=== PATIENT | male | born 1940 | race Caucasian/White ===

== ENCOUNTER 2020-02-15 11:50 | Outpatient (CLI) | payer MEDICARE, SELFPAY ==
[2020-02-15 12:54] LABS: Cholesterol 124 mg/dL (0-200); HDL Direct 34 mg/dL; Triglycerides 160 mg/dL (<150)
[2020-02-15 13:05] LABS: LDL Cholesterol Direct 63 mg/dL
[2020-02-15 13:25] LABS: Prostate Specific Antigen 1.3 ng/mL (< OR = 4.0)
== END 2020-02-15 11:51 | disposition home or self-care (01) ==
PROVIDERS: PCP Internal Medicine; Visit Provider Internal Medicine
DX: E78.2 Mixed hyperlipidemia (principal); Z12.5 Encounter for screening for malignant neoplasm of prostate; E11.9 Type 2 diabetes mellitus without complications; R79.9 Abnormal finding of blood chemistry, unspecified
CPT/HCPCS: 36415; 80061; 82542; 83036; 84153; 84443; G0103

== ENCOUNTER 2020-02-18 10:01 | Outpatient (CLI) | payer MEDICARE, SELFPAY ==
--- NOTE | ~2020-02-18 | XR_ITS ---
XR chest 2V DATE: 02/18/2020 10:34 INDICATION: Shortness of breath TECHNIQUE: PA and lateral views COMPARISON: 09/07/2016 2 view chest FINDINGS: Left-sided transvenous pacemaker device with leads overlying right atrium and right ventric le. Status post sternotomy. Heart size appears within normal limits. There is aortic calcification. No hilar or mediastinal enlar gement. No pulmonary infiltrate or consolidation, pleural effusion or pulmonary vascular congestion o r pneumothorax is detected. Degenerative spurring of the thoracic and lumbar spine. IMPRESSION: Status post sternotomy Left-sided pacemaker No active cardiopulmonary disease Reviewed, dictated and finalized at location A.
[2020-02-18 10:33] LABS: Basophils Percent Auto 0.6 % (0.2-1.2); Eosinophils Absolute Auto 0.5 K/mm3 (0-0.3); Eosinophils Percent Auto 7.5 % (0-4.4); Immature Granulocyte Absolute 0.02 K/mm3 (0.00-0.031); Immature Granulocyte Percent A 0.3 % (0-0.5); Lymphocytes Percent Auto 27.2 % (18.3-44.2); Mean Corpuscular HGB Conc 32.5 g/dl (32-36); Mean Corpuscular Hemoglobin 30.9 pg (26-34); Mean Platelet Volume 10.8 fl (7.4-10.4); Monocytes Absolute Auto 0.6 K/mm3 (0.1-0.6); Monocytes Percent Auto 8.9 % (2.6-8.5); Neutrophils Absolute Auto 3.5 K/mm3 (1.3-6.7); Neutrophils Percent Auto 55.5 % (45.5-73.1); Platelet Count Result 204 k/mm3 (150-375); Red Blood Count 4.21 M/mm3 (4.6-6.20); Red Cell Distribution Width 16.3 % (11.5-14.5); White Blood Count 6.3 K/mm3 (4.5-10.0)
[2020-02-18 11:59] LABS: Folic Acid > 20.0 ng/mL (2.76->20); Vitamin B12 > 1000.0 pg/mL (239-931)
== END 2020-02-18 10:02 | disposition home or self-care (01) ==
PROVIDERS: PCP Internal Medicine; Visit Provider Internal Medicine
DX: R06.02 Shortness of breath (principal); J44.9 Chronic obstructive pulmonary disease, unspecified; Z98.890 Other specified postprocedural states; Z95.0 Presence of cardiac pacemaker
CPT/HCPCS: 36415; 71046; 82607; 82746; 85025

== ENCOUNTER 2020-03-10 14:37 | Outpatient (CLI) | payer MEDICARE, SELFPAY ==
--- NOTE | 2020-03-11 13:13 | WPDPFTINT ---
PFT Interpretation PFT Interpretation: DOS: 03/10/2020 REQUESTING: Dr Low REASON FOR TESTING: shortness of breath, COPD PULMONARY FUNCTION TESTS Results are reproducible. Spirometry: FEV1 is 74% mildly decreased, 2.02 L. FVC is 69%, mildly reduced. FEV1% is 69%, normal for age. FFG11-59% is 49%. No bronchodilator was given. Lung volumes: TLC is 84% normal. RV/TLC is increased 45% consistent with mild air trapping. Airway resistance increased 203%. Diffusion: DLCO moderately decreased 49%. Flow volume loop: Abnormal loop with hesitation at the beginning of expiration. This caused the peak to be delayed. The peak is delayed. The inspiratory limb appears normal. IMPRESSION: Mild obstructive ventilatory impairment, mild air trapping, and mild increase in airway resistance with moderate diffusion impairment. No bronchodilator was given. The diffusion impairment is the most significant finding. No prior studies are available for comparison. The decrease in diffusion may be due to COPd or may reflect another process. Clinical correlation is recommended. Vee Abbasi MD
== END 2020-03-10 14:38 | disposition home or self-care (01) ==
PROVIDERS: PCP Internal Medicine; Visit Provider Internal Medicine
DX: R06.02 Shortness of breath (principal); J44.9 Chronic obstructive pulmonary disease, unspecified; R94.2 Abnormal results of pulmonary function studies
CPT/HCPCS: 94375; 94726; 94729

== ENCOUNTER 2020-05-06 17:21 | Emergency (ER) | payer MEDICARE, SELFPAY ==
[2020-05-06 17:29] VITALS: BP 112/94; PULSE 70; RESP 20; TEMP 36.6; O2SAT 96
--- NOTE | 2020-05-06 18:57 | ED.WOUNDLAC ---
HPI - Wound/Laceration General Chief Complaint: Wound/Laceration <SUAD Anderson Last Filed: 05/06/20 18:59> Stated Complaint: knee laceration <SUAD Anderson Last Filed: 05/06/20 18:59> Time Seen by Provider: 05/06/20 17:34 <SUAD Anderson Last Filed: 05/06/20 18:59> Source: patient and family <SUAD Anderson Last Filed: 05/06/20 18:59> Mode of arrival: ambulatory <SUAD Anderson Last Filed: 05/06/20 18:59> Limitations: no limitations <SUAD Anderson Last Filed: 05/06/20 18:59> History of Present Illness HPI narrative: Patient is a 80-year-old male who presents to emergency department with evaluation of laceration to the anterior right knee. Patient notes tetanus up-to-date patient notes mild aching pain patient accidentally cut himself with a sharp knife. Patient notes mild aching pain denies radicular symptoms or paresthesias presents after the incident no distress <SUAD Anderson Last Filed: 05/06/20 18:59> Related Data Home Medications: Home Medications Medication Instructions Recorded Confirmed aspirin 81 mg tablet,delayed 81 mg PO DAILY 08/17/19 03/17/20 release carvedilol 12.5 mg tablet 12.5 mg PO Q12H 08/17/19 03/17/20 cyanocobalamin (vitamin B-12) 1,000 mcg PO DAILY 08/17/19 03/17/20 1,000 mcg capsule folic acid 1 mg tablet 1 mg PO DAILY 08/17/19 03/17/20 hydroxyzine HCl 25 mg tablet 25 mg PO QID PRN 08/17/19 03/17/20 omega-3 fatty acids 1,000 mg 2,000 mg PO BID cap 08/17/19 03/17/20 capsule potassium chloride 10 mEq 10 meq PO DAILY 08/17/19 03/17/20 tablet,extended release simvastatin 40 mg tablet 20 mg PO DAILY tablet 08/17/19 03/17/20 polyethylene glycol 3350 17 17 gm PO DAILY 02/18/20 03/17/20 gram/dose oral powder cholecalciferol (vitamin D3) DAILY 05/06/20 [Vitamin D3] empagliflozin-metformin [Synjardy PO DAILY 05/06/20 XR] umeclidinium-vilanterol [Anoro INHALATION DAILY 05/06/20 Ellipta] <Sean Chahal PA-C - Last Filed: 05/06/20 18:59> Allergies/Adverse Reactions: Allergies Allergy/AdvReac Type Severity Reaction Status Date / Time KATLYN Inhibitors AdvReac Cough Verified 05/06/20 17:55 <Sean Chahal PA-C - Last Filed: 05/06/20 18:59> Review of Systems Review of Systems: All systems reviewed & are unremarkable except as noted in HPI and below <Sean Chahal PA-C - Last Filed: 05/06/20 18:59> [facility] Past Medical History Medical History: Medical History Abnormal finding of blood chemistry BMI 35.0-35.9,adult BMI 36.0-36.9,adult Constipation DM type 2 (diabetes mellitus, type 2) Encounter for Medicare annual wellness exam Encounter for routine adult health examination with abnormal findings Encounter for special screening examination for neoplasm of prostate Esophageal web Numbness and tingling in both hands On nursing home drug therapy Shingles SOB (shortness of breath) <Sean Chahal PA-C - Last Filed: 05/06/20 18:59> Surgical History Surgical History: Surgical History History of lumbar surgery <Sean Chahal PA-C - Last Filed: 05/06/20 18:59> Family History Family History: Family History Mother Family history of diabetes mellitus in first degree relative Father Acute myocardial infarction <Sean Chahal PA-C - Last Filed: 05/06/20 18:59> Social History Social History: Social History Smoking status: Never smoker Alcohol intake: current <Sean Chahal PA-C - Last Filed: 05/06/20 18:59> Exam Narrative: Exam Narrative: GENERAL: Well-appearing, well-nourished, and in no acute distress. HEAD: Normocephalic, atraumatic. EYES: PERRLA and EOMI. ENT: Nares
== END 2020-05-06 19:21 | disposition home or self-care (01) ==
PROVIDERS: Emergency Provider General Practice; PCP Internal Medicine
DX: S81.011A Laceration without foreign body, right knee, initial encounter (principal); Z79.899 Other long term (current) drug therapy; E11.9 Type 2 diabetes mellitus without complications; W26.0XXA Contact with knife, initial encounter
CPT/HCPCS: 12001; 99282

== ENCOUNTER 2020-07-28 13:09 | Outpatient (CLI) | payer MEDICARE, SELFPAY ==
[2020-07-28 13:35] LABS: Basophils Percent Auto 0.5 % (0.2-1.2); Eosinophils Absolute Auto 0.3 K/mm3 (0-0.3); Eosinophils Percent Auto 3.3 % (0-4.4); Hematocrit 42.4 % (42.0-52.0); Hemoglobin 13.5 g/dL (14.0-18.0); Immature Granulocyte Absolute 0.04 K/mm3 (0.00-0.031); Immature Granulocyte Percent A 0.5 % (0-0.5); Lymphocytes Absolute Auto 2.19 K/mm3 (0.9-3.2); Mean Corpuscular HGB Conc 31.8 g/dl (32-36); Mean Corpuscular Hemoglobin 30.5 pg (26-34); Mean Corpuscular Volume 95.9 fl (80-100); Mean Platelet Volume 10.1 fl (7.4-10.4); Monocytes Absolute Auto 0.8 K/mm3 (0.1-0.6); Neutrophils Absolute Auto 5.1 K/mm3 (1.3-6.7); Neutrophils Percent Auto 60.7 % (45.5-73.1); Platelet Count Result 256 k/mm3 (150-375); Red Blood Count 4.42 M/mm3 (4.6-6.20); Red Cell Distribution Width 16.3 % (11.5-14.5); White Blood Count 8.4 K/mm3 (4.5-10.0)
[2020-07-28 13:50] LABS: Alanine Aminotransferase 37 U/L (4-50); Albumin Level 4.5 g/dL (3.5-5.1); Alkaline Phosphatase 95 U/L (38-126); Anion Gap 11 mmol/L (8-16); Aspartate Amino Transferase 33 U/L (17-59); Bilirubin,Total 0.9 mg/dL (0.2-1.3); Blood Urea Nitrogen 38 mg/dL (9-20); Calcium 9.3 mg/dL (8.4-10.2); Carbon Dioxide 30 mmol/L (22-30); Chloride 101 mmol/L (98-107); Cholesterol 152 mg/dL (0-200); Estimated Glomerular Filt Rate 42; Glucose 110 mg/dL (75-110); HDL Direct 58 mg/dL; Potassium 4.5 mmol/L (3.4-5.0); Sodium 142 mmol/L (137-145); Triglycerides 135 mg/dL (<150)
[2020-07-28 14:01] LABS: LDL Cholesterol Direct 71 mg/dL
== END 2020-07-28 13:10 | disposition home or self-care (01) ==
PROVIDERS: PCP Internal Medicine; Visit Provider Internal Medicine
DX: E78.2 Mixed hyperlipidemia (principal); Z79.899 Other long term (current) drug therapy; R09.89 Other specified symptoms and signs involving the circulatory and respiratory systems
CPT/HCPCS: 36415; 80053; 80061; 83036; 85025

== ENCOUNTER 2020-08-15 11:03 | Outpatient (CLI) | payer MEDICARE, SELFPAY ==
[2020-08-15 12:04] LABS: Anion Gap 7 mmol/L (8-16); Blood Urea Nitrogen 31 mg/dL (9-20); Calcium 9.1 mg/dL (8.4-10.2); Carbon Dioxide 32 mmol/L (22-30); Chloride 105 mmol/L (98-107); Estimated Glomerular Filt Rate 45; Glucose 102 mg/dL (75-110); Potassium 4.6 mmol/L (3.4-5.0); Sodium 144 mmol/L (137-145)
== END 2020-08-15 11:04 | disposition home or self-care (01) ==
PROVIDERS: PCP Internal Medicine; Visit Provider Internal Medicine
DX: E11.9 Type 2 diabetes mellitus without complications (principal); I10 Essential (primary) hypertension; Z79.899 Other long term (current) drug therapy
CPT/HCPCS: 36415; 80048

== ENCOUNTER 2020-08-21 11:09 | Outpatient (CLI) | payer MEDICARE, SELFPAY ==
--- NOTE | ~2020-08-21 | XR_ITS ---
EXAMINATION: XR knee RT min 4V DATE: 08/21/2020 11:31 INDICATION: Right knee pain. TECHNIQUE: 4 views of right knee were obtained. COMPARISON: None. FINDINGS: There is varus angulation at the knee. No fracture. There is plate and screw fixation of ti bial diaphysis. There is severe osteoarthritis of medial compartment and mild osteoarthritis of later al and patellofemoral compartments. There is a small knee joint effusion. IMPRESSION: 1. Severe right knee osteoarthritis. 2. Small right knee joint effusion. Reviewed, dictated and finalized at location A. K ASSEMBLER
== END 2020-08-21 11:10 | disposition home or self-care (01) ==
PROVIDERS: PCP Internal Medicine; Visit Provider Internal Medicine
DX: M17.11 Unilateral primary osteoarthritis, right knee (principal); M25.461 Effusion, right knee
CPT/HCPCS: 73564

== ENCOUNTER 2020-09-04 12:25 | Outpatient (CLI) | payer MEDICARE, SELFPAY ==
--- NOTE | ~2020-09-04 | US_ITS ---
EXAMINATION: US venous doppler LE RT DATE: 09/04/2020 12:57 INDICATION: Right lower limb pain. TECHNIQUE: Grayscale ultrasound images without and with compression and Doppler ultrasound images of the right lower extremity veins were obtained. COMPARISON: None. FINDINGS: The visualized portions of right common femoral vein, profunda (deep) femoral vein, femoral vein, pop liteal vein, peroneal veins, posterior tibial veins, and greater saphenous vein outflow are patent. IMPRESSION: 1. No deep venous thrombosis. Reviewed, dictated and finalized at location A. ERTY SITE MANAGER
== END 2020-09-04 12:26 | disposition home or self-care (01) ==
PROVIDERS: PCP Internal Medicine; Visit Provider Internal Medicine
DX: M79.604 Pain in right leg (principal); M79.89 Other specified soft tissue disorders
CPT/HCPCS: 93971

== ENCOUNTER 2020-11-16 09:33 | Outpatient (CLI) | payer MEDICARE, SELFPAY ==
--- NOTE | ~2020-11-16 | US_ITS ---
US venous doppler LE RT DATE: 11/16/2020 10:36 INDICATION: Right lower extremity pain TECHNIQUE: Real-time and color flow imaging and Doppler analysis COMPARISON: 09/21/2020 venous duplex examination of the right lower extremity FINDINGS: Right greater saphenous vein is patent. There is spontaneous and phasic flow and normal augmentation and color flow signal and normal tim jyoti of the veins of the right leg. IMPRESSION: No evidence of deep venous thrombosis of right lower extremity Reviewed, dictated and finalized at Location A. Reviewed, dictated and finalized at location A. FLAT INSPECTOR
== END 2020-11-16 09:34 | disposition home or self-care (01) ==
PROVIDERS: PCP Internal Medicine; Visit Provider Orthopaedic Surgery
DX: M79.604 Pain in right leg (principal); M79.89 Other specified soft tissue disorders
CPT/HCPCS: 93971

== ENCOUNTER 2020-12-16 07:59 | Outpatient (CLI) | payer MEDICARE, SELFPAY ==
[2020-12-16 09:52] LABS: Basophils Percent Auto 0.6 % (0.2-1.2); Eosinophils Absolute Auto 0.4 K/mm3 (0-0.3); Eosinophils Percent Auto 5.7 % (0-4.4); Hematocrit 39.4 % (42.0-52.0); Hemoglobin 12.1 g/dL (14.0-18.0); Immature Granulocyte Absolute 0.01 K/mm3 (0.00-0.031); Immature Granulocyte Percent A 0.1 % (0-0.5); Lymphocytes Absolute Auto 1.87 K/mm3 (0.9-3.2); Lymphocytes Percent Auto 26.8 % (18.3-44.2); Mean Corpuscular HGB Conc 30.7 g/dl (32-36); Mean Corpuscular Hemoglobin 27.9 pg (26-34); Monocytes Absolute Auto 0.6 K/mm3 (0.1-0.6); Monocytes Percent Auto 9.2 % (2.6-8.5); Neutrophils Percent Auto 57.6 % (45.5-73.1); Platelet Count Result 248 k/mm3 (150-375); Red Blood Count 4.33 M/mm3 (4.6-6.20)
[2020-12-16 09:58] LABS: Add Urine Microscopic? YES; Appearance Urine Clear (Clear); Bilirubin Urine Negative (Negative); Blood Urine Negative (Negative); Color Urine Yellow (Yellow); Glucose Urine UA 3+ mg/dL (Negative); Ketones Urine Negative (Negative); Leukocyte Esterase Ur Negative LEU/UL (Negative); Nitrate Urine Negative (Negative); Protein Urine 1+ mg/dL (Negative); RBC Urine 0-2 /hpf (0-2); Specific Grav Ur 1.025 (1.001-1.035); Squamous Epithelial Cell Urine Rare /hpf (Few)
[2020-12-16 10:02] LABS: Albumin Level 4.2 g/dL (3.5-5.1); Anion Gap 8 mmol/L (8-16); Blood Urea Nitrogen 27 mg/dL (9-20); Carbon Dioxide 29 mmol/L (22-30); Chloride 107 mmol/L (98-107); Estimated Glomerular Filt Rate 39; Glucose 129 mg/dL (75-110); Potassium 4.2 mmol/L (3.4-5.0); Sodium 144 mmol/L (137-145); Urine Cotinine NEGATIVE
[2020-12-16 10:03] LABS: Prothrombin Time 13.8 Seconds (11.1-14.7)
[2020-12-16 10:04] LABS: Partial Thromboplastin Time 29.7 SECONDS (22.3-36.8)
[2020-12-16 10:12] LABS: Hemoglobin A1C 5.7 % (<5.7)
== END 2020-12-16 08:00 | disposition home or self-care (01) ==
LOC: ANHSURGERY 08:05
PROVIDERS: PCP Internal Medicine; Visit Provider Orthopaedic Surgery
DX: M17.10 Unilateral primary osteoarthritis, unspecified knee (principal); Z01.818 Encounter for other preprocedural examination
CPT/HCPCS: 80048; 80307; 81001; 82040; 83036; 85025; 85610; 85730; 86850; 86900; 86901; 87081

== ENCOUNTER → 2020-12-20 00:28 | Outpatient (CLI) | payer MEDICARE, SELFPAY ==
[2020-12-20 19:13] LABS: SARS-CoV-2 RNA PCR Negative
== END ==
PROVIDERS: PCP Internal Medicine; Visit Provider Orthopaedic Surgery
DX: Z01.812 Encounter for preprocedural laboratory examination (principal); Z20.822 Contact with and (suspected) exposure to COVID-19
CPT/HCPCS: C9803; U0003; U0005

== ENCOUNTER 2020-12-22 10:04 | Outpatient (CLI) | payer MEDICARE, SELFPAY ==
[2020-12-22 10:41] LABS: Add Urine Microscopic? YES; Appearance Urine Clear (Clear); Bilirubin Urine Negative (Negative); Blood Urine Negative (Negative); Color Urine Yellow (Yellow); Glucose Urine UA 3+ mg/dL (Negative); Ketones Urine Negative (Negative); Leukocyte Esterase Ur Trace LEU/UL (NEGATIVE); Nitrate Urine Negative (Negative); Protein Urine Negative (Negative); RBC Urine 0-2 /hpf (0-2); Specific Grav Ur 1.016 (1.001-1.035); Squamous Epithelial Cell Urine Rare /hpf (Few); Urobilinogen Urine Negative mg/dL (<2.0)
[2020-12-22 10:51] LABS: Albumin Level 4.2 g/dL (3.5-5.1); Anion Gap 7 mmol/L (8-16); Blood Urea Nitrogen 25 mg/dL (9-20); Calcium 8.9 mg/dL (8.4-10.2); Carbon Dioxide 28 mmol/L (22-30); Chloride 106 mmol/L (98-107); Estimated Glomerular Filt Rate 53; Glucose 127 mg/dL (75-110); Phosphorus 2.8 mg/dL (2.5-4.5); Sodium 141 mmol/L (137-145)
== END 2020-12-22 10:05 | disposition home or self-care (01) ==
PROVIDERS: PCP Internal Medicine; Referring Provider Internal Medicine; Visit Provider Internal Medicine Nephrology
DX: N18.31 Chronic kidney disease, stage 3a (principal)
CPT/HCPCS: 36415; 80069; 81001

== ENCOUNTER 2020-12-23 00:05 | Day surgery (SDC) | payer MEDICARE, SELFPAY ==
[2020-12-16 08:49] VITALS: BMI 37.0
--- NOTE | 2020-12-22 09:32 | WPDANESEPPF ---
Anes - Initial Pre Proc Eval Procedure: Operation Date: 12/23/20 07:30 Proposed Procedures p Right Total Knee Arthroplasty - William Oshea MD Date/Time: 12/22/20 09:32 Surgeon: William Oshea MD Pre Op Diagnosis: Right Knee DJD Patient Data Age: 80 Gender: M Height: 1.74 m Weight: 112 kg Allergies Allergy/AdvReac Type Severity Reaction Status Date / Time KATLYN Inhibitors AdvReac Mild Cough Verified 12/23/20 06:40 Home Medications Medication Instructions Recorded Confirmed Type aspirin 81 mg tablet,delayed 81 mg PO QAM 08/17/19 12/23/20 History release omega-3 fatty acids 1,000 mg 2,000 mg PO BID cap 08/17/19 12/23/20 History capsule cholecalciferol (vitamin D3) 125 mcg QAM 05/06/20 12/23/20 History [Vitamin D3] fluticasone fur. 100 mcg-umeclid 1 inh INHALATION Q24H #60 ea 08/15/20 12/23/20 Rx 62.5 mcg-vilant 25 mcg inhalat.powder carvedilol 25 mg tablet 25 mg PO Q12H #180 tablet 09/04/20 12/23/20 Rx omeprazole 40 mg capsule,delayed 40 mg PO QAM cap 09/04/20 12/23/20 History release jxjcrjxi-hjp-edbot acid 0.4 1 tablet PO DAILY 09/18/20 12/23/20 History mg-lycopene 300 mcg-lutein 250 mcg tablet sildenafil 100 mg tablet See Rx Instructions .ROUTE 11/03/20 12/23/20 Rx .COMPLEX #8 tablet furosemide 40 mg tablet 40 mg PO QAM #90 tablet 11/28/20 12/23/20 Rx canagliflozin 100 mg tablet 100 mg PO DAILY 12/15/20 12/23/20 History metformin 500 mg tablet 500 mg PO QAM 12/15/20 12/23/20 History allopurinol 150 mg PO QAM 12/16/20 12/23/20 History losartan 100 mg QAM 12/16/20 12/23/20 History potassium citrate 1,620 mg PO QAM 12/16/20 12/23/20 History simvastatin 20 mg PO QAM 12/16/20 12/23/20 History tamsulosin 0.4 mg QAM 12/16/20 12/23/20 History tramadol 50 mg tablet 50 mg PO Q6H PRN #60 tablet 12/18/20 12/23/20 Rx Patient hx anesthesia problems: none Family hx anesthesia problems: none [facility] Past Medical History Medical History Abnormal finding of blood chemistry BMI 34.0-34.9,adult BMI 35.0-35.9,adult BMI 35.0-35.9,adult BMI 36.0-36.9,adult CKD (chronic kidney disease) Claustrophobia Constipation Degenerative joint disease of knee DM type 2 (diabetes mellitus, type 2) Edema of right lower extremity Encounter for long-term (current) use of other medications Encounter for Medicare annual wellness exam Encounter for routine adult health examination with abnormal findings Encounter for special screening examination for neoplasm of prostate Erectile dysfunction Esophageal web Follow up Hearing loss Knee effusion, right Numbness and tingling in both hands On nursing home drug therapy Pain and swelling of right lower extremity Right knee pain Shingles SOB (shortness of breath) Surgical History Surgical History (Updated 12/22/20 @ 09:45 by Kumar Cunha DO) History of lumbar surgery History of permanent cardiac pacemaker placement Hx of CABG x4, 2003 Family History Family History Mother Family history of diabetes mellitus in first degree relative Father Acute myocardial infarction Other Diabetes mellitus Heart disease Hypertension Social History Social History Smoking packs per day: 2 Smoking cigarettes per day: 40.0 Years smoked: 10 Smoking pack-years: 20.00 Smoking status: Former smoker Tobacco type: cigarettes Second hand tobacco smoke exposure: No Additional smoking assessment comments: Quit @ 43 yrs old. Alcohol intake: former Alcohol use details: STOPPED DRINKING 2013 Substance use: never Substance use type: does not use Living arrangements: with friend(s) Gender identity (if verbalized by the patient): Male Spiritual care concerns: No Anes - Eval Final PreProcedure Day of Procedure 12/22/20 09:32 Patient weight: obese Hea
--- NOTE | 2020-12-22 13:06 | WPDANESPNB ---
Anes - Peripheral Nerve Block Date/Time: 12/22/20 13:06 I have discussed with the patient/family/POA the placement of a peripheral nerve block for post-operative pain management, including associated risks, benefits, complications, and side effects. Alternative methods of post-operative analgesia were detailed. Questions were solicited and answers provided to the satisfaction of the patient/family/POA. Time-Out: A pre-procedural Time-Out was completed immediately before starting the procedure and confirmed: Patient Identification, Site, Procedure, Patient Position and the Availability of Requisite Equipment. Clinical Indications: Acute post-operative pain management requested by the operative surgeon. Nerve Block Insertion Note Anes-nerve block: adductor canal right Patient position: supine Skin prep: chlorhexidine Needle: 22 gauge, stimulating, insulated echogenic needle. Needle length: 80 mm Technique: ultrasound Injectate: bupivacaine 0.5% with epi 5 mcg/ml (30cc - no epi) Observations: tolerated well Complications: none Procedure start time:: 729 Procedure end time:: 732
[2020-12-23] VITALS (12 sets, daily range): BP systolic 129–162; BP diastolic 60–82; PULSE 8–86; RESP 11–20; TEMP 36.3–37.1; O2SAT 93–99
--- NOTE | ~2020-12-23 | XR_ITS ---
EXAMINATION: XR knee RT 2V DATE: 12/23/2020 11:29 INDICATION: Postoperative evaluation following right total knee arthroplasty. TECHNIQUE: Anteroposterior and lateral views of the right knee were obtained. COMPARISON: None. FINDINGS: Right total knee arthroplasty without patellar resurfacing appears well seated and in near anatomic a lignment. No fractures identified. Skin jazmín and expected postoperative subcutaneous and intra-ar ticular gas. Atherosclerotic calcific a cyst along the distal femoral artery. IMPRESSION: 1. Right total knee arthroplasty, negative for postoperative purposes. Reviewed, dictated and finalized at location A.
[2020-12-23] MEDS: ACETAMINOPHEN 500 MG TABLET 1000 MG PO (06:52)
[2020-12-23] MEDS: LACTATED RINGERS 1,000 ML 30 ML IV CONT ×2 (07:03→11:13)
[2020-12-23] MEDS: TRANEXAMIC ACID 1,000MG/ISO100 1,000 MG/100 ML BAG 200 MG IVPB (07:04)
[2020-12-23 07:08] LABS: Glucose Point of Care 136 (65-105)
--- NOTE | 2020-12-23 07:23 | WPDHPUPDATE1 ---
History and Physical Update Update Date/Time: 12/23/20 07:23 History and Physical has been reviewed, including an updated exam of the patient. There are NO changes in the patient's condition. Risks, benefits, and alternatives have been discussed and questions answered. Patient agrees to proceed with procedure.
[2020-12-23] MEDS: ceFAZolin 2 GM/D5W 50 ML 2 GM/50 ML BAG IVPB ×3 (07:43→23:00)
[2020-12-23] MEDS: GENTAMICIN BONE CEMENT REFOBACIN 1 EACH TOPICAL (09:27)
--- NOTE | 2020-12-23 11:08 | PM.PROC ---
Procedure Note - Detailed Date of procedure: 12/23/20 Pre-op diagnosis: Right Knee DJD Post-op diagnosis: same Procedure performed: R TKA Description of procedure: THE RIGHT KNEE WAS PREPPED AND DRAPED IN THE STERILE FASHION. A MIDLINE SKIN INCISION WAS MADE. A MEDIAL PARAPATELLAR ARTHROTOMY WAS MADE. THE PATELLA WAS EVERTED. THERE WAS TRICOMPARTMENT DJD. THERE WAS MINIMAL PATELLA DJD. AN INTRAMEDULLARY SUNDAY WAS PLACED IN THE FEMUR. A DISTAL FEMORAL CUT WAS MADE IN 5 DEGREES OF VALGUS REMOVING APPROXIMATELY 9 MM OF BONE FROM THE DISTAL FEMUR. THE FEMUR WAS SIZED TO 70. A 70 FEMORAL CUTTING BLOCK WAS PLACED IN 3 DEGREES OF EXTERNAL ROTATION AND IN ALIGNMENT WITH LUIS'S LINE AND THE TRANSEPICONDYLAR AXIS. ANTERIOR POSTERIOR AND CHAMFER CUTS WERE MADE. THE CUTS WERE EXCELLENT. NEXT AN INTRAMEDULLARY CUTTING GUIDE WAS PLACED IN THE TIBIA. A TRANS TIBIAL CUT WAS MADE ALONG THE LONG AXIS OF THE TIBIA. APPROXIMATELY 10 MM OF BONE WAS REMOVED FROM THE HIGH SIDE OF THE TIBIA. THE TIBIA WAS THEN PLANED TO A SMOOTH SURFACE. POSTERIOR FEMORAL OSTEOPHYTES WERE REMOVED FROM THE FEMORAL CONDYLES. An 83 TIBIAL TRIAL WAS PLACED IN ALIGNMENT WITH THE 1/3 MEDIAL ASPECT OF THE TIBIAL TUBERCLE. THEN A 70 FEMORAL TRIAL COMPONENT WAS PLACED. BOTH HAD EXCELLENT FITS. EVENTUALLY A 10MM POLYETHYLENE TRIAL COMPONENT WAS PLACED. THE KNEE WAS TAKEN THROUGH A RANGE OF MOTION. THE KNEE CAME OUT TO FULL EXTENSION. THERE WAS NO ABNORMAL TILT TO THE PATELLA. THERE WAS GOOD A/P AND VARUS/VALGUS STABILITY. THERE WAS NO EXCESSIVE ROLL BACK WITH FLEXION. THE TRIAL COMPONENTS WERE REMOVED. THEN A 70 FEMORAL COMPONENT AND 83 TIBIAL COMPONENT WITH A 10 CR POLYETHYLENE COMPONENT WERE CEMENTED INTO PLACE. THE IMPLANTS WERE FLUSH WITH THE CUT BONE SURFACES. THE KNEE WAS TAKEN THROUGH A ROM AGAIN AND FOUND TO BE STABLE WITH NO PATELLA TILT NO EXCESSIVE ROLL BACK WITH FLEXION AND GOOD STABILITY WITH COMPLETE AND FULL EXTENSION. THE KNEE WAS IRRIGATED WITH STERILE BETADINE AND WATER FOR ABOUT 3 MINUTES. THE BLEEDERS WERE CAUTERIZED. THE ARTHROTOMY WAS REPAIRED WITH NUMBER 1 VICRYL. THE SUB CUTANEOUS LAYER WITH 2-0 VICRYL AND THE SKIN WITH SARAH BETH. THE WOUND WAS WASHED AND A STERILE DRESSING WAS APPLIED. PATIENT WAS EXTUBATED. Anesthesia: GETA Surgeon: William Oshea MD Estimated blood loss (mL): 100 Complications: No immediate complications Condition: stable Disposition: PACU
--- NOTE | 2020-12-23 11:42 | SUR.PHASEI ---
PORTABLE XRAY DONE OF RIGHT KNEE.
--- NOTE | 2020-12-23 12:36 | ADMGEN ---
This patient, Drew Pak, was admitted to 2 Medical Room 249-01. Patient/family oriented to hospital policies and general routines including ID bracelet, bed and alarms, visiting hours, pain management, procedures, bathroom and other care routines, personal items, smoking policy, room service/diet, and visiting hours. Information on how to activate the Rapid Response Team has been discussed. Patient/Family are encouraged to report perceived risks to care and to ask questions if they do not understand what they are told or what they should do.
[2020-12-23 13:51] LABS: Glucose Point of Care 134 (65-105)
--- NOTE | 2020-12-23 14:00 | WPDCN ---
Assessment and Plan Assessment and plan (1) Degenerative joint disease of right knee: Code(s): M17.11 - Unilateral primary osteoarthritis, right knee Status: Acute Assessment and Plan: Postoperative day 0, status post right total knee arthroplasty. Wound care and pain control will be deferred to Dr. Oshea as well as DVT prophylaxis. (2) Essential hypertension: Code(s): I10 - Essential (primary) hypertension Status: Acute Assessment and Plan: Blood pressures were reviewed postoperatively and they have been a bit high, in the 140s to 160 systolic. Likely these are elevated postoperatively due to pain and missed antihypertensives this morning. Resume antihypertensives and monitor blood pressures closely. (3) Mixed hyperlipidemia: Code(s): E78.2 - Mixed hyperlipidemia Status: Acute Assessment and Plan: Continue statin check LFTs. (4) Coronary artery disease: Code(s): I25.10 - Atherosclerotic heart disease of [place] coronary artery without angina pectoris Status: Acute Assessment and Plan: Status post three-vessel bypass in 2003. No acute issues. Continue statin, aspirin, and beta-tri. (5) Type 2 diabetes mellitus: Code(s): E11.9 - Type 2 diabetes mellitus without complications Status: Acute Assessment and Plan: Well controlled with a recent hemoglobin A1c of 5.7%. Continue Farxiga and metformin. Initiate sliding scale insulin, Accu-Cheks, and hypoglycemic protocol. (6) Diastolic congestive heart failure: Code(s): I50.30 - Unspecified diastolic (congestive) heart failure Status: Acute Assessment and Plan: The patient appears euvolemic at this time. Avoid over-hydration. Monitor volume status with I/O and daily weights. (7) Benign prostatic hyperplasia: Code(s): N40.0 - Benign prostatic hyperplasia without lower urinary tract symptoms Status: Acute Assessment and Plan: No issues at this time. Continue tamsulosin. Monitor for postop retention. (8) Gastroesophageal reflux disease: Code(s): K21.9 - Gastro-esophageal reflux disease without esophagitis Status: Acute Assessment and Plan: Continue omeprazole. Additional Plan Thank you for allowing us to participate in this patient's care. Please do not hesitate to contact us with any questions. Supervising physician for this medical consultation is Dr. Sara Solares. HPI Data of Consult Date/Time: 12/23/20 14:00 Requesting Physician: William Oshea MD Primary Care Provider: Say Low MD Consult Narrative Narrative: This is a 80-year-old male whom the hospitalist service has been consulted for management of his medical conditions, status post right total knee arthroplasty. His history significant for degenerative joint disease, coronary artery disease status post CABG, diastolic congestive heart failure, hypertension, dyslipidemia, well controlled yga-ssuencb-kzeauetty diabetes, GERD, and benign prostatic hyperplasia. Sometime last year the patient had 2 lumbar surgeries not long thereafter he began experiencing right knee pain. His arthritis progressed quite quickly over the last 3 to 4 months and unfortunately conservative outpatient treatment has not provided him with longstanding relief and thus he elected for replacement today. His surgery was performed under general anesthesia with no immediate complications documented an estimated blood loss of 100 milliliters. Patient tells me that he received a nerve block and that his pain has been well controlled. Currently rating at 3/10 mainly along the incision. He has been up to the chair and really is only having pain with bending the knee. He denies paresthesias, skin color, temperature changes distal to the surgical site. No postoperative fever, chills, sweats, chest pain,
[2020-12-23] MEDS: oxyCODONE/ACETAMINOPHEN (*CRX) 5-325 MG TABLET 1 TABLET PO (15:58)
[2020-12-23] MEDS: CELECOXIB 200 MG CAPSULE PO (15:58)
[2020-12-23] MEDS: DOCUSATE SODIUM 100 MG CAPSULE PO (15:58)
[2020-12-23] MEDS: carvediloL 25 MG TABLET PO (20:32)
[2020-12-24] MEDS: oxyCODONE/ACETAMINOPHEN (*CRX) 5-325 MG TABLET 1 TABLET PO ×2 (00:40→07:42)
[2020-12-24 02:07] VITALS: BP 166/66; PULSE 105; RESP 16; TEMP 36.7; O2SAT 92
[2020-12-24 05:24] VITALS: BP 132/64; PULSE 66; RESP 16; TEMP 36.3; O2SAT 96
[2020-12-24 05:44] LABS: Basophils Percent Auto 0.2 % (0.2-1.2); Eosinophils Percent Auto 0.2 % (0-4.4); Hematocrit 35.8 % (42.0-52.0); Hemoglobin 11.2 g/dL (14.0-18.0); Immature Granulocyte Absolute 0.05 K/mm3 (0.00-0.031); Immature Granulocyte Percent A 0.5 % (0-0.5); Lymphocytes Absolute Auto 1.42 K/mm3 (0.9-3.2); Lymphocytes Percent Auto 12.9 % (18.3-44.2); Mean Corpuscular HGB Conc 31.3 g/dl (32-36); Mean Corpuscular Hemoglobin 28.2 pg (26-34); Mean Corpuscular Volume 90.2 fl (80-100); Mean Platelet Volume 10.6 fl (7.4-10.4); Monocytes Absolute Auto 1.2 K/mm3 (0.1-0.6); Monocytes Percent Auto 11.3 % (2.6-8.5); Neutrophils Absolute Auto 8.2 K/mm3 (1.3-6.7); Neutrophils Percent Auto 74.9 % (45.5-73.1); Platelet Count Result 210 k/mm3 (150-375); Red Blood Count 3.97 M/mm3 (4.6-6.20); Red Cell Distribution Width 15.6 % (11.5-14.5)
[2020-12-24 05:59] LABS: Alanine Aminotransferase 17 U/L (4-50); Albumin Level 3.7 g/dL (3.5-5.1); Alkaline Phosphatase 62 U/L (38-126); Anion Gap 6 mmol/L (8-16); Aspartate Amino Transferase 25 U/L (17-59); Bilirubin,Total 0.8 mg/dL (0.2-1.3); Blood Urea Nitrogen 23 mg/dL (9-20); Calcium 8.6 mg/dL (8.4-10.2); Carbon Dioxide 27 mmol/L (22-30); Chloride 104 mmol/L (98-107); Estimated CRCL calculation 50 ml/min; Estimated Glomerular Filt Rate 53; Glucose 131 mg/dL (75-110); Magnesium 1.9 mg/dL (1.6-2.3); Potassium 3.8 mmol/L (3.4-5.0); Sodium 137 mmol/L (137-145)
[2020-12-24] MEDS: ceFAZolin 2 GM/D5W 50 ML 2 GM/50 ML BAG IVPB (06:47)
--- NOTE | 2020-12-24 07:49 | P.PNAN_ITS ---
Anes - Prog Note Post-Op Date/Time: 12/24/20 07:49 Cardiovascular status: normal Respiratory status: normal Airway patency: baseline Mental status: baseline Post-Op hydration status: normal Vital Signs: Last Vital Signs Temp 97.3 F L 12/24/20 05:24 Pulse 66 12/24/20 05:24 Resp 16 12/24/20 05:24 BP 132/64 12/24/20 05:24 Pulse Ox 96 12/24/20 05:24 Pain Score (VAS): 10/12 I/O: Intake & Output 12/23/20 12/23/20 12/24/20 15:59 23:59 07:59 Intake Total 1750 600 300 Output Total 450 750 Balance 1750 150 -450 Laboratory Tests 12/24/20 05:18 12/24/20 05:18 12/23/20 12/24/20 12/24/20 11:30 05:18 05:18 WBC 11.0 H RBC 3.97 L Hgb 11.2 L Hct 35.8 L MCV 90.2 MCH 28.2 MCHC 31.3 L RDW 15.6 H Plt Count 210 MPV 10.6 H Immature Gran % (Auto) 0.5 Neut % (Auto) 74.9 H Lymph % (Auto) 12.9 L [place] % (Auto) 11.3 H Eos % (Auto) 0.2 Baso % (Auto) 0.2 Lymph # (Auto) 1.42 [place] # (Auto) 1.2 H Eos # (Auto) 0.0 Baso # (Auto) 0.0 Abs Immat Gran (auto) 0.05 H Absolute Neuts (auto) 8.2 H Absolute Nucleated RBC 0.0 Nucleated RBC % 0.0 Sodium 137 Potassium 3.8 Chloride 104 Carbon Dioxide 27 Anion Gap 6 L BUN 23 H Creatinine 1.30 Estim Creat Clear Calc 50 Estimated GFR 53 L Glucose 131 H POC Capillary Glucose 134 H Calcium 8.6 Magnesium 1.9 Total Bilirubin 0.8 Direct Bilirubin 0.0 AST 25 ALT 17 Alkaline Phosphatase 62 Total Protein 6.0 L Albumin 3.7 Post-procedural complaints: none Patient Feedback: Patient satisfied with anesthetic care.
[2020-12-24] MEDS: CHOLECALCIFEROL 1,000 UNITS TABLET 5000 UNITS PO (08:02)
[2020-12-24] MEDS: FUROSEMIDE 40 MG TABLET PO (08:03)
[2020-12-24] MEDS: CELECOXIB 200 MG CAPSULE PO (08:03)
[2020-12-24] MEDS: CANAGLIFLOZIN 100 MG TABLET PO (08:03)
[2020-12-24] MEDS: ASPIRIN 325 MG ENTERIC TABLET 650 MG PO (08:03)
[2020-12-24] MEDS: SIMVASTATIN 20 MG TABLET PO (08:04)
[2020-12-24] MEDS: carvediloL 25 MG TABLET PO (08:04)
[2020-12-24] MEDS: DOCUSATE SODIUM 100 MG CAPSULE PO (08:04)
[2020-12-24] MEDS: allopurinoL 150 MG TABLET PO (08:04)
[2020-12-24] MEDS: metFORMIN HCL 500 MG TABLET PO (08:04)
[2020-12-24] MEDS: LOSARTAN POTASSIUM 100 MG TABLET PO (08:04)
[2020-12-24] MEDS: PANTOPRAZOLE 40 MG TABLET PO (08:04)
[2020-12-24] MEDS: TAMSULOSIN HCL 0.4 MG CAPSULE PO (08:04)
[2020-12-24] MEDS: FLUTICASONE/UMECLIDIN/VILANTER 100-62.5-25 MCG ELLIPTA 1 PUFF INHALATION (08:05)
[2020-12-24 09:54] VITALS: O2SAT 94
[2020-12-24 10:00] VITALS: BP 112/61; PULSE 68; RESP 16; TEMP 37.2; O2SAT 92
--- NOTE | 2020-12-24 11:17 | PM.IMPN ---
Subjective Date/time seen: 12/24/20 11:17 Review of Systems Review of Systems: Narrative: Objective Data Vital Signs Vital Signs: Vital Signs - 24 hr 12/23/20 11:25 12/23/20 11:40 12/23/20 11:55 Temperature Pulse Rate 79 77 76 Respiratory Rate 11 L 12 20 Blood Pressure 162/72 H 150/70 H 153/70 H Pulse Oximetry 99 95 96 12/23/20 12:10 12/23/20 12:40 12/23/20 12:55 Temperature 97.5 F L 97.6 F 97.5 F L Pulse Rate 71 77 79 Respiratory Rate 11 L 12 12 Blood Pressure 148/71 H 129/82 154/65 H Pulse Oximetry 96 93 93 12/23/20 13:25 12/23/20 14:25 12/23/20 20:32 Temperature 98.7 F 97.6 F Pulse Rate 85 86 80 Respiratory Rate 18 12 Blood Pressure 142/71 H 140/69 Pulse Oximetry 93 95 12/23/20 22:00 12/24/20 02:07 12/24/20 05:24 Temperature 97.4 F L 98.0 F 97.3 F L Pulse Rate 8 L 105 H 66 Respiratory Rate 16 16 16 Blood Pressure 133/68 166/66 H 132/64 Pulse Oximetry 97 92 96 12/24/20 09:54 12/24/20 10:00 Temperature 99.0 F Pulse Rate 68 Respiratory Rate 16 Blood Pressure 112/61 Pulse Oximetry 94 92 Intake/Output Intake/Output: Intake & Output 12/21/20 12/22/20 12/23/20 12/24/20 23:59 23:59 23:59 23:59 Intake Total 2450 540 Output Total 450 750 Balance 1999 - Meds/Results Medications: Active Medications Generic Name Dose Route Start Last Admin Trade Name Freq PRN Reason Stop Dose Admin Acetaminophen 1,000 mg 12/23/20 12:22 Acetaminophen 500 Mg Tablet PO Q6H PRN Pain Rated 1-3 Allopurinol 150 mg 12/24/20 09:00 12/24/20 08:04 Allopurinol 150 Mg Tablet PO 150 mg QAM INGRID Administration Aspirin 650 mg 12/24/20 09:00 12/24/20 08:03 Aspirin 325 Mg Enteric Tablet PO 650 mg DAILY INGRID Administration Canagliflozin 100 mg 12/24/20 09:00 12/24/20 08:03 Canagliflozin 100 Mg Tablet PO 100 mg DAILY INGRID Administration Carvedilol 25 mg 12/23/20 21:00 12/24/20 08:04 Carvedilol 25 Mg Tablet PO 25 mg Q12HR INGRID Administration Celecoxib 200 mg 12/23/20 17:00 12/24/20 08:03 Celecoxib 200 Mg Capsule PO 200 mg BIDWM INGRID Administration Diazepam 5 mg 12/23/20 12:22 Diazepam (*Crx) 5 Mg Tablet PO Q8H PRN Spasms Diphenhydramine HCl 25 mg 12/23/20 12:22 Diphenhydramine Hcl Inj 50 Mg/Ml Vial IV PUSH Q6H PRN Itching Docusate Sodium 100 mg 12/23/20 17:00 12/24/20 08:04 Docusate Sodium 100 Mg Capsule PO 100 mg BID INGRID Administration Fluticasone/Umeclidinium/Vilanterol 1 puff 12/24/20 08:00 12/24/20 08:05 Fluticasone/Umeclidin/Vilanter 100-62.5-25 Mcg Ellipta INHALATION 1 puff DAILY@0800 INGRID Administration Furosemide 40 mg 12/24/20 09:00 12/24/20 08:03 Furosemide 40 Mg Tablet PO 40 mg QAM INGRID Administration Losartan Potassium 100 mg 12/24/20 09:00 12/24/20 08:04 Losartan Potassium 100 Mg Tablet PO 100 mg QAM INGRID Administration Metformin HCl 500 mg 12/24/20 08:00 12/24/20 08:04 Metformin Hcl 500 Mg Tablet PO 500 mg DAILY@0800 INGRID Administration Naloxone HCl 0.1 mg 12/23/20 12:22 Naloxone Hcl 0.4 Mg/Ml Vial IV PUSH Q2M PRN Opiate Reversal Ondansetron HCl 4 mg 12/23/20 12:22 Ondansetron Inj 4 Mg/2 Ml Vial IV PUSH Q4H PRN Nausea And Vomiting Oxycodone HCl 7.5 mg 12/23/20 12:22 Oxycodone Hcl (*Crx) 2.5 Mg Tab Ir PO Q4H PRN Pain Rated 7-10 Oxycodone/Acetaminophen 1 tablet 12/23/20 12:22 12/24/20 07:42 Oxycodone/Acetaminophen (*Crx) 5-325 Mg Tablet PO 1 tablet Q4H PRN Administration Pain Rated 4-6 Pantoprazole Sodium 40 mg 12/24/20 09:00 12/24/20 08:04 Pantoprazole 40 Mg Tablet PO 40 mg QAM INGRID Administration Simvastatin 20 mg 12/24/20 09:00 12/24/20 08:04 Simvastatin 20 Mg Tablet PO 20 mg QAM INGRID Administration Tamsulosin HCl 0.4 mg 12/24/20 09:00 12/24/20 08:04 Tamsulosin Hcl 0.4 Mg Capsule PO 0.4 mg QAM INGRID Administration Vit
--- NOTE | 2020-12-24 13:18 | PM.PNORT ---
Progress Note: A&P Additional Plan POD 1 DOING WELL WITH PT AND PAIN CONTROL. HE WOULD LIKE TO GO HOME TODAY. MEDICINE IS OK WITH THIS WELL. HE WILL F/U IN 3 WEEKS Subjective Subjective Date/Time Seen: 12/24/20 13:18 POD 1 DOING WELL. PAIN CONTROLLED. DOING WELL WITH PT. 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 [place] INTACT NEG HOMANS SIGN, CALF SOFT NON TENDER Objective Data Vital Signs Vital Signs: Vital Signs - 24 hr 12/23/20 13:25 12/23/20 14:25 12/23/20 20:32 Temperature 37.1 C 36.4 C Pulse Rate 85 86 80 Respiratory Rate 18 12 Blood Pressure 142/71 H 140/69 Pulse Oximetry 93 95 12/23/20 22:00 12/24/20 02:07 12/24/20 05:24 Temperature 36.3 C L 36.7 C 36.3 C L Pulse Rate 8 L 105 H 66 Respiratory Rate 16 16 16 Blood Pressure 133/68 166/66 H 132/64 Pulse Oximetry 97 92 96 12/24/20 09:54 12/24/20 10:00 Temperature 37.2 C Pulse Rate 68 Respiratory Rate 16 Blood Pressure 112/61 Pulse Oximetry 94 92 Intake/Output Intake/Output: Intake & Output 12/21/20 12/22/20 12/23/20 12/24/20 23:59 23:59 23:59 23:59 Intake Total 2450 540 Output Total 450 750 Balance 1999 - Meds/Results Medications: Active Medications Generic Name Dose Route Start Last Admin Trade Name Freq PRN Reason Stop Dose Admin Acetaminophen 1,000 mg 12/23/20 12:22 Acetaminophen 500 Mg Tablet PO Q6H PRN Pain Rated 1-3 Allopurinol 150 mg 12/24/20 09:00 12/24/20 08:04 Allopurinol 150 Mg Tablet PO 150 mg QAM INGRID Administration Aspirin 650 mg 12/24/20 09:00 12/24/20 08:03 Aspirin 325 Mg Enteric Tablet PO 650 mg DAILY INGRID Administration Canagliflozin 100 mg 12/24/20 09:00 12/24/20 08:03 Canagliflozin 100 Mg Tablet PO 100 mg DAILY INGRID Administration Carvedilol 25 mg 12/23/20 21:00 12/24/20 08:04 Carvedilol 25 Mg Tablet PO 25 mg Q12HR INGRID Administration Celecoxib 200 mg 12/23/20 17:00 12/24/20 08:03 Celecoxib 200 Mg Capsule PO 200 mg BIDWM INGRID Administration Diazepam 5 mg 12/23/20 12:22 Diazepam (*Crx) 5 Mg Tablet PO Q8H PRN Spasms Diphenhydramine HCl 25 mg 12/23/20 12:22 Diphenhydramine Hcl Inj 50 Mg/Ml Vial IV PUSH Q6H PRN Itching Docusate Sodium 100 mg 12/23/20 17:00 12/24/20 08:04 Docusate Sodium 100 Mg Capsule PO 100 mg BID INGRID Administration Fluticasone/Umeclidinium/Vilanterol 1 puff 12/24/20 08:00 12/24/20 08:05 Fluticasone/Umeclidin/Vilanter 100-62.5-25 Mcg Ellipta INHALATION 1 puff DAILY@0800 INGRID Administration Furosemide 40 mg 12/24/20 09:00 12/24/20 08:03 Furosemide 40 Mg Tablet PO 40 mg QAM INGRID Administration Losartan Potassium 100 mg 12/24/20 09:00 12/24/20 08:04 Losartan Potassium 100 Mg Tablet PO 100 mg QAM INGRID Administration Metformin HCl 500 mg 12/24/20 08:00 12/24/20 08:04 Metformin Hcl 500 Mg Tablet PO 500 mg DAILY@0800 INGRID Administration Naloxone HCl 0.1 mg 12/23/20 12:22 Naloxone Hcl 0.4 Mg/Ml Vial IV PUSH Q2M PRN Opiate Reversal Ondansetron HCl 4 mg 12/23/20 12:22 Ondansetron Inj 4 Mg/2 Ml Vial IV PUSH Q4H PRN Nausea And Vomiting Oxycodone HCl 7.5 mg 12/23/20 12:22 Oxycodone Hcl (*Crx) 2.5 Mg Tab Ir PO Q4H PRN Pain Rated 7-10 Oxycodone/Acetaminophen 1 tablet 12/23/20 12:22 12/24/20 07:42 Oxycodone/Acetaminophen (*Crx) 5-325 Mg Tablet PO 1 tablet Q4H PRN Administration Pain Rated 4-6 Pantoprazole Sodium 40 mg 12/24/20 09:00 12/24/20 08:04 Pantoprazole 40 Mg Tablet PO 40 mg QAM INGRID Administration Simvastatin 20 mg 12/24/20 09:00 12/24/20 08:04 Simvastatin 20 Mg Tablet PO 20 mg QAM INGRID Administration Tamsulosin HCl 0.4 mg 12/24/20 09:00 12/24/20 08:04 Tamsulosin Hcl 0.4 Mg Capsule PO 0.4 mg QAM INGRID Administration Vitamin D 5,000 units 12/24/20 09:00 12/24/20 08:02 Cholecalciferol 1,000 Units Tab
--- NOTE | 2020-12-24 13:23 | PM.DS ---
DS: Admitting Diagnosis Admitting Diagnosis Admitting Diagnosis: RIGHT KNEE DJD DS: Discharge Diagnosis Discharge Diagnosis (1) Degenerative joint disease of right knee: Code(s): M17.11 - Unilateral primary osteoarthritis, right knee Status: Acute Assessment and Plan: DC HOME AND F/U IN 3 WEEKS DS: Summary Hospital Course Reason for hospitalization: RIGHT TKA Hospital Course: S/P RIGHT TKA. STABLE COURSE. EATING AND DRINKING WELL. PAIN WELL CONTROLLED. NO EVIDENCE OF THROMBOEMBOLIC DISEASE, AMBULATING WELL WITH PT. HE WILL BE DISCHARGED TO HOME WITH HOME PT. ASA 325 2 TABS PER DAY FOR DVT PROPHYLAXIS Time spent discussing smoking cessation with patient: 3 to 10 minutes Status at Discharge Cognitive/behavioral status at discharge: STABLE Functional status at discharge: uses cane/walker Overall status at discharge: patient is progressing back to baseline Time Spent with Patient Time attestation: Total time spent providing and/or coordinating discharge services: Time spent: Greater than 30 minutes Specific discharge activities: WBAT, PT AT HOME DS: Data Data Completed and Pending Labs on day of discharge: Labs from last 24 hours 12/24/20 12/24/20 12/23/20 05:18 05:18 11:30 WBC 11.0 H RBC 3.97 L Hgb 11.2 L Hct 35.8 L MCV 90.2 MCH 28.2 MCHC 31.3 L RDW 15.6 H Plt Count 210 MPV 10.6 H Immature Gran % (Auto) 0.5 Neut % (Auto) 74.9 H Lymph % (Auto) 12.9 L Stephenson % (Auto) 11.3 H Eos % (Auto) 0.2 Baso % (Auto) 0.2 Lymph # (Auto) 1.42 Stephenson # (Auto) 1.2 H Eos # (Auto) 0.0 Baso # (Auto) 0.0 Abs Immat Gran (auto) 0.05 H Absolute Neuts (auto) 8.2 H Absolute Nucleated RBC 0.0 Nucleated RBC % 0.0 Sodium 137 Potassium 3.8 Chloride 104 Carbon Dioxide 27 Anion Gap 6 L BUN 23 H Creatinine 1.30 Estim Creat Clear Calc 50 Estimated GFR 53 L Glucose 131 H POC Capillary Glucose 134 H Calcium 8.6 Magnesium 1.9 Total Bilirubin 0.8 Direct Bilirubin 0.0 AST 25 ALT 17 Alkaline Phosphatase 62 Total Protein 6.0 L Albumin 3.7 Discharge Plan Discharge Patient Disposition: Home Health Service Discharge Instructions: Per Care Coordination, pt to discharge with [facility] ([phone]) for [place] and [place] [facility]. Post Op Total Knee Replacement Instructions Dr. William Oshea [phone] ?Your dressing will be changed prior to your discharge. You will be sent home with one additional dressing to be changed in 5 days by the home health RN. Your jazmín will be removed on the 14th day after surgery and steri-strips will be placed. ?You may shower with your dressing but do not submerge in a bath tub. ?Do not drive or operate machinery until you are released by Dr. Oshea. ?Do not walk without a walker for any reason until you are released by Dr. Oshea. ?Continue to use your ice machine. Please use a towel or pillow case to protect your skin before applying your ice machine. ?Do NOT place a pillow under your knee. You may use a pillow from the calf down if needed. ?You may begin use of your CPM machine at home if you have been given one pre-operatively. DO NOT USE WHILE YOU ARE SLEEPING. ?Your follow up appointment is indicated in your discharge instructions. ?Your medications have been sent to your pharmacy. ?Please contact our office with any questions/concerns regarding your knee at [phone]. Patient Instructions: Antibiotic Form, Knee Replacement (DC) Stand Alone Forms: General Discharge Information Follow-up/Referrals: William Oshea MD [Physician] - Keep Reg. Scheduled Appt. Discharge Medications: No Action Centrum Silver 0.4-300-250 mg-mcg-mcg tablet 1 tablet PO DAILY RF: 0 omeprazole 40 mg capsule,delayed release(DR/EC) 40 mg PO QAM RF: 0 carvedilol 25 mg tablet 25 mg PO Q12H Qty: 180 RF: 1 metformin 500 mg tablet
--- NOTE | 2020-12-24 13:30 | PM.IMPN ---
Progress Note: A&P Assessment and Plan (1) Degenerative joint disease of right knee: Code(s): M17.11 - Unilateral primary osteoarthritis, right knee Status: Acute Assessment and Plan: Postoperative day 1, status post right total knee arthroplasty. Wound care, pain control, and DVT prophylaxis were deferred to Dr. Oshea. He tolerated the procedure well and pain has been well-controlled. He is progressing well with PT/OT. Disposition per primary team. (2) Essential hypertension: Code(s): I10 - Essential (primary) hypertension Status: Acute Assessment and Plan: Blood pressures were reviewed postoperatively and they were bit high, in the 140s to 160 systolic. This was likely secondary to postoperative pain and missed antihypertensives this morning. His antihypertensives were resumed and blood pressure normalized. (3) Mixed hyperlipidemia: Code(s): E78.2 - Mixed hyperlipidemia Status: Acute Assessment and Plan: LFTs are normal. Statin was continued. (4) Coronary artery disease: Code(s): I25.10 - Atherosclerotic heart disease of [place] coronary artery without angina pectoris Status: Acute Assessment and Plan: Status post three-vessel bypass in 2003 with no acute issues. Statin, aspirin, and beta-tri were continued. (5) Type 2 diabetes mellitus: Code(s): E11.9 - Type 2 diabetes mellitus without complications Status: Acute Assessment and Plan: Well controlled with a recent hemoglobin A1c of 5.7%. Farxiga and metformin were continued. (6) Diastolic congestive heart failure: Code(s): I50.30 - Unspecified diastolic (congestive) heart failure Status: Acute Assessment and Plan: The patient appears euvolemic at this time. Volume status was monitored closely. (7) Benign prostatic hyperplasia: Code(s): N40.0 - Benign prostatic hyperplasia without lower urinary tract symptoms Status: Acute Assessment and Plan: He did have retention yesterday requiring straight cath x1. This has resolved and he has voided several times today without difficulty. Tamsulosin will be continued and he was advised to monitor closely for any retention at discharge. He will need to call his PCP immediately or return to the ED if he develops inability to void which he understands. (8) Gastroesophageal reflux disease: Code(s): K21.9 - Gastro-esophageal reflux disease without esophagitis Status: Acute Assessment and Plan: Omeprazole was continued. Subjective Date/time seen: 12/24/20 13:30 Mr. Pak is a 80 y.o. male with PMH significant for degenerative joint disease, CAD s/p CABG, diastolic CHF, hypertension, dyslipidemia, BPH, GERD, and T2DM who is seen in follow-up for medical management s/p right total knee arthroplasty. He is doing very well post-operatively. His right knee pain is well-controlled on his oral pain regimen and he is progressing well with therapy. He has no shortness of breath, cough, or chest pain. He is using incentive spirometry. He did have difficulty urinating yesterday and required straight catheterization x1 but he has been voiding without difficultly since. His appetite is good and he is tolerating his diet. He has no complaints of leg swelling or calf pain. He is very eager to get home. Review of Systems Review of Systems: All systems reviewed & are unremarkable except as noted in HPI and below Exam Narrative: Exam Narrative: General: Very pleasant, well-developed, and obese 80 y.o. male sitting up in bed in no acute distress. HEENMT: Normocephalic and atraumatic. Sclerae anicteric. EOMI. Oral mucosa moist. Neck: Supple without lymphadenopathy or masses. Cardiac: Regular rate and rhythm. S1 and S2 normal. 1/6 systolic ejection murmur at RSB. Chest: Pacemaker present to left chest. Lungs: Effort normal. Lungs are clear to auscultation bilatera
== END 2020-12-24 15:21 | disposition home health service (06) ==
LOC: ANHSURGERY 06:05 → ANH2MED 12:24
PROVIDERS: Physician Assistant; PCP Internal Medicine; Visit Provider Orthopaedic Surgery
PROC: (CPT 27447; principal; 2020-12-23 07:30)
DX: M17.11 Unilateral primary osteoarthritis, right knee (principal); G89.18 Other acute postprocedural pain; I13.0 Hypertensive heart and chronic kidney disease with heart failure and stage 1 through stage 4 chronic kidney disease, or unspecified chronic kidney disease; I50.30 Unspecified diastolic (congestive) heart failure; I25.10 Atherosclerotic heart disease of native coronary artery without angina pectoris; E78.2 Mixed hyperlipidemia; E11.22 Type 2 diabetes mellitus with diabetic chronic kidney disease; N18.9 Chronic kidney disease, unspecified; K21.9 Gastro-esophageal reflux disease without esophagitis; Z79.84 Long term (current) use of oral hypoglycemic drugs; Z79.82 Long term (current) use of aspirin; Z95.1 Presence of aortocoronary bypass graft; Z95.0 Presence of cardiac pacemaker; Z87.891 Personal history of nicotine dependence; E66.9 Obesity, unspecified; Z68.35 Body mass index [BMI] 35.0-35.9, adult
CPT/HCPCS: 27447; 64447; 36415; 73560; 80048; 80076; 82948; 83735; 85025; 97110; 97116; 97161; 97165; 97530; 97535; A9270; C1713; C1776; J0171; J0690; J1100; J2270; J2405; J2704; J2710; J2795; J3010; J7120

== ENCOUNTER 2021-01-29 14:49 | Outpatient (CLI) | payer MEDICARE, SELFPAY ==
[2021-01-29 15:17] LABS: Basophils Percent Auto 0.5 % (0.2-1.2); Eosinophils Absolute Auto 0.2 K/mm3 (0-0.3); Eosinophils Percent Auto 2.4 % (0-4.4); Hematocrit 39.3 % (42.0-52.0); Immature Granulocyte Absolute 0.03 K/mm3 (0.00-0.031); Immature Granulocyte Percent A 0.3 % (0-0.5); Lymphocytes Absolute Auto 1.91 K/mm3 (0.9-3.2); Lymphocytes Percent Auto 21.8 % (18.3-44.2); Mean Corpuscular HGB Conc 30.5 g/dl (32-36); Mean Corpuscular Volume 91.8 fl (80-100); Mean Platelet Volume 10.4 fl (7.4-10.4); Monocytes Absolute Auto 0.8 K/mm3 (0.1-0.6); Monocytes Percent Auto 8.9 % (2.6-8.5); Neutrophils Absolute Auto 5.8 K/mm3 (1.3-6.7); Neutrophils Percent Auto 66.1 % (45.5-73.1); Platelet Count Result 260 k/mm3 (150-375); Red Blood Count 4.28 M/mm3 (4.6-6.20); Red Cell Distribution Width 16.2 % (11.5-14.5); White Blood Count 8.8 K/mm3 (4.5-10.0)
[2021-01-29 15:30] LABS: Alanine Aminotransferase 18 U/L (4-50); Albumin Level 4.2 g/dL (3.5-5.1); Alkaline Phosphatase 95 U/L (38-126); Anion Gap 6 mmol/L (8-16); Aspartate Amino Transferase 27 U/L (17-59); Bilirubin,Total 0.6 mg/dL (0.2-1.3); Blood Urea Nitrogen 26 mg/dL (9-20); Carbon Dioxide 30 mmol/L (22-30); Chloride 107 mmol/L (98-107); Cholesterol 124 mg/dL (0-200); Estimated Glomerular Filt Rate 53; Glucose 71 mg/dL (75-110); HDL Direct 51 mg/dL; Potassium 3.9 mmol/L (3.4-5.0); Sodium 143 mmol/L (137-145); Triglycerides 131 mg/dL (<150)
[2021-01-29 15:35] LABS: Add Urine Microscopic? YES; Appearance Urine Clear (Clear); Bacteria Urine Trace /hpf; Bilirubin Urine Negative (Negative); Blood Urine Negative (Negative); Color Urine Yellow (Yellow); Glucose Urine UA 3+ mg/dL (Negative); Ketones Urine Negative (Negative); Leukocyte Esterase Ur 2+ LEU/UL (NEGATIVE); Mucus Urine Rare /lpf; Nitrate Urine Negative (Negative); Protein Urine Negative (Negative); Squamous Epithelial Cell Urine Rare /hpf (Few); Urobilinogen Urine Negative mg/dL (<2.0)
[2021-01-29 15:41] LABS: LDL Cholesterol Direct 56 mg/dL
[2021-01-29 15:56] LABS: Hemoglobin A1C 5.9 % (<5.7)
== END 2021-01-29 14:50 | disposition home or self-care (01) ==
LOC: ANHLAB 14:51
PROVIDERS: PCP Internal Medicine; Visit Provider Internal Medicine
DX: E11.9 Type 2 diabetes mellitus without complications (principal); E78.2 Mixed hyperlipidemia; I10 Essential (primary) hypertension; Z79.899 Other long term (current) drug therapy
CPT/HCPCS: 36415; 80053; 80061; 81001; 83036; 84443; 85025

== ENCOUNTER → 2021-02-02 00:01 | Outpatient (CLI) | payer MEDICARE, SELFPAY ==
[2021-02-02 19:16] LABS: SARS-CoV-2 RNA PCR Negative
== END ==
PROVIDERS: PCP Internal Medicine; Visit Provider Internal Medicine Gastroenterology
DX: Z01.812 Encounter for preprocedural laboratory examination (principal); Z20.822 Contact with and (suspected) exposure to COVID-19
CPT/HCPCS: 81001; C9803; U0003; U0005

== ENCOUNTER 2021-02-02 10:44 | Outpatient (CLI) | payer MEDICARE, SELFPAY ==
[2021-02-02 12:21] LABS: Add Urine Microscopic? YES; Appearance Urine Clear (Clear); Bilirubin Urine Negative (Negative); Blood Urine Negative (Negative); Color Urine Straw (Yellow); Glucose Urine UA 2+ mg/dL (Negative); Ketones Urine Negative (Negative); Leukocyte Esterase Ur Negative LEU/UL (Negative); Nitrate Urine Negative (Negative); Protein Urine Negative (Negative); Specific Grav Ur 1.008 (1.001-1.035); Urobilinogen Urine Negative mg/dL (<2.0); WBC Urine 0-3 /hpf
== END 2021-02-02 10:45 | disposition home or self-care (01) ==
PROVIDERS: PCP Internal Medicine; Visit Provider Internal Medicine
DX: R82.90 Unspecified abnormal findings in urine (principal)
CPT/HCPCS: 81001

== ENCOUNTER 2021-02-05 01:09 | Day surgery (SDC) | payer MEDICARE, SELFPAY ==
[2021-01-28 13:34] VITALS: BMI 33.8
[2021-02-05 11:06] VITALS: BP 158/72; PULSE 65; RESP 20; TEMP 36.7; O2SAT 96; BMI 33.2
[2021-02-05] MEDS: LACTATED RINGERS 1,000 ML 150 ML IV CONT ×2 (11:18→12:39)
[2021-02-05] MEDS: AMPICILLIN 2 GM/NS 100 ML 2 GM/100 ML BAG IVPB (11:24)
--- NOTE | 2021-02-05 11:30 | WPDANESEPPF ---
Anes - Initial Pre Proc Eval Procedure: Operation Date: 02/05/21 12:00 Proposed Procedures p Esophagogastroduodenoscopy And Screening Colonoscopy - Gerard Escobar MD Date/Time: 02/05/21 11:30 Surgeon: Gerard Escobar MD Pre Op Diagnosis: dysphagia, hx of colon polyps Patient Data Age: 80 Gender: M Height: 1.75 m Weight: 102 kg Last Vital Signs Temp 36.7 C 02/05/21 11:06 Pulse 65 02/05/21 11:06 Resp 20 02/05/21 11:06 BP 158/72 H 02/05/21 11:06 Pulse Ox 96 02/05/21 11:06 Allergies Allergy/AdvReac Type Severity Reaction Status Date / Time KATLYN Inhibitors AdvReac Mild Cough Verified 01/28/21 13:25 Home Medications Medication Instructions Recorded Confirmed Type aspirin 81 mg tablet,delayed 81 mg PO QAM 08/17/19 01/28/21 History release omega-3 fatty acids 1,000 mg 2,000 mg PO BID cap 08/17/19 02/05/21 History capsule cholecalciferol (vitamin D3) 125 mcg QAM 05/06/20 01/28/21 History [Vitamin D3] fluticasone fur. 100 mcg-umeclid 1 inh INHALATION Q24H #60 ea 08/15/20 01/28/21 Rx 62.5 mcg-vilant 25 mcg inhalat.powder carvedilol 25 mg tablet 25 mg PO Q12H #180 tablet 09/04/20 01/28/21 Rx lejgnfrw-qwy-rlybt acid 0.4 1 tablet PO DAILY 09/18/20 01/28/21 History mg-lycopene 300 mcg-lutein 250 mcg tablet sildenafil 100 mg tablet See Rx Instructions .ROUTE 11/03/20 01/28/21 Rx .COMPLEX #8 tablet furosemide 40 mg tablet 40 mg PO QAM #90 tablet 11/28/20 01/28/21 Rx metformin 500 mg tablet 500 mg PO QAM 12/15/20 01/28/21 History allopurinol 150 mg PO QAM 12/16/20 01/28/21 History losartan 100 mg QAM 12/16/20 01/28/21 History potassium citrate 1,620 mg PO QAM 12/16/20 01/28/21 History simvastatin 20 mg PO QAM 12/16/20 01/28/21 History tamsulosin 0.4 mg QAM 12/16/20 01/28/21 History oxycodone-acetaminophen [Percocet] 1 tablet PO Q6H PRN #60 tablet 12/24/20 01/28/21 Rx canagliflozin 100 mg tablet 100 mg PO DAILY #90 tablet 01/06/21 01/28/21 Rx omeprazole 40 mg capsule,delayed 40 mg PO QAM #90 cap 01/06/21 01/28/21 Rx release sod picosulf 10 mg-magnes 3.5 160 ml PO BID #160 ml 01/28/21 01/28/21 Rx gram-citric 12 gram/160 mL oral solution Patient hx anesthesia problems: none Family hx anesthesia problems: none PMFSH Past Medical History Medical History Anxiety Ascending aortic aneurysm Benign prostatic hyperplasia Coronary artery disease Status post three-vessel bypass in 2003. Degenerative joint disease of knee Diastolic congestive heart failure Echocardiogram in 05/2019 showed mild LV ventricular enlargement, mild concentric LVH, moderate apical and apical septal hypokinesis, grade 2 diastolic dysfunction, EF 50%, moderately enlarged left atrium, moderate mitral and mild aortic valve regurgitation. Erectile dysfunction Esophageal web Status post multiple dilatations over the years. Essential hypertension Gastroesophageal reflux disease Gout Hearing loss History of colon polyps Mixed hyperlipidemia Osteoarthritis Shingles Trigger finger of left hand Type 2 diabetes mellitus Hemoglobin A1c was 5.7% on 12/16/2020. Surgical History Surgical History History of arthroplasty of right knee (~12/23/20) History of arthroscopy of right knee History of colonoscopy with polypectomy History of coronary artery bypass graft x 3 (~2003) History of lumbar surgery Lumbar laminectomy at several levels with what sounds like foraminectomy as well. History of open reduction and internal fixation (ORIF) procedure Right lower extremity fracture. History of permanent cardiac pacemaker placement History of tonsillectomy S/P TKR (total knee replacement) Family History Family History Mother Diabetes mellitus Cerebrovascular accident Father Acute myocardial infarction Hypertension Bladder cancer
[2021-02-05 11:38] LABS: Glucose Point of Care 152 (65-105)
[2021-02-05] MEDS: BENZOCAINE (*SP) 60 ML SPRAY CAN (HURRICAINE) 1 SPRAY MUCOUS MEM (12:16)
[2021-02-05 12:43] VITALS: BP 113/59; PULSE 63; RESP 24; O2SAT 96
--- NOTE | 2021-02-05 12:44 | WPDGICN ---
Assessment and Plan Assessment and plan (1) Dysphagia: Code(s): R13.10 - Dysphagia, unspecified Status: Acute Assessment and Plan: patient known to have esophageal web. Merrill to be on the basis of GE reflux disease. Because of difficulty swallowing large pills they suspect this has recurred plan to continue omeprazole and anti reflux medications. EGD will be performed further recommendations after endoscopy (2) Gastroesophageal reflux disease: Code(s): K21.9 - Gastro-esophageal reflux disease without esophagitis Status: Acute Assessment and Plan: continue PPI and anti-reflux measures long-term. (3) History of colonoscopy with polypectomy: Code(s): Z98.890 - Other specified postprocedural states; Z86.010 - Personal history of colonic polyps Status: Acute Assessment and Plan: Because of patient's prior history of colon polyps follow-up colonoscopy at 5 year intervals is been advised. This will be planned today. Further recommendations after endoscopy. GI Consult Note Consult date/time: 02/05/21 12:44 HPI: Drew Pak is a 80 year old male Seen in evaluation at the request of Dr Low. He denies heartburn... Over recent months has had difficulty swallowing large pills. He is known to have esophageal web last EGD 2018 this was dilated. Patient currently maintained on omeprazole 20 mg p.o. daily for underlying acid reflux. He denies any weight loss or bleeding. Follow-up EGD has been recommended because of difficulty swallowing. Patient also has a distant history of colon polyps. Last colonoscopy 2014 was unremarkable. Presents today for screening colonoscopy because of this history. He states his current weight appetite bowel movements normal. He denies abdominal pain. No bleeding is noted. His weight has remained stable. Family history noncontributory. Review of Systems Review of Systems: All systems reviewed & are unremarkable except as noted in HPI and below [facility] Past Medical History Medical History (Updated 02/05/21 @ 12:48 by Gerard Escobar MD) Anxiety Ascending aortic aneurysm Benign prostatic hyperplasia Coronary artery disease Status post three-vessel bypass in 2003. Degenerative joint disease of knee Diastolic congestive heart failure Echocardiogram in 05/2019 showed mild LV ventricular enlargement, mild concentric LVH, moderate apical and apical septal hypokinesis, grade 2 diastolic dysfunction, EF 50%, moderately enlarged left atrium, moderate mitral and mild aortic valve regurgitation. Erectile dysfunction Esophageal web Status post multiple dilatations over the years. Essential hypertension Gastroesophageal reflux disease Gout Hearing loss History of colon polyps Mixed hyperlipidemia Osteoarthritis Shingles Trigger finger of left hand Type 2 diabetes mellitus Hemoglobin A1c was 5.7% on 12/16/2020. Surgical History Surgical History (Updated 02/05/21 @ 12:48 by Gerard Escobar MD) History of arthroplasty of right knee (~12/23/20) History of arthroscopy of right knee History of colonoscopy with polypectomy History of coronary artery bypass graft x 3 (~2003) History of lumbar surgery Lumbar laminectomy at several levels with what sounds like foraminectomy as well. History of open reduction and internal fixation (ORIF) procedure Right lower extremity fracture. History of permanent cardiac pacemaker placement History of tonsillectomy S/P TKR (total knee replacement) Family History Family History Mother Diabetes mellitus Cerebrovascular accident Father Acute myocardial infarction Hypertension Bladder cancer Other Heart disease Social History Social History Social History: Surrogate decision maker: Pilar George, daughter. Code status: Full code. Smoking packs per day: 3 Smoking cigarette
[2021-02-05 12:53] VITALS: BP 126/62; PULSE 60; RESP 20; O2SAT 95
[2021-02-05 13:03] VITALS: BP 143/90; PULSE 60; RESP 20; O2SAT 97
[2021-02-05 13:13] VITALS: BP 140/66; PULSE 60; RESP 20; O2SAT 97
== END 2021-02-05 13:22 | disposition home or self-care (01) ==
PROVIDERS: PCP Internal Medicine; Visit Provider Internal Medicine Gastroenterology
PROC: 0DJ08ZZ Inspection of Upper Intestinal Tract, Via Natural or Artificial Opening Endoscopic (ICD-10-PCS; CPT 43235; principal; 2021-02-05 12:00)
DX: Z12.11 Encounter for screening for malignant neoplasm of colon (principal); K64.8 Other hemorrhoids; K57.30 Diverticulosis of large intestine without perforation or abscess without bleeding; Z86.010 Personal history of colon polyps; Q39.4 Esophageal web; K31.7 Polyp of stomach and duodenum; K21.9 Gastro-esophageal reflux disease without esophagitis; I25.10 Atherosclerotic heart disease of native coronary artery without angina pectoris; I11.0 Hypertensive heart disease with heart failure; I50.30 Unspecified diastolic (congestive) heart failure; E78.2 Mixed hyperlipidemia; M10.9 Gout, unspecified; E11.9 Type 2 diabetes mellitus without complications; N40.0 Benign prostatic hyperplasia without lower urinary tract symptoms; F41.9 Anxiety disorder, unspecified; I71.4 Abdominal aortic aneurysm, without rupture; Z95.1 Presence of aortocoronary bypass graft; Z87.891 Personal history of nicotine dependence; Z79.82 Long term (current) use of aspirin; Z79.84 Long term (current) use of oral hypoglycemic drugs; Z79.891 Long term (current) use of opiate analgesic; E66.9 Obesity, unspecified; Z68.33 Body mass index [BMI] 33.0-33.9, adult
CPT/HCPCS: 43235; 43450; G0105; 82948; J0290; J2001; J2704; J7120

== ENCOUNTER 2021-02-13 12:57 | Outpatient (CLI) | payer MEDICARE, SELFPAY ==
--- NOTE | ~2021-02-13 | CT_ITS ---
EXAMINATION: CT lumbar spine [facility] EXAM DATE: 02/13/2021 13:24 INDICATION: M54.5 - Low back pain. TECHNIQUE: Spiral CT of the lumbar spine was performed without contrast. Axial, coronal and sagittal images lumbar spine were reviewed. The dose-length product (DLP) for this examination was 1120.60 m Gy-cm. The exposure was tailored according to patient size (auto mA exposure control), and iterativ e reconstruction (ASIR) was used as additional dose reduction technique. Comparison is made to prior examination from 01/24/2019. FINDINGS: Interval laminectomies L2-L5, and L1 laminotomies. There is severe disc disease L2-L5, mode rate to severe at L5-S1. There is 3 mm retrolisthesis L5 on S1, 2 mm retrolisthesis L3 on L4. No spon dylolysis. There are no acute fractures identified. Mild lumbar dextroscoliosis. Sternotomy wires, pa cemaker. Paraspinal soft tissue is unremarkable. Incompletely imaged large fluid density left renal l esion likely cyst. Aortic arterial sclerosis. No sacral insufficiency fracture. Level by level evaluation: T12-L1: Disc does not extend beyond the endplate margin. Facet arthropathy: Mild bilateral. Neural foraminal stenosis: No stenosis. Central canal stenosis: No stenosis. L1-L2: There is mild to moderate disc osteophyte complex. Facet arthropathy: Mild to moderate. Neural foraminal stenosis: Mild to moderate bilateral. Central canal stenosis: Posterior decompression. L2-L3: There is a moderate to large diffuse disc bulge. Facet arthropathy: Moderate. Neural foraminal stenosis: Moderate right, mild to moderate left. Central canal stenosis: Mild to moderate. Posterior decompression. L3-L4: There is a moderate to large diffuse disc bulge. Facet arthropathy: Moderate to severe. Neural foraminal stenosis: Moderate to severe left, mild to moderate right. Central canal stenosis: Mild to moderate. Posterior decompression. L4-L5: There is a moderate diffuse disc bulge. Facet arthropathy: Severe. Neural foraminal stenosis: Moderate bilateral. Central canal stenosis: Mild. L5-S1: There is a moderate diffuse disc bulge. Facet arthropathy: Severe. Neural foraminal stenosis: Moderate bilateral. Central canal stenosis: Posterior decompression. IMPRESSION: 1. Advanced lumbar spondylosis. 2. Lumbar spine posterior decompression. Reviewed, dictated and finalized at location A.
== END 2021-02-13 12:58 | disposition home or self-care (01) ==
PROVIDERS: PCP Internal Medicine; Visit Provider Internal Medicine
DX: G89.29 Other chronic pain (principal); M54.5 Low back pain; M47.816 Spondylosis without myelopathy or radiculopathy, lumbar region
CPT/HCPCS: 72131

== ENCOUNTER 2021-02-23 11:01 | Outpatient (CLI) | payer MEDICARE, SELFPAY ==
--- NOTE | ~2021-02-23 | US_ITS ---
US renal BI 02/23/2021 11:28 Procedure: Realtime transabdominal ultrasound of the kidneys and bladder. Indication: Renal disorder Comparison: No prior studies for comparison. Findings: Renal echotexture is normal bilaterally without hydronephrosis, or renal calculus. There is a 6.3 cm left ovarian cyst. The right kidney measures 11.9 cm and left kidney measures 12.5 cm. Andrés dder within normal limits. Impression: 1: Left renal cyst measuring 6.3 cm. Reviewed, dictated and finalized at location A. Impression: 1: Left renal cyst measuring 6.3 cm.
== END 2021-02-23 11:02 | disposition home or self-care (01) ==
LOC: ANHIMG 11:02
PROVIDERS: PCP Internal Medicine; Visit Provider Internal Medicine
DX: N28.1 Cyst of kidney, acquired (principal)
CPT/HCPCS: 76775

== ENCOUNTER 2021-04-28 09:55 | Outpatient (CLI) | payer MEDICARE, SELFPAY ==
[2021-04-28 10:42] LABS: Basophils Percent Auto 0.4 % (0.2-1.2); Eosinophils Absolute Auto 0.2 K/mm3 (0-0.3); Eosinophils Percent Auto 2.5 % (0-4.4); Hematocrit 40.5 % (42.0-52.0); Hemoglobin 11.8 g/dL (14.0-18.0); Immature Granulocyte Absolute 0.02 K/mm3 (0.00-0.031); Immature Granulocyte Percent A 0.3 % (0-0.5); Lymphocytes Absolute Auto 1.41 K/mm3 (0.9-3.2); Lymphocytes Percent Auto 18.7 % (18.3-44.2); Mean Corpuscular HGB Conc 29.1 g/dl (32-36); Mean Corpuscular Hemoglobin 24.9 pg (26-34); Mean Corpuscular Volume 85.6 fl (80-100); Mean Platelet Volume 10.4 fl (7.4-10.4); Monocytes Absolute Auto 0.7 K/mm3 (0.1-0.6); Monocytes Percent Auto 9.7 % (2.6-8.5); Neutrophils Absolute Auto 5.2 K/mm3 (1.3-6.7); Neutrophils Percent Auto 68.4 % (45.5-73.1); Platelet Count Result 350 k/mm3 (150-375); Red Blood Count 4.73 M/mm3 (4.6-6.20); Red Cell Distribution Width 18.5 % (11.5-14.5); White Blood Count 7.5 K/mm3 (4.5-10.0)
[2021-04-28 11:00] LABS: Alanine Aminotransferase 17 U/L (4-50); Albumin Level 4.3 g/dL (3.5-5.1); Alkaline Phosphatase 92 U/L (38-126); Anion Gap 11 mmol/L (8-16); Aspartate Amino Transferase 23 U/L (17-59); Blood Urea Nitrogen 25 mg/dL (9-20); Carbon Dioxide 25 mmol/L (22-30); Chloride 105 mmol/L (98-107); Estimated Glomerular Filt Rate 42; Glucose 108 mg/dL (65-110); Phosphorus 3.1 mg/dL (2.5-4.5); Potassium 4.2 mmol/L (3.4-5.0); Sodium 141 mmol/L (137-145)
[2021-04-28 11:03] LABS: Complement C3 119 mg/dL (88-165)
[2021-04-28 11:08] LABS: Parathyroid Intact 47.6 pg/mL (7.5-53.5)
[2021-04-28 11:56] LABS: Erythrocyte Sedimentation Rate 17 mm/hr (0-20)
[2021-04-30 23:42] LABS: Lambda Light Chain 30.4 mg/L (5.7-26.3)
[2021-05-02 16:22] LABS: Complement Total CH50 >60 U/mL (31-60)
== END 2021-04-28 09:56 | disposition home or self-care (01) ==
PROVIDERS: PCP Internal Medicine; Visit Provider Internal Medicine Nephrology
DX: N18.31 Chronic kidney disease, stage 3a (principal); I48.0 Paroxysmal atrial fibrillation; I10 Essential (primary) hypertension
CPT/HCPCS: 36415; 80053; 80069; 83883; 83970; 85025; 85652; 86038; 86160; 86162; 86334

== ENCOUNTER 2021-04-30 10:10 | Outpatient (CLI) | payer MEDICARE, SELFPAY ==
[2021-04-30 11:28] LABS: Creatinine Urine 127.8 mg/dL; Total Protein Urine Random 10 mg/dL; Ur Ttl Prot Creatinine Ratio 0.08 mg/mg (0-0.20)
[2021-05-06 04:29] LABS: Albumin 44 %; Creat 24 Hr 1.26 g/24 h (0.50-2.15); Measured Kappa Chains <1.00 mg/dL (<2.00); Measured Lambda Chains <1.00 mg/dL (<2.00); Pro/Creat Ratio 105 mg/g creat (<=114)
== END 2021-04-30 10:11 | disposition home or self-care (01) ==
LOC: ANHLAB 10:13
PROVIDERS: PCP Internal Medicine; Visit Provider Internal Medicine Nephrology
DX: N18.31 Chronic kidney disease, stage 3a (principal)
CPT/HCPCS: 82570; 84156; 86335

== ENCOUNTER 2021-06-06 10:07 | Outpatient (CLI) | payer MEDICARE, SELFPAY ==
[2021-06-06 10:30] LABS: Basophils Percent Auto 0.2 % (0.2-1.2); Eosinophils Absolute Auto 0.1 K/mm3 (0-0.3); Eosinophils Percent Auto 1.4 % (0-4.4); Hematocrit 39.7 % (42.0-52.0); Immature Granulocyte Absolute 0.05 K/mm3 (0.00-0.031); Immature Granulocyte Percent A 0.5 % (0-0.5); Lymphocytes Absolute Auto 1.48 K/mm3 (0.9-3.2); Mean Corpuscular HGB Conc 30.2 g/dl (32-36); Mean Corpuscular Hemoglobin 25.5 pg (26-34); Mean Corpuscular Volume 84.3 fl (80-100); Mean Platelet Volume 9.7 fl (7.4-10.4); Monocytes Absolute Auto 0.7 K/mm3 (0.1-0.6); Monocytes Percent Auto 7.8 % (2.6-8.5); Neutrophils Absolute Auto 6.9 K/mm3 (1.3-6.7); Neutrophils Percent Auto 74.1 % (45.5-73.1); Platelet Count Result 251 k/mm3 (150-375); Red Blood Count 4.71 M/mm3 (4.6-6.20); Red Cell Distribution Width 19.3 % (11.5-14.5); White Blood Count 9.3 K/mm3 (4.5-10.0)
[2021-06-06 10:39] LABS: Anion Gap 8 mmol/L (8-16); Blood Urea Nitrogen 25 mg/dL (9-20); Calcium 8.6 mg/dL (8.4-10.2); Carbon Dioxide 26 mmol/L (22-30); Chloride 104 mmol/L (98-107); Estimated Glomerular Filt Rate 58; Glucose 179 mg/dL (65-110); Sodium 138 mmol/L (137-145)
[2021-06-06 10:41] LABS: INR 1.4; Prothrombin Time 16.7 Seconds (11.1-14.7)
== END 2021-06-06 10:08 | disposition home or self-care (01) ==
PROVIDERS: PCP Internal Medicine
DX: I25.709 Atherosclerosis of coronary artery bypass graft(s), unspecified, with unspecified angina pectoris (principal)
CPT/HCPCS: 36415; 80048; 85025; 85610

== ENCOUNTER 2021-07-08 15:26 | Outpatient (CLI) | payer MEDICARE, SELFPAY ==
[2021-07-08 15:58] LABS: Basophils Percent Auto 0.1 % (0.2-1.2); Eosinophils Absolute Auto 0.1 K/mm3 (0-0.3); Eosinophils Percent Auto 0.9 % (0-4.4); Hematocrit 36.9 % (42.0-52.0); Hemoglobin 11.5 g/dL (14.0-18.0); Immature Granulocyte Absolute 0.11 K/mm3 (0.00-0.031); Immature Granulocyte Percent A 0.9 % (0-0.5); Lymphocytes Absolute Auto 1.79 K/mm3 (0.9-3.2); Lymphocytes Percent Auto 14.8 % (18.3-44.2); Mean Corpuscular HGB Conc 31.2 g/dl (32-36); Mean Corpuscular Hemoglobin 26.3 pg (26-34); Mean Corpuscular Volume 84.2 fl (80-100); Mean Platelet Volume 10.1 fl (7.4-10.4); Monocytes Percent Auto 8.2 % (2.6-8.5); Neutrophils Absolute Auto 9.1 K/mm3 (1.3-6.7); Neutrophils Percent Auto 75.1 % (45.5-73.1); Platelet Count Result 255 k/mm3 (150-375); Red Blood Count 4.38 M/mm3 (4.6-6.20); Red Cell Distribution Width 19.7 % (11.5-14.5); White Blood Count 12.1 K/mm3 (4.5-10.0)
[2021-07-08 16:12] LABS: Anion Gap 7 mmol/L (8-16); Blood Urea Nitrogen 35 mg/dL (9-20); Calcium 8.3 mg/dL (8.4-10.2); Carbon Dioxide 25 mmol/L (22-30); Chloride 106 mmol/L (98-107); Estimated Glomerular Filt Rate > 60; Glucose 135 mg/dL (65-110); Potassium 3.2 mmol/L (3.4-5.0); Sodium 138 mmol/L (137-145)
[2021-07-08 16:54] LABS: Prothrombin Time 22.1 Seconds (11.1-14.7)
== END 2021-07-08 15:27 | disposition home or self-care (01) ==
PROVIDERS: PCP Internal Medicine
DX: I25.709 Atherosclerosis of coronary artery bypass graft(s), unspecified, with unspecified angina pectoris (principal)
CPT/HCPCS: 36415; 80048; 85025; 85610

== ENCOUNTER 2021-07-21 11:49 | Outpatient (CLI) | payer MEDICARE, SELFPAY ==
[2021-07-21 12:17] LABS: Hemoglobin A1C 6.7 % (<5.7)
[2021-07-21 12:21] LABS: Anion Gap 8 mmol/L (8-16); Blood Urea Nitrogen 18 mg/dL (9-20); Carbon Dioxide 29 mmol/L (22-30); Chloride 105 mmol/L (98-107); Cholesterol 118 mg/dL (0-200); Estimated Glomerular Filt Rate 58; Glucose 98 mg/dL (65-110); HDL Direct 43 mg/dL; Sodium 142 mmol/L (137-145); Triglycerides 164 mg/dL (<150)
[2021-07-21 12:32] LABS: LDL Cholesterol Direct 57 mg/dL
[2021-07-21 12:45] LABS: Creatinine Urine 30.7 mg/dL
[2021-07-21 12:50] LABS: MALB Creatinine Ratio 178.8 mg/g (0-30); Microalbumin Urine Random 54.9 mg/L (0-16.7)
[2021-07-21 12:52] LABS: Free T4 Free Thyroxine 1.15 ng/mL (0.78-2.19); Prostate Specific Antigen 1.7 ng/mL (< OR = 4.0)
== END 2021-07-21 11:50 | disposition home or self-care (01) ==
LOC: ANHLAB 11:51
PROVIDERS: PCP Internal Medicine; Visit Provider Internal Medicine
DX: E11.9 Type 2 diabetes mellitus without complications (principal); I10 Essential (primary) hypertension; E78.2 Mixed hyperlipidemia; Z12.5 Encounter for screening for malignant neoplasm of prostate; Z79.899 Other long term (current) drug therapy
CPT/HCPCS: 36415; 80048; 80061; 82043; 83036; 84153; 84439; 84443; G0103

== ENCOUNTER 2021-08-19 09:21 | Outpatient (CLI) | payer MEDICARE, SELFPAY ==
--- NOTE | ~2021-08-19 | US_ITS ---
EXAMINATION: US venous doppler [facility] DATE: 08/19/2021 09:56 INDICATION: Left lower limb pain. TECHNIQUE: Grayscale ultrasound images without and with compression and Doppler ultrasound images of the left lower extremity veins were obtained. COMPARISON: None. FINDINGS: The visualized portions of left common femoral vein, profunda (deep) femoral vein, femoral vein, popl iteal vein, posterior tibial veins, and greater saphenous vein outflow are patent. The peroneal veins are not well visualized. IMPRESSION: 1. No deep venous thrombosis. Reviewed, dictated and finalized at location A. AND FROST INSULATOR
== END 2021-08-19 09:22 | disposition home or self-care (01) ==
LOC: ANHIMG 09:26
PROVIDERS: PCP Internal Medicine; Visit Provider Internal Medicine
DX: M79.605 Pain in left leg (principal); M79.89 Other specified soft tissue disorders
CPT/HCPCS: 93971

== ENCOUNTER 2021-08-24 16:46 | Outpatient (CLI) | payer MEDICARE, SELFPAY ==
--- NOTE | ~2021-08-24 | XR_ITS ---
XR chest 2V 08/24/2021 17:07 Indication: Cough Procedure: 2 view chest Comparison: Comparison to multiple prior studies sequentially, with oldest reviewed study dated 10/31. Findings: Status post median sternotomy for CABG. Pacemaker leads are present in the right atrium and right ventricle respectively. Mild cardiomegaly. Mild pulmonary vascular congestion. There are subtl e right basilar infiltrates which may represent atelectasis or pneumonia. Small right pleural effusio n. No pneumothorax. No acute osseous abnormality. Impression: 1: Right basilar infiltrates may represent pneumonia and/or atelectasis. 2: Small right pleural effusion. 3: Cardiomegaly. Reviewed, dictated and finalized at location A. OGRAPHER TECHNOLOGIST Impression: 1: Right basilar infiltrates may represent pneumonia and/or atelectasis. 2: Small right pleural effusion. 3: Cardiomegaly.
== END 2021-08-24 16:47 | disposition home or self-care (01) ==
PROVIDERS: PCP Internal Medicine; Visit Provider Internal Medicine
DX: R05.9 Cough, unspecified (principal); I51.7 Cardiomegaly; J90 Pleural effusion, not elsewhere classified; R91.8 Other nonspecific abnormal finding of lung field
CPT/HCPCS: 71046

== ENCOUNTER 2021-09-02 13:38 | Outpatient (CLI) | payer MEDICARE, SELFPAY ==
--- NOTE | ~2021-09-02 | XR_ITS ---
XR chest 2V 09/02/2021 14:26 Indication: Cough and shortness of breath Procedure: 2 view chest Comparison: Comparison to multiple prior studies sequentially, with oldest reviewed study dated 05/25. Findings: Status post median sternotomy for CABG. Pacemaker leads in expected position, unchanged. Bi basilar atelectasis. No focal pneumonia, edema, pleural effusion or pneumothorax. No acute osseous ab normality. Impression: 1: Bibasilar atelectasis. Reviewed, dictated and finalized at location B. PLANT SPECIALIST Impression: 1: Bibasilar atelectasis.
[2021-09-02 15:11] LABS: Anion Gap 9 mmol/L (8-16); Blood Urea Nitrogen 18 mg/dL (9-20); Calcium 8.7 mg/dL (8.4-10.2); Carbon Dioxide 28 mmol/L (22-30); Chloride 98 mmol/L (98-107); Estimated Glomerular Filt Rate 58; Glucose 97 mg/dL (65-110); Sodium 135 mmol/L (137-145)
== END 2021-09-02 13:39 | disposition home or self-care (01) ==
PROVIDERS: PCP Internal Medicine; Visit Provider Internal Medicine
DX: J18.9 Pneumonia, unspecified organism (principal); I10 Essential (primary) hypertension; J98.11 Atelectasis
CPT/HCPCS: 36415; 71046; 80048

== ENCOUNTER 2021-09-10 14:34 | Outpatient (CLI) | payer MEDICARE, SELFPAY ==
--- NOTE | ~2021-09-10 | XR_ITS ---
EXAMINATION: XR chest 2V DATE: 09/10/2021 14:54 INDICATION: Cough and shortness of breath TECHNIQUE: PA and lateral views of the chest are obtained. COMPARISON: 09/02/2021 FINDINGS: There are patchy opacities of the mid and lower lung zones. There is no pleural effusion or pneumothorax. Cardiomegaly is noted. There is moderate thoracic spondylosis. Median sternotomy wires and mediastinal surgical clips are seen, likely from prior coronary artery bypass grafting. There is a dual-lead pacemaker of the left chest wall. IMPRESSION: 1. Minimal bibasilar airspace opacities which could reflect pneumonia versus atelectasis versus mild pulmonary edema. 2. Cardiomegaly. Reviewed, dictated and finalized at location A. TRANSIT OPERATOR IMPRESSION: 1. Minimal bibasilar airspace opacities which could reflect pneumonia versus at electasis versus mild pulmonary edema. 2. Cardiomegaly.
== END 2021-09-10 14:35 | disposition home or self-care (01) ==
PROVIDERS: PCP Internal Medicine; Visit Provider Internal Medicine
DX: R05.9 Cough, unspecified (principal); R06.02 Shortness of breath; J18.9 Pneumonia, unspecified organism; I51.7 Cardiomegaly
CPT/HCPCS: 71046

== ENCOUNTER 2021-09-10 14:58 | Inpatient (IN) | payer MEDICARE, SELFPAY ==
[2021-09-10] VITALS (11 sets, daily range): BP systolic 112–155; BP diastolic 63–103; PULSE 80–86; RESP 13–27; TEMP 36.4–36.9; O2SAT 74–95; BMI 31.6
--- NOTE | ~2021-09-10 | XR_ITS ---
EXAMINATION: XR chest 1V portable EXAM DATE: 09/12/2021 20:26 INDICATION: COVID pneumonia. TECHNIQUE: Portable AP frontal chest x-ray was obtained. Comparison is made to prior examination from 09/11/2021. FINDINGS: Small to moderate amount of bilateral ill-defined airspace disease which could be COVID pne umonia given history provided. This is more pronounced than on previous examination. There is cardiom egaly. Sternotomy wires and dual-lead pacemaker. No pneumothorax or pleural effusion. There are bony degenerative changes. IMPRESSION: Mild progression of bilateral airspace disease probably COVID pneumonia. Reviewed, dictated and finalized at location A. L FURNITURE POLISHER IMPRESSION: Mild progression of bilateral airspace disease probably COVID pneu monia.
--- NOTE | ~2021-09-10 | XR_ITS ---
EXAMINATION: XR chest 1V portable DATE: 09/14/2021 08:35 INDICATION: COVID pneumonia TECHNIQUE: frontal view of the chest was obtained. COMPARISON: Chest radiograph dated 09/12/2021 FINDINGS: Minimal opacities in the bilateral mid and lower lung zones which could represent atelectasis or pneu monia. No pleural effusion or pneumothorax. Cardiomegaly. Median sternotomy wires and mediastinal alicia gical clips are seen, likely from prior coronary artery bypass grafting. Dual lead pacemaker seen wit h leads projecting over the expected locations of the right atrium and right ventricular outflow trac t. IMPRESSION: 1. Minimal opacities in bilateral mid and lower lung zones which could represent atelectasis and/or p neumonia. Reviewed, dictated and finalized at location A. TITATIVE DEVELOPER IMPRESSION: 1. Minimal opacities in bilateral mid and lower lung zones which could represen t atelectasis and/or pneumonia.
--- NOTE | ~2021-09-10 | US_ITS ---
EXAMINATION: US venous doppler [facility] DATE: 09/11/2021 10:29 INDICATION: Lower limb edema. TECHNIQUE: Grayscale ultrasound images without and with compression and Doppler ultrasound images of the bilateral lower extremity veins were obtained. COMPARISON: Ultrasound 08/19/2021 FINDINGS: The visualized portions of right common femoral vein, profunda (deep) femoral vein, femoral vein, pop liteal vein, peroneal veins, posterior tibial veins, and greater saphenous vein outflow are patent. The visualized portions of left common femoral vein, profunda femoral vein, femoral vein, popliteal v ein, peroneal veins, posterior tibial veins, and greater saphenous vein outflow are patent. IMPRESSION: 1. No deep venous thrombosis. Reviewed, dictated and finalized at location A. P THERAPY COUNSELOR
--- NOTE | 2021-09-10 15:05 | ECG_ITS ---
Measurements Intervals [place] Rate: 75 P: NE: 0 QRS: 98 QRSD: 174 T: 246 QT: 458 QTc: 513 Interpretive Statements ELECTRONIC VENTRICULAR PACEMAKER WITH INHIBITION VENTRICULAR PREMATURE COMPLEX INTRAVENTRICULAR CONDUCTION DELAY MINIMAL Q WAVES- INFERIOR LEADS BASELINE ARTIFACT- I, II, III, AVR, AVL, AVF, V1, V3-V6 NO FURTHER INTERPRETATION IS POSSIBLE BORDERLINE ECG Electronically Signed On 09-10-2021 17:01:57 SUPPLY OFFICER by John Pierce D.O.
[2021-09-10 15:21] LABS: Basophils Percent Auto 0.2 % (0.2-1.2); Eosinophils Percent Auto 0.2 % (0-4.4); Hematocrit 37.5 % (42.0-52.0); Hemoglobin 11.6 g/dL (14.0-18.0); Immature Granulocyte Absolute 0.02 K/mm3 (0.00-0.031); Immature Granulocyte Percent A 0.5 % (0-0.5); Lymphocytes Absolute Auto 0.56 K/mm3 (0.9-3.2); Lymphocytes Percent Auto 13.4 % (18.3-44.2); Mean Corpuscular HGB Conc 30.9 g/dl (32-36); Mean Corpuscular Volume 84.1 fl (80-100); Mean Platelet Volume 9.8 fl (7.4-10.4); Monocytes Absolute Auto 0.4 K/mm3 (0.1-0.6); Monocytes Percent Auto 9.6 % (2.6-8.5); Neutrophils Absolute Auto 3.2 K/mm3 (1.3-6.7); Neutrophils Percent Auto 76.1 % (45.5-73.1); Platelet Count Result 230 k/mm3 (150-375); Red Blood Count 4.46 M/mm3 (4.6-6.20); Red Cell Distribution Width 19.2 % (11.5-14.5); White Blood Count 4.2 K/mm3 (4.5-10.0)
[2021-09-10] MEDS: FUROSEMIDE INJ 40 MG/4 ML VIAL IV PUSH (15:25)
[2021-09-10 15:32] LABS: Alanine Aminotransferase 25 U/L (4-50); Albumin Level 4.1 g/dL (3.5-5.1); Alkaline Phosphatase 72 U/L (38-126); Anion Gap 13 mmol/L (8-16); Aspartate Amino Transferase 63 U/L (17-59); Bilirubin,Total 1.2 mg/dL (0.2-1.3); Blood Urea Nitrogen 24 mg/dL (9-20); Calcium 8.6 mg/dL (8.4-10.2); Carbon Dioxide 24 mmol/L (22-30); Chloride 94 mmol/L (98-107); Estimated CRCL calculation 50 ml/min; Estimated Glomerular Filt Rate 53; Glucose 118 mg/dL (65-110); Potassium 4.1 mmol/L (3.4-5.0); Sodium 131 mmol/L (137-145)
[2021-09-10 15:33] LABS: INR 2.1
[2021-09-10 15:34] LABS: Partial Thromboplastin Time 48.6 SECONDS (22.3-36.8)
--- NOTE | 2021-09-10 15:44 | PC.NURSE ---
Entered room prior to 1538 to obtain EKG; pt. on phone and ignored multiple request to pause or end call so EKG could be done.
[2021-09-10 15:49] LABS: NT Pro B Type Natriuretic Pept 2720 pg/mL (5-100); Troponin I 0.048 ng/mL (0.000-0.034)
[2021-09-10 16:07] LABS: Alveolar/Arterial O2 Gradient 103.3 mmHg; Fractional Inspired Oxygen 28 %; HCO3 ABG 18.2 mEq/l (22.0-26.0); Oxygen Content ABG 15.6 %vol (16.0-22.0); Oxygen Saturation ABG 95.9 % (95.0-100.0); Oxyhemoglobin 93.6 % THb (90.0-100.0); PO2 ABG 69.6 mmHg (80.0-100.0); PO2 FiO2 Ratio Arterial Blood 2.49 %; Total Hemoglobin 11.8 g/dL (12.0-18.0)
[2021-09-10 16:11] LABS: PCO2 ABG 22.7 mmHg (35.0-45.0); pH ABG 7.522 (7.350-7.450)
[2021-09-10 16:12] LABS: Device NASAL CANNULA; Modified Allen's Test Pass; Site Drawn RIGHT RADIAL
--- NOTE | 2021-09-10 17:12 | ED.SOB ---
HPI - SOB/Dyspnea General Chief Complaint: Shortness of Breath/Dyspnea Stated Complaint: SOB Time Seen by Provider: 09/10/21 15:04 Source: patient History of Present Illness HPI Narrative: Patient presents for shortness of breath. Patient is had shortness of breath for the past couple as had pneumonia and treated with antibiotics he was having a follow-up chest x-ray today laid flat and had sudden worsening of his shortness of breath appeared pale per radiology team and was brought to the ER for evaluation. Patient reports a history of CHF, hypertension, hyperlipidemia. Related Data Home Medications Medication Instructions Recorded Confirmed omega-3 fatty acids 1,000 mg 2,000 mg PO BID cap 08/17/19 09/04/21 capsule cholecalciferol (vitamin D3) 125 mcg QAM 05/06/20 09/04/21 [Vitamin D3] [id number] acid 0.4 1 tablet PO DAILY 09/18/20 09/04/21 mg-lycopene 300 mcg-lutein 250 mcg tablet allopurinol 150 mg PO QAM 12/16/20 09/04/21 tamsulosin 0.4 mg QAM 12/16/20 09/04/21 potassium citrate 5 mEq (540 mg) 1,080 mg PO QAM tablet 02/17/21 09/04/21 tablet,extended release rivaroxaban 20 mg tablet 20 mg PO DAILY tablet 05/11/21 09/04/21 Allergies Allergy/AdvReac Type Severity Reaction Status Date / Time KATLYN Inhibitors AdvReac Mild Cough Verified 09/03/21 11:41 Review of Systems Review of Systems: CONSTITUTIONAL: Denies fever, chills, or sweats. EYES: Denies visual changes, redness, or discharge. ENT: Denies rhinorrhea, congestion, sore throat, or otalgia. CARDIOVASCULAR: Denies chest pain, palpitations, or edema. RESPIRATORY: reports shortness of breath GASTROINTESTINAL: Denies abdominal pain, nausea, vomiting, or diarrhea. GENITOURINARY: Denies dysuria or hematuria. SKIN: Denies rash or itching. MUSCULOSKELETAL: Denies back pain, joint pain, or myalgia. NEUROLOGIC: Denies headache, numbness, dizziness, or weakness. PSYCHIATRIC: Denies anxiety or depression. All systems reviewed & are unremarkable except as noted in HPI and below PMFSH Past Medical History Medical History Anemia Anxiety Ascending aortic aneurysm Benign prostatic hyperplasia Coronary artery disease Status post three-vessel bypass in 2003. Cough Degenerative joint disease of knee Diastolic congestive heart failure Echocardiogram in 05/2019 showed mild LV ventricular enlargement, mild concentric LVH, moderate apical and apical septal hypokinesis, grade 2 diastolic dysfunction, EF 50%, moderately enlarged left atrium, moderate mitral and mild aortic valve regurgitation. Discoloration and thickening of nails both feet Encounter for routine adult health examination without abnormal findings Erectile dysfunction Esophageal web Status post multiple dilatations over the years. 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 History of open reduction and internal fixation (ORIF) procedure Right lower extremity fracture. History of permanent cardiac pacemaker placement History of tonsillectomy S/P TKR (total knee replacement) Family History Family History Mother Diabetes mellitus Cerebrovascular accident Father Acute myocardial infarction Hypertension Bladder cancer Other Arthritis Heart disease Social History Social
[2021-09-10 18:00] LABS: Add Urine Microscopic? YES; Appearance Urine Clear (Clear); Bacteria Urine Trace /hpf; Bilirubin Urine Negative (Negative); Blood Urine Negative (Negative); Color Urine Straw (Yellow); Glucose Urine UA 2+ mg/dL (Negative); Ketones Urine Negative (Negative); Leukocyte Esterase Ur Negative LEU/UL (Negative); Nitrate Urine Negative (Negative); Protein Urine Negative (Negative); RBC Urine 0-2 /hpf (0-2); Urobilinogen Urine Negative mg/dL (<2.0)
[2021-09-10 19:08] LABS: Specific Grav Ur 1.004 (1.001-1.035)
--- NOTE | 2021-09-10 19:30 | PM.IMHP ---
H&P: HPI History of Present Illness Date/Time: 09/10/21 19:30 Chief Complaint: Low oxygen levels. Narrative: This is a 81-year-old male with coronary artery disease and congestive heart failure presented to the emergency department earlier today from Radiology for evaluation after he was found to have low oxygen levels. He had a cardiac catheterization stent placed at [facility] approximately 1 month ago. About a week thereafter he developed swelling in his lower legs and his Lasix was increased with some improvement. Unfortunately since that time he has developed a cough productive of clear sputum in addition to sinus congestion, postnasal drip, and decreased appetite. He was started on cefuroxime for possible pneumonia at the beginning of the month though his symptoms have not improved. Over the last several days his lower extremity edema has gotten much worse and today he was sent for an outpatient chest x-ray which showed minimal bibasilar airspace opacities. While in x-ray he became short of breath when lying flat at which time he was noted to have an SpO2 in the mid 70s and he was sent to the ER. Since that time he has been requiring approximately 4 L nasal cannula. He was given a dose of IV Lasix and has had quite a bit of urine output with subjective improvement in his shortness of breath. He has not had fever, chills, sweats, body aches, anosmia, dysgeusia, nausea, vomiting, or diarrhea. He has not had chest or pleuritic pain. He has no known exposure to those positive for COVID 19 though his has had similar symptoms. They were both vaccinated in early December and received the [employer] vaccine. He has not received booster. Review of Systems Review of Systems: Twelve systems were reviewed. No syncope or near syncope. No headache or neck ache. Appetite has been decreased. Reports orthopnea when lying flat in x-ray today. No history of venous thromboembolism. He has not had chest pain or palpitations. Except as documented, all other systems were reviewed and are negative. [facility] Past Medical History Medical History (Updated 09/11/21 @ 00:13 by Vilma Nelson PA-C) Anemia Anxiety Ascending aortic aneurysm Benign prostatic hyperplasia Coronary artery disease Status post three-vessel bypass in 2003. Degenerative joint disease of knee Diastolic congestive heart failure Echocardiogram in 05/2019 showed mild LV ventricular enlargement, mild concentric LVH, moderate apical and apical septal hypokinesis, grade 2 diastolic dysfunction, EF 50%, moderately enlarged left atrium, moderate mitral and mild aortic valve regurgitation. Erectile dysfunction Esophageal web Status post multiple dilatations over the years. Gastroesophageal reflux disease Gout Hearing loss History of colon polyps Mixed hyperlipidemia Obesity Osteoarthritis Shingles Systolic CHF Surgical History Surgical History (Updated 09/11/21 @ 00:08 by Vilma Nelson PA-C) History of arthroplasty of right knee (~12/23/20) History of arthroscopy of right knee History of colonoscopy with polypectomy History of coronary artery bypass graft x 3 (~2003) History of lumbar surgery Lumbar laminectomy at several levels with what sounds like foraminectomy as well. History of open reduction and internal fixation (ORIF) procedure Right lower extremity fracture. History of permanent cardiac pacemaker placement History of tonsillectomy Family History Family History Mother Diabetes mellitus Cerebrovascular accident Father Acute myocardial infarction Hypertension Bladder cancer Other Arthritis Heart disease Social History Social History Social History: Surrogate decision maker: Pilar George, daughter. Code status: Full code. Smoking packs per day: 2 Smoking cigarettes per day: 40.0 Years smoked: 20 Smoking pack-years
--- NOTE | 2021-09-10 22:58 | ADMGEN ---
This patient, Drew Pak, was admitted to IMU Room 205-01 at 2015 on 09/10/21. Patient/family oriented to hospital policies and general routines including ID bracelet, bed and alarms, visiting hours, pain management, procedures, bathroom and other care routines, personal items, smoking policy, room service/diet, and visiting hours. Information on how to activate the Rapid Response Team has been discussed. Patient/Family are encouraged to report perceived risks to care and to ask questions if they do not understand what they are told or what they should do.
[2021-09-11] VITALS (15 sets, daily range): BP systolic 114–142; BP diastolic 63–100; PULSE 72–93; RESP 16–22; TEMP 36.6–36.9; O2SAT 91–98
[2021-09-11] MEDS: FUROSEMIDE INJ 40 MG/4 ML VIAL IV PUSH ×3 (00:51→15:28)
[2021-09-11 05:32] LABS: Hematocrit 33.7 % (42.0-52.0); Hemoglobin 10.7 g/dL (14.0-18.0); Mean Corpuscular HGB Conc 31.8 g/dl (32-36); Mean Corpuscular Volume 81.8 fl (80-100); Mean Platelet Volume 9.8 fl (7.4-10.4); Platelet Count Result 201 k/mm3 (150-375); Red Blood Count 4.12 M/mm3 (4.6-6.20); Red Cell Distribution Width 18.8 % (11.5-14.5); White Blood Count 3.4 K/mm3 (4.5-10.0)
[2021-09-11 05:46] LABS: Anion Gap 11 mmol/L (8-16); Blood Urea Nitrogen 21 mg/dL (9-20); Calcium 8.3 mg/dL (8.4-10.2); Carbon Dioxide 24 mmol/L (22-30); Chloride 98 mmol/L (98-107); Estimated CRCL calculation 57 ml/min; Estimated Glomerular Filt Rate > 60; Glucose 95 mg/dL (65-110); Magnesium 1.8 mg/dL (1.6-2.3); Potassium 3.1 mmol/L (3.4-5.0); Sodium 133 mmol/L (137-145)
--- NOTE | 2021-09-11 13:45 | PCCCNOTE ---
On 09/11/21, the student, [Suzy Carmichael ], provided care and completed [facility] documentation on this patient. I have reviewed the student's documentation and agree with the findings.
[2021-09-11] MEDS: CLOPIDOGREL BISULFATE 75 MG TABLET PO (15:28)
[2021-09-11] MEDS: allopurinoL 150 MG TABLET PO (15:28)
[2021-09-11] MEDS: RIVAROXABAN 20 MG TABLET PO (16:34)
[2021-09-11 19:26] LABS: SARS-CoV-2 RNA PCR Positive
--- NOTE | 2021-09-11 20:15 | PM.IMPN ---
Progress Note: A&P Assessment and Plan (1) CHF exacerbation: Code(s): I50.9 - Heart failure, unspecified Status: Acute Assessment and Plan: Continue IV diuresis with Lasix 40 mg b.i.d. with close monitoring of volume status and renal function. Potassium was low at 3.1 and was supplemented. Kidney function stable with creatinine of 1.1. (2) Hypoxia: Code(s): R09.02 - Hypoxemia Status: Acute Assessment and Plan: Presumably secondary to CHF however his oxygen requirement seems to be a bit higher than what I expect he would need based on his chest x-ray findings. Given his other symptoms I think we need to rule out other possibilities including COVID-19. Pulmonary embolism is also a consideration given his marked lower extremity edema though he is on rivaroxaban that was held prior to his stent placement last month. No dosed room course is identified on the Doppler. (3) Person under investigation for COVID-19: Code(s): Z20.822 - Contact with and (suspected) exposure to COVID-19 Status: Acute Assessment and Plan: Patient will remain in isolation pending SARS-CoV-2 by PCR. (4) Chronic anemia: Code(s): D64.9 - Anemia, unspecified Status: Acute Assessment and Plan: Hemoglobin and hematocrit are stable on review of previous labs. (5) Hyponatremia: Code(s): E87.1 - Hypo-osmolality and hyponatremia Status: Acute Assessment and Plan: Likely due to volume overload. Monitor closely while diuresing. (6) Elevated troponin: Code(s): R77.8 - Other specified abnormalities of plasma proteins Status: Acute Assessment and Plan: Patient is not having any chest pain likely these are elevated in the setting of CHF. (7) Coronary artery disease: Qualifiers: Coronary Disease-Associated Artery/Lesion type: unspecified vessel or lesion type [place] vs. transplanted heart: unspecified whether [place] or transplanted heart Associated angina: unspecified whether angina present Qualified Code(s): I25.10 - Atherosclerotic heart disease of [place] coronary artery without angina pectoris Code(s): I25.10 - Atherosclerotic heart disease of [place] coronary artery without angina pectoris Status: Acute Assessment and Plan: Status post CABG many years ago and cardiac stent within the last 1 week. Due for follow-up with his coach wirer at [facility] on Tuesday. Continue is clopidogrel, carvedilol, and simvastatin. Subjective Date/time seen: 09/11/21 20:15 s: Patient examined at the bedside. He is sitting at the border of the bed. He is comfortable on oxygen. No active complaints. Review of Systems Review of Systems: All systems reviewed & are unremarkable except as noted in HPI and below Constitutional: Constitutional: Reports as per HPI Exam Narrative: General: Mildly ill-appearing male sitting up in bed. Weight: 99.8 kg. BMI: 31.6. HEENT: PERRL, EOMI. Sclerae anicteric. Tacky mucous membranes. Oropharynx is mildly erythematous. No exudate. There are some dry mucous in the posterior pharynx. Neck: Supple. No adenopathy or JVD. Respiratory: On 4 L nasal cannula. He is speaking in full sentences. He has frequent coughing jags with rhonchi that improve with cough. No significant wheezing. Cardiovascular: Regular rate and rhythm with S1-S2. Gastrointestinal: Abdomen is soft, nontender, and nondistended with positive bowel sounds. Skin: Warm and dry. No rash or lesions on limited exam. Extremities: No cyanosis or clubbing. Pitting edema to the upper thighs. Radial and pedal pulses intact. Neurological: Alert. Cranial nerves 2-12 are grossly intact. No gross focal deficits to casual conversation. Psychiatric: Pleasant and cooperative with normal mood and affect. Objective Data Vital Signs Vital Signs: Vital Signs - 24 hr 09/10/21 20:35 09/11/21 00:00 09/11/21 02:00 Temperature
[2021-09-11] MEDS: carvediloL 25 MG TABLET PO (21:13)
[2021-09-11] MEDS: POTASSIUM CHLORIDE 20 MEQ PACKET (FOR LIQUID) 40 MEQ PO (21:13)
[2021-09-12] VITALS (12 sets, daily range): BP systolic 112–154; BP diastolic 57–88; PULSE 73–93; RESP 16–20; TEMP 36.2–37.1; O2SAT 92–100
[2021-09-12] MEDS: SIMVASTATIN 20 MG TABLET PO (08:36)
[2021-09-12] MEDS: allopurinoL 150 MG TABLET PO (08:36)
[2021-09-12] MEDS: CLOPIDOGREL BISULFATE 75 MG TABLET PO (08:36)
[2021-09-12] MEDS: PANTOPRAZOLE 40 MG TABLET PO ×2 (08:36→18:05)
[2021-09-12] MEDS: POTASSIUM CHLORIDE 20 MEQ PACKET (FOR LIQUID) 40 MEQ PO (08:36)
[2021-09-12] MEDS: FUROSEMIDE INJ 40 MG/4 ML VIAL IV PUSH ×2 (08:36→18:05)
[2021-09-12] MEDS: TAMSULOSIN HCL 0.4 MG CAPSULE PO (08:36)
[2021-09-12] MEDS: carvediloL 25 MG TABLET PO ×2 (08:36→20:00)
[2021-09-12] MEDS: CHOLECALCIFEROL 1,000 UNITS TABLET 5000 UNITS BY MOUTH (08:36)
[2021-09-12 09:47] LABS: Eosinophils Absolute Auto 0.1 K/mm3 (0-0.3); Eosinophils Percent Auto 1.9 % (0-4.4); Hematocrit 37.4 % (42.0-52.0); Hemoglobin 11.5 g/dL (14.0-18.0); Immature Granulocyte Absolute 0.01 K/mm3 (0.00-0.031); Immature Granulocyte Percent A 0.2 % (0-0.5); Lymphocytes Absolute Auto 0.64 K/mm3 (0.9-3.2); Lymphocytes Percent Auto 14.8 % (18.3-44.2); Mean Corpuscular HGB Conc 30.7 g/dl (32-36); Mean Corpuscular Hemoglobin 26.1 pg (26-34); Mean Corpuscular Volume 84.8 fl (80-100); Mean Platelet Volume 9.8 fl (7.4-10.4); Monocytes Absolute Auto 0.4 K/mm3 (0.1-0.6); Monocytes Percent Auto 8.4 % (2.6-8.5); Neutrophils Absolute Auto 3.2 K/mm3 (1.3-6.7); Neutrophils Percent Auto 74.7 % (45.5-73.1); Platelet Count Result 257 k/mm3 (150-375); Red Blood Count 4.41 M/mm3 (4.6-6.20); White Blood Count 4.3 K/mm3 (4.5-10.0)
[2021-09-12 09:59] LABS: Alanine Aminotransferase 24 U/L (4-50)
[2021-09-12 10:00] LABS: Anion Gap 9 mmol/L (8-16); Blood Urea Nitrogen 17 mg/dL (9-20); Calcium 8.7 mg/dL (8.4-10.2); Carbon Dioxide 30 mmol/L (22-30); Chloride 98 mmol/L (98-107); Estimated CRCL calculation 69 ml/min; Estimated Glomerular Filt Rate > 60; Glucose 116 mg/dL (65-110); Potassium 4.2 mmol/L (3.4-5.0); Sodium 137 mmol/L (137-145)
[2021-09-12 10:04] LABS: INR 1.4; Prothrombin Time 17.2 Seconds (11.1-14.7)
[2021-09-12] MEDS: REMDESIVIR 200 MG/NS 250 ML 200 MG/250 ML BAG 250 MG IVPB (11:35)
[2021-09-12] MEDS: FLUTICASONE/UMECLIDIN/VILANTER 100-62.5-25 MCG ELLIPTA 1 PUFF INHALATION (12:16)
[2021-09-12 13:00] LABS: Glucose Point of Care 147 mg/dl (65-105)
[2021-09-12 16:40] LABS: Glucose Point of Care 146 mg/dl (65-105)
[2021-09-12] MEDS: RIVAROXABAN 20 MG TABLET PO (18:05)
--- NOTE | 2021-09-12 18:17 | PM.IMPN ---
Progress Note: A&P Assessment and Plan (1) CHF exacerbation: Code(s): I50.9 - Heart failure, unspecified Status: Acute Assessment and Plan: Continue IV diuresis with Lasix 40 mg b.i.d. with close monitoring of volume status and renal function. Potassium was low at 3.1 and was supplemented, improving to 4.2 today. Kidney function stable with creatinine of 0.9. (2) Pneumonia due to COVID-19 virus: Code(s): U07.1 - COVID-19; J12.82 - Pneumonia due to coronavirus disease 2018 Status: Acute Assessment and Plan: Acute hypoxic respiratory failure with new O2 requirement at 6 L. Patient initially presented with a picture of CHF; however due to oxygen requirement not improving this despite effective diuresis, patient was investigated for COVID and found to be positive. Patient promptly started on remdesivir and exam it was own. Pulmonary service will be consulted in the morning. chest x-ray and ABGs reviewed. -COVID pneumonia, patient was tested positive on 08/12/2021 -continue bronchodilators, add Pulmicort -Remdesivir was initiated on 09/12/2021 -continue dexamethasone and Baricitinib -continue droplet, airborne, contact isolation/precautions (3) Hypoxia: Code(s): R09.02 - Hypoxemia Status: Acute Assessment and Plan: Presumably secondary to CHF however his oxygen requirement seems to be a bit higher than what I expect he would need based on his chest x-ray findings. Currently being treated for COVID pneumonia. (4) Chronic anemia: Code(s): D64.9 - Anemia, unspecified Status: Acute Assessment and Plan: Hemoglobin and hematocrit are stable on review of previous labs. (5) Hyponatremia: Code(s): E87.1 - Hypo-osmolality and hyponatremia Status: Acute Assessment and Plan: Resolved. Likely due to volume overload. Monitor closely while diuresing. (6) Elevated troponin: Code(s): R77.8 - Other specified abnormalities of plasma proteins Status: Acute Assessment and Plan: Patient is not having any chest pain likely these are elevated in the setting of CHF. (7) Coronary artery disease: Qualifiers: Associated angina: unspecified whether angina present Coronary Disease-Associated Artery/Lesion type: unspecified vessel or lesion type [place] vs. transplanted heart: unspecified whether [place] or transplanted heart Qualified Code(s): I25.10 - Atherosclerotic heart disease of [place] coronary artery without angina pectoris Code(s): I25.10 - Atherosclerotic heart disease of [place] coronary artery without angina pectoris Status: Acute Assessment and Plan: Status post CABG many years ago and cardiac stent within the last 1 week. Due for follow-up with his motor assembler at [facility] on Tuesday. Continue clopidogrel, carvedilol, and simvastatin. Subjective Date/time seen: 09/12/21 12:17 S: Patient is examined at the bedside. He is eating his breakfast with appetite. Patient is anxious to go home. Currently breathing oxygen on 6 L. No previous O2 requirement. Review of Systems Review of Systems: All systems reviewed & are unremarkable except as noted in HPI and below Constitutional: Constitutional: Reports as per HPI Eyes: Eyes: Reports as per HPI and Reports no additional eye complaints ENT: Reports as per HPI and Denies epistaxis Cardiovascular: Cardiovascular: Reports as per HPI and Denies leg edema Respiratory: Respiratory: Reports as per HPI, Reports dyspnea and Reports dyspnea on exertion Gastrointestinal: Gastrointestinal: Reports as per HPI, Denies diarrhea, Denies nausea and Denies vomiting Musculoskeletal: Musculoskeletal: Reports as per HPI Integumentary/Breasts: Skin/Breast: Reports as per HPI and Denies rash Neurologic: Reports as per HPI and Denies confusion Psychiatric: Psychiatric: Reports as per HPI Exam Narrative: General: Mildly ill-appearing male si
[2021-09-12 19:21] LABS: Hematocrit 37.7 % (42.0-52.0); Hemoglobin 11.5 g/dL (14.0-18.0); Immature Granulocyte Absolute 0.01 K/mm3 (0.00-0.031); Immature Granulocyte Percent A 0.4 % (0-0.5); Lymphocytes Absolute Auto 0.22 K/mm3 (0.9-3.2); Lymphocytes Percent Auto 7.7 % (18.3-44.2); Mean Corpuscular HGB Conc 30.5 g/dl (32-36); Mean Corpuscular Volume 85.1 fl (80-100); Mean Platelet Volume 10.2 fl (7.4-10.4); Monocytes Absolute Auto 0.1 K/mm3 (0.1-0.6); Monocytes Percent Auto 3.2 % (2.6-8.5); Neutrophils Absolute Auto 2.5 K/mm3 (1.3-6.7); Neutrophils Percent Auto 88.7 % (45.5-73.1); Platelet Count Result 284 k/mm3 (150-375); Red Blood Count 4.43 M/mm3 (4.6-6.20); Red Cell Distribution Width 19.4 % (11.5-14.5); White Blood Count 2.8 K/mm3 (4.5-10.0)
[2021-09-12 19:30] LABS: Alanine Aminotransferase 26 U/L (4-50); Aspartate Amino Transferase 49 U/L (17-59); Estimated CRCL calculation 69 ml/min; Estimated Glomerular Filt Rate > 60
[2021-09-12 20:41] LABS: Glucose Point of Care 189 mg/dl (65-105)
[2021-09-13] VITALS (9 sets, daily range): BP systolic 104–127; BP diastolic 63–91; PULSE 81–100; RESP 18–24; TEMP 36.2–36.7; O2SAT 92–96
[2021-09-13 07:32] LABS: Hematocrit 36.9 % (42.0-52.0); Immature Granulocyte Absolute 0.01 K/mm3 (0.00-0.031); Immature Granulocyte Percent A 0.3 % (0-0.5); Lymphocytes Absolute Auto 0.52 K/mm3 (0.9-3.2); Lymphocytes Percent Auto 14.6 % (18.3-44.2); Mean Corpuscular HGB Conc 29.8 g/dl (32-36); Mean Corpuscular Hemoglobin 25.6 pg (26-34); Mean Platelet Volume 10.5 fl (7.4-10.4); Monocytes Absolute Auto 0.3 K/mm3 (0.1-0.6); Monocytes Percent Auto 8.4 % (2.6-8.5); Neutrophils Absolute Auto 2.7 K/mm3 (1.3-6.7); Neutrophils Percent Auto 76.7 % (45.5-73.1); Platelet Count Result 275 k/mm3 (150-375); Red Blood Count 4.29 M/mm3 (4.6-6.20); Red Cell Distribution Width 18.9 % (11.5-14.5); White Blood Count 3.6 K/mm3 (4.5-10.0)
[2021-09-13 07:44] LABS: Alanine Aminotransferase 22 U/L (4-50); Anion Gap 8 mmol/L (8-16); Aspartate Amino Transferase 39 U/L (17-59); Blood Urea Nitrogen 17 mg/dL (9-20); CRP 5.5 mg/dL (<1.0); Calcium 8.6 mg/dL (8.4-10.2); Carbon Dioxide 28 mmol/L (22-30); Chloride 99 mmol/L (98-107); Estimated CRCL calculation 69 ml/min; Estimated Glomerular Filt Rate > 60; Glucose 138 mg/dL (65-110); Lactate Dehydrogenase 716 U/L (313-618); Potassium 3.6 mmol/L (3.4-5.0); Sodium 135 mmol/L (137-145)
[2021-09-13 07:49] LABS: INR 2.5; Prothrombin Time 26.3 Seconds (11.1-14.7)
[2021-09-13 08:09] LABS: Anisocytosis 1+ (NORMAL); Ovalocytes 1+ (NORMAL); Platelet Estimate Adequate (Adequate)
[2021-09-13 08:24] LABS: Glucose Point of Care 131 mg/dl (65-105)
[2021-09-13] MEDS: REMDESIVIR 100 MG/NS 250 ML 100 MG/250 ML BAG 250 MG IVPB (11:35)
[2021-09-13] MEDS: CHOLECALCIFEROL 1,000 UNITS TABLET 5000 UNITS BY MOUTH (11:36)
[2021-09-13] MEDS: carvediloL 25 MG TABLET PO ×2 (11:36→20:38)
[2021-09-13] MEDS: allopurinoL 150 MG TABLET PO (11:37)
[2021-09-13] MEDS: CLOPIDOGREL BISULFATE 75 MG TABLET PO (11:37)
[2021-09-13] MEDS: TAMSULOSIN HCL 0.4 MG CAPSULE PO (11:37)
[2021-09-13] MEDS: PANTOPRAZOLE 40 MG TABLET PO ×2 (11:38→18:14)
[2021-09-13] MEDS: SIMVASTATIN 20 MG TABLET PO (11:38)
[2021-09-13] MEDS: BARICITINIB 2 MG TABLET 4 MG PO (11:38)
[2021-09-13] MEDS: FUROSEMIDE INJ 40 MG/4 ML VIAL IV PUSH ×2 (11:39→18:10)
[2021-09-13 11:53] LABS: Glucose Point of Care 135 mg/dl (65-105)
[2021-09-13 17:28] LABS: Glucose Point of Care 171 mg/dl (65-105)
--- NOTE | 2021-09-13 17:45 | PM.IMPN ---
Progress Note: A&P Assessment and Plan (1) CHF exacerbation: Code(s): I50.9 - Heart failure, unspecified Status: Acute Assessment and Plan: Continue IV diuresis with Lasix 40 mg b.i.d. with close monitoring of volume status and renal function. Potassium is 3.6. Kidney function stable with creatinine of 0.9. (2) Pneumonia due to COVID-19 virus: Code(s): U07.1 - COVID-19; J12.82 - Pneumonia due to coronavirus disease 2019 Status: Acute Assessment and Plan: Acute hypoxic respiratory failure with new O2 requirement stable at 6 L. Patient initially presented with a picture of CHF; however due to oxygen requirement not improving this despite effective diuresis, patient was investigated for COVID and found to be positive. Patient promptly started on remdesivir, dexamethasone and baricitinib. Pulmonary service will be consulted in the morning. chest x-ray and ABGs reviewed. -COVID pneumonia, patient was tested positive on 08/12/2021 -continue bronchodilators, and Pulmicort -Remdesivir was initiated on 09/12/2021 -continue dexamethasone and Baricitinib -continue droplet, airborne, contact isolation/precautions (3) Hypoxia: Code(s): R09.02 - Hypoxemia Status: Acute Assessment and Plan: Presumably secondary to CHF, improving with diuresis. Certainly hypoxia is secondary to COVID pneumonia, with CHF playing a contributing role. (4) Chronic anemia: Code(s): D64.9 - Anemia, unspecified Status: Acute Assessment and Plan: Anemia is mild and well tolerated normocytic and hypochromic with an hemoglobin of 11. Check iron stores. (5) Hyponatremia: Code(s): E87.1 - Hypo-osmolality and hyponatremia Status: Acute Assessment and Plan: Resolved. Likely due to volume overload. Monitor closely while diuresing. (6) Elevated troponin: Code(s): R77.8 - Other specified abnormalities of plasma proteins Status: Acute Assessment and Plan: Patient is not having any chest pain likely these are elevated in the setting of CHF. (7) Coronary artery disease: Qualifiers: Coronary Disease-Associated Artery/Lesion type: unspecified vessel or lesion type [place] vs. transplanted heart: unspecified whether [place] or transplanted heart Associated angina: unspecified whether angina present Qualified Code(s): I25.10 - Atherosclerotic heart disease of [place] coronary artery without angina pectoris Code(s): I25.10 - Atherosclerotic heart disease of [place] coronary artery without angina pectoris Status: Acute Assessment and Plan: Currently asymptomatic and chest pain-free. Status post CABG many years ago and cardiac stent within the last 1 week. 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 Continue clopidogrel, carvedilol, and simvastatin. Subjective Date/time seen: 09/13/21 11:55 S: Patient examined at the bedside. He is anxious to go home. Sleep is okay and appetite is preserved. He is breathing oxygen on 6 L by nasal cannula. Review of Systems Review of Systems: All systems reviewed & are unremarkable except as noted in HPI and below Constitutional: Constitutional: Reports as per HPI Eyes: Eyes: Reports as per HPI and Reports no additional eye complaints ENT: Reports as per HPI and Denies epistaxis Cardiovascular: Cardiovascular: Reports as per HPI, Denies leg edema, Reports dyspnea and Reports dyspnea on exertion Respiratory: Respiratory: Reports as per HPI, Reports dyspnea and Reports dyspnea on exertion Gastrointestinal: Gastrointestinal: Reports as per HPI, Denies diarrhea, Denies nausea and Denies vomiting Musculoskeletal: Musculoskeletal: Reports as per HPI Integumentary/Breasts: Skin/Breast: Reports as per HPI and Denies rash Neurologic: Reports as per HPI and Denies confusion Psychiatric: Psychiatric: Reports as per HPI and Denies confusion Exam Narrative:
[2021-09-13] MEDS: RIVAROXABAN 20 MG TABLET PO (18:10)
[2021-09-13 21:14] LABS: Glucose Point of Care 154 mg/dl (65-105)
[2021-09-14] VITALS (11 sets, daily range): BP systolic 108–128; BP diastolic 60–80; PULSE 80–88; RESP 16–18; TEMP 36.4–36.7; O2SAT 87–98
[2021-09-14 06:59] LABS: Basophils Percent Auto 0.1 % (0.2-1.2); Hematocrit 37.4 % (42.0-52.0); Hemoglobin 11.3 g/dL (14.0-18.0); Immature Granulocyte Absolute 0.05 K/mm3 (0.00-0.031); Immature Granulocyte Percent A 0.7 % (0-0.5); Lymphocytes Absolute Auto 0.65 K/mm3 (0.9-3.2); Lymphocytes Percent Auto 9.6 % (18.3-44.2); Mean Corpuscular HGB Conc 30.2 g/dl (32-36); Mean Corpuscular Hemoglobin 25.2 pg (26-34); Mean Corpuscular Volume 83.3 fl (80-100); Mean Platelet Volume 9.9 fl (7.4-10.4); Monocytes Absolute Auto 0.5 K/mm3 (0.1-0.6); Monocytes Percent Auto 7.7 % (2.6-8.5); Neutrophils Absolute Auto 5.5 K/mm3 (1.3-6.7); Neutrophils Percent Auto 81.9 % (45.5-73.1); Platelet Count Result 366 k/mm3 (150-375); Red Blood Count 4.49 M/mm3 (4.6-6.20); Red Cell Distribution Width 18.7 % (11.5-14.5); White Blood Count 6.8 K/mm3 (4.5-10.0)
[2021-09-14 07:09] LABS: INR 2.4; Prothrombin Time 25.4 Seconds (11.1-14.7)
[2021-09-14 07:14] LABS: Alanine Aminotransferase 25 U/L (4-50); Anion Gap 9 mmol/L (8-16); Aspartate Amino Transferase 37 U/L (17-59); Blood Urea Nitrogen 21 mg/dL (9-20); CRP 3.7 mg/dL (<1.0); Calcium 8.9 mg/dL (8.4-10.2); Carbon Dioxide 30 mmol/L (22-30); Chloride 97 mmol/L (98-107); Estimated CRCL calculation 62 ml/min; Estimated Glomerular Filt Rate > 60; Glucose 133 mg/dL (65-110); Lactate Dehydrogenase 695 U/L (313-618); Potassium 3.6 mmol/L (3.4-5.0); Sodium 136 mmol/L (137-145)
[2021-09-14 08:31] LABS: Glucose Point of Care 126 mg/dl (65-105)
--- NOTE | 2021-09-14 08:43 | PM.IMPN ---
Progress Note: A&P Assessment and Plan (1) CHF exacerbation: Code(s): I50.9 - Heart failure, unspecified Status: Acute Assessment and Plan: Continue PO diuresis with Lasix 40 mgPO b.i.d. with close monitoring of volume status and renal function. Potassium is 3.6. Kidney function stable with creatinine of 0.9. (2) Pneumonia due to COVID-19 virus: Code(s): U07.1 - COVID-19; J12.82 - Pneumonia due to coronavirus disease 2018 Status: Acute Assessment and Plan: Acute hypoxic respiratory failure with new O2 requirement stable at 6 L. Patient initially presented with a picture of CHF; however due to oxygen requirement not improving this despite effective diuresis, patient was investigated for COVID and found to be positive. Patient promptly started on remdesivir, dexamethasone and baricitinib. Pulmonary service will be consulted in the morning. chest x-ray and ABGs reviewed. -COVID pneumonia, patient was tested positive on 08/12/2021 -continue bronchodilators, -Remdesivir was initiated on 09/12/2021 -patient was treated with dexamethasone and Baricitinib -continue droplet, airborne, contact isolation/precautions -patient wants to sign out AMA. Home O2 evaluation done. Patient will be discharged on pod exam it was on an home oxygen. (3) Hypoxia: Code(s): R09.02 - Hypoxemia Status: Acute Assessment and Plan: Presumably secondary to CHF, improving with diuresis. Certainly hypoxia is secondary to COVID pneumonia, with CHF playing a contributing role. Patient will sign out AMA. Patient will be discharged home on oxygen. (4) Chronic anemia: Code(s): D64.9 - Anemia, unspecified Status: Acute Assessment and Plan: Anemia is mild and well tolerated normocytic and hypochromic with an hemoglobin of 11. Patient will be discharged home, he will sign out against medical advice. (5) Hyponatremia: Code(s): E87.1 - Hypo-osmolality and hyponatremia Status: Acute Assessment and Plan: Resolved. Likely due to volume overload. Monitor closely while diuresing. (6) Elevated troponin: Code(s): R77.8 - Other specified abnormalities of plasma proteins Status: Acute Assessment and Plan: Patient is not having any chest pain likely these are elevated in the setting of CHF. (7) Coronary artery disease: Qualifiers: Coronary Disease-Associated Artery/Lesion type: unspecified vessel or lesion type [place] vs. transplanted heart: unspecified whether [place] or transplanted heart Associated angina: unspecified whether angina present Qualified Code(s): I25.10 - Atherosclerotic heart disease of [place] coronary artery without angina pectoris Code(s): I25.10 - Atherosclerotic heart disease of [place] coronary artery without angina pectoris Status: Acute Assessment and Plan: Currently asymptomatic and chest pain-free. Status post CABG many years ago and cardiac stent within the last 1 week. Due for follow-up with his press operator helper at [facility] on Tuesday. Continue clopidogrel, carvedilol, and simvastatin. Patient refuses to continue inpatient treatment. He will sign out AMA and be discharged this afternoon. Subjective Date/time seen: 09/14/21 08:43 S: Patient is examined at the bedside is feeling a little better. He wants to sign out AMA. Review of Systems Review of Systems: All systems reviewed & are unremarkable except as noted in HPI and below Constitutional: Constitutional: Reports as per HPI Eyes: Eyes: Reports as per HPI and Reports no additional eye complaints ENT: Reports as per HPI and Denies epistaxis Cardiovascular: Cardiovascular: Reports as per HPI, Denies leg edema, Reports dyspnea and Reports dyspnea on exertion Respiratory: Respiratory: Reports as per HPI, Reports dyspnea and Reports dyspnea on exertion Gastrointestinal: Gastrointestinal: Reports as per HPI, Denies diarrhea, Denie
[2021-09-14] MEDS: CHOLECALCIFEROL 1,000 UNITS TABLET 5000 UNITS BY MOUTH (09:15)
[2021-09-14] MEDS: BARICITINIB 2 MG TABLET 4 MG PO (09:15)
[2021-09-14] MEDS: carvediloL 25 MG TABLET PO (09:15)
[2021-09-14] MEDS: SIMVASTATIN 20 MG TABLET PO (09:16)
[2021-09-14] MEDS: TAMSULOSIN HCL 0.4 MG CAPSULE PO (09:16)
[2021-09-14] MEDS: PANTOPRAZOLE 40 MG TABLET PO (09:16)
[2021-09-14] MEDS: CLOPIDOGREL BISULFATE 75 MG TABLET PO (09:16)
[2021-09-14] MEDS: allopurinoL 150 MG TABLET PO (09:16)
[2021-09-14] MEDS: FUROSEMIDE INJ 40 MG/4 ML VIAL IV PUSH (09:17)
[2021-09-14] MEDS: REMDESIVIR 100 MG/NS 250 ML 100 MG/250 ML BAG 250 MG IVPB (10:18)
[2021-09-14] MEDS: FLUTICASONE/UMECLIDIN/VILANTER 100-62.5-25 MCG ELLIPTA 1 PUFF INHALATION (10:43)
--- NOTE | 2021-09-14 11:04 | P.CDI_ITS ---
CDI Query Clarification Request Patient was admitted with diagnosis of Acute Exacerbation of CHF. Patient subsequently tested positive for COVID-19. Per record: Patient initially presented with a picture of CHF; however due to oxygen requirement not improving this despite effective diuresis, patient was investigated for COVID and found to be positive. Please clarify type and acuity of CHF if known: * acute * chronic * acute on chronic * systolic * diastolic * combined (both) * unknown <SHAILA Campos - Last Filed: 09/14/21 11:08> Clarified Diagnosis (1) Acute exacerbation of CHF (congestive heart failure): Qualifiers: Heart failure type: unspecified Qualified Code(s): I50.9 - Heart failure, unspecified <SHAILA Campos - Last Filed: 09/14/21 11:08> Code(s): I50.9 - Heart failure, unspecified <SHAILA Campos - Last Filed: 09/14/21 11:08> Status: Acute <SHAILA Campos - Last Filed: 09/14/21 11:08> Assessment and Plan: Acute on chronic heart failure Grade II diastolic dysfunction. Systolic function EF 35%. Echocardiogram other facility 05/08/2021. <Gia Dickson MD - Last Filed: 09/20/21 17:54>
--- NOTE | 2021-09-14 12:16 | HOMEO2EVAL ---
Evaluation was performed at [facility] Home Oxygen Evaluation RC: Home Oxygen (O2) Evaluation Start: 09/14/21 07:59 Freq: ONCE Status: Active Protocol: RPE Activity Type Activity Date Activity User E-Sign Co-Sign Detail Recorded Client Recorded Date Recorded By Document 09/14/21 11:15 JENNIFER [email or web address] 09/14/21 12:16 JENNIFER Document 09/14/21 11:16 JENNIFER [email or web address] 09/14/21 12:16 JENNIFER Document 09/14/21 11:17 JENNIFER [email or web address] 09/14/21 12:16 JENNIFER Document 09/14/21 11:18 JENNIFER [email or web address] 09/14/21 12:16 JENNIFER Document 09/14/21 11:30 JENNIFER [email or web address] 09/14/21 12:16 [facility] 09/14/21 09/14/21 09/14/21 11:15 11:16 11:17 Home O2 Evaluation Test Phase Resting Resting Exercise Oxygen Delivery Room Air Nasal Cannula Nasal Cannula Oxygen Flow Rate (L/min) 1 1 Pulse Oximetry (90-100 %) 87 L 92 87 L Home Oxygen Evaluation Comments Treatment Charges O2 Evaluation - Inpatient 09/14/21 09/14/21 11:18 11:30 Home O2 Evaluation Test Phase Exercise Resting Oxygen Delivery Nasal Cannula Nasal Cannula Oxygen Flow Rate (L/min) 2 1 Pulse Oximetry (90-100 %) 89 L 90 Home Oxygen Evaluation Comments PT REQUIRES 1 L AT REST AND 2 L WITH ACTIVITY Treatment Charges
[2021-09-14 12:27] LABS: Glucose Point of Care 140 mg/dl (65-105)
--- NOTE | 2021-09-14 13:50 | PCRCNOTE ---
HOME O2 SET UP COMPLETE. [facility]. CONTACT NAME MARCIANO PHONE # . TANK FOR TRANPORT HOME WILL BE DELIVERED APPROX 1430. 1L AT REST AND 2 L WITH ACTIVITY
--- NOTE | 2021-09-14 15:15 | PM.DS ---
DS: Admitting Diagnosis Discharge Date 09/17/2021. Admitting Diagnosis (1) CHF exacerbation: (2) Pneumonia due to COVID-19 virus: (3) Hypoxia: (4) Chronic anemia: (5) Hyponatremia: (6) Elevated troponin: (7) Coronary artery disease: DS: Discharge Diagnosis Discharge Diagnosis (1) CHF exacerbation: Code(s): I50.9 - Heart failure, unspecified Status: Acute Assessment and Plan: Continue PO diuresis with Lasix 40 mgPO b.i.d. with close monitoring of volume status and renal function. Potassium is 3.6. Kidney function stable with creatinine of 0.9. (2) Pneumonia due to COVID-19 virus: Code(s): U07.1 - COVID-19; J12.82 - Pneumonia due to coronavirus disease 2019 Status: Acute Assessment and Plan: Acute hypoxic respiratory failure with new O2 requirement stable at 6 L. Patient initially presented with a picture of CHF; however due to oxygen requirement not improving this despite effective diuresis, patient was investigated for COVID and found to be positive. Patient promptly started on remdesivir, dexamethasone and baricitinib. Pulmonary service will be consulted in the morning. chest x-ray and ABGs reviewed. -COVID pneumonia, patient was tested positive on 08/12/2021 -continue bronchodilators, -Remdesivir was initiated on 09/12/2021 -patient was treated with dexamethasone and Baricitinib -continue droplet, airborne, contact isolation/precautions -patient wants to sign out AMA. Home O2 evaluation done. Patient will be discharged on pod exam it was on an home oxygen. (3) Hypoxia: Code(s): R09.02 - Hypoxemia Status: Acute Assessment and Plan: Presumably secondary to CHF, improving with diuresis. Certainly hypoxia is secondary to COVID pneumonia, with CHF playing a contributing role. Patient will sign out AMA. Patient will be discharged home on oxygen. (4) Chronic anemia: Code(s): D64.9 - Anemia, unspecified Status: Acute Assessment and Plan: Anemia is mild and well tolerated normocytic and hypochromic with an hemoglobin of 11. Patient will be discharged home, he will sign out against medical advice. (5) Hyponatremia: Code(s): E87.1 - Hypo-osmolality and hyponatremia Status: Acute Assessment and Plan: Resolved. Likely due to volume overload. Monitor closely while diuresing. (6) Elevated troponin: Code(s): R77.8 - Other specified abnormalities of plasma proteins Status: Acute Assessment and Plan: Patient is not having any chest pain likely these are elevated in the setting of CHF. (7) Coronary artery disease: Qualifiers: Associated angina: unspecified whether angina present Coronary Disease-Associated Artery/Lesion type: unspecified vessel or lesion type [place] vs. transplanted heart: unspecified whether [place] or transplanted heart Qualified Code(s): I25.10 - Atherosclerotic heart disease of [place] coronary artery without angina pectoris Code(s): I25.10 - Atherosclerotic heart disease of [place] coronary artery without angina pectoris Status: Acute Assessment and Plan: Currently asymptomatic and chest pain-free. Status post CABG many years ago and cardiac stent within the last 1 week. 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 Continue clopidogrel, carvedilol, and simvastatin. Patient refuses to continue inpatient treatment. He will sign out AMA and be discharged this afternoon. DS: Summary Hospital Course Reason for hospitalization: Low oxygen level. Hospital Course: Please refer to admission H& P. Briefly, this is a 81-year-old male with coronary artery disease and congestive heart failure presented to the emergency department earlier today from Radiology for evaluation after he was found to have low oxygen levels. He had a cardiac catheterization stent placed at [facility] approximately 1 month ago. About a week thereafter he deve
== END 2021-09-14 15:15 | disposition left against medical advice (07) | DRG 177 ==
LOC: ANHED 17:24 → ANHIMU 19:01 → ANH3MEDSUR 09-12 15:41
PROVIDERS: Physician Assistant; Admitting Provider Internal Medicine; Emergency Provider Emergency Medicine; PCP Internal Medicine; Visit Provider Internal Medicine
DX: U07.1 COVID-19 (principal); J12.82 Pneumonia due to coronavirus disease 2019; J96.01 Acute respiratory failure with hypoxia; E87.1 Hypo-osmolality and hyponatremia; I50.9 Heart failure, unspecified; D64.9 Anemia, unspecified; I25.10 Atherosclerotic heart disease of native coronary artery without angina pectoris; F41.9 Anxiety disorder, unspecified; N40.0 Benign prostatic hyperplasia without lower urinary tract symptoms; K21.9 Gastro-esophageal reflux disease without esophagitis; E78.2 Mixed hyperlipidemia; M19.90 Unspecified osteoarthritis, unspecified site; Z96.651 Presence of right artificial knee joint; Z95.1 Presence of aortocoronary bypass graft; Z98.1 Arthrodesis status; Z95.0 Presence of cardiac pacemaker; Z87.891 Personal history of nicotine dependence
CPT/HCPCS: 36415; 36600; 71045; 71046; 80048; 80053; 81001; 82565; 82728; 82805; 82948; 83615; 83735; 83880; 84450; 84460; 84484; 85025; 85027; 85610; 85730; 86140; 93005; 93970; 94618; 94640; 96374; 96376; 97161; 99285; A9270; C9803; G0378; J1100; J1940; U0003; U0005

== ENCOUNTER 2021-09-17 14:06 | Outpatient (CLI) | payer MEDICARE, SELFPAY ==
--- NOTE | ~2021-09-17 | XR_ITS ---
XR chest 2V 09/17/2021 14:38 Indication: Covid 19. Shortness of breath. Procedure: PA and lateral views of the chest Comparison: Comparison to multiple prior studies sequentially, with oldest reviewed study dated 06/2021. Findings: No significant change to patchy bilateral airspace disease peripherally, consistent with pn eumonia. Status post median sternotomy for CABG. Pacemaker leads in expected position. Impression: 1: Stable patchy bilateral airspace disease, compatible with pneumonia. Reviewed, dictated and finalized at location A. LATOR SERVICE MECHANIC Impression: 1: Stable patchy bilateral airspace disease, compatible with pneumonia.
[2021-09-17 14:24] LABS: Basophils Percent Auto 0.2 % (0.2-1.2); Eosinophils Absolute Auto 0.3 K/mm3 (0-0.3); Eosinophils Percent Auto 2.8 % (0-4.4); Hematocrit 40.9 % (42.0-52.0); Hemoglobin 12.4 g/dL (14.0-18.0); Immature Granulocyte Absolute 0.09 K/mm3 (0.00-0.031); Immature Granulocyte Percent A 0.9 % (0-0.5); Lymphocytes Absolute Auto 0.81 K/mm3 (0.9-3.2); Lymphocytes Percent Auto 7.7 % (18.3-44.2); Mean Corpuscular HGB Conc 30.3 g/dl (32-36); Mean Corpuscular Hemoglobin 26.3 pg (26-34); Mean Corpuscular Volume 86.8 fl (80-100); Mean Platelet Volume 10.1 fl (7.4-10.4); Monocytes Absolute Auto 0.8 K/mm3 (0.1-0.6); Monocytes Percent Auto 7.6 % (2.6-8.5); Neutrophils Absolute Auto 8.6 K/mm3 (1.3-6.7); Neutrophils Percent Auto 80.8 % (45.5-73.1); Platelet Count Result 399 k/mm3 (150-375); Red Blood Count 4.71 M/mm3 (4.6-6.20); Red Cell Distribution Width 19.1 % (11.5-14.5); White Blood Count 10.6 K/mm3 (4.5-10.0)
[2021-09-17 14:35] LABS: Anion Gap 4 mmol/L (8-16); Blood Urea Nitrogen 22 mg/dL (9-20); Calcium 8.9 mg/dL (8.4-10.2); Carbon Dioxide 32 mmol/L (22-30); Chloride 99 mmol/L (98-107); Estimated Glomerular Filt Rate 53; Glucose 130 mg/dL (65-110); Potassium 3.8 mmol/L (3.4-5.0); Sodium 135 mmol/L (137-145)
[2021-09-17 14:43] LABS: NT Pro B Type Natriuretic Pept 2170 pg/mL (5-100)
== END 2021-09-17 14:07 | disposition home or self-care (01) ==
PROVIDERS: PCP Internal Medicine; Visit Provider Internal Medicine
DX: U07.1 COVID-19 (principal); J12.82 Pneumonia due to coronavirus disease 2019; R05.9 Cough, unspecified; I10 Essential (primary) hypertension; I50.9 Heart failure, unspecified; R06.02 Shortness of breath; R91.8 Other nonspecific abnormal finding of lung field
CPT/HCPCS: 36415; 71046; 80048; 83880; 85025

== ENCOUNTER 2021-09-30 12:06 | Outpatient (CLI) | payer MEDICARE, SELFPAY ==
--- NOTE | ~2021-09-30 | XR_ITS ---
EXAMINATION: XR chest 2V DATE: 09/30/2021 12:22 INDICATION: COVID-19 pneumonia. Positive 09/11/21 TECHNIQUE: Frontal and lateral views of the chest were obtained. COMPARISON: Chest 2 views 09/17/2021, 08/24/2021, 02/18/2020, chest CT 09/07/2016 FINDINGS: The lung volumes are normal. There are airspace opacities in the mid and lower lung zones. No pleural effusion or pneumothorax. Cardiomegaly is noted. Median sternotomy wires are noted. There is a left chest wall pacer with leads in the right atrium and right ventricle. IMPRESSION: 1. Stable airspace opacities in the mid and lower lung zones, consistent with COVID-19 pneumonia. 2. Cardiomegaly. Reviewed, dictated and finalized at location A. [employer] IMPRESSION: 1. Stable airspace opacities in the mid and lower lung zones, consistent with C OVID-19 pneumonia. 2. Cardiomegaly.
== END 2021-09-30 12:07 | disposition home or self-care (01) ==
LOC: ANHIMG 12:09
PROVIDERS: PCP Internal Medicine; Visit Provider Internal Medicine
DX: U07.1 COVID-19 (principal); J12.82 Pneumonia due to coronavirus disease 2019; I51.7 Cardiomegaly; R91.8 Other nonspecific abnormal finding of lung field
CPT/HCPCS: 71046

== ENCOUNTER 2021-10-26 09:13 | Outpatient (CLI) | payer MEDICARE, SELFPAY ==
--- NOTE | ~2021-10-26 | XR_ITS ---
XR chest 2V 10/26/2021 09:23 Indication: Increasing shortness of breath. Covid. Procedure: PA and lateral views of the chest Comparison: Comparison to multiple prior studies sequentially, with oldest reviewed study dated 09/03. Findings: Status post median sternotomy for CABG. Borderline heart size. Pacemaker leads are stable. No focal air space disease, pulmonary edema, pleural effusion or suspected pneumothorax. No significa nt effusion or pneumothorax. Impression: 1: Stable bilateral airspace disease, compatible with pneumonia. Reviewed, dictated and finalized at location B. TECH Impression: 1: Stable bilateral airspace disease, compatible with pneumonia.
== END 2021-10-26 09:14 | disposition home or self-care (01) ==
PROVIDERS: PCP Internal Medicine; Visit Provider Internal Medicine
DX: R05.9 Cough, unspecified (principal); R91.8 Other nonspecific abnormal finding of lung field
CPT/HCPCS: 71046

== ENCOUNTER 2021-10-29 14:08 | Outpatient (CLI) | payer MEDICARE, SELFPAY ==
--- NOTE | ~2021-10-29 | CT_ITS ---
EXAMINATION:CT chest high resolution wo co DATE: 10/29/2021 15:01 INDICATION: Dyspnea, unspecified. TECHNIQUE: Computed tomography (CT) of the chest was performed without intravenous contrast. Automate d exposure control and iterative reconstruction technique were employed. The dose-length product (DLP ) was 372.05 mGy-cm. COMPARISON: Chest CT 09/07/2016, chest 2 views 10/26/2021 FINDINGS: There is widespread peripheral septal thickening in the lungs associated with groundglass o pacities with a lower lung predominance. There is a small area of honeycombing in right upper lobe. N o pleural effusion. Cardiomegaly is noted. There are coronary artery calcifications. There are change s of coronary artery bypass grafting. There is a left chest wall pacer with leads in the right atrium and right ventricle. There is a small sliding hiatal hernia. The liver demonstrates a nodular surfac e contour, consistent with cirrhosis. There is a 6.7 cm cyst in left kidney. There is moderate thorac ic spondylosis. IMPRESSION: 1. 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 2. Cardiomegaly. 3. Small sliding hiatal hernia. 4. Cirrhosis of the liver. Reviewed, dictated and finalized at location A. [employer] HYGIENE CONSULTANT IMPRESSION: 1. Chronic interstitial lung disease in a pattern of usual interstitial pneumon ia (UIP), worsened from 09/07/2016. 2. Cardiomegaly. 3. Small sliding hiatal hernia. 4. Cirrhosis of the liver.
[2021-10-29 15:03] LABS: Hematocrit 35.5 % (42.0-52.0); Hemoglobin 11.1 g/dL (14.0-18.0); Mean Corpuscular HGB Conc 31.3 g/dl (32-36); Mean Corpuscular Hemoglobin 27.3 pg (26-34); Mean Corpuscular Volume 87.2 fl (80-100); Mean Platelet Volume 10.2 fl (7.4-10.4); Platelet Count Result 286 k/mm3 (150-375); Red Blood Count 4.07 M/mm3 (4.6-6.20); Red Cell Distribution Width 22.7 % (11.5-14.5); White Blood Count 9.5 K/mm3 (4.5-10.0)
[2021-10-29 15:16] LABS: Albumin Level 4.5 g/dL (3.5-5.1); Anion Gap 12 mmol/L (8-16); Blood Urea Nitrogen 28 mg/dL (9-20); Calcium 9.3 mg/dL (8.4-10.2); Carbon Dioxide 23 mmol/L (22-30); Chloride 104 mmol/L (98-107); Estimated Glomerular Filt Rate 49; Glucose 160 mg/dL (65-110); Phosphorus 3.9 mg/dL (2.5-4.5); Sodium 139 mmol/L (137-145)
[2021-10-29 15:25] LABS: Complement C3 113 mg/dL (88-165)
[2021-10-29 15:27] LABS: Parathyroid Intact 46.4 pg/mL (7.5-53.5)
[2021-10-29 15:36] LABS: Creatinine Urine 24.7 mg/dL; Total Protein Urine Random 18 mg/dL; Ur Ttl Prot Creatinine Ratio 0.73 mg/mg (0-0.20)
[2021-10-29 16:06] LABS: Erythrocyte Sedimentation Rate 15 mm/hr (0-20)
[2021-10-30 15:10] LABS: Folic Acid > 20.0 ng/mL (2.76->20); Vitamin B12 > 1000.0 pg/mL (239-931)
[2021-11-02 16:22] LABS: Kappa\\Lambda Light Chains 1.56 (0.26-1.65); Lambda Light Chain 21.7 mg/L (5.7-26.3)
[2021-11-03 13:29] LABS: Complement Total CH50 >60 U/mL (31-60)
== END 2021-10-29 14:09 | disposition home or self-care (01) ==
LOC: ANHIMG 14:11
PROVIDERS: PCP Internal Medicine; Visit Provider Internal Medicine
DX: U07.1 COVID-19 (principal); N18.31 Chronic kidney disease, stage 3a; R06.02 Shortness of breath; R06.00 Dyspnea, unspecified; J12.82 Pneumonia due to coronavirus disease 2019; K74.60 Unspecified cirrhosis of liver; K44.9 Diaphragmatic hernia without obstruction or gangrene; I51.7 Cardiomegaly; I25.10 Atherosclerotic heart disease of native coronary artery without angina pectoris; Z95.1 Presence of aortocoronary bypass graft; M47.814 Spondylosis without myelopathy or radiculopathy, thoracic region; N28.1 Cyst of kidney, acquired
CPT/HCPCS: 36415; 71250; 80069; 82570; 82607; 82728; 82746; 83540; 83550; 83883; 83970; 84156; 85027; 85652; 86038; 86039; 86160; 86162; 86334

== ENCOUNTER 2021-10-31 09:22 | Outpatient (CLI) | payer MEDICARE, SELFPAY ==
[2021-11-05 15:50] LABS: Measured Kappa Chains <1.00 mg/dL (<2.00); Measured Lambda Chains <1.00 mg/dL (<2.00); Pro/Creat Ratio 134 mg/g creat (<=114)
[2021-11-12 14:33] LABS: Protein,total, 24 Hr Ur 120 mg/24h
== END 2021-10-31 09:23 | disposition home or self-care (01) ==
PROVIDERS: PCP Internal Medicine; Visit Provider Internal Medicine Nephrology
DX: N18.31 Chronic kidney disease, stage 3a (principal)
CPT/HCPCS: 86335

== ENCOUNTER 2021-11-03 11:33 | Outpatient (CLI) | payer MEDICARE, SELFPAY ==
[2021-11-03 13:41] LABS: Iron 54 ug/dL (49-181)
[2021-11-03 13:53] LABS: Percent Iron Saturation 11 % (20-50)
== END 2021-11-03 11:34 | disposition home or self-care (01) ==
LOC: ANHLAB 11:36
PROVIDERS: PCP Internal Medicine; Referring Provider Internal Medicine Nephrology; Visit Provider Internal Medicine
DX: D64.9 Anemia, unspecified (principal)
CPT/HCPCS: 36415; 82728; 83540; 83550

== ENCOUNTER 2021-11-16 14:26 | Outpatient (CLI) | payer MEDICARE, SELFPAY ==
[2021-11-16 15:02] LABS: Anion Gap 8 mmol/L (8-16); Blood Urea Nitrogen 28 mg/dL (9-20); Calcium 8.8 mg/dL (8.4-10.2); Carbon Dioxide 29 mmol/L (22-30); Chloride 104 mmol/L (98-107); Cholesterol 94 mg/dL (0-200); Estimated Glomerular Filt Rate 49; Glucose 108 mg/dL (65-110); HDL Direct 48 mg/dL; Potassium 4.2 mmol/L (3.4-5.0); Sodium 141 mmol/L (137-145); Triglycerides 87 mg/dL (<150)
[2021-11-16 15:13] LABS: LDL Cholesterol Direct 36 mg/dL
== END 2021-11-16 14:27 | disposition home or self-care (01) ==
PROVIDERS: PCP Internal Medicine; Visit Provider Internal Medicine
DX: Z79.899 Other long term (current) drug therapy (principal); E78.2 Mixed hyperlipidemia; E11.9 Type 2 diabetes mellitus without complications
CPT/HCPCS: 36415; 80048; 80061; 83036

== ENCOUNTER 2021-11-17 01:59 | Day surgery (SDC) | payer MEDICARE, SELFPAY ==
[2021-11-09 13:31] VITALS: BMI 31.8
--- NOTE | 2021-11-12 09:57 | PC.NURSE ---
SPOKE WITH DR. CANTU 11/10/21 CONCERNING CARDIOLOGY CALL, DR. KOTHARI DOES NOT WANT PATIENT TO HOLD PLAVIX OR XARELTO AT THIS TIME DUE TO HAVE PCI 07/2021, WOULD BE ABLE TO HOLD IN APPROX. [address] CANTU WISHES TO PROCEED WITH EGD. SPOKE WITH DR. ZHOU OFFICE AND PT HAD CALLED AND DID NOT WANT TO PROCEED DUE TO CARDIOLOGY NOT WANTING TO STOP BLOOD THINNERS, I CALLED JUAN IN DR. CANTU OFFICE AND SPOKE WITH HER ABOUT THIS, SHE SPOKE TO DR. CANTU WHO CALLED PT AND TALKED WITH HIM AND WILL PROCEED WITHOUT STOPPING BLOOD THINNERS. I SPOKE WITH DR. PEARCE CONCERNING THIS PATIENT, HE IS IN AGREEMENT TO PROCEED WITH EGD BUT WISHES THE PATIENT AND DR. CANTU TO KNOW THAT PT HAD A ESOPHAGEAL WEB 01/2021 THAT WAS DILATED AT THAT TIME AND THAT IF PT IS HAVING ANY ISSUES WITH THIS HE WILL NOT BE ABLE TO DILATE DUE TO PT REMAINING ON BLOOD THINNERS AND WILL THEN NEED TO RETURN WHEN HE CAN STOP THESE MEDS SAFELY AND HAVE DILATION AND BIOPSIES IF NECESSARY. THIS WAS CONVEYED TO JUAN IN DR. CANTU OFFICE AND PT IS COMING IN TODAY TO SEE DR. CANTU AND HE WILL HAVE THIS CONVERSTION WITH PATIENT.
--- NOTE | 2021-11-17 09:19 | SUR.PREOP ---
MD Escobar aware that pt last took blood thinner yesterday.
[2021-11-17 09:22] VITALS: BP 124/92; PULSE 76; RESP 18; TEMP 36.5; O2SAT 96; BMI 33.3
[2021-11-17] MEDS: LACTATED RINGERS 1,000 ML 150 ML IV CONT (09:31)
[2021-11-17 09:35] LABS: Glucose Point of Care 149 mg/dl (65-105)
--- NOTE | 2021-11-17 09:40 | WPDGICN ---
Assessment and Plan Assessment and plan (1) Guaiac positive stools: Code(s): R19.5 - Other fecal abnormalities Status: Acute Assessment and Plan: patient with heme-positive stools. Now requiring anticoagulation for atherosclerotic heart disease. Plan is for EGD to assess for possible source of blood loss. (2) Cirrhosis of liver: Qualifiers: Hepatic cirrhosis type: unspecified hepatic cirrhosis Ascites presence: unspecified Qualified Code(s): K74.60 - Unspecified cirrhosis of liver Code(s): K74.60 - Unspecified cirrhosis of liver Status: Acute Assessment and Plan: Cirrhosis suggested on imaging studies. For this reason EGD will be performed to exclude varices. (3) History of colonoscopy with polypectomy: Code(s): Z98.890 - Other specified postprocedural states; Z86.010 - Personal history of colonic polyps Status: Acute Assessment and Plan: Patient previously had colon polyps. Most recent colonoscopy 8 months ago. See no reason for urgent colonoscopy at this time. Follow-up at 3-5 year intervals advised because a history of colon polyps. (4) Coronary artery disease: Qualifiers: Coronary Disease-Associated Artery/Lesion type: unspecified vessel or lesion type [place] vs. transplanted heart: unspecified whether [place] or transplanted heart Associated angina: unspecified whether angina present Qualified Code(s): I25.10 - Atherosclerotic heart disease of [place] coronary artery without angina pectoris Code(s): I25.10 - Atherosclerotic heart disease of [place] coronary artery without angina pectoris Status: Acute (5) Esophageal web: Code(s): Q39.4 - Esophageal web Status: Acute Assessment and Plan: Esophageal web dilated in the past. Suggestive of underlying acid reflux disease. Currently swallowing well with no difficulties. No heartburn on current medication raising. EGD is requested to exclude upper GI source of bleeding these will be reassessed at time of endoscopy. GI Consult Note Consult date/time: 11/17/21 09:40 HPI: Drew Pak is a 81 year old male Presents for EGD. Patient has a history of GE reflux and distal esophageal web. Patient underwent colonoscopy an EGD 8 months ago. Distal esophageal web was dilated. He currently swallows well without difficulties. Denies any heartburn. He recently underwent heart catheterization and a stent was placed and he is now on Xarelto anticoagulation. Stool Hemoccult was found to be positive with a mild decline in hemoglobin. His iron saturation is somewhat diminished. He presents today for EGD to assess for possible upper GI source of blood loss. He does have a distant history of colon polyps. His family history is noncontributory. Review of Systems Review of Systems: All systems reviewed & are unremarkable except as noted in HPI and below [facility] Past Medical History Medical History (Updated 11/12/21 @ 15:12 by Xiomara Weller, [facility]) Anemia Anxiety Ascending aortic aneurysm Benign prostatic hyperplasia BMI 29.0-29.9,adult BMI 30.0-30.9,adult BMI 31.0-31.9,adult BMI 32.0-32.9,adult BMI 33.0-33.9,adult Cirrhosis of liver Coronary artery disease Status post three-vessel bypass in 2003. Degenerative joint disease of knee Diastolic congestive heart failure Echocardiogram in 05/2019 showed mild LV ventricular enlargement, mild concentric LVH, moderate apical and apical septal hypokinesis, grade 2 diastolic dysfunction, EF 50%, moderately enlarged left atrium, moderate mitral and mild aortic valve regurgitation. DOLAN (dyspnea on exertion) Erectile dysfunction Esophageal web Status post multiple dilatations over the years. Gastroesophageal reflux disease Gout Guaiac positive stools Hearing loss History of colon polyps History of pneumonia, recurrent Hospital discharge follow-up Interstitial lung disease Mixed hyperlipidemia Obesity Osteoarthr
--- NOTE | 2021-11-17 10:16 | WPDANESEPPF ---
Anes - Initial Pre Proc Eval Procedure: Operation Date: 11/17/21 10:30 Proposed Procedures p Esophagogastroduodenoscopy - Gerard Escobar MD Date/Time: 11/17/21 10:16 Surgeon: Gerard Escobar MD Pre Op Diagnosis: occult GI bleed Patient Data Age: 81 Gender: M Height: 1.75 m Weight: 102.5 kg Last Vital Signs Temp 97.7 F 11/17/21 09:22 Pulse 76 11/17/21 09:22 Resp 18 11/17/21 09:22 BP 124/92 H 11/17/21 09:22 Pulse Ox 96 11/17/21 09:22 Allergies Allergy/AdvReac Type Severity Reaction Status Date / Time KATLYN Inhibitors AdvReac Mild Cough Verified 11/17/21 09:18 Home Medications Medication Instructions Recorded Confirmed Type cholecalciferol (vitamin D3) 125 mcg QAM 05/06/20 11/12/21 History [Vitamin D3] allopurinol 150 mg PO QAM 12/16/20 11/12/21 History omeprazole 40 mg capsule,delayed 40 mg PO QAM #90 cap 01/06/21 11/12/21 Rx release simvastatin 40 mg tablet 20 mg PO QAM #90 tablet 02/16/21 11/12/21 Rx carvedilol 25 mg tablet 25 mg PO Q12H #180 tablet 04/01/21 11/12/21 Rx fluticasone fur. 100 mcg-umeclid 1 inh INHALATION Q24H #60 ea 04/01/21 11/12/21 Rx 62.5 mcg-vilant 25 mcg inhalat.powder rivaroxaban 20 mg tablet 20 mg PO DAILY tablet 05/11/21 11/12/21 History clopidogrel 75 mg PO DAILY 09/10/21 11/12/21 History empagliflozin-metformin [Synjardy 1,000 tablet PO DAILY 09/10/21 11/12/21 History XR] losartan 100 mg PO DAILY 09/10/21 11/12/21 History potassium chloride 10 mEq 10 meq PO DAILY #30 cap 09/17/21 11/12/21 Rx capsule,extended release tamsulosin 0.4 mg capsule See Rx Instructions .ROUTE 09/28/21 11/12/21 Rx .COMPLEX #90 capsule levofloxacin 750 mg tablet 750 mg PO DAILY #7 tablet 10/26/21 11/12/21 Rx albuterol sulfate 90 mcg/actuation See Rx Instructions .ROUTE 11/03/21 11/12/21 Rx aerosol inhaler .COMPLEX #25.5 g furosemide 40 mg tablet 80 mg PO QAM #180 tablet 11/10/21 11/12/21 Rx Laboratory Tests 11/17/21 09:30 POC Capillary Glucose 149 mg/dl H mg/dl (65-105) Patient hx anesthesia problems: none Family hx anesthesia problems: none Results Review: All pre-operative results and documents have been reviewed as part of the pre-operative evaluation. [facility] Past Medical History Medical History (Updated 11/12/21 @ 15:12 by Xiomara Weller CMA) Anemia Anxiety Ascending aortic aneurysm Benign prostatic hyperplasia BMI 29.0-29.9,adult BMI 30.0-30.9,adult BMI 31.0-31.9,adult BMI 32.0-32.9,adult BMI 33.0-33.9,adult Cirrhosis of liver Coronary artery disease Status post three-vessel bypass in 2003. Degenerative joint disease of knee Diastolic congestive heart failure Echocardiogram in 05/2019 showed mild LV ventricular enlargement, mild concentric LVH, moderate apical and apical septal hypokinesis, grade 2 diastolic dysfunction, EF 50%, moderately enlarged left atrium, moderate mitral and mild aortic valve regurgitation. DOLAN (dyspnea on exertion) Erectile dysfunction Esophageal web Status post multiple dilatations over the years. Gastroesophageal reflux disease Gout Guaiac positive stools Hearing loss History of colon polyps History of pneumonia, recurrent Hospital discharge follow-up Interstitial lung disease Mixed hyperlipidemia Obesity Osteoarthritis Shingles Systolic CHF Surgical History Surgical History History of arthroplasty of right knee (~12/23/20) History of arthroscopy of right knee History of colonoscopy with polypectomy History of coronary artery bypass graft x 3 (~2003) History of lumbar surgery Lumbar laminectomy at several levels with what sounds like foraminectomy as well. History of open reduction and internal fixation (ORIF) procedure Right lower extremity fracture. History of permanent cardiac pacemaker placement History of tonsillectomy Family History Family History Mother Diabetes
[2021-11-17] MEDS: BENZOCAINE (*SP) 60 ML SPRAY CAN (HURRICAINE) 1 SPRAY MUCOUS MEM (10:23)
[2021-11-17 10:30] VITALS: BP 116/70; PULSE 76; RESP 20; O2SAT 96
[2021-11-17 10:40] VITALS: BP 131/78; PULSE 70; RESP 21; O2SAT 98
[2021-11-17 10:50] VITALS: BP 117/90; PULSE 70; RESP 19; O2SAT 98
== END 2021-11-17 10:55 | disposition home or self-care (01) ==
PROVIDERS: PCP Internal Medicine; Visit Provider Internal Medicine Gastroenterology
PROC: 0DJ08ZZ Inspection of Upper Intestinal Tract, Via Natural or Artificial Opening Endoscopic (ICD-10-PCS; CPT 43235; principal; 2021-11-17 10:30)
DX: D64.9 Anemia, unspecified (principal); R19.5 Other fecal abnormalities; K31.7 Polyp of stomach and duodenum; Q39.4 Esophageal web; Z86.010 Personal history of colon polyps; Z79.01 Long term (current) use of anticoagulants; Z79.51 Long term (current) use of inhaled steroids; F41.9 Anxiety disorder, unspecified; I71.4 Abdominal aortic aneurysm, without rupture; K74.60 Unspecified cirrhosis of liver; Z95.5 Presence of coronary angioplasty implant and graft; K21.9 Gastro-esophageal reflux disease without esophagitis; J84.9 Interstitial pulmonary disease, unspecified; E78.2 Mixed hyperlipidemia; M19.90 Unspecified osteoarthritis, unspecified site; I50.40 Unspecified combined systolic (congestive) and diastolic (congestive) heart failure; Z87.891 Personal history of nicotine dependence; E66.9 Obesity, unspecified; Z68.33 Body mass index [BMI] 33.0-33.9, adult
CPT/HCPCS: 43235; 82948; J2704; J7120

== ENCOUNTER 2022-01-28 14:11 | Outpatient (CLI) | payer MEDICARE, SELFPAY ==
[2022-01-28 14:53] LABS: Creatine Kinase 120 U/L (55-170)
[2022-01-28 16:11] LABS: Rheumatoid Factor < 8.6 IU/ML (<12)
[2022-01-30 20:11] LABS: ANA Cascade Screen Negative (Negative)
[2022-02-02 00:12] LABS: Aldolase 4.2 U/L (<=8.1)
[2022-02-02 12:13] LABS: Anti Cyclic Citrullinated Pept <16 Units (<20)
[2022-02-03 14:27] LABS: ANCA Screen Negative (Negative)
== END 2022-01-28 14:12 | disposition home or self-care (01) ==
LOC: ANHLAB 14:23
PROVIDERS: PCP Internal Medicine; Visit Provider Internal Medicine Pulmonary Disease
DX: J84.9 Interstitial pulmonary disease, unspecified (principal); J98.4 Other disorders of lung
CPT/HCPCS: 36415; 82085; 82550; 86036; 86038; 86200; 86331; 86430; 86606; 86609

== ENCOUNTER 2022-02-17 11:22 | Outpatient (CLI) | payer MEDICARE, SELFPAY ==
[2022-02-17 11:57] LABS: Basophils Percent Auto 0.4 % (0.2-1.2); Eosinophils Absolute Auto 0.3 K/mm3 (0-0.3); Eosinophils Percent Auto 3.6 % (0-4.4); Hematocrit 49.4 % (42.0-52.0); Hemoglobin 15.4 g/dL (14.0-18.0); Immature Granulocyte Absolute 0.02 K/mm3 (0.00-0.031); Immature Granulocyte Percent A 0.3 % (0-0.5); Lymphocytes Absolute Auto 1.29 K/mm3 (0.9-3.2); Lymphocytes Percent Auto 18.4 % (18.3-44.2); Mean Corpuscular HGB Conc 31.2 g/dl (32-36); Mean Corpuscular Hemoglobin 31.3 pg (26-34); Mean Corpuscular Volume 100.4 fl (80-100); Mean Platelet Volume 9.9 fl (7.4-10.4); Monocytes Absolute Auto 0.7 K/mm3 (0.1-0.6); Neutrophils Absolute Auto 4.7 K/mm3 (1.3-6.7); Neutrophils Percent Auto 67.3 % (45.5-73.1); Platelet Count Result 191 k/mm3 (150-375); Red Blood Count 4.92 M/mm3 (4.6-6.20); Red Cell Distribution Width 17.2 % (11.5-14.5)
[2022-02-17 12:08] LABS: Alanine Aminotransferase 24 U/L (6-50); Albumin Level 4.4 g/dL (3.5-5.1); Alkaline Phosphatase 116 U/L (38-126); Anion Gap 7 mmol/L (8-16); Aspartate Amino Transferase 33 U/L (17-59); Bilirubin,Total 1.1 mg/dL (0.2-1.3); Blood Urea Nitrogen 28 mg/dL (9-20); Calcium 9.1 mg/dL (8.4-10.2); Carbon Dioxide 28 mmol/L (22-30); Chloride 104 mmol/L (98-107); Estimated Glomerular Filt Rate 49; Glucose 96 mg/dL (65-110); Potassium 4.8 mmol/L (3.4-5.0); Sodium 139 mmol/L (137-145)
[2022-02-17 12:22] LABS: Iron 94 ug/dL (49-181)
[2022-02-17 12:33] LABS: Percent Iron Saturation 23 % (20-50)
[2022-02-17 12:35] LABS: Hemoglobin A1C 6.4 % (<5.7)
[2022-02-17 12:37] LABS: Prostate Specific Antigen 1.2 ng/mL (< OR = 4.0)
[2022-02-17 12:43] LABS: Free T4 Free Thyroxine 1.08 ng/mL (0.78-2.19)
[2022-02-20 16:20] LABS: GGT 62 U/L (3-70)
== END 2022-02-17 11:23 | disposition home or self-care (01) ==
PROVIDERS: PCP Internal Medicine; Referring Provider Internal Medicine Nephrology; Visit Provider Internal Medicine
DX: D64.9 Anemia, unspecified (principal); K74.60 Unspecified cirrhosis of liver; I10 Essential (primary) hypertension; Z13.29 Encounter for screening for other suspected endocrine disorder; Z79.899 Other long term (current) drug therapy; Z12.5 Encounter for screening for malignant neoplasm of prostate
CPT/HCPCS: 36415; 80053; 82728; 82977; 83036; 83540; 83550; 84153; 84439; 84443; 85025; G0103

== ENCOUNTER 2022-02-18 12:34 | Outpatient (CLI) | payer MEDICARE, SELFPAY ==
--- NOTE | 2022-02-19 11:33 | WPDPFTINT ---
PFT Procedure Performed PFT Procedure Performed Spirometry with Pre/Post Bronchodilator Plethysmography (Lung Vol) Diffusing Cap (DLCO) Flow Vol Loop PFT Interpretation Lung volumes were measured with the body plethysmography method. Lung volumes are unremarkable. Spirometry showed normal expiratory flow rates and a normal FEV1 to FVC ratio 75%. Following administration of a bronchodilator there was no significant increase in the expiratory flow rates. Lung diffusion capacity is moderately reduced at 58% predicted. The flow volume loop is unremarkable. Impression: Spirometry, lung volumes within normal range. Moderately reduced lung diffusion capacity.
--- NOTE | 2022-02-19 11:44 | WPDSIXMINUTE ---
Six Minute Walk Procedure Procedure Performed Pulmonary Stress Test (6 min walk) Six Minute Walk This 6 minute walk test was carried out with the patient breathing room air. Pre walk at rest, the baseline oxyhemoglobin saturation was 96%. The patient walked over 143 m with no pauses during testing. During the walk, the oxyhemoglobin saturation remained over 95%. The perceived dyspnea at baseline was 1 on the Jerrica scale and increased to 6 at the end of the test. Impression: No evidence of oxyhemoglobin desaturation on this testing.
== END 2022-02-18 12:35 | disposition home or self-care (01) ==
LOC: ANHLAB 12:36
PROVIDERS: PCP Internal Medicine; Visit Provider Internal Medicine Pulmonary Disease
DX: R06.00 Dyspnea, unspecified (principal); J84.9 Interstitial pulmonary disease, unspecified
CPT/HCPCS: 94060; 94618; 94726; 94729

== ENCOUNTER 2022-03-03 07:24 | Outpatient (CLI) | payer MEDICARE, SELFPAY ==
--- NOTE | 2022-03-18 01:22 | WPDSLEEPSTUD ---
Sleep Study Date of Study: 03/03/22 Ordering Provider: Arslan Santa MD Interpreting Physician: Vee Abbasi MD Sleep Study Type: Split Polysomnogram Height: 1.75 m Weight: 102.512 kg Body Mass Index: 33.3 Neck Circumference (inches): 17 [place]: 2 Reason for Sleep Study * daytime fatigue, nocturnal hypoxemia * 02/17/2022 - overnight oximetry on room air; baseline saturation 91.9%, lowest desaturation 75%, oxygen desaturation index 37, 276 desaturations. The patient spent 27.2 minutes below 88% saturation. He spent 1.3 consecutive minutes below 88% Sleep History Drew Pak is a 81 year old man with interstitial lung disease and coronary artery disease. He does not awaken from sleep feeling short of breath or having heartburn, belching or coughing. He denies snoring and says that he never snores loudly enough that others would complain about it. He rarely has trouble sleeping with a cold. He does not have trouble with gasping for breath during the night. He does not have breathing problems at night observed by others. He does not sweat excessively at night or notice his heart pounding or beating irregularly at night. He does not fall asleep during the day, does not fall asleep involuntarily or while driving. He does not have loss of muscle tone with strong emotion. He does not have daytime difficulties due to excessive sleepiness. He does not feel paralyzed on waking or falling asleep and does not have vivid dreamlike scenes upon awakening or falling asleep. He does not feel afraid to go to sleep. He does not have nightmares. He rarely remembers his dreams. He occasionally has racing thoughts, feelings of sadness, depression and anxiety. He does not have muscular tension or notices parts of his body jerking. He does not kick at night. He does not have crawling and aching feelings in his legs or any kind of leg pain at night. He does not have morning jaw pain. He occasionally grinds his teeth during sleep. He constantly is bothered by pain during the day. He occasionally is awakened by pain at night. He constantly wakes up feeling stiff in the morning with sore achy muscles and pain in the neck and spine Normal bedtime 11:00 p.m. falling asleep while watching television, waking twice at night to go to the bathroom. He stays awake for about a 1/2 hour for watching television and drifts off to sleep again. He wakes the morning at 6:00 a.m.. His weekend schedule is the same. He estimates getting 6-8 hours of sleep at night. He does not take naps in the afternoon or evening. A short nap may be refreshing. He is usually drowsy in the morning for an hour. He frequently has daytime sleepiness. He rarely has heartburn at night. He rarely has memory or concentration problems. Habits: Former smoker quit 40 years ago. Caffeine 4 servings a day. No alcohol or recreational drugs. [facility] Past Medical History Medical History Anemia Anxiety Ascending aortic aneurysm Benign prostatic hyperplasia BMI 29.0-29.9,adult BMI 30.0-30.9,adult BMI 31.0-31.9,adult BMI 32.0-32.9,adult BMI 33.0-33.9,adult Cirrhosis of liver Coronary artery disease Status post three-vessel bypass in 2003. Degenerative joint disease of knee Diastolic congestive heart failure Echocardiogram in 05/2019 showed mild LV ventricular enlargement, mild concentric LVH, moderate apical and apical septal hypokinesis, grade 2 diastolic dysfunction, EF 50%, moderately enlarged left atrium, moderate mitral and mild aortic valve regurgitation. DOLAN (dyspnea on exertion) Erectile dysfunction Esophageal web Status post multiple dilatations over the years. Gastric polyp Gastroesophageal reflux disease Gout Guaiac positive stools Hearing loss History of colon polyps History of pneumonia, recurrent Hospital discharge follow-up Interstitial lung disease Kidney stones Mixed hyperlipidemia Obesity MACIEJ on CP
[2022-03-18 17:34] VITALS: BMI 33.3
== END 2022-03-04 06:39 | disposition home or self-care (01) ==
LOC: ANHCSM 07:25
PROVIDERS: PCP Internal Medicine; Visit Provider Internal Medicine Pulmonary Disease
DX: G47.10 Hypersomnia, unspecified (principal); G47.39 Other sleep apnea
CPT/HCPCS: 95811

== ENCOUNTER 2022-03-25 12:00 | Outpatient (CLI) | payer MEDICARE, SELFPAY ==
--- NOTE | ~2022-03-25 | XR_ITS ---
EXAMINATION: XR chest 2V DATE: 03/25/2022 12:33 INDICATION: Cough TECHNIQUE: PA and lateral views of the chest are obtained. COMPARISON: 10/26/2021 FINDINGS: Cardiomegaly is noted. A dual-lead cardiac pacemaker of the left chest wall ends with leads in expected locations. There are minimal airspace opacities of the lung bases. No pleural effusion o r pneumothorax. Median sternotomy wires and mediastinal surgical clips are seen, likely from prior co ronary artery bypass grafting. IMPRESSION: 1. Cardiomegaly. 2. Bibasilar airspace opacities, consistent with atelectasis versus pneumonia. Reviewed, dictated and finalized at location F.
[2022-03-25 12:26] LABS: Basophils Percent Auto 0.3 % (0.2-1.2); Eosinophils Absolute Auto 0.1 K/mm3 (0-0.3); Hematocrit 50.4 % (42.0-52.0); Hemoglobin 16.2 g/dL (14.0-18.0); Immature Granulocyte Absolute 0.02 K/mm3 (0.00-0.031); Immature Granulocyte Percent A 0.3 % (0-0.5); Lymphocytes Absolute Auto 0.71 K/mm3 (0.9-3.2); Lymphocytes Percent Auto 11.6 % (18.3-44.2); Mean Corpuscular HGB Conc 32.1 g/dl (32-36); Mean Corpuscular Hemoglobin 32.2 pg (26-34); Mean Corpuscular Volume 100.2 fl (80-100); Monocytes Absolute Auto 0.9 K/mm3 (0.1-0.6); Monocytes Percent Auto 14.7 % (2.6-8.5); Neutrophils Absolute Auto 4.4 K/mm3 (1.3-6.7); Neutrophils Percent Auto 72.1 % (45.5-73.1); Platelet Count Result 185 k/mm3 (150-375); Red Blood Count 5.03 M/mm3 (4.6-6.20); Red Cell Distribution Width 15.9 % (11.5-14.5); White Blood Count 6.1 K/mm3 (4.5-10.0)
[2022-03-25 12:50] LABS: Anion Gap 8 mmol/L (8-16); Blood Urea Nitrogen 30 mg/dL (9-20); Calcium 8.7 mg/dL (8.4-10.2); Carbon Dioxide 29 mmol/L (22-30); Chloride 100 mmol/L (98-107); Estimated Glomerular Filt Rate 53; Glucose 120 mg/dL (65-110); Potassium 4.7 mmol/L (3.4-5.0); Sodium 137 mmol/L (137-145)
== END 2022-03-25 12:01 | disposition home or self-care (01) ==
LOC: ANHLAB 12:05
PROVIDERS: PCP Internal Medicine; Visit Provider Internal Medicine
DX: R05.9 Cough, unspecified (principal); Z86.16 Personal history of COVID-19; I10 Essential (primary) hypertension; Z79.899 Other long term (current) drug therapy; I51.7 Cardiomegaly; R91.8 Other nonspecific abnormal finding of lung field
CPT/HCPCS: 36415; 71046; 80048; 85025

== ENCOUNTER 2022-04-01 12:24 | Outpatient (CLI) | payer MEDICARE, SELFPAY ==
--- NOTE | ~2022-04-01 | CT_ITS ---
EXAMINATION: CT lumbar spine wo con DATE: 04/01/2022 13:12 INDICATION: Chronic low back pain TECHNIQUE: Computed tomography (CT) of the lumbar spine was performed without intravenous contrast. A utomated exposure control and iterative reconstruction technique were employed. The dose-length produ ct was 1046.60 mGy-cm. COMPARISON: 02/13/21 FINDINGS: Unchanged 10 degree lumbar levoscoliosis measured between L2 and L5. Sagittal alignment is normal. L2 -L5 laminectomies. Severe disc height loss with prominent degenerative endplate changes at L2-L3 thro ugh L4-L5. Moderate disc height loss with vacuum phenomena additional degenerative endplate changes a t L5-S1. Mild disc height loss at T11-T12 through L1-L2. Minimal vertebral body height loss and porti ons of the. Lumbar vertebral bodies resulting from degenerative endplate remodeling. No fracture. Par tially visualized at least 6.8 cm left renal cyst. There is calcified atherosclerosis of the aorta an d many of the other arteries. Paraspinal soft tissues are unremarkable. The following disc levels are specifically discussed: T11-T12: The disc does not extend beyond the endplate margin. There is mild bilateral facet joint ost eoarthritis. There is mild bilateral neural foraminal stenosis. There is no central canal stenosis. T12-L1: The disc does not extend beyond the endplate margin. There is mild bilateral facet joint oste oarthritis. There is no neural foraminal stenosis. There is no central canal stenosis. L1-L2: Unchanged disc osteophyte complex. There is altered left and mild to moderate right facet join t osteoarthritis. There is moderate left and mild to moderate right neural foraminal stenosis. There is mild central canal stenosis at the level of the inferior endplate of L1 with more caudal posterior decompression resulting from the L2 laminectomy. L2-L3: Disc is bulging. There is moderate bilateral facet joint osteoarthritis. There is moderate marielena ateral neural foraminal stenosis. There is mild to moderate central canal stenosis with posterior dec ompression. L3-L4: Posterior disc osteophyte complex. There is moderate right and moderate to severe left facet j oint osteoarthritis. There is moderate right and moderate to severe left neural foraminal stenosis. T here is mild central canal stenosis with posterior decompression. L4-L5: Disc is bulging. There is severe bilateral facet joint osteoarthritis. There is moderate bilat eral neural foraminal stenosis. There is mild central canal stenosis with posterior decompression. L5-S1: Disc is bulging. There is severe bilateral facet joint osteoarthritis. There is moderate bilat eral neural foraminal stenosis. There is no central canal stenosis with posterior decompression. IMPRESSION: 1. Mild lumbar dextroscoliosis with slight progression in advanced lumbar spondylosis. 2. Lumbar posterior decompression with L2-L5 laminectomies. Reviewed, dictated and finalized at location A. IMPRESSION: 1. Mild lumbar dextroscoliosis with slight progression in advanced lumbar spond ylosis. 2. Lumbar posterior decompression with L2-L5 laminectomies.
== END 2022-04-01 12:25 | disposition home or self-care (01) ==
PROVIDERS: PCP Internal Medicine; Visit Provider Internal Medicine
DX: M54.50 Low back pain, unspecified (principal); M41.86 Other forms of scoliosis, lumbar region; Z98.1 Arthrodesis status
CPT/HCPCS: 72131

== ENCOUNTER 2022-04-02 10:32 | Outpatient (CLI) | payer MEDICARE, SELFPAY ==
--- NOTE | ~2022-04-02 | XR_ITS ---
EXAMINATION: XR chest 2V 04/02/2022 10:57 INDICATION: Pneumonia PROCEDURE: 2 view chest COMPARISON: Comparison to multiple prior studies sequentially, with oldest reviewed study dated 09/02. FINDINGS: The lungs are clear. The cardiomediastinal silhouette is within normal limits. There are no pleural effusions. There is no pneumothorax suspected. Status post median sternotomy for CABG. P acemaker leads in expected position. IMPRESSION: 1: NO ACUTE CARDIOPULMONARY DISEASE. Reviewed, dictated and finalized at location A.
[2022-04-02 11:23] LABS: Basophils Percent Auto 0.3 % (0.2-1.2); Eosinophils Absolute Auto 0.2 K/mm3 (0-0.3); Eosinophils Percent Auto 1.8 % (0-4.4); Hemoglobin 15.9 g/dL (14.0-18.0); Lymphocytes Absolute Auto 1.29 K/mm3 (0.9-3.2); Lymphocytes Percent Auto 12.3 % (18.3-44.2); Mean Corpuscular HGB Conc 33.1 g/dl (32-36); Mean Corpuscular Hemoglobin 32.4 pg (26-34); Mean Corpuscular Volume 97.8 fl (80-100); Monocytes Absolute Auto 0.9 K/mm3 (0.1-0.6); Monocytes Percent Auto 8.1 % (2.6-8.5); Neutrophils Absolute Auto 8.1 K/mm3 (1.3-6.7); Neutrophils Percent Auto 76.5 % (45.5-73.1); Platelet Count Result 243 k/mm3 (150-375); Red Blood Count 4.91 M/mm3 (4.6-6.20); White Blood Count 10.5 K/mm3 (4.5-10.0)
[2022-04-02 12:12] LABS: Immunoglobulin A 189 mg/dL (70-400); Immunoglobulin G 770 mg/dL (700-1600); Immunoglobulin M 90 mg/dL (40-230)
[2022-04-05 19:44] LABS: Immunoglobulin E 40 kU/L (<=114)
== END 2022-04-02 10:33 | disposition home or self-care (01) ==
LOC: ANHLAB 10:38
PROVIDERS: PCP Internal Medicine; Visit Provider Internal Medicine
DX: R09.89 Other specified symptoms and signs involving the circulatory and respiratory systems (principal); R05.9 Cough, unspecified; J18.9 Pneumonia, unspecified organism; B99.9 Unspecified infectious disease
CPT/HCPCS: 36415; 71046; 82784; 82785; 85025

== ENCOUNTER 2022-05-11 13:58 | Outpatient (CLI) | payer MEDICARE, SELFPAY ==
[2022-05-11 14:28] LABS: Hematocrit 43.4 % (42.0-52.0); Hemoglobin 13.7 g/dL (14.0-18.0); Mean Corpuscular HGB Conc 31.6 g/dl (32-36); Mean Corpuscular Hemoglobin 32.9 pg (26-34); Mean Corpuscular Volume 104.3 fl (80-100); Mean Platelet Volume 10.4 fl (7.4-10.4); Platelet Count Result 227 k/mm3 (150-375); Red Blood Count 4.16 M/mm3 (4.6-6.20)
[2022-05-11 14:39] LABS: Anion Gap 10 mmol/L (8-16); Blood Urea Nitrogen 18 mg/dL (9-20); Calcium 8.2 mg/dL (8.4-10.2); Carbon Dioxide 25 mmol/L (22-30); Chloride 107 mmol/L (98-107); Estimated Glomerular Filt Rate > 60; Glucose 150 mg/dL (65-110); Phosphorus 3.4 mg/dL (2.5-4.5); Sodium 142 mmol/L (137-145)
[2022-05-11 14:42] LABS: Creatinine Urine 62.4 mg/dL; Total Protein Urine Random 11 mg/dL; Ur Ttl Prot Creatinine Ratio 0.18 mg/mg (0-0.20)
[2022-05-11 14:51] LABS: Parathyroid Intact 53.2 pg/mL (7.5-53.5)
[2022-05-11 15:31] LABS: Iron 74 ug/dL (49-181)
[2022-05-11 15:41] LABS: Percent Iron Saturation 22 % (20-50)
== END 2022-05-11 13:59 | disposition home or self-care (01) ==
PROVIDERS: PCP Internal Medicine; Visit Provider Internal Medicine Nephrology
DX: N18.31 Chronic kidney disease, stage 3a (principal); D63.1 Anemia in chronic kidney disease
CPT/HCPCS: 36415; 80069; 82570; 82728; 83540; 83550; 83970; 84156; 85027

== ENCOUNTER 2022-07-26 10:02 | Outpatient (CLI) | payer MEDICARE, SELFPAY ==
[2022-07-26 10:44] LABS: Basophils Percent Auto 0.2 % (0.2-1.2); Eosinophils Absolute Auto 0.1 K/mm3 (0-0.3); Eosinophils Percent Auto 1.5 % (0-4.4); Hematocrit 49.5 % (42.0-52.0); Hemoglobin 15.9 g/dL (14.0-18.0); Immature Granulocyte Absolute 0.04 K/mm3 (0.00-0.031); Immature Granulocyte Percent A 0.5 % (0-0.5); Lymphocytes Absolute Auto 1.34 K/mm3 (0.9-3.2); Lymphocytes Percent Auto 15.4 % (18.3-44.2); Mean Corpuscular HGB Conc 32.1 g/dl (32-36); Mean Corpuscular Hemoglobin 33.5 pg (26-34); Mean Corpuscular Volume 104.2 fl (80-100); Mean Platelet Volume 10.4 fl (7.4-10.4); Monocytes Absolute Auto 0.6 K/mm3 (0.1-0.6); Monocytes Percent Auto 7.3 % (2.6-8.5); Neutrophils Absolute Auto 6.5 K/mm3 (1.3-6.7); Neutrophils Percent Auto 75.1 % (45.5-73.1); Platelet Count Result 195 k/mm3 (150-375); Red Blood Count 4.75 M/mm3 (4.6-6.20); Red Cell Distribution Width 13.9 % (11.5-14.5); White Blood Count 8.7 K/mm3 (4.5-10.0)
[2022-07-26 10:58] LABS: Alanine Aminotransferase 38 U/L (6-50); Albumin Level 4.2 g/dL (3.5-5.1); Alkaline Phosphatase 110 U/L (38-126); Anion Gap 11 mmol/L (8-16); Aspartate Amino Transferase 38 U/L (17-59); Bilirubin,Total 1.2 mg/dL (0.2-1.3); Blood Urea Nitrogen 31 mg/dL (9-20); Calcium 9.1 mg/dL (8.4-10.2); Carbon Dioxide 28 mmol/L (22-30); Chloride 102 mmol/L (98-107); Cholesterol 98 mg/dL (0-200); Estimated Glomerular Filt Rate 53; Glucose 164 mg/dL (65-110); HDL Direct 49 mg/dL; Potassium 4.7 mmol/L (3.4-5.0); Sodium 141 mmol/L (137-145); Triglycerides 56 mg/dL (<150)
[2022-07-26 11:09] LABS: LDL Cholesterol Direct 40 mg/dL
[2022-07-26 11:25] LABS: Hemoglobin A1C 6.9 % (<5.7)
[2022-07-26 11:33] LABS: Iron 100 ug/dL (49-181)
[2022-07-26 11:43] LABS: Percent Iron Saturation 27 % (20-50)
[2022-07-26 11:51] LABS: Free T4 Free Thyroxine 1.23 ng/mL (0.78-2.19)
== END 2022-07-26 10:03 | disposition home or self-care (01) ==
LOC: ANHLAB 10:04
PROVIDERS: PCP Internal Medicine; Visit Provider Internal Medicine
DX: I10 Essential (primary) hypertension (principal); E78.2 Mixed hyperlipidemia; D64.9 Anemia, unspecified; E11.9 Type 2 diabetes mellitus without complications; Z13.29 Encounter for screening for other suspected endocrine disorder; Z79.899 Other long term (current) drug therapy
CPT/HCPCS: 36415; 80053; 80061; 82728; 83036; 83540; 83550; 84439; 84443; 85025

== ENCOUNTER 2022-08-06 00:33 | Day surgery (SDC) | payer MEDICARE, SELFPAY ==
[2022-08-03 09:35] VITALS: BMI 30.3
[2022-08-06 10:38] VITALS: BP 153/82; PULSE 71; RESP 18; TEMP 36.6; O2SAT 98; BMI 29.9
[2022-08-06] MEDS: LACTATED RINGERS 1,000 ML 150 ML IV CONT (10:55)
[2022-08-06 10:57] LABS: Glucose Point of Care 152 mg/dl (65-105)
--- NOTE | 2022-08-06 11:03 | PM.HPGS ---
History of Present Illness History of Present Illness Consent: Risks, benefits, and alternatives have been discussed and questions answered. Patient agrees to proceed with procedure. Chief complaint: dysphagia Narrative: Drew Pak is a 82 year old male Presents for EGD. Patient complains of dysphagia with solid food catching in the mid substernal portion of the chest. Patient has a past medical history of distal esophageal web attributed to acid reflux. He denies any significant heartburn. He has been maintained on omeprazole 20mg p.o. daily. Patient does have a past medical history of back pain for which she has received injections. He was identified as potentially having cirrhosis by CT scan. Previous EGD reveals no evidence of varices. This felt to be subclinical. Patient does have a history of atherosclerotic heart disease and heart stents. He is on anticoagulation on held for procedure, colonoscopy today. Review of Systems Review of Systems: Review of systems noncontributory. [facility] Past Medical History Medical History (Updated 07/29/22 @ 11:[address] [facility]) Anemia Anxiety Ascending aortic aneurysm Benign prostatic hyperplasia BMI 32.0-32.9,adult Chest congestion Cirrhosis of liver Coronary artery disease Status post three-vessel bypass in 2003. Cough Degenerative joint disease of knee Diastolic congestive heart failure Echocardiogram in 05/2019 showed mild LV ventricular enlargement, mild concentric LVH, moderate apical and apical septal hypokinesis, grade 2 diastolic dysfunction, EF 50%, moderately enlarged left atrium, moderate mitral and mild aortic valve regurgitation. DOLAN (dyspnea on exertion) Erectile dysfunction Esophageal web Status post multiple dilatations over the years. Follow up Gastric polyp Gastroesophageal reflux disease Gout Guaiac positive stools Hearing loss History of colon polyps History of pneumonia, recurrent Hospital discharge follow-up Interstitial lung disease Kidney stones Mixed hyperlipidemia Obesity Onychomycosis MACIEJ on CPAP Osteoarthritis Personal history of COVID-19 Right hip pain Right shoulder pain Shingles Skin lesion Skin lesion Systolic CHF UTI (urinary tract infection) Surgical History Surgical History History of arthroplasty of right knee (~12/23/20) History of arthroscopy of right knee History of colonoscopy with polypectomy History of coronary artery bypass graft x 3 (~2003) History of lumbar surgery Lumbar laminectomy at several levels with what sounds like foraminectomy as well. History of open reduction and internal fixation (ORIF) procedure Right lower extremity fracture. History of permanent cardiac pacemaker placement History of tonsillectomy Family History Family History Mother Diabetes mellitus Cerebrovascular accident Father Acute myocardial infarction Hypertension Bladder cancer Other Arthritis Heart disease Social History Social History (Updated 07/29/22 @ 11:[address] [facility]) Social History: Surrogate decision maker: Pilar George, daughter. Code status: Full code. Smoking packs per day: 2 Smoking cigarettes per day: 40.0 Years smoked: 40 Smoking pack-years: 80.00 Smoking status: Former smoker Tobacco type: cigarettes Second hand tobacco smoke exposure: Yes Smoking end date: 10/03/81 Additional smoking assessment comments: Up to 3 packs a day, quit in 1981. Alcohol intake: former Alcohol use details: No alcohol since 2013. Substance use: never Substance use type: does not use Has the Lack of Transportation Kept You From Medical Appointments or From Getting Medications?: No Within the Past 12 Months, Were You Worried Whether Your Food Would Run Out Before You Got Money to Buy More?: Never True What is Your Housing Situation Today?: I Have [place]
--- NOTE | 2022-08-06 11:11 | WPDANESEPPF ---
Anes - Initial Pre Proc Eval Procedure: Operation Date: 08/06/22 11:30 Proposed Procedures p Esophagogastroduodenoscopy EGD - Gerard Escobar MD Date/Time: 08/06/22 11:11 Surgeon: Gerard Escobar MD Pre Op Diagnosis: dysphagia Patient Data Age: 82 Gender: M Height: 1.78 m Weight: 94.7 kg Last Vital Signs Temp 97.8 F 08/06/22 10:38 Pulse 71 08/06/22 10:38 Resp 18 08/06/22 10:38 BP 153/82 H 08/06/22 10:38 Pulse Ox 98 08/06/22 10:38 O2 Del Method Room Air 08/06/22 10:38 Allergies Allergy/AdvReac Type Severity Reaction Status Date / Time KATLYN Inhibitors AdvReac Mild Cough Verified 08/03/22 09:23 Home Medications Medication Instructions Recorded Confirmed Type cholecalciferol (vitamin D3) 125 125 mcg PO QAM 05/06/20 08/03/22 History mcg (5,000 unit) tablet (Vitamin D3) allopurinol 300 mg tablet 150 mg PO QAM 12/16/20 08/03/22 History ascorbic acid (vitamin C) 1,000 mg 1 - 2 g PO DAILY 11/27/21 08/03/22 History tablet potassium citrate 10 mEq (1,080 10 meq PO DAILY #90 tabs 03/18/22 08/03/22 Rx mg) tablet,extended release omeprazole 20 mg capsule,delayed 20 mg PO DAILY #90 caps 06/21/22 08/03/22 Rx release furosemide 40 mg tablet 40 mg PO QAM 06/30/22 08/03/22 History rivaroxaban 20 mg tablet (Xarelto) 20 mg PO DAILY 06/30/22 08/03/22 History empagliflozin 5 mg-metformin ER 1 tablet PO DAILY 07/07/22 08/03/22 History 1,000 mg tablet,extended release 24 hr (Synjardy XR) aspirin 81 mg tablet 81 mg PO DAILY 08/03/22 08/03/22 History atorvastatin 40 mg tablet 20 mg PO QPM 08/03/22 08/03/22 History carvedilol 25 mg tablet 25 mg PO BID 08/03/22 08/03/22 History cyanocobalamin (vitamin B-12) 1,000 mcg PO DAILY 08/03/22 08/03/22 History 1,000 mcg tablet (Vitamin B-12) folic acid 1 mg tablet 1 mg PO QPM 08/03/22 08/03/22 History losartan 100 mg tablet 100 mg PO QPM 08/03/22 08/03/22 History tamsulosin 0.4 mg capsule 0.4 mg PO HS 08/03/22 08/03/22 History Laboratory Tests 08/06/22 10:46 POC Capillary Glucose 152 mg/dl H mg/dl (65-105) Patient hx anesthesia problems: none Family hx anesthesia problems: none Results Review: All pre-operative results and documents have been reviewed as part of the pre-operative evaluation. [facility] Past Medical History Medical History (Updated 07/29/22 @ 11:37 by Xiomara Weller [facility] [address]) Anemia Anxiety Ascending aortic aneurysm Benign prostatic hyperplasia BMI 32.0-32.9,adult Chest congestion Cirrhosis of liver Coronary artery disease Status post three-vessel bypass in 2003. Cough Degenerative joint disease of knee Diastolic congestive heart failure Echocardiogram in 05/2019 showed mild LV ventricular enlargement, mild concentric LVH, moderate apical and apical septal hypokinesis, grade 2 diastolic dysfunction, EF 50%, moderately enlarged left atrium, moderate mitral and mild aortic valve regurgitation. DOLAN (dyspnea on exertion) Erectile dysfunction Esophageal web Status post multiple dilatations over the years. Follow up Gastric polyp Gastroesophageal reflux disease Gout Guaiac positive stools Hearing loss History of colon polyps History of pneumonia, recurrent Hospital discharge follow-up Interstitial lung disease Kidney stones Mixed hyperlipidemia Obesity Onychomycosis MACIEJ on CPAP Osteoarthritis Personal history of COVID-19 Right hip pain Right shoulder pain Shingles Skin lesion Skin lesion Systolic CHF UTI (urinary tract infection) Surgical History Surgical History (Reviewed 07/29/22 @ 11:15 by Xiomara Weller [facility]) History of arthroplasty of right knee (~12/23/20) History of arthroscopy of right knee History of colonoscopy with polypectomy History of coronary artery bypass graft x 3 (~2003) History of lumbar surgery Lumbar laminectomy at several levels with what sounds like foraminectomy as well. History of open reduction and internal fixation (ORIF) procedure Right lower extrem
[2022-08-06] MEDS: BENZOCAINE (*SP) 60 ML SPRAY CAN (HURRICAINE) 1 SPRAY MUCOUS MEM (11:15)
[2022-08-06] MEDS: SIMETHICONE ORAL SUSPENSION 20 MG/0.3 ML 30 ML BOTTLE 0.6 ML IRRIGATION (11:20)
[2022-08-06 11:28] VITALS: BP 135/65; PULSE 72; RESP 24; O2SAT 97
[2022-08-06 11:38] VITALS: BP 135/90; PULSE 72; RESP 24; O2SAT 98
[2022-08-06 11:48] VITALS: BP 153/68; PULSE 70; RESP 18; O2SAT 95
== END 2022-08-06 11:56 | disposition home or self-care (01) ==
PROVIDERS: PCP Internal Medicine; Visit Provider Internal Medicine Gastroenterology
PROC: 0DJ08ZZ Inspection of Upper Intestinal Tract, Via Natural or Artificial Opening Endoscopic (ICD-10-PCS; CPT 43235; principal; 2022-08-06 11:30)
DX: Q39.4 Esophageal web (principal); K31.7 Polyp of stomach and duodenum; I25.10 Atherosclerotic heart disease of native coronary artery without angina pectoris; E78.2 Mixed hyperlipidemia; K21.9 Gastro-esophageal reflux disease without esophagitis; I50.30 Unspecified diastolic (congestive) heart failure; G47.33 Obstructive sleep apnea (adult) (pediatric); J84.9 Interstitial pulmonary disease, unspecified; N40.0 Benign prostatic hyperplasia without lower urinary tract symptoms; D64.9 Anemia, unspecified; F41.9 Anxiety disorder, unspecified; K74.60 Unspecified cirrhosis of liver; M10.9 Gout, unspecified; E66.9 Obesity, unspecified; Z68.30 Body mass index [BMI] 30.0-30.9, adult; Z95.0 Presence of cardiac pacemaker; Z79.01 Long term (current) use of anticoagulants; Z79.84 Long term (current) use of oral hypoglycemic drugs; Z79.82 Long term (current) use of aspirin; Z95.1 Presence of aortocoronary bypass graft; Z87.891 Personal history of nicotine dependence; Z95.5 Presence of coronary angioplasty implant and graft
CPT/HCPCS: 43450; 43251; 82948; 88305; J2704; J7120

== ENCOUNTER 2022-08-31 12:20 | Outpatient (CLI) | payer MEDICARE, SELFPAY ==
--- NOTE | ~2022-08-31 | XR_ITS ---
XR shoulder LT min 2V 08/31/2022 12:48 Indication: Left shoulder pain after fall Procedure: 4 views left shoulder Comparison: 10/20/2018 Findings: There is polyarticular osteoarthritis. There are loose bodies adjacent to the acromioclavic ular joint. No fracture or traumatic malalignment. Battery pack overlies the left chest wall with ass ociated pacemaker leads. Lungs are clear. Impression: 1: Mild-moderate polyarticular osteoarthritis. Reviewed, dictated and finalized at location A. OR OSTEOPATHIC Impression: 1: Mild-moderate polyarticular osteoarthritis.
== END 2022-08-31 12:21 | disposition home or self-care (01) ==
PROVIDERS: PCP Internal Medicine; Visit Provider Internal Medicine
DX: M19.012 Primary osteoarthritis, left shoulder (principal)
CPT/HCPCS: 73030

== ENCOUNTER 2022-08-31 13:39 | Emergency (ER) | payer MEDICARE, SELFPAY ==
--- NOTE | ~2022-08-31 | XR_ITS ---
XR chest 2V 08/31/2022 14:28 Indication: Chest pain after fall Procedure: PA and lateral views the chest Comparison: Comparison to multiple prior studies sequentially, with oldest reviewed study dated 09/03. Findings: Cardiomegaly. Status post median sternotomy for CABG. Pacemaker leads are stable. There is chronic right basilar atelectasis/scarring. No focal pneumonia, edema, significant effusion or pneumo thorax. No acute osseous abnormality. Impression: 1: Chronic right basilar atelectasis/scarring. Reviewed, dictated and finalized at location A. DENTIAL SUPERVISOR Impression: 1: Chronic right basilar atelectasis/scarring.
[2022-08-31 13:50] VITALS: BP 152/115; PULSE 70; RESP 18; TEMP 36.7; O2SAT 97
--- NOTE | 2022-08-31 14:35 | ED.FALL ---
HPI - Fall General Chief Complaint: Fall Stated Complaint: fall-left side pain Time Seen by Provider: 08/31/22 14:00 History of Present Illness HPI Narrative: Pt tripped over concrete parking lot marker and fell landing on left shoulder and ribs. Pt complains of left shoulder pain and left rib pain. Pt unable to lift left shoulder. Pt had outpatient shoulder x ray that did not show a fx but did not get chest or rib x ray. Related Data Home Medications Medication Instructions Recorded Confirmed cholecalciferol (vitamin D3) 125 125 mcg PO QAM 05/06/20 08/03/22 mcg (5,000 unit) tablet (Vitamin D3) allopurinol 300 mg tablet 150 mg PO QAM 12/16/20 08/03/22 ascorbic acid (vitamin C) 1,000 mg 1 - 2 g PO DAILY 11/27/21 08/03/22 tablet furosemide 40 mg tablet 40 mg PO QAM 06/30/22 08/03/22 rivaroxaban 20 mg tablet (Xarelto) 20 mg PO DAILY 06/30/22 08/03/22 empagliflozin 5 mg-metformin ER 1 tablet PO DAILY 07/07/22 08/03/22 1,000 mg tablet,extended release 24 hr (Synjardy XR) aspirin 81 mg tablet 81 mg PO DAILY 08/03/22 08/03/22 atorvastatin 40 mg tablet 20 mg PO QPM 08/03/22 08/03/22 carvedilol 25 mg tablet 25 mg PO BID 08/03/22 08/03/22 cyanocobalamin (vitamin B-12) 1,000 mcg PO DAILY 08/03/22 08/03/22 1,000 mcg tablet (Vitamin B-12) folic acid 1 mg tablet 1 mg PO QPM 08/03/22 08/03/22 losartan 100 mg tablet 100 mg PO QPM 08/03/22 08/03/22 tamsulosin 0.4 mg capsule 0.4 mg PO HS 08/03/22 08/03/22 Allergies Allergy/AdvReac Type Severity Reaction Status Date / Time KATLYN Inhibitors AdvReac Mild Cough Verified 08/03/22 09:23 Review of Systems Review of Systems: All systems reviewed & are unremarkable except as noted in HPI and below PMFSH Past Medical History Medical History (Updated 08/31/22 @ 14:54 by Bolivar Prince Conrad III, DO) Anemia Anxiety Ascending aortic aneurysm Benign prostatic hyperplasia BMI 32.0-32.9,adult Chest congestion Cirrhosis of liver Coronary artery disease Status post three-vessel bypass in 2003. Cough Degenerative joint disease of knee Diastolic congestive heart failure Echocardiogram in 05/2019 showed mild LV ventricular enlargement, mild concentric LVH, moderate apical and apical septal hypokinesis, grade 2 diastolic dysfunction, EF 50%, moderately enlarged left atrium, moderate mitral and mild aortic valve regurgitation. DOLAN (dyspnea on exertion) Erectile dysfunction Esophageal web Status post multiple dilatations over the years. Follow up Gastric polyp Gastroesophageal reflux disease Gout Guaiac positive stools Hearing loss History of colon polyps History of pneumonia, recurrent Hospital discharge follow-up Interstitial lung disease Kidney stones Mixed hyperlipidemia Obesity Onychomycosis MACIEJ on CPAP Osteoarthritis Personal history of COVID-19 Right hip pain Right shoulder pain Shingles Skin lesion Skin lesion Systolic CHF UTI (urinary tract infection) Surgical History Surgical History History of arthroplasty of right knee (~12/23/20) History of arthroscopy of right knee History of colonoscopy with polypectomy History of coronary artery bypass graft x 3 (~2003) History of lumbar surgery Lumbar laminectomy at several levels with what sounds like foraminectomy as well. History of open reduction and internal fixation (ORIF) procedure Right lower extremity fracture. History of permanent cardiac pacemaker placement History of tonsillectomy Family History Family History Mother Diabetes mellitus Cerebrovascular accident Father Acute myocardial infarction Hypertension Bladder cancer Other Arthritis Heart disease Social History Social History (Updated 07/29/22 @ 11:16 by Xiomara Weller CMA) Social History: Surrogate decision maker: Pilar George, daughter. Code status: Full code. Smoking packs per day: 2 Smoking cigarettes per
== END 2022-08-31 15:13 | disposition home or self-care (01) ==
LOC: ANHED 14:56
PROVIDERS: Emergency Provider Emergency Medicine; PCP Internal Medicine
DX: S46.912A Strain of unspecified muscle, fascia and tendon at shoulder and upper arm level, left arm, initial encounter (principal); S20.212A Contusion of left front wall of thorax, initial encounter; I50.40 Unspecified combined systolic (congestive) and diastolic (congestive) heart failure; I25.10 Atherosclerotic heart disease of native coronary artery without angina pectoris; J84.9 Interstitial pulmonary disease, unspecified; K74.60 Unspecified cirrhosis of liver; E78.2 Mixed hyperlipidemia; G47.33 Obstructive sleep apnea (adult) (pediatric); N40.0 Benign prostatic hyperplasia without lower urinary tract symptoms; M19.90 Unspecified osteoarthritis, unspecified site; K21.9 Gastro-esophageal reflux disease without esophagitis; E66.9 Obesity, unspecified; Z68.31 Body mass index [BMI] 31.0-31.9, adult; Z95.0 Presence of cardiac pacemaker; Z95.1 Presence of aortocoronary bypass graft; Z96.651 Presence of right artificial knee joint; Z87.01 Personal history of pneumonia (recurrent); Z86.010 Personal history of colon polyps; Z86.2 Personal history of diseases of the blood and blood-forming organs and certain disorders involving the immune mechanism; Z87.440 Personal history of urinary (tract) infections; Z87.891 Personal history of nicotine dependence; Z79.82 Long term (current) use of aspirin; Z79.01 Long term (current) use of anticoagulants; W18.09XA Striking against other object with subsequent fall, initial encounter
CPT/HCPCS: 71046; 73030; 99283; A4565

== ENCOUNTER 2022-09-29 09:12 | Outpatient (CLI) | payer MEDICARE, SELFPAY ==
--- NOTE | ~2022-09-29 | XR_ITS ---
Clinical Indication: Shortness of breath PA and lateral views of the chest: Comparison: 08/31/2022 Findings: The lungs are clear, without evidence of focal consolidation or pleural effusion. Cardiome diastinal silhouette is stable, with pacemaker device. Bones and soft tissues are unremarkable. Impression: Clear lungs. Pacemaker device. Reviewed, dictated and finalized at location . FIXER HELPER Impression: Clear lungs. Pacemaker device.
[2022-09-29 10:33] LABS: SARS-CoV-2 RNA PCR Positive
== END 2022-09-29 09:13 | disposition home or self-care (01) ==
PROVIDERS: PCP Internal Medicine; Visit Provider Internal Medicine
DX: U07.1 COVID-19 (principal); Z95.0 Presence of cardiac pacemaker
CPT/HCPCS: 71046; U0003; U0005

== ENCOUNTER 2022-10-25 10:07 | Outpatient (CLI) | payer MEDICARE, SELFPAY ==
--- NOTE | ~2022-10-25 | CT_ITS ---
EXAMINATION: CT chest high resolution wo co DATE: 10/25/2022 10:24 INDICATION: ILD TECHNIQUE: Computed tomography (CT) of the chest was performed without intravenous contrast. Addition al 3D reconstructions utilizing coronal maximum intensity projection (MIP) were performed. Automated exposure control and iterative reconstruction technique were employed. The dose-length prod uct was 354.61 mGy-cm. COMPARISON: 10/29/2021 FINDINGS: Mild groundglass opacities and septal line thickening bilaterally with peripheral dependent lower eliza g predominance. This delineates mild peripheral cystic lung disease which could be related to mild em physema were honeycombing. The groundglass opacities and septal line thickening appear slightly impro matilda since the prior study which favors mild pulmonary edema superimposed over mild emphysema over usu al interstitial pneumonia (UIP) pattern chronic interstitial lung disease. No pleural effusion or pne umothorax. Moderate cardiomegaly with coronary artery disease. Postoperative change of prior median s ternotomy, coronary artery bypass grafting and likely coronary artery stenting. No pericardial effusi on. Aortic valve calcification. Fusiform ascending thoracic aortic aneurysm measuring up to 5.1 x 4.6 cm in maximal diameter. Prominent enlargement of the central pulmonary arteries consistent with pulm onary arterial hypertension. No pathologically enlarged thoracic lymphadenopathy. 7.4 cm left renal c yst. Moderate thoracic spondylosis. IMPRESSION: 1. Peripheral and dependent predominant groundglass opacities and septal line thickening in the bilat eral lower lungs with differential including congestive heart failure related mild pulmonary edema holloway perimposed over mild emphysema or UIP pattern chronic interstitial lung disease. Given the slight int erval improvement would favor the former. 2. Moderate cardiomegaly. 3. Ascending thoracic aortic aneurysm measuring 5.1 x 4.6 cm maximal diameter. 4. Enlargement of the central pulmonary arteries consistent with pulmonary arterial hypertension. Reviewed, dictated and finalized at location B. TRUCTION ADMINISTRATIVE ASSISTANT IMPRESSION: 1. Peripheral and dependent predominant groundglass opacities and septal line t hickening in the bilateral lower lungs with differential including congestive h eart failure related mild pulmonary edema superimposed over mild emphysema or U IP pattern chronic interstitial lung disease. Given the slight interval improve ment would favor the former. 2. Moderate cardiomegaly. 3. Ascending thoracic aortic aneurysm measuring 5.1 x 4.6 cm maximal diameter. 4. Enlargement of the central pulmonary arteries consistent with pulmonary ozzy rial hypertension.
== END 2022-10-25 10:08 | disposition home or self-care (01) ==
PROVIDERS: PCP Internal Medicine; Visit Provider Physician Assistant
DX: J84.9 Interstitial pulmonary disease, unspecified (principal); R91.8 Other nonspecific abnormal finding of lung field; I51.7 Cardiomegaly; I71.40 Abdominal aortic aneurysm, without rupture, unspecified; I71.21 Aneurysm of the ascending aorta, without rupture
CPT/HCPCS: 71250

== ENCOUNTER 2022-11-18 16:00 | Outpatient (CLI) | payer MEDICARE, SELFPAY ==
[2022-11-18 16:28] LABS: Hematocrit 44.7 % (42.0-52.0); Hemoglobin 14.6 g/dL (14.0-18.0); Mean Corpuscular HGB Conc 32.7 g/dl (32-36); Mean Corpuscular Hemoglobin 34.4 pg (26-34); Mean Corpuscular Volume 105.4 fl (80-100); Mean Platelet Volume 9.9 fl (7.4-10.4); Platelet Count Result 169 k/mm3 (150-375); Red Blood Count 4.24 M/mm3 (4.6-6.20); Red Cell Distribution Width 14.5 % (11.5-14.5)
[2022-11-18 16:35] LABS: Creatinine Urine 49.2 mg/dL; Total Protein Urine Random 13 mg/dL; Ur Ttl Prot Creatinine Ratio 0.26 mg/mg (0-0.20)
[2022-11-18 16:46] LABS: Anion Gap 5 mmol/L (8-16); Blood Urea Nitrogen 19 mg/dL (9-20); Calcium 8.7 mg/dL (8.4-10.2); Carbon Dioxide 31 mmol/L (22-30); Chloride 102 mmol/L (98-107); Estimated Glomerular Filt Rate > 60; Glucose 164 mg/dL (65-110); Phosphorus 2.8 mg/dL (2.5-4.5); Potassium 3.8 mmol/L (3.4-5.0); Sodium 138 mmol/L (137-145)
[2022-11-18 16:55] LABS: Parathyroid Intact 30.3 pg/mL (7.5-53.5)
== END 2022-11-18 16:01 | disposition home or self-care (01) ==
LOC: ANHLAB 16:04
PROVIDERS: PCP Internal Medicine; Visit Provider Internal Medicine Nephrology
DX: N18.31 Chronic kidney disease, stage 3a (principal)
CPT/HCPCS: 36415; 80069; 82570; 83970; 84156; 85027

== ENCOUNTER 2022-12-06 12:41 | Outpatient (CLI) | payer MEDICARE, SELFPAY ==
--- NOTE | ~2022-12-06 | XR_ITS ---
XR chest 2V DATE: 12/06/2022 12:58 INDICATION: Cough TECHNIQUE: 2 views COMPARISON: 10/25/2022 CT chest high resolution scan 09/29/2022 2 view chest FINDINGS: Left transvenous pacemaker device with leads overlying right atrium and right ventricle. Status post sternotomy. Heart size is within normal range. Aortic calcification, ectasia and mild unfolding. No hilar or medi astinal enlargement. There may be minimal atelectasis at the lung bases. The lungs are otherwise clear. No pleural effusio n or pulmonary vascular congestion or pneumothorax is detected. IMPRESSION: Status post sternotomy Left dual-lead pacemaker Aortic calcification, ectasia and minimal unfolding alignment minimal atelectasis is suggested at the lung bases Reviewed, dictated and finalized at location B. DOMETER INSPECTOR IMPRESSION: Status post sternotomy Left dual-lead pacemaker Aortic calcification, ectasia and minimal unfolding alignment minimal atelectas is is suggested at the lung bases
== END 2022-12-06 12:42 | disposition home or self-care (01) ==
LOC: ANHIMG 12:43
PROVIDERS: PCP Internal Medicine; Visit Provider Internal Medicine
DX: R05.9 Cough, unspecified (principal); Z95.0 Presence of cardiac pacemaker; I70.0 Atherosclerosis of aorta
CPT/HCPCS: 71046

== ENCOUNTER 2022-12-07 12:12 | Outpatient (CLI) | payer MEDICARE, SELFPAY | END 2022-12-07 12:13 | disposition home or self-care (01) | PROVIDERS: PCP Internal Medicine; Visit Provider Internal Medicine | DX: R05.3 Chronic cough (principal); R09.3 Abnormal sputum | CPT/HCPCS: 87070; 87205 ==

== ENCOUNTER 2022-12-10 13:05 | Outpatient (CLI) | payer MEDICARE, SELFPAY ==
[2022-12-10 13:50] LABS: Basophils Percent Auto 0.4 % (0.2-1.2); Eosinophils Absolute Auto 0.2 K/mm3 (0-0.3); Hematocrit 44.6 % (42.0-52.0); Hemoglobin 14.5 g/dL (14.0-18.0); Immature Granulocyte Absolute 0.04 K/mm3 (0.00-0.031); Immature Granulocyte Percent A 0.5 % (0-0.5); Lymphocytes Absolute Auto 1.51 K/mm3 (0.9-3.2); Lymphocytes Percent Auto 17.9 % (18.3-44.2); Mean Corpuscular HGB Conc 32.5 g/dl (32-36); Mean Corpuscular Hemoglobin 33.2 pg (26-34); Mean Corpuscular Volume 102.1 fl (80-100); Mean Platelet Volume 9.7 fl (7.4-10.4); Monocytes Absolute Auto 0.7 K/mm3 (0.1-0.6); Monocytes Percent Auto 8.4 % (2.6-8.5); Neutrophils Percent Auto 70.8 % (45.5-73.1); Platelet Count Result 297 k/mm3 (150-375); Red Blood Count 4.37 M/mm3 (4.6-6.20); Red Cell Distribution Width 14.9 % (11.5-14.5); White Blood Count 8.4 K/mm3 (4.5-10.0)
[2022-12-10 14:02] LABS: Alanine Aminotransferase 29 U/L (6-50); Albumin Level 4.1 g/dL (3.5-5.1); Alkaline Phosphatase 100 U/L (38-126); Anion Gap 4 mmol/L (8-16); Aspartate Amino Transferase 33 U/L (17-59); Bilirubin,Total 1.1 mg/dL (0.2-1.3); Blood Urea Nitrogen 17 mg/dL (9-20); Carbon Dioxide 34 mmol/L (22-30); Chloride 100 mmol/L (98-107); Cholesterol 103 mg/dL (0-200); Estimated Glomerular Filt Rate > 60; Glucose 124 mg/dL (65-110); HDL Direct 45 mg/dL; Potassium 4.1 mmol/L (3.4-5.0); Sodium 138 mmol/L (137-145); Triglycerides 92 mg/dL (<150)
[2022-12-10 14:13] LABS: LDL Cholesterol Direct 43 mg/dL
[2022-12-10 15:52] LABS: Hemoglobin A1C 7.2 % (<5.7)
[2022-12-13 13:26] LABS: Folic Acid > 20.0 ng/mL (2.76->20)
== END 2022-12-10 13:06 | disposition home or self-care (01) ==
LOC: ANHLAB 13:08
PROVIDERS: PCP Internal Medicine; Visit Provider Internal Medicine
DX: E11.9 Type 2 diabetes mellitus without complications (principal); E55.9 Vitamin D deficiency, unspecified; I10 Essential (primary) hypertension; E78.2 Mixed hyperlipidemia; E53.8 Deficiency of other specified B group vitamins
CPT/HCPCS: 36415; 80053; 80061; 82306; 82607; 82746; 83036; 85025

== ENCOUNTER 2023-02-17 08:03 | Outpatient (CLI) | payer MEDICARE, SELFPAY ==
--- NOTE | 2023-02-17 11:05 | WPDPFTINT ---
PFT Procedure Performed PFT Procedure Performed Spirometry with Pre/Post Bronchodilator Plethysmography (Lung Vol) Diffusing Cap (DLCO) Flow Vol Loop PFT Interpretation Lung volumes were measured with the body plethysmography method. Lung volumes are unremarkable. Spirometry showed normal expiratory flow rates and a normal FEV1 to FVC ratio of 68%. Following administration of a bronchodilator there was no significant increase in expiratory flow rates. Lung diffusion capacity is mildly reduced at 64% predicted. The flow-volume loop is unremarkable. In comparison to a previous study in January of 2022, the post bronchodilator FVC is now greater by approximately 0.5 L whereas the FEV1 is essentially unchanged. Total lung capacity and lung diffusion capacity are also unchanged. Impression: Spirometry, lung volumes within normal range. Mild reduction in lung diffusion capacity.
== END 2023-02-17 08:04 | disposition home or self-care (01) ==
PROVIDERS: PCP Internal Medicine; Visit Provider Physician Assistant
DX: J84.9 Interstitial pulmonary disease, unspecified (principal)
CPT/HCPCS: 94060; 94726; 94729

== ENCOUNTER 2023-04-07 15:07 | Outpatient (CLI) | payer MEDICARE, SELFPAY ==
[2023-04-07 17:05] LABS: Alanine Aminotransferase 24 U/L (6-50); Alkaline Phosphatase 92 U/L (38-126); Anion Gap 7 mmol/L (8-16); Aspartate Amino Transferase 33 U/L (17-59); Bilirubin,Total 1.5 mg/dL (0.2-1.3); Blood Urea Nitrogen 18 mg/dL (9-20); Calcium 8.7 mg/dL (8.4-10.2); Carbon Dioxide 32 mmol/L (22-30); Chloride 103 mmol/L (98-107); Cholesterol 93 mg/dL (0-200); Estimated Glomerular Filt Rate 58; Glucose 96 mg/dL (65-110); HDL Direct 41 mg/dL; Potassium 3.6 mmol/L (3.4-5.0); Sodium 142 mmol/L (137-145); Triglycerides 82 mg/dL (<150)
[2023-04-07 17:16] LABS: LDL Cholesterol Direct 37 mg/dL
[2023-04-07 17:43] LABS: Hemoglobin A1C 6.6 % (<5.7)
== END 2023-04-07 15:08 | disposition home or self-care (01) ==
LOC: ANHLAB 15:11
PROVIDERS: PCP Internal Medicine; Visit Provider Internal Medicine
DX: E11.9 Type 2 diabetes mellitus without complications (principal); I10 Essential (primary) hypertension; E78.2 Mixed hyperlipidemia
CPT/HCPCS: 36415; 80053; 80061; 83036

== ENCOUNTER 2023-05-26 00:37 | Day surgery (SDC) | payer MEDICARE, SELFPAY ==
[2023-05-17 12:15] VITALS: BMI 30.2
--- NOTE | 2023-05-26 11:46 | PM.HPGS ---
History of Present Illness History of Present Illness Consent: Risks, benefits, and alternatives have been discussed and questions answered. Patient agrees to proceed with procedure. Chief complaint: dysphagia Narrative: Drew Pak is a 83 year old male Presents for follow-up EGD. Patient states food catches in the throat. This happens with solids more so than liquids. Previous endoscopy in August revealed distal esophageal web. This was dilated at that time of patient felt improvement. Reports current symptoms are similar to be that experience prior to previous endoscopy. We discussed possible esophageal motility study or modified barium swallow up patient desires follow-up EGD initially. Patient denies any weight loss or bleeding. Past medical history is significant for cirrhosis. Patient denies weight loss at present family history noncontributory. Review of Systems Review of Systems: Review of systems noncontributory. [facility] Past Medical History Medical History Anemia Anxiety Ascending aortic aneurysm Benign prostatic hyperplasia BMI 29.0-29.9,adult BMI 30.0-30.9,adult BMI 31.0-31.9,adult BMI 32.0-32.9,adult BMI 34.0-34.9,adult BMI 35.0-35.9,adult BMI 36.0-36.9,adult Bronchitis Chest congestion CHF exacerbation Cirrhosis of liver Coronary artery disease Status post three-vessel bypass in 2003. Cough Degenerative joint disease of knee Diastolic congestive heart failure Echocardiogram in 05/2019 showed mild LV ventricular enlargement, mild concentric LVH, moderate apical and apical septal hypokinesis, grade 2 diastolic dysfunction, EF 50%, moderately enlarged left atrium, moderate mitral and mild aortic valve regurgitation. DOLAN (dyspnea on exertion) Elevated troponin Erectile dysfunction Esophageal web Status post multiple dilatations over the years. Fall Gastric polyp Gastroesophageal reflux disease Gout Guaiac positive stools Hearing loss History of colon polyps History of pneumonia, recurrent Hospital discharge follow-up Impacted cerumen of both ears Interstitial lung disease Kidney stones Mixed hyperlipidemia Obesity Onychomycosis MACIEJ on CPAP Osteoarthritis Personal history of COVID-19 Pneumonia Right hip pain Right shoulder pain Ringworm Shingles Skin lesion Skin lesion Systolic CHF UTI (urinary tract infection) Wound of right foot Surgical History Surgical History History of arthroplasty of right knee (~12/23/20) History of arthroscopy of right knee History of colonoscopy with polypectomy History of coronary artery bypass graft x 3 (~2003) History of lumbar surgery Lumbar laminectomy at several levels with what sounds like foraminectomy as well. History of open reduction and internal fixation (ORIF) procedure Right lower extremity fracture. History of permanent cardiac pacemaker placement History of tonsillectomy Family History Family History Mother Diabetes mellitus Cerebrovascular accident Father Acute myocardial infarction Hypertension Bladder cancer Other Arthritis Heart disease Social History Social History Social History: Surrogate decision maker: Pilar George, daughter. Code status: Full code. Caffeine-coffee Smoking packs per day: 3 Smoking cigarettes per day: 60.0 Years smoked: 22 Smoking pack-years: 66.00 Smoking status: Former smoker Tobacco type: cigarettes Second hand tobacco smoke exposure: Yes Smoking end date: 10/03/81 Additional smoking assessment comments: Up to 3 packs a day, quit in 1981. Alcohol intake: current Alcohol use details: No alcohol since 2013. Substance use: never Substance use type: does not use Lack of Transportation: No Lack of Food: Never True Current Terrell
[2023-05-26 12:02] VITALS: BP 126/79; PULSE 70; RESP 18; TEMP 36.4; O2SAT 97
[2023-05-26] MEDS: LACTATED RINGERS 1,000 ML 150 ML IV CONT (12:15)
--- NOTE | 2023-05-26 12:21 | WPDANESEPPF ---
Anes - Initial Pre Proc Eval Procedure: Operation Date: 05/26/23 13:00 Proposed Procedures p Esophagogastroduodenoscopy - Gerard Escobar MD Date/Time: 05/26/23 12:21 Surgeon: Gerard Escobar MD Pre Op Diagnosis: dysphagia Patient Data Age: 83 Gender: M Height: 1.75 m Weight: 93.4 kg Last Vital Signs Temp 36.4 C 05/26/23 12:02 Pulse 70 05/26/23 12:02 Resp 18 05/26/23 12:02 BP 126/79 05/26/23 12:02 Pulse Ox 97 05/26/23 12:02 O2 Del Method Room Air 05/26/23 12:02 Allergies Allergy/AdvReac Type Severity Reaction Status Date / Time KATLYN Inhibitors AdvReac Intermediate Cough Verified 05/26/23 11:58 Home Medications Medication Instructions Recorded Confirmed Type allopurinol 300 mg tablet 150 mg PO DAILY 12/16/20 05/26/23 History ascorbic acid (vitamin C) 1,000 mg 1 g PO DAILY 11/27/21 05/26/23 History tablet omeprazole 20 mg capsule,delayed 20 mg PO DAILY #90 caps 06/21/22 05/26/23 Rx release rivaroxaban 20 mg tablet (Xarelto) 20 mg PO DAILY 06/30/22 05/26/23 History aspirin 81 mg tablet 81 mg PO DAILY 08/03/22 05/26/23 History albuterol sulfate 2.5 mg/3 mL 2.5 mg (3 mL) inhalation Q4-6H PRN 11/29/22 05/26/23 Rx (0.083 %) solution for nebulization shortness of breath or wheezing #90 mL carvedilol 12.5 mg tablet 12.5 mg PO BID #180 tabs 01/10/23 05/26/23 Rx empagliflozin 5 mg-metformin ER 1 tablet PO DAILY #90 ea 03/07/23 05/26/23 Rx 1,000 mg tablet,extended release 24 hr (Synjardy XR) potassium citrate 10 mEq (1,080 10 meq PO DAILY #90 tabs 03/28/23 05/26/23 Rx mg) tablet,extended release hydrocodone 5 mg-acetaminophen 325 1 tablet PO .COMPLEX PRN pain #40 05/06/23 05/26/23 Rx mg tablet tabs atorvastatin 10 mg tablet 10 mg PO QPM 05/17/23 05/26/23 History cephalexin 500 mg capsule 500 mg PO TID PRN Rash 05/17/23 05/26/23 History cholecalciferol (vitamin D3) 50 50 mcg PO DAILY 05/17/23 05/26/23 History mcg (2,000 unit) capsule (Vitamin D3) folic acid 1 mg tablet 1 mg PO QPM 05/17/23 05/26/23 History furosemide 40 mg tablet 40 mg PO DAILY 05/17/23 05/26/23 History losartan 100 mg tablet 100 mg PO QPM 05/17/23 05/26/23 History quercetin 1 cap PO DAILY 05/17/23 05/26/23 History tamsulosin 0.4 mg capsule 0.4 mg PO QPM 05/17/23 05/26/23 History triamcinolone acetonide 0.5 % 1 applic topical BID PRN Rash 05/17/23 05/26/23 History topical cream vitamin B complex 1 cap PO DAILY 05/17/23 05/26/23 History Patient hx anesthesia problems: none Family hx anesthesia problems: none Results Review: All pre-operative results and documents have been reviewed as part of the pre-operative evaluation. [facility] Past Medical History Medical History Anemia Anxiety Ascending aortic aneurysm Benign prostatic hyperplasia BMI 29.0-29.9,adult BMI 30.0-30.9,adult BMI 31.0-31.9,adult BMI 32.0-32.9,adult BMI 34.0-34.9,adult BMI 35.0-35.9,adult BMI 36.0-36.9,adult Bronchitis Chest congestion CHF exacerbation Cirrhosis of liver Coronary artery disease Status post three-vessel bypass in 2003. Cough Degenerative joint disease of knee Diastolic congestive heart failure Echocardiogram in 05/2019 showed mild LV ventricular enlargement, mild concentric LVH, moderate apical and apical septal hypokinesis, grade 2 diastolic dysfunction, EF 50%, moderately enlarged left atrium, moderate mitral and mild aortic valve regurgitation. DOLAN (dyspnea on exertion) Elevated troponin Erectile dysfunction Esophageal web Status post multiple dilatations over the years. Fall Gastric polyp Gastroesophageal reflux disease Gout Guaiac positive stools Hearing loss History of colon polyps History of pneumonia, recurrent Hospital discharge follow-up Impacted cerumen of both ears Interstitial lung disease Kidney stones Mixed hyperlipidemia Obesity Onychomycosis MACIEJ on CPAP Osteoarthritis Personal history of COVID-19 Pneumonia Rig
[2023-05-26 13:12] VITALS: BP 115/67; PULSE 70; RESP 15; O2SAT 100
[2023-05-26 13:22] VITALS: BP 141/83; PULSE 80; RESP 16; O2SAT 98
[2023-05-26 13:32] VITALS: BP 132/81; PULSE 70; RESP 25; O2SAT 96
[2023-05-26 14:09] LABS: Glucose Point of Care 117 mg/dl (65-105)
== END 2023-05-26 13:56 | disposition home or self-care (01) ==
PROVIDERS: PCP Internal Medicine; Visit Provider Internal Medicine Gastroenterology
PROC: 0DJ08ZZ Inspection of Upper Intestinal Tract, Via Natural or Artificial Opening Endoscopic (ICD-10-PCS; CPT 43235; principal; 2023-05-26 13:00)
DX: Q39.4 Esophageal web (principal); K31.7 Polyp of stomach and duodenum; I50.30 Unspecified diastolic (congestive) heart failure; D64.9 Anemia, unspecified; F41.9 Anxiety disorder, unspecified; K74.60 Unspecified cirrhosis of liver; I25.10 Atherosclerotic heart disease of native coronary artery without angina pectoris; K21.9 Gastro-esophageal reflux disease without esophagitis; M10.9 Gout, unspecified; E78.2 Mixed hyperlipidemia; J84.9 Interstitial pulmonary disease, unspecified; G47.33 Obstructive sleep apnea (adult) (pediatric); E66.9 Obesity, unspecified; Z68.30 Body mass index [BMI] 30.0-30.9, adult; Z79.01 Long term (current) use of anticoagulants; Z79.82 Long term (current) use of aspirin; Z79.51 Long term (current) use of inhaled steroids; Z79.84 Long term (current) use of oral hypoglycemic drugs; Z79.891 Long term (current) use of opiate analgesic; Z95.1 Presence of aortocoronary bypass graft; Z87.891 Personal history of nicotine dependence
CPT/HCPCS: 43450; 43235; 82948; J2704; J7120

== ENCOUNTER 2023-06-07 15:59 | Emergency (ER) | payer MEDICARE, SELFPAY ==
--- NOTE | 2023-06-07 16:03 | ED.LOWEXIN ---
HPI - Extremity Injury (Lower) General Chief Complaint: Skin/Abscess/Foreign Body Stated Complaint: Rt Leg Pain Time Seen by Provider: 06/07/23 16:06 Source: patient Mode of arrival: ambulatory Limitations: no limitations History of Present Illness HPI Narrative: Drew is an 83-year-old male patient presenting to the clinic today with complaints of right leg pain/injury. He reports he was mowing on and he thinks he may have cut his leg on a tree branch. Reports some drainage coming from the right anterior leg wound. Leg is swollen and red around the cut. States he has been having some yellow discharge coming from the wound. Denies any fever or chills. Related Data Home Medications Medication Instructions Recorded Confirmed allopurinol 300 mg tablet 150 mg PO DAILY 12/16/20 06/07/23 ascorbic acid (vitamin C) 1,000 mg 1 g PO DAILY 11/27/21 06/07/23 tablet rivaroxaban 20 mg tablet (Xarelto) 20 mg PO DAILY 06/30/22 06/07/23 aspirin 81 mg tablet 81 mg PO DAILY 08/03/22 06/07/23 atorvastatin 10 mg tablet 10 mg PO QPM 05/17/23 06/07/23 cholecalciferol (vitamin D3) 50 50 mcg PO DAILY 05/17/23 06/07/23 mcg (2,000 unit) capsule (Vitamin D3) furosemide 40 mg tablet 40 mg PO DAILY 05/17/23 06/07/23 losartan 100 mg tablet 100 mg PO QPM 05/17/23 06/07/23 tamsulosin 0.4 mg capsule 0.4 mg PO QPM 05/17/23 06/07/23 vitamin B complex 1 cap PO DAILY 05/17/23 06/07/23 Allergies Allergy/AdvReac Type Severity Reaction Status Date / Time KATLYN Inhibitors AdvReac Intermediate Cough Verified 06/07/23 16:13 Review of Systems Review of Systems: Pertinent positives per HPI. Patient denies any fever, chills, rash, headache, visual changes, dizziness, cough, runny nose, sore throat, shortness of breath, chest pain, palpitations, nausea, vomiting, diarrhea, constipation, abdominal pain, or any urinary issues. [facility] Past Medical History Medical History Anemia Anxiety Ascending aortic aneurysm Benign prostatic hyperplasia BMI 29.0-29.9,adult BMI 30.0-30.9,adult BMI 31.0-31.9,adult BMI 32.0-32.9,adult BMI 34.0-34.9,adult BMI 35.0-35.9,adult BMI 36.0-36.9,adult Bronchitis Chest congestion CHF exacerbation Cirrhosis of liver Coronary artery disease Status post three-vessel bypass in 2003. Cough Degenerative joint disease of knee Diastolic congestive heart failure Echocardiogram in 05/2019 showed mild LV ventricular enlargement, mild concentric LVH, moderate apical and apical septal hypokinesis, grade 2 diastolic dysfunction, EF 50%, moderately enlarged left atrium, moderate mitral and mild aortic valve regurgitation. DOLAN (dyspnea on exertion) Elevated troponin Erectile dysfunction Esophageal web Status post multiple dilatations over the years. Fall Gastric polyp Gastroesophageal reflux disease Gout Guaiac positive stools Hearing loss History of colon polyps History of pneumonia, recurrent Hospital discharge follow-up Impacted cerumen of both ears Interstitial lung disease Kidney stones Mixed hyperlipidemia Obesity Onychomycosis MACIEJ on CPAP Osteoarthritis Personal history of COVID-19 Pneumonia Right hip pain Right shoulder pain Ringworm Shingles Skin lesion Skin lesion Systolic CHF UTI (urinary tract infection) Wound of right foot Surgical History Surgical History History of arthroplasty of right knee (~12/23/20) History of arthroscopy of right knee History of colonoscopy with polypectomy History of coronary artery bypass graft x 3 (~2003) History of lumbar surgery Lumbar laminectomy at several levels with what sounds like foraminectomy as well. History of open reduction and internal fixation (ORIF) procedure Right lower extremity fracture. History of permanent cardiac pacemaker placement History of tonsillectomy Family History Family History (Reviewed 06/07/23 @ 16:06 by Troy Ponce
[2023-06-07 16:18] VITALS: BP 96/51; PULSE 70; RESP 18; TEMP 36.9; O2SAT 96
== END 2023-06-07 16:35 | disposition home or self-care (01) ==
PROVIDERS: Emergency Provider Nurse Practitioner Family; PCP Internal Medicine
DX: S81.811A Laceration without foreign body, right lower leg, initial encounter (principal); L03.115 Cellulitis of right lower limb; W45.8XXA Other foreign body or object entering through skin, initial encounter; Z87.891 Personal history of nicotine dependence; N40.0 Benign prostatic hyperplasia without lower urinary tract symptoms; I50.30 Unspecified diastolic (congestive) heart failure; G47.33 Obstructive sleep apnea (adult) (pediatric); I25.10 Atherosclerotic heart disease of native coronary artery without angina pectoris; K21.9 Gastro-esophageal reflux disease without esophagitis; K74.60 Unspecified cirrhosis of liver; E78.2 Mixed hyperlipidemia; E66.9 Obesity, unspecified; Z68.31 Body mass index [BMI] 31.0-31.9, adult; Z95.1 Presence of aortocoronary bypass graft; Z95.0 Presence of cardiac pacemaker; Z79.01 Long term (current) use of anticoagulants; Z79.82 Long term (current) use of aspirin
CPT/HCPCS: 99213; G0463

== ENCOUNTER 2023-09-07 11:35 | Outpatient (CLI) | payer MEDICARE, SELFPAY ==
[2023-09-07 12:03] LABS: Cholesterol 108 mg/dL (0-200); HDL Direct 49 mg/dL; Triglycerides 115 mg/dL (<150)
[2023-09-07 12:14] LABS: LDL Cholesterol Direct 45 mg/dL
[2023-09-07 12:57] LABS: Creatinine Urine 24.5 mg/dL
[2023-09-07 13:15] LABS: Microalbumin Urine Random < 6.0 mg/L (0-16.7)
[2023-09-07 13:32] LABS: Hemoglobin A1C 6.4 % (<5.7)
== END 2023-09-07 11:36 | disposition home or self-care (01) ==
PROVIDERS: PCP Internal Medicine; Visit Provider Internal Medicine
DX: E11.9 Type 2 diabetes mellitus without complications (principal); E78.2 Mixed hyperlipidemia; N18.32 Chronic kidney disease, stage 3b
CPT/HCPCS: 36415; 80061; 82043; 83036

== ENCOUNTER 2023-09-15 10:17 | Outpatient (CLI) | payer MEDICARE, SELFPAY ==
--- NOTE | ~2023-09-15 | XR_ITS ---
Clinical Indication: Cough PA and lateral views of the chest: Comparison: 12/06/2022 Findings: The lungs are clear, without evidence of focal consolidation or pleural effusion. Cardiome diastinal silhouette is stable, with pacemaker device. Bones and soft tissues are unremarkable. Impression: Clear lungs. Reviewed, dictated and finalized at location . GER ELECTRICAL Impression: Clear lungs.
== END 2023-09-15 10:18 | disposition home or self-care (01) ==
PROVIDERS: PCP Internal Medicine; Visit Provider Internal Medicine
DX: R05.9 Cough, unspecified (principal)
CPT/HCPCS: 71046

== ENCOUNTER 2023-09-27 10:10 | Outpatient (CLI) | payer MEDICARE, SELFPAY ==
--- NOTE | ~2023-09-27 | XR_ITS ---
EXAMINATION: XR sinus min 3V DATE: 09/27/2023 10:33 INDICATION: Nasal congestion. TECHNIQUE: 5 views of the paranasal sinuses were obtained. COMPARISON: CT sinuses 10/31/13 FINDINGS: There is leftward deviation of the nasal septum. No acute fracture. There is an old blowout fracture of medial wall of left orbit. The paranasal sinuses are clear. IMPRESSION: 1. Leftward deviation of the nasal septum. Reviewed, dictated and finalized at location E. [facility] [employer] CHART
== END 2023-09-27 10:11 | disposition home or self-care (01) ==
LOC: ANHIMG 10:15
PROVIDERS: PCP Internal Medicine; Visit Provider Internal Medicine
DX: R04.0 Epistaxis (principal); R09.81 Nasal congestion; J34.2 Deviated nasal septum
CPT/HCPCS: 70220

== ENCOUNTER 2023-12-06 10:18 | Outpatient (CLI) | payer MEDICARE, SELFPAY ==
[2023-12-06 10:49] LABS: Basophils Percent Auto 0.2 % (0.2-1.2); Eosinophils Absolute Auto 0.1 K/mm3 (0-0.3); Hematocrit 44.4 % (42.0-52.0); Hemoglobin 13.8 g/dL (14.0-18.0); Immature Granulocyte Absolute 0.11 K/mm3 (0.00-0.031); Immature Granulocyte Percent A 0.9 % (0-0.5); Lymphocytes Absolute Auto 1.14 K/mm3 (0.9-3.2); Lymphocytes Percent Auto 9.1 % (18.3-44.2); Mean Corpuscular HGB Conc 31.1 g/dl (32-36); Mean Corpuscular Hemoglobin 30.3 pg (26-34); Mean Corpuscular Volume 97.6 fl (80-100); Mean Platelet Volume 10.2 fl (7.4-10.4); Monocytes Absolute Auto 0.9 K/mm3 (0.1-0.6); Monocytes Percent Auto 7.1 % (2.6-8.5); Neutrophils Absolute Auto 10.2 K/mm3 (1.3-6.7); Neutrophils Percent Auto 81.7 % (45.5-73.1); Platelet Count Result 344 k/mm3 (150-375); Red Blood Count 4.55 M/mm3 (4.6-6.20); Red Cell Distribution Width 15.5 % (11.5-14.5); White Blood Count 12.5 K/mm3 (4.5-10.0)
[2023-12-06 11:00] LABS: Anion Gap 8 mmol/L (8-16); Blood Urea Nitrogen 45 mg/dL (9-20); Calcium 8.9 mg/dL (8.4-10.2); Carbon Dioxide 26 mmol/L (22-30); Chloride 102 mmol/L (98-107); Estimated Glomerular Filt Rate 39; Glucose 128 mg/dL (65-110); Sodium 136 mmol/L (137-145)
[2023-12-06 11:09] LABS: Appearance Urine Turbid (Clear); Bilirubin Urine Negative (Negative); Blood Urine 3+ (Negative); Color Urine Orange (Yellow); Glucose Urine UA 2+ mg/dL (Negative); Ketones Urine Negative (Negative); Leukocyte Esterase Ur 2+ LEU/UL (Negative); Nitrate Urine Negative (Negative); Protein Urine 2+ mg/dL (Negative); Specific Grav Ur 1.015 (1.001-1.035); pH Urine 5.5 (5.0-9.0)
[2023-12-06 11:10] LABS: Add Urine Microscopic? YES
[2023-12-06 11:15] LABS: Bacteria Urine None Seen /hpf; Need Manual Microscopic Reviewed; Non Pathogenic Casts 0-2; RBC Urine >100 /hpf (0-2); Squamous Epithelial Cell Urine None seen /hpf (Few); WBC Urine >100 /hpf
== END 2023-12-06 10:19 | disposition home or self-care (01) ==
LOC: ANHLAB 10:21
PROVIDERS: PCP Internal Medicine; Visit Provider Internal Medicine
DX: R35.0 Frequency of micturition (principal); R39.89 Other symptoms and signs involving the genitourinary system
CPT/HCPCS: 36415; 80048; 81001; 85025; 87077; 87086; 87088; 87186

== ENCOUNTER 2023-12-06 12:33 | Inpatient (IN) | payer MEDICARE, SELFPAY ==
[2023-12-06] VITALS (7 sets, daily range): BP systolic 90–178; BP diastolic 50–78; PULSE 68–70; RESP 16–20; TEMP 36.2–36.8; O2SAT 97–100
--- NOTE | ~2023-12-06 | XR_ITS ---
EXAMINATION: XR chest 2V Exam Date/Time: 12/06/2023 17:30 [employer]OTH FINISHING RANGE TENDER HISTORY: weakness, COUGH Comparison: 09/15/2023. RESULT: Lines, tubes, and devices: Left chest pacer with intact leads, in good position. Stable fractured st ernotomy wire, the remaining wires are intact. Lungs and pleura: Clear. Cardiomediastinal silhouette: Stable. Other: No acute osseous or upper abdominal finding. IMPRESSION: No acute cardiopulmonary process. Reviewed, dictated and finalized at location K. H FINISHING RANGE TENDER
--- NOTE | 2023-12-06 17:32 | ECG_ITS ---
Measurements Intervals [place] Rate: 70 P: GA: 0 QRS: 106 QRSD: 200 T: -70 QT: 485 QTc: 524 Interpretive Statements ELECTRONIC VENTRICULAR PACEMAKER UNDERLYING ATRIAL FLUTTER/TACHYCARDIA BASELINE ARTIFACT- I, II, III, AVR, AVL NO FURTHER INTERPRETATION IS POSSIBLE ABNORMAL ECG COMPARED TO ECG 09/10/2021 15:39:17 UNDERLYING ATRIAL FLUTTER/TACHYCARDIA NOW PRESENT Electronically Signed On 12-06-2023 19:44:37 ART PROFESSOR by John Pierce D.O.
[2023-12-06] MEDS: SODIUM CHLORIDE 0.9% IV 1,000 ML 999 ML IV CONT ×2 (17:54→19:33)
[2023-12-06 18:54] LABS: Basophils Percent Auto 0.2 % (0.2-1.2); Eosinophils Absolute Auto 0.1 K/mm3 (0-0.3); Eosinophils Percent Auto 1.1 % (0-4.4); Hematocrit 44.4 % (42.0-52.0); Hemoglobin 13.8 g/dL (14.0-18.0); Immature Granulocyte Percent A 0.8 % (0-0.5); Lymphocytes Absolute Auto 1.36 K/mm3 (0.9-3.2); Lymphocytes Percent Auto 11.3 % (18.3-44.2); Mean Corpuscular HGB Conc 31.1 g/dl (32-36); Mean Corpuscular Hemoglobin 30.5 pg (26-34); Mean Platelet Volume 10.7 fl (7.4-10.4); Monocytes Absolute Auto 0.9 K/mm3 (0.1-0.6); Monocytes Percent Auto 7.4 % (2.6-8.5); Neutrophils Absolute Auto 9.6 K/mm3 (1.3-6.7); Neutrophils Percent Auto 79.2 % (45.5-73.1); Platelet Count Result 366 k/mm3 (150-375); Red Blood Count 4.53 M/mm3 (4.6-6.20); Red Cell Distribution Width 15.6 % (11.5-14.5); White Blood Count 12.1 K/mm3 (4.5-10.0)
--- NOTE | 2023-12-06 19:02 | ED.RECABL ---
HPI - Recheck/Abnormal Lab/Rx General Chief Complaint: Recheck/Abnormal Lab/Rx Stated Complaint: abnormal labs Time Seen by Provider: 12/06/23 17:40 History of Present Illness HPI narrative: Patient is an 83-year-old male presenting with dehydration. States that he has a lot of chronic back pain but it has been worsening over the last week especially in his flanks. He saw his PCP who ordered outpatient labs and told him to come to the ER due to dehydration and a bladder infection. Patient states that he has been urinating less than normal. States that his urine has been very dark lately. Denies dysuria. No abdominal pain, nausea vomiting, diarrhea. No further complaints. Related Data Home Medications Medication Instructions Recorded Confirmed allopurinol 300 mg tablet 150 mg PO DAILY 12/16/20 12/06/23 rivaroxaban 20 mg tablet (Xarelto) 20 mg PO DAILY 06/30/22 12/06/23 aspirin 81 mg tablet 81 mg PO DAILY 08/03/22 12/06/23 cholecalciferol (vitamin D3) 50 50 mcg PO DAILY 05/17/23 12/07/23 mcg (2,000 unit) capsule (Vitamin D3) vitamin B complex 1 cap PO DAILY 05/17/23 12/07/23 atorvastatin 10 mg tablet 10 mg PO DAILY 09/08/23 12/06/23 quercetin 1 tab-cap PO BID 12/06/23 12/07/23 Allergies Allergy/AdvReac Type Severity Reaction Status Date / Time KATLYN Inhibitors AdvReac Intermediate Cough Verified 11/16/23 10:44 Review of Systems Review of Systems: All systems reviewed & are unremarkable except as noted in HPI and below [facility] Past Medical History Medical History (Updated 12/12/23 @ 12:17 by Shari eHnson MD) Abnormal results of kidney function studies Anemia Anxiety Ascending aortic aneurysm Benign prostatic hyperplasia BMI 29.0-29.9,adult BMI 30.0-30.9,adult BMI 31.0-31.9,adult BMI 32.0-32.9,adult BMI 34.0-34.9,adult BMI 35.0-35.9,adult BMI 36.0-36.9,adult Bronchitis Cellulitis Chest congestion CHF exacerbation Cirrhosis of liver Coronary artery disease Status post three-vessel bypass in 2003. Cough Degenerative joint disease of knee Diastolic congestive heart failure Echocardiogram in 05/2019 showed mild LV ventricular enlargement, mild concentric LVH, moderate apical and apical septal hypokinesis, grade 2 diastolic dysfunction, EF 50%, moderately enlarged left atrium, moderate mitral and mild aortic valve regurgitation. DOLAN (dyspnea on exertion) Elevated troponin Erectile dysfunction Esophageal web Status post multiple dilatations over the years. Fall Gastric polyp Gastroesophageal reflux disease Gout Guaiac positive stools Hearing loss History of colon polyps History of pneumonia, recurrent Hospital discharge follow-up Hypoxia Impacted cerumen of both ears Interstitial lung disease Kidney stones Mixed hyperlipidemia Obesity Onychomycosis MACIEJ on CPAP Osteoarthritis Peripheral edema Person under investigation for COVID-19 Personal history of COVID-19 Pleuritic chest pain Pneumonia Pneumonia due to COVID-19 virus Right hip pain Right shoulder pain Ringworm Shingles Skin lesion Skin lesion Systolic CHF UTI (urinary tract infection) Vision changes Wound of right foot Surgical History Surgical History History of arthroplasty of right knee (~12/23/20) History of arthroscopy of right knee History of colonoscopy with polypectomy History of coronary artery bypass graft x 3 (~2003) History of lumbar surgery Lumbar laminectomy at several levels with what sounds like foraminectomy as well. History of open reduction and internal fixation (ORIF) procedure Right lower extremity fracture. History of permanent cardiac pacemaker placement History of tonsillectomy Family History Family History Mother Diabetes mellitus Cerebrovascular accident Father Acute myocardial infarction Hypertension Bladder cancer Other Arthritis Heart disease Social History
[2023-12-06 19:03] LABS: Alanine Aminotransferase 23 U/L (6-50); Albumin Level 3.8 g/dL (3.5-5.1); Alkaline Phosphatase 123 U/L (38-126); Anion Gap 8 mmol/L (8-16); Aspartate Amino Transferase 26 U/L (17-59); Bilirubin,Total 1.5 mg/dL (0.2-1.3); Blood Urea Nitrogen 45 mg/dL (9-20); Carbon Dioxide 27 mmol/L (22-30); Chloride 101 mmol/L (98-107); Estimated CRCL calculation 33 ml/min; Estimated Glomerular Filt Rate 36; Glucose 151 mg/dL (65-110); Sodium 136 mmol/L (137-145)
[2023-12-06] MEDS: cefTRIAXone 2 GM/NS 100 ML 2 GM/100 ML BAG IVPB (19:33)
--- NOTE | 2023-12-06 20:39 | PM.IMHP ---
H&P: HPI History of Present Illness Date/Time: 12/06/23 20:39 Chief Complaint: back pain. Narrative: This is an 83-year-old male with past medical history significant for type diabetes mellitus, hypertension, dyslipidemia, benign prostatic hyperplasia, ascending aortic aneurysm, congestive heart failure, coronary artery disease, obstructive sleep apnea on CPAP. patient presents poor from primary care physician's office he was seen in the ER due to complaints of worsening back pain for the last week or so preliminary lab work showed infection of the urine and patient was sent over to emergency room for further evaluation. Patient denies any fevers, rigors, chills, nausea, vomiting, pain or burning with urination however has been complaining of back pain where his kidneys are has had poor appetite as well. EXAMINATION:? XR chest 2V Exam Date/Time:? 12/06/2023 17:30 BUSINESS ASST HISTORY: weakness, COUGH ? Comparison:? 09/15/2023. RESULT: Lines, tubes, and devices:? Left chest pacer with intact leads, in good position. Stable fractured sternotomy wire, the remaining wires are intact. Lungs and pleura:? Clear. Cardiomediastinal silhouette:? Stable. Other:? No acute osseous or upper abdominal finding. ? IMPRESSION: No acute cardiopulmonary process. Review of Systems Review of Systems: Back pain Constitutional: Constitutional: Denies chills, Denies fever(s), Reports poor appetite and Denies weakness Eyes: Eyes: Denies change in vision ENT: Denies dysphagia, Denies vertigo, Denies dizziness, Denies nasal congestion, Denies nasal discharge and Denies odynophagia Cardiovascular: Cardiovascular: Denies chest pain, Denies radiating jaw, neck or arm pain and Denies palpitations Respiratory: Respiratory: Denies chest congestion, Denies cough, Denies excessive phlegm production and Denies dyspnea Gastrointestinal: Gastrointestinal: Denies abdominal pain, Denies dyspepsia, Denies heartburn, Denies diarrhea, Denies nausea and Denies vomiting Genitourinary: Genitourinary: Denies dysuria and Reports flank pain Musculoskeletal: Musculoskeletal: Reports back pain Integumentary/Breasts: Skin/Breast: Denies rash Neurologic: Denies focal weakness and Denies Sensory deficit (Neuro) Psychiatric: Psychiatric: Reports no additional psychiatric complaints and Reports as per HPI Endocrine: Endocrine: Denies cold intolerance, Denies fatigue, Denies flushing, Denies heat intolerance, Denies polyphagia, Denies polydipsia, Denies polyuria and Denies palpitations Hematologic/Lymphatic: Hematologic/Lymphatic: Reports no additional hematologic/lymphatic complaints and Reports as per HPI Allergic/Immunologic: Allergic/Immunologic: Reports no additional allergic/immunologic complaints and Reports as per HPI [facility] Past Medical History Medical History (Updated 12/07/23 @ 20:38 by Shari Henson MD) Abnormal results of kidney function studies Anemia Anxiety Ascending aortic aneurysm Benign prostatic hyperplasia BMI 29.0-29.9,adult BMI 30.0-30.9,adult BMI 31.0-31.9,adult BMI 32.0-32.9,adult BMI 34.0-34.9,adult BMI 35.0-35.9,adult BMI 36.0-36.9,adult Bronchitis Cellulitis Chest congestion CHF exacerbation Cirrhosis of liver Coronary artery disease Status post three-vessel bypass in 2003. Cough Degenerative joint disease of knee Diastolic congestive heart failure Echocardiogram in 05/2019 showed mild LV ventricular enlargement, mild concentric LVH, moderate apical and apical septal hypokinesis, grade 2 diastolic dysfunction, EF 50%, moderately enlarged left atrium, moderate mitral and mild aortic valve regurgitation. DOLAN (dyspnea on exertion) Elevated troponin Erectile dysfunction Esophageal web Status post multiple dilatations over the years. Fall Gastric polyp Gastroesophageal reflux disease Gout Guaiac positive stools Hearing loss History of colon polyps History of pneumonia, recurrent Hospital discharge follow-up
[2023-12-06] MEDS: MEROPENEM 1 GM/NS 100 ML BAG IVPB (21:35)
[2023-12-06] MEDS: HYDROcodone/acetaminophen (*CRX) 5-325 MG TABLET 1 TAB PO (21:40)
[2023-12-06 22:00] LABS: Lactic Acid Reflex 1.8 mmol/L (0.7-2.0)
--- NOTE | 2023-12-06 23:03 | ADMGEN ---
This patient, Drew Pak, was admitted to [facility] Surg Room 330-01. Patient/family oriented to hospital policies and general routines including ID bracelet, bed and alarms, visiting hours, pain management, procedures, bathroom and other care routines, personal items, smoking policy, room service/diet, and visiting hours. Information on how to activate the Rapid Response Team has been discussed. Patient/Family are encouraged to report perceived risks to care and to ask questions if they do not understand what they are told or what they should do.
[2023-12-07] VITALS (8 sets, daily range): BP systolic 111–167; BP diastolic 63–70; PULSE 67–80; RESP 14–20; TEMP 35.9–36.8; O2SAT 94–100
[2023-12-07 07:21] LABS: Appearance Urine Turbid (Clear); Bacteria Urine None Seen /hpf; Bilirubin Urine Negative (Negative); Blood Urine 3+ (Negative); Color Urine Orange (Yellow); Glucose Urine UA 3+ mg/dL (Negative); Ketones Urine Negative (Negative); Leukocyte Esterase Ur 2+ LEU/UL (Negative); Nitrate Urine Negative (Negative); Non Pathogenic Casts 0-2; Protein Urine 2+ mg/dL (Negative); RBC Urine >100 /hpf (0-2); Specific Grav Ur 1.013 (1.001-1.035); Squamous Epithelial Cell Urine None seen /hpf (Few); WBC Urine >100 /hpf; pH Urine 5.5 (5.0-9.0)
[2023-12-07 07:24] LABS: Add Urine Microscopic? YES
[2023-12-07 08:13] LABS: Need Manual Microscopic Reviewed; WBC Clumps Urine Present /HPF
[2023-12-07] MEDS: carvediloL 12.5 MG TABLET BY MOUTH ×2 (08:41→20:14)
[2023-12-07] MEDS: allopurinoL 150 MG TABLET PO (08:42)
[2023-12-07] MEDS: ATORVASTATIN 10 MG TABLET PO (08:42)
[2023-12-07] MEDS: VITAMIN B COMPLEX CAPSULE 1 CAP PO (08:42)
[2023-12-07] MEDS: CHOLECALCIFEROL 1,000 UNITS TABLET 2000 UNITS PO (08:42)
[2023-12-07] MEDS: TAMSULOSIN HCL 0.4 MG CAPSULE BY MOUTH (08:42)
[2023-12-07] MEDS: LOSARTAN POTASSIUM 100 MG TABLET BY MOUTH (08:42)
[2023-12-07] MEDS: ASPIRIN 81 MG ENTERIC TABLET PO (08:42)
[2023-12-07] MEDS: FOLIC ACID 1 MG TABLET BY MOUTH (08:42)
[2023-12-07] MEDS: MEROPENEM 1 GM/NS 100 ML 1 GM/100 ML BAG IVPB (08:42)
[2023-12-07 09:35] LABS: Hematocrit 41.7 % (42.0-52.0); Hemoglobin 13.1 g/dL (14.0-18.0); Mean Corpuscular HGB Conc 31.4 g/dl (32-36); Mean Corpuscular Hemoglobin 30.8 pg (26-34); Mean Corpuscular Volume 98.1 fl (80-100); Mean Platelet Volume 10.2 fl (7.4-10.4); Platelet Count Result 335 k/mm3 (150-375); Red Blood Count 4.25 M/mm3 (4.6-6.20); Red Cell Distribution Width 15.5 % (11.5-14.5); White Blood Count 12.6 K/mm3 (4.5-10.0)
[2023-12-07 09:48] LABS: Alanine Aminotransferase 21 U/L (6-50); Albumin Level 3.7 g/dL (3.5-5.1); Alkaline Phosphatase 116 U/L (38-126); Anion Gap 10 mmol/L (8-16); Aspartate Amino Transferase 23 U/L (17-59); Bilirubin,Total 1.3 mg/dL (0.2-1.3); Blood Urea Nitrogen 38 mg/dL (9-20); Calcium 8.7 mg/dL (8.4-10.2); Carbon Dioxide 22 mmol/L (22-30); Chloride 103 mmol/L (98-107); Estimated CRCL calculation 37 ml/min; Estimated Glomerular Filt Rate 42; Glucose 169 mg/dL (65-110); Sodium 135 mmol/L (137-145)
[2023-12-07] MEDS: SODIUM CHLORIDE 0.45% 1,000 ML 100 ML IV CONT ×2 (11:02→21:05)
[2023-12-07 12:07] LABS: Creatine Kinase 44 U/L (55-170)
--- NOTE | 2023-12-07 15:46 | P.PNIM_ITS ---
Progress Note: A&P Assessment and Plan (1) UTI (urinary tract infection): Code(s): N39.0 - Urinary tract infection, site not specified Status: Acute (2) VERENA (acute kidney injury): Code(s): N17.9 - Acute kidney failure, unspecified Status: Acute Plan Acute kidney injury * Pre renal secondary to dehydration * Cr improving * Gentle IV hydration. * CPK 44 * Avoid nephrotoxic drugs, continue to hold statin, allopurinol, losartan * Monitor antihypertensive drug therapy. * Avoid NSAIDs. * Routine CMP monitoring GFR. * Monitor electrolytes especially potassium. * Antibiotic doses depending on creatinine clearance. * Pharmacy does medications. UTI * Urine cultures and blood cultures pending * Continue IV hydration. * Monitor CBC, CMP watch for sepsis. * Monitor vital signs. * Meropenem and switch to Rocephin * Monitor for obstructive uropathy and pyelonephritis BPH * stable * monitor urine output * resumed flomax Code status: Full code per patient DVT prophylaxis: Xarelto Stress ulcer prophylaxis: Protonix 40 daily PT/OT notes: PT/OT pending Disposition: Patient continues admission to the medical unit for VERENA with UTI continue to trend renal function and aggressive IV hydration. PT/OT pending due to unsteady gait and decreased mobility. Patient currently lives at home with girlfriend plan will be to return home pending recommendations from PT/OT. Time Spent With Patient Time with patient: 15 - 25 minutes Subjective Date/time seen: 12/07/23 15:46 Interval history: 83-year old male presented to the ER with complainants of dehydration, dark urine, and decreased urine. 12/06: Patient reported to this practitioner that he was recently sick and remained bed ridden for up to 6 days only to get up she is the restroom in limited his oral intake. Patient's creatinine improved with IV hydration wounds since he comes from help improve in UA pending. CPK on minutes repeat 44 today. Leukocytosis 12.6 deescalated ABX therapy to Rocephin daily. PT/OT pending for evaluation patient currently lives with girlfriend decreased mobility due to recent sickness. Patient did report lower back pain which is chronic previous surgical intervention x2. Review of Systems Review of Systems: All systems reviewed & are unremarkable except as noted in HPI and below Exam Narrative: Physical Exam: * GENERAL: Alert and oriented x 3. No acute distress. Well-nourished. * EYES: EOMI. No scleral icterus. PERRLA. * HEENT: Moist mucous membranes. No cervical lymphadenopathy. * LUNGS: Clear to auscultation bilaterally. No accessory muscle use. * CARDIOVASCULAR: Regular rate and rhythm. No murmur. No JVD. S1-S2 * ABDOMEN: Soft, mild tenderness and non-distended. No palpable masses. * EXTREMITIES: No edema. Non-tender, unsteady gait * SKIN: No rashes or lesions. Skin warm, dry. * NEUROLOGIC: No focal neurological deficits. CN II-XII grossly intact * PSYCHIATRIC: Appropriate mood and affect. Good judgement and insight. No visual or auditory hallucinations. No suicidal or homicidal ideation. Objective Data Vital Signs Vital Signs: Vital Signs - 24 hr 12/06/23 17:51 12/06/23 20:24 12/06/23 18:30 Temperature Pulse Rate 70 70 70 Respiratory Rate 17 18 16 Blood Pressure 98/54 L 178/78 H 125/63
--- NOTE | 2023-12-07 15:46 | PM.IMPN ---
Progress Note: A&P Assessment and Plan (1) UTI (urinary tract infection): Code(s): N39.0 - Urinary tract infection, site not specified Status: Acute (2) VERENA (acute kidney injury): Code(s): N17.9 - Acute kidney failure, unspecified Status: Acute Plan Acute kidney injury Pre renal secondary to dehydration Cr improving Gentle IV hydration. CPK 44 Avoid nephrotoxic drugs, continue to hold statin, allopurinol, losartan Monitor antihypertensive drug therapy. Avoid NSAIDs. Routine CMP monitoring GFR. Monitor electrolytes especially potassium. Antibiotic doses depending on creatinine clearance. Pharmacy does medications. UTI Urine cultures and blood cultures pending Continue IV hydration. Monitor CBC, CMP watch for sepsis. Monitor vital signs. Meropenem and switch to Rocephin Monitor for obstructive uropathy and pyelonephritis BPH stable monitor urine output resumed flomax Code status: Full code per patient DVT prophylaxis: Xarelto Stress ulcer prophylaxis: Protonix 40 daily PT/OT notes: PT/OT pending Disposition: Patient continues admission to the medical unit for VERENA with UTI continue to trend renal function and aggressive IV hydration. PT/OT pending due to unsteady gait and decreased mobility. Patient currently lives at home with girlfriend plan will be to return home pending recommendations from PT/OT. Time Spent With Patient Time with patient: 15 - 25 minutes Subjective Date/time seen: 12/07/23 15:46 Interval history: 83-year old male presented to the ER with complainants of dehydration, dark urine, and decreased urine. 12/06: Patient reported to this practitioner that he was recently sick and remained bed ridden for up to 6 days only to get up she is the restroom in limited his oral intake. Patient's creatinine improved with IV hydration wounds since he comes from help improve in UA pending. CPK on minutes repeat 44 today. Leukocytosis 12.6 deescalated ABX therapy to Rocephin daily. PT/OT pending for evaluation patient currently lives with girlfriend decreased mobility due to recent sickness. Patient did report lower back pain which is chronic previous surgical intervention x2. Review of Systems Review of Systems: All systems reviewed & are unremarkable except as noted in HPI and below Exam Narrative: Physical Exam: GENERAL: Alert and oriented x 3. No acute distress. Well-nourished. EYES: EOMI. No scleral icterus. PERRLA. HEENT: Moist mucous membranes. No cervical lymphadenopathy. LUNGS: Clear to auscultation bilaterally. No accessory muscle use. CARDIOVASCULAR: Regular rate and rhythm. No murmur. No JVD. S1-S2 ABDOMEN: Soft, mild tenderness and non-distended. No palpable masses. EXTREMITIES: No edema. Non-tender, unsteady gait SKIN: No rashes or lesions. Skin warm, dry. NEUROLOGIC: No focal neurological deficits. CN II-XII grossly intact PSYCHIATRIC: Appropriate mood and affect. Good judgement and insight. No visual or auditory hallucinations. No suicidal or homicidal ideation. Objective Data Vital Signs Vital Signs: Vital Signs - 24 hr 12/06/23 17:51 12/06/23 20:24 12/06/23 18:30 Temperature Pulse Rate 70 70 70 Respiratory Rate 17 18 16 Blood Pressure 98/54 L 178/78 H 125/63 Pulse Oximetry 100 97 98 Oxygen Delivery Room Air 12/06/23 17:30 12/06/23 22:36 12/06/23 22:45 Temperature 98.2 F Pulse Rate 70 70 Respiratory Rate 18 20 Blood Pressure 90/62 L 150/65 H 112/50 L Pulse Oximetry 99 98 Oxygen Delivery 12/07/23 05:51 12/07/23 08:41 12/07/23 14:00 Temperature 97 F L 96.6 F L Pulse Rate 69 80 67 Respiratory Rate 20 20 Blood Pressure 167/70 H 111/66 Pulse Oximetry 99 94 Oxygen Delivery Intake/Output Intake/Output: Intake & Output 12/04/23 12/05/23 12/06/23 12/07/23 23:59 23:59 23:59 23:59 Intake Total 2200 580 Output T
[2023-12-07] MEDS: RIVAROXABAN 20 MG TABLET PO (17:26)
[2023-12-07] MEDS: PANTOPRAZOLE 40 MG TABLET PO (17:26)
[2023-12-07] MEDS: polyethylene glycoL 3350 17 GM POWD.PACK PO (21:04)
[2023-12-08 06:00] VITALS: BP 110/62; PULSE 63; RESP 16; TEMP 36.6; O2SAT 98
[2023-12-08 06:42] LABS: Hematocrit 41.2 % (42.0-52.0); Hemoglobin 12.6 g/dL (14.0-18.0); Mean Corpuscular HGB Conc 30.6 g/dl (32-36); Mean Corpuscular Hemoglobin 30.2 pg (26-34); Mean Corpuscular Volume 98.8 fl (80-100); Mean Platelet Volume 10.3 fl (7.4-10.4); Platelet Count Result 311 k/mm3 (150-375); Red Blood Count 4.17 M/mm3 (4.6-6.20); Red Cell Distribution Width 15.4 % (11.5-14.5)
[2023-12-08 06:54] LABS: Alanine Aminotransferase 19 U/L (6-50); Albumin Level 3.3 g/dL (3.5-5.1); Alkaline Phosphatase 112 U/L (38-126); Anion Gap 7 mmol/L (8-16); Aspartate Amino Transferase 22 U/L (17-59); Blood Urea Nitrogen 33 mg/dL (9-20); Calcium 8.6 mg/dL (8.4-10.2); Carbon Dioxide 20 mmol/L (22-30); Chloride 109 mmol/L (98-107); Estimated CRCL calculation 40 ml/min; Estimated Glomerular Filt Rate 45; Glucose 114 mg/dL (65-110); Potassium 3.9 mmol/L (3.4-5.0); Sodium 136 mmol/L (137-145)
[2023-12-08 08:35] VITALS: PULSE 68
[2023-12-08] MEDS: ASPIRIN 81 MG ENTERIC TABLET PO (08:35)
[2023-12-08] MEDS: FOLIC ACID 1 MG TABLET BY MOUTH (08:35)
[2023-12-08] MEDS: PANTOPRAZOLE 40 MG TABLET PO (08:35)
[2023-12-08] MEDS: VITAMIN B COMPLEX CAPSULE 1 CAP PO (08:35)
[2023-12-08] MEDS: TAMSULOSIN HCL 0.4 MG CAPSULE BY MOUTH (08:35)
[2023-12-08] MEDS: CHOLECALCIFEROL 1,000 UNITS TABLET 2000 UNITS PO (08:35)
[2023-12-08] MEDS: carvediloL 12.5 MG TABLET BY MOUTH ×2 (08:35→20:01)
--- NOTE | 2023-12-08 08:48 | P.PNIM_ITS ---
Progress Note: A&P Assessment and Plan (1) UTI (urinary tract infection): Code(s): N39.0 - Urinary tract infection, site not specified Status: Acute (2) VERENA (acute kidney injury): Code(s): N17.9 - Acute kidney failure, unspecified Status: Acute Plan Acute kidney injury * Pre renal secondary to dehydration * Cr improving * Gentle IV hydration. * CPK 44 * Avoid nephrotoxic drugs, continue to hold statin, allopurinol, losartan * Monitor antihypertensive drug therapy. * Avoid NSAIDs. * Routine CMP monitoring GFR. * Monitor electrolytes especially potassium. * Antibiotic doses depending on creatinine clearance. * Pharmacy does medications. UTI * Urine cultures gram negative bacilli * BD NGTD * Continue IV hydration. * Monitor CBC, CMP watch for sepsis. * Monitor vital signs. * Meropenem and switch to Rocephin * Monitor for obstructive uropathy and pyelonephritis BPH * stable * monitor urine output * resumed flomax Code status: Full code per patient DVT prophylaxis: Xarelto Stress ulcer prophylaxis: Protonix 40 daily PT/OT notes: PT/OT pending Disposition: Patient continues admission to the medical unit for VERENA with UTI continue to trend renal function and aggressive IV hydration. PT/OT pending due to unsteady gait and decreased mobility. Patient currently lives at home with girlfriend plan will be to return home with home health. Time Spent With Patient Time with patient: 15 - 25 minutes Subjective Date/time seen: 12/08/23 08:48 Interval history: 83-year old male presented to the ER with complainants of dehydration, dark urine, and decreased urine. 12/06: Patient reported to this practitioner that he was recently sick and remained bed ridden for up to 6 days only to get up she is the restroom in limited his oral intake. Patient's creatinine improved with IV hydration wounds since he comes from help improve in UA pending. CPK on minutes repeat 44 today. Leukocytosis 12.6 deescalated ABX therapy to Rocephin daily. PT/OT pending for evaluation patient currently lives with girlfriend decreased mobility due to recent sickness. Patient did report lower back pain which is chronic previous surgical intervention x2. 12/07: Patient renal function improving and UA showing gram negative bacilli. Reports feeling better with good urinary output. Urine is still tea colored but improving. still waiting on sensitivities encouraged oral hydration continue with IV fluids. Review of Systems Review of Systems: All systems reviewed & are unremarkable except as noted in HPI and below Exam Narrative: Physical Exam: * GENERAL: Alert and oriented x 3. No acute distress. Well-nourished. * EYES: EOMI. No scleral icterus. PERRLA. * HEENT: Moist mucous membranes. No cervical lymphadenopathy. * LUNGS: Clear to auscultation bilaterally. No accessory muscle use. * CARDIOVASCULAR: Regular rate and rhythm. No murmur. No JVD. S1-S2 * ABDOMEN: Soft, mild tenderness and non-distended. No palpable masses. * EXTREMITIES: No edema. Non-tender, unsteady gait * SKIN: No rashes or lesions. Skin warm, dry. * NEUROLOGIC: No focal neurological deficits. CN II-XII grossly intact * PSYCHIATRIC: Appropriate mood and affect. Good judgement and insight. No visual or auditory hallucinations. No suicidal or homicidal ideation. Objective Data Vital Signs Vital Signs:
--- NOTE | 2023-12-08 08:48 | PM.IMPN ---
Progress Note: A&P Assessment and Plan (1) UTI (urinary tract infection): Code(s): N39.0 - Urinary tract infection, site not specified Status: Acute (2) VERENA (acute kidney injury): Code(s): N17.9 - Acute kidney failure, unspecified Status: Acute Plan Acute kidney injury Pre renal secondary to dehydration Cr improving Gentle IV hydration. CPK 44 Avoid nephrotoxic drugs, continue to hold statin, allopurinol, losartan Monitor antihypertensive drug therapy. Avoid NSAIDs. Routine CMP monitoring GFR. Monitor electrolytes especially potassium. Antibiotic doses depending on creatinine clearance. Pharmacy does medications. UTI Urine cultures gram negative bacilli BD NGTD Continue IV hydration. Monitor CBC, CMP watch for sepsis. Monitor vital signs. Meropenem and switch to Rocephin Monitor for obstructive uropathy and pyelonephritis BPH stable monitor urine output resumed flomax Code status: Full code per patient DVT prophylaxis: Xarelto Stress ulcer prophylaxis: Protonix 40 daily PT/OT notes: PT/OT pending Disposition: Patient continues admission to the medical unit for VERENA with UTI continue to trend renal function and aggressive IV hydration. PT/OT pending due to unsteady gait and decreased mobility. Patient currently lives at home with girlfriend plan will be to return home with home health. Time Spent With Patient Time with patient: 15 - 25 minutes Subjective Date/time seen: 12/08/23 08:48 Interval history: 83-year old male presented to the ER with complainants of dehydration, dark urine, and decreased urine. 12/06: Patient reported to this practitioner that he was recently sick and remained bed ridden for up to 6 days only to get up she is the restroom in limited his oral intake. Patient's creatinine improved with IV hydration wounds since he comes from help improve in UA pending. CPK on minutes repeat 44 today. Leukocytosis 12.6 deescalated ABX therapy to Rocephin daily. PT/OT pending for evaluation patient currently lives with girlfriend decreased mobility due to recent sickness. Patient did report lower back pain which is chronic previous surgical intervention x2. 12/07: Patient renal function improving and UA showing gram negative bacilli. Reports feeling better with good urinary output. Urine is still tea colored but improving. still waiting on sensitivities encouraged oral hydration continue with IV fluids. Review of Systems Review of Systems: All systems reviewed & are unremarkable except as noted in HPI and below Exam Narrative: Physical Exam: GENERAL: Alert and oriented x 3. No acute distress. Well-nourished. EYES: EOMI. No scleral icterus. PERRLA. HEENT: Moist mucous membranes. No cervical lymphadenopathy. LUNGS: Clear to auscultation bilaterally. No accessory muscle use. CARDIOVASCULAR: Regular rate and rhythm. No murmur. No JVD. S1-S2 ABDOMEN: Soft, mild tenderness and non-distended. No palpable masses. EXTREMITIES: No edema. Non-tender, unsteady gait SKIN: No rashes or lesions. Skin warm, dry. NEUROLOGIC: No focal neurological deficits. CN II-XII grossly intact PSYCHIATRIC: Appropriate mood and affect. Good judgement and insight. No visual or auditory hallucinations. No suicidal or homicidal ideation. Objective Data Vital Signs Vital Signs: Vital Signs - 24 hr 12/07/23 14:00 12/07/23 12:00 12/07/23 16:00 Temperature 96.6 F L Pulse Rate 67 67 67 Respiratory Rate 20 Blood Pressure 111/66 Pulse Oximetry 94 Oxygen Delivery 12/07/23 20:14 12/07/23 20:00 12/07/23 22:00 Temperature 98.3 F Pulse Rate 67 71 Respiratory Rate 14 Blood Pressure 112/63 Pulse Oximetry 100 Oxygen Delivery Room Air 12/08/23 06:00 12/08/23 08:35 Temperature 97.9 F Pulse Rate 63 68 Respiratory Rate 16 Blood Pressure 110/62 Pulse Oximetry 98 Oxygen De
[2023-12-08] MEDS: metOLazone 2.5 MG TABLET BY MOUTH (10:11)
--- NOTE | 2023-12-08 12:43 | PC.NURSE ---
Pt worked with OT. Therapist placed a chair alarm under pt for safety. Pt set off alarm and very upset. Pt yelling multiple strings of profanities and slamming his hand on his bedside table. Two cable assembler and this RN to bedside to explain therapy felt he would be safer with it. Pt upset that he has not had one before. Pt continues cursing. This RN informed him that he could refuse, but he should consider it. He said absolutely not; he is refusing the alarm. Pt encouraged to let us know if he feels weak or dizzy or needs any help. doper operator made aware.
[2023-12-08 14:00] VITALS: BP 135/59; PULSE 70; RESP 18; TEMP 36.9; O2SAT 99
[2023-12-08] MEDS: SODIUM CHLORIDE 0.9% IV 1,000 ML 100 ML IV CONT ×2 (17:33→20:02)
[2023-12-08] MEDS: RIVAROXABAN 20 MG TABLET PO (17:34)
[2023-12-08 20:01] VITALS: PULSE 76
[2023-12-08 20:22] VITALS: BP 137/60; PULSE 70; RESP 20; TEMP 36.6; O2SAT 95
[2023-12-09 03:57] VITALS: BP 140/56; PULSE 70; RESP 20; TEMP 36.7; O2SAT 96
[2023-12-09] MEDS: SODIUM CHLORIDE 0.9% IV 1,000 ML 100 ML IV CONT (06:25)
[2023-12-09 06:26] LABS: Hematocrit 39.9 % (42.0-52.0); Hemoglobin 12.4 g/dL (14.0-18.0); Mean Corpuscular HGB Conc 31.1 g/dl (32-36); Mean Corpuscular Hemoglobin 30.6 pg (26-34); Mean Corpuscular Volume 98.5 fl (80-100); Mean Platelet Volume 10.3 fl (7.4-10.4); Platelet Count Result 298 k/mm3 (150-375); Red Blood Count 4.05 M/mm3 (4.6-6.20); Red Cell Distribution Width 15.6 % (11.5-14.5); White Blood Count 11.9 K/mm3 (4.5-10.0)
[2023-12-09 06:44] LABS: Alanine Aminotransferase 18 U/L (6-50); Albumin Level 3.2 g/dL (3.5-5.1); Alkaline Phosphatase 111 U/L (38-126); Anion Gap 8 mmol/L (8-16); Aspartate Amino Transferase 30 U/L (17-59); Bilirubin,Total 0.7 mg/dL (0.2-1.3); Blood Urea Nitrogen 25 mg/dL (9-20); Calcium 8.5 mg/dL (8.4-10.2); Carbon Dioxide 20 mmol/L (22-30); Chloride 109 mmol/L (98-107); Estimated CRCL calculation 45 ml/min; Estimated Glomerular Filt Rate 53; Glucose 133 mg/dL (65-110); Potassium 3.9 mmol/L (3.4-5.0); Sodium 137 mmol/L (137-145)
[2023-12-09 08:00] VITALS: O2SAT 96
[2023-12-09 08:27] VITALS: PULSE 70
[2023-12-09] MEDS: ASPIRIN 81 MG ENTERIC TABLET PO (08:27)
[2023-12-09] MEDS: carvediloL 12.5 MG TABLET BY MOUTH (08:27)
[2023-12-09] MEDS: VITAMIN B COMPLEX CAPSULE 1 CAP PO (08:28)
[2023-12-09] MEDS: TAMSULOSIN HCL 0.4 MG CAPSULE BY MOUTH (08:28)
[2023-12-09] MEDS: FOLIC ACID 1 MG TABLET BY MOUTH (08:28)
[2023-12-09] MEDS: CHOLECALCIFEROL 1,000 UNITS TABLET 2000 UNITS PO (08:28)
[2023-12-09] MEDS: PANTOPRAZOLE 40 MG TABLET PO (08:28)
--- NOTE | 2023-12-09 09:42 | PCOTNOTE ---
Attempted to see Patient this A.M. Patient stated, he is leaving today, just waiting on the doctor to write the orders, I don't need any therapy services, I'm fine . Patient refused services
--- NOTE | 2023-12-09 13:47 | PM.DS ---
DS: Admitting Diagnosis Discharge Date 12/09/2023 Admitting Diagnosis Acute Kidney Injury/UTI DS: Discharge Diagnosis Discharge Diagnosis (1) UTI (urinary tract infection): Code(s): N39.0 - Urinary tract infection, site not specified Status: Acute (2) VERENA (acute kidney injury): Code(s): N17.9 - Acute kidney failure, unspecified Status: Acute Plan Acute kidney injury Pre renal secondary to dehydration Cr improving Gentle IV hydration. CPK 44 Avoid nephrotoxic drugs, continue to hold statin, allopurinol, losartan Monitor antihypertensive drug therapy. Avoid NSAIDs. Routine CMP monitoring GFR. Monitor electrolytes especially potassium. Antibiotic doses depending on creatinine clearance. Pharmacy does medications. UTI Urine cultures gram negative bacilli BD NGTD Continue IV hydration. Monitor CBC, CMP watch for sepsis. Monitor vital signs. Meropenem and switch to Rocephin Monitor for obstructive uropathy and pyelonephritis BPH stable monitor urine output resumed flomax Disposition: Patient discharged home with family will follow-up with primary care in 1 week for f/u CMP DS: Summary Hospital Course Reason for hospitalization: VERENA/UTI Hospital Course: 83-year old male presented to the ER with complainants of dehydration, dark urine, and decreased urine. Patient had reported feeling unwell for 6 days with limited ambulation, poor oral intake. Patient had went to his primary care and labs were done that showed and VERENA and UTI with tea colored urine. Patient WBC were 13 on admission and Cr elevated from baseline. Patient has a past medical history of BPH, gout, HLD, CHF, and HTN. He was admitted and started on IV fluids and IV abx for UTI.? 36:? Patient reported to this practitioner that he was recently sick and remained bed ridden for up to 6 days only to get up she is the restroom in limited his oral intake.? Patient's creatinine improved with IV hydration wounds since he comes from help improve in UA pending.? CPK on minutes repeat 44 today.? Leukocytosis 12.6 deescalated ABX therapy to Rocephin daily.? PT/OT pending for evaluation patient currently lives with girlfriend decreased mobility due to recent sickness.? Patient did report lower back pain which is chronic previous surgical intervention x2. 3: Patient renal function improving and UA showing gram negative bacilli. Reports feeling better with good urinary output.? Urine is still tea colored but improving. still waiting on sensitivities encouraged oral hydration continue with IV fluids. 12/08: Patient doing well requesting to go home. Cr back to baseline and WNL. Patient remained afebrile and improved wbc. Patient was discharged to home on oral ABX therapy for UTI and has scheduled a follow-up appointment with his PCP for follow-up CMP/renal. Patient with no urinary complaints at discharge. Status at Discharge Functional status at discharge: independent ambulation Overall status at discharge: patient is back to baseline Time Spent with Patient Time attestation: Total time spent providing and/or coordinating discharge services: Time spent: Less than 30 minutes Exam Narrative: Physical Exam: GENERAL: Alert and oriented x 3. No acute distress. Well-nourished. EYES: EOMI. No scleral icterus. PERRLA. HEENT: Moist mucous membranes. No cervical lymphadenopathy. LUNGS: Clear to auscultation bilaterally. No accessory muscle use. CARDIOVASCULAR: Regular rate and rhythm. No murmur. No JVD. S1-S2 ABDOMEN: Soft, mild tenderness and non-distended. No palpable masses. EXTREMITIES: No edema. Non-tender, unsteady gait SKIN: No rashes or lesions. Skin warm, dry. NEUROLOGIC: No focal neurological deficits. CN II-XII grossly intact PSYCHIATRIC: Appropriate mood and affect. Good judgement and insight. No visual or auditory hallucinations. No suicidal or homicidal id
== END 2023-12-09 14:06 | disposition home or self-care (01) | DRG 683 ==
LOC: ANHED 18:59 → ANH3MEDSUR 22:37
PROVIDERS: Nurse Practitioner Family; Admitting Provider Internal Medicine; Emergency Provider Emergency Medicine; PCP Internal Medicine; Visit Provider Internal Medicine
DX: N17.9 Acute kidney failure, unspecified (principal); I50.32 Chronic diastolic (congestive) heart failure; N39.0 Urinary tract infection, site not specified; J84.9 Interstitial pulmonary disease, unspecified; I25.10 Atherosclerotic heart disease of native coronary artery without angina pectoris; E86.0 Dehydration; D64.9 Anemia, unspecified; K74.60 Unspecified cirrhosis of liver; K22.2 Esophageal obstruction; K21.9 Gastro-esophageal reflux disease without esophagitis; E78.2 Mixed hyperlipidemia; M17.9 Osteoarthritis of knee, unspecified; N40.0 Benign prostatic hyperplasia without lower urinary tract symptoms; M54.9 Dorsalgia, unspecified; G89.29 Other chronic pain; F41.9 Anxiety disorder, unspecified; Z79.01 Long term (current) use of anticoagulants; Z79.82 Long term (current) use of aspirin; Z87.442 Personal history of urinary calculi; Z95.1 Presence of aortocoronary bypass graft; Z86.010 Personal history of colon polyps; Z95.0 Presence of cardiac pacemaker; Z87.891 Personal history of nicotine dependence
CPT/HCPCS: 36415; 71046; 80048; 80053; 81001; 82550; 83605; 85025; 85027; 87040; 87086; 87186; 93005; 96361; 96365; 97161; 97165; 99285; A9270; J0696; J2185; J7030

== ENCOUNTER 2023-12-13 10:39 | Outpatient (CLI) | payer MEDICARE, SELFPAY ==
[2023-12-13 11:44] LABS: Anion Gap 5 mmol/L (8-16); Blood Urea Nitrogen 20 mg/dL (9-20); Calcium 9.1 mg/dL (8.4-10.2); Carbon Dioxide 27 mmol/L (22-30); Chloride 106 mmol/L (98-107); Estimated Glomerular Filt Rate 53; Glucose 165 mg/dL (65-110); Potassium 4.4 mmol/L (3.4-5.0); Sodium 138 mmol/L (137-145)
== END 2023-12-13 10:40 | disposition home or self-care (01) ==
LOC: ANHLAB 10:41
PROVIDERS: PCP Internal Medicine; Visit Provider Internal Medicine
DX: N17.9 Acute kidney failure, unspecified (principal)
CPT/HCPCS: 36415; 80048

== ENCOUNTER 2024-01-16 10:08 | Outpatient (CLI) | payer MEDICARE, SELFPAY ==
[2024-01-16 11:16] LABS: Alanine Aminotransferase 19 U/L (6-50); Alkaline Phosphatase 96 U/L (38-126); Anion Gap 7 mmol/L (4-12); Aspartate Amino Transferase 24 U/L (17-59); Bilirubin,Total 1.5 mg/dL (0.2-1.3); Blood Urea Nitrogen 21 mg/dL (9-20); Calcium 8.8 mg/dL (8.4-10.2); Carbon Dioxide 27 mmol/L (22-30); Chloride 106 mmol/L (98-107); Cholesterol 102 mg/dL (0-200); Estimated Glomerular Filt Rate 42; Glucose 141 mg/dL (65-110); HDL Direct 47 mg/dL; Potassium 4.3 mmol/L (3.4-5.0); Sodium 140 mmol/L (137-145); Triglycerides 71 mg/dL (<150)
[2024-01-16 11:30] LABS: LDL Cholesterol Direct 53 mg/dL
[2024-01-16 11:35] LABS: Free T4 Free Thyroxine 1.29 ng/mL (0.78-2.19)
[2024-01-16 12:12] LABS: Hemoglobin A1C 6.1 % (<5.7)
== END 2024-01-16 10:09 | disposition home or self-care (01) ==
PROVIDERS: PCP Internal Medicine; Visit Provider Internal Medicine
DX: E11.9 Type 2 diabetes mellitus without complications (principal); E78.2 Mixed hyperlipidemia; Z13.29 Encounter for screening for other suspected endocrine disorder; Z79.899 Other long term (current) drug therapy; I10 Essential (primary) hypertension
CPT/HCPCS: 36415; 80053; 80061; 83036; 84439; 84443

== ENCOUNTER 2024-01-25 10:48 | Outpatient (CLI) | payer MEDICARE, SELFPAY ==
[2024-01-25 11:32] LABS: Anion Gap 6 mmol/L (4-12); Blood Urea Nitrogen 33 mg/dL (9-20); Calcium 8.8 mg/dL (8.4-10.2); Carbon Dioxide 25 mmol/L (22-30); Chloride 106 mmol/L (98-107); Estimated Glomerular Filt Rate 39; Glucose 114 mg/dL (65-110); Potassium 4.6 mmol/L (3.4-5.0); Sodium 137 mmol/L (137-145)
== END 2024-01-25 10:49 | disposition home or self-care (01) ==
LOC: ANHLAB 10:53
PROVIDERS: PCP Internal Medicine; Visit Provider Internal Medicine
DX: N18.9 Chronic kidney disease, unspecified (principal)
CPT/HCPCS: 36415; 80048

== ENCOUNTER 2024-01-30 11:51 | Outpatient (CLI) | payer MEDICARE, SELFPAY ==
--- NOTE | ~2024-01-30 | XR_ITS ---
XR chest 2V 01/30/2024 12:11 Indication: Cough Procedure: 2 view chest Comparison: Comparison to multiple prior studies sequentially, with oldest reviewed study dated 09/03. Findings: Cardiomegaly. Status post median sternotomy for CABG. Pacemaker leads are stable. Pulmonary vascular congestion. No focal air space disease, pulmonary edema, pleural effusion or suspected pneu mothorax. Impression: 1: No acute cardiopulmonary disease. Reviewed, dictated and finalized at location B. Impression: 1: No acute cardiopulmonary disease.
== END 2024-01-30 11:52 | disposition home or self-care (01) ==
PROVIDERS: PCP Internal Medicine; Visit Provider Internal Medicine
DX: R05.9 Cough, unspecified (principal)
CPT/HCPCS: 71046

== ENCOUNTER 2024-02-23 10:16 | Outpatient (CLI) | payer MEDICARE, SELFPAY ==
--- NOTE | ~2024-02-23 | XR_ITS ---
XR ankle RT min 3V DATE: 02/23/2024 10:53 INDICATION: A spot is leaking at the anterior mid calf TECHNIQUE: 4 views COMPARISON: 03/31/2021 right ankle FINDINGS: Again noted is a long L-shaped plate with multiple through screws and transverse distal tib ial epiphyseal screw and anteroposteriorly directed screw through the talar dome into the posterior d istal tibia. There is some increased bony sclerosis the distal tibia and the talus since 03/31/2021. There is chron ic organized smooth callus formation along the distal tibia, present on 03/31/2021. No interval new pe riosteal reaction or bone destruction is evident. There is a history of a 'leaking spot' at the anterior mid calf. No apparent new periosteal reaction or bone destruction is identified in the mid calf area at the tibia or fibula. If there is any concer n for osteomyelitis, consider 3 phase radionuclide bone scan. Arterial calcifications are noted. Plantar calcaneal enthesopathy. IMPRESSION: Postoperative changes of the tibia and tibiotalar area, relatively stable since 03/31/2021 . If there is concern for osteomyelitis given the presenting clinical history of a possible draining si nus, consider 3 phase radionuclide bone scan Reviewed, dictated and finalized at location B. IMPRESSION: Postoperative changes of the tibia and tibiotalar area, relatively stable since 03/31/2021. If there is concern for osteomyelitis given the presenting clinical history of a possible draining sinus, consider 3 phase radionuclide bone scan
[2024-02-23 11:30] LABS: Basophils Percent Auto 0.4 % (0.2-1.2); Eosinophils Absolute Auto 0.2 K/mm3 (0-0.3); Hematocrit 40.5 % (42.0-52.0); Hemoglobin 12.2 g/dL (14.0-18.0); Immature Granulocyte Absolute 0.02 K/mm3 (0.00-0.031); Immature Granulocyte Percent A 0.3 % (0-0.5); Lymphocytes Absolute Auto 1.28 K/mm3 (0.9-3.2); Lymphocytes Percent Auto 17.6 % (18.3-44.2); Mean Corpuscular HGB Conc 30.1 g/dl (32-36); Mean Corpuscular Hemoglobin 30.1 pg (26-34); Mean Platelet Volume 10.9 fl (7.4-10.4); Monocytes Absolute Auto 0.6 K/mm3 (0.1-0.6); Monocytes Percent Auto 8.1 % (2.6-8.5); Neutrophils Absolute Auto 5.1 K/mm3 (1.3-6.7); Neutrophils Percent Auto 70.6 % (45.5-73.1); Platelet Count Result 228 k/mm3 (150-375); Red Blood Count 4.05 M/mm3 (4.6-6.20); Red Cell Distribution Width 16.9 % (11.5-14.5); White Blood Count 7.3 K/mm3 (4.5-10.0)
== END 2024-02-23 10:17 | disposition home or self-care (01) ==
PROVIDERS: PCP Internal Medicine; Visit Provider Internal Medicine
DX: B99.9 Unspecified infectious disease (principal)
CPT/HCPCS: 36415; 73610; 85025

== ENCOUNTER 2024-03-13 07:33 | Outpatient (RCR) | payer MEDICARE, SELFPAY ==
[2024-03-05 09:45] VITALS: BMI 32.5
== END 2024-05-21 12:07 | disposition home or self-care (01) ==
LOC: ANHWOC 07:33
PROVIDERS: PCP Internal Medicine; Visit Provider Internal Medicine
DX: I83.009 Varicose veins of unspecified lower extremity with ulcer of unspecified site (principal); L97.909 Non-pressure chronic ulcer of unspecified part of unspecified lower leg with unspecified severity
CPT/HCPCS: 99212; 99213; G0463

== ENCOUNTER 2024-03-21 09:04 | Outpatient (CLI) | payer MEDICARE, SELFPAY ==
[2024-03-21 09:43] LABS: Anion Gap 7 mmol/L (4-12); Blood Urea Nitrogen 36 mg/dL (9-20); Calcium 9.1 mg/dL (8.4-10.2); Carbon Dioxide 27 mmol/L (22-30); Chloride 108 mmol/L (98-107); Estimated Glomerular Filt Rate 32; Glucose 128 mg/dL (65-110); Potassium 5.3 mmol/L (3.4-5.0); Sodium 142 mmol/L (137-145)
[2024-03-21 09:53] LABS: NT Pro B Type Natriuretic Pept 1860 pg/mL (19.9-100)
== END 2024-03-21 09:05 | disposition home or self-care (01) ==
PROVIDERS: PCP Internal Medicine; Referring Provider Internal Medicine
DX: I50.41 Acute combined systolic (congestive) and diastolic (congestive) heart failure (principal)
CPT/HCPCS: 36415; 80048; 83880

== ENCOUNTER 2024-05-16 09:34 | Outpatient (CLI) | payer MEDICARE, SELFPAY ==
[2024-05-16 10:04] LABS: Basophils Percent Auto 0.6 % (0.2-1.2); Eosinophils Absolute Auto 0.3 K/mm3 (0-0.3); Eosinophils Percent Auto 4.2 % (0-4.4); Hematocrit 41.1 % (42.0-52.0); Hemoglobin 12.9 g/dL (14.0-18.0); Immature Granulocyte Absolute 0.02 K/mm3 (0.00-0.031); Immature Granulocyte Percent A 0.3 % (0-0.5); Lymphocytes Percent Auto 18.2 % (18.3-44.2); Mean Corpuscular HGB Conc 31.4 g/dl (32-36); Mean Corpuscular Hemoglobin 29.5 pg (26-34); Mean Corpuscular Volume 94.1 fl (80-100); Mean Platelet Volume 10.7 fl (7.4-10.4); Monocytes Absolute Auto 0.5 K/mm3 (0.1-0.6); Neutrophils Absolute Auto 4.5 K/mm3 (1.3-6.7); Neutrophils Percent Auto 68.7 % (45.5-73.1); Platelet Count Result 241 k/mm3 (150-375); Red Blood Count 4.37 M/mm3 (4.6-6.20); Red Cell Distribution Width 18.6 % (11.5-14.5); White Blood Count 6.6 K/mm3 (4.5-10.0)
[2024-05-16 10:19] LABS: Hemoglobin A1C 6.4 % (<5.7)
[2024-05-16 10:21] LABS: Alanine Aminotransferase 20 U/L (6-50); Albumin Level 4.2 g/dL (3.5-5.1); Alkaline Phosphatase 102 U/L (38-126); Anion Gap 10 mmol/L (4-12); Aspartate Amino Transferase 28 U/L (17-59); Bilirubin,Total 0.9 mg/dL (0.2-1.3); Blood Urea Nitrogen 41 mg/dL (9-20); Calcium 8.9 mg/dL (8.4-10.2); Carbon Dioxide 22 mmol/L (22-30); Chloride 106 mmol/L (98-107); Cholesterol 107 mg/dL (0-200); Estimated Glomerular Filt Rate 36; Glucose 148 mg/dL (65-110); HDL Direct 53 mg/dL; Potassium 4.7 mmol/L (3.4-5.0); Sodium 138 mmol/L (137-145); Triglycerides 65 mg/dL (<150); Uric Acid 5.6 mg/dL (3.5-8.5)
[2024-05-16 10:32] LABS: LDL Cholesterol Direct 43 mg/dL
[2024-05-16 10:58] LABS: Free T4 Free Thyroxine 1.03 ng/mL (0.78-2.19)
[2024-05-16 11:33] LABS: Folic Acid > 20.0 ng/mL (2.76->20)
== END 2024-05-16 09:35 | disposition home or self-care (01) ==
LOC: ANHLAB 09:37
PROVIDERS: PCP Internal Medicine; Visit Provider Internal Medicine
DX: Z13.29 Encounter for screening for other suspected endocrine disorder (principal); Z79.899 Other long term (current) drug therapy; E11.9 Type 2 diabetes mellitus without complications; M10.9 Gout, unspecified; E78.2 Mixed hyperlipidemia; I10 Essential (primary) hypertension; E53.8 Deficiency of other specified B group vitamins
CPT/HCPCS: 36415; 80053; 80061; 82607; 82746; 83036; 84439; 84443; 84550; 85025

== ENCOUNTER 2024-09-17 07:35 | Outpatient (CLI) | payer MEDICARE, SELFPAY ==
[2024-09-17 08:41] LABS: Add Urine Microscopic? YES; Appearance Urine Clear (Clear); Bacteria Urine None Seen /hpf; Bilirubin Urine Negative (Negative); Blood Urine Negative (Negative); Color Urine Yellow (Yellow); Glucose Urine UA 2+ mg/dL (Negative); Ketones Urine Negative (Negative); Leukocyte Esterase Ur 2+ LEU/UL (Negative); Nitrate Urine Negative (Negative); Non Pathogenic Casts 0-2; Protein Urine Negative (Negative); RBC Urine 0-2 /hpf (0-2); Specific Grav Ur 1.015 (1.001-1.035); Squamous Epithelial Cell Urine None Seen /hpf (Few); Urobilinogen Urine 0.2 mg/dL (<2.0); WBC Urine >100 /hpf (0-3); pH Urine 5.5 (5.0-9.0)
[2024-09-17 08:45] LABS: Basophils Percent Auto 0.4 % (0.2-1.2); Eosinophils Absolute Auto 0.4 K/mm3 (0-0.3); Hematocrit 42.5 % (42.0-52.0); Hemoglobin 12.9 g/dL (14.0-18.0); Immature Granulocyte Absolute 0.03 K/mm3 (0.00-0.031); Immature Granulocyte Percent A 0.4 % (0-0.5); Lymphocytes Percent Auto 21.1 % (18.3-44.2); Mean Corpuscular HGB Conc 30.4 g/dl (32-36); Mean Corpuscular Hemoglobin 29.4 pg (26-34); Mean Corpuscular Volume 96.8 fl (80-100); Mean Platelet Volume 11.2 fl (7.4-10.4); Monocytes Absolute Auto 0.6 K/mm3 (0.1-0.6); Monocytes Percent Auto 8.4 % (2.6-8.5); Neutrophils Absolute Auto 4.9 K/mm3 (1.3-6.7); Neutrophils Percent Auto 64.7 % (45.5-73.1); Platelet Count Result 218 k/mm3 (150-375); Red Blood Count 4.39 M/mm3 (4.6-6.20); Red Cell Distribution Width 16.2 % (11.5-14.5); White Blood Count 7.6 K/mm3 (4.5-10.0)
[2024-09-17 08:53] LABS: Alanine Aminotransferase 25 U/L (6-50); Albumin Level 4.2 g/dL (3.5-5.1); Alkaline Phosphatase 101 U/L (38-126); Anion Gap 7 mmol/L (4-12); Aspartate Amino Transferase 31 U/L (17-59); Bilirubin,Total 0.7 mg/dL (0.2-1.3); Blood Urea Nitrogen 36 mg/dL (9-20); Calcium 9.3 mg/dL (8.4-10.2); Carbon Dioxide 25 mmol/L (22-30); Chloride 109 mmol/L (98-107); Cholesterol 136 mg/dL (0-200); Estimated Glomerular Filt Rate 39; Glucose 117 mg/dL (65-110); HDL Direct 65 mg/dL; Sodium 141 mmol/L (137-145); Triglycerides 99 mg/dL (<150)
[2024-09-17 09:03] LABS: LDL Cholesterol Direct 54 mg/dL
[2024-09-17 09:37] LABS: Free T4 Free Thyroxine 0.92 ng/dL (0.78-2.19)
[2024-09-17 10:45] LABS: Hemoglobin A1C 6.3 % (<5.7)
[2024-09-17 10:56] LABS: Creatinine Urine 63.7 mg/dL
[2024-09-17 10:57] LABS: MALB Creatinine Ratio 42.4 mg/g (0-30)
[2024-09-17 14:49] LABS: Iron 45 ug/dL (49-181)
[2024-09-17 14:56] LABS: Percent Iron Saturation 9 % (20-50)
[2024-09-17 15:52] LABS: Folic Acid > 20.0 ng/mL (2.76->20)
--- OUTSIDE RECORDS SUMMARY | 2024-09-22 18:58 | XMS_ITS | Continuity of Care Document ---
Author Organization [facility] Address [address] [place], [place] [id number] Care Team Providers Care Manager Data Warehouse Name Role Phone Say Low Primary Care Physician Arslan Strickland [facility] Encounter [facility] Financial Number [id number] Date(s): 05/25/21 - 05/25/[address] [id number] Discharge Disposition: Home or Self Care Attending Physician: Gonzalo Boo D.O. Referring Physician: Arslan Strickland M.D. Allergies, Adverse Reactions, Alerts No Known Allergies Assessment and Plan Future Appointments Appointment Date:06/01/2021 08:00:00 AM Scheduled Provider:Gonzalo Boo D.O. Location:[facility] Appointment Type:PPC RF Radiofrequeny Medications allopurinol 300 mg oral tablet 150 mg, 0.5 tablet(s), Oral, daily, 30 tablet(s), Tablet(s), 0 Start Date: 07/11/20 Status: Ordered amLODIPine 5 mg oral tablet 5 mg, 1 tablet(s), Oral, qam, 30 tablet(s), Tablet(s), 0 Start Date: 03/07/19 Status: Ordered aspirin 81 mg oral enteric coated tablet 81 mg, 1 tablet(s), Oral, daily, Tab EC, 0 Start Date: 07/02/20 Status: Ordered carvedilol 25 mg oral tablet 25 mg, 1 tablet(s), Oral, [id number], 60 tablet(s), Tablet(s), 0, Take with snack/food Start Date: 04/14/21 Status: Ordered Centrum Silver 1 tablet(s), Oral, qam, 30 tablet(s), Tablet(s), 0 Start Date: 03/07/19 Status: Ordered Fish Oil 1600 mg/5 mL oral liquid 3,200 mg, 10 mL, Oral, bid, 0 Start Date: 07/11/20 Status: Ordered furosemide 20 mg oral tablet 20 mg, 1 tablet(s), Oral, daily, Tablet(s), 0 Start Date: 07/11/20 Status: Ordered losartan 100 mg oral tablet 100 mg, 1 tablet(s), Oral, daily, 30 tablet(s), Tablet(s), 0 Start Date: 03/07/19 Status: Ordered omeprazole 40 mg oral delayed release capsule 40 mg, 1 capsule(s), Oral, daily before breakfast, 30 capsule(s), Capsule(s), 0 Start Date: 07/11/20 Status: Ordered potassium citrate 1,080 mg, Oral, bid, 0 Start Date: 03/07/19 Status: Ordered simvastatin 20 mg oral tablet 20 mgo, Oral, qpm, 0 Start Date: 03/07/19 Status: Ordered Synjardy XR 10 mg-1000 mg oral tablet, extended release 1 tablet(s), Oral, qam, 0 Start Date: 03/07/19 Status: Ordered tamsulosin 0.4 mg oral capsule 0.4 mg, 1 capsule(s), Oral, pm after dinner, 30 capsule(s), Capsule(s), 0 Start Date: 03/07/19 Status: Ordered Trelegy Ellipta 1 puff(s), Inhalation, daily, 1 inhaler, Inhaler, 0 Start Date: 07/11/20 Status: Ordered Vitamin D3 5000 intl units oral capsule 5,000 mg, Oral, daily, 0 Start Date: 03/07/19 Status: Ordered Problem List Condition Effective Dates Status Health Status Inform ant Acid reflux(Confirmed) Active Diabetes type 2 on insulin(Confirmed) Active Gouty arthritis(Confirmed) Active Heart disease(Confirmed) Active Hyperlipidemia(Confirmed) Active Hypertension(Confirmed) Active Lumbar spondylosis(Confirmed) Active 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 Strickland) 05/25/19 Co mpleted Left kidney stone removed ([facility]) 01/15/19 Completed Pacemaker ([facility]) 07/04/17 Complet ed Right tib/fib fracture s/p fall 06/27/11 Completed CABG x 3 vessels ([facility]) 10/18/03 Completed Endoscopic esophageal dilata tion using fluoroscopic guidance 1 Complete d [place] ([place]-[facility]. Horner) Completed 1multiple Social History Social History Type Response Alcohol Former alcohol user, quit 2013 Substance Abuse Never drug user Smoking Status Former smoker;Never; Tobacco Cessation Counseling Requested N/A 1 entered on: 05/06/21 Sex 1quit in 1983
--- OUTSIDE RECORDS SUMMARY | 2024-09-22 18:58 | XMS_ITS | Continuity of Care Document ---
Author Organization [facility] Address [address] [phone] Care Team Providers Care Fashion Photographer Name Role Phone Say Low Primary Care Physician Arslan Strickland Encounter [facility] Financial Number [id number] Date(s): 01/19/23 - 01/19/23 [facility] [address] [phone] Discharge Disposition: Home or Self Care Attending Physician: Brooke Willett Allergies, Adverse Reactions, Alerts No Known Allergies Medications allopurinol 300 mg oral tablet 150 mg, 0.5 tablet(s), Oral, daily, 30 tablet(s), Tablet(s), 0 Start Date: 07/11/20 Status: Ordered aspirin 81 mg oral enteric coated tablet 81 mg, 1 tablet(s), Oral, daily, Tab EC, 0 Start Date: 07/02/20 Status: Ordered carvedilol 25 mg oral tablet 25 mg, 1 tablet(s), Oral, [id number], 60 tablet(s), Tablet(s), 0, Take with snack/food Start Date: 04/14/21 Status: Ordered Centrum Silver 1 tablet(s), Oral, qam, 30 tablet(s), Tablet(s), 0 Start Date: 03/07/19 Status: Ordered Fish Oil 1600 mg/5 mL oral liquid 3,200 mg, 10 mL, Oral, bid, 0 Start Date: 07/11/20 Status: Ordered folic acid 1 mg oral tablet 1 mg, 1 tablet(s), Oral, daily, 30 tablet(s), Tablet(s), 0 Start Date: 06/29/21 Status: Ordered furosemide 20 mg oral tablet 40 mg, 2 tablet(s), Oral, daily, Tablet(s), 0 Start Date: 07/11/20 Status: Ordered losartan 100 mg oral tablet 100 mg, 1 tablet(s), Oral, daily, 30 tablet(s), Tablet(s), 0 Start Date: 03/07/19 Status: Ordered omeprazole 40 mg oral delayed release capsule 40 mg, 1 capsule(s), Oral, daily before breakfast, 30 capsule(s), Capsule(s), 0 Start Date: 07/11/20 Status: Ordered Plavix 75 mg oral tablet 75 mg, 1 tablet(s), Oral, daily, 30 tablet(s), Tablet(s), 0 Start Date: 06/29/21 Status: Ordered potassium citrate 1,080 mg, Oral, [...] Inhaler, 0 Start Date: 07/11/20 Status: Ordered Trelegy Ellipta SAMPLE 100 mcg-62.5 mcg-25 mcg/inh Inhaler 1 puff(s), Inhalation, daily, Medication Sample Given, 1, inhaler Start Date: 06/29/21 Status: Ordered Vitamin B-12 100 mcg oral tablet 100 mcg, 1 tablet(s), Oral, daily, 30 tablet(s), Tablet(s), 0 Start Date: 06/29/21 Status: Ordered Vitamin C 1000 mg oral tablet 1,000 mg, 1 tablet(s), Oral, daily, 30 tablet(s), Tablet(s), 0 Start Date: 06/29/21 Status: Ordered Vitamin D3 5000 intl units oral capsule 5,000 mg, Oral, daily, 0 Start Date: 03/07/19 Status: Ordered Xarelto 20 mg oral tablet 20 mg, 1 tablet(s), Oral, pm with dinner, 30 tablet(s), 0, Take with Food Start Date: 06/01/21 Status: Ordered Problem List Condition Confirmation Course Effective Dates Status H ealth Status Informant Acid reflux Confirmed Active Diabetes type 2 on insulin Confirmed Active Gouty arthritis Confirmed Active Heart disease Confirmed Active Hyperlipidemia Confirmed Active Hypertension Confirmed Active Lumbar spondylosis Confirmed Active Lumbar stenosis with neurogenic claudication Confirmed Active Procedures Procedure Date Related Diagnosis Body Site Status Insertion of carotid artery stent 07/12/21 Completed Myelogram 05/2020 Completed L1-L5 DLL (Dr. Strickland) 05/25/19 Co mpleted Left kidney stone removed ([place]) 01/15/19 Completed Pacemaker (MOBAP) 07/04/17 Complet ed Right tib/fib fracture s/p fall 06/27/11 Completed CABG x 3 vessels ([facility]) 10/18/03 Completed Endoscopic esophageal dilata tion using fluoroscopic guidance 1 Complete d Lasik ([place]-Dr. Horner) Completed 1multiple Vital Signs Most recent to oldest [Reference Range]: 1 Peripheral Pulse Rate [60-100 bpm] 79 bp m (01/19/23 1:07 PM) Blood Pressure [89-139/60-90 mm Hg] 125/ 60mm Hg (01/19/23 1:07 PM) Height 178 cm (01/19/23 1:07 PM) Weight 104 kg (01/19/23 1:07 PM) Social History Social History Type Response Alcohol Former alcohol user, quit 2013 Substance Abuse Never drug user Smoking Status Former smoker;Never; Tobacco Cessation Counseling Requested N/A 1 entered on: 05/14/22 Sex 1quit in 1983 Note * Kezia Cisneros RN: PERFORM Event Display: Physician Order AMB Authored Date: [id number] * Kezia Cisneros RN: PERFORM Event Display: Patient Documentation AMB Authored Date: [id number] * Tracy Hobbs MA-MR II: PERFORM Event Display: Loop Recorder/Pacemaker Authored Date: [id number] * [facility] Fitting Room Associate II: PERFORM Event Display: ROI_Correspondence Authored Date: [id number] * Event Display: ROI_Correspondence Authored Date: * Event Display: ROI_Correspondence Authored Date: * Event Display: ROI_Correspondence Authored Date: Pain medicine Outpatient Note * Brooke Willett: PERFORM, MODIFY Event Display: Pain Management Office/Clinic Note Authored Date: Patient Information Name:CARSON NEWMAN Address: [address] [place] [phone] Sex:Male Date of :1940 Emergency Contact:DEREK MORIN Location:[facility] Registration Date and Time:01/19/2023 12:57 CDT Primary Care Physician: Say Low MD, Attending Physician: Brooke Willett, History of Present Illness Mr.??Mellisa presents today for follow-up he was last seen in the office on 11/05/2022 at which time he reported 50 to 60% improvement in his pain following??an epidural steroid injection at L5-S1 using a caudal approach performed by Dr. Boo on 01/13/2023.?? Patient presents today and reports incr easing pain as well as?? I have trouble picking up my legs. ?? He reports bilateral??lumbosacral pain??as well as weakness in the bilateral lower extremities that seems to be increased with activity and improved with rest.?? Today he rates his pain at 6-7/10. ?? Recall that the patient has undergone radiofrequency ablation??of the bilateral lumbar medial branch in the past with minimal improvement in his symptoms.?? However he noted significant improvement following local anesthetic injections. Vitals and Measurements No qualifying data available. Physical Exam General - The patient appears well-groomed and nourished. ??There are no visible deformities on general examination. ??The patient has a normal body habitus for his stated age. ? HEENT - Head is normocephalic and atraumatic. ??Cranial nerves II through XII are grossly intact. ??Conjunctivae are non-erythematous and sclerae anicteric. ??External oronasal region appears normal.? Musculoskeletal-his gait is slow he has a forward flexed posture.?? Heel toe stance present and symmetric. ??Lumbar range of motion??extension is limited but painless flexion lateral flexion either direction are full and painless. ??Strength is 5/5 in the bilateral lower extremities. ??Sensationis intact. ?? Imaging Studies- CT myelogram of the lumbar spine dated 03/26/2020, obtained at [facility], was reviewed, as was the radiologist???s report. ??It is positive for laminectomies from L1 to L5. ??Also noted is significant disc space narrowing and degenerative disc disease at L3-4 and L4-5 with moderate to severe bilateral foraminal stenosis, moderate to severe bilateral foraminal narrowing at L5-S1, significant disc space narrowing at L2-3, and bilateral facet arthropathy from L3-4 to L5-S1. ? Lumbar flexion/extension x-rays performed 03/10/2021 at [facility], are reportedly positive for 10 mm of anterolisthesis of L5 on S1 with flexion and corrects to 5 mm with extension. ??Thereis severe degenerative disc disease and osteoarthritis. ? Diagnostic Studies- EMG/NCS of the bilateral lower extremities dated 06/17/2022, obtained at [facility], performed by Dr. Cole Mancia, is reportedly positive for chronic bilateral L5and left S1 radiculopathies. ??However, peripheral neuropathy could not be ruled out. ?? Assessment/Plan 1.??Spinal stenosis, lumbar region with neurogenic claudication Ordered: .81048 Office Visit Level 4 Est ?? 2.??Spondylosis without myelopathy or radiculopathy, lumbar region Ordered: .[id number] Office Visit Level 4 Est ?? 3.??Other intervertebral disc degeneration, lumbar region Ordered: .[id number] Office Visit Level 4 Est ?? 4.??Low back pain, unspecified Ordered: .[id number] Office Visit Level 4 Est MRI LUMBAR SPINE W/WO CONTRAST per protocol ?? Orders: CHEST 2 VIEWS IMPRESSION:?? 1.??S/P laminectomy from L1 to L5. 2.??Significant disc space narrowing at L3-4 and L4-5 with moderate to severe bilateral foraminal stenosis.?? 3.??Moderate to severe bilateral foraminal narrowing at L5-S1. 4.??Significant disc space narrowing at L2-3. 5.??Bilateral facet arthropathy from L3-4 to L5-S1.?? 6.??The patient has a pacemaker, and it is reportedly MRI compatible; however, it needs to be??reprogrammed prior to the MRI study.?? 7.??Chronic bilateral L5 and left S1??radiculopathies, but??generalized neuropathy could not be ruled out per EMG/NCS dated 06/17/2022. 8.??The patient is on Xarelto this has been on hold for 4 days. ?? PLAN: 1.?The patient is experiencing symptoms of neurogenic claudication related to his multilevel lumbar stenosis. ??He has previously responded quite well??to a??epidural steroid injection at L5-S1 using a caudal approach therefore we discussed the option of repeating this procedure again today. ??The patient is agreeable to this and this will be performed by Dr. Boo. ??It is possible that his lumbar facet arthropathy could be contributing to some of his pain complaints as well however he haspreviously undergone??bilateral??bar medial branch radiofrequency??ablation with minimal improvement in his pain. 2. ??The patient will resume his Xarelto??as instructed 3. ??We will obtain new lumbar MRI imaging with and without contrast??the patient will follow-up with Dr. Boo to discuss results. 2.??The patient was instructed to stay as active as??his pain allows and to minimize bedrest.?? 3.??Healthy living patient education was sent to the patient's portal.? cc: ?Arslan Strickland M.D. ?? Say Low M.D. ?? Problem List/Past Medical History Ongoing Acid reflux Diabetes type 2 on insulin Gouty arthritis Heart disease Hyperlipidemia Hypertension Lumbar spondylosis Lumbar stenosis with neurogenic claudication Historical Kidney stone Procedure/Surgical History ???Insertion of carotid artery stent (07/12/2021)???Myelogram (05/2020)???L1-L5 DLL (Dr. Strickland) (05/25/2019)???Left kidney stone removed ([place]) (01/15/2019)???Pacemaker (MOBAP) (07/04/2017)???Right tib/fib fracture s/p fall (06/27/2011)???CABG x 3 vessels ([place]) (10/18/2003)???Endoscopic esophageal dilatation using fluoroscopic guidance???[place] ([place]-Dr. Horner) Medications allopurinol 300 mg oral tablet, 150 mg= 0.5 tablet(s), Oral, daily aspirin 81 mg oral enteric coated tablet, 81 mg= 1 tablet(s), Oral, daily carvedilol 25 mg oral tablet, 25 mg= 1 tablet(s), Oral, [id number] Centrum Silver, 1 tablet(s), Oral, qam Fish Oil 1600 mg/5 mL oral liquid, 3200 mg= 10 mL, Oral, bid folic acid 1 mg oral tablet, 1 mg= 1 tablet(s), Oral, daily furosemide 20 mg oral tablet, 40 mg= 2 tablet(s), Oral, daily losartan 100 mg oral tablet, 100 mg= 1 tablet(s), Oral, daily omeprazole 40 mg oral delayed release capsule, 40 mg= 1 capsule(s), Oral, daily before breakfast Plavix 75 mg oral tablet, 75 mg= 1 tablet(s), Oral, daily,?NOT TAKING, PHYSICIAN STOPPED MEDICATION: Called Dr Anne's office, pt nop longer taking medication. potassium citrate, 1080 mg, Oral, bid simvastatin 20 mg oral tablet, 20 mgo, Oral, qpm Synjardy XR 10 mg-1000 mg oral tablet, extended release, 1 tablet(s), Oral, qam tamsulosin 0.4 mg oral capsule, 0.4 mg= 1 capsule(s), Oral, pm after dinner Trelegy Ellipta, 1 puff(s), Inhalation, daily Trelegy Ellipta SAMPLE 100 mcg-62.5 mcg-25 mcg/inh Inhaler, 1 puff(s), Inhalation, daily Vitamin B-12 100 mcg oral tablet, 100 mcg= 1 tablet(s), Oral, daily Vitamin C 1000 mg oral tablet, 1000 mg= 1 tablet(s), Oral, daily Vitamin D3 5000 intl units oral capsule, 5000 mg, Oral, daily Xarelto 20 mg oral tablet, 20 mg= 1 tablet(s), Oral, pm with dinner Allergies NKA Social History Alcohol Former alcohol user, quit 2013, 05/14/2022 Employment/School Unemployed, 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 N/A Cessation Counseling., 05/14/2022 Family History ?Mother ?Positive ?Heart disease ?Father ?Positive ?Heart attack ?Mother ?Positive ?Alzheimers disease ?Mother ?Positive ?Diabetes mellitus ? Voice to Text Technology Disclaimer This note may contain text inserted via [employer] or other voice to text assistive technology and video game designer, variances may occur. Patient Care team information Care Team Personnel Name: Arslan Strickland M.D. Position: CPOE Surgeon Member Role: Specialist Physician Address: Address: [address] [place] [address]- Name: Say Low MD Position: ZZ FAX ONLY - MD NOT ON STAFF Member Role: Primary Care Physician Address: Address: [address] [place] [address] Name: Brooke WillettPFederica Position: AMB ACLS NURSE/PA Med Service: Bobbin Presser Fashion Photographer Role: Attending Physician Address: Address: [address] [place], [place] [id number] [place] Care Team Related Persons Name: DEREK MORIN
--- OUTSIDE RECORDS SUMMARY | 2024-09-22 18:58 | XMS_ITS | Continuity of Care Document ---
Author Organization [facility] Address [address] [place], [place] [id number] Care Team Providers Care Interpreter For The Deaf Name Role Phone Say Low Primary Care Physician Arslan Strickland Unavailable Encounter [facility] Financial Number [id number] Date(s): 01/19/23 - 01/19/[address] [id number] Discharge Disposition: Home or Self Care Attending Physician: Gonzalo Boo D.O. Referring Physician: Say Low MD Allergies, Adverse Reactions, Alerts No Known Allergies Medications allopurinol 300 mg oral tablet 150 mg, 0.5 tablet(s), Oral, daily, 30 tablet(s), Tablet(s), 0 Start Date: 07/11/20 Status: Ordered aspirin 81 mg oral enteric coated tablet 81 mg, 1 tablet(s), Oral, daily, Tab EC, 0 Start Date: 07/02/20 Status: Ordered carvedilol 25 mg oral tablet 25 mg, 1 tablet(s), Oral, [id number], 60 tablet(s), Tablet(s), 0, Take with snack/food [...] fall 06/27/11 Completed [facility] 10/18/03 Completed Endoscopic esophageal dilata tion using fluoroscopic guidance 1 Complete d Lasik ([place]-Dr. Horner) Completed 1multiple Social History Social History Type Response Alcohol Former alcohol user, quit 2013 Substance Abuse Never drug user Smoking Status Former smoker;Never; Tobacco Cessation Counseling Requested N/A 1 entered on: 05/14/22 Sex 1quit in 1983 Note * [facility] Structural Rigger II: PERFORM Event Display: ROI_Correspondence Authored Date: * Event Display: ROI_Correspondence Authored Date: [id number] * Event Display: ROI_Correspondence Authored Date: * Event Display: ROI_Correspondence Authored Date: Patient Care team information Care Team Personnel Name: Arslan Strickland M.D. Position: CPOE Surgeon Member Role: Specialist Physician Address: Address: [address] [place] [address]- Name: Say Low MD Position: ZZ FAX ONLY - MD NOT ON STAFF Member Role: Primary Care Physician Address: Address: [address] [place] [address] Name: Gonzalo Boo D.O. Position: Physician - Pain Management Med Service: Candy Wrapping Machine Operator Interpreter For The Deaf Role: Attending Physician Address: Address: [address] [place], [place] [address]- Care Team Related Persons Name: DEREK MORIN
--- OUTSIDE RECORDS SUMMARY | 2024-09-22 18:58 | XMS_ITS | Continuity of Care Document ---
Author Organization [facility] Address [address] [place] [phone] Care Team Providers Care Automotive Service Manager Name Role Phone Say Low Primary Care Physician Arslan Strickland Clair Cameron Encounter [facility] Financial Number [id number] Date(s): 06/01/21 - 06/01/[address] [id number] Discharge Disposition: Home or Self Care Attending Physician: Gonzalo Boo D.O. Referring Physician: Say Low MD Allergies, Adverse Reactions, Alerts No Known Allergies Assessment and Plan Future Appointments Appointment Date:06/29/2021 11:00:00 AM Scheduled Provider:Brooke Willett Location:[facility] Type:PPC EP Established Patient Medications allopurinol 300 mg oral tablet 150 [...] oral tablet 25 mg, 1 tablet(s), Oral, [id number], 60 tablet(s), Tablet(s), 0, Take with snack/food [...] Date: 06/01/21 Status: Ordered Problem List Condition Effective Dates [...] 06/27/11 Completed CABG x 3 vessels ([facility]) 10/18/03 Completed Endoscopic esophageal dilata tion using fluoroscopic guidance 1 Complete d [place] ([place]-Dr. Horner) Completed 1multiple Social History Social History Type Response Alcohol Former alcohol user, quit 2013 Substance Abuse Never drug user Smoking Status Former smoker;Never; Tobacco Cessation Counseling Requested N/A 1 entered on: 05/06/21 Sex 1quit in 1983
--- OUTSIDE RECORDS SUMMARY | 2024-09-22 18:58 | XMS_ITS | Continuity of Care Document ---
Author Organization [facility] Address [address], [place] [id number] Care Team Providers Care Nutritional Services Director Name Role Phone Say Low Primary Care Physician [phone] Encounter [facility] Financial Number [id number] Date(s): 02/24/23 - 02/24/[address] [id number] Discharge Disposition: Home or Self Care Attending Physician: Brooke Willett Admitting Physician: Brooke Willett Referring Physician: Brooke Willett Allergies, Adverse Reactions, Alerts No Known Allergies Medications allopurinol 300 mg oral tablet 150 mg, 0.5 tablet(s), Oral, daily, 30 tablet(s), Tablet(s), 0 Start Date: 07/11/20 Status: Ordered aspirin 81 mg oral enteric coated tablet 81 mg, 1 tablet(s), Oral, daily, Tab EC, 0 Start Date: 07/02/20 Status: Ordered carvedilol 25 mg oral tablet 25 mg, 1 tablet(s), Oral, [id number], 60 tablet(s), Tablet(s), 0, Take with snack/food [...] 1, inhaler Start Date: 06/29/21 Status: Ordered Valium 5 mg oral tablet See Instructions, 2 tablet(s), 0, 0, 1 tablet(s) Oral, Route to Pharmacy Electronically, [id number], [id number], Instructions Replace Required Details, 178,cm, 01/19/2023 1307, Height, 104, kg, 01/19/2023 1307... Start Date: 02/10/23 Status: Ordered Vitamin B-12 100 mcg oral [...] with Food Start Date: 06/01/21 Status: Ordered Mental Status 02/24/23 Orientation Oriented x 4 Problem List Condition Confirmation Course Effective Dates [...] 06/27/11 Completed CABG x [address] vessels ([facility] [place]) 10/18/03 Completed Endoscopic esophageal dilata tion using fluoroscopic guidance 1 Complete d Taurus ([place]-Dr. Horner) Completed 1multiple Results Radiology Reports * Exam Date Time Procedure Performing Provider Status 02/24/23 2:48 PM MRI LUMBAR SPINE W/W O CONTRAST Arslan Mancera vessel scrapper helper; Auth (Verified) Notes: (MRI LUMBAR SPINE W/WO CONTRAST) Reason For Exam: low back pain MRI LUMBAR SPINE W/WO CONTRAST MRI LUMBAR SPINE WITH AND WITHOUT CONTRAST COMPARISON: None HISTORY: low back pain TECHNIQUE: MR imaging was performed of the lumbar spine prior to and after intravenous gadolinium administration in the 1.5T MRI. CONTRAST: 10 cc clariscan. FINDINGS: Long segment laminectomies with excellent surgical result from L2 through L5. Partial laminectomy at L1. L5-S1: Shallow central disc bulging. Severe bilateral facet joint DJD. Far lateral disc bulging and facet joint spurs do cause moderate to severe neural foramina narrowing. L4-5: Marked internal disc derangement with Modic type II and endplate irregularity. Far lateral disc bulging and facet joint spurs cause severe bilateral neural foramina narrowing, left side slightly worse than right. L3-4: Slight retrolisthesis L3 on L4. Shallow diffuse disc bulging with endplate spurring. Far lateral disc bulging and facet joint spurs cause moderate to severe left and moderate right neural foramina narrowing. Moderate internal disc derangement with Modic type II. L2-3: Moderate broad-based diffuse disc bulging definitely contacts both traversing L3 nerve roots, the left with slight posterior displacement. In addition, left-sided synovial cyst medially displaces several left-sided cauda equina nerve roots, the synovial cyst measuring up to 6 mm. Far lateral disc bulging and facet joint spurs cause moderate to severe bilateral neural foramina narrowing.Advanced internal disc derangement with Modic type I and Modic type II. L1-2: Broad-based right greater than left diffuse bulging does contact the traversing right L2 nerve root. Far lateral disc bulging causes mild neural foramina narrowing. Opinion: Multilevel spondylosis changes. Excellent result long segment laminectomies without any high-grade spinal stenosis. Please see level by level description. . Dictating Physician: Gelacio Corona MD Releasing Physician: Gelacio Corona MD Signature Electronically Authorized Authorized Date/Time: 24-FEB-2023 03:31 pm Vital Signs Most recent to oldest [Reference Range]: 1 2 3 Peripheral Pulse Rate [60-100 bpm] 90 bpm (02/24/23 2:40 PM) 87 bpm (02/24/23 2:38 PM) 92 bpm (02/24/23 2:31 PM) Oxygen Therapy Room air (02/24/23 2:38 PM) Room air (02/24/23 1:54 PM) Social History Social History Type Response Alcohol Former alcohol user, quit 2013 Substance Abuse Never drug user Smoking Status Former smoker;Never; Tobacco Cessation Counseling Requested N/A 1 entered on: 05/14/22 Sex 1quit in 1983 Nurse Progress note * Talha Hernandez RN: PERFORM, MODIFY Event Display: Progress Note-Nurse Authored Date: [id number] 02/24/2023 @ 1345: PT TO MRI FOR LUMBAR SPINE SCAN. PT A and O X 4, PT WITH [facility] [employer]. CLEMENTO SIC REP HERE TO PLACE DEVICE INTO MRI SAFE MODE. PT TO BE MONITORED THROUGHOUT PROCEDURE. 1455: MRI COMPLETE. PT KAILA WELL. [facility] REP HER TO PLACE DEVICE TO PREVIOUS SETTINGS. Note * Event Display: Authorization to Treat Authored Date: * Event Display: Authorization to Treat Authored Date: * [facility] Model Engine Mechanic II: PERFORM Event Display: ROI_Correspondence Authored Date: [id number] * Event Display: ROI_Correspondence Authored Date: [id number] * Event Display: ROI_Correspondence Authored Date: * Event Display: ROI_Correspondence Authored Date: MR Lumbar spine WO and W contrast IV * Gelacio Corona MD: VERIFY, VERIFY, PERFORM Event Display: Interpretation: Authored Date: MRI LUMBAR SPINE WITH AND WITHOUT CONTRAST COMPARISON: None HISTORY: low back pain TECHNIQUE: MR imaging was performed of the lumbar spine prior to and after intravenous gadolinium administration in the 1.5T MRI. CONTRAST: 10 cc clariscan. FINDINGS: Long segment laminectomies with excellent surgical result from L2 through L5. Partial laminectomy at L1. L5-S1: Shallow central disc bulging. Severe bilateral facet joint DJD. Far lateral disc bulging and facet joint spurs do cause moderate to severe neural foramina narrowing. L4-5: Marked internal disc derangement with Modic type II and endplate irregularity. Far lateral disc bulging and facet joint spurs cause severe bilateral neural foramina narrowing, left side slightly worse than right. L3-4: Slight retrolisthesis L3 on L4. Shallow diffuse disc bulging with endplate spurring. Far lateral disc bulging and facet joint spurs cause moderate to severe left and moderate right neural foramina narrowing. Moderate internal disc derangement with Modic type II. L2-3: Moderate broad-based diffuse disc bulging definitely contacts both traversing L3 nerve roots, the left with slight posterior displacement. In addition, left-sided synovial cyst medially displaces several left-sided cauda equina nerve roots, the synovial cyst measuring up to 6 mm. Far lateral disc bulging and facet joint spurs cause moderate to severe bilateral neural foramina narrowing.Advanced internal disc derangement with Modic type I and Modic type II. L1-2: Broad-based right greater than left diffuse bulging does contact the traversing right L2 nerve root. Far lateral disc bulging causes mild neural foramina narrowing. Opinion: Multilevel spondylosis changes. Excellent result long segment laminectomies without any high-grade spinal stenosis. Please see level by level description. . Dictating Physician: Gelacio Corona MD Releasing Physician: Gelacio Corona MD Signature Electronically Authorized Authorized Date/Time: 24-FEB-2023 03:31 pm Patient Care team information Care Team Personnel Name: Arslan Strickland M.D. Position: CPOE Surgeon Member Role: Specialist Physician Address: Address: [address] [place] [address]- Name: Say Low MD Position: ZZ FAX ONLY - MD NOT ON STAFF Member Role: Primary Care Physician Address: Address: [address] [place] [address] Name: Brooke WillettGNP-Nolan Position: AMB ELECTRICAL AND ELECTRONIC ASSEMBLER/PA Med Service: Emt Dispatcher Nutritional Services Director Role: Referring Physician Address: Address: [address] [place] [address] [address] [place], [place] [id number] [place] Care Team Related Persons Name: DEREK MORIN
--- OUTSIDE RECORDS SUMMARY | 2024-09-22 18:58 | XMS_ITS | Continuity of Care Document ---
Author Organization [facility] Address [address] [place] [id number] Care Team Providers Care Analytical Laboratory Technician Name Role Phone Say Low Primary Care Physician Arslan Strickland [facility] Encounter [facility] Financial Number [id number] Date(s): 03/10/21 - 03/10/[address] [phone] Discharge Disposition: Home or Self Care Attending Physician: Arslan Strickland M.D. Referring Physician: Arslan Strickland M.D. Allergies, Adverse Reactions, Alerts No Known Allergies Assessment and Plan Future Appointments Appointment Date:04/14/2021 01:45:00 PM Scheduled Provider:Arslan Strickland M.D. Location: Neurosurgery Appointment Type:Virtual Telephone Visit Medications allopurinol 300 mg oral tablet 150 mg, 0.5 tablet(s), Oral, daily, 30 tablet(s), Tablet(s), 0 Start Date: 07/11/20 Status: Ordered amLODIPine 5 mg oral tablet 5 mg, 1 tablet(s), Oral, qam, 30 tablet(s), Tablet(s), 0 Start Date: 03/07/19 Status: Ordered aspirin 81 mg oral enteric coated tablet 81 mg, 1 tablet(s), Oral, daily, Tab EC, 0 Start Date: 07/02/20 Status: Ordered carvedilol 12.5 mg oral tablet 12.5 mg, 1 tablet(s), Oral, bid, 60 tablet(s), Tablet(s), 0, Take with snack/food Start Date: 03/07/19 Status: Ordered Centrum Silver 1 tablet(s), Oral, [...] Tablet(s), 0 Start Date: 03/07/19 Status: Ordered Medrol Dosepak 4 mg oral tablet See Instructions, 6 day(s), 21 tablet(s), Tablet(s), 0, 0, 03/16/2021 1408, as directed on package labeling, Route to Pharmacy Electronically, [facility] #[id number], [id number], Instructions Replace Required Details, 178... Start Date: 03/10/21 Stop Date: 03/16/21 Status: Ordered omeprazole 40 mg oral delayed [...] Lumbar stenosis with neuroge renetta claudication(Confirmed) Active Diagnosis Diagnosis Type Effective Dates Health Status Clini maren Service Informant Low back pain 03/10/21 Non-Specified Procedures Procedure Date Related Diagnosis Body Site Status Myelogram 05/2020 Completed L1-L5 DLL (Dr. Strickland) 05/25/19 Co mpleted Left kidney stone removed ([facility]) 01/15/19 Completed Pacemaker (MOBAP) 07/04/17 Complet ed Right tib/fib fracture s/p fall 06/27/11 Completed CABG x 3 vessels ([facility]) 10/18/03 Completed Endoscopic esophageal dilata tion using fluoroscopic guidance 1 Complete d [place] ([place]Dr. Horner) Completed 1multiple Results Radiology Reports * Exam Date Time Procedure Performing Provider Status 03/10/21 1:07 PM LUMBAR AP/LAT/FLEX/E XT STANDING Smitha Martinez Receiving Barn Custodian Student; Auth (Verified) Notes: (LUMBAR AP/LAT/FLEX/EXT STANDING) Reason For Exam: check fusion, back pain LUMBAR AP/LAT/FLEX/EXT STANDING EXAM: LUMBAR SPINE 4 VIEWS HISTORY: check fusion, back pain COMPARISON: 03/31/2020 FINDINGS: 4 views including flexion and extension obtained. 10 mm anterolisthesis L5 on S1 with flexion and corrects to 5 mm with extension. No fracture dislocation. Severe degenerative disc disease and osteoarthritis. Likely canal stenosis. IMPRESSION: Severe degenerative change. No acute fracture. . Dictating Physician: Patrick Jiménez M.D. Releasing Physician: Patrick Jiménez M.D. Signature Electronically Authorized Authorized Date/Time: 10-MAR-2021 03:23 pm Social History Social History Type Response Alcohol Former alcohol user, quit 2013 Substance Abuse Never drug user Smoking Status Former smoker;Never; Cessation Counseling N/A 1 entered on: 03/31/20 Sex 1quit in 1983
--- OUTSIDE RECORDS SUMMARY | 2024-09-22 18:58 | XMS_ITS | Continuity of Care Document ---
Author Organization [facility] Address [address], [place] [id number] Care Team Providers Care Piece Dyeing Machine Tender Name Role Phone Say Low Primary Care Physician [phone] Arslan Strickland Unavailable Encounter [facility] Financial Number [id number] Date(s): 01/19/23 - 01/19/[address] [phone] Discharge Disposition: Home or Self Care Attending Physician: Brooke Willett Referring Physician: Brooke Willett [...] oral tablet 25 mg, 1 tablet(s), Oral, [id number], 60 tablet(s), Tablet(s), 0, Take with snack/food [...] Lumbar stenosis with neurogenic claudication Confirmed Active Diagnosis Diagnosis Type Effective Dates Health Status Cl inical Service Informant History of cardiac pacemaker 01/19/23 Non-Specified Procedures Procedure Date Related Diagnosis Body Site Status Insertion of carotid artery stent 07/12/21 Completed Myelogram 05/2020 Completed L1-L5 DLL (Dr. Strickland) 05/25/19 Co mpleted Left kidney stone removed ([place]) 01/15/19 Completed Pacemaker (MOBAP) 07/04/17 Complet ed Right tib/fib fracture s/p fall 06/27/11 Completed CABG x 3 vessels ( [facility]) 10/18/03 Completed Endoscopic esophageal dilata tion using fluoroscopic guidance 1 Complete d Lasik ([facility] Horner) Completed 1multiple Results Radiology Reports * Exam Date Time Procedure Performing Provider Status 01/19/23 3:01 PM CHEST 2 VIEWS Mirtha Ventura E FARRUKH NT TECHNICIAN AUTOMATIC; Auth (Verified) Notes: (CHEST 2 VIEWS) Reason For Exam: Pacemaker lead placement CHEST 2 VIEWS EXAM: CHEST X-RAY - PA AND LATERAL HISTORY: Pacemaker lead placement COMPARISON: 10/15/2019 FINDINGS: Median sternotomy wires are intact. The heart is stable in size with a dual-chamber cardiac pacemaker device in place. The aorta is atherosclerotic. There is no acute consolidating infiltrate, effusion or pneumothorax. IMPRESSION: Heart size stable with pacemaker in place and postoperative changes. No significant change since 10/15/2019. . Dictating Physician: Fredrick Lyons MD Releasing Physician: Fredrick Lyons MD Signature Electronically Authorized Authorized Date/Time: 19-JAN-2023 03:11 pm Social History Social History Type Response Alcohol Former alcohol user, quit 2013 Substance Abuse Never drug user Smoking Status Former smoker;Never; Tobacco Cessation Counseling Requested N/A 1 entered on: 05/14/22 Sex 1quit in 1983 Note * Tiara Matamoros Patient Chemist Biological: PERFORM Event Display: Authorization to Treat Authored Date: * Tiara Matamoros Patient Chemist Biological: PERFORM Event Display: Authorization to Treat Authored Date: * [facility] Guidance Counselor II: PERFORM Event Display: ROI_Correspondence Authored Date: * Event Display: ROI_Correspondence Authored Date: * Event Display: ROI_Correspondence Authored Date: * Event Display: ROI_Correspondence Authored Date: XR Chest 2 Views * Fredrick Lyons MD: VERIFY, VERIFY, PERFORM Event Display: Interpretation: Authored Date: EXAM: CHEST X-RAY - PA AND LATERAL HISTORY: Pacemaker lead placement COMPARISON: 10/15/2019 FINDINGS: Median sternotomy wires are intact. The heart is stable in size with a dual-chamber cardiac pacemaker device in place. The aorta is atherosclerotic. There is no acute consolidating infiltrate, effusion or pneumothorax. IMPRESSION: Heart size stable with pacemaker in place and postoperative changes. No significant change since 10/15/2019. . Dictating Physician: Fredrick Lyons MD Releasing Physician: Fredrick Lyons MD Signature Electronically Authorized Authorized Date/Time: 19-JAN-2023 03:11 pm Patient Care team information Care Team Personnel Name: Arslan Strickland M.D. Position: CPOE Surgeon Member Role: Specialist Physician Address: Address: [id number] [place] [address] [address] [place] [address]- Name: Say Low MD Position: ZZ FAX ONLY - MD NOT ON STAFF Member Role: Primary Care Physician Address: Address: [address] [place] [address] Name: Brooke Willett Position: NIURKA JAVA TECH/PA Med Service: Refund Specialist Piece Dyeing Machine Tender Role: Referring Physician Address: Address: [address] [facility] [address] [place], [place] [phone] [place] Care Team Related Persons Name: DEREK MORIN
--- OUTSIDE RECORDS SUMMARY | 2024-09-22 18:58 | XMS_ITS | Continuity of Care Document ---
Author Organization [facility] Address [address], [place] [id number] Care Team Providers Care Science Manager Name Role Phone Say Low Primary Care Physician [phone] Arslan Strickland Unavailable Encounter [facility] Financial Number [id number] Date(s): 10/15/22 - 10/15/[address] [phone] Discharge Disposition: Home or Self Care Attending Physician: Gonzalo Boo D.O. Referring Physician: Say Low MD Allergies, Adverse Reactions, Alerts No Known Allergies Assessment and Plan Future Appointments Appointment Date:11/05/2022 01:40:00 PM Scheduled Provider:Brooke Willett Location:[facility] Appointment Type:PPC EP Established Patient Medications allopurinol 300 mg oral tablet 150 mg, 0.5 tablet(s), Oral, daily, 30 tablet(s), Tablet(s), 0 Start Date: 07/11/20 Status: Ordered aspirin 81 mg oral enteric coated tablet 81 mg, 1 tablet(s), Oral, daily, Tab EC, 0 Start Date: 07/02/20 Status: Ordered carvedilol 25 mg oral tablet 25 mg, 1 tablet(s), Oral, [id number], 60 tablet(s), Tablet(s), 0, Take with snack/food [...] fall 06/27/11 Completed CABG x 3 vessels ([facility]) 10/18/03 Completed Endoscopic esophageal dilata tion using fluoroscopic guidance 1 Complete d Lasik ([place]-Dr. Horner) Completed 1multiple Social History Social History Type Response Alcohol Former alcohol user, quit 2013 Substance Abuse Never drug user Smoking Status Former smoker;Never; Tobacco Cessation Counseling Requested N/A 1 entered on: 05/14/22 Sex 1quit in 1983 Note * [facility] Mutual Fund Manager II: PERFORM Event Display: ROI_Correspondence Authored Date: * Event Display: ROI_Correspondence Authored Date: * Event Display: ROI_Correspondence Authored Date: * Event Display: ROI_Correspondence Authored Date: Patient Care team information Care Team Personnel Name: Arslan Strickland M.D. Position: CPOE Surgeon Member Role: Specialist Physician Address: Address: [address] [place] [address] [place] Name: Say Low MD Position: ZZ FAX ONLY - MD NOT ON STAFF Member Role: Primary Care Physician Address: Address: [address] Name: Gonzalo Boo D.O. Position: AMB Physician Med Service: International Controller Science Manager Role: Attending Physician Address: Address: [address] [place] [address] [address] [place], [place] [address]- Care Team Related Persons Name: DEREK MORIN Name: ALFREDA HUBER
--- OUTSIDE RECORDS SUMMARY | 2024-09-22 18:59 | XMS_ITS | Encounter Summary ---
Author Organization [facility] Address [address] [place] [address] Care Team Providers Care Automatic Drill Operator Name Role Phone Edgar Geiger MD Unavailable Unavailable Say Low MD Primary Care Provider [phone] Reason for Referral * - Closed Specialty Diagnoses / Procedures Referred By Contac t Referred To Contact Cardiology Diagnoses CAD (coronary artery disease) Procedures ECHOCARDIOGRAM 2D WITH DOPPLER Edgar Geiger MD RETIRED Referral ID Status Reason Start Date Expiration Date Visits Re quested Visits Authorized [id number] Closed 12/11/2012 06/09/2013 1 1 * - Closed Specialty Diagnoses / Procedures Referred By Contac t Referred To Contact Cardiology Diagnoses CAD (coronary artery disease) Procedures EKG 12-LEAD Edgar Geiger MD RETIRED Referral ID Status Reason Start Date Expiration Date Visits Re quested Visits Authorized [id number] Closed 12/11/2012 06/09/2013 1 1 Reason for Visit * Reason Comments Chest Pain Chest discomfort. Encounter Details Date Type Department Care Team (Late st Contact Info) Description 12/11/2012 1:45 PM CDT Office Visit [facility] [address] [place] [id number] Edgar Geiger MD RETIRED CAD (coronary artery disease) (Primary Dx) Social History Tobacco Use Types Packs/Day Years Used Date Smoking Tobacco: Never Alcohol Use Standard Drinks/Week Comments Yes 0 (1 standard drink = 0.6 oz pur e alcohol) Sex and Gender Information Value Date Recorded Sex Assigned at Not on file Gender Identity Not on file Sexual Orientation Not on file documented as of this encounter Last Filed Vital Signs Vital Sign Reading Time Taken Comments Blood Pressure 130/76 12/11/2012 2:02 PM CDT Pulse 74 12/11/2012 2:02 PM CDT Temperature - - Respiratory Rate - - Oxygen Saturation - - Inhaled Oxygen Concentration - - Weight 118.4 kg (261 lb) 12/11/2012 2:02 PM CDT Height 180.3 cm (5' 11 ) 12/11/2012 2:02 PM CDT Body Mass Index 36.4 12/11/2012 2:02 PM CDT documented in this encounter Patient Instructions * Patient Instructions* Edgar Geiger MD - 12/11/2012 2:51 PM CDT Take all medications. Follow a low sodium and low calorie diet. Record weight weekly. Do not smoke.Follow instructions. Keep appointments. documented in this encounter Progress Notes * Edgar Geiger MD - 12/11/2012 2:41 PM CDT Cardiology Visit Note Drew Pak PCP: Say Low Chief Complaint Patient presents with ??? Chest Pain Chest discomfort. No Known Allergies SUBJECTIVE: Drew Pak who is a 72 y.o. male seen for a follow up visit for Fatigue and Follow-up coronary artery disease Patient denies chest pain, shortness of breath, dizziness, syncope and palpitations except as notedabove. Past Medical History Diagnosis Date ??? CAD (coronary artery disease) ??? S/P CABG x 3 ??? Essential hypertension, benign No past surgical history on file. No family history on file. History Social History ??? Marital Status: Single Spouse Name: N/A Number of Children: N/A ??? Years of Education: N/A Occupational History ??? Not on file. Social History Main Topics ??? Smoking status: Never Smoker ??? Smokeless tobacco: Not on file ??? Alcohol Use: Yes ??? Drug Use: No ??? Sexually Active: Not on file Other Topics Concern ??? Not on file Social History Narrative ??? No narrative on file Outpatient Encounter Prescriptions as of 12/11/2012 Medication Sig Dispense Refill ??? olmesartan-hydrochlorothiazide (BENICAR HCT) 40-12.5 MG tablet Take 1 Tab by mouth once daily. 30 Tab 3 ??? omeprazole (PRILOSEC OTC) 20 MG tablet Take 20 mg by mouth daily before breakfast. ??? metFORMIN (GLUCOPHAGE) 1000 MG tablet Take 1,000 mg by mouth 2 times daily with morning and evening meal. ??? [place]-3 Fatty Acids (TH OMEGA-3 FISH OIL) 1000 MG CAPS Take by mouth 2 times daily. ??? allopurinol (ZYLOPRIM) TABS Take 150 mg by mouth once daily after breakfast. ??? carvedilol (COREG) 12.5 MG tablet Take 12.5 mg by mouth 2 times daily with morning and evening meal. ??? Aspirin 81 MG TBEC Take by mouth. ??? simvastatin (ZOCOR) 40 MG tablet Take 40 mg by mouth once daily. No Known Allergies REVIEW OF SYSTEMS: Reviewed with patient and updated lists. Neurological: Negative for headaches, gait problems, speech impairment. Behavioral/Psych: Negative for depressed mood, anxiety, delusions. Endocrine: Negative for excess drinking/thirst, hair loss, thyroid swelling. Eyes: Negative for visual blurring, diplopia. ENT: Negative for hearing loss, tinnitus, vertigo, sinus congestion. Gastrointestinal: Negative for poor appetite, dysphagia, nausea, vomiting, constipation, diarrhea or bloody / dark stools Hematologic/lymphatic: Negative for weight loss, petechia, bleeding. General: NEGATIVE for fatigue. Negative for malaise. Respiratory: Negative for shortness of breath, bloody sputum, pleuritic chest pain, cough. Cardiovascular: Negative for chest pains, palpitations, lower extremity edema, fatigue, nocturnal orthopnea, dizziness. Musculoskeletal: Negative for muscle weakness, muscle pain, leg edema. All other systems reviewed. The review of systems is unremarkable except as mentioned above. OBJECTIVE: BP 130/76 Pulse 74 Wt 261 lb (118.389 kg) BMI 36.40 kg/m2 BP Readings from Last 3 Encounters: 12/11/12 130/76 08/16/12 171/85 Pulse Readings from Last 3 Encounters: 12/11/12 74 08/16/12 63 Wt Readings from Last 3 Encounters: 12/11/12 261 lb (118.389 kg) 08/16/12 253 lb (114.76 kg) PHYSICAL FINDINGS: General appearance: Alert, cooperative. DISTRESS NO. Weight: GAIN Neurologic: mental status normal; alert and oriented X 3; cranial nerves II - XII are grossly intact HEENT: Anicteric sclerae, pinkish palpebral conjunctiva, no tonsillopharyngeal congestion Neck: range of motion is intact, no masses, thyroid not enlarged, no adenopathy, Jugular Vein Distension: None Nodes: no cervical, axillary or inguinal adenopathy Abdomen: soft without mass, non-tender, with normal bowel sounds Chest/Lungs: BREATH NORMAL; RALES NONE, WHEEZES NONE Heart: RHYTHM REGULAR. MURMURS NONE PALPITATIONS NONE , GALLOP(S): None or rubs Extremities: No clubbing, cyanosis. EDEMA 1+ PITTING ANKLE Labs: No results found for this basename: CHOL:3,TRI,HDL:3,LDLCA in the last 17643 hours No results found for this basename: ALBUMIN:3,ALKPHOS:3,ALT:3,AST:3,TBIL:3,DBIL:3,TPROT:3 in the last 85678 hours No results found for this basename: HGBA1C:3 in the last 15269 hours No results found for this basename: TSH:3 in the last 09535 hours No results found for this basename: T4FREE:3 in the last 93724 hours Recent CV procedures Today's EKG: NORMAL SINUS RHYTHM RBBB Cardiac Procedure: Holter: No Stress: No ECHO: No Cath/PCI: No ASSESSMENT: OBESITY SHORTNESS OF BREATH: uncertain origin STABLE CORONARY DISEASE POST CABG and in 2003 PLAN: MEDICATION CHANGE(S): SAME TESTING: ECHOCARDIOGRAM and PFT RECOMMENDATION(S): TAKE ALL MEDICATIONS. FOLLOW A LOW SODIUM AND LOW CALORIE DIET. RECORD WEIGHT WEEKLY. DO NOT SMOKE. FOLLOW INSTRUCTIONS. KEEP APPOINTMENTS. RETURN APPOINTMENT: 6 months The patient and/or family understand the risks and benefits. They had an opportunity to ask questions. The patient and/or family agree to the plan. Thank you for allowing me the opportunity to participate in the care of your patient. Please do nothesitate to contact me should you have any questions or need additional information. Edgar Geiger MD 12/11/2012 2:41 PM Cc Say Low documented in this encounter Plan of Treatment Not on file documented as of this encounter Procedures Procedure Name Priority Date/Time Associated Diagnosis Comments EKG 12-LEAD Routine 12/11/2012 CAD (coronary artery disease) documented in this encounter Results * ECHOCARDIOGRAM 2D WITH DOPPLER (02/07/2013 2:35 PM CDT) Narrative Kala Montes De Oca - 02/07/2013 2:35 PM CDT Kala Montes De Oca ? 02/07/2013 ??2:35 PM TRANSTHORACIC ECHOCARDIOGRAM REPORT Name: ?? Drew Pak Date of Test: ? 02/06/2013 Age: ?72 y.o. : ?1940 Sex: ?male Blood Pressure: ??130/76 Attendant Honor Bar: ??SHAHRZAD Chacon Ordering Physician: ?? Dr. Low Time of Test: ?? 09:00 am Clinical Diagnosis: CAD, RBBB, CABG X3, HTN A transthoracic echo was performed with M-Mode, 2-Dimensional Imaging, Pulsed Wave, Continuous Wave, and Color Doppler. ??The study was technically difficult. 2D & M Mode Measurements: LEFT VENTRICLE End Diastolic Diameter: 52.1mm End Systolic Diameter: 32.6mm IVS Thickness: 19.5mm LVPW Thickness: 17.3mm Ejection Fraction: 50% - 54% Doppler & Color Flow: AORTIC VALVE Peak Velocity: 2.01m/s LVOT Velocity: 1.28m/s Peak Gradient: 16.2mmHg Mean Gradient: 9.3mmHg LVOT diam: 2.08cm Valve Area: 2.64cm2 MITRAL VALVE Peak E Velocity: 0.62m/s Peak A Velocity: 0.79m/s Valve Area: 2.70cm2 Physician Interpretation: ?? 2D & M Mode Report: 1. LEFT VENTRICLE: Adequate function. ??Mild diastolic dysfunction 2. LEFT ATRIUM: Mild enlargement. ??Atrial septal aneurysm noted 4. AORTIC VALVE: ??Sclerotic valve. Doppler: Mild insufficiency noted. 5. MITRAL VALVE: Normal leaflets, mobility and thickness. 6. PULMONIC VALVE: Normal leaflets, mobility and thickness. 7. TRICUSPID VALVE: Normal leaflets, mobility and thickness. ?? Doppler: No regurgitation noted. ?? 8. RIGHT VENTRICLE: Right ventricular dimensions show mild to moderate dilation 9. RIGHT ATRIUM: Mild to moderate enlargement 10. PERICARDIUM: No effusions Conclusion: 1. A TECHNICALLY DIFFICULT STUDY 2. ADEQUATE LEFT VENTRICULAR FUNCTION 3. NORMAL EJECTION FRACTION 50% - 54% 4. LEFT VENTRICULAR DIASTOLIC DYSFUNCTION 5. MILD AORTIC INSUFFICIENCY 6. 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 RIGHT ATRIAL/VENTRICULAR DILATION - MILD TO MODERATE Interpreting Tactical Deception Plans Officer: ?? Edgar Geiger MD, [facility] Procedure Note Kala Montes De Oca - 02/07/2013 2:23 PM CDT TRANSTHORACIC ECHOCARDIOGRAM REPORT Name: Drew Pak Date of Test: 02/06/2013 Age: 72 y.o. : 1940 Sex: male Blood Pressure: 130/76 Attendant Honor Bar: SHAHRZAD Chacon Ordering Physician: Dr. Low Time of Test: 09:00 am Clinical Diagnosis: CAD, RBBB, CABG X3, HTN A transthoracic echo was performed with M-Mode, 2-Dimensional Imaging,Pulsed Wave, Continuous Wave, and Color Doppler. The study wastechnically difficult. 2D & M Mode Measurements: LEFT VENTRICLE End Diastolic Diameter: 52.1mm End Systolic Diameter: 32.6mm IVS Thickness: 19.5mm LVPW Thickness: 17.3mm Ejection Fraction: 50% - 54% Doppler & Color Flow: AORTIC VALVE Peak Velocity: 2.01m/s LVOT Velocity: 1.28m/s Peak Gradient: 16.2mmHg Mean Gradient: 9.3mmHg LVOT diam: 2.08cm Valve Area: 2.64cm2 MITRAL VALVE Peak E Velocity: 0.62m/s Peak A Velocity: 0.79m/s Valve Area: 2.70cm2 Physician Interpretation: 2D & M Mode Report: 1. LEFT VENTRICLE: Adequate function. Mild diastolic dysfunction 2. LEFT ATRIUM: Mild enlargement. Atrial septal aneurysm noted 4. AORTIC VALVE: Sclerotic valve. Doppler: Mild insufficiency noted. 5. MITRAL VALVE: Normal leaflets, mobility and thickness. 6. PULMONIC VALVE: Normal leaflets, mobility and thickness. 7. TRICUSPID VALVE: Normal leaflets, mobility and thickness. Doppler: Noregurgitation noted. 8. RIGHT VENTRICLE: Right ventricular dimensions show mild to moderatedilation 9. RIGHT ATRIUM: Mild to moderate enlargement 10. PERICARDIUM: No effusions Conclusion: 1. A TECHNICALLY DIFFICULT STUDY 2. ADEQUATE LEFT VENTRICULAR FUNCTION 3. NORMAL EJECTION FRACTION 50% - 54% 4. LEFT VENTRICULAR DIASTOLIC DYSFUNCTION 5. MILD AORTIC INSUFFICIENCY 6. 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 RIGHT ATRIAL/VENTRICULAR DILATION - MILD TO MODERATE Interpreting Tactical Deception Plans Officer: Edgar Geiger MD, [facility] Edgar Geiger MD ECHO ORDERABLES * EKG 12-LEAD (12/11/2012) Edgar Geiger MD ECG ORDERABLES SS RESULT SCAN documented in this encounter Visit Diagnoses Diagnosis CAD (coronary artery disease)- Primary Coronary atherosclerosis of unspecified type of vessel, ute or graft CAD (coronary artery disease) Coronary atherosclerosis of unspecified type of vessel, ute or graft documented in this encounter Care Teams Automatic Drill Operator Relationship Specialty Start Date End Date Say Low MD [address] [place] [id number] PCP - General Internal Medicine 08/14/12 Edgar Geiger MD Cardiovascular Disease 08/14/12 documented as of this encounter
--- OUTSIDE RECORDS SUMMARY | 2024-09-22 18:59 | XMS_ITS | Encounter Summary ---
Author Organization [facility] Address [address] [place] [address] Care Team Providers Care Recreational Leader Name Role Phone Edgar Geiger MD Unavailable Unavailable Say Low MD Primary Care Provider [phone] Reason for Visit * Reason Comments Refill Request Encounter Details Date Type Department Care Team (Late st Contact Info) Description 02/05/2015 Refill [facility] [address] [place] [id number] Edgar Geiger MD RETIRED Refill Request Social History Tobacco Use Types Packs/Day Years Used Date Smoking Tobacco: Former Comments:QUIT SMOKING 30 YEA RS AGO Alcohol Use Standard Drinks/Week Comments Yes 0 (1 standard drink = 0.6 oz pur e alcohol) Sex and Gender Information Value Date Recorded Sex Assigned at Not on file Gender Identity Not on file Sexual Orientation Not on file documented as of this encounter Plan of Treatment Not on file documented as of this encounter Visit Diagnoses Not on filedocumented in this encounter Care Teams Recreational Leader Relationship Specialty Start Date End Date Say Low MD [address] [facility] [place] [id number] PCP - General Internal Medicine 08/14/12 Edgar Geiger MD Cardiovascular Disease 08/14/12 documented as of this encounter
--- OUTSIDE RECORDS SUMMARY | 2024-09-22 18:59 | XMS_ITS | Encounter Summary ---
Author Organization [facility] Address [address] [place] [address] Care Team Providers Care Floor Service Worker Spring Name Role Phone Edgar Geiger MD Unavailable Unavailable Say Low MD Primary Care Provider [phone] Reason for Visit * Reason Comments Refill Request Encounter Details Date Type Department Care Team (Late st Contact Info) Description 07/17/2013 Refill [facility] [address] [place] [id number] Edgar Geiger MD RETIRED Refill Request Social [...] on filedocumented in this encounter Care Teams Floor Service Worker Spring Relationship Specialty Start Date End Date Say Low MD [address] [place] [address] PCP - General Internal Medicine 08/14/12 Edgar Geiger MD Cardiovascular Disease 08/14/12 documented as of this encounter
--- OUTSIDE RECORDS SUMMARY | 2024-09-22 18:59 | XMS_ITS | Encounter Summary ---
Author Organization [facility] Address [address] [place] [address] Care Team Providers Care Supervising Film Or Videotape Editor Name Role Phone Edgar Geiger MD Unavailable Unavailable Say Low MD Primary Care Provider [phone] Reason for Visit * Reason Comments Refill Request Encounter Details Date Type Department Care Team (Late st Contact Info) Description 05/02/2014 Refill [facility] [address] [place] [id number] Edgar Geiger MD RETIRED Refill Request Social [...] on file documented as of this encounter Miscellaneous Notes * Telephone Encounter - Josey Vale - 05/02/2014 12:28 PM CDT Patient's next appointment is 09/04/14. documented in this encounter Plan of Treatment Not on file documented as of this encounter Visit Diagnoses Not on filedocumented in this encounter Care Teams Supervising Film Or Videotape Editor Relationship Specialty Start Date End Date Say Low MD [address] [place] [id number] PCP - General Internal Medicine 08/14/12 Edgar Geiger MD Cardiovascular Disease 08/14/12 documented as of this encounter
--- OUTSIDE RECORDS SUMMARY | 2024-09-22 18:59 | XMS_ITS | Referral Summary ---
Author Organization [facility] [employer] Address [address] [facility] [place] [address] Care Team Providers Care Cctv Technician Name Role Phone Edgar Geiger MD Unavailable Unavailable Say Low MD Primary Care Provider [phone] Source Comments [facility] [employer],non-owned Affiliates and Associated Physician Practices is amultiple site organization consisting of ambulatory clinics and hospital sitesin [place], [place] and [place]. This disclosure is being madepursuant to the Care Everywhere program and may not contain all information available regarding this patient. Last updated 18.[facility] [employer] Allergies No known active allergies Medications * Be aware that medications may not be up to date on this document. Alwaysverify current medications with the patient. Medication Sig Dispensed Refills Start Date End Date Status omeprazole (PRILOSEC OTC) 20 MG tablet Take 20 mg by mouth daily before breakfast. Active metFORMIN (GLUCOPHAGE) 1000 MG tablet Take 1,000 mg by mouth 2 times daily with morning and evening meal. Active [place]-3 Fatty Acids (TH OMEGA-3 FISH OIL) 1000 MG CAPS Take by mouth 2 times daily. Active allopurinol (ZYLOPRIM) TABS Take 150 mg by mouth once daily after breakfast. Active Aspirin 81 MG TBEC Take by mouth. Ac tive simvastatin (ZOCOR) 40 MG tablet Take 40 mg by mouth once daily. Active carvedilol (COREG) 3.125 MG tablet Take 1 Tab by mouth 2 times daily with morning and evening meal. 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 08/14/2012 Social History Tobacco Use Types Packs/Day Years Used Date Smoking Tobacco: Former Comments:QUIT SMOKING 30 YEA RS AGO Alcohol Use Standard Drinks/Week Comments No 0 (1 standard drink = 0.6 oz pur e alcohol) Sex and Gender Information Value Date Recorded Sex Assigned at Not on file Gender Identity Not on file Sexual Orientation Not on file Last Filed Vital Signs Vital Sign Reading Time Taken Comments Blood Pressure 120/72 03/12/2015 1:18 PM CDT Pulse 72 03/12/2015 1:18 PM CDT Temperature - - Respiratory Rate - - Oxygen Saturation - - Inhaled Oxygen Concentration - - Weight 104.8 kg (231 lb) 03/12/2015 1:18 PM CDT Height 180.3 cm (5' 11 ) 03/12/2015 1:18 PM CDT Body Mass Index 32.22 03/12/2015 1:18 PM CDT Plan of Treatment Not on file Care Teams Cctv Technician Relationship Specialty Start Date End Date Say Low MD [address] [place] [address] PCP - General Internal Medicine 08/14/12 Edgar Geiger MD Cardiovascular Disease 08/14/12
--- OUTSIDE RECORDS SUMMARY | 2024-09-22 18:59 | XMS_ITS | Encounter Summary ---
Author Organization [facility] Address [address] [place] [address] Care Team Providers Care Director Medical Economics Name Role Phone Edgar Geiger MD Unavailable Unavailable Say Low MD Primary Care Provider [phone] Reason for Referral * - Closed Specialty Diagnoses / Procedures Referred By Contac t Referred To Contact Cardiology Diagnoses CAD (coronary artery disease) Procedures EKG 12-LEAD Edgar Geiger MD RETIRED Referral ID Status Reason Start Date Expiration Date Visits Re quested Visits Authorized [id number] Closed 08/06/2013 02/02/2014 1 1 ARCH FOOD TECHNOLOGIST Reason for Visit * Reason Comments Follow-up Hospital follow-up a nd shortness of breath. Encounter Details Date Type Department Care Team (Late st Contact Info) Description 08/06/2013 2:45 PM RESEARCH FOOD TECHNOLOGIST Office Visit [facility] [address] [place] [id number] Edgar Geiger MD RETIRED CAD (coronary artery disease) (Primary Dx); CHF (congestive heart failure) (HCC); Shortness of breath; CABG x 3 - vein graft to 1st OM, vein graft to 2nd OM, vein graft to PDA Social History Tobacco Use Types Packs/Day Years [...] Sign Reading Time Taken Comments Blood Pressure 158/75 08/06/2013 3:23 PM RESEARCH FOOD TECHNOLOGIST Pulse 70 08/06/2013 3:23 PM RESEARCH FOOD TECHNOLOGIST Temperature - - Respiratory Rate - - Oxygen Saturation - - Inhaled Oxygen Concentration - - Weight 115.7 kg (255 lb) 08/06/2013 3:23 PM RESEARCH FOOD TECHNOLOGIST Height 180.3 cm (5' 11 ) 08/06/2013 3:23 PM RESEARCH FOOD TECHNOLOGIST Body Mass Index 35.57 08/06/2013 3:23 PM RESEARCH FOOD TECHNOLOGIST documented in this encounter Progress Notes * Edgar Geiger MD - 08/06/2013 3:44 PM CST Cardiology Visit Note Drew Pak PCP: Say Low Chief Complaint Patient presents with ??? Follow-up Hospital follow-up and shortness of breath. No Known Allergies SUBJECTIVE: Drew Pak who is a 73 y.o. male seen for a follow up visit for Follow-up congestive heart failure Patient denies chest pain, shortness of breath, [...] on file Outpatient Encounter Prescriptions as of 08/06/2013 Medication Status Sig Dispense Refill ??? carvedilol (COREG) 12.5 MG tablet Active Take 12.5 mg by mouth 2 times daily with morning and evening meal. ??? Ascorbic Acid (VITAMIN C) 500 MG CAPS Active Take 500 mg by mouth once daily. ??? carvedilol (COREG) 12.5 MG tablet Active TAKE 1 TABLET TWICE A DAY 60 Tab 4 ??? olmesartan-hydrochlorothiazide (BENICAR HCT) 40-12.5 MG tablet Active Take 1 Tab by mouth once daily. 30 Tab 8 ??? omeprazole (PRILOSEC OTC) 20 MG tablet Active Take 20 mg by mouth daily before breakfast. ??? metFORMIN (GLUCOPHAGE) 1000 MG tablet Active Take 1,000 mg by mouth 2 times daily with morning and evening meal. ??? [place]-3 Fatty Acids (TH OMEGA-3 FISH OIL) 1000 MG CAPS Active Take by mouth 2 times daily. ??? allopurinol (ZYLOPRIM) TABS Active Take 150 mg by mouth once daily after breakfast. ??? Aspirin 81 MG TBEC Active Take by mouth. ??? simvastatin (ZOCOR) 40 MG tablet Active Take 40 mg by mouth once daily. [...] unremarkable except as mentioned above. OBJECTIVE: BP 158/75 Pulse 70 Wt 115.667 kg (255 lb) BMI 35.57 kg/m2 BP Readings from Last 3 Encounters: 08/06/13 158/75 12/11/12 130/76 08/16/12 171/85 Pulse Readings from Last 3 Encounters: 08/06/13 70 12/11/12 74 08/16/12 63 Wt Readings from Last 3 Encounters: 08/06/13 115.667 kg (255 lb) 12/11/12 118.389 kg (261 lb) 08/16/12 114.76 kg (253 lb) Vitals: 08/06/13 1523 BP: 158/75 Pulse: 70 Weight: 115.667 kg (255 lb) DATA: No results found for this basename: WBC:3,HGB:3,HCT:3,INR:3 in the last 80087 hours No results found for this basename: SODIUM:3,POTASSIUM:3,CHLORIDE:3,CO2:3,BUN:3,CREATININE:3,GLUCOSE:3,CALCIUM:3 in the last 17886 hours No results found for this basename: BNP in the last 40808 hours No results found for this basename: CHOL:3 in the last 73634 hours No results found for this basename: DIGOXIN:3 in the last 85908 hours No results found for this basename: TROPONIN:3 in the last 78045 hours PHYSICAL FINDINGS: General appearance: Alert, cooperative. DISTRESS NO. Weight: NO CHANGE Neurologic: mental status normal; alert and oriented [...] or rubs Extremities: No clubbing, cyanosis. EDEMA 2+ [place] Labs: No results found for this basename: CHOL:3,TRI,HDL:3,LDLCA in the last 10320 hours No results found for this basename: ALBUMIN:3,ALKPHOS:3,ALT:3,AST:3,TBIL:3,DBIL:3,TPROT:3 in the last 17015 hours No results found for this basename: HGBA1C:3 in the last 14405 hours No results found for this basename: TSH:3 in the last 38794 hours No results found for this basename: T4FREE:3 in the last 04585 hours Recent CV procedures Today's EKG: NORMAL SINUS RHYTHM: WITH NON-SPECIFIC STT CHANGES RBBB Cardiac Procedure: Holter: NO Stress: NO ECHO: YES 1. A TECHNICALLY DIFFICULT STUDY 2. ADEQUATE LEFT VENTRICULAR FUNCTION 3. NORMAL EJECTION FRACTION 50% - 54% 4. LEFT VENTRICULAR DIASTOLIC DYSFUNCTION 5. MILD AORTIC INSUFFICIENCY 6. 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 RIGHT ATRIAL/VENTRICULAR DILATION - MILD TO MODERATE Interpreting [place]: Edgar Geiger MD, [facility] Cath/PCI: NO ASSESSMENT: CHF worsening, chronic diastolic heart failure : it is moderate and decompensated EDEMA: Bilateral, moderate WEIGHT: Morbid Obesity SHORTNESS OF BREATH: cardiac STABLE CORONARY DISEASE POST CABG and x3 2003 PLAN: MEDICATION CHANGE(S): INCREASE lasix 40 qd TESTING: NONE RECOMMENDATION(S): TAKE ALL MEDICATIONS: FOLLOW A LOW SODIUM AND LOW CALORIE DIET. RECORD WEIGHT WEEKLY. DO NOT SMOKE. FOLLOW INSTRUCTIONS. KEEP APPOINTMENTS. RETURN APPOINTMENT: 2 months The patient and/or family understand the risks and benefits. They had an opportunity to ask questions. The patient and/or family agree to the plan. Thank you for allowing me the opportunity to participate in the care of your patient. Please do nothesitate to contact me should you have any questions or need additional information. Edgar Geiger MD 08/06/2013 3:44 PM Cc Say Low ARCH FOOD TECHNOLOGIST documented in this encounter Plan of Treatment Not on file documented as of this encounter Procedures Procedure Name Priority Date/Time Associated Diagnosis Comments EKG 12-LEAD Routine 08/06/2013 CAD (coronary artery disease) documented in this encounter Results * EKG 12-LEAD (08/06/2013) Edgar Geiger MD ECG ORDERABLES SS RESULT SCAN documented in this encounter Visit Diagnoses Diagnosis CAD (coronary artery disease)- Primary Coronary atherosclerosis of unspecified type of vessel, beaver or graft CHF (congestive heart failure) (HCC) Congestive heart failure, unspecified Shortness of breath CABG x 3 - vein graft to 1st OM, vein graft to 2nd OM, vein graft to PDA Postsurgical aortocoronary bypass status documented in this encounter Care Teams Director Medical Economics Relationship Specialty Start Date End Date Say Low MD [address] [place] [address] PCP - General Internal Medicine 08/14/12 Edgar Geiger MD Cardiovascular Disease 08/14/12 documented as of this encounter
--- OUTSIDE RECORDS SUMMARY | 2024-09-22 18:59 | XMS_ITS | Continuity of Care Document ---
Author Organization [facility] Address [address] [place] [id number] Care Team Providers Care Legislative Assistant Name Role Phone Say Low Primary Care Physician Marco A Arslan Self Cameron Encounter [facility] Financial Number [id number] Date(s): 07/02/22 - 07/02/[address] [id number] Discharge Disposition: Home or Self Care Attending Physician: Gonzalo Boo D.O. Referring Physician: Say Low MD Allergies, Adverse Reactions, Alerts No Known Allergies Assessment and Plan Future Appointments Appointment Date:07/23/2022 11:20:00 AM Scheduled Provider:Brooke Willett Location:[facility] App[facility] Type:PPC EP Established Patient Medications allopurinol 300 mg oral tablet 150 mg, 0.5 tablet(s), Oral, daily, 30 tablet(s), Tablet(s), 0 Start Date: 07/11/20 Status: Ordered aspirin 81 mg oral enteric coated tablet 81 mg, 1 tablet(s), Oral, daily, Tab EC, 0 Start Date: 07/02/20 Status: Ordered carvedilol 25 mg oral tablet 25 mg, 1 tablet(s), Oral, [id number], 60 tablet(s), Tablet(s), 0, Take with snack/food [...] fall 06/27/11 Completed CABG x 3 vessels ([facility]) 10/18/03 Completed Endoscopic esophageal dilata tion using fluoroscopic guidance 1 Complete d Lasik ([facility] Hor[facility]) Completed 1multiple Social History Social History Type Response Alcohol Former alcohol user, quit 2013 Substance Abuse Never drug user Smoking Status Former smoker;Never; Tobacco Cessation Counseling Requested N/A 1 entered on: 05/14/22 Sex 1quit in 1983 Note * [facility] Body Masker II: PERFORM Event Display: ROI_Correspondence Authored Date: * Event Display: ROI_Correspondence Authored Date: * Event Display: ROI_Correspondence Authored Date: * Event Display: ROI_Correspondence Authored Date: Patient Care team information Care Team Personnel Name: Arslan Strickland M.D. Position: CPOE Surgeon Member Role: Specialist Physician Address: Address: [address] [place] [id number] [place] Name: Say Low MD Position: ZZ FAX ONLY - MD NOT ON STAFF Member Role: Primary Care Physician Address: Address: [address] Name: Gonzalo Boo D.O. Position: AMB Physician Med Service: [facility] Member Role: Attending Physician Address: Address: [address] [place] [address] [address] [place], [place] [address]- Care Team Related Persons Name: DEREK MORIN Name: ALFREDA HUBER
--- OUTSIDE RECORDS SUMMARY | 2024-09-22 18:59 | XMS_ITS | Encounter Summary ---
Author Organization [facility] Address [address] [place] [address] Care Team Providers Care Director Trading Name Role Phone Edgar Geiger MD Unavailable Unavailable Say Low MD Primary Care Provider [phone] Reason for Visit * Reason Comments Refill Request Encounter Details Date Type Department Care Team (Late st Contact Info) Description 12/28/2013 Refill [facility] [address] [place] [id number] Edgar Geiger MD RETIRED Refill Request Social [...] encounter Miscellaneous Notes * Telephone Encounter - Ivelisse Victor - 12/28/2013 1:03 PM CDT Next office visit: 02/12/14 documented in this encounter Plan of Treatment Not on file documented as of this encounter Visit Diagnoses Not on filedocumented in this encounter Care Teams Director Trading Relationship Specialty Start Date End Date Say Low MD [address] [place] [address] PCP - General Internal Medicine 08/14/12 Edgar Geiger MD Cardiovascular Disease 08/14/12 documented as of this encounter
--- OUTSIDE RECORDS SUMMARY | 2024-09-22 18:59 | XMS_ITS | Clinical Summary ---
Author Organization [facility] Address [address] [place] [address] Care Team Providers Care Collar Shaper Operator Name Role Phone Edgar Geiger MD Unavailable Unavailable Say Low MD Primary Care Provider [phone] Source Comments [facility],non-owned Affiliates and Associated Physician Practices is amultiple site organization consisting of ambulatory clinics and hospital sitesin [place], [place], [place] and [place]. This disclosure is being madepursuant to the Care Everywhere program and may not contain all information available regarding this patient. Last updated 18.[facility] Allergies No known active allergies Medications * [...] daily with morning and evening meal. Active Cucumber-3 Fatty Acids (TH OMEGA-3 FISH OIL) 1000 [...] 03/12/2015 1:18 PM CDT Plan of Treatment Health Maintenance Due Date Last Done Comments MEDICARE AWV ? 12 MONTHS 1942 DTAP/TDAP/TD VACCINES (1 - Tdap) 1961 ZOSTER VACCINE (1 of 2) 1992 PNEUMOCOCCAL VACCINE 65+ (1 of 1 - PCV) 2007 Respiratory Syncytial Virus (RSV) Vaccine Pt: or over 60 yrs (1 - 1-dose 75+ series) 2017 DEPRESSION SCREENING 10/03/2023 COVID-19 VACCINE ( - 2023-2 5 season) 2024 INFLUENZA VACCINE (#1) 2024 HEPATITIS B VACCINE Aged Out No longe r eligible based on patient's age to complete this topic HIB VACCINE Aged Out No longer eligi ble based on patient's age to complete this topic HPV VACCINE Aged Out No longer eligi ble based on patient's age to complete this topic MENINGOCOCCAL VACCINE Aged Out No donny janneth eligible based on patient's age to complete this topic Care Teams Collar Shaper Operator Relationship Specialty Start Date End Date Say Low MD [address] [place] [address] PCP - General Internal Medicine 08/14/12 Edgar Geiger MD Cardiovascular Disease 08/14/12
--- OUTSIDE RECORDS SUMMARY | 2024-09-22 18:59 | XMS_ITS | Encounter Summary ---
Author Organization [facility] Address [address] [place] [address] Care Team Providers Care Drum Puller Name Role Phone Edgar Geiger MD Unavailable Unavailable Say Low MD Primary Care Provider [phone] Reason for Visit * Reason Onset Date Comments MEDICATION REFILL 03/30/2013 Encounter Details Date Type Department Care Team (Late st Contact Info) Description 03/30/2013 Refill [facility] Care [address] [place] [id number] Edgar Geiger MD RETIRED MEDICATION REFILL Social History Tobacco Use Types Packs/Day Years [...] on filedocumented in this encounter Care Teams Drum Puller Relationship Specialty Start Date End Date Say Low MD [address] [place] [id number] PCP - General Internal Medicine 08/14/12 Edgar Geiger MD Cardiovascular Disease 08/14/12 documented as of this encounter
--- OUTSIDE RECORDS SUMMARY | 2024-09-22 18:59 | XMS_ITS | Encounter Summary ---
Author Organization [facility] Address [address] [place] [address] Care Team Providers Care Car Retarder Operator Name Role Phone Edgar Geiger MD Unavailable Unavailable Say Low MD Primary Care Provider [phone] Encounter Details Date Type Department Care Team (Late st Contact Info) Description 11/27/2012 Hospital Outpatient Visit [facility] - Orthopedics [facility] [facility], [place] [address] [place], [address] [place] [address] [address] [place] [address] Social History Tobacco Use Types Packs/Day Years [...] on filedocumented in this encounter Care Teams Car Retarder Operator Relationship Specialty Start Date End Date Say Low MD [address] [place] [address] PCP - General Internal Medicine 08/14/12 Edgar Geiger MD Cardiovascular Disease 08/14/12 documented as of this encounter
--- OUTSIDE RECORDS SUMMARY | 2024-09-22 18:59 | XMS_ITS | Encounter Summary ---
Author Organization [facility] Address [address] [place] [address] Care Team Providers Care Java J2Ee Technical Lead Name Role Phone Edgar Geiger MD Unavailable Unavailable Say Low MD Primary Care Provider [phone] Reason for Visit * Reason Comments Refill Request Encounter Details Date Type Department Care Team (Late st Contact Info) Description 12/20/2012 Refill [facility] Care [address] [place] [address] Edgar Geiger MD RETIRED Refill Request Social [...] on filedocumented in this encounter Care Teams Java J2Ee Technical Lead Relationship Specialty Start Date End Date Say Low MD [address] [place] [address] PCP - General Internal Medicine 08/14/12 Edgar Geiger MD Cardiovascular Disease 08/14/12 documented as of this encounter
--- OUTSIDE RECORDS SUMMARY | 2024-09-22 18:59 | XMS_ITS | Patient Health Summary ---
Author Organization [facility] [place] Address [address] [place] [address] Care Team Providers Care Publisher Assistant Name Role Phone Edgar Geiger MD Unavailable Unavailable Say Low MD Primary Care Provider [phone] [facility],non-owned Affiliates and Associated Physician Practices is amultiple site organization consisting of ambulatory clinics and hospital sitesin [place], [place], [place] and [place]. This disclosure is being madepursuant to the Care Everywhere program and may not contain all information available regarding this patient. Last updated 18.[facility] Allergies No known active allergies Medications * Be aware that medications may not be up to date on this document. Alwaysverify current medications with the patient. * omeprazole (PRILOSEC OTC) 20 MG tablet Take 20 mg by mouth daily before breakfast. * metFORMIN (GLUCOPHAGE) 1000 MG tablet Take 1,000 mg by mouth 2 times daily with morning and evening meal. * [place]-3 Fatty Acids (TH [place]MEGA-3 FISH OIL) 1000 MG CAPS Take by mouth 2 times daily. * allopurinol (ZYLOPRIM) TABS Take 150 mg by mouth once daily after breakfast. * Aspirin 81 MG TBEC Take by mouth. * simvastatin (ZOCOR) 40 MG tablet Take 40 mg by mouth once daily. * carvedilol (COREG) 3.125 MG tablet(Started 02/03/2015) Take 1 Tab by mouth 2 times daily with morning and evening meal. 5 refills left * olmesartan (BENICAR) 20 MG tablet(Started 03/12/2015) Take 1 Tab by mouth once daily 3 refills left Active Problems Problem Noted Date Diagnosed Date [...] [place] Index 32.22 03/12/2015 1:18 PM CDT Procedures * DERMATOPATHOLOGY(Performed 01/27/2018) * DERMATOPATHOLOGY(Performed 01/11/2018) * DERMATOPATHOLOGY(Performed 05/29/2015) * EKG 12-LEAD(Performed 08/06/2013) Performed for CAD (coronary artery disease) * ECHOCARDIOGRAM 2D WITH DOPPLER(Performed 02/07/2013) Performed for CAD (coronary artery disease) * EKG 12-LEAD(Performed 12/11/2012) Performed for CAD (coronary artery disease) * XR TIBIA FIBULA RIGHT 2VW(Performed 11/27/2012) * XR ANKLE RIGHT 3VW OR MORE(Performed 11/27/2012) * CT ANKLE RIGHT WO CONTRAST(Performed 11/20/2012) * XR ANKLE RIGHT 3VW OR MORE(Performed 11/13/2012) * XR TIBIA FIBULA RIGHT 2VW(Performed 11/13/2012) * DERMATOPATHOLOGY(Performed 10/26/2012) * XR ANKLE RIGHT 3VW OR MORE(Performed 06/20/2012) * EKG 12-LEAD MAGNET(Performed 04/18/2012) * XR BONE LENGTH SCANOGRAM(Performed 04/18/2012) * XR TIBIA FIBULA RIGHT 2VW(Performed 04/18/2012) * XR ANKLE RIGHT 3VW OR MORE(Performed 04/18/2012) * EKG 12-LEAD(Performed 04/12/2012) * GLUCOSE ACCUCHECK(Performed 04/07/2012) * GLUCOSE ACCUCHECK(Performed 04/07/2012) * XR ANKLE RIGHT 3VW OR MORE(Performed 03/28/2012) * XR TIBIA FIBULA RIGHT 2VW(Performed 03/28/2012) * XR ANKLE RIGHT 3VW OR MORE(Performed 03/14/2012) * XR TIBIA FIBULA RIGHT 2VW(Performed 03/14/2012) * LAB MICROBIOLOGY - HPF HISTORICAL(Performed 07/20/2011) Results * DERMATOPATHOLOGY (01/27/2018 12:00 AM CDT) Only the most recent of4 resultswithin the time period is included. Case Report Dermatopathology Report ? Case: [id number] ? Authorizing Provider: ??Kumar Reno MD ?Collected: ? 01/27/2018 12:00 AM ? Pathologist: ? Rhea Gayle MD ? Received: ?01/30/2018 11:34 AM ? Specimen: ?Skin, right scapula tip ? 4:54 PM CDT DERMATOPATHOLOGY LABORATORY Final Diagnosis Specimen A. SKIN, right scapula tip: EPIDERMOID CYST (L72.0) 4:54 PM T DERMATOPATHOLOGY LABORATORY Clinical History Epi cyst. 4:54 PM T DERMATOPATHOLOGY LABORATORY Gross Description Specimen A: Received is one formalin filled container labeled with the patient's name and designated right scapula tip. The specimen consists of a [id number], [id number] excision of skin. The specimen is serially sectioned and a new accounts representative section is submitted in cassette 1. Jar 1. 4:54 PM T DERMATOPATHOLOGY LABORATORY Microscopic Description Specimen A. SKIN, right scapula tip: Within the dermis, there is a space lined by epithelium that resembles normal epidermis and the infundibular portion of the hair follicle. 4:54 PM T DERMATOPATHOLOGY LABORATORY Disclaimer An external and internal positive and negative controls are appropriate for the histochemical, immunohistochemical and immunofluorescence stain(s) in this case (if any), except where stated explicitly. The performance characteristics of the stain(s) cited in this report were developed and its performance characteristic determined by the Dermatopathology Laboratory at [facility]. These tests need not be, and therefore are not, approved by the [place] Food and Drug Administration. The tests are used for clinical purposes. Billing Codes Specimen Charges Stain Charges 63362 1 4:54 PM CDT DERMATOPATHOLOGY LABORATORY Embedded Images 4:54 PM CDT DERMATOPATHOLOGY LABORATORY Pathology/Cytolog y TISSUE SPECIMEN FROM SKIN / Unknown 01/27/2018 01/30/2018 11:34 AM CDT Kumar Reno MD LAB - PATHOLOGY/CYTO LOGY ORDERABLES DERMATOPATHOLOGY LABORATORY [facility] - Department of Dermatology [address] [place] [address], 5th Floor Lab [address] [phone] * EKG 12-LEAD (08/06/2013) Only the most recent of3 resultswithin the time period is included. Edgar Geiger MD ECG ORDERABLES [facility] RESULT SCAN * ECHOCARDIOGRAM 2D WITH DOPPLER (02/07/2013 2:35 PM CDT) Narrative Kala Montes De Oca - 02/07/2013 2:35 PM CDT Kala Montes De Oca ? 02/07/2013 ??2:35 PM TRANSTHORACIC ECHOCARDIOGRAM REPORT Name: ?? Drew Pak Date of Test: ? 02/06/2013 Age: ?72 y.o. : ?1940 Sex: ?male Blood Pressure: ??130/76 Spot Washer: ??SHAHRZAD Chacon Ordering Physician: ?? Dr. Low [...] ATRIAL/VENTRICULAR DILATION - MILD TO MODERATE Interpreting Filemaker Developer: ?? Edgar Geiger MD, [facility] Procedure Note Kala Montes De Oca - 02/07/2013 2:23 PM CDT TRANSTHORACIC ECHOCARDIOGRAM REPORT Name: Drew Pak Date of Test: 02/06/2013 Age: 72 y.o. : 1940 Sex: male Blood Pressure: 130/76 Spot Washer: SHAHRZAD Chacon Ordering Physician: Dr. Low Time [...] ATRIAL/VENTRICULAR DILATION - MILD TO MODERATE Interpreting Filemaker Developer: Edgar Geiger MD, [facility] Edgar Geiger MD ECHO ORDERABLES * XR TIBIA FIBULA RIGHT 2VW (11/27/2012 10:38 AM REFRIGERATION SYSTEM INSTALLER) Only the most recent of5 resultswithin the time period is included. Anatomical Region Laterality Modality Lower Extremity Other Impressions 11/27/2012 2:14 PM REFRIGERATION SYSTEM INSTALLER Impression: Status post ORIF of tibial pilon fracture, unchanged alignment. Report dictated by Elia Daugherty MD. I, Dr. DONALD ODOM M.D. have personally reviewed and interpreted this examination/study. This report was electronically signed by DONALD ODOM M.D. ??on 11/27/2012 2:14 PM . Narrative 11/27/2012 2:14 PM REFRIGERATION SYSTEM INSTALLER Exam: Tibia and fibula, 2 views Comparison: ??Tibia and fibula, 2 views 11/13/2012 History: ??rt tibial plafond fx Findings: The patient is status post ORIF of a tibial pilon fracture without interval change in alignment. The hardware is intact and in unchanged position. Mild soft tissue swelling persists. Lucencies through the tibial shaft representing sites of prior instrumentation are unchanged. Procedure Note Donald Odom MD - 01/01/2018 Exam: Tibia and fibula, 2 views Comparison: Tibia and fibula, 2 views 11/13/2012 History: rt tibial plafond fx Findings: The patient is status post ORIF of a tibial pilon fracture withoutinterval change in alignment. The hardware is intact and in unchangedposition. Mild soft tissue swelling persists. Lucencies through the tibialshaft representing sites of prior instrumentation are unchanged. IMPRESSION Impression: Status post ORIF of tibial pilon fracture, unchanged alignment. Report dictated by Elia Daugherty MD. I, Dr. DONALD ODOM M.D. have personally reviewed and interpreted thisexamination/study. This report was electronically signed by DONALD ODOM M.D. on 11/27/20122:14 PM . Pasha Juarez MD DIAGNOSTIC IMAGING O RDERABLES * XR ANKLE RIGHT 3VW OR MORE (11/27/2012 10:38 AM REFRIGERATION SYSTEM INSTALLER) Only the most recent of6 resultswithin the time period is included. Anatomical Region Laterality Modality Lower Extremity Other Impressions 11/27/2012 2:14 PM REFRIGERATION SYSTEM INSTALLER Impression: Status post ORIF of tibial pilon fracture, unchanged alignment. Report dictated by Elia Daugherty MD. I, Dr. DONALD ODOM M.D. have personally reviewed and interpreted this examination/study. This report was electronically signed by DONALD ODOM M.D. ??on 11/27/2012 2:14 PM . Narrative 11/27/2012 2:14 PM REFRIGERATION SYSTEM INSTALLER Exam: Right ankle, 3 views Comparison: ??Right ankle, 3 views 11/13/2012 History: ??rt tibial plafond fx Findings: The patient is status post ORIF of a tibial pilon fracture with posttraumatic central bone loss. No interval change in alignment. The hardware is intact and in unchanged position. Mild soft tissue swelling persists. Procedure Note Donald Odom MD - 01/01/2018 Exam: Right ankle, 3 views Comparison: Right ankle, 3 views 11/13/2012 History: rt tibial plafond fx Findings: The patient is status post ORIF of a tibial pilon fracture withposttraumatic central bone loss. No interval change in alignment. Thehardware is intact and in unchanged position. Mild soft tissue swellingpersists. IMPRESSION Impression: Status post ORIF of tibial pilon fracture, unchanged alignment. Report dictated by Elia Daugherty MD. I, Dr. DONALD ODMO M.D. have personally reviewed and interpreted thisexamination/study. This report was electronically signed by DONALD ODOM M.D. on 11/27/20122:14 PM . Pasha Juarez MD DIAGNOSTIC IMAGING O RDERABLES * CT ANKLE RIGHT WO CONTRAST (11/20/2012 1:31 PM REFRIGERATION SYSTEM INSTALLER) Anatomical Region Laterality Modality Lower Extremity Other Impressions 11/21/2012 5:25 PM REFRIGERATION SYSTEM INSTALLER IMPRESSION: 1. Status post ORIF of a multipart tibial pilon fracture with persistence of the fracture lines/gaps. 2. 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 I, Dr. DONALD ODOM M.D. have personally reviewed and interpreted this examination/study. This report was electronically signed by DONALD ODOM M.D. ??on 11/21/2012 5:25 PM . Narrative 11/21/2012 5:25 [address] INSTALLER CT EXTREMITY OF THE RIGHT ANKLE, NONCONTRAST Clinical History: 72-year-old male 1.5 years status post ORIF of tibial pilon fracture with persistent pain. Preop exam prior to planned hardware removal with tibiotalar ankle fusion. TECHNIQUE: 0.6-mm contiguous axial images were obtained through right ankle in bone and soft tissue window algorithms. Post processing reconstructions were obtained in the coronal and sagittal planes. FINDINGS: The patient is status post ORIF of a multipart tibial pilon fracture. The tibial fracture lines remain apparent with a 2-3 mm of gap between the the major fracture fragments. There is joint space narrowing at the tibiotalar joint and subchondral cyst formation within the talus representing posttraumatic degenerative change. The remaining osseous structures are intact and well aligned. No focal soft tissue swelling or acute osteolysis. Procedure Note Donald Odom MD - 01/01/2018 CT EXTREMITY OF THE RIGHT ANKLE, NONCONTRAST Clinical History: 72-year-old male 1.5 years status post ORIF of tibialpilon fracture with persistent pain. Preop exam prior to planned hardwareremoval with tibiotalar ankle fusion. TECHNIQUE: 0.6-mm contiguous axial images were obtained through rightankle in bone and soft tissue window algorithms. Post processingreconstructions were obtained in the coronal and sagittal planes. FINDINGS: The patient is status post ORIF of a multipart tibial pilonfracture. The tibial fracture lines remain apparent with a 2-3 mm of gapbetween the the major fracture fragments. There is joint space narrowingat the tibiotalar joint and subchondral cyst formation within the talus representing posttraumaticdegenerative change. The remaining osseous structures are intact and wellaligned. No focal soft tissue swelling or acute osteolysis. IMPRESSION IMPRESSION: 1. Status post ORIF of a multipart tibial pilon fracture with persistenceof the fracture lines/gaps. 2. 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 I, Dr. DONALD ODOM M.D. have personally reviewed and interpreted thisexamination/study. This report was electronically signed by DONALD ODOM M.D. on 11/21/20125:25 PM . Elgin Francisco DO CT ORDERABLES * EKG 12-LEAD MAGNET (04/18/2012 2:30 PM CDT) Narrative [facility] - 04/18/2012 2:30 PM CDT A scan was deleted from the Results section by Yesi Cantu [[id number]] on 04/18/2012 at ??2:30 PM (File: [id number]) Procedure Note Provider, MD Giovanni - 12/18/2018 A scan was deleted from the Results section by Yesi Cantu [[id number]] on 04/18/2012 at2:30 PM (File:[id number]) Baltazar Waldrop MD ECG ORDERABLES [facility] * XR BONE LENGTH SCANOGRAM (04/18/2012 9:44 AM CDT) Anatomical Region Laterality Modality Lower Extremity, Pelvis Other Impressions 04/20/2012 5:54 PM CDT Impression: Slight medialization of the load bearing axis on the right. Internally stabilized comminuted right tibia pilon fracture. I, Dr. Theodore Long, have personally reviewed and interpreted this examination. Narrative 04/20/2012 5:54 PM CDT Bone length scanogram, 4 views total History: 71-year-old male with right hip pain. Comparison: Right tib-fib radiograph dated 03/28/12 Findings: There is slight medialization of the load bearing axis in right lower extremity compared to the normal neutral axis on the left. ??The hip joint spaces themselves are unremarkable. The patient is status post ORIF of a right distal tibia comminuted intra- articular fracture which is unchanged in alignment with intact hardware since prior exam. There are extensive in surgical clips in the left medial distal thigh and upper leg. ??The left knee joint is unremarkable. Procedure Note Theodore Long MD - 01/01/2018 Bone length scanogram, 4 views total History: 71-year-old male with right hip pain. Comparison: Right tib-fib radiograph dated 03/28/12 Findings: There is slight medialization of the load bearing axis in right lowerextremity compared to the normal neutral axis on the left. The hip jointspaces themselves are unremarkable. The patient is status post ORIF of a right distal tibia comminutedintra- articular fracture which is unchanged in alignment with intacthardware since prior exam. There are extensive in surgical clips in the left medial distal thigh andupper leg. The left knee joint is unremarkable. IMPRESSION Impression: Slight medialization of the load bearing axis on the right. Internally stabilized comminuted right tibia pilon fracture. I, Dr. Theodore Long, have personally reviewed and interpreted thisexamination. Pasha Juarez MD DIAGNOSTIC IMAGING O RDERABLES * (ABNORMAL) GLUCOSE ACCUCHECK (04/07/2012 8:52 AM CDT) Only the most recent of2 resultswithin the time period is included. Glucose, Fingerstick 114(H) 70 - 110 MG/DL [facility] Comment:PERFORMED BY: DAIJA SALGADO 04/07/2012 8:52 AM CDT 04/07/2012 9:13 AM CDT Pasha Juarez MD LAB - CHEMISTRY [facility]IS[facility] [address] [phone] * LAB MICROBIOLOGY - HPF HISTORICAL (07/20/2011 6:53 AM CDT) 07/20/2011 6:53 AM CDT Narrative [facility] - 07/20/2011 6:53 AM CDT Pasha Juarez MD LAB - MICROBIOLOGY O RDERABLES [facility] Care Teams Publisher Assistant Relationship Specialty Start Date End Date Say Low MD [address] [place] [phone] PCP - General Internal Medicine 08/14/12 Edgar Geiger MD Cardiovascular Disease 08/14/12
--- OUTSIDE RECORDS SUMMARY | 2024-09-22 18:59 | XMS_ITS | Encounter Summary ---
Author Organization [facility] Address [address] [place] [address] Care Team Providers Care Wire Fence Builder Name Role Phone Edgar Geiger MD Unavailable Unavailable Say Low MD Primary Care Provider [phone] Encounter Details Date Type Department Care Team (Late st Contact Info) Description 01/30/2018 Lab Requisition [facility] DermPath Lab [address] [facility], [place] [id number] Kumar Reno MD RETIRED Social History Tobacco Use Types Packs/Day Years [...] Procedure Name Priority Date/Time Associated Diagnosis Comments DERMATOPATHOLOGY Routine 01/27/2018 12:0 0 AM CDT documented in this encounter Results * DERMATOPATHOLOGY (01/27/2018 12:00 AM CDT) Case Report Dermatopathology Report ? Case: [id number] ? Authorizing Provider: ??Kumar Reno MD ?Collected: ? 01/27/2018 12:00 AM ? Pathologist: ? Rhea Gayle MD ? Received: ?01/30/2018 11:34 AM ? Specimen: ?Skin, right scapula tip ? 4:54 PM T DERMATOPATHOLOGY LABORATORY Final Diagnosis Specimen A. SKIN, right scapula tip: EPIDERMOID CYST (L72.0) 4:54 PM T DERMATOPATHOLOGY LABORATORY Clinical History Epi cyst. 4:54 PM T DERMATOPATHOLOGY LABORATORY Gross Description Specimen A: Received is one formalin filled container labeled with the patient's name and designated right scapula tip. The specimen consists of a [id number], [id number] excision of skin. The specimen is serially sectioned and a manufacturer representative section is submitted in cassette 1. [...] characteristic determined by the Dermatopathology Laboratory at [facility]. These tests need not be, and therefore are not, approved by the [place] Food and Drug Administration. The tests are used for clinical purposes. Billing Codes Specimen Charges Stain Charges 97296 1 8 4:54 PM CDT DERMATOPATHOLOGY LABORATORY Embedded Images 8 4:54 PM CDT DERMATOPATHOLOGY LABORATORY Pathology/Cytolog y TISSUE SPECIMEN FROM SKIN / Unknown 01/27/2018 01/30/2018 11:34 AM CDT Kumar Reno MD LAB - PATHOLOGY/CYTO LOGY ORDERABLES DERMATOPATHOLOGY LABORATORY [facility] - Department of Dermatology [address] [place] [address] [address] [phone] documented in this encounter Visit Diagnoses Not on filedocumented in this encounter Care Teams Wire Fence Builder Relationship Specialty Start Date End Date Say Low MD [address] [place] [phone] PCP - General Internal Medicine 08/14/12 Edgar Geiger MD Cardiovascular Disease 08/14/12 documented as of this encounter
--- OUTSIDE RECORDS SUMMARY | 2024-09-22 18:59 | XMS_ITS | Encounter Summary ---
Author Organization [facility] Address [address] [place] [address] Care Team Providers Care Dining Server Name Role Phone Edgar Geiger MD Unavailable Unavailable Say Low MD Primary Care Provider [phone] Reason for Visit * Reason Comments Coronary Artery Disease 6 month f/u; pat ient reports no new sx Encounter Details Date Type Department Care Team (Late st Contact Info) Description 09/04/2014 1:15 PM PODIATRIST ASSISTANT Office Visit [facility] [address] [place] [id number] Edgar Geiger MD RETIRED Chronic diastolic heart failure (HCC) (Primary Dx); CHF (congestive heart failure) (HCC); Edema; CAD (coronary artery disease); Morbid obesity (HCC); CABG x 3 - vein graft to [...] Sign Reading Time Taken Comments Blood Pressure 182/89 09/04/2014 1:31 PM PODIATRIST ASSISTANT Pulse 57 09/04/2014 1:31 PM PODIATRIST ASSISTANT Temperature - - Respiratory Rate - - Oxygen Saturation - - Inhaled Oxygen Concentration - - Weight 113.4 kg (250 lb) 09/04/2014 1:31 PM PODIATRIST ASSISTANT Height 180.3 cm (5' 11 ) 09/04/2014 1:31 PM PODIATRIST ASSISTANT Body Mass Index 34.87 09/04/2014 1:31 PM PODIATRIST ASSISTANT documented in this encounter Progress Notes * Karley Mccauley - 09/10/2014 10:25 AM CST Per documentation and CMS guidelines changed the sequencing of the diagnoses and changed to 428.32 (Chronic Diastolic HF) and 428.0 (CHF) for the documented relationship. ATRIST ASSISTANT * Edgar Geiger MD - 09/04/2014 1:51 PM CST Cardiology Visit Note Drew Pak PCP: Say Low Chief Complaint Patient presents with ??? Coronary Artery Disease 6 month f/u; patient reports no new sx No Known Allergies SUBJECTIVE: Drew G Mellisa who is a 74 y.o. male seen for a follow up visit for Follow-up congestive heart failure. ELEVATED BP WITH HIGH SALT DIET EATS OUT Patient denies chest pain, shortness of breath, [...] Social History Main Topics ??? Smoking status: Former Smoker ??? Smokeless tobacco: Not on file Comment: QUIT SMOKING 30 YEARS AGO ??? Alcohol Use: Yes ??? Drug Use: No ??? Sexual Activity: Not on file Other Topics Concern ??? Not on file Social History Narrative Outpatient Encounter Prescriptions as of 09/04/2014 Medication Sig Dispense Refill ??? olmesartan-hydrochlorothiazide (BENICAR HCT) 40-25 MG tablet Take 1 Tab by mouth once daily. 30Tab 3 ??? carvedilol (COREG) 12.5 MG tablet TAKE 1 TABLET TWICE A DAY 60 Tab 5 ??? Ascorbic Acid (VITAMIN C) 500 MG CAPS Take 500 mg by mouth once daily. ??? omeprazole (PRILOSEC OTC) 20 MG tablet Take 20 mg by mouth daily before breakfast. ??? metFORMIN (GLUCOPHAGE) 1000 MG tablet Take 1,000 mg by mouth 2 times daily with morning and evening meal. ??? [place]-3 Fatty Acids (TH OMEGA-3 FISH OIL) 1000 MG CAPS Take by mouth 2 times daily. ??? allopurinol (ZYLOPRIM) TABS Take 150 mg by mouth once daily after breakfast. ??? Aspirin 81 MG TBEC Take by mouth. ??? simvastatin (ZOCOR) 40 MG tablet Take 40 mg by mouth once daily. ??? [DISCONTINUED] BENICAR HCT 40-12.5 MG tablet TAKE 1 TAB BY MOUTH ONCE DAILY. 30 Tab 4 No facility-administered encounter medications on file as of 09/04/2014. No Known Allergies REVIEW OF SYSTEMS: Reviewed [...] unremarkable except as mentioned above. OBJECTIVE: BP 182/89 Pulse 57 Wt 113.399 kg (250 lb) BMI 34.88 kg/m2 BP Readings from Last 3 Encounters: 09/04/14 182/89 02/27/14 138/84 08/06/13 158/75 Pulse Readings from Last 3 Encounters: 09/04/14 57 02/27/14 84 11/04/13 70 Wt Readings from Last 3 Encounters: 09/04/14 113.399 kg (250 lb) 02/27/14 117.935 kg (260 lb) 08/06/13 115.667 kg (255 lb) Vitals: 09/04/14 1331 BP: 182/89 Pulse: 57 Weight: 113.399 kg (250 lb) DATA: No results found for this basename: WBC, HGB, HCT, INR, in the last 26114 hours No results found for this basename: SODIUM, POTASSIUM, CHLORIDE, CO2, BUN, CREATININE, GLUCOSE, CALCIUM, in the last 04509 hours No results found for this basename: BNP, in the last 57410 hours No results found for this basename: CHOL, in the last 65232 hours No results found for this basename: DIGOXIN, in the last 76128 hours No results found for this basename: TROPONIN, in the last 20752 hours PHYSICAL FINDINGS: General appearance: Alert, cooperative. [...] or rubs Extremities: No clubbing, cyanosis. EDEMA 1-2+ [place] Labs: No results found for this basename: CHOL, TRIG, HDL, LDLCALC, in the last 84205 hours No results found for this basename: ALBUMIN, ALKPHOS, ALT, AST, TBIL, DBIL, TPROT, in the last 03282 hours No results found for this basename: HGBA1C, in the last 40504 hours No results found for this basename: TSH, in the last 78002 hours No results found for this basename: T4FREE, in the last 64133 hours Recent CV procedures Today's EKG: NO Cardiac Procedure: Holter: NO Stress: NO ECHO: YES 1. A TECHNICALLY DIFFICULT STUDY 2. ADEQUATE LEFT VENTRICULAR FUNCTION 3. NORMAL EJECTION FRACTION 50% - 54% 4. LEFT VENTRICULAR DIASTOLIC DYSFUNCTION 5. MILD AORTIC INSUFFICIENCY 6. 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 RIGHT ATRIAL/VENTRICULAR DILATION - MILD TO MODERATE Interpreting Full Stack Php Developer: Edgar Geiger MD, [facility] Cath/PCI: NO ASSESSMENT: CHF STABLE , chronic diastolic heart failure : it is moderate IMPROVED EDEMA: Bilateral, moderate WEIGHT: Morbid Obesity SHORTNESS OF BREATH: cardiac STABLE CORONARY DISEASE POST CABG and x3 2004 PLAN: MEDICATION CHANGE(S): UP BENICAR 40/25 HCT TESTING: NONE RECOMMENDATION(S): TAKE ALL MEDICATIONS: FOLLOW [...] or need additional information. Edgar Geiger MD 09/04/14 1:54 PM Cc Say Low ATRIST ASSISTANT documented in this encounter Plan of Treatment Not on file documented as of this encounter Visit Diagnoses Diagnosis Chronic diastolic heart failure (HCC)- Primary Chronic diastolic heart failure CHF (congestive heart failure) (HCC) Congestive heart failure, unspecified Edema CAD (coronary artery disease) Coronary atherosclerosis of unspecified type of vessel, napaimute or graft Morbid obesity (HCC) Morbid obesity CABG x 3 - vein graft to 1st OM, vein graft to 2nd OM, vein graft to PDA Postsurgical aortocoronary bypass status documented in this encounter Care Teams Dining Server Relationship Specialty Start Date End Date Say Low MD [address] [place] [address] PCP - General Internal Medicine 08/14/12 Edgar Geiger MD Cardiovascular Disease 08/14/12 documented as of this encounter
--- OUTSIDE RECORDS SUMMARY | 2024-09-22 18:59 | XMS_ITS | Encounter Summary ---
Author Organization [facility] Address [address] [place] [address] Care Team Providers Care Roll Grinder Operator Name Role Phone Edgar Geiger MD Unavailable Unavailable Say Low MD Primary Care Provider [phone] Reason for Visit * Reason Onset Date Comments Weakness 02/03/2015 Fatigue 02/03/2015 Weight loss 02/03/2015 Anorexia 02/03/2015 Blood Pressure 02/03/2015 Encounter Details Date Type Department Care Team (Late st Contact Info) Description 02/03/2015 Telephone [facility] [address] [place] [phone] Edgar Geiger MD RETIRED Weakness; Fatigue; Weight loss; Anorexia; Blood Pressure Social History Tobacco Use Types Packs/Day Years [...] encounter Miscellaneous Notes * Telephone Encounter - Makenzie Hardy - 02/03/2015 4:29 PM CDT Spoke to patient and he verbalizes understanding * Telephone Encounter - Ira Dumont MD - 02/03/2015 4:23 PM CDT Decrease coreg to 3.125 mg po qd Cut benicar/hctz in 10/04 * Telephone Encounter - GarciaYevgeniy duong - 02/03/2015 12:50 PM CDT Pt called stating that he quit drinking alcohol on August 03. Pt stated that at that time he wasweighing around 265lb. Pt stated now he weighs about 220lb. Pt has lost 45lbs within 6 months. Pt stated that he took his blood pressure this morning and it was 78/54 pulse was in the 60s. Pt stated that his blood pressure has never been this low. Pt stated that he has been very busy and working a lot, so because of that he has not been eating very much. Pt stated that he feels weak and very tired. Pt stated that he feels that due to him losing the weight that he may be taking too much blood pressure medication. Pt was informed to stay hydrated. Please advise: Pt's number is . documented in this encounter Plan of Treatment Not on file documented as of this encounter Visit Diagnoses Not on filedocumented in this encounter Care Teams Roll Grinder Operator Relationship Specialty Start Date End Date Say Low MD [address] [place] [address] PCP - General Internal Medicine 08/14/12 Edgar Geiger MD Cardiovascular Disease 08/14/12 documented as of this encounter
--- OUTSIDE RECORDS SUMMARY | 2024-09-22 18:59 | XMS_ITS | Encounter Summary ---
Author Organization [facility] Address [address] [place] [address] Care Team Providers Care Deputy Assessor Name Role Phone Edgar Geiger MD Unavailable Unavailable Say Low MD Primary Care Provider [phone] Reason for Visit * Reason Comments Refill Request Encounter Details Date Type Department Care Team (Late st Contact Info) Description 03/28/2014 Refill [facility] [address] [place] [id number] Edgar Geiger MD RETIRED Refill Request Social [...] encounter Miscellaneous Notes * Telephone Encounter - Sagrario Barillas - 03/28/2014 10:41 AM CDT Next appt 09/04/14 baljit/Juanjo documented in this encounter Plan of Treatment Not on file documented as of this encounter Visit Diagnoses Not on filedocumented in this encounter Care Teams Deputy Assessor Relationship Specialty Start Date End Date Say Low MD [address] [place] [address] PCP - General Internal Medicine 08/14/12 Edgar Geiger MD Cardiovascular Disease 08/14/12 documented as of this encounter
--- OUTSIDE RECORDS SUMMARY | 2024-09-22 18:59 | XMS_ITS | Encounter Summary ---
Author Organization [facility] Address [address] [place] [address] Care Team Providers Care Java Technical Manager Name Role Phone Edgar Geiger MD Unavailable Unavailable Say Low MD Primary Care Provider [phone] Encounter Details Date Type Department Care Team (Late st Contact Info) Description 01/12/2018 Lab Requisition [facility] [address] [facility], [place] [id number] Kumar Reno MD RETIRED Social History Tobacco [...] Priority Date/Time Associated Diagnosis Comments DERMATOPATHOLOGY Routine 01/11/2018 12:0 0 AM CDT documented in this encounter Results * DERMATOPATHOLOGY (01/11/2018 12:00 AM CDT) Case Report Dermatopathology Report ? Case: [id number] ? Authorizing Provider: ??Kumar Reno MD ?Collected: ? 01/11/2018 12:00 AM ? Pathologist: ? Rhea Gayle MD ? Received: ?01/12/2018 11:39 AM ? Specimen: ?Skin, right infraclavicular ? 8 6:41 PM [facility] Final Diagnosis Specimen A. SKIN, right infraclavicular: BENIGN VERRUCOUS KERATOSIS, INFLAMED (L82.1) 8 6:41 PM [facility] Clinical History SK. 8 6:41 PM [facility] Gross Description Specimen: A: Received is one formalin filled container labeled with the patient's name and designated right infraclavicular. The specimen consists of a shave biopsy measuring [id number]. Jar 0. 8 6:41 PM [facility] Microscopic Description Specimen A. SKIN, right infraclavicular: Sections show hyperkeratosis, papillomatosis, hypergranulosis, and acanthosis. Inflammatory cells are present within the dermis. These histological findings can be seen in a verruca vulgaris or a seborrheic keratosis. 8 6:41 PM [facility] Disclaimer An external and internal positive and negative controls are appropriate for the histochemical, immunohistochemical and immunofluorescence stain(s) in this case (if any), except where stated explicitly. The performance characteristics of the stain(s) cited in this report were developed and its performance characteristic determined by the Dermatopathology Laboratory at [facility]. These tests need not be, and therefore are not, approved by the [place] Food and Drug Administration. The tests are used for clinical purposes. Billing Codes Specimen Charges Stain Charges 17654 1 8 6:41 PM CDT DERMATOPATHOLOGY LABORATORY Embedded Images 8 6:41 PM CDT DERMATOPATHOLOGY LABORATORY Pathology/Cytolog y TISSUE SPECIMEN FROM SKIN / Unknown 01/11/2018 01/12/2018 11:39 AM CDT Kumar Reno MD LAB - PATHOLOGY/CYTO LOGY ORDERABLES DERMATOPATHOLOGY LABORATORY [facility] - Department of Dermatology [address] [place] [address] 5th Floor Lab [address] [phone] documented in this encounter Visit Diagnoses Not on filedocumented in this encounter Care Teams Java Technical Manager Relationship Specialty Start Date End Date Say Low MD [address] [place] [phone] PCP - General Internal Medicine 08/14/12 Edgar Geiger MD Cardiovascular Disease 08/14/12 documented as of this encounter
--- OUTSIDE RECORDS SUMMARY | 2024-09-22 18:59 | XMS_ITS | Encounter Summary ---
Author Organization [facility] Address [address] [place] [address] Care Team Providers Care Tool Sharpener Name Role Phone Edgar Geiger MD Unavailable Unavailable Say Low MD Primary Care Provider [phone] Reason for Visit * Reason Comments Refill Request Encounter Details Date Type Department Care Team (Late st Contact Info) Description 03/30/2013 Refill [facility] [address] [place] [address] Edgar Geiger MD RETIRED Refill Request Social [...] on filedocumented in this encounter Care Teams Tool Sharpener Relationship Specialty Start Date End Date Say Low MD [address] [place] [address] PCP - General Internal Medicine 08/14/12 Edgar Geiger MD Cardiovascular Disease 08/14/12 documented as of this encounter
--- OUTSIDE RECORDS SUMMARY | 2024-09-22 18:59 | XMS_ITS | Encounter Summary ---
Author Organization [facility] Address [address] [place] [address] Care Team Providers Care Contracts Director Name Role Phone Edgar Geiger MD Unavailable Unavailable Say Low MD Primary Care Provider [phone] Reason for Visit * Reason Comments Follow-up 6 month fu Encounter Details Date Type Department Care Team (Late st Contact Info) Description 03/12/2015 1:15 PM CDT Office Visit [facility] [address] [place] [phone] Edgar Geiger MD RETIRED Coronary artery disease involving [place] coronary artery without angina pectoris (Primary Dx); 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 Follow-up 6 month fu No Known Allergies SUBJECTIVE: Drew Pak who is a 74 y.o. male seen for a follow up visit for Follow-up congestive heart failure. ELEVATED BP WITH HIGH SALT DIET EATS OUT - still LOSING WT ; Patient denies chest pain, shortness of breath, [...] SMOKING 30 YEARS AGO ??? Alcohol Use: No ??? Drug Use: No ??? Sexual Activity: Not on file Other Topics Concern ??? Not on file Social History Narrative Outpatient Encounter Prescriptions as of 03/12/2015 Medication Sig Dispense Refill ??? olmesartan (BENICAR) 40 MG tablet Take 0.5 Tabs by mouth once daily 90 Tab 3 ??? carvedilol (COREG) 3.125 MG tablet Take 1 Tab by mouth 2 times daily with morning and evening meal. 60 Tab 5 ??? omeprazole (PRILOSEC OTC) 20 MG tablet Take 20 mg by mouth daily before breakfast. ??? metFORMIN (GLUCOPHAGE) 1000 MG tablet Take 1,000 mg by mouth 2 times daily with morning and evening meal. ??? [place]-3 Fatty Acids (TH OMEGA-3 FISH OIL) 1000 MG CAPS Take by mouth 2 times daily. ??? allopurinol (ZYLOPRIM) TABS Take 150 mg by mouth once daily after breakfast. ??? Aspirin 81 MG TBEC Take by mouth. ??? simvastatin (ZOCOR) 40 MG tablet Take 40 mg by mouth once daily. ??? [DISCONTINUED] BENICAR HCT 40-12.5 MG tablet TAKE 1 TABLET BY MOUTH ONCE DAILY. 30 Tab 2 ??? [DISCONTINUED] Ascorbic Acid (VITAMIN C) 500 MG CAPS Take 500 mg by mouth once daily. No facility-administered encounter medications on file as of 03/12/2015. No Known Allergies REVIEW OF SYSTEMS: Reviewed [...] unremarkable except as mentioned above. OBJECTIVE: BP 120/72 mmHg Pulse 72 Wt 104.781 kg (231 lb) BMI 32.23 kg/m2 BP Readings from Last 3 Encounters: 03/12/15 120/72 09/04/14 182/89 02/27/14 138/84 Pulse Readings from Last 3 Encounters: 03/12/15 72 09/04/14 57 02/27/14 84 Wt Readings from Last 3 Encounters: 03/12/15 104.781 kg (231 lb) 09/04/14 113.399 kg (250 lb) 02/27/14 117.935 kg (260 lb) Vitals: 03/12/15 1318 BP: 120/72 Pulse: 72 Weight: 104.781 kg (231 lb) DATA: No results for input(s): WBC, HGB, HCT, INR in the last 20053 hours. No results for input(s): SODIUM, POTASSIUM, CHLORIDE, CO2, BUN, CREATININE, GLUCOSE, CALCIUM in thelast 03457 hours. No results for input(s): BNP in the last 08450 hours. No results for input(s): CHOL in the last 15983 hours. No results for input(s): DIGOXIN in the last 12297 hours. No results forinput(s): TROPONIN in the last 02040 hours. PHYSICAL FINDINGS: General appearance: Alert, cooperative. DISTRESS [...] or rubs Extremities: No clubbing, cyanosis. EDEMA -0 Labs: No results for input(s): CHOL, TRIG, HDL, LDLCALC in the last 22302 hours. No results for input(s): ALBUMIN, ALKPHOS, ALT, AST, TBIL, DBIL, TPROT in the last 48166 hours. No results for input(s): HGBA1C in the last 32930 hours. No results for input(s): TSH in the last 70376 hours. No results for input(s): T4FREE in the last 43806 hours. Recent CV procedures Today's EKG: NO Cardiac Procedure: Holter: NO Stress: NO ECHO: YES 1. A TECHNICALLY DIFFICULT STUDY 2. ADEQUATE LEFT VENTRICULAR FUNCTION 3. NORMAL EJECTION FRACTION 50% - 54% 4. LEFT VENTRICULAR DIASTOLIC DYSFUNCTION 5. MILD AORTIC INSUFFICIENCY 6. 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 RIGHT ATRIAL/VENTRICULAR DILATION - MILD TO MODERATE Interpreting Warhead Maintenance Specialist: Edgar Geiger MD, [facility] Cath/PCI: NO ASSESSMENT: RESOLVED CHF STABLE , chronic diastolic heart failure : IMPROVED EDEMA: Bilateral, moderate WEIGHT:Obesity SHORTNESS OF BREATH: cardiac STABLE CORONARY DISEASE POST CABG and x3 2004 PLAN: MEDICATION CHANGE(S): TRADE TO BENICAR 20QD TESTING: NONE RECOMMENDATION(S): TAKE ALL MEDICATIONS: FOLLOW [...] or need additional information. 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
--- OUTSIDE RECORDS SUMMARY | 2024-09-22 18:59 | XMS_ITS | Encounter Summary ---
Author Organization [facility] Address [address] [place] [address] Care Team Providers Care Pot Reliner Name Role Phone Edgar Geiger MD Unavailable Unavailable Say Low MD Primary Care Provider [phone] Reason for Visit * Reason Onset Date Comments Results 02/06/2013 Encounter Details Date Type Department Care Team (Late st Contact Info) Description 02/06/2013 Telephone [facility] [address] [place] [phone] Edgar Geiger MD RETIRED Results Social History Tobacco Use Types Packs/Day Years [...] * Telephone Encounter - Ivelisse Victor - 02/07/2013 12:49 PM CDT Provided results of Echo to Danielle Amadorner (patient's girlfriend/partner)- no significant changes. Advised to continue current medications, keep scheduled follow up appointment and call if new sx develop. * Telephone Encounter - Edgar Geiger MD - 02/06/2013 1:35 PM CDT TECH DIFF. ADEQ LV 50-55% EF DIASTOLIC DYS. MILD AI. ASA ANEURYSM NOTED. ABNORMAL RESULT BUT UNCHANGED OR NO SIGNIFICANT CHANGES. NO CHANGE TO CURRENT MEDICAL THERAPY AT THIS TIME. CALL BACK IF NEW SYMPTOMS DEVELOP. * Telephone Encounter - Kala Montes De Oca - 02/06/2013 9:40 AM CDT Echo to read documented in this encounter Plan of Treatment Not on file documented as of this encounter Visit Diagnoses Not on filedocumented in this encounter Care Teams Pot Reliner Relationship Specialty Start Date End Date Say Low MD [address] [place] [address] PCP - General Internal Medicine 08/14/12 Edgar Geiger MD Cardiovascular Disease 08/14/12 documented as of this encounter
--- OUTSIDE RECORDS SUMMARY | 2024-09-22 18:59 | XMS_ITS | Encounter Summary ---
Author Organization [facility] Address [address] [place] [address] Care Team Providers Care Feather Edger Name Role Phone Edgar Geiger MD Unavailable Unavailable Say Low MD Primary Care Provider [phone] Reason for Visit * Reason Comments Echocardiogram Encounter Details Date Type Department Care Team (Latest Contact Info) Description 02/06/2013 9:00 AM CDT Procedure visit [facility] [address] [place], [place] [id number] CAD (coronary artery disease) Social History Tobacco Use Types Packs/Day Years Used Date Smoking Tobacco: Never Alcohol Use Standard Drinks/Week Comments Yes 0 (1 standard drink = 0.6 oz pur e alcohol) Sex and Gender Information Value Date Recorded Sex Assigned at Not on file Gender Identity Not on file Sexual Orientation Not on file documented as of this encounter Procedure Notes * Kala Montes De Oca - 02/07/2013 2:23 PM CDTAssociated Order(s): ECHOCARDIOGRAM 2D WITH DOPPLER Procedure(s): ECHOCARDIOGRAM 2D WITH DOPPLER Pre-Procedure Diagnose(s): CAD (coronary artery disease) TRANSTHORACIC ECHOCARDIOGRAM REPORT Name: Drew Pak Date of Test: 02/06/2013 Age: 72 y.o. : 1940 Sex: male Blood Pressure: 130/76 Director Index: SHAHRZAD Chacon Ordering Physician: Dr. Low Time of Test: 09:00 am Clinical Diagnosis: CAD, RBBB, CABG X3, HTN A transthoracic echo was performed with M-Mode, 2-Dimensional Imaging, Pulsed Wave, Continuous Wave, and Color Doppler. The study was technically difficult. 2D & M [...] VALVE: Normal leaflets, mobility and thickness. Doppler: No regurgitation noted. 8. RIGHT VENTRICLE: Right ventricular dimensions [...] ATRIAL/VENTRICULAR DILATION - MILD TO MODERATE Interpreting Remote Sensing Technician: Edgar Geiger MD, [facility] documented in this encounter Plan of Treatment Not on file documented as of this encounter Procedures Procedure Name Priority Date/Time Associated Diagnosis Comments ECHOCARDIOGRAM 2D WITH DOPPLER Routine 02/07/2013 2:35 PM CDT CAD (coronary artery disease) documented in this encounter Results * ECHOCARDIOGRAM 2D WITH DOPPLER (02/07/2013 2:35 PM CDT) Narrative Kala Montes De Oca - 02/07/2013 2:35 PM CDT Kala Montes De Oca ? 02/07/2013 ??2:35 PM TRANSTHORACIC ECHOCARDIOGRAM REPORT Name: ?? Drew Pak Date of Test: ? 02/06/2013 Age: ?72 y.o. : ?1940 Sex: ?male Blood Pressure: ??130/76 Director Index: ??SHAHRZAD Chacon Ordering Physician: ?? Dr. Low [...] ATRIAL/VENTRICULAR DILATION - MILD TO MODERATE Interpreting Remote Sensing Technician: ?? Edgar Geiger MD, [facility] Procedure Note Kala Montes De Oca - 02/07/2013 2:23 PM CDT TRANSTHORACIC ECHOCARDIOGRAM REPORT Name: Drew Pak Date of Test: 02/06/2013 Age: 72 y.o. : 1940 Sex: male Blood Pressure: 130/76 Director Index: SHAHRZAD Chacon Ordering Physician: Dr. Low Time [...] ATRIAL/VENTRICULAR DILATION - MILD TO MODERATE Interpreting Remote Sensing Technician: Edgar Geiger MD, [facility] Edgar Geiger MD ECHO ORDERABLES documented in this encounter Visit Diagnoses Diagnosis CAD (coronary artery disease) Coronary atherosclerosis of unspecified type of vessel, [place] or graft documented in this encounter Care Teams Feather Edger Relationship Specialty Start Date End Date Say Low MD [address] [place] [address] PCP - General Internal Medicine 08/14/12 Edgar Geiger MD Cardiovascular Disease 08/14/12 documented as of this encounter
--- OUTSIDE RECORDS SUMMARY | 2024-09-22 18:59 | XMS_ITS | Encounter Summary ---
Author Organization [facility] Address [address] [place] [address] Care Team Providers Care Automobile Upholsterer Name Role Phone Edgar Geiger MD Unavailable Unavailable Say Low MD Primary Care Provider [phone] Reason for Visit * Reason Comments Coronary Artery Disease 6-8 month f/u; p atient reports no new sx Hypertension Encounter Details Date Type Department Care Team (Late st Contact Info) Description 02/27/2014 2:45 PM CDT Office Visit [facility] [address] [place] [address] Edgar Geiger MD RETIRED 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 FOLLOW A LOW SODIUM AND LOW CALORIE DIET. RECORD WEIGHT WEEKLY. DO NOT SMOKE.FOLLOW INSTRUCTIONS. KEEP APPOINTMENTS. documented in this encounter Progress Notes * Edgar Geiger MD - 02/27/2014 3:47 PM CDT Cardiology Visit Note Drew Messi Mellisa PCP: Say Low Chief Complaint Patient presents with ??? Coronary Artery Disease 6-8 month f/u; patient reports no new sx ??? Hypertension No Known Allergies SUBJECTIVE: Drew Laboykitty who is a 73 y.o. male seen [...] on file Outpatient Encounter Prescriptions as of 02/27/2014 Medication Sig Dispense Refill ??? carvedilol (COREG) 12.5 MG tablet TAKE 1 TABLET TWICE A DAY 60 Tab 2 ??? Ascorbic Acid (VITAMIN C) 500 MG CAPS Take 500 mg by mouth once daily. ??? olmesartan-hydrochlorothiazide (BENICAR HCT) 40-12.5 MG tablet Take 1 Tab by mouth once daily. 30 Tab 8 ??? omeprazole (PRILOSEC OTC) 20 MG tablet Take 20 mg by mouth daily before breakfast. ??? metFORMIN (GLUCOPHAGE) 1000 MG tablet Take 1,000 mg by mouth 2 times daily with morning and evening meal. ??? [place]-3 Fatty Acids (TH OMEGA-3 FISH OIL) 1000 MG CAPS Take by mouth 2 times daily. ??? allopurinol (ZYLOPRIM) TABS Take 150 mg by mouth once daily after breakfast. ??? Aspirin 81 MG TBEC Take by mouth. ??? simvastatin (ZOCOR) 40 MG tablet Take 40 mg by mouth once daily. ??? [DISCONTINUED] furosemide (LASIX) 40 MG tablet TAKE ONE TABLET BY MOUTH FOR 7 DAYS; THEN PRN 30Tab 0 No Known Allergies REVIEW OF SYSTEMS: Reviewed [...] unremarkable except as mentioned above. OBJECTIVE: BP 138/84 Pulse 84 Wt 117.935 kg (260 lb) BMI 36.28 kg/m2 BP Readings from Last 3 Encounters: 02/27/14 138/84 08/06/13 158/75 12/11/12 130/76 Pulse Readings from Last 3 Encounters: 02/27/14 84 08/06/13 70 12/11/12 74 Wt Readings from Last 3 Encounters: 02/27/14 117.935 kg (260 lb) 08/06/13 115.667 kg (255 lb) 12/11/12 118.389 kg (261 lb) Vitals: 02/27/14 1458 BP: 138/84 Pulse: 84 Weight: 117.935 kg (260 lb) DATA: No results found for this basename: WBC:3,HGB:3,HCT:3,INR:3 in the last 40369 hours No results found for this basename: SODIUM:3,POTASSIUM:3,CHLORIDE:3,CO2:3,BUN:3,CREATININE:3,GLUCOSE:3,CALCIUM:3 in the last 28166 hours No results found for this basename: BNP in the last 23478 hours No results found for this basename: CHOL:3 in the last 98883 hours No results found for this basename: DIGOXIN:3 in the last 71275 hours No results found for this basename: TROPONIN:3 in the last 61992 hours PHYSICAL FINDINGS: General appearance: Alert, cooperative. [...] for this basename: CHOL:3,TRI,HDL:3,LDLCA in the last 26164 hours No results found for this basename: ALBUMIN:3,ALKPHOS:3,ALT:3,AST:3,TBIL:3,DBIL:3,TPROT:3 in the last 98264 hours No results found for this basename: HGBA1C:3 in the last 99096 hours No results found for this basename: TSH:3 in the last 51991 hours No results found for this basename: T4FREE:3 in the last 95827 hours Recent CV procedures Today's EKG: NO Cardiac Procedure: Holter: NO Stress: NO ECHO: YES 1. A TECHNICALLY DIFFICULT STUDY 2. ADEQUATE LEFT VENTRICULAR FUNCTION 3. NORMAL EJECTION FRACTION 50% - 54% 4. LEFT VENTRICULAR DIASTOLIC DYSFUNCTION 5. MILD AORTIC INSUFFICIENCY 6. 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 RIGHT ATRIAL/VENTRICULAR DILATION - MILD TO MODERATE Interpreting Forms Analyst: Edgar Geiger MD, [facility] Cath/PCI: NO ASSESSMENT: CHF worsening, chronic diastolic heart failure : it is moderate IMPROVED EDEMA: Bilateral, moderate WEIGHT: Morbid Obesity worse SHORTNESS OF BREATH: cardiac STABLE CORONARY DISEASE POST CABG and x3 2003 PLAN: MEDICATION CHANGE(S): SAME TESTING: NONE RECOMMENDATION(S): TAKE ALL MEDICATIONS: FOLLOW A LOW SODIUM AND LOW CALORIE DIET. RECORD WEIGHT WEEKLY. DO NOT SMOKE. FOLLOW INSTRUCTIONS. KEEP APPOINTMENTS. RETURN APPOINTMENT: 6 months REFER TO BARIATRIC CLINIC The patient and/or family understand the risks and benefits. They had an opportunity to ask questions. The patient and/or family agree to the plan. Thank you for allowing me the opportunity to participate in the care of your patient. Please do nothesitate to contact me should you have any questions or need additional information. 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
--- OUTSIDE RECORDS SUMMARY | 2024-09-22 18:59 | XMS_ITS | Encounter Summary ---
Author Organization [facility] Address [address] [place] [address] Care Team Providers Care Lead Based Paint Technician Name Role Phone Edgar Geiger MD Unavailable Unavailable Say Low MD Primary Care Provider [phone] Reason for Visit * Reason Comments Refill Request Encounter Details Date Type Department Care Team (Late st Contact Info) Description 11/04/2014 Refill [facility] V[facility] [address] [place] [id number] Edgar Geiger MD RETIRED Refill Request Social [...] on filedocumented in this encounter Care Teams Lead Based Paint Technician Relationship Specialty Start Date End Date Say Low MD [address] [facility] [place] [address] PCP - General Internal Medicine 08/14/12 Edgar Geiger MD Cardiovascular Disease 08/14/12 documented as of this encounter
--- OUTSIDE RECORDS SUMMARY | 2024-09-22 18:59 | XMS_ITS | Encounter Summary ---
Author Organization [facility] Address [address] [place] [address] Care Team Providers Care Masonry Contractor Administrator Name Role Phone Edgar Geiger MD Unavailable Unavailable Say Low MD Primary Care Provider [phone] Reason for Visit * Reason Onset Date Comments Pulmonary Function Test 12/12/2012 Encounter Details Date Type Department Care Team (Late st Contact Info) Description 12/12/2012 Telephone [facility] [address] [place] [id number] Edgar Geiger MD RETIRED Pulmonary Function Test Social History Tobacco Use Types Packs/Day Years Used Date Smoking Tobacco: Never Alcohol Use Standard Drinks/Week Comments Yes 0 (1 standard drink = 0.6 oz pur e alcohol) Sex and Gender Information Value Date Recorded Sex Assigned at Not on file Gender Identity Not on file Sexual Orientation Not on file documented as of this encounter Miscellaneous Notes * Telephone Encounter - Stephanie Lozano - 12/12/2012 8:49 AM CDT Called pt to [facility]. [place] lives [place] and will be having Test @ [facility] and will get order from PCP for test . ss documented in this encounter Plan of Treatment Not on file documented as of this encounter Visit Diagnoses Not on filedocumented in this encounter Care Teams Masonry Contractor Administrator Relationship Specialty Start Date End Date Say Low MD [address] [place] [address] PCP - General Internal Medicine 08/14/12 Edgar Geiger MD Cardiovascular Disease 08/14/12 documented as of this encounter
--- OUTSIDE RECORDS SUMMARY | 2024-09-22 19:00 | XMS_ITS | Encounter Summary ---
Author Organization [facility] Address [address] [place] [address] Care Team Providers Care Trimmer Tailer Name Role Phone Edgar Geiger MD Unavailable Unavailable Say Low MD Primary Care Provider [phone] Reason for Visit * Reason Comments Follow-up 6 month follow up. Encounter Details Date Type Department Care Team (Late st Contact Info) Description 08/16/2012 1:30 PM ASBESTOS HAZARD ABATEMENT WORKER Office Visit [facility] Heart & Vascular Care [address] [place] [phone] Edgar Geiger MD RETIRED CAD (coronary artery disease) (Primary Dx); CABG x 3 - vein graft to 1st OM, vein graft to 2nd OM, vein graft to PDA; Essential hypertension, benign Social History Tobacco Use [...] Sign Reading Time Taken Comments Blood Pressure 171/85 08/16/2012 1:48 PM ASBESTOS HAZARD ABATEMENT WORKER Pulse 63 08/16/2012 1:48 PM ASBESTOS HAZARD ABATEMENT WORKER Temperature - - Respiratory Rate - - Oxygen Saturation - - Inhaled Oxygen Concentration - - Weight 114.8 kg (253 lb) 08/16/2012 1:48 PM ASBESTOS HAZARD ABATEMENT WORKER Height 180.3 cm (5' 11 ) 08/16/2012 1:48 PM ASBESTOS HAZARD ABATEMENT WORKER Body Mass Index 35.29 08/16/2012 1:48 PM ASBESTOS HAZARD ABATEMENT WORKER documented in this encounter Patient Instructions * Patient Instructions* Edgar Geiger MD - 08/16/2012 2:32 PM ASBESTOS HAZARD ABATEMENT WORKER Take all medications. Follow a diet instructions of low sodium and low calorie diet. Record weight weekly. Do not smoke. Follow instructions. Keep appointments. STOS HAZARD ABATEMENT WORKER documented in this encounter Progress Notes * Edgar Geiger MD - 08/16/2012 2:27 PM CST Cardiology Visit Note Drew Pak PCP: Say Low Chief Complaint Patient presents with ??? Follow-up 6 month follow up. SUBJECTIVE: Drew Pak who is a 72 y.o. male seen for a follow up visit for Follow-up coronary artery disease Patient denies chest [...] on file Outpatient Encounter Prescriptions as of 08/16/2012 Medication Sig Dispense Refill ??? olmesartan-hydrochlorothiazide (BENICAR HCT) 40-12.5 MG tablet Take 1 Tab by mouth once daily. ??? omeprazole (PRILOSEC OTC) 20 MG tablet Take 20 mg by mouth daily before breakfast. ??? metFORMIN (GLUCOPHAGE) 1000 MG tablet Take 1,000 mg by mouth 2 times daily with morning and evening meal. ??? [place]-3 Fatty Acids (TH OMEGA-3 FISH OIL) 1000 [...] unremarkable except as mentioned above. OBJECTIVE: BP 171/85 Pulse 63 Wt 253 lb (114.76 kg) BMI 35.29 kg/m2 BP Readings from Last 3 Encounters: 08/16/12 171/85 Pulse Readings from Last 3 Encounters: 08/16/12 63 Wt Readings from Last 3 Encounters: 08/16/12 253 lb (114.76 kg) PHYSICAL FINDINGS: [...] RHYTHM REGULAR. MURMURS NONE PALPITATIONS NONE , no gallops or rubs Extremities: No clubbing, cyanosis. EDEMA NONE Labs: No results found for this basename: CHOL:3,TRI,HDL:3,LDLCA in the last 22531 hours No results found for this basename: ALBUMIN:3,ALKPHOS:3,ALT:3,AST:3,TBIL:3,DBIL:3,TPROT:3 in the last 29613 hours No results found for this basename: HGBA1C:3 in the last 77433 hours No results found for this basename: TSH:3 in the last 49154 hours No results found for this basename: T4FREE:3 in the last 23895 hours Recent CV procedures Today's EKG: NONE Cardiac Procedure: Holter: No Stress: No ECHO: No Cath/PCI: No ASSESSMENT: CAD- CABG STABLE [place]ESE HTN PLAN: MEDICATION CHANGE(S): NONE TESTING: NONE RECOMMENDATION(S): TAKE ALL MEDICATIONS. FOLLOW A DIET INSTRUCTIONS OF LOW SODIUM AND LOW CALORIE DIET. RECORD WEIGHT WEEKLY. DO NOT SMOKE. FOLLOW INSTRUCTIONS. KEEP APPOINTMENTS. The patient and/or family understand the risks and benefits. They had an opportunity to ask questions. The patient and/or family agree to the plan. Edgar Geiger MD 08/16/2012 2:27 PM STOS HAZARD ABATEMENT WORKER * Pasha Peng - 08/16/2012 1:59 PM CST Cardiology Visit Note Name: Drew Pak Date of : 1940 Date: 08/16/2012 REASON FOR VISIT: Chief Complaint Patient presents with ??? Follow-up 6 month follow up. Patient has no cardiac complaints at this time. TESTING SINCE LAST VISIT: No If yes, when and where? HOSPITALIZATION/SURGERY SINCE LAST VISIT: No If yes, when and where? Treated For: Hypertension: Yes Dyslipidemia (high cholesterol): No Diabetes mellitus: Yes STOS HAZARD ABATEMENT WORKER documented in this encounter Plan of Treatment Not on file documented as of this encounter Visit Diagnoses Diagnosis CAD (coronary artery disease)- Primary Coronary atherosclerosis of unspecified type of vessel, [place] or graft CABG x 3 - vein graft to 1st OM, vein graft to 2nd OM, vein graft to PDA Postsurgical aortocoronary bypass status Essential hypertension, benign documented in this encounter Care Teams Trimmer Tailer Relationship Specialty Start Date End Date Say Low MD [address] [place] [address] PCP - General Internal Medicine 08/14/12 Edgar Geiger MD Cardiovascular Disease 08/14/12 documented as of this encounter
--- OUTSIDE RECORDS SUMMARY | 2024-09-22 19:00 | XMS_ITS | Encounter Summary ---
Author Organization [facility] Address [address] [place] [address] Care Team Providers Care Community Ambassador Name Role Phone Edgar Geiger MD Unavailable Unavailable Say Low MD Primary Care Provider [phone] Encounter Details Date Type Department Care Team (Latest Contact Info) Description 07/03/2012 Hospital Outpatient Visit Historic [facility] [address] [place] [address] Elgin Francisco DO [address] [place] [id number] Discharge Disposition: Home or Self Care Social History Tobacco Use Types Packs/Day Years Used Date Smoking Tobacco: Never Assessed Sex and Gender Information Value Date Recorded Sex Assigned at Not on file Gender Identity Not on file Sexual Orientation Not on file documented as of this encounter Progress Notes * ProviderGiovanni MD - 07/03/2012 12:46 PM CDT Ortho Clinic Note Signed by Elgin Francisco DO on 07/04/2012 1:30 PM Author: Yuko Avila MD Service: (none) Author Type: Resident Date of Service: 07/03/2012 12:46 PM Filed: 07/04/2012 1:30 PM Note Type: Ortho Clinic Note Status: Signed Electric Organ Inspector And Repairer: Elgin Francisco DO (Physician) Trans ID: [id number] Trans Status: Available Dictation Time: 07/03/2012 1:46 PM Trans Time: 07/03/2012 10:39 PM Trans Doc Type: Ortho Clinic Note DATE OF SERVICE: 07/03/2012 ATTENDING PHYSICIAN: Elgin Francisco D.O. HISTORY OF PRESENT ILLNESS: This is a 71-year-old male referred from Dr. Juarez's clinic for a possible evaluation for right ankle fusion. Patient obtained this injury after he fell from a roof on 06/27/2011 and was treated in an ex-fix and eventually went on to have an open reduction and internal fixation of his right pilon fracture. His history also includes removal of an epidermal inclusion cyst of his medial incision site. He was last seen in Dr. Juarez's clinic on 06/20/2012, for which patient has continued right ankle pain. PAST MEDICAL HISTORY: Diabetes and hypertension. PAST SURGICAL HISTORY: Right ankle ex-fix, right ankle open reduction and internal fixation, triple bypass heart surgery in 2003. SOCIAL HISTORY: Patient denies smoking, alcohol use or any other IV drug use, other drug use. MEDICATIONS: Metformin b.i.d., carvedilol daily, Zocor 40 daily, aspirin 81 mg daily, [place] p.r.n. pain, ibuprofen p.r.n. pain. PHYSICAL EXAMINATION: GENERAL: This is an awake alert patient who was cooperative with my exam, who appears younger than his stated age. EXTREMITIES: Right lower extremity focused exam shows surgical incisions that are clean, dry and intact, well healed with no areas of erythema or and drainage. Patient has motor intact in EHL, FHL, TA and GS. His sensation is decreased medially in the sural nerve distribution, which patient reports has been since his surgery, and his sensation is intact to light touch in all other nerve distributions. His ankle range of motion is neutral to 15 degrees of plantar flexion. He has 1+ dorsalis pedis and PT pulses. RADIOGRAPHS: Right ankle, three views show hardware that is intact with no areas of screw lucency. 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 Patient's tibial plafond is articulating with the intraarticular screws. ASSESSMENT AND PLAN: This is a 72-year-old male who is status post right severe distal pilon fracture as well as removal of an inclusion cyst from the medial incision site, who has continued right ankle pain and is a good candidate for right ankle fusion. We recommended a staged procedure, for which patient would undergo removal of hardware first complete healing of his surgical incision and then go on to have a screw fixation fusion of his right ankle. 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 He was going to leave clinic and try to organize his life in order to accommodate his possible fusion. He is also going to revaluate his decision regarding the surgery. Patient will return to clinic in approximately two weeks, and at that time, we will not need new repeat x-rays. Elgin Francisco DO Dictated by Yuko Avila MD TR:JEFFERY CDT CDT Dictation ID: [id number]/Confirmation #: [id number] Sent from eScription - CurrentDate: 07/03/2012 21:39 Sent from eScription - CurrentDate: [id number] Sent from eScription - LatestRevisionDate: documented in this encounter Plan of Treatment Not on file documented as of this encounter Visit Diagnoses Not on filedocumented in this encounter Care Teams Community Ambassador Relationship Specialty Start Date End Date Say Low MD [address] [place] [address] PCP - General Internal Medicine 08/14/12 Edgar Geiger MD Cardiovascular Disease 08/14/12 documented as of this encounter
--- OUTSIDE RECORDS SUMMARY | 2024-09-22 19:00 | XMS_ITS | Encounter Summary ---
Author Organization [facility] Address [address] [place] [address] Care Team Providers Care Yeast Culture Developer Name Role Phone Edgar Geiger MD Unavailable Unavailable Say Low MD Primary Care Provider [phone] Encounter Details Date Type Department Care Team (Late st Contact Info) Description 03/14/2012 Hospital Outpatient Visit Historic [facility] DEFAULT [address] [place] [address] Pasha Juarez MD [address] [place] [address] [place] [address] Discharge Disposition: Home or Self Care Social History Tobacco Use Types Packs/Day Years Used Date Smoking Tobacco: Never Assessed Sex and Gender Information Value Date Recorded Sex Assigned at Not on file Gender Identity Not on file Sexual Orientation Not on file documented as of this encounter Progress Notes * Baltazar Mercado MD - 03/14/2012 1:41 PM CDT Ortho Clinic Note Signed by Baltazar Mercado MD on 03/16/2012 8:45 AM Also Signed by Pasha Juarez MD on 03/16/2012 9:11 AM Author: Baltazar Mercado MD Service: (none) Author Type: Resident Date of Service: 03/14/2012 1:41 PM Filed: 03/16/2012 8:45 AM Note Type: Ortho Clinic Note Status: Signed Airflight Attendants Supervisor: Baltazar Mercado MD (Resident) Cosigner: Pasha Juarez MD at 03/16/2012 9:11 AM Trans ID: [id number] Trans Status: Available Dictation Time: 03/14/2012 2:41 PM Trans Time: 03/14/2012 11:33 PM Trans Doc Type: Ortho Clinic Note DATE OF SERVICE: 03/14/2012 ATTENDING PHYSICIAN: Pasha Juarez M.D. HISTORY OF PRESENT ILLNESS: This patient is a pleasant 71-year-old male, who comes to clinic with continued complaints of medial-sided distal tibial wound drainage. He does state that this is occurring at two sites; however, the more active site is the wound proximally. Patient has been weightbearing as tolerated; however, he does this with some pain. Pain is worse with a long day of work. Patient is specifically concerned with these wounds as he is a diabetic and concerned with wound healing. PHYSICAL EXAMINATION: GENERAL: This patient is awake, alert and oriented x3, in no acute distress. He is pleasant and cooperative with the examination. EXTREMITIES: Focused examination of the right lower extremity demonstrates he has intact motor, EHL, FHL, gastrocsoleus and anterior tibialis muscle groups. He has sensation intact distally in all distributions; however, somewhat decreased medially along the foot. RADIOGRAPHS: Two views of the right ankle demonstrate hardware to be intact without any evidence of failure. 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 ASSESSMENT AND PLAN: This is a 71-year-old male with status post pilon injury, status post fixation with some draining wounds medially. At this point in time, the wounds were cauterized with silver nitrate cautery. He was also given a prescription for ciprofloxacin 500 mg orally b.i.d. x10 days. We will monitor this wound closely. If not healing, he may need excision of possible stitch granuloma. At this point in time, we will follow up in approximately two weeks for a wound check. At that point in time, no need for x-rays. Pasha Juarez MD Dictated by Baltazar Mercado M.D. TR:JAYLA CDT CDT Dictation ID: [id number]/Confirmation #: [id number] Sent from eScription - CurrentDate: 03/14/2012 22:34 Sent from eScription - CurrentDate: [id number] Sent from eScription - LatestRevisionDate: documented in this encounter Plan of Treatment Not on file documented as of this encounter Procedures Procedure Name Priority Date/Time Associated Diagnosis Comments XR ANKLE RIGHT 3VW OR MORE Routine 03/14/2012 9:01 AM CDT XR TIBIA FIBULA RIGHT 2VW Routine 03/14/2012 9:01 AM CDT documented in this encounter Results * XR ANKLE RIGHT 3VW OR MORE (03/14/2012 9:01 AM CDT) Anatomical Region Laterality Modality Lower Extremity Other Impressions 03/15/2012 12:27 PM CDT IMPRESSION: Status post ORIF for the pilon fracture without change in alignment. Report dictated by Dr. Leigha Romero (resident). This examination was personally reviewed and interpreted by Donald Alvarado M.D. (Attending Radiologist). Narrative 03/15/2012 12:27 PM CDT RIGHT ANKLE, 3 VIEWS DATE: Mar 14, 2012 9:01:59 AM CLINICAL HISTORY: Right ankle pain COMPARISON: February 08, 2012 FINDINGS: The patient is status post ORIF for the tibial pilon fracture without change in alignment. The orthopedic hardware is intact. Soft tissue swelling around the ankle is unchanged. Procedure Note Donald Alvarado MD - 01/01/2018 RIGHT ANKLE, 3 VIEWS DATE: Mar 14, 2012 9:01:59 AM CLINICAL HISTORY: Right ankle pain COMPARISON: February 08, 2012 FINDINGS: The patient is status post ORIF for the tibial pilon fracture withoutchange in alignment. The orthopedic hardware is intact. Soft tissueswelling around the ankle is unchanged. IMPRESSION IMPRESSION: Status post ORIF for the pilon fracture without change in alignment. Report dictated by Dr. Leigha Romero (resident). This examination waspersonally reviewed and interpreted by Donald Alvarado M.D. (AttendingRadiologist). Psaha Juarez MD DIAGNOSTIC IMAGING O RDERABLES * XR TIBIA FIBULA RIGHT 2VW (03/14/2012 9:01 AM CDT) Anatomical Region Laterality Modality Lower Extremity Other Impressions 03/15/2012 11:16 AM CDT IMPRESSION: Status post pilon fracture with increased bone formation since October 2011. Report dictated by Dr. Leigha Romero (resident). This examination was personally reviewed and interpreted by Donald Alvarado M.D. (Attending Radiologist). Narrative 03/15/2012 11:16 AM CDT RIGHT TIBIA-FIBULA, 4 VIEWS DATE: Mar 14, 2012 9:01:49 AM CLINICAL HISTORY: Right ankle pain COMPARISON: October 05, 2011 FINDINGS: The patient is status post ORIF for a tibial pilon fracture. The orthopedic hardware is intact. Bone formation has increased since the prior exam. Procedure Note Donald Alvarado MD - 01/01/2018 RIGHT TIBIA-FIBULA, 4 VIEWS DATE: Mar 14, 2012 9:01:49 AM CLINICAL HISTORY: Right ankle pain COMPARISON: October 05, 2011 FINDINGS: The patient is status post ORIF for a tibial pilon fracture. Theorthopedic hardware is intact. Bone formation has increased since theprior exam. IMPRESSION IMPRESSION: Status post pilon fracture with increased bone formation since October2011. Report dictated by Dr. Leigha Romero (resident). This examination waspersonally reviewed and interpreted by Donald Alvarado M.D. (AttendingRadiologist). Pasha Juarez MD DIAGNOSTIC IMAGING O RDERABLES documented in this encounter Visit Diagnoses Diagnosis Generalized pain documented in this encounter Care Teams Yeast Culture Developer Relationship Specialty Start Date End Date Say Low MD [address] [place] [phone] PCP - General Internal Medicine 08/14/12 Edgar Geiger MD Cardiovascular Disease 08/14/12 documented as of this encounter
--- OUTSIDE RECORDS SUMMARY | 2024-09-22 19:00 | XMS_ITS | Encounter Summary ---
Author Organization [facility] Address [address] [place] [address] Care Team Providers Care Fur Machine Operator Name Role Phone Edgar Geiger MD Unavailable Unavailable Say Low MD Primary Care Provider [phone] Encounter Details Date Type Department Care Team (Late st Contact Info) Description 07/31/2012 Hospital Outpatient Visit [facility] - Orthopedics [address] [facility], [place] [address] [place] Francisco, [facility] [address] [place] [address] Social History Tobacco Use Types [...] on filedocumented in this encounter Care Teams Fur Machine Operator Relationship Specialty Start Date End Date Say Low MD [address] [place] [phone] PCP - General Internal Medicine 08/14/12 Edgar Geiger MD Cardiovascular Disease 08/14/12 documented as of this encounter
--- OUTSIDE RECORDS SUMMARY | 2024-09-22 19:00 | XMS_ITS | Encounter Summary ---
Author Organization [facility] Address [address] [place] [address] Care Team Providers Care Bonding Equipment Operator Name Role Phone Edgar Geiger MD Unavailable Unavailable Say Low MD Primary Care Provider [phone] Encounter Details Date Type Department Care Team (Latest Contact Info) Description 04/18/2012 Hospital Outpatient Visit Historic [facility] DIAGNOSTIC RAD [address] [place] [address] Discharge Disposition: Home or Self Care Social [...] XR ANKLE RIGHT 3VW OR MORE Routine 04/18/2012 8:58 AM CDT documented in this encounter Results * XR ANKLE RIGHT 3VW OR MORE (04/18/2012 8:58 AM CDT) Anatomical Region Laterality Modality Lower Extremity Other Impressions 04/18/2012 2:09 PM CDT Impression: Status post ORIF of Pilon fracture with no significant interval change. This examination has been personally reviewed and interpreted by Donald Alvarado M.D. (attending radiologist). Report dictated by Lien Vegas M.D. Narrative 04/18/2012 2:09 PM CDT Right ankle, 3 views History: ??Right ankle fracture Comparison: ??Right ankle radiograph from 03/28/2012 Findings: The patient is status post ORIF of a distal tibia fracture. The fracture is unchanged in alignment. There is slight interval increased medial production. The hardware is intact. ??There is persistent joint effusion and soft tissue swelling. ?? Procedure Note Donald Alvarado MD - 01/01/2018 Right ankle, 3 views History: Right ankle fracture Comparison: Right ankle radiograph from 03/28/2012 Findings: The patient is status post ORIF of a distal tibia fracture. The fractureis unchanged in alignment. There is slight interval increased medialproduction. The hardware is intact. There is persistent joint effusionand soft tissue swelling. IMPRESSION Impression: Status post ORIF of Pilon fracture with no significant interval change. This examination has been personally reviewed and interpreted by Juve Rayo (attending radiologist). Report dictated by Juve Shafer Pasha Juarez MD DIAGNOSTIC IMAGING O RDERABLES documented in this encounter Visit Diagnoses Diagnosis Closed fracture of bone Closed fracture of unspecified bone documented in this encounter Care Teams Bonding Equipment Operator Relationship Specialty Start Date End Date Say Low MD [address] [place] [phone] PCP - General Internal Medicine 08/14/12 Edgar Geiger MD Cardiovascular Disease 08/14/12 documented as of this encounter
--- OUTSIDE RECORDS SUMMARY | 2024-09-22 19:00 | XMS_ITS | Encounter Summary ---
Author Organization [facility] Address [address] [place] [address] Care Team Providers Care Auto Parts Professional Name Role Phone Edgar Geiger MD Unavailable Unavailable Say Low MD Primary Care Provider Encounter Details Date Type Department Care Team (Late st Contact Info) Description 11/13/2012 Hospital Outpatient Visit [facility] - [facility], [place] [address] [place] Francisco, [address] [place] [address] [address] [place] [address] Social History Tobacco Use Types [...] on filedocumented in this encounter Care Teams Auto Parts Professional Relationship Specialty Start Date End Date Say Low MD [address] [place] [address] PCP - General Internal Medicine 08/14/12 Edgar Geiger MD Cardiovascular Disease 08/14/12 documented as of this encounter
--- OUTSIDE RECORDS SUMMARY | 2024-09-22 19:00 | XMS_ITS | Encounter Summary ---
Author Organization [facility] Address [address] [place] [address] Care Team Providers Care Early Morning Name Role Phone Edgar Geiger MD Unavailable Unavailable Say Low MD Primary Care Provider [phone] Encounter Details Date Type Department Care Team (Latest Contact Info) Description 03/28/2012 Hospital Outpatient Visit Historic [facility] DIAGNOSTIC RAD [address] [place] [address] Discharge Disposition: Home or Self [...] Name Priority Date/Time Associated Diagnosis Comments XR TIBIA FIBULA RIGHT 2VW Routine 03/28/2012 9:44 AM CDT documented in this encounter Results * XR TIBIA FIBULA RIGHT 2VW (03/28/2012 9:44 AM CDT) Anatomical Region Laterality Modality Lower Extremity Other Impressions 03/28/2012 2:57 PM CDT IMPRESSION: Status post pilon fracture without significant interval change. This examination has been personally reviewed and interpreted by Yessenia Bello M.D. (attending radiologist). ??Report dictated by ??Damian Guan M.D. (resident). Narrative 03/28/2012 2:57 PM CDT Right tibia-fibula, 2 views History: Right tibia plafond fracture Comparison: 03/14/2012 Findings: There has been no significant change since the prior exam. ??The patient is status post ORIF for a tibial pilon fracture. The orthopedic hardware is intact. ??The osseous structures are unchanged in alignment. Procedure Note Yessenia Bello MD - 01/01/2018 Right tibia-fibula, 2 views History: Right tibia plafond fracture Comparison: 03/14/2012 Findings: There has been no significant change since the prior exam. The patient isstatus post ORIF for a tibial pilon fracture. The orthopedic hardware isintact. The osseous structures are unchanged in alignment. IMPRESSION IMPRESSION: Status post pilon fracture without significant interval change. This examination has been personally reviewed and interpreted by Juve Morales (attending radiologist). Report dictated by Damian Guan M.D.(resident). Pasha Juarez MD DIAGNOSTIC IMAGING O RDERABLES documented in this encounter Visit Diagnoses Diagnosis Closed fracture of bone Closed fracture of unspecified bone documented in this encounter Care Teams Early Morning Relationship Specialty Start Date End Date Say Low MD [address] [place] [phone] PCP - General Internal Medicine 08/14/12 Edgar Geiger MD Cardiovascular Disease 08/14/12 documented as of this encounter
--- OUTSIDE RECORDS SUMMARY | 2024-09-22 19:00 | XMS_ITS | Encounter Summary ---
Author Organization [facility] Address [address] [facility] [place] [address] Care Team Providers Care Control Officer Manager Name Role Phone Edgar Geiger MD Unavailable Unavailable Say Low MD Primary Care Provider [phone] Encounter Details Date Type Department Care Team (Latest Contact Info) Description 11/20/2012 Hospital Outpatient Visit Historic [facility] [address] [place] [address] Discharge Disposition: Home or Self Care Social [...] Procedure Name Priority Date/Time Associated Diagnosis Comments CT ANKLE RIGHT WO CONTRAST Routine 11/20/2012 1:31 PM KITCHEN UTILITY ASSOCIATE documented in this encounter Results * CT ANKLE RIGHT WO CONTRAST (11/20/2012 1:31 PM KITCHEN UTILITY ASSOCIATE) Anatomical Region Laterality Modality Lower Extremity Other Impressions 11/21/2012 5:25 PM KITCHEN UTILITY ASSOCIATE IMPRESSION: 1. Status post ORIF of a multipart tibial pilon fracture with persistence of the fracture lines/gaps. 2. 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 I, Dr. DONALD ODOM M.D. have personally reviewed and interpreted this examination/study. This report was electronically signed by DONALD ODOM M.D. ??on 11/21/2012 5:25 PM . Narrative 11/21/2012 5:[address] EXTREMITY OF THE RIGHT ANKLE, NONCONTRAST [...] at the tibiotalar joint. I, Dr. DONALD ILENE, M.D. have personally reviewed and interpreted thisexamination/study. This report was electronically signed by DONALD ODOM M.D. on 11/21/20125:25 PM . [place] Kelly Marielorenza [place] [address] ORDERABLES documented in this encounter Visit Diagnoses Diagnosis Closed fracture of ankle Unspecified closed fracture of ankle documented in this encounter Care Teams Control Officer Manager Relationship Specialty Start Date End Date Say Low MD [address] [place] [phone] PCP - General Internal Medicine 08/14/12 Edgar Geiger MD Cardiovascular Disease 08/14/12 documented as of this encounter
--- OUTSIDE RECORDS SUMMARY | 2024-09-22 19:00 | XMS_ITS | Encounter Summary ---
Author Organization [facility] Address [address] [place] [address] Care Team Providers Care Executive Vice President Name Role Phone Edgar Geiger MD Unavailable Unavailable Say Low MD Primary Care Provider [phone] Encounter Details Date Type Department Care Team (Late st Contact Info) Description 06/20/2012 Hospital Outpatient Visit Historic [facility] DEFAULT [address] [place] [address] Pasha Juarez MD [address] [place] [address] [place] [address] Discharge Disposition: Home or Self Care Social History Tobacco Use Types Packs/Day Years Used Date Smoking Tobacco: Never Assessed Sex and Gender Information Value Date Recorded Sex Assigned at Not on file Gender Identity Not on file Sexual Orientation Not on file documented as of this encounter Progress Notes * ProviderGiovanni MD - 06/20/2012 10:20 AM CDT Ortho Clinic Note Signed by Pasha Juarez MD on 06/22/2012 12:42 PM Author: Mi Jordan MD Service: (none) Author Type: Resident Date of Service: 06/20/2012 10:20 AM Filed: 06/22/2012 12:42 PM Note Type: Ortho Clinic Note Status: Signed Freelance Programmer/App Developer: Pasha Juarez MD (Physician) Trans ID: [id number] Trans Status: Available Dictation Time: 06/20/2012 11:20 AM Trans Time: 06/20/2012 1:31 PM Trans Doc Type: Ortho Clinic Note DATE OF SERVICE: 06/20/2012 ATTENDING PHYSICIAN: Pasha uJarez M.D. HISTORY OF PRESENT ILLNESS: Mr. Pak is a 72-year-old male status post left pilon fracture as well as removal of an epidermal inclusion cyst at the medial incision site. He continues to complain of pain, which he states is worse with initial weightbearing on to the right lower extremity and increases with ambulating up hills. He denies any fevers or chills. He wears a compression stocking to the right lower extremity for swelling. PHYSICAL EXAMINATION: GENERAL: Patient is awake, alert, in no acute distress. EXTREMITIES: Focused right lower extremity exam demonstrates a medial incision with sutures intact at the proximal border and minimal fibrinous exudate. He has no warmth, but has generalized swelling in the distal tibia and foot. He has virtually no ankle plantar flexion and dorsiflexion, although does have compensation through his mid foot to neutral and dorsiflexion to 30 degrees and has inversion and eversion of the subtalar joint. He has sensation intact to light touch at DP, SP, and tibial nerve distributions. He has 1+ DP and PT pulses. He has positive motor function of EHL, FHL, dorsiflexion and plantarflexion. IMAGING: Three views of the right ankle demonstrate hardware, which is intact to pilon fracture. He has complete collapse of the tibiotalar joint space. He also had some narrowing of the subtalar joint. 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 He is now ambulating on intra-articular hardware ASSESSMENT AND PLAN: Mr. Pak is a 72-year-old male status post right severe distal pilon fracture as well as removal of an inclusion cyst from the medial incision site. He has no signs or symptoms of infection. The sutures were removed on today's date and patient will just do generalized wound care to that superficial wound. He was given a script for [place] 5/325 mg tabs, 90 tabs with 1 refill and use ibuprofen atka-fas-vjnitor as needed for pain. We will have him follow up with Dr. Francisco for evaluation for right ankle fusion. He will follow up with Dr. Juarez on a p.r.n. basis. Pasha Juarez MD Dictated by Mi Jordan M.D. TR:JOSR CDT CDT Dictation ID: [id number]/Confirmation #: [id number] Sent from eScription - CurrentDate: 06/20/2012 12:31 Sent from eScription - CurrentDate: [id number] Sent from eScription - LatestRevisionDate: documented in this encounter Plan of Treatment Not on file documented as of this encounter Procedures Procedure Name Priority Date/Time Associated Diagnosis Comments XR ANKLE RIGHT 3VW OR MORE Routine 06/20/2012 8:51 AM CDT documented in this encounter Results * XR ANKLE RIGHT 3VW OR MORE (06/20/2012 8:51 AM CDT) Anatomical Region Laterality Modality Lower Extremity Other Impressions 06/20/2012 10:20 AM CDT IMPRESSION: Status post ORIF of distal tibial intra-articular fracture, unchanged. Report dictated by Richard Bay MD (residential real estate appraiser). Donald Mendoza M.D. (Attending Radiologist) have personally reviewed and interpreted this exam. Narrative 06/20/2012 10:20 AM CDT RIGHT ANKLE, 3 VIEWS HISTORY: Right ankle cyst COMPARISON: 04/18/2012 FINDINGS: The patient is status post ORIF of a distal tibial intra-articular (pilon) fracture. The hardware is intact. The alignment is unchanged. There is bone production at the fracture margins. Procedure Note Donald Alvarado MD - 01/01/2018 RIGHT ANKLE, 3 VIEWS HISTORY: Right ankle cyst COMPARISON: 04/18/2012 FINDINGS: The patient is status post ORIF of a distal tibial intra-articular (pilon)fracture. The hardware is intact. The alignment is unchanged. There isbone production at the fracture margins. IMPRESSION IMPRESSION: Status post ORIF of distal tibial intra-articular fracture, unchanged. Report dictated by Richard Bay MD (residential real estate appraiser). I, Donald Alvarado M.D. (Attending Radiologist) have personally reviewed andinterpreted this exam. Pasha Juarez MD DIAGNOSTIC IMAGING O RDERABLES documented in this encounter Visit Diagnoses Diagnosis Generalized pain documented in this encounter Care Teams Executive Vice President Relationship Specialty Start Date End Date Say Low MD [address] [place] [address] PCP - General Internal Medicine 08/14/12 Edgar Geiger MD Cardiovascular Disease 08/14/12 documented as of this encounter
--- OUTSIDE RECORDS SUMMARY | 2024-09-22 19:00 | XMS_ITS | Encounter Summary ---
Author Organization [facility] Address [address] [place] [address] Care Team Providers Care Supervisor Mold Yard Name Role Phone Edgar Geiger MD Unavailable Unavailable Say Low MD Primary Care Provider [phone] Encounter Details Date Type Department Care Team (Latest Contact Info) Description 11/27/2012 Hospital Outpatient [facility] - Orthopedics [address] [place] [address], [place] [address] [place] Francisco, [address] [place] [address] Discharge Disposition: Home or Self Care Social [...] Comments XR TIBIA FIBULA RIGHT 2VW Routine 11/27/2012 10:38 AM LINER INSERTER XR ANKLE RIGHT 3VW OR MORE Routine 11/27/2012 10:38 AM LINER INSERTER documented in this encounter Results * XR TIBIA FIBULA RIGHT 2VW (11/27/2012 10:38 AM LINER INSERTER) Anatomical Region Laterality Modality Lower Extremity Other Impressions 11/27/2012 2:14 PM LINER INSERTER Impression: Status post ORIF of tibial pilon fracture, unchanged alignment. Report dictated by Elia Daugherty MD. I, Dr. DONALD ODOM M.D. have personally reviewed and interpreted this examination/study. This report was electronically signed by DONALD ODOM M.D. ??on 11/27/2012 2:14 PM . Narrative 11/27/2012 2:14 PM LINER INSERTER Exam: Tibia and fibula, 2 views Comparison: [...] RIGHT 3VW OR MORE (11/27/2012 10:38 AM LINER INSERTER) Anatomical Region Laterality Modality Lower Extremity Other Impressions 11/27/2012 2:14 PM LINER INSERTER Impression: Status post ORIF of tibial pilon fracture, unchanged alignment. Report dictated by Elia Daugherty MD. I, Dr. DONALD ODOM M.D. have personally reviewed and interpreted this examination/study. This report was electronically signed by DONALD ODOM M.D. ??on 11/27/2012 2:14 PM . Narrative 11/27/2012 2:14 PM LINER INSERTER Exam: Right ankle, 3 views Comparison: ??Right [...] RDERABLES documented in this encounter Visit Diagnoses Not on filedocumented in this encounter Care Teams Supervisor Mold [employer] Relationship Specialty Start Date End Date Say Low MD [address] [place] [address] PCP - General Internal Medicine 08/14/12 Edgar Geiger MD Cardiovascular Disease 08/14/12 documented as of this encounter
--- OUTSIDE RECORDS SUMMARY | 2024-09-22 19:00 | XMS_ITS | Encounter Summary ---
Author Organization [facility] Address [address] [place] [address] Care Team Providers Care Architectural Project Captain Name Role Phone Edgar Geiger MD Unavailable Unavailable Say Low MD Primary Care Provider [phone] Encounter Details Date Type Department Care Team (Late st Contact Info) Description 04/18/2012 Hospital Outpatient Visit Historic [facility] DEFAULT [address] [place] [address] Pasha Juarez MD [facility] [facility] [place] [address] Discharge Disposition: Home or Self Care Social [...] Name Priority Date/Time Associated Diagnosis Comments XR BONE LENGTH SCANOGRAM Routine 04/18/2012 9:44 AM CDT documented in this encounter Results * XR BONE LENGTH SCANOGRAM (04/18/2012 9:44 [...] pain documented in this encounter Care Teams Architectural Project Captain Relationship Specialty Start Date End Date Say Low MD [address] [place] [address] PCP - General Internal Medicine 08/14/12 Edgar Geiger MD Cardiovascular Disease 08/14/12 documented as of this encounter
--- OUTSIDE RECORDS SUMMARY | 2024-09-22 19:00 | XMS_ITS | Encounter Summary ---
Author Organization [facility] Address [address] [place] [address] Care Team Providers Care Advertising Account Manager Name Role Phone Edgar Geiger MD Unavailable Unavailable Say Low MD Primary Care Provider [phone] Encounter Details Date Type Department Care Team (Latest Contact Info) Description 04/18/2012 Hospital Outpatient Visit Historic [facility] DIAGNOSTIC RAD [address] [place] [address] Discharge Disposition: Home or Self [...] Comments XR TIBIA FIBULA RIGHT 2VW Routine 04/18/2012 8:58 AM CDT documented in this encounter Results * XR TIBIA FIBULA RIGHT 2VW (04/18/2012 8:58 AM CDT) Anatomical Region Laterality Modality Lower Extremity Other Impressions 04/18/2012 2:10 PM CDT Impression: Status post ORIF of Pilon fracture with no significant interval change. This examination has been personally reviewed and interpreted by Donald Alvarado M.D. (attending radiologist). Report dictated by Lien Vegas M.D. . Narrative 04/18/2012 2:10 PM CDT Right ??tib-fib, 2 views History: Tibia fracture ?? Comparison: Right ft tib-fib radiograph from ??03/28/12 Findings: The patient is status post ORIF of a distal tibia fracture. The fracture is unchanged in alignment. There is slight interval increased medial production. The hardware is intact. ??There is persistent diffuse soft tissue swelling. ?? Procedure Note Donald Alvarado MD - 01/01/2018 Right tib-fib, 2 views History: Tibia fracture Comparison: Right ft tib-fib radiograph from 03/28/12 Findings: The patient is status post ORIF of a distal tibia fracture. The fractureis unchanged in alignment. There is slight interval increased medialproduction. The hardware is intact. There is persistent diffuse softtissue swelling. IMPRESSION Impression: Status post ORIF of Pilon fracture with no significant interval change. This examination has been personally reviewed and interpreted by Juve Rayo (attending radiologist). Report dictated by Juve Shafer . Pasha Juarez MD DIAGNOSTIC IMAGING O RDERABLES documented in this encounter Visit Diagnoses Diagnosis Closed fracture of bone Closed fracture of unspecified bone documented in this encounter Care Teams Advertising Account Manager Relationship Specialty Start Date End Date Say Low MD [address] [place] [address] PCP - General Internal Medicine 08/14/12 Edgar Geiger MD Cardiovascular Disease 08/14/12 documented as of this encounter
--- OUTSIDE RECORDS SUMMARY | 2024-09-22 19:00 | XMS_ITS | Encounter Summary ---
Author Organization [facility] Address [address] [place] [address] Care Team Providers Care Pipe Smoker Machine Operator Name Role Phone Edgar Geiger MD Unavailable Unavailable Say Low MD Primary Care Provider [phone] Encounter Details Date Type Department Care Team (Late st Contact Info) Description 05/09/2012 Hospital Outpatient Visit Historic [facility] DEFAULT [address] [place] [address] Pasha Juarez MD [address] [place] [address] [place] [address] Discharge Disposition: Home or Self Care Social History Tobacco Use Types Packs/Day Years Used Date Smoking Tobacco: Never Assessed Sex and Gender Information Value Date Recorded Sex Assigned at Not on file Gender Identity Not on file Sexual Orientation Not on file documented as of this encounter Progress Notes * Baltazar Mercado MD - 05/09/2012 9:01 AM CDT Ortho Clinic Note Signed by Baltazar Mercado MD on 05/10/2012 1:50 PM Also Signed by Pasha Juarez MD on 05/11/2012 4:56 PM Author: Baltazar Mercado MD Service: (none) Author Type: Resident Date of Service: 05/09/2012 9:01 AM Filed: 05/10/2012 1:50 PM Note Type: Ortho Clinic Note Status: Signed Program Schedule Clerk: Baltazar Mercado MD (Resident) Cosigner: Pasha Juarez MD at 05/11/2012 4:56 PM Trans ID: [id number] Trans Status: Available Dictation Time: 05/09/2012 10:01 AM Trans Time: 05/09/2012 11:22 AM Trans Doc Type: Ortho Clinic Note DATE OF SERVICE: 05/09/2012 ATTENDING PHYSICIAN: Pasha Juarez M.D. HISTORY OF PRESENT ILLNESS: As follows: Patient is a pleasant 72-year-old gentleman who is status post removal of an epidermal inclusion cyst of his right lower extremity with secondary wound closure. At this point in time, he is approximately four to five weeks out. He is here for just a wound check. At this point in time, he is full weightbearing on the right lower extremity. He does follow up today earlier than expected due to complaints of some drainage at the wound site. Patient states that he has had some yellowish drainage over the course of the past week. Patient states that he filled his prophylaxis prescription that he was given at previous appointment, has been taking that and this is the seventh day of that. Otherwise, patient denies any surrounding erythema or surrounding redness. Denies any recent fevers or chills. PHYSICAL EXAMINATION: GENERAL: This patient is awake, alert and oriented x3, in no acute distress. He is pleasant and cooperative with the examination. EXTREMITIES: Focused examination of the right lower extremity demonstrates all incision sites to be well healed. He does have the medial incision site area at the proximal portion of it, which is status post removal of the cyst. This area is approximately 1 cm x 7 mm that has a good clean base to it with no active drainage. The surrounding area is not erythematous and not significantly warmer than the rest of his leg. There are sutures that remain to be intact. His neurovascular examination is intact distally. IMAGING: None today. ASSESSMENT AND PLAN: This is a 72-year-old male who is status post removal of cyst with some drainage from the wound area. At this point in time, we feel that this is not necessarily infectious cause and probably due to edema and drainage of edema. Patient was instructed to continue to wear his compression stocking and was given a new one of these today in clinic. Patient was also given a refill for ciprofloxacin 500 mg one tablet orally b.i.d., #20, with no refills and was told to only fill this if he continues to have issues with drainage. He was also given a prescription refill for Talala 5/325 mg one tab orally t.i.d. p.r.n. pain, #90, with one refill. He was also instructed that he may get eozr-kdc-jvetnly ibuprofen as needed for pain. At this point in time, patient can follow up in his previously scheduled clinic appointment or if he feels like he is doing well, he may cancel it. At that point in time, we will get three views of his right ankle. Pasha Juarez MD Dictated by Baltazar Mercado M.D. TR:HILARY CDT CDT Dictation ID: [id number]/Confirmation #: [id number] Sent from eScription - CurrentDate: 05/09/2012 10:23 Sent from eScription - CurrentDate: [id number] Sent from eScription - LatestRevisionDate: documented in this encounter Plan of Treatment Not on file documented as of this encounter Visit Diagnoses Not on filedocumented in this encounter Care Teams Pipe Smoker Machine Operator Relationship Specialty Start Date End Date Say Low MD [address] [place] [address] PCP - General Internal Medicine 08/14/12 Edgar Geiger MD Cardiovascular Disease 08/14/12 documented as of this encounter
--- OUTSIDE RECORDS SUMMARY | 2024-09-22 19:00 | XMS_ITS | Encounter Summary ---
Author Organization [facility] Address [address] [place] [address] Care Team Providers Care Bridge Mechanic Name Role Phone Edgar Geiger MD Unavailable Unavailable Say Low MD Primary Care Provider [phone] Encounter Details Date Type Department Care Team (Latest Contact Info) Description 03/28/2012 Hospital Outpatient Visit Historic [facility] DIAGNOSTIC RAD [address] [place] [address] Discharge Disposition: Home or Self [...] XR ANKLE RIGHT 3VW OR MORE Routine 03/28/2012 9:44 AM CDT documented in this encounter Results * XR ANKLE RIGHT 3VW OR MORE (03/28/2012 9:44 AM CDT) Anatomical Region Laterality Modality Lower Extremity Other Impressions 03/28/2012 2:58 PM CDT IMPRESSION: Status post pilon fracture without significant interval change. This examination has been personally reviewed and interpreted by Yessenia Bello M.D. (attending radiologist). ??Report dictated by ??Damian Guan M.D. (resident). Narrative 03/28/2012 2:58 PM CDT Right ankle, 3 views History: Right tibial plafond fracture Comparison: 03/14/2012 Findings: There has been no significant change since the prior exam. ??The patient is status post ORIF for a tibial pilon fracture. The orthopedic hardware is intact. ??The osseous structures are unchanged in alignment. Procedure Note Yessenia Bello MD - 01/01/2018 Right ankle, 3 views History: Right tibial plafond fracture Comparison: 03/14/2012 Findings: There has [...] M.D.(resident). Pasha Juarez MD DIAGNOSTIC IMAGING O DASHA documented in this encounter Visit Diagnoses Diagnosis Closed fracture of bone Closed fracture of unspecified bone documented in this encounter Care Teams Bridge Mechanic Relationship Specialty Start Date End Date Say Low MD [address] [place] [address] PCP - General Internal Medicine 08/14/12 dEgar Geiger MD Cardiovascular Disease 08/14/12 documented as of this encounter
--- OUTSIDE RECORDS SUMMARY | 2024-09-22 19:00 | XMS_ITS | Encounter Summary ---
Author Organization [facility] Address [address] [place] [address] Care Team Providers Care Local Driver Name Role Phone Edgar Geiger MD Unavailable Unavailable Say Low MD Primary Care Provider Encounter Details Date Type Department Care Team (Late st Contact Info) Description 06/20/2012 Hospital Outpatient Visit Historic [facility] DEFAULT [address] [place] [address] Pasha Juarez MD [facility] [place] [address] Social History Tobacco Use Types Packs/Day Years Used Date Smoking Tobacco: Never Assessed Sex and Gender Information Value Date Recorded Sex Assigned at Not on file Gender Identity Not on file Sexual Orientation Not on file documented as of this encounter Plan of Treatment Not on file documented as of this encounter Visit Diagnoses Not on filedocumented in this encounter Care Teams Local Driver Relationship Specialty Start Date End Date Say Low MD [address] [facility] [place] [place] [phone] PCP - General Internal Medicine 08/14/12 Edgar Geiger MD Cardiovascular Disease 08/14/12 documented as of this encounter
--- OUTSIDE RECORDS SUMMARY | 2024-09-22 19:00 | XMS_ITS | Encounter Summary ---
Author Organization [facility] Address [address] [place] [address] Care Team Providers Care Adoption Coordinator Name Role Phone Edgar Geiger MD Unavailable Unavailable Say Low MD Primary Care Provider [phone] Encounter Details Date Type Department Care Team (Latest Contact Info) Description 11/13/2012 [facility] - Orthopedics [address] [place] [address], [place] [address] Elgin Francisco, [address] [place] [address] Discharge Disposition: Home or Self [...] Comments XR ANKLE RIGHT 3VW OR MORE STAT 11/13/2012 12:31 PM FENCE ERECTOR XR TIBIA FIBULA RIGHT 2VW STAT 11/13/2012 12:31 PM FENCE ERECTOR documented in this encounter Results * XR ANKLE RIGHT 3VW OR MORE (11/13/2012 12:31 PM FENCE ERECTOR) Anatomical Region Laterality Modality Lower Extremity Other Impressions 11/14/2012 10:28 AM FENCE ERECTOR IMPRESSION: Status post ORIF tibial pilon fracture, unchanged alignment. Report dictated by Elia Daugherty MD. I, Dr. YESSENIA BELLO M.D. have personally reviewed and interpreted this examination/study. This report was electronically signed by YESSENIA BELLO M.D. ??on 11/14/2012 10:28 AM . Narrative 11/14/2012 10:28 AM FENCE ERECTOR EXAM: Right ankle, 3 views HISTORY: fracture COMPARISON: Right ankle, 3 views 06/20/2012 FINDINGS: The patient is status post ORIF of a tibial pilon fracture. There is unchanged alignment of the fracture. There is increased bone formation about the fracture lines which are less apparent on the current exam than on the prior. The orthopedic hardware is intact and unchanged in position. There is persistent soft tissue swelling. Procedure Note Yessenia eBllo MD - 01/01/2018 EXAM: Right ankle, 3 views HISTORY: fracture COMPARISON: Right ankle, 3 views 06/20/2012 FINDINGS: The patient is status post ORIF of a tibial pilon fracture. There isunchanged alignment of the fracture. There is increased bone formationabout the fracture lines which are less apparent on the current exam thanon the prior. The orthopedic hardware is intact and unchanged in position. There is persistent soft tissueswelling. IMPRESSION IMPRESSION: Status post ORIF tibial pilon fracture, unchanged alignment. Report dictated by Elia Daugherty MD. I, Dr. YESSENIA BELLO M.D. have personally reviewed and interpreted thisexamination/study. This report was electronically signed by YESSENIA BELLO M.D. on 11/14/201210:28 AM . Elgin Francisco DO DIAGNOSTIC IMAGING O RDERABLES * XR TIBIA FIBULA RIGHT 2VW (11/13/2012 12:31 PM FENCE ERECTOR) Anatomical Region Laterality Modality Lower Extremity Other Impressions 11/14/2012 10:23 AM FENCE ERECTOR IMPRESSION: Status post ORIF of pilon fracture with no significant interval change in alignment. Report dictated by Elia Daugherty MD. I, Dr. YESSENIA BELLO M.D. have personally reviewed and interpreted this examination/study. This report was electronically signed by YESSENIA BELLO M.D. ??on 11/14/2012 10:23 AM . Narrative 11/14/2012 10:23 AM FENCE ERECTOR EXAM: Tibia and fibula, 2 views HISTORY: fracture COMPARISON: Tibia and fibula, 2 views 04/18/2012 FINDINGS: The patient is status post ORIF of the a distal tibial fracture. The fracture is unchanged in alignment. There is increased bone formation about the fracture lines which are less apparent on the current exam. The orthopedic hardware is intact and unchanged in position. ??Diffuse soft tissue swelling is redemonstrated. Procedure Note Yessenia Bello MD - 01/01/2018 EXAM: Tibia and fibula, 2 views HISTORY: fracture COMPARISON: Tibia and fibula, 2 views 04/18/2012 FINDINGS: The patient is status post ORIF of the a distal tibial fracture. Thefracture is unchanged in alignment. There is increased bone formationabout the fracture lines which are less apparent on the current exam. Theorthopedic hardware is intact and unchanged in position. Diffuse soft tissue swelling is redemonstrated. IMPRESSION IMPRESSION: Status post ORIF of pilon fracture with no significant interval change inalignment. Report dictated by Elia Daugherty MD. I, Dr. YESSENIA BELLO M.D. have personally reviewed and interpreted thisexamination/study. This report was electronically signed by YESSENIA BELLO M.D. on 11/14/201210:23 AM . Elgin Francisco DO DIAGNOSTIC IMAGING O RDERABLES documented in this encounter Visit Diagnoses Not on filedocumented in this encounter Care Teams Adoption Coordinator Relationship Specialty Start Date End Date Say Low MD [address] [place] [phone] PCP - General Internal Medicine 08/14/12 Edgar Geiger MD Cardiovascular Disease 08/14/12 documented as of this encounter
--- OUTSIDE RECORDS SUMMARY | 2024-09-22 19:00 | XMS_ITS | Encounter Summary ---
Author Organization [facility] Address [address] [place] [address] Care Team Providers Care Meat Processor Name Role Phone Edgar Geiger MD Unavailable Unavailable Say Low MD Primary Care Provider [phone] Encounter Details Date Type Department Care Team (Latest Contact Info) Description 04/07/2012 Anesthesia Historic Visit [facility] [address] [place] [address] Type 2 or unspecified type diabetes mellitus (HCC) Social History Tobacco Use Types Packs/Day Years Used Date Smoking Tobacco: Never Assessed Sex and Gender Information Value Date Recorded Sex Assigned at Not on file Gender Identity Not on file Sexual Orientation Not on file documented as of this encounter Plan of Treatment Not on file documented as of this encounter Visit Diagnoses Diagnosis Type 2 or unspecified type diabetes mellitus (HCC) documented in this encounter Care Teams Meat Processor Relationship Specialty Start Date End Date Say Low MD [address] [place] [address] PCP - General Internal Medicine 08/14/12 Edgar Geiger MD Cardiovascular Disease 08/14/12 documented as of this encounter
--- OUTSIDE RECORDS SUMMARY | 2024-09-22 19:00 | XMS_ITS | Encounter Summary ---
Author Organization [facility] Address [address] [place] [address] Care Team Providers Care Lining Stitcher Name Role Phone dEgar Geiger MD Unavailable Unavailable Say Low MD Primary Care Provider [phone] Encounter Details Date Type Department Care Team (Late st Contact Info) Description 04/18/2012 Hospital Outpatient Visit Historic [facility] DEFAULT [address] [place] [address] Pasha Juarez MD [address] [place] [address] [place] [address] Discharge Disposition: Home or Self Care Social History Tobacco Use Types Packs/Day Years Used Date Smoking Tobacco: Never Assessed Sex and Gender Information Value Date Recorded Sex Assigned at Not on file Gender Identity Not on file Sexual Orientation Not on file documented as of this encounter Progress Notes * Cheng Pierre MD - 04/18/2012 10:32 AM CDT Ortho Clinic Note Signed by Pasha Juarez MD on 04/20/2012 7:00 AM Author: Cheng Pierre MD Service: (none) Author Type: Resident Date of Service: 04/18/2012 10:32 AM Filed: 04/20/2012 7:00 AM Note Type: Ortho Clinic Note Status: Signed Ccna: Pasha Juarez MD (Physician) Trans ID: [id number] Trans Status: Available Dictation Time: 04/18/2012 11:32 AM Trans Time: 04/18/2012 11:13 PM Trans Doc Type: Ortho Clinic Note DATE OF SERVICE: 04/18/2012 HISTORY OF PRESENT ILLNESS: This is a 71-year-old male who is status post removal of a epidermal inclusion cyst of his right lower extremity with secondary wound closure. He is approximately 2 weeks out. He is here for just a wound check. He at that time was full weightbearing and sent home on some Cipro. He that he took Cipro for about four days, after which he started to get sick and decided to self discontinue this. He states that he has been doing fairly well. The only complaint he has really at this point is some swelling issues as well as some hip pain with respect to the cyst. He has no complaints. He has no fevers or chills. Denies any numbness or tingling down that leg. PHYSICAL EXAMINATION: GENERAL: This is a well-developed, well-nourished male in no acute distress. EXTREMITIES: Focused examination of his right lower extremity at the incision site shows it to be healing appropriately without any signs of infection or surrounding erythema or drainage. He does have the Maxon suture still visible and the wound doest not dehisced in any way. Focused examination of his hip shows mild leg length discrepancy on the right being shorter compared to the left. Otherwise, he has full range of motion of the hip without any pain. He does not have any notable abnormalities with his gait. IMAGING: We did obtain scanogram which showed that he is approximately 0.8 cm or 0.3 inches shorter on the right side, which seems to be coming from the hip and not from the fracture site, otherwise normal x-rays. Three views of his right ankle demonstrate again no interval changes in his hardware or gross alignment since the last films. ASSESSMENT AND PLAN: This is a 71-year-old male who is status post removal of an epidermal inclusion cyst of his right lower extremity. At this time, we recommend he may begin showering. He is to leave the stitches absorbable. We will recommend that he get a shoe insert for his hip pain secondary to a 0.8 cm leg length discrepancy with the right being shorter. We told him to get this over the encounter, measuring about 0.25 inch insert on the right side. He is going to try this and he will come back and see us in about two months, at which time we will decide if he needs any further x-rays. Pasha Juarez MD Dictated by Cheng Pierre M.D. TR:MARICARMEN CDT CDT Dictation ID: [id number]/Confirmation #: [id number] Sent from eScription - CurrentDate: 04/18/2012 22:41 Sent from eScription - CurrentDate: [id number] Sent from eScription - LatestRevisionDate: documented in this encounter Plan of Treatment Not on file documented as of this encounter Visit Diagnoses Not on filedocumented in this encounter Care Teams Lining Stitcher Relationship Specialty Start Date End Date Say Low MD [address] [place] [phone] PCP - General Internal Medicine 08/14/12 Edgar Geiger MD Cardiovascular Disease 08/14/12 documented as of this encounter
--- OUTSIDE RECORDS SUMMARY | 2024-09-22 19:00 | XMS_ITS | Encounter Summary ---
Author Organization [facility] Address [address] [place] [address] Care Team Providers Care Certified Detention Deputy Name Role Phone Edgar Geiger MD Unavailable Unavailable Say Low MD Primary Care Provider [phone] Encounter Details Date Type Department Care Team (Late st Contact Info) Description 03/28/2012 Hospital Outpatient Visit Historic [facility] [address] [place] [address] Pasha Juarez MD [address] [place] [address] [place] [address] Discharge Disposition: Home or Self Care Social History Tobacco Use Types Packs/Day Years Used Date Smoking Tobacco: Never Assessed Sex and Gender Information Value Date Recorded Sex Assigned at Not on file Gender Identity Not on file Sexual Orientation Not on file documented as of this encounter Progress Notes * ProviderGiovanni MD - 03/28/2012 1:34 PM CDT Ortho Clinic Note Signed by Mina Seymour MD on 03/29/2012 11:03 PM Also Signed by Pasha Juarez MD on 04/07/2012 9:07 AM Author: Mina Seymour MD Service: (none) Author Type: Resident Date of Service: 03/28/2012 1:34 PM Filed: 03/29/2012 11:03 PM Note Type: Ortho Clinic Note Status: Signed Heel Lift Gouger: Mina Seymour MD (Resident) Cosigner: Pasha Juarez MD at 04/07/2012 9:07 AM Trans ID: [id number] Trans Status: Available Dictation Time: 03/28/2012 2:34 PM Trans Time: 03/29/2012 1:31 AM Trans Doc Type: Ortho Clinic Note DATE OF SERVICE: 03/28/2012 ATTENDING PHYSICIAN: Pasha Juarez M.D. HISTORY OF PRESENT ILLNESS: This is a 71-year-old male status post ORIF of his complex right tibial plafond fracture. Patient returns to clinic today for further followup visit. Patient does have complaint of medial sided distal tibial drainage, which may be related to the retained stitch and formation of granuloma. There is no sign of infection around that stitch. He did complete a course of antibiotics. There is a smaller granuloma just distal to that region which recently dried up and is no longer draining. Patient does complain of itching around the anterior aspect of his incisions. He does occasionally have swelling in his legs, but is not where his compressive stockings, which he had been asked to wear in the past. He does mention that he has increase in sensation around the medial aspect of his foot, which had been numb previously. His pain is relatively controlled. He does require 3 to 4 Vicodin a day now. He has been weaning himself off of these. Patient would be interested in surgical management of his granuloma. PHYSICAL EXAMINATION: Focused exam of the right lower extremity: Patient's incisions are well healed except for the 2 pin sites on the medial aspect of the distal tibia. There is a healthy granulation tissue present in these sites. The most proximal one is draining small amount of serous fluid. There is a potential that there is a retained stitch here causing the skin irritation and formation of granuloma. There is a smaller one just distal. Patient has limited range of motion of the right ankle when compared to contralateral side, but is relatively happy with how it has progress over past several months. He does have 5/5 strength in EHL and FHL. IMAGING: Three views of the right ankle and 2 views of the tib-fib showed intact hardware. No signs of loosening or breakage and good callus formation around the tibial plafond hardware. ASSESSMENT AND PLAN: This is a 71-year-old male status post open reduction and internal fixation of his right distal tibial plafond with retained granuloma. He is now approximately 10 months out from his original injury. It is determined that patient should have granuloma excised and closed to further aid in healing of the incision site. Patient will be contacted for scheduling of surgery. Pasha Juarez MD Dictated by Mina Seymour MD TR:ZULMA CDT CDT Dictation ID: [id number]/Confirmation #: [id number] Sent from eScription - CurrentDate: 03/29/2012 01:06 Sent from eScription - CurrentDate: [id number] Sent from eScription - LatestRevisionDate: 03/29/2012 01:06 CDT documented in this encounter Plan of Treatment Not on file documented as of this encounter Visit Diagnoses Not on filedocumented in this encounter Care Teams Certified Detention Deputy Relationship Specialty Start Date End Date Say Low MD [id number] [facility] [id number] PCP - General Internal Medicine 08/14/12 Edgar Geiger MD Cardiovascular Disease 08/14/12 documented as of this encounter
--- OUTSIDE RECORDS SUMMARY | 2024-09-22 19:00 | XMS_ITS | Encounter Summary ---
Author Organization [facility] Address [address] [place] [address] Care Team Providers Care Engineering Project Designer Name Role Phone Edgar Geiger MD Unavailable Unavailable Say Low MD Primary Care Provider [phone] Reason for Visit * Reason Onset Date Comments MEDICATION REFILL 11/07/2012 Encounter Details Date Type Department Care Team (Late st Contact Info) Description 11/07/2012 Refill [facility] [address] [place] [id number] Edgar Geiger MD RETIRED MEDICATION REFILL Social [...] encounter Miscellaneous Notes * Telephone Encounter - [place] - 11/07/2012 1:11 PM CST Pharmacy requesting a refill Requested Prescriptions Pending Prescriptions Disp Refills ??? olmesartan-hydrochlorothiazide (BENICAR HCT) 40-12.5 MG tablet 30 Tab 6 Sig: Take 1 Tab by mouth once daily. Last office visit: 08/16/2012 Next office visit: 02/13/2013 [employer] SYSTEM[employer] DEVELOPER documented in this encounter Plan of Treatment Not on file documented as of this encounter Visit Diagnoses Not on filedocumented in this encounter Care Teams Engineering Project Designer Relationship Specialty Start Date End Date Say Low MD [address] [place] [phone] PCP - General Internal Medicine 08/14/12 Edgar Geiger MD Cardiovascular Disease 08/14/12 documented as of this encounter
--- OUTSIDE RECORDS SUMMARY | 2024-09-22 19:00 | XMS_ITS | Encounter Summary ---
Author Organization [facility] Address [address] [place] [address] Care Team Providers Care Electric Motor Repair Supervisor Name Role Phone Edgar Geiger MD Unavailable Unavailable Say Low MD Primary Care Provider [phone] Encounter Details Date Type Department Care Team (Latest Contact Info) Description 11/20/2012 Hospital Outpatient Visit Historic [facility] [address] [place] [id number] [place] Francisco, DO [address] [facility] [address] [place] [phone] Discharge Disposition: Home or Self Care Social [...] on filedocumented in this encounter Care Teams Electric Motor Repair Supervisor Relationship Specialty Start Date End Date Say Low MD [address] [place] [address] PCP - General Internal Medicine 08/14/12 Edgar Geiger MD Cardiovascular Disease 08/14/12 documented as of this encounter
--- OUTSIDE RECORDS SUMMARY | 2024-09-22 19:02 | XMS_ITS | Referral Summary ---
Author Organization [facility] al Address [address] [place] [address] Care Team Providers Care Smoking Pipe Coater Name Role Phone Say Low MD Primary Care Provider [phone] Encounters Date Type Department Care Team Description 09/12/2024 11:15 AM MANAGER PRICING Ancillary Procedure [facility] [address] [place] [address] [place] [phone] NICM (nonischemic cardiomyopathy) (CMS/HCC) (HCC) (Primary Dx); AV node dysfunction; Pacemaker 09/05/2024 Telephone [facility] [address] [facility] [address] [place] [address] Shiva Anne MD low BPS'? 08/29/2024 Orders Only [facility] [address] [place] [address] [address], [place] [phone] Wayne Davis MD NICM (nonischemic cardiomyopathy) (CMS/HCC) (HCC) (Primary Dx) 08/28/2024 11:30 AM MANAGER PRICING Ancillary Procedure [facility] [address] [place] [address] [address], [place] [address] NICM (nonischemic cardiomyopathy) (CMS/HCC) (HCC) (Primary Dx); Pacemaker 08/15/2024 1:48 PM MANAGER PRICING Anesthesia Event [facility] [address] [place] [phone] Yuly Bell MD Lorusso, Chynna Janae, CRNA 08/15/2024 2:50 PM [facility] - 08/15/2024 4:40 PM [facility] Surgery [facility] [address] [place] [phone] Wayne Davis MD REMOVE/REPLACE PACEMAKER (PPM) MULTI LEAD SYSTEM [id number] 08/15/2024 12:30 PM MANAGER PRICING - 08/15/2024 7:16 PM [facility] Hospital Encounter [facility] [address] [place] [phone] Wayne Davis MD Pacemaker; Paroxysmal atrial fibrillation (CMS/HCC) (HCC) Discharge Disposition: Discharge to home or self care 07/19/2024 Telephone [facility] [address] [place] [phone] Celestina Perez, B.A. 07/19/2024 12:00 PM CDT Office Visit [facility] [address] [place] [phone] Wayne Davis MD Cardiac arrhythmia, unspecified cardiac arrhythmia type (Primary Dx); Pacemaker; CHB (complete heart block) (CMS/HCC) (HCC); Typical atrial flutter (CMS/HCC) (HCC); NICM (nonischemic cardiomyopathy) (CMS/HCC) (HCC) 07/19/2024 11:45 AM CDT Ancillary Procedure [facility] [address] [place] [phone] Pacemaker (Primary Dx); AV node dysfunction; Bradycardia 06/27/2024 Orders Only [facility] [address] [place] [phone] Wayne Davis MD AV node dysfunction (Primary Dx); Bradycardia 06/25/2024 Telephone [facility] [address] [facility] [address] [place] [phone] Shiva Anne MD Med Management from Last 3 Months Allergies No known active allergies Medications tamsulosin (FLOMAX) 0.4 mg capsule,extended release 24hr take 1 capsule by oral route every day 1/2 hour following the same meal each day 0 0 09/10/20 15 Active Additional Information Patient taking differently:0.4 mgoral Every morning, Indications: Urolithiasis, Informant: Self, Reported on 08/15/2024 SYNJARDY XR 5-1,000 mg tablet, IR & ER, biphasic 24hr Take 1,000 mg by mouth every morning 0 03/28/20 18 Active cholecalciferol (VITAMIN D-3) 2,000 unit tablet Take 1 tablet (2,000 Units total) by mouth 2 (two) times a day Active omeprazole (PriLOSEC) 40 mg capsule Take 1 capsule (40 mg total) by mouth daily Active allopurinoL (ZYLOPRIM) 300 mg tablet Take 0.5 tablets (150 mg total) by mouth daily 150 mg daily 12/15/19 20 Active potassium citrate ER (UROCIT-K) 10 mEq (1,080 mg) CR tabletIndication s:Nephrolithiasi s Take 1 tablet (10 mEq total) by mouth daily 90 tablet 4 03/03/20 21 Active carvediloL (COREG) 12.5 mg tablet Take 1 tablet (12.5 mg total) by mouth 2 (two) times a day with meals Active furosemide (LASIX) 40 mg tablet Take 1 tablet (40 mg total) by mouth every other day Active aspirin 81 mg enteric coated tablet Take 1 tablet (81 mg total) by mouth daily Active folic acid (FOLVITE) 1 mg tablet Take 1 tablet (1 mg total) by mouth daily Active vitamin b complex tablet Take 1 tablet by mouth daily Active quercetin 500 mg capsule Take by mouth 2 (two) times a day Active ascorbic acid (vitamin C) 1,000 mg tablet Take 1 tablet (1,000 mg total) by mouth 2 (two) times a day Active spironolactone (ALDACTONE) 25 mg tablet Take 0.5 tablets (12.5 mg total) by mouth daily 03/22/20 24 025 Active atorvastatin (LIPITOR) 10 mg tablet Take 0.5 tablets (5 mg total) by mouth daily 45 tablet 2 05/15/20 24 Active rivaroxaban (Xarelto) 20 mg tabletIndication s:Paroxysmal atrial fibrillation ([facility]/HCC) (HCC) Take 1 tablet (20 mg total) by mouth daily 90 tablet 3 08/18/20 24 Active losartan (COZAAR) 50 mg tablet Take 1.5 tablets (75 mg total) by mouth daily 45 tablet 11 09/05/20 24 025 Active losartan (COZAAR) 100 mg tablet take 1 tablet by oral route every day 30 0 11/17/19 16 024 Discontin ued(Other ) Active Problems Problem Noted Date Diagnosed Date CHB (complete heart block) ([facility]) 07/19/2024 Typical atrial flutter ([facility]) 07/19/2024 Assessment & Plan (07/19/2024 2:15 PM CDT): Persistent atrial fibrillation, rendered asymptomatic by way of pacing / CHB. I will not make any changes at this time. The patient's device was interrogated and found to be functioning appropriately. No substantial changes to programming were made. The patient is enrolled in [facility], and we will continue to follow with remote monitoring when possible, and in-office device checks when necessary. The patient has a [id number] score of 4 (annualized risk of stroke 4%). I have therefore recommended continued anticoagulation for thromboprophylaxis. NICM (nonischemic cardiomyopathy) ([facility]) 07/03 CAD S/P percutaneous coronary angioplasty 2020 Coronary artery disease (CAD) excluded Hx of CABG 02/22/2020 Coronary artery disease invo lving coronary bypass graft of [place] heart with angina pectoris ([facility]) 02/22/2020 Assessment & Plan (02/22/2020 6:54 PM CDT): History of CABG Now with exertional dyspnea Even after 20 minutes of talking with him unclear if this is angina or not. Patient seems to think it is mostly due to lower back pain. He had reassuring cardiac evaluation prior to his back surgery 9 months ago with reassuring echocardiogram and MPI imaging. I would favor not repeating these tests as they were done less than 12 months ago and patient does not have any new typical symptoms. Would favor encouraging him to get his lumbar MRI and see if there is anything further to be done for his back. If he needs repeat surgery be reasonable to repeat his cardiac preoperative testing at that time. I did check, the [employer] wraps are are coming to [facility]. So I think he should be able to get his MRI done. Preoperative cardiovascular examination 05/01/20 19 Assessment & Plan (05/01/2019 11:30 AM CDT): Due to the silent ischemia, CABG in 2003, he needs an aggressive evaluation. Nephrolithiasis 01/04/2019 Overview (01/04/2019): Added automatically from request for surgery [id number] Pacemaker 07/04/2017 Overview (07/04/2017): [employer] DDD Essentio L111 pacemaker implanted on 07/04/17 for Mobitz Ii. Claudia/Ryan - Bailey Assessment & Plan (07/19/2024 2:14 PM CDT): Complete heart block, status post pacemaker. The patient's device was interrogated and found to be functioning appropriately. No substantial changes to programming were made. The patient is enrolled in the [facility], and we will continue to follow with remote monitoring when possible, and in-office device checks when necessary. He has 100% paced. His echocardiogram demonstrated progressive LV dysfunction, and I recommended that he undergo placement of an LV pacing lead to counteract this effect. I explained the risks of device placement, including device infection, hematoma, vascular injury, pneumothorax, myocardial perforation, lead dislodgement, and . I estimated the risks of these to be low. We also discussed the specific benefits of device placement. My office will make the appropriate arrangements. From: Keon GILLESPIE, Gabriel KK, Bernard Francisco et al. 2022 HRS/APHRS/LAHRS guideline on cardiac physiologic pacing for the avoidance and mitigation of heart failure. Heart Rhythm 2022;20:e17-e91. Class I: In patients with a CIED with a decline in LV function or worsening of HF symptoms attributed to substantial ventricular pacing, STONE PLANER with BiV pacing is recommended to improve LV function and improve HF symptoms. Bradycardia 06/05/2017 Assessment & Plan (06/05/2017 1:46 PM CDT): The patient has symptomatic bradycardia in relation to his progressive AV xavier disease. I recommended that he consider placement of a pacemaker, and I explained the indications, risks, and benefits. The patient would like to proceed, and we will make the appropriate arrangements. 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 Davis Assessment & Plan (04/29/2017 4:29 PM CDT): No recurrence off beta-tri therapy. Discussed the need to avoid any AV xavier blocking agents. 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 Wayne Davis. 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 Never 07/13/2021 Average Number of Drinks Not on file 021 Frequency of Binge Drinking Not on file 07/03 Personal Safety Answer Date Recorded Have you ever been in or are you currently in a harmful physical or emotional relationship or is someone making you feel afraid or unsafe? Denies 08/15/2024 Sex and Gender Information Value Date Recorded Sex Assigned at Not on file Legal Sex Male 8:04 PM MANAGER PRICING Gender Identity Male 07/10/2021 8:31 AM CDT Sexual Orientation Straight 06/12/2021 8: 44 AM CDT Last Filed Vital Signs Vital Sign Reading Time Taken Comments Blood Pressure 114/58 08/15/2024 5:50 PM MANAGER PRICING Pulse 81 08/15/2024 5:50 PM MANAGER PRICING Temperature 37.1 ??C (98.8 ??F) 08/15/2024 1:03 PM CS T Respiratory Rate 26 08/15/2024 5:50 PM MANAGER PRICING Oxygen Saturation 93% 08/15/2024 5:50 PM MANAGER PRICING Inhaled Oxygen Concentration - - Weight 101.1 kg (222 lb 14.2 oz) 08/15/2024 1:03 PM MANAGER PRICING Height 172.7 cm (5' 8 ) 08/15/2024 1:03 PM MANAGER PRICING Body Mass Index 33.89 08/15/2024 1:03 PM MANAGER PRICING Plan of Treatment Not on file Medical Devices Implanted Type Area Keno Dealer Device Identifier Shelf Expiration Date Model / Serial / Lot [employer] Tabby Acuity X4 3.9-5.2fr 2.6fr 86cm Otw Quadripolar Long Straight [id number] - [id number] - [id number] Implanted:Qty: 1 on 08/15/2024 by Wayne Davis MD at [facility] Lead [employer] Tabby [id number] 04/28/2026 [id number] / [id number] / Pacemaker-07/04 Implanted:11/2016 (Quantity not on file) Pacemaker Chest Wall [employer] Tabby Pacemaker Single Chamber Well Testing Operator P Visionist 0.75x4.45x6.17 cm [id number] - [id number] - [id number] Implanted:Qty: 1 on 08/15/2024 by Wayne Davis MD at [facility] Pacemaker [employer] Tabby [id number] 06/08/2026 [id number] / [id number] / [employer] Tabby [id number] Synergy Xd Monorail 3.5mm 32mm 144cm Delivery System 1 Access - S0 - [id number] Implanted:Qty: 1 on 07/13/2021 by Troy Shipley MD at [facility] Stent Eggs Overnight Tabby 03/11/2023 [id number] / 0 / [id number] Description:LAD Explanted Type Area Keno Dealer Device Identifier Shelf Expiration Date Model / Serial / Lot [employer] [id number] Inlay [place] 6fr 28cm Pusher Fluoro Marker Atraumatic Insertion Latex Free - [id number] Implanted:Qty: 1 on 01/17/2019 by Concetta Thurston MD at [facility] Explanted:Qty: 1 on 01/31/2019 by Elvin Carrillo NP Stent Left: Ureter [employer] [id number] 07/13/2023 [id number] / / [id number] Procedures Procedure Name Priority Date/Time Associated Diagnosis Comments DEVICE CHECK - IN OFFICE Routine 09/12/2024 10:59 AM MANAGER PRICING AV node dysfunction DEVICE CHECK - IN OFFICE Routine 08/28/2024 11:01 AM MANAGER PRICING Pacemaker XR CHEST PA LATERAL 2 VIEWS ED Urgent/IP Urgent 08/15/2024 6:05 PM MANAGER PRICING XR CHEST 1 VIEW ED Urgent/IP Urgent 08/15/2024 4:28 PM MANAGER PRICING ECG 12-LEAD Routine 08/15/2024 4:03 PM MANAGER PRICING INSERTION OF BIV ELECTRODE Routine 08/15/2024 3:35 PM MANAGER PRICING Pacemaker IMPLANTABLE CARDIAC DEVICE Routine 08/15/2024 3:35 PM MANAGER PRICING Pacemaker ECG 12-LEAD STAT 08/15/2024 1:06 PM MANAGER PRICING POCT GLUCOSE DEVICE Routine 08/15/2024 1 2:57 PM MANAGER PRICING EGFR STAT 08/15/2024 12:48 PM MANAGER PRICING DIFFERENTIAL AUTO STAT 08/15/2024 12: 48 PM MANAGER PRICING BASIC METABOLIC PANEL STAT 08/15/2024 12:48 PM MANAGER PRICING CBC WITH AUTO DIFFERENTIAL STAT 08/15/2024 12:48 PM MANAGER PRICING ECG 12-LEAD Routine 07/19/2024 11:51 AM CDT Cardiac arrhythmia, unspecified cardiac arrhythmia type DEVICE CHECK - IN OFFICE Routine 07/19/2024 11:23 AM CDT AV node dysfunction Bradycardia CT ABDOMEN PELVIS WO CONTRAST Schedule Routine, Read Routine (OP Routine) 09/14/2022 9:43 AM MANAGER PRICING Nephrolithiasis from Last 3 Months or Most Recently Relevant to Health Maintenance Results * DEVICE CHECK - IN OFFICE (09/12/2024 10:59 AM MANAGER PRICING) Anatomical Region Laterality Modality Other Narrative 09/15/2024 3:28 PM MANAGER PRICING Table formatting from the original result was not included. BiV PACEMAKER CHECK (IN OFFICE) Patient ID: Drew Newman is a 84 y.o. male. This patient received a [employer] BiV Pacemaker. ??They had a routine in office device interrogation on 09/12/24. Device implant indications: ??Nonischemic cardiomyopathy, Mobitz type 2 ?? Interrogation of the patient's device demonstrates the following: Presenting EGM: ??A paced Bi V paced @ 60 bpm Underlying Rhythm: ??Paced at 40 ppm Original Device Settings Right Atrium Right Ventricle Left Ventricle Sensitivity (mV) 0.5 mV 2.5 mV 2.5 mV Pacemaker Outputs 2.5 V @ 0.4 ms 2.0 V @ 0.4 ms 2.5 V @ 0.4 ms Testing Measurements Right Atrium Right Ventricle Left Ventricle Sensitivity (mV) 6.1 mV paced mV paced mV Impedence (Ohms) 431 ohms 457 ohms 1031 ohms Pace Threshold 1.5 V @ 0.4 ms 0.6 V @ 0.4 ms 1.6 V @ 0.4 ms Pacing % 32 % 100 % 100 % Battery Status: ??11 years to SOFI Episodes last 90 days/Comments: AF Rush 0 %, longest duration 3 minutes and 35 seconds on 08/22. ?? Ventricular rates were controlled. ?? No new ventricular events. NORMAL DEVICE FUNCTION PROGRAMMED MEDICATIONS: Anti-coagulant(s): ??Aspirin 81 mg, Xarelto 20 mg daily Anti-arrhythmic(s): ??Coreg 12.5 mg twice a day PLAN: 1) normal [employer] BiV Pacemaker evaluation 2) [employer] remote transmission scheduled in 3 months. 3) Programming appropriate for device settings ?4) left subclavian incision well healed, remaining Dermabond removed without incident. Gisela Butler RN us Wayne Davis MD [facility] PRO CEDURES Final Result * DEVICE CHECK - IN OFFICE (08/28/2024 11:01 AM MANAGER PRICING) Anatomical Region Laterality Modality Other Narrative 09/01/2024 11:06 AM MANAGER PRICING Table formatting from the original result was not included. BiV PACEMAKER CHECK (IN OFFICE) Patient ID: Drew Newman is a 84 y.o. male. This patient received a [employer] BiV Pacemaker. ??They had a routine in office device interrogation on 08/28/24. Device implant indications: ??Nonischemic cardiomyopathy, complete heart block ?? Interrogation of the patient's device demonstrates the following: Presenting EGM: ??A paced Bi V paced @ 60 bpm Underlying Rhythm: ??Paced at 40 ppm Original Device Settings Right Atrium Right Ventricle Left Ventricle Sensitivity (mV) 0.5 mV 2.5 mV 2.5 mV Pacemaker Outputs 2.5 V @ 0.4 ms 2.0 V @ 0.4 ms 2.5 V @ 0.4 ms Testing Measurements Right Atrium Right Ventricle Left Ventricle Sensitivity (mV) 4.8 mV Paced mV paced mV Impedence (Ohms) 425 ohms 457 ohms 892 ohms Pace Threshold 1.00 V @ 0.4 ms 0.6 V @ 0.4 ms 1.4 V @ 0.4 ms Pacing % 37 % 100 % 100 % Battery Status: ??11 years to SOFI Episodes last 90 days/Comments: AF Rush <1 %, longest duration 3 minutes and 35 seconds. ?? No new ventricular events. NORMAL DEVICE FUNCTION PROGRAMMED MEDICATIONS: Anti-coagulant(s): ??Aspirin 81 mg, Xarelto 20 mg daily Anti-arrhythmic(s): ??None PLAN: 1) normal [employer] BiV Pacemaker evaluation 2) wound and device check in 1 month. 3) Programming appropriate for device settings ?4) left subclavian incision well approximated with Dermabond intact. Minimal swelling at incision site. ??No evidence of drainage, infection, or bruising. ??Reviewed postop instructions and restrictions. Gisela Butler RN Wayne Davis MD [facility] PRO CEDURES Final Result * XR Chest PA Lateral 2 View (08/15/2024 6:05 PM MANAGER PRICING) Anatomical Region Laterality Modality Body, Chest N/A Computed Radiogr aphy 08/15/2024 6:57 PM MANAGER PRICING Impressions 08/15/2024 6:57 PM MANAGER PRICING FINDINGS/IMPRESSION: Evaluation of the AP images are significantly limited due to overpenetration. Midline sternotomy wires are noted. Left chest wall cardiac pacer is redemonstrated. ??Mild right greater than left atelectatic changes are seen. ??No definite pleural effusion is noted. ??Evaluation for pneumothorax is limited due to limitation of the study. Electronically signed by: Adali Cat M.D. Narrative 08/15/2024 6:57 PM MANAGER PRICING EXAMINATION: XR CHEST PA LATERAL 2 VIEWS HISTORY: Cardiac Procedure COMPARISON: Chest x-ray on 08/15/2024 Procedure Note Adali Thapa MD - 08/15/2024 EXAMINATION: XR CHEST PA LATERAL 2 VIEWS HISTORY: Cardiac Procedure COMPARISON: Chest x-ray on 08/15/2024 IMPRESSION: FINDINGS/IMPRESSION: Evaluation of the AP images are significantly limited due to overpenetration. Midline sternotomy wires are noted. Left chest wall cardiac pacer is redemonstrated. Mild right greater than left atelectatic changes are seen. No definite pleural effusion is noted. Evaluation for pneumothorax is limited due to limitation of the study. Electronically signed by: Adali Cat M.D. us Wayne Davis MD [facility] XR PROCEDURES Final Result * X-ray chest 1 view (08/15/2024 4:28 PM MANAGER PRICING) Anatomical Region Laterality Modality Body, Chest N/A Computed Radiogr aphy 08/15/2024 4:53 PM MANAGER PRICING Narrative 08/15/2024 4:53 PM MANAGER PRICING EXAMINATION: ?? XR CHEST 1 VIEW DATE: ?? 08/15/2024 4:05 PM HISTORY: ??Cardiac Procedure COMPARISON: ??07/05/2017. ?? FINDINGS: Cardiopericardial silhouette is enlarged since previous exam but there is decreased lung expansion. ??There is mild pulmonary vascular congestion. ??Possible small basilar pleural effusions and compression atelectasis. ??No pneumothorax. Median sternotomy is stable. ??There is a pacemaker with biventricular and right atrial leads. Electronically signed by: Edgar Gavin M.D. Procedure Note Edgar Gavin MD - 08/15/2024 EXAMINATION: XR CHEST 1 VIEW DATE: 08/15/2024 4:05 PM HISTORY: Cardiac Procedure COMPARISON: 07/05/2017. FINDINGS: Cardiopericardial silhouette is enlarged since previous exam but there is decreased lung expansion. There is mild pulmonary vascular congestion. Possible small basilar pleural effusions and compression atelectasis. No pneumothorax. Median sternotomy is stable. There is a pacemaker with biventricular and right atrial leads. Electronically signed by: Edgar Gavin M.D. Wayne Davis MD [facility] XR PROCEDURES Final Result * ECG 12 lead (08/15/2024 4:03 PM MANAGER PRICING) 08/15/2024 4:03 PM MANAGER PRICING Narrative [facility] - 08/16/2024 3:42 PM MANAGER PRICING Vent Rate: 74 bpm RR Interval: 810 msec NH Interval: 0 msec QRS Duration: 206 msec QT Interval: 461 msec QTC Interval: 488 msec P-R-T [place]: 0 - 151 - 52 degrees IMPRESSION: ELECTRONIC VENTRICULAR PACEMAKER ABNORMAL RHYTHM ECG Electronically Signed By: Troy Shipley [facility] Card Wayne Davis MD ECG ORDERABLES Final R esult Performing Organization Address [facility] Co de Phone Number [facility] * BIVENTRICULAR PACEMAKER UPGRADE, INSERTION OF BIV ELECTRODE (08/15/2024 3:35 PM MANAGER PRICING) Anatomical Region Laterality Modality X-Ray Angiograph y Wayne Davis MD [facility] ELECTROPHYSIOLOGY [facility] OCS Final Result * ECG 12 lead (08/15/2024 1:06 PM MANAGER PRICING) 08/15/2024 1:06 PM MANAGER PRICING Narrative [facility] - 08/15/2024 1:38 PM MANAGER PRICING Vent Rate: 70 bpm RR Interval: 855 msec NH Interval: 145 msec QRS Duration: 176 msec QT Interval: 451 msec QTC Interval: 471 msec P-R-T [place]: 255 - 102 - -77 degrees IMPRESSION: ELECTRONIC VENTRICULAR PACEMAKER ABNORMAL RHYTHM ECG Electronically Signed By: Troy Shipley [facility] Card Wayne Davis MD ECG ORDERABLES Final R esult Performing Organization Address [facility] Phone Number [facility] [employer] [facility] * POCT glucose (08/15/2024 12:57 PM MANAGER PRICING) Glucose, POC 104 70 - 199 mg/dL Comment: For Glucose values <35 mg/dl when Hematocrit is >60 mg/dl,the test may not accurately detect significant hypoglycemia,and testing in the Laboratory should be considered if clinically indicated. Blood 08/15/2024 12:5 7 PM MANAGER PRICING 08/15/2024 12:57 PM MANAGER PRICING Wayne Davis MD LAB POCT ORDERABLES - D EVICE Final Result Performing Organization Address [facility] Co de Phone Number R[facility] [address] Department [place] [address] * (ABNORMAL) eGFR (08/15/2024 12:48 PM MANAGER PRICING) eGFR 40(L) >=60 mL/min/1. 73 m2 Comment: Interpretive Data Reference Interval Normal ?>/= 90 mL/min/1.73m2 Mildly decreased* ? 60 - 89 mL/min/1.73m2 Mildly to moderately decreased ?45 - 59 mL/min/1.73m2 Moderately to severely decreased ??30 - 44 mL/min/1.73m2 Severely decreased ?15 - 29 mL/min/1.73m2 Kidney Failure ?< 15 ??mL/min/1.73m2 *Relative to young adult level Estimated glomerular filtration rate is determined by the 2020 CKD-EPI equation recommended by the National Kidney Foundation (A Unifying Approach to GFR Estimation: Recommendations of the NKF-ASK Task Force on Reassessing the Inclusion of Race in Diagnosing Kidney Disease, JASN 2020). The CKD-EPI equation should not be used for patients with unstable renal function and has not been validated in children and those over 70. Current interpretive data was last reviewed 2021. Blood 08/15/2024 12:4 8 PM MANAGER PRICING 08/15/2024 1:07 PM MANAGER PRICING us Wayne Davis MD LAB BLOOD ORDERABLES Fi nal Result [facility] [address] Department [place] [address] * Differential, auto (08/15/2024 12:48 PM MANAGER PRICING) Neutrophil abs 5.7 1.5 - 6.5 K/cumm Imm gran abs 0.0 0.0 - 0.1 K/cumm [facility] Lymphocyte abs 1.4 0.8 - 3.3 K/cumm [facility] Monocyte abs 0.7 0.2 - 0.8 K/cumm [facility] Eosinophil abs 0.3 0.0 - 0.5 K/cumm [facility] Basophil abs 0.0 0.0 - 0.1 K/cumm [facility] Neutrophil pct 70.3 % [facility] Comment: Interpretive Data Percent cell count reference ranges are not reported, since discordance with absolute values may lead to misinterpretation of CBC data. Current Interpretive Data was last revised on 2018. Imm gran pct 0.2 % [facility] Comment: Interpretive Data Percent cell count reference ranges are not reported, since discordance with absolute values may lead to misinterpretation of CBC data. Current Interpretive Data was last revised on 2018. Lymphocyte pct 17.6 % [facility] Comment: Interpretive Data Percent cell count reference ranges are not reported, since discordance with absolute values may lead to misinterpretation of CBC data. Current Interpretive Data was last revised on 2018. Monocyte pct 8.3 % [facility] Comment: Interpretive Data Percent cell count reference ranges are not reported, since discordance with absolute values may lead to misinterpretation of CBC data. Current Interpretive Data was last revised on 2018. Eosinophil pct 3.1 % [facility] Comment: Interpretive Data Percent cell count reference ranges are not reported, since discordance with absolute values may lead to misinterpretation of CBC data. Current Interpretive Data was last revised on 2018. Basophil pct 0.5 % [facility] Comment: Interpretive Data Percent cell count reference ranges are not reported, since discordance with absolute values may lead to misinterpretation of CBC data. Current Interpretive Data was last revised on 2018. Blood 08/15/2024 12:4 8 PM MANAGER PRICING 08/15/2024 1:07 PM MANAGER PRICING us Wayne Davis MD LAB BLOOD ORDERABLES Fi nal Result [facility] [address] Department [place] [address] * (ABNORMAL) CBC with auto differential (08/15/2024 12:48 PM MANAGER PRICING) [facility] WBC 8.1 3.8 - 9.9 K/cumm Hgb 13.5 13.0 - 17.5 g/dL [facility] Hct 43.2 38.9 - 50.3 % [facility] Plt 252 150 - 400 K/cumm [facility] MPV 10.1 9.1 - 12.3 fL [facility] RBC 4.53 4.30 - 5.80 M/cumm [facility] MCV 95.4 81.3 - 96.4 fL [facility] MCH 29.8 27.1 - 33.3 pg [facility] MCHC 31.3(L) 32.3 - 35.7 g/dL [facility] RDW CV 15.9(H) 11.1 - 14.9 % [facility] RDW SD 56.1(H) 35.7 - 48.1 fL [facility] NRBC abs 0.00 0.00 - 0.01 K/cumm [facility] Blood 08/15/2024 12:4 8 PM MANAGER PRICING 08/15/2024 1:07 PM MANAGER PRICING us Wayne Davis MD LAB BLOOD ORDERABLES Fi nal Result [facility] [address] Department [place] [address] * (ABNORMAL) Basic metabolic panel (08/15/2024 12:48 PM MANAGER PRICING) [facility] Sodium 142 135 - 145 mmol/L Potassium, pl 5.4(H) 3.3 - 4.9 mmol/L [facility] Chloride 108 97 - 110 mmol/L [facility] CO2 19(L) 22 - 32 mmol/L [facility] Anion gap 15 2 - 15 mmol/L [facility] BUN 35(H) 6 - 25 mg/dL [facility] Creatinine 1.68(H) 0.80 - 1.30 mg/dL [facility] Glucose 111 70 - 199 mg/dL [facility] Comment: Interpretive Data Fasting glucose >/= 126 mg/dl is diagnostic for diabetes. ?? Fasting is defined as no caloric intake for at least 8 hours. Fasting glucose between 100 mg/dl to 125 mg/dl is diagnostic of prediabetes. In a patient with classic symptoms of hyperglycemia or hyperglycemic crisis, a random glucose >/= 200 mg/dl is diagnostic for diabetes. In the absence of unequivocal hyperglycemia, results should be confirmed by repeat testing. The classification and Diagnosis of Diabetes Diabetes Care 2021; 46: S19-S40. Current interpretive data was last revised 2022. Calcium 9.5 8.5 - 10.3 mg/dL [facility] Blood 08/15/2024 12:4 8 PM MANAGER PRICING 08/15/2024 1:07 PM MANAGER PRICING Wayne Davis MD LAB BLOOD ORDERABLES Fi nal Result [facility] [address] [place] [address] * ECG 12 lead (07/19/2024 11:51 AM CDT) us Wayne Davis MD ECG ORDERABLES Final R esult * DEVICE CHECK - IN OFFICE (07/19/2024 11:23 AM CDT) Anatomical Region Laterality Modality Other Narrative 07/22/2024 2:43 PM CDT Table formatting from the original result was not included. PM CHECK (IN OFFICE) Patient ID: Drew Newman is a 84 y.o. male This patient received a [employer] Pacemaker. 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 Interrogation of the patient's device demonstrates the following: Presenting EGM: ??A flutter V paced @ 70 bpm Underlying rhythm: ??Paced at 40 ppm Original Device Settings Right Atrium Right Ventricle Sensitivity (mV) 0.15 mV 2.5 mV Pacing Outputs 1.5 V @ 0.4 ms 2.0 V @ 0.4 ms Testing Measurements Right Atrium Right Ventricle Sensitivity (mV) 3.8 mV paced mV Impedence (Ohms) 462 ohms 459 ohms Pace Threshold Not done V @ ??ms 0.50 V @ 0.4 ms Pacing % <1 % 100 % Battery Status: ??< 3 months to SOFI Episodes last 90 days/Comments: AF Rush 100 % No new ventricular events. NORMAL DEVICE FUNCTION PROGRAMMED MEDICATIONS: Anti-coagulant(s): ??Aspirin 81 mg, Xarelto 20 mg daily Anti-arrhythmic(s): ??Coreg 12.5 mg twice a day PLAN: 1) normal [employer] Pacemaker evaluation 2) [employer] remote transmission scheduled in 3 months. 3) Programming appropriate for device measurements Gisela Butler RN us Wayne Davis MD [facility] PRO CEDURES Final Result * CT Abdomen Pelvis WO Contrast (09/14/2022 9:43 AM MANAGER PRICING) Anatomical Region Laterality Modality Body N/A Computed Tomogra phy 09/15/2022 10:0 0 AM MANAGER PRICING Narrative 09/15/2022 10:11 AM MANAGER PRICING EXAM DESCRIPTION: ?? CT ABDOMEN PELVIS WO CONTRAST REASON FOR STUDY: History of nephrolithiasis. ??Follow-up. TECHNIQUE: CT scan of the abdomen and pelvis performed without intravenous and ??without ??oral contrast using helical scanning technique. Reconstructed coronal and sagittal MPR images reviewed. All images stored on PACS. ?? Automated exposure control was used as a dose optimization technique for this examination. COMPARISON: ?? 01/04/2019 FINDINGS: The sensitivity for detection of visceral lesions is diminished without the use of intravenous contrast. LOWER CHEST: ?? Increased mild bibasilar ground-glass and reticulation. ??This likely represents a combination of atelectasis and scarring. LIVER: ?? The liver is unchanged in appearance with undulating surface. ??This likely reflects chronic underlying liver disease. ??No definite liver lesion is seen on this unenhanced CT examination. GALLBLADDER: ?? Partially distended. ??No CT evidence of acute cholecystitis. BILE DUCTS: ?? No intrahepatic or extrahepatic ductal dilatation. SPLEEN: ?? Normal size. ??No focal lesions. PANCREAS: ?? The pancreas is normal in size. ??No significant peripancreatic stranding or main ductal dilatation. ADRENALS: ?? Normal. KIDNEYS/URINARY TRACT: ?? The kidneys are normal in size. ?Moderate perinephric stranding, likely scarring. ??No hydronephrosis. ??Bilateral nonobstructing stones. ??The largest on the right measures 5 mm. ??The largest on the left measures proximally 5 mm. ??Prominence of the interpolar left kidney is grossly unchanged compared to 2019. ??A dominant 6.6 cm left renal cyst is noted which does not require specific follow-up. ??The urinary bladder is partially distended. ??Mild thickening and stranding of the urinary bladder. GI: ?? Stool throughout the colon which appears nondilated. ??A tiny hiatal hernia is seen. ??The small bowel appears nondilated without wall thickening or evidence of obstruction. ??A chronic small umbilical hernia is seen containing a nondilated loop of small bowel measuring approximately 2.4 by 1.7 cm (92). PERITONEUM: ?? No free air or ascites is seen. ??Prominent periportal lymph nodes are unchanged. RETROPERITONEUM: ?? Subcentimeter retroperitoneal lymph nodes, nonenlarged by size criteria. ??These are grossly unchanged. ??No inguinal lymphadenopathy is seen. REPRODUCTIVE: ?? Prominent prostate with mass effect on the posterior bladder wall. ??Small fat containing left inguinal hernia. VASCULATURE: ?? Extensive atherosclerosis within a nondilated aorta. MUSCULOSKELETAL: ?? Bone windows demonstrate moderate lower lumbar degenerative disc disease. OTHER: ?? No other abnormality. IMPRESSION: ?? 1. ?? Mild bladder wall thickening and stranding. ??This may be due to under distension or cystitis. ??Recommend correlation with urinalysis, urine cytology and PSA. 2. ?? Multiple bilateral nonobstructing renal calculi. REFERENCE: Unless otherwise specified, no follow-up imaging is recommended for incidental renal and adrenal lesions per consensus recommendations based on imaging criteria. Further lab evaluation could be pursued based on clinical findings. Management of the Incidental Renal Mass on CT: A White Paper of the ACR Incidental Findings Committee. J Am Walter Radiol. 2018 Nov;15(2):264-273. Management of Incidental Adrenal Masses: A White Paper of the ACR Incidental Findings Committee. J Am Walter Radiol. 2017 May;14(8):9438-1740. THIS IS AN ELECTRONICALLY VERIFIED FINAL REPORT 09/15/2022 10:11 AM - Electronically signed by ??Ko Haro M.D. AG: AG D: ??09/15/2022 10:11 AM T: ??09/15/2022 10:11 AM Report ID: [id number] Reading Location: ??[id number] Procedure Note Ko Haro MD - 09/15/2022 EXAM DESCRIPTION: CT ABDOMEN PELVIS WO CONTRAST REASON FOR STUDY: History of nephrolithiasis. Follow-up. TECHNIQUE: CT scan of the abdomen and pelvis performed without intravenousand without oral contrast using helical scanning technique. Reconstructed coronal and sagittal MPR images reviewed. All images stored on PACS. Automated exposure control was used as a dose optimization technique forthis examination. COMPARISON: 01/04/2019 FINDINGS: The sensitivity for detection of visceral lesions is diminished without the use of intravenous contrast. LOWER CHEST: Increased mild bibasilar ground-glass and reticulation.This likely represents a combination of atelectasis and scarring. LIVER: The liver is unchanged in appearance with undulating surface.This likely reflects chronic underlying liver disease. No definite liverlesion is seen on this unenhanced CT examination. GALLBLADDER: Partially distended. No CT evidence of acutecholecystitis. BILE DUCTS: No intrahepatic or extrahepatic ductal dilatation. SPLEEN: Normal size. No focal lesions. PANCREAS: The pancreas is normal in size. No significant peripancreatic stranding or main ductal dilatation. ADRENALS: Normal. KIDNEYS/URINARY TRACT: The kidneys are normal in size. Moderate perinephric stranding, likely scarring. No hydronephrosis. Bilateral nonobstructing stones. The largest on the right measures 5 mm. Thelargest on the left measures proximally 5 mm. Prominence of the interpolar left kidney is grossly unchanged compared to 2019. A dominant 6.6 cm leftrenal cyst is noted which does not require specific follow-up. The urinarybladder is partially distended. Mild thickening and stranding of the urinarybladder. GI: Stool throughout the colon which appears nondilated. A tiny hiatal hernia is seen. The small bowel appears nondilated without wallthickening or evidence of obstruction. A chronic small umbilical hernia is seencontaining a nondilated loop of small bowel measuring approximately 2.4 by 1.7 cm(92). PERITONEUM: No free air or ascites is seen. Prominent periportal lymph nodes are unchanged. RETROPERITONEUM: Subcentimeter retroperitoneal lymph nodes, nonenlargedby size criteria. These are grossly unchanged. No inguinal lymphadenopathyis seen. REPRODUCTIVE: Prominent prostate with mass effect on the posteriorbladder wall. Small fat containing left inguinal hernia. VASCULATURE: Extensive atherosclerosis within a nondilated aorta. MUSCULOSKELETAL: Bone windows demonstrate moderate lower lumbardegenerative disc disease. OTHER: No other abnormality. IMPRESSION: 1. Mild bladder wall thickening and stranding. This may be due to under distension or cystitis. Recommend correlation with urinalysis, urinecytology and PSA. 2. Multiple bilateral nonobstructing renal calculi. REFERENCE: Unless otherwise specified, no follow-up imaging is recommendedfor incidental renal and adrenal lesions per consensus recommendations basedon imaging criteria. Further lab evaluation could be pursued based onclinical findings. Management of the Incidental Renal Mass on CT: A White Paper of the ACR Incidental Findings Committee. J Am Walter Radiol. 2018 Nov;15(2):264-273. Management of Incidental Adrenal Masses: A White Paper of the ACRIncidental Findings Committee. J Am Walter Radiol. 2017 May;14(8):4156-3370. THIS IS AN ELECTRONICALLY VERIFIED FINAL REPORT 09/15/2022 10:11 AM - Electronically signed by Ko Haro M.D. AG: JAMES Report ID: [id number] Reading Location: [place] [address] Elvin Carrillo NP IM CT PROCEDURES Final Result from Last 3 Months or Most Recently Relevant to Health Maintenance Insurance MEDICARE [facility] MEDICARE [facility] MEDICARE [facility] MEDICARE SUPPLEMENT Advance Directives For more information, please contact: [phone] Documents on File Type Date Recorded Patient Staffing Manager Expl anation ADVANCE DIRECTIVE 07/04/2017 Advance Di rective Checklist * Full Code (Latest Code Status on File) Date Activated Date Inactivated Comments 07/13/2021 3:49 PM 07/14/2021 2:07 PM Care Teams Smoking Pipe Coater Relationship Specialty Start Date End Date Say Low MD [address] [place] [address] PCP - General 02/15/17
--- OUTSIDE RECORDS SUMMARY | 2024-09-22 19:02 | XMS_ITS | Encounter Summary ---
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) Procedures Transthoracic Echo (TTE) Complete W Doppler/CF Jeremías Anne MD [address] [place] [address] Phone: tel: fax: [facility] [address] [place] [address] Referral ID Status Reason Start Date Expiration Date Visits Re quested Visits Authorized [id number] Closed 04/11/2024 05/11/2025 1 1 Reason for Visit * Cardiology (Routine) - Closed Specialty Diagnoses / Procedures Referred By Contsara t Referred To Contact Diagnoses 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) Procedures Transthoracic Echo (TTE) Complete W Doppler/CF Jeremías Anne MD [address] [place] [address] Phone: tel: fax: [facility] [address] [place] [address] Referral ID Status Reason Start Date Expiration Date Visits Re quested Visits Authorized [id number] Closed 04/11/2024 05/11/2025 1 1 Encounter Details Date Type Department Care Team (Latest Contact Info) Description 06/12/2024 8:40 AM CDT - 06/12/2024 11:59 PM CDT Hospital Encounter [facility] OP Cardiac Testing [address] [facility] [address] [place] [address] 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 Never 07/13/2021 Average Number of Drinks Not on file 021 Frequency of Binge Drinking Not on file 07/03 Sex and Gender Information Value Date Recorded Sex Assigned at Not on file Legal Sex Male 8:04 PM [employer] Gender Identity Male 07/10/2021 8:31 AM CDT Sexual Orientation Straight 06/12/2021 8: 44 AM CDT documented as of this encounter Medications at Time of Discharge allopurinoL (ZYLOPRIM) 300 mg tablet Take 0.5 tablets (150 mg total) by mouth daily 150 mg daily 12/15/2019 ascorbic acid (vitamin C) 1,000 mg tablet Take 1 tablet (1,000 mg total) by mouth 2 (two) times a day aspirin 81 mg enteric coated tablet Take 1 tablet (81 mg total) by mouth daily atorvastatin (LIPITOR) 10 mg tablet Take 0.5 tablets (5 mg total) by mouth daily 45 tablet 2 05/15/2024 carvediloL (COREG) 12.5 mg tablet Take 1 tablet (12.5 mg total) by mouth 2 (two) times a day with meals cholecalciferol (VITAMIN D-3) 2,000 unit tablet Take 1 tablet (2,000 Units total) by mouth 2 (two) times a day folic acid (FOLVITE) 1 mg tablet Take 1 tablet (1 mg total) by mouth daily furosemide (LASIX) 40 mg tablet Take 1 tablet (40 mg total) by mouth every other day omeprazole (PriLOSEC) 40 mg capsule Take 1 capsule (40 mg total) by mouth daily potassium citrate ER (UROCIT-K) 10 mEq (1,080 mg) CR tabletIndications: Nephrolithiasis Take 1 tablet (10 mEq total) by mouth daily 90 tablet 4 03/03/2021 quercetin 500 mg capsule Take by mouth 2 (two) times a day spironolactone (ALDACTONE) 25 mg tablet Take 0.5 tablets (12.5 mg total) by mouth daily 03/22/2024 5 SYNJARDY XR 5-1,000 mg tablet, IR & ER, biphasic 24hr Take 1,000 mg by mouth every morning 0 03/28/2018 tamsulosin (FLOMAX) 0.4 mg capsule,extended release 24hr take 1 capsule by oral route every day 1/2 hour following the same meal each day 0 0 09/10/2015 vitamin b complex tablet Take 1 tablet by mouth daily empagliflozin (JARDIANCE) 10 mg tabletIndications: Chronic Kidney Disease,Heart Failure Take 1 tablet (10 mg total) by mouth daily 30 tablet 11 03/30/2024 4 losartan (COZAAR) 100 mg tablet take 1 tablet by oral route every day 30 0 11/17/2015 4 rivaroxaban (Xarelto) 20 mg tabletIndications: Paroxysmal atrial fibrillation (CMS/HCC) (HCC) TAKE 1 TABLET(20 MG) BY MOUTH DAILY 90 tablet 3 07/01/2023 4 documented as of this encounter Discharge Disposition Disposition Code Departure Means Destination Discharge to home or self care documented in this encounter Plan of Treatment Not on file documented as of this encounter Procedures Procedure Name Priority Date/Time Associated Diagnosis Comments TRANSTHORACIC ECHO (TTE) COMPLETE W DOPPLER/CF W CONTRAST Routine 06/12/2024 9:44 AM CDT 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) documented in this encounter Results * TRANSTHORACIC ECHO (TTE) COMPLETE W DOPPLER/CF W CONTRAST (06/12/2024 9:44 AM CDT) Anatomical Region Laterality Modality Ultrasound 06/12/2024 8:43 AM CDT Narrative 06/12/2024 5:55 PM CDT [facility] Cardiac Testing [place] [id number] [place] [address] ECHOCARDIOGRAM Patient Name: DREW NEWMAN GENE : 1940 Study Date: 06/12/2024 8:43:42 AM Gender: M Tech: BC Ref Provider: JEREMÍAS ANNE Height(Cm): 173 BSA: 2.19 Weight(Kg): 99.8 ?BP: 126/68 Order Provider: JEREMÍAS ANNE PROCEDURES: Echocardiographic Report: Transthoracic Echocardiogram with 2D, M-Mode, Spectral and Color Flow Doppler examination and administration of intravenous contrast. INDICATIONS: I50.41 Acute combined systolic (congestive) and diastolic (congestive) heart failure. Measurements: 2D/M Mode ?Doppler Measurement ?Value ?Normal Range ? Measurement ? Value ?Normal Range IVSd 2D ?1.27 ? [ 0.60 - 1.00 ] cm ? AV Peak Rommel ? 2.0 ?[ 1.0 - 1.7 ] m/s LVIDd 2D ? 5.55 ? [ 4.20 - 5.80 ] cm ? AV Peak PG ?16 ? mmHg LVIDs 2D ? 4.13 ? [ 2.50 - 4.00 ] cm ? AV Mean PG ?9 ?mmHg LVPWd 2D ? 1.31 ? [ 0.60 - 1.00 ] cm ? AV VTI ?41.7 ? cm EF Biplane ? 53.00 ?[ 52.00 - 72.00 ] % ?YONY V max ? 1.5 ?cm2 LA Dimen 2D ?5.10 ? [ 3.00 - 4.00 ] cm ? YONY VTI ? 1.3 ?cm2 AR Diam 2D ? 3.60 ? cm ? LVOT Peak Rommel ? 0.89 ? [ 0.70 - 1.10 ] m/s LA Volume Index ?56.16 ?[ 16.00 - 34.00 ] ml/m2 ?LVOT Diam ? 2.1 ?cm TAPSE ?1.60 ? [ >= 1.71 ] cm ? LVOT Peak PG ?3 ?mmHg LVOT VTI ? 16.5 ? cm MV Peak PG ? 4 ?mmHg MV Mean PG ? 2 ?mmHg MV E Peak Rommel ?0.9 ?[ 0.6 - 1.3 ] m/s MV A Peak Rommel ?0.6 ?[ 1.0 - 1.2 ] m/s MV PHT ? 101.9 ?[ 20.0 - 100.0 ] ms MV Decel Time ?132.1 ?[ 104.0 - 258.0 ] ms MVA PHT ?2.2 ?ms MV E/A Ratio ? 1.5 TR Peak Rommel ?3.2 ?[ 1.0 - 2.8 ] m/s TR Peak PG ? 40 ? mmHg RVSP ? 55.2 ? [ 10.0 - 36.0 ] mmHg RA Pressure ?15.0 ? mmHg PV Peak Rommel ?0.7 ?[ 0.4 - 0.8 ] m/s PV Peak PG ? 2 ?mmHg Lat E` Rommel ? 0.09 ? [ 0.10 - 0.15 ] m/s Sept E' Rommel ?0.03 ? [ 0.08 - 0.15 ] m/s E/E` ? 10.00 RV S' ?0.10 ? m/s Measurement ?Value ?Normal Range ? Measurement ? Value ?Normal Range 2D/M Mode ?Doppler - FINDINGS: Study Quality: Technically difficult study. Contrast was employed for LV opacification and endocardial border enhancement. BP: Blood pressure: 126/68 mmHg. Left Ventricle: Mild left ventricular systolic dysfunction. There is global hypokinesis. Ejection Fraction is estimated at 45 %. Mild enlargement of left ventricle. LVIDD 6.1 cm. Paradoxical septal motion consistent with RV pacemaker. Mild concentric left ventricular hypertrophy. Right Ventricle: Normal right ventricular systolic function. Normal right ventricular size. Device wire(s) noted in RA/RV. Left Atrium: There is mild enlargement of the left atrium. Right Atrium: There is mild enlargement of the right atrium. Atrial Septum: Normal appearing atrial septum. Mitral Valve: Normal appearance of the mitral valve leaflets. Trace mitral valve regurgitation. Mild mitral annular calcification. Aortic Valve: Probable tricuspid aortic valve, although not all cusps are well visualized. Aortic cusps appear moderately calcified. Mild aortic stenosis. Moderate aortic valve regurgitation. Tricuspid Valve: Grossly normal appearing tricuspid valve. Trace tricuspid regurgitation. There is at least mild pulmonary hypertension. Pulmonic Valve: Grossly normal appearing pulmonic valve. There is no pulmonic stenosis. Trace pulmonic regurgitation. Pericardium: No significant pericardial effusion. Aortic Root and Aorta: Normal caliber aortic root. Aortic Arch: The aortic arch is poorly visualized. IVC: Dilated inferior vena cava with poor inspiratory collapse consistent with elevated right atrial pressure. CONCLUSIONS: 1. Mild left ventricular systolic dysfunction. There is global hypokinesis. Ejection Fraction is estimated at 45 %. Mild enlargement of left ventricle. LVIDD 6.1 cm. Paradoxical septal motion consistent with RV pacemaker. Mild concentric left ventricular hypertrophy. 2. Normal right ventricular systolic function. Normal right ventricular size. Device wire(s) noted in RA/RV. 3. There is mild enlargement of the left atrium. 4. There is mild enlargement of the right atrium. 5. Normal appearance of the mitral valve leaflets. Trace mitral valve regurgitation. Mild mitral annular calcification. 6. Probable tricuspid aortic valve, although not all cusps are well visualized. Aortic cusps appear moderately calcified. Mild aortic stenosis. Moderate aortic valve regurgitation. 7. Grossly normal appearing tricuspid valve. Trace tricuspid regurgitation. There is at least mild pulmonary hypertension. 8. Grossly normal appearing pulmonic valve. There is no pulmonic stenosis. Trace pulmonic regurgitation. 9. Dilated inferior vena cava with poor inspiratory collapse consistent with elevated right atrial pressure. Electronically Signed By: Jeremías Anne MD [facility] 2024-06-12 17:55:29 CDT Procedure Note Jeremías Anne MD - 06/12/2024 [facility] [address] [place] [address] ECHOCARDIOGRAM Patient Name: DREW NEWMAN GENE : 1940 Study Date: 06/12/2024 8:43:42 AM Gender: M Tech: BC Ref Provider: JEERMÍAS ANNE Height(Cm): 173 BSA: 2.19 Weight(Kg): 99.8 BP: 126/68 Order Provider: JEREMÍAS ANNE PROCEDURES: Echocardiographic Report: Transthoracic Echocardiogram with 2D, M-Mode, Spectral and Color FlowDoppler examination and administration of intravenous contrast. INDICATIONS: I50.41 Acute combined systolic (congestive) and diastolic (congestive)heart failure. Measurements: 2D/M ModeDoppler Measurement Value Normal Range MeasurementValue Normal Range IVSd 2D 1.27 [ 0.60 - 1.00 ] cm AV Peak Vel2.0 [ 1.0 - 1.7 ] m/s LVIDd 2D 5.55 [ 4.20 - 5.80 ] cm AV Peak PG16 mmHg LVIDs 2D 4.13 [ 2.50 - 4.00 ] cm AV Mean PG9 mmHg LVPWd 2D 1.31 [ 0.60 - 1.00 ] cm AV VTI41.7 cm EF Biplane 53.00 [ 52.00 - 72.00 ] % YONY V max1.5 cm2 LA Dimen 2D 5.10 [ 3.00 - 4.00 ] cm YONY VTI1.3 cm2 AR Diam 2D 3.60 cm LVOT PeakVel 0.89 [ 0.70 - 1.10 ] m/s LA Volume Index 56.16 [ 16.00 - 34.00 ] ml/m2 LVOT Diam2.1 cm TAPSE 1.60 [ >= 1.71 ] cm LVOT PeakPG 3 mmHg LVOT VTI 16.5 cm MV Peak PG 4 mmHg MV Mean PG 2 mmHg MV E Peak Rommel 0.9 [ 0.6 - 1.3 ] m/s MV A Peak Rommel 0.6 [ 1.0 - 1.2 ] m/s MV PHT 101.9 [ 20.0 - 100.0 ] ms MV Decel Time 132.1 [ 104.0 - 258.0 ] ms MVA PHT 2.2 ms MV E/A Ratio 1.5 TR Peak Rommel 3.2 [ 1.0 - 2.8 ] m/s TR Peak PG 40 mmHg RVSP 55.2 [ 10.0 - 36.0 ] mmHg RA Pressure 15.0 mmHg PV Peak Rommel 0.7 [ 0.4 - 0.8 ] m/s PV Peak PG 2 mmHg Lat E` Rommel 0.09 [ 0.10 - 0.15 ] m/s Sept E' Rommel 0.03 [ 0.08 - 0.15 ] m/s E/E` 10.00 RV S' 0.10 m/s Measurement Value Normal Range MeasurementValue Normal Range 2D/M ModeDoppler - FINDINGS: Study Quality: Technically difficult study. Contrast was employed for LV opacificationand endocardial border enhancement. BP: Blood pressure: 126/68 mmHg. Left Ventricle: Mild left ventricular systolic dysfunction. There is global hypokinesis.Ejection Fraction is estimated at 45 %. Mild enlargement of left ventricle. LVIDD6.1 cm. Paradoxical septal motion consistent with RV pacemaker. Mild concentricleft ventricular hypertrophy. Right Ventricle: Normal right ventricular systolic function. Normal right ventricular size.Device wire(s) noted in RA/RV. Left Atrium: There is mild enlargement of the left atrium. Right Atrium: There is mild enlargement of the right atrium. Atrial Septum: Normal appearing atrial septum. Mitral Valve: Normal appearance of the mitral valve leaflets. Trace mitral valveregurgitation. Mild mitral annular calcification. Aortic Valve: Probable tricuspid aortic valve, although not all cusps are wellvisualized. Aortic cusps appear moderately calcified. Mild aortic stenosis. Moderate aortic valveregurgitation. Tricuspid Valve: Grossly normal appearing tricuspid valve. Trace tricuspid regurgitation.There is at least mild pulmonary hypertension. Pulmonic Valve: Grossly normal appearing pulmonic valve. There is no pulmonic stenosis.Trace pulmonic regurgitation. Pericardium: No significant pericardial effusion. Aortic Root and Aorta: Normal caliber aortic root. Aortic Arch: The aortic arch is poorly visualized. IVC: Dilated inferior vena cava with poor inspiratory collapse consistent withelevated right atrial pressure. CONCLUSIONS: 1. Mild left ventricular systolic dysfunction. There is globalhypokinesis. Ejection Fraction is estimated at 45 %. Mild enlargement of left ventricle. LVIDD6.1 cm. Paradoxical septal motion consistent with RV pacemaker. Mild concentricleft ventricular hypertrophy. 2. Normal right ventricular systolic function. Normal right ventricularsize. Device wire(s) noted in RA/RV. 3. There is mild enlargement of the left atrium. 4. There is mild enlargement of the right atrium. 5. Normal appearance of the mitral valve leaflets. Trace mitral valveregurgitation. Mild mitral annular calcification. 6. Probable tricuspid aortic valve, although not all cusps are wellvisualized. Aortic cusps appear moderately calcified. Mild aortic stenosis. Moderate aorticvalve regurgitation. 7. Grossly normal appearing tricuspid valve. Trace tricuspidregurgitation. There is at least mild pulmonary hypertension. 8. Grossly normal appearing pulmonic valve. There is no pulmonic stenosis.Trace pulmonic regurgitation. 9. Dilated inferior vena cava with poor inspiratory collapse consistentwith elevated right atrial pressure. 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 documented in this encounter Administered Medications Inactive Administered Medications - up to 3 most recent administrations Medication Order MAR Action Action Date Dose Rate Site perflutren lipid (DEFINITY) 1.5 mL in sodium chloride 0.9% 10 mL syringe 1-10 mL, intravenous, Once in imaging, contrast, Starting on Tue06/12/24 at 0923, For 1 dose, Intra-Procedure (CV) Contrast Given 06/12/2024 9:44 AM CDT 4 mL documented in this encounter Orders Medications Ordered That Addy ht Not Have Been Administered Count Last Ordered Date First Ordered Date perflutren lipid (DEFINITY) 1.5 mL in sodium chloride 0.9% 10 mL syringe 1 06/12/2024 documented in this encounter Care Teams Revenue Tax Specialist Relationship Specialty Start Date End Date Say Low MD [address] [facility] [place] [id number] PCP - General 02/15/17 documented as of this encounter
--- OUTSIDE RECORDS SUMMARY | 2024-09-22 19:02 | XMS_ITS | Encounter Summary ---
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) Procedures NM MPI SPECT (Rest and/or Stress) Multiple Studies Jeremías Anne MD [address] [facility] [address] [address] Phone: tel: fax: [facility] [address] [place] [address] Referral ID Status Reason Start Date Expiration Date Visits Re quested Visits Authorized [id number] Closed 03/30/2024 04/29/2025 1 1 Reason for Visit * Reason Comments Follow-up Pt has a lot of ques tions Encounter Details Date Type Department Care Team (Late st Contact Info) Description 03/30/2024 8:30 AM CDT Office Visit [facility] Cardiology [address] [facility] [address] [place] [address] Jeremías Anne MD [address] [facility] [address] [place] [address] 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) (Primary Dx); 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; Hx of CABG Social History Tobacco Use Types Packs/Day Years [...] on file 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 Gender Identity Male 07/10/2021 8:31 AM CDT Sexual Orientation Straight 06/12/2021 8: 44 AM CDT documented as of this encounter Last Filed Vital Signs Vital Sign Reading Time Taken Comments Blood Pressure 126/68 03/30/2024 8:36 AM CDT Pulse 70 03/30/2024 8:36 AM CDT Temperature - - Respiratory Rate - - Oxygen Saturation 94% 03/30/2024 8:36 AM CDT Inhaled Oxygen Concentration - - Weight 99.8 kg (220 lb) 03/30/2024 8:36 AM CDT Height 172.7 cm (5' 8 ) 03/30/2024 8:36 AM CDT Body Mass Index 33.45 03/30/2024 8:36 AM CDT documented in this encounter Ordered Prescriptions Prescription Sig Dispense Quantity Refills Last Filled Start Date End Date empagliflozin (JARDIANCE) 10 mg tabletIndications: Chronic Kidney Disease,Heart Failure Take 1 tablet (10 mg total) by mouth daily 30 tablet 11 03/30/2024 06/25/2024 documented in this encounter Progress Notes * Jeremías Anne MD - 03/30/2024 8:30 AM CDT Images from the original note were not included. [facility] Cardiology [address] [place], [place], [address] [address] [facility] [address] [facility] [address], [place] [address] Cardiology Electrophysiology Niko Echevarria, MD Wayne Davis,, MD Arslan Alcala, MD Klever Bolton, MD Patrick Avalos, MD Isaac Byrd, MD Elgin Bowles, MD Elia Jett, MD Ambika Montes De Oca, ASBESTOS REMOVAL SUPERVISOR Gilson Eden, MD Kasie Frye, ASBESTOS REMOVAL SUPERVISOR Troy Shipley, MD Esther Miller, GRAVE DIGGER Jeremías Anne, MD Toshia Medley, GRAVE DIGGER Xiomara Millan, GRAVE DIGGER Elizabet Tyler, GRAVE DIGGER Arslan Walsh, PA Patient Name: Drew Newman Provider: Jeremías Anne MD : 1940 Date of Service: 03/30/2024 Referring: Maranda CHIEF COMPLAINT: Follow-up (Pt has a lot of questions) HISTORY OF PRESENT ILLNESS: 83 y.o. male here for follow up multiple cardiac issues Coronary artery disease with prior CABG, atrial fibrillation, Fluctuating EF, 53%, 35%, recent recovery to 50% which is around his prior baseline Chronic back pain with multiple surgeries over the years Worsening systolic heart failure, has had issues with elevated creatinine and was taken off diuretics set Ha developed significant volume retention and diuretics were increased last office visit Interval History 04/01/24 Requested office visit today due to increased shortness of breath and edema Since last office visit with the titration of Lasix has lost 11 lb in the last 18 days He actually is feeling okay today, no chest pain greatly improved shortness of breath and edema He mainly had questions, as he has been reading a lot about his diagnosis on the Internet Thus we spent almost the entirety of the visit answering questions regarding the pathophysiology ofsystolic dysfunction, indications for medications, need for ischemic evaluation, possible need to upgrade pacemaker in the future and plans for repeat imaging I reviewed this patient's Allergies and Current Medication List and updated as needed in the medical record. I reviewed this patient's Past Medical History, Social History, and Family History and updated as needed in the medical record. MEDICATIONS: Outpatient Encounter Medications as of 03/30/2024 Medication Sig Dispense Refill allopurinoL (ZYLOPRIM) 300 mg tablet Take 0.5 tablets (150 mg total) by mouth daily 150 mg daily ascorbic acid (vitamin C) 1,000 mg tablet Take 1 tablet (1,000 mg total) by mouth 2 (two) times a day aspirin 81 mg enteric coated tablet Take 1 tablet (81 mg total) by mouth daily atorvastatin (LIPITOR) 10 mg tablet Take 0.5 tablets (5 mg total) by mouth daily carvediloL (COREG) 12.5 mg tablet Take 1 [...] mg total) by mouth every other day losartan (COZAAR) 100 mg tablet take 1 tablet by oral route every day (Patient taking differently: Take 1 tablet (100 mg total) by mouth nightly) 30 0 omeprazole (PriLOSEC) 40 mg capsule Take 1 capsule (40 mg total) by mouth daily potassium citrate ER (UROCIT-K) 10 mEq (1,080 mg) CR tablet Take 1 tablet (10 mEq total) by mouth daily 90 tablet 4 quercetin 500 mg capsule Take by mouth 2 (two) times a day rivaroxaban (Xarelto) 20 mg tablet TAKE 1 TABLET(20 MG) BY MOUTH DAILY 90 tablet 3 spironolactone (ALDACTONE) 25 mg tablet Take 0.5 tablets (12.5 mg total) by mouth daily SYNJARDY XR 5-1,000 mg tablet, IR & ER, biphasic 24hr Take 1,000 mg by mouth every morning 0 tamsulosin (FLOMAX) 0.4 mg capsule,extended release 24hr take 1 capsule by oral route every day 1/2hour following the same meal each day (Patient taking differently: Take 1 capsule (0.4 mg total) bymouth every morning) 0 0 vitamin b complex tablet Take 1 tablet by mouth daily empagliflozin (JARDIANCE) 10 mg tablet Take 1 tablet (10 mg total) by mouth daily 30 tablet 11 Facility-Administered Encounter Medications as of 03/30/2024 Medication Dose Route Frequency Provider Last Rate Last Admin sodium chloride 0.9% flush 0.5-20 mL 0.5-20 mL intra-catheter Q8H [facility] Patrick Taylor MD sodium chloride 0.9% flush 0.5-20 mL 0.5-20 mL intra-catheter PRN Patrick Taylor MD CARDIAC HISTORY & PROBLEM SUMMARY REVIEW OF SYSTEMS Pertinent review of systems negative unless otherwise stated in HPI above. PHYSICAL EXAM: BP 126/68 (BP Location: Left arm, Patient Position: Sitting) Pulse 70 Ht 172.7 cm (5' 8 ) Wt99.8 kg (220 lb) SpO2 94% BMI 33.45 kg/m?? General: No apparent distress. Eyes: Sclerae anicteric. Neck: No obvious jugular venous distension seen. Respiratory: No respiratory distress,breathing comfortably no accessory muscle use Musculoskeletal: Grossly normal tone throughout. Neurologic: Grossly nonfocal. No dysarthria. Skin: No rashes seen. Psychiatric: Appropriate affect and interaction. MDM Problems Addressed: ICD-10-CM 1. Acute combined systolic and diastolic heart failure (CMS/HCC) ([facility]) I50.41 empagliflozin (JARDIANCE) 10 mg tablet Basic metabolic panel Pro B-type natriuretic peptide NM MPI SPECT (Rest and/or Stress) Multiple Studies 2. 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 I51.89 3. Hx of CABG Z95.1 NM MPI SPECT (Rest and/or Stress) Multiple Studies Data Reviewed: Reviewed [facility] care everywhere for pertinent interval history. Reviewed interval labs: No results found for: LDLCALC , TRIG , HDL Lab Results Component Value Date SODIUM 139 03/30/2024 POTASSIUM 4.7 03/30/2024 CREATININE 2.29 (H) 03/30/2024 Lab Results Component Value Date HGB 11.1 (L) 07/14/2021 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 (Primary) - at baseline EF around 50%---> worsening shortness of breath EF around 40% today though even with contrast images somewhat suboptimal Long conversation and answering questions with him and his today Plan: - continue Coreg 12.5 b.i.d. - furosemide 40 mg daily he was only taking it every other day - continue spironolactone 12.5 mg daily - Start Jardiance - will get stress test for ischemic eval - repeat labs and potentially adjust diuretics - may benefit from ARMATURE WINDER HELPER REPAIR P placement Pacemaker - device interrogated today, normal functioning - initially 100% AFib but rate controlled - continue Xarelto - 7 months to SOFI - normal functioning dual-chamber device, 99% RV paced --> given worsening EF if not improved and still having decompensation will recommend upgrading to ARMATURE WINDER HELPER REPAIR P at the time of generator exchange Hx of CABG - no signs or symptoms of angina - aggressive secondary prevention 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 Expectant Management - Adjust diuretics for lab work - Stress test - repeat echo in 3-4 months - sitter ARMATURE WINDER HELPER REPAIR P that time This note was dictated in part using [employer] voice recognition software. Despite careful review of this note, variances in spelling and vocabulary are possible and unintentional. documented in this encounter Plan of Treatment Not on file documented as of this encounter Results * NM MPI SPECT (Rest and/or Stress) Multiple Studies (04/10/2024 12:37 PM CDT) Anatomical Region Laterality Modality Body N/A Nuclear Medicine 04/10/2024 10:3 0 AM CDT Narrative 04/10/2024 4:22 PM CDT [facility] [address] [place] [address] MPI Imaging Report Patient Name: DREW NEWMAN GENE : 1940 Study Date: 04/10/2024 10:30:00 AM Gender: M Tech: Ref Provider: JEREMÍAS ANNE Height(Cm): ??BSA: Weight(Kg): ? Heart Rate: 118 Order Provider: JEREMÍAS ANNE PROCEDURES: Pharmacologic SPECT Report.: Myocardial perfusion imaging with Sestamibi SPECT at rest and post regadenoson (Lexiscan) infusion. INDICATIONS: Congestive Heart Failure, and Coronary Artery Disease. FINDINGS: Procedure Data: One day rest/stress protocol was used with IV site located at right hand. Lexiscan Protocol. Sestamibi injected IV at rest was 8.3 millicuries. Rest SPECT imaging was performed 30 minutes post injection. Lexiscan 0.4mg given IV over 10 seconds. Sestamibi injected IV post Lexiscan was 25.3 millicuries. Stress SPECT Gated imaging was performed 45 minutes post Lexiscan injection. TID: 0.96. Resting HR 70 bpm. Peak HR: 75 bpm. Predicted Maximal HR 139 bpm. Percent Max Predicted HR Achieved: 54.0 %. Baseline BP: 152/91 mmHg. Peak BP: 136/82 mmHg. Performed By: VENTURA Hi. Supervising Physician: The Supervising Physician is Elia Jett MD. Reason for Termination: Lexiscan protocol complete. Resting ECG: Ventricular Paced. Post Pharm ECG: Non diagnostic due to baseline pacing. Arrhythmia: No arrhythmias seen. Cardiac Symptoms With Stress: Symptoms with stress were Dyspnea. Symptoms were resolved with rest and caffeine. BP Response: Blood pressure at baseline is mildly hypertensive. Blood pressure response is normotensive. Perfusion: Abnormal perfusion imaging - see below. There is a moderate size perfusion defect in the anterior wall, mostly reversible. Consistent with LAD ischemia. LV Function: Left ventricular ejection fraction is 39 %. CONCLUSIONS: 1. Abnormal perfusion imaging - see below. 2. There is a moderate size perfusion defect in the anterior wall, mostly reversible. Consistent with LAD ischemia. 3. Left ventricular ejection fraction is 39 %. Electronically Signed By: Jeremías Anne MD [facility] 2024-04-10 16:22:09 CDT Procedure Note Jeremías Anne MD - 04/10/2024 [facility] Testing [facility] [address] [place] [id number] MPI Imaging Report Patient Name: DREW NEWMAN GENE : 1940 Study Date: 04/10/2024 10:30:00 AM Gender: M Tech: dh Ref Provider: JEREMÍAS ANNE Height(Cm): BSA: Weight(Kg): Heart Rate: 118 Order Provider: JEREMÍAS ANNE PROCEDURES: Pharmacologic SPECT Report.: Myocardial perfusion imaging with Sestamibi SPECT at rest and postregadenoson (Lexiscan) infusion. INDICATIONS: Congestive Heart Failure, and Coronary Artery Disease. FINDINGS: Procedure Data: One day rest/stress protocol was used with IV site located at right hand.Lexiscan Protocol. Sestamibi injected IV at rest was 8.3 millicuries. Rest SPECTimaging was performed 30 minutes post injection. Lexiscan 0.4mg given IV over 10seconds. Sestamibi injected IV post Lexiscan was 25.3 millicuries. Stress SPECT Gated imagingwas performed 45 minutes post Lexiscan injection. TID: 0.96. Resting HR 70 bpm. Peak HR:75 bpm. Predicted Maximal HR 139 bpm. Percent Max Predicted HR Achieved: 54.0 %.Baseline BP: 152/91 mmHg. Peak BP: 136/82 mmHg. Performed By: VENTURA Hi. Supervising Physician: The Supervising Physician is Elia Jett MD. Reason for Termination: Lexiscan protocol complete. Resting ECG: Ventricular Paced. Post Pharm ECG: Non diagnostic due to baseline pacing. Arrhythmia: No arrhythmias seen. Cardiac Symptoms With Stress: Symptoms with stress were Dyspnea. Symptoms were resolved with rest andcaffeine. BP Response: Blood pressure at baseline is mildly hypertensive. Blood pressure responseis normotensive. Perfusion: Abnormal perfusion imaging - see below. There is a moderate size perfusiondefect in the anterior wall, mostly reversible. Consistent with LAD ischemia. LV Function: Left ventricular ejection fraction is 39 %. CONCLUSIONS: 1. Abnormal perfusion imaging - see below. 2. There is a moderate size perfusion defect in the anterior wall, mostlyreversible. Consistent with LAD ischemia. 3. Left ventricular ejection fraction is 39 %. Electronically Signed By: Jeremías Anne MD [facility] 2024-04-10 16:22:09 CDT us Jeremías Anne MD IMG NM PROCEDURES Final Result * (ABNORMAL) Pro B-type natriuretic peptide (03/30/2024 11:21 AM CDT) NT-proBNP 1,404(H) <=450 pg/mL Comment: Interpretive Comments: A. Dyspnea in Acute Care Setting All Ages: ?< 300 pg/ml, acute heart failure unlikely. < 50 yrs: ?300 - 450 pg/ml, further investigation warranted. ? > 450 pg/ml, acute heart failure likely. 50 - 74 yrs: ? 300 - 900 pg/ml, further investigation warranted. ? > 900 pg/ml, acute heart failure likely . > or = 75 yrs: ? 450 - 1800 pg/ml, further investigation warranted. ? > 1800 pg/ml, acute heart failure likely. B. Non-acute Setting < 75 yrs ? < 125 pg/ml, rules out heart failure. ? > or = 125 pg/ml, further investigation warranted. > or = 75 yrs ?< 450 pg/ml, rules out heart failure. ? > or = 450 pg/ml, further investigation warranted. - Knowledge of each individual patient's NT-proBNP range may be more useful than using similar cut-points for every patient. Please note that marked elevations in NT-proBNP levels may be observed in state other than Left Ventricular Congestive Failure, including: acute coronary syndromes, right heart strain/failure (including pulmonary embolism and cor pulmonale), critical illness, renal failure, as well as advanced age. - References: 1. Ozzy DODD et.al. Eur Heart J. 2006:27:330-337. 2. Sahra AVILA, Javi MANZANO. J. AM Walter Cardiol: Cardiovasc Imag. 2009;2: 216- 225. Interpretive Data Last Revised Date: 2018. Blood 03/30/2024 11:2 1 AM CDT 03/30/2024 11:21 AM CDT Jeremías Anne MD LAB BLOOD ORDERABLES Fi nal Result Performing Organization Address [facility]/ZIP Co de Phone Number [facility] [address] Department [place] [address] * (ABNORMAL) Basic metabolic panel (03/30/2024 11:21 AM CDT) Pathologist [facility] Sodium 139 135 - 145 mmol/L Potassium, pl 4.7 3.3 - 4.9 mmol/L [facility] Chloride 104 97 - 110 mmol/L [facility] CO2 26 22 - 32 mmol/L [facility] Anion gap 9 2 - 15 mmol/L [facility] BUN 48(H) 6 - 25 mg/dL [facility] Creatinine 2.29(H) 0.80 - 1.30 mg/dL [facility] Glucose 122 70 - 199 mg/dL [facility] Comment: Interpretive Data Fasting glucose >/= [...] classification and Diagnosis of Diabetes Diabetes Care 202; 46: S19-S40. Current interpretive data was last revised 2022. Calcium 9.3 8.5 - 10.3 mg/dL [facility] Blood 03/30/2024 11:2 1 AM CDT 03/30/2024 11:21 AM CDT Jeremías Anne MD LAB BLOOD ORDERABLES Fi nal Result Performing Organization Address [facility]/ZIP Co de Phone Number 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
--- OUTSIDE RECORDS SUMMARY | 2024-09-22 19:02 | XMS_ITS | Encounter Summary ---
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) Procedures NM MPI SPECT (Rest and/or Stress) Multiple Studies Jeremías Anne MD [address] [facility] [address] [place] [address] Phone: tel: fax: [facility] [address] [place] [address] Referral ID Status Reason Start Date Expiration Date Visits Re quested Visits Authorized [id number] Closed 03/30/2024 04/29/2025 1 1 Encounter Details Date Type Department Care Team (Latest Contact Info) Description 04/10/2024 9:48 AM CDT - 04/10/2024 11:59 PM CDT Hospital Encounter [facility] OP Cardiac Testing [address] [place] [address] Discharge Disposition: Discharge to home or self [...] on file 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 Gender Identity Male 07/10/2021 8:31 AM CDT [...] tablet (81 mg total) by mouth daily carvediloL (COREG) [...] tablet Take 1 tablet by mouth daily atorvastatin (LIPITOR) 10 mg tablet Take 0.5 tablets (5 mg total) by mouth daily 02/13/2024 4 empagliflozin (JARDIANCE) 10 mg tabletIndications: Chronic Kidney [...] Procedure Name Priority Date/Time Associated Diagnosis Comments NM MPI SPECT (REST AND/OR STRESS) MULTIPLE STUDIES Schedule Routine, Read Routine (OP Routine) 04/10/2024 12:37 PM CDT Hx of CABG 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 Heart Rate: 118 [...] %. Electronically Signed By: Jeremías Anne MD [facility] 2024-04-10 16:22:09 CDT Procedure Note Jeremías Anne MD - 04/10/2024 [facility] Card[facility] Testing [facility] [address] [place] [id number] MPI Imaging Report Patient Name: DREW NEWMAN GENE : 1940 Study Date: 04/10/2024 10:30:00 AM Gender: M Tech: Ref Provider: JEREMÍAS ANNE Height(Cm): BSA: Weight(Kg): [...] %. Electronically Signed By: Jeremías Anne MD [facility] 2024-04-10 16:22:09 CDT us Jeremías Anne MD IMG NM PROCEDURES Final Result documented in this encounter Visit Diagnoses Not on filedocumented in this encounter Care Teams Web Content Executive Relationship Specialty Start Date End Date Say Low MD [address] [facility] [address] [place] [address] PCP - General 02/15/17 documented as of this encounter
--- OUTSIDE RECORDS SUMMARY | 2024-09-22 19:02 | XMS_ITS | Encounter Summary ---
Author Organization [facility] Healthcare Address [address] [place] [address] Care Team Providers Care Agriculture Specialist Name Role Phone Say Low MD Primary Care Provider [phone] Reason for Visit * Auth/Cert (Routine) Specialty Diagnoses / Procedures Referred By Yary silveira Referred To Contact Diagnoses Pacemaker Pacemaker [Z95.0] Procedures REMOVE/REPLACE PACEMAKER (PPM) MULTI LEAD SYSTEM 06557 INSERT LV LEAD W PACEMAKER (PPM) OR IMPLANTABLE CARDIOVERTER-DEFIBRILLATOR (ICD) PLACEMENT (+) [id number] Referral ID Status Reason Start Date Expiration Date Visits Re quested Visits Authorized [id number] 1 1 Encounter Details Date Type Department Care Team (Latest Contact Info) Description 08/15/2024 2:50 PM VENEER JOINER - 08/15/2024 4:40 PM VENEER JOINER Surgery [facility] Electrophysiology [facility] [address] [place] [id number] Wayne Davis MD [address] [facility] [address], [place] [address] REMOVE/REPLACE PACEMAKER (PPM) MULTI LEAD SYSTEM [id number] Surgery Details Date/Time Status Location OR Service Patient Class Case Class Case Type Trauma Case? 08/15/2024 2:50 PM Posted [facility] EP LAB EP D Cardiovascular Outpatient Elective Panel 1 Procedure LRB Anes Op Region Wound Class Comments REMOVE/REPLACE PACEMAKER (PP M) MULTI LEAD SYSTEM 32866 N/A Choice INSERT LV LEAD W PACEMAKER ( PPM) OR IMPLANTABLE CARDIOVERTER-DEFIBRILLATOR (ICD) PLACEMENT (+) 39680 N/A Choice Surgeon Surgeon Role Service Panel Wayne Davis MD Primary Cardiovascular 1 Case Notes MAGALY/BOSTON SCIUPGRADE TO BIV PPM documented in this encounter Social History Tobacco Use Types Packs/Day Years [...] on file Legal Sex Male 8:04 PM VENEER JOINER Gender Identity Male 07/10/2021 8:31 AM CDT Sexual Orientation Straight 06/12/2021 8: 44 AM CDT documented as of this encounter Last Filed Vital Signs Vital Sign Reading Time Taken Comments Blood Pressure 149/76 08/15/2024 4:17 PM VENEER JOINER Pulse 73 08/15/2024 4:18 PM VENEER JOINER Temperature 37.1 ??C (98.8 ??F) 08/15/2024 1:03 PM CS T Respiratory Rate 22 08/15/2024 4:18 PM VENEER JOINER Oxygen Saturation 99% 08/15/2024 4:18 PM VENEER JOINER Inhaled Oxygen Concentration - - Weight 101.1 kg (222 lb 14.2 oz) 08/15/2024 1:03 PM VENEER JOINER Height 172.7 cm (5' 8 ) 08/15/2024 1:03 PM VENEER JOINER Body Mass Index 33.89 08/15/2024 1:03 PM VENEER JOINER documented in this encounter Discharge Instructions * Discharge Instructions* Greta Zepeda RN - 08/15/2024 4:38 PM VENEER JOINER Cardiac Laboratory [address] [place], [place] [address] CCL Discharge Instructions---Implant MEDICATIONS [] Home Medications Returned [] Discharge Medication Reconciliation Reviewed [] Prescriptions sent home with patient and instructions given for usage [x] ANTIBIOTICS What you Should Know Information provided and reviewed. INCISION CARE DO NOT apply any kind of powder or lotion to your incision [x] Keep your incision site as dry as possible. [x] DO NOT submerge your incision site in any water for 30 days. This includes pools, tub baths, lakes, avery, ponds and hot tubs. [] Your site has a dressing over the incision -You may shower after 1 day. -Keep the dressing clean and dry [] Your incision has steri strips. Do not remove the steri strips. Allow them to fall off on their own. [x] Your physician has used surgical glue on your incision. Allow it ot slough off-do not attempt to remove this adhesive. [] You may shower immediately after your procedure. DIET [x] Resume home diet [] Special diet Instructed by Supervisor Modern Languages ACTIVITY You have been given medications which helped make you comfortable during your procedure. The relaxing effects of these medications may continue for the rest of the day. For your safety: [x] Do not drive or operate hazardous machinery for the next 24 hours [x] Do not make important personal or business decision or sign legal documentation for the next 24hours [x] Resume normal activity in days. [x] Resume driving after 24 hours provided your discomfort level at the operative site allows movement required to drive. DO NOT [x] Raise your affected arm above your head for four weeks after your device is placed. [x] Lift anything heavier than 10 pounds with the affected arm for four weeks after your device is placed. [x] You may sleep with your arm sling around your shoulder as necessary to prevent you from raisingyour arm above your head while sleeping. SPECIAL INSTRUCTIONS Soreness and/or tenderness at the incision site may last about 1 week. You may have some bruising that may last several weeks. Please notify your physician immediately if you develop any of the following: Significant bleeding at the procedure site that does not stop after applying firm pressure directlyon the incision for 10 minutes. [x] Swelling of the incision area [x] Unusual pain at the incision site. [x] Signs of infection which may include: - fever or chills - drainage from the incision - significant redness/warm to the touch at the procedure site - incision does not heal FOLLOW UP CARE [] Call physician's office for appointment [] Appointment scheduled for: with Additional Instructions: I understand and have received a copy of my discharge instructions Patient/Family Signature: Staff Signature/Title: Date and Time: ER JOINER documented in this encounter Medications at Time of Discharge [...] times a day rivaroxaban (Xarelto) 20 mg tabletIndications: Paroxysmal atrial fibrillation (CMS/HCC) (HCC) Take 1 tablet (20 mg total) by mouth daily 90 tablet 3 08/18/2024 spironolactone (ALDACTONE) 25 mg tablet Take 0.5 [...] tablet Take 1 tablet by mouth daily cephalexin (KEFLEX) 500 mg capsule Take 1 capsule (500 mg total) by mouth 4 (four) times a day for 5 days 20 capsule 08/15/2024 4 losartan (COZAAR) 100 mg tablet take 1 tablet by oral route every day 30 0 11/17/2015 4 documented as of this encounter Ordered Prescriptions Prescription Sig Dispense Quantity Refills Last Filled Start Date End Date rivaroxaban (Xarelto) 20 mg tabletIndications: Paroxysmal atrial fibrillation (CMS/HCC) (HCC) Take 1 tablet (20 mg total) by mouth daily 90 tablet 3 08/18/2024 cephalexin (KEFLEX) 500 mg capsule Take 1 capsule (500 mg total) by mouth 4 (four) times a day for 5 days 20 capsule 08/15/2024 4 documented in this encounter Discharge Disposition Disposition Code Departure Means Destination Comment s Discharge to home or self care documented in this encounter H&P Notes * Kasie Frye NP - 08/15/2024 12:40 PM CST Images from the original note were not included. 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 male here for upgrade of his dual-chamber pacemaker to a biventricular pacemaker. Past Medical History Past Medical History: Diagnosis Date Arthritis CHF (congestive heart failure) (CMS/HCC) (HCC) Chronic kidney disease Congestive heart failure (CHF) (CMS/HCC) (HCC) COPD (chronic obstructive pulmonary disease) (HCC) Diabetes mellitus (HCC) HX OTHER MEDICAL leg/ ankle surgery due to fall of a roof (2010) Hyperlipidemia Hypertension Kidney stone Urolithiasis Past Surgical History Past Surgical History: Procedure Laterality Date BACK SURGERY CARDIAC CATHETERIZATION CARDIAC PACEMAKER PLACEMENT Pacemaker Placement - (Added by TW Conv) CORONARY ARTERY BYPASS GRAFT 2003 saphenous vein to the 1st obtuse marginal, 2nd obtuse marginal, and posterior descending branch of the right coronary artery LITHOTRIPSY REPLACEMENT TOTAL KNEE Right 12/2020 TIBIA FRACTURE SURGERY 2010 r/t trauma UPPER GASTROINTESTINAL ENDOSCOPY Medications Scheduled Meds: Home Meds: HOME MEDICATIONS : allopurinoL (ZYLOPRIM) 300 mg tablet ascorbic acid (vitamin C) 1,000 mg tablet aspirin 81 mg enteric coated tablet atorvastatin (LIPITOR) 10 mg tablet carvediloL (COREG) 12.5 mg tablet cholecalciferol (VITAMIN D-3) 2,000 unit tablet folic acid (FOLVITE) 1 mg tablet furosemide (LASIX) 40 mg tablet losartan (COZAAR) 100 mg tablet omeprazole (PriLOSEC) 40 mg capsule potassium citrate ER (UROCIT-K) 10 mEq (1,080 mg) CR tablet quercetin 500 mg capsule spironolactone (ALDACTONE) 25 mg tablet SYNJARDY XR 5-1,000 mg tablet, IR & ER, biphasic 24hr tamsulosin (FLOMAX) 0.4 mg capsule,extended release 24hr vitamin b complex tablet Xarelto 20 mg tablet Continuous Infusions:sodium chloride 0.9%, 50 mL/hr PRN Meds:. ioversoL Allergies No Known Allergies Family History Family History Problem Relation Age of Onset Alzheimer's disease Mother Alzheimer's disease; Stroke Mother Arthritis Mother Diabetes Mother Hypertension Mother Gout Mother Heart attack Other Family history of Myocardial infarction; Cause of : Family history of Myocardial infarction Heart attack Father Cancer Father Heart disease Father Hypertension Father Social History Social History Tobacco Use Smoking status: Former Current packs/day: 0.00 Average packs/day: 3.0 packs/day for 22.6 years (67.7 ttl pk-yrs) Types: Cigarettes Start date: 1960 Quit date: 04/29/1983 Years since quittin.3 Smokeless tobacco: Never Substance and Sexual Activity Drug use: No Sexual activity: Defer Alcohol Use: Not At Risk (07/13/2021) AUDIT-C Frequency of Alcohol Consumption: Never Average Number of Drinks: Not on file Frequency of Binge Drinking: Not on file Review of Systems Review of Systems Constitutional: Negative. Respiratory: Negative. Cardiovascular: Negative. Neurological: Negative. Psychiatric/Behavioral: Negative. Objective BP (!) 174/79 Pulse 70 Temp 37.1 ??C (98.8 ??F) Resp 16 Ht 172.7 cm (5' 8 ) Wt 101.1 kg (222 lb 14.2 oz) SpO2 97% BMI 33.89 kg/m?? Condition: Alert, appears in no acute distress Physical Exam Physical Exam Constitutional: Appearance: Normal appearance. HENT: Head: Normocephalic and atraumatic. Cardiovascular: Rate and Rhythm: Normal rate. Pulmonary: Effort: Pulmonary effort is normal. Musculoskeletal: General: Normal range of motion. Cervical back: Normal range of motion. Skin: General: Skin is warm and dry. Neurological: Mental Status: He is alert and oriented to person, place, and time. Psychiatric: Behavior: Behavior normal. Thought Content: Thought content normal. Judgment: Judgment normal. Diagnostics Recent Labs Lab Units 08/15/24 1248 HEMOGLOBIN g/dL 13.5 HEMATOCRIT % 43.2 WBC K/cumm 8.1 PLATELETS K/cumm 252 Recent Labs Lab Units 08/15/24 1248 SODIUM mmol/L 142 POTASSIUM PLASMA mmol/L 5.4* CHLORIDE mmol/L 108 CO2 mmol/L 19* ANIONGAP mmol/L 15 BUN SERUM mg/dL 35* CREATININE mg/dL 1.68* CALCIUM mg/dL 9.5 Assessment/Plan 84 y.o. male seen for upgrade of his dual-chamber pacemaker to a biventricular pacemaker. PLAN: Proceed with planned upgrade of his dual-chamber pacemaker to a biventricular pacemaker. Care plan discussed with the patient. Kasie Frye NP [facility] Cosigned by Wayne Davis MD at 08/19/2024 12:59 PM VENEER JOINER ER JOINER ER JOINER documented in this encounter Miscellaneous Notes * Op Note - Wayne Davis MD - 08/15/2024 1:45 PM CST Patient Name: Drew Pak Date of : 1940 Primary Physician: Say Low MD Procedure Date: 08/15/2024 Name of procedure: 1. Device Revision: Dual Chamber Pacermaker to Biventricular Pacemaker (POSSUM TRAPPER-P) 2. Placement of LV pacing lead 3. Subclavian venography 4. Pacemaker Pocket Revision History: 1. Moderate NICM 2. Complete heart block, s/p dual chamber pacemaker Methods: After informed consent was obtained, the patient was brought to the EP laboratory in a postabsorptive, nonsedated state. Peripheral IV access was established. Prophylactic antibiotics were administered prior to incision. Continuous ECG, blood pressure, and pulse oximetry were initiated. Cardioversion patch electrodes were placed on the patient's chest and back. A grounding patch was applied to the skin. Sedation was administered by the Anesthesia service. The left chest was prepared and draped in a sterile fashion. Local anesthesia was injected in the subcutaneous tissue in the infraclavicular area. An incision was made into the chronic scar. With cautious attention to the leads, the subcutaneous tissue was dissected the level of the device capsule.The capsule was opened, the device was explanted and disconnected from the leads. The leads were inspected and found to be free of visible defect. The RA and RV leads were tested and found to have adequate pacing and sensing parameters, consistent with pre-procedure measurements. Under fluoroscopic guidance and with the assistance of the images from the venogram, a single venipuncture was made using micropuncture and modified Seldinger technique. This was performed in the extrathoracic portion of the subclavian vein. Guidewires were passed. A peel-away sheaths was placed, and used to advance the new lead into the circulation. Using fluoroscopic guidance, the new LV lead was positioned. The coronary sinus was intubated with a multipurpose-shaped outer CS sheath, AL2 guide catheter, and hydrophilic wire. Selective coronary sinus venography was performed, demonstrating the presence of a suitable lateral LV branch. A quadripolar pacing lead was positioned in this branch over a whisper EDS wire. Adequate sensing and pacingparameters were found, and no diaphragmatic stimulation was seen with high-output pacing. The sheath was split, and the lead was secured to the fascia with Ethibond ties. The pocket was revised to accomodate the size of the new device. The pocket was flushed with antibiotic solution and hemostasis was assured. Yolande XT was applied. The generator was connected to the leads and placed inside the pocket. The wound was closed with 2 running layers of absorbable suture, and topical adhesive was applied to the skin. Following the procedure, the patient was taken to the recovery area in stable condition. A chest x-ray was obtained in the holding area. Lead parameters and device programming: - RA Lead (CHRONIC - #[id number]): Sensing 2.2 mV, Pacing threshold AF, Imp 361 Ohm - RV Lead (CHRONIC - #[id number]): Sensing DEP, Pacing threshold 0.6 V at 0.4 ms Imp 439 Ohm - LV Lead (#[id number]): Pacing threshold 1.6 V at 0.4 ms (LV1-Can), Imp 1013 Ohm - Device: [employer] POSSUM TRAPPER-P (#[id number]), programmed DDDR (VVIR) 70-120 - Explanted Device: [employer] PPM, #[id number] Estimated Blood Loss: Minimal Complications: None Conclusions: 1. Successful device revision: Dual chamber pacemaker to biventricular pacemaker 2. Coronary sinus venography 3. Subclavian venography 4. Addition of LV lead 5. Pocket revision Recommendations: 1. Anticipate same-day discharge 2. Portable chest x-ray in holding area. Repeat CXR in 3 hours. 3. PO antibiotics for five days 4. Remote device interrogation in the morning. 5. Hold AC 3 days 6. Follow-up will be arranged in the Arrhythmia Center 7-10 days post-discharge Wayne Davis MD, MPH, [facility] Clinical Cardiac Scrubbing Machine Operator [facility] ER JOINER documented in this encounter Plan of Treatment Not on file documented as of this encounter Procedures Procedure Name Priority Date/Time Associated Diagnosis Comments XR CHEST PA LATERAL 2 VIEWS ED Urgent/IP Urgent 08/15/2024 6:05 PM VENEER JOINER XR CHEST 1 VIEW ED Urgent/IP Urgent 08/15/2024 4:28 PM VENEER JOINER ECG 12-LEAD Routine 08/15/2024 4:03 PM VENEER JOINER INSERTION OF BIV ELECTRODE Routine 08/15/2024 3:35 PM VENEER JOINER Pacemaker IMPLANTABLE CARDIAC DEVICE Routine 08/15/2024 3:35 PM VENEER JOINER Pacemaker ECG 12-LEAD STAT 08/15/2024 1:06 PM VENEER JOINER POCT GLUCOSE DEVICE Routine 08/15/2024 1 2:57 PM VENEER JOINER EGFR STAT 08/15/2024 12:48 PM VENEER JOINER DIFFERENTIAL AUTO STAT 08/15/2024 12: 48 PM VENEER JOINER CBC WITH AUTO DIFFERENTIAL STAT 08/15/2024 12:48 PM VENEER JOINER BASIC METABOLIC PANEL STAT 08/15/2024 12:48 PM VENEER JOINER documented in this encounter Results * XR Chest PA Lateral 2 View (08/15/2024 6:05 PM VENEER JOINER) Anatomical Region Laterality Modality Body, Chest N/A Computed Radiogr aphy 08/15/2024 6:57 PM VENEER JOINER Impressions 08/15/2024 6:57 PM VENEER JOINER FINDINGS/IMPRESSION: Evaluation of the AP images are significantly limited due to overpenetration. Midline sternotomy wires are noted. Left chest wall cardiac pacer is redemonstrated. ??Mild right greater than left atelectatic changes are seen. ??No definite pleural effusion is noted. ??Evaluation for pneumothorax is limited due to limitation of the study. Electronically signed by: Adali Cat M.D. Narrative 08/15/2024 6:57 PM VENEER JOINER EXAMINATION: XR CHEST PA LATERAL 2 VIEWS [...] study. Electronically signed by: Adali Cat M.D. Wayne Davis MD IMG XR PROCEDURES Final Result * X-ray chest 1 view (08/15/2024 4:28 PM VENEER JOINER) Anatomical Region Laterality Modality Body, Chest N/A Computed Radiogr aphy 08/15/2024 4:53 PM VENEER JOINER Narrative 08/15/2024 4:53 PM VENEER JOINER EXAMINATION: ?? XR CHEST 1 VIEW DATE: [...] leads. Electronically signed by: Edgar Gavin M.D. us Wayne Davis MD IMG XR PROCEDURES Final Result * ECG 12 lead (08/15/2024 4:03 PM VENEER JOINER) 08/15/2024 4:03 PM VENEER JOINER Narrative [facility] - 08/16/2024 3:42 PM VENEER JOINER Vent Rate: 74 bpm RR Interval: 810 msec IL Interval: 0 msec QRS Duration: 206 msec QT Interval: 461 msec QTC Interval: 488 msec P-R-T Finley: 0 - 151 - 52 degrees IMPRESSION: ELECTRONIC VENTRICULAR PACEMAKER ABNORMAL RHYTHM ECG Electronically Signed By: Troy Shipley [facility] Card us Wayne Davis MD ECG ORDERABLES Final R esult [facility] * BIVENTRICULAR PACEMAKER UPGRADE, INSERTION OF BIV ELECTRODE (08/15/2024 3:35 PM VENEER JOINER) Anatomical Region Laterality Modality X-Ray Angiograph y Wayne Davis MD CV ELECTROPHYSIOLOGY IL OCS Final Result * ECG 12 lead (08/15/2024 1:06 PM VENEER JOINER) 08/15/2024 1:06 PM VENEER JOINER Narrative [facility] - 08/15/2024 1:38 PM VENEER JOINER Vent Rate: 70 bpm RR Interval: 855 msec IL Interval: 145 msec QRS Duration: 176 msec QT Interval: 451 msec QTC Interval: 471 msec P-R-T Finley: 255 - 102 - -77 degrees IMPRESSION: ELECTRONIC VENTRICULAR PACEMAKER ABNORMAL RHYTHM ECG Electronically Signed By: Troy Shipley [facility] Card Wayne Davis MD ECG ORDERABLES Final R esult Performing Organization Address [facility] de Phone Number [facility] * POCT glucose (08/15/2024 12:57 PM VENEER JOINER) [facility] Glucose, POC 104 70 - 199 mg/dL Comment: For Glucose values <35 mg/dl when Hematocrit is >60 mg/dl,the test may not accurately detect significant hypoglycemia,and testing in the Laboratory should be considered if clinically indicated. Blood 08/15/2024 12:5 7 PM VENEER JOINER 08/15/2024 12:57 PM VENEER JOINER Wayne Davis MD LAB POCT ORDERABLES - D EVICE Final Result Performing Organization Address City/[facility] Co de Phone Number [facility] [address] Department [place] [address] * (ABNORMAL) eGFR (08/15/2024 12:48 PM VENEER JOINER) [facility] eGFR 40(L) >=60 mL/min/1. 73 m2 Comment: [...] reviewed 2021. Blood 08/15/2024 12:4 8 PM VENEER JOINER 08/15/2024 1:07 PM VENEER JOINER us Wayne Davis MD LAB BLOOD ORDERABLES nal Result [facility] [address] Department [place] [address] * Differential, auto (08/15/2024 12:48 PM VENEER JOINER) Neutrophil abs 5.7 1.5 - 6.5 K/cumm Imm gran abs 0.0 0.0 - 0.1 K/cumm [facility] Lymphocyte abs 1.4 0.8 - 3.3 K/cumm [facility] Monocyte abs 0.7 0.2 - 0.8 K/cumm [facility] Eosinophil abs 0.3 0.0 - 0.5 K/cumm [facility] Basophil abs 0.0 0.0 - 0.1 K/cumm [facility] Neutrophil pct 70.3 % [facility] Comment: Interpretive Data Percent cell count reference ranges are not reported, since discordance with absolute values may lead to misinterpretation of CBC data. Current Interpretive Data was last revised on 2018. Imm gran pct 0.2 % [facility] Comment: Interpretive Data Percent cell count reference ranges are not reported, since discordance with absolute values may lead to misinterpretation of CBC data. Current Interpretive Data was last revised on 2018. Lymphocyte pct 17.6 % [facility] Comment: Interpretive Data Percent cell count reference ranges are not reported, since discordance with absolute values may lead to misinterpretation of CBC data. Current Interpretive Data was last revised on 2018. Monocyte pct 8.3 % [facility] Comment: Interpretive Data Percent cell count reference ranges are not reported, since discordance with absolute values may lead to misinterpretation of CBC data. Current Interpretive Data was last revised on 2018. Eosinophil pct 3.1 % [facility] Comment: Interpretive Data Percent cell count reference ranges are not reported, since discordance with absolute values may lead to misinterpretation of CBC data. Current Interpretive Data was last revised on 2018. Basophil pct 0.5 % [facility] Comment: Interpretive Data Percent cell count reference ranges are not reported, since discordance with absolute values may lead to misinterpretation of CBC data. Current Interpretive Data was last revised on 2018. Blood 08/15/2024 12:4 8 PM VENEER JOINER 08/15/2024 1:07 PM VENEER JOINER Wayne Davis MD LAB BLOOD ORDERABLES Fi nal Result [facility] [address] Department [place] [address] * (ABNORMAL) Basic metabolic panel (08/15/2024 12:48 PM VENEER JOINER) Sodium 142 135 - 145 mmol/L Potassium, pl 5.4(H) 3.3 - 4.9 mmol/L [facility] Chloride 108 97 - 110 mmol/L [facility] CO2 19(L) 22 - 32 mmol/L [facility] Anion gap 15 2 - 15 mmol/L [facility] BUN 35(H) 6 - 25 mg/dL [facility] Creatinine 1.68(H) 0.80 - 1.30 mg/dL [facility] Glucose 111 70 - 199 mg/dL [facility] Comment: Interpretive Data Fasting glucose >/= 126 [...] 2022. Calcium 9.5 8.5 - 10.3 mg/dL [facility] Blood 08/15/2024 12:4 8 PM VENEER JOINER 08/15/2024 1:07 PM VENEER JOINER us Wayne Davis MD LAB BLOOD ORDERABLES Fi nal Result [facility] [address] Department [place] [address] * (ABNORMAL) CBC with auto differential (08/15/2024 12:48 PM VENEER JOINER) WBC 8.1 3.8 - 9.9 K/cumm Hgb 13.5 13.0 - 17.5 g/dL [facility] Hct 43.2 38.9 - 50.3 % [facility] Plt 252 150 - 400 K/cumm [facility] MPV 10.1 9.1 - 12.3 fL [facility] RBC 4.53 4.30 - 5.80 M/cumm [facility] MCV 95.4 81.3 - 96.4 fL [facility] MCH 29.8 27.1 - 33.3 pg [facility] MCHC 31.3(L) 32.3 - 35.7 g/dL [facility] RDW CV 15.9(H) 11.1 - 14.9 % [facility] RDW SD 56.1(H) 35.7 - 48.1 fL [facility] NRBC abs 0.00 0.00 - 0.01 K/cumm [facility] Blood 08/15/2024 12:4 8 PM VENEER JOINER 08/15/2024 1:07 PM VENEER JOINER us Wayne Davis MD LAB BLOOD ORDERABLES Fi nal Result [facility] [address] Department [place] [address] documented in this encounter Visit Diagnoses Diagnosis Pacemaker- Primary Cardiac pacemaker in situ Pacemaker Cardiac pacemaker in situ Paroxysmal atrial fibrillation (CMS/HCC) (HCC) Atrial fibrillation Pacemaker Cardiac pacemaker in situ documented in this encounter Admitting Diagnoses Diagnosis Pacemaker Cardiac pacemaker in situ documented in this encounter Administered Medications Inactive Administered Medications - up to 3 most recent administrations Medication Order MAR Action Action Date Dose Rate Site ceFAZolin 2,000 mg in 0.9 % sodium chloride solution 500 mL (pocket flush) Code/trauma/sedation medication, Starting on Tue08/15/24 at 1523, Intra-Procedure (CV) Given 08/15/2024 3:23 PM VENEER JOINER 2,000 mg Surgical Site ioversoL (OPTIRAY 320) injection Code/trauma/sedation medication, Starting on Tue08/15/24 at 1355, Intra-Procedure (CV) Given 08/15/2024 1:55 PM VENEER JOINER 8 mL ioversoL (OPTIRAY 320) injection Code/trauma/sedation medication, Starting on Tue08/15/24 at 1427, Intra-Procedure (CV) Given 08/15/2024 2:27 PM VENEER JOINER 10 mL Other (Comment) ioversoL (OPTIRAY 320) injection Code/trauma/sedation medication, Starting on Tue08/15/24 at 1500, Intra-Procedure (CV) Given 08/15/2024 3:00 PM VENEER JOINER 10 mL Other (Comment) lidocaine (XYLOCAINE) 20 mg/mL (2 %) injection Code/trauma/sedation medication, Starting on Tue08/15/24 at 1418, Intra-Procedure (CV), Indications: Administration of Local AnesthesiaIndications:Admi nistration of Local Anesthesia Given 08/15/2024 2:18 PM VENEER JOINER 30 mL Left Chest sodium chloride 0.9% infusion 50 mL/hr, intravenous, Continuous, Starting on Tue08/15/24 at 1315, Pre-Procedure (CV) New Bag 08/15/2024 1:48 PM VENEER JOINER documented in this encounter Discontinued Medications Medication Sig Discontinue Reason Start Date End Da te Xarelto 20 mg tabletIndications:Paroxysm al atrial fibrillation (CMS/HCC) (HCC) TAKE 1 TABLET(20 MG) BY MOUTH DAILY 07/23/2024 08/15/2024 documented as of this encounter Active and Recently Administered Medications Times are shown in VENEER JOINER. Scheduled Medication Order 08/13/2024 08/14/2024 08/15/2024 sodium chloride 0.9% flush 0.5-20 mL 0.5-20 mL, intra-catheter, Every 8 hours scheduled, First dose on Tue08/15/24 at 1715, Recovery (CV), Flush volume based on line type and size. , Indications: Flushing 1715 (Due) Continuous Medication Order 08/13/2024 08/14/2024 08/15/2024 sodium chloride 0.9% infusion 50 mL/hr, intravenous, Continuous, Starting on Tue08/15/24 at 1315, Pre-Procedure (CV) 1348 (New Bag - Prov ider: Mirian Riley CRNA)1544 (Anesthesia Volume Adjustment - Provider: Gerard Vera CRNA)2316 (Due: Stopped) PRN Medication Order 08/13/2024 08/14/2024 08/15/2024 acetaminophen (TYLENOL) tablet 650 mg 650 mg, oral, Every 4 hours PRN, 1st line for pain, Starting on Tue08/15/24 at 1558, Recovery (CV), Indications: Pain Carrier Fluids for Secondary Infusion - 0.9% Sodium Chloride 30 mL, intravenous, As needed, For priming tubing and/or flushing, Starting on Tue08/15/24 at 1639, Recovery (CV), 0-250 ml/hr to flush line after IV infusions when no maintenance IV ordered. Infuse 30mL at the same rate as the secondary infusion. Run as primary IV, not intended for KVO. ceFAZolin 2,000 mg in 0.9 % sodium chloride solution 500 mL (pocket flush) (CANCELED) Code/trauma/sedation medication, Starting on Tue08/15/24 at 1523, Intra-Procedure (CV) 1523 (Given - Provid er: Wayne Davis MD) ioversoL (OPTIRAY 320) injection (CANCELED) Code/trauma/sedation medication, Starting on Tue08/15/24 at 1355, Intra-Procedure (CV) 1355 (Given - Provid er: Denise Kaur RN) ioversoL (OPTIRAY 320) injection (CANCELED) Code/trauma/sedation medication, Starting on Tue08/15/24 at 1427, Intra-Procedure (CV) 1427 (Given - Provid er: Wayne Davis MD - Comment: through CS delivery sheath) ioversoL (OPTIRAY 320) injection (CANCELED) Code/trauma/sedation medication, Starting on Tue08/15/24 at 1500, Intra-Procedure (CV) 1500 (Given - Provid er: Wayne Davis MD - Comment: through CS delivery sheath) lidocaine (XYLOCAINE) 20 mg/mL (2 %) injection (CANCELED) Code/trauma/sedation medication, Starting on Tue08/15/24 at 1418, Intra-Procedure (CV), Indications: Administration of Local Anesthesia 1418 (Given - Provid er: Wayne Davis MD) ondansetron (ZOFRAN) injection 4 mg 4 mg, intravenous, Administer over 2 Minutes, Every 8 hours PRN, nausea, vomiting, Starting on Tue08/15/24 at 1558, Recovery (CV), Indications: Nausea and Vomiting oxyCODONE (ROXICODONE) tablet 5 mg 5 mg, oral, Every 4 hours PRN, 2nd line for pain, Starting on Tue08/15/24 at 1558, Recovery (CV), May administer 1 hour after 1st line agent for uncontrolled or increasing pain., Indications: Pain sodium chloride 0.9% flush 0.5-20 mL 0.5-20 mL, intra-catheter, As needed, line care, Starting on Tue08/15/24 at 1639, Recovery (CV), Flush volume based on line type and size. Flush before and after each use. , Indications: Flushing documented in this encounter Orders Medications Ordered That Addy ht Not Have Been Administered Count Last Ordered Date First Ordered Date acetaminophen (TYLENOL) tablet 650 mg 1 Carrier Fluids for Secondary Infusion - 0.9% Sodium Chloride 1 08/15/2024 ondansetron (ZOFRAN) injection 4 mg 1 08/15 oxyCODONE (ROXICODONE) tablet 5 mg 1 2023 sodium chloride 0.9% flush 0.5-20 mL 2 08/03 12/2023 sodium chloride 0.9% infusion 1 08/15/2024 Nursing Count Last Ordered Date First Orde red Date TELEMETRY MONITORING 1 08/15/2024 Discharge Count Last Ordered Date First Orde red Date DISCHARGE PATIENT 1 08/15/2024 CORE MEASURES Count Last Ordered Date First Ord ered Date REASON FOR NO VTE PROPHYLAXIS AT ADMISSION 1 08/15/2024 documented in this encounter Care Teams Agriculture Specialist Relationship Specialty Start Date End Date Say Low MD [address] [facility] [address] [place] [address] PCP - General 02/15/17 documented as of this encounter
--- OUTSIDE RECORDS SUMMARY | 2024-09-22 19:02 | XMS_ITS | Encounter Summary ---
Author Organization [facility] Healthcare Address [address] [place] [address] Care Team Providers Care Compliance Auditor Name Role Phone Say Low MD Primary Care Provider [phone] Reason for Visit * Auth/Cert (Routine) Specialty Diagnoses / Procedures Referred By Yary silveira Referred To Contact Diagnoses Pacemaker Pacemaker [Z95.0] Procedures REMOVE/REPLACE PACEMAKER (PPM) MULTI LEAD SYSTEM 26253 INSERT LV LEAD W PACEMAKER (PPM) OR IMPLANTABLE CARDIOVERTER-DEFIBRILLATOR (ICD) PLACEMENT (+) [id number] Referral ID Status Reason Start Date Expiration Date Visits Re quested Visits Authorized [id number] 1 1 Encounter Details Date Type Department Care Team (Latest Contact Info) Description 08/15/2024 12:30 PM INTERLOCKING PAVEMENT INSTALLER - 08/15/2024 7:16 PM [facility] Hospital Encounter [facility] Electrophysiology Lab [address] [place] [id number] Wayne Davis MD [address] [facility] [address] [place] [address] Pacemaker; Paroxysmal atrial fibrillation (CMS/HCC) (HCC) Discharge [...] on file Legal Sex Male 8:04 PM INTERLOCKING PAVEMENT INSTALLER Gender Identity Male 07/10/2021 8:31 AM CDT Sexual Orientation Straight 06/12/2021 8: 44 AM CDT documented as of this encounter Last Filed Vital Signs Vital Sign Reading Time Taken Comments Blood Pressure 114/58 08/15/2024 5:50 PM INTERLOCKING PAVEMENT INSTALLER Pulse 81 08/15/2024 5:50 PM INTERLOCKING PAVEMENT INSTALLER Temperature 37.1 ??C (98.8 ??F) 08/15/2024 1:03 PM CS T Respiratory Rate 26 08/15/2024 5:50 PM INTERLOCKING PAVEMENT INSTALLER Oxygen Saturation 93% 08/15/2024 5:50 PM INTERLOCKING PAVEMENT INSTALLER Inhaled Oxygen Concentration - - Weight 101.1 kg (222 lb 14.2 oz) 2023 1:03 PM INTERLOCKING PAVEMENT INSTALLER Height 172.7 cm (5' 8 ) 08/15/2024 1:03 PM INTERLOCKING PAVEMENT INSTALLER Body Mass Index 33.89 08/15/2024 1:03 PM INTERLOCKING PAVEMENT INSTALLER documented in this encounter Discharge Instructions * Discharge Instructions* Greta Zepeda RN - 08/15/2024 4:38 PM INTERLOCKING PAVEMENT INSTALLER Cardiac Laboratory [facility] [place], [place] [address] [facility] Discharge Instructions---Implant MEDICATIONS [] Home Medications Returned [...] home diet [] Special diet Instructed by Laborer Adjustable Steel Joist ACTIVITY You have been given medications which [...] Patient/Family Signature: Staff Signature/Title: Date and Time: RLOCKING PAVEMENT INSTALLER documented in this encounter Medications at Time [...] 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 male here [...] discussed with the patient. Kasie Frye NP [facility] Cosigned by Wayne Davis MD at 08/19/2024 12:59 PM INTERLOCKING PAVEMENT INSTALLER RLOCKING PAVEMENT INSTALLER RLOCKING PAVEMENT INSTALLER documented in this encounter Miscellaneous Notes * Op Note - Wayne Davis MD - 08/15/2024 1:45 PM CST Patient Name: Drew Pak Date of : 1940 Primary Physician: Say Low MD Procedure Date: 08/15/2024 Name of procedure: 1. Device Revision: Dual Chamber Pacermaker to Biventricular Pacemaker (SHIPPING HELPER-P) 2. Placement of LV pacing lead 3. [...] device programming: - RA Lead (CHRONIC - #[id number]): Sensing 2.2 mV, Pacing threshold AF, Imp 361 Ohm - RV Lead (CHRONIC - #[id number]): Sensing DEP, Pacing threshold 0.6 V at 0.4 ms Imp 439 Ohm - LV Lead (#[id number]): Pacing threshold 1.6 V at 0.4 ms (LV1-Can), Imp 1013 Ohm - Device: [employer] SHIPPING HELPER-P (#[id number]), programmed DDDR (VVIR) 70-120 - Explanted Device: [employer] PPM, #[id number] Estimated Blood Loss: Minimal Complications: None Conclusions: [...] 7-10 days post-discharge Wayne Davis MD, MPH, [facility] Clinical Cardiac Chief Engineer [facility] Arrhythmia Center RLOCKING PAVEMENT INSTALLER documented in this encounter Plan of Treatment Not on file documented as of this encounter Procedures Procedure Name Priority Date/Time Associated Diagnosis Comments XR CHEST PA LATERAL 2 VIEWS ED Urgent/IP Urgent 08/15/2024 6:05 PM INTERLOCKING PAVEMENT INSTALLER XR CHEST 1 VIEW ED Urgent/IP Urgent 08/15/2024 4:28 PM INTERLOCKING PAVEMENT INSTALLER ECG 12-LEAD Routine 08/15/2024 4:03 PM INTERLOCKING PAVEMENT INSTALLER INSERTION OF BIV ELECTRODE Routine 08/15/2024 3:35 PM INTERLOCKING PAVEMENT INSTALLER Pacemaker IMPLANTABLE CARDIAC DEVICE Routine 08/15/2024 3:35 PM INTERLOCKING PAVEMENT INSTALLER Pacemaker ECG 12-LEAD STAT 08/15/2024 1:06 PM INTERLOCKING PAVEMENT INSTALLER POCT GLUCOSE DEVICE Routine 08/15/2024 1 2:57 PM INTERLOCKING PAVEMENT INSTALLER EGFR STAT 08/15/2024 12:48 PM INTERLOCKING PAVEMENT INSTALLER DIFFERENTIAL AUTO STAT 08/15/2024 12: 48 PM INTERLOCKING PAVEMENT INSTALLER CBC WITH AUTO DIFFERENTIAL STAT 08/15/2024 12:48 PM INTERLOCKING PAVEMENT INSTALLER BASIC METABOLIC PANEL STAT 08/15/2024 12:48 PM INTERLOCKING PAVEMENT INSTALLER documented in this encounter Results * XR Chest PA Lateral 2 View (08/15/2024 6:05 PM INTERLOCKING PAVEMENT INSTALLER) Anatomical Region Laterality Modality Body, Chest N/A Computed Radiogr aphy 08/15/2024 6:57 PM INTERLOCKING PAVEMENT INSTALLER Impressions 08/15/2024 6:57 PM INTERLOCKING PAVEMENT INSTALLER FINDINGS/IMPRESSION: Evaluation of the AP images are significantly limited due to overpenetration. Midline sternotomy wires are noted. Left chest wall cardiac pacer is redemonstrated. ??Mild right greater than left atelectatic changes are seen. ??No definite pleural effusion is noted. ??Evaluation for pneumothorax is limited due to limitation of the study. Electronically signed by: Adali Cat M.D. Narrative 08/15/2024 6:57 PM INTERLOCKING PAVEMENT INSTALLER EXAMINATION: XR CHEST PA LATERAL 2 VIEWS [...] X-ray chest 1 view (08/15/2024 4:28 PM INTERLOCKING PAVEMENT INSTALLER) Anatomical Region Laterality Modality Body, Chest N/A Computed Radiogr aphy 08/15/2024 4:53 PM INTERLOCKING PAVEMENT INSTALLER Narrative 08/15/2024 4:53 PM INTERLOCKING PAVEMENT INSTALLER EXAMINATION: ?? XR CHEST 1 VIEW DATE: [...] by: Edgar Gavin M.D. Wayne Davis MD IMG XR PROCEDURES Final Result * ECG 12 lead (08/15/2024 4:03 PM INTERLOCKING PAVEMENT INSTALLER) 08/15/2024 4:03 PM INTERLOCKING PAVEMENT INSTALLER Narrative [facility] - 08/16/2024 3:42 PM INTERLOCKING PAVEMENT INSTALLER Vent Rate: 74 bpm RR Interval: 810 msec MS Interval: 0 msec QRS Duration: 206 msec QT Interval: 461 msec QTC Interval: 488 msec P-R-T Gordon: 0 - 151 - 52 degrees IMPRESSION: ELECTRONIC VENTRICULAR PACEMAKER ABNORMAL RHYTHM ECG Electronically Signed By: Troy Shipley [facility] Card Wayne Davis MD ECG ORDERABLES Final R esult [facility] * BIVENTRICULAR PACEMAKER UPGRADE, INSERTION OF BIV ELECTRODE (08/15/2024 3:35 PM INTERLOCKING PAVEMENT INSTALLER) Anatomical Region Laterality Modality X-Ray Angiograph y us Wayne Davis MD CV ELECTROPHYSIOLOGY MS OCS Final Result * ECG 12 lead (08/15/2024 1:06 PM INTERLOCKING PAVEMENT INSTALLER) 08/15/2024 1:06 PM INTERLOCKING PAVEMENT INSTALLER Narrative [facility] - 08/15/2024 1:38 PM INTERLOCKING PAVEMENT INSTALLER Vent Rate: 70 bpm RR Interval: 855 msec MS Interval: 145 msec QRS Duration: 176 msec QT Interval: 451 msec QTC Interval: 471 msec P-R-T Gordon: 255 - 102 - -77 degrees IMPRESSION: ELECTRONIC VENTRICULAR PACEMAKER ABNORMAL RHYTHM ECG Electronically Signed By: Troy Shipley [facility] Card us Wayne Davis MD ECG ORDERABLES Final R esult Performing Organization Address City/[facility]/ZIP Co de Phone Number [facility] * POCT glucose (08/15/2024 12:57 PM INTERLOCKING PAVEMENT INSTALLER) [facility] Glucose, POC 104 70 - 199 mg/dL Comment: For Glucose values <35 mg/dl when Hematocrit is >60 mg/dl,the test may not accurately detect significant hypoglycemia,and testing in the Laboratory should be considered if clinically indicated. Blood 08/15/2024 12:5 7 PM INTERLOCKING PAVEMENT INSTALLER 08/15/2024 12:57 PM INTERLOCKING PAVEMENT INSTALLER us Wayne Davis MD LAB POCT ORDERABLES - D EVICE Final Result Performing Organization Address City/[facility] de Phone Number [facility] [address] Department [place] [address] * (ABNORMAL) eGFR (08/15/2024 12:48 PM INTERLOCKING PAVEMENT INSTALLER) [facility] eGFR 40(L) >=60 mL/min/1. 73 m2 [...] reviewed 2021. Blood 08/15/2024 12:4 8 PM INTERLOCKING PAVEMENT INSTALLER 08/15/2024 1:07 PM INTERLOCKING PAVEMENT INSTALLER us Wayne Davis MD LAB BLOOD ORDERABLES Fi nal Result [facility] [address] Department [place] [address] * Differential, auto (08/15/2024 12:48 PM INTERLOCKING PAVEMENT INSTALLER) Neutrophil abs 5.7 1.5 - 6.5 K/cumm Imm gran abs 0.0 0.0 - 0.1 K/cumm [facility] Lymphocyte abs 1.4 0.8 - 3.3 K/cumm [facility] Monocyte abs 0.7 0.2 - 0.8 K/cumm [facility] Eosinophil abs 0.3 0.0 - 0.5 K/cumm [facility] Basophil abs 0.0 0.0 - 0.1 K/cumm [facility] Neutrophil pct 70.3 % [facility] Comment: Interpretive Data Percent cell count reference ranges are not reported, since discordance with absolute values may lead to misinterpretation of CBC data. Current Interpretive Data was last revised on 2018. Imm gran pct 0.2 % [facility] Comment: Interpretive Data Percent cell count reference ranges are not reported, since discordance with absolute values may lead to misinterpretation of CBC data. Current Interpretive Data was last revised on 2018. Lymphocyte pct 17.6 % [facility] Comment: Interpretive Data Percent cell count reference ranges are not reported, since discordance with absolute values may lead to misinterpretation of CBC data. Current Interpretive Data was last revised on 2018. Monocyte pct 8.3 % [facility] Comment: Interpretive Data Percent cell count reference ranges are not reported, since discordance with absolute values may lead to misinterpretation of CBC data. Current Interpretive Data was last revised on 2018. Eosinophil pct 3.1 % [facility] Comment: Interpretive Data Percent cell count reference ranges are not reported, since discordance with absolute values may lead to misinterpretation of CBC data. Current Interpretive Data was last revised on 2018. Basophil pct 0.5 % [facility] Comment: Interpretive Data Percent cell count reference ranges are not reported, since discordance with absolute values may lead to misinterpretation of CBC data. Current Interpretive Data was last revised on 2018. Blood 08/15/2024 12:4 8 PM INTERLOCKING PAVEMENT INSTALLER 08/15/2024 1:07 PM INTERLOCKING PAVEMENT INSTALLER us Wayne Davis MD LAB BLOOD ORDERABLES Fi nal Result [facility] [address] Department [place] [address] * (ABNORMAL) Basic metabolic panel (08/15/2024 12:48 PM INTERLOCKING PAVEMENT INSTALLER) Sodium 142 135 - 145 mmol/L Potassium, pl 5.4(H) 3.3 - 4.9 mmol/L [facility] Chloride 108 97 - 110 mmol/L [facility] CO2 19(L) 22 - 32 mmol/L [facility] Anion gap 15 2 - 15 mmol/L [facility] BUN 35(H) 6 - 25 mg/dL [facility] Creatinine 1.68(H) 0.80 - 1.30 mg/dL [facility] Glucose 111 70 - 199 mg/dL [facility] Comment: Interpretive Data Fasting glucose >/= 126 [...] 2022. Calcium 9.5 8.5 - 10.3 mg/dL [facility] Blood 08/15/2024 12:4 8 PM INTERLOCKING PAVEMENT INSTALLER 08/15/2024 1:07 PM INTERLOCKING PAVEMENT INSTALLER Wayne Davis MD LAB BLOOD ORDERABLES Fi nal Result [facility] [address] Department [place] [address] * (ABNORMAL) CBC with auto differential (08/15/2024 12:48 PM INTERLOCKING PAVEMENT INSTALLER) WBC 8.1 3.8 - 9.9 K/cumm Hgb 13.5 13.0 - 17.5 g/dL [facility] Hct 43.2 38.9 - 50.3 % [facility] Plt 252 150 - 400 K/cumm [facility] MPV 10.1 9.1 - 12.3 fL [facility] RBC 4.53 4.30 - 5.80 M/cumm [facility] MCV 95.4 81.3 - 96.4 fL [facility] MCH 29.8 27.1 - 33.3 pg [facility] MCHC 31.3(L) 32.3 - 35.7 g/dL [facility] RDW CV 15.9(H) 11.1 - 14.9 % [facility] RDW SD 56.1(H) 35.7 - 48.1 fL [facility] NRBC abs 0.00 0.00 - 0.01 K/cumm [facility] Blood 08/15/2024 12:4 8 PM INTERLOCKING PAVEMENT INSTALLER 08/15/2024 1:07 PM INTERLOCKING PAVEMENT INSTALLER Wayne Davis MD LAB BLOOD ORDERABLES Fi nal Result [facility] [address] Department [place] [address] documented in this encounter Visit Diagnoses Diagnosis Pacemaker- Primary Cardiac pacemaker in situ Pacemaker Cardiac pacemaker in situ Paroxysmal atrial fibrillation (CMS/HCC) (HCC) Atrial fibrillation documented in this encounter Admitting Diagnoses Diagnosis Pacemaker Cardiac pacemaker in situ documented in this encounter Administered Medications Inactive Administered Medications - up to 3 most recent administrations Medication Order MAR Action Action Date Dose Rate Site sodium chloride 0.9% infusion 50 mL/hr, intravenous, Continuous, Starting on Tue08/15/24 at 1315, Pre-Procedure (CV) New Bag 08/15/2024 1:48 PM INTERLOCKING PAVEMENT INSTALLER documented in this encounter Discontinued Medications Medication Sig Discontinue Reason Start Date End Da te Xarelto 20 mg tabletIndications:Paroxysm al atrial fibrillation (CMS/HCC) (HCC) TAKE 1 TABLET(20 MG) BY MOUTH DAILY 07/23/2024 08/15/2024 documented as of this encounter Active and Recently Administered Medications Times are shown in INTERLOCKING PAVEMENT INSTALLER. Scheduled Medication Order 08/13/2024 08/14/2024 08/15/2024 sodium [...] Infusion - 0.9% Sodium Chloride 1 08/15/2024 ceFAZolin 2,000 mg in 0.9 % sodium chloride solution 500 mL (pocket flush) 1 08/15/2024 ioversoL (OPTIRAY 320) injection 3 08/15/20 lidocaine (XYLOCAINE) 20 mg/ mL (2 %) injection 1 08/15/2024 ondansetron (ZOFRAN) injection 4 mg 1 08/15 oxyCODONE (ROXICODONE) tablet 5 mg 1 2023 sodium chloride 0.9% flush 0.5-20 mL 2 08/03 sodium chloride 0.9% infusion 1 08/15/2024 Nursing Count Last Ordered Date First Orde red Date TELEMETRY MONITORING 1 08/15/2024 Discharge Count Last Ordered Date First Orde red Date DISCHARGE PATIENT 1 08/15/2024 CORE MEASURES Count Last Ordered Date First Ord ered Date REASON FOR NO VTE PROPHYLAXIS AT ADMISSION 1 08/15/2024 documented in this encounter Care Teams Compliance Auditor Relationship Specialty Start Date End Date Say Low MD [address] INTER[facility] MEDICINE [place] [id number] PCP - General 02/15/17 documented as of this encounter
--- OUTSIDE RECORDS SUMMARY | 2024-09-22 19:02 | XMS_ITS | Encounter Summary ---
Author Organization [facility] Healthcare Address [address] [place] [address] Care Team Providers Care Granite Countertop Installer Name Role Phone Say Low MD Primary Care Provider [phone] Reason for Visit * Reason Onset Date Comments low BPS'? 09/05/2024 Encounter Details Date Type Department Care Team (Late st Contact Info) Description 09/05/2024 Telephone [facility] Medical Group Cardiology [address] [facility] [address] [address] Shiva Anne MD [facility] [facility] [address] [place] [address] low BPS'? Social History Tobacco Use Types Packs/Day Years [...] on file Legal Sex Male 8:04 PM OIL WELL SERVICES SUPERINTENDENT Gender Identity Male 07/10/2021 8:31 AM CDT Sexual Orientation Straight 06/12/2021 8: 44 AM CDT documented as of this encounter Ordered Prescriptions Prescription Sig Dispense Quantity Refills Last Filled Start Date End Date losartan (COZAAR) 50 mg tablet Take 1.5 tablets (75 mg total) by mouth daily 45 tablet 11 09/05/2024 documented in this encounter Miscellaneous Notes * Telephone Encounter - Kimmy Kaiser - 09/05/2024 11:26 AM OIL WELL SERVICES SUPERINTENDENT Was able to reach patient and reviewed recommendations. Verbally understood. Sending in new script to [facility] per request. Will monitor bps and call with update. WELL SERVICES SUPERINTENDENT * Telephone Encounter - Kimmy Kaiser - 09/05/2024 8:52 AM CST Lvm with patient to call office for recommendations. WELL SERVICES SUPERINTENDENT * Telephone Encounter - Shiva Anne MD - 09/05/2024 8:25 AM OIL WELL SERVICES SUPERINTENDENT Systolic, top number, 70s is low , I agree. I would recommend we try decreasing his losartan to 75 mg daily This will require getting him 50 mg tablets and having him take 1-1/2 tablets daily Please send a new script for him WELL SERVICES SUPERINTENDENT * Telephone Encounter - Gisela Boone - 09/05/2024 8:11 AM CST Spoke to pt and pt states that he feels his BP's have been really low. Pt just recently had a pacemaker put in and he has been keeping track of his BP's and HR and his top numbers have been rangingfrom 70-130's and bottom numbers have been 40's-60's. HR has been steady at 60's. Pt denies and sx's of dizziness, lightheadedness, fatigue, nausea, chest pains, SOB, or any other sx. Pt just wants to ensure these numbers are OK and if any meds need to be adjusted at this time. Please inform. WELL SERVICES SUPERINTENDENT documented in this encounter Plan of Treatment Not on file documented as of this encounter Visit Diagnoses Not on filedocumented in this encounter Discontinued Medications Medication Sig Discontinue Reason Start Date End Da te losartan (COZAAR) 100 mg tablet take 1 tablet by oral route every day Other 11/17/2015 09/05/2024 documented as of this encounter Care Teams Granite Countertop Installer Relationship Specialty Start Date End Date Say Low MD [address] [place] [address] PCP - General 02/15/17 documented as of this encounter
--- OUTSIDE RECORDS SUMMARY | 2024-09-22 19:02 | XMS_ITS | Encounter Summary ---
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) Procedures Transthoracic Echo (TTE) Complete W Doppler/CF Jeremías Anne MD [address] [facility] [address], [place] [address] Phone: tel: fax: [address] [place] [address] Referral ID Status Reason Start Date Expiration Date Visits Re quested Visits Authorized [id number] Closed 04/11/2024 05/11/2025 1 1 Encounter Details Date Type Department Care Team (Late st Contact Info) Description 04/11/2024 Telephone [facility] Medical Group Cardiology [address] [facility] [address] [place] [address] Jeremías Anne MD [address] [facility] [address] [place] [address] Social History Tobacco Use Types Packs/Day Years [...] on file 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 Verbally understood. Will schedule echo prior to Jun ov. He will call with any any questions/concerns prior to ov. * Telephone Encounter - Kimmy Kaiser - 04/11/2024 10:11 AM CDT ----- Message from Jeremías Anne MD sent at 04/11/2024 8:39 AM CDT ----- Please reach out to let him know I reviewed the results of his stress test Let him know that there was some abnormalities on the stress test indicating some blood flow issuesto the front side of the heart. Modest in size. This could be contributing to current symptoms. However despite this finding, given his fluctuating kidney function at this time my recommendation is to continue with the current medication course for now and see what improvement we get an symptoms and heart function at his next office visit in June, prior to making any decisions with proceeding with left heart catheterization. Let him know my rationale for this is that the heart catheterization does Hold risk to his kidneys which have been fluctuating significantly as he knows over the last 6 months or so. If things do not improve or if he starts to develop chest pain we can certainly proceed the heart catheterization, but I think it is in his best interest to hold off for now He has an appointment with me in June Can you make sure he has an echocardiogram done that morning, same day if possible documented in this encounter Plan of Treatment Not on file documented as of this encounter Results * TRANSTHORACIC ECHO (TTE) COMPLETE W DOPPLER/CF W CONTRAST (06/12/2024 9:44 AM CDT) Anatomical Region Laterality Modality Ultrasound 06/12/2024 8:43 AM CDT Narrative 06/12/2024 5:55 PM CDT [facility] [place] [address] ECHOCARDIOGRAM Patient Name: DREW NEWMAN GENE : [...] pressure. Electronically Signed By: Jeremías Anne MD [facility] 2024-06-12 17:55:29 CDT Procedure Note Jeremías Anne MD - 06/12/2024 [facility] [place] [address] ECHOCARDIOGRAM Patient Name: DREW NEWMAN GENE : 1940 Study Date: 06/12/2024 8:43:42 AM Gender: M Tech: Ref Provider: JEREMÍAS ANNE Height(Cm): 173 BSA: [...] pressure. 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
--- OUTSIDE RECORDS SUMMARY | 2024-09-22 19:02 | XMS_ITS | Encounter Summary ---
Author Organization [facility] Healthcare Address [address] [place] [address] Care Team Providers Care Research Computing Specialist Name Role Phone Say Low MD Primary Care Provider [phone] Reason for Visit * Cardiology (Routine) - Closed Specialty Diagnoses / Procedures Referred By Yary silveira Referred To Contact Diagnoses AV node dysfunction Procedures DEVICE CHECK - IN OFFICE Wayne Davis MD [address] [address] Phone: tel: fax: [facility] Medical Group Referral ID Status Reason Start Date Expiration Date Visits Re quested Visits Authorized [id number] Closed 08/28/2024 09/27/2025 1 1 Encounter Details Date Type Department Care Team (Latest Contact Info) Description 09/12/2024 11:15 AM MOTORCYCLE TECHNICIAN Ancillary Procedure Arrhythmia Center [address] [facility] [address] [place] [phone] NICM (nonischemic cardiomyopathy) (CMS/HCC) (HCC) (Primary Dx); AV node dysfunction; Pacemaker Social History Tobacco Use Types Packs/Day Years [...] on file 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 Gender Identity Male 07/10/2021 8:31 AM CDT Sexual Orientation Straight 06/12/2021 8: 44 AM CDT documented as of this encounter Plan of Treatment Not on file documented as of this encounter Procedures Procedure Name Priority Date/Time Associated Diagnosis Comments DEVICE CHECK - IN OFFICE Routine 09/12/2024 10:59 AM MOTORCYCLE TECHNICIAN AV node dysfunction documented in this encounter Results * DEVICE CHECK - IN OFFICE (09/12/2024 10:59 AM MOTORCYCLE TECHNICIAN) Anatomical Region Laterality Modality Other Narrative 09/15/2024 3:28 PM MOTORCYCLE TECHNICIAN Table formatting from the original result was not included. BiV PACEMAKER CHECK (IN OFFICE) Patient ID: Drew Pak is a 84 y.o. male. This patient received a [employer] BiV Pacemaker. ??They had a routine [...] 100 % Battery Status: ??11 years to [facility] Episodes last 90 days/Comments: AF [place] 0 %, longest duration 3 minutes and 35 seconds on 08/22. ?? Ventricular rates were controlled. ?? No new ventricular events. NORMAL DEVICE FUNCTION PROGRAMMED MEDICATIONS: Anti-coagulant(s): ??Aspirin 81 mg, Xarelto 20 mg daily Anti-arrhythmic(s): ??Coreg 12.5 mg twice a day PLAN: 1) normal [employer] BiV Pacemaker evaluation 2) [employer] remote transmission scheduled in 3 months. 3) Programming appropriate for device settings ?4) left subclavian incision well healed, remaining Dermabond removed without incident. Gisela Butler RN us Wayne Davis MD CV CARDIAC SERVICES PRO CEDURES Final Result documented in this encounter Visit Diagnoses Diagnosis NICM (nonischemic cardiomyopathy) (CMS/HCC) (HCC)- Primary AV node dysfunction Pacemaker Cardiac pacemaker in situ documented in this encounter Care Teams Research Computing Specialist Relationship Specialty Start Date End Date Say Low MD [address] [place] [address] PCP - General 02/15/17 documented as of this encounter
--- OUTSIDE RECORDS SUMMARY | 2024-09-22 19:02 | XMS_ITS | Encounter Summary ---
Author Organization [facility] Healthcare Address [address] [place] [address] Care Team Providers Care Global Manager Name Role Phone Say Low MD Primary Care Provider [phone] Reason for Referral * Cardiology (Routine) - Authorized Specialty Diagnoses / Procedures Referred By Contac t Referred To Contact Diagnoses NICM (nonischemic cardiomyopathy) (CMS/HCC) (HCC) Procedures DEVICE CHECK - IN OFFICE Wayne Davis MD [address] [place] [address] Phone: tel: fax: [facility] Medical Group Referral ID Status Reason Start Date Expiration Date V isits Requested Visits Authorized [id number] Authorized 09/12/2024 10/12/2025 1 1 EY BOY * Cardiology (Routine) - Authorized Specialty Diagnoses / Procedures Referred By Contac t Referred To Contact Diagnoses NICM (nonischemic cardiomyopathy) (CMS/HCC) (HCC) Procedures DEVICE CHECK - REMOTE Wayne Davis MD [address] [address] Phone: tel: fax: Referral ID Status Reason Start Date Expiration Date V isits Requested Visits Authorized [id number] Authorized 08/29/2024 02/26/2026 1 1 EY BOY * Cardiology (Routine) - Authorized Specialty Diagnoses / Procedures Referred By Contac t Referred To Contact Diagnoses NICM (nonischemic cardiomyopathy) (CMS/HCC) ([facility]) Procedures DEVICE CHECK - REMOTE Wayne Davis MD [address] [place] [address] Phone: tel: fax: Referral ID Status Reason Start Date Expiration Date V isits Requested Visits Authorized [id number] Authorized 08/29/2024 02/26/2026 1 1 EY BOY * Cardiology (Routine) - Authorized Specialty Diagnoses / Procedures Referred By Contac t Referred To Contact Diagnoses NICM (nonischemic cardiomyopathy) (CMS/HCC) ([facility]) Procedures DEVICE CHECK - REMOTE Wayne Davis MD [address] [place] [address] Phone: tel: fax: Referral ID Status Reason Start Date Expiration Date V isits Requested Visits Authorized [id number] Authorized 08/29/2024 02/26/2026 1 1 EY BOY * Cardiology (Routine) - Authorized Specialty Diagnoses / Procedures Referred By Contac t Referred To Contact Diagnoses NICM (nonischemic cardiomyopathy) (CMS/HCC) ([facility]) Procedures DEVICE CHECK - REMOTE Wayne Davis MD [address] [place] [address] Phone: tel: fax: Referral ID Status Reason Start Date Expiration Date V isits Requested Visits Authorized [id number] Authorized 08/29/2024 02/26/2026 1 1 EY BOY * Cardiology (Routine) - Authorized Specialty Diagnoses / Procedures Referred By Contac t Referred To Contact Diagnoses NICM (nonischemic cardiomyopathy) (CMS/HCC) (HCC) Procedures DEVICE CHECK - REMOTE Wayne Davis MD [address] [address] Phone: tel: fax: Referral ID Status Reason Start Date Expiration Date V isits Requested Visits Authorized [id number] Authorized 08/29/2024 02/26/2026 1 1 EY BOY Encounter Details Date Type Department Care Team (Late st Contact Info) Description 08/29/2024 Orders Only Arrhythmia Center [address] [facility] [address] [place] [phone] Wayne Davis MD [address] [address] NICM (nonischemic cardiomyopathy) (CMS/HCC) (HCC) (Primary Dx) Social History Tobacco Use Types [...] on file Legal Sex Male 8:04 PM GALLEY BOY Gender Identity Male 07/10/2021 8:31 AM CDT Sexual Orientation Straight 06/12/2021 8: 44 AM CDT documented as of this encounter Miscellaneous Notes * Addendum Note - Rosa Meek RN - 08/29/2024 12:01 PM CSTAddended by: ROSA MEEK on: 09/12/2024 11:28 AM Modules accepted: Orders EY BOY documented in this encounter Plan of Treatment Scheduled Orders Name Type Priority Associated Diagnoses Orde r Schedule DEVICE CHECK - REMOTE Cardiac Services Routine NICM (nonischemic cardiomyopathy) (CMS/HCC) (HCC) 1 Occurrences starting 08/29/2024 until 02/26/2026 DEVICE CHECK - REMOTE Cardiac Services Routine NICM (nonischemic cardiomyopathy) (CMS/HCC) (HCC) 1 Occurrences starting 08/29/2024 until 02/26/2026 DEVICE CHECK - REMOTE Cardiac Services Routine NICM (nonischemic cardiomyopathy) (CMS/HCC) (HCC) 1 Occurrences starting 08/29/2024 until 02/26/2026 DEVICE CHECK - REMOTE Cardiac Services Routine NICM (nonischemic cardiomyopathy) (CMS/HCC) (HCC) 1 Occurrences starting 08/29/2024 until 02/26/2026 DEVICE CHECK - REMOTE Cardiac Services Routine NICM (nonischemic cardiomyopathy) (CMS/HCC) (HCC) 1 Occurrences starting 08/29/2024 until 02/26/2026 DEVICE CHECK - IN OFFICE Cardiac Services Routine NICM (nonischemic cardiomyopathy) (CMS/HCC) (HCC) Expected: 09/12/2024, Expires: 09/12/2025 documented as of this encounter Visit Diagnoses Diagnosis NICM (nonischemic cardiomyopathy) (CMS/HCC) (HCC)- Primary documented in this encounter Care Teams Global Manager Relationship Specialty Start Date End Date Say Low MD [address] [facility] [address] [place] [address] PCP - General 02/15/17 documented as of this encounter
--- OUTSIDE RECORDS SUMMARY | 2024-09-22 19:02 | XMS_ITS | Encounter Summary ---
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 Let him know based on exam and lab work I think he is starting to get dry again. Thus would definitely have him decrease his water pill at this time. He says he had already self decreased it back down to 40 mg once a day. 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 73 m2 Comment: Interpretive Data [...] interpretive data was last reviewed 2021. Blood 03/30/2024 11:2 1 AM CDT 03/30/2024 11:21 AM CDT us Shiva Anne MD LAB BLOOD ORDERABLES Fi nal Result [facility] [address] Department [place] [address] * (ABNORMAL) Basic metabolic panel (03/30/2024 11:21 AM CDT) Sodium 139 135 - 145 mmol/L Potassium, pl 4.7 3.3 - 4.9 mmol/L [facility] Chloride 104 97 - 110 mmol/L [facility] CO2 26 22 - 32 mmol/L [facility] Anion gap 9 2 - 15 mmol/L [facility] BUN 48(H) 6 - 25 mg/dL [facility] Creatinine 2.29(H) 0.80 - 1.30 mg/dL [facility] Glucose 122 70 - 199 mg/dL [facility] Comment: Interpretive Data Fasting glucose >/= 126 [...] 2022. Calcium 9.3 8.5 - 10.3 mg/dL [facility] Blood 03/30/2024 11:2 1 AM CDT 03/30/2024 11:21 AM CDT us Shiva Anne MD LAB BLOOD ORDERABLES Fi nal Result [facility] [address] Department [place] [address] * (ABNORMAL) Pro B-type natriuretic peptide (03/30/2024 [...] et.al. Eur Heart J. 2006:27:330-337. 2. Sahra RW, Javi AM. J. AM Walter Cardiol: Cardiovasc Imag. 2009;2: 216- 225. Interpretive Data Last Revised Date: 2018. 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
--- OUTSIDE RECORDS SUMMARY | 2024-09-22 19:02 | XMS_ITS | Encounter Summary ---
Author Organization [facility] Healthcare Address [address] [place] [address] Care Team Providers Care Order Entry Administrator Name Role Phone Say Low MD Primary Care Provider [phone] Reason for Visit * Reason Onset Date Comments Test Results 03/22/2024 Encounter Details Date Type Department Care Team (Late st Contact Info) Description 03/22/2024 Telephone [facility] Medical [facility] Cardiology [address] [facility] [address], [place] [address] Shiva Anne MD [facility] [facility] [address] [place] [address] Test Results Social History Tobacco Use Types Packs/Day [...] on file 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 Gender Identity Male 07/10/2021 8:31 AM CDT Sexual Orientation Straight 06/12/2021 8: 44 AM CDT documented as of this encounter Ordered Prescriptions Prescription Sig Dispense Quantity Refills Last Filled Start Date End Date spironolactone (ALDACTONE) 25 mg tablet Take 0.5 tablets (12.5 mg total) by mouth daily 03/22/2024 documented in this encounter Miscellaneous Notes * Telephone Encounter - Cynthia George MA - 03/27/2024 10:51 AM CDT Noted * Addendum Note - Kimmy Kaiser - 03/26/2024 3:48 PM CDTAddended by: KIMMY KAISER on: 03/26/2024 03:48 PM Modules accepted: Orders * Telephone Encounter - Kimmy Kaiser - 03/26/2024 3:47 PM CDT Pt called with recommendations. Verbally understood. MAR updated. Pt preferred early am appt on Tuesday. Scheduled at 8:30am * Telephone Encounter - Shiva Anne MD - 03/26/2024 3:34 PM CDT Should increase the furosemide to 40 mg twice a day Can offer to see CORINNA sometime earlier this week If he would like to wait to see me can see him on Tuesday, would have to be pretty early though on would prefer 8 or 8:30 a.m. if he wants to come on Tuesday and see me * Telephone Encounter - Kimmy Kaiser - 03/26/2024 2:45 PM CDT Spoke to patient and he states he feels horrible. Still has the shortness of breath with doing anything with little exertion. Patient is asking for another ov. * Telephone Encounter - Shiva Anne MD - 03/26/2024 2:38 PM CDT Got it reviewed There has been a slight increase in creatinine in the last 2 months I would still recommend continuing the current medication regimen But he should get the repeat basic metabolic panel sometime in the half april * Telephone Encounter - Kimmy Kaiser - 03/26/2024 2:35 PM CDT BMP received from PCP office from 01/16/24 for comparison/review Scanned to encounter for review * Telephone Encounter - Kimmy Kaiser - 03/26/2024 12:21 PM CDT Called and lvm with PCP office to fax prior BMP labs prior to March 2024 for comparison. * Telephone Encounter - Shiva Anne MD - 03/26/2024 9:35 AM CDT Reviewed lab work, unfortunately does not look like there was a BNP and inappropriate time intervalto compare to. Please reach out to and let him know I would recommend he get another basic metabolic panel done at his lab of choice sometime in mid April to ensure stability electrolytes and kidney function we have something to compare to * Telephone Encounter - Kimmy Kaiser - 03/23/2024 1:36 PM CDT Called PCP office. Closed at noon on Tuesday. Faxed letter requesting prior BMP before march result for comparison to be faxed to our office as ap. * Telephone Encounter - Kimmy Kaiser - 03/22/2024 9:28 AM CDT Received lab results by fax. Scanned CBC/urine to encounter for review. * Telephone Encounter - Tootie Haley - 03/22/2024 8:59 AM CDT Milli w/Monica at Dr Low' office, she will fax over results that they are going to fax over for BW review. Will scan once received. Spk w/pt, notified of results and agreeable to med dose change, med list updated. Patient is questioning whether the evidence of fluid is in reference to his kidneys or his lungs. * Telephone Encounter - Tootie Haley - 03/22/2024 8:51 AM CDT ----- Message from Shiva Anne MD sent at 03/22/2024 8:15 AM CDT ----- Please reach out to let him know I reviewed his blood work Overall not unexpected, some kidney abnormalities and evidence of fluid which was not unexpected given his exam these labs are somewhat difficult to interpret given no recent comparison I would recommend the following for him personally I would like him to decrease his spironolactone from 25 mg to 12.5 mg daily he can cut those tablets in half I would like to see if we can get some recent blood work from his primary care provider we call over or faxed to their office for an updated blood panel sometime hopefully in the last 6 months that Ican compare this most recent blood panel too, please scanned into chart documented in this encounter Plan of Treatment Not on file documented as of this encounter Visit Diagnoses Not on filedocumented in this encounter Discontinued Medications Medication Sig Discontinue Reason Start Date End Da te spironolactone (ALDACTONE) 25 mg tablet Take 1 tablet (25 mg total) by mouth daily 03/12/2024 03/22/2024 documented as of this encounter Care Teams Order Entry Administrator Relationship Specialty Start Date End Date Say Low MD [address] [facility] [address] [place] [id number] PCP - General 02/15/17 documented as of this encounter
--- OUTSIDE RECORDS SUMMARY | 2024-09-22 19:02 | XMS_ITS | Encounter Summary ---
Author Organization [facility] Healthcare Address [address] [place] [address] Care Team Providers Care Hot Iron Worker Name Role Phone Say Low MD Primary Care Provider [phone] Reason for Visit * Cardiology (Routine) - Closed Specialty Diagnoses / Procedures Referred By Yary silveira Referred To Contact Diagnoses Pacemaker Procedures DEVICE CHECK - IN OFFICE Wayne Davis MD [address] [facility] [address] [place] [address] Phone: tel: fax: [facility] Referral ID Status Reason Start Date Expiration Date Visits Re quested Visits Authorized [id number] Closed 05/26/2023 06/24/2024 1 1 Encounter Details Date Type Department Care Team (Latest Contact Info) Description 03/12/2024 11:30 AM CDT Ancillary Procedure Arrhythmia Center [address] [facility] [address] [place] [id number] AV node dysfunction (Primary Dx); Pacemaker Social History Tobacco Use Types Packs/Day [...] on file 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 PM CHECK (IN OFFICE) Patient ID: Drew Pak is a 83 y.o. male This patient received a [employer] scientific Pacemaker. 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 Interrogation of the patient's device demonstrates the following: Presenting EGM: ??AFib V paced @ 70 bpm Underlying rhythm: ??AFib/paced at 50 bpm Original Device Settings Right Atrium Right Ventricle Sensitivity (mV) 0.15 mV 2.5 mV Pacing Outputs 1.5 V @ 0.4 ms 2.0 V @ 0.4 ms Testing Measurements Right Atrium Right Ventricle Sensitivity (mV) 3.8 mV paced mV Impedence (Ohms) 456 ohms 442 ohms Pace Threshold Not done V @ ??ms 0.6 V @ 0.4 ms Pacing % <1 % 99 % Battery Status: ??7 months to SOFI Episodes last 90 days/Comments: AF [place] 100 % There were no ventricular events noted on today's in office device interrogation. NORMAL DEVICE FUNCTION PROGRAMMED MEDICATIONS: Anti-coagulant(s): ??Aspirin 81 mg, Xarelto 20 mg daily Anti-arrhythmic(s): ??Coreg 12.5 mg twice daily PLAN: 1) normal [employer] Pacemaker evaluation 2) [employer] remote transmission scheduled in 3 months. 3) Programming appropriate for device measurements Gisela Butler, RN us Wayne Davis MD [facility] PRO CEDURES Final Result documented in this encounter Visit Diagnoses Diagnosis AV node dysfunction- Primary Pacemaker Cardiac pacemaker in situ documented in this encounter Care Teams Hot Iron Worker Relationship Specialty Start Date End Date Say Low MD [address] [facility] [address] [place] [id number] PCP - General 02/15/17 documented as of this encounter
--- OUTSIDE RECORDS SUMMARY | 2024-09-22 19:02 | XMS_ITS | Encounter Summary ---
Author Organization [facility] Healthcare Address [address] [place] [address] Care Team Providers Care Welding Setter Name Role Phone Say Low MD Primary Care Provider [phone] Reason for Visit * Reason Onset Date Comments Med Management 06/25/2024 Encounter Details Date Type Department Care Team (Late st Contact Info) Description 06/25/2024 Telephone [facility] Medical Group Cardiology [address] [facility] [address] [address] Shiva Anne MD [facility] [facility] [address] [place] [address] Med Management Social History Tobacco Use Types Packs/Day Years [...] on file Legal 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 He did call the the prescriber for Synjardy and they would prefer he stay on this medication since he has been on for years. Discontinuing Jardiance and will continue Synjardy. * Telephone Encounter - Shiva Anne MD - 06/25/2024 9:29 AM CDT I do not give him the synjardy prescription. I was unfamiliar with this medication but did look it up it looks like it is a combination medication which includes Jardiance and metformin combined. I would recommend he reach out to the prescriber of the synjardy, and make sure they are aware that he is taking Jardiance prescription through my clinic. It would be appropriate to either stop the Synjardy and just prescribed Jardiance and metformin separately, or if they would prefer he take this combination medicine is okay if he stops the Jardiance, and only gets this Synjardy prescription from that off. if he choos to stick with the Synjardy combination therapy he will need to get that through his other physicians office. * Telephone Encounter - Kimmy Kaiser - 06/25/2024 9:28 AM CDT Pt calling today to report he spoke to pharmacist and they wanted him to call to report he is taking Jardiance AND Synjardy. Making sure this is ok. documented in this encounter Plan of Treatment Not on file documented as of this encounter Visit Diagnoses Not on filedocumented in this encounter Discontinued Medications Medication Sig Discontinue Reason Start Date End Da te empagliflozin (JARDIANCE) 10 mg tabletIndications:Chroni c Kidney Disease,Heart Failure Take 1 tablet (10 mg total) by mouth daily Other 03/30/2024 06/25/2024 documented as of this encounter Care Teams Welding Setter Relationship Specialty Start Date End Date Say Low MD [address] [facility] [address] [place] [address] PCP - General 02/15/17 documented as of this encounter
--- OUTSIDE RECORDS SUMMARY | 2024-09-22 19:02 | XMS_ITS | Encounter Summary ---
Author Organization [facility] Healthcare Address [address] [place] [address] Care Team Providers Care Stumper Feller Name Role Phone Say Low MD Primary Care Provider [phone] Reason for Visit * Reason Onset Date Comments Scheduling Appointments 06/12/2024 Encounter Details Date Type Department Care Team (Late st Contact Info) Description 06/12/2024 Telephone [facility] Medical Group Cardiology [address] [facility] [address] [address] Shiva Anne MD [facility] [facility] [address] [place] [address] Scheduling Appointments Social History Tobacco Use Types Packs/Day Years [...] file Legal Sex Male 8:04 PM MANAGER CASE Gender Identity Male 07/10/2021 8:31 AM CDT Sexual Orientation Straight 06/12/2021 8: 44 AM CDT documented as of this encounter Miscellaneous Notes * Telephone Encounter - Liane Wheeler - 06/27/2024 5:03 PM CDT Called pt and scheduled appt w/Dr. Davis * Telephone Encounter - Donna Hollis - 06/13/2024 4:12 PM CDT Called s.w pt who verbally understood results and or recommendations Will await to see what EP states * Telephone Encounter - Shiva Anne MD - 06/12/2024 4:44 PM CDT Reilly, patient of mine whom I have been managing for systolic heart failure and ischemic cardiomyopathy. EF has somewhat stabilized finally around 45-50%, and is doing well now He has a RV pacemaker, and is 100% RV paced at this time. He will be due for generator exchange with you probably sometime towards the end of the year or early October I was hoping you could get him into the office as I would like you to sit down with him and discusswhether or not you think upgrading him to a Bi V system would make sense given his fluctuating EF and 100% RV pacing%. In my mind it makes sense to do this at the time of the generator exchange which will happen towards the end of the year, but would appreciate your opinion on this. If you agree I have copied Lisy or you can add your office staff to add him on for clinic visit sometime in the next few months documented in this encounter Plan of Treatment Not on file documented as of this encounter Visit Diagnoses Not on filedocumented in this encounter Care Teams Stumper Feller Relationship Specialty Start Date End Date Say Low MD [address] [email or web address] [address] [place], [place] [id number] PCP - General 02/15/17 documented as of this encounter
--- OUTSIDE RECORDS SUMMARY | 2024-09-22 19:02 | XMS_ITS | Encounter Summary ---
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 Verbally understood. MAR updated. Bmp order faxed to [facility] to recheck 4-5 weeks. * Telephone Encounter - Kimmy Kaiser - 03/30/2024 1:30 PM CDT ----- Message from Shiva Anne MD sent at 03/30/2024 1:04 PM CDT ----- Please reach out to Let him know [...] Type Priority Associated Diagnoses Orde r Schedule Basic metabolic panel Lab Routine 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 Expected: 04/27/2024 (Approximate), Expires: 03/30/2025 documented as of this encounter Visit Diagnoses Diagnosis 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- Primary documented in this encounter Care Teams Benefits Representative Relationship Specialty Start Date End Date Say Low MD [address] [facility] [address] [facility] [address] [place] [address] PCP - General 02/15/17 documented as of this encounter
--- OUTSIDE RECORDS SUMMARY | 2024-09-22 19:02 | XMS_ITS | Encounter Summary ---
Author Organization [facility] Healthcare Address [address] [place] [address] Care Team Providers Care Silk Screen Printer Machine Name Role Phone Say Low MD Primary Care Provider [phone] Reason for Visit * Auth/Cert (Routine) Specialty Diagnoses / Procedures Referred By Yary silveira Referred To Contact Diagnoses Pacemaker Pacemaker [Z95.0] Procedures REMOVE/REPLACE PACEMAKER (PPM) MULTI LEAD SYSTEM 00305 INSERT LV LEAD W PACEMAKER (PPM) OR IMPLANTABLE CARDIOVERTER-DEFIBRILLATOR (ICD) PLACEMENT (+) [id number] Referral ID Status Reason Start Date Expiration Date Visits Re quested Visits Authorized [id number] 1 1 Encounter Details Date Type Department Care Team (Latest Contact Info) Description 08/15/2024 1:48 PM MECHANIC FOREMAN Anesthesia Event [facility] [address] [place] [phone] Yuly Bell MD [address] [place] [address] Xochitl Barth CRNA [address] [facility] [address] [place] [address] Anesthesia Record Procedure Summary Procedure Name Responsible Anesthesiologist Anesthesia Start Time Anesthesia Stop Time REMOVE/REPLACE PACEMAKER (PPM) MULTI LEAD SYSTEM [id number] Yuly Bell MD 08/15/24 1348 08/15/24 1553 Events Date Time Event Comment 08/15/2024 1348 An Start 1348 An Start Data 1351 An Induction The patient was reevaluated immediately before moderate or deep sedation use and before anesthesia induction. 1355 Anesthesia Ready 1500 1546 an stop data 1553 Handoff to RN I completed my handoff to the receiving nurse during which we: 1. Patient identified 2. Responsible provider identified 3. Pertinent medical history reviewed 4. Procedure type and surgical course discussed 5. Intraoperative anesthetic management and any significant issues discussed 6. Expectations and concerns for postop period discussed 7. Questions solicited from receiving nurse 8. Patient disposition at the time of handoff: PACU 1553 An Stop 1554 Release from care Meds Name Total fentaNYL 50 mcg propofol 674.34 mg ePHEDrine 50 mg ceFAZolin 2,000 mg phenylephrine 10 mg/100 mL (100 mcg/mL) infusion 6.4 mg sodium chloride 0.9% infusion 300 mL * Agents Name O2 * Blood No blood administrations on file. Lines, Drains, and Airways Type Details Placement Removal Peripheral IV Catheter Size: 20 G; Orientation: Left, Posterior; Location: Hand; Inserted by: theodore orozco; Insertion Attempts: 1; Removal Date: 08/15/24; Removal Time: 1905; Removal Reason: Discharge 08/15/24 1303 by 08/15/24 1906 by Dolores Milan, RADHA RETIRED Surgical Site 01/17/19; 0831; Le ft; 09/04/24 (Retired LDA, Removed/Completed by [employer] with LDA Utility); 1213 (Retired LDA, Removed/Completed by [employer] with LDA Utility) 01/17/19 0831 by Bhavani Barcenas RN 09/04/24 1213 by Discharge Provider, Automatic documented in this encounter Social History Tobacco [...] on file Legal Sex Male 8:04 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 / [facility] Anesthesia Start: 1348 Anesthesia Stop: 1553 Procedures: REMOVE/REPLACE PACEMAKER (PPM) MULTI LEAD SYSTEM 99704 INSERT LV LEAD W PACEMAKER (PPM) OR IMPLANTABLE CARDIOVERTER-DEFIBRILLATOR (ICD) PLACEMENT (+) [id number] Diagnosis: Pacemaker (Pacemaker [Z95.0]) Providers: Wayne Davis MD Responsible Provider: Yuly Bell MD Anesthesia Type: general TIVA ASA Status: 3 Anesthesia Type: general TIVA Last vitals BP (!) 174/79 Pulse 70 Temp 37.1 ??C (98.8 ??F) Resp 16 SpO2 97% Anesthesia Post Evaluation Patient location during evaluation: PACU Patient participation: complete - patient participated Level of consciousness: fully awake Pain score: 0 Pain management: adequate Airway patency: adequate Evidence of recall: no Cardiovascular status: acceptable Respiratory status: acceptable Hydration status: acceptable Pt is: normothermic Nausea/Vomiting status: none No notable events documented. ANIC FOREMAN * Anesthesia Preprocedure Evaluation - Yuly Bell MD - 08/15/2024 12:35 PM MECHANIC FOREMAN Images from the original note were not included. Anesthesia Evaluation Drew Pak is a 84 y.o. male REMOVE/REPLACE PACEMAKER (PPM) MULTI LEAD SYSTEM 82205 INSERT LV LEAD W PACEMAKER (PPM) OR IMPLANTABLE CARDIOVERTER-DEFIBRILLATOR (ICD) PLACEMENT (+) [id number] Pre-Op Diagnosis Codes: * Pacemaker [Z95.0] HISTORY Past Medical History Information obtained from: patient and chart. Information obtained during: In Person Cardiovascular + Hypertension + CAD + CABG + Unknown stent(s) type - Prior stent(s) date: 1. + CHF LVEF: 40-50%. + Pacemaker/ICD ([employer] Pacemaker. in-office device interrogation 07/19/24 Interrogationof the patient's device demonstrates the following: Presenting EGM: A flutter V paced @ 70 bpm Underlying rhythm: Paced at 40 ppm) - Brand: [employer]. Comments: 06/26 CONCLUSIONS: 1. Mild left ventricular systolic dysfunction. [...] collapse consistent with elevated right atrial pressure. Respiratory + Sleep apnea (MACIEJ) Prescribed device: PAP non-compliant. Gastrointestinal + GERD - on daily therapy. Asymptomatic. Renal / + Renal disease - CKD + Nephrolithiasis Comments: K- 5.4 Musculoskeletal/Pain + Chronic pain - back pain. + Osteoarthritis Endocrine / Other + Diabetes mellitus - Diabetes type 2. + Obesity (BMI >30) Functional Capacity Functional capacity: ambulates with assistance only Functional capacity limited by a non-cardiovascular, non-pulmonary condition. Review of Systems + chronic pain Patient Active Problem List Diagnosis Date Noted CHB (complete heart block) (CMS/HCC) ([facility]) 07/19/2024 Typical atrial flutter (CMS/HCC) ([facility]) 07/19/2024 NICM (nonischemic cardiomyopathy) (CMS/HCC) ([facility]) 07/19/2024 CAD S/P percutaneous coronary angioplasty 07/13/2021 Coronary artery disease (CAD) excluded 07/13/2021 Hx of CABG 02/22/2020 Coronary artery disease involving coronary bypass graft of [place] heart with angina pectoris ([facility]) ([facility]) 02/22/2020 Preoperative cardiovascular examination 05/01/2019 Nephrolithiasis 01/04/2019 Pacemaker 07/04/2017 Bradycardia 06/05/2017 RBBB 06/05/2017 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 First degree AV block 06/05/2017 AV node dysfunction 04/29/2017 Right flank pain 02/11/2017 Lower urinary tract symptoms (LUTS) 11/12/2015 Ankylosis of ankle joint 10/08/2015 Arthralgia of shoulder 09/18/2014 Arthralgia of ankle 09/19/2012 Urinary tract infection 06/20/2012 Past Medical History: Diagnosis Date Arthritis CHF [place]congestive heart failure) [place]) Chronic kidney disease Congestive heart failure (CHF) [place]) COPD (chronic obstructive pulmonary disease) ([facility]) Diabetes mellitus ([facility]) HX OTHER MEDICAL leg/ ankle surgery due to fall of a roof (2010) Hyperlipidemia Hypertension Kidney stone Urolithiasis Past Surgical History: Procedure Laterality Date BACK SURGERY CARDIAC CATHETERIZATION CARDIAC PACEMAKER PLACEMENT Pacemaker Placement - (Added by TW Conv) CORONARY ARTERY BYPASS GRAFT 2003 saphenous vein to the 1st obtuse marginal, 2nd obtuse marginal, and posterior descending branch of the right coronary artery LITHOTRIPSY REPLACEMENT TOTAL KNEE Right 12/2020 TIBIA FRACTURE SURGERY 2010 r/t trauma UPPER GASTROINTESTINAL ENDOSCOPY No Known Allergies Taking? Last Dose Start Date End Date Provider allopurinoL (ZYLOPRIM) 300 mg tablet -- 12/15/19 -- Giovanni Donato MD ascorbic acid (vitamin C) 1,000 mg tablet -- -- -- Giovanni Donato MD aspirin 81 mg enteric coated tablet -- -- -- Giovanni Donato MD atorvastatin (LIPITOR) 10 mg tablet -- 05/15/24 -- Shiva Anne MD Take 0.5 tablets (5 mg total) by mouth daily carvediloL (COREG) 12.5 mg tablet -- -- -- Giovanni Donato MD cholecalciferol (VITAMIN D-3) 2,000 unit tablet -- -- -- Giovanni Donato MD folic acid (FOLVITE) 1 mg tablet -- -- -- Gioavnni Donato MD furosemide (LASIX) 40 mg tablet -- -- -- Giovanni Donato MD losartan (COZAAR) 100 mg tablet -- 11/17/15 -- Shanda Edge MD take 1 tablet by oral route every day Patient taking differently: Take 1 tablet (100 mg total) by mouth nightly omeprazole (PriLOSEC) 40 mg capsule -- -- -- Giovanni Donato MD potassium citrate ER (UROCIT-K) 10 mEq (1,080 mg) CR tablet -- 03/03/21 -- Elvin Dsouza NP Take 1 tablet (10 mEq total) by mouth daily quercetin 500 mg capsule -- -- -- Giovanni Donato MD spironolactone (ALDACTONE) 25 mg tablet -- 03/22/24 03/22/25 Shiva Anne MD Take 0.5 tablets (12.5 mg total) by mouth daily SYNJARDY XR 5-1,000 mg tablet, IR & ER, biphasic 24hr -- 03/28/18 -- Giovanni Donato MD tamsulosin (FLOMAX) 0.4 mg capsule,extended release 24hr -- 09/10/15 -- Shanda Edge MD take 1 capsule by oral route every day 1/2 hour following the same meal each day Patient taking differently: Take 1 capsule (0.4 mg total) by mouth every morning vitamin b complex tablet -- -- -- Giovanni Donato MD Xarelto 20 mg tablet 08/11/2024 07/23/24 -- Shiva Anne MD TAKE 1 TABLET(20 MG) BY MOUTH DAILY Current Facility-Administered Medications: sodium chloride 0.9% infusion, 50 mL/hr, intravenous, Continuous Facility-Administered Medications Ordered in Other Encounters: sodium chloride 0.9% flush 0.5-20 mL, 0.5-20 mL, intra-catheter, Q8H INGRID sodium chloride 0.9% flush 0.5-20 mL, 0.5-20 mL, intra-catheter, PRN Social History Tobacco Use Smoking Status Former Current packs/day: 0.00 Average packs/day: 3.0 packs/day for 22.6 years (67.7 ttl pk-yrs) Types: Cigarettes Start date: 1960 Quit date: 04/29/1983 Years since quittin.3 Smokeless Tobacco Never Alcohol Use: Not At Risk (07/13/2021) AUDIT-C Frequency of Alcohol Consumption: Never Average Number of Drinks: Not on file Frequency of Binge Drinking: Not on file Substance and Sexual Activity Drug Use No Family History Problem Relation Age of Onset Alzheimer's disease Mother Alzheimer's disease; Stroke Mother Arthritis Mother Diabetes Mother Hypertension Mother Gout Mother Heart attack Other Family history of Myocardial infarction; Cause of : Family history of Myocardial infarction Heart attack Father Cancer Father Heart disease Father Hypertension Father There were no vitals filed for this visit. PT: No results found for requested labs within last 30 days. INR: No results found for requested labs within last 30 days. APTT: No results found for requested labs within last 30 days. Hgb A1C: No results found for requested labs within last 30 days. CBC RBC: No results found for requested labs within last 30 days. RDW: No results found for requested labs within last 30 days. MCHC: No results found for requested labs within last 30 days. MCH: No results found for requested labs within last 30 days. MCV: No results found for requested labs within last 30 days. Hct: No results found for requested labs within last 30 days. Hgb: No results found for requested labs within last 30 days. WBC: No results found for requested labs within last 30 days. MPV: No results found for requested labs within last 30 days. Platelets: No results found for requested labs within last 30 days. RDW CV: No results found for requested labs within last 30 days. RDW Sd: No results found for requested labs within last 30 days. BMP Glucose: No results found for requested labs within last 30 days. Calcium: No results found for requested labs within last 30 days. Sodium: No results found for requested labs within last 30 days. Potassium: No results found for requested labs within last 30 days. CO2: No results found for requested labs within last 30 days. Chloride: No results found for requested labs within last 30 days. BUN: No results found for requested labs within last 30 days. Creatinine: No results found for requested labs within last 30 days. DOS Physical Exam Medical history, medications, and allergies not reviewed. Attestation: This PAT evaluation 08/15/2024. Airway Exam: Mallampati: II Cervical ROM: limited extension TM distance: normal Pulmonary Exam: LCTA, bilat Dental Exam: Otherwise appears intact Skin Exam: Turgor is normal. Current state: Patient's current state is cooperative and interactive. Additional comments: Hearing Aids Anesthesia Plan ASA 3 My patient is approved for the Anesthesia Controlled Medication protocol when under care of a WARP KNITTING MACHINE OPERATOR Planned anesthesia: General TIVA Induction: Induction: intravenous. Postoperative Plan: No plan for postoperative opioid use. No postoperative mechanical ventilation intended. Patient's planned disposition post procedure is Floor. Informed Consent: Discussed plan with WARP KNITTING MACHINE OPERATOR. Anesthesia plan and risks discussed with patient. Consent and Attending signature: I and/or my designee have discussed the anesthesia plan, benefits, possible alternatives, parental presence at time of induction (if indicated), and clinically relevant risks that may include dental injury, unintentional awareness, and/or other complications. The patient and/or parent/legal guardian understand, and agree to proceed. All questions answered. ANIC FOREMAN ANIC FOREMAN ANIC FOREMAN ANIC FOREMAN ANIC FOREMAN ANIC FOREMAN documented in this encounter Plan of Treatment Not on file documented as of this encounter Visit Diagnoses Not on filedocumented in this encounter Administered Medications Inactive Administered Medications - up to 3 most recent administrations Medication Order MAR Action Action Date Dose Rate Site ceFAZolin (ANCEF) injection intravenous, Administer over 3 Minutes, As needed, Starting on Tue08/15/24 at 1356, Anesthesia Intra-op Given 08/15/2024 1:56 PM MECHANIC FOREMAN 2,000 mg ePHEDrine injection intravenous, Administer over 5 Minutes, As needed, Starting on Tue08/15/24 at 1415, Anesthesia Intra-op Given 08/15/2024 2:53 PM MECHANIC FOREMAN 10 mg Given 08/15/2024 2:46 PM MECHANIC FOREMAN 10 mg Given 08/15/2024 2:40 PM MECHANIC FOREMAN 10 mg fentaNYL (SUBLIMAZE) preservative free injection intravenous, As needed, Starting on Tue08/15/24 at 1351, Anesthesia Intra-op Given 08/15/2024 1:59 PM MECHANIC FOREMAN 25 mcg Given 08/15/2024 1:51 PM MECHANIC FOREMAN 25 mcg phenylephrine (JOSÉ LUIS-SYNEPHRINE) 100 mcg/mL in sodium chloride 0.9% intravenous, Continuous PRN, Starting on Tue08/15/24 at 1359, Anesthesia Intra-op Rate/Dose Change 08/15/2024 3:08 PM MECHANIC FOREMAN 0.9 mcg/kg/min 54.594 mL/hr Rate/Dose Change 08/15/2024 3:01 PM MECHANIC FOREMAN 0.8 mcg/kg/min 48. 528 mL/hr Rate/Dose Change 08/15/2024 2:16 PM MECHANIC FOREMAN 0.6 mcg/kg/min 36. 396 mL/hr propofoL (DIPRIVAN) 10 mg/mL IV intravenous, Continuous PRN, Starting on Tue08/15/24 at 1351, Anesthesia Intra-op Rate/Dose Change 08/15/2024 3:31 PM MECHANIC FOREMAN 30 mcg/kg/min 18.198 mL/hr Rate/Dose Change 08/15/2024 3:11 PM MECHANIC FOREMAN 45 mcg/kg/min 27.2 97 mL/hr Rate/Dose Change 08/15/2024 3:07 PM MECHANIC FOREMAN 55 mcg/kg/min 33.3 63 mL/hr sodium chloride 0.9% infusion 50 mL/hr, intravenous, Continuous, Starting on Tue08/15/24 at 1315, Pre-Procedure (CV) New Bag 08/15/2024 1:48 PM MECHANIC FOREMAN documented in this encounter Care Teams Silk Screen Printer Machine Relationship Specialty Start Date End Date Say Low MD [address] [facility] [place] [address] PCP - General 02/15/17 documented as of this encounter
--- OUTSIDE RECORDS SUMMARY | 2024-09-22 19:02 | XMS_ITS | Encounter Summary ---
Author Organization [facility] Healthcare Address [address] [place] [address] Care Team Providers Care Information Technology Analyst Name Role Phone Say Low MD Primary Care Provider [phone] Encounter Details Date Type Department Care Team (Late st Contact Info) Description 07/19/2024 Telephone [facility] [address] [phone] Celestina Perez BKaren Social History Tobacco Use Types Packs/Day Years [...] on file Legal Sex Male 8:04 PM FORGEMAN HELPER Gender Identity Male 07/10/2021 8:31 AM CDT Sexual Orientation Straight 06/12/2021 8: 44 AM CDT documented as of this encounter Miscellaneous Notes * Telephone Encounter - Celestina Perez B.A. - 07/19/2024 4:51 PM CDT Scheduled patient for device on 08/15/[address] Davis per OV 07/19/24 Wound chk 08/28/24 Reviewed instructions and sent letter via MyChart/Mail Created Prep for Case Added to Pre-cert spreadsheet E-mailed Case Sheet to Power Plant Engineer No allergies to iodine or contrast dye documented in this encounter Plan of Treatment Not on file documented as of this encounter Visit Diagnoses Not on filedocumented in this encounter Care Teams Information Technology Analyst Relationship Specialty Start Date End Date Say Low MD [address] [facility] [place] [id number] PCP - General 02/15/17 documented as of this encounter
--- OUTSIDE RECORDS SUMMARY | 2024-09-22 19:02 | XMS_ITS | Encounter Summary ---
Author Organization [facility] Healthcare Address [address] [place] [address] Care Team Providers Care Director Of Retention Name Role Phone Say Low MD Primary Care Provider [phone] Reason for Visit * Reason Comments Follow-up Hyperlipidemia Lipid in office toda y Encounter Details Date Type Department Care Team (Late st Contact Info) Description 06/12/2024 10:45 AM CDT Office Visit [facility] Medical Group Cardiology [address] [facility] [address] [address] Shiva Anne MD [facility] [address] [place] [address] 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 (CMS/HCC) (HCC) (Primary Dx); Hx of CABG; Pacemaker; Paroxysmal atrial fibrillation (CMS/HCC) (HCC); History of percutaneous coronary intervention; Acute combined systolic and diastolic heart failure [...] Average Number of Drinks Not on file 10/11/2 021 Frequency of Binge Drinking Not on file 07/03 Sex and Gender Information Value Date Recorded Sex Assigned at Not on file 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 Gender Identity Male 07/10/2021 8:31 AM CDT Sexual Orientation Straight 06/12/2021 8: 44 AM CDT documented as of this encounter Last Filed Vital Signs Vital Sign Reading Time Taken Comments Blood Pressure 132/74 06/12/2024 10:06 AM CDT Pulse 70 06/12/2024 10:06 AM CDT Temperature - - Respiratory Rate - - Oxygen Saturation 98% 06/12/2024 10:06 AM CDT Inhaled Oxygen Concentration - - Weight 103.4 kg (228 lb) 06/12/2024 10:06 AM CDT Height - - Body Mass Index 34.67 03/30/2024 8:36 AM CDT documented in this encounter Progress Notes * Shiva Anne MD - 06/12/2024 10:45 AM CDT Images from the original note were not included. [facility] [address] [place] [address], [address], [address] [place] [phone] Cardiology Electrophysiology Niko cEhevarria, MD Wayne Davis,, MD Arslan Alcala, MD Klever Bolton, MD Patrick Avalos, MD Isaac Byrd, MD Elgin Bowles, MD Elia Jett, MD Ambika Montes De Oca, BROKE WORKER Gilson Eden, MD Kasie Frye, BROKE WORKER Troy Shipley, MD Esther Miller, SORTER PACKER Shiva Anne, MD Toshia Medley, SORTER PACKER Xiomara Millan, SORTER PACKER Elizabet Tyler, SORTER PACKER Arslan Walsh, PA Patient Name: Drew Pak Provider: Shiva Anne MD : 1940 Date of Service: 06/12/2024 Referring: Maranda CHIEF COMPLAINT: Follow-up and Hyperlipidemia (Lipid in office today/) HISTORY OF PRESENT ILLNESS: Coronary artery disease with prior CABG, atrial fibrillation, Fluctuating EF, 53%, 35%, recent recovery to 50% which is around his prior baseline Chronic back pain with multiple surgeries over the years Last visit increase furosemide from 40 mg every other day to 40 mg daily Ordered a stress test for an ischemic evaluation History of Present Illness The patient, with a history of heart failure, presents for a follow-up visit in limited echo He reports feeling 'pretty good' and has noticed an improvement in his condition. The patient also recently turned 84 and is concerned about how his heart condition might impact hislongevity. He expresses a desire to understand how his current heart function might affect his future health and quality of life. I reviewed this patient's Allergies and Current Medication List and updated as needed in the medical record. I reviewed this patient's Past Medical History, Social History, and Family History and updated as needed in the medical record. MEDICATIONS: Outpatient Encounter Medications as of 06/12/2024 Medication Sig Dispense Refill allopurinoL (ZYLOPRIM) 300 [...] total) by mouth daily 45 tablet 2 carvediloL (COREG) 12.5 mg tablet Take 1 tablet (12.5 mg total) by mouth 2 (two) times a day with meals cholecalciferol (VITAMIN D-3) 2,000 unit tablet Take 1 tablet (2,000 Units total) by mouth 2 (two) times a day empagliflozin (JARDIANCE) 10 mg tablet Take 1 tablet (10 mg total) by mouth daily 30 tablet 11 folic acid (FOLVITE) 1 mg tablet Take [...] tablet Take 1 tablet by mouth daily Facility-Administered Encounter Medications as of 06/12/2024 Medication Dose Route Frequency Provider Last Rate Last Admin [COMPLETED] perflutren lipid (DEFINITY) 1.5 mL in sodium chloride 0.9% 10 mL syringe 1-10 mL intravenous Once in imaging Shiva Anne MD 4 mL at 06/12/24 0944 sodium chloride 0.9% flush 0.5-20 mL 0.5-20 mL intra-catheter Q8H [facility] Patrick Taylor MD sodium chloride 0.9% flush 0.5-20 mL 0.5-20 mL intra-catheter PRN Patrick Taylor MD CARDIAC HISTORY & PROBLEM SUMMARY REVIEW OF SYSTEMS Pertinent review of systems negative unless otherwise stated in HPI above. PHYSICAL EXAM: BP 132/74 Pulse 70 Wt 103.4 kg (228 lb) SpO2 98% BMI 34.67 kg/m?? General: No apparent distress. Eyes: Sclerae anicteric. Neck: No obvious jugular venous distension seen. Respiratory: No respiratory distress,breathing comfortably no accessory muscle use Musculoskeletal: Grossly normal tone throughout. Neurologic: Grossly nonfocal. No dysarthria. Skin: No rashes seen. Psychiatric: Appropriate affect and interaction. MDM Problems Addressed: ICD-10-CM 1. 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 Reviewed interval labs: No results found for: LDLCALC , TRIG , HDL Lab Results Component Value Date SODIUM 139 03/30/2024 POTASSIUM 4.7 03/30/2024 CREATININE 2.29 (H) 03/30/2024 Lab Results Component Value Date HGB 11.1 (L) 07/14/2021 Results DIAGNOSTIC Echocardiography: Ejection fraction 45-50%, mildly depressed ASSESSMENT & PLAN DISCUSSION Assessment & Plan Systolic heart failure - Echo today shows some improvement in EF probably low-normal to mild dysfunction at this - after medical management with Coreg 12.5 b.i.d. - spironolactone 12.5 mg daily - And Jardiance - not on Slava Arb due to renal function - On furosemide 40 mg daily with euvolemic state today -Continue current medications. -No changes to medications today. - I think he may be a good candidate for Bi V system upgrade when he is due for generator exchange later this month Pacemaker Battery Replacement - 100% RV pacing - underlying AFib with Xarelto Battery due for replacement in October. Discussed potential for upgrading to a three lead system toprovide a more natural signal and potentially augment heart function. -Schedule appointment with Dr. Arellano to discuss options for battery replacement and potential upgrade to three lead system. -Continue current pacemaker settings until consultation with Dr. Arellano Hx of CABG - no signs or symptoms of angina - aggressive secondary prevention This note was dictated in part using [employer] voice recognition software. Despite careful review of this note, variances in spelling and vocabulary are possible and unintentional. 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 (CMS/HCC) (HCC) documented in this encounter Results * POCT lipid panel (06/12/2024 9:13 AM CDT) Cholesterol, POC <100 mg/dL HDL, POC 45 mg/dL Triglycerides, POC 56 mg/dL Cholesterol Total, POC <100 mg/dL Capillary blood 06/12/2024 9 :13 AM CDT us Shiva Anne MD POINT OF CARE TEST JPKelly MCCRAY Final Result documented in this encounter Visit Diagnoses Diagnosis 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 [address] [place] [address] PCP - General 02/15/17 documented as of this encounter
--- OUTSIDE RECORDS SUMMARY | 2024-09-22 19:02 | XMS_ITS | Encounter Summary ---
Author Organization [facility] Healthcare Address [address] [place] [address] Care Team Providers Care Senior Network Administrator Name Role Phone Say Low MD Primary Care Provider [phone] Reason for Referral * Cardiology (Routine) - Closed Specialty Diagnoses / Procedures Referred By Contac t Referred To Contact Diagnoses AV node dysfunction Procedures DEVICE CHECK - IN OFFICE Wayne Davis MD [address] [address] Phone: tel: fax: [facility] Medical Group Referral ID Status Reason Start Date Expiration Date Visits Re quested Visits Authorized [id number] Closed 08/28/2024 09/27/2025 1 1 TRIC GAS APPLIANCES DEMONSTRATOR * Cardiology (Routine) - Closed Specialty Diagnoses / Procedures Referred By Contac t Referred To Contact Diagnoses AV node dysfunction Bradycardia Procedures DEVICE CHECK - IN OFFICE Wayne Davis MD [address] [address] Phone: tel: fax: [facility] Medical Group Referral ID Status Reason Start Date Expiration Date Visits Re quested Visits Authorized [id number] Closed 06/27/2024 07/27/2025 1 1 Encounter Details Date Type Department Care Team (Late st Contact Info) Description 06/27/2024 Orders Only Arrhythmia Center [address] [place] [address] Wayne Davis MD [address] [facility] [address] [place] [address] AV node dysfunction (Primary Dx); Bradycardia Social History Tobacco Use Types Packs/Day Years [...] on file Legal 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 Gender Identity Male 07/10/2021 8:31 AM CDT Sexual Orientation Straight 06/12/2021 8: 44 AM CDT documented as of this encounter Miscellaneous Notes * Addendum Note - Rosa Meek RN - 06/27/2024 5:01 PM CDTAddended by: ROSA MEEK on: 08/28/2024 11:23 AM Modules accepted: Orders TRIC GAS APPLIANCES DEMONSTRATOR documented in this encounter Plan of Treatment Not on file documented as of this encounter Results * DEVICE CHECK - IN OFFICE (09/12/2024 10:59 AM ELECTRIC GAS APPLIANCES DEMONSTRATOR) Anatomical Region Laterality Modality Other Narrative 09/15/2024 3:28 PM ELECTRIC GAS APPLIANCES DEMONSTRATOR Table formatting from the original result was not included. BiV PACEMAKER CHECK (IN OFFICE) Patient ID: Drew Pak is a 84 y.o. male. This patient received a [place] scientific BiV Pacemaker. ??They had a routine [...] to SOFI Episodes last 90 days/Comments: AF [place] 0 %, longest duration 3 minutes and 35 seconds on 08/22. ?? Ventricular rates were controlled. ?? No new ventricular events. NORMAL DEVICE FUNCTION PROGRAMMED MEDICATIONS: Anti-coagulant(s): ??Aspirin 81 mg, Xarelto 20 mg daily Anti-arrhythmic(s): ??Coreg 12.5 mg twice a day PLAN: 1) normal [place] scientific BiV Pacemaker evaluation 2) [place] scientific remote transmission scheduled in 3 months. 3) Programming appropriate for device settings ?4) left subclavian incision well healed, remaining Dermabond removed without incident. Gisela Meek RN us Wayne Davis MD [facility] PRO CEDURES Final Result * DEVICE CHECK - IN OFFICE (07/19/2024 11:23 AM CDT) Anatomical Region Laterality Modality Other Narrative 07/22/2024 2:43 PM CDT Table formatting from the original result was not included. PM CHECK (IN OFFICE) Patient ID: Drew Pak is a 84 y.o. male This patient received a [place] scientific Pacemaker. ??They had a routine in-office [...] to SOFI Episodes last 90 days/Comments: AF [place] 100 % No new ventricular events. NORMAL DEVICE FUNCTION PROGRAMMED MEDICATIONS: Anti-coagulant(s): ??Aspirin 81 mg, Xarelto 20 mg daily Anti-arrhythmic(s): ??Coreg 12.5 mg twice a day PLAN: 1) normal [place] scientific Pacemaker evaluation 2) [place] scientific remote transmission scheduled in 3 months. 3) Programming appropriate for device measurements Gisela Meek RN us Wayne Davis MD [facility] PRO CEDURES Final Result documented in this encounter Visit Diagnoses Diagnosis AV node dysfunction- Primary Bradycardia Other specified cardiac dysrhythmias Pacemaker- Primary Cardiac pacemaker in situ AV node dysfunction Bradycardia Other specified cardiac dysrhythmias NICM (nonischemic cardiomyopathy) (CMS/HCC) (HCC)- Primary AV node dysfunction Pacemaker Cardiac pacemaker in situ documented in this encounter Care Teams Senior Network Administrator Relationship Specialty Start Date End Date Say Low MD [address] [facility] [address] [place] [address] PCP - General 02/15/17 documented as of this encounter
--- OUTSIDE RECORDS SUMMARY | 2024-09-22 19:02 | XMS_ITS | Encounter Summary ---
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) Procedures NM MPI SPECT (Rest and/or Stress) Multiple Studies Jeremías Anne MD [address], [place] [address] Phone: tel: fax: [facility] [address] [place] [address] Referral ID Status Reason Start Date Expiration Date Visits Re quested Visits Authorized [id number] Closed 03/30/2024 04/29/2025 1 1 Reason for Visit * Diagnostic Imaging (Routine) - Closed Specialty Diagnoses / Procedures Referred By Yary silveira Referred To Contact Diagnoses Hx of CABG 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) Procedures NM MPI SPECT (Rest and/or Stress) Multiple Studies Jeremías Anne MD [address] [place] [address] Phone: tel: fax: [facility] [address] [place] [address] Referral ID Status Reason Start Date Expiration Date Visits Re quested Visits Authorized [id number] Closed 03/30/2024 04/29/2025 1 1 Encounter Details Date Type Department Care Team (Latest Contact Info) Description 04/10/2024 9:48 AM CDT - 04/10/2024 11:59 PM CDT Hospital Encounter [facility] OP Cardiac Testing [address] [place] [address] Hx of CABG; Acute combined systolic and diastolic heart failure [...] on file 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 [address] [place] [address] MPI Imaging Report Patient Name: DREW NEWMAN [...] %. Electronically Signed By: Jeremías Anne MD [facility] 2024-04-10 16:22:09 CDT Procedure Note Jeremías Anne MD - 04/10/2024 [facility] Cardiac Testing Center [address] [place] [id number] MPI Imaging Report Patient Name: DREW NEWMAN [...] %. 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 documented in this encounter Administered Medications Inactive Administered Medications - up to 3 most recent administrations Medication Order MAR Action Action Date Dose Rate Site regadenoson (LEXISCAN) 0.4 mg/5 mL injection 0.4 mg 0.4 mg, intravenous, Once, On e 04/10/24 at 1030, For 1 dose, Administer IV push over 10 seconds., Indications: Myocardial Perfusion Imaging AdjunctIndications:Myocard ial Perfusion Imaging Adjunct Given 04/10/2024 11:00 AM CDT 0.4 mg tc-99m sestamibi unit dose injection 25.3 millicurie 25.3 millicurie, intravenous, Once in imaging, radiopharmaceutical, Starting on Tue04/10/24 at 0958, For 1 dose, Indications: Diagnostic RadiographyIndications:Windy gnostic Radiography Given 04/10/2024 11:00 AM CDT 25.3 millicuries tc-99m sestamibi unit dose injection 8.3 millicurie 8.3 millicurie, intravenous, Once in imaging, radiopharmaceutical, Starting on Tue04/10/24 at 0958, For 1 dose, Indications: Diagnostic RadiographyIndications:Windy gnostic Radiography Given 04/10/2024 9:58 AM CDT 8.3 millicuries documented in this encounter Care Teams Manager Of Internal Audit Relationship Specialty Start Date End Date Say Low MD [address] [facility] [address] [facility] [address] [place] [address] PCP - General 02/15/17 documented as of this encounter
--- OUTSIDE RECORDS SUMMARY | 2024-09-22 19:02 | XMS_ITS | Encounter Summary ---
Author Organization [facility] Healthcare Address [address] [place] [address] Care Team Providers Care Kennel Manager Name Role Phone Say Low MD Primary Care Provider [phone] Reason for Visit * Cardiology (Routine) - Closed Specialty Diagnoses / Procedures Referred By Yary silveira Referred To Contact Diagnoses Pacemaker Procedures DEVICE CHECK - IN OFFICE Wayne Davis MD [address] [address] Phone: tel: fax: [facility] Medical Group Referral ID Status Reason Start Date Expiration Date Visits Re quested Visits Authorized [id number] Closed 07/12/2024 08/11/2025 1 1 Encounter Details Date Type Department Care Team (Latest Contact Info) Description 08/28/2024 11:30 AM THREAD MILLING MACHINE SET UP OPERATOR Ancillary Procedure Arrhythmia Center [address] [facility] [address] [place] [phone] NICM (nonischemic cardiomyopathy) (CMS/HCC) (HCC) (Primary Dx); Pacemaker Social History Tobacco Use [...] on file Legal Sex Male 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 Gender Identity Male 07/10/2021 8:31 AM CDT Sexual Orientation Straight 06/12/2021 8: 44 AM CDT documented as of this encounter Plan of Treatment Not on file documented as of this encounter Procedures Procedure Name Priority Date/Time Associated Diagnosis Comments DEVICE CHECK - IN OFFICE Routine 08/28/2024 11:01 AM THREAD MILLING MACHINE SET UP OPERATOR Pacemaker documented in this encounter Results * DEVICE CHECK - IN OFFICE (08/28/2024 11:01 AM THREAD MILLING MACHINE SET UP OPERATOR) Anatomical Region Laterality Modality Other Narrative 09/01/2024 11:06 AM THREAD MILLING MACHINE SET UP OPERATOR Table formatting from the original result was not included. BiV PACEMAKER CHECK (IN OFFICE) Patient ID: Drew Pak is a 84 y.o. male. This patient received a [place] scientific BiV Pacemaker. ??They had a routine [...] to SOFI Episodes last 90 days/Comments: AF [place] <1 %, longest duration 3 minutes and 35 seconds. ?? No new ventricular events. NORMAL DEVICE FUNCTION PROGRAMMED MEDICATIONS: Anti-coagulant(s): ??Aspirin 81 mg, Xarelto 20 mg daily Anti-arrhythmic(s): ??None PLAN: 1) normal [place] scientific BiV Pacemaker evaluation 2) wound and device check in 1 month. 3) Programming appropriate for device settings ?4) left subclavian incision well approximated with Dermabond intact. Minimal swelling at incision site. ??No evidence of drainage, infection, or bruising. ??Reviewed postop instructions and restrictions. Gisela Butler RN us Wayne Davis MD [facility] PRO CEDURES Final Result documented in this encounter Visit Diagnoses Diagnosis NICM (nonischemic cardiomyopathy) (CMS/HCC) (HCC)- Primary Pacemaker Cardiac pacemaker in situ documented in this encounter Care Teams Kennel Manager Relationship Specialty Start Date End Date Say Low MD [address] [facility] [address] [place] [address] PCP - General 02/15/17 documented as of this encounter
--- OUTSIDE RECORDS SUMMARY | 2024-09-22 19:02 | XMS_ITS | Encounter Summary ---
Author Organization [facility] Healthcare Address [address] [place] [address] Care Team Providers Care Crm Functional Analyst Name Role Phone Say Low MD Primary Care Provider [phone] Reason for Visit * Cardiology (Routine) - Closed Specialty Diagnoses / Procedures Referred By Yary silveira Referred To Contact Diagnoses Mobitz II Procedures DEVICE CHECK - REMOTE Wayne Davis MD [address] [address] Phone: tel: fax: Referral ID Status Reason Start Date Expiration Date Visits Re quested Visits Authorized [id number] Closed 10/31/2023 04/30/2025 1 1 Encounter Details Date Type Department Care Team (Latest Contact Info) Description 04/30/2024 1:45 PM CDT Ancillary Procedure Arrhythmia Center [address] [facility] [address] [place] [phone] Pacemaker (Primary Dx); Mobitz II Social History Tobacco Use Types Packs/Day Years [...] on file 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 PM CHECK (REMOTE) Patient ID: Drew Pak is a 83 y.o. male This patient received a [place] scientific Pacemaker. ??They had a routine remote transmission on 04/30/2024. Device implant indications: ??Mobitz type 2 ?? Interrogation of the patient's device demonstrates the following: Presenting EGM: ??A flutter with RV pace @ 75 bpm Original Device Settings Right Atrium Right Ventricle Sensitivity (mV) 0.15 mV 2.5 mV Pacing Outputs 1.5 V @ 0.40 ms 2.0 V @ 0.40 ms Testing Measurements Right Atrium Right Ventricle Sensitivity (mV) 3.7 mV >25.0 mV Impedence (Ohms) 454 ohms 461 ohms Pace Threshold Not done V @ ??ms 0.60 V @ .40 ms Pacing % 0 % 100 % Battery Status: ??4 months ??to SOFI Episodes last 90 days/Comments: AF [place] 100 % There were no new ventricular events noted on today's remote interrogation. NORMAL DEVICE FUNCTION PROGRAMMED MEDICATIONS: Anti-coagulant(s): ??Aspirin 81 mg, Xarelto 20 mg Anti-arrhythmic(s): ??Coreg 12.5 mg twice daily PLAN: 1) normal [place] scientific Pacemaker evaluation 2) [place] scientific remote transmission scheduled in 3 months. 3) Programming appropriate for device measurements Bhavani Dariana Wigge, RN us Wayne Davis MD [facility] PRO CEDURES Final Result documented in this encounter Visit Diagnoses Diagnosis Pacemaker- Primary Cardiac pacemaker in situ Mobitz II Mobitz (type) II atrioventricular block documented in this encounter Care Teams Crm Functional Analyst Relationship Specialty Start Date End Date Say Low MD [address] [facility] [address] [facility] [address] [place], [place] [id number] PCP - General 02/15/17 documented as of this encounter
--- OUTSIDE RECORDS SUMMARY | 2024-09-22 19:02 | XMS_ITS | Encounter Summary ---
Author Organization [facility] Healthcare Address [address] [place] [address] Care Team Providers Care Surgery Consultant Name Role Phone Say Low MD Primary Care Provider [phone] Reason for Visit * Cardiology (Routine) - Closed Specialty Diagnoses / Procedures Referred By Yary silveira Referred To Contact Diagnoses AV node dysfunction Bradycardia Procedures DEVICE CHECK - IN OFFICE Wayne Davis MD [address] [address] Phone: tel: fax: [facility] Medical Group Referral ID Status Reason Start Date Expiration Date Visits Re quested Visits Authorized [id number] Closed 06/27/2024 07/27/2025 1 1 Encounter Details Date Type Department Care Team (Latest Contact Info) Description 07/19/2024 11:45 AM CDT Ancillary Procedure Arrhythmia [facility] [address] [facility] [address] [place] [phone] Pacemaker (Primary Dx); AV node dysfunction; Bradycardia Social History Tobacco Use Types Packs/Day [...] on file Legal Sex Male 8:04 PM [employer] Gender Identity Male 07/10/2021 8:31 AM CDT Sexual Orientation Straight 06/12/2021 8: 44 AM CDT documented as of this encounter Plan of Treatment Not on file documented as of this encounter Procedures Procedure Name Priority Date/Time Associated Diagnosis Comments DEVICE CHECK - IN OFFICE Routine 07/19/2024 11:23 AM CDT AV node dysfunction Bradycardia documented in this encounter Results * DEVICE CHECK - IN OFFICE (07/19/2024 11:23 AM CDT) Anatomical Region Laterality Modality Other Narrative 07/22/2024 2:43 PM CDT Table formatting from the original result was not included. PM CHECK (IN OFFICE) Patient ID: Drew Pak is a 84 y.o. male This patient received a [employer] Pacemaker. ??They had a routine in-office [...] to SOFI Episodes last 90 days/Comments: AF Warren 100 % No new ventricular events. NORMAL DEVICE FUNCTION PROGRAMMED MEDICATIONS: Anti-coagulant(s): ??Aspirin 81 mg, Xarelto 20 mg daily Anti-arrhythmic(s): ??Coreg 12.5 mg twice a day PLAN: 1) normal [employer] Pacemaker evaluation 2) [employer] remote transmission scheduled in 3 months. 3) Programming appropriate for device measurements Gisela Delanty, RN us Wayne Davis MD [facility] PRO CEDURES Final Result documented in this encounter Visit Diagnoses Diagnosis Pacemaker- Primary Cardiac pacemaker in situ AV node dysfunction Bradycardia Other specified cardiac dysrhythmias documented in this encounter Care Teams Surgery Consultant Relationship Specialty Start Date End Date Say Low MD [address] [facility] [address] [facility] [place] [id number] PCP - General 02/15/17 documented as of this encounter
--- OUTSIDE RECORDS SUMMARY | 2024-09-22 19:02 | XMS_ITS | Clinical Summary ---
Author Organization [facility] Address [address] [place] [address] Care Team Providers Care Regional Geodetic Advisor Name Role Phone Say Low MD Primary Care Provider [phone] Allergies No known active allergies Medications tamsulosin [...] (Xarelto) 20 mg tabletIndication s:Paroxysmal atrial fibrillation (CMS/HCC) (HCC) Take 1 tablet [...] Date Diagnosed Date CHB (complete heart block) (CMS/HCC) 07/19/2024 Typical atrial flutter (CMS/HCC) 07/19/2024 Assessment & Plan (07/19/2024 2:15 PM [...] checks when necessary. The patient has a COR4SY0-CETu score of 4 (annualized risk of stroke 4%). I have therefore recommended continued anticoagulation for thromboprophylaxis. NICM (nonischemic cardiomyopathy) ([facility]) 07/03 CAD S/P percutaneous coronary angioplasty 2020 Coronary artery disease (CAD) excluded Hx of CABG 02/22/2020 Coronary artery disease invo lving coronary bypass graft of [place] heart with angina pectoris ([facility]) 02/22/2020 Assessment & Plan (02/22/2020 6:54 [...] at that time. I did check, the thesweetlink wraps are are coming to [facility]. So I think he should be able to get his MRI done. Preoperative cardiovascular examination 05/01/20 19 Assessment & Plan (05/01/2019 11:30 AM CDT): Due to the silent ischemia, CABG in 2003, he needs an aggressive evaluation. Nephrolithiasis 01/04/2019 Overview (01/04/2019): Added automatically from request for surgery [id number] Pacemaker 07/04/2017 Overview (07/04/2017): [employer] DDD Essentio L111 pacemaker implanted on 07/04/17 [...] will make the appropriate arrangements. From: Keon MK, Gabriel KK, Bernard C et al. 2022 HRS/APHRS/LAHRS guideline on cardiac physiologic pacing for the avoidance and mitigation of heart failure. Heart Rhythm 2022;20:e17-e91. Class I: In patients with a CIED with a decline in LV function or worsening of HF symptoms attributed to substantial ventricular pacing, BINITROTOLUENE OPERATOR with BiV pacing is recommended to improve [...] 6:52 PM CDT): Status post pacemaker placement, [employer] device for second-degree AV block Normal [...] of ankle 09/19/2012 Urinary tract infection 06/20/2012 Encounters Date Type Department Care Team Description 09/12/2024 11:15 AM BLOWER INSULATOR Ancillary Procedure [facility] [address] [place] [address] [address], [place] [id number] NICM (nonischemic cardiomyopathy) (CMS/HCC) (HCC) (Primary Dx); AV node dysfunction; Pacemaker 09/05/2024 Telephone [facility] Medical [facility] Cardiology [address] [facility] [address] [place] [address] Shiva Anne MD low BPS'? 08/29/2024 Orders Only [facility] [address] [place] [address] [place] [phone] Wayne Davis MD NICM (nonischemic cardiomyopathy) (CMS/HCC) (HCC) (Primary Dx) 08/28/2024 11:30 AM BLOWER INSULATOR Ancillary Procedure [facility] [address] [place] [address] [place] [phone] NICM (nonischemic cardiomyopathy) (CMS/HCC) (HCC) (Primary Dx); Pacemaker 08/15/2024 2:50 PM BLOWER INSULATOR - 08/15/2024 4:40 PM BLOWER INSULATOR Surgery [facility] [place] [address] Wayne Davis MD REMOVE/REPLACE PACEMAKER (PPM) MULTI LEAD SYSTEM [id number] 08/15/2024 1:48 PM BLOWER INSULATOR Anesthesia Event [facility] [address] [place] [address] Yuly Bell MD Lorusso, Chynna Janae, CRNA 08/15/2024 12:30 PM BLOWER INSULATOR - 08/15/2024 7:16 PM BLOWER INSULATOR Hospital Encounter [facility] [address] [place] [address] Wayne Davis MD Pacemaker; Paroxysmal atrial fibrillation (CMS/HCC) ([facility]) Discharge Disposition: Discharge to home or self care 07/19/2024 12:00 PM CDT Office Visit [facility] [address] [place] [phone] Wayne Davis MD Cardiac arrhythmia, unspecified cardiac arrhythmia type (Primary Dx); Pacemaker; CHB (complete heart block) (CMS/HCC) ([facility]); Typical atrial flutter (CMS/HCC) ([facility]); NICM (nonischemic cardiomyopathy) (CMS/HCC) ([facility]) 07/19/2024 11:45 AM CDT Ancillary Procedure [facility] [address] [place] [phone] Pacemaker (Primary Dx); AV node dysfunction; Bradycardia 07/19/2024 Telephone [facility] [address] [place] [phone] Celestina Perez, B.AShayla 06/27/2024 Orders Only [facility] [address] [place] [phone] Wayne Davis MD AV node dysfunction (Primary Dx); Bradycardia 06/25/2024 Telephone [facility] Medical Group Cardiology [address] [facility] [address] [place] [address] Shiva Anne MD Med Management from Last 3 Months Surgical History Surgery Date Site/Laterality Comments CORONARY ARTERY BYPASS GRAFT 10/03/2003 - 10/02/2004 saphenous vein to the 1st obtuse marginal, 2nd obtuse marginal, and posterior descending branch of the right coronary artery CARDIAC CATHETERIZATION CARDIAC PACEMAKER PLACEMENT Pacemaker Placement - (Added by TW Conv) LITHOTRIPSY TIBIA FRACTURE SURGERY 10/03/2010 - 10/02/2011 r/t trauma UPPER GASTROINTESTINAL ENDOSCOPY BACK SURGERY REPLACEMENT TOTAL KNEE 12/01/2020 - 12/31/2020 Right Medical History Medical History Date Comments Hx Other Medical leg/ ankle surg eze due to fall of a roof (2010) Hyperlipidemia Hypertension Diabetes mellitus (HCC) CHF (congestive heart failur e) (CMS/HCC) ([facility]) COPD (chronic obstructive pu lmonary disease) ([facility]) Chronic kidney disease Kidney stone Urolithiasis Arthritis Congestive heart failure (CH F) (CMS/HCC) (HCC) Family History Medical History Relation Name Comments Cancer Father Heart attack Father Heart disease Father Hypertension Father Alzheimer's disease Mother Alzheime r's disease; Arthritis Mother Diabetes Mother Gout Mother Hypertension Mother Stroke Mother Heart attack Other 2 Family history of Myocardial infarction; Cause of : Family history of Myocardial infarction Relation Name Status Comments Father Mother Other 1 Other 2 Social History Tobacco Use Types Packs/Day Years [...] on file Legal Sex Male 8:04 PM BLOWER INSULATOR Gender Identity Male 07/10/2021 8:31 AM CDT Sexual Orientation Straight 06/12/2021 8: 44 AM CDT Obstetrics History Last Filed Vital Signs Vital Sign Reading Time Taken Comments Blood Pressure 114/58 08/15/2024 5:50 PM BLOWER INSULATOR Pulse 81 08/15/2024 5:50 PM BLOWER INSULATOR Temperature 37.1 ??C (98.8 ??F) 08/15/2024 1:03 PM CS T Respiratory Rate 26 08/15/2024 5:50 PM BLOWER INSULATOR Oxygen Saturation 93% 08/15/2024 5:50 PM BLOWER INSULATOR Inhaled Oxygen Concentration - - Weight 101.1 kg (222 lb 14.2 oz) 08/15/2024 1:03 PM BLOWER INSULATOR Height 172.7 cm (5' 8 ) 08/15/2024 1:03 PM BLOWER INSULATOR Body Mass Index 33.89 08/15/2024 1:03 PM BLOWER INSULATOR Plan of Treatment Health Maintenance Due Date Last Done Comments Depression Screening 1942 DTaP/Tdap/Td Vaccine (1 - Tdap) 1953 Hepatitis B Screening 1960 Zoster Vaccine (1 of 2) 1992 Pneumococcal vaccine 65+ (1 of 1 - PCV) 2007 Well Visit 65+ 2007 Fall Risk Assessment 07/14/2022 07/14/2021 Influenza Vaccine (#1) 2024 Abdominal Aortic Aneurysm (A AA) Screen Completed 09/14/2022, 01/04/2019, 02/11/2017 Medical Devices Implanted Type Area Advanced Practice Rn Device Identifier Shelf Expiration Date Model / Serial / Lot [employer] Acuity X4 3.9-5.2fr 2.6fr 86cm Otw Quadripolar Long Straight [id number] - [id number] - [id number] Implanted:Qty: 1 on 08/15/2024 by Wayne Davis MD at [facility] Lead [employer] Tabby [id number] 04/28/2026 [id number] / [id number] / Pacemaker-07/04 Implanted:11/2016 (Quantity not on file) Pacemaker Chest Wall [employer] Tabby Pacemaker Single Chamber Artificial Pearl Maker P Visionist 0.75x4.45x6.17 cm [id number] - [id number] - [id number] Implanted:Qty: 1 on 08/15/2024 by Wayne Davis MD at [facility] Pacemaker [employer]by [id number] 06/08/2026 [id number] / [id number] / [employer] [id number] Synergy Xd Monorail 3.5mm 32mm 144cm Delivery System 1 Access - S0 - [id number] Implanted:Qty: 1 on 07/13/2021 by Troy Shipley MD at [facility] Stent [employer] Tabby 03/11/2023 [id number] / 0 / [id number] Description:LAD Explanted Type Area Advanced Practice Rn Device Identifier Shelf Expiration Date Model / Serial / Lot [employer] [id number] Inlay Athelstan 6fr 28cm Pusher Fluoro Marker Atraumatic Insertion Latex Free - [id number] Implanted:Qty: 1 on 01/17/2019 by Concetta Thurston MD at [facility] Explanted:Qty: 1 on 01/31/2019 by Elvin Carrillo NP Stent Left: Ureter [employer] [id number] 07/13/2023 [id number] / / [id number] Procedures Procedure Name Priority Date/Time Associated Diagnosis Comments DEVICE CHECK - IN OFFICE Routine 09/12/2024 10:59 AM BLOWER INSULATOR AV node dysfunction DEVICE CHECK - IN OFFICE Routine 08/28/2024 11:01 AM BLOWER INSULATOR Pacemaker XR CHEST PA LATERAL 2 VIEWS ED Urgent/IP Urgent 08/15/2024 6:05 PM BLOWER INSULATOR XR CHEST 1 VIEW ED Urgent/IP Urgent 08/15/2024 4:28 PM BLOWER INSULATOR ECG 12-LEAD Routine 08/15/2024 4:03 PM BLOWER INSULATOR INSERTION OF BIV ELECTRODE Routine 08/15/2024 3:35 PM BLOWER INSULATOR Pacemaker IMPLANTABLE CARDIAC DEVICE Routine 08/15/2024 3:35 PM BLOWER INSULATOR Pacemaker ECG 12-LEAD STAT 08/15/2024 1:06 PM BLOWER INSULATOR POCT GLUCOSE DEVICE Routine 08/15/2024 1 2:57 PM BLOWER INSULATOR EGFR STAT 08/15/2024 12:48 PM BLOWER INSULATOR DIFFERENTIAL AUTO STAT 08/15/2024 12: 48 PM BLOWER INSULATOR BASIC METABOLIC PANEL STAT 08/15/2024 12:48 PM BLOWER INSULATOR CBC WITH AUTO DIFFERENTIAL STAT 08/15/2024 12:48 PM BLOWER INSULATOR ECG 12-LEAD Routine 07/19/2024 11:51 AM CDT Cardiac arrhythmia, unspecified cardiac arrhythmia type DEVICE CHECK - IN OFFICE Routine 07/19/2024 11:23 AM CDT AV node dysfunction Bradycardia CT ABDOMEN PELVIS WO CONTRAST Schedule Routine, Read Routine (OP Routine) 09/14/2022 9:43 AM BLOWER INSULATOR Nephrolithiasis from Last 3 Months or Most Recently Relevant to Health Maintenance Results * DEVICE CHECK - IN OFFICE (09/12/2024 10:59 AM BLOWER INSULATOR) Anatomical Region Laterality Modality Other Narrative 09/15/2024 3:28 PM BLOWER INSULATOR Table formatting from the original result was not included. BiV PACEMAKER CHECK (IN OFFICE) Patient ID: Drew Newman is a 84 y.o. male. This patient received a [employer] BiV Pacemaker. ??They had a routine [...] to SOFI Episodes last 90 days/Comments: AF [place] 0 %, longest duration 3 minutes and 35 seconds on 08/22. ?? Ventricular rates were controlled. ?? No new ventricular events. NORMAL DEVICE FUNCTION PROGRAMMED MEDICATIONS: Anti-coagulant(s): ??Aspirin 81 mg, Xarelto 20 mg daily Anti-arrhythmic(s): ??Coreg 12.5 mg twice a day PLAN: 1) normal [employer] BiV Pacemaker evaluation 2) [employer] remote transmission scheduled in 3 months. 3) Programming appropriate for device settings ?4) left subclavian incision well healed, remaining Dermabond removed without incident. Gisela Butler RN us Wayne Davis MD CV CARDIAC SERVICES PRO CEDURES Final Result * DEVICE CHECK - IN OFFICE (08/28/2024 11:01 AM BLOWER INSULATOR) Anatomical Region Laterality Modality Other Narrative 09/01/2024 11:06 AM BLOWER INSULATOR Table formatting from the original result was not included. BiV PACEMAKER CHECK (IN OFFICE) Patient ID: Drew Newman is a 84 y.o. male. This patient received a [employer] BiV Pacemaker. ??They had a routine [...] to SOFI Episodes last 90 days/Comments: AF [place] <1 %, longest duration 3 minutes and 35 seconds. ?? No new ventricular events. NORMAL DEVICE FUNCTION PROGRAMMED MEDICATIONS: Anti-coagulant(s): ??Aspirin 81 mg, Xarelto 20 mg daily Anti-arrhythmic(s): ??None PLAN: 1) normal [employer] BiV Pacemaker evaluation 2) wound and [...] PA Lateral 2 View (08/15/2024 6:05 PM BLOWER INSULATOR) Anatomical Region Laterality Modality Body, Chest N/A Computed Radiogr aphy 08/15/2024 6:57 PM BLOWER INSULATOR Impressions 08/15/2024 6:57 PM BLOWER INSULATOR FINDINGS/IMPRESSION: Evaluation of the AP images are significantly limited due to overpenetration. Midline sternotomy wires are noted. Left chest wall cardiac pacer is redemonstrated. ??Mild right greater than left atelectatic changes are seen. ??No definite pleural effusion is noted. ??Evaluation for pneumothorax is limited due to limitation of the study. Electronically signed by: Adali Cat M.D. Narrative 08/15/2024 6:57 PM BLOWER INSULATOR EXAMINATION: XR CHEST PA LATERAL 2 VIEWS [...] Adali Cat M.D. us Wayne Davis MD IMG XR PROCEDURES Final Result * X-ray chest 1 view (08/15/2024 4:28 PM BLOWER INSULATOR) Anatomical Region Laterality Modality Body, Chest N/A Computed Radiogr aphy 08/15/2024 4:53 PM BLOWER INSULATOR Narrative 08/15/2024 4:53 PM BLOWER INSULATOR EXAMINATION: ?? XR CHEST 1 VIEW DATE: [...] * ECG 12 lead (08/15/2024 4:03 PM BLOWER INSULATOR) 08/15/2024 4:03 PM BLOWER INSULATOR Narrative [facility] - 08/16/2024 3:42 PM BLOWER INSULATOR Vent Rate: 74 bpm RR Interval: 810 msec ME Interval: 0 msec QRS Duration: 206 msec QT Interval: 461 msec QTC Interval: 488 msec P-R-T [place]: 0 - 151 - 52 degrees IMPRESSION: ELECTRONIC VENTRICULAR PACEMAKER ABNORMAL RHYTHM ECG Electronically Signed By: Troy Shipley [facility] Card us Wayne Davis MD ECG ORDERABLES Final R esult [facility] * BIVENTRICULAR PACEMAKER UPGRADE, INSERTION OF BIV ELECTRODE (08/15/2024 3:35 PM BLOWER INSULATOR) Anatomical Region Laterality Modality X-Ray Angiograph y Wayne Davis MD CV ELECTROPHYSIOLOGY ME OCS Final Result * ECG 12 lead (08/15/2024 1:06 PM BLOWER INSULATOR) 08/15/2024 1:06 PM BLOWER INSULATOR Narrative [facility] - 08/15/2024 1:38 PM BLOWER INSULATOR Vent Rate: 70 bpm RR Interval: 855 msec ME Interval: 145 msec QRS Duration: 176 msec QT Interval: 451 msec QTC Interval: 471 msec P-R-T [place]: 255 - 102 - -77 degrees IMPRESSION: ELECTRONIC VENTRICULAR PACEMAKER ABNORMAL RHYTHM ECG Electronically Signed By: Troy Shipley [facility] Card Wayne Davis MD ECG ORDERABLES Final R esult Performing Organization Address [facility] Co de Phone Number [facility] * POCT glucose (08/15/2024 12:57 PM BLOWER INSULATOR) [facility] Glucose, POC 104 70 - 199 mg/dL Comment: For Glucose values <35 mg/dl when Hematocrit is >60 mg/dl,the test may not accurately detect significant hypoglycemia,and testing in the Laboratory should be considered if clinically indicated. Blood 08/15/2024 12:5 7 PM BLOWER INSULATOR 08/15/2024 12:57 PM BLOWER INSULATOR Wayne Davis MD LAB POCT ORDERABLES - D EVICE Final Result Performing Organization Address [facility] Co de Phone Number [facility] [address] Department [place] [address] * (ABNORMAL) eGFR (08/15/2024 12:48 PM BLOWER INSULATOR) [facility] eGFR 40(L) >=60 mL/min/1. 73 m2 Comment: [...] reviewed 2021. Blood 08/15/2024 12:4 8 PM BLOWER INSULATOR 08/15/2024 1:07 PM BLOWER INSULATOR us Wayne Davis MD LAB BLOOD ORDERABLES Fi nal Result [facility] [address] Department [place] [address] * Differential, auto (08/15/2024 12:48 PM BLOWER INSULATOR) Neutrophil abs 5.7 1.5 - 6.5 K/cumm Imm gran abs 0.0 0.0 - 0.1 K/cumm [facility] Lymphocyte abs 1.4 0.8 - 3.3 K/cumm [facility] Monocyte abs 0.7 0.2 - 0.8 K/cumm [facility] Eosinophil abs 0.3 0.0 - 0.5 K/cumm [facility] Basophil abs 0.0 0.0 - 0.1 K/cumm [facility] Neutrophil pct 70.3 % [facility] Comment: Interpretive Data Percent cell count reference ranges are not reported, since discordance with absolute values may lead to misinterpretation of CBC data. Current Interpretive Data was last revised on 2018. Imm gran pct 0.2 % [facility] Comment: Interpretive Data Percent cell count reference ranges are not reported, since discordance with absolute values may lead to misinterpretation of CBC data. Current Interpretive Data was last revised on 2018. Lymphocyte pct 17.6 % [facility] Comment: Interpretive Data Percent cell count reference ranges are not reported, since discordance with absolute values may lead to misinterpretation of CBC data. Current Interpretive Data was last revised on 2018. Monocyte pct 8.3 % [facility] Comment: Interpretive Data Percent cell count reference ranges are not reported, since discordance with absolute values may lead to misinterpretation of CBC data. Current Interpretive Data was last revised on 2018. Eosinophil pct 3.1 % [facility] Comment: Interpretive Data Percent cell count reference ranges are not reported, since discordance with absolute values may lead to misinterpretation of CBC data. Current Interpretive Data was last revised on 2018. Basophil pct 0.5 % [facility] Comment: Interpretive Data Percent cell count reference ranges are not reported, since discordance with absolute values may lead to misinterpretation of CBC data. Current Interpretive Data was last revised on 2018. Blood 08/15/2024 12:4 8 PM BLOWER INSULATOR 08/15/2024 1:07 PM BLOWER INSULATOR us Wayne Davis MD LAB BLOOD ORDERABLES Fi nal Result [facility] [address] Department [place] [address] * (ABNORMAL) CBC with auto differential (08/15/2024 12:48 PM BLOWER INSULATOR) WBC 8.1 3.8 - 9.9 K/cumm Hgb 13.5 13.0 - 17.5 g/dL [facility] Hct 43.2 38.9 - 50.3 % [facility] Plt 252 150 - 400 K/cumm [facility] MPV 10.1 9.1 - 12.3 fL [facility] RBC 4.53 4.30 - 5.80 M/cumm [facility] MCV 95.4 81.3 - 96.4 fL [facility] MCH 29.8 27.1 - 33.3 pg [facility] MCHC 31.3(L) 32.3 - 35.7 g/dL [facility] RDW CV 15.9(H) 11.1 - 14.9 % [facility] RDW SD 56.1(H) 35.7 - 48.1 fL [facility] NRBC abs 0.00 0.00 - 0.01 K/cumm [facility] Blood 08/15/2024 12:4 8 PM BLOWER INSULATOR 08/15/2024 1:07 PM BLOWER INSULATOR us Wayne Davis MD LAB BLOOD ORDERABLES Fi nal Result [facility] [address] Department [place] [address] * (ABNORMAL) Basic metabolic panel (08/15/2024 12:48 PM BLOWER INSULATOR) Sodium 142 135 - 145 mmol/L Potassium, pl 5.4(H) 3.3 - 4.9 mmol/L [facility] Chloride 108 97 - 110 mmol/L [facility] CO2 19(L) 22 - 32 mmol/L [facility] Anion gap 15 2 - 15 mmol/L [facility] BUN 35(H) 6 - 25 mg/dL [facility] Creatinine 1.68(H) 0.80 - 1.30 mg/dL [facility] Glucose 111 70 - 199 mg/dL [facility] Comment: Interpretive Data Fasting glucose [...] 2022. Calcium 9.5 8.5 - 10.3 mg/dL RY [facility] Blood 08/15/2024 12:4 8 PM BLOWER INSULATOR 08/15/2024 1:07 PM BLOWER INSULATOR us Wayne Davis MD LAB BLOOD ORDERABLES Fi nal Result [facility] [address] Department [place] [address] * ECG 12 lead (07/19/2024 11:51 AM CDT) us Wayne Davis MD ECG ORDERABLES Final R esult * DEVICE CHECK - IN OFFICE (07/19/2024 11:23 AM CDT) Anatomical Region Laterality Modality Other Narrative 07/22/2024 2:43 PM CDT Table formatting from the original result was not included. PM CHECK (IN OFFICE) Patient ID: Drew Newman is a 84 y.o. male This patient received a [employer] Pacemaker. ??They had a routine in-office [...] to SOFI Episodes last 90 days/Comments: AF [place] 100 % No new ventricular events. NORMAL DEVICE FUNCTION PROGRAMMED MEDICATIONS: Anti-coagulant(s): ??Aspirin 81 mg, Xarelto 20 mg daily Anti-arrhythmic(s): ??Coreg 12.5 mg twice a day PLAN: 1) normal [employer] Pacemaker evaluation 2) [employer] remote transmission scheduled in 3 months. 3) Programming appropriate for device measurements Gisela Butler RN us Wayne Davis MD CV CARDIAC SERVICES PRO CEDURES Final Result * CT Abdomen Pelvis WO Contrast (09/14/2022 9:43 AM BLOWER INSULATOR) Anatomical Region Laterality Modality Body N/A Computed Tomogra phy 09/15/2022 10:0 0 AM BLOWER INSULATOR Narrative 09/15/2022 10:11 AM BLOWER INSULATOR EXAM DESCRIPTION: ?? CT ABDOMEN PELVIS WO [...] Findings Committee. J Am Walter Radiol. 2017 Aug;14(8):7802-8030. THIS IS AN ELECTRONICALLY VERIFIED FINAL REPORT 09/15/2022 10:11 AM - Electronically signed by ??Ko Haro M.D. AG: JAMES D: ??09/15/2022 10:11 AM T: ??09/15/2022 10:11 AM Report ID: [id number] Reading Location: ??[id number] Procedure Note Ko Haro MD - 09/15/2022 [...] Findings Committee. J Am Walter Radiol. 2017 May;14(8):6987-7664. THIS IS AN ELECTRONICALLY VERIFIED FINAL REPORT 09/15/2022 10:11 AM - Electronically signed by Ko Haro M.D. AG: JAMES Report ID: [id number] Reading Location: [place] [address] Elvin Carrillo NP IM CT PROCEDURES Final Result from Last 3 Months or Most Recently Relevant to Health Maintenance Insurance MEDICARE [facility] MEDICARE [facility] MEDICARE [facility] MEDICARE SUPPLEMENT Advance Directives For more information, please contact: [phone] Documents on File Type Date Recorded Patient Space Controller Expl anation ADVANCE DIRECTIVE 07/04/2017 Advance Di rective Checklist * Full Code (Latest Code Status on File) Date Activated Date Inactivated Comments 07/13/2021 3:49 PM 07/14/2021 2:07 PM Care Teams Regional Geodetic Advisor Relationship Specialty Start Date End Date Say Low MD [address] [place] [address] PCP - General 02/15/17
--- OUTSIDE RECORDS SUMMARY | 2024-09-22 19:02 | XMS_ITS | Encounter Summary ---
Author Organization [facility] Healthcare Address [address] [place] [address] Care Team Providers Care Criminalist Technician Name Role Phone Say Low MD Primary Care Provider [phone] Reason for Referral * Cardiology (Routine) - Closed Specialty Diagnoses / Procedures Referred By Yary silveira Referred To Contact Diagnoses Pacemaker Procedures DEVICE CHECK - IN OFFICE Wayne Davis MD [id number] [address] Phone: tel: fax: [facility] Referral ID Status Reason Start Date Expiration Date Visits Re quested Visits Authorized [id number] Closed 07/12/2024 08/11/2025 1 1 Encounter Details Date Type Department Care Team (Late st Contact Info) Description 07/19/2024 12:00 PM CDT Office Visit Arrhythmia Center [address] [facility] [address] [place] [phone] Wayne Davis MD [id number] [address] Cardiac arrhythmia, unspecified cardiac arrhythmia type (Primary Dx); Pacemaker; CHB (complete heart block) (CMS/HCC) (HCC); Typical atrial flutter (CMS/HCC) (HCC); NICM (nonischemic cardiomyopathy) (CMS/HCC) (HCC) Social History Tobacco Use Types [...] on file 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 Gender Identity Male 07/10/2021 8:31 AM CDT Sexual Orientation Straight 06/12/2021 8: 44 AM CDT documented as of this encounter Last Filed Vital Signs Vital Sign Reading Time Taken Comments Blood Pressure 114/62 07/19/2024 11:50 AM CDT Pulse 70 07/19/2024 11:50 AM CDT Temperature - - Respiratory Rate - - Oxygen Saturation - - Inhaled Oxygen Concentration - - Weight 101.6 kg (224 lb) 07/19/2024 11:50 AM CDT Height 172.7 cm (5' 8 ) 07/19/2024 11:50 AM CDT Body Mass Index 34.06 07/19/2024 11:50 AM CDT documented in this encounter Progress Notes * Wayne Davis MD - 07/19/2024 12:00 PM CDT Images from the original note were not included. [facility]ia Center [address] [place] [address], [address] [address] Patient Name: Drew Pak Date of : 1940 Primary Physician: Say Low MD This note was dictated with voice-recognition software, and trash hauler errors may be present. Subjective/Objective Patient ID: Drew Pak is a 84 y.o. male Chief Complaint No chief complaint on file. HPI Mr. Pak presented to the [facility] on 07/19/2024 for follow-up regarding his bradycardia and AV xavier disease. He is a 84 y.o. male with a history of coronary disease/status post coronary artery bypass graft surgery, normal LV function, diabetes, hypertension, and dyslipidemia. 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 In July 2017, he underwent placement of a dual-chamber pacemaker after developing symptomatic AV xavier disease. Recently, the patient was found to have declining LV function, with an EF estimated to be 45%. He has also developed persistent atrial fibrillation, rendered asymptomatic by way of his heart block. He has been treated with anticoagulation. His complaints include dyspnea with moderate exertion and fatigue. No chest discomfort or syncope. No palpitations. ... 12-lead ECG & Rhythm Strip: 07/19/2024: Atrial flutter with RV pacing (70) ECG HISTORY: 06/02/2017: Sinus rhythm with 2nd degree AV Block (65). QRS duration is 180 msec, featuring right bundle branch block/LAFB. Normal QT interval. No Known Allergies Current Outpatient Medications Medication Instructions allopurinoL (ZYLOPRIM) 300 mg tablet 0.5 tablets, oral, Daily, 150 mg daily ascorbic acid (VITAMIN C) 1,000 mg, oral, 2 times daily aspirin 81 mg, oral, Daily atorvastatin (LIPITOR) 5 mg, oral, Daily carvediloL (COREG) 12.5 mg, oral, 2 times daily with meals (bkfst, dinner) cholecalciferol (VITAMIN D-3) 2,000 Units, oral, 2 times daily folic acid (FOLVITE) 1 mg, oral, Daily furosemide (LASIX) 40 mg, oral, Every other day losartan (COZAAR) 100 mg omeprazole (PRILOSEC) 40 mg, oral, Daily potassium citrate ER (UROCIT-K) 10 mEq (1,080 mg) CR tablet 10 mEq, oral, Daily quercetin 500 mg capsule oral, 2 times daily spironolactone (ALDACTONE) 12.5 mg, oral, Daily SYNJARDY XR 5-1,000 mg tablet, IR & ER, biphasic 24hr 1,000 mg, oral, Every morning tamsulosin (FLOMAX) 0.4 mg vitamin b complex tablet 1 tablet, oral, Daily Xarelto 20 mg tablet TAKE 1 TABLET(20 MG) BY MOUTH DAILY Past Medical History: Past Medical History: Diagnosis Date Arthritis CHF (congestive heart failure) (CMS/HCC) (HCC) Chronic kidney disease Congestive heart failure (CHF) (CMS/HCC) (HCC) COPD (chronic obstructive pulmonary disease) (HCC) Diabetes mellitus (HCC) HX OTHER MEDICAL leg/ ankle surgery due to fall of a roof (2010) Hyperlipidemia Hypertension Kidney stone Urolithiasis Family History: Family History Problem Relation Age of Onset Alzheimer's disease Mother Alzheimer's disease; Stroke Mother Arthritis Mother Diabetes Mother Hypertension Mother Gout Mother Heart attack Other Family history of Myocardial infarction; Cause of : Family history of Myocardial infarction Heart attack Father Cancer Father Heart disease Father Hypertension Father Social History: Social History Tobacco Use Smoking status: Former Current packs/day: 0.00 Average packs/day: 3.0 packs/day for 22.6 years (67.7 ttl pk-yrs) Types: Cigarettes Start date: 1960 Quit date: 04/29/1983 Years since quittin.2 Smokeless tobacco: Never Substance and Sexual Activity Drug use: No Sexual activity: Defer Alcohol Use: Not At Risk (07/13/2021) AUDIT-C Frequency of Alcohol Consumption: Never Average Number of Drinks: Not on file Frequency of Binge Drinking: Not on file Review of Systems Constitutional: Negative. HENT: Negative. Eyes: Negative. Respiratory: Negative. Cardiovascular: As per HPI. Gastrointestinal: Negative. Endocrine: Negative. Genitourinary: Negative. Musculoskeletal: Negative. Skin: Negative. Allergic/Immunologic: Negative. Neurological: Negative. Hematological: Negative. Psychiatric/Behavioral: Negative. Physical Exam BP 114/62 Pulse 70 Ht 172.7 cm (5' 8 ) Wt 101.6 kg (224 lb) BMI 34.06 kg/m?? GENERAL: No distress. Pleasant and cooperative with the examination and interview HEENT: Pupils are equal and round. Oropharynx clear and moist. NECK: No JVD. Carotids are normal in volume, contour, and upstroke CARDIOVASCULAR: LV apical impulse nondisplaced. Rhythm is regular. No S3, S4, or murmur. DEVICE SITE: Well-healed, minimal tenderness PULMONARY: Clear to auscultation bilaterally, without wheeze. ABDOMEN: Soft, nontender, nondistended, normal bowel sounds. No rebound or guarding. EXTREMITIES: No edema. Pulses are 2+ and symmetric. NEURO: Alert and oriented x3. Cranial nerves II-XII intact and symmetric. No focal findings. PSYCHIATRIC: Normal mood and affect. Assessment/Plan Last Labs: Lab Results Component Value Date GLUCOSE 122 03/30/2024 CALCIUM 9.3 03/30/2024 SODIUM 139 03/30/2024 POTASSIUM 4.7 03/30/2024 CO2 26 03/30/2024 CHLORIDE 104 03/30/2024 BUNSER 48 (H) 03/30/2024 CREATININE 2.29 (H) 03/30/2024 No results found for: TSH Lab Results Component Value Date GFRNAA 28 (L) 03/30/2024 Diagnoses and all orders for this visit: Cardiac arrhythmia, unspecified cardiac arrhythmia type (Primary) - ECG 12 lead Pacemaker Assessment & Plan: Complete heart block, status post pacemaker. The [...] be low. We also discussed the specific benefitsof device placement. My office will make the appropriate arrangements. From: Keon GILLESPIE, Gabriel KK, Bernard C et al. 2022 HRS/APHRS/LAHRS guideline on cardiac physiologic pacing for the avoidance and mitigation of heart failure. Heart Rhythm 2022;20:e17-e91. Class I: In patients with a CIED with a decline in LV function or worsening of HF symptoms attributed to substantial ventricular pacing, STOCK WETTER with BiV pacing is recommended to improve LV function and improve HF symptoms. Orders: - DEVICE CHECK - IN OFFICE; Future CHB (complete heart block) (CMS/HCC) (HCC) Typical atrial flutter (CMS/HCC) (HCC) Assessment & Plan: Persistent atrial fibrillation, rendered asymptomatic by way [...] checks when necessary. The patient has a [id number] score of 4 (annualized risk of stroke 4%). I have therefore recommended continued anticoagulation for thromboprophylaxis. NICM (nonischemic cardiomyopathy) (CMS/HCC) (HCC) Wayne Davis MD 07/19/2024 documented in this encounter Miscellaneous Notes * Assessment & Plan Note - Wayne Davis MD - 07/19/2024 2:15 PM CDT Associated Problem(s): Typical atrial flutter (CMS/HCC) (HCC) Persistent atrial fibrillation, rendered asymptomatic by way [...] checks when necessary. The patient has a [id number] score of 4 (annualized risk of stroke 4%). I have therefore recommended continued anticoagulation for thromboprophylaxis. * Assessment & Plan Note - Wayne Davis MD - 07/19/2024 2:14 PM CDT Associated Problem(s): Pacemaker Complete heart block, status post pacemaker. The [...] be low. We also discussed the specific benefitsof device placement. My office will make the appropriate arrangements. From: Keon GILLESPIE, Gabriel KK, Bernard Francisco et al. 2022 HRS/APHRS/LAHRS guideline on cardiac physiologic pacing for the avoidance and mitigation of heart failure. Heart Rhythm 2022;20:e17-e91. Class I: In patients with a CIED with a decline in LV function or worsening of HF symptoms attributed to substantial ventricular pacing, STOCK WETTER with BiV pacing is recommended to improve LV function and improve HF symptoms. documented in this encounter Plan of Treatment Not on file documented as of this encounter Procedures Procedure Name Priority Date/Time Associated Diagnosis Comments ECG 12-LEAD Routine 07/19/2024 11:51 AM CDT Cardiac arrhythmia, unspecified cardiac arrhythmia type documented in this encounter Results * DEVICE CHECK - IN OFFICE (08/28/2024 11:01 AM INDUSTRIAL ANALYST) Anatomical Region Laterality Modality Other Narrative 09/01/2024 11:06 AM INDUSTRIAL ANALYST Table formatting from the original result was not included. BiV PACEMAKER CHECK (IN OFFICE) Patient ID: Drew Pak is a 84 y.o. male. This patient received a [place] scientific BiV Pacemaker. ??They had a routine [...] to SOFI Episodes last 90 days/Comments: AF [place] <1 %, longest duration 3 minutes and 35 seconds. ?? No new ventricular events. NORMAL DEVICE FUNCTION PROGRAMMED MEDICATIONS: Anti-coagulant(s): ??Aspirin 81 mg, Xarelto 20 mg daily Anti-arrhythmic(s): ??None PLAN: 1) normal [place] scientific BiV Pacemaker evaluation 2) wound and device check in 1 month. 3) Programming appropriate for device settings ?4) left subclavian incision well approximated with Dermabond intact. Minimal swelling at incision site. ??No evidence of drainage, infection, or bruising. ??Reviewed postop instructions and restrictions. Gisela Butler RN us Wayne Davis MD [facility] PRO CEDURES Final Result * ECG 12 lead (07/19/2024 11:51 AM CDT) us Wayne Davis MD ECG ORDERABLES Final R esult documented in this encounter Visit Diagnoses Diagnosis Cardiac arrhythmia, unspecified cardiac arrhythmia type- Primary Pacemaker Cardiac pacemaker in situ CHB (complete heart block) (CMS/HCC) (HCC) Atrioventricular block, complete Typical atrial flutter (CMS/HCC) (HCC) NICM (nonischemic cardiomyopathy) (CMS/HCC) (HCC) NICM (nonischemic cardiomyopathy) (CMS/HCC) (HCC)- Primary Pacemaker Cardiac pacemaker in situ documented in this encounter Care Teams Criminalist Technician Relationship Specialty Start Date End Date Say Low MD [address] [facility] [address] [place] [address] [place] [address] PCP - General 02/15/17 documented as of this encounter
--- OUTSIDE RECORDS SUMMARY | 2024-09-22 19:02 | XMS_ITS | Encounter Summary ---
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 I gave verbal instructions and mailed. documented in this encounter Plan of Treatment Not on file documented as of this encounter Visit Diagnoses Not on filedocumented in this encounter Care Teams Camouflage Specialist Relationship Specialty Start Date End Date Say Low MD [address] [facility] [address] [place] [address] PCP - General 02/15/17 documented as of this encounter
--- OUTSIDE RECORDS SUMMARY | 2024-09-22 19:03 | XMS_ITS | Encounter Summary ---
Author Organization [facility] Healthcare Address [address] [place] [address] Care Team Providers Care Supervisor Metal Hanging Name Role Phone Say Low MD Primary Care Provider [phone] Reason for Visit * Cardiology (Routine) - Closed Specialty Diagnoses / Procedures Referred By Yary silveira Referred To Contact Diagnoses Mobitz II Procedures DEVICE CHECK - REMOTE Wayne Davis MD [address] [address] Phone: tel: fax: 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 PM CHECK (REMOTE) Patient ID: Drew Pak is a 83 y.o. male This patient received a [employer] scientific Pacemaker. ??They had a routine remote transmission on 10/31/2023. 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 Interrogation of the patient's device demonstrates the following: Presenting EGM: ??AT/flutter V paced @ 70 bpm Original Device Settings Right Atrium Right Ventricle Sensitivity (mV) 0.5 mV 2.5 mV Pacing Outputs 1.5 V @ 0.4 ms 2.0 V @ 0.4 ms Testing Measurements Right Atrium Right Ventricle Sensitivity (mV) 4.7 mV Greater than 25 mV Impedence (Ohms) 474 ohms 480 ohms Pace Threshold Not done V @ ??ms 0.6 V @ 0.4 ms Pacing % 0 % 99 % Battery Status: ??9 months years to SOFI Episodes last 90 days/Comments: AF [place] 100 %, the patient is in permanent atrial fibrillation with ventricular rates 70-80 beats per minute. NORMAL DEVICE FUNCTION PROGRAMMED MEDICATIONS: Anti-coagulant(s): ??Xarelto 20 mg daily, aspirin 81 mg daily Anti-arrhythmic(s): ??Coreg 12.5 mg twice daily PLAN: 1) normal [employer] scientific Pacemaker evaluation 2) [employer] scientific remote transmission scheduled in 3 months. 3) Programming appropriate for device measurements Manuel M. Biermann, RN us Wayne Davis MD [facility] PRO CEDURES Final Result documented in this encounter Visit Diagnoses Diagnosis Pacemaker- Primary Cardiac pacemaker in situ Mobitz II Mobitz (type) II atrioventricular block documented in this encounter Care Teams Supervisor Metal Hanging Relationship Specialty Start Date End Date Say Low MD [address] [facility] [address] [place] [address] PCP - General 02/15/17 documented as of this encounter
--- OUTSIDE RECORDS SUMMARY | 2024-09-22 19:03 | XMS_ITS | Encounter Summary ---
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 Procedures Transthoracic Echo (TTE) Complete W Doppler/CF Jeremías Anne MD [address], [place] [address] Phone: tel: fax: [address] [place] [address] Referral ID Status Reason Start Date Expiration Date Visits Re quested Visits Authorized [id number] Closed 05/20/2023 06/18/2024 1 1 Reason for Visit * Hospital - Outpatient (Routine) - Closed Specialty Diagnoses / Procedures Referred By Contac t Referred To Contact Diagnoses 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 Procedures Transthoracic Echo (TTE) Complete W Doppler/CF Jeremías Anne MD [address] [place] [address] Phone: tel: fax: [address] [place] [address] Referral ID Status Reason Start Date Expiration Date Visits Re quested Visits Authorized [id number] Closed 05/20/2023 06/18/2024 1 1 Encounter Details Date Type Department Care Team (Latest Contact Info) Description 03/12/2024 10:47 AM CDT - 03/12/2024 11:59 PM CDT Hospital Encounter OP Cardiac Testing [address] [facility] [address] [place] [address] 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; Hx of CABG; 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 Discharge Disposition: Discharge to home or self [...] on file 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 Gender Identity Male 07/10/2021 8:31 AM CDT [...] by mouth 2 (two) times a day SYNJARDY XR 5-1,000 mg tablet, IR & [...] mg total) by mouth daily 02/13/2024 4 losartan (COZAAR) 100 mg tablet take 1 tablet by oral route every day 30 0 11/17/2015 4 rivaroxaban (Xarelto) 20 mg tabletIndications: Paroxysmal atrial fibrillation (CMS/HCC) (HCC) TAKE 1 TABLET(20 MG) BY MOUTH DAILY 90 tablet 3 07/01/2023 4 spironolactone (ALDACTONE) 25 mg tablet Take 1 tablet (25 mg total) by mouth daily 30 tablet 11 03/12/2024 4 documented as of this encounter Discharge Disposition Disposition Code Departure Means Destination Discharge to home or self care documented in this encounter Plan of Treatment Not on file documented as of this encounter Procedures Procedure Name Priority Date/Time Associated Diagnosis Comments TRANSTHORACIC ECHO (TTE) COMPLETE W DOPPLER/CF W CONTRAST Routine 03/12/2024 11:31 AM CDT 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 documented in this encounter Results * TRANSTHORACIC ECHO (TTE) COMPLETE W DOPPLER/CF W CONTRAST (03/12/2024 11:31 AM CDT) Anatomical Region Laterality Modality Ultrasound 03/12/2024 10:4 7 AM CDT Narrative 03/14/2024 4:42 PM CDT [facility] Card[facility] Testing [facility] [address] [place] [address] ECHOCARDIOGRAM Patient Name: DREW NEWMAN GENE : 1940 Study Date: 03/12/2024 10:47:43 AM Gender: M Tech: Ref Provider: JEREMÍAS ANNE Height(Cm): 175 BSA: 2.17 Weight(Kg): 97.1 ?BP: 130/68 Order Provider: JEREMÍAS ANNE PROCEDURES: Echocardiographic Report: Transthoracic Echocardiogram with 2D, M-Mode, Spectral and Color Flow Doppler examination and administration of intravenous contrast. INDICATIONS: Systolic heart failure. Measurements: 2D/M Mode ?Doppler Measurement ?Value ?Normal Range ? Measurement ? Value ?Normal Range IVSd 2D ?1.26 ? [ 0.60 - 1.00 ] cm ? AV Peak Rommel ? 2.0 ?[ 1.0 - 1.7 ] m/s LVIDd 2D ? 6.34 ? [ 4.20 - 5.80 ] cm ? AV Peak PG ?16 ? mmHg LVIDs 2D ? 4.94 ? [ 2.50 - 4.00 ] cm ? AV Mean PG ?10 ? mmHg LVPWd 2D ? 1.19 ? [ 0.60 - 1.00 ] cm ? AV VTI ?39.0 ? cm EF Biplane ? 47.00 ?[ 52.00 - 72.00 ] % ?YONY V max ? 1.3 ?cm2 LA Dimen 2D ?5.40 ? [ 3.00 - 4.00 ] cm ? YONY VTI ? 1.3 ?cm2 AR Diam 2D ? 3.80 ? cm ? LVOT Peak Rommel ? 0.91 ? [ 0.70 - 1.10 ] m/s LA Volume Index ?52.35 ?[ 16.00 - 34.00 ] ml/m2 ?LVOT Diam ? 1.9 ?cm TAPSE ?1.10 ? [ >= 1.71 ] cm ? LVOT Peak PG ?3 ?mmHg LVOT VTI ? 17.7 ? cm MV Peak PG ? 4 ?mmHg MV Mean PG ? 2 ?mmHg MV E Peak Rommel ?1.0 ?[ 0.6 - 1.3 ] m/s MV A Peak Rommel ?0.3 ?[ 1.0 - 1.2 ] m/s MV PHT ? 65.9 ? [ 20.0 - 100.0 ] ms MV Decel Time ?144.9 ?[ 104.0 - 258.0 ] ms MVA PHT ?3.3 ?ms MV E/A Ratio ? 3.3 TR Peak Rommel ?3.8 ?[ 1.0 - 2.8 ] m/s TR Peak PG ? 57 ? mmHg RVSP ? 71.7 ? [ 10.0 - 36.0 ] mmHg RA Pressure ?15.0 ? mmHg PV Peak PG ? 3 ?mmHg Lat E` Rommel ? 0.13 ? [ 0.10 - 0.15 ] m/s Sept E' Rommel ?0.06 ? [ 0.08 - 0.15 ] m/s E/E` ? 7.69 RV S' ?0.07 ? m/s Measurement ?Value ?Normal Range ? Measurement ? Value ?Normal Range 2D/M Mode ?Doppler - FINDINGS: Study Quality: Technically difficult study. Contrast was employed for LV opacification and endocardial border enhancement. BP: Blood pressure: 130/68 mmHg. Left Ventricle: Moderate left ventricular systolic dysfunction. There is global hypokinesis. Ejection Fraction is estimated at 40 %. Diastolic indices overall most consistent with Grade III-IV diastolic dysfunction (severely elevated filling pressures and significantly elevated myocardial stiffness). Mild enlargement of left ventricle. LVIDd 6.3 cm. Paradoxical septal motion consistent with IVCD or bundle branch block. Mild concentric left ventricular hypertrophy. Right Ventricle: Mild to moderate right ventricular dysfunction. Mild enlargement of right ventricle. Left Atrium: There is severe enlargement of the left atrium. Right Atrium: There is moderate enlargement of the right atrium. Atrial Septum: Normal appearing atrial septum. Cannot exclude PFO by atrial septal color Doppler interrogation. Mitral Valve: Mild mitral valve regurgitation. The posterior leaflet has a marked decrease in mobility. Moderate mitral annular calcification. Aortic Valve: Grossly normal appearing aortic valve. Aortic valve appears tricuspid in configuration. Moderate aortic stenosis. Tricuspid Valve: Normal appearance of the tricuspid leaflets. Trace tricuspid regurgitation. Pulmonic Valve: Pulmonic valve not well visualized. There is no pulmonic stenosis. Pericardium: No significant pericardial effusion. Aortic Root and Aorta: The sinuses of Valsalva are normal. Mild ascending aortic enlargement 4.4 cm. Aortic Arch: Normal caliber aortic arch. IVC: Dilated inferior vena cava with poor inspiratory collapse consistent with elevated right atrial pressure. CONCLUSIONS: 1. Moderate left ventricular systolic dysfunction. There is global hypokinesis. Ejection Fraction is estimated at 40 %. Diastolic indices overall most consistent with Grade III-IV diastolic dysfunction (severely elevated filling pressures and significantly elevated myocardial stiffness). Mild enlargement of left ventricle. LVIDd 6.3 cm. Paradoxical septal motion consistent with IVCD or bundle branch block. Mild concentric left ventricular hypertrophy. 2. Mild to moderate right ventricular dysfunction. Mild enlargement of right ventricle. 3. There is severe enlargement of the left atrium. 4. There is moderate enlargement of the right atrium. 5. Mild mitral valve regurgitation. The posterior leaflet has a marked decrease in mobility. Moderate mitral annular calcification. 6. Grossly normal appearing aortic valve. Aortic valve appears tricuspid in configuration. Moderate aortic stenosis. 7. Normal appearance of the tricuspid leaflets. Trace tricuspid regurgitation. 8. Pulmonic valve not well visualized. There is no pulmonic stenosis. 9. The sinuses of Valsalva are normal. Mild ascending aortic enlargement 4.4 cm. 10. Normal caliber aortic arch. 11. Dilated inferior vena cava with poor inspiratory collapse consistent with elevated right atrial pressure. Electronically Signed By: Jeremías Anne MD [facility] 2024-03-14 16:42:07 CDT Procedure Note Jeremías Anne MD - 03/14/2024 [facility] Testing [facility] [address] [place] [address] ECHOCARDIOGRAM Patient Name: DREW NEWMAN GENE : 1940 Study Date: 03/12/2024 10:47:43 AM Gender: M Tech: Ref Provider: JEREMÍAS ANNE Height(Cm): 175 BSA: 2.17 Weight(Kg): 97.1 BP: 130/68 Order Provider: JEREMÍAS ANNE PROCEDURES: Echocardiographic Report: Transthoracic Echocardiogram with 2D, M-Mode, Spectral and Color FlowDoppler examination and administration of intravenous contrast. INDICATIONS: Systolic heart failure. Measurements: 2D/M ModeDoppler Measurement Value Normal Range MeasurementValue Normal Range IVSd 2D 1.26 [ 0.60 - 1.00 ] cm AV Peak Vel2.0 [ 1.0 - 1.7 ] m/s LVIDd 2D 6.34 [ 4.20 - 5.80 ] cm AV Peak PG16 mmHg LVIDs 2D 4.94 [ 2.50 - 4.00 ] cm AV Mean PG10 mmHg LVPWd 2D 1.19 [ 0.60 - 1.00 ] cm AV VTI39.0 cm EF Biplane 47.00 [ 52.00 - 72.00 ] % YONY V max1.3 cm2 LA Dimen 2D 5.40 [ 3.00 - 4.00 ] cm YONY VTI1.3 cm2 AR Diam 2D 3.80 cm LVOT PeakVel 0.91 [ 0.70 - 1.10 ] m/s LA Volume Index 52.35 [ 16.00 - 34.00 ] ml/m2 LVOT Diam1.9 cm TAPSE 1.10 [ >= 1.71 ] cm LVOT PeakPG 3 mmHg LVOT VTI 17.7 cm MV Peak PG 4 mmHg MV Mean PG 2 mmHg MV E Peak Rommel 1.0 [ 0.6 - 1.3 ] m/s MV A Peak Rommel 0.3 [ 1.0 - 1.2 ] m/s MV PHT 65.9 [ 20.0 - 100.0 ] ms MV Decel Time 144.9 [ 104.0 - 258.0 ] ms MVA PHT 3.3 ms MV E/A Ratio 3.3 TR Peak Rommel 3.8 [ 1.0 - 2.8 ] m/s TR Peak PG 57 mmHg RVSP 71.7 [ 10.0 - 36.0 ] mmHg RA Pressure 15.0 mmHg PV Peak PG 3 mmHg Lat E` Rommel 0.13 [ 0.10 - 0.15 ] m/s Sept E' Rommel 0.06 [ 0.08 - 0.15 ] m/s E/E` 7.69 RV S' 0.07 m/s Measurement Value Normal Range MeasurementValue Normal Range 2D/M ModeDoppler - FINDINGS: Study Quality: Technically difficult study. Contrast was employed for LV opacificationand endocardial border enhancement. BP: Blood pressure: 130/68 mmHg. Left Ventricle: Moderate left ventricular systolic dysfunction. There is globalhypokinesis. Ejection Fraction is estimated at 40 %. Diastolic indices overall most consistentwith Grade III-IV diastolic dysfunction (severely elevated filling pressures andsignificantly elevated myocardial stiffness). Mild enlargement of left ventricle. LVIDd6.3 cm. Paradoxical septal motion consistent with IVCD or bundle branch block.Mild concentric left ventricular hypertrophy. Right Ventricle: Mild to moderate right ventricular dysfunction. Mild enlargement of rightventricle. Left Atrium: There is severe enlargement of the left atrium. Right Atrium: There is moderate enlargement of the right atrium. Atrial Septum: Normal appearing atrial septum. Cannot exclude PFO by atrial septal colorDoppler interrogation. Mitral Valve: Mild mitral valve regurgitation. The posterior leaflet has a markeddecrease in mobility. Moderate mitral annular calcification. Aortic Valve: Grossly normal appearing aortic valve. Aortic valve appears tricuspid inconfiguration. Moderate aortic stenosis. Tricuspid Valve: Normal appearance of the tricuspid leaflets. Trace tricuspidregurgitation. Pulmonic Valve: Pulmonic valve not well visualized. There is no pulmonic stenosis. Pericardium: No significant pericardial effusion. Aortic Root and Aorta: The sinuses of Valsalva are normal. Mild ascending aortic enlargement 4.4cm. Aortic Arch: Normal caliber aortic arch. IVC: Dilated inferior vena cava with poor inspiratory collapse consistent withelevated right atrial pressure. CONCLUSIONS: 1. Moderate left ventricular systolic dysfunction. There is globalhypokinesis. Ejection Fraction is estimated at 40 %. Diastolic indices overall most consistentwith Grade III-IV diastolic dysfunction (severely elevated filling pressures andsignificantly elevated myocardial stiffness). Mild enlargement of left ventricle. LVIDd6.3 cm. Paradoxical septal motion consistent with IVCD or bundle branch block.Mild concentric left ventricular hypertrophy. 2. Mild to moderate right ventricular dysfunction. Mild enlargement ofright ventricle. 3. There is severe enlargement of the left atrium. 4. There is moderate enlargement of the right atrium. 5. Mild mitral valve regurgitation. The posterior leaflet has a markeddecrease in mobility. Moderate mitral annular calcification. 6. Grossly normal appearing aortic valve. Aortic valve appears tricuspidin configuration. Moderate aortic stenosis. 7. Normal appearance of the tricuspid leaflets. Trace tricuspidregurgitation. 8. Pulmonic valve not well visualized. There is no pulmonic stenosis. 9. The sinuses of Valsalva are normal. Mild ascending aortic enlargement4.4 cm. 10. Normal caliber aortic arch. 11. Dilated inferior vena cava with poor inspiratory collapse consistentwith elevated right atrial pressure. 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 documented in this encounter Administered Medications Inactive Administered Medications - up to 3 most recent administrations Medication Order MAR Action Action Date Dose Rate Site perflutren protein-a (OPTISON) 3 mL in sodium chloride 0.9% 8 mL syringe 1-8 mL, intravenous, Once in imaging, contrast, Starting on 03/12/24 at 1119, For 1 dose, Intra-Procedure (CV) Contrast Given 03/12/2024 11:31 AM CDT 2 mL documented in this encounter Orders Medications Ordered That Addy ht Not Have Been Administered Count Last Ordered Date First Ordered Date perflutren protein-a (OPTISO N) 3 mL in sodium chloride 0.9% 8 mL syringe 1 03/12/2024 documented in this encounter Care Teams Software Development Intern Relationship Specialty Start Date End Date Say Low MD [address] [place] [address] PCP - General 02/15/17 documented as of this encounter
--- OUTSIDE RECORDS SUMMARY | 2024-09-22 19:03 | XMS_ITS | Encounter Summary ---
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 He states his shortness of breath is exertional and was out in heat. He would like to take daily for next 3 days instead of BID instead of what he was doing every other day. He will take it easy until appt on Tuesday * Telephone Encounter - Kimmy Kaiser - 03/05/2024 3:35 PM CDT Patient called and informed of recommendations. Verbally understood. Will call me on with update. * Telephone Encounter - Shiva Anne MD - 03/05/2024 3:32 PM CDT Understood would increase furosemide to 40 mg twice a day for the next 3 days Call on with update Continue appointment in echo on the for now If rest shortness of breath ER visit * Telephone Encounter - Kimmy Kaiser - 03/05/2024 3:25 PM CDT Pt called bp 134/69 P70. Takes Furosemide 40mg every other day. Patient states his shortness of breath is exertional and when he wakes up. More so exertional * Telephone Encounter - Shiva Anne MD - 03/05/2024 2:54 PM CDT Does he have vitals to report? We could potentially increase his diuretics until his echo, if his symptoms are vitals are bad enough he may need ER evaluation. Does he have anymore information to provide? Is he short of breath only with exertion or as he short of breath at rest as well? Be short of breath at rest he should go to the ER. If it is only with exertion, can increase furosemide to 40 mg twice a day until his echo At if at any time shortness of breath is present at rest this would require more intensive treatment in the hospital * Telephone Encounter - Kimmy Kaiser - 03/05/2024 2:21 PM CDT Pt called to report he is having increased shortness of breath on exertion. (Gasping for air). Has ov echo and device check planned for 03/12/24 documented in this encounter Plan of Treatment Not on file documented as of this encounter Visit Diagnoses Not on filedocumented in this encounter Care Teams Performance Makeup Artist Relationship Specialty Start Date End Date Say Low MD [address] [facility] [address] [facility] [address] [place] [address] PCP - General 02/15/17 documented as of this encounter
--- OUTSIDE RECORDS SUMMARY | 2024-09-22 19:03 | XMS_ITS | Encounter Summary ---
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 * Cardiology (Routine) - Closed Specialty Diagnoses / Procedures Referred By Yary silveira Referred To Contact Diagnoses Randall II Procedures DEVICE CHECK - REMOTE Wayne Davis MD [address] [address] Phone: tel: fax: Referral ID Status Reason Start Date Expiration Date Visits Re quested Visits Authorized [id number] Closed 10/31/2023 04/30/2025 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 male This patient received a [employer] scientific Pacemaker. ??They had a routine remote [...] ??to SOFI Episodes last 90 days/Comments: AF Falkner 100 % There were no new ventricular events noted on today's remote interrogation. NORMAL DEVICE FUNCTION PROGRAMMED MEDICATIONS: Anti-coagulant(s): ??Aspirin 81 mg, Xarelto 20 mg Anti-arrhythmic(s): ??Coreg 12.5 mg twice daily PLAN: 1) normal [employer] Pacemaker evaluation 2) [employer] remote transmission scheduled in 3 months. 3) Programming appropriate for device measurements Bhavani White RN us Wayne Davis MD [facility] CARDIAC SERVICES PRO CEDURES Final Result * DEVICE CHECK - REMOTE (01/30/2024 12:19 PM CDT) Anatomical Region Laterality Modality Other Narrative 02/03/2024 1:07 PM CDT Table formatting from the original result was not included. PM CHECK (REMOTE) Patient ID: Drew Pak is a 83 y.o. male This patient received a ??[employer] scientific Pacemaker. ??They had a routine remote transmission on 01/30/2024. 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 Interrogation of the patient's device demonstrates the following: Presenting EGM: ?? AFib V paced @ 70 bpm Original Device Settings Right Atrium Right Ventricle Sensitivity (mV) ??0.5 mV ??2.5 mV Pacing Outputs ??1.5 V @ ??0.4 ms ??2.0 V @ ??0.4 ms Testing Measurements Right Atrium Right Ventricle Sensitivity (mV) ??4.0 mV ??Greater than 25 mV Impedence (Ohms) 458 ohms 436 ohms Pace Threshold ??Not done V @ ??ms ??0.6 V @ ??0.4 ms Pacing % 0 % 99 % Battery Status: ?? 7 months to SOFI Episodes last 90 days/Comments: AF Falkner 100 %, ??the patient is in permanent atrial fibrillation with controlled ventricular response rates. NORMAL DEVICE FUNCTION PROGRAMMED MEDICATIONS: Anti-coagulant(s): ??Xarelto 20 mg daily, aspirin 81 mg daily Anti-arrhythmic(s): ??Coreg 12.5 mg twice daily PLAN: 1) ??normal [employer] scientific Pacemaker evaluation 2) ??[employer] remote transmission scheduled in 3 months. 3) Programming appropriate for device measurements Manuel Sullivan, RN us Wayne Davis MD CV CARDIAC SERVICES PRO CEDURES Final Result documented in this encounter Visit Diagnoses Diagnosis Mobitz II- Primary Mobitz (type) II atrioventricular block Pacemaker- Primary Cardiac pacemaker in situ Mobitz II Mobitz (type) II atrioventricular block Pacemaker- Primary Cardiac pacemaker in situ Mobitz II Mobitz (type) II atrioventricular block documented in this encounter Care Teams Brush Washer Relationship Specialty Start Date End Date Say Low MD [address] [facility] [address] [place] [address] PCP - General 02/15/17 documented as of this encounter
--- OUTSIDE RECORDS SUMMARY | 2024-09-22 19:03 | XMS_ITS | Encounter Summary ---
Author Organization [facility] Healthcare Address [address] [place] [address] Care Team Providers Care Inter Com Servicer Name Role Phone Say Low MD Primary Care Provider [phone] Reason for Visit * Cardiology (Routine) - Closed Specialty Diagnoses / Procedures Referred By Yary silveira Referred To Contact Diagnoses Mobitz II Procedures DEVICE CHECK - REMOTE Wayne Davis MD [address] [facility] [address], [place] [address] Phone: tel: fax: [facility] Referral ID Status Reason Start Date Expiration Date Visits Re quested Visits Authorized [id number] Closed 07/19/2022 01/18/2024 1 1 Encounter Details Date Type Department Care Team (Latest Contact Info) Description 07/25/2023 8:15 AM CDT Ancillary Procedure Arrhythmia Center [address] [facility] [address], [place] [phone] Pacemaker (Primary Dx); Mobitz II Social History [...] Frequency of Binge Drinking Not on file 10/1 10/2020 Sex and Gender Information Value Date Recorded Sex Assigned at Not on file 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 PM CHECK (REMOTE) Patient ID: Drew Pak is a 83 y.o. male This patient received a [place] scientific Pacemaker. ??They had a routine remote transmission on 07/25/2023. Device implant indications: ??Mobitz type 2 ?? Interrogation of the patient's device demonstrates the following: Presenting EGM: ??AFib V paced @ 70 bpm Original Device Settings Right Atrium Right Ventricle Sensitivity (mV) 0.5 mV 2.5 mV Pacing Outputs 1.5 V @ 0.4 ms 2.0 V @ 0.4 ms Testing Measurements Right Atrium Right Ventricle Sensitivity (mV) 4.5 mV Paced mV Impedence (Ohms) 476 ohms 479 ohms Pace Threshold Not done V @ ms 0.6 V @ 0.4 ms Pacing % 0 % 98 % Battery Status: ??11 months to SOFI Episodes last 90 days/Comments: AF [place] 100 % There were no new ventricular events noted on today's remote interrogation. NORMAL DEVICE FUNCTION PROGRAMMED MEDICATIONS: Anti-coagulant(s): ??Aspirin 81 mg, Xarelto 20 mg daily Anti-arrhythmic(s): ??Coreg 12.5 mg twice daily PLAN: 1) normal [place] scientific Pacemaker evaluation 2) [place] scientific remote transmission scheduled in 3 months. 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
--- OUTSIDE RECORDS SUMMARY | 2024-09-22 19:03 | XMS_ITS | Encounter Summary ---
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 Patient did call me back and is scheduled for 03/12/24. I gave him verbal instructions and mailed with appointment reminder. documented in this encounter Plan of Treatment Not on file documented as of this encounter Visit Diagnoses Not on filedocumented in this encounter Care Teams Greeter Relationship Specialty Start Date End Date Say Low MD [address] [facility] [address] [facility] [address] [place] [address] PCP - General 02/15/17 documented as of this encounter
--- OUTSIDE RECORDS SUMMARY | 2024-09-22 19:03 | XMS_ITS | Encounter Summary ---
Author Organization [facility] Healthcare Address [address] [place] [address] Care Team Providers Care Barytes Grinder Name Role Phone Say Low MD Primary Care Provider [phone] Reason for Visit * Cardiology (Routine) - Closed Specialty Diagnoses / Procedures Referred By Yary silveira Referred To Contact Diagnoses Mobitz II Procedures DEVICE CHECK - REMOTE Wayne Davis MD [address] [address] Phone: tel: fax: Referral ID Status Reason Start Date Expiration Date Visits Re quested Visits Authorized [id number] Closed 10/31/2023 04/30/2025 1 1 Encounter Details Date Type Department Care Team (Latest Contact Info) Description 01/30/2024 2:30 PM CDT Ancillary Procedure Arrhythmia Center [address] [facility] [address] [place] [phone] Pacemaker (Primary Dx); Mobitz II Social History [...] on file 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 PM CHECK (REMOTE) Patient ID: Drew Pak is a 83 y.o. male This patient received a ??[place] scientific Pacemaker. ??They had a routine remote [...] to SOFI Episodes last 90 days/Comments: AF [place] 100 %, ??the patient is in permanent atrial fibrillation with controlled ventricular response rates. NORMAL DEVICE FUNCTION PROGRAMMED MEDICATIONS: Anti-coagulant(s): ??Xarelto 20 mg daily, aspirin 81 mg daily Anti-arrhythmic(s): ??Coreg 12.5 mg twice daily PLAN: 1) ??normal [place] scientific Pacemaker evaluation 2) ??[place] scientific remote transmission scheduled in 3 months. 3) Programming appropriate for device measurements Manuel Sullivan, RN us Wayne Davis MD [facility] PRO CEDURES Final Result documented in this encounter Visit Diagnoses Diagnosis Pacemaker- Primary Cardiac pacemaker in situ Mobitz II Mobitz (type) II atrioventricular block documented in this encounter Care Teams Barytes Grinder Relationship Specialty Start Date End Date Say Low MD [address] [facility] [address] [facility] [address] [place] [address] PCP - General 02/15/17 documented as of this encounter
--- OUTSIDE RECORDS SUMMARY | 2024-09-22 19:03 | XMS_ITS | Encounter Summary ---
Author Organization [facility] Address [address] [place] [address] Care Team Providers Care Pump Oiler Name Role Phone Say Low MD Primary Care Provider [phone] Reason for Visit * Cardiology (Routine) - Closed Specialty Diagnoses / Procedures Referred By Yary silveira Referred To Contact Diagnoses Pacemaker Procedures DEVICE CHECK - IN OFFICE Wayne Davis MD [address] [facility] [address] [place] [address] Phone: tel: fax: [facility] Referral ID Status Reason Start Date Expiration Date Visits Re quested Visits Authorized [id number] Closed 05/20/2023 06/18/2024 1 1 Encounter Details Date Type Department Care Team (Latest Contact Info) Description 05/20/2023 1:00 PM CDT Ancillary Procedure Arrhythmia Center [address] [facility] [address] [place] [address] First degree AV block (Primary Dx); Pacemaker; Mobitz II Social History Tobacco Use Types [...] on file 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 PM CHECK (IN OFFICE) Patient ID: Drew Pak is a 83 y.o. male This patient received a [place] scientific Pacemaker. ??They had a routine in-office device interrogation on 05/20/23 Device implant indications: ??Mobitz type II ?? Interrogation of the patient's device demonstrates the following: Presenting EGM: ??AFib V paced @ 70 bpm Underlying rhythm: ??AFib paced at 50 Original Device Settings Right Atrium Right Ventricle Sensitivity (mV) 0.5 mV 2.5 mV Pacing Outputs 1.5 V @ 0.4 ms 2.0 V @ 0.4 ms Testing Measurements Right Atrium Right Ventricle Sensitivity (mV) 4.8 mV Paced mV Impedence (Ohms) 475 ohms 436 ohms Pace Threshold Not done V @ ??ms 0.5 V @ 0.4 ms Pacing % <1 % 80 % Battery Status: ??1 years to SOFI Episodes last 90 days/Comments: AF [place] 100 %. There were no new ventricular events noted on today's in office device interrogation. NORMAL DEVICE FUNCTION PROGRAMMED MEDICATIONS: Anti-coagulant(s): ??Xarelto 20 mg daily Anti-arrhythmic(s): ??Coreg 12.5 mg twice daily PLAN: 1) normal [place] scientific Pacemaker evaluation 2) [place] PowerInbox remote transmission scheduled in 3 months. 3) Programming appropriate for device measurements Gisela Butler, RN us Wayne Davis MD [facility] CARDIAC SERVICES PRO CEDURES Final Result documented in this encounter Visit Diagnoses Diagnosis First degree AV block- Primary First degree atrioventricular block Pacemaker Cardiac pacemaker in situ Mobitz II Mobitz (type) II atrioventricular block documented in this encounter Care Teams Pump Oiler Relationship Specialty Start Date End Date Say Low MD [address] [facility] [address] [facility] [address] [place] [address] PCP - General 02/15/17 documented as of this encounter
--- OUTSIDE RECORDS SUMMARY | 2024-09-22 19:03 | XMS_ITS | Encounter Summary ---
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); 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; Hx of CABG; 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; Paroxysmal atrial fibrillation (CMS/HCC) (HCC); Pacemaker; Coronary artery disease involving coronary bypass graft of [place] heart with angina pectoris (CMS/HCC) (HCC); History of percutaneous coronary intervention; Essential hypertension Social History Tobacco Use Types Packs/Day Years [...] on file 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 Gender Identity Male 07/10/2021 8:31 AM CDT Sexual Orientation Straight 06/12/2021 8: 44 AM CDT documented as of this encounter Last Filed Vital Signs Vital Sign Reading Time Taken Comments Blood Pressure 147/78 03/12/2024 12:17 PM CDT Pulse 71 03/12/2024 12:17 PM CDT Temperature - - Respiratory Rate - - Oxygen Saturation - - Inhaled Oxygen Concentration - - Weight 104.9 kg (231 lb 3.2 oz) 024 12:17 PM CDT Height 172.7 cm (5' 8 ) 03/12/2024 12:1 7 PM CDT Body Mass Index 35.15 03/12/2024 12:17 PM CDT documented in this encounter Patient Instructions * Patient Instructions* Shiva Anne MD - 03/12/2024 11:45 AM CDT Continue taking the furosemide (water pill) 40mg ONCE a day Continue current doses of losartan 100mg daily and carvedilol 12.5mg TWICE a day START spironolactone (heart pill) 25mg ONCe day Please get blood work in about 7-10 days after starting the new meds at [place] documented in this encounter Ordered Prescriptions Prescription Sig Dispense Quantity Refills Last Filled Start Date End Date spironolactone (ALDACTONE) 25 mg tablet Take 1 tablet (25 mg total) by mouth daily 30 tablet 11 03/12/2024 03/22/2024 documented in this encounter Progress Notes * Shiva Anne MD - 03/12/2024 11:45 AM CDT Images from the original note were not included. [facility] Cardiology [address] [facility] [place], [place], [address] [address] [facility] [address], [place] [address] Cardiology Electrophysiology Niko Echevarria, MD Wayne Davis,, MD Arslan Alcala, MD Klever Bolton, MD Patrick Avalos, MD Isaac Byrd, MD Elgin Bowles, MD Elia Jett, MD Ambika Montes De Oca, BALANCE SHEET ANALYST Gilson Eden, MD Kasie Frye, BALANCE SHEET ANALYST Troy Shipley, MD Esther Miller, ORGANISATIONAL PSYCHOLOGIST Shiva Anne, MD Toshia Medley, ORGANISATIONAL PSYCHOLOGIST Xiomara Millan, ORGANISATIONAL PSYCHOLOGIST Elizabet Tyler, ORGANISATIONAL PSYCHOLOGIST Arslan Walsh, PA Patient Name: Drew Pak Provider: Shiva Anne MD : 1940 Date of Service: 03/12/2024 Referring: Maranda CHIEF COMPLAINT: Systolic Dysfunction without heart failure HISTORY OF PRESENT ILLNESS: 83 y.o. male here for follow up multiple cardiac issues Coronary artery disease with prior CABG, atrial fibrillation, Fluctuating EF, 53%, 35%, recent recovery to 50% which is around his prior baseline Chronic back pain with multiple surgeries over the years Pacemaker interrogation today shows persistent atrial fibrillation, rate controlled He overall is feeling well other than his back pain. 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 But does need an EGD for possible esophageal dilation later this month Interval History 03/12/24 - was hospitalized at [facility] this year (did not tell me) - Was told he was dehydrated, taken off diuretics has since put on a much of fluid and called me last week indicating he was having swelling and dyspnea on exertion - has lower extremity edema right greater than left his actually seeing wound care. - had echocardiogram performed prior to today's office visit would did show some worsening LV function down to 40% from 50% I reviewed this patient's Allergies and Current Medication List and updated as needed in the medical record. I reviewed this patient's Past Medical History, Social History, and Family History and updated as needed in the medical record. MEDICATIONS: Outpatient Encounter Medications as of 03/12/2024 Medication Sig Dispense Refill allopurinoL (ZYLOPRIM) 300 [...] 1 tablet (40 mg total) by mouth daily losartan (COZAAR) 100 mg tablet take 1 [...] MG) BY MOUTH DAILY 90 tablet 3 SYNJARDY XR 5-1,000 mg tablet, IR & [...] tablet Take 1 tablet by mouth daily [DISCONTINUED] atorvastatin (LIPITOR) 40 mg tablet TAKE 1 TABLET(40 MG) BY MOUTH DAILY 90 tablet 1 Facility-Administered Encounter Medications as of 03/12/2024 Medication Dose Route Frequency Provider Last Rate Last Admin [COMPLETED] perflutren protein-a (OPTISON) 3 mL in sodium chloride 0.9% 8 mL syringe 1-8 mL intravenous Once in imaging Shiva Anne MD 2 mL at 03/12/24 1131 sodium chloride 0.9% flush 0.5-20 mL 0.5-20 mL intra-catheter Q8H [facility] Patrick Taylor MD sodium chloride 0.9% flush 0.5-20 mL 0.5-20 mL intra-catheter PRN Patrick Taylor MD CARDIAC HISTORY & PROBLEM SUMMARY REVIEW OF SYSTEMS Pertinent review of systems negative unless otherwise stated in HPI above. PHYSICAL EXAM: BP 147/78 (BP Location: Left arm, Patient Position: Sitting) Pulse 71 Ht 172.7 cm (5' 8 ) Wt 104.9 kg (231 lb 3.2 oz) BMI 35.15 kg/m?? General: No apparent distress. Eyes: Sclerae anicteric. Neck: No obvious jugular venous distension seen. Respiratory: No respiratory distress,breathing comfortably no accessory muscle use Musculoskeletal: Grossly normal tone throughout. Neurologic: Grossly nonfocal. No dysarthria. Skin: No rashes seen. Psychiatric: Appropriate affect and interaction. MDM Problems Addressed: No diagnosis found. Data Reviewed: Reviewed [facility] and care everywhere for pertinent interval history. Reviewed interval labs: No results found for: LDLCALC , TRIG , HDL Lab Results Component Value Date SODIUM 140 07/14/2021 POTASSIUM 4.1 07/14/2021 CREATININE 1.13 07/14/2021 Lab Results Component Value Date HGB 11.1 (L) 07/14/2021 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 (Primary) - at baseline EF around 50%---> worsening shortness of breath EF around 40% today though even with contrast images somewhat suboptimal Currently on losartan 100 mg daily Furosemide 40 mg daily Carvedilol 12.5 mg b.i.d. Long discussion with him today regarding the above findings and worsening EF and decompensation Of which was certainly related to him being taken off diuretics Plan: - continue Coreg 12.5 b.i.d. 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 Despite careful review of this note, variances in spelling and vocabulary are possible and unintentional. 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) documented in this encounter Results * (ABNORMAL) Pro B-type natriuretic peptide (03/21/2024) SCRIBED NT PROBNP 1,860(A) 19.9 - 100 EXTERNAL LAB Blood 03/21/2024 Shiva Anne MD LAB BLOOD ORDERABLES Fi nal Result Performing Organization Address [facility] Co de Phone Number EXTERNAL LAB * (ABNORMAL) Basic metabolic panel (03/21/2024) SCRIBED Sodium 142 137 - 145 mmol/L EXTERNAL LAB SCRIBED Potassium 5.3(A) 3.4 - 5.0 mmol/L EXTERNAL LAB SCRIBED Chloride 108(A) 98 - 107 mmol/L EXTERNAL LAB SCRIBED Carbon Dioxide 27 22 - 30 mmol/L EXTERNAL LAB SCRIBED Anion Gap 7 4 - 12 mmol/L EXTERNAL LAB SCRIBED Urea Nitrogen (BUN) 36(A) 9 - 20 mg/dl EXTERNAL LAB SCRIBED Creatinine 2.00(A) 0.7 - 1.3 mg/dl EXTERNAL LAB SCRIBED Glucose 128(A) 65 - 110 mg/dl EXTERNAL LAB SCRIBED Calcium 9.1 8.4 - 10.2 mg/dl EXTERNAL LAB Blood 03/21/2024 Shiva Anne MD LAB BLOOD ORDERABLES Fi nal Result Performing Organization Address [facility] Co de Phone Number EXTERNAL LAB documented in this encounter Visit Diagnoses Diagnosis 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 Hx of CABG 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 Paroxysmal atrial fibrillation (CMS/HCC) (HCC) Atrial fibrillation Pacemaker Cardiac pacemaker in situ Coronary artery disease involving coronary bypass graft of [place] heart with angina pectoris (CMS/HCC) (HCC) History of percutaneous coronary intervention Essential hypertension Unspecified essential hypertension documented in this encounter Discontinued Medications Medication Sig Discontinue Reason Start Date End Da te atorvastatin (LIPITOR) 40 mg tablet TAKE 1 TABLET(40 MG) BY MOUTH DAILY 11/15/2023 03/12/2024 documented as of this encounter Historical Medications * This list may reflect changes made after this encounter. atorvastatin (LIPITOR) 10 mg tablet Take 0.5 tablets (5 mg total) by mouth daily 02/13/2024 05/15/2024 added in this encounter Care Teams Coat Operator Relationship Specialty Start Date End Date Say Low MD [address] [facility] [address] [facility] [address] [place] [address] PCP - General 02/15/17 documented as of this encounter
--- OUTSIDE RECORDS SUMMARY | 2024-09-22 19:04 | XMS_ITS | Encounter Summary ---
Author Organization [facility] Address [address] [place] [address] Care Team Providers Care Metal Refiner Name Role Phone Say Low MD Primary Care Provider [phone] Reason for Referral * Cardiology (Routine) - Closed Specialty Diagnoses / Procedures Referred By Contac t Referred To Contact Diagnoses Mobitz II Procedures DEVICE CHECK - REMOTE Wayne Davis MD [address] [place] [address] Phone: tel: fax: [facility] Referral ID Status Reason Start Date Expiration Date Visits Re quested Visits Authorized [id number] Closed 07/19/2022 01/18/2024 1 1 * Cardiology (Routine) - Closed Specialty Diagnoses / Procedures Referred By Contac t Referred To Contact Diagnoses Mobitz II Procedures DEVICE CHECK - REMOTE Wayne Davis MD [address] [address] Phone: tel: fax: [facility] Medical [facility] Referral ID Status Reason Start Date Expiration Date Visits Re quested Visits Authorized [id number] Closed 07/19/2022 01/18/2024 1 1 * Cardiology (Routine) - Closed Specialty Diagnoses / Procedures Referred By Contac t Referred To Contact Diagnoses Mobitz II Procedures DEVICE CHECK - REMOTE Wayne Davis MD [address] [place] [address] Phone: tel: fax: [facility] Referral ID Status Reason Start Date Expiration Date Visits Re quested Visits Authorized [id number] Closed 07/19/2022 01/18/2024 1 1 * Cardiology (Routine) - Closed Specialty Diagnoses / Procedures Referred By Contac t Referred To Contact Diagnoses Mobitz II Procedures DEVICE CHECK - REMOTE Wayne Davis MD [address] [place] [address] Phone: tel: fax: [facility] Referral ID Status Reason Start Date Expiration Date Visits Re quested Visits Authorized [id number] Closed 07/19/2022 01/18/2024 1 1 * Cardiology (Routine) - Closed Specialty Diagnoses / Procedures Referred By Contac t Referred To Contact Diagnoses Mobitz II Procedures DEVICE CHECK - REMOTE Wayne Davis MD [address] [place] [address] Phone: tel: fax: [facility] Referral ID Status Reason Start Date Expiration Date Visits Re quested Visits Authorized [id number] Closed 07/19/2022 01/18/2024 1 1 Encounter Details Date Type Department Care Team (Late st Contact Info) Description 07/19/2022 Orders Only [facility] [address] [address] Wayne Davis MD [address] [place] [address] Mobitz II (Primary Dx) Social History Tobacco [...] on file Legal 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 PM CHECK (REMOTE) Patient ID: Drew Pak is a 83 y.o. male This patient received a [place] scientific Pacemaker. ??They had a routine remote [...] to SOFI Episodes last 90 days/Comments: AF [facility] 100 %, the patient is in permanent atrial fibrillation with ventricular rates 70-80 beats per minute. NORMAL DEVICE FUNCTION PROGRAMMED MEDICATIONS: Anti-coagulant(s): ??Xarelto 20 mg daily, aspirin 81 mg daily Anti-arrhythmic(s): ??Coreg 12.5 mg twice daily PLAN: 1) normal [employer] Pacemaker evaluation 2) [employer] remote transmission scheduled in 3 months. 3) Programming appropriate for device measurements Manuel Sullivan RN Wayne Davis MD [facility] PRO CEDURES Final Result * DEVICE CHECK - REMOTE (07/25/2023 12:48 PM CDT) Anatomical Region Laterality Modality Other Narrative 08/02/2023 2:41 PM CDT Table formatting from the original result was not included. PM CHECK (REMOTE) Patient ID: Drew Pak is a 83 y.o. male This patient received a [place] scientific Pacemaker. ??They had a routine remote [...] to SOFI Episodes last 90 days/Comments: AF [facility] 100 % There were no new ventricular events noted on today's remote interrogation. NORMAL DEVICE FUNCTION PROGRAMMED MEDICATIONS: Anti-coagulant(s): ??Aspirin 81 mg, Xarelto 20 mg daily Anti-arrhythmic(s): ??Coreg 12.5 mg twice daily PLAN: 1) normal [employer] Pacemaker evaluation 2) [employer] remote transmission scheduled in 3 months. 3) Programming appropriate for device measurements Gisela Butler RN Wayne Davis MD CV C[facility] SERVICES PRO CEDURES Final Result * DEVICE CHECK - REMOTE (04/18/2023 12:43 PM CDT) Anatomical Region Laterality Modality Other Narrative 04/24/2023 1:07 PM CDT Table formatting from the original result was not included. PM CHECK (REMOTE) Patient ID: Drew Pak is a 82 y.o. male This patient received a [place] [employer] Pacemaker. ??They had a routine remote transmission on 04/18/2023. Device implant indications: ??Mobitz type 2 ?? Interrogation of the patient's device demonstrates the following: Presenting EGM: ??A flutter with RV pace @ 75 bpm Original Device Settings Right Atrium Right Ventricle Sensitivity (mV) 0.50 mV 2.5 mV Pacing Outputs 1.5 V @ 0.4 ms 2.0 V @ 0.40 ms Testing Measurements Right Atrium Right Ventricle Sensitivity (mV) 4.3 mV >25.0 mV Impedence (Ohms) 484 ohms 467 ohms Pace Threshold Not done V @ ??ms 0.6 V @ 0.4 ms Pacing % 0 % 80 % Battery Status: ??1.0 years to SOFI Episodes last 90 days/Comments: AF [facility] 100 % There were no new ventricular events noted on today's remote interrogation. NORMAL DEVICE FUNCTION PROGRAMMED MEDICATIONS: Anti-coagulant(s): ??Xarelto 20 mg Anti-arrhythmic(s): ??Coreg 12.5 mg twice daily PLAN: 1) normal [employer] Pacemaker evaluation 2) [employer] remote transmission scheduled in 3 months. 3) Programming appropriate for device measurements Bhavani White RN us Wayne Davis MD CV CARDIAC [facility] PRO CEDURES Final Result * DEVICE CHECK - REMOTE (01/17/2023 2:08 PM CDT) Anatomical Region Laterality Modality Other Narrative 01/23/2023 1:44 PM CDT Table formatting from the original result was not included. PM CHECK (REMOTE) Patient ID: Drew Pak is a 82 y.o. male This patient received a [place] scientific Pacemaker. ??They had a routine remote transmission on 01/17/2023. 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 Interrogation of the patient's device demonstrates the following: Presenting EGM: ??AFib V paced @ 7 0 bpm Original Device Settings Right Atrium Right Ventricle Sensitivity (mV) 0.5 mV 2.5 mV Pacing Outputs 1.5 V @ 0.4 ms 2.0 V @ 0.4 ms Testing Measurements Right Atrium Right Ventricle Sensitivity (mV) 4.6 mV 22.0 mV Impedence (Ohms) 452 ohms 450 ohms Pace Threshold Not done V @ ??ms 0.7 V @ 0.4 ms Pacing % 0 % 77 % Battery Status: ??1.5 years to SOFI Episodes last 90 days/Comments: AF [facility] 100 %, the patient has been in atrial fibrillation 100% of the time since at least August 2022. ??Ventricular rates ranged between 70 and 110 beats per minute. NORMAL DEVICE FUNCTION PROGRAMMED MEDICATIONS: Anti-coagulant(s): ??Xarelto 20 mg daily Anti-arrhythmic(s): ??Coreg 12.5 mg twice daily PLAN: 1) normal [employer] Pacemaker evaluation 2) [employer] remote transmission scheduled in 3 months. 3) Programming appropriate for device measurements Manuel Sullivan RN us Wayne Davis MD CV CARDIAC SERVICES PRO CEDURES Final Result * DEVICE CHECK - REMOTE (10/18/2022 2:06 PM SPEEDBOAT OPERATOR) Anatomical Region Laterality Modality Other Narrative 10/23/2022 1:41 PM SPEEDBOAT OPERATOR Table formatting from the original result was not included. PM CHECK (REMOTE) Patient ID: Drew Pak is a 82 y.o. male This patient received a [place] scientific Pacemaker. ??They had a routine remote transmission on 10/18/2022. 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 Interrogation of the patient's device demonstrates the following: Presenting EGM: ??AFib V paced @ 7 0 bpm Original Device Settings Right Atrium Right Ventricle Sensitivity (mV) 0.5 mV 2.5 mV Pacing Outputs 1.5 V @ 0.4 ms 2.0 V @ 0.4 ms Testing Measurements Right Atrium Right Ventricle Sensitivity (mV) 5.9 mV Greater than 25 mV Impedence (Ohms) 499 ohms 497 ohms Pace Threshold Not done V @ ??ms 0.6 V @ 0.4 ms Pacing % 0 % 74 % Battery Status: ??1.5 years to SOFI Episodes last 90 days/Comments: AF [facility] 100 %, the patient is in permanent atrial fibrillation.. ?? Ventricular rates ranged between the 70s to 110 beats per minute. NORMAL DEVICE FUNCTION PROGRAMMED MEDICATIONS: Anti-coagulant(s): ??Xarelto 20 mg daily Anti-arrhythmic(s): ??Coreg 12.5 mg twice daily PLAN: 1) normal [employer] Pacemaker evaluation 2) [employer] remote transmission scheduled in 3 months. 3) Programming appropriate for device measurements Manuel Sullivan, RN us Wayne Davis MD [facility] PRO CEDURES Final Result documented in this encounter Visit Diagnoses Diagnosis Mobitz II- Primary Mobitz (type) II atrioventricular block Mobitz II Mobitz (type) II atrioventricular block Pacemaker Cardiac pacemaker in situ Cardiac pacemaker in situ- Primary Mobitz II Mobitz (type) II atrioventricular block Pacemaker- Primary Cardiac pacemaker in situ Mobitz II Mobitz (type) II atrioventricular block Pacemaker- Primary Cardiac pacemaker in situ Mobitz II Mobitz (type) II atrioventricular block Pacemaker- Primary Cardiac pacemaker in situ Mobitz II Mobitz (type) II atrioventricular block documented in this encounter Care Teams Metal Refiner Relationship Specialty Start Date End Date Say Low MD [address] [facility] [address] [place] [address] PCP - General 02/15/17 documented as of this encounter
--- OUTSIDE RECORDS SUMMARY | 2024-09-22 19:04 | XMS_ITS | Encounter Summary ---
Author Organization [facility] Healthcare Address [address] [place] [address] Care Team Providers Care Catering Director Name Role Phone Say Low MD Primary Care Provider [phone] Reason for Referral * Diagnostic Imaging (Routine) - Closed Specialty Diagnoses / Procedures Referred By Yary t Referred To Contact Radiology Diagnoses Nephrolithiasis Procedures CT Abdomen Pelvis WO Contrast Elvin Carrillo NP [address] [place] [address] Phone: tel: fax: [address] [phone] Referral ID Status Reason Start Date Expiration Date Visits Re quested Visits Authorized [id number] Closed 09/07/2022 10/07/2023 1 1 RANCE RISK MANAGER Reason for Visit * Diagnostic Imaging (Routine) - Closed Specialty Diagnoses / Procedures Referred By Contsara t Referred To Contact Radiology Diagnoses Nephrolithiasis Procedures CT Abdomen Pelvis WO Contrast Elvin Carrillo NP [address] [place] [address] Phone: tel: fax: [address] [phone] Referral ID Status Reason Start Date Expiration Date Visits Re quested Visits Authorized [id number] Closed 09/07/2022 10/07/2023 1 1 Encounter Details Date Type Department Care Team (Latest Contact Info) Description 09/14/2022 9:30 AM INSURANCE RISK MANAGER - 09/14/2022 11:59 PM INSURANCE RISK MANAGER Hospital Encounter [address] [address] Nephrolithiasis Discharge Disposition: Discharge to home or self [...] on file Legal Sex Male 8:04 PM INSURANCE RISK MANAGER Gender Identity Male 07/10/2021 8:31 AM CDT Sexual Orientation Straight 06/12/2021 8: 44 AM CDT documented as of this encounter Medications at Time of Discharge allopurinoL (ZYLOPRIM) 300 mg tablet Take 0.5 tablets (150 mg total) by mouth daily 150 mg daily 12/15/2019 carvediloL (COREG) 12.5 mg tablet Take 1 tablet (12.5 mg total) by mouth 2 (two) times a day with meals cholecalciferol (VITAMIN D-3) 2,000 unit tablet Take 1 tablet (2,000 Units total) by mouth 2 (two) times a day furosemide (LASIX) 40 mg tablet Take 1 tablet (40 mg total) by mouth every other day omeprazole (PriLOSEC) 40 mg capsule Take 1 capsule (40 mg total) by mouth daily potassium citrate ER (UROCIT-K) 10 mEq (1,080 mg) CR tabletIndications: Nephrolithiasis Take 1 tablet (10 mEq total) by mouth daily 90 tablet 4 03/03/2021 SYNJARDY XR 5-1,000 mg tablet, IR & ER, biphasic 24hr Take 1,000 mg by mouth every morning 0 03/28/2018 tamsulosin (FLOMAX) 0.4 mg capsule,extended release 24hr take 1 capsule by oral route every day 1/2 hour following the same meal each day 0 0 09/10/2015 atorvastatin (LIPITOR) 40 mg tablet Take 1 tablet (40 mg total) by mouth daily 90 tablet 3 10/09/2021 3 losartan (COZAAR) 100 mg tablet take 1 tablet by oral route every day 30 0 11/17/2015 4 Xarelto 20 mg tabletIndications: Paroxysmal atrial fibrillation (CMS/HCC) (HCC) TAKE 1 TABLET(20 MG) BY MOUTH DAILY 30 tablet 11 03/12/2022 3 documented as of this encounter Discharge Disposition Disposition Code Departure Means Destination Discharge to home or self care documented in this encounter Plan of Treatment Not on file documented as of this encounter Procedures Procedure Name Priority Date/Time Associated Diagnosis Comments CT ABDOMEN PELVIS WO CONTRAST Schedule Routine, Read Routine (OP Routine) 09/14/2022 9:43 AM INSURANCE RISK MANAGER Nephrolithiasis documented in this encounter Results * CT Abdomen Pelvis WO Contrast (09/14/2022 9:43 AM INSURANCE RISK MANAGER) Anatomical Region Laterality Modality Body N/A Computed Tomogra phy 09/15/2022 10:0 0 AM INSURANCE RISK MANAGER Narrative 09/15/2022 10:11 AM INSURANCE RISK MANAGER EXAM DESCRIPTION: ?? CT ABDOMEN PELVIS WO [...] Findings Committee. J Am Walter Radiol. 2018 Feb;15(2):264-273. Management of Incidental Adrenal Masses: A White Paper of the ACR Incidental Findings Committee. J Am Walter Radiol. 2017 May;14(8):6783-9765. THIS IS AN ELECTRONICALLY VERIFIED FINAL REPORT 09/15/2022 10:11 AM - Electronically signed by ??Ko Haro M.D. AG: AG D: ??09/15/2022 10:11 AM T: ??09/15/2022 10:11 AM Report ID: [id number] Reading Location: ??[id number] Procedure Note Ko Haro MD - 09/15/2022 [...] Findings Committee. J Am Walter Radiol. 2017 May;14(8):7915-8706. THIS IS AN ELECTRONICALLY VERIFIED FINAL REPORT 09/15/2022 10:11 AM - Electronically signed by Ko Haro M.D. AG: JAMES Report ID: [id number] Reading Location: [place] [address] Elvin Carrillo NP IM CT PROCEDURES Final Result documented in this encounter Visit Diagnoses Diagnosis Nephrolithiasis Calculus of kidney documented in this encounter Care Teams Catering Director Relationship Specialty Start Date End Date Say Low MD [address] [place] [address] [facility] [facility] [place] [id number] PCP - General 02/15/17 documented as of this encounter
--- OUTSIDE RECORDS SUMMARY | 2024-09-22 19:04 | XMS_ITS | Encounter Summary ---
Author Organization [facility] Address [address] [place] [address] Care Team Providers Care Group Product Manager Name Role Phone Say Low MD Primary Care Provider Reason for Visit * Reason Onset Date Comments CT results. 11/02/2022 Encounter Details Date Type Department Care Team (Late st Contact Info) Description 11/02/2022 Telephone [facility] Medical [facility] Cardiology [address] [place] [address] Shiva Anne MD [address] [facility] [address] [place] [address] CT results. Social History Tobacco Use Types Packs/Day Years [...] on file Legal Sex Male 8:04 PM ASSESSOR Gender Identity Male 07/10/2021 8:31 AM CDT Sexual Orientation Straight 06/12/2021 8: 44 AM CDT documented as of this encounter Miscellaneous Notes * Telephone Encounter - Shiva Anne MD - 11/02/2022 8:11 PM ASSESSOR Received fax from chest CT Incidental finding of ascending aortic aneurysm Will continue to follow and discuss at follow-up office visits SSOR documented in this encounter Plan of Treatment Not on file documented as of this encounter Visit Diagnoses Not on filedocumented in this encounter Care Teams Group Product Manager Relationship Specialty Start Date End Date Say Low MD [address] [facility] [address] [facility] [facility] [place] [id number] PCP - General 02/15/17 documented as of this encounter
--- OUTSIDE RECORDS SUMMARY | 2024-09-22 19:04 | XMS_ITS | Encounter Summary ---
Author Organization [facility] Medical Group Address [address] [place] [address] Care Team Providers Care Dietetics Teacher Name Role Phone Say Low MD Primary Care Provider [phone] Reason for Visit * Reason Comments Systolic dysfunction without heart failu re Encounter Details Date Type Department Care Team (Latest Contact Info) Description 05/28/2022 11:00 AM CDT Office Visit [facility] Medical [facility] Cardiology [address] [place] [address] Shiva Anne MD [facility] [facility] [address] [place] [address] 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 (Primary Dx); 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 (CMS/HCC) (HCC); Hx of CABG; History of percutaneous coronary intervention; Paroxysmal atrial fibrillation (CMS/HCC) (HCC); Essential hypertension; Preoperative cardiovascular examination Social History Tobacco Use Types Packs/Day Years [...] on file 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 Gender Identity Male 07/10/2021 8:31 AM CDT Sexual Orientation Straight 06/12/2021 8: 44 AM CDT documented as of this encounter Last Filed Vital Signs Vital Sign Reading Time Taken Comments Blood Pressure 132/72 05/28/2022 11:02 AM CDT Pulse 76 05/28/2022 11:02 AM CDT Temperature - - Respiratory Rate - - Oxygen Saturation - - Inhaled Oxygen Concentration - - Weight 103.4 kg (228 lb) 05/28/2022 11:02 AM CDT Height 175.3 cm (5' 9 ) 05/28/2022 11:02 AM CDT Body Mass Index 33.67 05/28/2022 11:02 AM CDT documented in this encounter Progress Notes * Shiva Anne MD - 05/28/2022 11:00 AM CDT Images from the original note were not included. [facility] [place] [address] [place] [address], [address], [address] [place] [id number] Cardiology Electrophysiology Niko Echevarria, MD Wayne Davis,, MD Arslan Alcala, MD Miles Lenz, MD Patrick Avalos, MD Isaac Byrd, MD Quentin Manzo, DO Elgin Bowles, MD Esther Miller, ELIEZER Jett, MD Shanda Edge, MD Gilson Eden, MD Troy Shipley, MD Kale Faith, DO Shiva Anne, MD Kimmy Power, BEZEL CUTTER Toshia Medley, BEZEL CUTTER Xiomara Millan, BEZEL CUTTER Patient Name: Drew Pak Provider: Shiva Anne MD : 1940 Date of Service: 05/28/2022 Referring: Maranda CHIEF COMPLAINT: 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 male with CABG and valvular heart disease. Last visit I brought him in as we had been noticing increasing AFib on his pacemaker interrogation reports This started him on CVA prophylaxis last visit with Xarelto 20 mg daily Given this increased burden, repeated transthoracic echocardiogram to evaluate for any structural changes - echocardiogram showed worsening EF 53%--> 35%, fairly global hypokinesis - normal RV function - moderate aortic valve regurgitation Underwent repeat left heart catheterization after echocardiogram showed diminished function Underwent arthrectomy and PCI of proximal LAD with Dr. Shipley on 07/13/2021 Was placed on Plavix and Xarelto. Had subsequent recent hospitalization at [facility] COVID-19 pneumonia He missed his last follow-up appointment He is here today for post PCI follow-up Had repeat echocardiogram done today which shows again improvement in his EF to around 50% which was around his prior baseline. His biggest issue continues now to be ongoing back pain - he has had several back surgeries over the years Interval History Doing quite well from a cardiac perspective No chest pain No issues with volume overload or shortness of breath Only issues in our when to get back injections and get some teeth removed before they get infected Spent almost the entirety of the visit discussing strategies for short and long- term anticoagulation and dual antiplatelet therapy I reviewed this patient's Allergies and Current Medication List and updated as needed in the medical record. I reviewed this patient's Past Medical History, Social History, and Family History and updated as needed in the medical record. MEDICATIONS: Outpatient Encounter Medications as of 05/28/2022 Medication Sig Dispense Refill ??? allopurinoL (ZYLOPRIM) 300 mg tablet Take 0.5 tablets by mouth daily 150 mg daily ??? atorvastatin (LIPITOR) 40 mg tablet Take 1 tablet (40 mg total) by mouth daily 90 tablet 3 ??? carvediloL (COREG) 12.5 mg tablet Take 12.5 mg by mouth 2 (two) times a day with meals ??? cholecalciferol (VITAMIN D-3) 2,000 unit tablet Take 2,000 Units by mouth 2 (two) times a day. ??? clopidogreL (PLAVIX) 75 mg tablet Take 1 tablet (75 mg total) by mouth daily 90 tablet 3 ??? furosemide (LASIX) 40 mg tablet Take 40 mg by mouth daily ??? losartan (COZAAR) 100 mg tablet take 1 tablet by oral route every day (Patient taking differently: Take 100 mg by mouth nightly) 30 0 ??? omeprazole (PriLOSEC) 40 mg capsule Take 40 mg by mouth daily ??? potassium citrate ER (UROCIT-K) 10 mEq (1,080 mg) CR tablet Take 1 tablet (10 mEq total) by mouth daily 90 tablet 4 ? ? SYNJARDY XR 5-1,000 mg tablet, IR & ER, biphasic 24hr Take 1,000 mg by mouth every morning 0 ??? tamsulosin (FLOMAX) 0.4 mg capsule,extended release 24hr take 1 capsule by oral route every day1/2 hour following the same meal each day (Patient taking differently: Take 0.4 mg by mouth every morning) 0 0 ??? Xarelto 20 mg tablet TAKE 1 TABLET(20 MG) BY MOUTH DAILY 30 tablet 11 ??? [DISCONTINUED] carvediloL (COREG) 25 mg tablet Take 25 mg by mouth every 12 (twelve) hours ??? [DISCONTINUED] furosemide (LASIX) 40 mg tablet Take 80 mg by mouth daily ??? [DISCONTINUED] omega-3 fatty acids-fish oil (FISH OIL) 300-1,000 mg capsule 1 capsule daily (Patient taking differently: 2 (two) times a day ) 0 0 ??? [DISCONTINUED] Trelegy Ellipta 100-62.5-25 mcg inhaler daily Facility-Administered Encounter Medications as of 05/28/2022 Medication Dose Route Frequency Provider Last Rate Last Admin ??? sodium chloride 0.9% flush 0.5-20 mL 0.5-20 mL intra-catheter Q8H Patrick Cruz MD ??? sodium chloride 0.9% flush 0.5-20 mL 0.5-20 mL intra-catheter Patrick Lin MD CARDIAC HISTORY: He had silent ischemia prior to CABG in 2004. He had a PPM in 2017. Second Degree AV Block LDL 47 TTE 05/10/2019 Conclusions: 1. Ejection Fraction is measured at ([place]) 53 %. Diastolic indices overall most consistent with Grade II diastolic dysfunction (impaired myocardial relaxation with elevated filling pressures). Mild enlargement of left ventricle. Mild concentric left ventricular hypertrophy. Moderate apical and apical septal hypokinesis. Technically difficult. Contrast was used. 2. There is moderate enlargement of the left atrium. 3. The anterior mitral valve leaflets appear mildly thickened. Mitral regurgitation, probably moderate. 4. Probable tricuspid aortic valve, although not all cusps are well visualized. Aortic cusps appear moderately sclerotic. Mild aortic valve regurgitation. 5. Grossly normal appearing tricuspid valve. Mild tricuspid regurgitation. Normal right ventricular systolic pressure. MPI 05/2019 Conclusions: 1. Left ventricular ejection fraction is 45 %. 2. There is moderately diminished perfusion at the LV apex and mid to apical septam at both stress and rest. Diminished inferior wall perfusion is more prominent in the resting images and is likely due to diaphragm artifact. No significant reversible ischemia is seen. 3. Based on these findings,from an ischemic standpoint, the patient is an acceptable candidate for his surgical procedure. REVIEW OF SYSTEMS Pertinent review of systems negative unless otherwise stated in HPI above. PHYSICAL EXAM: BP 132/72 Pulse 76 Ht 175.3 cm (5' 9 ) Wt 103.4 kg (228 lb) BMI 33.67 kg/m?? General: Well appearing, No pain or distress, well nourished Head and Neck: N/A Eyes: N/A ENT: N/A Respiratory: Clear to ausculation bilaterally; no wheezing/rales/rhonchi; respirations nonlabored Cardiovascular: RRR, normal S1 and S2. No S3 or S4. No murmurs or rubs. No visible JVD. Gastrointestinal: N/A Extremities: Warm and perfused extremities, no edema Musculoskeletal: Ambulates under own power, no assistive devices Skin: N/A Psychiatric: Appropriate mood and affect. Calm and cooperative. Neurologic: awake/alert, no focal deficits MDM Problems Addressed: ICD-9-CM ICD-10-CM 1. 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 ([facility]) ([facility]) 414.05 I25.709 413.9 3. Hx of CABG V45.81 Z95.1 4. History of percutaneous coronary intervention V15.1 Z98.61 5. Paroxysmal atrial fibrillation ([facility]) ([facility]) 427.31 I48.0 6. Essential hypertension 401.9 I10 7. 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 losartan 100 mg daily 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 ([facility]) ([facility]) Hx of CABG - CABG in 2003, with now subsequent PCI and July 2021 - continue aggressive secondary prevention - changing to atorvastatin for high-intensity statin therapy History of percutaneous coronary intervention - recent PCI for reduced EFUnderwent arthrectomy and PCI of proximal LAD with Dr. Shipley on 07/13/2021 - - will continue Xarelto and clopidogrel for now - will plan on stopping Xarelto 3 days prior to procedure and clopidogrel 7 days prior to procedure - and resume Xarelto and aspirin 81 mg postprocedure Paroxysmal atrial fibrillation ([facility]) ([facility]) - on Xarelto - We are currently pursuing a rate/rhythm control strategy: Rate Med(s): Coreg 12.5 mg b.i.d. 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 - mild aortic stenosis as of echo October 2021, mean gradient 10 mmHg - moderate mitral regurgitation Preoperative cardiovascular examination - okay to proceed at this time - stop Xarelto 3 days prior to procedure clopidogrel 7 days prior to procedure - resume Xarelto on aspirin 81 mg postprocedure CKD: 07/28/20 Cr 1.6 gfr 42 08/15/20 Cr 1.5 gfr 45 12/16/20 Cr 1.7, gfr 39, CO2 29, UA 1+pro 3+glc Hb 12.1, A1C 5.7, glc 129 04/28/21 Cr 1.6, gfr 42, CO2 25, Hb 11.8, PTH 47.6, Upro 80, May 2022 creatinine 1.1 hemoglobin 13.7 Shiva Anne MD [facility] [place] Net Maker This note was dictated in part using Soldsie voice recognition software. Despite careful review of this note, variances in spelling and vocabulary are possible and unintentional. 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- Primary 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 ([facility]) ([facility]) Hx of CABG Postsurgical aortocoronary bypass status History of percutaneous coronary intervention Paroxysmal atrial fibrillation ([facility]) ([facility]) Atrial fibrillation Essential hypertension Unspecified essential hypertension Preoperative cardiovascular examination Pre-operative cardiovascular examination documented in this encounter Discontinued Medications Medication Sig Discontinue Reason Start Date End Da te Trelegy Ellipta 100-62.5-25 mcg inhaler daily Therapy completed 08/15/20202021 furosemide (LASIX) 40 mg tablet Take 80 mg by mouth daily Therapy completed 05/28/2022 carvediloL (COREG) 25 mg tablet Take 25 mg by mouth every 12 (twelve) hours Therapy completed 04/01/2021 05/28/2022 omega-3 fatty acids-fish oil (FISH OIL) 300-1,000 mg capsule 1 capsule daily Therapy completed 09/10/2015 05/28/2022 documented as of this encounter Historical Medications * This list may reflect changes made after this encounter. furosemide (LASIX) 40 mg tablet Take 1 tablet (40 mg total) by mouth every other day carvediloL (COREG) 12.5 mg tablet Take 1 tablet (12.5 mg total) by mouth 2 (two) times a day with meals added in this encounter Care Teams Dietetics Teacher Relationship Specialty Start Date End Date Say Low MD [address] [facility] [address] [place] [phone] PCP - General 02/15/17 documented as of this encounter
--- OUTSIDE RECORDS SUMMARY | 2024-09-22 19:04 | XMS_ITS | Encounter Summary ---
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 Gender Identity Male 07/10/2021 8:31 AM CDT Sexual Orientation Straight 06/12/2021 8: 44 AM CDT documented as of this encounter Miscellaneous Notes * Telephone Encounter - Donna Hollis - 04/20/2022 8:13 AM CDT Rcdv call from pt stated he is having a mole frozen and cutting it off Stated he is not sure what will be done today He stated he will CB when he has more information documented in this encounter Plan of Treatment Not on file documented as of this encounter Visit Diagnoses Not on filedocumented in this encounter Care Teams Cellular Equipment Installer Relationship Specialty Start Date End Date Say Low MD [address] [facility] [address] [place] [phone] PCP - General 02/15/17 documented as of this encounter
--- OUTSIDE RECORDS SUMMARY | 2024-09-22 19:04 | XMS_ITS | Encounter Summary ---
Author Organization [facility] Address [address] [place] [address] Care Team Providers Care Cage Maker Name Role Phone Say Low MD Primary Care Provider [phone] Reason for Visit * Cardiology (Routine) - Closed Specialty Diagnoses / Procedures Referred By Yary silveira Referred To Contact Diagnoses Randall WINN Procedures DEVICE CHECK - REMOTE Wayne Davis MD [address], [place] [address] Phone: tel: fax: [facility] Referral ID Status Reason Start Date Expiration Date Visits Re quested Visits Authorized [id number] Closed 07/19/2022 01/18/2024 1 1 Encounter Details Date Type Department Care Team (Late st Contact Info) Description 10/18/2022 2:30 PM AGRICULTURAL LABOR CAMP MANAGER Ancillary Procedure [facility] [address], [place] [id number] Mobitz II; Pacemaker Social History Tobacco Use Types Packs/Day [...] on file Legal 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 Gender Identity Male 07/10/2021 8:31 AM CDT Sexual Orientation Straight 06/12/2021 8: 44 AM CDT documented as of this encounter Plan of Treatment Not on file documented as of this encounter Procedures Procedure Name Priority Date/Time Associated Diagnosis Comments DEVICE CHECK - REMOTE Routine 10/18/2022 2:06 PM AGRICULTURAL LABOR CAMP MANAGER Mobitz II documented in this encounter Results * DEVICE CHECK - REMOTE (10/18/2022 2:06 PM AGRICULTURAL LABOR CAMP MANAGER) Anatomical Region Laterality Modality Other Narrative 10/23/2022 1:41 PM AGRICULTURAL LABOR CAMP MANAGER Table formatting from the original result was not included. PM CHECK (REMOTE) Patient ID: Drew Pak is a 82 y.o. male This patient received a [employer] scientific Pacemaker. ??They had a routine remote [...] to SOFI Episodes last 90 days/Comments: AF [place] 100 %, the patient is in permanent atrial fibrillation.. ?? Ventricular rates ranged between the 70s to 110 beats per minute. NORMAL DEVICE FUNCTION PROGRAMMED MEDICATIONS: Anti-coagulant(s): ??Xarelto 20 mg daily Anti-arrhythmic(s): ??Coreg 12.5 mg twice daily PLAN: 1) normal [employer] Pacemaker evaluation 2) [employer] remote transmission scheduled in 3 months. 3) Programming appropriate for device measurements Manuel M. Biermann, RN us Wayne Davis MD [facility] PRO CEDURES Final Result documented in this encounter Visit Diagnoses Diagnosis Mobitz II Mobitz (type) II atrioventricular block Pacemaker Cardiac pacemaker in situ documented in this encounter Care Teams Cage Maker Relationship Specialty Start Date End Date Say Low MD [address] [facility] [address] [place] [phone] PCP - General 02/15/17 documented as of this encounter
--- OUTSIDE RECORDS SUMMARY | 2024-09-22 19:04 | XMS_ITS | Encounter Summary ---
Author Organization [facility] Medical Group Address [address] [place] [address] Care Team Providers Care Ornament Stapler Name Role Phone Say Low MD Primary Care Provider [phone] Encounter Details Date Type Department Care Team (Late st Contact Info) Description 06/21/2022 Telephone [facility] Medical [facility] Cardiology [address] [place] [address] Shiva Anne MD [address] [facility] [address] [place] [address] Social History Tobacco Use Types Packs/Day Years [...] on file 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 I alreadygave instructions for holding anticoagulation. * Addendum Note - Donna Hollis - 06/28/2022 8:18 AM CDTAddended by: DONNA HOLLIS on: 06/28/2022 08:18 AM Modules accepted: Orders * Telephone Encounter - Donna Hollis - 06/28/2022 8:17 AM CDT Call from office pt is having procedure with she stated that pt is having a steroid injection into his spine She is asking if that's okay Gave number [phone] ext [phone] Please advise * Telephone Encounter - Donna Hollis - 06/24/2022 10:35 AM CDT Called pt verbally understood * Telephone Encounter - Shiva Anne MD - 06/24/2022 10:29 AM CDT Okay to hold for 3 days prior to that procedure as well * Telephone Encounter - Donna Hollis - 06/24/2022 10:14 AM CDT Pt is having another procedure on 07/06 and is needing to hold the Xarelto for 3 days prior to thatprocedure for 3 days as well Please advise * Telephone Encounter - Donna Hollis - 06/22/2022 11:36 AM CDT Called pt he verbally understood * Telephone Encounter - Shiva Anne MD - 06/22/2022 10:51 AM CDT That is fine, okay to hold Xarelto 3 days and resume after * Telephone Encounter - Donna Hollis - 06/22/2022 8:06 AM CDT Pt is having a procedure he needs to hold the Xarelto for 3 days prior * Telephone Encounter - Donna Hollis - 06/22/2022 8:05 AM CDT Called pt verbally understood * Telephone Encounter - Shiva Anne MD - 06/21/2022 4:34 PM CDT Yes okay for aspirin, instead of Plavix. But would definitely recommend continuing his Xarelto as well for his atrial fibrillation * Telephone Encounter - Donna Hollis - 06/21/2022 9:47 AM CDT Rcdv call from pt stated he stopped taking Plavix and replaced it with 81 MG aspirin he is calling to see if that was okay Please advise documented in this encounter Plan of Treatment Not on file documented as of this encounter Visit Diagnoses Not on filedocumented in this encounter Discontinued Medications Medication Sig Discontinue Reason Start Date End Da te clopidogreL (PLAVIX) 75 mg tablet TAKE 1 TABLET(75 MG) BY MOUTH DAILY Alternate therapy 06/08/2022 06/28/2022 documented as of this encounter Care Teams Ornament Stapler Relationship Specialty Start Date End Date Say Low MD [address] [place] [address] PCP - General 02/15/17 documented as of this encounter
--- OUTSIDE RECORDS SUMMARY | 2024-09-22 19:04 | XMS_ITS | Encounter Summary ---
Author Organization [facility] Address [address] [place] [address] Care Team Providers Care Vocational Technical Education Director Name Role Phone Say Low MD Primary Care Provider [phone] Reason for Visit * Cardiology (Routine) - Closed Specialty Diagnoses / Procedures Referred By Yary silveira Referred To Contact Diagnoses Mobitz II Procedures DEVICE CHECK - REMOTE Wayne Davis MD [address] [facility] [address], [place] [address] Phone: tel: fax: [facility] Referral ID Status Reason Start Date Expiration Date Visits Re quested Visits Authorized [id number] Closed 07/19/2022 01/18/2024 1 1 Encounter Details Date Type Department Care Team (Latest Contact Info) Description 04/18/2023 1:45 PM CDT Ancillary Procedure Arrhythmia Center [address] [phone] Pacemaker (Primary Dx); Mobitz II Social History [...] on file 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 PM CHECK (REMOTE) Patient ID: Drew Pak is a 82 y.o. male This patient received a [employer] scientific Pacemaker. ??They had a routine remote [...] to SOFI Episodes last 90 days/Comments: AF [place] 100 % There were no new ventricular events noted on today's remote interrogation. NORMAL DEVICE FUNCTION PROGRAMMED MEDICATIONS: Anti-coagulant(s): ??Xarelto 20 mg Anti-arrhythmic(s): ??Coreg 12.5 mg twice daily PLAN: 1) normal [employer] scientific Pacemaker evaluation 2) [employer] scientific remote transmission scheduled in 3 months. 3) Programming appropriate for device measurements Bhavani Dariana Wigge, RN us Wayne Davis MD [facility] C[facility]IAC [facility] PRO CEDURES Final Result documented in this encounter Visit Diagnoses Diagnosis Pacemaker- Primary Cardiac pacemaker in situ Mobitz II Mobitz (type) II atrioventricular block documented in this encounter Care Teams Vocational Technical Education Director Relationship Specialty Start Date End Date Say Low MD [address] [facility] [address] [place] [phone] PCP - General 02/15/17 documented as of this encounter
--- OUTSIDE RECORDS SUMMARY | 2024-09-22 19:04 | XMS_ITS | Encounter Summary ---
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 Just going in for cleaning. Does not need to hold any meds for cleaning. MACHINE OPERATOR * Telephone Encounter - Joaquina Turner LPN - 08/17/2022 10:42 AM CAN MACHINE OPERATOR Received form requesting to hold medication related to dental cleaning. Updated Dr. Anne at this time he stated there would be no reason to hold medication for this cleaning and to call office toget further information. Called Dr. Vivar office at this time to confirm. Dr. Vivar states that patient had showed up to dentist office without appointment and was informing Dr. Vivar that he was bleed from a wound and wanted her to ask about stopping his Xarelto completely. So they sent the form since patient requested. Called pt to see what kind of bleeding he was having since pt did not mention when stopping by office. Pt had mention to other staff that he would like to be off of Xarelto completely if possible. Since pt did not answer. LVM for call back to give further information on his bleeding. MACHINE OPERATOR documented in this encounter Plan of Treatment Not on file documented as of this encounter Visit Diagnoses Not on filedocumented in this encounter Care Teams Professor Of Voice Relationship Specialty Start Date End Date Say Low MD [address] [facility] [address] [place] [address] PCP - General 02/15/17 documented as of this encounter
--- OUTSIDE RECORDS SUMMARY | 2024-09-22 19:04 | XMS_ITS | Encounter Summary ---
Author Organization [facility] Address [address] [place] [address] Care Team Providers Care Canvas Goods Fabricator Name Role Phone Say Low MD Primary Care Provider [phone] Reason for Visit * Cardiology (Routine) - Closed Specialty Diagnoses / Procedures Referred By Yary silveira Referred To Contact Diagnoses Randall WINN Procedures DEVICE CHECK - REMOTE Wayne Davis MD Phone: tel: fax: [facility] Referral ID Status Reason Start Date Expiration Date Visits Re quested Visits Authorized [id number] Closed 03/18/2021 04/17/2022 1 1 Encounter Details Date Type Department Care Team (Late st Contact Info) Description 07/19/2022 12:00 PM CDT Ancillary Procedure Arrhythmia Center [address], [place] [address] Mobitz II; Pacemaker Social History Tobacco Use [...] on file 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 This patient received a [employer] Pacemaker. ??They had a routine ?? remote transmission on 07/19/2022. 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 Interrogation of the patient's device demonstrates the following: Presenting EGM: ??AFib V paced @ 7 0 bpm Lead Measurements Right Atrium Right Ventricle Sensitivity (mV) 6.0 mV 22.0 mV Impedence (Ohms) 513 ohms 512 ohms Pace Threshold Not done V @ ??ms 0.5 V @ 0.4 ms Pacing % 0 % 69 % Battery Status: ??2.0 years to SOFI Episodes last 90 days/Comments: AF [place] 100 %, the patient is in permanent atrial fibrillation. ?? Ventricular rates range between 70 and 110 beats per minute. NORMAL DEVICE FUNCTION PROGRAMMED Anti-coagulant(s): ??Xarelto 20 mg daily Anti-arrhythmic(s): ??Coreg 12.5 mg twice daily Plan: 1) normal [employer] Pacemaker evaluation 2) [employer] remote transmission scheduled in 3 months. Manuel Sullivan R.N. us Wayne Davis MD [facility] PRO CEDURES Final Result documented in this encounter Visit Diagnoses Diagnosis Mobitz II Mobitz (type) II atrioventricular block Pacemaker Cardiac pacemaker in situ documented in this encounter Care Teams Canvas Goods Fabricator Relationship Specialty Start Date End Date Say Low MD [address] [facility] [address] [place] [address] PCP - General 02/15/17 documented as of this encounter
--- OUTSIDE RECORDS SUMMARY | 2024-09-22 19:04 | XMS_ITS | Encounter Summary ---
Author Organization [facility] Address [address] [place] [address] Care Team Providers Care Chip Silo Tender Name Role Phone Say Low MD Primary Care Provider [phone] Reason for Visit * Reason Onset Date Comments EGD 05/18/2023 Encounter Details Date Type Department Care Team (Late st Contact Info) Description 05/18/2023 Telephone [facility] Cardiology 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 ESCOBAR AT [phone] * Telephone Encounter - Kimmy Kaiser - 05/19/2023 8:48 AM CDT Patient called and added ov for tomorrow at 1:15 for EGD clearance. * Telephone Encounter - Shiva Anne MD - 05/18/2023 5:12 PM CDT Okay to hold Xarelto, however if clearance is needed he needs an office visit I am fine with him moving his office visit scheduled for later this month up to Tuesday at 1:15pm * Telephone Encounter - Joaquina Turner LPN - 05/18/2023 4:49 PM CDT Received communication from [facility] asking for clearance letter for pt to get EGD on05/26/[address] Escobar. They also are requesting that pt hold Xarelto for 2 days prior to procedure documented in this encounter Plan of Treatment Not on file documented as of this encounter Visit Diagnoses Not on filedocumented in this encounter Care Teams Chip Silo Tender Relationship Specialty Start Date End Date Say Low MD [address] [place] [address] [place] [address] PCP - General 02/15/17 documented as of this encounter
--- OUTSIDE RECORDS SUMMARY | 2024-09-22 19:04 | XMS_ITS | Encounter Summary ---
Author Organization [facility] Medical Group Address [address] [place] [address] Care Team Providers Care Outside Sales Consultant Name Role Phone Say Low MD Primary Care Provider [phone] Encounter Details Date Type Department Care Team (Late st Contact Info) Description 04/28/2022 Telephone [facility] Cardiology [address] [facility] [address] [place] [address] Shiva Anne MD [address] [facility] [address] [place] [address] Social History Tobacco Use Types Packs/Day Years [...] on file 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 Patient verbally understood. Stated he would call office back for letter of clearance once he has appointment for back procedure scheduled * Telephone Encounter - Shiva Anne MD - 04/28/2022 4:24 PM CDT If possible would recommend scheduling his back procedure for July or later this year. That would be the ideal recommended time from a cardiac perspective. At which time stopping blood thinners asneeded would be reasonable. * Telephone Encounter - Doris Escobedo - 04/28/2022 2:16 PM CDT Patient calling stating that he is wanting to have a pain management back procedure upcoming soon, but patient stated he had stent placed under a year ago and for procedure he will be needing to stopblood thinners. Patient would like to know if he is able to schedule procedure this year or will hehave to wait a year post stent to schedule procedure. Patient states they are not able to proceed with procedure without stopping blood thinners Please advise documented in this encounter Plan of Treatment Not on file documented as of this encounter Visit Diagnoses Not on filedocumented in this encounter Care Teams Outside Sales Consultant Relationship Specialty Start Date End Date Say Low MD [address] [facility] [address] [place] [id number] PCP - General 02/15/17 documented as of this encounter
--- OUTSIDE RECORDS SUMMARY | 2024-09-22 19:04 | XMS_ITS | Encounter Summary ---
Author Organization [facility] Address [address] [place] [address] Care Team Providers Care Refrigerator Repairman Name Role Phone Say Low MD Primary Care Provider [phone] Reason for Visit * Cardiology (Routine) - Closed Specialty Diagnoses / Procedures Referred By Yary silveira Referred To Contact Diagnoses Randall WINN Procedures DEVICE CHECK - REMOTE Wayne Davis MD Phone: tel: fax: [facility] Referral ID Status Reason Start Date Expiration Date Visits Re quested Visits Authorized [id number] Closed 03/18/2021 04/17/2022 1 1 Encounter Details Date Type Department Care Team (Late st Contact Info) Description 04/12/2022 9:45 AM CDT Ancillary Procedure Arrhythmia Center [address], [place] [address] Mobitz II; Pacemaker Social History Tobacco Use [...] on file 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 ??They had a routine [employer] remote transmission on 04/12/2022. Device implant indications: ??Mobitz type II ?? Interrogation of the patient's device demonstrates the following: Presenting EGM: ??AFib V sense/V paced @ 70 bpm Lead Measurements Right Atrium Right Ventricle Sensitivity (mV) 5.2 mV >25 mV Impedence (Ohms) 493 ohms 499 ohms Pace Threshold Not done V @ ??ms 0.6 V @ 0.4 ms Pacing % 0 % 67 % Battery Status: ??2 years to SOFI Episodes last 90 days/Comments: AF [place] 100 % There were no new ventricular events noted on today's remote interrogation. NORMAL DEVICE FUNCTION PROGRAMMED Anti-coagulant(s): ??Xarelto 20 mg daily, Plavix 75 mg daily Anti-arrhythmic(s): ??Coreg 25 mg twice daily Plan: 1) normal [employer] Pacemaker evaluation 2) [employer] remote transmission scheduled in 3 months. 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
--- OUTSIDE RECORDS SUMMARY | 2024-09-22 19:04 | XMS_ITS | Encounter Summary ---
Author Organization [facility] Address [address] [place] [address] Care Team Providers Care Ceiling Installer Name Role Phone Say Low MD Primary Care Provider Reason for Visit * Cardiology (Routine) - Closed Specialty Diagnoses / Procedures Referred By Yary silveira Referred To Contact Diagnoses Mobitz II Procedures DEVICE CHECK - REMOTE Wayne Davis MD [address] [facility] [address], [place] [address] Phone: tel: fax: [facility] Referral ID Status Reason Start Date Expiration Date Visits Re quested Visits Authorized [id number] Closed 07/19/2022 01/18/2024 1 1 Encounter Details Date Type Department Care Team (Latest Contact Info) Description 01/17/2023 3:45 PM CDT Ancillary Procedure Arrhythmia Center [address] [facility] [address], [place] [id number] Cardiac pacemaker in situ (Primary Dx); Mobitz II Social History Tobacco [...] on file 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 PM CHECK (REMOTE) Patient ID: Drew Pak is a 82 y.o. male This patient received a [employer] Pacemaker. ??They had a routine remote [...] to SOFI Episodes last 90 days/Comments: AF [place] 100 %, the patient has been in atrial fibrillation 100% of the time since at least August 2022. ??Ventricular rates ranged between 70 and 110 beats per minute. NORMAL DEVICE FUNCTION PROGRAMMED MEDICATIONS: Anti-coagulant(s): ??Xarelto 20 mg daily Anti-arrhythmic(s): ??Coreg 12.5 mg twice daily PLAN: 1) normal [employer] Pacemaker evaluation 2) [employer] remote transmission scheduled in 3 months. 3) Programming appropriate for device measurements Manuel Sullivan, RN us Wayne Davis MD [facility] C[facility]IAC SERVICES PRO CEDURES Final Result documented in this encounter Visit Diagnoses Diagnosis Cardiac pacemaker in situ- Primary Mobitz II Mobitz (type) II atrioventricular block documented in this encounter Care Teams Ceiling Installer Relationship Specialty Start Date End Date Say Low MD [address] [facility] [address] [place], [place] [id number] PCP - General 02/15/17 documented as of this encounter
--- OUTSIDE RECORDS SUMMARY | 2024-09-22 19:04 | XMS_ITS | Encounter Summary ---
Author Organization [facility] Address [address] [place] [address] Phone Care Team Providers Care Consumer Insight Analyst Name Role Phone Say Low MD Primary Care Provider [phone] Reason for Visit * Reason Comments Urolithiasis Encounter Details Date Type Department Care Team (Late st Contact Info) Description 09/14/2022 10:40 AM PRODUCTION OR PLANT ENGINEER Office Visit [facility] Surgery [address] [facility] [address] [place] [address] Concetta Thurston MD [address] [place] [address] Nephrolithiasis (Primary Dx); Urinary frequency Social History Tobacco Use Types Packs/Day Years [...] on file 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 male with chief complaint of urolithiasis. HPI: Drew Pak 82 y.o. here for urolithiasis. He has toro history of BPH, elevated PSA, CABG 2003, pacemaker here for follow up of nephrolithiasis and urethral stricture. He is s/p Left URS on 01/17/19, stone analysis revealed 100% COM. He also had prior left ESWL in 11/2017 for 8mm LP stone, Right PCNL in 06/2009, and Right ESWL in 06/2005 . His initial 24 hour ua showed 2.58L, calcium 215, sodium 188, oxalate 49, citrate 461, pH 5.7. Repeat 24 hour ua 05/2018 showed 2.41L, calcium 154, sodium 132, oxalate 46, citrate 261, pH 5.2, elevated supersaturation of uric acid. He is on Urocit-K and Allopurinol. After his laminectomy in 07/2020, he was noted to have hyperkalemia and Urokit K 10meq was decreased to once daily. Repeat serum potassium level was WNL at 4.5 on 07/28/20 and 4.6 on 08/15/20. Of note, he was found to have a soft bulbar urethral stricture during 01/17/19 URS. He denies any issues with urination and reports his urine stream is strong. He takes Tamsulosin 0.4mg for his BPH/LUTS. He has urgency and frequency but attributes it to his Furosemide 40mg use. Last, he has a history of elevated PSA with two prostate biopsies in 12/2010 ( benign and 08/2010 focal glandular atypia). Last PSA was 1.1 on 05/31/18. CT shows bilateral non obstructing stones. He is asymptomatic. He recently underwent cardiac stent placement 07/2021. Past Medical History: Diagnosis Date Arthritis CHF (congestive heart failure) (CMS/HCC) (HCC) Chronic kidney disease Congestive heart failure (CHF) (CMS/HCC) (HCC) COPD (chronic obstructive pulmonary disease) ([facility]/HCC) (HCC) Diabetes mellitus (HCC) HX OTHER MEDICAL [...] SURGERY 2010 r/t trauma UPPER GASTROINTESTINAL ENDOSCOPY Social History Tobacco Use Smoking status: Former Packs/day: 3.00 Types: Cigarettes Start date: 1958 Quit date: 04/29/1983 Years since quittin.4 Smokeless tobacco: Never Substance and Sexual Activity Drug use: No Sexual activity: Not on file Alcohol Use: Not on file Family History Problem Relation Age of Onset Alzheimer's disease Mother Alzheimer's disease; Stroke Mother Arthritis Mother Diabetes Mother Hypertension Mother Gout Mother Heart attack Other Family history of Myocardial infarction; Cause of : Family history of Myocardial infarction Heart attack Father Cancer Father Heart disease Father Hypertension Father (Not in a hospital admission) No Known Allergies Review of Systems: Review of Systems Objective Physical Exam: Physical Exam Lab/Radiology/Diagnostic Review: Imaging review: I have reviewed the result(s) and agree with the radiologist's report. Drew Pak 82 y.o. here for urolithiasis. FURTHER DIAGNOSTICS: Imaging: Renal US prior to next visit. TREATMENT RECOMMENDATIONS: Analgesics as needed Continue current regimen Behavioral: Recommend fluid intake to make approximately 2-3 liters of urine per day, low sodium, low purine diet, avoid soda and sugar-containing drinks Discussed risk of stone progression, including growth, stone migration, renal obstruction resultingin loss of renal function, associated infection which may be life-threatening. The patient understands these risks and wishes to observe. FOLLOW-UP: Report intensification of symptoms to my office or go to the emergency room for intractable pain, associated fever, chills, nausea, vomiting or hematuria. Return office visit in 6 mos. UCTION OR PLANT ENGINEER documented in this encounter Plan of Treatment Not on file documented as of this encounter Procedures Procedure Name Priority Date/Time Associated Diagnosis Comments MEASURE POST VOID RESIDUAL Routine 09/14/2022 Urinary frequency documented in this encounter Results * Measure post void residual (09/14/2022) Narrative Aida Juarez CMA - 09/14/2022 Measurement of Post Void Residual urine and/or bladder capacity by US, non imaging. PVR =5ml us Concetta Thurston MD NURSING ASSESSMENTS Fin al Result documented in this encounter Visit Diagnoses Diagnosis Nephrolithiasis- Primary Calculus of kidney Urinary frequency documented in this encounter Care Teams Consumer Insight Analyst Relationship Specialty Start Date End Date Say Low MD [address] [facility] [address] [place] [address] PCP - General 02/15/17 documented as of this encounter
--- OUTSIDE RECORDS SUMMARY | 2024-09-22 19:05 | XMS_ITS | Encounter Summary ---
Author Organization [facility] Address [address] [address] Care Team Providers Care Security Systems Administrator Name Role Phone Say Low MD Primary Care Provider [phone] Reason for Referral * Cardiology (Routine) - Closed Specialty Diagnoses / Procedures Referred By Contac t Referred To Contact Diagnoses Mobitz II Procedures DEVICE CHECK - REMOTE Wayne Davis MD Phone: tel: fax: [facility] Referral ID Status Reason Start Date Expiration Date Visits Re quested Visits Authorized [id number] Closed 03/18/2021 04/17/2022 1 1 * Cardiology (Routine) - Closed Specialty Diagnoses / Procedures Referred By Contac t Referred To Contact Diagnoses Mobitz II Procedures DEVICE CHECK - REMOTE Wayne Davis MD Phone: tel: fax: [facility] Referral ID Status Reason Start Date Expiration Date Visits Re quested Visits Authorized [id number] Closed 03/18/2021 04/17/2022 1 1 * Cardiology (Routine) - Closed Specialty Diagnoses / Procedures Referred By Contac t Referred To Contact Diagnoses Mobitz II Procedures DEVICE CHECK - REMOTE Wayne Davis MD Phone: tel: fax: [facility] Referral ID Status Reason Start Date Expiration Date Visits Re quested Visits Authorized [id number] Closed 03/18/2021 04/17/2022 1 1 * Cardiology (Routine) - Closed Specialty Diagnoses / Procedures Referred By Contac t Referred To Contact Diagnoses Mobitz II Procedures DEVICE CHECK - REMOTE Wayne Davis MD Phone: tel: fax: [facility] Referral ID Status Reason Start Date Expiration Date Visits Re quested Visits Authorized [id number] Closed 03/18/2021 04/17/2022 1 1 Encounter Details Date Type Department Care Team (Late st Contact Info) Description 03/18/2021 Orders Only Arrhythmia Center [address] [facility] [address] [place] [address] Wayne Davis MD [address] [place] [address] Mobitz II (Primary Dx) Social History Tobacco Use Types Packs/Day Years Used Date Smoking Tobacco: Former Cigarettes 3 22.6 1 961 - 04/29/1983 Smokeless Tobacco: Never Alcohol Use Standard Drinks/Week Comments No 0 (1 standard drink = 0.6 oz pur e alcohol) Sex and Gender Information Value Date Recorded Sex Assigned at Not on file Legal Sex Male 8:04 PM [employer]IPPER [employer] Gender Identity Male 07/10/2021 8:31 AM CDT [...] was not included. This patient received a [employer] Pacemaker. ??They had a routine ?? [...] to SOFI Episodes last 90 days/Comments: AF Hastings 100 %, the patient is in permanent atrial fibrillation. ?? Ventricular rates range between 70 and 110 beats per minute. NORMAL DEVICE FUNCTION PROGRAMMED Anti-coagulant(s): ??Xarelto 20 mg daily Anti-arrhythmic(s): ??Coreg 12.5 mg twice daily Plan: 1) normal [employer] Pacemaker evaluation 2) [employer] remote transmission scheduled in 3 months. Ferdinand MoralezNShayla us Wayne Davis MD [facility] PRO CEDURES Final Result * DEVICE CHECK - REMOTE (04/12/2022 9:32 AM CDT) Anatomical Region Laterality Modality Other Narrative 04/14/2022 2:20 PM CDT This patient received a [employer] Pacemaker. ??They had a routine [employer] remote transmission on 04/12/2022. Device implant [...] to SOFI Episodes last 90 days/Comments: AF Hastings 100 % There were no new ventricular events noted on today's remote interrogation. NORMAL DEVICE FUNCTION PROGRAMMED Anti-coagulant(s): ??Xarelto 20 mg daily, Plavix 75 mg daily Anti-arrhythmic(s): ??Coreg 25 mg twice daily Plan: 1) normal [employer] Pacemaker evaluation 2) [employer] remote transmission scheduled in 3 months. Cortez Butler R.N. us Wayne Davis MD CV CARDIAC SERVICES PRO CEDURES Final Result * DEVICE CHECK - REMOTE (12/28/2021 2:35 PM CDT) Anatomical Region Laterality Modality Other Narrative 01/01/2022 7:57 AM CDT This patient received a [employer] Pacemaker. ??They had a routine [employer] remote transmission on 12/28/2021. Device implant indications: ??Mobitz type 2 ?? Interrogation of the patient's device demonstrates the following: Presenting EGM: ??AF with RV pace @ 70 bpm Lead Measurements Right Atrium Right Ventricle Sensitivity (mV) 6.0 mV >25.0 mV Impedence (Ohms) 492 ohms 500 ohms Pace Threshold Not done V @ ms 0.7 V @ .40 ms Pacing % 0 % 63 % Battery Status: ??2.5 years to SOFI Episodes last 90 days/Comments: AF Hastings 100 % There were no new ventricular events noted on today's remote interrogation. NORMAL DEVICE FUNCTION PROGRAMMED Anti-coagulant(s): ??Xarelto 20 mg, Plavix 75 mg Anti-arrhythmic(s): ??Coreg 25 mg Plan: 1) normal [employer] Pacemaker evaluation 2) [employer] remote transmission scheduled in 3 months. Bhavani White R.N. us Wayne Davis MD CV CARDIAC SERVICES PRO CEDURES Final Result * DEVICE CHECK - REMOTE (09/28/2021 4:14 PM [employer]) Anatomical Region Laterality Modality Other Narrative 10/09/2021 7:49 AM [employer]IP[employer] This patient received a [employer] Pacemaker. ??They had a routine [employer] remote transmission on 09/28/2021. Device implant indications: ??Mobitz type 2 ?? Interrogation of the patient's device demonstrates the following: Presenting EGM: ??AFib with RV sense @ 77 bpm Lead Measurements Right Atrium Right Ventricle Sensitivity (mV) 1.0 mV >25.0 mV Impedence (Ohms) 468 ohms 463 ohms Pace Threshold Not done V @ ??ms 0.6 V @ 0.40 ms Pacing % 0 % 66 % Battery Status: ??2.5 years to SOFI Episodes last 90 days/Comments: AF Hastings 0 % There were no new ventricular events noted on today's remote interrogation. NORMAL DEVICE FUNCTION PROGRAMMED Anti-coagulant(s): ??Xarelto 20 mg, Plavix 75 mg Anti-arrhythmic(s): ??Coreg 25 mg Plan: 1) normal [employer] Pacemaker evaluation 2) [employer] remote transmission scheduled in 3 months. Bhavani White R.N. us Wayne Davis MD CV CARDIAC [...] situ documented in this encounter Care Teams Security Systems Administrator Relationship Specialty Start Date End Date Say Low MD [address] [facility] [address] [facility] [address] [place] [address] PCP - General 02/15/17 documented as of this encounter
--- OUTSIDE RECORDS SUMMARY | 2024-09-22 19:05 | XMS_ITS | Encounter Summary ---
Author Organization [facility] Address [address] [place] [address] Care Team Providers Care Computer Equipment Repairer Name Role Phone Say Low MD Primary Care Provider [phone] Reason for Referral * Hospital - Outpatient (Routine) - Closed Specialty Diagnoses / Procedures Referred By Yary silveira Referred To Contact Diagnoses Hx of CABG Paroxysmal atrial fibrillation (CMS/HCC) (HCC) Procedures Transthoracic Echo Complete W Doppler/CF Jeremías Anne MD [address] [place] [address] Phone: tel: fax: [place] [id number] [place] [address] Referral ID Status Reason Start Date Expiration Date Visits Re quested Visits Authorized [id number] Closed 03/27/2021 04/26/2022 1 1 Reason for Visit * Hospital - Outpatient (Routine) - Closed Specialty Diagnoses / Procedures Referred By Contsara t Referred To Contact Diagnoses Hx of CABG Paroxysmal atrial fibrillation (CMS/HCC) (HCC) Procedures Transthoracic Echo Complete W Doppler/CF Jeremías Anne MD [address] [place] [address] Phone: tel: fax: [facility] [address] [place] [address] Referral ID Status Reason Start Date Expiration Date Visits Re quested Visits Authorized [id number] Closed 03/27/2021 04/26/2022 1 1 Encounter Details Date Type Department Care Team (Latest Contact Info) Description 04/24/2021 9:54 AM CDT - 04/24/2021 11:59 PM CDT Hospital Encounter [facility] OP Cardiac Testing [address] 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 Gender Identity Male 07/10/2021 8:31 AM CDT Sexual Orientation Straight 06/12/2021 8: 44 AM CDT documented as of this encounter Medications at Time of Discharge allopurinoL (ZYLOPRIM) 300 mg tablet Take 0.5 tablets (150 mg total) by mouth daily 150 mg daily 12/15/2019 cholecalciferol (VITAMIN D-3) 2,000 unit tablet Take 1 tablet (2,000 Units total) by mouth 2 (two) times a day omeprazole (PriLOSEC) 40 mg capsule Take [...] same meal each day 0 0 09/10/2015 aspirin 81 mg tablet take 1 tablet by oral route every day 0 0 11/17/2015 1 carvediloL (COREG) 12.5 mg tablet TAKE 1 TABLET BY MOUTH TWICE DAILY WITH MEALS 180 tablet 11/03/2020 1 carvediloL (COREG) 25 mg tablet Take 25 mg by mouth every 12 (twelve) hours 04/01/2021 2 furosemide (LASIX) 40 mg tablet Take 40 mg by mouth daily 12/13/2019 2 losartan (COZAAR) 100 mg tablet take 1 tablet by oral route every day 30 0 11/17/2015 4 ccmvrvqi-btg-FO-ly copen-lutein (CENTRUM SILVER) 0.4-300-250 mg-mcg-mcg tablet 1 tab daily 0 0 09/10/2015 2 omega-3 fatty acids-fish oil (FISH OIL) 300-1,000 mg capsule 1 capsule daily 0 0 09/10/2015 2 rivaroxaban (XARELTO) 20 mg tabletIndications: atrial fibrillation Take 1 tablet (20 mg total) by mouth daily 30 tablet 11 03/27/2021 2 simvastatin (ZOCOR) 20 mg tablet take 1 tablet by oral route every day at bedtime 0 0 09/10/2015 2 Trelegy Ellipta 100-62.5-25 mcg inhaler daily 08/15/2020 2 documented as of this encounter Discharge Disposition Disposition Code Departure Means Destination Discharge to home or self care documented in this encounter Plan of Treatment Not on file documented as of this encounter Procedures Procedure Name Priority Date/Time Associated Diagnosis Comments TRANSTHORACIC ECHO (TTE) COMPLETE W DOPPLER/CF W CONTRAST Routine 04/24/2021 1:41 PM CDT Hx of CABG Paroxysmal atrial fibrillation (CMS/HCC) (HCC) documented in this encounter Results * TRANSTHORACIC ECHO (TTE) COMPLETE W DOPPLER/CF W CONTRAST (04/24/2021 1:41 PM CDT) Anatomical Region Laterality Modality Ultrasound 04/24/2021 9:58 AM CDT Narrative 04/25/2021 1:08 PM CDT [facility] [address] [place] [address] ECHOCARDIOGRAM Patient Name: DREW NEWMAN : 1940 Study Date: 04/24/2021 9:58:37 AM Gender: M Tech: Location: OPT Ref.Provider: JEREMÍAS ANNE Height(Cm): 178 BSA: 2.3 Weight(Kg): 107 BP: 132/68Order Provider: JEREMÍAS ANNE - Procedures: Echocardiographic Report: Transthoracic Echocardiogram with 2D, M-Mode, Spectral and Color Flow Doppler examination and administration of intravenous contrast. Indications: History CABG, PAF. Measurements: 2D/M Mode ? Doppler ? Measurement ?Value ?Normal Range ?Measurement ?Value ?Normal Range ? IVSd 2D ?1.15 ? [ 0.60 - 0.90 ] cm ?AV Peak Rommel ?2.2 ?[ 1.0 - 1.7 ] m/s ? LVIDd 2D ? 5.58 ? [ 4.20 - 5.90 ] cm ?AV Peak PG ? 19 ? [ 2 - 9 ] mmHg ? LVIDs 2D ? 4.62 ? [ 2.30 - 3.90 ] cm ?AV Mean PG ? 10 ? [ 2 - 4 ] mmHg ? LVPWd 2D ? 0.96 ? [ 0.60 - 1.00 ] cm ?AV VTI ? 45.0 ? cm ? LA Dimen 2D ?5.20 ? cm ?YONY VTI ?1.4 ?[ 2.0 - 4.0 ] cm2 ? AR Diam 2D ? 3.40 ? cm ?LVOT Peak Rommel ?1.03 ? [ 0.70 - 1.10 ] m/s ? TAPSE ?1.70 ? [ 1.60 - 3.00 ] cm ?LVOT Diam ?1.9 ?[ 1.7 - 2.1 ] cm ?LVOT Peak PG ? 4 ?[ 2 - 6 ] mmHg ?LVOT VTI ? 20.8 ? [ 20.0 - 30.0 ] cm ?MV Peak PG ? 5 ?[ 1 - 10 ] mmHg ?MV Mean PG ? 2 ?[ <= 5 ] mmHg ?MV E Peak Rommel ?1.1 ?[ 0.6 - 1.3 ] m/s ?MV A Peak Rommel ?0.3 ?[ 1.0 - 1.2 ] m/s ?MV PHT ? 68.1 ? [ 20.0 - 100.0 ] ms ?MV Decel Time ?189.3 ?[ 104.0 - 258.0 ] ms ?MVA PHT ?3.2 ?[ 2.0 - 4.0 ] ms ?MV E/A Ratio ? 3.7 ?RA Pressure ?3.0 ?mmHg ?PV Peak Rommel ?0.9 ?[ 0.4 - 0.8 ] m/s ?PV Peak PG ? 3 ?mmHg ?Lat E` Rommel ? 0.14 ? [ 0.10 - 0.15 ] m/s ?Sept E' Rommel ?0.10 ? [ 0.08 - 0.15 ] m/s ?E/E` ? 7.86 ? - Findings: Study Quality: Technically difficult study. Contrast was employed for LV opacification and endocardial border enhancement. BP: Blood pressure: 132/60 mmHg. Left Ventricle: Severe left ventricular systolic dysfunction. There is global hypokinesis. Ejection Fraction is estimated at 35 %. Paradoxical septal motion consistent with IVCD or bundle branch block. Right Ventricle: Normal right ventricular systolic function. Normal right ventricular size. Left Atrium: There is mild enlargement of the left atrium. Right Atrium: The right atrium is normal in size. Atrial Septum: Grossly normal appearing atrial septum. Cannot exclude PFO by atrial septal color Doppler interrogation. Mitral Valve: Trace mitral valve regurgitation. Mild mitral annular calcification. Aortic Valve: Probable tricuspid aortic valve, although not all cusps are well visualized. Aortic cusps appear mildly calcified. Moderate aortic valve regurgitation. Tricuspid Valve: Grossly normal appearing tricuspid valve. Trace tricuspid regurgitation. TR envelope inadequate to estimate RVSP. Pulmonic Valve: Grossly normal appearing pulmonic valve. There is no pulmonic stenosis. Pericardium: No significant pericardial effusion. Aortic Root and Aorta: The sinuses of Valsalva are normal. Aortic Arch: Grossly normal aortic arch. IVC: Normal appearance of the inferior vena cava. Conclusions: 1. Severe left ventricular systolic dysfunction. There is global hypokinesis. Ejection Fraction is estimated at 35 %. Paradoxical septal motion consistent with IVCD or bundle branch block. 2. Normal right ventricular systolic function. Normal right ventricular size. 3. Trace mitral valve regurgitation. Mild mitral annular calcification. 4. Probable tricuspid aortic valve, although not all cusps are well visualized. Aortic cusps appear mildly calcified. Moderate aortic valve regurgitation. 5. At the time of this study the patient is in atrial fibrillation. Electronically Signed By: Jeremías Anne MD [facility] 2021-04-25 13:08:13 CDT CC: CC: Procedure Note Jeremías Anne MD - 04/25/2021 [facility] [address] [place] [address] ECHOCARDIOGRAM Patient Name: DREW NEWMANPatient ID: [id number] : [id number] Date: 04/24/2021 9:58:37 AM Gender: MAccession #: [id number] Tech: WFLocation: OPT Ref.Provider: JEREMÍAS ANNEHeight(Cm): 178 BSA: 2.3Weight(Kg): 107 BP: 132/68Order Provider: JEREMÍAS ANNE - Procedures: Echocardiographic Report: Transthoracic Echocardiogram with 2D, M-Mode, Spectral and Color FlowDoppler examination and administration of intravenous contrast. Indications: History CABG, PAF. Measurements: 2D/M Mode Doppler Measurement Value Normal Range Measurement ValueNormal Range IVSd 2D 1.15 [ 0.60 - 0.90 ] cm AV Peak Rommel 2.2 [1.0 - 1.7 ] m/s LVIDd 2D 5.58 [ 4.20 - 5.90 ] cm AV Peak PG 19 [2 - 9 ] mmHg LVIDs 2D 4.62 [ 2.30 - 3.90 ] cm AV Mean PG 10 [2 - 4 ] mmHg LVPWd 2D 0.96 [ 0.60 - 1.00 ] cm AV VTI 45.0 cm LA Dimen 2D 5.20 cm YONY VTI 1.4 [2.0 - 4.0 ] cm2 AR Diam 2D 3.40 cm LVOT Peak Rommel 1.03 [0.70 - 1.10 ] m/s TAPSE 1.70 [ 1.60 - 3.00 ] cm LVOT Diam 1.9 [1.7 - 2.1 ] cm LVOT Peak PG 4 [2 - 6 ] mmHg LVOT VTI 20.8 [20.0 - 30.0 ] cm MV Peak PG 5 [1 - 10 ] mmHg MV Mean PG 2 [<= 5 ] mmHg MV E Peak Rommel 1.1 [0.6 - 1.3 ] m/s MV A Peak Rommel 0.3 [1.0 - 1.2 ] m/s MV PHT 68.1 [20.0 - 100.0 ] ms MV Decel Time 189.3 [104.0 - 258.0 ] ms MVA PHT 3.2 [2.0 - 4.0 ] ms MV E/A Ratio 3.7 RA Pressure 3.0mmHg PV Peak Rommel 0.9 [0.4 - 0.8 ] m/s PV Peak PG 3mmHg Lat E` Rommel 0.14 [0.10 - 0.15 ] m/s Sept E' Rommel 0.10 [0.08 - 0.15 ] m/s E/E` 7.86 - Findings: Study Quality: Technically difficult study. Contrast was employed for LV opacificationand endocardial border enhancement. BP: Blood pressure: 132/60 mmHg. Left Ventricle: Severe left ventricular systolic dysfunction. There is global hypokinesis.Ejection Fraction is estimated at 35 %. Paradoxical septal motion consistent withIVCD or bundle branch block. Right Ventricle: Normal right ventricular systolic function. Normal right ventricularsize. Left Atrium: There is mild enlargement of the left atrium. Right Atrium: The right atrium is normal in size. Atrial Septum: Grossly normal appearing atrial septum. Cannot exclude PFO by atrialseptal color Doppler interrogation. Mitral Valve: Trace mitral valve regurgitation. Mild mitral annular calcification. Aortic Valve: Probable tricuspid aortic valve, although not all cusps are wellvisualized. Aortic cusps appear mildly calcified. Moderate aortic valve regurgitation. Tricuspid Valve: Grossly normal appearing tricuspid valve. Trace tricuspid regurgitation.TR envelope inadequate to estimate RVSP. Pulmonic Valve: Grossly normal appearing pulmonic valve. There is no pulmonic stenosis. Pericardium: No significant pericardial effusion. Aortic Root and Aorta: The sinuses of Valsalva are normal. Aortic Arch: Grossly normal aortic arch. IVC: Normal appearance of the inferior vena cava. Conclusions: 1. Severe left ventricular systolic dysfunction. There is globalhypokinesis. Ejection Fraction is estimated at 35 %. Paradoxical septal motion consistent withIVCD or bundle branch block. 2. Normal right ventricular systolic function. Normal right ventricularsize. 3. Trace mitral valve regurgitation. Mild mitral annular calcification. 4. Probable tricuspid aortic valve, although not all cusps are wellvisualized. Aortic cusps appear mildly calcified. Moderate aortic valve regurgitation. 5. At the time of this study the patient is in atrial fibrillation. Electronically Signed By: Jeremías Anne MD [facility] 2021-04-25 13:08:13 CDT CC: CC: us Jeremías Anne MD CV ECHO PROCEDURES Sho l Result documented in this encounter Visit Diagnoses Diagnosis Hx of CABG Postsurgical aortocoronary bypass status Paroxysmal atrial fibrillation (CMS/HCC) (HCC) Atrial fibrillation documented in this encounter Administered Medications Inactive Administered Medications - up to 3 most recent administrations Medication Order MAR Action Action Date Dose Rate Site perflutren protein-a (OPTISON) 3 mL in sodium chloride 0.9% 8 mL syringe 1-8 mL, intravenous, Once in imaging, contrast, Starting on Tue04/24/21 at 1106, For 1 dose, Intra-Procedure (CV) Contrast Given 04/24/2021 11:07 AM CDT 3 mL documented in this encounter Orders Medications Ordered That Addy ht Not Have Been Administered Count Last Ordered Date First Ordered Date perflutren protein-a (OPTISO N) 3 mL in sodium chloride 0.9% 8 mL syringe 1 04/24/2021 documented in this encounter Care Teams Computer Equipment Repairer Relationship Specialty Start Date End Date Say Low MD [address] [place] [address] PCP - General 02/15/17 documented as of this encounter
--- OUTSIDE RECORDS SUMMARY | 2024-09-22 19:05 | XMS_ITS | Encounter Summary ---
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 Procedures Transthoracic Echo Complete W Doppler/CF Jeremías Anne MD [address] [address] [place] [address] Phone: tel: fax: [facility] [address] [place] [address] Referral ID Status Reason Start Date Expiration Date Visits Re quested Visits Authorized [id number] Closed 09/14/2021 11/03/2021 1 1 FINISHER Reason for Visit * Reason Onset Date Comments ER 09/14/2021 Encounter Details Date Type Department Care Team (Late st Contact Info) Description 09/14/2021 Telephone [facility] Cardiology [address] [place] [address] Jeremías Anne MD [address] [address] [place] [address] ER Social History Tobacco Use Types Packs/Day Years [...] on file Legal Sex Male 8:04 PM TIRE FINISHER Gender Identity Male 07/10/2021 8:31 AM CDT Sexual Orientation Straight 06/12/2021 8: 44 AM CDT documented as of this encounter Miscellaneous Notes * Telephone Encounter - Kimmy Kaiser - 09/14/2021 8:53 AM CST Called patient and arranging echo with ov first or second week of October. FINISHER * Telephone Encounter - Jeremías Anne MD - 09/14/2021 8:44 AM TIRE FINISHER Mr. Newman is currently hospitalized for COVID and will MrsShayla appointment today. Can we arrange for a follow-up office and echocardiogram visit the or week of October with a same-day echocardiogram In 210 to follow-up on his ejection fraction post PCI. FINISHER * Telephone Encounter - Doris Escobedo - 09/14/2021 8:15 AM CST Pt had to cancel appt today due to still being admitted in [facility]. Pt states he had stents put in 07/[address] Shipley, due to 70% blockage on one side. Pt would like to know(since he is unable to make appt) if he needs to have ultra sound to see if he might need new pacemaker. FINISHER documented in this encounter Plan of Treatment Not on file documented as of this encounter Results * TRANSTHORACIC ECHO (TTE) COMPLETE W DOPPLER/CF WO CONTRAST (10/09/2021 1:19 PM TIRE FINISHER) Anatomical Region Laterality Modality Ultrasound 10/09/2021 12:1 5 PM TIRE FINISHER Narrative 10/09/2021 1:32 PM TIRE FINISHER [facility] [place] [address] ECHOCARDIOGRAM Patient Name: DREW NEWMAN GENE : 1940 Study Date: 10/09/2021 12:15:10 PM Gender: M Tech: [place] Ref.Provider: JEREMÍAS ANNE Height(Cm): 178 BSA: 2.26 Weight(Kg): 103.4BP: 130/68 Order Provider: JEREMÍAS ANNE Procedures: Echocardiographic Report: Transthoracic Echocardiogram with complete 2D, M-Mode, Spectral and Color Flow Doppler examination. Indications: Acute diastolic heart failure. Measurements: 2D/M Mode ? Doppler ? Measurement ?Value ?Normal Range ?Measurement ?Value ?Normal Range ? IVSd 2D ?1.52 ? [ 0.60 - 0.90 ] cm ?AV Peak Rommel ?2.2 ?[ 1.0 - 1.7 ] m/s ? LVIDd 2D ? 4.60 ? [ 4.20 - 5.90 ] cm ?AV Peak PG ? 20 ? [ 2 - 9 ] mmHg ? LVIDs 2D ? 3.16 ? [ 2.30 - 3.90 ] cm ?AV Mean PG ? 10 ? [ 2 - 4 ] mmHg ? LVPWd 2D ? 0.94 ? [ 0.60 - 1.00 ] cm ?AV VTI ? 40.0 ? cm ? Estimated EF ? 50.00 ?% ? YONY VTI ?1.3 ?[ 2.0 - 4.0 ] cm2 ? LA Dimension 2D ?3.50 ? [ 3.00 - 4.00 ] cm ?LVOT Peak Rommel ?0.98 ? [ 0.70 - 1.10 ] m/s ? AoR Diam 2D ?1.90 ? [ 2.60 - 3.70 ] cm ?LVOT Diam ?1.9 ?[ 1.7 - 2.1 ] cm ? TAPSE ?1.20 ? [ 1.60 - 3.00 ] cm ?LVOT Peak PG ? 4 ?[ 2 - 6 ] mmHg ?LVOT VTI ? 19.0 ? [ 20.0 - 30.0 ] cm ?MVA PHT ?3.5 ?[ 2.0 - 4.0 ] ms ?TR Peak Rommel ?2.6 ?[ 1.0 - 2.8 ] m/s ?TR Peak PG ? 28 ? mmHg ?RVSP ? 42.8 ? [ 10.0 - 36.0 ] mmHg ?PV Peak Rommel ?0.8 ?[ 0.4 - 0.8 ] m/s ?PV Peak PG ? 3 ?mmHg ?Lat E` Rommel ? 0.11 ? [ 0.10 - 0.15 ] m/s ?Sept E' Rommel ?0.05 ? [ 0.08 - 0.15 ] m/s ?RV S' ?0.09 ? m/s ? - Findings: Study Quality: Technically difficult study. BP: Blood pressure: 130/68 mmHg. Left Ventricle: Low normal to mildly reduced global left ventricular systolic function. Ejection Fraction is estimated at 50 %. Paradoxical septal motion consistent with IVCD or bundle branch block. Right Ventricle: Mild to moderate right ventricular dysfunction. Normal right ventricular size. Left Atrium: There is mild enlargement of the left atrium. Right Atrium: Right atrial size upper limits of normal. Atrial Septum: Normal appearing atrial septum. Cannot exclude PFO by atrial septal color Doppler interrogation. Mitral Valve: Moderate mitral valve regurgitation. Mild mitral annular calcification. Aortic Valve: Aortic valve appears tricuspid in configuration. Aortic cusps appear moderately calcified. Mild aortic stenosis. Mean gradient 10 mmHg. Mild to moderate aortic valve regurgitation. Tricuspid Valve: Mild tricuspid regurgitation. Mildly elevated RVSP. Pulmonic Valve: Pulmonic valve not well visualized. Pericardium: No significant pericardial effusion. Aortic Root and Aorta: The sinuses of Valsalva are normal. Aortic Arch: Grossly normal aortic arch. IVC: Normal appearance of the inferior vena cava. Conclusions: 1. Low normal to mildly reduced global left ventricular systolic function. Ejection Fraction is estimated at 50 %. Paradoxical septal motion consistent with IVCD or bundle branch block. 2. Mild to moderate right ventricular dysfunction. Normal right ventricular size. 3. There is mild enlargement of the left atrium. 4. Right atrial size upper limits of normal. 5. Moderate mitral valve regurgitation. Mild mitral annular calcification. 6. Aortic valve appears tricuspid in configuration. Aortic cusps appear moderately calcified. Mild aortic stenosis. Mean gradient 10 mmHg. Mild to moderate aortic valve regurgitation. 7. Mild tricuspid regurgitation. Mildly elevated RVSP. 8. Notable improvement global function from prior echo in April 2021. Electronically Signed By: Jeremías Anne MD [facility] 2021-10-09 13:32:11 TIRE FINISHER CC: CC: Procedure Note Jeremías Anne MD - 10/09/2021 [id number] [place] [address] ECHOCARDIOGRAM Patient Name: DREW NEWMAN GENEPatient ID: [id number] : [id number] Date: 10/09/2021 12:15:10 PM Gender: MAccession #: [id number] Tech: SCRef.Provider: JEREMÍAS ANNE Height(Cm): 178BSA: 2.26 Weight(Kg): 103.4BP: 130/68 Order Provider: JEREMÍAS ANNE Procedures: Echocardiographic Report: Transthoracic Echocardiogram with complete 2D, M-Mode, Spectral and ColorFlow Doppler examination. Indications: Acute diastolic heart failure. Measurements: 2D/M Mode Doppler Measurement Value Normal Range Measurement ValueNormal Range IVSd 2D 1.52 [ 0.60 - 0.90 ] cm AV Peak Rommel 2.2[ 1.0 - 1.7 ] m/s LVIDd 2D 4.60 [ 4.20 - 5.90 ] cm AV Peak PG 20[ 2 - 9 ] mmHg LVIDs 2D 3.16 [ 2.30 - 3.90 ] cm AV Mean PG 10[ 2 - 4 ] mmHg LVPWd 2D 0.94 [ 0.60 - 1.00 ] cm AV VTI 40.0cm Estimated EF 50.00 % YONY VTI 1.3[ 2.0 - 4.0 ] cm2 LA Dimension 2D 3.50 [ 3.00 - 4.00 ] cm LVOT Peak Rommel 0.98[ 0.70 - 1.10 ] m/s AoR Diam 2D 1.90 [ 2.60 - 3.70 ] cm LVOT Diam 1.9[ 1.7 - 2.1 ] cm TAPSE 1.20 [ 1.60 - 3.00 ] cm LVOT Peak PG 4[ 2 - 6 ] mmHg LVOT VTI 19.0[ 20.0 - 30.0 ] cm MVA PHT 3.5[ 2.0 - 4.0 ] ms TR Peak Rommel 2.6[ 1.0 - 2.8 ] m/s TR Peak PG 28mmHg RVSP 42.8[ 10.0 - 36.0 ] mmHg PV Peak Rommel 0.8[ 0.4 - 0.8 ] m/s PV Peak PG 3mmHg Lat E` Rommel 0.11[ 0.10 - 0.15 ] m/s Sept E' Rommel 0.05[ 0.08 - 0.15 ] m/s RV S' 0.09m/s - Findings: Study Quality: Technically difficult study. BP: Blood pressure: 130/68 mmHg. Left Ventricle: Low normal to mildly reduced global left ventricular systolic function.Ejection Fraction is estimated at 50 %. Paradoxical septal motion consistent with IVCD orbundle branch block. Right Ventricle: Mild to moderate right ventricular dysfunction. Normal right ventricularsize. Left Atrium: There is mild enlargement of the left atrium. Right Atrium: Right atrial size upper limits of normal. Atrial Septum: Normal appearing atrial septum. Cannot exclude PFO by atrial septal colorDoppler interrogation. Mitral Valve: Moderate mitral valve regurgitation. Mild mitral annular calcification. Aortic Valve: Aortic valve appears tricuspid in configuration. Aortic cusps appearmoderately calcified. Mild aortic stenosis. Mean gradient 10 mmHg. Mild to moderateaortic valve regurgitation. Tricuspid Valve: Mild tricuspid regurgitation. Mildly elevated RVSP. Pulmonic Valve: Pulmonic valve not well visualized. Pericardium: No significant pericardial effusion. Aortic Root and Aorta: The sinuses of Valsalva are normal. Aortic Arch: Grossly normal aortic arch. IVC: Normal appearance of the inferior vena cava. Conclusions: 1. Low normal to mildly reduced global left ventricular systolic function.Ejection Fraction is estimated at 50 %. Paradoxical septal motion consistent withIVCD or bundle branch block. 2. Mild to moderate right ventricular dysfunction. Normal rightventricular size. 3. There is mild enlargement of the left atrium. 4. Right atrial size upper limits of normal. 5. Moderate mitral valve regurgitation. Mild mitral annularcalcification. 6. Aortic valve appears tricuspid in configuration. Aortic cusps appearmoderately calcified. Mild aortic stenosis. Mean gradient 10 mmHg. Mild to moderateaortic valve regurgitation. 7. Mild tricuspid regurgitation. Mildly elevated RVSP. 8. Notable improvement global function from prior echo in April 2021. 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
--- OUTSIDE RECORDS SUMMARY | 2024-09-22 19:05 | XMS_ITS | Encounter Summary ---
Author Organization [facility] Address [address] [place] [address] Care Team Providers Care Piano Tuner Name Role Phone Say Low MD Primary Care Provider [phone] Reason for Referral * Hospital - Outpatient (Routine) - Closed Specialty Diagnoses / Procedures Referred By Yary silveira Referred To Contact Diagnoses Hx of CABG Paroxysmal atrial fibrillation (CMS/HCC) (HCC) Procedures Transthoracic Echo Complete W Doppler/CF Jeremías Anne MD [address] [place] [address] Phone: tel: fax: [facility] [address] [place] [address] Referral ID Status Reason Start Date Expiration Date Visits Re quested Visits Authorized [id number] Closed 03/27/2021 04/26/2022 1 1 * Cardiology (Routine) - Closed Specialty Diagnoses / Procedures Referred By Yary silveira Referred To Contact Diagnoses Pacemaker Procedures DEVICE CHECK - IN OFFICE Jeremías Anne MD [address] [place] [address] Phone: tel: fax: [facility] Referral ID Status Reason Start Date Expiration Date Visits Re quested Visits Authorized [id number] Closed 03/27/2021 04/26/2022 1 1 Reason for Visit * Reason Comments Coronary Artery Disease Encounter Details Date Type Department Care Team (Latest Contact Info) Description 03/27/2021 10:30 AM CDT Office Visit [facility] Cardiology [address] [place] [address] Jeremías Anne MD [facility] [facility] [address] [place] [address] Paroxysmal atrial fibrillation (CMS/HCC) (Primary Dx); 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 (CMS/HCC); Hx of CABG; Mobitz II; Pacemaker; Essential hypertension; 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 Social History Tobacco Use Types Packs/Day Years Used Date Smoking Tobacco: Former Cigarettes 3 22.6 1 961 - 04/29/1983 Smokeless Tobacco: Never Alcohol Use Standard Drinks/Week Comments No 0 (1 standard drink = 0.6 oz pur e alcohol) Sex and Gender Information Value Date Recorded Sex Assigned at Not on file Legal 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 Gender Identity Male 07/10/2021 8:31 AM CDT Sexual Orientation Straight 06/12/2021 8: 44 AM CDT documented as of this encounter Last Filed Vital Signs Vital Sign Reading Time Taken Comments Blood Pressure 132/68 03/27/2021 10:27 AM CDT Pulse 70 03/27/2021 10:27 AM CDT Temperature - - Respiratory Rate - - Oxygen Saturation - - Inhaled Oxygen Concentration - - Weight 107 kg (236 lb) 03/27/2021 10:27 AM CDT Height 177.8 cm (5' 10 ) 03/27/2021 10:27 AM CDT Body Mass Index 33.86 03/27/2021 10:27 AM CDT documented in this encounter Ordered Prescriptions Prescription Sig Dispense Quantity Refills Last Filled Start Date End Date rivaroxaban (XARELTO) 20 mg tabletIndications: atrial fibrillation Take 1 tablet (20 mg total) by mouth daily 30 tablet 11 03/27/2021 03/12/2022 documented in this encounter Progress Notes * Jeremías Anne MD - 03/27/2021 10:30 AM CDT Images from the original note were not included. [facility] Cardiology [address] [place] [address], [address] [place], [place], [address] Cardiology Electrophysiology Niko Echevarria, MD Wayne Davis,, MD Arslan Alcala, MD Miles Lenz, MD Patrick Avalos, MD Patrick Taylor, MD Esther Miller, ELIEZER Manzo, DO Elgin Bowles, MD Elia Jett, MD Shanda Edge, MD Gilson Eden, MD Kale Faith, DO Jeremías Anne, MD Carolann Montesinos, PREFLIGHT MECHANIC Kimmy Power, PREFLIGHT MECHANIC Xiomara Millan, PREFLIGHT MECHANIC Patient Name: Drew Newman Provider: Jeremías Anne MD : 1940 Date of Service: 03/27/2021 Referring: Maranda CHIEF COMPLAINT: Coronary Artery Disease HISTORY OF PRESENT ILLNESS: 80 y.o. male with CABG and valvular heart disease. Tolerated surgery well, had a thorough cardiac evaluation prior to the above surgery Denies any cardiac symptoms no chest pain no PND no orthopnea Have been noticing increasing AFib burden on his pacemaker interrogation report, we did discuss starting CVA prophylaxis today His biggest issues are ongoing back pain - he has had several back surgeries over the years He he is completely asymptomatic with regards to his AFib No chest pain no shortness of breath no palpitations no fatigue no PND no orthopnea I reviewed this patient's Allergies and Current Medication List and updated as needed in the medical record. I reviewed this patient's Past Medical History, Social History, and Family History and updated as needed in the medical record. MEDICATIONS: Outpatient Encounter Medications as of 03/27/2021 Medication Sig Dispense Refill ??? allopurinoL (ZYLOPRIM) 300 mg tablet Take 0.5 tablets by mouth daily 150 mg daily ??? aspirin 81 mg tablet take 1 tablet by oral route every day (Patient taking differently: Take 81mg by mouth every morning ) 0 0 ??? carvediloL (COREG) 12.5 mg tablet TAKE 1 TABLET BY MOUTH TWICE DAILY WITH MEALS 180 tablet 0 ??? cholecalciferol (VITAMIN D-3) 2,000 unit tablet Take 2,000 Units by mouth 2 (two) times a day. ??? furosemide (LASIX) 40 mg tablet Take 40 mg by mouth daily ??? losartan (COZAAR) 100 mg tablet take 1 tablet by oral route every day (Patient taking differently: Take 100 mg by mouth nightly ) 30 0 ??? zjzcctuk-sse-JK-lycopen-lutein (CENTRUM SILVER) 0.4-300-250 mg-mcg-mcg tablet 1 tab daily (Patient taking differently: Take 1 tablet by mouth every morning ) 0 0 ??? omega-3 fatty acids-fish oil (FISH OIL) 300-1,000 mg capsule 1 capsule daily (Patient taking differently: 2 (two) times a day ) 0 0 ??? omeprazole (PriLOSEC) 40 mg capsule Take 40 mg by mouth daily ??? potassium citrate ER (UROCIT-K) 10 mEq (1,080 mg) CR tablet Take 1 tablet (10 mEq total) by mouth daily 90 tablet 4 ??? simvastatin (ZOCOR) 20 mg tablet take 1 tablet by oral route every day at bedtime 0 0 ? ? SYNJARDY XR 5-1,000 mg tablet, IR & ER, biphasic 24hr Take 1,000 mg by mouth every morning 0 ??? tamsulosin (FLOMAX) 0.4 mg capsule,extended release 24hr take 1 capsule by oral route every day1/2 hour following the same meal each day (Patient taking differently: Take 0.4 mg by mouth every morning ) 0 0 ??? Trelegy Ellipta 100-62.5-25 mcg inhaler daily ??? rivaroxaban (XARELTO) 20 mg tablet Take 1 tablet (20 mg total) by mouth daily 30 tablet 11 ??? [DISCONTINUED] amLODIPine (NORVASC) 5 mg tablet take 1 tablet by oral route every day (Patient taking differently: Take 5 mg by mouth every morning ) 0 0 ??? [DISCONTINUED] diclofenac DR (VOLTAREN) 75 mg EC tablet take 1 tablet by oral route every day (Patient taking differently: Take 75 mg by mouth every morning ) 0 0 Facility-Administered Encounter Medications as of 03/27/2021 Medication Dose Route Frequency Provider Last Rate Last Admin ??? sodium chloride 0.9% flush 0.5-20 mL 0.5-20 mL intra-catheter Q8H Patrick Cruz MD ??? sodium chloride 0.9% flush 0.5-20 mL 0.5-20 mL intra-catheter PRPatrick Hong MD CARDIAC HISTORY: He had silent ischemia [...] stated in HPI above. PHYSICAL EXAM: BP 132/68 (BP Location: Right arm, Patient Position: Sitting) Pulse 70 Ht 177.8 cm (5' 10 ) Wt 107 kg (236 lb) BMI 33.86 kg/m?? General: Well appearing, No pain or [...] deficits MDM Problems Addressed: ICD-9-CM ICD-10-CM 1. Paroxysmal atrial fibrillation ([facility]) 427.31 I48.0 Transthoracic Echo Complete W Doppler/CF rivaroxaban (XARELTO) 20 mg tablet 2. 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 ([facility]) 414.05 I25.709 413.9 3. Hx of CABG V45.81 Z95.1 Transthoracic Echo Complete W Doppler/CF 4. Mobitz II 426.12 I44.1 5. Pacemaker V45.01 Z95.0 DEVICE CHECK - IN OFFICE 6. Essential hypertension 401.9 I10 7. 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 Results: Reviewed interrogation report in detail 2. New Orders: Starting Xarelto 20 mg daily, transthoracic echocardiogram ordered ASSESSMENT & PLAN DISCUSSION Diagnoses and all orders for this visit: Paroxysmal atrial fibrillation ([facility]) (Primary) #Atrial Fibrillation Management - Persistent Afib - Current Rhythm: AFib but with a paced ventricular rhythm - Rate Controlled at a paced rate of 70 - We are currently pursuing a rate/rhythm control strategy: Rate Med(s): Coreg 12.5 mg b.i.d. - Anticoagulation: [id number] Score: 4 Current Anticoagulant: None, starting Xarelto today I personally reviewed the pathophysiology of atrial fibrillation. Reviewed the nature of atrial fibrillation as of supraventricular tachycardia due to a regular heart rhythm the top 2 chambers of the heart. Explain how this can lead to issues with elevated heart rates and emphasize the need for adequate rate control. Reviewed that heart rates greater than 115 for extended periods of time can lead to cardiomyopathy,and to notify the clinic if heart rates above this range are noted while at rest. Reviewed the atrial fibrillation increases ones risk for strokes due to the risk of developing blood clots in the top chambers of the heart. Reviewed the risks and benefits taking blood thinners for stroke prophylaxis. I also explained that some patients; independent of there heart rate and blood thinner status can become symptomatic from atrial fibrillation. The symptoms can come in many forms including shortness of breath, fatigue, palpitations, , generalized malaise, lightheadedness, dizziness, or other forms.In these cases a discussion with regards to rhythm control: That is attempting measures via medications, cardioversions, and some cases ablations can be pursued for symptom management. After discussion will start Xarelto in order transthoracic echocardiogram to evaluate for any underlying structural heart disease I do have some concerns for possible pacemaker induced cardiomyopathy, if EF is low may need to consider repeat ischemic evaluation and upgrade for biventricular pacer - Transthoracic Echo Complete W Doppler/CF; Future - rivaroxaban (XARELTO) 20 mg tablet; Take 1 tablet (20 mg total) by mouth daily 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 ([facility]) Reviewed optimized ongoing medical management for coronary artery disease 1. Antiplatelet therapy: Current regimen includes asa 81mg 2. Lipid therapy: current regimen includes simvastatin 3. Discussed importance of tobacco cessation. Patient is a No 4. Blood pressure management. Current blood pressure is BP 132/68 (BP Location: Right arm, Patient Position: Sitting) Pulse 70 Ht 177.8 cm (5' 10 ) Wt 107 kg (236 lb) BMI 33.86 kg/m?? This represents adequate control. 5. Reviewed importance adequate glycemic control. 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 Photogrammetric Engineer This note was dictated in part using [employer] voice recognition software. Despite careful review of this note, variances in spelling and vocabulary are possible and unintentional. documented in this encounter Plan of Treatment Not on file documented as of this encounter Results * TRANSTHORACIC ECHO (TTE) COMPLETE W DOPPLER/CF W CONTRAST (04/24/2021 1:41 PM CDT) Anatomical Region Laterality Modality Ultrasound 04/24/2021 9:58 AM CDT Narrative 04/25/2021 1:08 PM CDT [facility] [address] [place] [address] ECHOCARDIOGRAM Patient Name: DREW NEWMAN : 1940 [...] fibrillation. Electronically Signed By: Jeremías Anne MD [facility] 2021-04-25 13:08:13 CDT CC: CC: Procedure Note Jeremías Anne MD - 04/25/2021 [facility] [address] [place] [address] ECHOCARDIOGRAM Patient Name: DREW NEWMANPatient ID: [id number] : [id number] Date: 04/24/2021 9:58:37 AM Gender: MAccession #: [id number] Tech: WFLocation: OPT Ref.Provider: JEREMÍAS ANNEHeight(Cm): 178 [...] fibrillation. Electronically Signed By: Jeremías Anne MD [facility] 2021-04-25 13:08:13 CDT CC: CC: Jeremías Anne MD CV ECHO PROCEDURES Sho l Result * DEVICE CHECK - IN OFFICE (03/27/2021 10:22 AM CDT) Anatomical Region Laterality Modality Other Narrative 03/27/2021 12:21 PM CDT This patient received a [employer] Pacemaker. ??They had a routine [employer] in office device interrogation on 03/27/2021. Device implant indications: ??Complete heart block ?? Interrogation of the patient's device demonstrates the following: Presenting EGM: ??AFib with RV pace @ 80 bpm Lead Measurements Right Atrium Right Ventricle Sensitivity (mV) 6.8 mV 21.1 mV Impedence (Ohms) 464 ohms 458 ohms Pace Threshold Not done V @ ms 0.6 V @ 0.40 ms Pacing % 11 % 100 % Battery Status: ??3.5 years years to SOFI Episodes last 90 days/Comments: AF Hoffman 8 %, longest duration patient is currently been in atrial fibrillation 100% of the time since February 24, 2021. Ventricular rates are well controlled is the patient is 100% RV paced. NORMAL DEVICE FUNCTION PROGRAMMED Anti-coagulant(s): ??Aspirin 81 mg Anti-arrhythmic(s): ??Coreg 12.5 mg twice daily, Norvasc 5 mg Plan: 1) normal [employer] Pacemaker evaluation 2) [employer] remote transmission scheduled in 3 months. Bhavani White R.N. 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 Pacemaker Cardiac pacemaker in situ Cardiac pacemaker in situ Hx of CABG Postsurgical aortocoronary bypass status Paroxysmal atrial fibrillation (CMS/HCC) (HCC) Atrial fibrillation documented in this encounter Discontinued Medications Medication Sig Discontinue Reason Start Date End Da te diclofenac DR (VOLTAREN) 75 mg EC tablet take 1 tablet by oral route every day Therapy completed 09/10/2015 03/27/2021 amLODIPine (NORVASC) 5 mg tablet take 1 tablet by oral route every day Therapy completed 09/23/2016 03/27/2021 documented as of this encounter Care Teams Piano Tuner Relationship Specialty Start Date End Date Say Low MD [address] [place] [address] PCP - General 02/15/17 documented as of this encounter
--- OUTSIDE RECORDS SUMMARY | 2024-09-22 19:05 | XMS_ITS | Encounter Summary ---
Author Organization [facility] Address [address] [place] [address] Care Team Providers Care Netting Weaver Name Role Phone Say Low MD Primary Care Provider [phone] Reason for Visit * Reason Onset Date Comments Cath question 06/10/2021 Encounter Details Date Type Department Care Team (Late st Contact Info) Description 06/10/2021 Telephone [facility] Cardiology [address] [place] [address] Troy Shipley MD [address] [place] [address] Cath question Social History Tobacco Use Types Packs/Day Years Used Date Smoking Tobacco: Former Cigarettes 3 22.6 1 961 - 04/29/1983 Smokeless Tobacco: Never Alcohol Use Standard Drinks/Week Comments No 0 (1 standard drink = 0.6 oz pur e alcohol) Sex and Gender Information Value Date Recorded Sex Assigned at Not on file 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 Is that acceptable to the patient? * Telephone Encounter - Moises Dumont - 06/10/2021 9:25 AM CDT Pt is scheduled for a cath with Dr. Shipley on 06/18. Pt has some questions and concerns, and wouldlike a chance to get to know Dr. Shipley prior to the cath. Pt is a Dr. Anne pt and understands he can ask him questions , however would rather speak to Dr. Shipley since he is performing the procedure. Pt wanting to know will he get the chance to meet Dr. Shipley the day of procedure? documented in this encounter Plan of Treatment Not on file documented as of this encounter Visit Diagnoses Not on filedocumented in this encounter Care Teams Netting Weaver Relationship Specialty Start Date End Date Say Low MD [address] [facility] [address] [place] [address] PCP - General 02/15/17 documented as of this encounter
--- OUTSIDE RECORDS SUMMARY | 2024-09-22 19:05 | XMS_ITS | Encounter Summary ---
Author Organization [facility] Address [address] [place] [address] Care Team Providers Care Pmo Analyst Name Role Phone Say Low MD Primary Care Provider [phone] Encounter Details Date Type Department Care Team (Late st Contact Info) Description 09/16/2021 Telephone [facility] Cardiology [address] [place] [address] Shiva Anne MD [address] [facility] [facility] [address] [place] [address] Social History Tobacco Use Types Packs/Day Years [...] on file Legal 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 He had recent stent placment and has afib Clopidogrel (plavix) 75mg and xarelto 20mg daily is the appropriate regimen for him. NO aspirin SCRIBING MACHINE MECHANIC * Telephone Encounter - Donna Hollis - 09/16/2021 1:19 PM CST Rcdv call from pharm requesting to know if you are aware that pt is on Xarelto and was on Plavix Please advise SCRIBING MACHINE MECHANIC documented in this encounter Plan of Treatment Not on file documented as of this encounter Visit Diagnoses Not on filedocumented in this encounter Care Teams Pmo Analyst Relationship Specialty Start Date End Date Say Low MD [address] [facility] [address] [place] [address] PCP - General 02/15/17 documented as of this encounter
--- OUTSIDE RECORDS SUMMARY | 2024-09-22 19:05 | XMS_ITS | Encounter Summary ---
Author Organization [facility] Address [address] [place] [address] Care Team Providers Care Group Leader Wafer Polishing Name Role Phone Say Low MD Primary Care Provider [phone] Reason for Visit * Reason Onset Date Comments med question 06/29/2021 Encounter Details Date Type Department Care Team (Late st Contact Info) Description 06/29/[address] 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 Patient is calling to make sure that this will not interfere with his PCI sched 07/13/21.Patient is requesting Dr Shipley confirmation documented in this encounter Plan of Treatment Not on file documented as of this encounter Visit Diagnoses Not on filedocumented in this encounter Care Teams Group Leader Wafer Polishing Relationship Specialty Start Date End Date Say Low MD [address] [facility] [address] [place] [address] PCP - General 02/15/17 documented as of this encounter
--- OUTSIDE RECORDS SUMMARY | 2024-09-22 19:05 | XMS_ITS | Encounter Summary ---
Author Organization [facility] Address [address] [place] [address] Care Team Providers Care Betting Agency Counter Clerk Name Role Phone Say Low MD Primary Care Provider [phone] Reason for Visit * Reason Onset Date Comments clearance and med hold endoscopy 11/10/2021 Encounter Details Date Type Department Care Team (Late st Contact Info) Description 11/10/2021 Telephone [facility] Cardiology [address] [place] [address] Shiva Anne MD [address] [place] [address] clearance and med hold endoscopy Social History Tobacco Use Types Packs/Day Years [...] on file Legal Sex Male 8: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 Pt states there is no urgency and he is nervous because the stent hasnt been placed very long. Pt taking medicine at this time. Will call our office back when it gets closer to a year out from his stent for clearance D ASSEMBLY SUPERVISOR * Telephone Encounter - Kimmy Kaiser - 11/10/2021 1:24 PM CST Called Nurse at Endoscopy center and lvm with s response. D ASSEMBLY SUPERVISOR * Telephone Encounter - Shiva Anne MD - 11/10/2021 1:15 PM FIELD [employer]SEMBLY SUPERVISOR He had recent PCI in July so this ideally should not be done unless it is considered an urgent procedure. Therefore need information from the physician ordering the endoscopy as to the nature of the urgentissue, I think would best reach out to that office and see when the physician would have time to speak with me. D ASSEMBLY SUPERVISOR * Telephone Encounter - Kimmy Kaiser - 11/10/2021 10:16 AM FIELD ASSEMBLY SUPERVISOR Received fax for clearance and med hold from [facility] scheduled for 11/17/21.Plavix 4 days prior and Xarelto 2 days prior. Requesting recent records with faxed clearance. Form attached. D ASSEMBLY SUPERVISOR documented in this encounter Plan of Treatment Not on file documented as of this encounter Visit Diagnoses Not on filedocumented in this encounter Care Teams Betting Agency Counter Clerk Relationship Specialty Start Date End Date Say Low MD [address] [facility] [address] [place] [address] PCP - General 02/15/17 documented as of this encounter
--- OUTSIDE RECORDS SUMMARY | 2024-09-22 19:05 | XMS_ITS | Encounter Summary ---
Author Organization [facility] Healthcare Address [address] [place] [address] Care Team Providers Care Tester Compressed Gases Name Role Phone Say Low MD Primary Care Provider [phone] Encounter Details Date Type Department Care Team (Late st Contact Info) Description 06/18/2021 10:00 AM CDT - 06/18/2021 11:30 AM CDT Surgery [facility] [address] [place] [address] Troy Shipley MD [address] [facility] [address] [place] [address] LEFT HEART CATHETERIZATION WITH CORONARY ANGIOGRAPHY GRAFT AND WITH OR WITHOUT LEFT VENTRICULOGRAM [id number] Surgery Details Date/Time Status Location OR Service Patient Class Case Class Case Type Trauma Case? 06/18/2021 10:00 AM Posted [facility] CARDIAC VIDEO AND SOUND RECORDER CCL/ EP B Cardiovascular Outpatient Elective Panel 1 Procedure LRB Anes Op Region Wound Class Comments LEFT HEART CATHETERIZATION W ITH CORONARY ANGIOGRAPHY GRAFT AND WITH OR WITHOUT LEFT VENTRICULOGRAM 32555 N/A Conscious Sedation Coronary Flow Velocity (CFR) / Instantaneous Flow Velocity (IFR), 1st Vessel N/A Conscious Sedation Surgeon Surgeon Role Service Panel Troy Shipley MD Primary Cardiovascular 1 Case Notes ORDERS ENTEREDMEDICARE/BS NPR documented in this encounter Social History Tobacco Use Types Packs/Day Years Used Date Smoking Tobacco: Former Cigarettes 3 22.6 1 961 - 04/29/1983 Smokeless Tobacco: Never Alcohol Use Standard Drinks/Week Comments No 0 (1 standard drink = 0.6 oz pur e alcohol) Sex and Gender Information Value Date Recorded Sex Assigned at Not on file 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 Gender Identity Male 07/10/2021 8:31 AM CDT Sexual Orientation Straight 06/12/2021 8: 44 AM CDT documented as of this encounter Last Filed Vital Signs Vital Sign Reading Time Taken Comments Blood Pressure 173/82 06/18/2021 9:58 AM CDT Pulse 75 06/18/2021 9:58 AM CDT Temperature 37.2 ??C (98.9 ??F) 06/18/2021 9:58 AM CD T Respiratory Rate 23 06/18/2021 9:58 AM CDT Oxygen Saturation 100% 06/18/2021 9:58 AM CDT Inhaled Oxygen Concentration - - Weight 100.5 kg (221 lb 8 oz) 06/18/2021 9:58 AM CDT Height 175.3 cm (5' 9 ) 06/18/2021 9:58 AM CDT Body Mass Index 32.71 06/18/2021 9:58 AM CDT documented in this encounter Discharge Instructions * Discharge Instructions* Greta Rodgers, RADHA - 06/18/2021 5:47 PM CDT Cardiac Laboratory [facility] [place], [place] [address] [facility] Discharge Instructions---Angiogram MEDICATIONS [] Do not take Metformin or medications containing Metformin (for example: Glucophage, Glyburide orGlucovance) for the next 48 hours. Resume taking your medication on [] Home Medications Returned [x] Discharge Medication Reconciliation Reviewed [] Prescriptions sent home with patient and instructions given for usage [] ANTIBIOTICS What you Should Know Information provided and reviewed. [] Your physician has prescribed Aspirin and an anti-platelet therapy medication such as Plavix, Brilinta, Effient. - These medications act as a blood thinner. Take the medications as your physician has prescribed; this will help prevent a blood clot from forming in your artery. - Do not stop taking these medications for any reason without discussing with your loan servicing officer first. - These medications may make you bruise or bleed easier than normal. PROCEDURE SITE CARE [x] You may shower in 24 hours. Remove the bandage prior to showering. [x] DO NOT submerge your incision site in water. This includes pools, tub baths, lakes, avery, ponds and hot tubs. You may shower only for the next 5 days (no baths). [x] Gently clean the procedure site using only soap and water. [x] DO NOT apply any kind of powder or lotion to the site [x] Make sure to dry the site thoroughly as wetness can lead to infection. DIET [x] Increase your intake of fluids (non-alcoholic). Drink 1/2 liter of fluids over the next 12 hours. [x] Resume home diet [] Special diet Instructed by [employer] ACTIVITY You have been given medications which helped make you comfortable during your procedure. The relaxing effects of these medications may continue for the rest of the day. For your safety: [x] Do not drive or operate hazardous machinery for the next 24 hours [x] Do not make important personal or business decision or sign legal documentation for the next 24hours. [x] Resume normal activity in 5 days. [x] No heavy pushing, pulling, or lifting more than 10 pounds for the next five days or until the procedure site has been healed. [x] Refrain from vigorous stair climbing or walking more than two blocks for the next five days. [x] No sexual activity for the next five days. SPECIAL INSTRUCTIONS After your procedure, it is normal to have mild soreness/tenderness at the procedure site. Some discoloration and /or bruising may occur at the puncture site region over the next 2-3 days Please notify your physician immediately if you develop any of the following: [x] Significant bleeding at the procedure site. If bleeding occurs, lie down, apply firm pressure to the site and call 911. [x] The leg on which your procedure was performed begins to swell, feel numb, weak or cold [x] Signs of infection which may include: - fever or chills - drainage from the procedure site - redness/warm to the touch at the procedure site [x] You start having signs of a heart attack which may include: - pain in your chest, arms, jaw or back -trouble catching your breath -feeling sick to your stomach -feeling sweaty FOLLOW UP CARE [] Call physician's office for appointment [] Appointment scheduled for with Additional Instructions: I understand and have received a copy of my discharge instructions Patient/Family Signature: Staff Signature/Title: Date and Time: documented in this encounter Medications at Time [...] same meal each day 0 0 09/10/2015 carvediloL (COREG) 25 mg tablet Take 25 mg by mouth every 12 (twelve) hours 04/01/2021 2 clopidogreL (PLAVIX) 75 mg tablet Take 1 tablet (75 mg total) by mouth daily 90 tablet 3 06/18/2021 2 furosemide (LASIX) 40 mg tablet Take 40 mg by mouth daily 12/13/2019 2 losartan (COZAAR) 100 mg tablet take 1 tablet by oral route every day 30 0 11/17/2015 4 xllufjiu-uuz-PP-ly copen-lutein (CENTRUM SILVER) 0.4-300-250 mg-mcg-mcg tablet 1 [...] 08/15/2020 2 documented as of this encounter Ordered Prescriptions Prescription Sig Dispense Quantity Refills Last Filled Start Date End Date clopidogreL (PLAVIX) 75 mg tablet Take 1 tablet (75 mg total) by mouth daily 90 tablet 3 06/18/2021 06/08/2022 documented in this encounter Discharge Disposition Disposition Code Departure Means Destination Discharge to home or self care documented in this encounter H&P Notes * Troy Shipley MD - 06/18/2021 9:39 AM CDT General H&P Subjective Patient is a 81 y.o. male with chief complaint of heart failure HPI: 81M with remote CABG, AF, PPM found to have worsening LV function, referred for [facility] Past Medical History: Diagnosis Date ??? Arthritis ??? CHF (congestive heart failure) (CMS/HCC) (HCC) ??? Chronic kidney disease ??? Congestive heart failure (CHF) (CMS/HCC) (HCC) ??? COPD (chronic obstructive pulmonary disease) (CMS/HCC) (HCC) ??? Diabetes mellitus (HCC) ??? HX OTHER MEDICAL leg/ ankle surgery due to fall of a roof (2010) ??? Hyperlipidemia ??? Hypertension ??? Kidney stone ??? Urolithiasis Past Surgical History: Procedure Laterality Date ??? BACK SURGERY ??? CARDIAC CATHETERIZATION ??? CARDIAC PACEMAKER PLACEMENT Pacemaker Placement - (Added by ANGEL Conv) ??? CORONARY ARTERY BYPASS GRAFT 2003 saphenous vein to the 1st obtuse marginal, 2nd obtuse marginal, and posterior descending branch of the right coronary artery ??? LITHOTRIPSY ??? REPLACEMENT TOTAL KNEE Right 12/2020 ??? TIBIA FRACTURE SURGERY 2011 r/t trauma ??? UPPER GASTROINTESTINAL ENDOSCOPY Medications Prior to Admission Medication Sig Dispense Refill Last Dose ??? allopurinoL (ZYLOPRIM) 300 mg tablet Take 0.5 tablets by mouth daily 150 mg daily ??? aspirin 81 mg tablet take 1 tablet by oral route every day (Patient taking differently: Take 81mg by mouth every morning ) 0 0 ??? carvediloL (COREG) 25 mg tablet Take 25 mg by mouth every 12 (twelve) hours ??? cholecalciferol (VITAMIN D-3) 2,000 unit tablet Take 2,000 Units by mouth 2 (two) times a day. ??? furosemide (LASIX) 40 mg tablet Take 40 mg by mouth daily ??? losartan (COZAAR) 100 mg tablet take 1 tablet by oral route every day (Patient taking differently: Take 100 mg by mouth nightly ) 30 0 ??? ngrfxtbj-vlh-FI-lycopen-lutein (CENTRUM SILVER) 0.4-300-250 mg-mcg-mcg tablet 1 tab [...] by mouth daily 90 tablet 4 ??? rivaroxaban (XARELTO) 20 mg tablet Take 1 tablet (20 mg total) by mouth daily 30 tablet 11 ??? simvastatin (ZOCOR) 20 mg tablet take [...] ??? Trelegy Ellipta 100-62.5-25 mcg inhaler daily No Known Allergies Social History Tobacco Use ??? Smoking status: Former Smoker Packs/day: 3.00 Start date: 1960 Quit date: 04/29/1983 Years since quittin.1 ??? Smokeless tobacco: Never Used Substance Use Topics ??? Alcohol use: No Family History Problem Relation Age of Onset ??? Alzheimer's disease Mother Alzheimer's disease; ??? Stroke Mother ??? Arthritis Mother ??? Diabetes Mother ??? Hypertension Mother ??? Gout Mother ??? Heart attack Other Family history of Myocardial infarction; Cause of : Family history of Myocardial infarction ??? Heart attack Father ??? Cancer Father ??? Heart disease Father ??? Hypertension Father Review of Systems Constitutional: Negative. HENT: Negative for postnasal drip. Respiratory: Positive for shortness of breath. Objective Vitals: Arrival Vitals Temp Pulse Resp BP SpO2 Temp src Heart Rate Source Patient Position BP Location FiO2 (%) 24hr Min/Max: No data recorded Most Recent : There were no vitals filed for this visit. No intake/output data recorded. No intake/output data recorded. Physical Exam NAD CTAB No MRG Lab/Radiology/Diagnostic Review: Laboratory review: wnl Assessment Principal Problem: Coronary artery disease involving coronary bypass graft of [place] heart with angina pectoris ([facility]/HCC) (HCC) Plan Proceed with [facility] documented in this encounter Miscellaneous Notes * Pre-Sedation Documentation - Troy Shipley MD - 06/18/2021 9:40 AM CDT Sedation Plan ASA 3 - Severe systemic disease Mallampati class: II. Risks, benefits, and alternatives discussed with patient. documented in this encounter Plan of Treatment Not on file documented as of this encounter Procedures Procedure Name Priority Date/Time Associated Diagnosis Comments POCT ACTIVATED CLOTTING TIME, LOW RANGE Routine 06/18/2021 4:25 PM CDT POCT ACTIVATED CLOTTING TIME, LOW RANGE Routine 06/18/2021 3:56 PM CDT POCT ACTIVATED CLOTTING TIME, LOW RANGE Routine 06/18/2021 3:10 PM CDT POCT ACTIVATED CLOTTING TIME, LOW RANGE Routine 06/18/2021 2:15 PM CDT POCT ACTIVATED CLOTTING TIME, LOW RANGE Routine 06/18/2021 1:25 PM CDT ECG 12-LEAD Routine 06/18/2021 12:25 PM CDT CORONARY FLOW VELOCITY (CFR) / INSTATANEOUS FLOW VELOCITY (IFR), 1ST VESSEL Routine 06/18/2021 11:58 AM CDT Coronary artery disease involving coronary bypass graft of [place] heart with angina pectoris ([facility]/HCC) (HCC) LEFT HEART CATHETERIZATION WITH CORONARY ANGIOGRAPHY GRAFT AND LEFT VENTRICULOGRAM Routine 06/18/2021 11:58 AM CDT Coronary artery disease involving coronary bypass graft of [place] heart with angina pectoris (CMS/[facility]) (HCC) POCT ACTIVATED CLOTTING TIME, HIGH RANGE Routine 06/18/2021 11:37 AM CDT POCT ACTIVATED CLOTTING TIME, HIGH RANGE Routine 06/18/2021 11:28 AM CDT ECG 12-LEAD STAT 06/18/2021 9:34 AM CDT documented in this encounter Results * POCT Activated clotting time, low range (06/18/2021 4:25 PM CDT) [facility] Signature ACT 148 123 - 168 sec [facility] Blood 06/18/2021 4:25 PM CDT 06/18/2021 4:25 PM CDT us Troy Shipley MD LAB POCT ORDERABLES - DE VICE Final Result Performing Organization Address [facility] Co de Phone Number [facility] [address] [facility] [employer] [place], [place] [phone] * (ABNORMAL) POCT Activated clotting time, low range (06/18/2021 3:56 PM CDT) ACT 199(H) 123 - 168 sec [facility] Blood 06/18/2021 3:56 PM CDT 06/18/2021 3:56 PM CDT us Troy Shipley MD LAB POCT ORDERABLES - DE VICE Final Result Performing Organization Address [facility] Co de Phone Number [facility] [address] [facility] [employer] [place], [place] [phone] * (ABNORMAL) POCT Activated clotting time, low range (06/18/2021 3:10 PM CDT) ACT 229(H) 123 - 168 sec [facility] Blood 06/18/2021 3:10 PM CDT 06/18/2021 3:10 PM CDT us Troy Shipley MD LAB POCT ORDERABLES - DE VICE Final Result Performing Organization Address [facility] Co de Phone Number [facility] [address] [facility] [employer] [place], [place] [phone] * (ABNORMAL) POCT Activated clotting time, low range (06/18/2021 2:15 PM CDT) ACT 214(H) 123 - 168 sec [facility] Blood 06/18/2021 2:15 PM CDT 06/18/2021 2:15 PM CDT us Troy Shipley MD LAB POCT ORDERABLES - DE VICE Final Result Performing Organization Address [facility] de Phone Number [facility] [address] [facility] [place] [address] * (ABNORMAL) POCT Activated clotting time, low range (06/18/2021 1:25 PM CDT) ACT 248(H) 123 - 168 sec [facility] Blood 06/18/2021 1:25 PM CDT 06/18/2021 1:25 PM CDT us Troy Shipley MD LAB POCT ORDERABLES - DE VICE Final Result Performing Organization Address [facility] Phone Number [facility] [address] [place] [address] * ECG 12 lead (06/18/2021 12:25 PM CDT) 06/18/2021 12:2 5 PM CDT Narrative [facility] - 06/18/2021 9:34 PM CDT Vent Rate: 69 bpm RR Interval: 865 msec MT Interval: 0 msec QRS Duration: 178 msec QT Interval: 452 msec QTC Interval: 471 msec P-R-T [place]: 0 - 96 - 262 degrees ELECTRONIC VENTRICULAR PACEMAKER ABNORMAL RHYTHM ECG Electronically Signed By: Quentin Manzo DO [facility] us Troy Shipley MD ECG ORDERABLES Final Re sult Performing Organization Address [facility] [place] [facility] Phone Number [facility] rVue [facility] * LEFT HEART CATHETERIZATION WITH CORONARY ANGIOGRAPHY GRAFT AND LEFT VENTRICULOGRAM, CORONARY FLOW VELOCITY (CFR) / INSTATANEOUS FLOW VELOCITY (IFR), 1ST VESSEL (06/18/2021 11:58 AM CDT) Anatomical Region Laterality Modality X-Ray Angiograph y Narrative 06/18/2021 1:17 PM CDT [facility] Cardiology ?? [facility] [facility], [id number] [place], [place], [address] ?? Left Heart Catheterization Procedure Report 81 year old male with CABG in 2003, AF, PPM, DM2, and recent diagnosis systolic HF referred for left heart catheterization. Access:6F Right Femoral Artery Catheter:AL2 (neither JL 4, JL 5 nor EBU 4 would engage left main), JR 4 and Pigtail Injection:Left Main Trunk, Right Coronary Artery, Left Ventricle and SVG Closure:manual compression Anticoagulation:[id number] Heparin Air Kerma:3914 mGy Fluoro time:19.4 min Contrast:196 ml Optiray Sedation:3 mg Versed, 100 mcg fentanyl Procedural details: After risks, benefits, and alternatives to the procedure were explained to the patient, they agreed to proceed. ??After signing informed consent the patient was brought to the cardiac catheterization laboratory. ??There were prepped and draped in sterile fashion. A 6 Vietnamese sheath was inserted in the Right Femoral Artery using the modified Seldinger technique with ultrasound guidance. ??We then performed selective coronary and bypass graft angiography using various catheters. ??We then crossed the aortic valve and measured pressures using a pigtail catheter, and a ventriculogram was performed. IFR of the LAD was performed. At completion of the case manual compression was used to achieve hemostasis. ??The patient tolerated the procedure well with no complaints and was transferred to the floor for further monitoring and care. Coronary Findings: LMT: Moderately calcified with 10-20% stenosis LAD: Large caliber vessel giving rise to one diagonal branch before terminating at the apex. There is a 70% ostial lesion followed by a long segment of 50-60% disease in the proximal LAD, both of which are heavily calcified. These lesions are hemodynamically significant by IFR testing (0.82). LCX: The non-dominant LCx is proximally occluded. A large OM2 and medium OM3 branch are supplied by a patent SVG with end-to-side anastomosis in proximal OM2. Minimal disease noted in these [place] vessels. A portion of the high lateral wall with relative paucity of blood supply likely corresponds to territory of an occluded OM1, which based on CABG op report was the target of the occluded SVG. RCA: Large caliber, dominant vessel giving rise to PDA and rPL branches. The mid-RCA is occluded, and the distal RCA and its branches are supplied by a patent SVG. Graft Findings: SVG-OM1: stump occluded SVG-OM2: widely patient without stenosis SVG-PDA: widely patent with 20% mid graft body stenosis Hemodynamic Findings: LV: 158/19 mm Hg Ao: 147/68 mm Hg Ventriculography WALTER ventriculogram demonstrates moderate global left ventricular function (LVEF 30-35%) with global hypokinesis. A region of aneurysmal outpouching is present in the mid anterolateral wall. Instantaneous flow reserve (IFR) A 6 Vietnamese AL 2 guide catheter was used to intubate the left coronary ostium. Instantaneous flow reserve was measured across the ostial and proximal LAD lesions using the Omni wire. IFR = 0.82 after administration of intracoronary nitroglycerin This is a hemodynamically significant stenosis. For reference, IFR of 0-0.89 is considered hemodynamically significant, while IFR of 0.90-1 is considered not significant. Conclusions: 1) Severe calcific 70% disease of the ostial-proximal LAD, which is hemodynamically significant by flow reserve testing (IFR 0.82). 2) Patent SVGs to PDA and large OM2/OM3 system. 3) Occluded SVG-OM1 4) Mildly elevated left-sided filling pressures (LV-EDP 19 mmHg). 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 6) Moderate diffuse calcification of the right ileofemoral arterial system, but free of significant stenosis. Recommendations: - Recommend PCI with atherectomy of the proximal LAD (not performed today due to significant contrast and radiation use to complete diagnostic procedure) - Optimal medical therapy for CAD per current ACC/AHA guidelines - Dc aspirin and Rx clopidogrel 75 mg daily in addition to Xarelto prior to PCI - Manual compression of right femoral access site, bedrest x6 hours Troy Shipley MD 06/18/2021 12:36 PM us Shiva Anne MD CV CARDIAC CATH PROCEDU RES Final Result * (ABNORMAL) POC Activated Clotting Time, High Range (06/18/2021 11:37 AM CDT) ACT 263(H) 87 - 138 sec [facility] Blood 06/18/2021 11:3 7 AM CDT 06/18/2021 11:37 AM CDT us Troy Shipley MD LAB BLOOD ORDERABLES Fin al Result Performing Organization Address [facility] Co de Phone Number [facility] [address] [facility] [employer] [place], [place] [phone] * (ABNORMAL) POC Activated Clotting Time, High Range (06/18/2021 11:28 AM CDT) ACT 192(H) 87 - 138 sec [facility] Blood 06/18/2021 11:2 8 AM CDT 06/18/2021 11:28 AM CDT Troy Shipley MD LAB BLOOD ORDERABLES Fin al Result Performing Organization Address [facility] de Phone Number [facility] [address] [place] [address] * ECG 12 lead (06/18/2021 9:34 AM CDT) 06/18/2021 9:34 AM CDT Narrative [facility] - 06/18/2021 9:38 PM CDT Vent Rate: 77 bpm RR Interval: 776 msec MT Interval: 0 msec QRS Duration: 192 msec QT Interval: 453 msec QTC Interval: 485 msec P-R-T [place]: 0 - 114 - -20 degrees ATRIAL FIBRILLATION WITH ??VENTRICULAR PREMATURE COMPLEXES RIGHT BUNDLE BRANCH BLOCK LEFT POSTERIOR FASCICULAR BLOCK ABNORMAL ECG Electronically Signed By: Quentin Manzo DO [facility] us Troy Shipley MD ECG ORDERABLES Final Re sult [facility] documented in this encounter Visit Diagnoses Diagnosis Coronary artery disease involving coronary bypass graft of [place] heart with angina pectoris (CMS/HCC) (HCC)- Primary Coronary artery disease involving coronary bypass graft of [place] heart with angina pectoris (CMS/HCC) (HCC) documented in this encounter Admitting Diagnoses Diagnosis Coronary artery disease involving coronary bypass graft of [place] heart with angina pectoris (CMS/HCC) (HCC) documented in this encounter Administered Medications Inactive Administered Medications - up to 3 most recent administrations Medication Order MAR Action Action Date Dose Rate Site fentaNYL (SUBLIMAZE) preservative free injection As needed, Starting on Lisa 06/18/21 at 1034, Intra-Procedure (CV) Given 06/18/2021 11:35 AM CDT 25 mcg Given 06/18/2021 11:27 AM CDT 25 mcg Given 06/18/2021 10:34 AM CDT 50 mcg heparin 1,000 unit/mL injection As needed, Starting on Lisa 06/18/21 at 1050, Intra-Procedure (CV) Given 06/18/2021 11:33 AM CDT 5,000 Units Given 06/18/2021 11:27 AM CDT 7,000 Units Given 06/18/2021 10:50 AM CDT 3,000 Units heparin in 0.9% sodium chloride 1,000 units/500 mL (2 unit/mL) infusion (premix) As needed, Starting on Lisa 06/18/21 at 1028, Intra-Procedure (CV) Given 06/18/2021 10:28 AM CDT 2,000 mL ioversoL (OPTIRAY 350) injection As needed, Starting on Lisa 06/18/21 at 1206, Intra-Procedure (CV) Given 06/18/2021 12:06 PM CDT 196 mL lidocaine (XYLOCAINE) 20 mg/mL (2 %) injection As needed, Starting on Lisa 06/18/21 at 1036, Intra-Procedure (CV), Indications: Administration of Local AnesthesiaIndications:Administrati on of Local Anesthesia Given 06/18/2021 10:36 AM CDT 10 mL Right Groin midazolam (VERSED) 1 mg/mL preservative free injection Administer over 2 Minutes, As needed, Starting on Lisa 06/18/21 at 1034, Intra-Procedure (CV) Given 06/18/2021 11:35 AM CDT 1 mg Given 06/18/2021 11:27 AM CDT 1 mg Given 06/18/2021 10:34 AM CDT 1 mg nitroglycerin injection 100 mcg/mL in D5W 10 mL As needed, Starting on Lisa 06/18/21 at 1139, Intra-Procedure (CV) Given 06/18/2021 11:39 AM CDT 200 mcg protamine injection 20 mg 20 mg, intravenous, Once, On Lisa 06/18/21 at 1645, For 1 dose, Rate not to exceed 50 mg over 10 minutes, Indications: Heparin ToxicityIndications:Heparin Toxicity Given 06/18/2021 4:19 PM CDT 20 mg sodium chloride 0.9% infusion 15 mL/hr, intravenous, Continuous, Starting on Lisa 06/18/21 at 1015, Pre-Procedure (CV) sodium chloride 0.9% infusion Continuous PRN, Starting on Lisa 06/18/21 at 1157, Intra-Procedure (CV) New Bag 06/18/2021 11:57 AM CDT 300 mL documented in this encounter Discontinued Medications Medication Sig Discontinue Reason Start Date End Da te aspirin 81 mg tablet take 1 tablet by oral route every day Stop Taking at Discharge 11/17/2015 06/18/2021 documented as of this encounter Active and Recently Administered Medications Times are shown in CDT. Scheduled Medication Order 06/16/2021 06/17/2021 06/18/2021 protamine injection 20 mg (COMPLETED)(Linked Group 1) 20 mg, intravenous, Once, On Lisa 06/18/21 at 1645, For 1 dose, Rate not to exceed 50 mg over 10 minutes, Indications: Heparin Toxicity 1619 (Given - Provid er: Greta Rodgers, RN) protamine injection 20 mg(Linked Group 1) 20 mg, intravenous, Once, On Lisa 06/18/21 at 1645, For 1 dose, Rate not to exceed 50 mg over 10 minutes, Indications: Heparin Toxicity 1645 (Due) Continuous Medication Order 06/16/2021 06/17/2021 06/18/2021 sodium chloride 0.9% infusion 15 mL/hr, intravenous, Continuous, Starting on Lisa 06/18/21 at 1015, Pre-Procedure (CV) 1015 (Due) PRN Medication Order 06/16/2021 06/17/2021 06/18/2021 fentaNYL (SUBLIMAZE) preservative free injection (CANCELED) As needed, Starting on Lisa 06/18/21 at 1034, Intra-Procedure (CV) 1034 (Given - Provid er: Michaela Tsang RN)1127 (Given - Provider: Michaela Tsang RN)1135 (Given - Provider: Michaela Tsang RN) heparin 1,000 unit/mL injection (CANCELED) As needed, Starting on Lisa 06/18/21 at 1050, Intra-Procedure (CV) 1050 (Given - Provid er: Michaela Tsang RN)1127 (Given - Provider: Michaela Tsang RN)1133 (Given - Provider: Michaela Tsang RN) heparin in 0.9% sodium chloride 1,000 units/500 mL (2 unit/mL) infusion (premix) (CANCELED) As needed, Starting on Lisa 06/18/21 at 1028, Intra-Procedure (CV) 1028 (Given - Provid er: Troy Shipley MD - Comment: Back Table Flush) ioversoL (OPTIRAY 350) injection (CANCELED) As needed, Starting on Lisa 06/18/21 at 1206, Intra-Procedure (CV) 1206 (Given - Provid er: Troy Shipley MD) lidocaine (XYLOCAINE) 20 mg/mL (2 %) injection (CANCELED) As needed, Starting on Lisa 06/18/21 at 1036, Intra-Procedure (CV), Indications: Administration of Local Anesthesia 1036 (Given - Provid er: Troy Shipley MD) midazolam (VERSED) 1 mg/mL preservative free injection (CANCELED) Administer over 2 Minutes, As needed, Starting on Lisa 06/18/21 at 1034, Intra-Procedure (CV) 1034 (Given - Provid er: Michaela Tsang RN)1127 (Given - Provider: Michaela Tsang RN)1135 (Given - Provider: Michaela Tsang, RADHA) nitroglycerin injection 100 mcg/mL in D5W 10 mL (CANCELED) As needed, Starting on Lisa 06/18/21 at 1139, Intra-Procedure (CV) 1139 (Given - Provid er: Troy Shipley MD) sodium chloride 0.9% infusion (COMPLETED) Continuous PRN, Starting on Lisa 06/18/21 at 1157, Intra-Procedure (CV) 1157 (New Bag - Prov ider: Troy Shipley MD - Comment: Over 2hr per Dr. Shipley) Linked Groups Order Group 1: protamine injection 20 mg (COMPLETED)Jump to med 20 mg, intravenous, Once, On Lisa 06/18/21 at 1645, For 1 dose, Rate not to exceed 50 mg over 10 minutes, Indications: Heparin Toxicity Followed by protamine injection 20 mgJump to med 20 mg, intravenous, Once, On Lisa 06/18/21 at 1645, For 1 dose, Rate not to exceed 50 mg over 10 minutes, Indications: Heparin Toxicity documented in this encounter Orders Medications Ordered That Addy ht Not Have Been Administered Count Last Ordered Date First Ordered Date protamine injection 20 mg 1 06/18/2021 sodium chloride 0.9% infusion 1 06/18/2021 Discharge Count Last Ordered Date First Orde red Date DISCHARGE PATIENT 1 06/18/2021 documented in this encounter Care Teams Tester Compressed Gases Relationship Specialty Start Date End Date Say Low MD [address] [facility] [address] [place] [address] PCP - General 02/15/17 documented as of this encounter
--- OUTSIDE RECORDS SUMMARY | 2024-09-22 19:05 | XMS_ITS | Encounter Summary ---
Author Organization [facility] Medical [facility] Address [address] [place] [address] Care Team Providers Care Nicu Rn Name Role Phone Say Low MD Primary Care Provider [phone] Reason for Visit * (Routine) - Closed Specialty Diagnoses / Procedures Referred By Yary silveira Referred To Contact Diagnoses Randall WINN Procedures DEVICE CHECK - REMOTE Wayne Davis MD Phone: tel: fax: [facility] Referral ID Status Reason Start Date Expiration Date Visits Re quested Visits Authorized [id number] Closed 05/20/2020 06/19/2021 1 1 Encounter Details Date Type Department Care Team (Latest Contact Info) Description 03/16/2021 2:00 PM CDT Ancillary Procedure Arrhythmia Center [address] [place] [address] Mobitz II; Cardiac pacemaker in situ Social History Tobacco Use Types Packs/Day Years Used Date Smoking Tobacco: Former Cigarettes 3 22.6 1 961 - 04/29/1983 Smokeless Tobacco: Never Alcohol Use Standard Drinks/Week Comments No 0 (1 standard drink = 0.6 oz pur e alcohol) Sex and Gender Information Value Date Recorded Sex Assigned at Not on file Legal Sex Male 8:04 PM POLICY ANALYST Gender Identity Male 07/10/2021 8:31 AM CDT Sexual Orientation Straight 06/12/2021 8: 44 AM CDT documented as of this encounter Plan of Treatment Not on file documented as of this encounter Procedures Procedure Name Priority Date/Time Associated Diagnosis Comments DEVICE CHECK - REMOTE Routine 03/17/2021 2:40 PM CDT Mobitz II documented in this encounter Results * DEVICE CHECK - REMOTE (03/17/2021 2:40 PM CDT) Anatomical Region Laterality Modality Other Narrative 03/18/2021 3:35 PM CDT This patient received a [employer] Pacemaker. ??They had a routine [employer] remote transmission on 03/16/2021. Device implant indications: ??Mobitz type 2 ?? Interrogation of the patient's device demonstrates the following: Presenting EGM: ??AFib with RV pace @ 70 bpm Lead Measurements Right Atrium Right Ventricle Sensitivity (mV) 6.2 mV 22.7 mV Impedence (Ohms) 475 ohms 471 ohms Pace Threshold Not done V @ ??ms 0.50 V @ 0.40 ms Pacing % 11 % 99 % Battery Status: ??3.5 years to SOFI Episodes last 90 days/Comments: AF [place] patient has been in atrial fibrillation 100% of the time since February 24, 2021. Patient has an upcoming appointment with Dr. Coker to discuss oral AC as the patient is currently not on any. NORMAL DEVICE FUNCTION PROGRAMMED Anti-coagulant(s): ??Aspirin 81 mg Anti-arrhythmic(s): ??Coreg 12.5 mg twice daily, Norvasc 5 mg Plan: 1) normal [employer] Pacemaker evaluation with new onset atrial fibrillation noted. 2) [employer] remote transmission scheduled in 3 months. Bhavani White R.N. us Wayne Davis MD CV CARDIAC SERVICES PRO CEDURES Final Result documented in this encounter Visit Diagnoses Diagnosis Mobitz II Mobitz (type) II atrioventricular block Cardiac pacemaker in situ documented in this encounter Care Teams Nicu Rn Relationship Specialty Start Date End Date Say Low MD [address] [facility] [address] [place] [address] PCP - General 5/16/17 documented as of this encounter
--- OUTSIDE RECORDS SUMMARY | 2024-09-22 19:05 | XMS_ITS | Encounter Summary ---
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 Procedures Transthoracic Echo Complete W Doppler/CF Jeremías Anne MD [address] [facility] [place] [address] Phone: tel: fax: [facility] [address] [place] [address] Referral ID Status Reason Start Date Expiration Date Visits Re quested Visits Authorized [id number] Closed 09/14/2021 11/03/2021 1 1 RONMENTAL LAWYER Reason for Visit * Cardiology (Routine) - Closed Specialty Diagnoses / Procedures Referred By Contac t Referred To Contact Diagnoses 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 Procedures Transthoracic Echo Complete W Doppler/CF Jeremías Anne MD [address] [facility] [address], [place] [address] Phone: tel: fax: [facility] [address] [place] [address] Referral ID Status Reason Start Date Expiration Date Visits Re quested Visits Authorized [id number] Closed 09/14/2021 11/03/2021 1 1 Encounter Details Date Type Department Care Team (Latest Contact Info) Description 10/09/2021 12:17 PM ENVIRONMENTAL LAWYER - 10/09/2021 11:59 PM ENVIRONMENTAL LAWYER Hospital Encounter [facility] OP Cardiac Testing [address] [place] [address] 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 Discharge Disposition: Discharge to home or self [...] on file Legal Sex Male 8:04 PM ENVIRONMENTAL LAWYER Gender Identity Male 07/10/2021 8:31 AM CDT [...] mouth daily 90 tablet 3 10/09/2021 3 carvediloL (COREG) 25 mg tablet Take 25 mg by mouth every 12 (twelve) hours 04/01/2021 2 clopidogreL (PLAVIX) 75 mg tablet Take 1 tablet (75 mg total) by mouth daily 90 tablet 3 06/18/2021 2 furosemide (LASIX) 40 mg tablet Take 80 mg by mouth daily 2 losartan (COZAAR) 100 mg tablet take 1 tablet by oral route every day 30 0 11/17/2015 4 omega-3 fatty acids-fish oil (FISH OIL) 300-1,000 mg capsule 1 capsule daily 0 0 09/10/2015 2 rivaroxaban (XARELTO) 20 mg tabletIndications: atrial fibrillation Take 1 tablet (20 mg total) by mouth daily 30 tablet 11 03/27/2021 2 Trelegy Ellipta 100-62.5-25 mcg inhaler daily 08/15/2020 2 documented as of this encounter Discharge Disposition Disposition Code Departure Means Destination Discharge to home or self care documented in this encounter Plan of Treatment Not on file documented as of this encounter Procedures Procedure Name Priority Date/Time Associated Diagnosis Comments TRANSTHORACIC ECHO (TTE) COMPLETE W DOPPLER/CF WO CONTRAST Routine 10/09/2021 1:19 PM ENVIRONMENTAL LAWYER 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 Electronically Signed By: Jeremías Anne MD [employer] [employer] 2021-10-09 13:32:11 ENVIRONMENTAL LAWYER CC: CC: Procedure Note Jeremías Anne MD - 10/09/2021 [facility] [address] [place] [address] ECHOCARDIOGRAM Patient Name: DREW NEWMAN GENEPatient ID: [id number] : [id number] Date: 10/09/2021 12:15:10 PM Gender: MAccession #: [id number] Tech: SCRef.Provider: JEREMÍAS ANNE Height(Cm): 178BSA: 2.26 [...] 2021. 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
--- OUTSIDE RECORDS SUMMARY | 2024-09-22 19:05 | XMS_ITS | Encounter Summary ---
Author Organization [facility] Medical Group Address [address] [place] [address] Care Team Providers Care Glass Loading Equipment Tender Name Role Phone Say Low MD Primary Care Provider [phone] Reason for Visit * Cardiology (Routine) - Closed Specialty Diagnoses / Procedures Referred By Yary silveira Referred To Contact Diagnoses Randall WINN Procedures DEVICE CHECK - REMOTE Wayne Davis MD Phone: tel: fax: [facility] Referral ID Status Reason Start Date Expiration Date Visits Re quested Visits Authorized [id number] Closed 05/20/2020 07/02/2021 1 1 Encounter Details Date Type Department Care Team (Late st Contact Info) Description 06/29/2021 1:00 PM CDT Ancillary Procedure Arrhythmia Center [address] [place] [address] Mobitz II; Pacemaker Social History Tobacco Use Types Packs/Day Years Used Date Smoking Tobacco: Former Cigarettes 3 22.6 1 961 - 04/29/1983 Smokeless Tobacco: Never Alcohol Use Standard Drinks/Week Comments No 0 (1 standard drink = 0.6 oz pur e alcohol) Sex and Gender Information Value Date Recorded Sex Assigned at Not on file Legal Sex Male 8:04 PM SERVICE PROVIDER Gender Identity Male 07/10/2021 8:31 AM CDT Sexual Orientation Straight 06/12/2021 8: 44 AM CDT documented as of this encounter Plan of Treatment Not on file documented as of this encounter Procedures Procedure Name Priority Date/Time Associated Diagnosis Comments DEVICE CHECK - REMOTE Routine 06/29/2021 9:41 AM CDT Mobitz II documented in this encounter Results * DEVICE CHECK - REMOTE (06/29/2021 9:41 AM CDT) Anatomical Region Laterality Modality Other Narrative 07/03/2021 1:53 PM CDT This patient received a [employer] Pacemaker. ??They had a routine [employer] remote transmission on 06/29/2021. Device implant indications: ??Mobitz type 2 ?? Interrogation of the patient's device demonstrates the following: Presenting EGM: ??AFib with RV sense @ 73 bpm Lead Measurements Right Atrium Right Ventricle Sensitivity (mV) 3.7 mV 24.6 mV Impedence (Ohms) 464 ohms 452 ohms Pace Threshold Not done V @ ??ms 0.6 V @ 0.40 ms Pacing % 0 % 79 % Battery Status: ??2.5 years to SOFI Episodes last 90 days/Comments: AF [place] 100 % There were no new ventricular events noted on today's remote interrogation. NORMAL DEVICE FUNCTION PROGRAMMED Anti-coagulant(s): ??Plavix 75 mg, Xarelto 20 mg Anti-arrhythmic(s): ??Coreg 25 mg Plan: 1) normal [employer] Pacemaker evaluation 2) [employer] remote transmission scheduled in 3 months. Bhavani White R.N. us Wayne Davis MD CV CARDIAC SERVICES PRO CEDURES Final Result documented in this encounter Visit Diagnoses Diagnosis Mobitz II Mobitz (type) II atrioventricular block Pacemaker Cardiac pacemaker in situ documented in this encounter Care Teams Glass Loading Equipment Tender Relationship Specialty Start Date End Date Say Low MD [address] [facility] [address] [place] [address] PCP - General 02/15/17 documented as of this encounter
--- OUTSIDE RECORDS SUMMARY | 2024-09-22 19:05 | XMS_ITS | Encounter Summary ---
Author Organization [facility] Medical [facility] Address [address] [place] [address] Care Team Providers Care Professor Of Physical Education Name Role Phone Say Low MD Primary Care Provider [phone] Reason for Visit * Reason Onset Date Comments Holding xarelto 05/07/2021 Encounter Details Date Type Department Care Team (Late st Contact Info) Description 05/07/2021 Telephone [facility] Cardiology [address] [place] [address] Shiva Anne MD [address] [place] [address] Holding xarelto Social History Tobacco Use Types Packs/Day Years Used Date Smoking Tobacco: Former Cigarettes 3 22.6 1 961 - 04/29/1983 Smokeless Tobacco: Never Alcohol Use Standard Drinks/Week Comments No 0 (1 standard drink = 0.6 oz pur e alcohol) Sex and Gender Information Value Date Recorded Sex Assigned at Not on file Legal Sex Male 8:04 PM SENIOR JAVA PROGRAMMER Gender Identity Male 07/10/2021 8:31 AM CDT Sexual Orientation Straight 06/12/2021 8: 44 AM CDT documented as of this encounter Miscellaneous Notes * Telephone Encounter - Shiva Anne MD - 05/14/2021 12:43 PM CDT I spoke to him today. He had some concerns about maybe wanting to hold the Xarelto a little longer,since he recently had a tooth pulled and was still bleeding 6 days later. We will go with a 5 day hold his Xarelto prior to his injection. No follow-up call needed spoke with him already * Telephone Encounter - Donna Hollis - 05/13/2021 12:18 PM CDT Pt is calling in regards to being concerned about the medication hold. He is requesting to s.w Dr Anne in regards to this issue. [phone] Please Advise * Telephone Encounter - Moises Dumont - 05/13/2021 10:55 AM CDT Called Tessy at Dr. Boo and relayed physician message. Per Tessy verbally understood. They will schedule patient for steroid injection, then pt will need to return to them 2 weeks later . * Telephone Encounter - Shiva Anne MD - 05/13/2021 10:26 AM CDT Yes he can hold the Xarelto 3 days prior to the steroid injection. He needs a catheterization, but after speaking with him he wants to try to do the injection 1st because after we do the cathis a chance that will not be able hold any medications For quite some time. * Telephone Encounter - Moises Dumont - 05/13/2021 10:12 AM CDT Tessy with Dr. Boo office calling today in regards to the pt holding his Xarelto for 3 days prior to a steroid injection. Per Tessy, she had spoke with patient GP Dr. Low and there was mention that pt might need to undergo a cath, or stent placement or cabg. Dr. Boo office wondering if we are planning on pt having any of those procedures? If not, can pt hold Xarelto for 3 days prior. Please advise * Telephone Encounter - Donna Hollis - 05/08/2021 8:04 AM CDT Pt called office back he verbally understood * Telephone Encounter - Donna Hollis - 05/08/2021 8:03 AM CDT Called pt there are currently problems with the phones to [place] * Telephone Encounter - Shiva Anne MD - 05/07/2021 3:40 PM CDT Yes this should be fine, patient has clinic visit tomorrow will discuss at that time as well * Telephone Encounter - Donna Hollis - 05/07/2021 2:[address] Boo's office is calling to see if it would be okay for pt to hold his Xarelto for 3 days prior to getting a spinal steroid shot. The DOS is not yet determined Please Advise documented in this encounter Plan of Treatment Not on file documented as of this encounter Visit Diagnoses Not on filedocumented in this encounter Care Teams Professor Of Physical Education Relationship Specialty Start Date End Date Say Low MD [address] [facility] [address] [place], [place] [id number] PCP - General 02/15/17 documented as of this encounter
--- OUTSIDE RECORDS SUMMARY | 2024-09-22 19:05 | XMS_ITS | Encounter Summary ---
Author Organization [facility] Address [address] [place] [address] Phone Care Team Providers Care Automotive Metalsmith Name Role Phone Say Low MD Primary Care Provider [phone] Reason for Referral * Diagnostic Imaging (Routine) - Closed Specialty Diagnoses / Procedures Referred By Yary silveira Referred To Contact Diagnoses Nephrolithiasis Procedures US Retroperitoneal Complete Elvin Carrillo NP Phone: tel: fax: [address] [address] Referral ID Status Reason Start Date Expiration Date Visits Re quested Visits Authorized [id number] Closed 03/03/2021 04/02/2022 1 1 Reason for Visit * Reason Comments Nephrolithiasis * Consultation (Routine) - Closed Specialty Diagnoses / Procedures Referred By Yary silveira Referred To Contact Urology Diagnoses Follow up Say Low MD [address] [place] [address] Phone: tel: fax: [facility] (All Locations) Referral ID Status Reason Start Date Expiration Date V isits Requested Visits Authorized [id number] Closed Specialty Services Required 03/06/2020 09/15/2021 99 99 Encounter Details Date Type Department Care Team (Latest Contact Info) Description 03/03/2021 2:20 PM CDT Office Visit [facility] - [facility] Urology [address] 11th [place] [address] [place] [address] Elvin Carrillo NP [address] [place] [address] Nephrolithiasis (Primary Dx); Follow up Social History Tobacco Use Types Packs/Day Years Used Date Smoking Tobacco: Former Cigarettes 3 22.6 1 961 - 04/29/1983 Smokeless Tobacco: Never Alcohol Use Standard Drinks/Week Comments No 0 (1 standard drink = 0.6 oz pur e alcohol) Sex and Gender Information Value Date Recorded Sex Assigned at Not on file 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 male. Chief Complaint Nephrolithiasis HPI Drew Pak??80 y.o.??male with hx of??BPH, elevated PSA, nephrolithiasis,??and urethral stricture here for follow up. ?? 1) Urolithiasis He is s/p Left URS on 01/17/19, stone analysis revealed 100% COM. He also??had prior left??ESWL??in 11/2017??for 8mm LP stone, Right PCNL in 06/2009,??and??Right ESWL in 06/2005??.? His initial??24 hour ua showed??2.58L, calcium 215, sodium 188, oxalate 49, citrate 461, pH 5.7.??He was started on Urocit-K 10meq BID. Repeat??24 hour ua 05/2018 showed 2.41L, calcium 154, sodium 132, oxalate 46, citrate 261, pH 5.2, elevated supersaturation of uric acid.??He is taking Allopurinol as well. ?? The patient is currently asymptomatic and denies flank pain, fever, chills, nausea, vomiting or hematuria.??He denies passing any stones in the last year. After his laminectomy in 07/2020, he had an inpatient lab that showed elevated Potassium level. HisUrokit K 10meq was decreased to once daily. Repeat serum potassium level was WNL at 4.5 on 07/28/20and 4.6 on 08/15/20. He will get his next blood work faxed over. ?? 2) BPH/LUTS He was found to have a soft bulbar urethral stricture during 01/17/19 URS. He denies any issues withurination and reports his urine stream is strong. He takes Tamsulosin 0.4mg for his BPH/LUTS. He has urgency and frequency but attributes it to his Furosemide 40mg use. ?? He has hx??of elevated PSA with two prostate biopsies in 12/2010(path was benign and 08/2010 (path was focal glandular atypia). Last PSA was 1.1 on 05/31/18. ?? He reports he still has chronic back pain. He had recent Right TKA in 12/23/20. ?? Review of Systems Constitutional: Negative for chills, fever and unexpected weight change. Respiratory: Negative for shortness of breath. Gastrointestinal: Negative for abdominal pain, nausea and vomiting. Genitourinary: Negative for difficulty urinating, dysuria, flank pain, frequency, hematuria, scrotal swelling, testicular pain and urgency. Medication Current Outpatient Medications on File Prior to Visit Medication Sig Dispense Refill ??? allopurinoL (ZYLOPRIM) 300 mg tablet Take 0.5 tablets by mouth daily 150 mg daily ??? amLODIPine (NORVASC) 5 mg tablet take 1 tablet by oral route every day (Patient taking differently: Take 5 mg by mouth every morning ) 0 0 ??? aspirin 81 mg tablet take 1 tablet by oral route every day (Patient taking differently: Take 81mg by mouth every morning ) 0 0 ??? carvediloL (COREG) 12.5 mg tablet TAKE 1 TABLET BY MOUTH TWICE DAILY WITH MEALS 180 tablet 0 ??? cholecalciferol (VITAMIN D-3) 2,000 unit tablet Take 2,000 Units by mouth 2 (two) times a day. ??? diclofenac DR (VOLTAREN) 75 mg EC tablet take 1 tablet by oral route every day (Patient taking differently: Take 75 mg by mouth every morning ) 0 0 ??? furosemide (LASIX) 40 mg tablet Take 20 mg by mouth daily ??? losartan (COZAAR) 100 mg tablet take 1 tablet by oral route every day (Patient taking differently: Take 100 mg by mouth nightly ) 30 0 ??? cgryhwuo-dzd-WV-lycopen-lutein (CENTRUM SILVER) 0.4-300-250 mg-mcg-mcg tablet 1 tab [...] 1 tablet (10 mEq total) by mouth 2 (two) times a day 60 tablet 3 ??? simvastatin (ZOCOR) 20 mg tablet take [...] ??? Trelegy Ellipta 100-62.5-25 mcg inhaler daily Current Facility-Administered Medications on File Prior to Visit Medication Dose Route Frequency Provider Last Rate Last Admin ??? sodium chloride 0.9% flush 0.5-20 mL 0.5-20 mL intra-catheter Q8H [facility] Patrick Taylor MD ??? sodium chloride 0.9% flush 0.5-20 mL 0.5-20 mL intra-catheter PRN Patrick Taylor MD Allergies No Known Allergies Physical Exam Constitutional: General: He is not in acute distress. Appearance: He is well-developed. Eyes: General: No scleral icterus. Pupils: Pupils are equal, round, and reactive to light. Cardiovascular: Rate and Rhythm: Normal rate. Pulmonary: Effort: Pulmonary effort is normal. No respiratory distress. Abdominal: General: There is no distension. Palpations: Abdomen is soft. There is no mass. Tenderness: There is no abdominal tenderness. There is no guarding or rebound. Hernia: No hernia is present. Musculoskeletal: General: Normal range of motion. Cervical back: Normal range of motion. Skin: General: Skin is warm and dry. Neurological: Mental Status: He is alert and oriented to person, place, and time. US Retroperitoneal Complete 03/03/2021 Status: In process Study Result Narrative & Impression EXAMINATION: COMPLETE RENAL SONOGRAM ?? HISTORY: 72-year-old male with urolithiasis requiring left-sided lithotripsy in 01/2019. Follow-up urolithiasis. ?? COMPARISON: 07/03/2019 ?? FINDINGS: ?? Kidneys: The echogenicity of both kidneys is normal. The kidneys are large in size. The right kidney measures 13.6 cm in length, and the left, 14.2 cm in length. There is no hydronephrosis in either kidney. Previously visualized areas of twinkle artifact on 07/03/2019 examination are no longer seen. In the right lower pole, there is one shadowing kidney stone, unchanged in size, measuring 5 mm. No other stones are seen in the right and left kidneys. A cyst in the upper pole of the left kidney has increased in size, previously measuring 5.6 cm and now measuring 7.6 cm. ?? Bladder: The urinary bladder is normal ?? IMPRESSION: 1. Unchanged small right lower pole intrarenal stone without evidence of hydronephrosis. ?? Dictated by: James Shannon M.D. Results for orders placed or performed in visit on 03/03/21 POCT urinalysis dipstick Result Value Ref Range Color, Urine, POC Yellow Clarity, ur, POC Clear Clear Glucose, ur, POC 250. (A) Negative mg/dL Ketones, ur, POC Negative Negative Blood, ur, POC Negative Negative pH, ur, POC 6.0 5.0 - 8.0 Protein, ur, POC Negative Negative Nitrite, ur, POC Negative Negative Leukocytes, ur, POC Negative Negative Lot Number 0 Assessment/Plan Drew Pak??80 y.o.??male with hx of??BPH, elevated PSA, nephrolithiasis,??and urethral stricture here for follow up. ?? Diagnoses and all orders for this visit: Nephrolithiasis (N20.0) (Primary) Follow up (Z09) RBUS today showed RLP stone is stable. FURTHER DIAGNOSTICS: POCT UA 24-hour urine stone risk profile after definitive stone management, prior to next visit. TREATMENT RECOMMENDATIONS: Analgesics as needed Prescribed analgesics for pain, Flomax for medical expulsive therapy. Urokit-C 10meq daily RF. Behavioral: Recommend fluid intake to make approximately 2-3 liters of urine per day Recommend low sodium,, low purine/protein, and increase citrus in diet. Risks of observation discussed including growth of stones resulting in increased difficulty of treatment, infection, which may be life-threatening, hematuria and blood loss, and loss of kidney function. Report intensification of symptoms to my office or go to the emergency room for intractable pain, associated fever, chills, nausea, vomiting or hematuria. Follow up in 1 year with US Retroperitoneal Complete; Future prior. documented in this encounter Plan of Treatment Not on file documented as of this encounter Procedures Procedure Name Priority Date/Time Associated Diagnosis Comments POCT URINALYSIS DIPSTICK Routine 03/03/2021 2:55 PM CDT Nephrolithiasis documented in this encounter Results * US Retroperitoneal Complete (03/16/2022 10:33 AM CDT) Anatomical Region Laterality Modality Abdomen N/A Ultrasound 03/16/2022 10:4 7 AM CDT Impressions 03/16/2022 11:45 AM CDT 1. ??5 mm nonobstructing right renal stone and 4 mm nonobstructing left renal stone. ??No evidence of hydronephrosis. 2. ??Stable bilateral nephromegaly. Dr. Mckeon (residential treatment specialist) personally participated in sonographic imaging of this patient. Dictated by: Bladimir Mckeon MD The radiology attending physician has personally reviewed this study, and had reviewed and/or edited this written report and agrees with it. Electronically signed by: Wojciech Williamson M.D. Narrative 03/16/2022 11:45 AM CDT EXAMINATION: COMPLETE RENAL SONOGRAM HISTORY: ??81-year-old male with a history of recurrent nephrolithiasis requiring multiple stone retrieval procedures. ??Most recent lithotripsy on the left kidney on 01/17/2019. COMPARISON: ??Ultrasound 03/03/2021, CT 01/04/2019. FINDINGS: ?? Kidneys: The echogenicity of both kidneys is normal. The kidneys are large in size. ?? The right kidney measures 13.4 cm in length. ??The left kidney measures 16.4 cm (the measurement includes the upper pole renal cyst). There is no hydronephrosis in either kidney. ??There is a 5 mm renal stone in the right interpolar region. ??There is a 4 mm renal stone in the left lower pole. Bladder: The urinary bladder is normal. ??Prostatomegaly is noted. Procedure Note Wojciech Williamson MD - 03/16/2022 EXAMINATION: COMPLETE RENAL SONOGRAM HISTORY: 81-year-old male with a history of recurrent nephrolithiasis requiring multiple stone retrieval procedures. Most recent lithotripsy on the left kidney on 01/17/2019. COMPARISON: Ultrasound 03/03/2021, CT 01/04/2019. FINDINGS: Kidneys: The echogenicity of both kidneys is normal. The kidneys are large in size. The right kidney measures 13.4 cm in length. The left kidney measures 16.4 cm (the measurement includes the upper pole renal cyst). There is no hydronephrosis in either kidney. There is a 5 mm renal stone in the right interpolar region. There is a 4 mm renal stone in the left lower pole. Bladder: The urinary bladder is normal. Prostatomegaly is noted. IMPRESSION: 1. 5 mm nonobstructing right renal stone and 4 mm nonobstructing left renal stone. No evidence of hydronephrosis. 2. Stable bilateral nephromegaly. Dr. Mckeon (residential treatment specialist) personally participated in sonographic imaging of this patient. Dictated by: Bladimir Mckeon MD The radiology attending physician has personally reviewed this study, and had reviewed and/or edited this written report and agrees with it. Electronically signed by: Wojciech Williamson M.D. Elvin Carrillo NP IMG US PROCEDURES Final Result * (ABNORMAL) POCT urinalysis dipstick (03/03/2021 2:55 PM CDT) Color, Urine, POC Yellow Clarity, ur, POC Clear Clear Glucose, ur, POC 250.(A) Negative mg/dL Ketones, ur, POC Negative Negative Blood, ur, POC Negative Negative pH, ur, POC 6.0 5.0 - 8.0 Protein, ur, POC Negative Negative Nitrite, ur, POC Negative Negative Leukocytes, ur, POC Negative Negative Lot Number 0 Urine 03/03/2021 2:55 PM CDT Elvin Carrillo NP POINT OF CARE TEST CHARISSE MCCRAY Final Result documented in this encounter Visit Diagnoses Diagnosis Nephrolithiasis- Primary Calculus of kidney Follow up Nephrolithiasis Calculus of kidney documented in this encounter Discontinued Medications Medication Sig Discontinue Reason Start Date End Da te potassium citrate ER (UROCIT-K) 10 mEq (1,080 mg) CR tablet Take 1 tablet (10 mEq total) by mouth 2 (two) times a day Reorder 10/06/2020 03/03/2021 documented as of this encounter Orders Outpatient Referral Count Last Ordered Date Fir st Ordered Date AMB REFERRAL TO UROLOGY 1 03/03/2021 documented in this encounter Care Teams Automotive Metalsmith Relationship Specialty Start Date End Date Say Low MD [address] [facility] [address] [place] [address] [place] [address] PCP - General 02/15/17 documented as of this encounter
--- OUTSIDE RECORDS SUMMARY | 2024-09-22 19:05 | XMS_ITS | Encounter Summary ---
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 Medications: Pt reports taking all medications as prescribed. Asked specifically about aspirin, blood thinner, and cholesterol medication. Pt started taking blood thinners. Pt denies any questions regarding medications at this time. ?? Cardiac Rehab Facility: Pt previously denied the referral for card rehab. Is pt exercising? ?? Pt states he was sick for over a month but is doing much better. Pt tries to go for a 10-15 minute walk outside each day. ?? Explained the importance of trying to gradually, and safely improve exercise tolerance. Educatedpt on the [employer] recommendation of working towards 150+ minutes/week of light to moderate-intensity aerobic exercise, or 75+ minutes of vigorous-intensity aerobic exercise to helpimprove cardiovascular function as well as quality of life. ?? Suggested that pt avoid strenuous exercise/exertion outside if the weather is under 40 degrees, or over 85 degrees. Explained the physiological reasoning for this suggestion - pt verbalized understanding. ?? Educated pt on the signs/symptoms of over-exertion: SOB, chest discomfort, musculoskeletal pain,abnormal fatigue, etc. Explained when it would be appropriate to call Flagger's office, go to the ER, or call 911. ?? Flagger Follow-up Appointment: Pt states they had f/u appointment with his alterations expert on 10/09 and they will discuss whether they think a pace maker is needing replaced. ?? Readmission: Pt states they have been readmitted to a hospital over the past 30 days but for bronchitis. Final f/u call by Cardiac Rehab Navigators. E MAKER * Telephone Encounter - Delmy Lafleur EP-C - 07/23/2021 10:57 AM CDT Initial Follow-up Call Questions ?? Medications: Pt reports taking all medication as prescribed.. Pt denies any current questions about medications. ?? Cardiac Rehab Facility: Pt refused [facility]CR referral. Pt states he suffers from bad back pain and in unable to do any kind of exercise. Pt states he was in the process of getting a work up done for his back but that was put on hold. Pt states he tries to stay physically active and is able to walk 5-10 mins without stopping. I encouraged pt to continue with this as tolerated. Explained the importance of moving to improve ?? Explained the importance of trying to gradually, and safely improve exercise tolerance. Educatedpt on the [employer] recommendation of working towards 150+ minutes/week of light to moderate-intensity aerobic exercise to help improve cardiovascular function as well as quality of life. ?? Suggested that pt avoid strenuous exercise/exertion outside if the weather is under 40 degrees, or over 85 degrees. Explained the physiological reasoning for this suggestion - pt verbalized understanding. ?? Educated pt on the signs/symptoms of over-exertion: SOB, chest discomfort, musculoskeletal pain,abnormal fatigue, etc. Explained when it would be appropriate to call Flagger's office, go to the ER, or call 911. ?? Flagger Follow-up Appointment: Pt reports they see Dr. Anne on 09/14 ?? Readmission: Pt reports they have not been readmitted to a hospital since being discharged from [facility]. * Telephone Encounter - Syed Ramos EP-C - 07/22/2021 1:23 PM CDT Called pt to ask Cardiac Rehab Navigator Initial f/u questions. No answer. LMOR x 1 with name, department and office phone number. Will plan to call again at a later date if pt does not return call. documented in this encounter Plan of Treatment Not on file documented as of this encounter Visit Diagnoses Not on filedocumented in this encounter Care Teams Enameler Relationship Specialty Start Date End Date Say Low MD [address] [facility] [address] [place] [address] PCP - General 02/15/17 documented as of this encounter
--- OUTSIDE RECORDS SUMMARY | 2024-09-22 19:05 | XMS_ITS | Encounter Summary ---
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 ([facility]/HCC) (FORMERLY [facility]) Discharge Disposition: Discharge to home or [...] on file Legal Sex Male 8:04 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 Gender Identity Male 07/10/2021 8:31 AM CDT Sexual Orientation Straight 06/12/2021 8: 44 AM CDT documented as of this encounter Last Filed Vital Signs Vital Sign Reading Time Taken Comments Blood Pressure 121/59 07/14/2021 8:20 AM CDT Pulse 90 07/14/2021 8:20 AM CDT Temperature 36.6 ??C (97.9 ??F) 07/14/2021 8:20 AM CD T Respiratory Rate 18 07/14/2021 8:20 AM CDT Oxygen Saturation 95% 07/14/2021 8:20 AM CDT Inhaled Oxygen Concentration - - Weight 103.6 kg (228 lb 8 oz) 07/13/2021 11:54 A M CDT Height 177.8 cm (5' 10 ) 07/13/2021 11:54 AM CDT Body Mass Index 32.79 07/13/2021 11:54 AM CDT documented in this encounter Discharge Summaries * Troy Shipley MD - 07/14/2021 9:24 AM CDT Inpatient Discharge Summary BRIEF OVERVIEW Admitting Provider: Troy Shipley MD Discharge Provider: Troy Shipley MD Primary Care Physician at Discharge: Say Low MD [phone] Admission Date: 07/13/2021 Discharge Date: 07/14/2021 Admission Location: [facility] Hospital Problems/Diagnoses: Principal Problem: 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 DETAILS OF HOSPITAL STAY Presenting Problem/History of Present Illness: 81M with CAD prior CABG, systolic HF, PPM, DM2 presented for PCI of LAD Hospital Course: Pt underwent PCI of proximal LAD with single CHANNING without complication. Monitored overnight post procedure without issue. Active Issues Requiring Follow-up: Fu with primary labor standards director Dr. Anne. Will repeat TTE in about 2 months post PCI and OMT to determine need for COMMERCIAL ACCOUNT EXECUTIVE upgrade/further therapies Test Results Pending at Discharge: Operative Procedures Performed: Procedure(s): PCI CHANNING MAJOR CORONARY C9600 - 46320 LEFT HEART CATHETERIZATION WITH CORONARY ANGIOGRAPHY AND WITH OR WITHOUT LEFT VENTRICULOGRAM 65357 IVUS/OCT CORS OR GRAFTS, FIRST VESSEL (+) 75894 Coronary Flow Velocity (CFR) / Instantaneous Flow Velocity (IFR), 1st Vessel Other Procedures: Pertinent Test Results: Labs wnl Discharge Details Physical Exam at Discharge: Discharge Condition: good Pulse: 90 Resp: 18 BP: 121/59 Temp: 36.6 ??C (97.9 ??F) Weight: 103.6 kg (228 lb 8 oz) Pertinent Exam Findings at Discharge: NAD RRR CTAB Discharge Disposition: Discharge to home or self care Code Status at Discharge: Full Discharge Instructions: Continue all meds as prescribed. Follow up with Dr. Anne in clinic as discussed Discharge Medications: Current Medications TAKE these medications allopurinoL 300 mg tablet Take 0.5 tablets by mouth daily 150 mg daily Commonly known as: ZYLOPRIM carvediloL 25 mg tablet Take 25 mg by mouth every 12 (twelve) hours Commonly known as: COREG Centrum Silver 0.4-300-250 mg-mcg-mcg tablet 1 tab daily Generic drug: sadyoreg-bhi-IO-lycopen-lutein cholecalciferol 2000 unit tablet Take 2,000 Units by mouth 2 (two) times a day. Commonly known as: VITAMIN D-3 clopidogreL 75 mg tablet Take 1 tablet (75 mg total) by mouth daily Commonly known as: PLAVIX Fish OiL 300-1,000 mg capsule 1 capsule daily Generic drug: omega 1-sya-lok-fish oil furosemide 40 mg tablet Take 40 mg by mouth daily Commonly known as: LASIX losartan 100 mg tablet take 1 tablet by oral route every day Commonly known as: COZAAR omeprazole 40 mg capsule Take 40 mg by mouth daily Commonly known as: PriLOSEC potassium citrate ER 10 mEq (1,080 mg) CR tablet Take 1 tablet (10 mEq total) by mouth daily Commonly known as: UROCIT-K rivaroxaban 20 mg tablet Take 1 tablet (20 mg total) by mouth daily For: atrial fibrillation Commonly known as: XARELTO simvastatin 20 mg tablet take 1 tablet by oral route every day at bedtime Commonly known as: ZOCOR Synjardy XR 5-1,000 mg tablet, IR & ER, biphasic 24hr Take 1,000 mg by mouth every morning Generic drug: empagliflozin-metformin tamsulosin 0.4 mg extended release capsule take 1 capsule by oral route every day 1/2 hour following the same meal each day Commonly known as: FLOMAX Trelegy Ellipta 100-62.5-25 mcg inhaler daily Generic drug: xadjfsirtff-rleqqubca-ikcjrnil Outpatient Follow-Up: Future Appointments Date Time Provider Department Center 09/14/2021 10:30 AM Shiva Anne MD [facility] MG Decent 03/04/2022 9:15 AM [facility] [id number] N US [facility] Main IMG 03/04/2022 10:20 AM Elvin Dsouza NP [facility] [place] A total of 25 minutes was spent counseling patient regarding post discharge follow up, performing med reconciliation and preparing dc materials. documented in this encounter Medications at Time [...] by mouth every 12 (twelve) hours 04/01/2021 clopidogreL (PLAVIX) 75 mg tablet Take 1 tablet (75 mg total) by mouth daily 90 tablet 3 06/18/2021 2 furosemide (LASIX) 40 mg tablet Take 40 mg by mouth daily 12/13/2019 2 losartan (COZAAR) 100 mg tablet take 1 tablet by oral route every day 30 0 11/17/2015 4 uzihuqqs-bav-ZA-ly copen-lutein (CENTRUM SILVER) 0.4-300-250 mg-mcg-mcg tablet 1 [...] or self care documented in this encounter Progress Notes * Rajeev Longoria EP-C - 07/14/2021 9:29 AM CDT Inpatient Cardiac Rehab Education Patient Information Patient Name: Drew Pak : 1940 Room/Bed: [place] [address]/[address] Insurance: Medicare Traditional Progress Note Architecture Intern: ÁNGELA Valle Date: 07/14/2021 Referring Diagnosis for Cardiac Rehab - S/P CHANNING x 1 Education Provided Explained my role as a Cardiac Rehab Navigator (CRN). Provided Cardiac Rehab education to pt. Family was not present. Pt was provided with Cardiac Rehab education folder. ?? Risk Factors: Obesity / Family Hx Discussed and provided resources for managing the above risk factors, as well as managing stress/anxiety/depression. - Briefly discussed cardiac medications, and the importance of medication adherence. Advised pt to consult their nurse, physician, and/or pharmacist if they have any questions about their medications. - Briefly discussed the benefit of lifestyle modifications such as diet (sodium and saturated fats)and exercise. Advised pt to consult their assembler faucets, nurse, and/or physician if they have any questions about their diet/nutrition. ?? Cardiac Rehab: Gave pt options of facilities for Outpatient Cardiac Rehab (OCR) in their community. Explained OCR program. Pt expressed knowledge towards local OCR program - pt requested no referral be sent. I encouraged pt to call the Cardiac Rehab Navigator office and gave him phone number if pt changes their mind. Pt states that they are not currently exercising on their own due to lower back pain. I stressed the importance/benefits of incorporating regular aerobic exercise into their lifestyle. I explained how this would assist in their recovery post- PCI, and help maintain/improve their cardiovascular health going forward. ?? I advised pt to follow physician instructions/restrictions as prescribed post-discharge. ?? I recommended pt use their recumbent bike or arm ergometer to perform 5-10 minutes 2-3x per day as tolerated. I encourage pt to increase time by 2-3 minutes each week with the goal of reaching 15-30 minutes 1-2x per day. ?? Exercise Education: Explained the importance of trying to gradually/safely increase exercise tolerance. Educated pt on working towards eventually trying to reach the [place] [employer] recommendations in regardsto exercise: 150+ minutes/week of light to moderate-intensity aerobic exercise, or 75+ minutes/weekof vigorous-intensity aerobic exercise. I explained how this would help to improve cardiovascular function, as well as quality of life. - Explained safe exercise intensities with pt, discussing how using the talk test as a frame of reference in regards to preferable intensity level for general population. - Suggested that pt avoid strenuous exercise/exertion outside if the weather is under 40 degrees, or over 85 degrees. Explained the physiological reasoning for this suggestion. - Educated pt on the signs/symptoms of over-exertion: SOB, chest discomfort, musculoskeletal pain, abnormal fatigue. Explained when it would be appropriate to call Exchange Engineer's office, go to the ER, or call 911. ?? Insurance Coverage: Briefly explained general insurance coverage for OCR, but assured pt that OCR facility will usuallycall insurance and inform pt of more of an approximate coverage. ?? Post-Discharge: Explained process between discharge from hospital, and getting set up in an OCR program - f/u with Exchange Engineer, [facility] f/u calls, OCR program contact. Conclusion Pt seems unlikely to participate in OCR. I anticipate low motivation as a potential barrier to pt participating in OCR program. Reassured pt of importance and health care provider support of OCR. Pt verbalized understanding of education, and all questions were answered to the best of my ability. Will complete order for OCR to be sent to [facility]. Thank you for allowing us to assistant brand manager in the care of this patient, please don't hesitate to contact the Cardiac Rehab Navigator office with any questions: [phone]. documented in this encounter H&P Notes * Troy Shipley MD - 07/13/2021 12:00 PM CDT I have reviewed the H&P, examined the patient, and endorse the findings as written. Plan of Care : Based on the above findings, I consider Drew Pak to be an acceptable risk for : Procedure(s): PCI ATHERECTOMY - MAJOR CORONARY 56280 Source Note - Troy Shipley MD - 06/18/2021 9:39 AM CDT General H&P Subjective Patient is a 81 y.o. male with chief complaint of heart failure HPI: 81M with remote CABG, AF, PPM found to have worsening LV function, referred for [facility] Past Medical History: Diagnosis Date ??? Arthritis [...] Pacemaker Placement - (Added by TW Conv) ??? CORONARY ARTERY BYPASS GRAFT 2003 saphenous vein to the 1st obtuse marginal, 2nd obtuse marginal, and posterior descending branch of the right coronary artery ??? LITHOTRIPSY ??? REPLACEMENT TOTAL KNEE Right 12/2020 ??? TIBIA FRACTURE SURGERY 2010 r/t trauma ??? UPPER GASTROINTESTINAL ENDOSCOPY Medications [...] by mouth nightly ) 30 0 ??? dwhuwvzt-xwz-LS-lycopen-lutein (CENTRUM SILVER) 0.4-300-250 mg-mcg-mcg tablet 1 tab [...] mouth every morning ) 0 0 ??? Nyasia Ellipta 100-62.5-25 mcg inhaler daily No Known [...] artery disease involving coronary bypass graft of hoh heart with angina pectoris (CMS/HCC) (FORMERLY [facility]) Plan Proceed with [facility] documented in this encounter Miscellaneous Notes * Plan of Care - Melanie Birmingham RN - 07/14/2021 9:33 AM CDT Goals: Clinical Goals for the Shift: Monitor VS, labs, activity, puncture site. DC planning for am Summary: Pt vpaced/afib 70-80's, R radial site C/D/I, VSS on RA, no falls, all pt needs met at thistime * Plan of Care - Peggy Almonte RN - 07/14/2021 4:14 AM CDT Goals: Clinical Goals for the Shift: Monitor VS, labs, activity, puncture site. DC planning for am Summary: rt wrist site dry intact good blood return . Edon fingers. No c/o pain to site. C/o generalized pain . * Plan of Care - Michael Greenberg RN - 07/13/2021 5:57 PM CDT Goals: Clinical Goals for the Shift: Monitor VS, labs, activity, puncture site. DC planning for am Summary: Admitted to 1354 b from [facility]. Awake and alert. VSS. A fib 70s. TR band in place to right wrist. Right wrist soft and dry. * Pre-Sedation Documentation - Troy Shipley MD - 07/13/2021 12:42 PM CDT Sedation Plan ASA 3 - Severe systemic disease Mallampati class: III. Risks, benefits, and alternatives discussed with patient. 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 (CMS/HCC) (HCC) CORONARY OCT, 1ST VESSEL Routine 07/13/2021 3:40 PM CDT 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 (CMS/HCC) (HCC) LEFT HEART CATHETERIZATION WITH CORONARY ANGIOGRAPHY AND WITH AND WITHOUT LEFT VENTRICULOGRAM Routine 07/13/2021 3:40 PM CDT 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 (CMS/HCC) (HCC) CHANNING MAJOR CORONARY Routine 07/13/2021 3: 40 PM CDT 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 60 - 89 mL/min/1.73m2 Mildly to moderately decreased ?45 - 59 mL/min/1.73m2 Moderately to severely decreased ??30 - 44 mL/min/1.73m2 Severely decreased ?15 - 29 mL/min/1.73m2 Kidney Failure ?< 15 ??mL/min/1.73m2 *Relative to young adult level Estimated glomerular filtration rate is determined by the CKD-EPI equation recommended by the National Kidney Foundation (KDIGO 2012 Clinical Practice Guideline for the Evaluation and Management of Chronic Kidney Disease. Kidney Intnl Suppl Oct 2012;3:1). The CKD-EPI equation should not be used for patients with unstable renal function and has not been validated in children and those over 70. Current interpretive data was last reviewed 2020 Blood 07/14/2021 4:06 AM CDT 07/14/2021 5:10 AM CDT us Troy Shipley MD LAB BLOOD ORDERABLES Fin al Result [facility] [address] Department [place] [address] * (ABNORMAL) CBC without differential (07/14/2021 4:06 AM CDT) WBC 7.8 3.8 - 9.9 K/cumm [facility] Hgb 11.1(L) 13.0 - 17.5 g/dL [facility] Hct 37.3(L) 38.9 - 50.3 % [facility] Plt 184 150 - 400 K/cumm [facility] MPV 11.3 9.1 - 12.3 fL [facility] RBC 4.32 4.30 - 5.80 M/cumm [facility] MCV 86.3 81.3 - 96.4 fL [facility] MCH 25.7(L) 27.1 - 33.3 pg [facility] MCHC 29.8(L) 32.3 - 35.7 g/dL [facility] RDW CV 20.5(H) 11.1 - 14.9 % [facility] RDW SD 61.6(H) 35.7 - 48.1 fL [facility] NRBC abs 0.00 0.00 - 0.01 K/cumm [facility] Blood 07/14/2021 4:06 AM CDT 07/14/2021 5:09 AM CDT Troy Shipley MD LAB BLOOD ORDERABLES Fin al Result Performing Organization Address [facility] Co de Phone Number [facility] [address] Department [place] [address] * Basic metabolic panel (07/14/2021 4:06 AM CDT) Sodium 140 135 - 145 mmol/L [facility] Potassium, pl 4.1 3.3 - 4.9 mmol/L [facility] Chloride 106 97 - 110 mmol/L [facility] CO2 22 22 - 32 mmol/L [facility] Anion gap 12 2 - 15 mmol/L [facility] BUN 17 8 - 25 mg/dL [facility] Creatinine 1.13 0.80 - 1.30 mg/dL [facility] Glucose 120 70 - 199 mg/dL [facility] Comment: Interpretive Data Fasting glucose >/= 126 [...] classification and Diagnosis of Diabetes Diabetes Care 2017;40 (Suppl. 1):S11. Current interpretive data was last revised 2017. Calcium 8.6 8.5 - 10.3 mg/dL [facility] Blood 07/14/2021 4:06 AM CDT 07/14/2021 5:10 AM CDT Troy Shipley MD LAB BLOOD ORDERABLES Fin al Result Performing Organization Address [facility] Co de Phone Number [facility] [address] Department [place] [address] * ECG 12 lead (07/13/2021 3:59 PM CDT) 07/13/2021 3:59 PM CDT Narrative [facility] - 07/14/2021 8:42 AM CDT Vent Rate: 78 bpm RR Interval: 766 msec KS Interval: 0 msec QRS Duration: 178 msec QT Interval: 450 msec QTC Interval: 483 msec P-R-T [place]: 0 - 115 - -35 degrees ATRIAL FIBRILLATION WITH ABERRANT CONDUCTION OR VENTRICULAR PREMATURE COMPLEXES RIGHT BUNDLE BRANCH BLOCK AND POSSIBLE RIGHT VENTRICULAR HYPERTROPHY LEFT POSTERIOR FASCICULAR BLOCK NONSPECIFIC ST-T ABNORMALITY ABNORMAL ECG Electronically Signed By: Elia Jett MD ??[facility] Card us Troy Shipley MD ECG ORDERABLES Final Re sult Performing Organization Address [facility] de Phone Number [facility] * CHANNING MAJOR CORONARY, LEFT HEART CATHETERIZATION WITH CORONARY ANGIOGRAPHY AND WITH AND WITHOUT LEFT VENTRICULOGRAM, CORONARY OCT, 1ST VESSEL, CORONARY FLOW VELOCITY (CFR) / INSTATANEOUS FLOW VELOCITY (IFR), 1ST VESSEL (07/13/2021 3:40 PM CDT) Anatomical Region Laterality Modality X-Ray Angiograph y Narrative 07/13/2021 3:54 PM CDT [facility] Cardiology ?? [address] [facility], [id number] ?? [place], [place], [address] ?? Left Heart Catheterization Procedure Report 81 year old male with prior CABG, systolic HF, PPM, DM2 found to have severe proximal LAD lesion on recent cath referred for PCI. Access:7F Right Radial Artery Catheter:7 Fr AL3 guide Injection:Left Main Trunk Closure:TR band Anticoagulation:46171Gspkb Heparin, Clopidogrel and Aspirin Air Kerma:1650 mGy Fluoro time:16.5 min Contrast:120 ml Optiray Sedation:1mg Versed, 50 mcg fentanyl Procedural details: After risks, benefits, and alternatives to the procedure were explained to the patient, they agreed to proceed. ??After signing informed consent the patient was brought to the cardiac catheterization laboratory. ??There were prepped and draped in sterile fashion. A 7 [place] sheath was inserted in the Right Radial Artery using the modified Seldinger technique . We then crossed the aortic valve and measured pressures using a AL3 catheter. ?? PCI details: Using a 7 [place] AL3 guide catheter, we advanced a Runthrough wire to the distal LAD. A 7 [place] Guidezilla was used for better support. We performed pre-intervention IVUS which demonstrated diffuse fibrocalcific atherosclerosis of the distal left main into proximal LAD. Maximum calcification was 180 degrees, therefore we elected to proceed without atherectomy. We pre-dilated the lesion with a 3.5 mm x 15 mm Angiosculpt balloon. We then predilated further with a 3.5 mm NC balloon, with adequate expansion. We then stented with a 3.5 mm x 32 mm Synergy XD drug eluting stent from distal LM to proximal LAD just short of the large first septal branch, after which we post dilated with a 4.5 mm NC balloon proximally up to a maximum of 16 bj. Post-intervention IVUS was performed showing complete expansion and full apposition of the stented segment. A very short segment of residual disease was apparent in the mid-LM just proximal to the stent; post-intervention flow reserve testing was performed to assess significance of this lesion using an Omni wire. IFR after IC nitroglycerin was 0.98, indicating this lesion was not hemodynamically significant and therefore further intervention was not deemed necessary. Intracoronary nitroglycerin was given for vasospasm. ?? Final angiography revealed no evidence of dissection or perforation. ?? There was JEISON 3 flow and 0% residual stenosis. At completion of the case a TR Band was placed at the wrist with good hemostasis achieved. ??The patient tolerated the procedure well with no complaints and was transferred to the floor for further monitoring and care. Conclusions: 1) Successful IVUS guided PCI of the LM and proximal LAD using a 3.5 mm x 32 mm Synergy XD drug eluting stent (post dilated to 4.5 mm) with JEISON-III flow and 0% residual stenosis post-intervention. ?? 2) Mildly elevated filling pressures (LV-EDP 18 mmHg). 3) TR band to R wrist Recommendations: - Continue clopidogrel 75 mg daily and restart Xarelto tomorrow if access site ok. After minimum of 6 months could consider de-escalating to asa 81 plus Xarelto. - Continue to optimize medical therapy and reduce atherosclerotic risk factors. - TR band x2 hours - Observe overnight, plan to dc home tomorrow Troy Shipley MD 07/13/2021 3:46 PM Troy Shipley MD CV CARDIAC CATH PROCEDUR ES Final Result * (ABNORMAL) POC Activated Clotting Time, High Range (07/13/2021 2:59 PM CDT) ACT 313(H) 87 - 138 sec [facility] Blood 07/13/2021 2:59 PM CDT 07/13/2021 2:59 PM CDT Troy Shipley MD LAB BLOOD ORDERABLES Fin al Result Performing Organization Address City/[facility]/ZIP Co de Phone Number [facility] [address] [employer] [place], [place] [id number] * (ABNORMAL) POC Activated Clotting Time, High Range (07/13/2021 2:34 PM CDT) ACT 255(H) 87 - 138 sec [facility] Blood 07/13/2021 2:34 PM CDT 07/13/2021 2:34 PM CDT Troy Shipley MD LAB BLOOD ORDERABLES Fin al Result [facility] [address] Department [employer] [place], [place] [id number] * (ABNORMAL) POC Activated Clotting Time, High Range (07/13/2021 2:23 PM CDT) ACT 194(H) 87 - 138 sec [facility] Blood 07/13/2021 2:23 PM CDT 07/13/2021 2:23 PM CDT us Troy Shipley MD LAB BLOOD ORDERABLES Fin al Result [facility] [address] Department [place] [address] * ECG 12 lead (07/13/2021 11:43 AM CDT) 07/13/2021 11:4 3 AM CDT Narrative [facility] - 07/13/2021 2:31 PM CDT Vent Rate: 77 bpm RR Interval: 777 msec KS Interval: 0 msec QRS Duration: 178 msec QT Interval: 423 msec QTC Interval: 454 msec P-R-T [place]: 0 - 116 - -46 degrees ATRIAL FIBRILLATION WITHVENTRICULAR PREMATURE COMPLEXES RIGHT BUNDLE BRANCH BLOCK LEFT POSTERIOR FASCICULAR BLOCK ST DEVIATION AND MODERATE T-WAVE ABNORMALITY, ABNORMAL ECG Electronically Signed By: Quentin Manzo DO [facility] Troy Shipley MD ECG ORDERABLES Final Re sult Performing Organization Address City/[facility]/ZIP Co de Phone Number [facility] [employer] [facility] documented in this encounter Visit Diagnoses Diagnosis 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 (CMS/HCC) (HCC)- Primary CAD S/P percutaneous coronary angioplasty Coronary artery disease (CAD) excluded Observation for suspected cardiovascular disease 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 (CMS/HCC) (HCC) documented in this encounter Admitting Diagnoses Diagnosis 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 (CMS/HCC) (HCC) CAD S/P percutaneous coronary angioplasty Coronary artery disease (CAD) excluded Observation for suspected cardiovascular disease documented in this encounter Administered Medications Inactive Administered Medications - up to 3 most recent administrations Medication Order MAR Action Action Date Dose Rate Site allopurinoL (ZYLOPRIM) tablet 150 mg 150 mg, oral, Daily, First dose on Tue07/14/21 at 0900 Given 07/14/2021 9:21 AM CDT 150 mg aspirin enteric coated tablet 81 mg 81 mg, oral, Daily, First dose on Tue07/14/21 at 0900, Do not crush, chew, cut, dissolve, open or otherwise manipulate tablet/capsule. Given 07/14/2021 9:22 AM CDT 81 mg budesonide-formoteroL (SYMBICORT) 160-4.5 mcg/actuation inhaler 2 puff 2 puff, inhalation, 2 times daily (registered physical therapist), First dose on Tue07/14/21 at 0800, Rinse mouth with water after use. Do not swallow. With Spiriva for trelegy Ellipta, I /authorizing provider attest that the patient meets the approved [facility] Use Criteria: No, Indications: TI for home Trelegy ElliptaIndications:TI for home Trelegy Ellipta Given 07/13/2021 9:38 PM CDT 2 puffs carvediloL (COREG) tablet 25 mg 25 mg, oral, Every 12 hours, First dose on Tue07/13/21 at 2100 Given 07/14/2021 9:22 AM CDT 25 mg Given 07/13/2021 8:20 PM CDT 25 mg clopidogreL (PLAVIX) tablet 75 mg 75 mg, oral, Daily, First dose on Tue07/14/21 at 0900 Given 07/14/2021 9:22 AM CDT 75 mg empagliflozin (JARDIANCE) tablet 10 mg 10 mg, oral, Daily, First dose on Tue07/14/21 at 0900, I /authorizing provider attest that the patient meets the approved [facility] Use Criteria: Yes, Approving Provider: catina Indications: type 2 diabetes mellitusIndications:type 2 diabetes mellitus Given 07/14/2021 9:22 AM CDT 10 mg furosemide (LASIX) tablet 40 mg 40 mg, oral, Daily, First dose on Tue07/14/21 at 0900 Given 07/14/2021 9:21 AM CDT 40 mg losartan (COZAAR) tablet 100 mg 100 mg, oral, Nightly, First dose on Tue07/13/21 at 2100 Given 07/13/2021 8:21 PM CDT [address] (PROTONIX) extended release tablet 40 mg 40 mg, oral, Daily, First dose on Tue07/14/21 at 0900, Do not crush, chew, cut, dissolve, open or otherwise manipulate tablet/capsule., Indications: Stress Ulcer ProphylaxisIndications:Stress Ulcer Prophylaxis Given 07/14/2021 9:22 AM CDT 40 mg rivaroxaban (XARELTO) tablet 20 mg 20 mg, oral, Daily, First dose on Tue07/14/21 at 0900, Nurse to discontinue heparin infusion order and associated bolus at first administration of rivaroxaban using 'order condition met' order source. If patient is eating, administer doses of 15 mg or greater with food. If patient is not eating, still administer dose unless instructed differently by provider., Indications: atrial fibrillationIndications:atrial fibrillation Given 07/14/2021 9:22 AM CDT 20 mg simvastatin (ZOCOR) tablet 20 mg 20 mg, oral, Nightly, First dose on Tue07/13/21 at 2100 Given 07/13/2021 8:21 PM CDT 20 mg sodium chloride 0.9% infusion 15 mL/hr, intravenous, Continuous, Starting on Tue07/13/21 at 1200, Pre-Procedure (CV) New Bag 07/13/2021 11:57 AM CDT 15 mL/hr 15 mL/hr sodium chloride 0.9% infusion 75 mL/hr, intravenous, Continuous, Starting on Tue07/13/21 at 1630, For 4 hours New Bag 07/13/2021 3:56 PM CDT 75 mL/hr 75 mL/hr tamsulosin (FLOMAX) extended release capsule 0.4 mg 0.4 mg, oral, Every morning, First dose on Tue07/14/21 at 0900, Do not crush, chew, cut, dissolve, open or otherwise manipulate tablet/capsule., Indications: UrolithiasisIndications:Urolithias is Given 07/14/2021 9:22 AM CDT 0.4 mg tiotropium bromide (SPIRIVA RESPIMAT) 2.5 mcg/actuation inhaler 2 puff 2 puff, inhalation, Daily (registered physical therapist), First dose on Tue07/14/21 at 0900, With Symbicort for Trelegy Ellipta documented in this encounter Active and Recently Administered Medications Times are shown in CDT. Scheduled Medication Order 07/12/2021 07/13/2021 07/14/2021 allopurinoL (ZYLOPRIM) tablet 150 mg 150 mg, oral, Daily, First dose on Tue07/14/21 at 0900 09 (Given - Provid er: Melanie Birmingham RN) aspirin enteric coated tablet 81 mg 81 mg, oral, Daily, First dose on Tue07/14/21 at 0900, Do not crush, chew, cut, dissolve, open or otherwise manipulate tablet/capsule. 921 (Given - Provid er: Melanie Birmingham RN) budesonide-formoteroL (SYMBICORT) 160-4.5 mcg/actuation inhaler 2 puff(Linked Group 1) 2 puff, inhalation, 2 times daily (registered physical therapist), First dose on Tue07/14/21 at 0800, Rinse mouth with water after use. Do not swallow. With Spiriva for trelegy Ellipta, I /authorizing provider attest that the patient meets the approved [facility] Use Criteria: No, Indications: TI for home Trelegy Ellipta 2137 (Given - Provider: Sahil Baldwin, ANABEL) 909 (Not Given - Provider: Doris Wolfe RRT - Reason: Patient/family refused) carvediloL (COREG) tablet 25 mg 25 mg, oral, Every 12 hours, First dose on Tue07/13/21 at 2100 2019 (Given - Provider: Peggy Almonte RN) 921 (Given - Provider: Melanie Birmingham RN) clopidogreL (PLAVIX) tablet 75 mg 75 mg, oral, Daily, First dose on Tue07/14/21 at 0900 921 (Given - Provid er: Melanie Birmingham RN) empagliflozin (JARDIANCE) tablet 10 mg 10 mg, oral, Daily, First dose on Tue07/14/21 at 0900, I /authorizing provider attest that the patient meets the approved [facility] Use Criteria: Yes, Approving Provider: catina, Indications: type 2 diabetes mellitus 921 (Given - Provid er: Melanie Birmingham RN) furosemide (LASIX) tablet 40 mg 40 mg, oral, Daily, First dose on Tue07/14/21 at 0900 09 (Given - Provid er: Melanie Birmingham RN) losartan (COZAAR) tablet 100 mg 100 mg, oral, Nightly, First dose on Tue07/13/21 at 2099 2020 (Given - Provider: Peggy Almonte RN) pantoprazole DR (PROTONIX) extended release tablet 40 mg 40 mg, oral, Daily, First dose on Tue07/14/21 at 0900, Do not crush, chew, cut, dissolve, open or otherwise manipulate tablet/capsule., Indications: Stress Ulcer Prophylaxis 921 (Given - Provid er: Melanie Birmingham RN) rivaroxaban (XARELTO) tablet 20 mg 20 mg, oral, Daily, First dose on Tue07/14/21 at 0900, Nurse to discontinue heparin infusion order and associated bolus at first administration of rivaroxaban using 'order condition met' order source. If patient is eating, administer doses of 15 mg or greater with food. If patient is not eating, still administer dose unless instructed differently by provider., Indications: atrial fibrillation 921 (Given - Provid er: Melanie Birmingham RN) simvastatin (ZOCOR) tablet 20 mg 20 mg, oral, Nightly, First dose on Tue07/13/21 at 2099 2020 (Given - Provider: Peggy Almonte RN) tamsulosin (FLOMAX) extended release capsule 0.4 mg 0.4 mg, oral, Every morning, First dose on Tue07/14/21 at 0900, Do not crush, chew, cut, dissolve, open or otherwise manipulate tablet/capsule., Indications: Urolithiasis 921 (Given - Provid er: Melanie Birmingham RN) tiotropium bromide (SPIRIVA RESPIMAT) 2.5 mcg/actuation inhaler 2 puff(Linked Group 1) 2 puff, inhalation, Daily (registered physical therapist), First dose on Tue07/14/21 at 0900, With Symbicort for Trelegy Ellipta 909 (Not Given - Provider: Doris Wolfe, ASSEMBLER [employer] - Reason: Patient/family refused) Continuous Medication Order 07/12/2021 07/13/2021 07/14/2021 sodium chloride 0.9% infusion (CANCELED) 15 mL/hr, intravenous, Continuous, Starting on Tue07/13/21 at 1200, Pre-Procedure (CV) 1157 (New Bag - Provider: Kimmy Valdivia, RADHA) 0625 (Stopped - Provider: Peggy Almonte, RADHA) sodium chloride 0.9% infusion () 75 mL/hr, intravenous, Continuous, Starting on Tue07/13/21 at 1630, For 4 hours 1556 (New Bag - Provider: Kimmy Valdivia, RADHA)1958 (Stopped - Provider: Peggy Almonte, RADHA) PRN Medication Order 07/12/2021 07/13/2021 07/14/2021 acetaminophen (TYLENOL) tablet 650 mg 650 mg, oral, Every 4 hours PRN, 1st line for pain, fever, fever greater than 38.3 C, Starting on Tue07/13/21 at 1549, Indications: Fever, Pain fentaNYL (SUBLIMAZE) preservative free injection (CANCELED) As needed, Starting on Tue07/13/21 at 1408, Intra-Procedure (CV) 1408 (Given - Provider: Elia Ledesma RN) heparin 1,000 unit/mL injection (CANCELED) As needed, Starting on Tue07/13/21 at 1411, Intra-Procedure (CV) 1411 (Given - Provider: Stanislav Shipley MD)1417 (Given - Provider: Elia Ledesma, RADHA)1430 (Given - Provider: Elia Ledesma RN) heparin in 0.9% sodium chloride 1,000 units/500 mL (2 unit/mL) infusion (premix) (CANCELED) As needed, Starting on Tue07/13/21 at 1408, Intra-Procedure (CV) 1408 (Given - Provider: Stanislav Shipley MD - Comment: back table flush) ioversoL (OPTIRAY 350) injection (CANCELED) As needed, Starting on Tue07/13/21 at 1529, Intra-Procedure (CV) 1529 (Given - Provider: Stanislav Shipley MD) lidocaine (XYLOCAINE) 20 mg/mL (2 %) injection (CANCELED) As needed, Starting on Tue07/13/21 at 1409, Intra-Procedure (CV), Indications: Administration of Local Anesthesia 1409 (Given - Provider: Stanislav Shipley MD) midazolam (VERSED) 1 mg/mL preservative free injection (CANCELED) Administer over 2 Minutes, As needed, Starting on Tue07/13/21 at 1408, Intra-Procedure (CV) 1408 (Given - Provider: Elia Ledesma, RADHA) niCARdipine (CARDENE) 500 mcg/5 mL in sodium chloride 0.9% (premix) (CANCELED) As needed, Starting on Tue07/13/21 at 1411, Intra-Procedure (CV) 1411 (Given - Provider: Stanislav Shipley MD) nitroglycerin injection 100 mcg/mL in D5W 10 mL (CANCELED) As needed, Starting on Tue07/13/21 at 1411, Intra-Procedure (CV) 1411 (Given - Provider: Stanislav Shipley MD)1421 (Given - Provider: Troy Shipley MD)1458 (Given - Provider: Troy Shipley MD) Linked Groups Order Group 1: tiotropium bromide (SPIRIVA RESPIMAT) 2.5 mcg/actuation inhaler 2 puffJump to med 2 puff, inhalation, Daily (registered physical therapist), First dose on Tue07/14/21 at 0900, With Symbicort for Trelegy Ellipta And budesonide-formoteroL (SYMBICORT) 160-4.5 mcg/actuation inhaler 2 puffJump to med 2 puff, inhalation, 2 times daily (registered physical therapist), First dose on Tue07/14/21 at 0800, Rinse mouth with water after use. Do not swallow. With Spiriva for trelegy Ellipta, I /authorizing provider attest that the patient meets the approved [facility] Use Criteria: No, Indications: TI for home Trelegy Ellipta documented in this encounter Orders Medications Ordered That Addy ht Not Have Been Administered Count Last Ordered Date First Ordered Date acetaminophen (TYLENOL) tablet 650 mg 1 08/2021 fentaNYL (SUBLIMAZE) preserv ative free injection 1 07/13/2021 spsuefkyssh-vzpcdptyd-rfghoa er (TRELEGY ELLIPTA) 100-62.5-25 mcg inhaler 1 puff 1 07/13/2021 heparin 1,000 unit/mL injection 1 heparin in 0.9% sodium chlor rianna 1,000 units/500 mL (2 unit/mL) infusion (premix) 1 07/13/2021 ioversoL (OPTIRAY 350) injection 1 07/13/20 lidocaine (XYLOCAINE) 20 mg/ mL (2 %) injection 1 07/13/2021 midazolam (VERSED) 1 mg/mL p reservative free injection 1 07/13/2021 niCARdipine (CARDENE) 500 mc g/5 mL in sodium chloride 0.9% (premix) 1 07/13/2021 nitroglycerin injection 100 mcg/mL in D5W 10 mL 1 07/13/2021 sodium chloride 0.9% infusion 1 07/13/2021 tiotropium bromide (SPIRIVA RESPIMAT) 2.5 mcg/actuation inhaler 2 puff 1 07/13/2021 Nursing Count Last Ordered Date First Orde red Date TELEMETRY MONITORING 1 07/13/2021 Admission Count Last Ordered Date First Orde red Date INITIATE OUTPATIENT IN A BED 1 07/13/2021 Discharge Count Last Ordered Date First Orde red Date DISCHARGE PATIENT 1 07/14/2021 CORE MEASURES Count Last Ordered Date First Ord ered Date REASON FOR NO VTE PROPHYLAXIS AT ADMISSION 1 07/13/2021 documented in this encounter Care Teams Sealer Sander Relationship Specialty Start Date End Date Say Low MD [address] [place] [address] PCP - General 02/15/17 documented as of this encounter
--- OUTSIDE RECORDS SUMMARY | 2024-09-22 19:05 | XMS_ITS | Encounter Summary ---
Author Organization [facility] Address [address] [place] [address] Care Team Providers Care Rigging Foreman Name Role Phone Say Low MD Primary Care Provider [phone] Reason for Visit * Reason Comments Coronary Artery Disease Atrial Fibrillation Encounter Details Date Type Department Care Team (Latest Contact Info) Description 10/09/2021 1:15 PM TRACK LAYING SUPERVISOR Office Visit [facility] Cardiology [address] [place] [address] Shiva Anne MD [address] [place] [address] 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 (Primary Dx); Coronary artery disease involving coronary bypass graft of [place] heart with angina pectoris (CMS/HCC) (HCC); Hx of CABG; History of percutaneous coronary intervention; Paroxysmal atrial fibrillation (CMS/HCC) (HCC); Essential hypertension; Cardiac pacemaker in situ; 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 [...] on file Legal Sex Male 8:04 PM TRACK LAYING SUPERVISOR Gender Identity Male 07/10/2021 8:31 AM CDT Sexual Orientation Straight 06/12/2021 8: 44 AM CDT documented as of this encounter Last Filed Vital Signs Vital Sign Reading Time Taken Comments Blood Pressure 128/64 10/09/2021 1:20 PM TRACK LAYING SUPERVISOR Pulse 74 10/09/2021 1:20 PM TRACK LAYING SUPERVISOR Temperature - - Respiratory Rate - - Oxygen Saturation - - Inhaled Oxygen Concentration - - Weight 100.7 kg (222 lb) 10/09/2021 1:20 PM TRACK LAYING SUPERVISOR Height 175.3 cm (5' 9 ) 10/09/2021 1:20 PM TRACK LAYING SUPERVISOR Body Mass Index 32.78 10/09/2021 1:20 PM TRACK LAYING SUPERVISOR documented in this encounter Ordered Prescriptions Prescription Sig Dispense Quantity Refills Last Filled Start Date End Date atorvastatin (LIPITOR) 40 mg tablet Take 1 tablet (40 mg total) by mouth daily 90 tablet 3 10/09/2021 11/23/2022 documented in this encounter Progress Notes * Shiva Anne MD - 10/09/2021 1:15 PM CST Images from the original note were not included. [facility] Cardiology [facility], [address], [facility] [address] [address] Cardiology Electrophysiology Niko Echevarria, MD Wayne Davis,, MD Arslan Alcala, MD Miles Lenz, MD Patrick Avalos, MD Isaac Byrd, MD Quentin Manzo, DO Elgin Bowles, MD Esther Miller, VAN LOADER Elia Jett, MD Shanda Edge, MD Gilson Eden, MD Troy Shipley, MD Kale Faith, DO Shiva Anne, MD Kimmy Power, VAN LOADER Toshia Medley, VAN LOADER Xiomara Millan, VAN LOADER Patient Name: Drew Pak Provider: Shiva Anne MD : 1940 Date of Service: 10/09/2021 Referring: Maranda CHIEF COMPLAINT: Coronary Artery Disease and Atrial Fibrillation HISTORY OF PRESENT ILLNESS: 81 y.o. male with CABG and valvular heart [...] and Xarelto. Had subsequent recent hospitalization at [facility] COVID-19 pneumonia He missed his last follow-up appointment He is here today for post PCI follow-up Had repeat echocardiogram done today which shows again improvement in his EF to around 50% which was around his prior baseline. His biggest issue continues now to be ongoing back pain - he has had several back surgeries over the years I reviewed this patient's Allergies and Current Medication List and updated as needed in the medical record. I reviewed this patient's Past Medical History, Social History, and Family History and updated as needed in the medical record. MEDICATIONS: Outpatient Encounter Medications as of 10/09/2021 Medication Sig Dispense Refill ??? allopurinoL (ZYLOPRIM) 300 mg tablet Take 0.5 tablets by mouth daily 150 mg daily ??? carvediloL (COREG) 25 mg tablet Take 25 mg by mouth every 12 (twelve) hours ??? cholecalciferol (VITAMIN D-3) 2,000 unit tablet Take 2,000 Units by mouth 2 (two) times a day. ??? clopidogreL (PLAVIX) 75 mg tablet Take 1 tablet (75 mg total) by mouth daily 90 tablet 3 ??? furosemide (LASIX) 40 mg tablet Take 80 mg by mouth daily ??? losartan (COZAAR) 100 mg tablet take 1 tablet by oral route every day (Patient taking differently: Take 100 mg by mouth nightly ) 30 0 ??? omega-3 fatty acids-fish oil (FISH [...] total) by mouth daily 30 tablet 11 ? ? SYNJARDY XR 5-1,000 mg tablet, [...] Trelegy Ellipta 100-62.5-25 mcg inhaler daily ??? [DISCONTINUED] simvastatin (ZOCOR) 20 mg tablet take 1 tablet by oral route every day at bedtime 0 0 ??? atorvastatin (LIPITOR) 40 mg tablet Take 1 tablet (40 mg total) by mouth daily 90 tablet 3 ??? [DISCONTINUED] furosemide (LASIX) 40 mg tablet Take 40 mg by mouth daily ??? [DISCONTINUED] pjansbfn-ucz-BZ-lycopen-lutein (CENTRUM SILVER) 0.4-300-250 mg-mcg-mcg tablet 1 tab daily (Patient taking differently: Take 1 tablet by mouth every morning ) 0 0 Facility-Administered Encounter Medications as of 10/09/2021 Medication Dose Route Frequency Provider Last Rate Last Admin ??? sodium chloride 0.9% flush 0.5-20 mL 0.5-20 mL intra-catheter Q8H INGRID Patrick Taylor MD ??? sodium chloride 0.9% flush 0.5-20 mL 0.5-20 mL intra-catheter PRN Patrick Taylor MD CARDIAC HISTORY: He had silent ischemia [...] stated in HPI above. PHYSICAL EXAM: BP 128/64 (BP Location: Left arm, Patient Position: Sitting) Pulse 74 Ht 175.3 cm (5' 9 ) Wt 100.7 kg (222 lb) BMI 32.78 kg/m?? General: Well appearing, No pain or [...] artery disease involving coronary bypass graft of [place] heart with angina pectoris ([facility]) 414.05 I25.709 413.9 3. Hx of CABG V45.81 Z95.1 4. History of percutaneous coronary intervention V15.1 Z98.61 5. Paroxysmal atrial fibrillation ([facility]) 427.31 I48.0 6. Essential hypertension 401.9 I10 7. Cardiac pacemaker in situ V45.01 Z95.0 8. 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 Results: reviewed TTE from today, improved EF bow back to 50-55% (was there 2. 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 losartan 100 mg daily Coronary artery disease involving coronary bypass graft of [place] heart with angina pectoris ([facility]) Hx of CABG - CABG in 2003, with now subsequent PCI and July 2021 - continue aggressive secondary prevention - changing to atorvastatin for high-intensity statin therapy History of percutaneous coronary intervention - recent PCI for reduced EFUnderwent arthrectomy and PCI of proximal LAD with Dr. Shipley on 07/13/2021 - Was placed on Plavix and Xarelto. For long-term antiplatelet therapy and anticoagulation for AFib Paroxysmal atrial fibrillation ([facility]) - on Xarelto - We are currently pursuing a rate/rhythm control strategy: Rate Med(s): Coreg 12.5 mg b.i.d. 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 Despite careful review of this note, variances in spelling and vocabulary are possible and unintentional. 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- Primary Coronary artery disease involving coronary bypass graft of [place] heart with angina pectoris ([facility]) Hx of CABG Postsurgical aortocoronary bypass status History of percutaneous coronary intervention Paroxysmal atrial fibrillation ([facility]) Atrial fibrillation Essential hypertension Unspecified essential hypertension Cardiac pacemaker in situ 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 furosemide (LASIX) 40 mg tablet Take 80 mg by mouth daily 05/28/2022 added in this encounter Care Teams Rigging Foreman Relationship Specialty Start Date End Date Say Low MD [address] [place] [address] PCP - General 02/15/17 documented as of this encounter
--- OUTSIDE RECORDS SUMMARY | 2024-09-22 19:05 | XMS_ITS | Encounter Summary ---
Author Organization [facility] Address [address] [place] [address] Care Team Providers Care Market Research Consultant Name Role Phone Say Low MD Primary Care Provider [phone] Encounter Details Date Type Department Care Team (Late st Contact Info) Description 04/27/2021 Telephone [facility] Cardiology [address] [place] [address] Shiva Anne MD [address] [facility] [address] [place] [address] Social History Tobacco Use Types Packs/Day Years Used Date Smoking Tobacco: Former Cigarettes 3 22.6 1 961 - 04/29/1983 Smokeless Tobacco: Never Alcohol Use Standard Drinks/Week Comments No 0 (1 standard drink = 0.6 oz pur e alcohol) Sex and Gender Information Value Date Recorded Sex Assigned at Not on file Legal Sex Male 8:04 PM HEEL SEAT FITTER Gender Identity Male 07/10/2021 8:31 AM CDT Sexual Orientation Straight 06/12/2021 8: 44 AM CDT documented as of this encounter Miscellaneous Notes * Telephone Encounter - Kimmy Kaiser Юлия - 04/27/2021 9:21 AM CDT Patient called and reviewed echo results. Made appt 05/08/21 he will have bloodwork prior to appt at [facility] in [place]. * Telephone Encounter - Kimmy Kaiser - 04/27/2021 9:20 AM CDT ----- Message from Shiva Anne MD sent at 04/27/2021 8:48 AM CDT ----- Can you please reach out to Him know that I reviewed the results of echocardiogram that we ordered for his atrial fibrillation. Echocardiogram does show worsening heart function. There are several possibilities for this Which I think would be worth discussing. Can you see if he is able to come in on May 08, unless we have something soon. He needs updated labs include CBC, CMP documented in this encounter Plan of Treatment Not on file documented as of this encounter Visit Diagnoses Diagnosis Paroxysmal atrial fibrillation (CMS/HCC) (HCC)- Primary Atrial fibrillation Essential hypertension Unspecified essential hypertension documented in this encounter Orders Lab Orders Without Results Count Last Ordered D ate First Ordered Date CBC WITH AUTO DIFFERENTIAL 1 04/27/2021 COMPREHENSIVE METABOLIC PANEL 1 04/27/2021 documented in this encounter Care Teams Market Research Consultant Relationship Specialty Start Date End Date Say Low MD [address] [facility] [address] [place] [address] PCP - General 02/15/17 documented as of this encounter
--- OUTSIDE RECORDS SUMMARY | 2024-09-22 19:05 | XMS_ITS | Encounter Summary ---
Author Organization [facility] Address [address] [place] [address] Care Team Providers Care Manager Of Enterprise Name Role Phone Say Low MD Primary Care Provider [phone] Reason for Visit * Cardiology (Routine) - Closed Specialty Diagnoses / Procedures Referred By Yary silveira Referred To Contact Diagnoses Pacemaker Procedures DEVICE CHECK - IN OFFICE Shiva Anne MD [address] [facility] [place] [address] Phone: tel: fax: [facility] Referral ID Status Reason Start Date Expiration Date Visits Re quested Visits Authorized [id number] Closed 03/27/2021 04/26/2022 1 1 Encounter Details Date Type Department Care Team (Latest Contact Info) Description 03/27/2021 11:00 AM CDT Ancillary Procedure [facility] 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 ??They had a routine [employer] in office device interrogation on 03/27/2021. [...] to SOFI Episodes last 90 days/Comments: AF [place] 8 %, longest duration patient is currently been in atrial fibrillation 100% of the time since February 24, 2021. Ventricular rates are well controlled is the patient is 100% RV paced. NORMAL DEVICE FUNCTION PROGRAMMED Anti-coagulant(s): ??Aspirin 81 mg Anti-arrhythmic(s): ??Coreg 12.5 mg twice daily, Norvasc 5 mg Plan: 1) normal [employer] Pacemaker evaluation 2) [employer] remote transmission scheduled in 3 months. Bhavani White R.N. 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
--- OUTSIDE RECORDS SUMMARY | 2024-09-22 19:05 | XMS_ITS | Encounter Summary ---
Author Organization [facility] Medical [facility] Address [address] [place] [address] Care Team Providers Care Fishing Vessel Mate Name Role Phone Say Low MD Primary Care Provider [phone] Reason for Visit * Reason Onset Date Comments Cardiac cath schedule 05/14/2021 Encounter Details Date Type Department Care Team (Late st Contact Info) Description 05/14/2021 Telephone [facility] Medical [facility] Cardiology [address] [place] [address] Shiva Anne MD [address] [facility] [address] [place] [address] Cardiac cath schedule Social History Tobacco Use Types Packs/Day Years Used Date Smoking Tobacco: Former Cigarettes 3 22.6 1 961 - 04/29/1983 Smokeless Tobacco: Never Alcohol Use Standard Drinks/Week Comments No 0 (1 standard drink = 0.6 oz pur e alcohol) Sex and Gender Information Value Date Recorded Sex Assigned at Not on file 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 Gender Identity Male 07/10/2021 8:31 AM CDT Sexual Orientation Straight 06/12/2021 8: 44 AM CDT documented as of this encounter Miscellaneous Notes * Addendum Note - Vivienne Haley - 06/01/2021 11:55 AM CDTAddended by: VIVIENNE HALEY on: 06/01/2021 11:55 AM Modules accepted: Orders * Telephone Encounter - Vivienne Haley - 06/01/2021 11:28 AM CDT Spoke w/pt, sched [facility]HP w/grafts on 06/18/21 at 10am, with Dr Shipley, pt to arrive 9am Reviewed instructions, verbalized understanding, also mailed a copy to home address at patient's request Last dose Xarelto 06/14 Patient will have labs drawn at [facility], prior to 06/15 NPR Mc/Bs * Telephone Encounter - Moises Dumont - 06/01/2021 11:13 AM CDT Pt called today to set up Cath for week of 06/[address] Shipley. Pt transferred to scheduling team * Telephone Encounter - Shiva Anne MD - 05/14/2021 12:43 PM CDT I spoke with him on the phone. I would prefer that we arrange the heart catheterization the week of the just to make sure we have enough time after his potential back injection make sure there are no bleeding complications. Please help arrange a left heart catheterization with grafts with Dr. Shipley the week of June 15. - indication history of coronary artery disease with bypass graft, worsening systolic dysfunction * Telephone Encounter - Taylor Freeman - 05/14/2021 10:42 AM CDT Patient requesting to schedule cath as soon as possible after 06/01/21. Dr. Anne, ok to proceed?Should this be LHC or R/LHC? Please advise. 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) (HCC) documented in this encounter Results * (ABNORMAL) Protime-INR (06/06/2021) SCRIBED PT 16.7(A) 11.1 - 14.7 sec EXTERNAL LAB SCRIBED INR 1.4(A) 0.9 - 1.1 sec EXTERNAL LAB Blood specimen (specimen) 06/06/2021 Shiva Anne MD LAB BLOOD ORDERABLES nal Result EXTERNAL LAB * (ABNORMAL) Basic metabolic panel (06/06/2021) SCRIBED Sodium 138 137 - 145 mmol/L EXTERNAL LAB SCRIBED Potassium 4.0 3.4 - 5.0 mmol/L EXTERNAL LAB SCRIBED Chloride 104 98 - 107 mmol/L EXTERNAL LAB SCRIBED Carbon Dioxide 26 22 - 30 mmol/L EXTERNAL LAB SCRIBED Anion Gap 8 8 - 16 mmol/L EXTERNAL LAB SCRIBED Urea Nitrogen (BUN) 25(A) 9 - 20 mg/dl EXTERNAL LAB SCRIBED Creatinine 1.20 0.7 - 1.3 mg/dl EXTERNAL LAB SCRIBED Glucose 179(A) 65 - 110 mg/dl EXTERNAL LAB SCRIBED Calcium 8.6 8.4 - 10.2 mg/dl EXTERNAL LAB SCRIBED eGFR in NA NA - NA EXTERNAL LAB SCRIBED eGFR in NonAfrican [place] 58 >/=60 - >/=60 EXTERNAL LAB Blood specimen (specimen) 06/06/2021 us Shiva Anne MD LAB BLOOD ORDERABLES Fi nal Result EXTERNAL LAB * (ABNORMAL) CBC with auto differential (06/06/2021) SCRIBED WBC 9.3 4.5 - 10.0 k/cumm EXTERNAL LAB SCRIBED RBC 4.71 4.6 - 6.20 m/cumm EXTERNAL LAB SCRIBED Hemoglobin 12.0(A) 14.0 - 18.0 g/dL EXTERNAL LAB SCRIBED Hematocrit 39.7(A) 42.0 - 52.0 % EXTERNAL LAB SCRIBED MCH 25.5(A) 26 - 34 pg EXTERNAL LAB SCRIBED MCHC 30.2(A) 32 - 36 g/dL EXTERNAL LAB SCRIBED RDW NA NA - NA g/dl EXTERNAL LAB SCRIBED RDW SD NA NA - NA fL EXTERNAL LAB SCRIBED RDW CV 19.3(A) 11.5 - 14.5 % EXTERNAL LAB SCRIBED Platelets 251 150 - 375 k/cumm EXTERNAL LAB SCRIBED MPV 9.7 7.4 - 10.4 fL EXTERNAL LAB SCRIBED NRBC 0.0 0.0 - 0.2 % EXTERNAL LAB SCRIBED Lymphocytes 16.0(A) 18.3 - 44.2 % EXTERNAL LAB SCRIBED Atypical Lymphocytes NA NA - NA % EXTERNAL LAB SCRIBED Monocytes 7.8 2.6 - 8.5 % EXTERNAL LAB SCRIBED Neutrophils 74.1(A) 45.5 - 73.1 % EXTERNAL LAB SCRIBED Imm Granulocytes 0.5 0 - 0.5 % EXTERNAL LAB SCRIBED Eosinophils 1.4 0 - 4.4 % EXTERNAL LAB SCRIBED Basophils 0.2 0.2 - 1.2 % EXTERNAL LAB SCRIBED NRBC Abs 0.0 0.0 - 0.012 K/cumm EXTERNAL LAB SCRIBED Lymphocytes Abs 1.48 0.9 - 3.2 k/cumm EXTERNAL LAB SCRIBED Monocytes Abs 0.7(A) 0.1 - 0.6 k/cumm EXTERNAL LAB SCRIBED Neutrophils Abs 6.9(A) 1.3 - 6.7 k/cumm EXTERNAL LAB SCRIBED Imm Granulocytes Abs 0.05(A) 0.00 - 0.031 k/cumm EXTERNAL LAB SCRIBED Eosinophils Abs 0.1 0 - 0.3 k/cumm EXTERNAL LAB SCRIBED Basophils Abs 0.0 0.0 - 0.1 k/cumm EXTERNAL LAB SCRIBED Bands NA NA - NA % EXTERNAL LAB SCRIBED Segs NA NA - NA % EXTERNAL LAB SCRIBED Total Cells Diffed NA NA - NA EXTERNAL LAB SCRIBED MCV 84.3 80 - 100 fl EXTERNAL LAB Blood specimen (specimen) 06/06/2021 us Shiva Anne MD LAB BLOOD ORDERABLES Fi nal Result EXTERNAL LAB documented in this encounter Visit Diagnoses Diagnosis 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
--- OUTSIDE RECORDS SUMMARY | 2024-09-22 19:05 | XMS_ITS | Encounter Summary ---
Author Organization [facility] Address [address] [place] [address] Care Team Providers Care Diamond Sizer And Sorter Name Role Phone Say Low MD Primary Care Provider [phone] Encounter Details Date Type Department Care Team (Late st Contact Info) Description 07/13/2021 12:00 PM CDT - 07/13/2021 2:00 PM CDT Surgery [facility] [address] [place] [address] Troy Shipley MD [address] [facility] [address] [place] [address] PCI CHANNING MAJOR CORONARY C9600 - 13542 Surgery Details Date/Time Status Location OR Service Patient Class Case Class Case Type Trauma Case? 07/13/2021 12:00 PM Posted [facility] CARDIAC CHANGE MANAGEMENT SPECIALIST HYBRID E Cardiovascular Outpatient Elective Panel 1 Procedure LRB Anes Op Region Wound Class Comments PCI CHANNING MAJOR CORONARY C9600 - 43223 N/A Conscious Sedation LEFT HEART CATHETERIZATION W ITH CORONARY ANGIOGRAPHY AND WITH OR WITHOUT LEFT VENTRICULOGRAM 95009 N/A IVUS/OCT CORS OR GRAFTS, FIR ST VESSEL (+) 09421 N/A Coronary Flow Velocity (CFR) / Instantaneous Flow Velocity (IFR), 1st Vessel N/A Conscious Sedation Surgeon Surgeon Role Service Panel Troy Shipley MD Primary Cardiovascular 1 Case Notes ORDERS ENTEREDMEDICARE/BS NPRPCI- REQ ROOM E documented in this encounter Social History Tobacco [...] on file 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 Gender Identity Male 07/10/2021 8:31 AM CDT Sexual Orientation Straight 06/12/2021 8: 44 AM CDT documented as of this encounter Last Filed Vital Signs Vital Sign Reading Time Taken Comments Blood Pressure 195/120 07/13/2021 11:54 AM CDT Pulse 80 07/13/2021 11:54 AM CDT Temperature 36.3 ??C (97.4 ??F) 07/13/2021 11:54 AM C DT Respiratory Rate 14 07/13/2021 11:54 AM CDT Oxygen Saturation - - Inhaled Oxygen Concentration - - Weight 103.6 [...] Care Physician at Discharge: Say Low MD [phone] Admission Date: 07/13/2021 Discharge Date: 07/14/2021 Admission Location: [facility] Problems/Diagnoses: Principal Problem: Coronary artery disease involving coronary bypass graft of [place] heart with angina pectoris (CMS/HCC) (HCC) Active [...] Active Issues Requiring Follow-up: Fu with primary cdl a driver Dr. Anne. Will repeat TTE in about 2 months post PCI and OMT to determine need for PRODUCTION LAPPING MACHINE OPERATOR upgrade/further therapies Test Results Pending at Discharge: Operative Procedures Performed: Procedure(s): PCI CHANNING MAJOR CORONARY C9600 - 06870 LEFT HEART CATHETERIZATION WITH CORONARY ANGIOGRAPHY AND WITH OR WITHOUT LEFT VENTRICULOGRAM 62049 IVUS/OCT CORS OR GRAFTS, FIRST VESSEL (+) 61589 Coronary Flow Velocity (CFR) / Instantaneous Flow [...] mg-mcg-mcg tablet 1 tab daily Generic drug: bjtjyfdr-jen-UX-lycopen-lutein cholecalciferol 2000 unit tablet Take 2,000 Units by mouth 2 (two) times a day. Commonly known as: VITAMIN D-3 clopidogreL 75 mg tablet Take 1 tablet (75 mg total) by mouth daily Commonly known as: PLAVIX Fish OiL 300-1,000 mg capsule 1 capsule daily Generic drug: omega 2-ehe-nna-fish oil furosemide 40 mg tablet Take 40 [...] Ellipta 100-62.5-25 mcg inhaler daily Generic drug: qfxouyutjiz-cndpjtnzx-ihqkfydy Outpatient Follow-Up: Future Appointments Date Time Provider Department Center 09/14/2021 10:30 AM Shiva Anne MD [facility] MG Decent 03/04/2022 9:15 AM [facility] [id number] N [facility] Main IMG 03/04/2022 10:20 AM Elvin Dsouza [...] route every day 30 0 11/17/2015 4 moucklth-ojz-HJ-ly copen-lutein (CENTRUM SILVER) 0.4-300-250 mg-mcg-mcg tablet 1 [...] Patient Name: Drew Pak : 1940 Room/Bed: [place] [address]/[address] Insurance: Medicare Traditional Progress Note Character Actor: ÁNGELA Valle Date: 07/14/2021 Referring Diagnosis for [...] fats)and exercise. Advised pt to consult their balance truer, nurse, and/or physician if they have any [...] working towards eventually trying to reach the [place] [employer] recommendations in regardsto exercise: 150+ [...] when it would be appropriate to call Model And Mold Maker Plaster's office, go to the ER, or call 911. ?? Insurance Coverage: Briefly explained general insurance coverage for OCR, but assured pt that OCR facility will usuallycall insurance and inform pt of more of an approximate coverage. ?? Post-Discharge: Explained process between discharge from hospital, and getting set up in an OCR program - f/u with Model And Mold Maker Plaster, CRN f/u calls, OCR program contact. Conclusion Pt seems unlikely to participate in OCR. I anticipate low motivation as a potential barrier to pt participating in OCR program. Reassured pt of importance and health care provider support of OCR. Pt verbalized understanding of education, and all questions were answered to the best of my ability. Will complete order for OCR to be sent to [employer]. Thank you for allowing us to health care assistant in the care of this patient, please don't hesitate to contact the Cardiac Rehab Navigator office with any questions: [phone]. documented in this encounter H&P Notes * Troy Shipley MD - 07/13/2021 12:00 PM CDT I have reviewed the H&P, examined the patient, and endorse the findings as written. Plan of Care : Based on the above findings, I consider Drew Pak to be an acceptable risk for : Procedure(s): PCI ATHERECTOMY - MAJOR CORONARY 30520 Source Note - Troy Shipley MD - 06/18/2021 9:39 AM CDT General H&P Subjective Patient is a 81 y.o. male with chief complaint of heart failure HPI: 81M with remote CABG, AF, PPM found to have worsening LV function, referred for LHC Past Medical History: Diagnosis Date ??? Arthritis [...] by mouth nightly ) 30 0 ??? awxgskay-cyj-DV-lycopen-lutein (CENTRUM SILVER) 0.4-300-250 mg-mcg-mcg tablet 1 tab [...] artery disease involving coronary bypass graft of [place] heart with angina pectoris (CMS/HCC) (HCC) Plan Proceed with [facility] documented in this encounter Miscellaneous Notes * Plan of Care - Melanie Birmingham, RADHA - 07/14/2021 9:33 AM CDT Goals: Clinical [...] site dry intact good blood return . [place] fingers. No c/o pain to site. C/o generalized pain . * Plan of Care - Michael Greenberg RN - 07/13/2021 5:57 PM CDT Goals: Clinical Goals for the Shift: Monitor VS, labs, activity, puncture site. DC planning for am Summary: Admitted to 1354 b from [facility]. Awake and alert. VSS. A fib 70s. [...] artery disease involving coronary bypass graft of [place] heart with angina pectoris (CMS/HCC) (HCC) CORONARY OCT, 1ST VESSEL Routine 07/13/2021 3:40 PM CDT Coronary artery disease involving coronary bypass graft of [place] heart with angina pectoris (CMS/HCC) (HCC) LEFT HEART CATHETERIZATION WITH CORONARY ANGIOGRAPHY AND WITH AND WITHOUT LEFT VENTRICULOGRAM Routine 07/13/2021 3:40 PM CDT Coronary artery disease involving coronary bypass graft of [place] heart with angina pectoris (CMS/HCC) (HCC) CHANNING MAJOR CORONARY Routine 07/13/2021 3: 40 PM CDT Coronary artery disease involving coronary bypass graft of [place] heart with angina pectoris (CMS/HCC) (HCC) POCT ACTIVATED CLOTTING TIME, HIGH RANGE Routine 07/13/2021 2:59 PM CDT POCT ACTIVATED CLOTTING TIME, HIGH RANGE Routine 07/13/2021 2:34 PM CDT POCT ACTIVATED CLOTTING TIME, HIGH RANGE Routine 07/13/2021 2:23 PM CDT ECG 12-LEAD STAT 07/13/2021 11:43 AM CDT documented in this encounter Results * eGFR (07/14/2021 4:06 AM CDT) [facility] eGFR 61 mL/min/1.7 3 m2 [facility] Comment: Interpretive Data Reference Interval Normal ?>/= [...] MD LAB BLOOD ORDERABLES Fin al Result [facility] [address] Department [place] [address] * (ABNORMAL) CBC without differential (07/14/2021 4:06 AM CDT) [facility] WBC 7.8 3.8 - 9.9 K/cumm [facility] Hgb 11.1(L) 13.0 - 17.5 g/dL [facility] Hct 37.3(L) 38.9 - 50.3 % [facility] Plt 184 150 - 400 K/cumm [facility] MPV 11.3 9.1 - 12.3 fL [facility] RBC 4.32 4.30 - 5.80 M/cumm [facility] MCV 86.3 81.3 - 96.4 fL [facility] MCH 25.7(L) 27.1 - 33.3 pg [facility] MCHC 29.8(L) 32.3 - 35.7 g/dL [facility] RDW CV 20.5(H) 11.1 - 14.9 % [facility] RDW SD 61.6(H) 35.7 - 48.1 fL [facility] NRBC abs 0.00 0.00 - 0.01 K/cumm [facility] Blood 07/14/2021 4:06 AM CDT 07/14/2021 5:09 AM CDT Troy Shipley MD LAB BLOOD ORDERABLES Fin al Result [facility] [address] Department [place] [address] * Basic metabolic panel (07/14/2021 4:06 AM CDT) Sodium 140 135 - 145 mmol/L [facility] Potassium, pl 4.1 3.3 - 4.9 mmol/L [facility] Chloride 106 97 - 110 mmol/L [facility] CO2 22 22 - 32 mmol/L [facility] Anion gap 12 2 - 15 mmol/L [facility] BUN 17 8 - 25 mg/dL [facility] Creatinine 1.13 0.80 - 1.30 mg/dL [facility] Glucose 120 70 - 199 mg/dL [facility] Comment: Interpretive Data Fasting glucose >/= [...] 2017. Calcium 8.6 8.5 - 10.3 mg/dL [facility] Blood 07/14/2021 4:06 AM CDT 07/14/2021 5:10 AM CDT Troy Shipley MD LAB BLOOD ORDERABLES Fin al Result Performing Organization Address [facility] de Phone Number [facility] [address] Department [place] [address] * ECG 12 lead (07/13/2021 3:59 PM CDT) 07/13/2021 3:59 PM CDT Narrative [facility] 07/14/2021 8:42 AM CDT Vent Rate: 78 bpm RR Interval: 766 msec LA Interval: 0 msec QRS Duration: 178 msec QT Interval: 450 msec QTC Interval: 483 msec P-R-T Cardinal: 0 - 115 - -35 degrees ATRIAL FIBRILLATION WITH ABERRANT CONDUCTION OR VENTRICULAR PREMATURE COMPLEXES RIGHT BUNDLE BRANCH BLOCK AND POSSIBLE RIGHT VENTRICULAR HYPERTROPHY LEFT POSTERIOR FASCICULAR BLOCK NONSPECIFIC ST-T ABNORMALITY ABNORMAL ECG Electronically Signed By: Elia Jett MD ??[facility] Card Result [facility] Troy Shipley MD ECG ORDERABLES Final Re sult Performing Organization Address [facility] de Phone Number [facility] [employer] [facility] * CHANNING MAJOR CORONARY, LEFT HEART CATHETERIZATION WITH CORONARY ANGIOGRAPHY AND WITH AND WITHOUT LEFT VENTRICULOGRAM, CORONARY OCT, 1ST VESSEL, CORONARY FLOW VELOCITY (CFR) / INSTATANEOUS FLOW VELOCITY (IFR), 1ST VESSEL (07/13/2021 3:40 PM CDT) Anatomical Region Laterality Modality X-Ray Angiograph y Narrative 07/13/2021 3:54 PM CDT [facility] Cardiology ?? [address], [id number] ?? [place], [place], [address] ?? Left Heart Catheterization Procedure Report 81 year old male with prior CABG, systolic HF, PPM, DM2 found to have severe proximal LAD lesion on recent cath referred for PCI. Access:7F Right Radial Artery Catheter:7 Fr AL3 guide Injection:Left Main Trunk Closure:TR band Anticoagulation:71077Dkeje Heparin, Clopidogrel and Aspirin Air Kerma:1650 mGy Fluoro time:16.5 min Contrast:120 ml Optiray Sedation:1mg Versed, 50 mcg fentanyl Procedural details: After risks, benefits, and alternatives to the procedure were explained to the patient, they agreed to proceed. ??After signing informed consent the patient was brought to the cardiac catheterization laboratory. ??There were prepped and draped in sterile fashion. A 7 Hungarian sheath was inserted in the Right Radial Artery using the modified Seldinger technique . We then crossed the aortic valve and measured pressures using a AL3 catheter. ?? PCI details: Using a 7 Hungarian AL3 guide catheter, we advanced a Runthrough wire to the distal LAD. A 7 Hungarian Guidezilla was used for better support. We [...] CDT) ACT 313(H) 87 - 138 sec [facility] Blood 07/13/2021 2:59 PM CDT 07/13/2021 2:59 PM CDT Troy Shipley MD LAB BLOOD ORDERABLES Fin al Result [facility] [address] Department [place] [address] * (ABNORMAL) POC Activated Clotting Time, High Range (07/13/2021 2:34 PM CDT) ACT 255(H) 87 - 138 sec [facility] Blood 07/13/2021 2:34 PM CDT 07/13/2021 2:34 PM CDT Troy Shipley MD LAB BLOOD ORDERABLES Fin al Result Performing Organization Address City/[facility]/ZIP Co de Phone Number [facility] [address] Department of Laboratories [place], [place] [id number] * (ABNORMAL) POC Activated Clotting Time, High Range (07/13/2021 2:23 PM CDT) ACT 194(H) 87 - 138 sec [facility] Blood 07/13/2021 2:23 PM CDT 07/13/2021 2:23 PM CDT Troy Shipley MD LAB BLOOD ORDERABLES Fin al Result Performing Organization Address [facility] Co de Phone Number [facility] [address] [place] [address] * ECG 12 lead (07/13/2021 11:43 AM CDT) 07/13/2021 11:4 3 AM CDT Narrative [facility] - 07/13/2021 2:31 PM CDT Vent Rate: 77 bpm RR Interval: 777 msec LA Interval: 0 msec QRS Duration: 178 msec QT Interval: 423 msec QTC Interval: 454 msec P-R-T Cardinal: 0 - 116 - -46 degrees ATRIAL FIBRILLATION WITHVENTRICULAR PREMATURE COMPLEXES RIGHT BUNDLE BRANCH BLOCK LEFT POSTERIOR FASCICULAR BLOCK ST DEVIATION AND MODERATE T-WAVE ABNORMALITY, ABNORMAL ECG Electronically Signed By: Quentin Manzo DO [facility] Troy Shipley MD ECG ORDERABLES Final Re sult Performing Organization Address [facility]/ZIP Co de Phone Number [facility] [employer] [facility] documented in this encounter Visit Diagnoses Diagnosis Coronary artery disease involving coronary bypass graft of [place] heart with angina pectoris (CMS/HCC) (HCC)- Primary Coronary artery disease involving coronary bypass graft of [place] heart with angina pectoris (CMS/HCC) (HCC) documented in this encounter Admitting Diagnoses Diagnosis Coronary artery disease involving coronary bypass graft of [place] heart with angina pectoris (CMS/HCC) (HCC) CAD [...] puff 2 puff, inhalation, 2 times daily (social work therapist), First dose on Tue07/14/21 at 0800, Rinse mouth with water after use. Do not swallow. With Spiriva for trelegy Ellipta, I /authorizing provider attest that the patient meets the approved [facility] Use Criteria: No, Indications: TI for home [...] attest that the patient meets the approved [facility] Use Criteria: Yes, Approving Provider: catina Indications: type 2 diabetes mellitusIndications:type 2 diabetes mellitus Given 07/14/2021 9:22 AM CDT 10 mg fentaNYL (SUBLIMAZE) preservative free injection As needed, Starting on Tue07/13/21 at 1408, Intra-Procedure (CV) Given 07/13/2021 2:08 PM CDT 50 mcg furosemide (LASIX) tablet 40 mg 40 mg, oral, Daily, First dose on Tue07/14/21 at 0900 Given 07/14/2021 9:21 AM CDT 40 mg heparin 1,000 unit/mL injection As needed, Starting on Tue07/13/21 at 1411, Intra-Procedure (CV) Given 07/13/2021 2:30 PM CDT 6,000 Units Given 07/13/2021 2:17 PM CDT 6,000 Units Given 07/13/2021 2:11 PM CDT 5,000 Units heparin in 0.9% sodium chloride 1,000 units/500 mL (2 unit/mL) infusion (premix) As needed, Starting on Tue07/13/21 at 1408, Intra-Procedure (CV) Given 07/13/2021 2:08 PM CDT 1,500 mL ioversoL (OPTIRAY 350) injection As needed, Starting on Tue07/13/21 at 1529, Intra-Procedure (CV) Given 07/13/2021 3:29 PM CDT 120 mL lidocaine (XYLOCAINE) 20 mg/mL (2 %) injection As needed, Starting on Tue07/13/21 at 1409, Intra-Procedure (CV), Indications: Administration of Local AnesthesiaIndications:Administrat ion of Local Anesthesia Given 07/13/2021 2:09 PM CDT 1 mL Right Radial losartan (COZAAR) tablet 100 mg 100 mg, oral, Nightly, First dose on Tue07/13/21 at 2100 Given 07/13/2021 8:21 PM CDT 100 mg midazolam (VERSED) 1 mg/mL preservative free injection Administer over 2 Minutes, As needed, Starting on Tue07/13/21 at 1408, Intra-Procedure (CV) Given 07/13/2021 2:08 PM CDT 1 mg niCARdipine (CARDENE) 500 mcg/5 mL in sodium chloride 0.9% (premix) As needed, Starting on Tue07/13/21 at 1411, Intra-Procedure (CV) Given 07/13/2021 2:11 PM CDT 200 mcg nitroglycerin injection 100 mcg/mL in D5W 10 mL As needed, Starting on Tue07/13/21 at 1411, Intra-Procedure (CV) Given 07/13/2021 2:58 PM CDT 200 mcg Given 07/13/2021 2:21 PM CDT 200 mcg Given 07/13/2021 2:11 PM CDT [address] (PROTONIX) extended release tablet 40 [...] inhaler 2 puff 2 puff, inhalation, Daily (social work therapist), First dose on Tue07/14/21 at 0900, With Symbicort for Trelegy Ellipta documented in this encounter Active and Recently Administered Medications Times are shown in CDT. Scheduled Medication Order 07/12/2021 07/13/2021 07/14/2021 allopurinoL (ZYLOPRIM) tablet 150 mg 150 mg, oral, Daily, First dose on Tue07/14/21 at 0900 09 (Given - Provid er: Melanie Birmingham, RADHA) aspirin enteric coated tablet 81 mg 81 mg, oral, Daily, First dose on Tue07/14/21 at 0900, Do not crush, chew, cut, dissolve, open or otherwise manipulate tablet/capsule. 921 (Given - Provid er: Melanie Birmingham RN) budesonide-formoteroL (SYMBICORT) 160-4.5 mcg/actuation inhaler 2 puff(Linked Group 1) 2 puff, inhalation, 2 times daily (social work therapist), First dose on Tue07/14/21 at 0800, Rinse mouth with water after use. Do not swallow. With Spiriva for trelegy Ellipta, I /authorizing provider attest that the patient meets the approved [facility] Use Criteria: No, Indications: TI for home [...] attest that the patient meets the approved [facility] Use Criteria: Yes, Approving Provider: catina, Indications: [...] puff(Linked Group 1) 2 puff, inhalation, Daily (social work therapist), First dose on Tue07/14/21 at 0900, With Symbicort for Trelegy Ellipta 0910 (Not Given - Provider: Doris Wolfe, ANABEL - Reason: Patient/family refused) Continuous Medication Order [...] 1408 (Given - Provider: Elia Ledesma, RADHA) heparin 1,000 unit/mL injection (CANCELED) As needed, Starting on Tue07/13/21 at 1411, Intra-Procedure (CV) 1411 (Given - Provider: Stanislav Shipley MD)1417 (Given - Provider: Elia Ledesma, RN)1430 (Given - Provider: Elia Ledesma, RADHA) heparin in 0.9% sodium chloride 1,000 units/500 [...] 1408 (Given - Provider: Elia Ledesma RN) niCARdipine (CARDENE) 500 mcg/5 mL in sodium [...] puffJump to med 2 puff, inhalation, Daily (social work therapist), First dose on Tue07/14/21 at 0900, With Symbicort for Trelegy Ellipta And budesonide-formoteroL (SYMBICORT) 160-4.5 mcg/actuation inhaler 2 puffJump to med 2 puff, inhalation, 2 times daily (social work therapist), First dose on Tue07/14/21 at 0800, Rinse mouth with water after use. Do not swallow. With Spiriva for trelegy Ellipta, I /authorizing provider attest that the patient meets the approved [facility] Use Criteria: No, Indications: TI for home Trelegy Ellipta documented in this encounter Orders Medications Ordered That Addy ht Not Have Been Administered Count Last Ordered Date First Ordered Date acetaminophen (TYLENOL) tablet 650 mg 1 08/2021 odbtgudzwaa-gqocydeux-ugatoh er (TRELEGY ELLIPTA) 100-62.5-25 mcg inhaler 1 puff 1 07/13/2021 sodium chloride 0.9% infusion 1 [...] 07/13/2021 documented in this encounter Care Teams Diamond Sizer And Sorter Relationship Specialty Start Date End Date Say Low MD [address] [place] [address] PCP - General 02/15/17 documented as of this encounter
--- OUTSIDE RECORDS SUMMARY | 2024-09-22 19:05 | XMS_ITS | Encounter Summary ---
Author Organization [facility] Address [address] [place] [address] Care Team Providers Care Carrier Driver Name Role Phone Say Low MD Primary Care Provider [phone] Reason for Visit * Cardiology (Routine) - Closed Specialty Diagnoses / Procedures Referred By Yary silveira Referred To Contact Diagnoses Randall II Procedures DEVICE CHECK - REMOTE Wayne Davis MD Phone: tel: fax: [facility] Referral ID Status Reason Start Date Expiration Date Visits Re quested Visits Authorized [id number] Closed 03/18/2021 04/17/2022 1 1 Encounter Details Date Type Department Care Team (Late st Contact Info) Description 12/28/2021 3:15 PM CDT Ancillary Procedure Ar[facility] [address] [place] [address] Mobitz II; Pacemaker Social History Tobacco Use [...] on file 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 ??They had a routine [employer] remote transmission on 12/28/2021. Device implant [...] to SOFI Episodes last 90 days/Comments: AF Eckerman 100 % There were no new ventricular events noted on today's remote interrogation. NORMAL DEVICE FUNCTION PROGRAMMED Anti-coagulant(s): ??Xarelto 20 mg, Plavix 75 mg Anti-arrhythmic(s): ??Coreg 25 mg Plan: 1) normal [employer] Pacemaker evaluation 2) [employer] remote transmission scheduled in 3 months. Bhavani White R.N. us Wayne Davis MD [facility] PRO CEDURES Final Result documented in this encounter Visit Diagnoses Diagnosis Mobitz II Mobitz (type) II atrioventricular block Pacemaker Cardiac pacemaker in situ documented in this encounter Care Teams Carrier Driver Relationship Specialty Start Date End Date Say Low MD [address] [facility] [address] [place] [address] PCP - General 02/15/17 documented as of this encounter
--- OUTSIDE RECORDS SUMMARY | 2024-09-22 19:05 | XMS_ITS | Encounter Summary ---
Author Organization [facility] Address 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 (Primary Dx); Hx of CABG; Cardiac pacemaker in situ; Mobitz II Social History Tobacco Use Types Packs/Day Years Used Date Smoking Tobacco: Former Cigarettes 3 22.6 1 961 - 04/29/1983 Smokeless Tobacco: Never Alcohol Use Standard Drinks/Week Comments No 0 (1 standard drink = 0.6 oz pur e alcohol) Sex and Gender Information Value Date Recorded Sex Assigned at Not on file 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 Gender Identity Male 07/10/2021 8:31 AM CDT Sexual Orientation Straight 06/12/2021 8: 44 AM CDT documented as of this encounter Last Filed Vital Signs Vital Sign Reading Time Taken Comments Blood Pressure 132/70 05/08/2021 2:37 PM CDT Pulse 72 05/08/2021 2:37 PM CDT Temperature - - Respiratory Rate - - Oxygen Saturation - - Inhaled Oxygen Concentration - - Weight 105.9 kg (233 lb 6.4 oz) 05/08/2021 2:37 PM CDT Height 175.3 cm (5' 9 ) 05/08/2021 2:37 PM CDT Body Mass Index 34.47 05/08/2021 2:37 PM CDT documented in this encounter Progress Notes * Shiva Anne MD - 05/08/2021 2:30 PM CDT Images from the original note were not included. [facility] Cardiology [address], [address] [place], [place], [address] Cardiology Electrophysiology Niko Echevarria, MD Wayne Davis,, MD Arslan Alcala, MD Miles Lenz, MD Patrick Avalos, MD Patrick Taylor, MD Esther Miller, LAND SURVEYOR MANAGER Quentin Manzo, DO Elgin Bowles, MD Elia Jett, MD Shanda Edge, MD Gilson Eden, MD Kale Faith, DO Shiva Anne, MD Carolann Montesinos, LAND SURVEYOR MANAGER Kimmy Power, LAND SURVEYOR MANAGER Xiomara Millan, LAND SURVEYOR MANAGER Patient Name: Drew Pak Provider: Shiva Anne MD : 1940 Date of Service: 05/08/2021 Referring: Maranda CHIEF COMPLAINT: Atrial Fibrillation HISTORY OF PRESENT ILLNESS: 81 [...] RV function - moderate aortic valve regurgitation Brought him in today to discuss these findings and discuss further workup He did have a stress MPI May 2019 with diminished perfusion in the mid to apical septum both rest and stress which was thought to be due to diaphragmatic attenuation. His biggest issues are ongoing back pain - he has had several back surgeries over the years - and is planning on possibly getting injections in his back, which is very important to him I reviewed this patient's Allergies and Current Medication List and updated as needed in the medical record. I reviewed this patient's Past Medical History, Social History, and Family History and updated as needed in the medical record. MEDICATIONS: Outpatient Encounter Medications as of 05/08/2021 Medication Sig Dispense Refill ??? allopurinoL (ZYLOPRIM) [...] by mouth nightly ) 30 0 ??? gcodmfcj-gha-FP-lycopen-lutein (CENTRUM SILVER) 0.4-300-250 mg-mcg-mcg tablet 1 tab [...] Ellipta 100-62.5-25 mcg inhaler daily ??? [DISCONTINUED] carvediloL (COREG) 12.5 mg tablet TAKE 1 TABLET BY MOUTH TWICE DAILY WITH MEALS 180 tablet 0 Facility-Administered Encounter Medications as of 05/08/2021 Medication Dose Route Frequency Provider Last Rate Last Admin ??? sodium chloride 0.9% flush 0.5-20 mL 0.5-20 mL intra-catheter Q8H [facility] Patrick Taylor MD ??? sodium chloride 0.9% [...] stated in HPI above. PHYSICAL EXAM: BP 132/70 (BP Location: Left arm, Patient Position: Sitting) Pulse 72 Ht 175.3 cm (5' 9 ) Wt 105.9 kg (233 lb 6.4 oz) BMI 34.47 kg/m?? General: Well appearing, No pain or [...] dysfunction without heart failure 429.9 I51.89 2. Hx of CABG V45.81 Z95.1 3. Cardiac pacemaker in situ V45.01 Z95.0 4. Mobitz II 426.12 I44.1 Data Reviewed: 1. 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 New Orders: Extensive discussion was had regarding risks and benefits of left heart catheterization. Plan for left heart catheterization procedure, but given stability of symptoms and his significant back pain reasonable to postpone until after a trial of back injections which from procedural standpoint is fairly low risk and a cardiac perspective, and certainly if he gets any type of revascularization during catheterization this would preclude any type of back procedure for at least a year. 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 (Primary) - worsening systolic heart failure EF 53 now 35% - fairly well compensated - unclear if this is tachycardia mediated or due to ischemia from his CABG - he had a fairly nonischemic stress test in 2019 - I think given the significant reduction in EF a repeat coronary assessment is warranted in something he would like to do - we discussed significantly the risks and benefits of pursuing this for procedure will standpoint,bleeding standpoint as well as from a kidney stand (GFR currently around 42) Plan for left heart catheterization procedure, but given stability of symptoms and his significant back pain reasonable to postpone until after a trial of back injections which from procedural standpoint is fairly low risk and a cardiac perspective, and certainly if he gets any type of revascularization during catheterization this would preclude any type of back procedure for at least a year. - another possibility is this is pacemaker induced cardiomyopathy from chronic RV pacing which is not 100% - however would want to have a left heart catheterization prior to any biventricular upgrade Hx of CABG CKD: 07/28/20 Cr 1.6 gfr 42 08/15/20 Cr 1.5 gfr 45 12/16/20 Cr 1.7, gfr 39, CO2 29, UA 1+pro 3+glc Hb 12.1, A1C 5.7, glc 129 04/28/21 Cr 1.6, gfr 42, CO2 25, Hb 11.8, PTH 47.6, Upro 80, Paroxysmal atrial fibrillation ([facility]) (Primary) #Atrial Fibrillation Management - Persistent Afib - Current Rhythm: AFib but with a paced ventricular rhythm - Rate Controlled at a paced rate of 70 - We are currently pursuing a rate/rhythm control strategy: Rate Med(s): Coreg 12.5 mg b.i.d. - Anticoagulation: [id number] Score: 4 Current Anticoagulant: Xarelto today - will be okay to hold Xarelto prior to his back injection Coronary artery disease involving coronary bypass graft of [place] heart with angina pectoris ([facility]) Reviewed optimized ongoing medical management for coronary artery disease 1. Antiplatelet therapy: Current regimen includes asa 81mg 2. Lipid therapy: current regimen includes simvastatin 3. Discussed importance of tobacco cessation. Patient is a No 4. Blood pressure management. Current blood pressure is Vitals BP 132/70 (BP Location: Left arm, Patient Position: Sitting) Pulse 72 Ht 175.3 cm (5' 9 ) Wt 105.9 kg (233 lb 6.4 oz) BMI 34.47 kg/m?? This represents adequate control. 5. Reviewed importance adequate glycemic control. No results found for: HGBA1C Patient is diabetic:No Mobitz II Pacemaker Continue routine checks 100% RV paced, possibility for pacemaker induced cardiomyopathy is the May benefit from upgrade in the future but needs ischemic evaluation 1st Essential hypertension Vitals BP 132/70 (BP Location: Left arm, Patient Position: Sitting) Pulse 72 Ht 175.3 cm (5' 9 ) Wt 105.9 kg (233 lb 6.4 oz) BMI 34.47 kg/m?? 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 Despite careful review of this note, variances in spelling and vocabulary are possible and unintentional. 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- Primary Hx of CABG Postsurgical aortocoronary bypass status Cardiac pacemaker in situ Mobitz II Mobitz (type) II atrioventricular block documented in this encounter Discontinued Medications Medication Sig Discontinue Reason Start Date End Da te carvediloL (COREG) 12.5 mg tablet TAKE 1 TABLET BY MOUTH TWICE DAILY WITH MEALS Formulary change 11/03/2020 05/08/2021 documented as of this encounter Historical Medications * This list may reflect changes made after this encounter. carvediloL (COREG) 25 mg tablet Take 25 mg by mouth every 12 (twelve) hours 04/01/2021 05/28/2022 added in this encounter Care Teams Shop Coordinator Relationship Specialty Start Date End Date Say Low MD [address] [facility] [address] [place] [address] PCP - General 02/15/17 documented as of this encounter
--- OUTSIDE RECORDS SUMMARY | 2024-09-22 19:05 | XMS_ITS | Encounter Summary ---
Author Organization [facility] Address [address] [place] [address] Care Team Providers Care Rehabilitation Clerk Name Role Phone Say Low MD Primary Care Provider [phone] Reason for Visit * Reason Onset Date Comments Pt in ER 09/10/2021 Encounter Details Date Type Department Care Team (Late st Contact Info) Description 09/10/2021 Telephone [facility] Cardiology [address] [place] [address] Shiva Anne MD [address] [facility] [place] [address] Pt in ER Social History Tobacco Use Types Packs/Day [...] on file 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 Pt states he had Pneumonia 2 weeks ago and had to get a CXR done today as a follow up. Pt states he has fluid on the lung and he has very low oxygen . OS stat 74. Pt wanting to report this information to Dr Anne as pt is scheduled to be seen Tuesday NSED SALES ASSISTANT documented in this encounter Plan of Treatment Not on file documented as of this encounter Visit Diagnoses Not on filedocumented in this encounter Care Teams Rehabilitation Clerk Relationship Specialty Start Date End Date Say Low MD [address] [facility] [address] [place] [address] PCP - General 02/15/17 documented as of this encounter
--- OUTSIDE RECORDS SUMMARY | 2024-09-22 19:05 | XMS_ITS | Encounter Summary ---
Author Organization [facility] Healthcare Address [address] [place] [address] Care Team Providers Care Insecticide Expert Name Role Phone Say Low MD Primary Care Provider [phone] Reason for Referral * Diagnostic Imaging (Routine) - Closed Specialty Diagnoses / Procedures Referred By Yary silveira Referred To Contact Diagnoses Nephrolithiasis Procedures US Retroperitoneal Complete Elvin Carrillo NP Phone: tel: fax: [address] [address] Referral ID Status Reason Start Date Expiration Date Visits Re quested Visits Authorized [id number] Closed 03/03/2021 04/02/2022 1 1 Reason for Visit * Diagnostic Imaging (Routine) - Closed Specialty Diagnoses / Procedures Referred By Yary silveira Referred To Contact Diagnoses Nephrolithiasis Procedures US Retroperitoneal Complete Elvin Carrillo NP Phone: tel: fax: [address] [address] Referral ID Status Reason Start Date Expiration Date Visits Re quested Visits Authorized [id number] Closed 03/03/2021 04/02/2022 1 1 Encounter Details Date Type Department Care Team (Latest Contact Info) Description 03/16/2022 9:38 AM CDT - 03/16/2022 11:59 PM CDT Hospital Encounter [facility] [address] [place] [address] Dong Soto MD [address] [facility] [address] [place] [address] Elvin Carrillo NP [address] [place] [address] Nephrolithiasis Discharge Disposition: Discharge to home or [...] on file 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 Gender Identity Male 07/10/2021 8:31 AM CDT [...] 1 capsule daily 0 0 09/10/2015 2 Trelegy Ellipta 100-62.5-25 mcg inhaler daily 08/15/2020 2 Xarelto 20 mg tabletIndications: Paroxysmal atrial fibrillation (CMS/HCC) (HCC) TAKE 1 TABLET(20 MG) BY MOUTH DAILY 30 tablet 11 03/12/2022 3 documented as of this encounter Discharge Disposition Disposition Code Departure Means Destination Discharge to home or self care documented in this encounter Plan of Treatment Not on file documented as of this encounter Procedures Procedure Name Priority Date/Time Associated Diagnosis Comments US RETROPERITONEAL COMPLETE Routine 03/16/2022 10:33 AM CDT Nephrolithiasis documented in this encounter Results * US Retroperitoneal Complete (03/16/2022 10:33 AM CDT) Anatomical Region Laterality Modality Abdomen N/A Ultrasound 03/16/2022 10:4 7 AM CDT Impressions 03/16/2022 11:45 AM CDT 1. ??5 mm nonobstructing right renal stone and 4 mm nonobstructing left renal stone. ??No evidence of hydronephrosis. 2. ??Stable bilateral nephromegaly. Dr. Mckeon (associate professor of radiology) personally participated in sonographic imaging of this [...] hydronephrosis. 2. Stable bilateral nephromegaly. Dr. Mckeon (associate professor of radiology) personally participated in sonographic imaging of this patient. Dictated by: Bladimir Mckeon MD The radiology attending physician has personally reviewed this study, and had reviewed and/or edited this written report and agrees with it. Electronically signed by: Wojciech Williamson M.D. us Elvin Carrillo NP IMG US PROCEDURES Final Result documented in this encounter Visit Diagnoses Diagnosis Nephrolithiasis Calculus of kidney documented in this encounter Care Teams Insecticide Expert Relationship Specialty Start Date End Date Say Low MD [address] [facility] [address] [place], [place] [address] PCP - General 02/15/17 documented as of this encounter
--- OUTSIDE RECORDS SUMMARY | 2024-09-22 19:05 | XMS_ITS | Encounter Summary ---
Author Organization [facility] Address [address] [place] [address] Phone Care Team Providers Care Bitumastic Applier Name Role Phone Say Low MD Primary Care Provider [phone] Reason for Visit * Reason Comments Nephrolithiasis Encounter Details Date Type Department Care Team (Latest Contact Info) Description 03/16/2022 10:40 AM CDT Office Visit [facility] - [facility] Urology [address] [place] [address] Advanced Medicine 11th [place] [address] [place] [address] Elvin Carrillo NP [address] [place] [address] Nephrolithiasis (Primary Dx) Social History Tobacco Use Types [...] on file 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 male. Chief Complaint Nephrolithiasis HPIDrew Pak??81 y.o.??male with hx of??BPH, elevated PSA, CABG 2003, pacemaker here for follow up of nephrolithiasis and urethral stricture. ?? 1) Urolithiasis He is s/p Left [...] uric acid.??He is taking Allopurinol as well. After his laminectomy in 07/2020, he had an inpatient lab that showed elevated Potassium level. HisUrokit K 10meq was decreased to once daily. Repeat serum potassium level was WNL at 4.5 on 07/28/20and 4.6 on 08/15/20. He had a 24 hour urine kit last year but he has not completed it yet, reports he was taking VitaminC and did not want to get off of it d/t Covid. ?? The patient is currently asymptomatic and denies flank pain, fever, chills, nausea, vomiting or hematuria.??He denies passing any stones in the last year. Last RBUS on 03/03/21 showed same RLP intrarenal 5mm nonobstructing stone. ?? 2) BPH/LUTS He was found to have a soft bulbar urethral stricture during 01/17/19 URS. He denies any issues withurination and reports his urine stream is strong. He takes Tamsulosin 0.4mg for his BPH/LUTS. He has urgency and frequency but attributes it to his Furosemide 40mg use. ?? He has hx??of elevated PSA with two prostate biopsies in 12/2010 (path was benign and 08/2010 (path was focal glandular atypia). Last PSA was 1.1 on 05/31/18. ?? He reports he still has chronic lumbar back pain, hx of back surgery x 3. He had recent Right TKA in 12/23/20. Had Covid pneumonia in 09/2021. ?? Review of Systems Constitutional: Negative for [...] daily 90 tablet 3 ??? carvediloL (COREG) 25 mg tablet Take [...] Trelegy Ellipta 100-62.5-25 mcg inhaler daily ??? Xarelto 20 mg tablet TAKE 1 TABLET(20 MG) BY MOUTH DAILY 30 tablet 11 Current Facility-Administered Medications on File Prior to Visit Medication Dose Route Frequency Provider Last Rate Last Admin ??? sodium chloride 0.9% flush 0.5-20 mL 0.5-20 mL intra-catheter Q8H [facility] Patrick Taylor MD ??? sodium chloride 0.9% [...] and oriented to person, place, and time. Results US Retroperitoneal Complete 03/16/22 Status: Preliminary result Study Result Narrative & Impression EXAMINATION: COMPLETE RENAL SONOGRAM ?? HISTORY: 81-year-old male with a history of recurrent nephrolithiasis requiring multiple stone retrieval procedures. Most recent lithotripsy on the left kidney on 01/17/2019. ?? COMPARISON: Ultrasound 03/03/2021, CT 01/04/2019. ?? FINDINGS: ?? Kidneys: The echogenicity of [...] renal stone in the left lower pole. ?? Bladder: The urinary bladder is normal. Prostatomegaly is noted. ?? IMPRESSION: ?? 1. 5 mm nonobstructing right renal stone and 4 mm nonobstructing left renal stone. No evidence of hydronephrosis. ?? 2. Stable enlargement of both kidneys. ? Results for orders placed or performed during the hospital encounter of 07/13/21 Basic metabolic panel Result Value Ref Range Sodium 140 135 - 145 mmol/L Potassium, pl 4.1 3.3 - 4.9 mmol/L Chloride 106 97 - 110 mmol/L CO2 22 22 - 32 mmol/L Anion gap 12 2 - 15 mmol/L BUN 17 8 - 25 mg/dL Creatinine 1.13 0.80 - 1.30 mg/dL Glucose 120 70 - 199 mg/dL Calcium 8.6 8.5 - 10.3 mg/dL CBC without differential Result Value Ref Range WBC 7.8 3.8 - 9.9 K/cumm Hgb 11.1 (L) 13.0 - 17.5 g/dL Hct 37.3 (L) 38.9 - 50.3 % Plt 184 150 - 400 K/cumm MPV 11.3 9.1 - 12.3 fL RBC 4.32 4.30 - 5.80 M/cumm MCV 86.3 81.3 - 96.4 fL MCH 25.7 (L) 27.1 - 33.3 pg MCHC 29.8 (L) 32.3 - 35.7 g/dL RDW CV 20.5 (H) 11.1 - 14.9 % RDW SD 61.6 (H) 35.7 - 48.1 fL NRBC abs 0.00 0.00 - 0.01 K/cumm eGFR Result Value Ref Range eGFR 61 mL/min/1.73 m2 POC Activated Clotting Time, High Range Result Value Ref Range ACT 194 (H) 87 - 138 sec POC Activated Clotting Time, High Range Result Value Ref Range ACT 255 (H) 87 - 138 sec POC Activated Clotting Time, High Range Result Value Ref Range ACT 313 (H) 87 - 138 sec Assessment/Plan Diagnoses and all orders for this visit: Nephrolithiasis (N20.0) (Primary) RBUS today showed RLP stone is stable but NEW LLP stone. FURTHER DIAGNOSTICS: 24-hour urine stone risk profile after definitive [...] nausea, vomiting or hematuria. Follow up in 6 months with Bertrand Hernandez at [facility] with [facility] prior. Cosigned by Concetta Thurston MD at 03/16/2022 5:18 PM CDT documented in this encounter Plan of Treatment Not on file documented as of this encounter Visit Diagnoses Diagnosis Nephrolithiasis- Primary Calculus of kidney documented in this encounter Care Teams Bitumastic Applier Relationship Specialty Start Date End Date Say Low MD [address] [facility] [address] [address] [facility] [address] [place] [address] PCP - General 02/15/17 documented as of this encounter
--- OUTSIDE RECORDS SUMMARY | 2024-09-22 19:05 | XMS_ITS | Encounter Summary ---
Author Organization [facility] Address [address] [place] [address] Care Team Providers Care Forestry Scientist Name Role Phone Say Low MD Primary Care Provider [phone] Reason for Visit * Cardiology (Routine) - Closed Specialty Diagnoses / Procedures Referred By Yary silveira Referred To Contact Diagnoses [place] II Procedures DEVICE CHECK - REMOTE Wayne Davis MD Phone: tel: fax: [facility] Referral ID Status Reason Start Date Expiration Date Visits Re quested Visits Authorized [id number] Closed 03/18/2021 04/17/2022 1 1 Encounter Details Date Type Department Care Team (Late st Contact Info) Description 09/28/2021 3:00 PM TRAY CASTING MACHINE OPERATOR Ancillary Procedure Ar[facility] [address] [place] [address] Mobitz II; Pacemaker Social History Tobacco Use [...] on file Legal 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 Gender Identity Male 07/10/2021 8:31 AM CDT Sexual Orientation Straight 06/12/2021 8: 44 AM CDT documented as of this encounter Plan of Treatment Not on file documented as of this encounter Procedures Procedure Name Priority Date/Time Associated Diagnosis Comments DEVICE CHECK - REMOTE Routine 09/28/2021 4:14 PM TRAY CASTING MACHINE OPERATOR Mobitz II documented in this encounter Results * DEVICE CHECK - REMOTE (09/28/2021 4:14 PM TRAY CASTING MACHINE OPERATOR) Anatomical Region Laterality Modality Other Narrative 10/09/2021 7:49 AM TRAY CASTING MACHINE OPERATOR This patient received a [employer] Pacemaker. ??They had a routine [employer] remote transmission on 09/28/2021. Device implant [...] to SOFI Episodes last 90 days/Comments: AF [place] 0 % There were no new ventricular events noted on today's remote interrogation. NORMAL DEVICE FUNCTION PROGRAMMED Anti-coagulant(s): ??Xarelto 20 mg, Plavix 75 mg Anti-arrhythmic(s): ??Coreg 25 mg Plan: 1) normal [employer] Pacemaker evaluation 2) [employer] remote transmission scheduled in 3 months. Bhavani White R.N. us Wayne Davis MD [facility] PRO CEDURES Final Result documented in this encounter Visit Diagnoses Diagnosis Mobitz II Mobitz (type) II atrioventricular block Pacemaker Cardiac pacemaker in situ documented in this encounter Care Teams Forestry Scientist Relationship Specialty Start Date End Date Say Low MD [address] [place] [address] [place] [address] PCP - General 02/15/17 documented as of this encounter
--- OUTSIDE RECORDS SUMMARY | 2024-09-22 19:05 | XMS_ITS | Encounter Summary ---
Author Organization [facility] Medical Group Address [address] [place] [address] Care Team Providers Care Pyrometer Operator Name Role Phone Say Low MD Primary Care Provider [phone] Reason for Visit * Reason Onset Date Comments sched PCI Arthrectomy 06/18/2021 Encounter Details Date Type Department Care Team (Late st Contact Info) Description 06/18/2021 Telephone [facility] Medical [facility] Cardiology [address] [place] [address] Troy Shipley MD [address] [facility] [address] [place] [address] sched PCI Arthrectomy Social History Tobacco Use Types Packs/Day Years Used Date Smoking Tobacco: Former Cigarettes 3 22.6 1 961 - 04/29/1983 Smokeless Tobacco: Never Alcohol Use Standard Drinks/Week Comments No 0 (1 standard drink = 0.6 oz pur e alcohol) Sex and Gender Information Value Date Recorded Sex Assigned at Not on file 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 Gender Identity Male 07/10/2021 8:31 AM CDT Sexual Orientation Straight 06/12/2021 8: 44 AM CDT documented as of this encounter Miscellaneous Notes * Addendum Note - Vivienne Haley - 06/23/2021 11:02 AM CDTAddended by: VIVIENNE HALEY on: 06/23/2021 11:02 AM Modules accepted: Orders * Telephone Encounter - Vivienne Haley - 06/23/2021 10:46 AM CDT Spoke w/pt, sched on 07/13/21 at 12noon, pt to arrive 11am Reviewed instructions, verbalized understanding, incl holding Xarelto 3 days prior, last dose 07/09 Pt will have labs drawn [facility] hosp 07/03 orders faxed to [phone] NPR Mc/Bs * Telephone Encounter - Vivienne Haley - 06/18/2021 1:40 PM CDT ----- Message from Troy Shipley MD sent at 06/18/2021 1:23 PM CDT ----- Patient had catheterization today and we found lesion that we need to bring him back for atherectomy and PCI of the LAD a couple weeks. Would be possible to set him up in room E for case with me on TuesdayJuly 06, or alternatively Jul 13? 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) documented in this encounter Results * (ABNORMAL) Protime-INR (07/08/2021) SCRIBED PT 22.1(A) 11.1 - 14.7 sec EXTERNAL LAB SCRIBED INR 2.0 2.0 - 3.0 sec EXTERNAL LAB Blood specimen (specimen) 07/08/2021 us Troy Shipley MD LAB BLOOD ORDERABLES Fin al Result EXTERNAL LAB * (ABNORMAL) CBC with auto differential (07/08/2021) SCRIBED WBC 12.1(A) 4.5 - 10.0 k/cumm EXTERNAL LAB SCRIBED RBC 4.38(A) 4.6 - 6.20 m/cumm EXTERNAL LAB SCRIBED Hemoglobin 11.5(A) 14.0 - 18.0 g/dL EXTERNAL LAB SCRIBED Hematocrit 36.9(A) 42.0 - 52.0 % EXTERNAL LAB SCRIBED MCH 26.3 26 - 34 pg EXTERNAL LAB SCRIBED MCHC 31.2(A) 32 - 36 g/dL EXTERNAL LAB SCRIBED RDW na na - na g/dl EXTERNAL LAB SCRIBED RDW SD na na - na fL EXTERNAL LAB SCRIBED RDW CV 19.7(A) 11.5 - 14.5 % EXTERNAL LAB SCRIBED Platelets 255 150 - 375 k/cumm EXTERNAL LAB SCRIBED MPV 10.1 7.4 - 10.4 fL EXTERNAL LAB SCRIBED NRBC 0.0 0.0 - 0.2 /100 WBC EXTERNAL LAB SCRIBED Lymphocytes 14.8(A) 18.3 - 44.2 % EXTERNAL LAB SCRIBED Atypical Lymphocytes na na - na % EXTERNAL LAB SCRIBED Monocytes 8.2 2.6 - 8.5 % EXTERNAL LAB SCRIBED Neutrophils 75.1(A) 45.5 - 73.1 % EXTERNAL LAB SCRIBED Imm Granulocytes 0.9(A) 0 - 0.5 % EXTERNAL LAB SCRIBED Eosinophils 0.9 0 - 4.4 % EXTERNAL LAB SCRIBED Basophils 0.1(A) 0.2 - 1.2 % EXTERNAL LAB SCRIBED NRBC Abs 0.0 0.0 - 0.012 K/cumm EXTERNAL LAB SCRIBED Lymphocytes Abs 1.79 0.9 - 3.2 k/cumm EXTERNAL LAB SCRIBED Monocytes Abs 1.0(A) 0.1 - 0.6 k/cumm EXTERNAL LAB SCRIBED Neutrophils Abs 9.1(A) 1.3 - 6.7 k/cumm EXTERNAL LAB SCRIBED Imm Granulocytes Abs 0.11(A) 0.00 - 0.031 k/mm3 EXTERNAL LAB SCRIBED Eosinophils Abs 0.1 0 - 0.3 k/cumm EXTERNAL LAB SCRIBED Basophils Abs 0.0 0.0 - 0.1 k/cumm EXTERNAL LAB SCRIBED Bands na na - na % EXTERNAL LAB SCRIBED Segs na na - na % EXTERNAL LAB SCRIBED Total Cells Diffed na na - na EXTERNAL LAB SCRIBED MCV 84.2 80 - 100 fl EXTERNAL LAB Blood specimen (specimen) 07/08/2021 us Troy Shipley MD LAB BLOOD ORDERABLES Fin al Result EXTERNAL LAB * (ABNORMAL) Basic metabolic panel (07/08/2021) SCRIBED Sodium 138 137 - 145 mmol/L EXTERNAL LAB SCRIBED Potassium 3.2(A) 3.4 - 5.0 mmol/L EXTERNAL LAB SCRIBED Chloride 106 98 - 107 mmol/L EXTERNAL LAB SCRIBED Carbon Dioxide 25 22 - 30 mmol/L EXTERNAL LAB SCRIBED Anion Gap 7(A) 8 - 16 mmol/L EXTERNAL LAB SCRIBED Urea Nitrogen (BUN) 35(A) 9 - 20 mg/dl EXTERNAL LAB SCRIBED Creatinine 1.10 0.7 - 1.3 mg/dl EXTERNAL LAB SCRIBED Glucose 135(A) 65 - 110 mg/dl EXTERNAL LAB SCRIBED Calcium 8.3(A) 8.4 - 10.2 mg/dl EXTERNAL LAB SCRIBED eGFR in na na - na EXTERNAL LAB SCRIBED eGFR in NonAfrican Spanish >60 >60 - na EXTERNAL LAB Blood specimen (specimen) 07/08/2021 us Troy Shipley MD LAB BLOOD ORDERABLES Fin al Result EXTERNAL LAB documented in this encounter Visit Diagnoses Diagnosis 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
--- OUTSIDE RECORDS SUMMARY | 2024-09-22 19:05 | XMS_ITS | Encounter Summary ---
Author Organization [facility] Medical [facility] Address [address] [place] [address] Care Team Providers Care Pathology Laboratory Technologist Name Role Phone Say Low MD Primary Care Provider [phone] Reason for Visit * Reason Onset Date Comments medication question 03/30/2021 Encounter Details Date Type Department Care Team (Late st Contact Info) Description 03/30/2021 Telephone [facility] Medical [facility] Cardiology [address] [place] [address] Shiva Anne MD [address] [facility] [address] [place] [address] medication question Social History Tobacco Use Types Packs/Day Years Used Date Smoking Tobacco: Former Cigarettes 3 22.6 1 961 - 04/29/1983 Smokeless Tobacco: Never Alcohol Use Standard Drinks/Week Comments No 0 (1 standard drink = 0.6 oz pur e alcohol) Sex and Gender Information Value Date Recorded Sex Assigned at Not on file 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 Gender Identity Male 07/10/2021 8:31 AM CDT Sexual Orientation Straight 06/12/2021 8: 44 AM CDT documented as of this encounter Miscellaneous Notes * Telephone Encounter - Donna Hollis - 04/01/2021 10:01 AM CDT PT CALLED HE VERBALLY UNDERSTOOD * Telephone Encounter - Donna Hollis - 04/01/2021 9:53 AM CDT Call placed to pt no ans not able to LVM * Telephone Encounter - Donna Hollis - 03/30/2021 4:27 PM CDT Call placed to pt no ans not able to LVM * Telephone Encounter - Shiva Anne MD - 03/30/2021 4:21 PM CDT Would continue baby aspirin given his history of bypass surgery Would continue Xarelto given significantly increased AFib he can stop the fish oil, which is something he was taking [id number] Certainly if he has evidence of significant bleeding, we can read discussed the risk benefits of this medication regimen however, this combination of medications is routinely used for these indications. If he would like another clinic appointment to discuss I am happy to do so but we discussed at length the other day * Telephone Encounter - Donna Hollis - 03/30/2021 10:04 AM CDT Pt called stated he was advised to start taking Xrelto and he is concerned about continueing to take the Baby Asprin 81 mg daily and the Fish oil 6,400 mg daily. Please advise documented in this encounter Plan of Treatment Not on file documented as of this encounter Visit Diagnoses Not on filedocumented in this encounter Care Teams Pathology Laboratory Technologist Relationship Specialty Start Date End Date Say Low MD [address] [place] [address] [address] [place] [id number] PCP - General 02/15/17 documented as of this encounter
--- OUTSIDE RECORDS SUMMARY | 2024-09-22 19:05 | XMS_ITS | Encounter Summary ---
Author Organization [facility] Healthcare Address [address] [place] [address] Care Team Providers Care Banking Management Consulting Manager Name Role Phone Say Low MD Primary Care Provider [phone] Encounter Details Date Type Department Care Team (Latest Contact Info) Description 06/18/2021 8:59 AM CDT - 06/18/2021 7:33 PM CDT Hospital Encounter Heart Center [address] [place] [address] Troy Shipley MD [address] [facility] [address] [place] [address] Coronary artery disease involving coronary bypass graft of [place] heart with angina pectoris ([facility] ([facility]) Discharge Disposition: Discharge to home or self [...] on file 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 - These medications may make you [...] home diet [] Special diet Instructed by Code And Test Clerk ACTIVITY You have been given medications which [...] route every day 30 0 11/17/2015 4 ngvlfoju-wch-MK-ly copen-lutein (CENTRUM SILVER) 0.4-300-250 mg-mcg-mcg tablet 1 [...] day at bedtime 0 0 09/10/2015 2 Trelelloyd Ellipta 100-62.5-25 mcg inhaler daily 08/15/2020 2 [...] to have worsening LV function, referred for [facility] Past Medical History: Diagnosis Date [...] by mouth nightly ) 30 0 ??? 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) POCT ACTIVATED CLOTTING TIME, HIGH RANGE Routine 06/18/2021 11:37 AM CDT POCT ACTIVATED CLOTTING TIME, HIGH RANGE Routine 06/18/2021 11:28 AM CDT ECG 12-LEAD STAT 06/18/2021 9:34 AM CDT documented in this encounter Results * POCT Activated clotting time, low range (06/18/2021 4:25 PM CDT) ACT 148 123 - 168 sec [facility] Blood 06/18/2021 4:25 PM CDT 06/18/2021 4:25 PM CDT us Troy Shipley MD LAB POCT ORDERABLES - DE VICE Final Result [facility] [address] [place] [address] * (ABNORMAL) POCT Activated clotting time, low range (06/18/2021 3:56 PM CDT) ACT 199(H) 123 - 168 sec [facility] Blood 06/18/2021 3:56 PM CDT 06/18/2021 3:56 PM CDT Troy Shipley MD LAB POCT ORDERABLES - DE VICE Final Result Performing Organization Address [facility]/ZIP Co de Phone Number [facility] [address] [facility] [place] [address] * (ABNORMAL) POCT Activated clotting time, low range (06/18/2021 3:10 PM CDT) ACT 229(H) 123 - 168 sec [facility] Blood 06/18/2021 3:1 0 PM CDT 06/18/2021 3:10 PM CDT us Troy Shipley MD LAB POCT ORDERABLES - DE VICE Final Result Performing Organization Address [facility] Co de Phone Number [facility] [address] [place] [address] * (ABNORMAL) POCT Activated clotting time, low range (06/18/2021 2:15 PM CDT) ACT 214(H) 123 - 168 sec [facility] Blood 06/18/2021 2:15 PM CDT 06/18/2021 2:15 PM CDT us Troy Shipley MD LAB POCT ORDERABLES - DE VICE Final Result Performing Organization Address [facility] Co de Phone Number [facility] [address] [facility] [place] [address] * (ABNORMAL) POCT Activated clotting time, low range (06/18/2021 1:25 PM CDT) ACT 248(H) 123 - 168 sec [facility] Blood 06/18/2021 1:25 PM CDT 06/18/2021 1:25 PM CDT us Troy Shipley MD LAB POCT ORDERABLES - DE VICE Final Result Performing Organization Address City/[facility]/ZIP Co de Phone Number [facility] [address] [facility] Department [place] [address] * ECG 12 lead (06/18/2021 12:25 PM CDT) 06/18/2021 12:2 5 PM CDT Narrative [facility] - 06/18/2021 9:34 PM CDT Vent Rate: 69 bpm RR Interval: 865 msec VT Interval: 0 msec QRS Duration: 178 msec QT Interval: 452 msec QTC Interval: 471 msec P-R-T [place]: 0 - 96 - 262 degrees ELECTRONIC VENTRICULAR PACEMAKER ABNORMAL RHYTHM ECG Electronically Signed By: Quentin Manzo DO [facility] us Troy Shipley MD ECG ORDERABLES Final Re sult Performing Organization Address [facility] Co nc Phone Number [facility] theAudience [facility] * LEFT HEART CATHETERIZATION WITH CORONARY ANGIOGRAPHY GRAFT AND LEFT VENTRICULOGRAM, CORONARY FLOW VELOCITY (CFR) / INSTATANEOUS FLOW VELOCITY (IFR), 1ST VESSEL (06/18/2021 11:58 AM CDT) Anatomical Region Laterality Modality X-Ray Angiograph y Narrative 06/18/2021 1:17 PM CDT [facility] Cardiology ?? [id number] [place], [place], [address] ?? Left Heart Catheterization Procedure Report 81 year old male with CABG in 2003, AF, PPM, DM2, and recent diagnosis systolic HF referred for left heart catheterization. Access:6F Right Femoral Artery Catheter:AL2 (neither JL 4, JL 5 nor EBU 4 would engage left main), JR 4 and Pigtail Injection:Left Main Trunk, Right Coronary Artery, Left Ventricle and SVG Closure:manual compression Anticoagulation:[id number] Heparin Air Kerma:3914 mGy Fluoro time:19.4 min Contrast:196 ml Optiray Sedation:3 mg Versed, 100 mcg fentanyl Procedural details: After risks, benefits, and alternatives to the procedure were explained to the patient, they agreed to proceed. ??After signing informed consent the patient was brought to the cardiac catheterization laboratory. ??There were prepped and draped in sterile fashion. A 6 Tajik sheath was inserted in the Right Femoral [...] proximal OM2. Minimal disease noted in these [place] vessels. A portion of the high lateral [...] wall. Instantaneous flow reserve (IFR) A 6 Tajik AL 2 guide catheter was used to [...] CDT) ACT 263(H) 87 - 138 sec [facility] Blood 06/18/2021 11:3 7 AM CDT 06/18/2021 11:37 AM CDT us Troy Shipley MD LAB BLOOD ORDERABLES Fin al Result Performing Organization Address [facility] Co de Phone Number [facility] [address] Department of Laboratories [place], [place] [id number] * (ABNORMAL) POC Activated Clotting Time, High Range (06/18/2021 11:28 AM CDT) ACT 192(H) 87 - 138 sec [facility] Blood 06/18/2021 11:2 8 AM CDT 06/18/2021 11:28 AM CDT us Troy Shipley MD LAB BLOOD ORDERABLES Fin al Result Performing Organization Address [facility] Co de Phone Number [facility] [address] Department [place] [address] * ECG 12 lead (06/18/2021 9:34 AM CDT) 06/18/2021 9:34 AM CDT Narrative [facility] - 06/18/2021 9:38 PM CDT Vent Rate: 77 bpm RR Interval: 776 msec VT Interval: 0 msec QRS Duration: 192 msec QT Interval: 453 msec QTC Interval: 485 msec P-R-T [place]: 0 - 114 - -20 degrees ATRIAL FIBRILLATION WITH ??VENTRICULAR PREMATURE COMPLEXES RIGHT BUNDLE BRANCH BLOCK LEFT POSTERIOR FASCICULAR BLOCK ABNORMAL ECG Electronically Signed By: Quentin Manzo DO [facility] us Troy Shipley MD ECG ORDERABLES Final Re sult Performing Organization Address [facility] Co de Phone Number [facility] theAudience [facility] documented in this encounter Visit Diagnoses Diagnosis 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)- Primary 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) documented in this encounter Admitting Diagnoses Diagnosis 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..] Toxicity 1619 (Given - Provid er: Greta Rodgers RN) protamine injection 20 mg(Linked Group 1) [...] (CV) 1034 (Given - Provid er: Michaela Tsang, RADHA)1127 (Given - Provider: Michaela Tsang, RAHDA)1135 (Given - Provider: Michaela Tsang, RADHA) heparin 1,000 unit/mL injection (CANCELED) As [...] MD - Comment: Over 2hr per Dr. Tietjens) Linked Groups Order Group 1: protamine injection [...] Count Last Ordered Date First Ordered Date fentaNYL (SUBLIMAZE) preserv ative free injection 1 06/18/2021 heparin 1,000 unit/mL injection 1 heparin in 0.9% sodium chlor rianna 1,000 units/500 mL (2 unit/mL) infusion (premix) 1 06/18/2021 ioversoL (OPTIRAY 350) injection 1 06/18/20 lidocaine (XYLOCAINE) 20 mg/ mL (2 %) injection 1 06/18/2021 midazolam (VERSED) 1 mg/mL p reservative free injection 1 06/18/2021 nitroglycerin injection 100 mcg/mL in D5W 10 mL 1 06/18/2021 protamine injection 20 mg 1 06/18/2021 sodium chloride 0.9% infusion 2 06/18/2021 Discharge Count Last Ordered Date First Orde red Date DISCHARGE PATIENT 1 06/18/2021 documented in this encounter Care Teams Banking Management Consulting Manager Relationship Specialty Start Date End Date Say Low MD [address] [facility] [address] MED[address]INE [place], [place] [phone] PCP - General 02/15/17 documented as of this encounter
--- OUTSIDE RECORDS SUMMARY | 2024-09-22 19:06 | XMS_ITS | Encounter Summary ---
Author Organization [facility] Address [address] [place] [address] Phone Care Team Providers Care Nonfarm Animal Caretaker Name Role Phone Say Low MD Primary Care Provider [phone] Encounter Details Date Type Department Care Team (Late st Contact Info) Description 07/29/2020 Telephone [facility] Urology [address] [place] [address] Sonal Lee NP [address] [place], [place] [id number] Social History Tobacco Use Types Packs/Day Years Used Date Smoking Tobacco: Former Cigarettes 3 22.6 1 961 - 04/29/1983 Smokeless Tobacco: Never Alcohol Use Standard Drinks/Week Comments No 0 (1 standard drink = 0.6 oz pur e alcohol) Sex and Gender Information Value Date Recorded Sex Assigned at Not on file 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 Most recent labs (under media) 07/28/2020 Potassium now 4.5. Pt's PCP wants to redraw labs in 2-4 weeks. He will send us the results/call if anything is needed. No symptoms or new concerns. documented in this encounter Plan of Treatment Not on file documented as of this encounter Visit Diagnoses Not on filedocumented in this encounter Care Teams Nonfarm Animal Caretaker Relationship Specialty Start Date End Date Say Low MD [address] [facility] [address] [place] [phone] PCP - General 02/15/17 documented as of this encounter
--- OUTSIDE RECORDS SUMMARY | 2024-09-22 19:06 | XMS_ITS | Encounter Summary ---
Author Organization [facility] Medical Group Address [address] [place] [address] Care Team Providers Care Electrician Shop Name Role Phone Say Low MD Primary Care Provider [phone] Encounter Details Date Type Department Care Team (Late st Contact Info) Description 02/26/2021 Orders Only Ar[facility]ia Center [address] [place] [address] Wayne Davis MD [address] 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 Will send to [facility] Mckayla Aburto us Wayne Davis MD CV CARDIAC SERVICES PRO CEDURES Final Result documented in this encounter Visit Diagnoses Not on filedocumented in this encounter Care Teams Electrician Shop Relationship Specialty Start Date End Date Say Low MD [address] [facility] [address] [place] [address] PCP - General 02/15/17 documented as of this encounter
--- OUTSIDE RECORDS SUMMARY | 2024-09-22 19:06 | XMS_ITS | Encounter Summary ---
Author Organization [facility] Address [address] [place] [address] Care Team Providers Care Personal Assistant Name Role Phone Say Low MD Primary Care Provider [phone] Reason for Visit * (Routine) - Closed Specialty Diagnoses / Procedures Referred By Yary silveira Referred To Contact Diagnoses Randall WINN Procedures DEVICE CHECK - REMOTE Wayne Davis MD Phone: tel: fax: [facility] Referral ID Status Reason Start Date Expiration Date Visits Re quested Visits Authorized [id number] Closed 05/20/2020 06/19/2021 1 1 Encounter Details Date Type Department Care Team (Latest Contact Info) Description 12/08/2020 1:30 PM SWITCH REPAIRER Ancillary Procedure Arrhythmia Center [address] [place] [address] Mobitz II; Cardiac pacemaker in situ Social History Tobacco Use Types Packs/Day Years Used Date Smoking Tobacco: Former Cigarettes 3 22.6 1 961 - 04/29/1983 Smokeless Tobacco: Never Alcohol Use Standard Drinks/Week Comments No 0 (1 standard drink = 0.6 oz pur e alcohol) Sex and Gender Information Value Date Recorded Sex Assigned at Not on file Legal Sex Male 8:04 PM SWITCH REPAIRER Gender Identity Male 07/10/2021 8:31 AM CDT Sexual Orientation Straight 06/12/2021 8: 44 AM CDT documented as of this encounter Plan of Treatment Not on file documented as of this encounter Procedures Procedure Name Priority Date/Time Associated Diagnosis Comments DEVICE CHECK - REMOTE Routine 12/08/2020 11:03 AM SWITCH REPAIRER Mobitz II documented in this encounter Results * DEVICE CHECK - REMOTE (12/08/2020 11:03 AM SWITCH REPAIRER) Anatomical Region Laterality Modality Other Narrative 12/12/2020 3:33 PM SWITCH REPAIRER This patient received a [employer] Pacemaker. ??They had a routine [employer] remote transmission on 12/08/2020. Device implant indications: ??Mobitz type 2 ?? Interrogation of the patient's device demonstrates the following: Presenting EGM: ??A pace V pace @ 60 bpm Lead Measurements Right Atrium Right Ventricle Sensitivity (mV) 5.7 mV paced mV Impedence (Ohms) 487 ohms 467 ohms Pace Threshold Not done V @ ??ms 0.7 V @ 0.40 ms Pacing % 12 % 99 % Battery Status: ??5 years to SOFI Episodes last 90 days/Comments: AF Uehling <0.1 %, longest duration 3 seconds. No new ventricular events noted. NORMAL DEVICE FUNCTION PROGRAMMED Anti-coagulant(s): ASA 81mg Anti-arrhythmic(s): Coreg 12.5 mg Plan: 1) Normal [employer] Pacemaker evaluation 2) [employer] remote transmission scheduled in 3 months. Bhavani White R.N. 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
--- OUTSIDE RECORDS SUMMARY | 2024-09-22 19:06 | XMS_ITS | Encounter Summary ---
Author Organization [facility] Address [address] [place] [address] Phone Care Team Providers Care Research Neuropsychologist Name Role Phone Say Low MD Primary Care Provider [phone] Reason for Visit * Reason Comments urethral stricture * Urology (Routine) - Closed Specialty Diagnoses / Procedures Referred By Yary silveira Referred To Contact Urology Diagnoses Urethral Stricture Procedures NEW TO PROVIDER Say Low MD Phone: tel: fax: Slick Yeager MD [address] [facility] [address] [place] [address] Phone: tel: fax: Referral ID Status Reason Start Date Expiration Date Visits Re quested Visits Authorized [id number] Closed 03/21/2019 09/29/2020 99 99 Encounter Details Date Type Department Care Team (Late st Contact Info) Description 03/28/2019 9:10 AM CDT Office Visit [facility] ([facility]) - [facility] Urology [address] [facility] [address]th [place] [address] [place] [address] Slick Yeager MD [address] [facility] [address] [place] [address] Other anterior urethral stricture, male, anterior (Primary Dx) Social History Tobacco Use Types Packs/Day Years Used Date Smoking Tobacco: Former Cigarettes 3 22.6 1 961 - 04/29/1983 Smokeless Tobacco: Never Alcohol Use Standard Drinks/Week Comments No 0 (1 standard drink = 0.6 oz pur e alcohol) Sex and Gender Information Value Date Recorded Sex Assigned at Not on file Legal Sex Male 8:04 PM SHEAR TENDER Gender Identity Male 07/10/2021 8:31 AM CDT Sexual Orientation Straight 06/12/2021 8: 44 AM CDT documented as of this encounter Progress Notes * Slick Yeager MD - 03/28/2019 9:10 AM CDT Chief complaint: urethral stricture History of present illness: Drew Pak is a 78 y.o. male with recent ureteroscopy for kidney stones by Dr. Thurston. She noted a soft bulbar urethral stricture. Stent was able to be removed via clinc cystoscopy 01/31/19. He has a good flow without problem - doesn't feel it has slowed. Past Medical History: has a past medical history of CHF (congestive heart failure) ([facility]), Chronic kidney disease, COPD (chronic obstructive pulmonary disease) (CMS/HCC), Diabetes mellitus (CMS/HCC), OTHER MEDICAL, Hyperlipidemia, Hypertension, Kidney stone, and Urolithiasis. He also has no pastmedical history of Asthma, Awareness under anesthesia, Cancer (CMS/HCC), Clotting disorder (CMS/HCC), Delayed emergence from general anesthesia, Hard to intubate, Malignant hyperthermia, Motion sickness, PONV (postoperative nausea and vomiting), Postoperative delirium, Pseudocholinesterase deficiency, Shortness of breath, Sleep apnea, Stroke (CMS/HCC), Syncope, or Thyroid disease. Past Surgical History: Past Surgical History: Procedure Laterality Date ??? CARDIAC CATHETERIZATION ??? CARDIAC PACEMAKER PLACEMENT Pacemaker Placement - (Added by TW Conv) ??? CORONARY ARTERY BYPASS GRAFT 2003 saphenous vein to the 1st obtuse marginal, 2nd obtuse marginal, and posterior descending branch of the right coronary artery ??? LITHOTRIPSY ??? TIBIA FRACTURE SURGERY 2010 r/t trauma ??? UPPER GASTROINTESTINAL ENDOSCOPY Medication: Current Outpatient Medications on File Prior to Visit Medication Sig Dispense Refill ??? allopurinol (ZYLOPRIM) 100 mg tablet take 1.5 tablet by oral route every day (Patient taking differently: Take 150 mg by mouth every morning ) 0 0 ??? amLODIPine (NORVASC) 5 mg tablet take 1 tablet by oral route every day (Patient taking differently: Take 5 mg by mouth every morning ) 0 0 ??? aspirin 81 mg tablet take 1 tablet by oral route every day (Patient taking differently: Take 81mg by mouth every morning ) 0 0 ??? carvedilol (COREG) 12.5 mg tablet TAKE 1 TABLET(12.5 MG) BY MOUTH TWICE DAILY WITH MEALS 180 tablet 0 ??? cholecalciferol (VITAMIN D-3) 2,000 unit tablet Take 2,000 Units by mouth 2 (two) times a day. ??? diclofenac DR (VOLTAREN) 75 mg EC tablet take 1 tablet by oral route every day (Patient taking differently: Take 75 mg by mouth every morning ) 0 0 ??? furosemide (LASIX) 20 mg tablet take 1 tablet by oral route every day (Patient taking differently: Take 20 mg by mouth every morning ) 30 0 ??? HYDROcodone-acetaminophen (NORCO) 5-325 mg per tablet Take 1 tablet by mouth every 6 (six) hours as needed for pain 5 tablet 0 ??? losartan (COZAAR) 100 mg tablet take 1 tablet by oral route every day (Patient taking differently: Take 100 mg by mouth nightly ) 30 0 ??? ceoyypqb-ezp-UB-lycopen-lutein (CENTRUM SILVER) 0.4-300-250 mg-mcg-mcg tablet 1 tab daily (Patient taking differently: Take 1 tablet by mouth every morning ) 0 0 ??? omega-3 fatty acids-fish oil (FISH OIL) 300-1,000 mg capsule 1 capsule daily (Patient taking differently: 2 (two) times a day ) 0 0 ??? omeprazole (PriLOSEC) 20 mg capsule take 1 capsule by oral route every day before a meal (Patient taking differently: Take 20 mg by mouth every morning ) 0 0 ??? potassium citrate ER (UROCIT-K) 10 mEq (1,080 mg) CR tablet Take 2 tablets (20 mEq total) by mouth 2 (two) times a day. 120 tablet 11 ??? sertraline (ZOLOFT) 50 mg tablet Take 50 mg by mouth every morning 4 ??? simvastatin (ZOCOR) 20 mg tablet [...] mouth every morning ) 0 0 ??? tiotropium (SPIRIVA WITH HANDIHALER) 18 mcg per inhalation capsule inhale 1 capsule by inhalation route every day (Patient taking differently: Place 18 mcg into inhaler and inhale every morning )0 0 No current facility-administered medications on file prior to visit. Allergies: Allergies Allergen Reactions ??? Contrast Dye [Iodinated Contrast- Oral And Iv Dye] Other (See comments) Decreased HR Social History: Social History Socioeconomic History ??? Marital status: Spouse name: Not on file ??? Number of children: Not on file ??? Years of education: Not on file ??? Highest education level: Not on file Occupational History ??? Not on file Social Needs ??? Financial resource strain: Not on file ??? Food insecurity: Worry: Not on file Inability: Not on file ??? Transportation needs: Medical: Not on file Non-medical: Not on file Tobacco Use ??? Smoking status: Former Smoker Packs/day: 3.00 Start date: 1958 Last attempt to quit: 04/29/1983 Years since quittin.9 ??? Smokeless tobacco: Never Used Substance and Sexual Activity ??? Alcohol use: No ??? Drug use: No ??? Sexual activity: Not on file Lifestyle ??? Physical activity: Days per week: Not on file Minutes per session: Not on file ??? Stress: Not on file Relationships ??? Social connections: Talks on phone: Not on file Gets together: Not on file Attends taoism service: Not on file Active member of club or organization: Not on file Attends meetings of clubs or organizations: Not on file Relationship status: Not on file ??? Intimate partner violence: Fear of current or ex partner: Not on file Emotionally abused: Not on file Physically abused: Not on file Forced sexual activity: Not on file Other Topics Concern ??? Not on file Social History Narrative ??? Not on file Family History: Family History Problem Relation Age of Onset ??? Alzheimer's disease Mother Alzheimer's disease; ??? Stroke Mother ??? Heart attack Other Family history of Myocardial infarction; Cause of : Family history of Myocardial infarction ??? Heart attack Father Review of systems was performed and reviewed today. It is notable for: Constitutional: Negative for fever, chills, weight loss and malaise/fatigue. HENT: Negative for hearing loss, neck pain and tinnitus. Eyes: Negative for blurred vision, double vision and photophobia. Respiratory: Negative for cough, sputum production and wheezing. Cardiovascular: Negative for chest pain and palpitations. Gastrointestinal: Negative for heartburn, nausea, vomiting, abdominal pain, diarrhea and constipation. Genitourinary: see HPI Musculoskeletal: Negative for back pain and joint pain. Skin: Negative for itching and rash. Neurological: Negative for dizziness, tingling, focal weakness and headaches. Endo/Heme/Allergies: Does not bruise/bleed easily. Psychiatric/Behavioral: Negative for depression. The patient is not nervous/anxious. Physical Exam: There were no vitals filed for this visit. Constitutional: no acute distress Skin/Integumentary: no bruising or rashes on face or hands, scalp atraumatic Eyes: Extraocular muscles intact, mucous membranes moist, sclera white, conjunctiva pink Ears, Nose, Mouth/Throat: neck normal range of motion and trachea midline, no bleeding gums or nose Respiratory: No coarse breath sounds or wheezing, breathing symmetric Gastrointestinal: soft, non-tender, non-distended, no masses Genitourinary: No cva tenderness Psychiatric: Mood and affect appropriate, alert and oriented to person, place and time, good historian Neurologic: Normal gait, speech clear, tongue midline, normal hand strength Objective: Labs Reviewed Lab Results Component Value Date CREATININE 1.37 (H) 01/08/2019 Lab Results Component Value Date PSA 1.1 05/31/2018 The following images were personally reviewed by me. FL Fluoroscopy < 1 Hour The images from this study are not interpreted by Radiology. Please refer to the physician's procedure / OR operative note. Orders: No orders of the defined types were placed in this encounter. Assessment and plan: Drew Pak is a 78 y.o. male with urethral stricture s/p dilation. Doing well with a good flow. Stricture open on recent cysto. Plan to follow up in 6 months for uroflow/pvr. documented in this encounter Plan of Treatment Not on file documented as of this encounter Visit Diagnoses Diagnosis Other anterior urethral stricture, male, anterior- Primary documented in this encounter Care Teams Research Neuropsychologist Relationship Specialty Start Date End Date Say Low MD [address] [place], [place] [id number] PCP - General 02/15/17 documented as of this encounter
--- OUTSIDE RECORDS SUMMARY | 2024-09-22 19:06 | XMS_ITS | Encounter Summary ---
Author Organization [facility] Address [address] [place] [address] Care Team Providers Care Metal Burrer Name Role Phone Say Low MD Primary Care Provider [phone] Encounter Details Date Type Department Care Team (Late st Contact Info) Description 12/11/2019 Orders Only Arrhythmia Center [address] [place] [id number] Wayne Davis MD [address] 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 Gender Identity Male 07/10/2021 8:31 AM CDT Sexual Orientation Straight 06/12/2021 8: 44 AM CDT documented as of this encounter Plan of Treatment Not on file documented as of this encounter Procedures Procedure Name Priority Date/Time Associated Diagnosis Comments DEVICE CHECK - REMOTE Routine 12/11/2019 7:13 PM CDT documented in this encounter Results * DEVICE CHECK - REMOTE (12/11/2019 7:13 PM CDT) Anatomical Region Laterality Modality Other 12/11/2019 7:13 PM CDT Narrative 12/14/2019 5:16 PM CDT Per protocol: No actionable events on unscheduled transmission NON-ACTIONABLE no service required us Wayne Davis MD CV CARDIAC SERVICES PRO CEDURES Final Result documented in this encounter Visit Diagnoses Not on filedocumented in this encounter Care Teams Metal Burrer Relationship Specialty Start Date End Date Say Low MD [address] [place] [id number] PCP - General 02/15/17 documented as of this encounter
--- OUTSIDE RECORDS SUMMARY | 2024-09-22 19:06 | XMS_ITS | Encounter Summary ---
Author Organization [facility] Address [address] [place] [address] Phone Care Team Providers Care Dish Up Person Name Role Phone Say Low MD Primary Care Provider [phone] Reason for Referral * Diagnostic Imaging (Routine) - Closed Specialty Diagnoses / Procedures Referred By Contac t Referred To Contact Diagnoses Nephrolithiasis Procedures US Retroperitoneal Complete Elvin Carrillo NP Phone: tel: fax: [address] [address] Referral ID Status Reason Start Date Expiration Date Visits Re quested Visits Authorized [id number] Closed 03/04/2020 09/13/2021 1 1 * Diagnostic Imaging (Routine) - Closed Specialty Diagnoses / Procedures Referred By Contac t Referred To Contact Diagnoses Nephrolithiasis Procedures XR Abdomen Ap 1 Vw Elvin Carrillo NP Phone: tel: fax: [address] [address] Referral ID Status Reason Start Date Expiration Date Visits Re quested Visits Authorized [id number] Closed 03/04/2020 09/13/2021 1 1 Reason for Visit * Reason Comments luts Nephrolithiasis * Consultation (Routine) - Closed Specialty Diagnoses / Procedures Referred By Yary silveira Referred To Contact Urology Diagnoses Urological disorder Referral, Self [facility] (All Locations) Referral ID Status Reason Start Date Expiration Date V isits Requested Visits Authorized [id number] Closed Specialty Services Required 07/03/2019 01/11/2021 99 [phone] Encounter Details Date Type Department Care Team (Latest Contact Info) Description 03/04/2020 10:00 AM CDT Office Visit Advanced Medicine ([facility]) - [facility] Urology [address] 11th [place] [address] [place] [address] Elvin Carrillo NP [address] [place] [address] Nephrolithiasis (Primary Dx); Lower urinary tract symptoms (LUTS) Social History Tobacco Use Types Packs/Day Years Used Date Smoking Tobacco: Former Cigarettes 3 22.6 1 961 - 04/29/1983 Smokeless Tobacco: Never Alcohol Use Standard Drinks/Week Comments No 0 (1 standard drink = 0.6 oz pur e alcohol) Sex and Gender Information Value Date Recorded Sex Assigned at Not on file Legal 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 male. Chief Complaint luts and Nephrolithiasis HPI Drew Pak??79 y.o.??male with hx of??BPH, elevated PSA, nephrolithiasis,??and urethral stricture here for follow up. ?? 1) Urolithiasis He is s/p Left URS on 01/17/19, stone analysis revealed 100% COM. He also??had prior left??ESWL??in 11/2017??for 8mm LP stone, Right PCNL in 06/2009,??and??Right ESWL in 06/2005??.? His initial??24 hour ua showed??2.58L, calcium 215, sodium 188, oxalate 49, citrate 461, pH 5.7.??He was started on Urocit K but??he discontinued it??and began taking OTC potassium. Repeat??24 hour ua 05/2018 showed 2.41L, calcium 154, sodium 132, oxalate 46, citrate 261, pH 5.2, elevated supersaturation of uric acid.??He is taking Allopurinol. ?? The patient is currently asymptomatic and denies flank pain, fever, chills, nausea, vomiting or hematuria.??He denies passing any stones in the last year. ?? 2) BPH/LUTS He was found to have a soft bulbar urethral stricture during 01/17/19 URS. He denies any issues withurination and reports his urine stream is strong. He takes Tamsulosin 0.4mg for his BPH/LUTS. His Furosemide was increased to 40mg and he is currently experiencing some urgency and frequency. ?? He also has hx??of elevated PSA with two prostate biopsies, 12/2010 bx was benign and 08/2010 bx showed focal glandular atypia. Last PSA was 1.1 on 05/31/18. ?? He recently had lumbar laminectomy 4 months ago and dealing with low back pain. ?? Review of Systems Constitutional: Negative for [...] carvediloL (COREG) 12.5 mg tablet TAKE 1 TABLET(12.5 [...] 0 ??? furosemide (LASIX) 40 mg tablet TK 1 T PO QD . STOP THE 20MG TS ??? losartan (COZAAR) 100 mg tablet take 1 tablet by oral route every day (Patient taking differently: Take 100 mg by mouth nightly ) 30 0 ??? meytsuba-gxx-ZW-lycopen-lutein (CENTRUM SILVER) 0.4-300-250 mg-mcg-mcg tablet 1 tab daily (Patient taking differently: Take 1 tablet by mouth every morning ) 0 0 ??? omega-3 fatty acids-fish oil (FISH OIL) 300-1,000 mg capsule 1 capsule daily (Patient taking differently: 2 (two) times a day ) 0 0 ??? omeprazole (PriLOSEC) 40 mg capsule Take 40 mg by mouth daily ??? simvastatin (ZOCOR) 20 mg tablet take [...] every morning ) 0 0 ??? [DISCONTINUED] furosemide (LASIX) 20 mg tablet take 1 tablet by oral route every day (Patient taking differently: Take 20 mg by mouth every morning ) 30 0 Current Facility-Administered Medications on File Prior to Visit Medication Dose Route Frequency Provider Last Rate Last Dose ??? sodium chloride 0.9% flush 0.5-20 mL 0.5-20 mL intra-catheter Q8H INGRID Patrick Taylor MD ??? sodium chloride 0.9% flush 0.5-20 mL 0.5-20 mL intra-catheter PRN Patrick Taylor MD Allergies No Known Allergies Physical Exam Constitutional: General: He is not in acute distress. Appearance: He is well-developed. Eyes: General: No scleral icterus. Pupils: Pupils are equal, round, and reactive to light. Neck: Musculoskeletal: Normal range of motion. Cardiovascular: Rate and Rhythm: Normal rate. Pulmonary: Effort: Pulmonary effort is normal. No respiratory distress. Abdominal: General: There is no distension. Palpations: Abdomen is soft. There is no mass. Tenderness: There is no abdominal tenderness. There is no guarding or rebound. Hernia: No hernia is present. Musculoskeletal: Normal range of motion. Skin: General: Skin is warm and dry. Neurological: Mental Status: He is alert and oriented to person, place, and time. Results for orders placed or performed in visit on 03/04/20 POCT urinalysis dipstick Result Value Ref Range Glucose, ur, POC 500. (A) Negative mg/dL Ketones, ur, POC Negative Negative Blood, ur, POC Negative Negative pH, ur, POC 8.0 5.0 - 8.0 Protein, ur, POC Trace (A) Negative Nitrite, ur, POC Negative Negative Leukocytes, ur, POC Negative Negative Lot Number 0 Assessment/Plan Drew Pak??79 y.o.??male with hx of??BPH, elevated PSA, nephrolithiasis,??and urethral stricture here for follow up. ?? Diagnoses and all orders for this visit: Nephrolithiasis (N20.0) (Primary) - POCT urinalysis dipstick - Measure post void residual is low. - XR Abdomen Ap 1 Vw today Lower urinary tract symptoms (LUTS) (R39.9) - Ambulatory referral to Urology - POCT urinalysis dipstick - Measure post void residual is low - Continue Tamsulosin 0.4mg daily. Follow up in 1 year with US Retroperitoneal Complete; Future prior. documented in this encounter Plan of Treatment Scheduled Orders Name Type Priority Associated Diagnoses Orde r Schedule XR Abdomen Ap 1 Vw Imaging Schedule Rout ine, Read Routine (OP Routine) Nephrolithiasis Expected: 03/04/2020, Expires: 03/04/2021 documented as of this encounter Procedures Procedure Name Priority Date/Time Associated Diagnosis Comments POCT URINALYSIS DIPSTICK Routine 03/04/2020 10:33 AM CDT Nephrolithiasis Lower urinary tract symptoms (LUTS) MEASURE POST VOID RESIDUAL Routine 03/04/2020 Nephrolithiasis Lower urinary tract symptoms (LUTS) documented in this encounter Results * US Retroperitoneal Complete (03/03/2021 1:56 PM CDT) Anatomical Region Laterality Modality Abdomen N/A Ultrasound 03/03/2021 2:05 PM CDT Impressions 03/03/2021 2:24 PM CDT 1. ??Unchanged small right lower pole intrarenal stone without evidence of hydronephrosis. Dictated by: James Shannon M.D. The radiology attending physician has personally reviewed this study, and had reviewed and/or edited this written report and agrees with it. Electronically signed by: Wojciech Williamson M.D. Narrative 03/03/2021 2:24 PM CDT EXAMINATION: COMPLETE RENAL SONOGRAM HISTORY: ??72-year-old male with urolithiasis requiring left-sided lithotripsy in 01/2019. ?? Follow-up urolithiasis. COMPARISON: ??07/03/2019 FINDINGS: ?? Kidneys: The echogenicity of both kidneys is normal. The kidneys are large in size. ??The right kidney measures 13.6 cm in length, and the left, 14.2 cm in length. There is no hydronephrosis in either kidney. Previously visualized areas of twinkle artifact on 07/03/2019 examination are no longer seen. ??In the right lower pole, there is one shadowing kidney stone, unchanged in size, measuring 5 mm. ??No other stones are seen in the right and left kidneys. ??A cyst in the upper pole of the left kidney has increased in size, previously measuring 5.6 cm and now measuring 7.6 cm. Bladder: The urinary bladder is normal Procedure Note Wojciech Williamson MD - 03/03/2021 EXAMINATION: COMPLETE RENAL SONOGRAM HISTORY: 72-year-old male with urolithiasis requiring left-sided lithotripsy in 01/2019. Follow-up urolithiasis. COMPARISON: 07/03/2019 FINDINGS: Kidneys: The echogenicity of both kidneys [...] 5.6 cm and now measuring 7.6 cm. Bladder: The urinary bladder is normal IMPRESSION: 1. Unchanged small right lower pole intrarenal stone without evidence of hydronephrosis. Dictated by: James Shannon M.D. The radiology attending physician has personally reviewed this study, and had reviewed and/or edited this written report and agrees with it. Electronically signed by: Wojciech Williamson M.D. Elvin Carrillo [facility] US PROCEDURES Final Result * (ABNORMAL) POCT urinalysis dipstick (03/04/2020 10:33 AM CDT) Glucose, ur, POC 500.(A) Negative mg/dL Ketones, ur, POC Negative Negative Blood, ur, POC Negative Negative pH, ur, POC 8.0 5.0 - 8.0 Protein, ur, POC Trace(A) Negative Nitrite, ur, POC Negative Negative Leukocytes, ur, POC Negative Negative Lot Number 0 Urine 03/04/2020 10:3 3 AM CDT Elvin Carrillo NP POINT OF CARE TEST CHARISSE MCCRAY Final Result * Measure post void residual (03/04/2020) Narrative Esthela Fofana, RN - 03/04/2020 Measurement of post-voiding residual urine and/or bladder capacity by ultrasound, non-imaging. ??PVR = 0 ML Elvin Carrillo NP NURSING ASSESSMENTS Fin al Result documented in this encounter Visit Diagnoses Diagnosis Nephrolithiasis- Primary Calculus of kidney Lower urinary tract symptoms (LUTS) Nephrolithiasis Calculus of kidney documented in this encounter Discontinued Medications Medication Sig Discontinue Reason Start Date End Da te furosemide (LASIX) 20 mg tablet take 1 tablet by oral route every day Formulary change 09/10/2015 03/04/2020 documented as of this encounter Historical Medications * This list may reflect changes made after this encounter. furosemide (LASIX) 40 mg tablet Take 40 mg by mouth daily 12/13/2019 10/09/2021 added in this encounter Orders Outpatient Referral Count Last Ordered Date Fir st Ordered Date AMB REFERRAL TO UROLOGY 1 03/04/2020 documented in this encounter Care Teams Dish Up Person Relationship Specialty Start Date End Date Say Low MD [address] [facility] [address] [place] [address] PCP - General 02/15/17 documented as of this encounter
--- OUTSIDE RECORDS SUMMARY | 2024-09-22 19:06 | XMS_ITS | Encounter Summary ---
Author Organization [facility] Address [address] [address] Care Team Providers Care Thinner Sprayer Name Role Phone Say Low MD Primary Care Provider [phone] Reason for Referral * (Routine) - Closed Specialty Diagnoses / Procedures Referred By Contac t Referred To Contact Diagnoses Mobitz II Procedures DEVICE CHECK - REMOTE Wayne Davis MD Phone: tel: fax: [facility] Referral ID Status Reason Start Date Expiration Date Visits Re quested Visits Authorized [id number] Closed 04/25/2019 11/03/2020 1 1 * (Routine) - Closed Specialty Diagnoses / Procedures Referred By Contac t Referred To Contact Diagnoses Mobelkin II Procedures DEVICE CHECK - REMOTE Wayne Davis MD Phone: tel: fax: [facility] Referral ID Status Reason Start Date Expiration Date Visits Re quested Visits Authorized [id number] Closed 04/25/2019 11/03/2020 1 1 * (Routine) - Closed Specialty Diagnoses / Procedures Referred By Contac t Referred To Contact Diagnoses Mobitz II Procedures DEVICE CHECK - REMOTE Wayne Davis MD Phone: tel: fax: [facility] Referral ID Status Reason Start Date Expiration Date Visits Re quested Visits Authorized [id number] Closed 04/25/2019 11/03/2020 1 1 * (Routine) - Closed Specialty Diagnoses / Procedures Referred By Contac t Referred To Contact Diagnoses Randall II Procedures DEVICE CHECK - REMOTE Wayne Davis MD Phone: tel: fax: [facility] Referral ID Status Reason Start Date Expiration Date Visits Re quested Visits Authorized [id number] Closed 04/25/2019 11/03/2020 1 1 * (Routine) - Closed Specialty Diagnoses / Procedures Referred By Contac t Referred To Contact Diagnoses Randall WINN Procedures DEVICE CHECK - REMOTE Wayne Davis MD Phone: tel: fax: [facility] Referral ID Status Reason Start Date Expiration Date Visits Re quested Visits Authorized [id number] Closed 04/25/2019 11/03/2020 1 1 Encounter Details Date Type Department Care Team (Late st Contact Info) Description 04/25/2019 Orders Only Arrhythmia Center [address] [place] [address] Wayne Davis MD [address] [place] [address] Mobitz II (Primary Dx) Social History Tobacco Use Types Packs/Day Years Used Date Smoking Tobacco: Former Cigarettes 3 22.6 1 961 - 04/29/1983 Smokeless Tobacco: Never Alcohol Use Standard Drinks/Week Comments No 0 (1 standard drink = 0.6 oz pur e alcohol) Sex and Gender Information Value Date Recorded Sex Assigned at Not on file Legal 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 ??They had a routine [employer] remote transmission on 06/02/2020. Device implant indications: ??Mobitz type 2 ?? Interrogation of the patient's device demonstrates the following: Presenting EGM: ??A pace V pace @ 60 bpm Lead Measurements Right Atrium Right Ventricle Sensitivity (mV) 5.7 mV paced mV Impedence (Ohms) 484 ohms 473 ohms Pace Threshold Not done V @ ms 0.6 V @ 0.4 ms Pacing % 11 % 100 % Battery Status: ??5.5 years to SOFI Episodes last 90 days/Comments: AF [place] less than 0.1 %, longest duration there was 1 episode noted for approximately 3 seconds in duration. There were no new ventricular events noted on today's remote interrogation. NORMAL DEVICE FUNCTION PROGRAMMED Anti-coagulant(s): ??Aspirin 81 mg Anti-arrhythmic(s): ??Coreg 12.5 mg twice daily Plan: 1) normal [employer] Pacemaker evaluation 2) [employer] remote transmission scheduled in 3 months. Bhavani White R.N. us Wayne Davis MD [facility] PRO CEDURES Final Result * DEVICE CHECK - REMOTE (03/03/2020 3:19 PM CDT) Anatomical Region Laterality Modality Other Narrative 03/19/2020 5:09 PM CDT This patient received a [employer] Pacemaker. ??They had a routine [employer] remote transmission on 03/03/2020. Device implant indications: ??Mobitz type 2 ?? Interrogation of the patient's device demonstrates the following: Presenting EGM: ??A sense V pace @ 68 bpm Lead Measurements Right Atrium Right Ventricle Sensitivity (mV) 4.8 mV 9.1 mV Impedence (Ohms) 469 ohms 457 ohms Pace Threshold Not done V @ ms 0.6 V @ 0.4 ms Pacing % 10 % 100 % Battery Status: ??5.5 years to SOFI Episodes last 90 days/Comments: AF [place] 0%. There were no new ventricular events noted on today's remote interrogation. NORMAL DEVICE FUNCTION PROGRAMMED Anti-coagulant(s): ??Aspirin 81 mg Anti-arrhythmic(s): ??Coreg 12.5 mg twice daily Plan: 1) normal [employer] Pacemaker evaluation 2) [employer] remote transmission scheduled in 3 months. 3) Letter sent with transmission results Bhavani White R.N. Wayne Davis MD CV CARDIAC SERVICES PRO CEDURES Final Result * DEVICE CHECK - REMOTE (11/26/2019 12:16 PM EDGE BONDER) Anatomical Region Laterality Modality Other Narrative 11/26/2019 5:30 PM EDGE BONDER This patient received a [employer] Pacemaker. ??They had a routine [employer] remote transmission on 11/26/2019. Device implant indications: ??Mobitz type 2 ?? Interrogation of the patient's device demonstrates the following: Presenting EGM: ??A sense V pace @ 64 bpm Lead Measurements Right Atrium Right Ventricle Sensitivity (mV) ??5.8 mV paced mV Impedence (Ohms) 482 ohms 479 ohms Pace Threshold Not done V @ ms 0.6 V @ 0.4 ms Pacing % 11 % 100 % Battery Status: ??6 years to SOFI Episodes last 90 days/Comments: AF [place] 0 %. NORMAL DEVICE FUNCTION PROGRAMMED Anti-coagulant(s): ??Aspirin 81 mg Anti-arrhythmic(s): ??Coreg 12.5 mg twice daily Plan: 1) normal [employer] Pacemaker evaluation 2) [employer] remote transmission scheduled in 3 months. 3) Letter sent with transmission results Bhavani White R.N. us Wayne Davis MD CV CARDIAC SERVICES PRO CEDURES Final Result * DEVICE CHECK - REMOTE (08/20/2019 8:45 AM EDGE BONDER) Anatomical Region Laterality Modality Other Narrative 09/12/2019 4:24 PM EDGE BONDER This patient received a [employer] Pacemaker. ??They had a routine ?? remote transmission on 08/20/2019. 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 Interrogation of the patient's device demonstrates the following: Presenting EGM: ??A sensed V paced @ 70 bpm Lead Measurements Right Atrium Right Ventricle Sensitivity (mV) 6.3 mV 24.8 mV Impedence (Ohms) 460 ohms 500 ohms Pace Threshold Not done V @ ??ms Not done V @ ??ms Pacing % 11 % 100 % Battery Status: ??6.5 years to SOFI Episodes last 90 days/Comments: AF [place] less than 1 %, 2 minutes total time, longest duration all episodes were less than 1 minute in duration NORMAL DEVICE FUNCTION PROGRAMMED Anti-coagulant(s): ??Aspirin 81 mg daily Anti-arrhythmic(s): ??Coreg 12.5 mg twice daily, Norvasc 5 mg daily Plan: 1) normal [employer] Pacemaker evaluation 2) [employer] remote transmission scheduled in 3 months. 3) Letter sent with transmission results Manuel Sullivan R.N. Wayne Davis MD CV CARDIAC SERVICES PRO CEDURES Final Result * DEVICE CHECK - REMOTE (05/21/2019 10:44 AM CDT) Anatomical Region Laterality Modality Other Narrative 06/19/2019 4:42 PM CDT This patient received a [employer] Pacemaker. ??They had a routine [employer] remote transmission on 05/21/2019. ?? Interrogation of the patient? s device demonstrates the following: Presenting EGM: ??As Swat Team Member @ 70 bpm Lead Measurements Right Atrium Right Ventricle Sensitivity (mV) 6.6 mV n/a Impedence (Ohms) 494 ohms 495 ohms Pace Threshold n/a n/a Pacing % 12 % 100 % Battery Status: ??6.5 years to SFOI Comments: No events in past 90 days NORMAL DEVICE FUNCTION PROGRAMMED Plan: 1) [employer] Pacemaker evaluation 2) [employer] remote transmission scheduled in 3 months. 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
--- OUTSIDE RECORDS SUMMARY | 2024-09-22 19:06 | XMS_ITS | Encounter Summary ---
Author Organization [facility] Address [address] [place] [address] Care Team Providers Care Manager Military Name Role Phone Say Low MD Primary Care Provider [phone] Reason for Visit * (Routine) - Closed Specialty Diagnoses / Procedures Referred By Yary silveira Referred To Contact Diagnoses Randall II Procedures DEVICE CHECK - REMOTE Wayne Davis MD Phone: tel: fax: [facility] Referral ID Status Reason Start Date Expiration Date Visits Re quested Visits Authorized [id number] Closed 04/25/2019 11/03/2020 1 1 Encounter Details Date Type Department Care Team (Late st Contact Info) Description 03/03/2020 11:15 AM CDT Ancillary Procedure Arrhythmia Center [address] [facility] [address] [place] [address] Mobitz II Social History Tobacco Use Types [...] Diagnosis Comments DEVICE CHECK - REMOTE Routine 03/03/2020 3:19 PM CDT Mobitz II documented in this encounter Results * DEVICE CHECK - REMOTE (03/03/2020 3:19 PM CDT) Anatomical Region Laterality Modality Other Narrative 03/19/2020 5:09 PM CDT This patient received a [employer] Pacemaker. ??They had a routine [employer] remote transmission on 03/03/2020. Device implant [...] to SOFI Episodes last 90 days/Comments: AF [place] 0%. There were no new ventricular events noted on today's remote interrogation. NORMAL DEVICE FUNCTION PROGRAMMED Anti-coagulant(s): ??Aspirin 81 mg Anti-arrhythmic(s): ??Coreg 12.5 mg twice daily Plan: 1) normal [employer] Pacemaker evaluation 2) [employer] remote transmission scheduled in 3 months. 3) Letter sent with transmission results Bhavani White R.N. Wayne Davis MD [facility] PRO CEDURES Final Result documented in this encounter Visit Diagnoses Diagnosis Mobitz II Mobitz (type) II atrioventricular block documented in this encounter Care Teams Manager Military Relationship Specialty Start Date End Date Say Low MD [address] [facility] [address] [place] [address] PCP - General 02/15/17 documented as of this encounter
--- OUTSIDE RECORDS SUMMARY | 2024-09-22 19:06 | XMS_ITS | Encounter Summary ---
Author Organization [facility] [place] Address [address] [facility] [address] [place] [address] Phone Care Team Providers Care Hydrogen Plant Operations Manager Name Role Phone Say Low MD Primary Care Provider [phone] Reason for Visit * Reason Comments Nephrolithiasis * Consultation (Routine) - Closed Specialty Diagnoses / Procedures Referred By Yary silveira Referred To Contact Urology Diagnoses Nephrolithiasis Concetta Thurston MD Phone: tel: fax: Referral ID Status Reason Start Date Expiration Date V isits Requested Visits Authorized [id number] Closed Specialty Services Required 07/11/2018 01/20/2020 99 99 Encounter Details Date Type Department Care Team (Latest Contact Info) Description 07/03/2019 3:00 PM CDT [facility] - [facility] Urology [address] [facility] 11th [place] [address] [place] [address] Elvin Carrillo NP [address] [place] [address] Nephrolithiasis (Primary Dx); Lower urinary tract symptoms [...] file 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 male. Chief Complaint Nephrolithiasis HPI Drew Pak??79 y.o.??male with hx of BPH, elevated PSA, nephrolithiasis, and urethral stricture here for follow up. ?? 1) Urolithiasis He is s/p Left URS on 01/17/19, stone analysis revealed 100% COM. He also had prior left ESWL in 11/2017 for 8mm LP stone, Right PCNL in 06/2009, and Right ESWL in 06/2005 .? His initial??24 hour ua showed??2.58L, calcium 215, sodium 188, oxalate 49, citrate 461, pH 5.7.??He was started on Urocit K but he discontinued it and began taking OTC potassium. Repeat 24 hour ua 05/2018 showed 2.41L, calcium 154, sodium 132, oxalate 46, citrate 261, pH 5.2, elevated supersaturation of uric acid. He is taking Allopurinol. ?? The patient is currently asymptomatic and denies flank pain, fever, chills, nausea, vomiting or hematuria.? 2) BPH/LUTS He was found to have a soft bulbar urethral stricture during 01/17/19 URS. He denies any issues withurination and reports his urine stream is strong. He takes tamsulosin for his BPH/LUTS. He also has hx of elevated PSA with two prostate biopsies, 12/2010 bx was benign and 08/2010 bx showed focal glandular atypia. Last PSA was 1.1 on 05/31/18. He recently had lumbar surgery 6 weeks ago for back pain. Review of Systems Constitutional: Negative for chills, [...] mouth every morning ) 30 0 ??? losartan (COZAAR) 100 mg tablet take 1 tablet by oral route every day (Patient taking differently: Take 100 mg by mouth nightly ) 30 0 ??? bioqujzx-uav-NQ-lycopen-lutein (CENTRUM SILVER) 0.4-300-250 mg-mcg-mcg tablet 1 tab [...] inhaler and inhale every morning )0 0 ??? HYDROcodone-acetaminophen (NORCO) 5-325 mg per tablet Take 1 tablet by mouth every 6 (six) hours as needed for pain 5 tablet 0 Current Facility-Administered Medications on File Prior to Visit Medication Dose Route Frequency Provider Last Rate Last Dose ??? sodium chloride 0.9% flush 0.5-20 mL 0.5-20 mL intra-catheter Q8H INGRID Patrick Taylor MD ??? sodium chloride 0.9% flush 0.5-20 mL 0.5-20 mL intra-catheter PRN Patrick Taylor MD Allergies Allergies Allergen Reactions ??? Contrast Dye [Iodinated Contrast Media] Other (See comments) Decreased HR Physical Exam Constitutional: He is oriented to person, place, and time. He appears well- developed and well-nourished. No distress. Eyes: Pupils are equal, round, and reactive to light. EOM are normal. No scleral icterus. Neck: Normal range of motion. Cardiovascular: Normal rate. Pulmonary/Chest: Effort normal. No respiratory distress. Abdominal: Soft. He exhibits no distension and no mass. There is no tenderness. There is no reboundand no guarding. No hernia. Musculoskeletal: Normal range of motion. Neurological: He is alert and oriented to person, place, and time. Skin: Skin is warm and dry. Results for orders placed or performed in visit on 01/31/19 POCT urinalysis dipstick Result Value Ref Range Glucose, ur, POC 250. (A) Negative mg/dL Ketones, ur, POC Negative Negative Blood, ur, POC 2+ (A) Negative pH, ur, POC 5.0 5.0 - 8.0 Protein, ur, POC Negative Negative Nitrite, ur, POC Negative Negative Leukocytes, ur, POC Negative Negative Lot Number 0 US Retroperitoneal Complete 07/03/19 Status: Final result In Spreadsave Actions Study Result EXAMINATION: COMPLETE RENAL SONOGRAM ?? HISTORY: Nephrolithiasis. Status post laser lithotripsy and extraction of a left ureteral and left intrarenal stones. ?? COMPARISON: CT date 01/04/2019. ?? FINDINGS: ?? Kidneys: The echogenicity of both kidneys is normal. The kidneys are normal in size. The right kidney measures 12.9 cm in length, and the left, 13.5 cm in length. There is no hydronephrosis in either kidney. ? There are 2 areas of twinkle artifact in the lower pole of the right kidney, corresponding to stones seen on the prior examination. One of the 2 has a associated echogenic focus that measures 5 mm. Twinkle artifact is seen in the lower pole of the left kidney without an associated grayscale abnormality likely indicating a tiny stone or Fredi's plaques. There is a 5.6 cm cyst in the upper pole of the left kidney. ?? Bladder: The urinary bladder is normal ?? IMPRESSION: 1. Small intrarenal stones. No hydronephrosis. ?? Electronically signed by: Wojciech Williamson M.D. Assessment/Plan Drew Pak??79 y.o.??male with hx of BPH, elevated PSA, nephrolithiasis, and urethral stricture here for follow up. ?? Diagnoses and all orders for this visit: Nephrolithiasis (N20.0) (Primary) - XR Abdomen Ap 1 Vw; Future TREATMENT RECOMMENDATIONS: Analgesics as needed Prescribed analgesics for pain, Flomax for medical expulsive therapy. Behavioral: Recommend fluid intake to make approximately 2-3 liters of urine per day Recommend low sodium,, low oxalate,, low purine/protein, and increase citrus in diet. Surgical: Recommend stone removal vs observation.Discussed PCNL and risks including bleeding, infection, injury to kidney and adjacent structures including lung, adjacent organs, colon, loss of kidney, failureto eradicate stones, need for additional procedures, as well as benefits and alternatives to the procedure. Discussed ureteroscopic stone extraction and risks including bleeding, infection, ureteral injury/stricture, failure to eradicate stones, need for additional procedures, as well as benefits and alternatives to the procedure.Discussed shock wave lithotripsy and risks including bleeding, renal injury or loss, infection, ureteral obstruction, failure to eradicate stone, need for additional procedures, as well as benefits and alternatives to the procedure. We also discussed anesthetic riskssuch as cardiopulmonary events, thromboembolic events, difficulty with extubation, and other unforeseen events. All questions were answered.Risks of observation discussed including growth of stones resulting in increased difficulty of treatment, infection, which may be life-threatening, hematuria and blood loss, and loss of kidney function. Report intensification of symptoms to my office or go [facility] emergency room for intractable pain, associated fever, chills, nausea, vomiting or hematuria. Lower urinary tract symptoms (LUTS) (R39.9) - Stable on Tamsulosin. - Follow up as scheduled with Dr. Yeager Follow up in 6-8 months with KUDi prior. Cosigned by Concetta Thurston MD at 07/04/2019 12:47 PM CDT documented in this encounter Plan of Treatment Not on file documented as of this encounter Visit Diagnoses Diagnosis Nephrolithiasis- Primary Calculus of kidney Lower urinary tract symptoms (LUTS) documented in this encounter Care Teams Hydrogen Plant Operations Manager Relationship Specialty Start Date End Date Say Low MD [address] [place] [address] [place] [address] PCP - General 02/15/17 documented as of this encounter
--- OUTSIDE RECORDS SUMMARY | 2024-09-22 19:06 | XMS_ITS | Encounter Summary ---
Author Organization [facility] Address [address] [place] [address] Phone Care Team Providers Care Robotic Welding Operator Name Role Phone Say Low MD Primary Care Provider [phone] Reason for Referral * Diagnostic Imaging (Routine) - Closed Specialty Diagnoses / Procedures Referred By Yary silveira Referred To Contact Diagnoses Arthralgia of right ankle Procedures XR Ankle Right 3+ View Chuck Jhaveri MD Phone: tel: fax: [facility] Referral ID Status Reason Start Date Expiration Date Visits Re quested Visits Authorized [id number] Closed 03/03/2020 09/12/2021 1 1 Reason for Visit * Reason Comments Pain Encounter Details Date Type Department Care Team (Late st Contact Info) Description 03/14/2020 10:00 AM CDT Office Visit [facility] Orthopaedic Surgery [address] 2[address] [place] [address] [place] [address] [address] [place] [address] Arthralgia of right ankle (Primary Dx); Ankle arthritis Social History Tobacco Use Types Packs/Day Years Used Date Smoking Tobacco: Former Cigarettes 3 22.6 1 961 - 04/29/1983 Smokeless Tobacco: Never Alcohol Use Standard Drinks/Week Comments No 0 (1 standard drink = 0.6 oz pur e alcohol) Sex and Gender Information Value Date Recorded Sex Assigned at Not on file 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 NEW PATIENT VISIT CHIEF COMPLAINT Chief Complaint Patient presents with ??? Right Ankle - Pain HISTORY OF PRESENT ILLNESS Drew Pak is a 79-year-old gentleman who presents for evaluation of right ankle pain. He is well known to this clinic. He suffered a right pilon fracture in 2010 that underwent ORIF at [facility]. He came to our clinic in 2016 with painful hardware and subsequently had a screw removed from his anterolateral ankle. He did well afterwards and comes to the clinic today with stabbing pains at his anterior ankle. These pains are episodic, sharp in quality and severe at times.They are unpredictable. Of note he also recently underwent lumbar surgery at [facility] and also had a pacemaker placed. The pains in his ankle are minimal compared to his low back pain. He is concerned that perhaps he has another screw that is in need of removal PAST MEDICAL HISTORY He has a past medical history of Arthritis, CHF (congestive heart failure) ([facility]), Chronic kidney disease, Congestive heart failure (CHF) ([facility]/HCC), COPD (chronic obstructive pulmonary disease) ([facility]), Diabetes mellitus ([facility]), OTHER MEDICAL, Hyperlipidemia, Hypertension, Kidney stone, and Urolithiasis. He also has no past medical history of Asthma, Awareness under anesthesia, Cancer (CMS/HCC), Clotting disorder (CMS/HCC), Delayed emergence from general anesthesia, Hard to intubate, Malignant hyperthermia, Motion sickness, PONV (postoperative nausea and vomiting), Postoperative delirium, Pseudocholinesterase deficiency, Shortness of breath, Sleep apnea, Stroke (CMS/HCC), Syncope, or Thyroid disease. PAST SURGICAL HISTORY He has a past surgical history that includes Coronary artery bypass graft (2003); Cardiac catheterization; Cardiac pacemaker placement; Lithotripsy; Tibia fracture surgery (2010); Upper gastrointestinal endoscopy; and Back surgery. INITIAL REVIEW OF MEDICATIONS He has a current medication list which includes the following prescription(s): allopurinol, amlodipine, anoro ellipta, aspirin, carvedilol, cholecalciferol, diclofenac dr, furosemide, losartan, centrum silver, fish oil, potassium citrate er, simvastatin, synjardy xr, tamsulosin, and omeprazole, andthe following Facility-Administered Medications: sodium chloride 0.9% and sodium chloride 0.9%. DRUG ALLERGIES He has No Known Allergies. SOCIAL HISTORY He reports that he quit smoking about 36 years ago. He started smoking about 59 years ago. He smoked 3.00 packs per day. He has never used smokeless tobacco. He reports that he does not drink alcoholor use drugs. FAMILY HISTORY His family history includes Alzheimer's disease in his mother; Arthritis in his mother; Cancer in his father; Diabetes in his mother; Gout in his mother; Heart attack in his father and another familymember; Heart disease in his father; Hypertension in his father and mother; Stroke in his mother. REVIEW OF SYSTEMS Ten systems reviewed and negative. PHYSICAL EXAMINATION Drew Pak is 5 feet 10 in tall and weighs 230 pounds. He is alert and in no acute distress. Respirations are normal and hearing is intact to spoken word. Gait is within normal limits. There is minimal swelling. There are no skin rashes or lesions on bilateral lower extremities. Well-healed anterior incision. Hindfoot alignment is neutral. On seated exam, there is intact dorsiflexion, plantar flexion, inversion and eversion. He has about 15-20 degrees arc of motion in dorsi/plantar flexion. Strength is 5 out of 5 throughout bilaterally. Sensation is intact to light touch over both feet with exception of decreased sensation over the dorsum of his right foot. There are 2+ dorsalis pedis and posterior tibial pulses bilaterally. He is tender to palpation across the anterior joint line, nontender over medial lateral subtalar joint. There is no prominent hardware or any tenting of skin. No significant change in alignment. Armando Macdonald MD Vice President Planning PGY-2 Department of Orthopaedic Surgery [facility] [employer] [phone] REVIEW OF X-RAYS/STUDIES Three views of the right ankle were ordered and reviewed in clinic today. They demonstrate progressive tibiotalar arthritis and some continue collapse of the joint surface at the ankle and slightly more subsidence of the anterior portion of the plate down onto the dorsal neck of the talus. However, there is no evidence of significant hardware breakage. None of the screws are backing out of the plate causing any tenting of the skin. Subtalar joint appears healthy with well-maintained joint space. IMPRESSION/DIAGNOSIS 79-year-old male he with history of right pilon fracture in 2010 who has progressive posttraumatic tibiotalar arthritis. 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 He has multiple options for treatment of this arthritis, ranging from bracing to injections to surgery to fuse this ankle joint formally. At this point the patient's greatest concern is his low back pain he and he is not interested in pursuing surgery for his ankle. He has shoes that he feels are comfortable for him and does not want to pursue bracing or injections at this time either. He was most interested to make sure that there were no screws backing out of his construct. TREATMENT/PLAN I have reviewed my history, physical findings and radiographs with the patient. 1. Patient would not like to pursue further treatment of his right ankle arthritis at this point given his other medical comorbidities 2. Follow-up as needed if his symptoms worsen All questions answered he is comfortable with this plan. Dictated using Fluency Direct. Biofuels Engineering Manager variances may occur. Chuck Jhaveri MD Professor Chief, Foot Ankle Service [facility] documented in this encounter Plan of Treatment Not on file documented as of this encounter Results * XR Ankle Right 3+ View (03/14/2020 10:25 AM CDT) Anatomical Region Laterality Modality Lower Extremities, Ankle Right Compute d Radiography 03/14/2020 10:3 7 AM CDT Impressions 03/14/2020 10:37 AM CDT 1. Healed, internally fixated right tibial pilon fracture with removal of prominent screw. 2. Unchanged severe right ankle osteoarthritis with [id number] contact anteriorly. Electronically signed by: Morales Aparicio M.D. Narrative 03/14/2020 10:37 AM CDT EXAMINATION: Right ankle complete HISTORY: Right ankle pain FINDINGS: 3 view weightbearing examination of the right ankle is compared with a study from 10/17/2015. There is a healed right tibial pilon fracture stabilized with anterolateral L plate and screws and interfragmentary screws. Prominent screw seen on the prior study has been removed. There is severe tibiotalar posttraumatic osteoarthritis with byaw-uw-pzww contact and large anterior spurs, likely forming a mechanical block to ankle motion. There is a healed bone graft harvest site or pin tract in the calcaneus. There is mild, diffuse soft tissue swelling and subcutaneous edema. Procedure Note Morales Aparicio MD - 03/14/2020 EXAMINATION: Right ankle complete HISTORY: Right ankle pain FINDINGS: 3 view weightbearing examination of the right ankle is compared with a study from 10/17/2015. There is a healed right tibial pilon fracture stabilized with anterolateral L plate and screws and interfragmentary screws. Prominent screw seen on the prior study has been removed. There is severe tibiotalar posttraumatic osteoarthritis with jfqa-ns-yqna contact and large anterior spurs, likely forming a mechanical block to ankle motion. There is a healed bone graft harvest site or pin tract in the calcaneus. There is mild, diffuse soft tissue swelling and subcutaneous edema. IMPRESSION: 1. Healed, internally fixated right tibial pilon fracture with removal of prominent screw. 2. Unchanged severe right ankle osteoarthritis with fujj-mw-jzsb contact anteriorly. Electronically signed by: Morales Aparicio M.D. Chuck Jhaveri MD IMG XR PROCEDURES Final Re sult documented in this encounter Visit Diagnoses Diagnosis Arthralgia of right ankle- Primary Ankle arthritis Unspecified arthropathy, ankle and foot Arthralgia of right ankle documented in this encounter Discontinued Medications Medication Sig Discontinue Reason Start Date End Da te allopurinol (ZYLOPRIM) 100 mg tablet take 1.5 tablet by oral route every day 09/10/2015 03/14/2020 documented as of this encounter Historical Medications * This list may reflect changes made after this encounter. allopurinoL (ZYLOPRIM) 300 mg tablet Take 0.5 tablets (150 mg total) by mouth daily 150 mg daily 12/15/2019 Anoro Ellipta 62.5-25 mcg/actuation blister with device Take 1 puff by mouth daily 03/06/2020 08/25/2020 potassium citrate ER (UROCIT-K) 10 mEq (1,080 mg) CR tablet Take 1 tablet by mouth 2 (two) times a day 03/09/2020 10/06/2020 added in this encounter Care Teams Robotic Welding Operator Relationship Specialty Start Date End Date Say Low MD [address] [place] [address] PCP - General 02/15/17 documented as of this encounter
--- OUTSIDE RECORDS SUMMARY | 2024-09-22 19:06 | XMS_ITS | Encounter Summary ---
Author Organization [facility] Healthcare Address [address] [place] [address] Care Team Providers Care Photonics Engineer Name Role Phone Say Low MD Primary Care Provider [phone] Reason for Referral * Diagnostic Imaging (Routine) - Closed Specialty Diagnoses / Procedures Referred By Yary silveira Referred To Contact Diagnoses Arthralgia of right ankle Procedures XR Ankle Right 3+ View Chuck Jhaveri MD Phone: tel: fax: [facility] Referral ID Status Reason Start Date Expiration Date Visits Re quested Visits Authorized [id number] Closed 03/03/2020 09/12/2021 1 1 Reason for Visit * Diagnostic Imaging (Routine) - Closed Specialty Diagnoses / Procedures Referred By Yary silveira Referred To Contact Diagnoses Arthralgia of right ankle Procedures XR Ankle Right 3+ View Chuck Jhaveri MD Phone: tel: fax: [facility] Referral ID Status Reason Start Date Expiration Date Visits Re quested Visits Authorized [id number] Closed 03/03/2020 09/12/2021 1 1 Encounter Details Date Type Department Care Team (Latest Contact Info) Description 03/14/2020 9:50 AM CDT - 03/14/2020 11:59 PM CDT Hospital Encounter [facility] [address] [place] [address] [place] [address] [facility] [address] [place] [address] Arthralgia of right ankle Discharge Disposition: Discharge to home or self [...] on file 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 Gender Identity Male 07/10/2021 8:31 AM CDT [...] capsule (40 mg total) by mouth daily SYNJARDY XR 5-1,000 mg tablet, IR & ER, biphasic 24hr Take 1,000 mg by mouth every morning 0 03/28/2018 tamsulosin (FLOMAX) 0.4 mg capsule,extended release 24hr take 1 capsule by oral route every day 1/2 hour following the same meal each day 0 0 09/10/2015 amLODIPine (NORVASC) 5 mg tablet take 1 tablet by oral route every day 0 0 09/23/2016 1 Anoro Ellipta 62.5-25 mcg/actuation blister with device Take 1 puff by mouth daily 03/06/2020 0 aspirin 81 mg tablet take 1 tablet by oral route every day 0 0 11/17/2015 1 carvediloL (COREG) 12.5 mg tablet TAKE 1 TABLET(12.5 MG) BY MOUTH TWICE DAILY WITH MEALS 180 tablet 01/07/[address] (VOLTAREN) 75 mg EC tablet take 1 tablet by oral route every day 0 0 09/10/2015 1 furosemide (LASIX) 40 mg tablet Take 40 mg by mouth daily 12/13/2019 2 losartan (COZAAR) 100 mg tablet take 1 tablet by oral route every day 30 0 11/17/2015 4 ewaqptmu-wgf-HU- lycopen-lutein (CENTRUM SILVER) 0.4-300-250 mg-mcg-mcg tablet 1 tab daily 0 0 09/10/2015 2 omega-3 fatty acids-fish oil (FISH OIL) 300-1,000 mg capsule 1 capsule daily 0 0 09/10/2015 2 potassium citrate ER (UROCIT-K) 10 mEq (1,080 mg) CR tablet Take 1 tablet by mouth 2 (two) times a day 03/09/2020 1 simvastatin (ZOCOR) 20 mg tablet take 1 tablet by oral route every day at bedtime 0 0 09/10/2015 2 documented as of this encounter Discharge Disposition Disposition Code Departure Means Destination Discharge to home or self care documented in this encounter Plan of Treatment Not on file documented as of this encounter Procedures Procedure Name Priority Date/Time Associated Diagnosis Comments XR ANKLE RIGHT 3 OR MORE VIEWS Schedule Routine, Read Routine (OP Routine) 03/14/2020 10:25 AM CDT Arthralgia of right ankle documented in this encounter Results * XR Ankle Right 3+ View (03/14/2020 10:25 AM CDT) Anatomical Region Laterality Modality Lower Extremities, Ankle Right Compute d Radiography 03/14/2020 10:3 7 AM CDT Impressions 03/14/2020 10:37 AM CDT 1. Healed, internally fixated right tibial pilon fracture with removal of prominent screw. 2. Unchanged severe right ankle osteoarthritis with vlow-pe-iefw contact anteriorly. Electronically signed by: Morales Aparicio [...] There is severe tibiotalar posttraumatic osteoarthritis with bxoh-ye-qkom contact and large anterior spurs, likely forming [...] There is severe tibiotalar posttraumatic osteoarthritis with mffc-na-xfuf contact and large anterior spurs, likely forming a mechanical block to ankle motion. There is a healed bone graft harvest site or pin tract in the calcaneus. There is mild, diffuse soft tissue swelling and subcutaneous edema. IMPRESSION: 1. Healed, internally fixated right tibial pilon fracture with removal of prominent screw. 2. Unchanged severe right ankle osteoarthritis with iabz-hq-fljo contact anteriorly. Electronically signed by: Morales Aparicio M.D. Chuck Jhaveri MD IMG XR PROCEDURES Final Re sult documented in this encounter Visit Diagnoses Diagnosis Arthralgia of right ankle documented in this encounter Care Teams Photonics Engineer Relationship Specialty Start Date End Date Say Low MD [address] [facility] [address] [place] [id number] PCP - General 02/15/17 documented as of this encounter
--- OUTSIDE RECORDS SUMMARY | 2024-09-22 19:06 | XMS_ITS | Encounter Summary ---
Author Organization [facility] Medical Group Address [address] [place] [address] Care Team Providers Care Music Agent Name Role Phone Say Low MD Primary Care Provider [phone] Reason for Visit * Reason Onset Date Comments CRMD form 01/30/2021 Encounter Details Date Type Department Care Team (Late st Contact Info) Description 01/30/2021 Telephone Arrhythmia Center [address] [facility] [address] [place] [address] Bhavani White RN CRMD form Social History Tobacco Use Types Packs/Day Years Used Date Smoking Tobacco: Former Cigarettes 3 22.6 1 961 - 04/29/1983 Smokeless Tobacco: Never Alcohol Use Standard Drinks/Week Comments No 0 (1 standard drink = 0.6 oz pur e alcohol) Sex and Gender Information Value Date Recorded Sex Assigned at Not on file 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 Gender Identity Male 07/10/2021 8:31 AM CDT Sexual Orientation Straight 06/12/2021 8: 44 AM CDT documented as of this encounter Miscellaneous Notes * Telephone Encounter - Bhavani White RN - 01/30/2021 11:02 AM CDT See scanned CRMD form documented in this encounter Plan of Treatment Not on file documented as of this encounter Visit Diagnoses Not on filedocumented in this encounter Care Teams Music Agent Relationship Specialty Start Date End Date Say Low MD [address] [facility] [address] [address] [facility] [address] [place] [address] PCP - General 02/15/17 documented as of this encounter
--- OUTSIDE RECORDS SUMMARY | 2024-09-22 19:06 | XMS_ITS | Encounter Summary ---
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 Procedures NM MPI SPECT (Rest and/or Stress) Multiple Studies Guzman Boykin MD Phone: tel: fax: [facility] [address] [place] [address] Referral ID Status Reason Start Date Expiration Date Visits Re quested Visits Authorized [id number] Closed 05/01/2019 11/09/2020 5 5 Encounter Details Date Type Department Care Team (Latest Contact Info) Description 05/10/2019 10:30 AM CDT Ancillary Procedure [facility] OP Cardiac Testing [address] [facility] [address] [place] [address] Guzman Boykin MD [address] [facility] [address] [place] [address] 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; Essential hypertension; Mixed hyperlipidemia; AV block; Pacemaker; Silent myocardial ischemia; 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 Social History Tobacco Use Types Packs/Day Years Used Date Smoking Tobacco: Former Cigarettes 3 22.6 1 961 - 04/29/1983 Smokeless Tobacco: Never Alcohol Use Standard Drinks/Week Comments No 0 (1 standard drink = 0.6 oz pur e alcohol) Sex and Gender Information Value Date Recorded Sex Assigned at Not on file 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 Gender Identity Male 07/10/2021 8:31 AM CDT Sexual Orientation Straight 06/12/2021 8: 44 AM CDT documented as of this encounter Plan of Treatment Not on file documented as of this encounter Procedures Procedure Name Priority Date/Time Associated Diagnosis Comments NM MPI SPECT (REST AND/OR STRESS) MULTIPLE STUDIES Schedule Routine, Read Routine (OP Routine) 05/10/2019 11:24 AM CDT 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 Essential hypertension Mixed hyperlipidemia AV block Pacemaker 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 documented in this encounter Results * NM MPI SPECT (Rest and/or Stress) Multiple Studies (05/10/2019 11:24 AM CDT) Anatomical Region Laterality Modality Body N/A Nuclear Medicine 05/10/2019 9:08 AM CDT Narrative 05/11/2019 7:09 AM CDT [facility] [address] [place] [id number] MPI Imaging Report Patient Name: RDEW NEWMAN GENE : 1940 Study Date: 05/10/2019 9:08:55 AM Gender: M Tech: SP Ref.Provider: GUZMAN BOYKIN Height(Cm): BSA: Weight(Kg): Heart Rate: 122 Order Provider: GUZMAN BOYKIN Procedures: Pharmacologic SPECT Report.: Myocardial perfusion imaging with Sestamibi SPECT at rest and post regadenoson (Lexiscan) infusion. Indications: Coronary Artery Disease, Pre-Op Clearance, and Pacemaker, HTN, AV block, [place]. Findings: Procedure Data: One day rest/stress protocol was used with IV site located at left arm. Lexiscan Protocol. Sestamibi injected IV at rest was 8.6 millicuries. Rest SPECT imaging was performed 30 minutes post injection. Lexiscan 0.4mg given IV over 10 seconds. Sestamibi injected IV post Lexiscan was 25.3 millicuries. Stress SPECT Gated imaging was performed 45 minutes post Lexiscan injection. TID: 0.87. Resting HR 66 bpm. Peak HR: 80 bpm. Predicted Maximal HR 143 bpm. Target HR: 122 bpm. Baseline BP: 155/81 mmHg. Peak BP: 166/81 mmHg. Performed By: Elgin Estrada RN. Reason for Termination: Lexiscan protocol complete. Resting ECG: Paced. Post Pharm ECG: Nondiagnostic due to paced rhythm. Arrhythmia: No arrhythmias seen. Cardiac Symptoms With Stress: Symptoms with stress were Dyspnea and overall odd feeling. Symptoms were resolved with rest and caffeine. BP Response: Blood pressure response is appropriate. Perfusion: There is moderately diminished perfusion at the LV apex and mid to apical septam at both stress and rest. Diminished inferior wall perfusion is more prominent in the resting images and is likely due to diaphragm artifact. No significant reversible ischemia is seen. LV Function: Left ventricular ejection fraction is 45 %. WallMotion PostPharm: Moderate apical and septal hypokinesis. Conclusions: 1. Left ventricular ejection fraction is [...] an acceptable candidate for his surgical procedure. Electronically Signed By: Guzman Boykin MD, [facility] 2019-05-11 07:09:31 CDT CC: CC: Procedure Note Guzman Boykin MD - 05/11/2019 [facility] [address] [place] [id number] MPI Imaging Report Patient Name: DREW NEWMAN GENEPatient ID: [id number] : [id number] Date: 05/10/2019 9:08:55 AM Gender: MAccession #: [id number] Tech: [facility].Provider: GUZMAN BOYKIN Height(Cm): BSA: Weight(Kg): Heart Rate: 122 Order Provider: GUZMAN BOKYIN Procedures: Pharmacologic SPECT Report.: Myocardial perfusion imaging with Sestamibi SPECT at rest and postregadenoson (Lexiscan) infusion. Indications: Coronary Artery Disease, Pre-Op Clearance, and Pacemaker, HTN, AV block,[place]. Findings: Procedure Data: One day rest/stress protocol was used with IV site located at left arm.Lexiscan Protocol. Sestamibi injected IV at rest was 8.6 millicuries. Rest SPECTimaging was performed 30 minutes post injection. Lexiscan 0.4mg given IV over 10seconds. Sestamibi injected IV post Lexiscan was 25.3 millicuries. Stress SPECT Gated imagingwas performed 45 minutes post Lexiscan injection. TID: 0.87. Resting HR 66 bpm. Peak HR:80 bpm. Predicted Maximal HR 143 bpm. Target HR: 122 bpm. Baseline BP: 155/81mmHg. Peak BP: 166/81 mmHg. Performed By: Elgin Estrada RN. Reason for Termination: Lexiscan protocol complete. Resting ECG: Paced. Post Pharm ECG: Nondiagnostic due to paced rhythm. Arrhythmia: No arrhythmias seen. Cardiac Symptoms With Stress: Symptoms with stress were Dyspnea and overall odd feeling. Symptoms wereresolved with rest and caffeine. BP Response: Blood pressure response is appropriate. Perfusion: There is moderately diminished perfusion at the LV apex and mid to apicalseptam at both stress and rest. Diminished inferior wall perfusion is more prominent inthe resting images and is likely due to diaphragm artifact. No significant reversibleischemia is seen. LV Function: Left ventricular ejection fraction is 45 %. WallMotion PostPharm: Moderate apical and septal hypokinesis. Conclusions: 1. Left ventricular ejection fraction is 45 %. 2. There is moderately diminished perfusion at the LV apex and mid toapical septam at both stress and rest. Diminished inferior wall perfusion is more prominentin the resting images and is likely due to diaphragm artifact. No significant reversibleischemia is seen. 3. Based on these findings,from an ischemic standpoint, the patient is anacceptable candidate for his surgical procedure. 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 sodium chloride 0.9% flush 0.5-20 mL 0.5-20 mL, intra-catheter, As needed, line care, Starting on Lisa 05/10/19 at 1003, Pre-Procedure (CV), Flush volume based on line type and size. Flush before and after each use. Inactive Administered Medications - up to 3 most recent administrations Medication Order MAR Action Action Date Dose Rate Site regadenoson (LEXISCAN) 0.4 mg/5 mL injection 0.4 mg 0.4 mg, intravenous, Once, On Lisa 05/10/19 at 1045, For 1 dose, Pre-Procedure (CV), Rapid IV injection (10 seconds). Administer IV push over 10 seconds., Indications: Myocardial Perfusion Imaging AdjunctIndications:Myocard ial Perfusion Imaging Adjunct Given 05/10/2019 10:35 AM CDT 0.4 mg tc-99m sestamibi unit dose injection 25.3 millicurie 25.3 millicurie, intravenous, Once in imaging, radiopharmaceutical, Starting on Lisa 05/10/19 at 1001, For 1 dose, Indications: Diagnostic RadiographyIndications:Windy gnostic Radiography Given 05/10/2019 10:35 AM CDT 25.3 millicuries tc-99m sestamibi unit dose injection 8.6 millicurie 8.6 millicurie, intravenous, Once in imaging, radiopharmaceutical, Starting on Lisa 05/10/19 at 1001, For 1 dose, Indications: Diagnostic RadiographyIndications:Windy gnostic Radiography Given 05/10/2019 10:03 AM CDT 8.6 millicuries documented in this encounter Orders Medications Ordered That Addy ht Not Have Been Administered Count Last Ordered Date First Ordered Date sodium chloride 0.9% flush 0.5-20 mL 2 05/2019 Nursing Count Last Ordered Date First Orde red Date MAINTAIN IV ACCESS 1 05/10/2019 IV Count Last Ordered Date First Orde red Date INSERT PERIPHERAL IV 1 05/10/2019 documented in this encounter Care Teams Solid Surface Fabricator Relationship Specialty Start Date End Date Say Low MD [address] [facility] [address] [place] [address] PCP - General 02/15/17 documented as of this encounter
--- OUTSIDE RECORDS SUMMARY | 2024-09-22 19:06 | XMS_ITS | Encounter Summary ---
Author Organization [facility] Medical Group Address [address] [place] [address] Care Team Providers Care Blood Bank Coordinator Name Role Phone Say Low MD Primary Care Provider [phone] Reason for Visit * (Routine) - Closed Specialty Diagnoses / Procedures Referred By Yary silveira Referred To Contact Diagnoses Randall II Procedures DEVICE CHECK - REMOTE Wayne Davis MD Phone: tel: fax: [facility] Medical Group Referral ID Status Reason Start Date Expiration Date Visits Re quested Visits Authorized [id number] Closed 04/25/2019 11/03/2020 1 1 Encounter Details Date Type Department Care Team (Latest Contact Info) Description 05/21/2019 12:20 PM CDT Ancillary Procedure Arrhythmia Center [address] [place] [id number] Mobitz II; First degree AV block; Pacemaker Social History Tobacco Use Types Packs/Day Years Used Date Smoking Tobacco: Former Cigarettes 3 22.6 1 961 - 04/29/1983 Smokeless Tobacco: Never Alcohol Use Standard Drinks/Week Comments No 0 (1 standard drink = 0.6 oz pur e alcohol) Sex and Gender Information Value Date Recorded Sex Assigned at Not on file 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 ??They had a routine Latitude remote transmission on 05/21/2019. ?? Interrogation of the patient? s device demonstrates the following: Presenting EGM: ??As Neck Pinner @ 70 bpm Lead Measurements Right Atrium Right Ventricle Sensitivity (mV) 6.6 mV n/a Impedence (Ohms) 494 ohms 495 ohms Pace Threshold n/a n/a Pacing % 12 % 100 % Battery Status: ??6.5 years to SOFI Comments: No events in past 90 days NORMAL DEVICE FUNCTION PROGRAMMED Plan: 1) [employer] Pacemaker evaluation 2) Latitude remote transmission scheduled in 3 months. 3) Letter sent with transmission results Bernard Xiong (Jerri), FCS, CCDS-Arrhythmia Device Specialist us Wayne Davis MD [facility] PRO CEDURES Final Result documented in this encounter Visit Diagnoses Diagnosis Mobitz II Mobitz (type) II atrioventricular block First degree AV block First degree atrioventricular block Pacemaker Cardiac pacemaker in situ documented in this encounter Care Teams Blood Bank Coordinator Relationship Specialty Start Date End Date Say Low MD [address] [facility] [address] [place] [address] PCP - General 02/15/17 documented as of this encounter
--- OUTSIDE RECORDS SUMMARY | 2024-09-22 19:06 | XMS_ITS | Encounter Summary ---
Author Organization [facility] Address [address] [place] [address] Phone Care Team Providers Care Candy Dipper Hand Name Role Phone Say Low MD Primary Care Provider [phone] Encounter Details Date Type Department Care Team (Late st Contact Info) Description 02/14/2019 Telephone [facility] Scheduling [address] [place] [address] Deanna Gamble BS Social History Tobacco Use Types Packs/Day Years Used Date Smoking Tobacco: Former Cigarettes 3 22.6 1 961 - 04/29/1983 Smokeless Tobacco: Never Alcohol Use Standard Drinks/Week Comments No 0 (1 standard drink = 0.6 oz pur e alcohol) Sex and Gender Information Value Date Recorded Sex Assigned at Not on file 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 * Telephone Encounter - Fabiana Child CNA - 02/15/2019 10:03 AM CDT Pt. Called back and scheduled with Dr. Rojas on 05/28. PT. IS AWARE TO BRING CD TO APPT. AND TO ARRIVE 20 MINS. EARLY FOR XRAYS. Waiting on Injection report. Added to tally. * Telephone Encounter - Deanna Gamble BS - 02/15/2019 7:54 AM CDT rcvd PT and pm injections * Telephone Encounter - Tenisha Mendoza BS - 02/14/2019 2:09 PM CDT Called and left vm for patient to schedule with physiatry * Telephone Encounter - Bhavani Mcleod NP - 02/14/2019 1:07 PM CDT Physiatry * Telephone Encounter - Tenisha Mendoza BS - 02/14/2019 1:00 PM CDT THO-reg/intake updated, records/imaging is in Media. Will you see? No previous spine surgeries. Waiting on PT and injection notes * Telephone Encounter - Tenisha Mendoza BS - 02/14/2019 12:51 PM CDT Department of Neurological Surgery at [facility] Spine Intake 02/14/19 Drew Pak 1940 [id number] Cell [id number] Say Low MD Referring physician: PCP (Dr. Low) Office number: [phone] Office Caller Name: Patient Referred to: Dr. Petey Schaffer Assigned to: Consult: Yes Second Opinion: No Diagnosis: Advanced lumbar spondylosis Requested Timeframe: Location (Spinal Area): Lumbar Incontinence: No Weakness: Yes - both legs (more left) Numbness: Yes - bottom of feet Pain: Yes -electric shock in both legs Duration of symptoms: 6 weeks HT: 5'10 WT: 230lbs BMI: 33 Prior spine surgery: No Physical therapy: Yes- [facility] Injections: Yes- (Dr. Kinsey) Are you a current smoker: No Other surgeons seen: No Litigation: No MVA: No W/C: No Insurance: Medicare A/B and BCBS Supplement Imaging Done: Yes CT- 01/24/2019 ([facility]) CT- 03/14/2018 ([facility]) Does the patient have any metal in their body? Yes - pacemaker, screws in right leg and wire in chest Appointment scheduled: PT TO BRING CD AND ARRIVE 45 MINS EARLY * Telephone Encounter - Deanna Gamble BS - 02/14/2019 11:34 AM CDT THO PS rcvd ref, notes, CT documented in this encounter Plan of Treatment Not on file documented as of this encounter Visit Diagnoses Not on filedocumented in this encounter Care Teams Candy Dipper Hand Relationship Specialty Start Date End Date Say Low MD [address] [place] [address] [place] [address] PCP - General 02/15/17 documented as of this encounter
--- OUTSIDE RECORDS SUMMARY | 2024-09-22 19:06 | XMS_ITS | Encounter Summary ---
Author Organization [facility] Address [address] [place] [address] Care Team Providers Care Clinical Business Analyst Name Role Phone Say Low MD Primary Care Provider [phone] Reason for Visit * (Routine) - Closed Specialty Diagnoses / Procedures Referred By Yary silveira Referred To Contact Diagnoses Randall II Procedures DEVICE CHECK - REMOTE Wayne Davis MD Phone: tel: fax: [facility] Referral ID Status Reason Start Date Expiration Date Visits Re quested Visits Authorized [id number] Closed 04/25/2019 11/03/2020 1 1 Encounter Details Date Type Department Care Team (Late st Contact Info) Description 06/02/2020 2:30 PM CDT Ancillary Procedure Arrhythmia Center 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 ??They had a routine [employer] remote transmission on 06/02/2020. Device implant [...] to SOFI Episodes last 90 days/Comments: AF Clifford less than 0.1 %, longest duration there was 1 episode noted for approximately 3 seconds in duration. There were no new ventricular events noted on today's remote interrogation. NORMAL DEVICE FUNCTION PROGRAMMED Anti-coagulant(s): ??Aspirin 81 mg Anti-arrhythmic(s): ??Coreg 12.5 mg twice daily Plan: 1) normal [employer] Pacemaker evaluation 2) [employer] remote transmission scheduled in 3 months. Bhavani White R.N. us Wayne Davis MD CV CARDIAC SERVICES PRO CEDURES Final Result documented in this encounter Visit Diagnoses Diagnosis Mobitz II Mobitz (type) II atrioventricular block documented in this encounter Care Teams Clinical Business Analyst Relationship Specialty Start Date End Date Say Low MD [address] [place] [address] PCP - General 02/15/17 documented as of this encounter
--- OUTSIDE RECORDS SUMMARY | 2024-09-22 19:06 | XMS_ITS | Encounter Summary ---
Author Organization [facility] Address [address] [place] [address] Care Team Providers Care Respiratory Care Practitioner Name Role Phone Say Low MD Primary Care Provider [phone] Reason for Visit * (Routine) - Closed Specialty Diagnoses / Procedures Referred By Yary silveira Referred To Contact Diagnoses Randall II Procedures DEVICE CHECK - REMOTE Wayne Davis MD Phone: tel: fax: [facility] Referral ID Status Reason Start Date Expiration Date Visits Re quested Visits Authorized [id number] Closed 05/20/2020 06/19/2021 1 1 Encounter Details Date Type Department Care Team (Late st Contact Info) Description 09/08/2020 1:00 PM PLASTER MODEL AND MOLD MAKER Ancillary Procedure Arrhythmia Center [address] [place] [address] Mobitz II Social History Tobacco Use Types Packs/Day Years Used Date Smoking Tobacco: Former Cigarettes 3 22.6 1 961 - 04/29/1983 Smokeless Tobacco: Never Alcohol Use Standard Drinks/Week Comments No 0 (1 standard drink = 0.6 oz pur e alcohol) Sex and Gender Information Value Date Recorded Sex Assigned at Not on file Legal Sex Male 8: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 Gender Identity Male 07/10/2021 8:31 AM CDT Sexual Orientation Straight 06/12/2021 8: 44 AM CDT documented as of this encounter Plan of Treatment Not on file documented as of this encounter Procedures Procedure Name Priority Date/Time Associated Diagnosis Comments DEVICE CHECK - REMOTE Routine 09/08/2020 12:38 PM PLASTER MODEL AND MOLD MAKER Mobitz II documented in this encounter Results * DEVICE CHECK - REMOTE (09/08/2020 12:38 PM PLASTER MODEL AND MOLD MAKER) Anatomical Region Laterality Modality Other Narrative 09/11/2020 9:19 AM PLASTER MODEL AND MOLD MAKER This patient received a [employer] Pacemaker. ??They had a routine [employer] remote transmission on 09/08/2020. Device implant indications: ??Mobitz type 2 ?? Interrogation of the patient's device demonstrates the following: Presenting EGM: ??A sense V pace @ 62 bpm Lead Measurements Right Atrium Right Ventricle Sensitivity (mV) 7.0 mV paced mV Impedence (Ohms) 492 ohms 479 ohms Pace Threshold Not done V @ ms 0.7 V @ 0.40 ms Pacing % 11 % 100 % Battery Status: ??5.5 years to SOFI Episodes last 90 days/Comments: AF [place] 0 %. There were no new ventricular events noted on today's remote interrogation. NORMAL DEVICE FUNCTION PROGRAMMED Anti-coagulant(s): ??Aspirin 81 mg Anti-arrhythmic(s): ??Coreg 12.5 mg twice daily Plan: 1) normal [employer] Pacemaker evaluation 2) [employer] remote transmission scheduled in 3 months. Bhavani White R.N. us Wayne Davis MD CV CARDIAC SERVICES PRO CEDURES Final Result documented in this encounter Visit Diagnoses Diagnosis Mobitz II Mobitz (type) II atrioventricular block documented in this encounter Care Teams Respiratory Care Practitioner Relationship Specialty Start Date End Date Say Low MD [address] [facility] [address] [place] [id number] PCP - General 02/15/17 documented as of this encounter
--- OUTSIDE RECORDS SUMMARY | 2024-09-22 19:06 | XMS_ITS | Encounter Summary ---
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 Gender Identity Male 07/10/2021 8:31 AM CDT Sexual Orientation Straight 06/12/2021 8: 44 AM CDT documented as of this encounter Plan of Treatment Not on file documented as of this encounter Procedures Procedure Name Priority Date/Time Associated Diagnosis Comments TRANSTHORACIC ECHO (TTE) COMPLETE W DOPPLER/CF W CONTRAST Routine 05/10/2019 10:04 AM CDT Atherosclerosis of [place] coronary artery of [place] heart without angina pectoris Essential hypertension Mixed hyperlipidemia AV block Pacemaker 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 [address] [place] [id number] ECHOCARDIOGRAM Patient Name: DREW NEWMAN GENE : 1940 Study Date: 05/10/2019 9:01:58 AM Gender: M Tech: MAC Ref.Provider: GUZMAN BOYKIN Height(Cm): 178 BSA: 2.32 Weight(Kg): 109.3Order Provider: GUZMAN BOYKIN - Procedures: Echocardiographic Report: Transthoracic Echocardiogram with 2D, M-Mode, Spectral and Color Flow Doppler examination and administration of intravenous contrast. Indications: Coronary artery disease, [place] vessel, and Hypertension. Measurements: 2D/M Mode ?Doppler ? Measurement ?Value ?Normal Range ? Measurement ?Value ?Normal Range ? IVSd 2D ?1.23 ? [ 0.60 - 0.90 ] cm ? AV Peak Rommel ?2.0 ?[ 1.0 - 1.7 ] m/s ? LVIDd 2D ? 5.55 ? [ 4.20 - 5.90 ] cm ? AV Peak PG ? 16 ? [ 2 - 9 ] mmHg ? LVIDs 2D ? 4.15 ? [ 2.30 - 3.90 ] cm ? AV Mean PG ? 9 ?[ 2 - 4 ] mmHg ? LVPWd 2D ? 1.42 ? [ 0.60 - 1.00 ] cm ? AV VTI ? 44.0 ? cm ? LA Volume Index ?48.00 ?[ 16.00 - 28.00 ] ml/m2 ?YONY VTI ?1.9 ?[ 2.0 - 4.0 ] cm2 ? LVOT Peak Rommel ?1.01 ? [ 0.70 - 1.10 ] m/s ? LVOT Diam ?2.2 ?[ 1.7 - 2.1 ] cm ? LVOT Peak PG ? 4 ?[ 2 - 6 ] mmHg ? LVOT VTI ? 22.9 ? [ 20.0 - 30.0 ] cm ? MV Peak PG ? 4 ?[ 1 - 10 ] mmHg ? MV Mean PG ? 1 ?[ <= 5 ] mmHg ? MV E Peak Rommel ?0.4 ?[ 0.6 - 1.3 ] m/s ? MV A Peak Rommel ?0.9 ?[ 1.0 - 1.2 ] m/s ? MV PHT ? 96.1 ? [ 20.0 - 100.0 ] ms ? MV Decel Time ?200.0 ?[ 104.0 - 258.0 ] ms ? MVA PHT ?2.3 ?[ 2.0 - 4.0 ] ms ? MV E/A Ratio ? 0.4 ? TR Peak Rommel ?2.6 ?[ 1.0 - 2.8 ] m/s ? TR Peak PG ? 26 ? mmHg ? RVSP ? 29.2 ? [ 10.0 - 36.0 ] mmHg ? RA Pressure ?3.0 ?mmHg ? PV Peak Rommel ?0.9 ?[ 0.4 - 0.8 ] m/s ? PV Peak PG ? 3 ?mmHg ? Lat E` Rommel ? 0.04 ? [ 0.10 - 0.15 ] m/s ? Sept E' Rommel ?0.05 ? [ 0.08 - 0.15 ] m/s ? E/E` ? 10.00 ? RV S' ?0.11 ? m/s ? - Findings: BP: Blood pressure: 140/76 mmHg. Left Ventricle: Ejection Fraction is measured at (Simpsons) 53 %. Diastolic indices overall most consistent with Grade II diastolic dysfunction (impaired myocardial relaxation with elevated filling pressures). Mild enlargement of left ventricle. Mild concentric left ventricular hypertrophy. Moderate apical and apical septal hypokinesis. Technically difficult. Contrast was used. Right Ventricle: Normal right ventricular systolic function. Right ventricular chamber size upper limits of normal. Left Atrium: There is moderate enlargement of the left atrium. Right Atrium: The right atrium is normal in size. Atrial Septum: Thin and hypermobile atrial septum. Mitral Valve: The anterior mitral valve leaflets appear mildly thickened. Mitral regurgitation, probably moderate. Aortic Valve: Probable tricuspid aortic valve, although not all cusps are well visualized. Aortic cusps appear moderately sclerotic. Mild aortic valve regurgitation. Tricuspid Valve: Grossly normal appearing tricuspid valve. Mild tricuspid regurgitation. Normal right ventricular systolic pressure. Pulmonic Valve: Pulmonic valve not well visualized. Pericardium: No significant pericardial effusion. Aortic Root and Aorta: Atherosclerotic aortic root. Aortic Arch: The aortic arch is poorly visualized. IVC: The IVC is not well visualized. Conclusions: 1. Ejection Fraction is measured at [...] tricuspid regurgitation. Normal right ventricular systolic pressure. Electronically Signed By: Guzman Boykin MD, [facility] 2019-05-11 07:00:05 CDT CC: CC: Procedure Note Guzman Boykin MD - 05/11/2019 [facility] Cardiac Testing Center [facility] [place] [address] ECHOCARDIOGRAM Patient Name: DREW NEWMAN GENEPatient ID: [id number] : [id number] Date: 05/10/2019 9:01:58 AM Gender: MAccession #: [id number] Tech: MACRef.Provider: GUZMAN BOYKIN Height(Cm): 178BSA: 2.32 Weight(Kg): 109.3Order Provider: GUZMAN BOYKIN - Procedures: Echocardiographic Report: Transthoracic Echocardiogram with 2D, M-Mode, Spectral and Color FlowDoppler examination and administration of intravenous contrast. Indications: Coronary artery disease, [place] vessel, and Hypertension. Measurements: 2D/M Mode Doppler Measurement Value Normal Range MeasurementValue Normal Range IVSd 2D 1.23 [ 0.60 - 0.90 ] cm AV Peak Vel2.0 [ 1.0 - 1.7 ] m/s LVIDd 2D 5.55 [ 4.20 - 5.90 ] cm AV Peak PG 16[ 2 - 9 ] mmHg LVIDs 2D 4.15 [ 2.30 - 3.90 ] cm AV Mean PG 9[ 2 - 4 ] mmHg LVPWd 2D 1.42 [ 0.60 - 1.00 ] cm AV VTI44.0 cm LA Volume Index 48.00 [ 16.00 - 28.00 ] ml/m2 YONY VTI1.9 [ 2.0 - 4.0 ] cm2 LVOT Peak Vel1.01 [ 0.70 - 1.10 ] m/s LVOT Diam2.2 [ 1.7 - 2.1 ] cm LVOT Peak PG 4[ 2 - 6 ] mmHg LVOT VTI22.9 [ 20.0 - 30.0 ] cm MV Peak PG 4[ 1 - 10 ] mmHg MV Mean PG 1[ <= 5 ] mmHg MV E Peak Vel0.4 [ 0.6 - 1.3 ] m/s MV A Peak Vel0.9 [ 1.0 - 1.2 ] m/s MV PHT96.1 [ 20.0 - 100.0 ] ms MV Decel Qoby201.0 [ 104.0 - 258.0 ] ms MVA PHT2.3 [ 2.0 - 4.0 ] ms MV E/A Ratio0.4 TR Peak Vel2.6 [ 1.0 - 2.8 ] m/s TR Peak PG 26mmHg RVSP29.2 [ 10.0 - 36.0 ] mmHg RA Pressure3.0 mmHg PV Peak Vel0.9 [ 0.4 - 0.8 ] m/s PV Peak PG 3mmHg Lat E` Vel0.04 [ 0.10 - 0.15 ] m/s Sept E' Vel0.05 [ 0.08 - 0.15 ] m/s E/E`10.00 RV S'0.11 m/s - Findings: BP: Blood pressure: 140/76 mmHg. Left Ventricle: Ejection Fraction is measured at (Simpsons) 53 %. Diastolic indicesoverall most consistent with Grade II diastolic dysfunction (impaired myocardialrelaxation with elevated filling pressures). Mild enlargement of left ventricle. Mildconcentric left ventricular hypertrophy. Moderate apical and apical septal hypokinesis.Technically difficult. Contrast was used. Right Ventricle: Normal right ventricular systolic function. Right ventricular chamber sizeupper limits of normal. Left Atrium: There is moderate enlargement of the left atrium. Right Atrium: The right atrium is normal in size. Atrial Septum: Thin and hypermobile atrial septum. Mitral Valve: The anterior mitral valve leaflets appear mildly thickened. Mitralregurgitation, probably moderate. Aortic Valve: Probable tricuspid aortic valve, although not all cusps are wellvisualized. Aortic cusps appear moderately sclerotic. Mild aortic valve regurgitation. Tricuspid Valve: Grossly normal appearing tricuspid valve. Mild tricuspid regurgitation.Normal right ventricular systolic pressure. Pulmonic Valve: Pulmonic valve not well visualized. Pericardium: No significant pericardial effusion. Aortic Root and Aorta: Atherosclerotic aortic root. Aortic Arch: The aortic arch is poorly visualized. IVC: The IVC is not well visualized. Conclusions: 1. Ejection Fraction is measured at (Simpsons) 53 %. Diastolic indicesoverall most consistent with Grade II diastolic dysfunction (impaired myocardialrelaxation with elevated filling pressures). Mild enlargement of left ventricle. Mildconcentric left ventricular hypertrophy. Moderate apical and apical septal hypokinesis.Technically difficult. Contrast was used. 2. There is moderate enlargement of the left atrium. 3. The anterior mitral valve leaflets appear mildly thickened. Mitralregurgitation, probably moderate. 4. Probable tricuspid aortic valve, although not all cusps are wellvisualized. Aortic cusps appear moderately sclerotic. Mild aortic valve regurgitation. 5. Grossly normal appearing tricuspid valve. Mild tricuspid regurgitation.Normal right ventricular systolic pressure. Electronically Signed By: Guzman Boykin MD, [facility] 2019-05-11 07:00:05 CDT CC: CC: Guzman Boykin MD CV ECHO PROCEDURES Final Res ult documented in this encounter Visit Diagnoses Diagnosis Atherosclerosis of [place] coronary artery of [place] heart without angina pectoris Essential hypertension Unspecified [...] Date Dose Rate Site perflutren protein-a (OPTISON) injection 2 mL 2 mL, intravenous, Once, On Lisa 05/10/19 at 1030, For 1 dose, Pre-Procedure (CV), 0.5 mL as needed. May repeat in increments of 0.5 mL up to 5 mL cumulatively in 10 minutes. (maximum total dose 8.7 mL in any one patient study), Indications: Echocardiography Imaging AdjunctIndications:Echocardiography Imaging Adjunct Given 05/10/2019 9:55 AM CDT 2 mL documented in this encounter Orders Medications Ordered That Addy ht Not Have Been Administered Count Last Ordered Date First Ordered Date perflutren protein-a (OPTISO N) injection 2 mL 1 05/10/2019 documented in this encounter Care Teams Oncology Technician Relationship Specialty Start Date End Date Say Low MD [address] [place] [address] PCP - General 02/15/17 documented as of this encounter
--- OUTSIDE RECORDS SUMMARY | 2024-09-22 19:06 | XMS_ITS | Encounter Summary ---
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 Procedures NM MPI SPECT (Rest and/or Stress) Multiple Studies Guzman Boykin MD Phone: tel: fax: [facility] [address] [place] [address] Referral ID Status Reason Start Date Expiration Date Visits Re quested Visits Authorized [id number] Closed 05/01/2019 11/09/2020 5 5 Encounter Details Date Type Department Care Team (Late st Contact Info) Description 05/10/2019 10:45 AM CDT Ancillary Procedure [facility] OP Cardiac Testing [address] [facility] [address] [place] [address] Guzman Boykin MD [address] [facility] [address] [place] [address] Social History Tobacco Use Types Packs/Day Years Used Date Smoking Tobacco: Former Cigarettes 3 22.6 1 961 - 04/29/1983 Smokeless Tobacco: Never Alcohol Use Standard Drinks/Week Comments No 0 (1 standard drink = 0.6 oz pur e alcohol) Sex and Gender Information Value Date Recorded Sex Assigned at Not on file 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 Gender Identity Male 07/10/2021 8:31 AM CDT Sexual Orientation Straight 06/12/2021 8: 44 AM CDT documented as of this encounter Plan of Treatment Not on file documented as of this encounter Procedures Procedure Name Priority Date/Time Associated Diagnosis Comments NM MPI SPECT (REST AND/OR STRESS) MULTIPLE STUDIES Schedule Routine, Read Routine (OP Routine) 05/10/2019 11:24 AM CDT Atherosclerosis of [place] coronary artery of [place] heart without angina pectoris Essential hypertension Mixed hyperlipidemia AV block Pacemaker 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 [address] [place] [id number] MPI Imaging Report Patient Name: DREW NEWMAN GENE : 1940 Study Date: 05/10/2019 9:08:55 AM Gender: M Tech: SP Ref.Provider: GUZMAN BOYKIN Height(Cm): BSA: Weight(Kg): Heart Rate: 122 Order Provider: GUZMAN BOYKIN Procedures: Pharmacologic SPECT Report.: Myocardial perfusion imaging with Sestamibi SPECT at rest and post regadenoson (Lexiscan) infusion. Indications: Coronary Artery Disease, Pre-Op Clearance, and Pacemaker, HTN, AV block, FL. Findings: Procedure Data: One day rest/stress protocol [...] procedure. Electronically Signed By: Guzman Boykin MD, [facility] 2019-05-11 07:09:31 CDT CC: CC: Procedure Note Guzman Boykin MD - 05/11/[address] [facility] [address] [place] [id number] MPI Imaging Report Patient Name: DREW NEWMAN GENEPatient ID: [id number] : [id number] Date: 05/10/2019 9:08:55 AM Gender: MAccession #: [id number] Tech: [facility].Provider: GUZMAN BOYKIN Height(Cm): BSA: Weight(Kg): Heart Rate: 122 Order Provider: GUZMAN BOYKIN Procedures: Pharmacologic SPECT Report.: Myocardial perfusion imaging with Sestamibi SPECT at rest and postregadenoson (Lexiscan) infusion. Indications: Coronary Artery Disease, Pre-Op Clearance, and Pacemaker, HTN, AV block,FL. Findings: Procedure Data: One day rest/stress protocol [...] procedure. Electronically Signed By: Guzman Boykin MD, [facility] 2019-05-11 07:09:31 CDT CC: CC: Guzman Boykin MD IMG NM PROCEDURES Final Resu lt documented in this encounter Visit Diagnoses Not on filedocumented in this encounter Care Teams Home Fire Alarm Installer Relationship Specialty Start Date End Date Say Low MD [address] [facility] [address] [facility] [address] [place] [address] PCP - General 02/15/17 documented as of this encounter
--- OUTSIDE RECORDS SUMMARY | 2024-09-22 19:06 | XMS_ITS | Encounter Summary ---
Author Organization [facility] Healthcare Address [address] [place] [address] Care Team Providers Care Runway Model Name Role Phone Say Low MD Primary Care Provider [phone] Encounter Details Date Type Department Care Team (Latest Contact Info) Description 01/18/2019 Telephone Urology Sheets, Anca Henley RN Social History Tobacco Use Types Packs/Day Years Used Date Smoking Tobacco: Former Cigarettes 3 22.6 1 961 - 04/29/1983 Smokeless Tobacco: Never Alcohol Use Standard Drinks/Week Comments No 0 (1 standard drink = 0.6 oz pur e alcohol) Sex and Gender Information Value Date Recorded Sex Assigned at Not on file 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 I spoke to pt. Pt is feeling great. Still having some burning discomfort with urination. Other thanthat, he feels great. No N/V or fevers. He is drinking plenty of fluids. His urine is red but clearing up. Reminded pt that he has a stent in place and he will see hematuria until it is removed. Pt has an appointment on 01/31/19 for stent removal. Advised pt to call back if any other issues arises. Pt verbalized understanding. Josue RN, BSN documented in this encounter Plan of Treatment Not on file documented as of this encounter Visit Diagnoses Not on filedocumented in this encounter Care Teams Runway Model Relationship Specialty Start Date End Date Say Low MD [address] [facility] [address] [place] [address] PCP - General 02/15/17 documented as of this encounter
--- OUTSIDE RECORDS SUMMARY | 2024-09-22 19:06 | XMS_ITS | Encounter Summary ---
Author Organization [facility] Address [address] [place] [address] Care Team Providers Care Shot Man Name Role Phone Say Low MD Primary Care Provider [phone] Reason for Visit * Reason Comments Fatigue Follow-up Encounter Details Date Type Department Care Team (Latest Contact Info) Description 02/22/2020 2:15 PM CDT Office Visit [facility] Cardiology [address] [place] [address] Shiva Anne MD [facility] [facility] [address] [place] [address] Mixed hyperlipidemia (Primary Dx); Pacemaker; Hx of CABG; 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); AV node dysfunction Social History Tobacco Use Types Packs/Day Years Used Date Smoking Tobacco: Former Cigarettes 3 22.6 1 961 - 04/29/1983 Smokeless Tobacco: Never Alcohol Use Standard Drinks/Week Comments No 0 (1 standard drink = 0.6 oz pur e alcohol) Sex and Gender Information Value Date Recorded Sex Assigned at Not on file 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 Gender Identity Male 07/10/2021 8:31 AM CDT Sexual Orientation Straight 06/12/2021 8: 44 AM CDT documented as of this encounter Last Filed Vital Signs Vital Sign Reading Time Taken Comments Blood Pressure 122/62 02/22/2020 2:10 PM CDT Pulse 65 02/22/2020 2:10 PM CDT Temperature - - Respiratory Rate - - Oxygen Saturation 95% 02/22/2020 2:10 PM CDT Inhaled Oxygen Concentration - - Weight 114.3 kg (252 lb) 02/22/2020 2:10 PM CDT Height 177.8 cm (5' 10 ) 02/22/2020 2:10 PM CDT Body Mass Index 36.16 02/22/2020 2:10 PM CDT documented in this encounter Progress Notes * Shiva Anne MD - 02/22/2020 2:15 PM CDT Images from the original note were not included. [facility] Cardiology [address] [place] [address], [address] [place], [place], [address] Cardiology Electrophysiology Niko Echevarria, MD Wayne Davis,, MD Arslan Alcala, MD Miles Lenz, MD Patrick Avalos, MD Patrick Taylor, MD Esther Miller, ELIEZER Manzo, DO Elgin Bowles, MD Elia Jett, MD Shanda Edge, MD Gilson Eden, MD Kale Faith, DO Shiva Anne, MD Carolann Montesinos, LOSS MITIGATION SPECIALIST Kimmy Power, LOSS MITIGATION SPECIALIST Ximoara Millan, LOSS MITIGATION SPECIALIST Patient Name: Drew Pak Provider: Shiva Anne MD : 1940 Date of Service: 02/22/2020 Referring: Maranda CHIEF COMPLAINT: Fatigue and Follow-up HISTORY OF PRESENT ILLNESS: 79 y.o. male with CABG and valvular heart disease. Referred by PCP for exertional ???fatigue?? . Patient recently had back surgery at [facility] over summer 2018 He is feels that much of his symptoms are due to ongoing worsening low back pain He is due to have repeat lumbar MRI and discuss with his surgeon however this has been delayed due to COVID-19. He says repeatedly that he has been told that the [employer] device reps are not coming to [facility] at this time to program his device for the MRI. I spent greater than 20 minutes discussing his symptoms with trying to figure out what this exertional ???fatigue felt like in order to determine whether not there was any possible underlying cardiac etiology. EKG showed paced rhythm. Patient has underlying second-degree AV block He had thorough cardiac evaluation in May prior to his surgery which was only 9 months ago. Which showed reassuring echocardiogram and MPI stress test. I reviewed this patient's Allergies and Current Medication List and updated as needed in the medical record. I reviewed this patient's Past Medical History, Social History, and Family History and updated as needed in the medical record. MEDICATIONS: Outpatient Encounter Medications as of 02/22/2020 Medication Sig Dispense Refill ??? allopurinol (ZYLOPRIM) [...] by mouth nightly ) 30 0 ??? [id number]-lycopen-lutein (CENTRUM SILVER) 0.4-300-250 mg-mcg-mcg tablet 1 tab [...] every morning ) 0 0 ??? [DISCONTINUED] HYDROcodone-acetaminophen (NORCO) 5-325 mg per tablet Take 1 tablet by mouth every 6 (six) hours as needed for pain 5 tablet 0 ??? [DISCONTINUED] omeprazole (PriLOSEC) 20 mg capsule take 1 capsule by oral route every day before a meal (Patient taking differently: Take 20 mg by mouth every morning ) 0 0 ??? [DISCONTINUED] sertraline (ZOLOFT) 50 mg tablet Take 50 mg by mouth every morning 4 ??? [DISCONTINUED] tiotropium (SPIRIVA WITH HANDIHALER) 18 mcg per inhalation capsule inhale 1 capsule by inhalation route every day (Patient taking differently: Place 18 mcg into inhaler and inhale every morning ) 0 0 Facility-Administered Encounter Medications as of 02/22/2020 Medication Dose Route Frequency Provider Last Rate Last Dose ??? sodium chloride 0.9% flush 0.5-20 mL 0.5-20 mL intra-catheter Q8H INGRID Patrick Taylor MD ??? sodium chloride 0.9% flush 0.5-20 mL 0.5-20 mL intra-catheter PRN Patrick Taylor MD The following pertinent medical data was personally reviewed by myself this visit: Past Medical Mecords: Reviewed past medical records Imaging and Diagnostic Tests: Reviewed diagnostic testing as noted below Laboratory Tests: Reviewed lipids as noted below CARDIAC HISTORY: He had silent ischemia prior to CABG in 2003. He had a PPM in 2017. Second [...] for his surgical procedure. REVIEW OF SYSTEMS Review of Systems Constitution: Positive for malaise/fatigue. Negative for decreased appetite, fever, weight gain andweight loss. HENT: Negative. Eyes: Negative for visual disturbance. Cardiovascular: Negative for chest pain, dyspnea on exertion, irregular heartbeat, leg swelling, near-syncope, orthopnea, palpitations, paroxysmal nocturnal dyspnea and syncope. Respiratory: Negative for cough, shortness of breath and sleep disturbances due to breathing. Endocrine: Negative for cold intolerance and heat intolerance. Hematologic/Lymphatic: Negative for bleeding problem. Does not bruise/bleed easily. Skin: Negative for dry skin, itching, poor wound healing and rash. Musculoskeletal: Positive for arthritis, back pain and stiffness. Negative for falls, joint pain and myalgias. Gastrointestinal: Negative for bloating, abdominal pain, melena, nausea and vomiting. Genitourinary: Negative. Neurological: Negative for excessive daytime sleepiness, dizziness, headaches, light-headedness, vertigo and weakness. Psychiatric/Behavioral: Negative for altered mental status and substance abuse. The patient does not have insomnia and is not nervous/anxious. Allergic/Immunologic: Negative for environmental allergies. PHYSICAL EXAM: BP 122/62 (BP Location: Right arm, Patient Position: Sitting) Pulse 65 Ht 177.8 cm (5' 10 ) Wt 114.3 kg (252 lb) SpO2 95% BMI 36.16 kg/m?? Physical Exam Constitutional: He is oriented to person, place, and time. He appears well- developed and well-nourished. No distress. HENT: Head: Normocephalic and atraumatic. Eyes: Conjunctivae are normal. Neck: Neck supple. No JVD present. Cardiovascular: Normal rate, regular rhythm and normal heart sounds. Exam reveals no gallop and no friction rub. No murmur heard. Pulmonary/Chest: Effort normal and breath sounds normal. No respiratory distress. He has no rales. Abdominal: Soft. He exhibits no distension. There is no abdominal tenderness. Musculoskeletal: General: No tenderness, deformity or edema. Neurological: He is alert and oriented to person, place, and time. Skin: No rash noted. No erythema. Psychiatric: He has a normal mood and affect. Vitals reviewed. 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 I did check, the [employer] wraps are are coming to [facility]. So I think he should be able to get his MRI done. AV node dysfunction Assessment & Plan: Status post pacemaker placement, [employer] device for second-degree AV block Normal functioning device Ongoing pacemaker checks with Dr. Ryan Anne MD [facility] Tax Commissioner documented in this encounter Miscellaneous Notes * Assessment & Plan Note - Shiva Anne MD - 02/22/2020 6:52 PM CDT Associated Problem(s): Coronary artery disease involving coronary bypass graft of ho-chunk heart withangina pectoris (CMS/HCC) (HCC) History of CABG Now with exertional dyspnea [...] at that time. I did check, the [employer] wraps are are coming to [facility]. So I think he should be able to get his MRI done. * Assessment & Plan Note - Shiva Anne MD - 02/22/2020 6:52 PM CDT Associated Problem(s): AV node dysfunction Status post pacemaker placement, [employer] device for second-degree AV block Normal functioning device Ongoing pacemaker checks with Dr. Davis documented in this encounter Plan of Treatment Not on file documented as of this encounter Procedures Procedure Name Priority Date/Time Associated Diagnosis Comments POCT LIPID PANEL Routine 02/22/2020 2:55 PM CDT Mixed hyperlipidemia ECG 12-LEAD Routine 02/22/2020 Pacemaker documented in this encounter Results * POCT lipid panel (02/22/2020 2:55 PM CDT) Cholesterol, POC 108 L - H mg/dL HDL, POC 30 L - H mg/dL Triglycerides, POC 154 L - H mg/dL LDL Cholesterol POC 47 L - H mg/dL Chol/HDL Ratio, POC 3.6 L - H Non-HDL Cholesterol, POC 78 L - H mg/dL Cholesterol Total, POC 108 L - H mg/dL Capillary blood 02/22/2020 2 :55 PM CDT us Shiva Anne MD POINT OF CARE TEST ORDKelly MCCRAY Final Result * ECG 12 lead (02/22/2020) us Shiva Anne MD ECG ORDERABLES Final R esult documented in this encounter Visit Diagnoses Diagnosis Mixed hyperlipidemia- Primary Pacemaker Cardiac pacemaker in situ Hx of CABG Postsurgical aortocoronary bypass status 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) (HCC) AV node dysfunction documented in this encounter Discontinued Medications Medication Sig Discontinue Reason Start Date End Da te tiotropium (SPIRIVA WITH HANDIHALER) 18 mcg per inhalation capsule inhale 1 capsule by inhalation route every day Therapy completed 09/10/2015 02/22/2020 sertraline (ZOLOFT) 50 mg tablet Take 50 mg by mouth every morning Therapy completed 11/13/2018 02/22/2020 HYDROcodone-acetaminop hen (NORCO) 5-325 mg per tabletIndications:Pain Take 1 tablet by mouth every 6 (six) hours as needed for pain Therapy completed 01/17/2019 02/22/2020 omeprazole (PriLOSEC) 20 mg capsule take 1 capsule by oral route every day before a meal Formulary change 09/10/2015 02/22/2020 documented as of this encounter Historical Medications * This list may reflect changes made after this encounter. omeprazole (PriLOSEC) 40 mg capsule Take 1 capsule (40 mg total) by mouth daily added in this encounter Care Teams Shot Man Relationship Specialty Start Date End Date Say Low MD [address] [place] [address] [address] [place] [id number] PCP - General 02/15/17 documented as of this encounter
--- OUTSIDE RECORDS SUMMARY | 2024-09-22 19:06 | XMS_ITS | Encounter Summary ---
Author Organization [facility] Care Team Providers Care Trimming Inspector Name Role Phone Say Low MD Primary Care Provider [phone] Encounter Details Date Type Department Care Team (Latest Contact Info) Description 12/19/2019 Travel Social History Tobacco Use Types Packs/Day Years Used Date Smoking Tobacco: Former Cigarettes 3 22.6 1 961 - 04/29/1983 Smokeless Tobacco: Never Alcohol Use Standard Drinks/Week Comments No 0 (1 standard drink = 0.6 oz pur e alcohol) Sex and Gender Information Value Date Recorded Sex Assigned at Not on file 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 No / Unsure 12/19/2019 9:20 AM CDT documented as of this encounter Plan of Treatment Not on file documented as of this encounter Visit Diagnoses Not on filedocumented in this encounter Care Teams Trimming Inspector Relationship Specialty Start Date End Date Say Low MD [address] [place] [address] PCP - General 02/15/17 documented as of this encounter
--- OUTSIDE RECORDS SUMMARY | 2024-09-22 19:06 | XMS_ITS | Encounter Summary ---
Author Organization [facility] Address [address] [place] [address] Care Team Providers Care Van Driver Name Role Phone Say Low MD Primary Care Provider [phone] Reason for Referral * Diagnostic Imaging (Routine) - Closed Specialty Diagnoses / Procedures Referred By Yary silveira Referred To Contact Diagnoses Nephrolithiasis Procedures US Retroperitoneal Complete Elvin Carrillo NP Phone: tel: fax: [address] [phone] Referral ID Status Reason Start Date Expiration Date Visits Re quested Visits Authorized [id number] Closed 01/31/2019 08/11/2020 1 1 Reason for Visit * Diagnostic Imaging (Routine) - Closed Specialty Diagnoses / Procedures Referred By Yary silveira Referred To Contact Diagnoses Nephrolithiasis Procedures US Retroperitoneal Complete Elvin Carrillo NP Phone: tel: fax: [address] [phone] Referral ID Status Reason Start Date Expiration Date Visits Re quested Visits Authorized [id number] Closed 01/31/2019 08/11/2020 1 1 Encounter Details Date Type Department Care Team (Latest Contact Info) Description 07/03/2019 1:18 PM CDT - 07/03/2019 11:59 PM CDT Hospital Encounter [facility] (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 120 tablet 11 07/06/2018 9 allopurinol (ZYLOPRIM) 100 mg tablet take 1.5 tablet by oral route every day 0 0 09/10/2015 0 amLODIPine (NORVASC) 5 mg tablet take 1 tablet by oral route every day 0 0 09/23/2016 1 aspirin 81 mg tablet take 1 tablet by oral route every day 0 0 11/17/2015 1 carvedilol (COREG) 12.5 mg tablet TAKE 1 TABLET(12.5 MG) BY MOUTH TWICE DAILY WITH MEALS 180 tablet 04/16/[address] (VOLTAREN) 75 mg EC tablet take 1 tablet by oral route every day 0 0 09/10/2015 1 furosemide (LASIX) 20 mg tablet take 1 tablet by oral route every day 30 0 09/10/2015 0 HYDROcodone-acet aminophen (NORCO) 5-325 mg per tabletIndication s:Pain Take 1 tablet by mouth every 6 (six) hours as needed for pain 5 tablet 01/17/2019 0 losartan (COZAAR) 100 mg tablet take 1 tablet by oral route every day 30 0 11/17/2015 4 [id number]- lycopen-lutein (CENTRUM SILVER) 0.4-300-250 mg-mcg-mcg tablet 1 tab daily 0 0 09/10/2015 2 omega-3 fatty acids-fish oil (FISH OIL) 300-1,000 mg capsule 1 capsule daily 0 0 09/10/2015 2 omeprazole (PriLOSEC) 20 mg capsule take 1 capsule by oral route every day before a meal 0 0 09/10/2015 0 sertraline (ZOLOFT) 50 mg tablet Take 50 mg by mouth every morning 4 11/13/2018 0 simvastatin (ZOCOR) 20 mg tablet take 1 tablet by oral route every day at bedtime 0 0 09/10/2015 2 tiotropium (SPIRIVA WITH HANDIHALER) 18 mcg per inhalation capsule inhale 1 capsule by inhalation route every day 0 0 09/10/2015 0 documented as of this encounter Discharge Disposition Disposition Code Departure Means Destination Discharge to home or self care documented in this encounter Plan of Treatment Not on file documented as of this encounter Procedures Procedure Name Priority Date/Time Associated Diagnosis Comments US RETROPERITONEAL COMPLETE Schedule Routine, Read Routine (OP Routine) 07/03/2019 3:00 PM CDT Nephrolithiasis documented in this encounter Results * US Retroperitoneal Complete (07/03/2019 3:00 PM CDT) Anatomical Region Laterality Modality Abdomen N/A Ultrasound 07/03/2019 3:46 PM CDT Impressions 07/03/2019 3:46 PM CDT 1. ??Small intrarenal stones. ??No hydronephrosis. Electronically signed by: Wojciech Williamson M.D. Narrative 07/03/2019 3:46 PM CDT EXAMINATION: COMPLETE RENAL SONOGRAM HISTORY: ??Nephrolithiasis. ??Status post laser lithotripsy and extraction of a left ureteral and left intrarenal stones. COMPARISON: ??CT date 01/04/2019. FINDINGS: ?? Kidneys: The echogenicity of both kidneys is normal. The kidneys are normal in size. ??The right kidney measures 12.9 cm in length, and the left, 13.5 cm in length. There is no hydronephrosis in either kidney. There are 2 areas of twinkle artifact in the lower pole of the right kidney, corresponding to stones seen on the prior examination. ??One of the 2 has a associated echogenic focus that measures 5 mm. Twinkle artifact is seen in the lower pole of the left kidney without an associated grayscale abnormality likely indicating a tiny stone or Fredi's plaques. ??There is a 5.6 cm cyst in the upper pole of the left kidney. Bladder: The urinary bladder is normal Procedure Note Wojciech Williamson MD - 07/03/2019 EXAMINATION: COMPLETE RENAL SONOGRAM HISTORY: Nephrolithiasis. Status post laser lithotripsy and extraction of a left ureteral and left intrarenal stones. COMPARISON: CT date 01/04/2019. FINDINGS: Kidneys: The echogenicity of both kidneys is normal. The kidneys are normal in size. The right kidney measures 12.9 cm in length, and the left, 13.5 cm in length. There is no hydronephrosis in either kidney. There are 2 areas of twinkle artifact [...] the upper pole of the left kidney. Bladder: The urinary bladder is normal IMPRESSION: 1. Small intrarenal stones. No hydronephrosis. Electronically signed by: Wojciech Williamson M.D. Elvin Carrillo NP IMG US PROCEDURES Final Result documented in this encounter Visit Diagnoses Diagnosis Nephrolithiasis Calculus of kidney documented in this encounter Care Teams Van Driver Relationship Specialty Start Date End Date Say Low MD [address] [facility] [address] MED[address] [place], [place] [id number] PCP - General 02/15/17 documented as of this encounter
--- OUTSIDE RECORDS SUMMARY | 2024-09-22 19:06 | XMS_ITS | Encounter Summary ---
Author Organization [facility] Address [address] [place] [address] Care Team Providers Care Grinder Watch Parts Name Role Phone Say Low MD Primary Care Provider [phone] Reason for Visit * (Routine) - Canceled Specialty Diagnoses / Procedures Referred By Yary silveira Referred To Contact Diagnoses Randall II Procedures DEVICE CHECK - REMOTE Wayne Davis MD Phone: tel: fax: [facility] Referral ID Status Reason Start Date Expiration Date V isits Requested Visits Authorized [id number] Canceled 01/17/2019 07/28/2020 12 12 Encounter Details Date Type Department Care Team (Late st Contact Info) Description 02/12/2019 9:00 AM CDT Ancillary Procedure Arrhythmia Center [address] [place] [address] Mobitz II Social History Tobacco Use Types Packs/Day Years Used Date Smoking Tobacco: Former Cigarettes 3 22.6 1 961 - 04/29/1983 Smokeless Tobacco: Never Alcohol Use Standard Drinks/Week Comments No 0 (1 standard drink = 0.6 oz pur e alcohol) Sex and Gender Information Value Date Recorded Sex Assigned at Not on file 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 ??They had a routine ?? remote transmission on 02/12/2019. 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 Interrogation of the patient's device demonstrates the following: Presenting EGM: ??A paced V paced @ 6 0 bpm Lead Measurements Right Atrium Right Ventricle Sensitivity (mV) 5.9 mV Greater than 25 mV Impedence (Ohms) 483 ohms 482 ohms Pace Threshold Not done V @ ??ms Not done V @ ??ms Pacing % 11 % 100 % Battery Status: ??7.0 years to SOFI Episodes last 90 days/Comments: AF [place] less than 1 %, there were a total episodes of AT/AF all lasting less than 1 minute. NORMAL DEVICE FUNCTION PROGRAMMED Anti-coagulant(s): ??Aspirin 81 mg daily Anti-arrhythmic(s): ??Norvasc 5 mg daily, Coreg 12.5 mg twice daily Plan: 1) normal [employer] Pacemaker evaluation 2) [employer] remote transmission scheduled in 3 months. 3) Letter sent with transmission results Manuel Sullivan R.N. us Wayne Davis MD [facility] PRO CEDURES Final Result documented in this encounter Visit Diagnoses Diagnosis Mobitz II Mobitz (type) II atrioventricular block documented in this encounter Care Teams Grinder Watch Parts Relationship Specialty Start Date End Date Say Low MD [address] [place] [address] PCP - General 02/15/17 documented as of this encounter
--- OUTSIDE RECORDS SUMMARY | 2024-09-22 19:06 | XMS_ITS | Encounter Summary ---
Author Organization [facility] Address [address] [address] Care Team Providers Care Auricular Detoxification Specialist Name Role Phone Say Low MD Primary Care Provider [phone] Reason for Referral * (Routine) - Closed Specialty Diagnoses / Procedures Referred By Contac t Referred To Contact Diagnoses Mobitz II Procedures DEVICE CHECK - REMOTE Wayne Davis MD Phone: tel: fax: [facility] Referral ID Status Reason Start Date Expiration Date Visits Re quested Visits Authorized [id number] Closed 05/20/2020 06/19/2021 1 1 * (Routine) - Closed Specialty Diagnoses / Procedures Referred By Contac t Referred To Contact Diagnoses Mobitz II Procedures DEVICE CHECK - REMOTE Wayne Davis MD Phone: tel: fax: [facility] Referral ID Status Reason Start Date Expiration Date Visits Re quested Visits Authorized [id number] Closed 05/20/2020 06/19/2021 1 1 * (Routine) - Closed Specialty Diagnoses / Procedures Referred By Contac t Referred To Contact Diagnoses Mobitz II Procedures DEVICE CHECK - REMOTE Wayne Davis MD Phone: tel: fax: [facility] Referral ID Status Reason Start Date Expiration Date Visits Re quested Visits Authorized [id number] Closed 05/20/2020 06/19/2021 1 1 * Cardiology (Routine) - Closed Specialty Diagnoses / Procedures Referred By Contac t Referred To Contact Diagnoses Mobitz II Procedures DEVICE CHECK - REMOTE Wayne Davis MD Phone: tel: fax: [facility] Referral ID Status Reason Start Date Expiration Date Visits Re quested Visits Authorized [id number] Closed 05/20/2020 07/02/2021 1 1 Encounter Details Date Type Department Care Team (Late st Contact Info) Description 05/20/2020 Orders Only Arrhythmia Center [address] [facility] [address] [place] [address] Wayne Davis MD [address] [facility] [address] [place] [address] Mobitz II (Primary Dx) Social History Tobacco Use Types Packs/Day Years Used Date Smoking Tobacco: Former Cigarettes 3 22.6 1 961 - 04/29/1983 Smokeless Tobacco: Never Alcohol Use Standard Drinks/Week Comments No 0 (1 standard drink = 0.6 oz pur e alcohol) Sex and Gender Information Value Date Recorded Sex Assigned at Not on file 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 ??They had a routine [employer] remote transmission on 06/29/2021. Device implant [...] to SOFI Episodes last 90 days/Comments: AF [place] 100 % There were no new ventricular events noted on today's remote interrogation. NORMAL DEVICE FUNCTION PROGRAMMED Anti-coagulant(s): ??Plavix 75 mg, Xarelto 20 mg Anti-arrhythmic(s): ??Coreg 25 mg Plan: 1) normal [employer] Pacemaker evaluation 2) [employer] remote transmission scheduled in 3 months. Bhavani White R.N. us Wayne Davis MD CV CARDIAC SERVICES PRO CEDURES Final Result * DEVICE CHECK - REMOTE (03/17/2021 2:40 PM CDT) Anatomical Region Laterality Modality Other Narrative 03/18/2021 3:35 PM CDT This patient received a [employer] Pacemaker. ??They had a routine [employer] remote transmission on 03/16/2021. Device implant [...] to SOFI Episodes last 90 days/Comments: AF [place] patient has been in atrial fibrillation 100% of the time since February 24, 2021. Patient has an upcoming appointment with Dr. Coker to discuss oral AC as the patient is currently not on any. NORMAL DEVICE FUNCTION PROGRAMMED Anti-coagulant(s): ??Aspirin 81 mg Anti-arrhythmic(s): ??Coreg 12.5 mg twice daily, Norvasc 5 mg Plan: 1) normal [employer] Pacemaker evaluation with new onset atrial fibrillation noted. 2) [employer] remote transmission scheduled in 3 months. Bhavani White R.N. Wayne Davis MD CV CARDIAC SERVICES PRO CEDURES Final Result * DEVICE CHECK - REMOTE (12/08/2020 11:03 AM SADDLE AND HARNESS MAKER) Anatomical Region Laterality Modality Other Narrative 12/12/2020 3:33 PM SADDLE AND HARNESS MAKER This patient received a [employer] Pacemaker. ??They had a routine [employer] remote transmission on 12/08/2020. Device implant [...] to SOFI Episodes last 90 days/Comments: AF [place] <0.1 %, longest duration 3 seconds. No new ventricular events noted. NORMAL DEVICE FUNCTION PROGRAMMED Anti-coagulant(s): ASA 81mg Anti-arrhythmic(s): Coreg 12.5 mg Plan: 1) Normal [employer] Pacemaker evaluation 2) [employer] remote transmission scheduled in 3 months. Bhavani White R.N. Wayne Davis MD CV CARDIAC SERVICES PRO CEDURES Final Result * DEVICE CHECK - REMOTE (09/08/2020 12:38 PM SADDLE AND HARNESS MAKER) Anatomical Region Laterality Modality Other Narrative 09/11/2020 9:19 AM SADDLE AND HARNESS MAKER This patient received a [employer] Pacemaker. ??They had a routine [employer] remote transmission on 09/08/2020. Device implant [...] to SOFI Episodes last 90 days/Comments: AF [place] 0 %. There were no new ventricular events noted on today's remote interrogation. NORMAL DEVICE FUNCTION PROGRAMMED Anti-coagulant(s): ??Aspirin 81 mg Anti-arrhythmic(s): ??Coreg 12.5 mg twice daily Plan: 1) normal [employer] Pacemaker evaluation 2) [employer] remote transmission scheduled in 3 months. Bhavani White R.N. us Wayne Davis MD CV CARDIAC SERVICES PRO CEDURES Final Result documented in this encounter Visit Diagnoses Diagnosis Mobitz II- Primary Mobitz (type) II atrioventricular block Mobitz II Mobitz (type) II atrioventricular block Mobitz II Mobitz (type) II atrioventricular block Cardiac pacemaker in situ Mobitz II Mobitz (type) II atrioventricular block Cardiac pacemaker in situ Mobitz II Mobitz (type) II atrioventricular block Pacemaker Cardiac pacemaker in situ documented in this encounter Care Teams Auricular Detoxification Specialist Relationship Specialty Start Date End Date Say Low MD [address] [facility] [address] [place] [address] PCP - General 02/15/17 documented as of this encounter
--- OUTSIDE RECORDS SUMMARY | 2024-09-22 19:06 | XMS_ITS | Encounter Summary ---
Author Organization [facility] Address [address] [facility] [address] [place] [address] Care Team Providers Care Shingle Catcher Name Role Phone Say Low MD Primary Care Provider [phone] Reason for Visit * Reason Onset Date Comments fyi/ AF 02/26/2021 Encounter Details Date Type Department Care Team (Late st Contact Info) Description 02/26/2021 Telephone Arrhythmia Center [address] [facility] [address] [place] [address] Wayne Davis MD [address] [facility] [address] [place] [address] fyi/ AF Social History Tobacco Use Types Packs/Day Years Used Date Smoking Tobacco: Former Cigarettes 3 22.6 1 961 - 04/29/1983 Smokeless Tobacco: Never Alcohol Use Standard Drinks/Week Comments No 0 (1 standard drink = 0.6 oz pur e alcohol) Sex and Gender Information Value Date Recorded Sex Assigned at Not on file 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 still a minimal amount but probably warrants a conversation in the office at some point to discuss if and when he would want to start blood thinners for stroke prophylaxis. Recommend scheduling appointment for next mutually available time to discuss further * Telephone Encounter - Esther Miller NP - 02/26/2021 1:23 PM CDT FYI : AF [place] an increase since last session: Latitude Alert Atrial [place] of at least 6 hours in a 24 hour period. 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 Mckayla Aburto * Telephone Encounter - Mckayla Aburto - 02/26/2021 11:05 AM CDT Images from the original note were not included. FYI : AF [place] an increase since last session: Latitude Alert Atrial [place] of at least 6 hours in a 24 hour period. 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 Mckayla Aburto documented in this encounter Plan of Treatment Not on file documented as of this encounter Visit Diagnoses Not on filedocumented in this encounter Care Teams Shingle Catcher Relationship Specialty Start Date End Date Say Low MD [address] [facility] [address] [facility] [address] [place] [id number] PCP - General 02/15/17 documented as of this encounter
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
--- OUTSIDE RECORDS SUMMARY | 2024-09-22 19:06 | XMS_ITS | Encounter Summary ---
Author Organization [facility] Address [address] [place] [address] Phone Care Team Providers Care Blaster Helper Name Role Phone Say Low MD Primary Care Provider [phone] Reason for Referral * Diagnostic Imaging (Routine) - Closed Specialty Diagnoses / Procedures Referred By Contsara silveira Referred To Contact Diagnoses Nephrolithiasis Procedures US Retroperitoneal Complete Elvin Carrillo NP Phone: tel: fax: [address] [address] Referral ID Status Reason Start Date Expiration Date Visits Re quested Visits Authorized [id number] Closed 01/31/2019 08/11/2020 1 1 Reason for Visit * Reason Comments Stent Removal * Consultation (Routine) - Closed Specialty Diagnoses / Procedures Referred By Contac t Referred To Contact Urology Diagnoses Nephrolithiasis Concetta Thurston MD Phone: tel: fax: Referral ID Status Reason Start Date Expiration Date V isits Requested Visits Authorized [id number] Closed Specialty Services Required 07/11/2018 01/20/2020 99 99 Encounter Details Date Type Department Care Team (Latest Contact Info) Description 01/31/2019 10:00 AM CDT Office Visit [facility] Advanced [facility] ([facility]) - [facility] Urology [address] [facility] 11th [place] [address] [place] [id number] Elvin Carrillo NP [address] [place] [address] Nephrolithiasis (Primary Dx) Social History Tobacco Use Types Packs/Day Years Used Date Smoking Tobacco: Former Cigarettes 3 22.6 1 961 - 04/29/1983 Smokeless Tobacco: Never Alcohol Use Standard Drinks/Week Comments No 0 (1 standard drink = 0.6 oz pur e alcohol) Sex and Gender Information Value Date Recorded Sex Assigned at Not on file 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 male. Chief Complaint Stent Removal HPI Drew Pak 78 y.o. male with hx of urolithiasis here today for stent removal after Left URS on 01/17/19. He is also sp left ESWL in 11/2017 for 8mm LP stone, Right PCNL in 06/2009, and Right ESWL in 06/2005 .?Follow up??KUB showed??remaining stones. ??Stone analysis from this 01/17/19 URS revealed 100% COM. ?? His initial??24 hour ua showed??2.58L, calcium 215, [...] flank pain, fever, chills, nausea, vomiting or hematuria.?? He takes tamsulosin for his BPH/LUTS and doing well on it. He also has hx of elevated PSA with two prostate biopsy. 12/2010 bx was benign and 08/2010 bx showed focal glandular atypia. Last PSA was 1.1on 05/31/18. 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 Yeager for this. Review of Systems Constitutional: Negative for chills, fever and unexpected weight change. Respiratory: Negative for shortness of breath. Gastrointestinal: Negative for abdominal pain, nausea and vomiting. Genitourinary: Negative for difficulty urinating, dysuria, flank pain, frequency, hematuria, scrotal swelling, testicular pain and urgency. Physical Exam Constitutional: He is oriented to [...] time. Skin: Skin is warm and dry. Cysto Prep: The purpose of the ureteral stent after stone surgery was explained to the patient. The cystourethroscopy with ureteral stent removal procedure was explained to the patient. Patient verbalize understanding and elected to proceed with the procedure. Results for orders placed or performed in visit on 01/31/19 POCT urinalysis dipstick Result Value Ref Range Glucose, ur, POC 250. (A) Negative mg/dL Ketones, ur, POC Negative Negative Blood, ur, POC 2+ (A) Negative pH, ur, POC 5.0 5.0 - 8.0 Protein, ur, POC Negative Negative Nitrite, ur, POC Negative Negative Leukocytes, ur, POC Negative Negative Lot Number 0 The patient was given Keflex 500mg (as a prophylaxis) within 2 hours of the procedure. The skin wasprepped with betadine. Lidocaine in lubricant jelly was instilled into the urethra. PROCEDURE: Cysto Stent removal: The flexible cystoscope was introduced into the urethra and advanced into the bladder. URETHRA:Normal without strictures or lesions. PROSTATE:Normal. BLADDER:Stent located, grasped with shark-tooth forceps and removed. The stent is intact. Assessment/Plan Drwe Pak 78 y.o. male with hx of urolithiasis here today for stent removal after Left URS on 01/17/19. Diagnoses and all orders for this visit: Nephrolithiasis (N20.0) (Primary) - POCT urinalysis dipstick - US Retroperitoneal Complete; Future FURTHER DIAGNOSTICS: 24-hour urine stone risk profile [...] nausea, vomiting or hematuria. Follow up in 3-4 months with Renal US prior. Cosigned by Concetta Thurston MD at 02/07/2019 10:59 PM CDT documented in this encounter Plan of Treatment Not on file documented as of this encounter Procedures Procedure Name Priority Date/Time Associated Diagnosis Comments POCT URINALYSIS DIPSTICK Routine 01/31/2019 10:15 AM CDT Nephrolithiasis documented in this encounter [...] by: Wojciech Williamson M.D. Elvin Carrillo NP IM US PROCEDURES Final Result * (ABNORMAL) POCT urinalysis dipstick (01/31/2019 10:15 AM CDT) Glucose, ur, POC 250.(A) Negative mg/dL Ketones, ur, POC Negative Negative Blood, ur, POC 2+(A) Negative pH, ur, POC 5.0 5.0 - 8.0 Protein, ur, POC Negative Negative Nitrite, ur, POC Negative Negative Leukocytes, ur, POC Negative Negative Lot Number 0 Urine 01/31/2019 10:1 5 AM CDT Elvin Carrillo NP POINT OF CARE TEST CHARISSE MCCRAY Final Result documented in this encounter Visit Diagnoses Diagnosis Nephrolithiasis- Primary Calculus of kidney Nephrolithiasis Calculus of kidney documented in this encounter Care Teams Blaster Helper Relationship Specialty Start Date End Date Say Low MD [address] [facility] [address] MED[address]INE [place], [place] [id number] PCP - General 02/15/17 documented as of this encounter
--- OUTSIDE RECORDS SUMMARY | 2024-09-22 19:06 | XMS_ITS | Encounter Summary ---
Author Organization [facility] Address [address] [place] [address] Care Team Providers Care Senior Technical Support Analyst Name Role Phone Say Low MD Primary Care Provider [phone] Reason for Visit * Reason Onset Date Comments Surgical Clearance 12/16/2020 Encounter Details Date Type Department Care Team (Late st Contact Info) Description 12/16/2020 Telephone [facility] Cardiology [address] [place] [address] Shiva Anne MD [address] [facility] [address] [place] [address] Surgical Clearance Social History Tobacco Use Types Packs/Day Years Used Date Smoking Tobacco: Former Cigarettes 3 22.6 1 961 - 04/29/1983 Smokeless Tobacco: Never Alcohol Use Standard Drinks/Week Comments No 0 (1 standard drink = 0.6 oz pur e alcohol) Sex and Gender Information Value Date Recorded Sex Assigned at Not on file 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 Verbally understood regarding asa hold. * Telephone Encounter - Doris Gaona - 12/17/2020 12:07 PM CDT LM for pt with that he may stop the ASA if absolutely req for 7 days. Instructed pt to call back w any further questions. * Telephone Encounter - Shiva Anne MD - 12/17/2020 6:14 AM CDT Images from the original note were not included. [facility] [address] [place] [address], [address] [place], [place], [address] Cardiology Electrophysiology Niko Echevarria, MD Wayne Davis,, MD Arslan Alcala, MD Miles Lenz, MD Patrick Avalos, MD Patrick Taylor, MD Esther Miller, ELIEZER Manzo, DO Elgin Bowles, MD Elia Jett, MD Shanda Edge, MD Kale Olsen, DO Shiva Anne, MD Carolann Montesinos, ELIEZER Power, ELIEZER Millan, ELIEZER I was asked to evaluate Mr. Drew Pak today in my cardiology clinic for preoperative cardiac risk assessment for upcoming surgical procedure. Mr. Drew Pak active cardiac issues include the followin. Coronary artery disease status post CABG in 2003 2. 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 Essential hypertension 4. Moderate mitral and aortic insufficiency. As of his last office visit on August 25, 2020 he was doing well. He has not reported any new unstable symptoms and therefore I think reasonable to proceed for this surgical procedure without any further cardiac testing or medication changes. Special instructions: I would prefer that he remain on his 81 mg aspirin pre and postoperatively If deemed prohibitively high bleeding risk by the surgeon however okay to hold 7 days prior to the procedure. * Telephone Encounter - Doris Gaona - 12/16/2020 11:07 AM CDT Pt calling for clearance for upcoming K Replacement surgery with Dr. Oshea @ [facility]. Last OV 08/25/20. Pt is taking asa daily. Please advise. documented in this encounter Plan of Treatment Not on file documented as of this encounter Visit Diagnoses Not on filedocumented in this encounter Care Teams Senior Technical Support Analyst Relationship Specialty Start Date End Date Say Low MD [address] [facility] [address] [place] [id number] PCP - General 02/15/17 documented as of this encounter
--- OUTSIDE RECORDS SUMMARY | 2024-09-22 19:06 | XMS_ITS | Encounter Summary ---
Author Organization [facility] Address [address] [place] [address] Care Team Providers Care Before School Babysitter Name Role Phone Say Low MD Primary Care Provider [phone] Encounter Details Date Type Department Care Team (Late st Contact Info) Description 05/14/2019 Telephone [facility] Cardiology [address] [place] [address] Patrick Taylor MD [address] [facility] [address] [place] [address] Social History Tobacco Use Types Packs/Day Years Used Date Smoking Tobacco: Former Cigarettes 3 22.6 1 961 - 04/29/1983 Smokeless Tobacco: Never Alcohol Use Standard Drinks/Week Comments No 0 (1 standard drink = 0.6 oz pur e alcohol) Sex and Gender Information Value Date Recorded Sex Assigned at Not on file Legal Sex Male 8:04 PM HOME CARE SPECIALIST Gender Identity Male 07/10/2021 8:31 AM CDT Sexual Orientation Straight 06/12/2021 8: 44 AM CDT documented as of this encounter Miscellaneous Notes * Telephone Encounter - Kimmy Kaiser - 05/14/2019 1:13 PM CDT Pt informed of test results. Forwarded results to Dr. Arslan Strickland. documented in this encounter Plan of Treatment Not on file documented as of this encounter Visit Diagnoses Not on filedocumented in this encounter Care Teams Before School Babysitter Relationship Specialty Start Date End Date Say Low MD [address] [place] [address] PCP - General 02/15/17 documented as of this encounter
--- OUTSIDE RECORDS SUMMARY | 2024-09-22 19:06 | XMS_ITS | Encounter Summary ---
Author Organization [facility] Address [address] [place] [address] Care Team Providers Care Ladle Repairman Name Role Phone Say Low MD Primary Care Provider [phone] Reason for Visit * (Routine) - Closed Specialty Diagnoses / Procedures Referred By Yary silveira Referred To Contact Diagnoses Randall II Procedures DEVICE CHECK - REMOTE Wayne Davis MD Phone: tel: fax: [facility] Referral ID Status Reason Start Date Expiration Date Visits Re quested Visits Authorized [id number] Closed 04/25/2019 11/03/2020 1 1 Encounter Details Date Type Department Care Team (Late st Contact Info) Description 08/20/2019 1:15 PM DATABASE SPECIALIST Ancillary Procedure Arrhythmia Center [address] [facility] [address] [facility] [address] [place] [address] Mobitz II; Pacemaker Social History Tobacco Use Types Packs/Day Years Used Date Smoking Tobacco: Former Cigarettes 3 22.6 1 961 - 04/29/1983 Smokeless Tobacco: Never Alcohol Use Standard Drinks/Week Comments No 0 (1 standard drink = 0.6 oz pur e alcohol) Sex and Gender Information Value Date Recorded Sex Assigned at Not on file Legal Sex Male 8:04 PM DATABASE SPECIALIST Gender Identity Male 07/10/2021 8:31 AM CDT Sexual Orientation Straight 06/12/2021 8: 44 AM CDT documented as of this encounter Plan of Treatment Not on file documented as of this encounter Procedures Procedure Name Priority Date/Time Associated Diagnosis Comments DEVICE CHECK - REMOTE Routine 08/20/2019 8:45 AM DATABASE SPECIALIST Mobitz II documented in this encounter Results * DEVICE CHECK - REMOTE (08/20/2019 8:45 AM DATABASE SPECIALIST) Anatomical Region Laterality Modality Other Narrative 09/12/2019 4:24 PM DATABASE SPECIALIST This patient received a [employer] Pacemaker. ??They had a routine ?? [...] to SOFI Episodes last 90 days/Comments: AF [place] less than 1 %, 2 minutes total time, longest duration all episodes were less than 1 minute in duration NORMAL DEVICE FUNCTION PROGRAMMED Anti-coagulant(s): ??Aspirin 81 mg daily Anti-arrhythmic(s): ??Coreg 12.5 mg twice daily, Norvasc 5 mg daily Plan: 1) normal [employer] Pacemaker evaluation 2) [employer] remote transmission scheduled in 3 months. 3) Letter sent with transmission results Manuel Sullivan R.N. us Wayne Davis MD [facility] CARDIAC SERVICES PRO CEDURES Final Result documented in this encounter Visit Diagnoses Diagnosis Mobitz II Mobitz (type) II atrioventricular block Pacemaker Cardiac pacemaker in situ documented in this encounter Care Teams Ladle Repairman Relationship Specialty Start Date End Date Say Low MD [address] [place] [address] PCP - General 02/15/17 documented as of this encounter
--- OUTSIDE RECORDS SUMMARY | 2024-09-22 19:06 | XMS_ITS | Encounter Summary ---
Author Organization [facility] Address [address] [place] [address] Phone Care Team Providers Care Etl Analyst Name Role Phone Say Low MD Primary Care Provider [phone] Encounter Details Date Type Department Care Team (Late st Contact Info) Description 07/21/2020 Telephone [facility] Urology [address] [place] [address] Elvin Carrillo NP [id number] [place] [address] Social History Tobacco Use Types Packs/Day Years Used Date Smoking Tobacco: Former Cigarettes 3 22.6 1 961 - 04/29/1983 Smokeless Tobacco: Never Alcohol Use Standard Drinks/Week Comments No 0 (1 standard drink = 0.6 oz pur e alcohol) Sex and Gender Information Value Date Recorded Sex Assigned at Not on file Legal Sex Male 8:04 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 Potassium was 5.3. He was taking Potassium 1000mg twice a day and now down to 1 tablet. He denies heart palpitations or chest pain. Plan: Will plan to recheck BMP in 1-2 weeks, at local hospital in [place]. * Telephone Encounter - Minoo Banda RMA - 07/21/2020 9:56 AM CDT Oniel Isaac, Mr Pak would like to speak with you regarding the potassium he is taking. He had surgery last week and was told him that his levels were to high. Please advise. Thank you, Matilde documented in this encounter Plan of Treatment Not on file documented as of this encounter Visit Diagnoses Diagnosis Lower urinary tract symptoms (LUTS)- Primary Nephrolithiasis Calculus of kidney documented in this encounter Orders Lab Orders Without Results Count Last Ordered D ate First Ordered Date BASIC METABOLIC PANEL 1 07/21/2020 documented in this encounter Care Teams Etl Analyst Relationship Specialty Start Date End Date Say Low MD [address] [place] [address] [place] [address] PCP - General 02/15/17 documented as of this encounter
--- OUTSIDE RECORDS SUMMARY | 2024-09-22 19:06 | XMS_ITS | Encounter Summary ---
Author Organization [facility] Care Team Providers Care Supervisor Facepiece Line Name Role Phone Say Low MD Primary Care Provider [phone] Encounter Details Date Type Department Care Team (Latest Contact Info) Description 05/01/2019 Travel Social History Tobacco Use Types Packs/Day Years Used Date Smoking Tobacco: Former Cigarettes 3 22.6 1 961 - 04/29/1983 Smokeless Tobacco: Never Alcohol Use Standard Drinks/Week Comments No 0 (1 standard drink = 0.6 oz pur e alcohol) Sex and Gender Information Value Date Recorded Sex Assigned at Not on file Legal Sex Male 8: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
--- OUTSIDE RECORDS SUMMARY | 2024-09-22 19:06 | XMS_ITS | Encounter Summary ---
Author Organization [facility] Address [address] [place] [address] Care Team Providers Care Treating And Pumping Supervisor Name Role Phone Say Low MD Primary Care Provider [phone] Reason for Visit * (Routine) - Closed Specialty Diagnoses / Procedures Referred By Yary silveira Referred To Contact Diagnoses Randall II Procedures DEVICE CHECK - REMOTE Wayne Davis MD Phone: tel: fax: [facility] Referral ID Status Reason Start Date Expiration Date Visits Re quested Visits Authorized [id number] Closed 04/25/2019 11/03/2020 1 1 Encounter Details Date Type Department Care Team (Late st Contact Info) Description 11/26/2019 8:00 AM SUPERVISOR CARBON ELECTRODES Ancillary Procedure Arrhythmia Center [address] [place] [address] Mobitz II; Pacemaker Social History Tobacco Use Types Packs/Day Years Used Date Smoking Tobacco: Former Cigarettes 3 22.6 1 961 - 04/29/1983 Smokeless Tobacco: Never Alcohol Use Standard Drinks/Week Comments No 0 (1 standard drink = 0.6 oz pur e alcohol) Sex and Gender Information Value Date Recorded Sex Assigned at Not on file Legal Sex Male 8:04 PM SUPERVISOR CARBON ELECTRODES Gender Identity Male 07/10/2021 8:31 AM CDT Sexual Orientation Straight 06/12/2021 8: 44 AM CDT documented as of this encounter Plan of Treatment Not on file documented as of this encounter Procedures Procedure Name Priority Date/Time Associated Diagnosis Comments DEVICE CHECK - REMOTE Routine 11/26/2019 12:16 PM SUPERVISOR CARBON ELECTRODES Mobitz II documented in this encounter Results * DEVICE CHECK - REMOTE (11/26/2019 12:16 PM SUPERVISOR CARBON ELECTRODES) Anatomical Region Laterality Modality Other Narrative 11/26/2019 5:30 PM SUPERVISOR CARBON ELECTRODES This patient received a [employer] Pacemaker. ??They had a routine [employer] remote transmission on 11/26/2019. Device implant [...] to SOFI Episodes last 90 days/Comments: AF [place] 0 %. NORMAL DEVICE FUNCTION PROGRAMMED Anti-coagulant(s): ??Aspirin 81 mg Anti-arrhythmic(s): ??Coreg 12.5 mg twice daily Plan: 1) normal [employer] Pacemaker evaluation 2) [employer] remote transmission scheduled in 3 months. 3) Letter sent with transmission results Bhavani White R.N. us Wayne Davis MD CV CARDIAC SERVICES PRO CEDURES Final Result documented in this encounter Visit Diagnoses Diagnosis Mobitz II Mobitz (type) II atrioventricular block Pacemaker Cardiac pacemaker in situ documented in this encounter Care Teams Treating And Pumping Supervisor Relationship Specialty Start Date End Date Say Low MD [address] [facility] [address] [place] [address] PCP - General 02/15/17 documented as of this encounter
--- OUTSIDE RECORDS SUMMARY | 2024-09-22 19:06 | XMS_ITS | Encounter Summary ---
Author Organization [facility] Address [address] [place] [address] Care Team Providers Care Clinical Unit Educator Name Role Phone Say Low MD Primary Care Provider [phone] Reason for Referral * Diagnostic Imaging (Routine) - Closed Specialty Diagnoses / Procedures Referred By Yary silveira Referred To Contact Diagnoses Nephrolithiasis Procedures US Retroperitoneal Complete Elvin Carrillo NP Phone: tel: fax: [address] [address] Referral ID Status Reason Start Date Expiration Date Visits Re quested Visits Authorized [id number] Closed 03/04/2020 09/13/2021 1 1 Reason for Visit * Diagnostic Imaging (Routine) - Closed Specialty Diagnoses / Procedures Referred By Yary silveira Referred To Contact Diagnoses Nephrolithiasis Procedures US Retroperitoneal Complete Elvin Carrillo NP Phone: tel: fax: [address] [address] Referral ID Status Reason Start Date Expiration Date Visits Re quested Visits Authorized [id number] Closed 03/04/2020 09/13/2021 1 1 Encounter Details Date Type Department Care Team (Latest Contact Info) Description 03/03/2021 12:37 PM CDT - 03/03/2021 11:59 PM CDT Hospital Encounter [facility]) [facility] [place] [address] [place] [address] [place] [address] Elvin Carrillo NP [address] [place] [address] Nephrolithiasis Discharge Disposition: Discharge to home or [...] on file Legal Sex Male 8:04 PM TRACTOR MECHANIC APPRENTICE Gender Identity Male 07/10/2021 8:31 AM [...] DAILY WITH MEALS 180 tablet 11/03/[address] (VOLTAREN) 75 mg EC tablet take 1 tablet by oral route every day 0 0 09/10/2015 1 furosemide (LASIX) 40 mg tablet Take 40 mg by mouth daily 12/13/2019 2 losartan (COZAAR) 100 mg tablet take 1 tablet by oral route every day 30 0 11/17/2015 4 hnuaomyz-nfk-YT- lycopen-lutein (CENTRUM SILVER) 0.4-300-250 mg-mcg-mcg tablet 1 tab daily 0 0 09/10/2015 2 omega-3 fatty acids-fish oil (FISH OIL) 300-1,000 mg capsule 1 capsule daily 0 0 09/10/2015 2 simvastatin (ZOCOR) 20 mg tablet take [...] COMPLETE Schedule Routine, Read Routine (OP Routine) 03/03/2021 1:56 PM CDT Nephrolithiasis documented in this encounter [...] by: Wojciech Williamson M.D. us Elvin Carrillo SALES EFFECTIVENESS MANAGER IMG US PROCEDURES Final Result documented in this encounter Visit Diagnoses Diagnosis Nephrolithiasis Calculus of kidney documented in this encounter Care Teams Clinical Unit Educator Relationship Specialty Start Date End Date Say Low MD [address] [facility] [address] [place] [id number] PCP - General 02/15/17 documented as of this encounter
--- OUTSIDE RECORDS SUMMARY | 2024-09-22 19:06 | XMS_ITS | Encounter Summary ---
Author Organization [facility] Address [address] [place] [address] Care Team Providers Care Directional Driller Name Role Phone Say Low MD Primary Care Provider [phone] Reason for Visit * Reason Comments Hyperlipidemia Coronary Artery Disease Encounter Details Date Type Department Care Team (Latest Contact Info) Description 08/25/2020 1:45 PM CONTINUITY READER Office Visit [facility] Cardiology [address] [address] [facility] [address] [place] [address] Shiva Anne MD [facility] [facility] [address] [place] [address] 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 (CMS/HCC) (Primary Dx); Hx of CABG; Mobitz II; Pacemaker; Essential [...] on file Legal Sex Male 8:04 PM CONTINUITY READER Gender Identity Male 07/10/2021 8:31 AM CDT Sexual Orientation Straight 06/12/2021 8: 44 AM CDT documented as of this encounter Last Filed Vital Signs Vital Sign Reading Time Taken Comments Blood Pressure 120/68 08/25/2020 1:55 PM CONTINUITY READER Pulse 62 08/25/2020 1:55 PM CONTINUITY READER Temperature - - Respiratory Rate - - Oxygen Saturation - - Inhaled Oxygen Concentration - - Weight 109.3 kg (241 lb) 08/25/2020 1:55 PM CONTINUITY READER Height 176.5 cm (5' 9.5 ) 08/25/2020 1:55 PM CONTINUITY READER Body Mass Index 35.08 08/25/2020 1:55 PM CONTINUITY READER documented in this encounter Progress Notes * Shiva Anne MD - 08/25/2020 1:45 PM CST Images from the original note were not included. [facility] Cardiology [address], [address] [place], [place], [address] Cardiology Electrophysiology Niko Echevarria, MD Wayne Davis,, MD Arslan Alcala, MD Miles Lenz, MD Patrick Avalos, MD Patrick Taylor, MD Esther Miller, ELIEZER Manzo, DO Elgin Bowles, MD Elia Jett, MD Shanda Edge, MD Gilson Eden, MD Kale Faith, DO Shiva Anne, MD Carolann Montesinos, WEB MARKETING ANALYST Kimmy Power, WEB MARKETING ANALYST Xiomara Millan, WEB MARKETING ANALYST Patient Name: Drew Pak Provider: Shiva Anne MD : 1940 Date of Service: 08/25/2020 Referring: Maranda CHIEF COMPLAINT: Hyperlipidemia and Coronary Artery Disease HISTORY OF PRESENT ILLNESS: 80 y.o. male with CABG and valvular heart disease. 5 weeks ago had back surgery at [facility], had laminectomy, and says it helped quiet a bit Not he is having knee pain and is waiting to see an orthopaedist Tolerated surgery well, had a thorough cardiac evaluation prior to the above surgery Denies any cardiac symptoms no chest pain no PND no orthopnea I reviewed this patient's Allergies and Current Medication List and updated as needed in the medical record. I reviewed this patient's Past Medical History, Social History, and Family History and updated as needed in the medical record. MEDICATIONS: Outpatient Encounter Medications as of 08/25/2020 Medication Sig Dispense Refill ??? allopurinoL (ZYLOPRIM) [...] by mouth nightly ) 30 0 ??? uvbxbntw-ibq-EY-lycopen-lutein (CENTRUM SILVER) 0.4-300-250 mg-mcg-mcg tablet 1 tab [...] by mouth 2 (two) times a day ??? simvastatin (ZOCOR) 20 mg tablet take [...] Ellipta 100-62.5-25 mcg inhaler daily ??? [DISCONTINUED] Anoro Ellipta 62.5-25 mcg/actuation blister with device Take 1 puff by mouth daily Facility-Administered Encounter Medications as of 08/25/2020 Medication Dose Route Frequency Provider Last Rate Last Admin ??? sodium chloride 0.9% flush 0.5-20 mL 0.5-20 mL intra-catheter Q8H Patrick Cruz MD ??? sodium chloride 0.9% flush 0.5-20 mL 0.5-20 mL intra-catheter PRPatrick Hong MD The following pertinent medical data was [...] REVIEW OF SYSTEMS Review of Systems Constitution: Negative for decreased appetite, fever, weight gain and weight loss. HENT: Negative. Eyes: Negative for visual [...] wound healing and rash. Musculoskeletal: Positive for joint pain. Negative for back pain, falls and myalgias. Gastrointestinal: Negative for bloating, abdominal pain, melena, nausea and vomiting. Genitourinary: Negative. Neurological: Negative for excessive daytime sleepiness, dizziness, headaches, light-headedness, vertigo and weakness. Psychiatric/Behavioral: Negative for altered mental status and substance abuse. The patient does not have insomnia and is not nervous/anxious. Allergic/Immunologic: Negative for environmental allergies. PHYSICAL EXAM: BP 120/68 (BP Location: Right arm, Patient Position: Sitting) Pulse 62 Ht 176.5 cm (5' 9.5 ) Wt 109.3 kg (241 lb) BMI 35.08 kg/m?? Physical Exam Constitutional: He is oriented [...] Musculoskeletal: General: No tenderness, deformity or edema. Comments: Ambulating with cane Neurological: He is alert and oriented to person, place, and time. Skin: No rash noted. No erythema. Psychiatric: He has a normal mood and affect. Vitals reviewed. 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 Antiplatelet therapy: Current regimen includes asa 81mg 2. Lipid therapy: current regimen includes simvastatin 3. Discussed importance of tobacco cessation. Patient is a No 4. Blood pressure management. Current blood pressure is BP 120/68 (BP Location: Right arm, Patient Position: Sitting) Pulse 62 Ht 176.5 cm (5' 9.5 ) Wt 109.3 kg (241 lb) BMI 35.08 kg/m?? This represents adequate control. 5. Reviewed importance adequate glycemic control. 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 (CMS/HCC) (HCC)- Primary Hx of CABG Postsurgical aortocoronary bypass status Mobitz II Mobitz (type) II atrioventricular block Pacemaker Cardiac pacemaker in situ Essential hypertension Unspecified essential hypertension 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 documented in this encounter Discontinued Medications Medication Sig Discontinue Reason Start Date End Da te Anoro Ellipta 62.5-25 mcg/actuation blister with device Take 1 puff by mouth daily 03/06/2020 08/25/2020 documented as of this encounter Historical Medications * This list may reflect changes made after this encounter. Medication Sig Dispense Quantity Refills Last Filled Start D ate End Date Trelegy Ellipta 100-62.5-25 mcg inhaler daily 08/15/2020 05/28/2022 added in this encounter Care Teams Directional Driller Relationship Specialty Start Date End Date Say Low MD [address] [facility] [address] [place] [address] PCP - General 02/15/17 documented as of this encounter
--- OUTSIDE RECORDS SUMMARY | 2024-09-22 19:06 | XMS_ITS | Encounter Summary ---
Author Organization [facility] Address [address] [place] [address] Phone Care Team Providers Care Home Health Caregiver Name Role Phone Say Low MD Primary Care Provider Reason for Visit * Reason Comments Follow-up * Consultation (Routine) - Closed Specialty Diagnoses / Procedures Referred By Yary silveira Referred To Contact Urology Diagnoses Nephrolithiasis Concetta Thurston MD Phone: tel: fax: Referral ID Status Reason Start Date Expiration Date V isits Requested Visits Authorized [id number] Closed Specialty Services Required 07/11/2018 01/20/2020 99 99 Encounter Details Date Type Department Care Team (Late st Contact Info) Description 09/21/2019 9:50 AM ARTIFICIAL GLASS EYE MAKER [facility] Urology [address] [place] [address] [place] [address] Slick Yeager MD [address] [place] [address] Stricture of anterior urethra in male, unspecified stricture type (Primary Dx); 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, unspecified stricture type Social History Tobacco Use Types Packs/Day Years Used Date Smoking Tobacco: Former Cigarettes 3 22.6 1 961 - 04/29/1983 Smokeless Tobacco: Never Alcohol Use Standard Drinks/Week Comments No 0 (1 standard drink = 0.6 oz pur e alcohol) Sex and Gender Information Value Date Recorded Sex Assigned at Not on file Legal Sex Male 8:04 PM ARTIFICIAL GLASS EYE MAKER Gender Identity Male 07/10/2021 8:31 AM CDT Sexual Orientation Straight 06/12/2021 8: 44 AM CDT documented as of this encounter Progress Notes * Slick Yeager MD - 09/21/2019 9:50 AM CST Images from the original note were not included. Chief complaint: Bulbar urethral stricture ?? History of present illness: Drew Pak is a 79 y.o. male with ureteroscopy for kidney stones by Dr. Thurston. ??She noted a soft bulbar urethral stricture. ??Stent was able to be removed via clinc cystoscopy 01/31/19. ??He takes flomax for BPH. He recently had back surgery/laminectomy and is now taking diuretics now and having frequency. He is also having some urge incontinence symptoms nowas well. He will feel the urge to go to the bathroom when he stands up sometimes and leaks urine. He drinks coffee daily as well as caffeinated beverages. He says he has a good flow without problem. He says that he is having issues healing with his S1 area. ?? Post Void Residual = 0 cc ?? Review of systems: The patient denies any nausea, vomiting, diarrhea. No fever, or chills. ?? Physical Exam: There were no vitals filed for this visit. Constitutional: no acute distress Skin/Integumentary: no bruising or rashes on face or hands, scalp atraumatic Eyes: Extraocular muscles intact, mucous membranes moist, sclera white, conjunctiva pink Ears, Nose, Mouth/Throat: neck normal range of motion and trachea midline, no bleeding gums or nose Respiratory: No coarse breath sounds or wheezing, breathing symmetric Gastrointestinal: soft/nt/nd Genitourinary: no cva tenderness Psychiatric: Mood and affect appropriate, alert and oriented to person, place and time, good historian Neurologic: Normal gait, speech clear, tongue midline, normal hand strength ?? Objective: ?? Objective Labs Reviewed Lab Results Component Value Date ?? CREATININE 1.37 (H) 01/08/2019 ?? Lab Results Component Value Date ?? PSA 1.1 05/31/2018 ? The following images were personally reviewed by me. ?? Orders: No orders of the defined types were placed in this encounter. ? Assessment and plan: Drew Pak is a 79 y.o. male with with urethral stricture. ??Doing well with a good flowwith a minimal PVR. He is having some urge incontinence issues after his spine surgery. We discussed conservative measures to improve his urinary urgency. Avoiding excess fluid before social situations, identifying bathrooms prospectively, voiding at regular intervals can all be protective against urgency and urge incontinence. We discussed common dietary bladder irritants that may be helpful to avoid including caffeine, alcohol (especially red wine), citrus and spicy foods. We discussed anticholinergics but he is not interested due to constipation. He otherwise is doing well [facility]. ?? FICIAL GLASS EYE MAKER documented in this encounter Plan of Treatment Not on file documented as of this encounter Procedures Procedure Name Priority Date/Time Associated Diagnosis Comments MEASURE POST VOID RESIDUAL Routine 09/21/2019 Stricture of anterior urethra in male, unspecified stricture type documented in this encounter Results * Measure post void residual (09/21/2019) Narrative Dana Red LPN - 09/21/2019 0 ml Slick Yeager MD NURSING ASSESSMENTS Final Result documented in this encounter Visit Diagnoses Diagnosis Stricture of anterior urethra in male, unspecified stricture type- Primary 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
--- OUTSIDE RECORDS SUMMARY | 2024-09-22 19:07 | XMS_ITS | Encounter Summary ---
Author Organization [facility] Healthcare Address [address] [place] [address] Care Team Providers Care Chief Investigator Name Role Phone Say Low MD Primary Care Provider [phone] Encounter Details Date Type Department Care Team (Late st Contact Info) Description 01/17/2019 8:29 AM CDT Anesthesia Event [facility] Operating Room [address] [place] [id number] Castro Vergara MD [address] [facility] [address] [place] [address] uJany Andrew NP [address] [facility] [address] [phone] [place] [address] Anesthesia Record Procedure Summary Procedure Name Responsible Anesthesiologist Anesthesia Start Time Anesthesia Stop Time URETEROSCOPY (Left: Perineum) Castro Vergara MD 01/17/19 0829 01/17/19 1032 Events Date Time Event Comment 01/17/2019 0804 0829 An Start 0831 In Room 0833 An Start Data 0838 An Induction The patient was reevaluated immediately before moderate or deep sedation use and before anesthesia induction. 0847 An Intubation 0853 Anesthesia Ready 0858 Proc Start 0927 Quick Note Pulse ox probe changed to R earlobe with improvement of SpO2 to 100%. 0930 Quick Note Laser goggles a pplied to patient. 1016 Proc Fin 1022 An Extubation 1025 an stop data 1025 Out of Room 1032 Handoff to RN I completed my handoff [...] disposition at the time of handoff: PACU 1032 An Stop Meds Name Total lidocaine 1 % PF 100 mg fentaNYL 100 mcg rocuronium 40 mg phenylephrine 100 mcg/mL 200 mcg ondansetron PF (ZOFRAN) 2 mg/mL injectio n 4 mg etomidate 40 mg ceFAZolin 2,000 mg phenylephrine infusion 3.33 mg famotidine PF 20 mg sugammadex 400 mg Lactated Ringer's (LR) infusion 900 mL * Agents Name O2% N2O O2 Air Sevoflurane Inspired Sevoflurane * Blood No blood administrations on file. Lines, Drains, and Airways Type Details Placement Removal Peripheral IV Placement Date: 01/17/19; Placement Time: 0710; Catheter Size: 18 G; Orientation: Left; Location: Hand; Insertion Attempts: 1; Patient Tolerance: Tolerated well; Removal Date: 01/17/19; Removal Time: 1200; Removal Reason: Therapy completed 01/17/19 0710 by Ramonita Ruggiero RN 01/17/19 1200 by Leigha Rendon RN RETIRED Surgical Site 01/17/19; 0831; Le ft; 09/04/24 (Retired LDA, Removed/Completed by [facility] with LDA Utility); 1213 (Retired LDA, Removed/Completed by [facility] with LDA Utility) 01/17/19 0831 by Bhavani Barcenas RN 09/04/24 1213 by Discharge Provider, Automatic ETT Placement Date: 01/17/19; Placement Time: 0850 (created via procedure documentation); Technique: Video laryngoscopy; Type: ETT - single; Single Lumen Tube Size: 7 mm; Cuffed: Yes; Laryngoscope: Brook; Location: Oral; Insertion Attempts: 1; Placement Verification: Auscultation, Capnometry; Removal Date: 01/17/19; Removal Time: 1022 01/17/19 0850 by Oxana Nolan CRNA 01/17/19 1022 by Oxana Nolan CRNA Urethral Catheter Placement Date: 01/17/19; Placement Time: 1015; Inserted by: MD Littlejohn; Size: 18 Fr.; Balloon Size: 10 mL; Urine Returned: Yes; Removal Date: 01/17/19; Removal Time: 1032; Removal Reason: Per protocol, Per order 01/17/19 1015 by Bhavani Barcenas RN 01/17/19 1032 by Leigha Rendon RN documented in this encounter Social History Tobacco Use Types Packs/Day Years Used Date Smoking Tobacco: Former Cigarettes 3 22.6 1 961 - 04/29/1983 Smokeless Tobacco: Never Alcohol Use Standard Drinks/Week Comments No 0 (1 standard drink = 0.6 oz pur e alcohol) Sex and Gender Information Value Date Recorded Sex Assigned at Not on file Legal Sex Male 8:04 PM [employer]STER[place] Gender Identity Male 07/10/2021 8:31 AM CDT Sexual Orientation Straight 06/12/2021 8: 44 AM CDT documented as of this encounter OR Notes * Anesthesia Postprocedure Evaluation - Castro Vergara MD - 01/17/2019 11:46 AM CDT Patient: Drew Pak Procedure Summary Date: 01/17/19 Room / Location: [facility] OR POD 1 ROOM 324 / [facility] OR POD 1 Anesthesia Start: 828 Anesthesia Stop: 103 Procedures: URETEROSCOPY (Left Perineum) PLACEMENT STENT - URETERAL (Left Ureter) Diagnosis: Nephrolithiasis (Nephrolithiasis [N20.0]) Surgeon: Concetta Thurston MD Responsible Provider: Castro Vergara MD Anesthesia Type: general ASA Status: 3 Anesthesia Type: general Last vitals BP 155/81 Pulse 66 Temp 36.6 ??C (97.9 ??F) (Temporal) Resp 14 SpO2 95% Anesthesia Post Evaluation Patient location during evaluation: PACU Patient participation: complete - patient participated Level of consciousness: fully awake Pain score: 1 Pain management: adequate Airway patency: adequate Evidence of recall: no Anesthetic complications: no Cardiovascular status: hemodynamically stable Respiratory status: acceptable and room air Hydration status: euvolemic Pt is: normothermic Nausea/Vomiting status: none Comments: Patient is conscious, oriented maintaining vitals can be shifted from PACU. BP 155/81 Pulse 66 Temp 36.6 ??C (97.9 ??F) (Temporal) Resp 14 Ht 177.8 cm (5' 10 ) Wt 104.8 kg (231 lb) SpO2 95% BMI 33.15 kg/m?? * Anesthesia Procedure Notes - Oxana Nolan CRNA - 01/17/2019 8:48 AM CDT Associated Order(s): Airway Airway Patient location: OR Urgency: elective Indications for airway management: anesthesia and airway protection Difficult airway: no Staff: Supervising provider: Castro Vergara MD Placed by: APPLICATION ASSISTANT: Oxana Nolan CRNA Emergent airway documentation: Risks and benefits discussed: yes Consent obtained: yes Consent given by: patient Airway prep: Preoxygenated: yes Patient position: sniffing Mask difficulty assessment: 2 - vent by mask + OA or adjuvant Spontaneous ventilation during airway: absent Sedation level during airway: GA Final airway details: Final airway type: endotracheal airway Tube type: ETT ETT size: 7.0 mm Cuffed: yes Technique used for successful ETT placement: optical laryngoscopy (Airtraq) Devices/Methods used in placement: anterior pressure/BURP Insertion site: oral Cormack-Lehane (video): grade I - full view of glottis Cuff volume: 8 mL Cuff inflated with: air ETT to teeth: 22 cm Placement verified by: auscultation and CO2 detection Airway secured with: silk tape Number of attempts: 2 Ventilation between attempts: BVM Additional comments: Airtraq utilized electively. Grade I view with Airtraq, but large, floppy epiglottis made it difficult to pass ETT. Pt ventilated and Airtraq repositioned. Second attempt - Grade I view and Airtraq utilized to lift epiglottis. ETT then placed successfully. * Anesthesia Preprocedure Evaluation - Castro Vergara MD - 01/08/2019 3:33 PM CDT [facility] Planning Preoperative Evaluation Record CPAP Clinic at [facility] ([facility]) Date: 01/08/19 Anesthesia Evaluation Drew Pak is a 78 y.o. male Procedure(s): URETEROSCOPY PLACEMENT STENT - URETERAL Pre-Op Diagnosis Codes: * Nephrolithiasis [N20.0] HISTORY HPI Drew Pak is a 78 y.o. male who is being evaluated prior to undergoing ??URETEROSCOPY (Left Perineum) ?PLACEMENT STENT - URETERAL for Nephrolithiasis . Past Medical History Information obtained from: patient and chart. Neurological Neuro/Psych system: negative Cardiovascular + Hypertension Hypertension year diagnosed: 1999. Typical systolic BP - 130 Typical diastolic BP - 70 + CAD + CABG (denies PA, CABG post positive cardiac cath) - Prior CABG date: 2003. + CHF Diastolic function: stage I - impaired relaxation LVEF: 50-60%. + Current valvular disease - AR - mild-moderate; - mild; MR - mild; + Other arrhythmia (AV node Dysfunction, L ant fascicular block, 1st degree AV Block) - RBBB and other. + Pacemaker/ICD - dual lead ICD (atrioventricular, w/pacing functions). Brand: Revizer. Indication: sinus node dysfunction and atrioventricular block. Year inserted / last revised: 07/04/2017. Pacemaker dependent: unknown Pertinent negatives: PA ; atrial fibrillation; DVT/PE; drug-eluting stent(s); bare metal stent(s); unknown stent(s) type and hyperlipidemia Comments: F/b Dr. Jackson, last OV 04/2018 Respiratory + COPD (pt reports he doesn't know if he has chronic bronchitis or emphysema, use spiriva sporadically) Dyspnea frequency: never. Rescue inhaler use: never. Hospitalizations/ER in the last year: 0. + Pulmonary hypertension Echo PA systolic: 52. RV function: normal. Pertinent negatives: asthma; sleep apnea (MACIEJ); no history of oral steriod use and no prior intubation for respiratory failure Hepatic / Heme Pertinent negatives: liver disease; history of anemia; history of thrombocytopenia and history of Tomi positive Gastrointestinal + GERD - on daily therapy. Asymptomatic. Pertinent negatives: hiatal hernia Renal / + Nephrolithiasis (hx of multiple kidney stones as well as current kidney stone) Pertinent negatives: renal disease and dialysis Musculoskeletal/Pain + Chronic pain (pt reports r/t sciatica ) - back pain. + Osteoarthritis Pertinent negatives: headaches Endocrine / Other + Diabetes mellitus (pt reports he does not check FBS at home and is not sure what his A1C is but his PCP says it is all WNL) - Diabetes type 2. Diagnosed: 2013. Diabetic complications: neuropathy. Outpatient insulin use: none. + Obesity (BMI >30) (BMI 33.2) Pertinent negatives: thyroid disease; cancer history and infectious disease Functional Capacity Functional capacity: 4-6 METs Comments: Denies SOB or CP with 2 flights of stairs Review of Systems + chronic pain (pt reports r/t sciatica ) + numbness/tingling (Feet r/t neuropathy ) + hard of hearing (Wears hearing aids ) + chipped/loose teeth (2 missing upper front left, 1 missing back lower left ) Pertinent negatives: productive cough; wheezing; SOB; recent cold/flu; fever; chest pain; palpitations; orthopnea; pedal edema; PND; previous transfusion; melena/hematochezia; easy bruising; bleedingproblems; syncope; dizziness; muscle weakness; vision loss; heartburn; nausea; dysphagia; dentures/partials; abdominal pain (Denies UTI symptoms ); diaphoresis and no unexpected weight change PAT Summary and Plans Cardiac risk classification of planned procedure: low cardiac risk. Preoperative assessment status: lab tests ordered. Initial preoperative evaluation discussed with: Rashaun Riley MD Additional comments: Drew Pak is a 78 y.o. male who is being evaluated prior to undergoing a low cardiac risk surgery. Revised Cardiac Risk Index factors are (ischemic heart disease and history of CHF) for a total RCRI of 2 out of 6. Functional capacity is 4-6 METs. Obstructive sleep apnea (MACIEJ) screening status is STOP-Bang=4 suggesting moderate risk for MACIEJ, bicarbonate value pending. The patient is at elevated risk for obstructive sleep apnea (MACIEJ) per STOP-BANG screening questionnaire results. Patient informed of the possibility that they have undiagnosed MACIEJ, which may increasetheir risk for perioperative respiratory events. Patient also informed of the possible long-term health problems associated with MACIEJ. Because we do not feel that preoperative MACIEJ testing is likely tooutweigh the downsides of delaying surgery, we have recommended that the patient talk to their primary doctor or other clinician after surgery about getting tested for MACIEJ. CARDIAC RHYTHM DEVICE SUMMARY 1. Device brand / type / location known: Yes ([employer]) 2. Cardiac Rhythm Device Communication Request form: Pending 3. Patient pacemaker dependent: Uncertain but likely 4. Operation near cardiac rhythm device: No 5. Magnet positioning feasible for procedure: Yes 6. Device response to magnet: Pending confirmation Cardiac Rhythm Device Communication Request form will be transmitted to patients Electrophysiology physician or other clinician managing cardiac rhythm device. The patient is on aspirin therapy for primary prevention. In our opinion, the risks of discontinuing aspirin may outweigh the risks of bleeding for this procedure. Therefore, if the surgeon is in agreement with this risk assessment, we recommend that aspirin be continued throughout the perioperative period. Instructed pt to continue aspirin therapy throughout periop period, pt verbalized understanding. Please call the CPAP attending ([phone]) with any questions. Will retrieve 2017 Echo from [facility] in [place], [place] from golf club head inspector Dr. Pierce for chart completion. Blood bank needs for day of procedure: No type and screen needed Pending labs/tests include: BMP Preoperative evaluation performed by Domonique Keller NP on 01/08/19 at 5:09 PM. I have interviewed and examined the patient and agree with this Pre-Procedural Assessment performedby the above primary evaluating STILL WORKER HELPER, who is currently in the CPAP STILL WORKER HELPER Orientation interval. Signed by: Juany Andrew NP on 01/08/19 at 5:31 PM . Follow up note Labs reviewed and are significant for: Creatinine 1.37; c/w previous values. Awaiting outside records. Awaiting PPM/ICD communication form. Surgeon's office reviews laboratory results independently. Follow-up completed by: Concetta Peter NP on 01/09/19 at 12:00 PM Follow up note ECHO received 09/2016 Normal LVEF 50-55%. Moderate pHTN RVSP 52 mmHg. Mild TR. E/E' 29. Entered in diagnostics below. CARDIAC RHYTHM DEVICE SUMMARY 1. Device brand / type / location known: Yes 2. Cardiac Rhythm Device Communication Request form: Received 3. Patient pacemaker dependent: No 4. Operation near cardiac rhythm device: No 5. Magnet positioning feasible for procedure: yes, but unlikely to be needed for this procedure 6. Device response to magnet: DOO pacing while magnet in place rate 100. No PM rep needed. Labs reviewed and without significant findings CPAP process completed. Follow-up completed by: Radha Ashton NP on 01/09/19 at 1:54 PM Discussed with: Kumar Kruger MD Patient Active Problem List Diagnosis ??? AV node dysfunction ??? Bradycardia ??? RBBB ??? LAFB (left anterior fascicular block) ??? First degree AV block ??? Pacemaker ??? Urinary tract infection ??? Arthralgia of ankle ??? Arthralgia of shoulder ??? Ankylosis of ankle joint ??? Calculus of kidney ??? Urge incontinence of urine ??? Right flank pain ??? Nephrolithiasis Past Medical History: Diagnosis Date ??? CHF [...] the right coronary artery ??? LITHOTRIPSY ??? OTHER SURGICAL HISTORY 2003 triple by-pass ??? TIBIA FRACTURE SURGERY 2010 r/t trauma ??? UPPER GASTROINTESTINAL ENDOSCOPY Allergies Allergen Reactions ??? Contrast Dye [Iodinated Contrast- Oral And Iv Dye] Other (See comments) Decreased HR HOME MEDICATIONS : allopurinol (ZYLOPRIM) 100 mg tablet amLODIPine (NORVASC) 5 mg tablet aspirin 81 mg tablet carvedilol (COREG) 12.5 mg tablet cholecalciferol (VITAMIN D-3) 2,[address] (VOLTAREN) 75 mg EC tablet furosemide (LASIX) 20 mg tablet losartan (COZAAR) 100 mg tablet asoqmvha-tpw-UH-lycopen-lutein (CENTRUM SILVER) 0.4-300-250 mg-mcg-mcg tablet omega-3 fatty acids-fish oil (FISH OIL) 300-1,000 mg capsule omeprazole (PriLOSEC) 20 mg capsule potassium citrate ER (UROCIT-K) 10 mEq (1,080 mg) CR tablet simvastatin (ZOCOR) 20 mg tablet SYNJARDY XR 5-1,000 mg tablet, IR & ER, biphasic 24hr tiotropium (SPIRIVA WITH HANDIHALER) 18 mcg per inhalation capsule sertraline (ZOLOFT) 50 mg tablet tamsulosin (FLOMAX) 0.4 mg capsule,extended release 24hr Current Outpatient Medications: ??? allopurinol (ZYLOPRIM) 100 mg tablet ??? amLODIPine (NORVASC) 5 mg tablet ??? aspirin 81 mg tablet ??? carvedilol (COREG) 12.5 mg tablet ??? cholecalciferol (VITAMIN D-3) 2,000 unit tablet ??? diclofenac DR (VOLTAREN) 75 mg EC tablet ??? furosemide (LASIX) 20 mg tablet ??? losartan (COZAAR) 100 mg tablet ??? keoruyao-zoy-PS-lycopen-lutein (CENTRUM SILVER) 0.4-300-250 mg-mcg-mcg tablet ??? omega-3 fatty acids-fish oil (FISH OIL) 300-1,000 mg capsule ??? omeprazole (PriLOSEC) 20 mg capsule ??? potassium citrate ER (UROCIT-K) 10 mEq (1,080 mg) CR tablet ??? simvastatin (ZOCOR) 20 mg tablet ? ? SYNJARDY XR 5-1,000 mg tablet, IR & ER, biphasic 24hr ??? tiotropium (SPIRIVA WITH HANDIHALER) 18 mcg per inhalation capsule ??? sertraline (ZOLOFT) 50 mg tablet ??? tamsulosin (FLOMAX) 0.4 mg capsule,extended release 24hr Social History Tobacco Use Smoking Status Former Smoker ??? Packs/day: 3.00 ??? Start date: 1960 ??? Last attempt to quit: 04/29/1983 ??? Years since quittin.7 Smokeless Tobacco Never Used Substance and Sexual Activity Alcohol Use No Substance and Sexual Activity Drug Use No Family History Problem Relation Age of Onset ??? Alzheimer's disease Mother Alzheimer's disease; ??? Stroke Mother ??? Heart attack Other Family history of Myocardial infarction; Cause of : Family history of Myocardial infarction ??? Heart attack Father PAT Physical Exam Airway Exam: Mallampati: III Cervical ROM: FROM TM distance: >4 Cardiovascular Exam: Rate: regular Rhythm: regular Pulmonary Exam: LCTA, bilat EENT Exam: trachea midline Dental Exam: Otherwise appears intact and missing (2 missing front upper left, 1 missing back lower left) Skin Exam: Skin is warm and dry. Abdominal exam: Abdomen is soft. Bowel sounds are present. Current state: Patient's current state is cooperative and interactive. Line/Drains/Tubes/Devices: Cardiac devices (Left chest): internal pacemaker Vitals: 01/08/19 1455 BP: 135/74 Pulse: 65 SpO2: 93% Relevant diagnostics: ECG(s): 01/08/2019: Atrial-sensed ventricular-paced rhythm, 62 BPM Echocardiogram(s): 09/2016 TTE: Normal LV size. Mild concentric LVH. Diastolic dysfunction prsent. Increased LH filling pressures based on elevated E/E'. EF 50-55%. Preserved LV systolic function. E/E' 29 is elevated. There is mild enlargement of LA. Mitral valve leaflets appear mildly thickened. Mild MR. Mild Peak gradient of 23 mmHg. Mean gradient of 11 mm Hg. Trileaflet AV. Mild to moderate AR. Moderate pHTN based on RVSP. Estimated peak RVSP is 52 mmHg. Mild TR. Dilated IVC with respiratory collapse consistent with elevated RAP (10-15 mmHg) Stress test(s): N/A Cardiac catheterization(s): N/A PFT(s): N/A Vascular studies: N/A Other: N/A PT: No results found for requested labs within last 720 hours. INR: No results found for requested labs within last 720 hours. APTT: No results found for requested labs within last 720 hours. Hgb A1C: No results found for requested labs within last 720 hours. CBC RBC: No results found for requested labs within last 720 hours. RDW: No results found for requested labs within last 720 hours. MCHC: No results found for requested labs within last 720 hours. MCH: No results found for requested labs within last 720 hours. MCV: No results found for requested labs within last 720 hours. Hct: No results found for requested labs within last 720 hours. Hgb: No results found for requested labs within last 720 hours. WBC: No results found for requested labs within last 720 hours. MPV: No results found for requested labs within last 720 hours. Platelets: No results found for requested labs within last 720 hours. RDW CV: No results found for requested labs within last 720 hours. RDW Sd: No results found for requested labs within last 720 hours. BMP Glucose: No results found for requested labs within last 720 hours. Calcium: No results found for requested labs within last 720 hours. Sodium: No results found for requested labs within last 720 hours. Potassium: No results found for requested labs within last 720 hours. CO2: No results found for requested labs within last 720 hours. Chloride: No results found for requested labs within last 720 hours. BUN: No results found for requested labs within last 720 hours. Creatinine: No results found for requested labs within last 720 hours. STOP-Bang Total Score: 4 Gokul index score: 100 AD8 Dementia Score: 0 Short Blessed Total Score: 6 DOS Physical Exam Medical history, medications, and allergies reviewed. Attestation: I endorse the findings of the anesthesia pre-evaluation assessment dated: 01/08/2019. Airway Exam: Mallampati: III Cardiovascular Exam: Rate: regular Dental Exam: Missing and otherwise appears intact Anesthesia Plan ASA 3 My patient is approved for the Anesthesia Controlled Medication protocol when under care of a APPLICATION ASSISTANT Planned anesthesia: General Team communication plan: LMA Induction: Induction: intravenous. Postoperative Plan: No plan for postoperative opioid use. Patient's planned disposition post procedure is Outpatient. Informed Consent: Discussed plan with APPLICATION ASSISTANT. Anesthesia plan and risks discussed with patient. Plan and Consent Comments: Patient explained that given the preoperative cardiac/lung conditions he stands at higher than usual risk for cardiac/plumonary morbidity- that included possibility of arrhythmia, PA or need for postoperative ventilation/ICU care. Consent and Attending signature: I and/or my designee have discussed the anesthesia plan, benefits, possible alternatives, parental presence at time of induction (if indicated), and clinically relevant risks that may include dental injury, unintentional awareness, and/or other complications. The patient and/or parent/legal guardian understand, and agree to proceed. All questions answered. documented in this encounter Plan of Treatment Not on file documented as of this encounter Procedures Procedure Name Priority Date/Time Associated Diagnosis Comments CO AN PROCEDURE PLACEHOLDER Routine 01/17/2019 8:48 AM CDT Procedure Note - Oxana Nolan CRNA - 01/17/2019 8:48 AM CDTThis note is in progress. Airway Patient location: OR Urgency: elective Indications for airway management: anesthesia and airway protection Difficult airway: no Staff: Supervising provider: Castro Vergara MD Placed by: APPLICATION ASSISTANT: Oxana Nolan CRNA Emergent airway documentation: Risks and benefits discussed: yes Consent obtained: yes Consent given by: patient Airway prep: Preoxygenated: yes Patient position: sniffing Mask difficulty assessment: 2 - vent by mask + OA or adjuvant Spontaneous ventilation during airway: absent Sedation level during airway: GA Final airway details: Final airway type: endotracheal airway Tube type: ETT ETT size: 7.0 mm Cuffed: yes Technique used for successful ETT placement: optical laryngoscopy(Airtraq) Devices/Methods used in placement: anterior pressure/BURP Insertion site: oral Cormack-Lehane (video): grade I - full view of glottis Cuff volume: 8 mL Cuff inflated with: air ETT to teeth: 22 cm Placement verified by: auscultation and CO2 detection Airway secured with: silk tape Number of attempts: 2 Ventilation between attempts: BVM Additional comments: Airtraq utilized electively. Grade I view with Airtraq, but large, floppyepiglottis made it difficult to pass ETT. Pt ventilated and Airtraqrepositioned. Second attempt - Grade I view and Airtraq utilized to liftepiglottis. ETT then placed successfully. CO AN ELECTIVE ENDOTRACHEAL AIRWAY Routine 01/17/2019 8:48 AM CDT Procedure Note - Oxana Nolan CRNA - 01/17/2019 8:48 AM CDTThis note is in progress. Airway Patient location: OR Urgency: elective Indications for airway management: anesthesia and airway protection Difficult airway: no Staff: Supervising provider: Castro Vergara MD Placed by: APPLICATION ASSISTANT: Oxana Nolan CRNA Emergent airway documentation: Risks and benefits discussed: yes Consent obtained: yes Consent given by: patient Airway prep: Preoxygenated: yes Patient position: sniffing Mask difficulty assessment: 2 - vent by mask + OA or adjuvant Spontaneous ventilation during airway: absent Sedation level during airway: GA Final airway details: Final airway type: endotracheal airway Tube type: ETT ETT size: 7.0 mm Cuffed: yes Technique used for successful ETT placement: optical laryngoscopy(Airtraq) Devices/Methods used in placement: anterior pressure/BURP Insertion site: oral Cormack-Lehane (video): grade I - full view of glottis Cuff volume: 8 mL Cuff inflated with: air ETT to teeth: 22 cm Placement verified by: auscultation and CO2 detection Airway secured with: silk tape Number of attempts: 2 Ventilation between attempts: BVM Additional comments: Airtraq utilized electively. Grade I view with Airtraq, but large, floppyepiglottis made it difficult to pass ETT. Pt ventilated and Airtraqrepositioned. Second attempt - Grade I view and Airtraq utilized to liftepiglottis. ETT then placed successfully. documented in this encounter Visit Diagnoses Not on filedocumented in this encounter Administered Medications Inactive Administered Medications - up to 3 most recent administrations Medication Order MAR Action Action Date Dose Rate Site ceFAZolin (ANCEF) injection intravenous, As needed, Starting on Tue01/17/19 at 0850, Anesthesia Intra-op Given 01/17/2019 8:50 AM CDT 2,000 mg etomidate (AMIDATE) injection Administer over 1 Minutes, As needed, Starting on Tue01/17/19 at 0838, Anesthesia Intra-op Given 01/17/2019 8:38 AM CDT 40 mg famotidine (PEPCID) injection Administer over 2 Minutes, As needed, Starting on Tue01/17/19 at 0905, Anesthesia Intra-op Given 01/17/2019 9:05 AM CDT 20 mg fentaNYL (SUBLIMAZE) preservative free injection intravenous, As needed, Starting on Tue01/17/19 at 0838, Anesthesia Intra-op Given 01/17/2019 8:38 AM CDT 100 mcg Lactated Ringer's (LR) infusion 30 mL/hr, intravenous, Continuous, Starting on Tue01/17/19 at 0715, Pre-Op New Bag 01/17/2019 10:18 AM CDT New Bag 01/17/2019 8:29 AM CDT lidocaine PF (XYLOCAINE) 10 mg/mL (1 %) preservative free injection As needed, Starting on Tue01/17/19 at 0838, Anesthesia Intra-op Given 01/17/2019 8:38 AM CDT 100 mg ondansetron (ZOFRAN) injection intravenous, Administer over 2 Minutes, As needed, Starting on Tue01/17/19 at 1017, Anesthesia Intra-op Given 01/17/2019 10:17 AM CDT 4 mg phenylephrine (JOSÉ LUIS-SYNEPHRINE) 0.5 mg/5 mL (100 mcg/mL) in sodium chloride 0.9% (premix) intravenous, As needed, Starting on Tue01/17/19 at 0901, Anesthesia Intra-op Given 01/17/2019 9:05 AM CDT 100 mcg Given 01/17/2019 9:01 AM CDT 100 mcg phenylephrine (JOSÉ LUIS-SYNEPHRINE) 5 mg/50 mL (100 mcg/mL) in sodium chloride 0.9% (premix) Continuous PRN, Starting on Tue01/17/19 at 0859, Anesthesia Intra-op Rate/Dose Change 01/17/2019 10:10 AM CDT 0.2 mcg/kg/min 12.58 mL/hr Rate/Dose Change 01/17/2019 9:25 AM CDT 0.4 mcg/kg/min 25. 2 mL/hr Rate/Dose Change 01/17/2019 9:05 AM CDT 0.5 mcg/kg/min 31. 4 mL/hr rocuronium (ZEMURON) injection intravenous, As needed, Starting on Tue01/17/19 at 0838, Anesthesia Intra-op Given 01/17/2019 8:38 AM CDT 40 mg sugammadex (BRIDION) 100 mg/mL intravenous solution As needed, Starting on Tue01/17/19 at 1017, Anesthesia Intra-op Given 01/17/2019 10:17 AM CDT 400 mg documented in this encounter Orders Procedures Count Last Ordered Date First Orde red Date Airway 1 01/17/2019 documented in this encounter Care Teams Chief Investigator Relationship Specialty Start Date End Date Say Low MD [address] [place] [address] PCP - General 02/15/17 documented as of this encounter
--- OUTSIDE RECORDS SUMMARY | 2024-09-22 19:07 | XMS_ITS | Encounter Summary ---
Author Organization [facility] Healthcare Address [address] [place] [address] Care Team Providers Care Chemistry Specialist Name Role Phone Say Low MD Primary Care Provider [phone] Encounter Details Date Type Department Care Team (Late st Contact Info) Description 01/04/2019 2:30 PM CDT Lab [address] [address] Nephrolithiasis Social History Tobacco Use Types Packs/Day Years Used Date Smoking Tobacco: Former Cigarettes Q uit: 04/29/1983 Smokeless Tobacco: Former Alcohol Use Standard Drinks/Week Comments No 0 (1 standard drink = 0.6 oz pur e alcohol) Sex and Gender Information Value Date Recorded Sex Assigned at Not on file Legal Sex Male 8:04 PM DEVELOPMENT CONSULTANT Gender Identity Male 07/10/2021 8:31 AM CDT Sexual Orientation Straight 06/12/2021 8: 44 AM CDT documented as of this encounter Plan of Treatment Not on file documented as of this encounter Procedures Procedure Name Priority Date/Time Associated Diagnosis Comments URINE CULTURE Routine 01/04/2019 2:25 PM CDT Nephrolithiasis documented in this encounter Results * Urine culture Urine, clean voided (01/04/2019 2:25 PM CDT) Report Final Report: Less than 100,000 colonies/mL (clinically insignificant growth based on current clinical standards) [facility] Organism (CLINICALLY INSIGNIFICANT GROWTH [facility] Urine, clean voided 01/04/2019 2:25 PM CDT 01/04/2019 4:34 PM CDT Narrative [facility] - 01/05/2019 9:06 PM CDT Testing performed by [facility] Microbiology Laboratory ([phone]) Concetta Thurston MD LAB MICROBIOLOGY - [facility] ORDERABLES Final Result [facility] Department [place] [address] documented in this encounter Visit Diagnoses Diagnosis Nephrolithiasis Calculus of kidney documented in this encounter Care Teams Chemistry Specialist Relationship Specialty Start Date End Date Say Low MD [address] [facility] [address] [place] [address] PCP - General 02/15/17 documented as of this encounter
--- OUTSIDE RECORDS SUMMARY | 2024-09-22 19:07 | XMS_ITS | Encounter Summary ---
Author Organization [facility] Medical Group Address [address] [place] [address] Care Team Providers Care Mitigation Supervisor Name Role Phone Say Low MD Primary Care Provider [phone] Reason for Visit * Reason Onset Date Comments latitude remote transmission resutlts 08/01/2018 Encounter Details Date Type Department Care Team (Late st Contact Info) Description 08/01/2018 Telephone Arrhythmia Center [address] [place] [address] Candice Estrada RN [address] [place], [place] [id number] latitude remote transmission resutlts Social History Tobacco Use Types Packs/Day Years Used Date Smoking Tobacco: Former Cigarettes Q uit: 04/29/1983 Smokeless Tobacco: Former Alcohol Use Standard Drinks/Week Comments No 0 (1 standard drink = 0.6 oz pur e alcohol) Sex and Gender Information Value Date Recorded Sex Assigned at Not on file Legal Sex Male 8:04 PM 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 * Telephone Encounter - Candice Estrada RN - 08/01/2018 10:03 AM CDT Sabina, can you please send letter stating that I received the remote transmission from the device and it demonstrates appropriate function. Thanks Candice documented in this encounter Plan of Treatment Not on file documented as of this encounter Visit Diagnoses Not on filedocumented in this encounter Care Teams Mitigation Supervisor Relationship Specialty Start Date End Date Say Low MD [address] [facility] [address] [place] [id number] PCP - General 02/15/17 documented as of this encounter
--- OUTSIDE RECORDS SUMMARY | 2024-09-22 19:07 | XMS_ITS | Encounter Summary ---
Author Organization [facility] Medical Group Address [address] [place] [address] Care Team Providers Care Heel Seat Laster Name Role Phone Say Low MD Primary Care Provider [phone] Reason for Visit * Reason Onset Date Comments Send letter with transmission result 12/12/2018 Encounter Details Date Type Department Care Team (Late st Contact Info) Description 12/12/2018 Telephone Arrhythmia Center [address] [facility] [address] [place] [address] Wayne Davis MD [address] [facility] [address] [place] [address] Send letter with transmission result Social History Tobacco Use Types Packs/Day Years Used Date Smoking Tobacco: Former Cigarettes Q uit: 04/29/1983 Smokeless Tobacco: Former Alcohol Use Standard Drinks/Week Comments No 0 (1 standard drink = 0.6 oz pur e alcohol) Sex and Gender Information Value Date Recorded Sex Assigned at Not on file Legal Sex Male 8:04 PM 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 Thanks Candice documented in this encounter Plan of Treatment Not on file documented as of this encounter Visit Diagnoses Not on filedocumented in this encounter Care Teams Heel Seat Laster Relationship Specialty Start Date End Date Say Low MD [address] [facility] [address] [place] [id number] PCP - General 02/15/17 documented as of this encounter
--- OUTSIDE RECORDS SUMMARY | 2024-09-22 19:07 | XMS_ITS | Encounter Summary ---
Author Organization [facility] Care Team Providers Care Director Of Payroll Name Role Phone Say Low MD Primary Care Provider [phone] Encounter Details Date Type Department Care Team (Latest Contact Info) Description 01/17/2019 Travel Social History Tobacco Use Types Packs/Day Years Used Date Smoking Tobacco: Former Cigarettes 3 22.6 1 961 - 04/29/1983 Smokeless Tobacco: Never Alcohol Use Standard Drinks/Week Comments No 0 (1 standard drink = 0.6 oz pur e alcohol) Sex and Gender Information Value Date Recorded Sex Assigned at Not on file Legal Sex Male 8:[address]ERK Gender Identity Male 07/10/2021 8:31 AM CDT Sexual Orientation Straight 06/12/2021 8: 44 AM CDT documented as of this encounter Plan of Treatment Not on file documented as of this encounter Visit Diagnoses Not on filedocumented in this encounter Care Teams Director Of Payroll Relationship Specialty Start Date End Date Say Low MD [address] [place] [address] PCP - General 02/15/17 documented as of this encounter
--- OUTSIDE RECORDS SUMMARY | 2024-09-22 19:07 | XMS_ITS | Encounter Summary ---
Author Organization [facility] Medical Group Address [address] [place] [address] Care Team Providers Care Strain Technician Name Role Phone Say Low MD Primary Care Provider [phone] Reason for Visit * Cardiology (Routine) - Canceled Specialty Diagnoses / Procedures Referred By Yary silveira Referred To Contact Diagnoses Randall II Procedures DEVICE CHECK - REMOTE Wayne Davis MD Phone: tel: fax: Referral ID Status Reason Start Date Expiration Date V isits Requested Visits Authorized [id number] Canceled 07/04/2017 12/31/2017 1 1 Encounter Details Date Type Department Care Team (Latest Contact Info) Description 07/31/2018 10:15 AM CDT Ancillary Procedure Arrhythmia Center [address] [place] [id number] Mobitz II; Cardiac pacemaker in situ Social History Tobacco Use Types Packs/Day Years Used Date Smoking Tobacco: Former Cigarettes Q uit: 04/29/1983 Smokeless Tobacco: Former Alcohol Use Standard Drinks/Week Comments No 0 (1 standard drink = 0.6 oz pur e alcohol) Sex and Gender Information Value Date Recorded Sex Assigned at Not on file Legal Sex Male 8:04 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 Gender Identity Male 07/10/2021 8:31 AM CDT Sexual Orientation Straight 06/12/2021 8: 44 AM CDT documented as of this encounter Plan of Treatment Not on file documented as of this encounter Procedures Procedure Name Priority Date/Time Associated Diagnosis Comments DEVICE CHECK - REMOTE Routine 08/01/2018 9:52 AM CDT Mobitz II documented in this encounter Results * DEVICE CHECK - REMOTE (08/01/2018 9:52 AM CDT) Anatomical Region Laterality Modality Other Narrative 08/02/2018 1:33 PM CDT This patient received a [employer] DDD Essentio L111 pacemaker implanted on 07/04/17 for Mobitz II, he had a routine Latitude remote transmission of his pacemaker on 07/31/2018. Interrogation of the patient? s device demonstrates Appropriate DDD pacer function Appropriate battery voltage, Stable lead impedances, Stable atrial sensing TH (2) atrial arrhythmias noted. Brief A flutter < 1 minute in duration, (0) ventricular arrhythmias noted. AP-13 %, RV paced 100 % Presenting-Atrial tracking and HIGHWAY SAFETY ENGINEER Battery-FELY , 7.5 years to SOFI, Atrial-7.5 mv, 493 ohms, RV-497ohms, Plan: 1) Latitude remote DDD pacemaker evaluation as noted above. 2) Latitude transmission in 3 months 3) Letter sent with transmission results Candice Estrada RN, [facility], CCDS-Arrhythmia Device us Wayne Davis MD CV CARDIAC SERVICES PRO CEDURES Final Result documented in this encounter Visit Diagnoses Diagnosis Mobitz II Mobitz (type) II atrioventricular block Cardiac pacemaker in situ documented in this encounter Care Teams Strain Technician Relationship Specialty Start Date End Date Say Low MD [address] [facility] [address] [place] [address] PCP - General 02/15/17 documented as of this encounter
--- OUTSIDE RECORDS SUMMARY | 2024-09-22 19:07 | XMS_ITS | Encounter Summary ---
Author Organization [facility] Medical Group Address [address] [place] [address] Care Team Providers Care Chiller Operator Name Role Phone Say Low MD Primary Care Provider Reason for Visit * Cardiology (Routine) - Canceled Specialty Diagnoses / Procedures Referred By Yary silveira Referred To Contact Diagnoses Randall II Procedures DEVICE CHECK - REMOTE Wayne Davis MD Phone: tel: fax: Referral ID Status Reason Start Date Expiration Date V isits Requested Visits Authorized [id number] Canceled 07/04/2017 12/31/2017 1 1 Encounter Details Date Type Department Care Team (Late st Contact Info) Description 11/10/2018 7:00 AM SAND CUTTER Ancillary Procedure Arrhythmia Center [address] [facility] [address] [place] [phone] Mobitz II; Pacemaker Social History Tobacco Use Types Packs/Day Years Used Date Smoking Tobacco: Former Cigarettes Q uit: 04/29/1983 Smokeless Tobacco: Former Alcohol Use Standard Drinks/Week Comments No 0 (1 standard drink = 0.6 oz pur e alcohol) Sex and Gender Information Value Date Recorded Sex Assigned at Not on file Legal Sex Male 8:04 PM SAND CUTTER Gender Identity Male 07/10/2021 8:31 AM CDT Sexual Orientation Straight 06/12/2021 8: 44 AM CDT documented as of this encounter Progress Notes * Candice Estrada RN - 11/10/2018 7:00 AM CST [employer] DDD Essentio L111 pacemaker implanted on 07/04/17 for Mobitz II, Routine Latitude remote transmission of his pacemaker on 07/31/2018. Interrogation of the patient???s device demonstrates Appropriate DDD pacer function, Appropriate battery voltage, Stable lead measurements including impedances and atrial sensing TH (5) atrial arrhythmias noted. Brief A flutter < 1 minute in duration, longest 6 seconds of atrial flutter (0) ventricular arrhythmias noted. Presenting-Atrial tracking and CONSUMER PRODUCT ADVISOR See Paceart report and Scanned Latitude transmission Plan: 1) Latitude remote DDD pacemaker evaluation as noted above. 2) Latitude transmission in 3 months 3) Letter sent with transmission results Candice Estrada RN, JAC, Arrhythmia Device Specialist documented in this encounter Plan of Treatment Not on file documented as of this encounter Procedures Procedure Name Priority Date/Time Associated Diagnosis Comments DEVICE CHECK - REMOTE Routine 11/14/2018 8:40 AM SAND CUTTER Mobitz II documented in this encounter Results * DEVICE CHECK - REMOTE (11/14/2018 8:40 AM SAND CUTTER) Anatomical Region Laterality Modality Other Narrative 12/12/2018 5:01 PM CDT [employer] DDD Essentio L111 pacemaker implanted on 07/04/17 for Mobitz II, Routine Latitude remote transmission of his pacemaker on 07/31/2018. Interrogation of the patient? s device demonstrates Appropriate DDD pacer function, Appropriate battery voltage, Stable lead measurements including impedances and atrial sensing TH (5) atrial arrhythmias noted. Brief A flutter < 1 minute in duration, longest 6 seconds of atrial flutter (0) ventricular arrhythmias noted. Presenting-Atrial tracking and CONSUMER PRODUCT ADVISOR See Paceart report and Scanned Latitude transmission Plan: 1) Latitude remote DDD pacemaker evaluation as noted above. 2) Latitude transmission in 3 months 3) Letter sent with transmission results Candice Estrada RN, JAC, Arrhythmia Device Specialist Wayne Davis MD CV CARDIAC SERVICES PRO CEDURES Final Result documented in this encounter Visit Diagnoses Diagnosis Mobitz II Mobitz (type) II atrioventricular block Pacemaker Cardiac pacemaker in situ documented in this encounter Care Teams Chiller Operator Relationship Specialty Start Date End Date Say Low MD [address] [facility] [address] [place] [address] PCP - General 02/15/17 documented as of this encounter
--- OUTSIDE RECORDS SUMMARY | 2024-09-22 19:07 | XMS_ITS | Encounter Summary ---
Author Organization [facility] Medical Group Address [address] [place] [address] Care Team Providers Care Legal Document Assistant Name Role Phone Say Low MD Primary Care Provider Encounter Details Date Type Department Care Team (Late st Contact Info) Description 04/27/2018 Orders Only Arrhythmia Center [address] [place] [address] Wayne Davis MD [address] [facility] [address] [place] [address] Mobitz II (Primary Dx) Social History Tobacco Use Types Packs/Day Years Used Date Smoking Tobacco: Former Cigarettes Q uit: 04/29/1983 Smokeless Tobacco: Former Alcohol Use Standard Drinks/Week Comments No 0 (1 standard drink = 0.6 oz pur e alcohol) Sex and Gender Information Value Date Recorded Sex Assigned at Not on file Legal Sex Male 8:04 PM PROTECTION AGENT Gender Identity Male 07/10/2021 8:31 AM CDT Sexual Orientation Straight 06/12/2021 8: 44 AM CDT documented as of this encounter Plan of Treatment Not on file documented as of this encounter Visit Diagnoses Diagnosis Mobitz II- Primary Mobitz (type) II atrioventricular block documented in this encounter Care Teams Legal Document Assistant Relationship Specialty Start Date End Date Say Low MD [address] [place] [address] PCP - General 02/15/17 documented as of this encounter
--- OUTSIDE RECORDS SUMMARY | 2024-09-22 19:07 | XMS_ITS | Encounter Summary ---
Author Organization [facility] Address [address] [place] [address] Phone Care Team Providers Care Cable Installer Name Role Phone Say Low MD Primary Care Provider [phone] Encounter Details Date Type Department Care Team (Late st Contact Info) Description 01/17/2019 Telephone [place] [facility] ([facility]) - [facility] Urology [address] Advanced Medicine 11th [place] [address] [place] [address] Bushra Young, A Social History Tobacco Use Types Packs/Day Years Used Date Smoking Tobacco: Former Cigarettes 3 22.6 1 961 - 04/29/1983 Smokeless Tobacco: Never Alcohol Use Standard Drinks/Week Comments No 0 (1 standard drink = 0.6 oz pur e alcohol) Sex and Gender Information Value Date Recorded Sex Assigned at Not on file Legal Sex Male 8:04 PM SOCIAL SERVICE TECHNICIAN Gender Identity Male 07/10/2021 8:31 AM CDT Sexual Orientation Straight 06/12/2021 8: 44 AM CDT documented as of this encounter Miscellaneous Notes * Telephone Encounter - Dana Red LPN - 01/22/2019 9:29 AM CDT Called patient to let him know that Dr. Thurston wanted him to follow up withDr. Yeager and his appt. Is scheduled for 03/21 at 1:00pm * Telephone Encounter - Bushra Young MA - 01/17/2019 12:01 PM CDT Yodit can you get this pt destini with Dr Yeager * Telephone Encounter - Bushra Young MA - 01/17/2019 12:00 PM CDT ----- Message from Concetta Thurston MD sent at 01/17/2019 10:24 AM CDT ----- Follow up 1-2 weeks cysto/stent removal. 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 Yeager. Thanks! documented in this encounter Plan of Treatment Not on file documented as of this encounter Visit Diagnoses Not on filedocumented in this encounter Care Teams Cable Installer Relationship Specialty Start Date End Date Say Low MD [address] [facility] [address] [place] [address] PCP - General 02/15/17 documented as of this encounter
--- OUTSIDE RECORDS SUMMARY | 2024-09-22 19:07 | XMS_ITS | Encounter Summary ---
Author Organization [facility] Address [address] [place] [address] Phone Care Team Providers Care Tobacco Grader Name Role Phone Say Low MD Primary Care Provider [phone] Encounter Details Date Type Department Care Team (Late st Contact Info) Description 07/06/2018 Telephone [place] [facility] ([facility]) - [facility] Urology [address] [facility] [address] Advanced Medicine 11th [place] [address] [place] [address] Tatyana Alberts Social History Tobacco Use Types Packs/Day Years Used Date Smoking Tobacco: Former Cigarettes Q uit: 04/29/1983 Smokeless Tobacco: Former Alcohol Use Standard Drinks/Week Comments No 0 (1 standard drink = 0.6 oz pur e alcohol) Sex and Gender Information Value Date Recorded Sex Assigned at Not on file Legal Sex Male 8:04 PM GEAR GRINDER Gender Identity Male 07/10/2021 8:31 AM CDT Sexual Orientation Straight 06/12/2021 8: 44 AM CDT documented as of this encounter Miscellaneous Notes * Telephone Encounter - Tatyana Alberts RN - 07/06/2018 3:49 PM CDT LM for pt to clarify he should stop taking the potassium and start taking the Potassium Citrate ordered today while he was in clinic. documented in this encounter Plan of Treatment Not on file documented as of this encounter Visit Diagnoses Not on filedocumented in this encounter Care Teams Tobacco Grader Relationship Specialty Start Date End Date Say Low MD [address] [place] [address] PCP - General 02/15/17 documented as of this encounter
--- OUTSIDE RECORDS SUMMARY | 2024-09-22 19:07 | XMS_ITS | Encounter Summary ---
Author Organization [facility] Address [address] [place] [address] Care Team Providers Care Parlor Chaperone Name Role Phone Say Low MD Primary Care Provider [phone] Reason for Visit * Reason Comments Coronary Artery Disease Hypertension Hyperlipidemia Encounter Details Date Type Department Care Team (Latest Contact Info) Description 04/28/2018 11:00 AM CDT Office Visit [facility] Cardiology [address] [place] [address] Patrick Taylor MD [facility] [facility] [address] [place] [address] Atherosclerosis of [place] coronary artery of [place] heart without angina pectoris (Primary Dx); Essential hypertension; Mixed hyperlipidemia; AV block; Pacemaker Social History Tobacco Use Types Packs/Day Years Used Date Smoking Tobacco: Former Cigarettes Q uit: 04/29/1983 Smokeless Tobacco: Former Alcohol Use Standard Drinks/Week Comments No 0 (1 standard drink = 0.6 oz pur e alcohol) Sex and Gender Information Value Date Recorded Sex Assigned at Not on file 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 Gender Identity Male 07/10/2021 8:31 AM CDT Sexual Orientation Straight 06/12/2021 8: 44 AM CDT documented as of this encounter Last Filed Vital Signs Vital Sign Reading Time Taken Comments Blood Pressure 130/74 04/28/2018 11:03 AM CDT Pulse 71 04/28/2018 11:03 AM CDT Temperature - - Respiratory Rate - - Oxygen Saturation 91% 04/28/2018 11:03 AM CDT Inhaled Oxygen Concentration - - Weight 106.6 kg (235 lb) 04/28/2018 11:03 AM CDT Height 180.3 cm (5' 11 ) 04/28/2018 11:03 AM CDT Body Mass Index 32.78 04/28/2018 11:03 AM CDT documented in this encounter Progress Notes * Patrick Taylor MD - 04/28/2018 11:00 AM CDT [facility] Cardiology [address], [place] [address] Patient Name: Drew Pak Provider: Patrick Taylor MD : 1940 Date of Service: 04/28/2018 Referring: Maranda CHIEF COMPLAINT: Coronary Artery Disease; Hypertension; and Hyperlipidemia HISTORY OF PRESENT ILLNESS: 77 y.o. male with a history of CAD. He had a permanent pacemaker placed in the fall of 2016. He tells me ???I am now used to in do not even realize I have it. He denies any chest pain, unusual shortness of breath with exertion, or any worrisome cardiac symptoms. He has remote history of coronary artery bypass grafting at [facility] in [place] [facility] in October of 2003. At that time he had a saphenous vein to the 1st obtuse marginal, 2nd obtuse marginal, and posterior descending branch of the right coronary artery. These were all single bypasses. His lipid profile today is excellent. His LDL cholesterol is 59. MEDICATIONS: Outpatient Encounter Prescriptions as of 04/28/2018 Medication Sig Dispense Refill ??? allopurinol (ZYLOPRIM) 100 mg tablet take 1.5 tablet by oral route every day 0 0 ??? amLODIPine (NORVASC) 5 mg tablet take 1 tablet by oral route every day 0 0 ??? aspirin 81 mg tablet take 1 tablet by oral route every day 0 0 ??? carvedilol (COREG) 12.5 mg tablet Take 1 tablet (12.5 mg total) by mouth 2 (two) times a day with meals. 60 tablet 5 ??? cholecalciferol (VITAMIN D-3) 2,000 unit tablet Take 2,000 Units by mouth 2 (two) times a day. ??? diclofenac DR (VOLTAREN) 75 mg EC tablet take 1 tablet by oral route every day 0 0 ??? furosemide (LASIX) 20 mg tablet take 1 tablet by oral route every day 30 0 ??? losartan (COZAAR) 100 mg tablet take 1 tablet by oral route every day 30 0 ??? omkvvxvm-etc-QR-lycopen-lutein (CENTRUM SILVER) 0.4-300-250 mg-mcg-mcg tablet 1 tab daily 0 0 ??? omega-3 fatty acids-fish oil (FISH OIL) 300-1,000 mg capsule 1 capsule daily 0 0 ??? omeprazole (PriLOSEC) 20 mg capsule take 1 capsule by oral route every day before a meal 0 0 ??? potassium 99 mg tablet Take 99 mg by mouth 2 (two) times a day. ??? simvastatin (ZOCOR) 20 mg tablet take 1 tablet by oral route every day at bedtime 0 0 ? ? SYNJARDY XR 5-1,000 mg tablet, IR & ER, biphasic 24hr Take 1,000 mg by mouth daily. 0 ??? tamsulosin (FLOMAX) 0.4 mg capsule,extended release 24hr take 1 capsule by oral route every day1/2 hour following the same meal each day 0 0 ??? tiotropium (SPIRIVA WITH HANDIHALER) 18 mcg per inhalation capsule inhale 1 capsule by inhalation route every day 0 0 ??? [DISCONTINUED] metFORMIN (GLUCOPHAGE) 1,000 mg tablet take 1 tablet by oral route 2 times everyday with morning and evening meals 0 0 ??? [DISCONTINUED] potassium citrate ER (UROCIT-K) 15 mEq tablet extended release Take 1 tablet by mouth 2 (two) times a day. 0 No facility-administered encounter medications on file as of 04/28/2018. PAST MEDICAL HISTORY: Past Medical History: Diagnosis Date ??? CHF (congestive heart failure) (CMS/HCC) ??? Chronic kidney disease ??? COPD (chronic obstructive pulmonary disease) (CMS/HCC) ??? Diabetes mellitus (CMS/HCC) ??? HX OTHER MEDICAL leg/ ankle surgery due to fall of a roof (2010) ??? Hyperlipidemia ??? Hypertension PSH@ REVIEW OF SYSTEMS: General: No fever, chills, [...] excessive bleeding or bruising PHYSICAL EXAM: BP 130/74 (BP Location: Left arm, Patient Position: Sitting) Pulse 71 Ht 180.3 cm (5' 11 ) Wt106.6 kg (235 lb) SpO2 91% BMI 32.78 kg/m?? General: Well appearing, No pain or distress, well nourished Eyes: SARA/EOMI, Conjuctiva Clear ENT: External ears/nose normal Neck: Supple Respiratory: Clear. Nonlabored Cardiovascular: RRR, Gastrointestinal: soft, non-tender abdomen Extremities: no cyanosis or clubbing or edema Musculoskeletal: no obvious joint deformities Skin: no obvious rash or bruising Psychiatric: normal affect Neurologic: awake/alert, no focal deficits ASSESSMENT & PLAN: Diagnoses and all orders for this visit: Atherosclerosis of [place] coronary artery of [place] heart without angina pectoris (Primary) No worrisome symptoms. I need to review old records and see when his last ischemic workup was performed. I suspect he is due for a myocardial perfusion imaging study soon. Essential hypertension Maximal medical therapy for control. Low salt diet. Exercise. Monitor as outpatient. Mixed hyperlipidemia Excellent result AV block Pacemaker Pacemaker check today Patrick Taylor MD documented in this encounter Plan of Treatment Not on file documented as of this encounter Procedures Procedure Name Priority Date/Time Associated Diagnosis Comments POCT LIPID PANEL Routine 04/28/2018 11:5 3 AM CDT Mixed hyperlipidemia documented in this encounter Results * POCT lipid panel (04/28/2018 11:53 AM CDT) Cholesterol, POC 130 mg/dL HDL, POC 44 mg/dL Triglycerides, POC 131 mg/dL LDL Cholesterol POC 59 mg/dL Blood spot 04/28/2018 11:5 3 AM CDT Patrick Taylor MD POINT OF CARE TEST ORDERABLE S Final Result documented in this encounter Visit Diagnoses Diagnosis Atherosclerosis of [place] coronary artery of [place] heart without angina pectoris- Primary Essential hypertension Unspecified essential hypertension Mixed hyperlipidemia AV block Unspecified atrioventricular block Pacemaker Cardiac pacemaker in situ documented in this encounter Discontinued Medications Medication Sig Discontinue Reason Start Date End Da te metFORMIN (GLUCOPHAGE) 1,000 mg tablet take 1 tablet by oral route 2 times every day with morning and evening meals Therapy completed 09/10/2015 04/28/2018 potassium citrate ER (UROCIT-K) 15 mEq tablet extended release Take 1 tablet by mouth 2 (two) times a day. Therapy completed 04/19/2017 04/28/2018 documented as of this encounter Historical Medications * This list may reflect changes made after this encounter. cholecalciferol (VITAMIN D-3) 2,000 unit tablet Take 1 tablet (2,000 Units total) by mouth 2 (two) times a day SYNJARDY XR 5-1,000 mg tablet, IR & ER, biphasic 24hr Take 1,000 mg by mouth every morning 0 03/28/2018 potassium 99 mg tablet Take 99 mg by mouth 2 (two) times a day. 07/06/2018 added in this encounter Care Teams Parlor Chaperone Relationship Specialty Start Date End Date Say Low MD [address] [place] [address] PCP - General 02/15/17 documented as of this encounter
--- OUTSIDE RECORDS SUMMARY | 2024-09-22 19:07 | XMS_ITS | Encounter Summary ---
Author Organization [facility] Healthcare Address [address] [place] [address] Care Team Providers Care Principle Software Engineer Name Role Phone Say Low MD Primary Care Provider [phone] Encounter Details Date Type Department Care Team (Latest Contact Info) Description 01/05/2018 10:19 AM CDT - 01/05/2018 11:59 PM CDT Hospital Encounter [facility] [phone] Concetta Thurston MD [address] [place], [place] [id number] Discharge Disposition: Discharge to home or self care Social History Tobacco Use Types Packs/Day Years Used Date Smoking Tobacco: Former Cigarettes Q uit: 04/29/1983 Smokeless Tobacco: Former Alcohol Use Standard Drinks/Week Comments No 0 (1 standard drink = 0.6 oz pur e alcohol) Sex and Gender Information Value Date Recorded Sex Assigned at Not on file 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 Gender Identity Male 07/10/2021 8:31 AM CDT Sexual Orientation Straight 06/12/2021 8: 44 AM CDT documented as of this encounter Medications at Time of Discharge tamsulosin (FLOMAX) 0.4 mg capsule,extended release 24hr take 1 capsule by oral route every day 1/2 hour following the same meal each day 0 0 09/10/2015 allopurinol (ZYLOPRIM) 100 mg tablet take 1.5 tablet by oral route every day 0 0 09/10/2015 0 amLODIPine (NORVASC) 5 mg tablet take 1 tablet by oral route every day 0 0 09/23/2016 1 aspirin 81 mg tablet take 1 tablet by oral route every day 0 0 11/17/2015 1 carvedilol (COREG) 12.5 mg tablet Take 1 tablet (12.5 mg total) by mouth 2 (two) times a day with meals. 60 tablet 5 11/14/[address] (VOLTAREN) 75 mg EC tablet take 1 tablet by oral route every day 0 0 09/10/2015 1 furosemide (LASIX) 20 mg tablet take 1 tablet by oral route every day 30 0 09/10/2015 0 losartan (COZAAR) 100 mg tablet take 1 tablet by oral route every day 30 0 11/17/2015 4 metFORMIN (GLUCOPHAGE) 1,000 mg tablet take 1 tablet by oral route 2 times every day with morning and evening meals 0 0 09/10/2015 8 muhqbdrf-qog-DL- lycopen-lutein (CENTRUM SILVER) 0.4-300-250 mg-mcg-mcg tablet 1 tab daily 0 0 09/10/2015 2 omega-3 fatty acids-fish oil (FISH OIL) 300-1,000 mg capsule 1 capsule daily 0 0 09/10/2015 2 omeprazole (PriLOSEC) 20 mg capsule take 1 capsule by oral route every day before a meal 0 0 09/10/2015 0 potassium citrate ER (UROCIT-K) 15 mEq tablet extended release Take 1 tablet by mouth 2 (two) times a day. 0 04/19/2017 8 simvastatin (ZOCOR) 20 mg tablet take 1 [...] Procedure Name Priority Date/Time Associated Diagnosis Comments ABDOMINAL RADIOGRAPHY, FRONTAL (AP) Routine 01/05/2018 3:33 PM CDT documented in this encounter Results * ABDOMINAL RADIOGRAPHY, FRONTAL (AP) (01/05/2018 3:33 PM CDT) Anatomical Region Laterality Modality N/A Radiographic Anna ging 01/05/2018 3:33 PM CDT Narrative 01/05/2018 4:54 PM CDT Juve GARCIA M.D. FINAL REPORT The radiology attending physician has personally reviewed this study, and has reviewed and/or edited this written report and agrees with it. ACC# ??Date Time ??Exam [id number] Jan 05, 2018 10:33:00 [id number] Abdomen 1v Specify View EXAMINATION: ??Abdomen, one view. HISTORY: Nephrolithiasis COMPARISON: None IMPRESSION: ??A single supine of the abdomen is submitted for evaluation on 3 cassettes. Sternotomy wires are present and aligned. Pacemaker leads are noted in unchanged position with the right atrial lead curled in the right atrium directed towards the lateral right side. ??There is a stone in the lower pole of the left kidney which measures 11 x 5 mm. ??The other stones are not well appreciated. There is a large amount of colonic contents overlying the right kidney. Electronically signed by: Yessenia Lance M.D. Requested By: CONCETTA THURSTON ??Juve ? Dictated By: ?? BRENDA FONTAINE M.D. ??on Jan ??2017 11:44A This document has been electronically signed by: YESSENIA LANCE M.D. on Jan?2017 11:50A [id number] FERRARA M.D. FINAL REPORT The radiology attending physician has personally reviewed this study, and has reviewed and/or edited this written report and agrees with it. Attending: ??[place], ??CONCETTA Requesting: ??VIRGINIA, ??CONCETTA Requesting Fax: ?? Attending Fax: ?? Attending ID: ??[id number] Requesting ID: ??[id number] Report To 1 ID: ??[id number] ? Report To 1 Name: ??, ?? Report To 1 FAX: ?? NextGen Order #: ?? Procedure Note Miscellaneous, Not In File - 01/05/2018 Juve GARCIA M.D. FINAL REPORT The radiology attending physician has personally reviewed this study, and has reviewed and/or edited this written report and agrees with it. ACC# Date Time Exam [id number] Jan 05, 2018 10:33:00 [id number] Abdomen 1v Specify View EXAMINATION: Abdomen, one view. HISTORY: Nephrolithiasis COMPARISON: None IMPRESSION: A single supine of the abdomen is submitted for evaluation on 3 cassettes. Sternotomy wires are present and aligned. Pacemaker leads are noted in unchanged position with the right atrial lead curled in the right atrium directed towards the lateral right side. There is a stone in the lower pole of the left kidney which measures 11 x 5 mm. The other stones are not well appreciated. There is a large amount of colonic contents overlying the right kidney. Electronically signed by: Yessenia Lance M.D. Requested By: CONCETTA THURSTON M.D. Dictated By: BRENDA FONTAINE M.D. on Jan 05 2018 11:44A This document has been electronically signed by: YESSENIA LANCE M.D. on Jan 05 2018 11:50A [id number] FERRARA M.D. FINAL REPORT The radiology attending physician has personally reviewed this study, and has reviewed and/or edited this written report and agrees with it. Attending: CONCETTA THURSTON Requesting: CONCETTA THURSTON Requesting Fax: Attending Fax: Attending ID: [id number] Requesting ID: [id number] Report To 1 ID: [id number] Report To 1 Name: , Report To 1 FAX: NextGen Order #: Concetta Thurston MD IMG XR PROCEDURES Final Result documented in this encounter Visit Diagnoses Not on filedocumented in this encounter Care Teams Principle Software Engineer Relationship Specialty Start Date End Date Say Low MD [address] [facility] [address] [place] [address] PCP - General 02/15/17 documented as of this encounter
--- OUTSIDE RECORDS SUMMARY | 2024-09-22 19:07 | XMS_ITS | Encounter Summary ---
Author Organization [facility] Address [address] [place] [address] Care Team Providers Care Business Advisor Name Role Phone Say Low MD Primary Care Provider [phone] Encounter Details Date Type Department Care Team (Late st Contact Info) Description 11/16/2018 Telephone [facility] [place] 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 Gender Identity Male 07/10/2021 8:31 AM CDT Sexual Orientation Straight 06/12/2021 8: 44 AM CDT documented as of this encounter Miscellaneous Notes * Telephone Encounter - Candice Estrada RN - 12/13/2018 4:32 PM CDT done documented in this encounter Plan of Treatment Not on file documented as of this encounter Visit Diagnoses Not on filedocumented in this encounter Care Teams Business Advisor Relationship Specialty Start Date End Date Say Low MD [address] [facility] [address] [address] [facility] [address] [place] [address] PCP - General 02/15/17 documented as of this encounter
--- OUTSIDE RECORDS SUMMARY | 2024-09-22 19:07 | XMS_ITS | Encounter Summary ---
Author Organization [facility] Address [address] [place] [address] Phone Care Team Providers Care Poultry Husbandry Teacher Name Role Phone Say Low MD Primary Care Provider [phone] Reason for Referral * Diagnostic Imaging (Routine) - Closed Specialty Diagnoses / Procedures Referred By Yary silveira Referred To Contact Radiology Diagnoses Nephrolithiasis Procedures CT Abdomen Pelvis WO Contrast Concetta Thurston MD Phone: tel: fax: [address] [address] Referral ID Status Reason Start Date Expiration Date Visits Re quested Visits Authorized [id number] Closed 07/06/2018 01/15/2020 1 1 Reason for Visit * Reason Comments Nephrolithiasis Encounter Details Date Type Department Care Team (Late st Contact Info) Description 07/06/2018 11:20 AM CDT Office Visit [facility] ([facility]) - [facility] Urology [address] 11th [place] [address] [place] [id number] Concetta Thurston MD [address] [place] [address] Nephrolithiasis (Primary Dx) Social History Tobacco Use Types Packs/Day Years Used Date Smoking Tobacco: Former Cigarettes Q uit: 04/29/1983 Smokeless Tobacco: Former Alcohol Use Standard Drinks/Week Comments No 0 (1 standard drink = 0.6 oz pur e alcohol) Sex and Gender Information Value Date Recorded Sex Assigned at Not on file 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 Patient Education Kidney Stones WHAT YOU NEED TO KNOW: What is a kidney stone? Kidney stones form in the urinary system when the water and waste in your urine are out of balance. When this happens, certain types of waste crystals separate from the urine.The crystals build up and form kidney stones. Kidney stones can be made of uric acid, calcium, phosphate, or oxalate crystals. You may have more than one kidney stone. What increases my risk for kidney stones? ?? Not drinking enough liquids (especially water) each day ?? Having urinary tract infections often ?? Too much of certain foods, such as meat, salt, nuts, and chocolate ?? Obesity ?? Certain medicines, such as diuretics, steroids, and antacids ?? A family history of kidney stones ?? Being born with a kidney or bowel disorder What are the signs and symptoms of kidney stones? ?? Pain in the middle of your back that moves across to your side or that may spread to your groin ?? Nausea and vomiting ?? Urge to urinate often, burning feeling when you urinate, or pink or red urine ?? Tenderness in your lower back, side, or stomach How are kidney stones diagnosed? Your healthcare provider will ask about your health and usual foods. He or she may refer you to a urologist. You may need tests to find out what type of kidney stonesyou have. Tests can show the size of your kidney stones and where they are in your urinary system. You may need more than one of the following: ?? Urine tests may show if you have blood in your urine. They may also show high amounts of the substances that form kidney stones, such as uric acid. ?? Blood tests show how well your kidneys are working. They may also be used to check the levels ofcalcium or uric acid in your blood. ?? X-ray or ultrasound pictures may be taken of your kidneys, bladder, and ureters. You may be given contrast liquid before an x-ray to help these show up better in the pictures. You may need to havemore than one x-ray. Tell the healthcare provider if you have ever had an allergic reaction to contrast liquid. How are kidney stones treated? ?? NSAIDs , such as ibuprofen, help decrease swelling, pain, and fever. This medicine is available with or without a doctor's order. NSAIDs can cause stomach bleeding or kidney problems in certain people. If you take blood thinner medicine, always ask your healthcare provider if NSAIDs are safe foryou. Always read the medicine label and follow directions. ?? Prescription pain medicine may be given. Ask your healthcare provider how to take this medicine safely. Some prescription pain medicines contain acetaminophen. Do not take other medicines that contain acetaminophen without talking to your healthcare provider. Too much acetaminophen may cause liver damage. Prescription pain medicine may cause constipation. Ask your healthcare provider how to prevent or treat constipation. ?? Medicines to balance your electrolytes may be needed. ?? A procedure or surgery to remove the kidney stones may be needed if they do not pass on their own. Your treatment will depend on the size and location of your kidney stones. What can I do to manage kidney stones? ?? Drink more liquids. Your healthcare provider may tell you to drink at least 8 to 12 (eight-ounce) cups of liquids each day. This helps flush out the kidney stones when you urinate. Water is the best liquid to drink. ?? Strain your urine every time you go to the bathroom. Urinate through a strainer or a piece of thin cloth to catch the stones. Take the stones to your healthcare provider so they can be sent to thelab for tests. This will help your healthcare providers plan the best treatment for you. ?? Eat a variety of healthy foods. Healthy foods include fruits, vegetables, whole-grain breads, low-fat dairy products, beans, and fish. You may need to limit how much sodium (salt) or protein you eat. Ask for information about the best foods for you. ?? Stay active. Your stones may pass more easily if you stay active. Exercise can also help you manage your weight. Ask about the best activities for you. When should I seek immediate care? ?? You have vomiting that is not relieved by medicine. When should I contact my healthcare provider? ?? You have a fever. ?? You have trouble passing urine. ?? You see blood in your urine. ?? You have severe pain. ?? You have any questions or concerns about your condition or care. CARE AGREEMENT: You have the right to help plan your care. Learn about your health condition and how it may be treated. Discuss treatment options with your caregivers to decide what care you want to receive. You always have the right to refuse treatment. The above information is an physical education aide only. It is not intended as medical advice for individual conditions or treatments. Talk to your doctor, nurse or pharmacist before following any medical regimen to see if it is safe and effective for you. ?? 2017 [employer] Information is for End User's use only and may not be sold, redistributed or otherwise used for commercial purposes. All illustrations and images included in CareNotes?? are the copyrighted property of [employer], [employer]. or [employer]. documented in this encounter Ordered Prescriptions Prescription Sig Dispense Quantity Refills Last Filled Start Date End Date potassium citrate ER (UROCIT-K) 10 mEq (1,080 mg) CR tablet Take 2 tablets (20 mEq total) by mouth 2 (two) times a day. 120 tablet 11 07/06/2018 9 documented in this encounter Progress Notes * Concetta Thurston MD - 07/06/2018 11:20 AM CDT Subjective Patient is a 78 y.o. male with chief complaint of urolithiasis. HPI: Drew Casarezclaire 78 y.o. here for urolithiasis. He is sp left SWL for 8mm L LP stone. Follow up KUB showed remaining stone. The patient is currently asymptomatic and denies flank pain, fever, chills, nausea, vomiting or hematuria. He did not complete rpeat imaging prior to visit. Initial 24 hour ua showed 2.58L, calcium 215, sodium 188, oxalate 49, citrate 461, pH 5.7. He was started on Urocit K, however, he discontinued and began taking OTC potassium, with repeat 24h ua: 24 hour ua 05/2018 showed 2.41L, calcium 154, sodium 132, oxalate 46, citrate 261, pH 5.2, elevated supersaturation of uric acid. Past Medical History: Diagnosis Date ??? CHF (congestive heart failure) (CMS/HCC) ??? Chronic kidney disease ??? COPD (chronic obstructive pulmonary disease) (CMS/HCC) ??? Diabetes mellitus (CMS/HCC) ??? HX OTHER MEDICAL leg/ ankle surgery due to fall of a roof (2010) ??? Hyperlipidemia ??? Hypertension ??? Kidney stone Past Surgical History: Procedure Laterality Date ??? CARDIAC CATHETERIZATION ??? CARDIAC PACEMAKER PLACEMENT Pacemaker Placement - (Added by TW Conv) ??? CORONARY ARTERY BYPASS GRAFT ??? OTHER SURGICAL HISTORY 2003 triple by-pass Social History Substance Use Topics ??? Smoking status: Former Smoker Quit date: 04/29/1983 ??? Smokeless tobacco: Former User ??? Alcohol use No Family History Problem Relation Age of Onset ??? Alzheimer's disease Mother Alzheimer's disease; ??? Heart attack Other Family history of Myocardial infarction; Cause of : Family history of Myocardial infarction ??? Heart attack Father (Not in a hospital admission) Allergies Allergen Reactions ??? Contrast Dye [Iodinated Contrast- Oral And Iv Dye] Other (See comments) Decreased HR Review of Systems: Review of Systems Constitutional: Negative. HENT: Negative. Eyes: Negative. Respiratory: Negative. Cardiovascular: Negative. Gastrointestinal: Negative. Endocrine: Negative. Genitourinary: Negative. Musculoskeletal: Negative. Skin: Negative. Allergic/Immunologic: Negative. Neurological: Negative. Hematological: Negative. Psychiatric/Behavioral: Negative. Objective Physical Exam: Physical Exam Constitutional: He is oriented to person, place, and time. He appears well- developed and well-nourished. HENT: Head: Normocephalic and atraumatic. Nose: Nose normal. Eyes: Conjunctivae are normal. Neck: Normal range of motion. Pulmonary/Chest: Effort normal. Abdominal: Soft. There is no tenderness. There is no rebound, no guarding and no CVA tenderness. Musculoskeletal: Normal range of motion. He exhibits no edema or deformity. Neurological: He is alert and oriented to person, place, and time. Skin: Skin is warm and dry. Psychiatric: He has a normal mood and affect. Nursing note and vitals reviewed. ?? Lab/Radiology/Diagnostic Review: Imaging review: I have reviewed the result(s) and agree with the radiologist's report. Drew Pak 78 y.o. here for urolithiasis. FURTHER DIAGNOSTICS: Imaging: KUB today. Renal US prior to next visit BMP on Urocit K 24-hour urine stone risk profile prior to next visit. TREATMENT RECOMMENDATIONS: Analgesics as needed Prescribed Urocit K 2 tabs BID, discontinue OTC potassium. Behavioral: Recommend fluid intake to make approximately 2-3 liters of urine per day For left renal stone recommend URS vs PCNL vs observation. Discussed PCNL and risks including bleeding, infection, injury to kidney and adjacent structures including lung, adjacent organs, colon, loss of kidney, failure to eradicate stones, need for additional procedures, as well as benefits and alternatives to the procedure. Discussed ureteroscopic stone extraction and risks including bleeding, infection, ureteral injury/stricture, failure to eradicate stones, need for additional procedures, as well as benefits and alternatives to the procedure. Discussed risk of stone progression, including growth, stone migration, renal obstruction resultingin loss of renal function, associated infection which may be life-threatening. The patient understands these risks and wishes to observe. FOLLOW-UP: Report intensification of symptoms to my office or go to the emergency room for intractable pain, associated fever, chills, nausea, vomiting or hematuria. Return office visit in 6 months. documented in this encounter Plan of Treatment Not on file documented as of this encounter Results * CT Abdomen Pelvis WO Contrast (01/04/2019 9:04 AM CDT) Anatomical Region Laterality Modality Body N/A Computed Tomogra phy 01/04/2019 9:32 AM CDT Impressions 01/04/2019 9:56 AM CDT 1. ??Multiple bilateral nonobstructing renal calculi and a single left distal ureteral calculus as described above. Dictated by: Kiran Cowart M.D. The radiology attending physician has personally reviewed this study, and had reviewed and/or edited this written report and agrees with it. Electronically signed by: Mich George M.D. Narrative 01/04/2019 9:56 AM CDT EXAMINATION: ??Computed tomography of the abdomen and pelvis without intravenous contrast HISTORY: 78-year-old man with urolithiasis and a history of prior left shockwave lithotripsy for an 8 mm left lower pole stone. Patient is currently on observation. TECHNIQUE: ??Transaxial computed tomographic images of the abdomen and pelvis were obtained without intravenous contrast according to the renal stone protocol. COMPARISON: CT abdomen pelvis 02/11/2017. FINDINGS: ?? The visualized portions of the lung bases are notable for minimal bibasilar atelectasis. ??The heart is mildly enlarged without pericardial effusion. ??Left ventricular and left atrial pacemaker leads are partially visualized. ??Severe coronary artery calcifications are present. ??Median sternotomy wires are partially visualized. There is a small hiatal hernia. The liver is small and nodular with periportal widening, consistent with cirrhosis. ?? No focal hepatic lesions are identified on this noncontrast examination. ??The spleen, pancreas, bilateral adrenal glands, and gallbladder are normal. There is a cyst arising from the superior pole of the left kidney, unchanged when compared to the prior examination. ??There is a 2 mm nonobstructing superior pole left renal calculus. ??There is an additional 2 mm nonobstructing left inferior pole renal calculus, likely a fragment of the previous larger stone at the location seen on the 02/01/2017 examination. ??There is a 5 mm stone within the distal left ureter just proximal to the left ureterovesical junction (slice position -228.5). ??There is no left hydro-ureter or hydronephrosis. There is a 3 mm nonobstructing stone at the inferior pole of the right kidney (slice position -58.5), unchanged. ??There are two adjacent nonobstructing renal stones in the inferior pole of the right kidney (slice positions -68.5, -70,5) which measure 2 mm each and are unchanged. The previously noted stone in the right mid zone has resolved or has passed in the interim. There is no right hydroureter or hydronephrosis. The prostate is mildly enlarged. The bladder is normal. The colon is normal in course and caliber. ??Scattered colonic diverticulosis without diverticulitis. The appendix is normal. ??There is no evidence of small bowel obstruction. ??Unchanged small bowel containing umbilical hernia without evidence of obstruction. ??There is no free intraperitoneal air or free fluid. ?? There is moderate atherosclerotic calcification of the nonaneurysmal abdominal aorta. There is no retroperitoneal, mesenteric, iliac, or inguinal lymphadenopathy. There are degenerative changes of the lumbar spine. A bone island is noted in the right ischium. No destructive osseous lesions are identified. Procedure Note Mich George MD - 01/04/2019 EXAMINATION: Computed tomography of the abdomen and pelvis without intravenous contrast HISTORY: 78-year-old man with urolithiasis and a history of prior left shockwave lithotripsy for an 8 mm left lower pole stone. Patient is currently on observation. TECHNIQUE: Transaxial computed tomographic images of the abdomen and pelvis were obtained without intravenous contrast according to the renal stone protocol. COMPARISON: CT abdomen pelvis 02/11/2017. FINDINGS: The visualized portions of the lung bases are notable for minimal bibasilar atelectasis. The heart is mildly enlarged without pericardial effusion. Left ventricular and left atrial pacemaker leads are partially visualized. Severe coronary artery calcifications are present. Median sternotomy wires are partially visualized. There is a small hiatal hernia. The liver is small and nodular with periportal widening, consistent with cirrhosis. No focal hepatic lesions are identified on this noncontrast examination. The spleen, pancreas, bilateral adrenal glands, and gallbladder are normal. There is a cyst arising from the superior pole of the left kidney, unchanged when compared to the prior examination. There is a 2 mm nonobstructing superior pole left renal calculus. There is an additional 2 mm nonobstructing left inferior pole renal calculus, likely a fragment of the previous larger stone at the location seen on the 02/01/2017 examination. There is a 5 mm stone within the distal left ureter just proximal to the left ureterovesical junction (slice position -228.5). There is no left hydro-ureter or hydronephrosis. There is a 3 mm nonobstructing stone at the inferior pole of the right kidney (slice position -58.5), unchanged. There are two adjacent nonobstructing renal stones in the inferior pole of the right kidney (slice positions -68.5, -70,5) which measure 2 mm each and are unchanged. The previously noted stone in the right mid zone has resolved or has passed in the interim. There is no right hydroureter or hydronephrosis. The prostate is mildly enlarged. The bladder is normal. The colon is normal in course and caliber. Scattered colonic diverticulosis without diverticulitis. The appendix is normal. There is no evidence of small bowel obstruction. Unchanged small bowel containing umbilical hernia without evidence of obstruction. There is no free intraperitoneal air or free fluid. There is moderate atherosclerotic calcification of the nonaneurysmal abdominal aorta. There is no retroperitoneal, mesenteric, iliac, or inguinal lymphadenopathy. There are degenerative changes of the lumbar spine. A bone island is noted in the right ischium. No destructive osseous lesions are identified. IMPRESSION: 1. Multiple bilateral nonobstructing renal calculi and a single left distal ureteral calculus as described above. Dictated by: Kiran Cowart M.D. The radiology attending physician has personally reviewed this study, and had reviewed and/or edited this written report and agrees with it. Electronically signed by: Mich George M.D. Concetta Thurston MD IMG CT PROCEDURES Final Result documented in this encounter Visit Diagnoses Diagnosis Nephrolithiasis- Primary Calculus of kidney Nephrolithiasis Calculus of kidney documented in this encounter Discontinued Medications Medication Sig Discontinue Reason Start Date End Da te potassium 99 mg tablet Take 99 mg by mouth 2 (two) times a day. Therapy completed 07/06/2018 documented as of this encounter Orders Lab Orders Without Results Count Last Ordered D ate First Ordered Date BASIC METABOLIC PANEL 1 07/06/2018 documented in this encounter Care Teams Poultry Husbandry Teacher Relationship Specialty Start Date End Date Sya Low MD [address] [facility] [address] [place] [address] PCP - General 02/15/17 documented as of this encounter
--- OUTSIDE RECORDS SUMMARY | 2024-09-22 19:07 | XMS_ITS | Encounter Summary ---
Author Organization [facility] Address [address] [place] [address] Care Team Providers Care Dietary Cook Name Role Phone Say Low MD Primary Care Provider Reason for Referral * Diagnostic Imaging (Routine) - Closed Specialty Diagnoses / Procedures Referred By Yary silveira Referred To Contact Radiology Diagnoses Nephrolithiasis Procedures CT Abdomen Pelvis WO Contrast Concetta Thurston MD Phone: tel: fax: [address] [address] Referral ID Status Reason Start Date Expiration Date Visits Re quested Visits Authorized [id number] Closed 07/06/2018 01/15/2020 1 1 Reason for Visit * Diagnostic Imaging (Routine) - Closed Specialty Diagnoses / Procedures Referred By Yary silveira Referred To Contact Radiology Diagnoses Nephrolithiasis Procedures CT Abdomen Pelvis WO Contrast Concetta Thurston MD Phone: tel: fax: [address] [address] Referral ID Status Reason Start Date Expiration Date Visits Re quested Visits Authorized [id number] Closed 07/06/2018 01/15/2020 1 1 Encounter Details Date Type Department Care Team (Latest Contact Info) Description 01/04/2019 8:37 AM CDT - 01/04/2019 11:59 PM CDT Hospital Encounter [facility] [address] [place] [address] Concetta Thurston MD [address] [place] [address] Nephrolithiasis Discharge Disposition: Discharge to home or self care Social History Tobacco Use Types Packs/Day Years Used Date Smoking Tobacco: Former Cigarettes Q uit: 04/29/1983 Smokeless Tobacco: Former Alcohol Use Standard Drinks/Week Comments No 0 (1 standard drink = 0.6 oz pur e alcohol) Sex and Gender Information Value Date Recorded Sex Assigned at Not on file 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 Gender Identity Male 07/10/2021 8:31 AM CDT [...] MOUTH TWICE DAILY WITH MEALS 180 tablet 10/23/[address] (VOLTAREN) 75 mg EC [...] route every day 30 0 11/17/2015 4 [id number]- lycopen-lutein (CENTRUM SILVER) 0.4-300-250 mg-mcg-mcg tablet 1 [...] CONTRAST Schedule Routine, Read Routine (OP Routine) 01/04/2019 9:04 AM CDT Nephrolithiasis documented in this encounter [...] kidney documented in this encounter Care Teams Dietary Cook Relationship Specialty Start Date End Date Say Low MD [address] [facility] [address] [place] [address] PCP - General 02/15/17 documented as of this encounter
--- OUTSIDE RECORDS SUMMARY | 2024-09-22 19:07 | XMS_ITS | Encounter Summary ---
Author Organization [facility] Healthcare Address [address] [place] [address] Care Team Providers Care Tongue Presser Name Role Phone Say Low MD Primary Care Provider [phone] Encounter Details Date Type Department Care Team (Latest Contact Info) Description 01/17/2019 6:14 AM CDT - 01/17/2019 12:06 PM CDT Hospital Encounter [facility] Operating Room [address] [place] [address] Concetta Thurston MD [address] [place] [address] Nephrolithiasis Discharge Disposition: Discharge to home or [...] on file Legal Sex Male 8:04 PM [employer] Gender Identity Male 07/10/2021 8:31 AM CDT Sexual Orientation Straight 06/12/2021 8: 44 AM CDT documented as of this encounter Last Filed Vital Signs Vital Sign Reading Time Taken Comments Blood Pressure 150/79 01/17/2019 11:40 AM CDT Pulse 65 01/17/2019 11:40 AM CDT Temperature 36.5 ??C (97.7 ??F) 01/17/2019 11:30 AM C DT Respiratory Rate 13 01/17/2019 11:40 AM CDT Oxygen Saturation 100% 01/17/2019 11:40 AM CDT Inhaled Oxygen Concentration - - Weight 104.8 kg (231 lb) 01/17/2019 6:47 AM CDT Height 177.8 cm (5' 10 ) 01/17/2019 6:47 AM CDT Body Mass Index 33.15 01/17/2019 6:47 AM CDT documented in this encounter Discharge Instructions * Discharge Instructions* Teresita Littlejohn MD - 01/17/2019 10:37 AM CDT DISCHARGE INSTRUCTIONS FOR URETERAL STENT Call your doctor if: * You have a fever higher than 101.5 F (38.6 C). * You have nausea, vomiting or diarrhea. * Your pain medicine is not helping your pain. * You feel dizzy, very tired or like you may faint. * You have large blood clots in your urine. (Small amounts of pink-tinged urine are normal, especially after physical activity.) * You have continuous leakage of urine that is not normal for you. Call your surgeon???s office during regular business hours if you have questions or concerns. If you need to speak to someone after regular hours or on weekends or holidays, call . Diet: At first eat a bland diet; avoiding foods that are high in fiber, have a lot of spices, or are highin fat. You can begin slowly eating these foods when you are feeling better. Be sure to drink plenty of fluids to ensure adequate hydration and overall better stent function. Activity: * Do NOT lift anything over 10 pounds for 2 weeks. * Do NOT drive or operate machinery if you are taking narcotic pain medicine. * You may take showers. * Take short frequent walks every day. Climbing stairs is OK. Special Instructions: * Smoking increases wound healing time. Please refrain, or at least, reduce smoking for 4 weeks. Ifyou would like a prescription for a nicotine patch, please contact your care provider who will be happy to help. FOLLOW UP: Dr. Concetta Thurston MD will call you to schedule follow-up for stent removal. If you do not hear from them, please call to schedule your appointment. A urethral stricture was found during the procedure. Follow up with one of our specialists, Dr. Yeager, will be scheduled in 3 months. Please call [phone] to schedule your appointment if you do not hear from them. * Attachments The following attachments cannot be sent through Care Everywhere. * Ureteral Stent Placement (Discharge Care) (Bhutanese) * General Anesthesia (Discharge Care) (Bhutanese) documented in this encounter Medications at Time [...] route every day 30 0 11/17/2015 4 fonwnpsf-qyf-ZS- lycopen-lutein (CENTRUM SILVER) 0.4-300-250 mg-mcg-mcg tablet 1 [...] 09/10/2015 0 documented as of this encounter Ordered Prescriptions Prescription Sig Dispense Quantity Refills Last Filled Start Date End Date HYDROcodone-acetam inophen (NORCO) 5-325 mg per tabletIndications: Pain Take 1 tablet by mouth every 6 (six) hours as needed for pain 5 tablet 01/17/2019 02/22/2020 documented in this encounter Discharge Disposition Disposition Code Departure Means Destination Discharge to home or self care documented in this encounter H&P Notes * Sonal Lee NP - 01/17/2019 8:11 AM CDT I have reviewed the H&P, examined the patient, and endorse the findings as written. Plan of Care : Based on the above findings, I consider Drew Newman to be an acceptable risk for : Procedure(s): URETEROSCOPY PLACEMENT STENT - URETERAL Cosigned by Concetta Thurston MD at 01/17/2019 10:28 AM CDT Associated attestation - Concetta Thurston MD - 01/17/2019 10:28 AM CDT The patient was seen and examined on 01/17/19. I agree with the below history, physical exam, findings, assessment and plan. Source Note - Castro Vergara MD - 01/08/2019 3:33 PM CDT [facility] for Preoperative Assessment and Planning Preoperative Evaluation Record [facility] at [facility] ([facility]) Date: 01/08/19 Anesthesia Evaluation Drew Newman is a 78 y.o. male Procedure(s): URETEROSCOPY PLACEMENT STENT - URETERAL Pre-Op Diagnosis Codes: * Nephrolithiasis [N20.0] HISTORY HPI Drew Newman is a 78 y.o. male who is being evaluated prior to undergoing ??URETEROSCOPY (Left Perineum) ?PLACEMENT STENT - URETERAL for Nephrolithiasis . Past Medical History Information obtained from: patient and chart. Neurological Neuro/Psych system: negative Cardiovascular + Hypertension Hypertension year diagnosed: 1999. Typical systolic BP - 130 Typical diastolic BP - 70 + CAD + CABG (denies HI, CABG post positive cardiac cath) - Prior CABG date: 2003. + CHF Diastolic function: stage I - impaired relaxation LVEF: 50-60%. + Current valvular disease - AR - mild-moderate; - mild; MR - mild; + Other arrhythmia (AV node Dysfunction, L ant fascicular block, 1st degree AV Block) - RBBB and other. + Pacemaker/ICD - dual lead ICD (atrioventricular, w/pacing functions). Brand: Hantele. Indication: sinus node dysfunction and atrioventricular block. Year inserted / last revised: 07/04/2017. Pacemaker dependent: unknown Pertinent negatives: HI ; atrial fibrillation; DVT/PE; drug-eluting stent(s); bare [...] with: Rashaun Riley MD Additional comments: Drew Newman is a 78 y.o. male who is [...] brand / type / location known: Yes ([employer]) 2. Cardiac Rhythm Device Communication Request form: [...] verbalized understanding. Please call the CPAP attending ([phone]) with any questions. Will retrieve 2017 Echo from [facility] in [place], [place] from logistics coordinator Dr. Pierce for chart completion. Blood bank needs for day of procedure: No type and screen needed Pending labs/tests include: BMP Preoperative evaluation performed by Domonique Keller NP on 01/08/19 at 5:09 PM. I have interviewed and examined the patient and agree with this Pre-Procedural Assessment performedby the above primary evaluating PERMIT COORDINATOR, who is currently in the CPAP PERMIT COORDINATOR Orientation interval. Signed by: Juany Andrew NP [...] mg tablet losartan (COZAAR) 100 mg tablet urvhmpou-cfm-OY-lycopen-lutein (CENTRUM SILVER) 0.4-300-250 mg-mcg-mcg tablet omega-3 fatty [...] ??? losartan (COZAAR) 100 mg tablet ??? zodhttgk-reg-RR-lycopen-lutein (CENTRUM SILVER) 0.4-300-250 mg-mcg-mcg tablet ??? omega-3 [...] Medication protocol when under care of a [facility] Planned anesthesia: General Team communication plan: LMA Induction: Induction: intravenous. Postoperative Plan: No plan for postoperative opioid use. Patient's planned disposition post procedure is Outpatient. Informed Consent: Discussed plan with [facility]. Anesthesia plan and risks discussed with patient. Plan and Consent Comments: Patient explained that given the preoperative cardiac/lung conditions he stands at higher than usual risk for cardiac/plumonary morbidity- that included possibility of arrhythmia, HI or need for postoperative ventilation/ICU care. Consent and Attending signature: I and/or my designee have discussed the anesthesia plan, benefits, possible alternatives, parental presence at time of induction (if indicated), and clinically relevant risks that may include dental injury, unintentional awareness, and/or other complications. The patient and/or parent/legal guardian understand, and agree to proceed. All questions answered. documented in this encounter Nursing Notes * Leigha Rendon RN - 01/17/2019 11:41 AM CDT 1140 - Discharge paperwork reviewed with patient and family at . No further questions. Pt and family verbalized understanding. Pt voided prior to DC. Pt tolerating PO w/o difficulties. No N/V/D. 1150 - pt walked to restroom again attempting to urinate. 1200- pt voided 25 mL of pink blood tinged urine. 1205 - pt discharged with family in wheelchair to front of hospital. IV removed, catheter intact. C/o chronic sciatic pain when ambulating. Prescriptions sent home with patient. * Julieta, Leigha Kumar RN - 01/17/2019 11:22 AM CDT Pt voided approx 50 cc of pink blood tinged urine. documented in this encounter Miscellaneous Notes * Op Note - Concetta Thurston MD - 01/17/2019 8:25 AM CDT Operative Report DATE OF SURGERY : 01/17/2019 SURGEON: Concetta Thurston MD SURGICAL TEAM: Surgeon(s) and Role: * Concetta Thurston MD - Primary * Teresita Littlejohn MD - Resident - Assisting ANESTHESIA: Monitor Anesthesia Care PREOPERATIVE DIAGNOSIS: Pre-op Diagnosis * Nephrolithiasis [N20.0] POSTOPERATIVE DIAGNOSIS: Post-op Diagnosis * Nephrolithiasis [N20.0] PROCEDURE: URETEROSCOPY (L), PLACEMENT STENT - URETERAL (L) INDICATION FOR PROCEDURE: 78 y.o. year old male with history of 4mm distal left ureteral and small renal stones presents for ureteroscopic stone extraction. Risks of the procedure including bleeding, infection, ureteral injury/stricture, need for additional procedures as well as stent symptoms were discussed with the patient. The patient understands and wishes to proceed. OPERATIVE FINDINGS: Distal left ureteral stone, multiple tiny calyceal stones No left hydronephrosis Soft bulbar urethral stricture PROCEDURE DETAILS: The patient was correctly identified and informed consent was obtained. ??The patient was taken to the operating room and placed in the dorsal lithotomy position. Intravenous antibiotics were administered for infection prophylaxis and bilateral SCDs were placed for DVT prophylaxis. The patient was prepped and draped in the usual sterile fashion. ??Rigid cystoscopy was performed. ??there was an approximately 10Fr bulbar urethral stricture noted that appeared short and soft. A [employer] guidewire was then passed into the bladder and alongside this a flexible cystoscope was passed. The bladder mucosa appeared mildly trabeculated, but otherwise normal. ??The left??ureteral orifice??was identified??and a Sensor??guidewire was passed into the kidney followed by a dual lumen catheter. ??Retrogradepyelogram revealed no hydronephrosis. ??A Superstiff guidewire was then placed through the dual lumen catheter. ??Semirigid distal ureteroscopy was performed and the stone was noted in the distal ureter. The stone was then fragmented with Holmium laser and the fragments removed with an N-gauge basket. Once the distal ureter was clear of stone, we drained the bladder with an 18Fr Councill tip catheter. Over the Sensor guidewire a flexible ureteroscope was passed. The collecting system was thoroughly and systematically inspected and there was noted to be tiny stone in the mid and lower calyces as well as Fredi's plaques throughout. The stones were then extracted with an N-gauge basket. Oncethe collecting system appeared free of stone, aside from those that were too small to fit within the basket and which will pass on their own, the ureteroscope was withdrawn, visualizing the ureter inits entirety upon removal. There were no ureteral injuries noted. Under direct vision a 6Fr x 28cm ureteral stent was placed with the proximal end coiling within the upper pole of the kidney and the distal end within the bladder. The bladder was then drained. The stones were sent for chemical analys is and culture. Over the Bentson wire, an 18Fr Councill tip catheter was placed; this will be removed in the PACU. The patient tolerated the procedure well. The patient will undergo stent removal in the office in 1-2 weeks. Specimens: Order Name Source Comment Collection Info Order Time URINE CULTURE 01/17/2019 6:31 AM Indications for Culture: Urology patient TISSUE AEROBIC CULTURE Kidney Left Kidney Stone for Routine Culture 01/17/2019 10:07 AM Is patient in the OR? Yes BASIC METABOLIC PANEL 01/08/2019 5:01 PM SURGICAL PATHOLOGY Calculus/calculi, gross and Chemical Analysis Collected By: Concetta Thurston MD 01/17/2019 10:05 AM Estimated Blood Loss: No blood loss documented. Fluoroscopy time: 22 seconds Intraoperative Fluids & Blood Products: 900 mls The instruments, needle and sponge count were found to be correct. Complications: None Condition on Discharge from the operating room was stable Concetta Thurston MD Date: 01/17/2019 Time: 10:17 AM PRESENCE STATEMENT : I was present and directly participated in the entire procedure (including opening and closing). documented in this encounter Plan of Treatment Scheduled Orders Name Type Priority Associated Diagnoses Orde r Schedule Urine culture Urine, clean voided Microbiology Routine Once for 1 O ccurrences starting 01/17/2019 until 01/17/2019 documented as of this encounter Procedures Procedure Name Priority Date/Time Associated Diagnosis Comments POCT GLUCOSE DEVICE Routine Gen Lab 01/17/2019 1 0:47 AM CDT FL FLUOROSCOPY < 1 HOUR IP Routine 01/17/2019 10:24 AM CDT SURGICAL PATHOLOGY Routine 01/17/2019 10 :03 AM CDT Nephrolithiasis TISSUE AEROBIC CULTURE Routine 01/17/2019 9:56 AM CDT PLACEMENT STENT - URETERAL 01/17/2019 8:31 AM CDT Nephrolithiasis Case Notes AUTH INFO ENTERED INTO SOARIAN J.S. 01/16/2019 Special Needs Homium Laser URETEROSCOPY 01/17/2019 8:31 AM CDT Nephrolithiasis Case Notes AUTH INFO ENTERED INTO SOARIAN J.S. 01/16/2019 Special Needs Homium Laser documented in this encounter Results * POCT glucose (01/17/2019 10:47 AM CDT) Glucose, POC 113 70 - 199 mg/dL RY VIVAR Blood specimen (specimen) 01/17/2019 10:47 AM CDT 01/17/2019 10:47 AM CDT Narrative RY VIVAR - 01/17/2019 10:59 AM CDT us Concetta Thurston MD LAB POCT ORDERABLES - D EVICE Final Result [facility] Department [place] [address] * FL Fluoroscopy < 1 Hour (01/17/2019 10:24 AM CDT) Narrative RAD_PACS_[facility] - 01/17/2019 10:25 AM CDT The images from this study are not interpreted by Radiology. ??Please refer to the physician's procedure / OR operative note. us Concetta Thurston MD IMG FLUOROSCOPY PROCEDU RES Final Result RAD_PACS_[facility] * Surgical pathology (01/17/2019 10:03 AM CDT) Tissue (Calculus/calculi /stone, gross and Chemical Analysis) 01/17/2019 10:03 AM CDT Narrative PATHOLOGY [facility] - 01/17/2019 2:31 PM CDT EPIC results best viewed via link to PDF [facility] [place] [address] SURGICAL PATHOLOGY REPORT FINAL WITH ADDENDUM Patient Name: ?? DREW NEWMANShayla Gender: ??M : ??1940 (Age: 78) Address: ??[address] [place] [address] ??[id number] Hospital #: ??[id number] Taken:01/17/2019 Received:01/17/2019 Reported: 01/17/2019 Patient Type: BJ SDS ?? Service: Surgery Location: [facility] Physician(s): ??Juve Crook M.D. Diagnosis: Kidney, left, stone, removal ? - Lithiasis (gross examination only, sent for chemical analysis) mr2/01/17/2019 13:54 By this signature, I attest that the above diagnosis is based upon my personal examination of the slides(and/or other material indicated in the diagnosis). Bhavani Walsh M.D. Report Electronically Reviewed and Signed Out By ??Bhavani Walsh M.D. 01/17/2019 14:31:46 History: The patient is a 78-year-old man with nephrolithiasis. ??Operative procedure: Left ureteroscopy and left ureteral stent placement. Specimen(s) Received: A: Left kidney for chemical analysis Gross Description: Received fresh in one container labeled with the patient's name and left kidney stone for chemical analysis are five roughened and irregularly shaped, brown- black calculi ranging in greatest dimension from 0.4-0.2 cm, and with an aggregate measurement of 0.7 x 0.6 x 0.3 cm. ??The specimen is submitted entirely for chemical analysis. ??Jar 0. mr2/01/17/2019 13:52 Tabby Garces MS, PA (ASC By this signature, I attest that the above diagnosis is based upon my personal examination of the slides(and/or other material). Addenda/Procedures Addendum Ordered: 01/25/2019 Status: Signed Out Addendum Complete: 01/25/2019 By: Bhavani Walsh M.D. Addendum Signed Out: 01/25/2019 ?? Addendum Diagnosis A digital scan of the original reference lab report will begin on page two of this addendum. By this signature, I attest that the above diagnosis is based upon my personal examination of the slides(and/or other material indicated in the diagnosis). ?? Bhavani Walsh M.D. ??Report Electronically Reviewed and Signed Out By ??Bhavani Walsh M.D. ??01/25/2019 14:46:55 ? The Stone Chemical Analysis test was performed at [facility], [facility], [address] [place] [address]. The performance characteristics of some immunohistochemical stains, fluorescence in-situ hybridization tests and immunophenotyping by flow cytometry cited in this report (if any) were determined by the Surgical Pathology Department at [facility] as part of an ongoing water quality assistant program and in compliance with federally mandated regulations drawn from the Clinical Laboratory Improvement Act of 1988 (CLIA '88). ??Some of these tests rely on the use of analyte specific reagents and are subject to specific labeling requirements by the US Food and Drug Administration. ??Such diagnostic tests may only be performed in a facility that is certified by the Department of Health and Human Services as a high complexity laboratory under CLIA '88. ??The FDA has determined that such clearance or approval is not necessary. ??This test is used for clinical purposes. ??It should not be regarded as investigational or for research. ??Nevertheless, federal rules concerning the medical use of analyte specific reagents require that the following disclaimer be attached to the report: This test was developed and its performance characteristics determined by the Surgical Pathology Department of [facility]. ??It has not been cleared or approved by the U. S. Food and Drug Administration. IMAGES AND SCANNED DOCUMENTS, IF INCLUDED, ONLY VIEWABLE IN PDF VERSION OF REPORT Concetta Thurston MD LAB PATHOLOGY ORDERABLE S Final Result PATHOLOGY [facility] 3rd Floor [place], [place] [phone] * Tissue aerobic culture Stone Kidney, left (01/17/2019 9:56 AM CDT) Report Final Report: No growth [facility] Stone (Kidney, left) 01/17/2019 9:56 AM CDT 01/17/2019 11:51 AM CDT Narrative [facility] - 01/19/2019 7:27 AM CDT Left Kidney Stone for Routine Culture Testing performed by [facility] Microbiology Laboratory ([phone]) Specimens submitted from normally sterile body sites will have all bacterial morphotypes identified. Specimens that contain grossly mixed katie and/or are from body sites that are not normally sterile will be examined for Staphylococcus aureus, Pseudomonas aeruginosa, beta-hemolytic strep, vancomycin-resistant Enterococcus and fungus. If any of these are isolated, the organism will be reported. Current interpretive data was last revised on 2017. Concetta Thurston MD LAB MICROBIOLOGY - GENE RAL ORDERABLES Final Result [facility] Department [place] [address] documented in this encounter Visit Diagnoses Diagnosis Nephrolithiasis- Primary Calculus of kidney documented in this encounter Admitting Diagnoses Diagnosis Nephrolithiasis Calculus of kidney documented in this encounter Administered Medications Inactive Administered Medications - up to 3 most recent administrations Medication Order MAR Action Action Date Dose Rate Site acetaminophen (TYLENOL) tablet 1,000 mg 1,000 mg, oral, Once, On Tue01/17/19 at 0715, For 1 dose, Pre-Op, Indications: Pre-Emptive AnalgesiaIndications:Pre-Emptiv e Analgesia Given 01/17/2019 7:02 AM CDT 1,000 mg Lactated Ringer's (LR) infusion 30 mL/hr, intravenous, Continuous, Starting on Tue01/17/19 at 0715, Pre-Op New Bag 01/17/2019 10:18 AM CDT New Bag 01/17/2019 8:29 AM CDT Lactated Ringer's (LR) infusion 30 mL/hr, intravenous, Continuous, Starting on Tue01/17/19 at 0715, Pre-Op New Bag 01/17/2019 7:09 AM CDT 30 mL/hr 30 mL/hr sodium chloride 0.9% flush 0.5-20 mL 0.5-20 mL, intra-catheter, As needed, line care, Starting on Tue01/17/19 at 0631, Pre-Op, Flush volume based on line type and size. Flush before and after each use. documented in this encounter Active and Recently Administered Medications Times are shown in CDT. Scheduled Medication Order 01/15/2019 01/16/2019 01/17/2019 acetaminophen (TYLENOL) tablet 1,000 mg (COMPLETED) 1,000 mg, oral, Once, On Tue01/17/19 at 0715, For 1 dose, Pre-Op, Indications: Pre-Emptive Analgesia 0702 (Given - Provid er: Ramonita Ruggiero RN) Continuous Medication Order 01/15/2019 01/16/2019 01/17/2019 Lactated Ringer's (LR) infusion 30 mL/hr, intravenous, Continuous, Starting on Tue01/17/19 at 0715, Pre-Op 0829 (New Bag - Prov ider: Oxana Nolan CRNA)1018 (New Bag - Provider: Oxana Nolan CRNA)1024 (Stopped - Provider: Oxana Nolan CRNA) Lactated Ringer's (LR) infusion 30 mL/hr, intravenous, Continuous, Starting on Tue01/17/19 at 0715, Pre-Op 0709 (New Bag - Prov ider: Ramonita Ruggiero RN) PRN Medication Order 01/15/2019 01/16/2019 01/17/2019 diphenhydrAMINE (BENADRYL) injection 12.5 mg 12.5 mg, intravenous, Administer over 2 Minutes, Every 15 min PRN, itching, Starting on Tue01/17/19 at 1041, For 2 doses, Phase I, Max cumulative dose 50 mg., Indications: Itching fentaNYL (SUBLIMAZE) preservative free injection 25 mcg 25 mcg, intravenous, Every 10 min PRN, 1st line for pain, Starting on Tue01/17/19 at 1041, Phase I, Switch to 2nd line analgesic order if pain is uncontrolled or increasing after 2 doses. Notify Anesthesiologist if total PACU dose reaches 100 mcg and pain score 5/10 or more., Indications: Pain fentaNYL (SUBLIMAZE) preservative free injection 50 mcg 50 mcg, intravenous, Every 10 min PRN, 2nd line for pain, Starting on Tue01/17/19 at 1041, Phase I, May administer 10 mintes after 2nd dose of 1st line analgesic agent for uncontrolled or increasing pain. Revert to 1st line dose if POSS of 3. Notify Anesthesiologist if total PACU dose reaches 100 mcg and pain score 5/10 or more., Indications: Pain ioversol (OPTIRAY 320) injection (CANCELED) As needed, Starting on Tue01/17/19 at 0818, Intra-Op 0818 (Given - Provid er: Teresita Littlejohn MD) meperidine (DEMEROL) preservative free injection 12.5 mg 12.5 mg, intravenous, Every 10 min PRN, shivering, Starting on Tue01/17/19 at 1041, For 2 doses, Phase I, Max cumulative dose 25 mg., Indications: Shivering metoclopramide (REGLAN) injection 10 mg 10 mg, intravenous, Administer over 1 Minutes, Once as needed, nausea, vomiting, Starting on Tue01/17/19 at 1041, For 1 dose, Phase I, If nausea/vomiting not relieved by ondansetron within 30 minutes or if ondansetron has been given within the last 6 hours. naloxone (NARCAN) 0.4 mg/mL injection 0.04-0.4 mg 0.04-0.4 mg, intravenous, Once as needed, other, excessive sedation/respiratory depression, Starting on Tue01/17/19 at 1041, For 1 dose, Phase I, Dilute 0.4 mg with 9 mL NS (final concentration 0.04 mg/mL). For respiratory depression (respiratory rate less than 6), administer 0.4 mg IVP over 30 seconds. For excessive sedation administer 0.04 mg (1 mL) every 1 minute until desired level of alertness. For IV, administer over 30 seconds., Indications: Opioid Toxicity ondansetron (ZOFRAN) injection 4 mg 4 mg, intravenous, Administer over 2 Minutes, Once as needed, nausea, vomiting, Starting on Tue01/17/19 at 1041, For 1 dose, Phase I, Proceed to metoclopramide if ondansetron has been given within the last 6 hours. sodium chloride 0.9 % irrigation (CANCELED) As needed, Starting on Tue01/17/19 at 0823, Intra-Op 0823 (Given - Provid er: Teresita Littlejohn MD)0829 (Given - Provider: Teresita Littlejohn MD) sodium chloride 0.9% flush 0.5-20 mL 0.5-20 mL, intra-catheter, As needed, line care, Starting on Tue01/17/19 at 0631, Pre-Op, Flush volume based on line type and size. Flush before and after each use. sodium chloride 0.9% flush 0.5-20 mL 0.5-20 mL, intra-catheter, As needed, line care, Starting on Tue01/17/19 at 0631, Pre-Op, Flush volume based on line type and size. Flush before and after each use. documented in this encounter Orders Medications Ordered That Addy ht Not Have Been Administered Count Last Ordered Date First Ordered Date diphenhydrAMINE (BENADRYL) i njection 12.5 mg 1 01/17/2019 fentaNYL (SUBLIMAZE) preserv ative free injection 25 mcg 1 01/17/2019 fentaNYL (SUBLIMAZE) preserv ative free injection 50 mcg 01/17/2019 ioversol (OPTIRAY 320) injection 1 01/18/20 19 Lactated Ringer's (LR) infusion 9 meperidine (DEMEROL) preserv ative free injection 12.5 mg 1 01/17/2019 metoclopramide (REGLAN) injection 10 mg 1 0 01/17/2019 naloxone (NARCAN) 0.4 mg/mL injection 0.04-0.4 mg 1 01/17/2019 ondansetron (ZOFRAN) injection 4 mg 1 01/17 sodium chloride 0.9 % irrigation 1 01/18/20 19 sodium chloride 0.9% flush 0.5-20 mL 2 01/01 documented in this encounter Care Teams Tongue Presser Relationship Specialty Start Date End Date Say Low MD [address] [place] [id number] PCP - General 02/15/17 documented as of this encounter
--- OUTSIDE RECORDS SUMMARY | 2024-09-22 19:07 | XMS_ITS | Encounter Summary ---
Author Organization [facility] Facility Care Team Providers Care Production Posting Clerk Name Role Phone Say Low MD Primary Care Provider [phone] Encounter Details Date Type Department Care Team (Latest Contact Info) Description 01/08/2019 Travel Social History Tobacco Use Types Packs/Day Years Used Date Smoking Tobacco: Former Cigarettes 3 22.6 1 961 - 04/29/1983 Smokeless Tobacco: Never Alcohol Use Standard Drinks/Week Comments No 0 (1 standard drink = 0.6 oz pur e alcohol) Sex and Gender Information Value Date Recorded Sex Assigned at Not on file 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
--- OUTSIDE RECORDS SUMMARY | 2024-09-22 19:07 | XMS_ITS | Encounter Summary ---
Author Organization [facility] Address [address] [place] [address] Care Team Providers Care Communication Consultant Name Role Phone Say Low MD Primary Care Provider [phone] Reason for Visit * Reason Onset Date Comments Missed Latitude 11/01/2018 Encounter Details Date Type Department Care Team (Late st Contact Info) Description 11/01/2018 Telephone Arrhythmia Center [address] [place] [address] Wayne Davis MD [address] [facility] [address] [place] [address] Missed Latitude Social History Tobacco Use Types Packs/Day Years Used Date Smoking Tobacco: Former Cigarettes Q uit: 04/29/1983 Smokeless Tobacco: Former Alcohol Use Standard Drinks/Week Comments No 0 (1 standard drink = 0.6 oz pur e alcohol) Sex and Gender Information Value Date Recorded Sex Assigned at Not on file 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 Will send manual transmission when back home. TRUING MACHINE OPERATOR documented in this encounter Plan of Treatment Not on file documented as of this encounter Visit Diagnoses Not on filedocumented in this encounter Care Teams Communication Consultant Relationship Specialty Start Date End Date Say Low MD [address] [facility] [address] [place] [phone] PCP - General 02/15/17 documented as of this encounter
--- OUTSIDE RECORDS SUMMARY | 2024-09-22 19:07 | XMS_ITS | Encounter Summary ---
Author Organization [facility] Address [address] [place] [address] Care Team Providers Care Tin Stacker Name Role Phone Say Low MD Primary Care Provider [phone] Reason for Visit * Reason Onset Date Comments routine Latitude remote 01/16/2018 Encounter Details Date Type Department Care Team (Late st Contact Info) Description 01/16/2018 Documentation [facility] [place] [address] [place] [address] Patrick Taylor MD [address] [facility] [address] [place] [address] routine Latitude remote Social History Tobacco Use Types Packs/Day Years Used Date Smoking Tobacco: Former Cigarettes Q uit: 04/29/1983 Smokeless Tobacco: Former Alcohol Use Standard Drinks/Week Comments No 0 (1 standard drink = 0.6 oz pur e alcohol) Sex and Gender Information Value Date Recorded Sex Assigned at Not on file Legal 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 Interrogation of the patient???s device demonstrates Appropriate DDD pacer function Appropriate battery voltage, Stable lead impedances, Stable atrial sensing TH (6) atrial arrhythmias noted. Brief A flutter < 1 minute in duration, < 1 % (0) ventricular arrhythmias noted. AP-14 %, RV paced 99 % Presenting-Atrial tracking Battery-BOLV, 8 years to SOFI, Atrial-6.3 mv, 517 ohms, RV-514 ohms, Plan: 1) Latitude remote DDD pacemaker evaluation as noted above. 2) In office check is scheduled for April Candice Estrada RN, FHRS, CCDS-Arrhythmia Device Specialist documented in this encounter Plan of Treatment Not on file documented as of this encounter Visit Diagnoses Not on filedocumented in this encounter Care Teams Tin Stacker Relationship Specialty Start Date End Date Say Low MD [address] [facility] [address] [place] [address] PCP - General 02/15/17 documented as of this encounter
--- OUTSIDE RECORDS SUMMARY | 2024-09-22 19:07 | XMS_ITS | Encounter Summary ---
Author Organization [facility] Address [address] [place] [address] Care Team Providers Care Nurse Researcher Name Role Phone Say Low MD Primary Care Provider [phone] Encounter Details Date Type Department Care Team (Late st Contact Info) Description 07/17/2018 [place] [facility] [place] [address] [place] [address] Patrick Taylor MD [address] [facility] [address] [place] [address] Social History Tobacco Use Types Packs/Day Years Used Date Smoking Tobacco: Former Cigarettes Q uit: 04/29/1983 Smokeless Tobacco: Former Alcohol Use Standard Drinks/Week Comments No 0 (1 standard drink = 0.6 oz pur e alcohol) Sex and Gender Information Value Date Recorded Sex Assigned at Not on file 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 documented in this encounter Plan of Treatment Not on file documented as of this encounter Visit Diagnoses Not on filedocumented in this encounter Care Teams Nurse Researcher Relationship Specialty Start Date End Date Say Low MD [address] [facility] [address] [place] [address] PCP - General 02/15/17 documented as of this encounter
--- OUTSIDE RECORDS SUMMARY | 2024-09-22 19:07 | XMS_ITS | Encounter Summary ---
Author Organization [facility] Address [address] [place] [address] Care Team Providers Care Property Management Assistant Name Role Phone Say Low MD Primary Care Provider [phone] Encounter Details Date Type Department Care Team (Late st Contact Info) Description 01/17/2019 8:25 AM CDT - 01/17/2019 11:55 AM CDT Surgery [facility] Operating Room [address] [place] [address] Concetta Thurston MD [address] [place], [place] [phone] URETEROSCOPY Surgery Details Date/Time Status Location OR Service Patient Class Case Cl ass Case Type Trauma Case? 01/17/2019 8:25 AM Posted [facility] OR POD 1 324 Urology Outpatient Elective Panel 1 Procedure LRB Anes Op Region Wound Class Comments URETEROSCOPY Left Monitor Anesthes ia Care Perineum Class II - Clean Contaminated PLACEMENT STENT - URETERAL Left Choice Ureter Class II - Clean Contaminated Surgeon Surgeon Role Service Panel Concetta Thurston MD Primary Urology 1 Teresita Littlejohn MD Resident - Assisting Minor P rocedures 1 Case Notes AUTH INFO ENTERED INTO [employer] 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 Please call to schedule your appointment if you do not hear from them. * Attachments The following attachments cannot be sent through Care Everywhere. * Ureteral Stent Placement (Discharge Care) ([place]) * General Anesthesia (Discharge Care) ([place]) documented in this encounter Medications at Time [...] route every day 30 0 11/17/2015 4 hybsvaea-ryr-NZ- lycopen-lutein (CENTRUM SILVER) 0.4-300-250 mg-mcg-mcg tablet 1 [...] Preoperative Evaluation Record CPAP Clinic at [facility] ([facility]) Date: 01/08/19 Anesthesia Evaluation Drew Newman is [...] - 72 + CAD + CABG (denies GA, CABG post positive cardiac cath) - Prior CABG date: 2003. + CHF Diastolic function: stage I - impaired relaxation LVEF: 50-60%. + Current valvular disease - AR - mild-moderate; - mild; MR - mild; + Other arrhythmia (AV node Dysfunction, L ant fascicular block, 1st degree AV Block) - RBBB and other. + Pacemaker/ICD - dual lead ICD (atrioventricular, w/pacing functions). Brand: Solavei. Indication: sinus node dysfunction and atrioventricular block. Year inserted / last revised: 07/04/2017. Pacemaker dependent: unknown Pertinent negatives: GA ; atrial fibrillation; DVT/PE; drug-eluting stent(s); bare [...] brand / type / location known: Yes ([employer]) 2. Cardiac Rhythm Device Communication Request form: [...] verbalized understanding. Please call the CPAP attending ([phone]) with any questions. Will retrieve 2017 Echo from [facility] in [place], [place] from internet consultant Dr. Pierce for chart completion. Blood bank needs for day of procedure: No type and screen needed Pending labs/tests include: BMP Preoperative evaluation performed by Domonique Keller NP on 01/08/19 at 5:09 PM. I have interviewed and examined the patient and agree with this Pre-Procedural Assessment performedby the above primary evaluating CARPENTER ROUGH, who is currently in the CPAP CARPENTER ROUGH Orientation interval. Signed by: Juany Andrew NP [...] mg tablet losartan (COZAAR) 100 mg tablet omdqmknf-vkz-XI-lycopen-lutein (CENTRUM SILVER) 0.4-300-250 mg-mcg-mcg tablet omega-3 fatty [...] ??? losartan (COZAAR) 100 mg tablet ??? ajixkxit-brl-TW-lycopen-lutein (CENTRUM SILVER) 0.4-300-250 mg-mcg-mcg tablet ??? omega-3 [...] Medication protocol when under care of a BUSINESS RELATIONS MANAGER Planned anesthesia: General Team communication plan: LMA Induction: Induction: intravenous. Postoperative Plan: No plan for postoperative opioid use. Patient's planned disposition post procedure is Outpatient. Informed Consent: Discussed plan with BUSINESS RELATIONS MANAGER. Anesthesia plan and risks discussed with patient. Plan and Consent Comments: Patient explained that given the preoperative cardiac/lung conditions he stands at higher than usual risk for cardiac/plumonary morbidity- that included possibility of arrhythmia, GA or need for postoperative ventilation/ICU care. Consent [...] documented in this encounter Nursing Notes * Daily, Leigha Kumar RN - 01/17/2019 11:41 AM CDT [address] [...] ambulating. Prescriptions sent home with patient. * Leigha Rendon RN - 01/17/2019 11:22 AM CDT Pt [...] noted that appeared short and soft. A Bentson guidewire was then passed into the bladder [...] Glucose, POC 113 70 - 199 mg/dL [facility] Blood specimen (specimen) 01/17/2019 10:47 AM CDT 01/17/2019 10:47 AM CDT Narrative R[facility] - 01/17/2019 10:59 AM CDT Concetta Thurston MD LAB POCT ORDERABLES - D EVICE Final Result Performing Organization Address City/[facility] Co de Phone Number RY [facility] Department [place] [address] * FL Fluoroscopy < 1 Hour (01/17/2019 10:24 AM CDT) Narrative RAD_PACS_[facility] - 01/17/2019 10:25 AM CDT The images from this study are not interpreted by Radiology. ??Please refer to the physician's procedure / OR operative note. Concetta Thurston MD IMG FLUOROSCOPY PROCEDU RES Final Result Performing Organization Address [facility] Co de Phone Number [email or web address] * Surgical pathology (01/17/2019 10:03 AM CDT) Tissue (Calculus/calculi /stone, gross and Chemical Analysis) 01/17/2019 10:03 AM CDT Narrative PATHOLOGY [facility] - 01/17/2019 2:31 PM CDT EPIC results best viewed via link to PDF [facility] Susan Mccurdy Laboratory of Surgical [place] [address] SURGICAL PATHOLOGY REPORT FINAL WITH ADDENDUM Patient Name: ?? DREW NEWMAN Gender: ??M : ??1940 (Age: 78) Address: ??[address] [place], [place] ??[address] Hospital #: ??[id number] Taken:01/17/2019 Received:01/17/2019 Reported: 01/17/2019 Patient Type: [facility] SDS ?? Service: Surgery [facility] Physician(s): ??Juve Crook M.D. Diagnosis: Kidney, left, [...] Stone Chemical Analysis test was performed at [facility], [facility], [address] [place] [address]. The performance characteristics of some immunohistochemical stains, fluorescence in-situ hybridization tests and immunophenotyping by flow cytometry cited in this report (if any) were determined by the Surgical Pathology Department at [facility] as part of an ongoing quality assurance specialist program and in compliance with federally mandated [...] determined by the Surgical Pathology Department of [facility]. ??It has not been cleared or approved by the U. S. Food and Drug Administration. IMAGES AND SCANNED DOCUMENTS, IF INCLUDED, ONLY VIEWABLE IN PDF VERSION OF REPORT Concetta Thurston MD LAB PATHOLOGY ORDERABLE S Final Result PATHOLOGY [facility] 3rd Floor [place], [place] [phone] * Tissue aerobic culture Stone Kidney, left (01/17/2019 9:56 AM CDT) Report Final Report: No growth [facility] Stone (Kidney, left) 01/17/2019 9:56 AM CDT 01/17/2019 11:51 AM CDT Narrative RY [facility] - 01/19/2019 7:27 AM CDT Left Kidney Stone for Routine Culture Testing performed by [facility] Microbiology Laboratory ([phone]) Specimens submitted from normally sterile body sites will have all bacterial morphotypes identified. Specimens that contain grossly mixed katie and/or are from body sites that are not normally sterile will be examined for Staphylococcus aureus, Pseudomonas aeruginosa, beta-hemolytic strep, vancomycin-resistant Enterococcus and fungus. If any of these are isolated, the organism will be reported. Current interpretive data was last revised on 2017. us Concetta Thurston MD LAB MICROBIOLOGY - GENE RAL ORDERABLES Final Result [facility] Department [place] [address] documented in this encounter Visit Diagnoses Diagnosis [...] 0715, For 1 dose, Pre-Op, Indications: Pre-Emptive AnalgesiaIndications:Pre- Emptive Analgesia Given 01/17/2019 7:02 AM CDT 1,000 mg ioversol (OPTIRAY 320) injection As needed, Starting on Tue01/17/19 at 0818, Intra-Op Given 01/17/2019 8:18 AM CDT 50 mL Surgical Site Lactated Ringer's (LR) infusion 30 mL/hr, intravenous, Continuous, Starting on Tue01/17/19 at 0715, Pre-Op New Bag 01/17/2019 10:18 AM CDT New Bag 01/17/2019 8:29 AM CDT Lactated Ringer's (LR) infusion 30 mL/hr, intravenous, Continuous, Starting on Tue01/17/19 at 0715, Pre-Op New Bag 01/17/2019 7:09 AM CDT 30 mL/hr 30 mL/hr sodium chloride 0.9 % irrigation As needed, Starting on Tue01/17/19 at 0823, Intra-Op Given 01/17/2019 8:29 AM CDT 3,000 mL Surgical Site Given 01/17/2019 8:23 AM CDT 1,000 mL Santos rgical Site sodium chloride 0.9% flush 0.5-20 mL [...] (SUBLIMAZE) preserv ative free injection 50 mcg 1 01/17/2019 Lactated Ringer's (LR) infusion 1 9 meperidine (DEMEROL) preserv ative free injection 12.5 mg 1 01/17/2019 metoclopramide (REGLAN) injection 10 mg 1 0 01/17/2019 naloxone (NARCAN) 0.4 mg/mL injection 0.04-0.4 mg 1 01/17/2019 ondansetron (ZOFRAN) injection 4 mg 1 01/17 sodium chloride 0.9% flush 0.5-20 mL 2 01/01 documented in this encounter Care Teams Property Management Assistant Relationship Specialty Start Date End Date Say Low MD [address] [facility] [address] [place] [address] PCP - General 02/15/17 documented as of this encounter
--- OUTSIDE RECORDS SUMMARY | 2024-09-22 19:07 | XMS_ITS | Encounter Summary ---
Author Organization [facility] Address [address] [place] [address] Phone Care Team Providers Care Critical Care Rn Name Role Phone Say Low MD Primary Care Provider [phone] Reason for Visit * Reason Comments Nephrolithiasis * Consultation (Routine) - Closed Specialty Diagnoses / Procedures Referred By Yary silveira Referred To Contact Urology Diagnoses Nephrolithiasis Concetta Thurston MD Phone: tel: fax: Referral ID Status Reason Start Date Expiration Date V isits Requested Visits Authorized [id number] Closed Specialty Services Required 07/11/2018 01/20/2020 99 99 Encounter Details Date Type Department Care Team (Late st Contact Info) Description 01/04/2019 9:50 AM CDT Office Visit [place] [facility] - [facility] Urology [address] [facility] Advanced Medicine 11th [place] [address] [place] [phone] Concetta Thurston MD [address] [place] [address] Nephrolithiasis (Primary Dx) Social History Tobacco Use Types Packs/Day Years Used Date Smoking Tobacco: Former Cigarettes Q uit: 04/29/1983 Smokeless Tobacco: Former Alcohol Use Standard Drinks/Week Comments No 0 (1 standard drink = 0.6 oz pur e alcohol) Sex and Gender Information Value Date Recorded Sex Assigned at Not on file 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 male with chief complaint of urolithiasis. HPI: Drew Pak 78 y.o. here for urolithiasis. He is sp left SWL for 8mm L LP stone. ??Followup KUB showed remaining stone. ??The patient is currently asymptomatic and denies flank pain, fever, chills, nausea, vomiting or hematuria. ?? He did not complete rpeat imaging prior to visit. ?? Initial??24 hour ua showed 2.58L, calcium 215, sodium 188, oxalate 49, citrate 461, pH 5.7. ?? He was started on Urocit K, however, he discontinued and began taking OTC potassium, with repeat 24h ua: ?? 24 hour ua 05/2018 showed 2.41L, calcium 154, sodium 132, oxalate 46, citrate 261, pH 5.2, elevated supersaturation of uric acid. He was started on Urocit K last visit. CT shows multiple bilateral stnoes, the largest 5mm in the distal left ureter, no hydronephrosis. He has had urinary frequency for the past several weeks in the morning only for approximately one hour. He denies flank pain, hematuria, fever, chills, nausea, vomiting or dysuria. Past Medical History: Diagnosis Date ??? 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 Smoking status: Former Smoker Last attempt to quit: 04/29/1983 Years since quittin.7 ??? Smokeless tobacco: Former User Substance Use Topics ??? Alcohol use: No [...] Review of Systems: Review of Systems Constitutional: Positive for fever. Negative for chills. HENT: Negative. Eyes: Negative. Respiratory: Negative. Cardiovascular: Negative. Gastrointestinal: Negative. Endocrine: Negative. Genitourinary: Positive for frequency. Negative for flank pain, hematuria and urgency. Musculoskeletal: Negative. Skin: Negative. Allergic/Immunologic: Negative. Neurological: [...] result(s) and agree with the radiologist's report. EXAMINATION: Computed tomography of the abdomen and pelvis without intravenous contrast ?? HISTORY: 78-year-old man with urolithiasis and a history of prior left shockwave lithotripsy for an 8 mm left lower pole stone. Patient is currently on observation. ?? TECHNIQUE: Transaxial computed tomographic images of the abdomen and pelvis were obtained without intravenous contrast according to the standard protocol. ?? COMPARISON: CT abdomen pelvis from 02/11/2017. ?? FINDINGS: The visualized portions of the lung bases are notable for minimal bibasilar atelectasis. The heart is mildly enlarged. Left ventricular and left atrial pacemaker leads are partially visualized. Severe coronary artery calcifications are present. There is no pericardial effusion. Median sternotomy wires are partially visualized. There is a small hiatal hernia. ?? The liver is small, nodular and with periportal widening, consistent with cirrhosis. No focal hepatic lesions are identified on this noncontrast examination. The spleen, pancreas, bilateral adrenal glands, and gallbladder are normal. ?? There is a cyst arising from the superior pole of the left kidney, unchanged when compared to the prior examination. There is a 2 mm nonobstructing stone at the superior pole of the left kidney. There is an additional 2 mm nonobstructing renal stone at the inferior pole of the left kidney, likely a fragment of the previous larger stone at the location seen on the 02/01/2017 examination. There is a 5 mm stone within the distal left ureter just proximal to the left ureterovesical junction (slice position -228.5). There is no left hydro-ureter or hydronephrosis. ?? There is a 3 mm nonobstructing stone at the inferior pole of the right kidney (slice position -58.5), unchanged. There are two adjacent nonobstructing renal stones in the inferior pole of the right kidney (slice positions -68.5, -70,5) which measure 2 mm each and are unchanged. The previously noted stone in the right mid zone has resolved in the interim. There is no right hydroureter or hydronephrosis. ?? The prostate is mildly enlarged. The bladder is normal. ?? The colon is normal in course and caliber. There is diverticulosis but no evidence of diverticulitis. The appendix is normal. There is no evidence of small bowel obstruction. There is a small bowel containing umbilical hernia without evidence of obstruction, unchanged. There is no free intraperitoneal air or free fluid. ?? There is moderate atherosclerotic calcification of the abdominal aorta. The aorta is normal in caliber. There is no retroperitoneal, mesenteric, iliac, or inguinal lymphadenopathy. ?? There are degenerative changes of the lumbar spine. A bone island is noted in the right ischium. No destructive osseous lesions are identified. ? IMPRESSION: 1. Multiple bilateral nonobstructing renal stones as described above. The largest stone is 5 mm in size in the distal left ureter but with without obstruction. ?? Dictated by: Kiran Cowart M.D. Drew Pak 78 y.o. here for urolithiasis. FURTHER DIAGNOSTICS: Imaging: Renal US prior to next visit 24 hour ua after surgery, on Urocit K TREATMENT RECOMMENDATIONS: Analgesics as needed Continue current regimen Behavioral: Recommend fluid intake to make approximately 2-3 liters of urine per day Discussed ureteroscopic stone extraction and risks including bleeding, infection, ureteral injury/stricture, failure to eradicate stones, need for additional procedures, as well as benefits and alternatives to the procedure. Plan left URS, approached for Stents study. FOLLOW-UP: Report intensification of symptoms to my office or go to the emergency room for intractable pain, associated fever, chills, nausea, vomiting or hematuria. Will contact patient to schedule surgery. documented in this encounter Plan of Treatment Not on file documented as of this encounter Procedures Procedure Name Priority Date/Time Associated Diagnosis Comments POCT URINALYSIS DIPSTICK Routine 01/04/2019 9:43 AM CDT Nephrolithiasis documented in this encounter Results * Urine culture Urine, clean voided (01/04/2019 2:25 PM CDT) Report Final Report: Less than 100,000 colonies/mL (clinically insignificant growth based on current clinical standards) [facility] Organism (CLINICALLY INSIGNIFICANT GROWTH [facility] Urine, clean voided 01/04/2019 2:25 PM CDT 01/04/2019 4:34 PM CDT Narrative [facility] - 01/05/2019 9:06 PM CDT Testing performed by [facility] Microbiology Laboratory ([phone]) us Concteta Thurston MD LAB MICROBIOLOGY - [facility] ORDERABLES Final Result [facility] Department [place] [address] * (ABNORMAL) POCT urinalysis dipstick (01/04/2019 9:43 AM CDT) Color, Urine, POC Yellow Clarity, ur, POC Clear Clear Glucose, ur, POC 500.(A) Negative mg/dL Ketones, ur, POC Negative Negative Blood, ur, POC Negative Negative pH, ur, POC 5.0 5.0 - 8.0 Protein, ur, POC Negative Negative Nitrite, ur, POC Negative Negative Leukocytes, ur, POC Negative Negative Lot Number [id number] Urine 01/04/2019 9:43 AM CDT Concetta Thurston MD POINT OF CARE TEST CHARISSE FAYEPRAKASH Final Result documented in this encounter Visit Diagnoses Diagnosis Nephrolithiasis- Primary Calculus of kidney Nephrolithiasis Calculus of kidney documented in this encounter Orders Outpatient Referral Count Last Ordered Date Fir st Ordered Date AMB REFERRAL TO UROLOGY 1 01/04/2019 documented in this encounter Care Teams Critical Care Rn Relationship Specialty Start Date End Date Say Low MD [address] [facility] [address] [place] [address] PCP - General 02/15/17 documented as of this encounter
--- OUTSIDE RECORDS SUMMARY | 2024-09-22 19:07 | XMS_ITS | Encounter Summary ---
Author Organization [facility] Address [address] [place] [address] Care Team Providers Care Kohinoor Operator Name Role Phone Say Low MD Primary Care Provider [phone] Reason for Visit * Reason Onset Date Comments CRMD Worksheet 01/09/2019 Encounter Details Date Type Department Care Team (Late st Contact Info) Description 01/09/2019 Telephone Arrhythmia Center [address] [place] [address] Wayne Davis MD [address] [facility] [address] [place] [address] CRMD Worksheet Social History Tobacco Use Types Packs/Day Years Used Date Smoking Tobacco: Former Cigarettes 3 22.6 1 961 - 04/29/1983 Smokeless Tobacco: Never Alcohol Use Standard Drinks/Week Comments No 0 (1 standard drink = 0.6 oz pur e alcohol) Sex and Gender Information Value Date Recorded Sex Assigned at Not on file 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 documented in this encounter Plan of Treatment Not on file documented as of this encounter Visit Diagnoses Not on filedocumented in this encounter Care Teams Kohinoor Operator Relationship Specialty Start Date End Date Say Low MD [address] [facility] [address] [place] [id number] PCP - General 02/15/17 documented as of this encounter
--- OUTSIDE RECORDS SUMMARY | 2024-09-22 19:07 | XMS_ITS | Encounter Summary ---
Author Organization [facility] Address [address] [place] [address] Care Team Providers Care Farmer Vegetable Name Role Phone Say Low MD Primary Care Provider Encounter Details Date Type Department Care Team (Late st Contact Info) Description 05/31/2018 11:55 AM CDT Lab [facility] Advanced Medicine [facility] Medicine ([facility]) [address] [place] [phone] Patrick Olmos MD [address] [facility] [id number] [place] [address] Frequency of micturition ; Screening for prostate cancer Discharge Disposition: Discharge to home or self care Social History Tobacco Use Types Packs/Day Years Used Date Smoking Tobacco: Former Cigarettes Q uit: 04/29/1983 Smokeless Tobacco: Former Alcohol Use Standard Drinks/Week Comments No 0 (1 standard drink = 0.6 oz pur e alcohol) Sex and Gender Information Value Date Recorded Sex Assigned at Not on file 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 Gender Identity Male 07/10/2021 8:31 AM CDT Sexual Orientation Straight 06/12/2021 8: 44 AM CDT documented as of this encounter Discharge Disposition Disposition Code Departure Means Destination Discharge to home or self care documented in this encounter Plan of Treatment Not on file documented as of this encounter Procedures Procedure Name Priority Date/Time Associated Diagnosis Comments PSA DIAGNOSTIC Routine 05/31/2018 11:58 AM CDT Frequency of micturition Screening for prostate cancer documented in this encounter Results * PSA diagnostic (05/31/2018 11:58 AM CDT) PSA-Total 1.1 <=6.2 ng/mL [facility] Comment: Interpretive Data ?AGE ? SEX ?REFERENCE INTERVAL 0 minutes-150 years ?Female ?None 0 minutes-49 years ? Male ?None ? 50-59 years ? Male ?0-3.9 ? 60-69 years ? Male ?0-5.4 ? 70-79 years ? Male ?0-6.2 ? 80-150 years ?Male ?0-6.2 Current interpretive data last revised 2018. Blood specimen (specimen) 05/31/2018 11:58 AM CDT 05/31/2018 12:03 PM CDT Narrative [facility] - 05/31/2018 12:44 PM CDT us Patrick Olmos MD LAB BLOOD ORDERABLES Sho l Result [facility] Department [place] [address] documented in this encounter Visit Diagnoses Diagnosis Frequency of micturition Urinary frequency Screening for prostate cancer Special screening for malignant neoplasm of prostate documented in this encounter Care Teams Farmer Vegetable Relationship Specialty Start Date End Date Say Low MD [address] [facility] [address] [place] [id number] PCP - General 02/15/17 documented as of this encounter
--- OUTSIDE RECORDS SUMMARY | 2024-09-22 19:07 | XMS_ITS | Encounter Summary ---
Author Organization [facility] Address [address] [place] [address] Care Team Providers Care Preassembler Printed Circuit Board Name Role Phone Say Low MD Primary Care Provider [phone] Encounter Details Date Type Department Care Team (Late st Contact Info) Description 11/14/2017 Telephone [facility]hythmia Center [address] [facility] 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 60 tablet 5 11/14/2017 04/28/2018 documented in this encounter Miscellaneous Notes * Telephone Encounter - Yashira Swartz MA - 11/14/2017 9:53 AM CST Erx sent to [facility] in [place] as requested for Coreg 12.5mg BID. DRY HOUSE OPERATOR * Telephone Encounter - Nerissa Baer - 11/14/2017 8:52 AM CST Candice Estrada & Dr. Davis changed his Carvedilol to 12.5 mg daily but he only had 25's. he's beencutting them in half & now he only has two days left. he just needs to have that 12.5 actually sent over. Please send a new rx for Carvedilol 12.5 mg BID to the [facility] on file. DRY HOUSE OPERATOR documented in this encounter Plan of Treatment Not on file documented as of this encounter Visit Diagnoses Not on filedocumented in this encounter Discontinued Medications Medication Sig Discontinue Reason Start Date End Da te carvedilol (COREG) 12.5 mg tablet Take 1 tablet (12.5 mg total) by mouth 2 (two) times a day with meals. Reorder 07/14/2017 11/14/2017 documented as of this encounter Care Teams Preassembler Printed Circuit Board Relationship Specialty Start Date End Date Say Low MD [address] [place] [address] [place] [address] PCP - General 02/15/17 documented as of this encounter
--- OUTSIDE RECORDS SUMMARY | 2024-09-22 19:07 | XMS_ITS | Encounter Summary ---
Author Organization [facility] Address [address] [place] [address] Phone Care Team Providers Care Magazine Worker Name Role Phone Say Low MD Primary Care Provider [phone] Reason for Visit * Reason Comments Urolithiasis pt here to speak abo ut his urinary stones Urinary Frequency prostate cancer screening PSA 11/2014=0.7 6 Encounter Details Date Type Department Care Team (Late st Contact Info) Description 05/31/2018 10:20 AM CDT Office Visit [place] [facility] ([facility]) - [facility] Urology [address] [facility] Advanced Medicine 11th [place] [address] [place] [address] Patrick Olmos MD [address] [facility] [address] [facility] [place] [address] Calculus of other lower urinary tract location (Primary Dx); Urinary frequency; Screening for prostate cancer; Frequency of micturition Social History Tobacco Use Types Packs/Day Years Used Date Smoking Tobacco: Former Cigarettes Q uit: 04/29/1983 Smokeless Tobacco: Former Alcohol Use Standard Drinks/Week Comments No 0 (1 standard drink = 0.6 oz pur e alcohol) Sex and Gender Information Value Date Recorded Sex Assigned at Not on file 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 documented in this encounter Progress Notes * Patrick Olmos MD - 05/31/2018 10:20 AM CDT Subjective/Objective Patient ID: Drew Pak is a 78 y.o. male. Chief Complaint No chief complaint on file. Patient returns for follow-up of his history of lower urinary tract symptoms and urolithiasis. He complains that he has urinary urgency frequency and some incontinence. This is episodic. it happens once every 2 weeks or so. He denies flank pain or hematuria. He also reports that he had shockwave lithotripsy back in October he had a bad experience with it. Apparently they had difficulty starting an IV and difficulty intubating him he woke up with a sore neck. To make matters worse follow-upKUB showed the residual stone. In spite of this he has not had any symptoms. Review of Systems Constitutional: Negative for chills, fever and unexpected weight change. Respiratory: Negative for shortness of breath. Gastrointestinal: Negative for abdominal distention, abdominal pain, nausea and vomiting. Genitourinary: Negative for difficulty urinating, dysuria, flank pain, frequency, hematuria and urgency. Physical Exam Constitutional: He is oriented to person, place, and time. He appears well- developed and well-nourished. Eyes: Pupils are equal, round, and reactive to light. Neck: Normal range of motion. Pulmonary/Chest: Effort normal. No respiratory distress. Abdominal: Soft. Musculoskeletal: Normal range of motion. Neurological: He is alert and oriented to person, place, and time. Skin: Skin is warm and dry. Psychiatric: He has a normal mood and affect. I reviewed his KUB from October and November of 2017. He has a an 11 mm left lower pole stone. Assessment/Plan There are no diagnoses linked to this encounter. With regard to his LUTS I recommended that he increase his fluid intake. With regard to the stone, I recommended we continue observation since he is without symptoms at this time. He will follow up in 1 year with a KUB. documented in this encounter Plan of Treatment Not on file documented as of this encounter Procedures Procedure Name Priority Date/Time Associated Diagnosis Comments POCT URINALYSIS DIPSTICK Routine 05/31/2018 10:48 AM CDT Calculus of other lower urinary tract location Urinary frequency Screening for prostate cancer Frequency of micturition documented in this encounter Results * PSA diagnostic (05/31/2018 11:58 AM CDT) PSA-Total 1.1 <=6.2 ng/mL [facility] Comment: Interpretive Data ?AGE ? SEX ?REFERENCE INTERVAL 0 minutes-150 years ?Female ?None 0 minutes-49 years ? Male ?None ? 50-59 years ? Male ?0-3.9 ? 60-69 years ? Male ?0-5.4 ? 70-79 years ? Male ?0-6.2 ? 80-150 years ?Male ?0-6.2 Current interpretive data last revised 2018. Blood specimen (specimen) 05/31/2018 11:58 AM CDT 05/31/2018 12:03 PM CDT Narrative [facility] - 05/31/2018 12:44 PM CDT us Patrick Olmos MD LAB BLOOD ORDERABLES Sho l Result [facility] [place] [address] * (ABNORMAL) POCT urinalysis dipstick (05/31/2018 10:48 AM CDT) Glucose, ur, POC 500.(A) Negative mg/dL Ketones, ur, POC Negative Negative Blood, ur, POC Negative Negative pH, ur, POC 5.0 5.0 - 8.0 Protein, ur, POC Negative Negative Nitrite, ur, POC Negative Negative Leukocytes, ur, POC Negative Negative Lot Number 0 Urine 05/31/2018 10:4 8 AM CDT Patrick Olmos MD POINT OF CARE TEST ORDERA BLES Final Result documented in this encounter Visit Diagnoses Diagnosis Calculus of other lower urinary tract location- Primary Urinary frequency Screening for prostate cancer Special screening for malignant neoplasm of prostate Frequency of micturition Urinary frequency Frequency of micturition Urinary frequency Screening for prostate cancer Special screening for malignant neoplasm of prostate documented in this encounter Care Teams Magazine Worker Relationship Specialty Start Date End Date Say Low MD [address] [facility] [address] [facility] [address] [facility] [address] [place] [address] PCP - General 02/15/17 documented as of this encounter
--- OUTSIDE RECORDS SUMMARY | 2024-09-22 19:07 | XMS_ITS | Encounter Summary ---
Author Organization [facility] Healthcare Address [address] [place] [address] Care Team Providers Care Livestock Broker Name Role Phone Say Low MD Primary Care Provider [phone] Encounter Details Date Type Department Care Team (Latest Contact Info) Description 11/15/2017 12:49 PM [facility] - 11/15/2017 5:57 PM [facility] Hospital Encounter [facility] INTERIM [phone] Sheree Thurston MD [address], [place] [id number] Discharge Disposition: Discharge to home or self care Social History Tobacco Use Types Packs/Day Years Used Date Smoking Tobacco: Former Cigarettes Q uit: 04/29/1983 Smokeless Tobacco: Former Alcohol Use Standard Drinks/Week Comments No 0 (1 standard drink = 0.6 oz pur e alcohol) Sex and Gender Information Value Date Recorded Sex Assigned at Not on file Legal Sex Male 8:04 PM [facility] Gender Identity Male 07/10/2021 8:31 AM CDT [...] and evening meals 0 0 09/10/2015 8 ekyuddtn-bjo-XM- lycopen-lutein (CENTRUM SILVER) 0.4-300-250 mg-mcg-mcg tablet 1 [...] Name Priority Date/Time Associated Diagnosis Comments XR ABDOMEN 2 VW Routine 11/15/2017 7:36 PM [facility] GLUCOSE POC Routine 11/15/2017 4:55 PM [facility] GLUCOSE POC Routine 11/15/2017 3:28 PM [facility] POC ISTAT Routine 11/15/2017 2:04 PM [facility] GLUCOSE POC Routine 11/15/2017 1:46 PM [facility] DISCHARGE LABORATORY CUMULATIVE REPORT 11/15/2017 12:00 AM [facility] documented in this encounter Results * XR Abdomen 2 VW (11/15/2017 7:36 PM [facility]) Anatomical Region Laterality Modality Body N/A Radiographic Anna ging 11/15/2017 7:36 PM [facility] Narrative 11/15/2017 10:04 PM [facility] YENI LYON M.D. ERIS JOHNSON M.D. FINAL REPORT The radiology attending physician has personally reviewed this study, and has reviewed and/or edited this written report and agrees with it. ACC# ??Date Time ??Exam [id number] Nov 15, 2017 13:36:00 [id number] Abdomen 2v AP/OBL EXAMINATION: ??Abdomen 2 views HISTORY: Nephrolithiasis. COMPARISON: 10/06/2017 IMPRESSION: ??Two views of the abdomen on four cassettes are submitted for interpretation. ??There is an unchanged 1.0 cm calcified renal stone overlying the lower pole of the left kidney, consistent with known left renal stone previously seen on CT. ??No additional radiopaque renal or ureteral stone are identified. The bowel gas pattern is within normal limits. ??The abdominal aorta and iliac arteries are calcified. Electronically signed by: Yeni Lyon M.D. Requested By: SHEREE THURSTON M.D. Dictated By: ?? ERIS JOHNSON M.D. ??on Nov 15 2017 ??3:35P This document has been electronically signed by: YENI LYON M.D. on Nov 15 2017 ??4:01P [id number] LYON M.D. ERIS JOHNSON M.D. FINAL REPORT The radiology attending physician has personally reviewed this study, and has reviewed and/or edited this written report and agrees with it. Attending: ??[place], ??SHEREE Requesting: ??[place], ??SHEREE Requesting Fax: ?? Attending Fax: ?? Attending ID: ??[id number] Requesting ID: ??[id number] Report To 1 ID: ??[id number] ? Report To 1 Name: ??, ?? Report To 1 FAX: ?? NextGen Order #: ?? Procedure Note Miscellaneous, Not In File - 11/15/2017 YENI LYON M.D. ERIS JOHNSON M.D. FINAL REPORT The radiology attending physician has personally reviewed this study, and has reviewed and/or edited this written report and agrees with it. ACC# Date Time Exam [id number] Nov 15, 2017 13:36:00 [id number] Abdomen 2v AP/OBL EXAMINATION: Abdomen 2 views HISTORY: Nephrolithiasis. COMPARISON: 10/06/2017 IMPRESSION: Two views of the abdomen on four cassettes are submitted for interpretation. There is an unchanged 1.0 cm calcified renal stone overlying the lower pole of the left kidney, consistent with known left renal stone previously seen on CT. No additional radiopaque renal or ureteral stone are identified. The bowel gas pattern is within normal limits. The abdominal aorta and iliac arteries are calcified. Electronically signed by: Yeni Lyon M.D. Requested By: SHEREE THURSTON M.D. Dictated By: ERIS JOHNSON M.D. on Nov 15 2017 3:35P This document has been electronically signed by: YENI LYON M.D. on Nov 15 2017 4:01P [id number] MARIE M.D. FINAL REPORT The radiology attending physician has personally reviewed this study, and has reviewed and/or edited this written report and agrees with it. Attending: SHEREE THURSTON Requesting: SHEREE THURSTON Requesting Fax: Attending Fax: Attending ID: [id number] Requesting ID: [id number] Report To 1 ID: [id number] Report To 1 Name: , Report To 1 FAX: NextGen Order #: Sheree Thurston MD IMG XR PROCEDURES Final Result * Glucose POC (11/15/2017 4:55 PM [facility]) Glucose, POC 96 70 - 199 mg/dL [facility] Comment: Interpretive Data Glucose is assumed to be non-fasting. Fasting Glucose reference ranges are: 0 - 150 years: ??70 mg/dL - 99 mg/dL Current interpretive data was last revised on 2014. Blood specimen (specimen) 11/15/2017 4:55 PM [facility] 11/15/2017 4:55 PM [facility] Narrative [facility] - 11/15/2017 4:58 PM [facility] Sheree Thurston MD POINT OF CARE TEST ORDE RABPRAKASH Final Result Performing Organization Address [facility] Number [facility] [address] [facility] [place] [address] * Glucose POC (11/15/2017 3:28 PM [facility]) Glucose, POC 95 70 - 199 mg/dL [facility] Comment: Interpretive Data Glucose is assumed to be non-fasting. Fasting Glucose reference ranges are: 0 - 150 years: ??70 mg/dL - 99 mg/dL Current interpretive data was last revised on 2014. Blood specimen (specimen) 11/15/2017 3:28 PM [facility] 11/15/2017 3:28 PM [facility] Narrative [facility] - 11/15/2017 3:42 PM [facility] Sheree Thurston MD POINT OF CARE TEST ORDE RABPRAKASH Final Result Performing Organization Address [facility] Co de Phone Number [facility] [address] [facility] [place] [address] * Flu Test (A or B), POC (11/15/2017 2:04 PM [facility]) [facility] K POC 4.5 3.5 - 4.5 mmol/L R[facility] Blood specimen (specimen) 11/15/2017 2:04 PM [facility] 11/15/2017 2:04 PM [facility] Narrative RY [facility] - 11/15/2017 2:07 PM [facility] Sheree Thurston MD LAB BLOOD ORDERABLES Fi nal Result Performing Organization Address [facility] Co de Phone Number [facility] [address] [facility]. [facility] [place] [address] * Glucose POC (11/15/2017 1:46 PM [facility]) [facility] Glucose, POC 85 70 - 199 mg/dL [facility] Comment: Interpretive Data Glucose is assumed to be non-fasting. Fasting Glucose reference ranges are: 0 - 150 years: ??70 mg/dL - 99 mg/dL Current interpretive data was last revised on 2014. Blood specimen (specimen) 11/15/2017 1:46 PM [facility] 11/15/2017 1:46 PM [facility] Narrative [facility] - 11/15/2017 1:59 PM [facility] Sheree Thurston MD POINT OF CARE TEST ORDKelly RABLES Final Result Performing Organization Address [facility] Co de Phone Number [facility] [address] [facility] [place] [address] * DISCHARGE LABORATORY CUMULATIVE REPORT (11/15/2017 12:00 AM [facility]) Narrative 11/15/2017 12:00 AM [facility] Ordered by an unspecified provider. Giovanni Donato MD LAB BLOOD ORDERABLES Sho l Result documented in this encounter Visit Diagnoses Not on filedocumented in this encounter Care Teams Livestock Broker Relationship Specialty Start Date End Date Say Low MD [address] [facility] [address] [place] [address] PCP - General 02/15/17 documented as of this encounter
--- OUTSIDE RECORDS SUMMARY | 2024-09-22 19:07 | XMS_ITS | Encounter Summary ---
Author Organization [facility] Address [address] [place] [address] Care Team Providers Care Motel Clerk Name Role Phone Say Low MD Primary Care Provider [phone] Reason for Visit * Reason Comments Device Check and OV with Dr. Dyan santos * Cardiology (Routine) - Closed Specialty Diagnoses / Procedures Referred By Contsara t Referred To Contact Diagnoses Randall WINN Procedures DEVICE CHECK - IN OFFICE Wayne Davis MD Phone: tel: fax: Referral ID Status Reason Start Date Expiration Date Visits Re quested Visits Authorized [id number] Closed 08/16/2017 02/12/2018 1 1 Encounter Details Date Type Department Care Team (Late st Contact Info) Description 04/28/2018 10:00 AM CDT Ancillary Procedure [facility] [address] [place] [address] Mobitz II; Pacemaker Social History Tobacco Use Types Packs/Day Years Used Date Smoking Tobacco: Former Cigarettes Q uit: 04/29/1983 Smokeless Tobacco: Former Alcohol Use Standard Drinks/Week Comments No 0 (1 standard drink = 0.6 oz pur e alcohol) Sex and Gender Information Value Date Recorded Sex Assigned at Not on file Legal Sex Male 8:04 PM 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 [place] Gender Identity Male 07/10/2021 8:31 AM CDT Sexual Orientation Straight 06/12/2021 8: 44 AM CDT documented as of this encounter Plan of Treatment Not on file documented as of this encounter Procedures Procedure Name Priority Date/Time Associated Diagnosis Comments DEVICE CHECK - IN OFFICE Routine 04/28/2018 9:56 AM CDT Mobitz II documented in this encounter Results * DEVICE CHECK - IN OFFICE (04/28/2018 9:56 AM CDT) Anatomical Region Laterality Modality Other Narrative 05/02/2018 3:34 PM CDT This patient received a [employer] DDD Essentio 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 ??He is in the office today for a device check and OV with Dr. Taylor. ??He is taking Carvedilol. ?? Interrogation of the patient? s device demonstrates Appropriate DDD pacer function Appropriate battery voltage, Stable lead impedances, Stable atrial and RV sensing TH Stable Atrial and RV pacing thresholds. ?? (12) atrial arrhythmias noted, <1%, total time 0.6 minutes, (1) EGM appears AT, (2) EGM's appear to be Far-field oversensing, and (5) EGM's appear to be PMT . (0) ventricular arrhythmias noted. AP-14 %, RV paced 100 % Presenting-/PRESS SECRETARY @ 72 ppm Underlying-CHB @ 40 Battery- FELY V, 7.5 years to SOFI, Atrial-6.1 mv, 499 ohms, 1.0 V @ 0.5 ms RV-21.3 mv, 502 ohms, 0.6 V @ 0.4 ms Per [employer]: PVARP increased from 300 to 330 ms due to retrograde conduction, and increased Blanking after PRESS SECRETARY from 125 to 150 ms. Plan: 1) DDD pacemaker evaluation as noted above. 2) Latitude remote transmissions in 3, 6, and 9 months. RADHA Billy RN, RS, CCDS-Arrhythmia Device Specialist us Wayne Davis MD [facility] PRO CEDURES Final Result documented in this encounter Visit Diagnoses Diagnosis Mobitz II Mobitz (type) II atrioventricular block Pacemaker Cardiac pacemaker in situ documented in this encounter Care Teams Motel Clerk Relationship Specialty Start Date End Date Say Low MD [address] [facility] [address] [place] [id number] PCP - General 02/15/17 documented as of this encounter
--- OUTSIDE RECORDS SUMMARY | 2024-09-22 19:07 | XMS_ITS | Encounter Summary ---
Author Organization [facility] Address [address] [place] [address] Care Team Providers Care Allergist/Pediatric Pulmonologist Name Role Phone Say Low MD Primary Care Provider [phone] Encounter Details Date Type Department Care Team (Late st Contact Info) Description 01/17/2019 Orders Only Arrhythmia Center [address] [place] [address] Wayne Davis MD [address] [place], [place] [id number] Mobitz II (Primary Dx) Social History Tobacco Use Types Packs/Day Years Used Date Smoking Tobacco: Former Cigarettes 3 22.6 1 961 - 04/29/1983 Smokeless Tobacco: Never Alcohol Use Standard Drinks/Week Comments No 0 (1 standard drink = 0.6 oz pur e alcohol) Sex and Gender Information Value Date Recorded Sex Assigned at Not on file 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
--- OUTSIDE RECORDS SUMMARY | 2024-09-22 19:08 | XMS_ITS | Encounter Summary ---
Author Organization [facility] Address [address] [place] [address] Care Team Providers Care Computational Scientist Name Role Phone Say Low MD Primary Care Provider [phone] Reason for Visit * Reason Comments Bradycardia Encounter Details Date Type Department Care Team (Late st Contact Info) Description 06/02/2017 9:30 AM CDT Office Visit [facility] [address] [address] Wayne Davis MD [address] [facility] [address] [address] [place], [place] [id number] Bradycardia (Primary Dx); AV node dysfunction; RBBB; LAFB (left anterior fascicular block); First degree AV block Social History Tobacco Use Types Packs/Day Years Used Date Smoking Tobacco: Former Cigarettes Q uit: 04/29/1983 Smokeless Tobacco: Former Alcohol Use Standard Drinks/Week Comments No 0 (1 standard drink = 0.6 oz pur e alcohol) Sex and Gender Information Value Date Recorded Sex Assigned at Not on file Legal Sex Male 8:04 PM OIL SCOUT Gender Identity Male 07/10/2021 8:31 AM CDT Sexual Orientation Straight 06/12/2021 8: 44 AM CDT documented as of this encounter Last Filed Vital Signs Vital Sign Reading Time Taken Comments Blood Pressure 130/78 06/08/2017 8:56 AM CDT Pulse 65 06/08/2017 8:56 AM CDT Temperature - - Respiratory Rate - - Oxygen Saturation - - Inhaled Oxygen Concentration - - Weight 102.5 kg (226 lb) 06/08/2017 8:56 AM CDT Height 180.3 cm (5' 11 ) 06/08/2017 8:56 AM CDT Body Mass Index 31.52 06/08/2017 8:56 AM CDT documented in this encounter Patient Instructions * Patient Instructions* Kristi Caceres, YAKELIN - 06/02/2017 9:30 AM CDT You are scheduled for your Pacemaker Implant on July 04, 2017 at 8:00 AM. You will need to check in at [facility] on the 2nd floor of [address] at 6:30 AM. Please bring a current list of your medications that you are taking. Please plan for a one night stay, but you may be discharged same day. You will not be able to driveyourself home from the procedure so please plan for a ride home. IF YOU ARE ALLERGIC TO SHELLFISH, IODINE OR IV CONTRAST DYE IT IS VERY IMPORTANT YOUR PHYSICIAN IS AWARE OF THIS. If so a premedication may be necessary. You will be notified and a prescription will be sent to your local pharmacy on file. Do not eat or drink anything after midnight except medications as directed. A small sip of water with your morning medications is acceptable. If you are currently taking aspirin or Plavix you may continue as directed. Hold any diuretics (water pills) the morning of the procedure. DIABETIC PATIENTS: Please HOLD oral diabetic medications the morning of the procedure and only take?? of your usual insulin dose the morning of the procedure. Please use the provided cleansing wipes over your entire chest area the evening before the procedure and the morning of the procedure. If any of your medications change after this procedure is scheduled, please notify the staff. Your wound check appointment is scheduled on July 14, 2017 at 9:00AM with Candice Estrada RN, FHRS, CCDS, at [facility], [address] Thank you for allowing us to participate in your care. Please do not hesitate to call the office ifyou have any questions or concerns prior to your procedure. [phone] Thank you. documented in this encounter Ordered Prescriptions Prescription Sig Dispense Quantity Refills Last Filled Start Date End Date famotidine (PEPCID) 20 mg tablet Take 1 tab the night before the procedure and 1 tab the morning of the procedure 2 tablet 06/02/2017 7 diphenhydrAMINE (BENADRYL) 50 mg tablet Take 1 tab the night before the procedure and 1 tab the morning of the procedure 2 tablet 06/02/2017 7 predniSONE (DELTASONE) 20 mg tablet Take 2 tabs (40mg) three times the day before the procedure and 2 tabs (40mg) the morning of the procedure 8 tablet 06/02/2017 7 documented in this encounter Progress Notes * Wayne Davis MD - 06/02/2017 9:30 AM CDT This note was dictated with voice-recognition software, and funeral limousine driver errors may be present. Subjective/Objective Patient ID: Drew Pak is a 77 y.o. male Chief Complaint Bradycardia HPI Mr. Pak presented to the [facility] on 06/02/2017, for follow-up regarding his bradycardia and AV xavier disease. He is a 77 y.o. male with a history of coronary disease/status post coronary artery bypass graft surgery, normal LV function, diabetes, hypertension, and dyslipidemia. 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 He had been asymptomatic until recently. We last saw the patient in January 2017. Interim history has not been significant for any additional hospitalizations, emergency room visits, or other major medical events. The patient presents today forscheduled routine outpatient followup. Recently, the patient has noticed symptoms compatible with worsening bradycardia. He reports occasional dizziness and lightheadedness, but he has not experienced syncope. He does not have chest discomfort. Recently, the patient underwent EGD, during which he was found to have 2-1 av block associated withfatigue. This was present prior to the administration of anesthesia. ... 12-lead ECG & Rhythm Strip: 06/02/2017: Sinus rhythm with 2nd degree AV Block (65). QRS duration is 180 msec, featuring right bundle branch block/LAFB. Normal QT interval. Allergies Allergen Reactions ??? Contrast Dye [Iodinated Contrast- Oral And Iv Dye] Other (See comments) Decreased HR Current Outpatient Prescriptions: ??? allopurinol (ZYLOPRIM) 100 mg tablet, take 1.5 tablet by oral route every day, Disp: 0, Rfl: 0 ??? amLODIPine (NORVASC) 5 mg tablet, take 1 tablet by oral route every day, Disp: 0, Rfl: 0 ??? aspirin 81 mg tablet, take 1 tablet by oral route every day, Disp: 0, Rfl: 0 ??? diclofenac DR (VOLTAREN) 75 mg EC tablet, take 1 tablet by oral route every day, Disp: 0, Rfl: 0 ??? furosemide (LASIX) 20 mg tablet, take 1 tablet by oral route every day, Disp: 30, Rfl: 0 ??? losartan (COZAAR) 100 mg tablet, take 1 tablet by oral route every day, Disp: 30, Rfl: 0 ??? metFORMIN (GLUCOPHAGE) 1,000 mg tablet, take 1 tablet by oral route 2 times every day with morning and evening meals, Disp: 0, Rfl: 0 ??? bplpfkca-oia-RD-lycopen-lutein (CENTRUM SILVER) 0.4-300-250 mg-mcg-mcg tablet, 1 tab daily, Disp: 0, Rfl: 0 ??? omega-3 fatty acids-fish oil (FISH OIL) 300-1,000 mg capsule, 1 capsule daily, Disp: 0, Rfl: 0 ??? omeprazole (PriLOSEC) 20 mg capsule, take 1 capsule by oral route every day before a meal, Disp: 0, Rfl: 0 ??? potassium citrate ER (UROCIT-K) 15 mEq tablet extended release, Take 1 tablet by mouth 2 (two) times a day., Disp: , Rfl: 0 ??? simvastatin (ZOCOR) 20 mg tablet, take 1 tablet by oral route every day at bedtime, Disp: 0, Rfl: 0 ??? tamsulosin (FLOMAX) 0.4 mg capsule,extended release 24hr, take 1 capsule by oral route every day 1/2 hour following the same meal each day, Disp: 0, Rfl: 0 ??? tiotropium (SPIRIVA WITH HANDIHALER) 18 mcg per inhalation capsule, inhale 1 capsule by inhalation route every day, Disp: 0, Rfl: 0 ??? diphenhydrAMINE (BENADRYL) 50 mg tablet, Take 1 tab the night before the procedure and 1 tab the morning of the procedure, Disp: 2 tablet, Rfl: 0 ??? famotidine (PEPCID) 20 mg tablet, Take 1 tab the night before the procedure and 1 tab the morning of the procedure, Disp: 2 tablet, Rfl: 0 ??? predniSONE (DELTASONE) 20 mg tablet, Take 2 tabs (40mg) three times the day before the procedure and 2 tabs (40mg) the morning of the procedure, Disp: 8 tablet, Rfl: 0 Review of Systems Physical Exam There were no vitals taken for this visit. GENERAL: No distress. Pleasant and cooperative with the examination and interview HEENT: Pupils are equal and round. Oropharynx clear and moist. NECK: No JVD. Carotids are normal in volume, contour, and upstroke CARDIOVASCULAR: LV apical impulse nondisplaced. Rhythm is regular. No S3, S4, or murmur. PULMONARY: Clear to auscultation bilaterally, without wheeze. ABDOMEN: Soft, nontender, nondistended, normal bowel sounds. No rebound or guarding. EXTREMITIES: No edema. Pulses are 2+ and symmetric. NEURO: Alert and oriented x3. Cranial nerves II-XII intact and symmetric. No focal findings. PSYCHIATRIC: Normal mood and affect. Assessment/Plan Diagnoses and all orders for this visit: 1. Bradycardia (Primary) Assessment & Plan: The patient has symptomatic bradycardia in relation to his progressive AV xavier disease. I recommended that he consider placement of a pacemaker, and I explained the indications, risks, and benefits.The patient would like to proceed, and we will make the appropriate arrangements. Orders: - ECG 12 lead Clinic Performed 2. AV node dysfunction 3. RBBB 4. LAFB (left anterior fascicular block) 5. First degree AV block Other orders - predniSONE (DELTASONE) 20 mg tablet; Take 2 tabs (40mg) three times the day before the procedure and 2 tabs (40mg) the morning of the procedure - diphenhydrAMINE (BENADRYL) 50 mg tablet; Take 1 tab the night before the procedure and 1 tab the morning of the procedure - famotidine (PEPCID) 20 mg tablet; Take 1 tab the night before the procedure and 1 tab the morningof the procedure Wayne Davis MD 06/02/2017 * Anam Bautista MA - 06/02/2017 9:30 AM CDT This note was dictated with voice-recognition software, and funeral limousine driver errors may be present. Subjective/Objective Patient ID: Drew Pak is a 77 y.o. male Chief Complaint Bradycardia HPI Mr. Pak presented to the [facility] on 06/02/2017, for [consultation / follow-up...]. [] is a 77 y.o. male with a history of []. [] Allergies Allergen Reactions ??? Contrast Dye [Iodinated Contrast- Oral And Iv Dye] Other (See comments) Decreased HR Current Outpatient Prescriptions: ??? allopurinol (ZYLOPRIM) 100 mg tablet, take 1.5 tablet by oral route every day, Disp: 0, Rfl: 0 ??? amLODIPine (NORVASC) 5 mg tablet, take 1 tablet by oral route every day, Disp: 0, Rfl: 0 ??? aspirin 81 mg tablet, take 1 tablet by oral route every day, Disp: 0, Rfl: 0 ??? diclofenac DR (VOLTAREN) 75 mg EC tablet, take 1 tablet by oral route every day, Disp: 0, Rfl: 0 ??? furosemide (LASIX) 20 mg tablet, take 1 tablet by oral route every day, Disp: 30, Rfl: 0 ??? losartan (COZAAR) 100 mg tablet, take 1 tablet by oral route every day, Disp: 30, Rfl: 0 ??? metFORMIN (GLUCOPHAGE) 1,000 mg tablet, take 1 tablet by oral route 2 times every day with morning and evening meals, Disp: 0, Rfl: 0 ??? uyydlzdo-zvb-VD-lycopen-lutein (CENTRUM SILVER) 0.4-300-250 mg-mcg-mcg tablet, 1 tab daily, Disp: 0, Rfl: 0 ??? omega-3 fatty acids-fish oil (FISH OIL) 300-1,000 mg capsule, 1 capsule daily, Disp: 0, Rfl: 0 ??? omeprazole (PriLOSEC) 20 mg capsule, take 1 capsule by oral route every day before a meal, Disp: 0, Rfl: 0 ??? potassium citrate ER (UROCIT-K) 15 mEq tablet extended release, Take 1 tablet by mouth 2 (two) times a day., Disp: , Rfl: 0 ??? simvastatin (ZOCOR) 20 mg tablet, take 1 tablet by oral route every day at bedtime, Disp: 0, Rfl: 0 ??? tamsulosin (FLOMAX) 0.4 mg capsule,extended release 24hr, take 1 capsule by oral route every day 1/2 hour following the same meal each day, Disp: 0, Rfl: 0 ??? tiotropium (SPIRIVA WITH HANDIHALER) 18 mcg per inhalation capsule, inhale 1 capsule by inhalation route every day, Disp: 0, Rfl: 0 ??? diphenhydrAMINE (BENADRYL) 50 mg tablet, Take 1 tab the night before the procedure and 1 tab the morning of the procedure, Disp: 2 tablet, Rfl: 0 ??? famotidine (PEPCID) 20 mg tablet, Take 1 tab the night before the procedure and 1 tab the morning of the procedure, Disp: 2 tablet, Rfl: 0 ??? predniSONE (DELTASONE) 20 mg tablet, Take 2 tabs (40mg) three times the day before the procedure and 2 tabs (40mg) the morning of the procedure, Disp: 8 tablet, Rfl: 0 Review of Systems Constitutional: Negative. HENT: Negative. Eyes: Negative. Respiratory: Positive for shortness of breath. Gastrointestinal: Negative. Endocrine: Negative. Genitourinary: Negative. Musculoskeletal: Positive for arthralgias and myalgias. Allergic/Immunologic: Negative. Neurological: Positive for dizziness. Lightheadness Hematological: Negative. Psychiatric/Behavioral: Negative. Physical Exam BP 130/78 (BP Location: Right arm, Patient Position: Sitting) Pulse 65 Ht 180.3 cm (5' 11 ) Wt 103 kg (226 lb) BMI 31.52 kg/m?? [] Assessment/Plan Diagnoses and all orders for this visit: 1. Bradycardia (Primary) Assessment & Plan: The patient has symptomatic bradycardia in relation to his progressive AV xavier disease. I recommended that he consider placement of a pacemaker, and I explained the indications, risks, and benefits.The patient would like to proceed, and we will make the appropriate arrangements. Orders: - ECG 12 lead Clinic Performed 2. AV node dysfunction 3. RBBB 4. LAFB (left anterior fascicular block) 5. First degree AV block Other orders - predniSONE (DELTASONE) 20 mg tablet; Take 2 tabs (40mg) three times the day before the procedure and 2 tabs (40mg) the morning of the procedure - diphenhydrAMINE (BENADRYL) 50 mg tablet; Take 1 tab the night before the procedure and 1 tab the morning of the procedure - famotidine (PEPCID) 20 mg tablet; Take 1 tab the night before the procedure and 1 tab the morningof the procedure Anam Bautista MA 06/02/2017 documented in this encounter Miscellaneous Notes * Assessment & Plan Note - Wayne Davis MD - 06/05/2017 1:45 PM CDT Associated Problem(s): Bradycardia The patient has symptomatic bradycardia in relation to his progressive AV xavier disease. I recommended that he consider placement of a pacemaker, and I explained the indications, risks, and benefits.The patient would like to proceed, and we will make the appropriate arrangements. 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
--- OUTSIDE RECORDS SUMMARY | 2024-09-22 19:08 | XMS_ITS | Encounter Summary ---
Author Organization [facility] Address [address] [place] [address] Care Team Providers Care Administrator Social Welfare Name Role Phone Say Low MD Primary Care Provider [phone] Encounter Details Date Type Department Care Team (Late st Contact Info) Description 10/10/2017 Telephone [facility] [address] [place] [id number] Yashira Swartz Social History Tobacco Use Types Packs/Day Years Used Date Smoking Tobacco: Former Cigarettes Q uit: 04/29/1983 Smokeless Tobacco: Former Alcohol Use Standard Drinks/Week Comments No 0 (1 standard drink = 0.6 oz pur e alcohol) Sex and Gender Information Value Date Recorded Sex Assigned at Not on file Legal Sex Male 8:04 PM FOOD AND BEVERAGE COORDINATOR Gender Identity Male 07/10/2021 8:31 AM CDT Sexual Orientation Straight 06/12/2021 8: 44 AM CDT documented as of this encounter Miscellaneous Notes * Telephone Encounter - Candice Estrada RN - 10/10/2017 5:02 PM CST I called and explained that they should send us information as to what to do with the device duringlithotripsy, he verbalized understanding AND BEVERAGE COORDINATOR * Telephone Encounter - Yashira Swartz MA - 10/10/2017 8:52 AM CST Mr. Pak called to say that he has a kidney stone that will require lithotripsy and he was told to contact [facility] about what he might need to do prior to procedure. He was told by BS to contact Candice to discuss as he might need reprogramming. He can be reached at [phone]. AND BEVERAGE COORDINATOR documented in this encounter Plan of Treatment Not on file documented as of this encounter Visit Diagnoses Not on filedocumented in this encounter Care Teams Administrator Social Welfare Relationship Specialty Start Date End Date Say Low MD [address] [facility] [facility] [address] [place] [address] PCP - General 02/15/17 documented as of this encounter
--- OUTSIDE RECORDS SUMMARY | 2024-09-22 19:08 | XMS_ITS | Encounter Summary ---
Author Organization [facility] Healthcare Address [address] [place] [address] Care Team Providers Care Load Out Worker Name Role Phone Say Low MD Primary Care Provider [phone] Encounter Details Date Type Department Care Team (Latest Contact Info) Description 07/04/2017 6:14 AM CDT - 07/05/2017 10:30 AM CDT Hospital Encounter [facility] OP INTERIM [phone] Zahra Patel MD [address] [facility] [address] [address] Discharge Disposition: Discharge to home or self care Social History Tobacco Use Types Packs/Day Years Used Date Smoking Tobacco: Former Cigarettes Q uit: 04/29/1983 Smokeless Tobacco: Former Alcohol Use Standard Drinks/Week Comments No 0 (1 standard drink = 0.6 oz pur e alcohol) Sex and Gender Information Value Date Recorded Sex Assigned at Not on file Legal Sex Male 8:04 PM [employer] Gender Identity Male 07/10/2021 8:31 AM CDT Sexual Orientation Straight 06/12/2021 8: 44 AM CDT documented as of this encounter Last Filed Vital Signs Vital Sign Reading Time Taken Comments Blood Pressure 150/69 07/05/2017 8:50 AM CDT Pulse 74 07/05/2017 8:50 AM CDT Temperature - - Respiratory Rate - - Oxygen Saturation - - Inhaled Oxygen Concentration - - Weight 99.8 kg (220 lb) 07/04/2017 7:19 AM CDT Height 180.3 cm (5' 10.98 ) 07/04/2017 7:19 AM C DT Body Mass Index 30.7 07/04/2017 7:19 AM CDT documented in this encounter Medications at Time [...] route every day 0 0 11/17/[address] (VOLTAREN) 75 mg EC tablet take 1 tablet by oral route every day 0 0 09/10/2015 1 diphenhydrAMINE (BENADRYL) 50 mg tablet Take 1 tab the night before the procedure and 1 tab the morning of the procedure 2 tablet 06/02/2017 7 famotidine (PEPCID) 20 mg tablet Take 1 tab the night before the procedure and 1 tab the morning of the procedure 2 tablet 06/02/2017 7 furosemide (LASIX) 20 mg tablet take 1 tablet by oral route every day 30 0 09/10/2015 0 losartan (COZAAR) 100 mg tablet take 1 tablet by oral route every day 30 0 11/17/2015 4 metFORMIN (GLUCOPHAGE) 1,000 mg tablet take 1 tablet by oral route 2 times every day with morning and evening meals 0 0 09/10/2015 8 dwveqevy-dfg-HC- lycopen-lutein (CENTRUM SILVER) 0.4-300-250 mg-mcg-mcg tablet 1 [...] (two) times a day. 0 04/19/2017 8 predniSONE (DELTASONE) 20 mg tablet Take 2 tabs (40mg) three times the day before the procedure and 2 tabs (40mg) the morning of the procedure 8 tablet 06/02/2017 7 simvastatin (ZOCOR) 20 mg tablet take 1 [...] Comments XR CHEST PA LATERAL 2 VIEWS Routine 07/05/2017 11:20 AM CDT EGFR Routine 07/05/2017 2:23 AM CDT DIFFERENTIAL AUTO Routine 07/05/2017 2:2 3 AM CDT CBC WITH AUTO DIFFERENTIAL Routine 07/05 2:23 AM CDT BASIC METABOLIC PANEL Routine 07/05/2017 2:23 AM CDT DISCHARGE LABORATORY CUMULATIVE REPORT 07/05/2017 12:00 AM CDT XR CHEST 1 VIEW Routine 07/04/2017 3:10 PM CDT EGFR STAT 07/04/2017 7:03 AM CDT DIFFERENTIAL AUTO STAT 07/04/2017 7:0 3 AM CDT CBC WITH AUTO DIFFERENTIAL STAT 07/04 7:03 AM CDT APTT STAT 07/04/2017 7:03 AM CDT PROTIME-INR STAT 07/04/2017 7:03 AM CDT BASIC METABOLIC PANEL STAT 07/04/2017 7:03 AM CDT ELECTROCARDIOGRAPHY (ECG) 07/04/2017 documented in this encounter Results * XR Chest Pa Lateral 2 Views (07/05/2017 11:20 AM CDT) Anatomical Region Laterality Modality Body, Chest N/A Radiographic Anna ging 07/05/2017 11:2 0 AM CDT Narrative 07/05/2017 11:20 AM CDT CHEST 2 VIEWS, 07/05/2017 . HISTORY: First-degree AV block, status post pacer placement, follow-up evaluation. COMPARISON: 07/04/2017. PA and lateral views of the chest demonstrate the heart size and mediastinal contours to be stable with unchanged position of pacer leads. ??Median sternotomy changes are again seen. ??Lung volumes are slightly improved, with persistent engorged and indistinct pulmonary vascular markings throughout bilaterally. ??There is a small pleural effusion seen on each side. ??There is no pneumothorax. ??No change in the bony structures is seen. IMPRESSION: ??Increased pulmonary vascular markings. ??Pacer leads stable. ??No pneumothorax. Electronically signed by: Geoffrey Lau M.D. Radiologist: GEOFFREY LAU ?? Attending: ??ZAHRA PATEL Requesting: ZAHRA PATEL Requesting Fax: ?? Requesting ID: [id number] Attending Fax: ?? Attending ID: ?? [id number] Completed Time: ?? 07/05/2017 06:20 AM Dictated Time: ?N/A Transcribed Time: 07/05/2017 5:17 PM Signed by: ?GEOFFREY LAU ?? on 07/05/2017 5:17 PM Report To 1 ID: Report To 1 Name: , Report To 1 FAX: Report To 2 ID: Report To 2 Name: , Report To 2 FAX: Report To 3 ID: Report To 3 Name: , Report To 3 FAX: NextGen Order #: Procedure Note Miscellaneous, Not In File / Provider, Giovanni, - 07/05/2017 CHEST 2 VIEWS, 07/05/2017 . HISTORY: First-degree AV block, status post pacer placement, follow-up evaluation. COMPARISON: 07/04/2017. PA and lateral views of the chest demonstrate the heart size and mediastinal contours to be stable with unchanged position of pacer leads. Median sternotomy changes are again seen. Lung volumes are slightly improved, with persistent engorged and indistinct pulmonary vascular markings throughout bilaterally. There is a small pleural effusion seen on each side. There is no pneumothorax. No change in the bony structures is seen. IMPRESSION: Increased pulmonary vascular markings. Pacer leads stable. No pneumothorax. Electronically signed by: Geoffrey Lau M.D. Radiologist: GEOFFREY LAU Attending: ZAHRA PATEL Requesting: ZAHRA PATEL Requesting Requesting ID: [id number] Attending Attending ID: [id number] Completed Time: 07/05/2017 06:20 AM Dictated Time: N/A Transcribed Time: 07/05/2017 5:17 PM Signed by: GEOFFREY LAU on 07/05/2017 5:17 PM Report To 1 ID: Report To 1 Name: , Report To 1 FAX: Report To 2 ID: Report To 2 Name: , Report To 2 FAX: Report To 3 ID: Report To 3 Name: , Report To 3 FAX: NextGen Order #: us Zahra Patel MD IMG XR PROCEDURES Edite d Result - Final * eGFR (07/05/2017 2:23 AM CDT) eGFR 44 mL/min/1.7 3 m2 [facility] Comment: Interpretive Data Reference Interval Normal ?>/= 90 mL/min/1.73m2 Mildly decreased* ? 60 - 89 mL/min/1.73m2 Mildly to moderately decreased ?45 - 59 mL/min/1.73m2 Moderately to severely decreased ??30 - 44 mL/min/1.73m2 Severely decreased ?15 - 29 mL/min/1.73m2 Kidney Failure ?< 15 ??mL/min/1.73m2 *Relative to young adult level If -[place] multiply value by 1.16. Estimated glomerular filtration rate is determined by [...] 70. Current interpretive data was last reviewed 2016. Blood specimen (specimen) 07/05/2017 2:23 AM CDT 07/05/2017 2:44 AM CDT us Zahra Patel MD LAB BLOOD ORDERABLES Fi nal Result [facility] [address] Department [place] [address] * (ABNORMAL) Basic metabolic panel (07/05/2017 2:23 AM CDT) Sodium 143 135 - 145 mmol/L [facility] Potassium, pl 4.4 3.6 - 5.2 mmol/L [facility] Chloride 106 97 - 110 mmol/L [facility] CO2 24 22 - 32 mmol/L [facility] BUN 33.0(H) 8.0 - 25.0 mg/dL [facility] Glucose 104 70 - 199 mg/dL [facility] Comment: Interpretive Data Glucose is assumed to be non-fasting. Current interpretive data was last revised 2016. Creatinine 1.53(H) 0.80 - 1.30 mg/dL [facility] Calcium 9.5 8.5 - 10.3 mg/dL [facility] Anion gap 13 2 - 15 mmol/L [facility] Blood specimen (specimen) 07/05/2017 2:23 AM CDT 07/05/2017 2:44 AM CDT Zahra Patel MD LAB BLOOD ORDERABLES Fi nal Result Performing Organization Address [facility] de Phone Number [facility] [address] Department [place] [address] * (ABNORMAL) Differential, auto (07/05/2017 2:23 AM CDT) Pathologist [facility] Neutrophil pct 79.2 44.0 - 80.0 % [facility] Imm gran pct 0.3 0.0 - 1.0 % [facility] Lymphocyte pct 12.7(L) 13.0 - 44.0 % [facility] Monocyte pct 7.6 2.0 - 11.0 % [facility] Eosinophil pct 0.1 0.0 - 6.0 % [facility] Basophil pct 0.1 0.0 - 3.0 % [facility] Neutrophil abs 9.89(H) 1.70 - 6.50 K/cumm [facility] Imm gran abs 0.04 0.00 - 0.10 K/cumm [facility] Lymphocyte abs 1.59 0.80 - 3.30 K/cumm [facility] Monocyte abs 0.95(H) 0.20 - 0.80 K/cumm [facility] Eosinophil abs 0.01 0.00 - 0.50 K/cumm [facility] Basophil abs 0.01 0.00 - 0.10 K/cumm [facility] Blood specimen (specimen) 07/05/2017 2:23 AM CDT 07/05/2017 2:44 AM CDT Zahra Patel MD LAB BLOOD ORDERABLES Fi nal Result [facility] [address] Department [place] [address] * (ABNORMAL) CBC with auto differential (07/05/2017 2:23 AM CDT) [facility] Signature WBC 12.49(H) 3.80 - 9.90 K/cumm [facility] RBC 4.02(L) 4.30 - 5.80 M/cumm [facility] Hgb 12.9(L) 13.0 - 17.5 g/dL [facility] Hct 39.7 38.9 - 50.3 % [facility] MCV 98.8(H) 81.3 - 96.4 fL [facility] MCH 32.1 27.1 - 33.3 pg [facility] MCHC 32.5 32.3 - 35.7 g/dL [facility] RDW CV 13.7 11.1 - 14.9 % [facility] RDW SD 50.1(H) 35.7 - 48.1 fL [facility] Plt 179 150 - 400 K/cumm [facility] MPV 11.0 9.1 - 12.3 fL [facility] NRBC 0.00 0.00 - 0.20 % [facility] NRBC abs 0.00 0.00 - 0.01 K/cumm [facility] Blood specimen (specimen) 07/05/2017 2:23 AM CDT 07/05/2017 2:44 AM CDT Zahra Patel MD LAB BLOOD ORDERABLES Fi nal Result [facility] [address] Department [place] [address] * DISCHARGE LABORATORY CUMULATIVE REPORT (07/05/2017 12:00 AM CDT) Narrative 07/05/2017 12:00 AM CDT Ordered by an unspecified provider. Giovanni Provider LAB BLOOD ORDERABLES Sho l Result * XR Chest 1 Vw (07/04/2017 3:10 PM CDT) Anatomical Region Laterality Modality Body, Chest N/A Radiographic Anna ging 07/04/2017 3:10 PM CDT Narrative 07/04/2017 3:10 PM CDT Examination: Portable chest one view. HISTORY: First-degree the heart post pacemaker placement. FINDINGS: Median sternotomy wires are present. ??Left transvenous pacemaker has been placed in the interim. ??There is no pneumothorax. There are small lung volumes with vascular crowding. ??Cardiomegaly is unchanged. IMPRESSION: 1. ??Interval placement of a left transvenous pacemaker without pneumothorax. Electronically signed by: Puja Fried MD Radiologist: PUJA FRIED ?? Attending: ??ZAHRA PATEL Requesting: ZAHRA PATEL Requesting Fax: ?? Requesting ID: [id number] Attending Fax: ?? Attending ID: ?? [id number] Completed Time: ?? 07/04/2017 10:10 AM Dictated Time: ?N/A Transcribed Time: 07/04/2017 2:30 PM Signed by: ?PUJA FRIED. ?? on 07/04/2017 2:30 PM Report To 1 ID: Report To 1 Name: , Report To 1 FAX: Report To 2 ID: Report To 2 Name: , Report To 2 FAX: Report To 3 ID: Report To 3 Name: , Report To 3 FAX: NextGen Order #: Procedure Note Miscellaneous, Not In File / Provider, MD Giovanni - 07/04/2017 Examination: Portable chest one view. HISTORY: First-degree the heart post pacemaker placement. FINDINGS: Median sternotomy wires are present. Left transvenous pacemaker has been placed in the interim. There is no pneumothorax. There are small lung volumes with vascular crowding. Cardiomegaly is unchanged. IMPRESSION: 1. Interval placement of a left transvenous pacemaker without pneumothorax. Electronically signed by: Puja Fried MD Radiologist: PUJA RFIED Attending: ZAHRA PATEL Requesting: ZAHRA PATEL Requesting Requesting ID: [id number] Attending Attending ID: [id number] Completed Time: 07/04/2017 10:10 AM Dictated Time: N/A Transcribed Time: 07/04/2017 2:30 PM Signed by: PUJA FRIED on 07/04/2017 2:30 PM Report To 1 ID: Report To 1 Name: , Report To 1 FAX: Report To 2 ID: Report To 2 Name: , Report To 2 FAX: Report To 3 ID: Report To 3 Name: , Report To 3 FAX: NextGen Order #: us Zahra Patel MD IMG XR PROCEDURES Edite d Result - Final * (ABNORMAL) Basic metabolic panel (07/04/2017 7:03 AM CDT) Sodium 141 135 - 145 mmol/L [facility] Potassium, pl 4.4 3.6 - 5.2 mmol/L [facility] Chloride 103 97 - 110 mmol/L [facility] CO2 21(L) 22 - 32 mmol/L [facility] BUN 34.7(H) 8.0 - 25.0 mg/dL [facility] Glucose 163 70 - 199 mg/dL [facility] Comment: Interpretive Data Glucose is assumed to be non-fasting. Current interpretive data was last revised 2016. Creatinine 1.59(H) 0.80 - 1.30 mg/dL [facility] Calcium 9.4 8.5 - 10.3 mg/dL [facility] Anion gap 17(H) 2 - 15 mmol/L [facility] Blood specimen (specimen) 07/04/2017 7:03 AM CDT 07/04/2017 7:03 AM CDT us Zahra Patel MD LAB BLOOD ORDERABLES Fi nal Result [facility] [address] Department [place] [address] * eGFR (07/04/2017 7:03 AM CDT) eGFR 42 mL/min/1.7 3 m2 [facility] Comment: Interpretive Data Reference Interval Normal ?>/= 90 mL/min/1.73m2 Mildly decreased* ? 60 - 89 mL/min/1.73m2 Mildly to moderately decreased ?45 - 59 mL/min/1.73m2 Moderately to severely decreased ??30 - 44 mL/min/1.73m2 Severely decreased ?15 - 29 mL/min/1.73m2 Kidney Failure ?< 15 ??mL/min/1.73m2 *Relative to young adult level If -[place] multiply value by 1.16. Estimated glomerular filtration rate is determined by [...] 70. Current interpretive data was last reviewed 2016. Blood specimen (specimen) 07/04/2017 7:03 AM CDT 07/04/2017 7:03 AM CDT us Zahra Patel MD LAB BLOOD ORDERABLES Fi nal Result [facility] [address] Department [place] [address] * aPTT (07/04/2017 7:03 AM CDT) aPTT 28.8 26.0 - 36.0 sec [facility] Comment: Interpretive Data Therapeutic Heparin Range: ??52-80 seconds. Note: Coagulation specimens must be collected peripherally for best results. As a result of changes in our Laboratory Information System, selected coagulation test results may be reported prior to identification of contaminated or clotted samples. In such cases, affected tests may subsequently be canceled and re-collection ordered, with notification to nursing. Please contact Hematology at with any questions. Current Interpretive Data was last revised on 2016. Blood specimen (specimen) 07/04/2017 7:03 AM CDT 07/04/2017 7:03 AM CDT us Zahra Patel MD LAB BLOOD ORDERABLES Fi nal Result [facility] [address] Department [place] [address] * (ABNORMAL) Protime-INR (07/04/2017 7:03 AM CDT) PT 13.6(H) 10.0 - 13.0 sec [facility] Comment: Note: Coagulation specimens must be collected peripherally for best results. As a result of changes in our Laboratory Information System, selected coagulation test results may be reported prior to identification of contaminated or clotted samples. In such cases, affected tests may subsequently be canceled and re-collection ordered, with notification to nursing. Please contact Hematology at with any questions. INR 1.2 0.9 - 1.2 [facility] Comment: INDICATION: ORTHOPEDIC Total Hip and Knee Arthroplasty ?? 1.8 to 2.6 Hip Fracture ?1.8 to 2.6 CARDIOLOGY Atrial Fibrillation ? 2.0 to 3.0 Cardiomyopathy ?2.0 to 3.0 Myocardial Infarction ? 2.5 to 3.0 Non-[place] Heart Valve ?2.0 to 3.5 TREATMENT OF VENOUS THROMBOSIS Deep Vein Thrombosis ?2.0 to 3.0 Pulmonary Embolism ?2.0 to 3.0 ?? Note: Coagulation specimens must be collected peripherally for best results. As a result of changes in our Laboratory Information System, selected coagulation test results may be reported prior to identification of contaminated or clotted samples. In such cases, affected tests may subsequently be canceled and re-collection ordered, with notification to nursing. Please contact Hematology at with any questions. Blood specimen (specimen) 07/04/2017 7:03 AM CDT 07/04/2017 7:03 AM CDT us Zahra Patel MD LAB BLOOD ORDERABLES Fi nal Result [facility] [address] Department [place] [address] * (ABNORMAL) CBC with auto differential (07/04/2017 7:03 AM CDT) WBC 9.80 3.80 - 9.90 K/cumm [facility] RBC 4.28(L) 4.30 - 5.80 M/cumm [facility] Hgb 13.8 13.0 - 17.5 g/dL [facility] Hct 42.3 38.9 - 50.3 % [facility] MCV 98.8(H) 81.3 - 96.4 fL [facility] MCH 32.2 27.1 - 33.3 pg [facility] MCHC 32.6 32.3 - 35.7 g/dL [facility] RDW CV 13.6 11.1 - 14.9 % [facility] RDW SD 49.7(H) 35.7 - 48.1 fL [facility] Plt 210 150 - 400 K/cumm [facility] MPV 11.3 9.1 - 12.3 fL [facility] NRBC 0.00 0.00 - 0.20 % [facility] NRBC abs 0.00 0.00 - 0.01 K/cumm [facility] Blood specimen (specimen) 07/04/2017 7:03 AM CDT 07/04/2017 7:03 AM CDT us Zahra Patel MD LAB BLOOD ORDERABLES Fi nal Result [facility] [address] Department of Laboratories [place], [place] [id number] * (ABNORMAL) Differential, auto (07/04/2017 7:03 AM CDT) Neutrophil pct 87.6(H) 44.0 - 80.0 % [facility] Imm gran pct 0.4 0.0 - 1.0 % [facility] Lymphocyte pct 7.4(L) 13.0 - 44.0 % [facility] Monocyte pct 4.5 2.0 - 11.0 % [facility] Eosinophil pct 0.0 0.0 - 6.0 % [facility] Basophil pct 0.1 0.0 - 3.0 % [facility] Neutrophil abs 8.58(H) 1.70 - 6.50 K/cumm [facility] Imm gran abs 0.04 0.00 - 0.10 K/cumm [facility] Lymphocyte abs 0.73(L) 0.80 - 3.30 K/cumm [facility] Monocyte abs 0.44 0.20 - 0.80 K/cumm [facility] Eosinophil abs 0.00 0.00 - 0.50 K/cumm [facility] Basophil abs 0.01 0.00 - 0.10 K/cumm [facility] Blood specimen (specimen) 07/04/2017 7:03 AM CDT 07/04/2017 7:03 AM CDT us Zahra Patel MD LAB BLOOD ORDERABLES Fi nal Result [facility] [address] Department of [employer] [place], [place] [id number] * ELECTROCARDIOGRAPHY (ECG) (07/04/2017) us Provider Scanning ECG ORDERABLES Final Result documented in this encounter Visit Diagnoses Not on filedocumented in this encounter Care Teams Load Out Worker Relationship Specialty Start Date End Date Say Low MD [address] [facility] [address] [facility] [address] [place] [id number] PCP - General 02/15/17 documented as of this encounter
--- OUTSIDE RECORDS SUMMARY | 2024-09-22 19:08 | XMS_ITS | Encounter Summary ---
Author Organization [facility] Healthcare Address [address] [place] [address] Care Team Providers Care Automobile Parts Assembler Name Role Phone Unknown, Notinfile Primary Care Provider Unavail able Encounter Details Date Type Department Care Team (Latest Contact Info) Description 02/11/2017 12:34 PM CDT - 02/11/2017 11:59 PM CDT Hospital Encounter [facility] [phone] Elvin Carrillo NP [address] [place] [address] Discharge Disposition: Discharge to home or self care Social History Tobacco Use Types Packs/Day Years Used Date Smoking Tobacco: Former Cigarettes Q uit: 10/03/1982 Alcohol Use Standard Drinks/Week Comments No 0 (1 standard drink = 0.6 oz pur e alcohol) Sex and Gender Information Value Date Recorded Sex Assigned at Not on file 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 Male 07/10/2021 8:31 AM [...] and evening meals 0 0 09/10/2015 8 dfsqclfv-zpf-DT- lycopen-lutein (CENTRUM SILVER) 0.4-300-250 mg-mcg-mcg tablet 1 tab daily 0 0 09/10/2015 2 omega-3 fatty acids-fish oil (FISH OIL) 300-1,000 mg capsule 1 capsule daily 0 0 09/10/2015 2 omeprazole (PriLOSEC) 20 mg capsule take 1 capsule by oral route every day before a meal 0 0 09/10/2015 0 simvastatin (ZOCOR) 20 mg tablet take [...] Diagnosis Comments CT ABDOMEN PELVIS WO CONTRAST Routine 02/11/2017 5:58 PM CDT documented in this encounter Results * CT Abdomen Pelvis WO Contrast (02/11/2017 5:58 PM CDT) Anatomical Region Laterality Modality Body N/A Computed Tomogra phy 02/11/2017 5:58 PM CDT Narrative 02/11/2017 5:58 PM CDT LOVELY TUCKER M.D. FINAL REPORT ACC# ??Date Time ??Exam [id number] February 11, 2017 12:58:[address] Abd ??and ??Pelvis wo cont EXAMINATION: ?? Tomography of the abdomen and pelvis without intravenous contrast material. HISTORY: Right flank pain. The patient has history of nephrolithiasis. TECHNIQUE: CT scan of the abdomen and pelvis was performed without intravenous contrast material following the renal stone protocol. FINDINGS: Lower chest: No confluent pulmonary infiltrates are seen at the lung bases. No suspicious pulmonary nodules noted. There are no pleural effusions. There is no pericardial effusion. Atherosclerotic changes of the coronary arteries are seen. Abdomen and pelvis: There are several central tiny right renal stones seen. A total 5 ??stones are present, none larger than 3 mm. There is no right hydronephrosis. No right ureteral stone is seen. The distal right ureter is slightly dilated and shows mild urothelial thickening. Left kidney: There is a 5.7 cm left renal cysts. A smaller cyst is seen in the lower pole the left kidney. Multiple tiny nonobstructive stones are seen in the central portion of the kidney. ??A larger ??stone, measuring almost a centimeter is seen in the inferior pole of the left kidney. The left ureter is of normal diameter, and shows no stones. The bladder has no stones. Other Findings: The liver and spleen are normal. Normal adrenal glands. Normal pancreas. Atherosclerotic changes of the abdominal aorta are seen. Some stool is seen in the right side of the colon. Pelvis: The prostate is enlarged. Bones: There are discogenic changes noted throughout the lumbar spine, particularly L2-L3, and L5-S1 levels. IMPRESSION: ?? 1. Bilateral nonobstructive renal stones as described above. 2. No ureteral stones. 3. Mild dilatation of the distal right ureter. Requested By: Elvin Dsouza ??ANP ? Dictated By: ?? LOVELY TUCKER M.D. ??on Feb 11 2017 ??1:20P This document has been electronically signed by: LOVELY TUCKER M.D. on Feb 11 2017 ??1:20P [id number] Procedure Note Miscellaneous, Not In File / Provider, MD Giovanni - 02/26/2017 LOVELY TUCKER M.D. FINAL REPORT ACC# Date Time Exam [id number] February 11, 2017 12:58:[id number] Abd and Pelvis wo cont EXAMINATION: Tomography of the abdomen and pelvis without intravenous contrast material. HISTORY: Right flank pain. The patient has history of nephrolithiasis. TECHNIQUE: CT scan of the abdomen and pelvis was performed without intravenous contrast material following the renal stone protocol. FINDINGS: Lower chest: No confluent pulmonary infiltrates are seen at the lung bases. No suspicious pulmonary nodules noted. There are no pleural effusions. There is no pericardial effusion. Atherosclerotic changes of the coronary arteries are seen. Abdomen and pelvis: There are several central tiny right renal stones seen. A total 5 stones are present, none larger than 3 mm. There is no right hydronephrosis. No right ureteral stone is seen. The distal right ureter is slightly dilated and shows mild urothelial thickening. Left kidney: There is a 5.7 cm left renal cysts. A smaller cyst is seen in the lower pole the left kidney. Multiple tiny nonobstructive stones are seen in the central portion of the kidney. A larger stone, measuring almost a centimeter is seen in the inferior pole of the left kidney. The left ureter is of normal diameter, and shows no stones. The bladder has no stones. Other Findings: The liver and spleen are normal. Normal adrenal glands. Normal pancreas. Atherosclerotic changes of the abdominal aorta are seen. Some stool is seen in the right side of the colon. Pelvis: The prostate is enlarged. Bones: There are discogenic changes noted throughout the lumbar spine, particularly L2-L3, and L5-S1 levels. IMPRESSION: 1. Bilateral nonobstructive renal stones as described above. 2. No ureteral stones. 3. Mild dilatation of the distal right ureter. Requested By: Elvin Dsouza ANP Dictated By: LOVELY TUCKER M.D. on Feb 11 2017 1:20P This document has been electronically signed by: LOVELY TUCKER M.D. on Feb 11 2017 1:20P [id number] us Not In File Miscellaneous IMG CT PROCEDURES Sho l Result documented in this encounter Visit Diagnoses Not on filedocumented in this encounter Care Teams Automobile Parts Assembler Relationship Specialty Start Date End Date Unknown, Notinfile PCP - General 02/11/17 02/14/17 documented as of this encounter
--- OUTSIDE RECORDS SUMMARY | 2024-09-22 19:08 | XMS_ITS | Encounter Summary ---
Author Organization [facility] Medical [facility] Address [address] [place] [address] Care Team Providers Care Manager Care Management Name Role Phone Say Low MD Primary Care Provider [phone] Encounter Details Date Type Department Care Team (Late st Contact Info) Description 07/14/2017 Telephone [facility] [address] [place] [address] Patrick Taylor MD [address] [facility] [address] [place] [address] Social History Tobacco Use Types Packs/Day Years Used Date Smoking Tobacco: Former Cigarettes Q uit: 04/29/1983 Smokeless Tobacco: Former Alcohol Use Standard Drinks/Week Comments No 0 (1 standard drink = 0.6 oz pur e alcohol) Sex and Gender Information Value Date Recorded Sex Assigned at Not on file 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 Ortiz The patient Coreg was stopped due to bradycardia, he has CAD, his BP has been elevated, reviewed with Dr. Davis, he wants patent to restart Coreg 12.5 mg PO BID and keep track of Bp, I will inform Dr. Taylor also When would you like to see him in F/U Thanks Candice documented in this encounter Plan of Treatment Not on file documented as of this encounter Visit Diagnoses Not on filedocumented in this encounter Care Teams Manager Care Management Relationship Specialty Start Date End Date Say Low MD [address] [facility] [address] [place] [address] PCP - General 02/15/17 documented as of this encounter
--- OUTSIDE RECORDS SUMMARY | 2024-09-22 19:08 | XMS_ITS | Encounter Summary ---
Author Organization [facility] Medical Group Address [address] [place] [address] Care Team Providers Care Assistant Kitchen Manager Name Role Phone Say Low MD Primary Care Provider [phone] Encounter Details Date Type Department Care Team (Late st Contact Info) Description 07/01/2017 Telephone Arrhythmia Center [address] [facility] [place] [id number] Nerissa Baer MA Social History Tobacco Use Types Packs/Day Years Used Date Smoking Tobacco: Former Cigarettes Q uit: 04/29/1983 Smokeless Tobacco: Former Alcohol Use Standard Drinks/Week Comments No 0 (1 standard drink = 0.6 oz pur e alcohol) Sex and Gender Information Value Date Recorded Sex Assigned at Not on file 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 Pak about his procedure. He would like to have PM wireless. Danelle says we are not doing the wireless here [facility]. He verbalize understand. * Telephone Encounter - Nerissa Baer - 07/01/2017 11:17 AM CDT Pt would like to speak with AK regarding his PM implant schd for Tuesday, 07/04. [phone] documented in this encounter Plan of Treatment Not on file documented as of this encounter Visit Diagnoses Not on filedocumented in this encounter Care Teams Assistant Kitchen Manager Relationship Specialty Start Date End Date Say Low MD [address] [place] [place] [id number] PCP - General 02/15/17 documented as of this encounter
--- OUTSIDE RECORDS SUMMARY | 2024-09-22 19:08 | XMS_ITS | Encounter Summary ---
Author Organization [facility] Medical Group Address [address] [place] [address] Care Team Providers Care Flap Lining Binder Name Role Phone Say Low MD Primary Care Provider [phone] Reason for Visit * Reason Onset Date Comments dye allergy protocol 07/02/2017 Encounter Details Date Type Department Care Team (Late st Contact Info) Description 07/02/2017 Telephone Arrhythmia Center [address], [place] [address] Wayne Davis MD [address] [facility] [address] [place] [address] dye allergy protocol Social History Tobacco Use Types Packs/Day Years Used Date Smoking Tobacco: Former Cigarettes Q uit: 04/29/1983 Smokeless Tobacco: Former Alcohol Use Standard Drinks/Week Comments No 0 (1 standard drink = 0.6 oz pur e alcohol) Sex and Gender Information Value Date Recorded Sex Assigned at Not on file 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 Gender Identity Male 07/10/2021 8:31 AM CDT Sexual Orientation Straight 06/12/2021 8: 44 AM CDT documented as of this encounter Miscellaneous Notes * Telephone Encounter - Candice Estrada RN - 07/02/2017 8:09 AM CDT I called the patient and explained dye allergy protocol Prednisone 40 mg TID day before and AM of procedure Benadryl 50 mg PM before and AM of procedure Pepcid 20 mg evening before and AM of procedure and medications have been called into his pharmacy,he verbalized understanding documented in this encounter Plan of Treatment Not on file documented as of this encounter Visit Diagnoses Not on filedocumented in this encounter Care Teams Flap Lining Binder Relationship Specialty Start Date End Date Say Low MD [address] [facility] [address] [facility] [address] [place] [address] PCP - General 02/15/17 documented as of this encounter
--- OUTSIDE RECORDS SUMMARY | 2024-09-22 19:08 | XMS_ITS | Encounter Summary ---
Author Organization [facility] Medical Group Address [address] [place] [address] Care Team Providers Care Molder Setter Name Role Phone Say Low MD Primary Care Provider [phone] Encounter Details Date Type Department Care Team (Late st Contact Info) Description 02/17/2017 Orders Only Arrhythmia Center ProviderGiovanni MD [address] [place] [address] Social History Tobacco Use Types Packs/Day Years Used Date Smoking Tobacco: Former Cigarettes Q uit: 10/03/1982 Alcohol Use Standard Drinks/Week Comments No 0 (1 standard drink = 0.6 oz pur e alcohol) Sex and Gender Information Value Date Recorded Sex Assigned at Not on file 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 Historical Provider [facility] HÉCTOR VENTURA Final Result documented in this encounter Visit Diagnoses Not on filedocumented in this encounter Care Teams Molder Setter Relationship Specialty Start Date End Date Say Low MD [address] [facility] [address] [address] [facility] [address] [place] [address] PCP - General 02/15/17 documented as of this encounter
--- OUTSIDE RECORDS SUMMARY | 2024-09-22 19:08 | XMS_ITS | Encounter Summary ---
Author Organization [facility] Medical Group Address [address] [place] [address] Care Team Providers Care Bedspread Folder Name Role Phone Say Low MD Primary Care Provider [phone] Reason for Visit * Reason Comments Device Check * Cardiology (Routine) - Closed Specialty Diagnoses / Procedures Referred By Yary silveira Referred To Contact Diagnoses AV block Procedures DEVICE CHECK - IN OFFICE Wayne Davis MD Phone: tel: fax: Referral ID Status Reason Start Date Expiration Date Visits Re quested Visits Authorized [id number] Closed 06/02/2017 11/29/2017 1 1 Encounter Details Date Type Department Care Team (Late st Contact Info) Description 07/14/2017 9:00 AM CDT Ancillary Procedure Arrhythmia Center [address] [id number] AV block; Pacemaker Social History Tobacco Use Types Packs/Day Years Used Date Smoking Tobacco: Former Cigarettes Q uit: 04/29/1983 Smokeless Tobacco: Former Alcohol Use Standard Drinks/Week Comments No 0 (1 standard drink = 0.6 oz pur e alcohol) Sex and Gender Information Value Date Recorded Sex Assigned at Not on file 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 Gender Identity Male 07/10/2021 8:31 AM CDT Sexual Orientation Straight 06/12/2021 8: 44 AM CDT documented as of this encounter Last Filed Vital Signs Vital Sign Reading Time Taken Comments Blood Pressure 148/72 07/14/2017 9:20 AM CDT Pulse - - Temperature - - Respiratory Rate - - Oxygen Saturation - - Inhaled Oxygen Concentration - - Weight 104 kg (229 lb 4.8 oz) 07/14/2017 9:20 AM CDT Height 180.3 cm (5' 11 ) 07/14/2017 9:20 AM CDT Body Mass Index 31.98 07/14/2017 9:20 AM CDT documented in this encounter Ordered Prescriptions Prescription Sig Dispense Quantity Refills Last Filled Start Date End Date carvedilol (COREG) 12.5 mg tablet Take 1 tablet (12.5 mg total) by mouth 2 (two) times a day with meals. 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 ??Device check by [employer]. The patient has an incision to the left pectoral area, medical adhesive is intact, the incision is well approximated and is healing well without pain, ??redness, drainage, or signs of infection. ??There is a small soft hematoma at the site. Interrogation of the patients device demonstrates that the DDD pacemaker is functioning appropriately according to the manufacturers recommendations with appropriate battery voltage, lead impedances, stable atrial and ventricular pacing and atrial sensing thresholds. ? There were no atrial or ventricular arrhythmias noted. Reiterated post operative instructions and restrictions with the patient, all questions were answered. AP-9 %, RVP-100 % Presenting Rhythm-Atrial tracking Underlying [id number] ventricular escape at VVI 30 BPM Battery V- FELY, 6.5 years to SOFI Atrial- 5.2 ??mv, 424 ?? ohms, 0.3 V @ ??.40 ms RV- Paced mv, 491 ohms, 0.6 V @ .40 ms Plan: 1) Pacemaker and wound evaluation as noted above without arrhythmias. 2) In office device check in 1 month for chronic programming. 3) The patient Coreg was stopped due to bradycardia, he has CAD, his BP has been elevated, reviewed with Dr. Davis, he wants patent to restart Coreg 12.5 mg PO BID and keep track of Bp, I will inform Dr. Taylor also Candice Estrada RN, RS, CCDS-Arrhythmia Device Specialist us Wayne Davis MD [facility] PRO CEDURES Final Result documented in this encounter Visit Diagnoses Diagnosis AV block Unspecified atrioventricular block Pacemaker Cardiac pacemaker in situ documented in this encounter Discontinued Medications Medication Sig Discontinue Reason Start Date End Da te predniSONE (DELTASONE) 20 mg tablet Take 2 tabs (40mg) three times the day before the procedure and 2 tabs (40mg) the morning of the procedure Therapy completed 06/02/2017 07/14/2017 famotidine (PEPCID) 20 mg tablet Take 1 tab the night before the procedure and 1 tab the morning of the procedure Therapy completed 06/02/2017 07/14/2017 diphenhydrAMINE (BENADRYL) 50 mg tablet Take 1 tab the night before the procedure and 1 tab the morning of the procedure Therapy completed 06/02/2017 07/14/2017 documented as of this encounter Care Teams Bedspread Folder Relationship Specialty Start Date End Date Say Low MD [address] [facility] [address] [place] [address] PCP - General 02/15/17 documented as of this encounter
--- OUTSIDE RECORDS SUMMARY | 2024-09-22 19:08 | XMS_ITS | Encounter Summary ---
Author Organization [facility] Medical Group Address [address] [place] [address] Care Team Providers Care Editor In Chief Newspaper Name Role Phone Say Low MD Primary Care Provider [phone] Unknown, Notinfile Primary Care Provider Unavail able Say Low MD Primary Care Provider [phone] Encounter Details Date Type Department Care Team (Late st Contact Info) Description 10/01/2016 Orders Only Arrhythmia Center Provider, MD Giovanni [facility] [place] [address] Social History Tobacco Use Types Packs/Day Years Used Date Smoking Tobacco: Former Cigarettes Q uit: 10/03/1982 Alcohol Use Standard Drinks/Week Comments No 0 (1 standard drink = 0.6 oz pur e alcohol) Sex and Gender Information Value Date Recorded Sex Assigned at Not on file Legal 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 us Historical Provider [facility] PROCE DURES Final Result * CARDIOLOGY REPORT (10/01/2016) Anatomical Region Laterality Modality Other Narrative 10/01/2016 Ordered by an unspecified provider. us Historical Provider [facility] PROCE DURES Final Result documented in this encounter Visit Diagnoses Not on filedocumented in this encounter Care Teams Editor In Chief Newspaper Relationship Specialty Start Date End Date Say Low MD [address] [place] [address] PCP - General 10/13/15 02/10/17 Unknown, Notinfile PCP - General 02/11/17 02/14/17 Say Low MD [address] [place] [address] PCP - General 02/15/17 documented as of this encounter
--- OUTSIDE RECORDS SUMMARY | 2024-09-22 19:08 | XMS_ITS | Encounter Summary ---
Author Organization [facility] Medical Group Address [address] [place] [address] Care Team Providers Care Development And Housing Director Name Role Phone Say Low MD Primary Care Provider [phone] Unknown, Notinfile Primary Care Provider Unavail able Say Low MD Primary Care Provider [phone] Encounter Details Date Type Department Care Team (Late st Contact Info) Description 09/08/2016 Orders Only Arrhythmia Center Provider, MD Giovanni [address] [place] [address] Social History Tobacco Use Types Packs/Day Years Used Date Smoking Tobacco: Former Cigarettes Q uit: 10/03/1982 Alcohol Use Standard Drinks/Week Comments No 0 (1 standard drink = 0.6 oz pur e alcohol) Sex and Gender Information Value Date Recorded Sex Assigned at Not on file 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 Historical Provider [facility] HÉCTOR VENTURA Final Result documented in this encounter Visit Diagnoses Not on filedocumented in this encounter Care Teams Development And Housing Director Relationship Specialty Start Date End Date Say Low MD [address] [place] [address] PCP - General 10/13/15 02/10/17 Unknown, Notinfile PCP - General 02/11/17 02/14/17 Say Low MD [address] [place] [address] PCP - General 02/15/17 documented as of this encounter
--- OUTSIDE RECORDS SUMMARY | 2024-09-22 19:08 | XMS_ITS | Encounter Summary ---
Author Organization [facility] Healthcare Address [address] [place] [address] Care Team Providers Care Rotary Drum Tanner Name Role Phone Unknown, Notinfile Primary Care Provider Unavail able Encounter Details Date Type Department Care Team (Latest Contact Info) Description 02/11/2017 11:50 AM CDT - 02/11/2017 11:59 PM CDT Hospital Encounter [facility] OP INTERIM [phone] Elvin Carrillo NP [address] [place] [address] Discharge Disposition: Discharge to home or self care Social History Tobacco Use Types Packs/Day Years Used Date Smoking Tobacco: Former Cigarettes Q uit: 10/03/1982 Alcohol Use Standard Drinks/Week Comments No 0 (1 standard drink = 0.6 oz pur e alcohol) Sex and Gender Information Value Date Recorded Sex Assigned at Not on file 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 [facility] Urine, bladder 02/11/2017 11 :50 AM CDT 02/11/2017 3:53 PM CDT Narrative [facility] CB - 02/12/2017 9:32 AM CDT us Elvin Carrillo NP LAB MICROBIOLOGY - GENE RAL ORDERABLES Final Result [facility] [address] [facility] [place] [address] documented in this encounter Visit Diagnoses Not on filedocumented in this encounter Care Teams Rotary Drum Tanner Relationship Specialty Start Date End Date Unknown, Notinfile PCP - General 02/11/17 02/14/17 documented as of this encounter
--- OUTSIDE RECORDS SUMMARY | 2024-09-22 19:08 | XMS_ITS | Encounter Summary ---
Author Organization [facility] Medical Group Address [address] [place] [address] Care Team Providers Care Bilingual Office Assistant Name Role Phone Say Low MD Primary Care Provider [phone] Reason for Visit * Reason Comments Device Check * Cardiology (Routine) - Closed Specialty Diagnoses / Procedures Referred By Yary silveira Referred To Contact Diagnoses Randall II Procedures DEVICE CHECK - IN OFFICE Wayne Davis MD Phone: tel: fax: Referral ID Status Reason Start Date Expiration Date Visits Re quested Visits Authorized [id number] Closed 07/14/2017 01/10/2018 1 1 Encounter Details Date Type Department Care Team (Late st Contact Info) Description 08/16/2017 9:00 AM YIELD ENGINEER Ancillary Procedure [facility] [address] [id number] Mobitz II Social History Tobacco Use Types Packs/Day Years Used Date Smoking Tobacco: Former Cigarettes Q uit: 04/29/1983 Smokeless Tobacco: Former Alcohol Use Standard Drinks/Week Comments No 0 (1 standard drink = 0.6 oz pur e alcohol) Sex and Gender Information Value Date Recorded Sex Assigned at Not on file Legal Sex Male 8:04 PM YIELD ENGINEER Gender Identity Male 07/10/2021 8:31 AM CDT Sexual Orientation Straight 06/12/2021 8: 44 AM CDT documented as of this encounter Last Filed Vital Signs Vital Sign Reading Time Taken Comments Blood Pressure 130/66 08/16/2017 9:07 AM YIELD ENGINEER Pulse - - Temperature - - Respiratory Rate - - Oxygen Saturation - - Inhaled Oxygen Concentration - - Weight 105.6 kg (232 lb 14.4 oz) 08/16/2017 9:07 AM YIELD ENGINEER Height 180.3 cm (5' 11 ) 08/16/2017 9:07 AM YIELD ENGINEER Body Mass Index 32.48 08/16/2017 9:07 AM YIELD ENGINEER documented in this encounter Plan of Treatment Pending Results Name Type Priority Associated Diagnoses Date /Time DEVICE CHECK - IN OFFICE Cardiac Services Routine Mobitz II 08/16/2017 8:45 AM YIELD ENGINEER documented as of this encounter Visit Diagnoses Diagnosis Mobitz II Mobitz (type) II atrioventricular block documented in this encounter Care Teams Bilingual Office Assistant Relationship Specialty Start Date End Date Say Low MD [address] [facility] [address] [place] [address] PCP - General 02/15/17 documented as of this encounter
--- OUTSIDE RECORDS SUMMARY | 2024-09-22 19:08 | XMS_ITS | Encounter Summary ---
Author Organization [facility] Medical Group Address [address] [place] [address] Care Team Providers Care Employment And Claims Aide Name Role Phone Say Low MD Primary Care Provider [phone] Encounter Details Date Type Department Care Team (Late st Contact Info) Description 11/07/2017 Documentation Arrhythmia [facility] [address] [facility] [facility] [address] [place] [id number] Candice Estrada RN [address] [facility] [address] [place] [address] Social History Tobacco Use Types Packs/Day Years Used Date Smoking Tobacco: Former Cigarettes Q uit: 04/29/1983 Smokeless Tobacco: Former Alcohol Use Standard Drinks/Week Comments No 0 (1 standard drink = 0.6 oz pur e alcohol) Sex and Gender Information Value Date Recorded Sex Assigned at Not on file Legal Sex Male 8:04 PM IRRIGATION TAX ASSESSOR COLLECTOR Gender Identity Male 07/10/2021 8:31 AM CDT Sexual Orientation Straight 06/12/2021 8: 44 AM CDT documented as of this encounter Progress Notes * Nerissa Baer - 11/07/2017 4:54 PM CST CRMD Form scanned GATION TAX ASSESSOR COLLECTOR documented in this encounter Plan of Treatment Not on file documented as of this encounter Visit Diagnoses Not on filedocumented in this encounter Care Teams Employment And Claims Aide Relationship Specialty Start Date End Date Say Low MD [address] [facility] [address] [address] [facility] [address] [place] [address] PCP - General 02/15/17 documented as of this encounter
--- OUTSIDE RECORDS SUMMARY | 2024-09-22 19:08 | XMS_ITS | Encounter Summary ---
Author Organization [facility] Healthcare Address [address] [place] [address] Care Team Providers Care Warehouse Administrator Name Role Phone Say Low MD Primary Care Provider [phone] Encounter Details Date Type Department Care Team (Latest Contact Info) Description 11/07/2017 1:27 PM BUSINESS OBJECTS ARCHITECT - 11/07/2017 11:59 PM [facility] Hospital Encounter [facility] OP INTERIM [phone] Concetta Thurston MD [address] [place], [place] [id number] Discharge Disposition: Discharge to home or self care Social History Tobacco Use Types Packs/Day Years Used Date Smoking Tobacco: Former Cigarettes Q uit: 04/29/1983 Smokeless Tobacco: Former Alcohol Use Standard Drinks/Week Comments No 0 (1 standard drink = 0.6 oz pur e alcohol) Sex and Gender Information Value Date Recorded Sex Assigned at Not on file Legal Sex Male 8:04 PM BUSINESS OBJECTS ARCHITECT Gender Identity Male 07/10/2021 8:31 AM [...] a day with meals. 60 tablet 07/14/[address] (VOLTAREN) 75 mg EC [...] and evening meals 0 0 09/10/2015 8 bceibfiv-qct-EV- lycopen-lutein (CENTRUM SILVER) 0.4-300-250 mg-mcg-mcg tablet 1 [...] Date/Time Associated Diagnosis Comments URINE CULTURE RTNm 11/07/2017 3:32 PM BUSINESS OBJECTS ARCHITECT CBC WITHOUT DIFFERENTIAL After X-Ray 11/07/2017 2:20 PM BUSINESS OBJECTS ARCHITECT BASIC METABOLIC PANEL After X-Ray 11/07/2017 2:20 PM BUSINESS OBJECTS ARCHITECT HEMOGLOBIN A1C Routine Gen Lab 11/07/2017 2:15 PM BUSINESS OBJECTS ARCHITECT DISCHARGE LABORATORY CUMULATIVE REPORT 11/07/2017 12:00 AM BUSINESS OBJECTS ARCHITECT documented in this encounter Results * Urine culture (11/07/2017 3:32 PM BUSINESS OBJECTS ARCHITECT) Report Final Report: Insignificant growth based on current clinical standards. [facility] Urine, clean voided 11/07/2017 3:32 PM BUSINESS OBJECTS ARCHITECT 11/07/2017 4:43 PM BUSINESS OBJECTS ARCHITECT Narrative [facility] - 11/08/2017 11:28 AM BUSINESS OBJECTS ARCHITECT Angelica Escobar NP LAB MICROBIOLOGY - GENERAL OR DERABLES Final Result [facility] Department [place] [address] * (ABNORMAL) Basic metabolic panel (11/07/2017 2:20 PM BUSINESS OBJECTS ARCHITECT) Sodium 144 135 - 145 mmol/L [facility] Potassium, pl 4.9 3.3 - 4.9 mmol/L [facility] Chloride 109 97 - 110 mmol/L [facility] CO2 26 22 - 32 mmol/L [facility] BUN 26(H) 8 - 25 mg/dL [facility] Glucose 98 70 - 199 mg/dL [facility] Comment: Interpretive Data Fasting glucose >/= 126 [...] Current interpretive data was last revised 2017. Creatinine 1.31(H) 0.80 - 1.30 mg/dL [facility] Calcium 9.7 8.5 - 10.3 mg/dL [facility] Anion gap 9 2 - 15 mmol/L [facility] Blood specimen (specimen) 11/07/2017 2:20 PM BUSINESS OBJECTS ARCHITECT 11/07/2017 4:44 PM BUSINESS OBJECTS ARCHITECT Narrative [facility] - 11/07/2017 5:12 PM BUSINESS OBJECTS ARCHITECT us Angelica Escobar NP LAB BLOOD ORDERABLES Final Re sult [facility] [address] [facility] Department [place] [address] * (ABNORMAL) CBC without differential (11/07/2017 2:20 PM BUSINESS OBJECTS ARCHITECT) WBC 9.6 3.8 - 9.9 K/cumm [facility] RBC 4.74 4.30 - 5.80 M/cumm [facility] Hgb 15.0 13.0 - 17.5 g/dL [facility] Hct 46.4 38.9 - 50.3 % [facility] MCV 97.9(H) 81.3 - 96.4 fL [facility] MCH 31.6 27.1 - 33.3 pg [facility] MCHC 32.3 32.3 - 35.7 g/dL [facility] RDW CV 13.7 11.1 - 14.9 % [facility] RDW SD 49.8(H) 35.7 - 48.1 fL [facility] NRBC abs 0.00 0.00 - 0.01 K/cumm [facility] Plt 230 150 - 400 K/cumm [facility] MPV 10.7 9.1 - 12.3 fL [facility] Blood specimen (specimen) 11/07/2017 2:20 PM BUSINESS OBJECTS ARCHITECT 11/07/2017 4:44 PM BUSINESS OBJECTS ARCHITECT Narrative [facility] - 11/07/2017 4:54 PM BUSINESS OBJECTS ARCHITECT Angelica S. Shawn CHECKROOM ATTENDANT LAB BLOOD ORDERABLES Final Re sult Performing Organization Address [facility] Co de Phone Number [facility] Department [place] [address] * (ABNORMAL) Hemoglobin A1c (11/07/2017 2:15 PM BUSINESS OBJECTS ARCHITECT) Hgb A1C, POC 6.2(H) 4.0 - 6.0 % [facility] Est Average Gluc POC 131 mg/dL [facility] Comment: The ADA recommends reporting an estimated Average Glucose (eAG) with all Hemoglobin A1c results using the equation derived from a study of 507 normal and diabetic adults. ??Minority populations were underrepresented and children were not included. ?? (Diabetes Care 31:4994-8993, 2008). ??The eAG is not equivalent to a fasting glucose. Blood specimen (specimen) 11/07/2017 2:15 PM BUSINESS OBJECTS ARCHITECT 11/07/2017 2:15 PM BUSINESS OBJECTS ARCHITECT Narrative [facility] - 11/07/2017 2:32 PM BUSINESS OBJECTS ARCHITECT Concetta Thurston MD LAB BLOOD ORDERABLES Fi nal Result Performing Organization Address [facility] Co de Phone Number [facility] Department [place] [address] * DISCHARGE LABORATORY CUMULATIVE REPORT (11/07/2017 12:00 AM BUSINESS OBJECTS ARCHITECT) Narrative 11/07/2017 12:00 AM BUSINESS OBJECTS ARCHITECT Ordered by an unspecified provider. Historical Provider LAB BLOOD ORDERABLES Sho l Result documented in this encounter Visit Diagnoses Not on filedocumented in this encounter Care Teams Warehouse Administrator Relationship Specialty Start Date End Date Say Low MD [address] [facility] [address] [place] [address] PCP - General 02/15/17 documented as of this encounter
--- OUTSIDE RECORDS SUMMARY | 2024-09-22 19:08 | XMS_ITS | Encounter Summary ---
Author Organization [facility] Medical Group Address [address] [place] [address] Care Team Providers Care Combine Driver Name Role Phone Say Low MD Primary Care Provider [phone] Reason for Visit * Reason Comments Coronary Artery Disease Hyperlipidemia Hypertension Encounter Details Date Type Department Care Team (Latest Contact Info) Description 04/29/2017 11:15 AM CDT Office Visit [facility] Card[facility] [address] [place] [address] [facility] [facility] [address] [place] [address] Atherosclerosis of [place] coronary artery of [place] heart without angina pectoris (Primary Dx); Essential hypertension; Mixed hyperlipidemia; AV block Social History Tobacco Use Types Packs/Day Years Used Date Smoking Tobacco: Former Cigarettes Q uit: 04/29/1983 Smokeless Tobacco: Former Alcohol Use Standard Drinks/Week Comments No 0 (1 standard drink = 0.6 oz pur e alcohol) Sex and Gender Information Value Date Recorded Sex Assigned at Not on file Legal Sex Male 8:04 PM PROJECT MANAGEMENT CONSULTANT Gender Identity Male 07/10/2021 8:31 AM CDT Sexual Orientation Straight 06/12/2021 8: 44 AM CDT documented as of this encounter Last Filed Vital Signs Vital Sign Reading Time Taken Comments Blood Pressure 138/82 04/29/2017 11:21 AM CDT Pulse 77 04/29/2017 11:21 AM CDT Temperature - - Respiratory Rate - - Oxygen Saturation - - Inhaled Oxygen Concentration - - Weight 102.9 kg (226 lb 12.8 oz) 2016 11:21 AM CDT Height 180.3 cm (5' 11 ) 04/29/2017 11: 21 AM CDT Body Mass Index 31.63 04/29/2017 11:21 AM CDT documented in this encounter Patient Instructions * Patient Instructions* Patrick Taylor MD - 04/29/2017 11:15 AM CDT documented in this encounter Progress Notes * Patrick Taylor MD - 04/29/2017 11:15 AM CDT Images from the original note were not included. [facility] Cardiology [facility] [address] Cardiology Niko Echevarria, MD Arslan Alcala, MD Patrick Avalos, MD Patrick Taylor, MD Quentin Manzo, DO Elgin Bowles, MD Elia Jett, MD Shanda Edge, MD Kale Faith, DO Ramonita Adamson, ELIEZER Millan, ELIEZER Patient Name: Drew Pak Provider: Patrick Taylor MD : 1940 Date of Service: 04/29/2017 Referring: Maranda CHIEF COMPLAINT: Coronary Artery Disease; Hyperlipidemia; and Hypertension HISTORY OF PRESENT ILLNESS: 76 y.o. male with a history of CAD. He is [id number] male with a history of coronary artery disease/status post coronary artery bypass graft surgery, normal LVfunction, diabetes, hypertension, right bundle-branch block, and dyslipidemia. He underwne CABG by Dr. Go at [facility] in [place] on 10/18/2003, with separate saphenous vein grafts to the first obtuse marginal, second obtuse marginal, and posterior descending branch of the right coronary artery. The patient has bifascicular block (right bundle branch block/LAFB). While he was taking 25 milligrams of carvedilol, he apparently had some significant AV block. Initially, pacemaker was recommendedat an outside hospital. He refused. The carvedilol was discontinued. He had a 7 day event monitor and saw our electrophysiology service. He had no worrisome arrhythmias during the time, feels great now, and has no complaints. He is seeking routine cardiology follow- up now. MEDICATIONS: Outpatient Encounter Prescriptions as of 04/29/2017 Medication Sig Dispense Refill ??? allopurinol (ZYLOPRIM) 100 mg tablet take 1.5 tablet by oral route every day 0 0 ??? amLODIPine (NORVASC) 5 mg tablet take 1 tablet by oral route every day 0 0 ??? aspirin 81 mg tablet take 1 tablet by oral route every day 0 0 ??? diclofenac DR (VOLTAREN) 75 mg EC tablet take 1 tablet by oral route every day 0 0 ??? furosemide (LASIX) 20 mg tablet take 1 tablet by oral route every day 30 0 ??? losartan (COZAAR) 100 mg tablet take 1 tablet by oral route every day 30 0 ??? metFORMIN (GLUCOPHAGE) 1,000 mg tablet take 1 tablet by oral route 2 times every day with morning and evening meals 0 0 ??? xmtjuqxg-jpg-GE-lycopen-lutein (CENTRUM SILVER) 0.4-300-250 mg-mcg-mcg tablet 1 tab daily 0 0 ??? omega-3 fatty acids-fish oil (FISH OIL) 300-1,000 mg capsule 1 capsule daily 0 0 ??? omeprazole (PriLOSEC) 20 mg capsule take 1 capsule by oral route every day before a meal 0 0 ??? potassium citrate ER (UROCIT-K) 15 mEq tablet extended release Take 1 tablet by mouth 2 (two) times a day. 0 ??? simvastatin (ZOCOR) 20 mg tablet take 1 tablet by oral route every day at bedtime 0 0 ??? tamsulosin (FLOMAX) 0.4 mg capsule,extended release 24hr take 1 capsule by oral route every day1/2 hour following the same meal each day 0 0 ??? tiotropium (SPIRIVA WITH HANDIHALER) 18 mcg per inhalation capsule inhale 1 capsule by inhalation route every day 0 0 No facility-administered encounter medications on file as of 04/29/2017. REVIEW OF SYSTEMS: General: No fever, chills, [...] excessive bleeding or bruising PHYSICAL EXAM: BP 138/82 (BP Location: Right arm, Patient Position: Sitting) Pulse 77 Ht 180.3 cm (5' 11 ) Wt 103 kg (226 lb 12.8 oz) BMI 31.63 kg/m?? General: Well appearing, No pain or distress, well nourished Eyes: SARA/EOMI, Conjuctiva Clear ENT: External ears/nose normal Neck: Supple Respiratory: Clear to ausculation bilaterally; no wheezing/rales/rhonchi; respirations nonlabored Cardiovascular: RRR, normal S1 and S2. No S3 or S4. No murmers or rubs. Carotid upstrokes brisk bilaterally and without bruits. Gastrointestinal: soft, non-tender abdomen Extremities: no cyanosis or clubbing or edema Musculoskeletal: no obvious joint deformities Skin: no obvious rash or bruising Psychiatric: normal affect Neurologic: awake/alert, no focal deficits ASSESSMENT & PLAN: Diagnoses and all orders for this visit: 1. Atherosclerosis of [place] coronary artery of [place] heart without angina pectoris (primary) Aggressive risk factor modification. Maximal medical therapy as tolerated. 2. Essential hypertension Maximal medical therapy for control. Low salt diet. Exercise. Monitor as outpatient. 3. Mixed hyperlipidemia Lipid profile 4. AV block Assessment & Plan: No recurrence off beta-tri therapy. Discussed the need to avoid any AV xavier blocking agents. 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 Wayne Davis. No pacemaker at this point Patrick Taylor MD documented in this encounter Miscellaneous Notes * Assessment & Plan Note - Patrick Taylor MD - 04/29/2017 4:28 PM CDT Associated Problem(s): AV node dysfunction No recurrence off beta-tri therapy. Discussed the need to avoid any AV xavier blocking agents. 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 Wayne Davis. No pacemaker at this point documented in this encounter Plan of Treatment Not on file documented as of this encounter Procedures Procedure Name Priority Date/Time Associated Diagnosis Comments LIPID PANEL Routine 09/08/2016 11:26 AM PROJECT MANAGEMENT CONSULTANT documented in this encounter Results * Lipid panel (09/08/2016 11:26 AM PROJECT MANAGEMENT CONSULTANT) SCRIBED Cholesterol, Total 200 l - h EXTERNAL NON-INTERFACE D LAB SCRIBED HDL 37 l - h EXTERNAL NON-INTERFACE D LAB SCRIBED LDL 50 l - h EXTERNAL NON-INTERFACE D LAB SCRIBED Triglycerides 119 l - h EXTERNAL NON-INTERFACE D LAB Blood specimen (specimen) us Historical Provider LAB BLOOD ORDERABLES Sho l Result EXTERNAL NON-INTERFACED LAB [address] [facility] [place] [address] documented in this encounter Visit Diagnoses Diagnosis Atherosclerosis of [place] coronary artery of [place] heart without angina pectoris- Primary Essential hypertension Unspecified essential hypertension Mixed hyperlipidemia AV block Unspecified atrioventricular block documented in this encounter Historical Medications * This list may reflect changes made after this encounter. potassium citrate ER (UROCIT-K) 15 mEq tablet extended release Take 1 tablet by mouth 2 (two) times a day. 0 04/19/2017 04/28/2018 added in this encounter Care Teams Combine Driver Relationship Specialty Start Date End Date Say Low MD [address] [facility] [address] [place] [address] PCP - General 02/15/17 documented as of this encounter
--- OUTSIDE RECORDS SUMMARY | 2024-09-22 19:08 | XMS_ITS | Encounter Summary ---
Author Organization [facility] Address [address] [place] [address] Care Team Providers Care Green Feed Attendant Name Role Phone Say Low MD Primary Care Provider [phone] Reason for Visit * Reason Onset Date Comments future procedure 10/31/2017 kidney stone holloway rgery Encounter Details Date Type Department Care Team (Late st Contact Info) Description 10/31/2017 Telephone Arrhythmia Center [address] [facility] [address] [address] Wayne Davis MD [address] [facility] [address] [place] [address] future procedure (kidney stone surgery) Social History Tobacco Use Types Packs/Day Years Used Date Smoking Tobacco: Former Cigarettes Q uit: 04/29/1983 Smokeless Tobacco: Former Alcohol Use Standard Drinks/Week Comments No 0 (1 standard drink = 0.6 oz pur e alcohol) Sex and Gender Information Value Date Recorded Sex Assigned at Not on file Legal Sex Male 8:04 PM DANCE MASTER Gender Identity Male 07/10/2021 8:31 AM CDT Sexual Orientation Straight 06/12/2021 8: 44 AM CDT documented as of this encounter Miscellaneous Notes * Telephone Encounter - Candice Estrada RN - 11/08/2017 6:11 PM CST I spoke with the nurse and faxed the device CRMD form over to her E MASTER * Telephone Encounter - Nerissa Baer - 11/08/2017 11:16 AM CST Candice faxed CRMD form on 11/07/17 E MASTER * Telephone Encounter - Caitlyn Giron MA - 10/31/2017 12:30 PM CST Tatyana with Dr. Thurston's office called stating patient has kidney stone surgery on 11/16/17. Pt informed Tatyana she needed to contact Candice regarding his pacemaker ([employer] L111 pacemakerimplanted on 07/04/17 for Mobitz II). Please contact Tatyana at [phone]. E MASTER documented in this encounter Plan of Treatment Not on file documented as of this encounter Visit Diagnoses Not on filedocumented in this encounter Care Teams Green Feed Attendant Relationship Specialty Start Date End Date Say Low MD [address] [facility] [address] [place] [address] PCP - General 02/15/17 documented as of this encounter
--- OUTSIDE RECORDS SUMMARY | 2024-09-22 19:08 | XMS_ITS | Encounter Summary ---
Author Organization [facility] Healthcare Address [address] [place] [address] Care Team Providers Care Racker Octave Board Name Role Phone Say Low MD Primary Care Provider [phone] Encounter Details Date Type Department Care Team (Latest Contact Info) Description 10/06/2017 10:38 AM SUPERVISOR OPERATIONS - 10/06/2017 11:[address] [facility] Hospital Encounter [facility] [phone] Concetta Coleman MD [address] [place], [place] [id number] Discharge Disposition: Discharge to home or self care Social History Tobacco Use Types Packs/Day Years Used Date Smoking Tobacco: Former Cigarettes Q uit: 04/29/1983 Smokeless Tobacco: Former Alcohol Use Standard Drinks/Week Comments No 0 (1 standard drink = 0.6 oz pur e alcohol) Sex and Gender Information Value Date Recorded Sex Assigned at Not on file Legal Sex Male 8:04 PM SUPERVISOR OPERATIONS Gender Identity Male 07/10/2021 8:31 AM CDT [...] and evening meals 0 0 09/10/2015 8 jqprgrnb-upr-MX- lycopen-lutein (CENTRUM SILVER) 0.4-300-250 mg-mcg-mcg tablet 1 [...] Diagnosis Comments ABDOMINAL RADIOGRAPHY, FRONTAL (AP) Routine 10/06/2017 5:09 PM SUPERVISOR OPERATIONS documented in this encounter Results * ABDOMINAL RADIOGRAPHY, FRONTAL (AP) (10/06/2017 5:09 PM SUPERVISOR OPERATIONS) Anatomical Region Laterality Modality N/A Radiographic Anna ging 10/06/2017 5:09 PM SUPERVISOR OPERATIONS Narrative 10/06/2017 7:20 PM SUPERVISOR OPERATIONS CURTIS HUBER M.D. TREASURE ARRIAGA M.D. FINAL REPORT The radiology attending physician has personally reviewed this study, and has reviewed and/or edited this written report and agrees with it. ACC# ??Date Time ??Exam [id number] Oct 06, 2017 11:09:00 [id number] Abdomen 1view AP Supine EXAMINATION: ??Abdomen one view HISTORY: Nephrolithiasis COMPARISON: Abdominal CT dated 02/11/2017 IMPRESSION: ??A single view of the abdomen is submitted for interpretation. ??Median sternotomy wires and partially visualized pacer wires are noted. ??There is a calcified body projecting over the lower pole of the left kidney measuring approximately 1 cm in diameter consistent with left kidney stone seen on prior CT. ??There is a punctate calcified focus projecting over the right kidney which likely represents a small stone. ??Bowel gas pattern is nonobstructive. Electronically signed by: Curtis Huber M.D. Requested By: CONCETTA COLEMAN ?Betty Dictated By: ?? TREASURE ARRIAGA M.D. ??on Oct ??4 2017 12:01P This document has been electronically signed by: CURTIS HUBER M.D. on Oct ??4 2018 ??1:18P [id number] BANG M.D. FINAL REPORT The radiology attending physician has personally reviewed this study, and has reviewed and/or edited this written report and agrees with it. Attending: ??[place], ??CONCETTA Requesting: ??[place], ??CONCETTA Requesting Fax: ?? Attending Fax: ?? Attending ID: ??[id number] Requesting ID: ??[id number] Report To 1 ID: ??[id number] ? Report To 1 Name: ??, ?? Report To 1 FAX: ?? NextGen Order #: ?? Procedure Note Miscellaneous, Not In File - 10/06/2017 Juve BANG M.D. FINAL REPORT The radiology attending physician has personally reviewed this study, and has reviewed and/or edited this written report and agrees with it. ACC# Date Time Exam [id number] Oct 06, 2017 11:09:00 [id number] Abdomen 1view AP Supine EXAMINATION: Abdomen one view HISTORY: Nephrolithiasis COMPARISON: Abdominal CT dated 02/11/2017 IMPRESSION: A single view of the abdomen is submitted for interpretation. Median sternotomy wires and partially visualized pacer wires are noted. There is a calcified body projecting over the lower pole of the left kidney measuring approximately 1 cm in diameter consistent with left kidney stone seen on prior CT. There is a punctate calcified focus projecting over the right kidney which likely represents a small stone. Bowel gas pattern is nonobstructive. Electronically signed by: Curtis Huber M.D. Requested By: CONCETTA COLEMAN M.D. Dictated By: TREASURE ARRIAGA M.D. on Oct 06 2017 12:01P This document has been electronically signed by: CURTIS HUBER M.D. on Oct 06 2017 1:18P [id number] BANG M.D. FINAL REPORT The radiology attending physician has personally reviewed this study, and has reviewed and/or edited this written report and agrees with it. Attending: CONCETTA COLEMAN Requesting: CONCETTA COLEMAN Requesting Fax: Attending Fax: Attending ID: [id number] Requesting ID: [id number] Report To 1 ID: [id number] Report To 1 Name: , Report To 1 FAX: NextGen Order #: Concetta Coleman MD IMG XR PROCEDURES Final Result documented in this encounter Visit Diagnoses Not on filedocumented in this encounter Care Teams Racker Octave Board Relationship Specialty Start Date End Date Say Low MD [address] [facility] [address] [place] [id number] PCP - General 02/15/17 documented as of this encounter
--- OUTSIDE RECORDS SUMMARY | 2024-09-22 19:09 | XMS_ITS | Encounter Summary ---
Author Organization [facility] Facility Care Team Providers Care Advertising Sales Executive Name Role Phone Say Low MD Primary Care Provider [phone] Encounter Details Date Type Department Care Team (Latest Contact Info) Description 10/17/2015 - 10/17/2015 11:59 PM OFFICE CHAIR ASSEMBLER Hospital Encounter [facility] [place] [address] [place] [address] Other fracture of lower end of right tibia, subsequent encounter for closed fracture with delayed healing; Other mechanical complication of other internal joint prosthesis, subsequent encounter; Primary osteoarthritis, right ankle and foot Social History Tobacco Use Types Packs/Day Years Used Date Smoking Tobacco: Former Cigarettes Q uit: 10/03/1982 Alcohol Use Standard Drinks/Week Comments No 0 (1 standard drink = 0.6 oz pur e alcohol) Sex and Gender Information Value Date Recorded Sex Assigned at Not on file Legal Sex Male 8:04 PM OFFICE CHAIR ASSEMBLER Gender Identity Male 07/10/2021 8:31 AM CDT [...] route every day 0 0 09/10/[address] (VOLTAREN) 75 mg EC tablet take 1 tablet by oral route every day 0 0 09/10/2015 1 furosemide (LASIX) 20 mg tablet take 1 tablet by oral route every day 30 0 09/10/2015 0 metFORMIN (GLUCOPHAGE) 1,000 mg tablet take 1 tablet by oral route 2 times every day with morning and evening meals 0 0 09/10/2015 8 kqmchnid-tqq-MR- lycopen-lutein (CENTRUM SILVER) 0.4-300-250 mg-mcg-mcg tablet 1 [...] 09/10/2015 0 documented as of this encounter Plan of Treatment Not on file documented as of this encounter Procedures Procedure Name Priority Date/Time Associated Diagnosis Comments XR ANKLE 3+ VW Routine 10/17/2015 7:55 AM OFFICE CHAIR ASSEMBLER documented in this encounter Results * XR Ankle 3+ Vw (10/17/2015 7:55 AM OFFICE CHAIR ASSEMBLER) Anatomical Region Laterality Modality N/A Radiographic Anna ging 10/17/2015 7:5 5 AM OFFICE CHAIR ASSEMBLER Narrative 10/17/2015 8:34 AM OFFICE CHAIR ASSEMBLER BINDU BAUTISTA M.D. FINAL REPORT ACC# ??Date Time ??Exam [id number] Oct 17, 2015 07:55:00 [id number] Ankle Complt. min 3 views R EXAMINATION: ?Right ankle complete minimum 3 views HISTORY: ??Distal right tibial fracture and posttraumatic osteoarthritis FINDINGS: ?? A 3 view weight-bearing examination of the right ankle is submitted for interpretation with comparison to a prior study dated 11/01/2014. There is an internally fixated comminuted intra-articular fracture of the distal tibia transfixed with a locking plate and screws and multiple interfragmentary screws. There has been progressive loss of joint space at the tibiotalar joint. ??One of the fixation screws now contacts the tibiotalar joint and is backing out anteriorly. ??The medial portion of the fracture line in the distal tibia remains ununited. IMPRESSION: ?? 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 ??A fixation screw now contacts the tibiotalar joint space and is backing out. Requested By: Dictated By: ?? BINDU BAUTISTA M.D. ??on Oct 17 2015 ??8:34A This document has been electronically signed by: BINDU BAUTISTA M.D. on Oct 17 2015 ??8:34A [id number] Procedure Note Provider, MD Giovanni - 02/02/2017 BINDU BAUTISTA M.D. FINAL REPORT ACC# Date Time Exam [id number] Oct 17, 2015 07:55:00 [id number] Ankle Complt. min 3 views R EXAMINATION: Right ankle complete minimum 3 views HISTORY: Distal right tibial fracture and posttraumatic osteoarthritis FINDINGS: A 3 view weight-bearing examination of the right ankle is submitted for interpretation with comparison to a prior study dated 11/01/2014. There is an internally fixated comminuted intra-articular fracture of the distal tibia transfixed with a locking plate and screws and multiple interfragmentary screws. There has been progressive loss of joint space at the tibiotalar joint. One of the fixation screws now contacts the tibiotalar joint and is backing out anteriorly. The medial portion of the fracture line in the distal tibia remains ununited. 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 A fixation screw now contacts the tibiotalar joint space and is backing out. Requested By: Dictated By: BINDU BAUTISTA M.D. on Oct 17 2015 8:34A This document has been electronically signed by: BINDU BAUTISTA M.D. on Oct 17 2015 8:34A [id number] us Historical Provider MD ESTRELLA XR PROCEDURES Final R esult documented in this encounter Visit Diagnoses Diagnosis Other fracture of lower end of right tibia, subsequent encounter for closed fracture with delayed healing Other mechanical complication of other internal joint prosthesis, subsequent encounter Primary osteoarthritis, right ankle and foot documented in this encounter Care Teams Advertising Sales Executive Relationship Specialty Start Date End Date Say Low MD [address] [facility] [address] [facility] [address] [place] [address] PCP - General 10/13/15 02/10/17 documented as of this encounter
--- OUTSIDE RECORDS SUMMARY | 2024-09-22 19:09 | XMS_ITS | Encounter Summary ---
Author Organization [facility] Facility Care Team Providers Care Deck Engine Operator Name Role Phone Unavailable Primary Care Provider Unavailabl e Encounter Details Date Type Department Care Team (Late st Contact Info) Description 06/16/2009 10:04 AM CDT - 06/16/2009 4:00 PM CDT Hospital Encounter [facility] Patrick Olmos MD [address] [facility] [id number] [place] [address] Other specified pre-operative examination; Urinary calculus; Essential hypertension; Coronary atherosclerosis of [place] coronary artery Social History Tobacco Use Types Packs/Day Years Used Date Smoking Tobacco: Never Assessed Sex and Gender Information Value Date Recorded Sex Assigned at Not on file Legal Sex Male 8:04 PM BATCH AND FURNACE OPERATOR Gender Identity Male 07/10/2021 8:31 AM CDT Sexual Orientation Straight 06/12/2021 8: 44 AM CDT documented as of this encounter Plan of Treatment Not on file documented as of this encounter Visit Diagnoses Diagnosis Other specified pre-operative examination Urinary calculus Unspecified urinary calculus Essential hypertension Unspecified essential hypertension Coronary atherosclerosis of [place] coronary artery documented in this encounter
--- OUTSIDE RECORDS SUMMARY | 2024-09-22 19:09 | XMS_ITS | Encounter Summary ---
Author Organization [facility] Facility Care Team Providers Care Steam Box Tender Name Role Phone Unavailable Primary Care Provider Unavailabl e Encounter Details Date Type Department Care Team (Latest Contact Info) Description 07/25/2009 9:17 AM CDT - 07/25/2009 12:11 PM CDT Hospital Encounter [facility] Ladd [facility] [address] [facility] [address] [phone] [place] [address] Special screening for malignant neoplasms, colon; Benign neoplasm of colon; Coronary atherosclerosis; Postsurgical aortocoronary bypass status; Essential hypertension; Other and unspecified hyperlipidemia; Type 2 or unspecified type diabetes mellitus; Other dyspnea and respiratory abnormality; Family history of malignant neoplasm of gastrointestinal tract Social History Tobacco Use Types Packs/Day Years Used Date Smoking Tobacco: Never Assessed Sex and Gender Information Value Date Recorded Sex Assigned at Not on file Legal Sex Male 8:04 PM BEAM DYER RECESSED VAT Gender Identity Male 07/10/2021 8:31 AM CDT Sexual Orientation Straight 06/12/2021 8: 44 AM CDT documented as of this encounter Plan of Treatment Not on file documented as of this encounter Visit Diagnoses Diagnosis Special screening for malignant neoplasms, colon Benign neoplasm of colon Coronary atherosclerosis Coronary atherosclerosis of unspecified type of vessel, poarch or graft Postsurgical aortocoronary bypass status Essential hypertension Unspecified essential hypertension Other and unspecified hyperlipidemia Type 2 or unspecified type diabetes mellitus Other dyspnea and respiratory abnormality Family history of malignant neoplasm of gastrointestinal tract documented in this encounter
--- OUTSIDE RECORDS SUMMARY | 2024-09-22 19:09 | XMS_ITS | Encounter Summary ---
Author Organization [facility] Facility Care Team Providers Care Stars Coordinator Name Role Phone Unavailable Primary Care Provider Unavailabl e Encounter Details Date Type Department Care Team (Late st Contact Info) Description 11/01/2014 - 11/01/2014 11:59 PM MERCHANDISE DISTRIBUTOR Hospital Encounter [facility] [place] [address] [place] [address] Pain in joint, ankle and foot; Other orthopedic aftercare; Osteoarthrosis, ankle and foot Social History Tobacco Use Types Packs/Day Years Used Date Smoking Tobacco: Never Assessed Sex and Gender Information Value Date Recorded Sex Assigned at Not on file Legal Sex Male 8:04 PM MERCHANDISE DISTRIBUTOR Gender Identity Male 07/10/2021 8:31 AM CDT Sexual Orientation Straight 06/12/2021 8: 44 AM CDT documented as of this encounter Plan of Treatment Not on file documented as of this encounter Procedures Procedure Name Priority Date/Time Associated Diagnosis Comments XR ANKLE 3+ VW Routine 11/01/2014 9:25 AM MERCHANDISE DISTRIBUTOR documented in this encounter Results * XR Ankle 3+ Vw (11/01/2014 9:25 AM MERCHANDISE DISTRIBUTOR) Anatomical Region Laterality Modality N/A Radiographic Anna ging 11/01/2014 9:25 AM MERCHANDISE DISTRIBUTOR Narrative 11/01/2014 10:57 AM MERCHANDISE DISTRIBUTOR BRENDA WILLETT M.D. EM VILA M.D. FINAL REPORT The radiology attending physician has personally reviewed this study, and has reviewed and/or edited this written report and agrees with it. ACC# ??Date Time ??Exam [id number] Nov 01, 2014 09:25:00 [id number] Ankle Complt. min 3 views R ACC# ??Date Time ??Exam [id number] Nov 01, 2014 09:25:00 [id number] Ankle Complt. min 3 views R EXAMINATION: ?Right ankle minimum 3 views HISTORY: ??Distal tibial fracture FINDINGS: ?? Six weight bearing views of the right ankle are evaluated and compared with the right ankle radiographs dated 06/25/2013. There is a healing comminuted intra-articular fracture of the distal tibia transfixed with a locking plate and screws and multiple interfragmentary screws. The distal articulating surface appears congruent and unchanged. There is unchanged moderate posttraumatic ankle osteoarthritis. Ankle mortise is intact. There is an old pin tract in the calcaneus likely from prior external fixation. There is obliteration of the pre-Achilles tendon fat pad, likely due to an accessory soleus muscle. No new fracture. ?? IMPRESSION: Healing comminuted, intra-articular, internally fixed right distal tibial fracture with moderate posttraumatic ankle osteoarthritis. ?? Requested By: MARLA BHATT M.D. Dictated By: ?? EM VILA M.D. ??on Nov 01 2014 10:38A This document has been electronically signed by: BRENDA WILLETT M.D. on Nov 01 2014 10:57A [id number] Procedure Note Provider, MD Giovanni - 02/02/2017 BRENDA WILLETT M.D. EM VILA M.D. FINAL REPORT The radiology attending physician has personally reviewed this study, and has reviewed and/or edited this written report and agrees with it. ACC# Date Time Exam [id number] Nov 01, 2014 09:25:00 [id number] Ankle Complt. min 3 views R ACC# Date Time Exam [id number] Nov 01, 2014 09:25:00 [id number] Ankle Complt. min 3 views R EXAMINATION: Right ankle minimum 3 views HISTORY: Distal tibial fracture FINDINGS: Six weight bearing views of the right ankle are evaluated and compared with the right ankle radiographs dated 06/25/2013. There is a healing comminuted intra-articular fracture of the distal tibia transfixed with a locking plate and screws and multiple interfragmentary screws. The distal articulating surface appears congruent and unchanged. There is unchanged moderate posttraumatic ankle osteoarthritis. Ankle mortise is intact. There is an old pin tract in the calcaneus likely from prior external fixation. There is obliteration of the pre-Achilles tendon fat pad, likely due to an accessory soleus muscle. No new fracture. IMPRESSION: Healing comminuted, intra-articular, internally fixed right distal tibial fracture with moderate posttraumatic ankle osteoarthritis. Requested By: MARLA BHATT M.D. Dictated By: EM VILA M.D. on Nov 01 2014 10:38A This document has been electronically signed by: BRENDA WILLETT M.D. on Nov 01 2014 10:57A [id number] us Historical Provider MD ESTRELLA XR PROCEDURES Final R esult documented in this encounter Visit Diagnoses Diagnosis Pain in joint, ankle and foot Other orthopedic aftercare Osteoarthrosis, ankle and foot Osteoarthrosis, unspecified whether generalized or localized, ankle and foot documented in this encounter
--- OUTSIDE RECORDS SUMMARY | 2024-09-22 19:09 | XMS_ITS | Encounter Summary ---
Author Organization [facility] Address [address] [place] [address] Care Team Providers Care Fence Maker Name Role Phone Say Low MD Primary Care Provider [phone] Unknown, Notinfile Primary Care Provider Unavail able Say Low MD Primary Care Provider [phone] Encounter Details Date Type Department Care Team (Late st Contact Info) Description 09/07/2016 Orders Only [facility] Provider, MD Giovanni [address] [place] [id number] Social History Tobacco Use Types Packs/Day Years Used Date Smoking Tobacco: Former Cigarettes Q uit: 10/03/1982 Alcohol Use Standard Drinks/Week Comments No 0 (1 standard drink = 0.6 oz pur e alcohol) Sex and Gender Information Value Date Recorded Sex Assigned at Not on file Legal Sex Male 8:04 PM UPLANDS DIVISION DIRECTOR Gender Identity Male 07/10/2021 8:31 AM CDT Sexual Orientation Straight 06/12/2021 8: 44 AM CDT documented as of this encounter Plan of Treatment Not on file documented as of this encounter Procedures Procedure Name Priority Date/Time Associated Diagnosis Comments CARDIOLOGY REPORT 09/07/2016 documented in this encounter Results * CARDIOLOGY REPORT (09/07/2016) Anatomical Region Laterality Modality Other Narrative 09/07/2016 Ordered by an unspecified provider. Historical Provider [facility] HÉCTOR VENTURA Final Result documented in this encounter Visit Diagnoses Not on filedocumented in this encounter Care Teams Fence Maker Relationship Specialty Start Date End Date Say Low MD [address] [place] [address] PCP - General 10/13/15 02/10/17 Unknown, Notinfile PCP - General 02/11/17 02/14/17 Say Low MD [address] [place] [address] PCP - General 02/15/17 documented as of this encounter
--- OUTSIDE RECORDS SUMMARY | 2024-09-22 19:09 | XMS_ITS | Encounter Summary ---
Author Organization [facility] Facility Care Team Providers Care Coal Grader Name Role Phone Say Low MD Primary Care Provider [phone] Encounter Details Date Type Department Care Team (Latest Contact Info) Description 10/20/2015 3:58 PM SOLAR PANEL INSTALLATION SUPERVISOR - 10/20/2015 4:00 PM [facility] Hospital Encounter [facility] [address] [place] [address] Encounter for preprocedural cardiovascular examination; Encounter for preprocedural laboratory examination; Pain due to internal orthopedic prosthetic devices, implants and grafts, sequela; Bradycardia; Right bundle-branch block; Essential (primary) hypertension; Atherosclerotic heart disease of [place] tribe coronary artery without angina pectoris; 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); Chronic obstructive pulmonary disease (CMS/HCC); Obesity; Body mass index (BMI) of 32.0-32.9 in adult; Presence of aortocoronary bypass graft; buttermaker 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 current 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 of aspirin; Other medical terminologist (current) drug therapy; Family history of diabetes mellitus; Personal history of nicotine dependence; Other surgical procedures as the cause of abnormal reaction of the patient, or of later complication, without mention of misadventure at the time of the procedure Social History Tobacco Use Types Packs/Day Years Used Date Smoking Tobacco: Former Cigarettes Q uit: 10/03/1982 Alcohol Use Standard Drinks/Week Comments No 0 (1 standard drink = 0.6 oz pur e alcohol) Sex and Gender Information Value Date Recorded Sex Assigned at Not on file Legal Sex Male 8:04 PM SOLAR PANEL INSTALLATION SUPERVISOR Gender Identity Male 07/10/2021 8:31 AM [...] and evening meals 0 0 09/10/2015 8 [id number]- lycopen-lutein (CENTRUM SILVER) 0.4-300-250 mg-mcg-mcg tablet 1 [...] Procedure Name Priority Date/Time Associated Diagnosis Comments PLASMA BASIC METABOLIC PANEL Routine 10/20/2015 5:23 PM SOLAR PANEL INSTALLATION SUPERVISOR ELECTROCARDIOGRAPHY (ECG) 10/20/2015 DISCHARGE LABORATORY CUMULATIVE REPORT 10/20/2015 documented in this encounter Results * (ABNORMAL) Plasma basic metabolic panel (10/20/2015 5:23 PM SOLAR PANEL INSTALLATION SUPERVISOR) Sodium 143 135 - 145 mmol/L HISTORICAL RESULTS K, pl 5.1(H) 3.3 - 4.9 mmol/L HISTORICAL RESULTS Chloride 107 97 - 110 mmol/L HISTORICAL RESULTS CO2 26 22 - 32 mmol/L HISTORICAL RESULTS A. gap 10 0 - 16 mmol/L HISTORICAL RESULTS Glucose 84 70 - 199 mg/dl HISTORICAL RESULTS BUN 25 8 - 25 mg/dl HISTORICAL RESULTS Creatinine 1.28 0.70 - 1.30 mg/dl HISTORICAL RESULTS Calcium 9.4 8.6 - 10.3 mg/dl HISTORICAL RESULTS Plasma 10/20/2015 5:23 PM SOLAR PANEL INSTALLATION SUPERVISOR Result [facility] Scarlett Garcia NP LAB BLOOD ORDERABLES Sho l Result HISTORICAL RESULTS * DISCHARGE LABORATORY CUMULATIVE REPORT (10/20/2015) Narrative 10/20/2015 Ordered by an unspecified provider. Historical Provider LAB BLOOD ORDERABLES Sho l Result * ELECTROCARDIOGRAPHY (ECG) (10/20/2015) Narrative 10/20/2015 Ordered by an unspecified provider. 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) (HCC) Chronic obstructive pulmonary disease (HCC) Obesity Obesity, unspecified Body mass index (BMI) of 32.0-32.9 in adult Presence of aortocoronary bypass graft penitentiary current use of aspirin Other snf (current) drug therapy Family history of diabetes mellitus Personal history of nicotine dependence Other surgical procedures as the cause of abnormal reaction of the patient, or of later complication, without mention of misadventure at the time of the procedure documented in this encounter Care Teams Coal Grader Relationship Specialty Start Date End Date Say Low MD [address] [facility] [address] [facility] [address] [place] [id number] PCP - General 10/13/15 02/10/17 documented as of this encounter
--- OUTSIDE RECORDS SUMMARY | 2024-09-22 19:09 | XMS_ITS | Encounter Summary ---
Author Organization [facility] Facility Care Team Providers Care Rn Procedure Name Role Phone Unavailable Primary Care Provider Unavailabl e Encounter Details Date Type Department Care Team (Late st Contact Info) Description 06/26/2009 5:48 AM CDT - 06/26/2009 9:24 PM CDT Hospital Encounter [facility] Patrick Olmos MD [address] [facility] [phone] [place] [address] Calculus of kidney; Coronary atherosclerosis of [place] coronary artery; Essential hypertension; Type 2 or unspecified type diabetes mellitus; Pure hypercholesterolemia; Gout Social History Tobacco Use Types Packs/Day Years Used Date Smoking Tobacco: Never Assessed Sex and Gender Information Value Date Recorded Sex Assigned at Not on file Legal Sex Male 8:04 PM OIL AND GAS EXPLORATION TECHNICIAN Gender Identity Male 07/10/2021 8:31 AM CDT Sexual Orientation Straight 06/12/2021 8: 44 AM CDT documented as of this encounter Plan of Treatment Not on file documented as of this encounter Visit Diagnoses Diagnosis Calculus of kidney Coronary atherosclerosis of [place] coronary artery Essential hypertension Unspecified essential hypertension Type 2 or unspecified type diabetes mellitus Pure hypercholesterolemia Gout Gout, unspecified documented in this encounter
--- OUTSIDE RECORDS SUMMARY | 2024-09-22 19:09 | XMS_ITS | Encounter Summary ---
Author Organization [facility] Facility Care Team Providers Care Physician Pediatrician Name Role Phone Unavailable Primary Care Provider Unavailabl e Encounter Details Date Type Department Care Team (Late st Contact Info) Description 12/09/2010 - 12/09/2010 11:59 PM LEAD TECHNICIAN Hospital Encounter [facility] Patrick Olmos MD [address] [facility] [phone] [place] [address] Elevated prostate specific antigen (PSA) Social History Tobacco Use Types Packs/Day Years Used Date Smoking Tobacco: Never Assessed Sex and Gender Information Value Date Recorded Sex Assigned at Not on file Legal Sex Male 8:04 PM LEAD TECHNICIAN Gender Identity Male 07/10/2021 8:31 AM CDT Sexual Orientation Straight 06/12/2021 8: 44 AM CDT documented as of this encounter Plan of Treatment Not on file documented as of this encounter Visit Diagnoses Diagnosis Elevated prostate specific antigen (PSA) documented in this encounter
--- OUTSIDE RECORDS SUMMARY | 2024-09-22 19:09 | XMS_ITS | Encounter Summary ---
Author Organization [facility] Facility Care Team Providers Care Retirement Consultant Name Role Phone Unavailable Primary Care Provider Unavailabl e Encounter Details Date Type Department Care Team (Late st Contact Info) Description 08/19/2010 - 08/19/2010 11:59 PM MAINTENANCE AND REPAIR WORKER Hospital Encounter [facility] Patrick Olmos MD [address] [facility] [phone] [place] [address] Prostatitis; Elevated prostate specific antigen (PSA) Social History Tobacco Use Types Packs/Day Years Used Date Smoking Tobacco: Never Assessed Sex and Gender Information Value Date Recorded Sex Assigned at Not on file Legal Sex Male 8:04 PM MAINTENANCE AND REPAIR WORKER Gender Identity Male 07/10/2021 8:31 AM CDT Sexual Orientation Straight 06/12/2021 8: 44 AM CDT documented as of this encounter Plan of Treatment Not on file documented as of this encounter Visit Diagnoses Diagnosis Prostatitis Unspecified prostatitis Elevated prostate specific antigen (PSA) documented in this encounter
--- OUTSIDE RECORDS SUMMARY | 2024-09-22 19:09 | XMS_ITS | Encounter Summary ---
Author Organization [facility] Facility Care Team Providers Care Commercial Artist Name Role Phone Say Low MD Primary Care Provider Encounter Details Date Type Department Care Team (Latest Contact Info) Description 10/24/2015 5:31 AM PUNCHBOARD INSERTER - 10/24/2015 4:00 PM [facility] Hospital Encounter [facility] [place] [address] [place] [address] Pain due to internal orthopedic prosthetic devices, implants and grafts, sequela; Type 2 diabetes mellitus without complications (CMS/HCC); Essential (primary) hypertension; Atherosclerotic heart disease of [place] coronary artery without angina pectoris; Hyperlipidemia; Gout; Vitamin D deficiency; Presence of aortocoronary bypass graft; Personal history of nicotine dependence; superintendent terminal current use of aspirin; Other intermediate project manager (current) drug therapy Social History Tobacco Use Types Packs/Day Years Used Date Smoking Tobacco: Former Cigarettes Q uit: 10/03/1982 Alcohol Use Standard Drinks/Week Comments No 0 (1 standard drink = 0.6 oz pur e alcohol) Sex and Gender Information Value Date Recorded Sex Assigned at Not on file Legal Sex Male 8:04 PM PUNCHBOARD INSERTER Gender Identity Male 07/10/2021 8:31 AM [...] and evening meals 0 0 09/10/2015 8 [id number]-VI- lycopen-lutein (CENTRUM SILVER) 0.4-300-250 mg-mcg-mcg tablet 1 [...] 09/10/2015 0 documented as of this encounter Miscellaneous Notes * Op Note - Provider, MD Giovanni - 10/24/2015 12:00 AM CST Patient: DREW NEWMAN Reg No: [id number] U H #: [id number] Admit Dt.: 10/24/2015 : 1940 Pt Type: NOP Room No: OR- Attending: Chuck Jhaveri M.D. Surgeon: Chuck Jhaveri M.D. Dictating: Chuck Jhaveri M.D. Service Dt: 10/24/2015 OPERATIVE REPORT [facility] TECHNICIAN: Srinivasa Lainez M.D. ANESTHESIA: Intravenous sedation with local infiltration of 0.5% Marcaine anterior ankle. PREOPERATIVE DIAGNOSIS (ES): Right ankle pain. Status-post open reduction internal fixation of right tibial Pilon fracture July,. Painful hardware anterolateral right ankle. POSTOPERATIVE DIAGNOSIS (ES): Right ankle pain. Status-post open reduction internal fixation of right tibial Pilon fracture July,. Painful hardware anterolateral right ankle. NAME OF OPERATION: Removal of buried screw anterolateral right ankle. INDICATIONS FOR PROCEDURE: The patient is a 75-year-old male who, in June,, fell from a ladder onto a concrete surface sustaining a right tibial Pilon fracture. 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 He has done well with minimal pain until recently, when he began to have pain over some prominent hardware on the anterolateral aspect of the right ankle and, therefore, operative treatment is indicated for removal of a buried screw, which has backed out slightly. DESCRIPTION OF PROCEDURE: Patient brought to the operating room and placed supine on the operating table. intravenous sedation was administered. A bump was placed under the right buttock. Alcohol prep of the anterolateral ankle was performed and then about 16 milliliters of 0.5% Marcaine without epinephrine was infiltrated as a local field block of the superficial peroneal nerve over the anterolateral aspect of the right ankle and some local infiltration directly around the prominent screw. Then, the right foot and leg were prepped and draped in the usual sterile fashion. The C-arm was brought in and under C-arm control, the head of the screw that was causing the pain was localized and marked. Then, an incision was made over the anterolateral aspect of the ankle. Dissection was carried through the skin and subcutaneous tissue, taking great care to avoid the superficial peroneal nerve, which was not encountered. The screw head was identified and then utilizing the appropriate screwdriver, the 4.0 millimeters screw was backed out from its position buried in the distal tibial bone. The wound was then irrigated and closed with interrupted horizontal nylon mattress suture, and then a light ankle dressing was applied with gauze wrap and then a 2-inch Coban. The patient was placed back into his walker boot in the operating room and then patient was awakened and returned to the recovery room in stable condition. There were no complications. POSTOPERATIVE RADIOGRAPHIC INTERPRETATION NOTE: Two views of the right ankle were obtained from the right ankle at the conclusion of the above procedure, but prior to wound closure. Radiographs demonstrate that there has been removal of the screw that was prominent on the anterolateral aspect of the right ankle. There is evidence of a distal tibial Pilon fracture fixation with osteoarthritis of the right ankle joint with possible autofusion. The images were saved on the C-arm, but the printer was malfunctioning and could not print. TOTAL TOURNIQUET TIME: Zero. DRAINS: None. ESTIMATED BLOOD LOSS: 5 milliliters. BLOOD REPLACEMENT: None. INTRAOPERATIVE FLUIDS: Total fluids of 500 milliliters of crystalloid. SPONGE/INSTRUMENT/NEEDLE COUNTS: Sponge and needle counts were correct. COMPLICATIONS: None. PRESENCE STATEMENT: Please note that I was present for the entire procedure, from beginning to end, including application of the dressing. Electronically Authenticated by: Chuck Jhaveri MD On 10/25/2015 02:01 PM PUNCHBOARD INSERTER Juve Salas:carlos #[id number] Editing MT: carlos TD: 10/24/2015 09:49 AM cc: Chuck Jhaveri M.D. documented in this encounter Plan of Treatment Not on file documented as of this encounter Procedures Procedure Name Priority Date/Time Associated Diagnosis Comments BLOOD ELECTROLYTE, HEMOGLOBIN, HEMATOCRIT PANEL, I-STAT Routine 10/24/2015 7:02 AM PUNCHBOARD INSERTER DISCHARGE LABORATORY CUMULATIVE REPORT 10/24/2015 documented in this encounter Results * Blood electrolyte, hemoglobin, hematocrit panel, I-Stat (10/24/2015 7:02 AM PUNCHBOARD INSERTER) Potassium, bld 4.0 3.3 - 4.9 mmol/L HISTORICAL RESULTS Glucose, POC, bld 128 70 - 199 mg/dl HISTORICAL RESULTS Blood specimen (specimen) 10/24/2015 7:02 AM PUNCHBOARD INSERTER Chuck Jhaveri MD LAB BLOOD ORDERABLES Final Result HISTORICAL RESULTS * DISCHARGE LABORATORY CUMULATIVE REPORT (10/24/2015) Narrative 10/24/2015 Ordered by an unspecified provider. Historical Provider LAB BLOOD ORDERABLES Sho l Result documented in this encounter Visit Diagnoses Diagnosis Pain due to internal orthopedic prosthetic devices, implants and grafts, sequela Type 2 diabetes mellitus without complications (CMS/HCC) (HCC) Essential (primary) hypertension Unspecified essential hypertension Atherosclerotic heart disease of [place] coronary artery without angina pectoris Hyperlipidemia Other and unspecified hyperlipidemia Gout Gout, unspecified Vitamin D deficiency Presence of aortocoronary bypass graft Personal history of nicotine dependence superintendent terminal current use of aspirin Other detention (current) drug therapy documented in this encounter Care Teams Commercial Artist Relationship Specialty Start Date End Date Say Low MD [address] [facility] [address] [facility] [address] [place] [address] PCP - General 10/13/15 02/10/17 documented as of this encounter
--- OUTSIDE RECORDS SUMMARY | 2024-09-22 19:09 | XMS_ITS | Encounter Summary ---
Author Organization [facility] Facility Care Team Providers Care Head Rigger Name Role Phone Unavailable Primary Care Provider Unavailabl e Encounter Details Date Type Department Care Team (Late st Contact Info) Description 09/22/2012 - 09/22/2012 11:59 PM HEAD OF CYTOGENETICS Hospital Encounter [facility] [place] [address] [facility] [address] [place] [address] Other orthopedic aftercare Social History Tobacco Use Types Packs/Day Years Used Date Smoking Tobacco: Never Assessed Sex and Gender Information Value Date Recorded Sex Assigned at Not on file Legal Sex Male 8:04 PM HEAD OF CYTOGENETICS Gender Identity Male 07/10/2021 8:31 AM CDT Sexual Orientation Straight 06/12/2021 8: 44 AM CDT documented as of this encounter Plan of Treatment Not on file documented as of this encounter Visit Diagnoses Diagnosis Other orthopedic aftercare documented in this encounter
--- OUTSIDE RECORDS SUMMARY | 2024-09-22 19:09 | XMS_ITS | Encounter Summary ---
Author Organization [facility] Facility Care Team Providers Care Internal Controls Analyst Name Role Phone Unavailable Primary Care Provider Unavailabl e Encounter Details Date Type Department Care Team (Late st Contact Info) Description 09/18/2014 2:13 PM PROGRAM CHECKER - 09/18/2014 4:00 PM PROGRAM CHECKER Hospital Encounter [facility] Kiswahili, Jackie Shields MD [address] [facility] [address] [place] [address] Pain in joint, shoulder region; Localized osteoarthrosis, shoulder region Social History Tobacco Use Types Packs/Day Years Used Date Smoking Tobacco: Never Assessed Sex and Gender Information Value Date Recorded Sex Assigned at Not on file Legal Sex Male 8:04 PM PROGRAM CHECKER Gender Identity Male 07/10/2021 8:31 AM CDT Sexual Orientation Straight 06/12/2021 8: 44 AM CDT documented as of this encounter Plan of Treatment Not on file documented as of this encounter Procedures Procedure Name Priority Date/Time Associated Diagnosis Comments XR SHOULDER 2+ VW Routine 09/18/2014 2:2 9 PM PROGRAM CHECKER documented in this encounter Results * XR Shoulder 2+ Vw (09/18/2014 2:29 PM PROGRAM CHECKER) Anatomical Region Laterality Modality Shoulder N/A Radiographic Anna ging 09/18/2014 2:29 PM PROGRAM CHECKER Narrative 09/18/2014 2:39 PM PROGRAM CHECKER SOMMER OTT M.D. FINAL REPORT ACC# ??Date Time ??Exam [id number] Sep 18, 2014 14:29:00 [id number] Shoulder minimum 2 views R EXAMINATION: ?Right shoulder minimum 2 views HISTORY: ??Shoulder osteoarthritis FINDINGS: ?? Four views of the right shoulder are submitted without comparison. Alignment is normal. The glenohumeral joint space is normal. There is mild acromioclavicular osteoarthritis. There is a small subacromial spur. There is no fracture. Median sternotomy wires and mediastinal surgical clips are noted. IMPRESSION: ?? Mild right acromioclavicular osteoarthritis with small subacromial spur. Requested By: Dictated By: ?? SOMMER OTT M.D. ??on Sep 18 2014 ??2:39P This document has been electronically signed by: SOMMER OTT M.D. on Sep 18 2014 ??2:39P Procedure Note Provider, Giovanni, - 02/02/2017 SOMMER OTT M.D. FINAL REPORT ACC# Date Time Exam [id number] Sep 18, 2014 14:29:00 [id number] Shoulder minimum 2 views R EXAMINATION: Right shoulder minimum 2 views HISTORY: Shoulder osteoarthritis FINDINGS: Four views of the right shoulder are submitted without comparison. Alignment is normal. The glenohumeral joint space is normal. There is mild acromioclavicular osteoarthritis. There is a small subacromial spur. There is no fracture. Median sternotomy wires and mediastinal surgical clips are noted. IMPRESSION: Mild right acromioclavicular osteoarthritis with small subacromial spur. Requested By: Dictated By: SOMMER OTT M.D. on Sep 18 2014 2:39P This document has been electronically signed by: SOMMER OTT M.D. on Sep 18 2014 2:39P us Historical Provider MD ESTRELLA XR PROCEDURES Final R esult documented in this encounter Visit Diagnoses Diagnosis Pain in joint, shoulder region Localized osteoarthrosis, shoulder region Localized osteoarthrosis not specified whether primary or secondary, shoulder region documented in this encounter
--- OUTSIDE RECORDS SUMMARY | 2024-09-22 19:09 | XMS_ITS | Encounter Summary ---
Author Organization [facility] Facility Care Team Providers Care Wrapper Selector Name Role Phone Unavailable Primary Care Provider Unavailabl e Encounter Details Date Type Department Care Team (Late st Contact Info) Description 07/22/2010 - 07/22/2010 11:59 PM CDT Hospital Encounter [facility] Patrick Olmos MD [address] [facility] [phone] [place] [address] Calculus of kidney; Other postprocedural states Social History Tobacco Use Types Packs/Day Years Used Date Smoking Tobacco: Never Assessed Sex and Gender Information Value Date Recorded Sex Assigned at Not on file Legal Sex Male 8:04 PM ASSISTANT AUDITOR Gender Identity Male 07/10/2021 8:31 AM CDT Sexual Orientation Straight 06/12/2021 8: 44 AM CDT documented as of this encounter Plan of Treatment Not on file documented as of this encounter Visit Diagnoses Diagnosis Calculus of kidney Other postprocedural states documented in this encounter
--- OUTSIDE RECORDS SUMMARY | 2024-09-22 19:09 | XMS_ITS | Encounter Summary ---
Author Organization [facility] Facility Care Team Providers Care Transit Mechanic Name Role Phone Unavailable Primary Care Provider Unavailabl e Encounter Details Date Type Department Care Team (Late st Contact Info) Description 10/23/2014 - 10/23/2014 11:59 PM PROFESSOR OF ART Hospital Encounter [facility] Sprain of rotator cuff capsule Social History Tobacco Use Types Packs/Day Years Used Date Smoking Tobacco: Never Assessed Sex and Gender Information Value Date Recorded Sex Assigned at Not on file Legal Sex Male 8:04 PM PROFESSOR OF ART Gender Identity Male 07/10/2021 8:31 AM CDT Sexual Orientation Straight 06/12/2021 8: 44 AM CDT documented as of this encounter Plan of Treatment Not on file documented as of this encounter Procedures Procedure Name Priority Date/Time Associated Diagnosis Comments US EXTREMITY COMPLETE Routine 10/23/2014 12:00 PM PROFESSOR OF ART documented in this encounter Results * US Extremity Complete (10/23/2014 12:00 PM PROFESSOR OF ART) Anatomical Region Laterality Modality Extremity N/A Ultrasound 10/23/2014 12:0 0 PM PROFESSOR OF ART Narrative 10/23/2014 1:11 PM PROFESSOR OF ART GILDA RAMIREZ M.D. JOSE J MUNOZ FINAL REPORT The radiology attending physician has personally reviewed this study, and has reviewed and/or edited this written report and agrees with it. ACC# ??Date Time ??Exam [id number] Oct 23, 2014 12:00:00 [id number] Extremity Sono Complete R ACC# ??Date Time ??Exam [id number] Oct 23, 2014 12:00:00 10234 Extremity Sono Complete R EXAMINATION: ?SHOULDER SONOGRAM HISTORY: ??74 year old male with history of injury approximately one month ago and right shoulder pain FINDINGS: Right Shoulder: The biceps tendon is intact and located in the groove. There is a small amount of bicep tendon sheath synovial thickening, however no increased vascularity. There is a small subdeltoid bursal effusion. The subscapularis is intact with a 2 mm echogenic focus with posterior shadowing. ??There is a full-thickness tear of the posterior cuff. The torn tendon end is retracted 16 mm; ??tear width measures 12 mm. ?? The tear begins at the intra-articular portion of the biceps tendon. ??The remainder of the rotator cuff is intact. ??There is no tendinopathy of the remainder of the cuff. There is no fatty infiltration of the supraspinatus, infraspinatus, or teres minor muscles. ?? IMPRESSION: 1. Bicep tendon sheath thickening. 2. Full- thickness rotator cuff tear as described above. ?? Requested By: LEXI RAM M.D. Dictated By: ?? JOSE J MUNOZ ??on Oct 23 2014 12:27P This document has been electronically signed by: GILDA RAMIREZ M.D. on Oct 23 2014 ??1:11P Procedure Note Provider, MD Giovanni - 02/02/2017 Juve JALLOH PA HO FINAL REPORT The radiology attending physician has personally reviewed this study, and has reviewed and/or edited this written report and agrees with it. ACC# Date Time Exam [id number] Oct 23, 2014 12:00:00 [id number] Extremity Sono Complete R ACC# Date Time Exam [id number] Oct 23, 2014 12:00:00 [id number] Extremity Sono Complete R EXAMINATION: SHOULDER SONOGRAM HISTORY: 74 year old male with history of injury approximately one month ago and right shoulder pain FINDINGS: Right Shoulder: The biceps tendon is intact and located in the groove. There is a small amount of bicep tendon sheath synovial thickening, however no increased vascularity. There is a small subdeltoid bursal effusion. The subscapularis is intact with a 2 mm echogenic focus with posterior shadowing. There is a full-thickness tear of the posterior cuff. The torn tendon end is retracted 16 mm; tear width measures 12 mm. The tear begins at the intra-articular portion of the biceps tendon. The remainder of the rotator cuff is intact. There is no tendinopathy of the remainder of the cuff. There is no fatty infiltration of the supraspinatus, infraspinatus, or teres minor muscles. IMPRESSION: 1. Bicep tendon sheath thickening. 2. Full- thickness rotator cuff tear as described above. Requested By: LEXI RAM M.D. Dictated By: JOSE J MUNOZ on Oct 23 2014 12:27P This document has been electronically signed by: GILDA RAMIREZ M.D. on Oct 23 2014 1:11P us Historical Provider MD ESTRELLA US PROCEDURES Final R esult documented in this encounter Visit Diagnoses Diagnosis Sprain of rotator cuff capsule Rotator cuff (capsule) sprain and strain documented in this encounter
--- OUTSIDE RECORDS SUMMARY | 2024-09-22 19:09 | XMS_ITS | Encounter Summary ---
Author Organization [facility] Facility Care Team Providers Care Logistics Management Specialist Name Role Phone Unavailable Primary Care Provider Unavailabl e Encounter Details Date Type Department Care Team (Late st Contact Info) Description 06/25/2013 3:12 PM CDT - 06/25/2013 4:00 PM CDT Hospital Encounter [facility] [place] [address] [place] [id number] Treatment of healed fracture follow-up examination Social History Tobacco Use Types Packs/Day Years Used Date Smoking Tobacco: Never Assessed Sex and Gender Information Value Date Recorded Sex Assigned at Not on file Legal Sex Male 8:04 PM FREEZING ROOM WORKER Gender Identity Male 07/10/2021 8:31 AM CDT Sexual Orientation Straight 06/12/2021 8: 44 AM CDT documented as of this encounter Plan of Treatment Not on file documented as of this encounter Procedures Procedure Name Priority Date/Time Associated Diagnosis Comments XR ANKLE 3+ VW Routine 06/25/2013 3:18 PM CDT documented in this encounter Results * XR Ankle 3+ Vw (06/25/2013 3:18 PM CDT) Anatomical Region Laterality Modality N/A Radiographic Anna ging 06/25/2013 3:18 PM CDT Narrative 06/25/2013 3:43 PM CDT ATTILA HURT M.D. FINAL REPORT ACC# ??Date Time ??Exam [id number] Jun 25, 2013 15:18:00 [id number] Ankle Complt. min 3 views R EXAMINATION: ? Right ankle minimum 3 views HISTORY: ??Distal tibial fracture FINDINGS: ??Six view weight bearing examination of the right ankle is compared to a study from 22 September 2012. A comminuted intra-articular fracture of the distal tibia, transfixed with a locking plate and screws and at least 3 interfragmentary screws, has healed. The distal articular surface appears congruent. There is unchanged mild posttraumatic ankle osteoarthritis. The ankle mortise is intact. A pin tract site in the calcaneus is healing. IMPRESSION: ?? Healed comminuted, intra-articular, internally fixated right distal tibial fracture. Requested By: MARLA BHATT M.D. Dictated By: ?? ATTILA HURT M.D. ??on Jun 25 2013 ??3:43P This document has been electronically signed by: ATTILA HURT M.D. on Jun 25 2013 ??3:43P Procedure Note Provider, MD Giovanni - 02/02/2017 ATTILA HURT M.D. FINAL REPORT ACC# Date Time Exam [id number] Jun 25, 2013 15:18:00 [id number] Ankle Complt. min 3 views R EXAMINATION: Right ankle minimum 3 views HISTORY: Distal tibial fracture FINDINGS: Six view weight bearing examination of the right ankle is compared to a study from 22 September 2012. A comminuted intra-articular fracture of the distal tibia, transfixed with a locking plate and screws and at least 3 interfragmentary screws, has healed. The distal articular surface appears congruent. There is unchanged mild posttraumatic ankle osteoarthritis. The ankle mortise is intact. A pin tract site in the calcaneus is healing. IMPRESSION: Healed comminuted, intra-articular, internally fixated right distal tibial fracture. Requested By: MARLA BHATT M.D. Dictated By: ATTILA HURT M.D. on Jun 25 2013 3:43P This document has been electronically signed by: ATTILA HURT M.D. on Jun 25 2013 3:43P us Historical Provider MD ESTRELLA XR PROCEDURES Final R esult documented in this encounter Visit Diagnoses Diagnosis Treatment of healed fracture follow-up examination documented in this encounter
--- OUTSIDE RECORDS SUMMARY | 2024-09-22 19:09 | XMS_ITS | Encounter Summary ---
Author Organization [facility] Facility Care Team Providers Care Director Software Name Role Phone Say Low MD Primary Care Provider [phone] Encounter Details Date Type Department Care Team (Late st Contact Info) Description 10/17/2015 - 10/17/2015 11:59 PM LEAD BURNER APPRENTICE Hospital Encounter [facility] [place] [address] [place] [address] Social History Tobacco Use Types Packs/Day Years Used Date Smoking Tobacco: Former Cigarettes Q uit: 10/03/1982 Alcohol Use Standard Drinks/Week Comments No 0 (1 standard drink = 0.6 oz pur e alcohol) Sex and Gender Information Value Date Recorded Sex Assigned at Not on file Legal Sex Male 8:04 PM LEAD BURNER APPRENTICE Gender Identity Male 07/10/2021 8:31 AM [...] and evening meals 0 0 09/10/2015 8 ilvyling-ydo-SD- lycopen-lutein (CENTRUM SILVER) 0.4-300-250 mg-mcg-mcg tablet 1 [...] filedocumented in this encounter Care Teams Director Software Relationship Specialty Start Date End Date Say Low MD [address] [facility] [address] [place] [address] PCP - General 10/13/15 02/10/17 documented as of this encounter
--- OUTSIDE RECORDS SUMMARY | 2024-09-22 19:10 | XMS_ITS | Encounter Summary ---
Author Organization [facility] Facility Care Team Providers Care Administrative Support Coordinator Name Role Phone Unavailable Primary Care Provider Unavailabl e Encounter Details Date Type Department Care Team (Late st Contact Info) Description 06/14/2007 - 06/14/2007 11:59 PM CDT Hospital Encounter [facility] Patrick Olmos MD [address] [facility] [id number] [place] [address] Calculus of kidney Social History Tobacco Use Types Packs/Day Years Used Date Smoking Tobacco: Never Assessed Sex and Gender Information Value Date Recorded Sex Assigned at Not on file Legal Sex Male 8:04 PM MANAGER VIDEO Gender Identity Male 07/10/2021 8:31 AM CDT Sexual Orientation Straight 06/12/2021 8: 44 AM CDT documented as of this encounter Plan of Treatment Not on file documented as of this encounter Visit Diagnoses Diagnosis Calculus of kidney documented in this encounter
--- OUTSIDE RECORDS SUMMARY | 2024-09-22 19:10 | XMS_ITS | Encounter Summary ---
Author Organization [facility] Facility Care Team Providers Care Hoeing Row Boss Name Role Phone Unavailable Primary Care Provider Unavailabl e Encounter Details Date Type Department Care Team (Late st Contact Info) Description 03/14/2009 - 03/14/2009 11:59 PM CDT Hospital Encounter [facility] Patrick Olmos MD [address] [facility] [id number] [place] [address] Microscopic hematuria Social History Tobacco Use Types Packs/Day Years Used Date Smoking Tobacco: Never Assessed Sex and Gender Information Value Date Recorded Sex Assigned at Not on file Legal Sex Male 8: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
--- OUTSIDE RECORDS SUMMARY | 2024-09-22 19:10 | XMS_ITS | Encounter Summary ---
Author Organization [facility] Facility Care Team Providers Care Hr Business Partner Consultant Name Role Phone Unavailable Primary Care Provider Unavailabl e Encounter Details Date Type Department Care Team (Late st Contact Info) Description 03/17/2009 1:29 PM CDT Hospital Encounter [facility] Patrick Olmos MD [address] [facility] [id number] [place] [address] Calculus of kidney; Diaphragmatic hernia Social History Tobacco Use Types Packs/Day Years Used Date Smoking Tobacco: Never Assessed Sex and Gender Information Value Date Recorded Sex Assigned at Not on file Legal Sex 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
--- OUTSIDE RECORDS SUMMARY | 2024-09-22 19:32 | XMS_ITS | Encounter Summary ---
Author Organization [facility] Address [address] [place] [id number] Phone Care Team Providers Care Organ Pipe Maker Metal Name Role Phone Say Low MD Primary Care Provider [phone] Encounter Details Date Type Department Care Team (Late st Contact Info) Description 05/04/2021 Telephone [facility] Nephrology and Hypertension [address] [facility], [address] [place] [address] Julio Carson MD [address] [facility], [address] [place] [address] Social History Tobacco Use Types Packs/Day Years Used Date Smoking Tobacco: Former Smokeless Tobacco: Never Alcohol Use Standard Drinks/Week Comments Not Currently 0 (1 standard drink = 0.6 oz pur e alcohol) Sex and Gender Information Value Date Recorded Sex Assigned at Not on file Gender Identity Not on file Sexual Orientation Not on file documented as of this encounter Miscellaneous Notes * Telephone Encounter - Cathy Carson MA - 05/05/2021 1:22 PM CDT Pt had it in 2019. * Telephone Encounter - Julio Carson MD - 05/04/2021 2:39 PM CDT please ask pcp if he had the pneumonia shot documented in this encounter Plan of Treatment Not on file documented as of this encounter Visit Diagnoses Not on filedocumented in this encounter Care Teams Organ Pipe Maker Metal Relationship Specialty Start Date End Date Say Low MD [address] [facility] [address] [facility] [address] [place] [address] PCP - General Internal Medicine 12/18/20 documented as of this encounter
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
--- OUTSIDE RECORDS SUMMARY | 2024-09-22 19:32 | XMS_ITS | Encounter Summary ---
Author Organization [facility] Address [address], [place] [address] Phone Care Team Providers Care Sewer Pipe Cleaner Name Role Phone Say Low MD Primary Care Provider [phone] Encounter Details Date Type Department Care Team (Late st Contact Info) Description 05/17/2022 8:30 AM CDT Office Visit [facility] Nephrology and Hypertension [address] [place] [address], [address] [place] [address] Julio Carson MD [address] [facility], [address] [place] [address] Benign essential hypertension (Primary Dx); Stage 3b chronic kidney disease (CMS-HCC); Nephrolithiasis Social History Tobacco Use Types Packs/Day [...] Sign Reading Time Taken Comments Blood Pressure 126/76 05/17/2022 8:51 AM CDT Pulse 84 05/17/2022 8:51 AM CDT Temperature 35.8 ??C (96.5 ??F) 05/17/2022 8:51 AM CD T Respiratory Rate - - Oxygen Saturation - - Inhaled Oxygen Concentration - - Weight 105 kg (232 lb) 05/17/2022 8:51 AM CDT Height 177.8 cm (5' 10 ) 05/17/2022 8:51 AM CDT Body Mass Index 33.29 05/17/2022 8:51 AM CDT documented in this encounter Progress Notes * Julio Carson MD - 05/17/2022 8:30 AM CDT Drew Pak is a pleasant 82 y.o.male. Drew is a very pleasant gentleman who has an elevated Creatinine. Looking back in the records as GFR was in the mid-50s a couple of years ago and then was in the mid-40s in 2019. No problems urinating. On low protein diet. 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 He is off the diclofenac. He is seeing pain doctors. He can't have an injection as he is on blood thinners until July He got the knee replacement. The patient???s hypertension. His blood pressure has been OK. The patient has coronary artery disease. He had a bypass in 2003. He???s had no coronary issue since then, however he did have a permanent pacemaker placed in 2017. The patient has the gout. He is on allopurinol for that and he has not had any attacks for years. The patient has history of kidney stones over the last few years. Last one was two years ago. He???s had two stones but he???s had to have two removed cystoscopically and one stone subjected to shockwave lithotripsy. He just went to urology and he has two minute stones which have not grown. Drinking lots of fluid and taking potassium citrate. Past history: diabetes, hypertension, coronary disease, gout, kidney stones, chronic kidney disease, arthritis. No Known Allergies Social History Tobacco Use ??? Smoking status: Former Smoker ??? Smokeless tobacco: Never Used Substance Use Topics ??? Alcohol use: Not Currently ??? Drug use: Never ROS Constitutional: Negative except as above Skin: Negative except as above Pulmonary: Negative except as above Urologic: Negative except as above BP 126/76 Pulse 84 Temp 96.5 ??F (35.8 ??C) Ht 5' 10 (1.778 m) Wt 232 lb (105 kg) BMI 33.29 kg/m?? BSA 2.28 m?? WDWN male in NAD Skin No rash Head NCAT Neck No nodes, No TMG Lungs Clear to Auscultation Cor RRR no rub or gallop Abd BS+ nontender and soft. Ext No edema, Psyche normal not depressed or anxious Recent [...] 730 ESR 15, C' nl Tsat 11 11/16/21 Cr 1.4, gfr 49, Chol 36/48/87, 01/28/22 CK 120, ANCA neg, JOELLEN neg, ACP neg, UIfx neg 05/11/22 Cr 1.1, gfr >60, Hb 13.7, PTH 53, Upro 180 Imagin02/23/21 Renal US 6cm cyst on left, o/w normal Impression: Teofiol has an elevated creatinine. gfr improved to above 60 now. Serology ais okay. K/L is okay. Immunofix [...] He is on the losartan Control bp well controlled. Control Cholesterol on a statin. F/u with Dr Real Check PTH target Low protein diet on this Maintain CO2 Doing well Control Sugars Avoid NSAIDs Stay well hydrated Stay off the diclofenac. Stone ds. On fluids and Kcitrate. He has not passed a stone in decades. Two small stones which are stable. He will let me know if they grow. The patients BMI is high. Try to lose weight. Consider seeing a inspector advanced composite or PCP for help. Plan Same meds Same diet Take iron he has 45mg at home. Take 2 of these daily RTC 6 months Diagnoses and all orders for this visit: Benign essential hypertension Stage 3b chronic kidney disease (CMS-HCC) Nephrolithiasis Body mass index is 33.29 kg/m??. Follow up plan to address BMI is lose weight. . See above Diagnoses and all orders for this visit: Benign essential hypertension Stage 3b chronic kidney disease (CMS-HCC) Nephrolithiasis Body mass index is 33.29 kg/m??. Follow up plan to address BMI is lose weight. . See above Diagnoses and all orders for this visit: Benign essential hypertension Stage 3b chronic kidney disease (CMS-HCC) Nephrolithiasis Body mass index is 33.29 kg/m??. Follow up plan to address BMI is lose weight. . See above Assessment/Plan Diagnoses and all orders for this visit: Benign essential hypertension Stage 3b chronic kidney disease (CMS-HCC) Nephrolithiasis Body mass index is 33.29 kg/m??. Follow up plan to address BMI is. too high. See above. documented in this encounter Plan of Treatment Not on file documented as of this encounter Visit Diagnoses Diagnosis Benign essential hypertension- Primary Stage 3b chronic kidney disease (CMS-HCC) Nephrolithiasis documented in this encounter Care Teams Sewer Pipe Cleaner Relationship Specialty Start Date End Date Say Low MD [address] [facility] [address] [facility] [address] [place] [address] PCP - General Internal Medicine 12/18/20 documented as of this encounter
--- OUTSIDE RECORDS SUMMARY | 2024-09-22 19:32 | XMS_ITS | Encounter Summary ---
Author Organization [facility] Address [address] [place] [address] Phone Care Team Providers Care House Servant Name Role Phone Say Low MD Primary Care Provider [phone] Encounter Details Date Type Department Care Team (Late st Contact Info) Description 12/22/2020 8:30 AM CDT Office Visit [facility] Nephrology and Hypertension [address] [facility], [address] [address] Julio Carson MD [address] [facility], [address] [facility] [place] [address] Stage 3a chronic kidney disease (CMS-HCC) (Primary Dx) Social History Tobacco Use Types [...] Sign Reading Time Taken Comments Blood Pressure 142/70 12/22/2020 8:55 AM CDT Pulse 72 12/22/2020 8:55 AM CDT Temperature 36.1 ??C (97 ??F) 12/22/2020 8:55 AM CDT Respiratory Rate - - Oxygen Saturation - - Inhaled Oxygen Concentration - - Weight 110 kg (243 lb) 12/22/2020 8:55 AM CDT Height 177.8 cm (5' 10 ) 12/22/2020 8:55 AM CDT Body Mass Index 34.87 12/22/2020 8:55 AM CDT documented in this encounter Progress Notes * Julio Carson MD - 12/22/2020 8:30 AM CDT Drew Pak is a pleasant 80 y.o.male. Drew is a very pleasant gentleman who has an elevated creatinine. He has arthritis and went to Dr. Oshea for evaluation. It turns out that he needs a total knee replacement on the right. He had preoperative labs and his GFR dropped 35. At the time of blood draw the patient was feeling fine. There was no nausea, vomiting, diarrhea, fevers, chills, or other flu like illnesses. The patient has had no bloody urine, foamy urine, kidney stones, painful urination, or bladder infections. The patient is not taking any new medications or new over the counter meds. He was sent for kidney evaluation. Looking back in the records as GFR was in the mid-50s a couple of years ago and then was in the mid-40s in 2019. The patient???s hypertension. He???s had this for 10 or 15 years. His blood pressure has been OK. The patient has diabetes. He???s had this for 10 or 15 years as well. His sugars have been good andhis A-1 C has been good as well. The patient has coronary artery disease. He had a bypass in 2003. He???s had no coronary issue since then, however he did have a permanent pacemaker placed in 2018. The patient has the gout. He is on allopurinol for that and he has not had any attacks for years. The patient takes diclofenac every day. Upon hearing about the lower GFR, his diclofenac was stopped. He also has arthritis in the back end has had two surgeries in the past for this. The patient has history of kidney stones [...] Never ROS Constitutional: Negative except as above Neuro: Negative except as above ENT: Negative except as above Endocrine: Negative except as above Psychiatric: Negative except as above Pulmonary: Negative except as above Cardiac: Negative except as above Abdomen: Negative except as above Urologic: Negative except as above Skin: Negative except as above Rheumatologic: Negative except as above BP 142/70 Pulse 72 Temp 97 ??F (36.1 ??C) Ht 5' 10 (1.778 m) Wt 243 lb (110 kg) BMI 34.87 kg/m?? BSA 2.33 m?? WDWN male in NAD Skin warm and dry, no rash Head NCAT Eyes normal sclerae and conjunctivae Neck no nodes, no TMG, no bruits Back no CVAT Lungs: CTA/P Cor: RRR no rub or gallop Abd BS+ nontender and soft; no masses, HSM, or bruits. Ext no CCE. Pulses 2+/= radial arteries Psyche: not anxious or depressed Neuro: A+O x 3, motor 5/5, cr ns 2-12 intact, reflexes 2+/= biceps and patellar tendons, Cb normal TAMELA Recent Labs: 10/26/18 Cr 1.3, 54 06/20/19 Cr 1.3, gfr 54, 07/28/20 Cr 1.6 gfr 42 08/15/20 Cr 1.5 gfr 45 12/16/20 Cr 1.7, gfr 39, CO2 29, UA 1+pro 3+glc Hb 12.1, A1C 5.7, glc 129 Imaging: Impression: Teofilo has an elevated creatinine. This seems to have gotten worse in the last few months. He is on diclofenac.. He stopped us about a week ago. We will check his labs today to see if his creatinineis better. If so he could have his knee replacement surgery. The patient has chronic kidney disease. This is probably due to diabetes and hypertension. He does have coronary disease and so could have some vascular disease in the kidneys as well. There are other things that cause kidney disease as well, including glomerulonephritis, interstitial nephritis, obstruction, infiltration, stone disease, or cystic disease. These are unlikely becausethe patient has no sign or symptoms of any of these. We will evaluate for other causes next visit. Today we just want to get him to surgery if possible. So I will order a renal panel and urinalysis. Down the line, to evaluate this, I am going to get a renal panel, urinalysis, urine protein to creatinine ratio, JOELLEN, ESR, complements, serum and urine immunofixation, kappa lambda ratio, and a renalultrasound. We discussed ways to preserve renal function. We discussed the potential benefits of KATLYN inhibitors and ARBs. The systolic blood pressure should be less than 140. The LDL cholesterol should be less than 100. We will check a PTH and vitamin D level to be sure these are in line. We discussed that the patient should stay off large amounts of protein in the diet. Try to stick toabout 7 ounces of chicken, fish, beef or pork per day. The patient should avoid nonsteroidal antiinflammatory agents. The patient should stay well hydrated. The sugars should be well controlled. The patients BMI is high. Try to lose weight. Consider seeing a communications engineering technician or PCP for help. The patient will work on the diet and get the testing done. Followup in a few weeks for further evaluation. Patient's BMI is too high He should try to lose weight. See a communications engineering technician or pcp for help. Pt was told that I will write a note or call them with results of tests done after the visit. If they do not get any notification within a week or two after the testing is done, then they should callfor results. Pt was told that I will write a note or call them with results of tests done after the visit. If they do not get any notification within a week or two after the testing is done, then they should callfor results. Assessment/Plan Diagnoses and all orders for this visit: Stage 3a chronic kidney disease ([facility]-HCC) Body mass index is 34.87 kg/m??. Follow up plan to address BMI is. too high. See above. documented in this encounter Plan of Treatment Not on file documented as of this encounter Visit Diagnoses Diagnosis Stage 3a chronic kidney disease ([facility]-HCC)- Primary documented in this encounter Care Teams House Servant Relationship Specialty Start Date End Date Say Low MD [address] [place] [id number] PCP - General Internal Medicine 12/18/20 documented as of this encounter
--- OUTSIDE RECORDS SUMMARY | 2024-09-22 19:32 | XMS_ITS | Clinical Summary ---
Author Organization [facility] Address [address] [place] [address] Phone Care Team Providers Care Kapok And Cotton Machine Operator Name Role Phone Say Low MD Primary Care Provider [phone] Allergies No known active allergies Medications Medication Sig Dispensed Refills Start Date End Date Status allopurinol (ZYLOPRIM) 300 MG tablet Take 0.5 tablets by mouth daily 12/15/2019 Active aspirin EC 81 MG EC tablet 81 mg 11/17/2015 Active losartan (COZAAR) 100 MG tablet Take 100 mg by mouth 1 (one) time each day 10/01/2020 Active multivitamine, geriatric, (CENTRUM SILVER) tablet 1 tab daily 09/10/2015 Active omega-3 (FISH OIL) 1000 MG capsule 1 capsule daily 09/10/2015 Acti ve omeprazole (PriLOSEC) [address] capsule Take 40 mg by mouth daily Active potassium citrate (UROCIT-K) 10 MEQ (1080 MG) CR tablet Take 10 mEq by mouth 2 (two) times a day 11/02/2020 Active sildenafil (VIAGRA) 100 MG tablet 11/03/2020 Active simvastatin (ZOCOR) 20 MG tablet 20 mg 09/10/2015 Active tamsulosin (FLOMAX) 0.4 MG 24 hr capsule Take 0.4 mg by mouth 1 (one) time each day 10/01/2020 Active Cholecalciferol (Vitamin D3) 125 MCG (5000 UT) capsule Take by mouth Acti ve Xarelto 20 MG tablet 04/27/2021 Acti ve carvedilol (COREG) 25 MG tablet Take 25 mg by mouth every 12 (twelve) hours 04/01/2021 Active Synjardy XR 5-1000 MG tablet sustained-release 24 hour 05/01/2021 Active HYDROcodone-acetaminop hen (NORCO) 5-325 MG per tablet TAKE 1 TABLET BY MOUTH EVERY 4 TO 6 HOURS NEEDED FOR PAIN 04/22/2021 Active furosemide (LASIX) 40 MG tablet Take 40 mg by mouth 1 (one) time each day in the morning 02/23/2021 Active atorvastatin (LIPITOR) 40 MG tablet 10/09/2021 Active clopidogrel (PLAVIX) 75 MG tablet 09/16/2021 Active folic acid (FOLVITE) 1 MG tablet Take 1,000 mcg by mouth 1 (one) time each day 10/01/2021 Active Active Problems Problem Noted Date Diagnosed Date Recurrent coronary arteriosc lerosis after percutaneous transluminal coronary angioplasty 07/13/2021 Stage 3b chronic kidney disease 05/01/2021 Arteriosclerosis of coronary artery bypass graft 02/22/2020 Overview (12/22/2020): Last Assessment & Plan: History of CABG Now [...] at that time. I did check, the [employer] wraps are are coming to [facility]. So I think he should be able to get his MRI done. 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 Davis Benign essential hypertension 08/14/2012 History of coronary artery bypass grafting 08/14 Urinary tract infection 06/20/2012 Immunizations Name Administration Dates Next Due Influenza TIV (IM) 11/04/2021(Deferred: Patient Refused) Pneumococcal Conjugate 06/03/2019 Family History Medical History Relation Comments Kidney disease Neg Hx Social History Tobacco Use Types Packs/Day Years [...] Mass Index 33.29 05/17/2022 8:51 AM CDT Plan of Treatment Health Maintenance Due Date Last Done Comments Pneumococcal PPSV23/PCV13 65 + Years / High and Highest Risk (1 of 4 - PCV) 1946 Influenza Vaccine (#1) 2024 Care Teams Kapok And Cotton Machine Operator Relationship Specialty Start Date End Date Say Low MD [address] [facility] [address] [facility] [address] [place] [id number] PCP - General Internal Medicine 12/18/20
--- OUTSIDE RECORDS SUMMARY | 2024-09-22 19:32 | XMS_ITS | Encounter Summary ---
Author Organization [facility] Address [address] [address] Phone Care Team Providers Care Regional Sales Manager Name Role Phone Say Low MD Primary Care Provider [phone] Encounter Details Date Type Department Care Team (Late st Contact Info) Description 05/04/2021 2:15 PM CDT Office Visit [facility] Nephrology and Hypertension [address] [place] [address], [address] [place] [address] Julio Carson MD [address] [facility], [address] [place] [address] Benign essential hypertension (Primary Dx); Nephrolithiasis; Stage 3b chronic kidney disease ([facility]-HCC) Social History Tobacco Use Types Packs/Day Years [...] Sign Reading Time Taken Comments Blood Pressure 124/70 05/04/2021 2:33 PM CDT Pulse 72 05/04/2021 2:33 PM CDT Temperature 36.6 ??C (97.8 ??F) 05/04/2021 2:33 PM CD T Respiratory Rate - - Oxygen Saturation - - Inhaled Oxygen Concentration - - Weight 103 kg (228 lb) 05/04/2021 2:33 PM CDT Height 177.8 cm (5' 10 ) 05/04/2021 2:33 PM CDT Body Mass Index 32.71 05/04/2021 2:33 PM CDT documented in this encounter Progress Notes * Julio Carson MD - 05/04/2021 2:15 PM CDT Drew Pak is a pleasant 80 y.o.male. Drew is a very pleasant gentleman who has an elevated creatinine No urinary issues On low protein diet. Sugars doing well. 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 He is off the diclofenac. 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 Looking back in the records as GFR was in the mid-50s a couple of years ago and then was in the mid-40s in 2019. The patient???s hypertension. His blood pressure has [...] above Urologic: Negative except as above BP 124/70 Pulse 72 Temp 97.8 ??F (36.6 ??C) Ht 5' 10 (1.778 m) Wt 228 lb (103 kg) BMI 32.71 kg/m?? BSA 2.26 m?? WDWN male in NAD Skin No rash Head NCAT Neck No nodes, No TMG Lungs Clear Cor RRR no rub or gallop Abd BS+ nontender and soft. Ext 1+ edema, slt worse on right (always is due to old fractures and hardware in right ankle/tibia)_ Psyche normal not depressed or anxious Recent Labs: 10/26/18 Cr 1.3, 54 06/20/19 Cr 1.3, gfr 54, 07/28/20 Cr 1.6 gfr 42 08/15/20 Cr 1.5 gfr 45 12/16/20 Cr 1.7, gfr 39, CO2 29, UA 1+pro 3+glc Hb 12.1, A1C 5.7, glc 129 04/28/21 Cr 1.6, gfr 42, CO2 25, Hb 11.8, PTH 47.6, Upro 80, JOELLEN neg, C' nl, K/L 1.4, S+UIfx PENDING Imagin02/23/21 Renal US 6cm cyst on left, o/w normal Impression: Teofilo has an elevated creatinine. Serology ais okay. K/L is okay. Immunofix is pending. UA is bland U/S is okay It looks like his ckd is due to hypertension and vascular disease. He may have some diabetic changes but not much if any since he has minimal protein in the urine. Await the rest of the eval To preserve renal function: Use KATLYN/ARB He is on the losartan Control bp Doing well Control Cholesterol on a statin. F/u with Dr Real Check PTH target Low protein diet on this Maintain CO2 Doing well Control Sugars Avoid NSAIDs Stay well hydrated Stay off the diclofenac. The patients BMI is high. Try to lose weight. Consider seeing a soda column operator or PCP for help. Plan Same meds Stay off diclofenac Pt wants to get labs at same time as Dr Low. This well be 3-4 months. RTC 6 months Diagnoses and all orders for this visit: Benign essential hypertension Nephrolithiasis Stage 3b chronic kidney disease ([facility]-HCC) Body mass index is 32.71 kg/m??. Follow up plan to address BMI is lose weight. . See above Assessment/Plan Diagnoses and all orders for this visit: Benign essential hypertension Nephrolithiasis Stage 3b chronic kidney disease (CMS-HCC) Body mass index is 32.71 kg/m??. Follow up plan to address BMI is. too high. See above. documented in this encounter Plan of Treatment Not on file documented as of this encounter Visit Diagnoses Diagnosis Benign essential hypertension- Primary Nephrolithiasis Stage 3b chronic kidney disease ([facility]-HCC) documented in this encounter Care Teams Regional Sales Manager Relationship Specialty Start Date End Date Say Low MD [address] [facility] [address] [facility] [address] [place] [address] PCP - General Internal Medicine 12/18/20 documented as of this encounter
== END 2024-09-17 07:36 | disposition home or self-care (01) ==
PROVIDERS: PCP Internal Medicine; Visit Provider Internal Medicine
DX: E11.9 Type 2 diabetes mellitus without complications (principal); Z13.29 Encounter for screening for other suspected endocrine disorder; Z79.899 Other long term (current) drug therapy; E78.2 Mixed hyperlipidemia; I10 Essential (primary) hypertension
CPT/HCPCS: 36415; 80053; 80061; 81001; 82043; 82607; 82728; 82746; 83036; 83540; 83550; 84439; 84443; 85025; 87086; 87186

== ENCOUNTER 2024-11-19 10:34 | Outpatient (CLI) | payer MEDICARE, SELFPAY ==
--- NOTE | ~2024-11-19 | XR_ITS ---
EXAMINATION: XR abdomen/kub 1V DATE: 11/19/2024 10:58 INDICATION: Abdominal pain. TECHNIQUE: A supine view of the abdomen on 2 radiographs was obtained. COMPARISON: Chest CT 10/25/2022 FINDINGS: There are no dilated loops of bowel. There is a small volume of stool in the colon. Pacer w ires and median sternotomy wires are noted. IMPRESSION: 1. Normal bowel gas pattern. Reviewed, dictated and finalized at location A. STRIAL EDUCATION TEACHER
[2024-11-19 11:33] LABS: Add Urine Microscopic? YES; Appearance Urine Clear (Clear); Bacteria Urine None Seen /hpf; Bilirubin Urine Negative (Negative); Blood Urine Negative (Negative); Color Urine Yellow (Yellow); Glucose Urine UA 3+ mg/dL (Negative); Ketones Urine Negative (Negative); Leukocyte Esterase Ur 2+ LEU/UL (Negative); Nitrate Urine Negative (Negative); Non Pathogenic Casts 0-2; Protein Urine Negative (Negative); RBC Urine 0-2 /hpf (0-2); Specific Grav Ur 1.016 (1.001-1.035); Squamous Epithelial Cell Urine None Seen /hpf (Few); Urobilinogen Urine 0.2 mg/dL (<2.0); WBC Urine 51-100 /hpf (0-3); pH Urine 5.5 (5.0-9.0)
--- OUTSIDE RECORDS SUMMARY | 2024-11-19 13:43 | XMS_ITS | Encounter Summary ---
Author Organization [facility] Address [address] [facility] [address] [place] [address] Care Team Providers Care Piano Player Name Role Phone Say Low MD Primary Care Provider [phone] Unknown, Notinfile Primary Care Provider Unavail able Say Low MD Primary Care Provider [phone] Encounter Details Date Type Department Care Team (Late st Contact Info) Description 10/01/2016 Orders Only [facility] Provider, MD [facility] [place] [address] Social History Tobacco Use Types Packs/Day Years Used Date Smoking Tobacco: Former Cigarettes Q uit: 10/03/1982 Alcohol Use Standard Drinks/Week Comments No 0 (1 standard drink = 0.6 oz pur e alcohol) Sex and Gender Information Value Date Recorded Sex Assigned at Not on file 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
--- OUTSIDE RECORDS SUMMARY | 2024-11-19 13:43 | XMS_ITS | Clinical Summary ---
Author Organization [facility] Address [address] [facility] [place] [address] Care Team Providers Care Dentist/Owner Name Role Phone Edgar Geiger MD Unavailable Unavailable Say Low MD Primary Care Provider Source Comments [facility],non-owned Affiliates and Associated Physician Practices is amultiple site organization consisting of ambulatory clinics and hospital sitesin [place], [place], [place] and [place]. This disclosure is being madepursuant to the Care Everywhere program and may not contain all information available regarding this patient. Last updated 18.[facility] Allergies No known active allergies Medications * [...] daily with morning and evening meal. Active [place]-3 Fatty Acids (TH [place]ME[place]-3 FISH OIL) 1000 [...] Due Date Last Done Comments MEDICARE AWV 12 MONTHS 1942 DTAP/TDAP/TD VACCINES (1 - Tdap) 1961 PNEUMOCOCCAL VACCINE 50+ (1 of 1 - PCV) 1992 ZOSTER VACCINE (1 of 2) 1992 Respiratory Syncytial Virus (RSV) Vaccine Pt: or over 60 yrs (1 - 1-dose 75+ series) 2017 COVID-19 VACCINE ( - 2023-2 5 season) 2024 INFLUENZA VACCINE (#1) 2024 DEPRESSION SCREENING 10/03/2024 HEPATITIS B VACCINE Aged Out No longe r eligible based on patient's age to complete this topic HIB VACCINE Aged Out No longer eligi ble based on patient's age to complete this topic HPV VACCINE Aged Out No longer eligi ble based on patient's age to complete this topic MENINGOCOCCAL (Group B) VACCINE Aged Out No longer eligible based on patient's age to complete this topic MENINGOCOCCAL VACCINE Aged Out No donny janneth eligible based on patient's age to complete this topic Care Teams Dentist/Owner Relationship Specialty Start Date End Date Say Low MD [address] [place] [address] PCP - General Internal Medicine 08/14/12 Edgar Geiger MD Cardiovascular Disease 08/14/12
--- OUTSIDE RECORDS SUMMARY | 2024-11-19 13:43 | XMS_ITS | Clinical Summary ---
Author Organization [facility] Address [address] [place] [address] Phone Care Team Providers Care Engineering Vice President Name Role Phone Say Low MD Primary Care Provider [phone] Allergies No known active allergies Medications Medication [...] at that time. I did check, the [employer] wraps are are coming to [facility]. So I think he should be able to get his MRI done. 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
--- OUTSIDE RECORDS SUMMARY | 2024-11-19 13:43 | XMS_ITS | Encounter Summary ---
Author Organization [facility] Address [address] [facility] [address] [place] [address] Care Team Providers Care Shredding Machine Knife Changer Name Role Phone Say Low MD Primary Care Provider [phone] Unknown, Notinfile Primary Care Provider Unavail able Say Low MD Primary Care Provider [phone] Encounter Details Date Type Department Care Team (Late st Contact Info) Description 09/08/2016 Orders Only Arrhythmia Center Provider, MD Giovanni [address] [place] [address] Social History Tobacco Use Types Packs/Day Years Used Date Smoking Tobacco: Former Cigarettes Q uit: 10/03/1982 Alcohol Use Standard Drinks/Week Comments No 0 (1 standard drink = 0.6 oz pur e alcohol) Sex and Gender Information Value Date Recorded Sex Assigned at Not on file 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
--- OUTSIDE RECORDS SUMMARY | 2024-11-19 13:43 | XMS_ITS | Encounter Summary ---
Author Organization [facility] Address [address] [place] [address] Care Team Providers Care Borematic Machine Operator Name Role Phone Edgar Geiger MD Unavailable Unavailable Say Low MD Primary Care Provider [phone] Encounter Details Date Type Department Care Team (Late st Contact Info) Description 01/12/2018 Lab Requisition [facility] [address] [place] [id number] Kumar Reno MD RETIRED Social History Tobacco [...] 12:00 AM CDT) Case Report Dermatopathology Report Case: [id number] Authorizing Provider: Kumar Reno MD Collected: 01/11/2018 12:00 AM Pathologist: Rhea Gayle MD Received: 01/12/2018 11:39 AM Specimen: Skin, right infraclavicular 8 6:41 PM T DERMATOPATHOLOGY LABORATORY Final Diagnosis Specimen A. SKIN, right infraclavicular: BENIGN VERRUCOUS KERATOSIS, INFLAMED (L82.1) 8 6:41 PM T DERMATOPATHOLOGY LABORATORY Clinical History SK. 8 6:41 PM CDT DERMATOPATHOLOGY LABORATORY Gross Description Specimen: A: Received is one formalin filled container labeled with the patient's name and designated right infraclavicular. The specimen consists of a shave biopsy measuring [id number]. Jar 0. 6:41 PM T DERMATOPATHOLOGY LABORATORY Microscopic Description Specimen A. SKIN, right infraclavicular: Sections show hyperkeratosis, papillomatosis, hypergranulosis, and acanthosis. Inflammatory cells are present within the dermis. These histological findings can be seen in a verruca vulgaris or a seborrheic keratosis. 8 6:41 PM T DERMATOPATHOLOGY LABORATORY Disclaimer An external and internal positive and negative controls are appropriate for the histochemical, immunohistochemical and immunofluorescence stain(s) in this case (if any), except where stated explicitly. The performance characteristics of the stain(s) cited in this report were developed and its performance characteristic determined by the Dermatopathology Laboratory at [facility]. These tests need not be, and therefore are not, approved by the [place] Food and Drug Administration. The tests are used for clinical purposes. Billing Codes Specimen Charges Stain Charges 25848 1 8 6:41 PM CDT DERMATOPATHOLOGY LABORATORY Embedded Images 8 6:41 PM T DERMATOPATHOLOGY LABORATORY Pathology/Cytolog y TISSUE SPECIMEN FROM SKIN / Unknown 01/11/2018 01/12/2018 11:39 AM CDT Kumar Reno MD LAB - PATHOLOGY/CYTO LOGY ORDERABLES DERMATOPATHOLOGY LABORATORY [facility] - Department of Dermatology [address] [place] [address] 5th Floor Lab [address] [phone] documented in this encounter Visit Diagnoses Not on filedocumented in this encounter Care Teams Borematic Machine Operator Relationship Specialty Start Date End Date Say Low MD [address] [place] [address] PCP - General Internal Medicine 08/14/12 Edgar Geiger MD Cardiovascular Disease 08/14/12 documented as of this encounter
--- OUTSIDE RECORDS SUMMARY | 2024-11-19 13:43 | XMS_ITS | Referral Summary ---
Author Organization [facility] Address [address] [place] [address] Care Team Providers Care Cut Plug Packer Name Role Phone Say Low MD Primary Care Provider [phone] Encounters Date Type Department Care Team Description 11/14/2024 Telephone [facility] Cardiology [facility] [address] [address] Shiva Anne MD 09/12/2024 11:15 AM SENIOR ADVISOR Ancillary Procedure Arrhythmia Center [address] [place] [id number] NICM (nonischemic cardiomyopathy) (CMS/HCC) (HCC) (Primary Dx); AV node dysfunction; Pacemaker 09/05/2024 Telephone [facility] Cardiology [facility] [address], [place] [address] Shiva Anne MD low BPS'? 08/29/2024 Orders Only Arrhythmia Center [address] [place] [address] Wayne Davis MD NICM (nonischemic cardiomyopathy) (CMS/HCC) (HCC) (Primary Dx) 08/28/2024 11:30 AM SENIOR ADVISOR Ancillary Procedure Arrhythmia Center [address] [place] [address] [address], [place] [address] NICM (nonischemic cardiomyopathy) (CMS/HCC) (HCC) (Primary Dx); Pacemaker from Last 3 Months Allergies No known active allergies Medications tamsulosin (FLOMAX) 0.4 mg capsule,extended release 24hr take 1 capsule by oral route every day 1/2 hour following the same meal each day 0 0 5 Active Additional Information Patient taking differently:0.4 mgoral Every morning, Indications: Urolithiasis, Informant: Self, Reported on 08/15/2024 SYNJARDY XR 5-1,000 mg tablet, IR & ER, biphasic 24hr Take 1,000 mg by mouth every morning 0 8 Active cholecalciferol (VITAMIN D-3) 2,000 unit tablet Take 1 tablet (2,000 Units total) by mouth 2 (two) times a day Active omeprazole (PriLOSEC) 40 mg capsule Take 1 capsule (40 mg total) by mouth daily Active allopurinoL (ZYLOPRIM) 300 mg tablet Take 0.5 tablets (150 mg total) by mouth daily 150 mg daily 0 Active potassium citrate ER (UROCIT-K) 10 mEq (1,080 mg) CR tabletIndication s:Nephrolithiasi s Take 1 tablet (10 mEq total) by mouth daily 90 tablet 4 1 Active carvediloL (COREG) 12.5 mg tablet Take [...] tablets (12.5 mg total) by mouth daily 4 03/22/20 25 Active atorvastatin (LIPITOR) 10 mg tablet Take 0.5 tablets (5 mg total) by mouth daily 45 tablet 2 4 Active rivaroxaban (Xarelto) 20 mg tabletIndication s:Paroxysmal atrial fibrillation ([facility]) ([facility]) Take 1 tablet (20 mg total) by mouth daily 90 tablet 3 4 Active losartan (COZAAR) 50 mg tablet Take 1.5 tablets (75 mg total) by mouth daily 45 tablet 11 4 09/05/20 25 Active Active Problems Problem Noted Date Diagnosed Date CHB (complete heart block) ([facility]) 07/19/2024 Typical atrial flutter ([facility]) 07/19/2024 Assessment & Plan (07/19/2024 2:15 PM [...] checks when necessary. The patient has a [id number] score of 4 (annualized risk of stroke 4%). I have therefore recommended continued anticoagulation for thromboprophylaxis. NICM (nonischemic cardiomyopathy) ([facility]) 07/03 CAD S/P percutaneous coronary angioplasty 2020 Coronary artery disease (CAD) excluded Hx of CABG 02/22/2020 Coronary artery disease invo lving coronary bypass graft of kaw heart with angina pectoris ([facility]) 02/22/2020 Assessment & Plan (02/22/2020 6:54 PM [...] at that time. I did check, the [employer] wraps are are coming to [facility]. So I think he should be able to get his MRI done. Preoperative cardiovascular examination 05/01/20 19 Assessment & Plan (05/01/2019 11:30 AM CDT): Due to the silent ischemia, CABG in 2004, he needs an aggressive evaluation. Nephrolithiasis 01/04/2019 Overview (01/04/2019): Added automatically from request for surgery [id number] Pacemaker 07/04/2017 Overview (07/04/2017): [employer] DDD Essentio L111 pacemaker implanted on 07/04/17 for Mobitz Ii. Claudia/Ryan Avalos Assessment & Plan (07/19/2024 2:14 PM CDT): [...] appropriate arrangements. From: Keon MK, Gabriel KK, Wagner C et al. 2022 HRS/APHRS/LAHRS guideline on cardiac physiologic pacing for the avoidance and mitigation of heart failure. Heart Rhythm 2022;20:e17-e91. Class I: In patients with a CIED with a decline in LV function or worsening of HF symptoms attributed to substantial ventricular pacing, PAD TUFTER with BiV pacing is recommended to improve [...] 6:52 PM CDT): Status post pacemaker placement, [employer] device for second-degree AV block Normal [...] file Legal Sex Male 8:04 PM SENIOR ADVISOR Gender Identity Male 07/10/2021 8:31 AM CDT Sexual Orientation Straight 06/12/2021 8: 44 AM CDT Last Filed Vital Signs Vital Sign Reading Time Taken Comments Blood Pressure 114/58 08/15/2024 5:50 PM SENIOR ADVISOR Pulse 81 08/15/2024 5:50 PM SENIOR ADVISOR Temperature 37.1 C (98.8 F) 08/15/2024 1:03 PM SENIOR ADVISOR Respiratory Rate 26 08/15/2024 5:50 PM SENIOR ADVISOR Oxygen Saturation 93% 08/15/2024 5:50 PM SENIOR ADVISOR Inhaled Oxygen Concentration - - Weight 101.1 kg (222 lb 14.2 oz) 08/15/2024 1:03 PM SENIOR ADVISOR Height 172.7 cm (5' 8 ) 08/15/2024 1:03 PM SENIOR ADVISOR Body Mass Index 33.89 08/15/2024 1:03 PM SENIOR ADVISOR Plan of Treatment Not on file Medical Devices Implanted Type Area Customer Resource Specialist Device Identifier Shelf Expiration Date Model / Serial / Lot [employer] Tabby Acuity X4 3.9-5.2fr 2.6fr 86cm Otw Quadripolar Long Straight [id number] - [id number] - [id number] Implanted:Qty: 1 on 08/15/2024 by Wayne Davis MD at [facility] Lead [employer] Tabby [id number] 04/28/2026 [id number] / [id number] / Pacemaker-07/04 Implanted:11/2016 (Quantity not on file) Pacemaker Chest Wall [employer] Tabby Pacemaker Single [employer] P Visionist 0.75x4.45x6.17 cm U228 - [id number] - [id number] Implanted:Qty: 1 on 08/15/2024 by Wayne Davis MD at [facility] Pacemaker [employer] Tabby [id number] 06/08/2026 [id number] / [id number] / [employer] Tabby [id number] Synergy Xd Monorail 3.5mm 32mm 144cm Delivery System 1 Access - S0 - [id number] Implanted:Qty: 1 on 07/13/2021 by Troy Shipley MD at [facility] Stent [employer] Tabby 03/11/2023 [id number] / 0 / [id number] Description:LAD Explanted Type Area Customer Resource Specialist Device Identifier Shelf Expiration Date Model / Serial / Lot [employer] [id number] Inlay Vassar 6fr 28cm Pusher Fluoro Marker Atraumatic Insertion Latex Free - [id number] Implanted:Qty: 1 on 01/17/2019 by Concetta Thurston MD at [facility] Explanted:Qty: 1 on 01/31/2019 by Elvin Carrillo NP Stent Left: Ureter [employer] [id number] 07/13/2023 [id number] / / [id number] Procedures Procedure Name Priority Date/Time Associated Diagnosis Comments DEVICE CHECK - IN OFFICE Routine 09/12/2024 10:59 AM SENIOR ADVISOR AV node dysfunction DEVICE CHECK - IN OFFICE Routine 08/28/2024 11:01 AM SENIOR ADVISOR Pacemaker CT ABDOMEN PELVIS WO CONTRAST Schedule Routine, Read Routine (OP Routine) 09/14/2022 9:43 AM SENIOR ADVISOR Nephrolithiasis from Last 3 Months or Most Recently Relevant to Health Maintenance Results * DEVICE CHECK - IN OFFICE (09/12/2024 10:59 AM SENIOR ADVISOR) Anatomical Region Laterality Modality Other Narrative 09/15/2024 3:28 PM SENIOR ADVISOR Table formatting from the original result was not included. BiV PACEMAKER CHECK (IN OFFICE) Patient ID: Drew Newman is a 84 y.o. male. This patient received a [employer] BiV Pacemaker. They had a routine in office device interrogation on 09/12/24. Device implant indications: Nonischemic cardiomyopathy, Mobitz type 2 Interrogation of the patient's device demonstrates the following: Presenting EGM: A paced Bi V paced @ 60 bpm Underlying Rhythm: Paced at 40 ppm Original Device Settings Right [...] % 100 % 100 % Battery Status: 11 years to SOFI Episodes last 90 days/Comments: AF [place] 0 %, longest duration 3 minutes and 35 seconds on 08/22. Ventricular rates were controlled. No new ventricular events. NORMAL DEVICE FUNCTION PROGRAMMED MEDICATIONS: Anti-coagulant(s): Aspirin 81 mg, Xarelto 20 mg daily Anti-arrhythmic(s): Coreg 12.5 mg twice a day PLAN: 1) normal [employer] BiV Pacemaker evaluation 2) [employer] remote transmission scheduled in 3 months. 3) Programming appropriate for device settings 4) left subclavian incision well healed, remaining Dermabond removed without incident. Gisela Butler RN us Wayne Davis MD [facility] PRO CEDURES Final Result * DEVICE CHECK - IN OFFICE (08/28/2024 11:01 AM SENIOR ADVISOR) Anatomical Region Laterality Modality Other Narrative 09/01/2024 11:06 AM SENIOR ADVISOR Table formatting from the original result was not included. BiV PACEMAKER CHECK (IN OFFICE) Patient ID: Drew Newman is a 84 y.o. male. This patient received a [employer] BiV Pacemaker. They had a routine in office device interrogation on 08/28/24. Device implant indications: Nonischemic cardiomyopathy, complete heart block Interrogation of the patient's device demonstrates the following: Presenting EGM: A paced Bi V paced @ 60 bpm Underlying Rhythm: Paced at 40 ppm Original Device Settings Right [...] % 100 % 100 % Battery Status: 11 years to SOFI Episodes last 90 days/Comments: AF Hollywood <1 %, longest duration 3 minutes and 35 seconds. No new ventricular events. NORMAL DEVICE FUNCTION PROGRAMMED MEDICATIONS: Anti-coagulant(s): Aspirin 81 mg, Xarelto 20 mg daily Anti-arrhythmic(s): None PLAN: 1) normal [employer] BiV Pacemaker evaluation 2) wound and device check in 1 month. 3) Programming appropriate for device settings 4) left subclavian incision well approximated with Dermabond intact. Minimal swelling at incision site. No evidence of drainage, infection, or bruising. Reviewed postop instructions and restrictions. Gisela Butler RN us Wayne Davis MD [facility] PRO CEDURES Final Result * CT Abdomen Pelvis WO Contrast (09/14/2022 9:43 AM SENIOR ADVISOR) Anatomical Region Laterality Modality Body N/A Computed Tomogra phy 09/15/2022 10:0 0 AM SENIOR ADVISOR Narrative 09/15/2022 10:11 AM SENIOR ADVISOR EXAM DESCRIPTION: CT ABDOMEN PELVIS WO CONTRAST REASON FOR STUDY: History of nephrolithiasis. Follow-up. TECHNIQUE: CT scan of the abdomen and pelvis performed without intravenous and without oral contrast using helical scanning technique. Reconstructed coronal and sagittal MPR images reviewed. All images stored on PACS. Automated exposure control was used as a dose optimization technique for this examination. COMPARISON: 01/04/2019 FINDINGS: The sensitivity for detection of visceral lesions is diminished without the use of intravenous contrast. LOWER CHEST: Increased mild bibasilar ground-glass and reticulation. This likely represents a combination of atelectasis and scarring. LIVER: The liver is unchanged in appearance with undulating surface. This likely reflects chronic underlying liver disease. No definite liver lesion is seen on this unenhanced CT examination. GALLBLADDER: Partially distended. No CT evidence of acute cholecystitis. BILE DUCTS: No intrahepatic or extrahepatic ductal dilatation. SPLEEN: Normal size. No focal lesions. PANCREAS: The pancreas is normal in size. No significant peripancreatic stranding or main ductal dilatation. ADRENALS: Normal. KIDNEYS/URINARY TRACT: The kidneys are normal in size. Moderate perinephric stranding, likely scarring. No hydronephrosis. Bilateral nonobstructing stones. The largest on the right measures 5 mm. The largest on the left measures proximally 5 mm. Prominence of the interpolar left kidney is grossly unchanged compared to 2019. A dominant 6.6 cm left renal cyst is noted which does not require specific follow-up. The urinary bladder is partially distended. Mild thickening and stranding of the urinary bladder. GI: Stool throughout the colon which appears nondilated. A tiny hiatal hernia is seen. The small bowel appears nondilated without wall thickening or evidence of obstruction. A chronic small umbilical hernia is seen containing a nondilated loop of small bowel measuring approximately 2.4 by 1.7 cm (92). PERITONEUM: No free air or ascites is seen. Prominent periportal lymph nodes are unchanged. RETROPERITONEUM: Subcentimeter retroperitoneal lymph nodes, nonenlarged by size criteria. These are grossly unchanged. No inguinal lymphadenopathy is seen. REPRODUCTIVE: Prominent prostate with mass effect on the posterior bladder wall. Small fat containing left inguinal hernia. VASCULATURE: Extensive atherosclerosis within a nondilated aorta. MUSCULOSKELETAL: Bone windows demonstrate moderate lower lumbar degenerative disc disease. OTHER: No other abnormality. IMPRESSION: 1. Mild bladder wall thickening and stranding. This may be due to under distension or cystitis. Recommend correlation with urinalysis, urine cytology and PSA. 2. Multiple bilateral nonobstructing renal [...] Findings Committee. J Am Walter Radiol. 2017 May;14(8):3648-4735. THIS IS AN ELECTRONICALLY VERIFIED FINAL REPORT 09/15/2022 10:11 AM - Electronically signed by Ko Haro M.D. AG: JAMES Report ID: [id number] Reading Location: [id number] Procedure Note Ko Haro MD - 09/15/2022 [...] Findings Committee. J Am Walter Radiol. 2017 May;14(8):3166-1496. THIS IS AN ELECTRONICALLY VERIFIED FINAL REPORT 09/15/2022 10:11 AM - Electronically signed by Ko Haro M.D. AG: JAMES Report ID: [id number] Reading Location: [id number] Elvin Carrillo NP IMG CT PROCEDURES Final Result from Last 3 Months or Most Recently Relevant to Health Maintenance [place] [address] [facility] MEDICARE [facility] MEDICARE BLUE CROSS MEDICARE SUPPLEMENT Advance Directives For more information, please contact: [phone] Documents on File Type Date Recorded Patient Chocolate Maker Expl anation ADVANCE DIRECTIVE 07/04/2017 Advance Di rective Checklist * Full Code (Latest Code Status on File) Date Activated Date Inactivated Comments 07/13/2021 3:49 PM 07/14/2021 2:07 PM Care Teams Cut Plug Packer Relationship Specialty Start Date End Date Say Low MD [address] [facility] [address] [place] [address] PCP - General 02/15/17
--- OUTSIDE RECORDS SUMMARY | 2024-11-19 13:43 | XMS_ITS | Encounter Summary ---
Author Organization [facility] Address [address] [facility] [address] [place] [address] Care Team Providers Care Flat Finisher Name Role Phone Say Low MD Primary Care Provider [phone] Encounter Details Date Type Department Care Team (Late st Contact Info) Description 02/17/2017 Orders Only Arrhythmia Center ProviderGiovanni MD [address] [place] [address] Social History Tobacco Use Types Packs/Day Years Used Date Smoking Tobacco: Former Cigarettes Q uit: 10/03/1982 Alcohol Use Standard Drinks/Week Comments No 0 (1 standard drink = 0.6 oz pur e alcohol) Sex and Gender Information Value Date Recorded Sex Assigned at Not on file Legal Sex Male 8:04 PM [employer]CISION [employer] Gender Identity Male 07/10/2021 8:31 AM CDT [...] on filedocumented in this encounter Care Teams Flat Finisher Relationship Specialty Start Date End Date Say Low MD [address] [facility] [address] [facility] [address] [place] [address] PCP - General 02/15/17 documented as of this encounter
--- OUTSIDE RECORDS SUMMARY | 2024-11-19 13:43 | XMS_ITS | Referral Summary ---
Author Organization [facility] Address [address] [place] [address] Care Team Providers Care Pumper Gauger Name Role Phone Edgar Geiger MD Unavailable Unavailable Say Low MD Primary Care Provider [phone] Source Comments [facility],non-owned Affiliates and Associated Physician Practices is amultiple site organization consisting of ambulatory clinics and hospital sitesin [place], [place], [place] and [place]. This disclosure is being madepursuant to the Care Everywhere program and may not contain all information available regarding this patient. Last updated 18.[facility] Allergies No known active allergies Medications * [...] daily with morning and evening meal. Active Harrison-3 Fatty Acids (TH OMEGA-3 FISH OIL) 1000 [...] of Treatment Not on file Care Teams Pumper Gauger Relationship Specialty Start Date End Date Say Low MD [address] [place] [address] PCP - General Internal Medicine 08/14/12 Edgar Geiger MD Cardiovascular Disease 08/14/12
--- OUTSIDE RECORDS SUMMARY | 2024-11-19 13:43 | XMS_ITS | Clinical Summary ---
Author Organization [facility] al Address [address] [place] [address] Care Team Providers Care Hub Bander Name Role Phone Say Low MD Primary Care Provider [phone] Allergies No known active allergies Medications tamsulosin [...] checks when necessary. The patient has a [id number] score of 4 (annualized risk of stroke 4%). I have therefore recommended continued anticoagulation for thromboprophylaxis. NICM (nonischemic cardiomyopathy) ([facility]) 07/03 CAD S/P percutaneous coronary angioplasty 2020 Coronary artery disease (CAD) excluded Hx of CABG 02/22/2020 Coronary artery disease invo lving coronary bypass graft of [place] heart with angina pectoris ([facility]) 02/22/2020 Assessment & Plan (02/22/2020 6:54 [...] at that time. I did check, the [employer] wraps are are coming to [facility]. So I think he should be able to get his MRI done. Preoperative cardiovascular examination 05/01/20 19 Assessment & Plan (05/01/2019 11:30 AM CDT): Due to the silent ischemia, CABG in 2003, he needs an aggressive evaluation. Nephrolithiasis 01/04/2019 Overview (01/04/2019): Added automatically from request for surgery [id number] Pacemaker 07/04/2017 Overview (07/04/2017): [employer] DDD Essentio L111 pacemaker implanted on 07/04/17 [...] HF symptoms attributed to substantial ventricular pacing, FINANCIAL PROJECT MANAGER with BiV pacing is recommended to improve [...] 6:52 PM CDT): Status post pacemaker placement, [employer] device for second-degree AV block Normal [...] Type Department Care Team Description 11/14/2024 Telephone [facility] Medical [facility] Cardiology [address], [place] [address] Shiva Anne MD 09/12/2024 11:15 AM QUARRY WORKER Ancillary Procedure [facility] [address] [place] [address] [address], [place] [address] NICM (nonischemic cardiomyopathy) (CMS/HCC) (HCC) (Primary Dx); AV node dysfunction; Pacemaker 09/05/2024 Telephone [facility] Cardiology [address], [place] [address] Shiva Anne MD low BPS'? 08/29/2024 Orders Only [facility] [address] [place] [address] [address], [place] [address] Wayne Davis MD NICM (nonischemic cardiomyopathy) (CMS/HCC) (HCC) (Primary Dx) 08/28/2024 11:30 AM QUARRY WORKER Ancillary Procedure [facility] [address] [place] [address] [address], [place] [address] NICM (nonischemic cardiomyopathy) (CMS/HCC) (HCC) (Primary Dx); Pacemaker from Last 3 Months Surgical History Surgery [...] (HCC) CHF (congestive heart failur e) (CMS/HCC) (HCC) COPD (chronic obstructive pu lmonary disease) (HCC) Chronic kidney disease Kidney stone Urolithiasis Arthritis [...] on file Legal Sex Male 8:04 PM QUARRY WORKER Gender Identity Male 07/10/2021 8:31 AM CDT Sexual Orientation Straight 06/12/2021 8: 44 AM CDT Obstetrics History Last Filed Vital Signs Vital Sign Reading Time Taken Comments Blood Pressure 114/58 08/15/2024 5:50 PM QUARRY WORKER Pulse 81 08/15/2024 5:50 PM QUARRY WORKER Temperature 37.1 C (98.8 F) 08/15/2024 1:03 PM QUARRY WORKER Respiratory Rate 26 08/15/2024 5:50 PM QUARRY WORKER Oxygen Saturation 93% 08/15/2024 5:50 PM QUARRY WORKER Inhaled Oxygen Concentration - - Weight 101.1 kg (222 lb 14.2 oz) 08/15/2024 1:03 PM QUARRY WORKER Height 172.7 cm (5' 8 ) 08/15/2024 1:03 PM QUARRY WORKER Body Mass Index 33.89 08/15/2024 1:03 PM QUARRY WORKER Plan of Treatment Health Maintenance Due Date Last Done Comments Depression Screening 1940 DTaP/Tdap/Td Vaccine (1 - Tdap) 1953 Hepatitis B Screening 1960 Pneumococcal vaccine 65+ (1 of 2 - PCV) 1961 Zoster Vaccine (1 of 2) 1992 Well Visit 65+ 2007 Fall Risk Assessment 07/14/2022 07/14/2021 Influenza Vaccine (#1) 2024 Abdominal Aortic Aneurysm (A AA) Screen Completed 09/14/2022, 01/04/2019, 02/11/2017 Medical Devices Implanted Type Area Assembler Type Bar And Segment Device Identifier Shelf Expiration Date Model / Serial / Lot [employer] Tabby Acuity X4 3.9-5.2fr 2.6fr 86cm Otw Quadripolar Long Straight 4671 - [id number] - [id number] Implanted:Qty: 1 on 08/15/2024 by Wayne Davis MD at [facility] Lead [employer] Tabby [id number] 04/28/2026 [id number] / [id number] / Pacemaker-07/04 Implanted:11/2016 (Quantity not on file) Pacemaker Chest Wall [employer]. [employer] Tabby Pacemaker Single Chamber Bridge Contractor P Visionist 0.75x4.45x6.17 cm U228 - [id number] - [id number] Implanted:Qty: 1 on 08/15/2024 by Wayne Davis MD at [facility] Pacemaker [employer] Tabby [id number] 06/08/2026 [id number] / [id number] / [employer] Tabby [id number] Synergy Xd Monorail 3.5mm 32mm 144cm Delivery System 1 Access - S0 - [id number] Implanted:Qty: 1 on 07/13/2021 by Troy Shipley MD at [facility] Stent [employer] Tabby 03/11/2023 [id number] / 0 / [id number] Description:LAD Explanted Type Area Assembler Type Bar And Segment Device Identifier Shelf Expiration Date Model / Serial / Lot [employer] [id number] Inlay [place]y 6fr 28cm Pusher Fluoro Marker Atraumatic Insertion Latex Free - [id number] Implanted:Qty: 1 on 01/17/2019 by Concetta Thurston MD at [facility] Explanted:Qty: 1 on 01/31/2019 by Elvin Carrillo NP Stent Left: Ureter [employer] [id number] 07/13/2023 [id number] / / [id number] Procedures Procedure Name Priority Date/Time Associated Diagnosis Comments DEVICE CHECK - IN OFFICE Routine 09/12/2024 10:59 AM QUARRY WORKER AV node dysfunction DEVICE CHECK - IN OFFICE Routine 08/28/2024 11:01 AM QUARRY WORKER Pacemaker CT ABDOMEN PELVIS WO CONTRAST Schedule Routine, Read Routine (OP Routine) 09/14/2022 9:43 AM QUARRY WORKER Nephrolithiasis from Last 3 Months or Most Recently Relevant to Health Maintenance Results * DEVICE CHECK - IN OFFICE (09/12/2024 10:59 AM QUARRY WORKER) Anatomical Region Laterality Modality Other Narrative 09/15/2024 3:28 PM QUARRY WORKER Table formatting from the original result was not included. BiV PACEMAKER CHECK (IN OFFICE) Patient ID: Drew Newman is a 84 y.o. male. This patient received a [employer] scientific BiV Pacemaker. They had a routine [...] to SOFI Episodes last 90 days/Comments: AF Barnard 0 %, longest duration 3 minutes and 35 seconds on 08/22. Ventricular rates were controlled. No new ventricular events. NORMAL DEVICE FUNCTION PROGRAMMED MEDICATIONS: Anti-coagulant(s): Aspirin 81 mg, Xarelto 20 mg daily Anti-arrhythmic(s): Coreg 12.5 mg twice a day PLAN: 1) normal [employer] BiV Pacemaker evaluation 2) [employer] remote transmission scheduled in 3 months. 3) Programming appropriate for device settings 4) left subclavian incision well healed, remaining Dermabond removed without incident. Gisela Butler RN us Wayne Davis MD CV CARDIAC SERVICES PRO CEDURES Final Result * DEVICE CHECK - IN OFFICE (08/28/2024 11:01 AM QUARRY WORKER) Anatomical Region Laterality Modality Other Narrative 09/01/2024 11:06 AM QUARRY WORKER Table formatting from the original result was not included. BiV PACEMAKER CHECK (IN OFFICE) Patient ID: Drew Newman is a 84 y.o. male. This patient received a [employer] scientific BiV Pacemaker. They had a routine [...] to SOFI Episodes last 90 days/Comments: AF Barnard <1 %, longest duration 3 minutes and 35 seconds. No new ventricular events. NORMAL DEVICE FUNCTION PROGRAMMED MEDICATIONS: Anti-coagulant(s): Aspirin 81 mg, Xarelto 20 mg daily Anti-arrhythmic(s): None PLAN: 1) normal [employer] BiV Pacemaker evaluation 2) wound and [...] Abdomen Pelvis WO Contrast (09/14/2022 9:43 AM QUARRY WORKER) Anatomical Region Laterality Modality Body N/A Computed Tomogra phy 09/15/2022 10:0 0 AM QUARRY WORKER Narrative 09/15/2022 10:11 AM QUARRY WORKER EXAM DESCRIPTION: CT ABDOMEN PELVIS WO CONTRAST [...] Findings Committee. J Am Walter Radiol. 2017 May;14(8):4406-0566. THIS IS AN ELECTRONICALLY VERIFIED FINAL REPORT 09/15/2022 10:11 AM - Electronically signed by Ko Haro M.D. AG: JAMES Report ID: [id number] Reading Location: [id number] Procedure Note Ko Haro MD - 09/15/2022 [...] Findings Committee. J Am Walter Radiol. 2017 May;14(8):3033-4624. THIS IS AN ELECTRONICALLY VERIFIED FINAL REPORT 09/15/2022 10:11 AM - Electronically signed by Ko Haro M.D. AG: JAMES Report ID: [id number] Reading Location: [place] [address] Elvin Carrillo NP IMG CT PROCEDURES Final Result from Last 3 Months or Most Recently Relevant to Health Maintenance Insurance MEDICARE [facility] MEDICARE [facility] MEDICARE BLUE CROSS MEDICARE SUPPLEMENT Member Subscriber Plan / Payer (Ef fective 2007-Present) Name:Drew Newman Gene Relation to Subscriber:Self Name:Drew Newman Gene Payer ID:[id number] Type:COMMERCIAL Address: [address] [place] [id number] Advance Directives For more information, please contact: [phone] Documents on File Type Date Recorded Patient Vpk Teacher Expl anation ADVANCE DIRECTIVE 07/04/2017 Advance Di rective Checklist * Full Code (Latest Code Status on File) Date Activated Date Inactivated Comments 07/13/2021 3:49 PM 07/14/2021 2:07 PM Care Teams Hub Bander Relationship Specialty Start Date End Date Say Low MD [address] [place] [address] PCP - General 02/15/17
--- OUTSIDE RECORDS SUMMARY | 2024-11-19 13:43 | XMS_ITS | Encounter Summary ---
Author Organization [facility] Medical [facility] Address [address] [place] [address] Care Team Providers Care Grinder Setup Operator Name Role Phone Say Low MD Primary Care Provider [phone] Unknown, Notinfile Primary Care Provider Unavail able Say Low MD Primary Care Provider [phone] Encounter Details Date Type Department Care Team (Late st Contact Info) Description 09/07/2016 Orders Only [facility] Provider, MD Giovanni [address] [place] [address] Social History Tobacco Use Types Packs/Day Years Used Date Smoking Tobacco: Former Cigarettes Q uit: 10/03/1982 Alcohol Use Standard Drinks/Week Comments No 0 (1 standard drink = 0.6 oz pur e alcohol) Sex and Gender Information Value Date Recorded Sex Assigned at Not on file Legal Sex Male 8:04 PM HOLDER PILE DRIVING Gender Identity Male 07/10/2021 8:31 AM CDT [...] on filedocumented in this encounter Care Teams Grinder Setup Operator Relationship Specialty Start Date End Date Say Low MD [address] [place] [address] PCP - General 10/13/15 02/10/17 Unknown, Notinfile PCP - General 02/11/17 02/14/17 Say Low MD [address] [place] [address] PCP - General 02/15/17 documented as of this encounter
--- OUTSIDE RECORDS SUMMARY | 2024-11-19 13:43 | XMS_ITS | Encounter Summary ---
Author Organization [facility] Address [address] [place] [address] Care Team Providers Care Retail Sales Specialist Name Role Phone Edgar Geiger MD Unavailable Unavailable Say Low MD Primary Care Provider [phone] Encounter Details Date Type Department Care Team (Late st Contact Info) Description 01/30/[address] [facility] Care DermPath Lab [address] [place] [address] Kumar Reno MD RETIRED Social History Tobacco [...] AM CDT) Case Report Dermatopathology Report Case: [id number] Authorizing Provider: Kumar Reno MD Collected: 01/27/2018 12:00 AM Pathologist: Rhea Gayle MD Received: 01/30/2018 11:34 AM Specimen: Skin, right scapula tip 4:54 PM T DERMATOPATHOLOGY LABORATORY Final Diagnosis Specimen A. SKIN, right scapula tip: EPIDERMOID CYST (L72.0) 4:54 PM T DERMATOPATHOLOGY LABORATORY Clinical History Epi cyst. 4:54 PM T DERMATOPATHOLOGY LABORATORY Gross Description Specimen A: Received is one formalin filled container labeled with the patient's name and designated right scapula tip. The specimen consists of a [id number], [id number] excision of skin. The specimen is serially sectioned and a safety representative section is submitted in cassette 1. [...] characteristic determined by the Dermatopathology Laboratory at [facility]. These tests need not be, and therefore are not, approved by the [place] Food and Drug Administration. The tests are used for clinical purposes. Billing Codes Specimen Charges Stain Charges 81736 1 4:54 PM CDT DERMATOPATHOLOGY LABORATORY Embedded Images 4:54 PM CDT DERMATOPATHOLOGY LABORATORY Pathology/Cytolog y TISSUE SPECIMEN FROM SKIN / Unknown 01/27/2018 01/30/2018 11:34 AM CDT Kumar Reno MD LAB - PATHOLOGY/CYTO LOGY ORDERABLES DERMATOPATHOLOGY LABORATORY [facility] - Department of Dermatology [address] [place] [address], 5th Floor Lab [address] [phone] documented in this encounter Visit Diagnoses Not on filedocumented in this encounter Care Teams Retail Sales Specialist Relationship Specialty Start Date End Date Say Low MD [address] [place] [address] PCP - General Internal Medicine 08/14/12 Edgar Geiger MD Cardiovascular Disease 08/14/12 documented as of this encounter
--- OUTSIDE RECORDS SUMMARY | 2024-11-19 13:43 | XMS_ITS | Patient Health Summary ---
Author Organization [facility] [employer] Address [address] [place] [address] Care Team Providers Care Event Marketing Intern Name Role Phone Edgar Geiger MD Unavailable Unavailable Say Low MD Primary Care Provider [phone] Note from [facility],non-owned Affiliates and Associated Physician Practices is amultiple site organization consisting of ambulatory clinics and hospital sitesin [place], [place], [place] and [place]. This disclosure is being madepursuant to the Care Everywhere program and may not contain all information available regarding this patient. Last updated 18.[facility] Allergies No known active allergies Medications * Be aware that medications may not be up to date on this document. Alwaysverify current medications with the patient. * omeprazole (PRILOSEC OTC) 20 MG tablet Take 20 mg by mouth daily before breakfast. * metFORMIN (GLUCOPHAGE) 1000 MG tablet Take 1,000 mg by mouth 2 times daily with morning and evening meal. * [place]-3 Fatty Acids (TH OMEGA-3 FISH OIL) 1000 [...] period is included. Case Report Dermatopathology Report Case: [id number] Authorizing Provider: Kumar Reno MD Collected: 01/27/2018 12:00 AM Pathologist: Rhea Gayle MD Received: 01/30/2018 11:34 AM Specimen: Skin, right scapula tip 4:54 PM CDT DERMATOPATHOLOGY LABORATORY Final Diagnosis Specimen A. SKIN, right scapula tip: EPIDERMOID CYST (L72.0) 8 4:54 PM CDT DERMATOPATHOLOGY LABORATORY Clinical History Epi cyst. 4:54 PM CDT DERMATOPATHOLOGY LABORATORY Gross Description Specimen A: Received is one formalin filled container labeled with the patient's name and designated right scapula tip. The specimen consists of a [id number], [id number] excision of skin. The specimen is serially sectioned and a outside sales account representative section is submitted in cassette 1. Jar 1. 4:54 PM CDT DERMATOPATHOLOGY LABORATORY Microscopic Description Specimen A. SKIN, right scapula tip: Within the dermis, there is a space lined by epithelium that resembles normal epidermis and the infundibular portion of the hair follicle. 4:54 PM CDT DERMATOPATHOLOGY LABORATORY Disclaimer An external and internal positive and negative controls are appropriate for the histochemical, immunohistochemical and immunofluorescence stain(s) in this case (if any), except where stated explicitly. The performance characteristics of the stain(s) cited in this report were developed and its performance characteristic determined by the Dermatopathology Laboratory at [facility]. These tests need not be, and therefore are not, approved by the [place] Food and Drug Administration. The tests are used for clinical purposes. Billing Codes Specimen Charges Stain Charges 33030 1 4:54 PM CDT DERMATOPATHOLOGY LABORATORY Embedded Images 4:54 PM CDT DERMATOPATHOLOGY LABORATORY Pathology/Cytolog y TISSUE SPECIMEN FROM SKIN / Unknown 01/27/2018 01/30/2018 11:34 AM CDT Kumar Reno MD LAB - PATHOLOGY/CYTO LOGY ORDERABLES DERMATOPATHOLOGY LABORATORY [facility] - Department of Dermatology [address] [place] [address] [address] [phone] * EKG 12-LEAD (08/06/2013) Only the most recent of3 resultswithin the time period is included. Edgar Geiger MD ECG ORDERABLES [facility] RESULT SCAN * ECHOCARDIOGRAM 2D WITH DOPPLER (02/07/2013 2:35 PM CDT) Narrative Kala Montes De Oca - 02/07/2013 2:35 PM CDT Kala Montes De Oca 02/07/2013 2:35 PM TRANSTHORACIC ECHOCARDIOGRAM REPORT Name: Drew Pak Date of Test: 02/06/2013 Age: 72 y.o. : 1940 Sex: male Blood Pressure: 130/76 Clay Modeler: SHAHRZAD Chacon Ordering Physician: Dr. Low Time [...] ATRIAL/VENTRICULAR DILATION - MILD TO MODERATE Interpreting Aviation Survival Technician: Edgar Geiger MD, [facility] Procedure Note Kala Montes De Oca - 02/07/2013 2:23 PM CDT TRANSTHORACIC ECHOCARDIOGRAM REPORT Name: Drew Pak Date of Test: 02/06/2013 Age: 72 y.o. : 1940 Sex: male Blood Pressure: 130/76 Clay Modeler: SHAHRZAD Chacon Ordering Physician: Dr. Low Time [...] ATRIAL/VENTRICULAR DILATION - MILD TO MODERATE Interpreting Aviation Survival Technician: Edgar Geiger MD, [facility] Edgar Geiger MD ECHO ORDERABLES * XR TIBIA FIBULA RIGHT 2VW (11/27/2012 10:38 AM THERMOMETER TESTER) Only the most recent of5 resultswithin the time period is included. Anatomical Region Laterality Modality Lower Extremity Other Impressions 11/27/2012 2:14 PM THERMOMETER TESTER Impression: Status post ORIF of tibial pilon fracture, unchanged alignment. Report dictated by Elia Daugherty MD. I, Dr. DONALD ODOM M.D. have personally reviewed and interpreted this examination/study. This report was electronically signed by DONALD ODOM M.D. on 11/27/2012 2:14 PM . Narrative 11/27/2012 2:14 PM THERMOMETER TESTER Exam: Tibia and fibula, 2 views Comparison: [...] RIGHT 3VW OR MORE (11/27/2012 10:38 AM THERMOMETER TESTER) Only the most recent of6 resultswithin the time period is included. Anatomical Region Laterality Modality Lower Extremity Other Impressions 11/27/2012 2:14 PM THERMOMETER TESTER Impression: Status post ORIF of tibial pilon fracture, unchanged alignment. Report dictated by Elia Daugherty MD. I, Dr. DONALD ODOM M.D. have personally reviewed and interpreted this examination/study. This report was electronically signed by DONALD ODOM M.D. on 11/27/2012 2:14 PM . Narrative 11/27/2012 2:14 PM THERMOMETER TESTER Exam: Right ankle, 3 views Comparison: Right [...] alignment. Report dictated by Elia Daugherty MD. Dr. DONALD Mendoza M.D. have personally reviewed and interpreted thisexamination/study. This report was electronically signed by DONALD ODOM M.D. on 11/27/20122:14 PM . Pasha Juarez MD DIAGNOSTIC IMAGING O RDERABLES * CT ANKLE RIGHT WO CONTRAST (11/20/2012 1:31 PM THERMOMETER TESTER) Anatomical Region Laterality Modality Lower Extremity Other Impressions 11/21/2012 5:25 PM THERMOMETER TESTER IMPRESSION: 1. Status post ORIF of a multipart tibial pilon fracture with persistence of the fracture lines/gaps. 2. 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 Dr. DONALD Mendoza M.D. have personally reviewed and interpreted this examination/study. This report was electronically signed by DONALD ODOM M.D. on 11/21/2012 5:25 PM . Narrative 11/21/2012 5:[address] EXTREMITY OF THE RIGHT ANKLE, NONCONTRAST [...] 12-LEAD MAGNET (04/18/2012 2:30 PM CDT) Narrative [facility] - 04/18/2012 2:30 PM CDT A scan was deleted from the Results section by Yesi Cantu [[id number]] on 04/18/2012 at 2:30 PM (File: [id number]) Procedure Note Giovanni Donato MD - 12/18/2018 A scan was deleted from the Results section by Yesi Cantu [[id number]] on 04/18/2012 at2:30 PM (File:[id number]) Baltazar Waldrop MD ECG ORDERABLES [facility] * XR BONE LENGTH SCANOGRAM [...] neutral axis on the left. The hip joint spaces themselves are unremarkable. The patient is status post ORIF of a right distal tibia comminuted intra- articular fracture which is unchanged in alignment with intact hardware since prior exam. There are extensive in surgical clips in the left medial distal thigh and upper leg. The left knee joint is unremarkable. Procedure Note [...] Glucose, Fingerstick 114(H) 70 - 110 MG/DL [facility] Comment:PERFORMED BY: DAIJA SALGADO 04/07/2012 8:52 AM CDT 04/07/2012 9:13 AM CDT Pasha Juarez MD LAB - CHEMISTRY CHARISSE [facility]CR[facility] Performing Organization Address City/[facility]/ZIP Co de Phone Number [address] [phone] * LAB MICROBIOLOGY - HPF HISTORICAL (07/20/2011 6:53 AM CDT) 07/20/2011 6:53 AM CDT Narrative [facility] - 07/20/2011 6:53 AM CDT Pasha Juarez MD LAB - MICROBIOLOGY O RDERABLES [facility] Care Teams Event Marketing Intern Relationship Specialty Start Date End Date Say Low MD [address] [place] [phone] PCP - General Internal Medicine 08/14/12 Edgar Geiger MD Cardiovascular Disease 08/14/12
== END 2024-11-19 10:35 | disposition home or self-care (01) ==
LOC: ANHLAB 10:37
PROVIDERS: PCP Internal Medicine; Visit Provider Internal Medicine
DX: M54.9 Dorsalgia, unspecified (principal)
CPT/HCPCS: 74018; 81001; 87086; 87186

== ENCOUNTER 2024-11-29 02:57 | Day surgery (SDC) | payer MEDICARE, SELFPAY ==
[2024-11-22 13:38] VITALS: BMI 33.0
--- NOTE | 2024-11-22 14:44 | PC.NURSE ---
Spoke with PATIENT regarding medication xarelto. Patient verbalizes understanding that the last dose is to be taken on 11/25/24 and the Endoscopist will instruct them when to restart after the procedure.
--- OUTSIDE RECORDS SUMMARY | 2024-11-29 03:00 | XMS_ITS | Patient Health Summary ---
Author Organization [facility] Address [address] [facility] [place] [address] Care Team Providers Care Band Salvager Name Role Phone Edgar Geiger MD Unavailable Unavailable Say Low MD Primary Care Provider [phone] Note from [facility],non-owned Affiliates and Associated Physician Practices is amultiple site organization consisting of ambulatory clinics and hospital sitesin [place], [place], [place] and [place]. This disclosure is being madepursuant to the Care Everywhere program and may not contain all information available regarding this patient. Last updated 18.[facility] Allergies No known active allergies Medications * Be aware that medications may not be up to date on this document. Alwaysverify current medications with the patient. * omeprazole (PRILOSEC OTC) 20 MG tablet Take 20 mg by mouth daily before breakfast. * metFORMIN (GLUCOPHAGE) 1000 MG tablet Take 1,000 mg by mouth 2 times daily with morning and evening meal. * Sidman-3 Fatty Acids (TH OMEGA-3 FISH OIL) 1000 [...] is included. Case Report Dermatopathology Report Case: [id number] Authorizing Provider: Kumar Reno MD Collected: 01/27/2018 [...] scapula tip. The specimen consists of a [id number], 99s75x3hl excision of skin. The specimen is serially sectioned and a player services representative section is submitted in cassette 1. [...] by the Dermatopathology Laboratory at [facility] [place] [facility]. These tests need not be, and therefore are not, approved by the [place] Food and Drug Administration. The tests are used for clinical purposes. Billing Codes Specimen Charges Stain Charges 00501 1 4:54 PM CDT DERMATOPATHOLOGY LABORATORY Embedded Images 4:54 PM CDT DERMATOPATHOLOGY LABORATORY Pathology/Cytolog y TISSUE SPECIMEN FROM SKIN / Unknown 01/27/2018 01/30/2018 11:34 AM CDT Kumar Reno MD LAB - PATHOLOGY/CYTO LOGY ORDERABLES DERMATOPATHOLOGY LABORATORY [facility] - Department of Dermatology [address] [place] [address] [address] [phone] * EKG 12-LEAD (08/06/2013) Only the most [...] : 1940 Sex: male Blood Pressure: 130/76 Billing Control Clerk: SHAHRZAD Chacon Ordering Physician: Dr. Low Time [...] ATRIAL/VENTRICULAR DILATION - MILD TO MODERATE Interpreting Drying Room Operator: Edgar Geiger MD, [facility] Procedure Note Kala Montes De Oca - 02/07/2013 2:23 PM CDT TRANSTHORACIC ECHOCARDIOGRAM REPORT Name: Drew Pak Date of Test: 02/06/2013 Age: 72 y.o. : 1940 Sex: male Blood Pressure: 130/76 Billing Control Clerk: SHAHRZAD Chacon Ordering Physician: Dr. Low Time [...] ATRIAL/VENTRICULAR DILATION - MILD TO MODERATE Interpreting Drying Room Operator: Edgar Geiger MD, [facility] Edgar Geiger MD ECHO ORDERABLES * XR TIBIA FIBULA RIGHT 2VW (11/27/2012 10:38 AM KNOTTING MACHINE OPERATOR) Only the most recent of5 resultswithin the time period is included. Anatomical Region Laterality Modality Lower Extremity Other Impressions 11/27/2012 2:14 PM KNOTTING MACHINE OPERATOR Impression: Status post ORIF of tibial pilon fracture, unchanged alignment. Report dictated by Elia Daugherty MD. I, Dr. DONALD ODOM M.D. have personally reviewed and interpreted this examination/study. This report was electronically signed by DONALD ODOM M.D. on 11/27/2012 2:14 PM . Narrative 11/27/2012 2:14 PM KNOTTING MACHINE OPERATOR Exam: Tibia and fibula, 2 views Comparison: [...] thisexamination/study. This report was electronically signed by DONLAD ODOM M.D. on 11/27/20122:14 PM . Pasha Juarez MD DIAGNOSTIC IMAGING O RDERABLES * XR ANKLE RIGHT 3VW OR MORE (11/27/2012 10:38 AM KNOTTING MACHINE OPERATOR) Only the most recent of6 resultswithin the time period is included. Anatomical Region Laterality Modality Lower Extremity Other Impressions 11/27/2012 2:14 PM KNOTTING MACHINE OPERATOR Impression: Status post ORIF of tibial pilon fracture, unchanged alignment. Report dictated by Elia Daugherty MD. I, Dr. DONALD ODOM M.D. have personally reviewed and interpreted this examination/study. This report was electronically signed by DONALD ODOM M.D. on 11/27/2012 2:14 PM . Narrative 11/27/2012 2:14 PM KNOTTING MACHINE OPERATOR Exam: Right ankle, 3 views Comparison: Right [...] ANKLE RIGHT WO CONTRAST (11/20/2012 1:31 PM KNOTTING MACHINE OPERATOR) Anatomical Region Laterality Modality Lower Extremity Other Impressions 11/21/2012 5:25 PM KNOTTING MACHINE OPERATOR IMPRESSION: 1. Status post ORIF of a multipart tibial pilon fracture with persistence of the fracture lines/gaps. 2. 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 Dr. DONALD Mendoza M.D. have personally reviewed and interpreted this examination/study. This report was electronically signed by DONALD ODOM M.D. on 11/21/2012 5:25 PM . Narrative 11/21/2012 5:25 PM KNOTTING MACHINE OPERATOR CT EXTREMITY OF THE RIGHT ANKLE, NONCONTRAST [...] 12-LEAD MAGNET (04/18/2012 2:30 PM CDT) Narrative [facility] - 04/18/2012 2:30 PM CDT A scan was deleted from the Results section by Yesi Cantu [[id number]] on 04/18/2012 at 2:30 PM (File: [id number]) Procedure Note Giovanni Donato MD - 12/18/2018 A scan was deleted from the Results section by Yesi Cantu [[id number]] on 04/18/2012 at2:30 PM (File:[id number]) Baltazar Waldrop MD ECG ORDERABLES [facility] * XR BONE LENGTH SCANOGRAM [...] Glucose, Fingerstick 114(H) 70 - 110 MG/DL [facility] Comment:PERFORMED BY: DAIJA SALGADO 04/07/2012 8:52 AM CDT 04/07/2012 9:13 AM CDT Pasha Juarez MD LAB - CHEMISTRY CHARISSE MCCRAY Performing Organization Address City/[facility]/ZIP Co de Phone Number [address] [phone] * LAB MICROBIOLOGY - HPF HISTORICAL (07/20/2011 6:53 AM CDT) 07/20/2011 6:53 AM CDT Narrative [facility] - 07/20/2011 6:53 AM CDT Pasha Juarez MD LAB - MICROBIOLOGY O RDERABLES [facility] Care Teams Band Salvager Relationship Specialty Start Date End Date Say Low MD [address] [place] [phone] PCP - General Internal Medicine 08/14/12 Edgar Geiger MD Cardiovascular Disease 08/14/12
--- OUTSIDE RECORDS SUMMARY | 2024-11-29 03:00 | XMS_ITS | Referral Summary ---
Author Organization [facility] Address [address] [place] [address] Care Team Providers Care Oil Well Service Operator Helper Name Role Phone Say Low MD Primary Care Provider [phone] Encounters Date Type Department Care Team Description 11/26/2024 12:00 PM BIOASSAYIST Ancillary Procedure Arrhythmia Center [address] [place] [phone] NICM (nonischemic cardiomyopathy) (CMS/HCC) (HCC) 11/14/2024 Telephone [facility] Cardiology [address] [place] [phone] Shiva Anne MD 09/12/2024 11:15 AM BIOASSAYIST Ancillary Procedure [facility] [address] [place] [phone] NICM (nonischemic cardiomyopathy) (CMS/HCC) (HCC) (Primary Dx); AV node dysfunction; Pacemaker 09/05/2024 Telephone [facility] Cardiology [address] [place] [phone] Shiva Anne MD low BPS'? 08/29/2024 Orders Only Arrhythmia Center [address] [place] [phone] Wayne Davis MD NICM (nonischemic cardiomyopathy) (CMS/HCC) (HCC) (Primary Dx) from Last 3 Months Allergies No known [...] (Xarelto) 20 mg tabletIndication s:Paroxysmal atrial fibrillation ([facility]) ([facility]) Take 1 tablet (20 mg total) by mouth daily 90 tablet 3 4 Active losartan (COZAAR) 50 mg tablet Take 1.5 tablets (75 mg total) by mouth daily 45 tablet 11 4 09/05/20 25 Active Active Problems Problem Noted Date Diagnosed Date CHB (complete heart block) ([facility]) 07/19/2024 Typical atrial flutter ([facility]) 07/19/2024 Assessment & Plan (07/19/2024 2:15 PM [...] checks when necessary. The patient has a [id number]-[id number] score of 4 (annualized risk of stroke 4%). I have therefore recommended continued anticoagulation for thromboprophylaxis. NICM (nonischemic cardiomyopathy) ([facility]) 07/03 CAD S/P percutaneous coronary angioplasty 2020 Coronary artery disease (CAD) excluded Hx of CABG 02/22/2020 Coronary artery disease invo lving coronary bypass graft of [place] heart with angina pectoris ([facility]) 02/22/2020 Assessment & Plan (02/22/2020 6:54 PM [...] at that time. I did check, the [employer] wraps are are coming to [facility]. So I think he should be able to get his MRI done. Preoperative cardiovascular examination 05/01/20 19 Assessment & Plan (05/01/2019 11:30 AM CDT): Due to the silent ischemia, CABG in 2004, he needs an aggressive evaluation. Nephrolithiasis 01/04/2019 Overview (01/04/2019): Added automatically from request for surgery [id number] Pacemaker 07/04/2017 Overview (07/04/2017): [employer] DDD Essentio L111 pacemaker implanted on [...] HF symptoms attributed to substantial ventricular pacing, MENTAL HEALTH SPECIALIST with BiV pacing is recommended to improve [...] 6:52 PM CDT): Status post pacemaker placement, [employer] device for second-degree AV block Normal [...] on file Legal Sex Male 8:04 PM BIOASSAYIST Gender Identity Male 07/10/2021 8:31 AM CDT Sexual Orientation Straight 06/12/2021 8: 44 AM CDT Last Filed Vital Signs Vital Sign Reading Time Taken Comments Blood Pressure 114/58 08/15/2024 5:50 PM BIOASSAYIST Pulse 81 08/15/2024 5:50 PM BIOASSAYIST Temperature 37.1 C (98.8 F) 08/15/2024 1:03 PM BIOASSAYIST Respiratory Rate 26 08/15/2024 5:50 PM BIOASSAYIST Oxygen Saturation 93% 08/15/2024 5:50 PM BIOASSAYIST Inhaled Oxygen Concentration - - Weight 101.1 kg (222 lb 14.2 oz) 08/15/2024 1:03 PM BIOASSAYIST Height 172.7 cm (5' 8 ) 08/15/2024 1:03 PM BIOASSAYIST Body Mass Index 33.89 08/15/2024 1:03 PM BIOASSAYIST Plan of Treatment Not on file Medical Devices Implanted Type Area Rock Drill Operator Device Identifier Shelf Expiration Date Model / Serial / Lot [employer] Tabby Acuity X4 3.9-5.2fr 2.6fr 86cm Otw Quadripolar Long Straight 4671 - [id number] - [id number] Implanted:Qty: 1 on 08/15/2024 by Wayne Davis MD at [facility] Lead [employer] Tabby [id number] 04/28/2026 [id number] / [id number] / Pacemaker-07/04 Implanted:11/2016 (Quantity not on file) Pacemaker Chest Wall [employer] Tabby Pacemaker Single Chamber Yard Clerk P Visionist 0.75x4.45x6.17 cm U228 - [id number] - [id number] Implanted:Qty: 1 on 08/15/2024 by Wayne Davis MD at [facility] Pacemaker [employer] Tabby [id number] 06/08/2026 [id number] / [id number] / [employer] Tabby [id number] Synergy Xd Monorail 3.5mm 32mm 144cm Delivery System 1 Access - S0 - [id number] Implanted:Qty: 1 on 07/13/2021 by Troy Shipley MD at [facility] Stent [employer] Tabby 03/11/2023 [id number] / [id number] / [id number] Description:LAD Explanted Type Area Rock Drill Operator Device Identifier Shelf Expiration Date Model / Serial / Lot [employer] [id number] Inlay [place] 6fr 28cm Pusher Fluoro Marker Atraumatic Insertion Latex Free - [id number] Implanted:Qty: 1 on 01/17/2019 by Concetta Thurston MD at [facility] Explanted:Qty: 1 on 01/31/2019 by Elvin Carrillo NP Stent Left: Ureter [employer] [id number] 07/13/2023 [id number] / / [id number] Procedures Procedure Name Priority Date/Time Associated Diagnosis Comments DEVICE CHECK - REMOTE Routine 11/26/2024 2:37 PM BIOASSAYIST NICM (nonischemic cardiomyopathy) (CMS/HCC) (HCC) DEVICE CHECK - IN OFFICE Routine 09/12/2024 10:59 AM BIOASSAYIST AV node dysfunction CT ABDOMEN PELVIS WO CONTRAST Schedule Routine, Read Routine (OP Routine) 09/14/2022 9:43 AM BIOASSAYIST Nephrolithiasis from Last 3 Months or Most Recently Relevant to Health Maintenance Results * DEVICE CHECK - REMOTE (11/26/2024 2:37 PM BIOASSAYIST) Anatomical Region Laterality Modality Other Narrative 11/28/2024 3:49 PM BIOASSAYIST Table formatting from the original result was not included. BiV PACEMAKER CHECK (REMOTE) Patient ID: Drew Newman is a 84 y.o. male. This patient received a [employer] BiV Pacemaker. They had a routine remote transmission on 11/26/2024. Device implant indications: Nonischemic cardiomyopathy, [place] type 2 Interrogation of the patient's device demonstrates the following: Presenting EGM: A sensed Bi V paced @ 67 bpm Original Device Settings Right Atrium Right Ventricle Left Ventricle Sensitivity (mV) 0.5 mV 2.5 mV 2.5 mV Pacemaker Outputs 2.5 V @ 0.4 ms 2.0 V @ 0.4 ms 2.5 V @ 0.4 ms Testing Measurements Right Atrium Right Ventricle Left Ventricle Sensitivity (mV) 5.4 mV Paced mV >25 mV Impedence (Ohms) 452 ohms 483 ohms 994 ohms Pace Threshold Not done V @ ms 0.5 V @ 0.4 ms Not done V @ ms Pacing % 27 % 100 % 100 % Battery Status: 11 years to SOFI Episodes last 60 days/Comments: AF [place] 0 % No new ventricular NORMAL DEVICE FUNCTION PROGRAMMED MEDICATIONS: Anti-coagulant(s): Aspirin 81 mg, Xarelto 20 mg daily Anti-arrhythmic(s): Coreg 12.5 mg twice a day PLAN: 1) [employer] BiV Pacemaker evaluation 2) [employer] remote transmission scheduled in 3 months. 3) Programming appropriate for device settings Gisela Butler RN us Wayne Davis MD CV CARDIAC SERVICES PRO CEDURES Final Result * DEVICE CHECK - IN OFFICE (09/12/2024 10:59 AM BIOASSAYIST) Anatomical Region Laterality Modality Other Narrative 09/15/2024 3:28 PM BIOASSAYIST Table formatting from the original result was not included. BiV PACEMAKER CHECK (IN OFFICE) Patient ID: Drew Newman is a 84 y.o. male. This patient received a [employer] BiV Pacemaker. They had a routine [...] to SOFI Episodes last 90 days/Comments: AF [place] 0 %, longest duration 3 minutes and 35 seconds on 08/22. Ventricular rates were controlled. No new ventricular events. NORMAL DEVICE FUNCTION PROGRAMMED MEDICATIONS: Anti-coagulant(s): Aspirin 81 mg, Xarelto 20 mg daily Anti-arrhythmic(s): Coreg 12.5 mg twice a day PLAN: 1) normal [employer] BiV Pacemaker evaluation 2) [employer] remote transmission scheduled in 3 months. 3) Programming appropriate for device settings 4) left subclavian incision well healed, remaining Dermabond removed without incident. Gisela Butler RN us Wayne Davis MD CV CARDIAC SERVICES PRO CEDURES Final Result * CT Abdomen Pelvis WO Contrast (09/14/2022 9:43 AM BIOASSAYIST) Anatomical Region Laterality Modality Body N/A Computed Tomogra phy 09/15/2022 10:0 0 AM BIOASSAYIST Narrative 09/15/2022 10:11 AM BIOASSAYIST EXAM DESCRIPTION: CT ABDOMEN PELVIS WO CONTRAST [...] Findings Committee. J Am Walter Radiol. 2017 May;14(8):7916-6095. THIS IS AN ELECTRONICALLY VERIFIED FINAL REPORT 09/15/2022 10:11 AM - Electronically signed by Ko Haro M.D. AG: JAMES Report ID: [id number] Reading Location: [id number] Procedure Note Ko Haro MD - 09/15/2022 [...] Findings Committee. J Am Walter Radiol. 2017 May;14(8):6373-2814. THIS IS AN ELECTRONICALLY VERIFIED FINAL REPORT 09/15/2022 10:11 AM - Electronically signed by Ko Haro M.D. AG: JAMES Report ID: [id number] Reading Location: [id number] Elvin Carrillo NP IMG CT PROCEDURES Final Result from Last 3 Months or Most Recently Relevant to Health Maintenance Insurance MEDICARE [facility] MEDICARE [facility] MEDICARE BLUE CROSS MEDICARE SUPPLEMENT Advance Directives For more information, please contact: [phone] Documents on File Type Date Recorded Patient Assistant Front End Manager Expl anation ADVANCE DIRECTIVE 07/04/2017 Advance Di rective Checklist * Full Code (Latest Code Status on File) Date Activated Date Inactivated Comments 07/13/2021 3:49 PM 07/14/2021 2:07 PM Care Teams Oil Well Service Operator Helper Relationship Specialty Start Date End Date Say Low MD [address] [place] [address] PCP - General 02/15/17
--- OUTSIDE RECORDS SUMMARY | 2024-11-29 03:00 | XMS_ITS | Encounter Summary ---
Author Organization [facility] Address [address] [facility] [address] [facility] [address] [place] [address] Care Team Providers Care Seo Strategist Name Role Phone Say Low MD Primary Care Provider Encounter Details Date Type Department Care Team (Late st Contact Info) Description 02/17/2017 Orders Only Arrhythmia Center ProviderGiovanni MD [address] [place] [address] Social History Tobacco Use Types Packs/Day Years Used Date Smoking Tobacco: Former Cigarettes Q uit: 10/03/1982 Alcohol Use Standard Drinks/Week Comments No 0 (1 standard drink = 0.6 oz pur e alcohol) Sex and Gender Information Value Date Recorded Sex Assigned at Not on file Legal Sex Male 8:04 PM PANTOGRAPH MACHINE SET UP OPERATOR Gender Identity Male [...] on filedocumented in this encounter Care Teams Seo Strategist Relationship Specialty Start Date End Date Say Low MD [address] [facility] [address] [facility] [address] [place] [address] PCP - General 02/15/17 documented as of this encounter
--- OUTSIDE RECORDS SUMMARY | 2024-11-29 03:00 | XMS_ITS | Encounter Summary ---
Author Organization [facility] Address [address] [place] [address] Care Team Providers Care Photo Colorer Name Role Phone Edgar Geiger MD Unavailable Unavailable Say Low MD Primary Care Provider [phone] Encounter Details Date Type Department Care Team (Late st Contact Info) Description 01/30/2018 Lab Requisition [facility] Care DermPath Lab [address] [place] [phone] Kumar Reno MD RETIRED Social History Tobacco [...] AM CDT) Case Report Dermatopathology Report Case: [id number] Authorizing Provider: Kumar Reno MD Collected: 01/27/2018 [...] scapula tip. The specimen consists of a [id number], 64y78m8hi excision of skin. The specimen is serially sectioned and a cash posting representative section is submitted in cassette 1. [...] characteristic determined by the Dermatopathology Laboratory at [facility]. These tests need not be, and therefore are not, approved by the [place] Food and Drug Administration. The tests are used for clinical purposes. Billing Codes Specimen Charges Stain Charges 13404 1 4:54 PM CDT DERMATOPATHOLOGY LABORATORY Embedded Images 4:54 PM CDT DERMATOPATHOLOGY LABORATORY Pathology/Cytolog y TISSUE SPECIMEN FROM SKIN / Unknown 01/27/2018 01/30/2018 11:34 AM CDT Kumar Reno MD LAB - PATHOLOGY/CYTO LOGY ORDERABLES DERMATOPATHOLOGY LABORATORY [facility] - Department of Dermatology [address] [place] [address], 5th Floor Lab [address] [phone] documented in this encounter Visit Diagnoses Not on filedocumented in this encounter Care Teams Photo Colorer Relationship Specialty Start Date End Date Say Low MD [address] [place] [address] PCP - General Internal Medicine 08/14/12 Edgar Geiger MD Cardiovascular Disease 08/14/12 documented as of this encounter
--- OUTSIDE RECORDS SUMMARY | 2024-11-29 03:00 | XMS_ITS | Clinical Summary ---
Author Organization [facility] Address [address] [facility] [place] [address] Care Team Providers Care Ct Technologist Name Role Phone Edgar Geiger MD Unavailable Unavailable Say Low MD Primary Care Provider [phone] Source Comments [facility],non-owned Affiliates and Associated Physician Practices is amultiple site organization consisting of ambulatory clinics and hospital sitesin [place], [place], [place] and [place]. This disclosure is being madepursuant to the Care Everywhere program and may not contain all information available regarding this patient. Last updated 18.[facility] Allergies No known active allergies Medications * [...] daily with morning and evening meal. Active Kaleva-3 Fatty Acids (TH OMEGA-3 FISH OIL) 1000 [...] age to complete this topic Care Teams Ct Technologist Relationship Specialty Start Date End Date Say Low MD [address] [place] [phone] PCP - General Internal Medicine 08/14/12 Edgar Geiger MD Cardiovascular Disease 08/14/12
--- OUTSIDE RECORDS SUMMARY | 2024-11-29 03:00 | XMS_ITS | Clinical Summary ---
Author Organization [facility] al Address [address] [place] [address] Care Team Providers Care Vb Developer Name Role Phone Say Low MD Primary Care Provider [phone] Allergies No known active allergies Medications tamsulosin [...] checks when necessary. The patient has a [id number] score of 4 (annualized risk of stroke 4%). I have therefore recommended continued anticoagulation for thromboprophylaxis. NICM (nonischemic cardiomyopathy) ([facility]) 07/03 CAD S/P percutaneous coronary angioplasty 2020 Coronary artery disease (CAD) excluded Hx of CABG 02/22/2020 Coronary artery disease invo lving coronary bypass graft of [place] heart with angina pectoris ([facility]) 02/22/2020 Assessment & Plan (02/22/2020 [...] at that time. I did check, the [employer] wraps are are coming to [facility]. So I think he should be able to get his MRI done. Preoperative cardiovascular examination 05/01/20 19 Assessment & Plan (05/01/2019 11:30 AM CDT): Due to the silent ischemia, CABG in 2003, he needs an aggressive evaluation. 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 pacing is recommended to improve [...] 6:52 PM CDT): Status post pacemaker placement, [employer] device for second-degree AV block Normal [...] Department Care Team Description 11/26/2024 12:00 PM DRIVER MEDIC Ancillary Procedure [facility] [address] [place] [address] [address], [place] [address] NICM (nonischemic cardiomyopathy) (CMS/HCC) (HCC) 11/14/2024 Telephone [facility] Cardiology [address] [facility] [address] [address] Shiva Anne MD 09/12/2024 11:15 AM DRIVER MEDIC Ancillary Procedure [facility] [address] [place] [address] [address], [place] [address] NICM (nonischemic cardiomyopathy) (CMS/HCC) ([facility]) (Primary Dx); AV node dysfunction; Pacemaker 09/05/2024 Telephone [facility] Cardiology [address] [facility] [address], [place] [address] Shiva Anne MD low BPS'? 08/29/2024 Orders Only [facility] [address] [place] [id number] Wayne Davis MD NICM (nonischemic cardiomyopathy) (CMS/HCC) ([facility]) (Primary Dx) from Last 3 Months Surgical History Surgery [...] Arthritis Congestive heart failure (CH F) (CMS/HCC) ([facility]) Family History Medical History Relation Name Comments [...] on file Legal Sex Male 8:04 PM DRIVER MEDIC Gender Identity Male 07/10/2021 8:31 AM CDT Sexual Orientation Straight 06/12/2021 8: 44 AM CDT Obstetrics History Last Filed Vital Signs Vital Sign Reading Time Taken Comments Blood Pressure 114/58 08/15/2024 5:50 PM DRIVER MEDIC Pulse 81 08/15/2024 5:50 PM DRIVER MEDIC Temperature 37.1 C (98.8 F) 08/15/2024 1:03 PM DRIVER MEDIC Respiratory Rate 26 08/15/2024 5:50 PM DRIVER MEDIC Oxygen Saturation 93% 08/15/2024 5:50 PM DRIVER MEDIC Inhaled Oxygen Concentration - - Weight 101.1 kg (222 lb 14.2 oz) 08/15/2024 1:03 PM DRIVER MEDIC Height 172.7 cm (5' 8 ) 08/15/2024 1:03 PM DRIVER MEDIC Body Mass Index 33.89 08/15/2024 1:03 PM DRIVER MEDIC Plan of Treatment Health Maintenance Due Date [...] 01/04/2019, 02/11/2017 Medical Devices Implanted Type Area Yield Analyst Device Identifier Shelf Expiration Date Model / Serial / Lot [employer] Tabby Acuity X4 3.9-5.2fr 2.6fr 86cm Otw Quadripolar Long Straight [id number] - [id number] - [id number] Implanted:Qty: 1 on 08/15/2024 by Wayne Davis MD at [facility] Lead [employer] Tabby [id number] 04/28/2026 [id number] / [id number] / Pacemaker-07/04 Implanted:11/2016 (Quantity not on file) Pacemaker Chest Wall [employer]M. [employer] Tabby Pacemaker Single Chamber Housekeeping Room Inspector P Visionist 0.75x4.45x6.17 cm U228 - [id number] - [id number] Implanted:Qty: 1 on 08/15/2024 by Wayne Davis MD at [facility] Pacemaker [employer] Tabby [id number] 06/08/2026 [id number] / [id number] / [employer]by [id number] Synergy Xd Monorail 3.5mm 32mm 144cm Delivery System 1 Access - S0 - [id number] Implanted:Qty: 1 on 07/13/2021 by Troy Shipley MD at [facility] Stent [employer] Tabby 03/11/2023 [id number] / [id number] / [id number] Description:LAD Explanted Type Area Yield Analyst Device Identifier Shelf Expiration Date Model / Serial / Lot [employer] [id number] Inlay Riesel 6fr 28cm Pusher Fluoro Marker Atraumatic Insertion Latex Free - [id number] Implanted:Qty: 1 on 01/17/2019 by Concetta Thurston MD at [facility] Explanted:Qty: 1 on 01/31/2019 by Elvin Carrillo NP Stent Left: Ureter [employer] [id number] 07/13/2023 [id number] / / [id number] Procedures Procedure Name Priority Date/Time Associated Diagnosis Comments DEVICE CHECK - REMOTE Routine 11/26/2024 2:37 PM DRIVER MEDIC NICM (nonischemic cardiomyopathy) (CMS/HCC) (HCC) DEVICE CHECK - IN OFFICE Routine 09/12/2024 10:59 AM DRIVER MEDIC AV node dysfunction CT ABDOMEN PELVIS WO CONTRAST Schedule Routine, Read Routine (OP Routine) 09/14/2022 9:43 AM DRIVER MEDIC Nephrolithiasis from Last 3 Months or Most Recently Relevant to Health Maintenance Results * DEVICE CHECK - REMOTE (11/26/2024 2:37 PM DRIVER MEDIC) Anatomical Region Laterality Modality Other Narrative 11/28/2024 3:49 PM DRIVER MEDIC Table formatting from the original result was not included. BiV PACEMAKER CHECK (REMOTE) Patient ID: Drew Newman is a 84 y.o. male. This patient received a [place] [employer] BiV Pacemaker. They had a routine [...] to SOFI Episodes last 60 days/Comments: AF Vida 0 % No new ventricular NORMAL DEVICE FUNCTION PROGRAMMED MEDICATIONS: Anti-coagulant(s): Aspirin 81 mg, Xarelto 20 mg daily Anti-arrhythmic(s): Coreg 12.5 mg twice a day PLAN: 1) [employer] [place] [employer] BiV Pacemaker evaluation 2) [employer] [place] [employer] remote transmission scheduled in 3 months. 3) Programming appropriate for device settings Gisela Butler RN Wayne Davis MD [facility] PRO CEDURES Final Result * DEVICE CHECK - IN OFFICE (09/12/2024 10:59 AM DRIVER MEDIC) Anatomical Region Laterality Modality Other Narrative 09/15/2024 3:28 PM DRIVER MEDIC Table formatting from the original result was not included. BiV PACEMAKER CHECK (IN OFFICE) Patient ID: Drew Newman is a 84 y.o. male. This patient received a [place] [employer] BiV Pacemaker. They had a routine [...] to SOFI Episodes last 90 days/Comments: AF Vida 0 %, longest duration 3 minutes and 35 seconds on 08/22. Ventricular rates were controlled. No new ventricular events. NORMAL DEVICE FUNCTION PROGRAMMED MEDICATIONS: Anti-coagulant(s): Aspirin 81 mg, Xarelto 20 mg daily Anti-arrhythmic(s): Coreg 12.5 mg twice a day PLAN: 1) normal [employer] [place] [employer] BiV Pacemaker evaluation 2) [employer] [place] [employer] remote transmission scheduled in 3 months. 3) Programming appropriate for device settings 4) left subclavian incision well healed, remaining Dermabond removed without incident. Gisela Delanty, RN us Wayne Davis MD CV CARDIAC SERVICES PRO CEDURES Final Result * CT Abdomen Pelvis WO Contrast (09/14/2022 9:43 AM DRIVER MEDIC) Anatomical Region Laterality Modality Body N/A Computed Tomogra phy 09/15/2022 10:0 0 AM DRIVER MEDIC Narrative 09/15/2022 10:11 AM DRIVER MEDIC EXAM DESCRIPTION: CT ABDOMEN PELVIS WO CONTRAST [...] Findings Committee. J Am Walter Radiol. 2017 May;14(8):6891-4982. THIS IS AN ELECTRONICALLY VERIFIED FINAL REPORT 09/15/2022 10:11 AM - Electronically signed by Ko Haro M.D. AG: JAMES Report ID: [id number] Reading Location: [id number] Procedure Note Ko Haro MD - 09/15/2022 [...] Findings Committee. J Am Walter Radiol. 2017 May;14(8):9837-7854. THIS IS AN ELECTRONICALLY VERIFIED FINAL REPORT 09/15/2022 10:11 AM - Electronically signed by Ko Haro M.D. AG: JAMES Report ID: [id number] Reading Location: [place] [address] [place] Marlin Carrillo NP IMG CT PROCEDURES Final Result from Last 3 Months or Most Recently Relevant to Health Maintenance Insurance MEDICARE [facility] MEDICARE [facility] MEDICARE BLUE CROSS MEDICARE SUPPLEMENT Advance Directives For more information, please contact: [phone] Documents on File Type Date Recorded Patient Automated Equipment Engineer Technician Expl anation ADVANCE DIRECTIVE 07/04/2017 Advance Di rective Checklist * Full Code (Latest Code Status on File) Date Activated Date Inactivated Comments 07/13/2021 3:49 PM 07/14/2021 2:07 PM Care Teams Vb Developer Relationship Specialty Start Date End Date Say Low MD [address] [facility] [address] [place] [address] PCP - General 02/15/17
--- OUTSIDE RECORDS SUMMARY | 2024-11-29 03:00 | XMS_ITS | Encounter Summary ---
Author Organization [facility] Address [address] [facility] [address] [place] [address] Care Team Providers Care Hand Worker Name Role Phone Say Low MD Primary Care Provider [phone] Unknown, Notinfile Primary Care Provider Unavail able Say Low MD Primary Care Provider [phone] Encounter Details Date Type Department Care Team (Late st Contact Info) Description 09/07/2016 Orders Only Ar[facility]hythmia Center Provider, MD Giovanni [address] [place] [address] Social History Tobacco Use Types Packs/Day Years Used Date Smoking Tobacco: Former Cigarettes Q uit: 10/03/1982 Alcohol Use Standard Drinks/Week Comments No 0 (1 standard drink = 0.6 oz pur e alcohol) Sex and Gender Information Value Date Recorded Sex Assigned at Not on file 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
--- OUTSIDE RECORDS SUMMARY | 2024-11-29 03:00 | XMS_ITS | Encounter Summary ---
Author Organization [facility] Address [address] [facility] [address] [place] [address] Care Team Providers Care Intermediate Designer Name Role Phone Say Low MD Primary Care Provider [phone] Unknown, Notinfile Primary Care Provider Unavail able Say Low MD Primary Care Provider [phone] Encounter Details Date Type Department Care Team (Late st Contact Info) Description 09/08/2016 Orders Only Ar[facility]hythmia Center Provider, MD Giovanni [address] [place] [address] Social History Tobacco Use Types Packs/Day Years Used Date Smoking Tobacco: Former Cigarettes Q uit: 10/03/1982 Alcohol Use Standard Drinks/Week Comments No 0 (1 standard drink = 0.6 oz pur e alcohol) Sex and Gender Information Value Date Recorded Sex Assigned at Not on file 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
--- OUTSIDE RECORDS SUMMARY | 2024-11-29 03:00 | XMS_ITS | Encounter Summary ---
Author Organization [facility] Address [address] [facility] [address] [place] [address] Care Team Providers Care Brass Cutter Name Role Phone Say Low MD Primary Care Provider [phone] Unknown, Notinfile Primary Care Provider Unavail able Say Low MD Primary Care Provider [phone] Encounter Details Date Type Department Care Team (Late st Contact Info) Description 10/01/2016 Orders Only Arrhythmia Center Provider, MD Giovanni [facility] [place] [address] Social History Tobacco Use Types Packs/Day Years Used Date Smoking Tobacco: Former Cigarettes Q uit: 10/03/1982 Alcohol Use Standard Drinks/Week Comments No 0 (1 standard drink = 0.6 oz pur e alcohol) Sex and Gender Information Value Date Recorded Sex Assigned at Not on file 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
--- OUTSIDE RECORDS SUMMARY | 2024-11-29 03:00 | XMS_ITS | Referral Summary ---
Author Organization [facility] Address [address] [facility] [place] [address] Care Team Providers Care President & Ceo Name Role Phone Edgar Geiger MD Unavailable Unavailable Say Low MD Primary Care Provider [phone] Source Comments [facility],non-owned Affiliates and Associated Physician Practices is amultiple site organization consisting of ambulatory clinics and hospital sitesin [place], [place], [place] and [place]. This disclosure is being madepursuant to the Care Everywhere program and may not contain all information available regarding this patient. Last updated 18.[facility] Allergies No known active allergies Medications * [...] daily with morning and evening meal. Active [place]-3 Fatty Acids (TH OMEGA-3 FISH OIL) 1000 [...] of Treatment Not on file Care Teams President & Ceo Relationship Specialty Start Date End Date Say Low MD [address] [place] [address] PCP - General Internal Medicine 08/14/12 Edgar Geiger MD Cardiovascular Disease 08/14/12
--- OUTSIDE RECORDS SUMMARY | 2024-11-29 03:00 | XMS_ITS | Clinical Summary ---
Author Organization [facility] Address [address] [place] [address] Phone Care Team Providers Care Hand Trimmer Name Role Phone Say Low MD Primary Care Provider [phone] Allergies No known active allergies Medications Medication [...] at that time. I did check, the [employer] wraps are are coming to [facility]. So I think he should be able to get his MRI done. 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
--- OUTSIDE RECORDS SUMMARY | 2024-11-29 03:00 | XMS_ITS | Encounter Summary ---
Author Organization [facility] Address [address] [place] [address] Care Team Providers Care Pumper Brewery Name Role Phone Edgar Geiger MD Unavailable Unavailable Say Low MD Primary Care Provider [phone] Encounter Details Date Type Department Care Team (Late st Contact Info) Description 01/12/2018 Lab Requisition [facility] Care DermPath Lab [address] [place] [address] Kumar Reno MD RETIRED Social History Tobacco [...] AM CDT) Case Report Dermatopathology Report Case: [id number] Authorizing Provider: Kumar Reno MD Collected: 01/11/2018 [...] specimen consists of a shave biopsy measuring [id number]. Jar 0. 6:41 PM T DERMATOPATHOLOGY LABORATORY [...] characteristic determined by the Dermatopathology Laboratory at [facility]. These tests need not be, and therefore are not, approved by the [place] Food and Drug Administration. The tests are used for clinical purposes. Billing Codes Specimen Charges Stain Charges 64010 1 8 6:41 PM CDT DERMATOPATHOLOGY LABORATORY Embedded Images 8 6:41 PM T DERMATOPATHOLOGY LABORATORY Pathology/Cytolog y TISSUE SPECIMEN FROM SKIN / Unknown 01/11/2018 01/12/2018 11:39 AM CDT Kumar Reno MD LAB - PATHOLOGY/CYTO LOGY ORDERABLES DERMATOPATHOLOGY LABORATORY [facility] - Department of Dermatology [address] [place] [address] 5th [address] Lab [address] [phone] documented in this encounter Visit Diagnoses Not on filedocumented in this encounter Care Teams Pumper Brewery Relationship Specialty Start Date End Date Say Low MD [address] [place] [address] PCP - General Internal Medicine 08/14/12 Edgar Geiger MD Cardiovascular Disease 08/14/12 documented as of this encounter
[2024-11-29 13:48] VITALS: BP 137/62; PULSE 66; RESP 18; TEMP 36.4; O2SAT 97
[2024-11-29] MEDS: LACTATED RINGERS 1,000 ML 150 ML IV CONT (14:01)
[2024-11-29 14:02] LABS: Glucose Point of Care 86 mg/dl (65-105)
--- NOTE | 2024-11-29 15:35 | WPDANESEPPF ---
Anes - Initial Pre Proc Eval Procedure: Operation Date: 11/29/24 14:15 Proposed Procedures p Esophagogastroduodenoscopy & Colonoscopy - Kip Li MD Date/Time: 11/29/24 15:35 Surgeon: Kip Li MD Pre Op Diagnosis: Iron definiency,Gerd,Esophageal web,colon polyps Patient Data Age: 84 Gender: M Height: 1.74 m Weight: 99.1 kg Last Vital Signs Temp 36.4 C L 11/29/24 13:48 Pulse 66 11/29/24 13:48 Resp 18 11/29/24 13:48 BP 137/62 11/29/24 13:48 Pulse Ox 97 11/29/24 13:48 O2 Del Method Room Air 11/29/24 13:48 Allergies Allergy/AdvReac Type Severity Reaction Status Date / Time KATLYN Inhibitors AdvReac Intermediate Cough Verified 11/29/24 13:44 Home Medications ?Medication ?Instructions ?Recorded ?Confirmed ?Type rivaroxaban 20 mg tablet (Xarelto) 20 mg PO DAILY 06/30/22 11/29/24 History aspirin 81 mg tablet 81 mg PO DAILY 08/03/22 11/29/24 History cholecalciferol (vitamin D3) 50 50 mcg PO DAILY 05/17/23 11/29/24 History mcg (2,000 unit) capsule (Vitamin D3) vitamin B complex 1 cap PO DAILY 05/17/23 11/29/24 History omeprazole 20 mg capsule,delayed 20 mg PO DAILY #90 caps 08/30/23 11/29/24 Rx release quercetin 1 tab-cap PO BID 12/06/23 11/29/24 History atorvastatin 10 mg tablet See Rx Instructions .Route 02/13/24 11/29/24 Rx .COMPLEX #45 tabs spironolactone 25 mg tablet 12.5 mg PO DAILY 05/16/24 11/29/24 History allopurinol 300 mg tablet 150 mg (1/2 x 300 mg) PO DAILY #90 07/08/24 11/29/24 Rx tabs empagliflozin 5 mg-metformin ER 1 tablet PO DAILY #90 ea 07/24/24 11/29/24 Rx 1,000 mg tablet,extended release 24 hr (Synjardy XR) carvedilol 12.5 mg tablet See Rx Instructions .Route 07/25/24 11/29/24 Rx .COMPLEX #180 tabs folic acid 1 mg tablet See Rx Instructions .Route 08/20/24 11/29/24 Rx .COMPLEX #90 tabs tamsulosin 0.4 mg capsule See Rx Instructions .Route 08/20/24 11/29/24 Rx .COMPLEX #90 caps furosemide 40 mg tablet See Rx Instructions .Route .qod 09/21/24 11/29/24 Rx #90 tabs losartan 50 mg tablet 75 mg PO DAILY 09/21/24 11/29/24 History potassium citrate 10 mEq (1,080 10 meq PO .qod #90 tabs 09/21/24 11/29/24 Rx mg) tablet,extended release sulfamethoxazole 800 1 tablet PO Q12H #20 tabs 11/21/24 11/29/24 Rx mg-trimethoprim 160 mg tablet (Bactrim DS) nystatin-triamcinolone 100,000 1 applic topical TID PRN rash 11/22/24 11/22/24 History unit/g-0.1 % topical cream Laboratory Tests 11/29/24 13:58 POC Capillary Glucose 86 mg/dl (65-105) Patient hx anesthesia problems: none Family hx anesthesia problems: none Results Review: All pre-operative results and documents have been reviewed as part of the pre-operative evaluation. [facility] Past Medical History Medical History Venous stasis ulcer Pleuritic chest pain Peripheral edema Vision changes Cellulitis Impacted cerumen of both ears Abnormal results of kidney function studies Bronchitis Fall Onychomycosis Skin lesion UTI (urinary tract infection) Skin lesion Right shoulder pain Right hip pain Pneumonia Chest congestion Cough Kidney stones Personal history of COVID-19 Gastric polyp MACIEJ on CPAP BMI 31.0-31.9,adult Guaiac positive stools Interstitial lung disease Cirrhosis of liver BMI 32.0-32.9,adult History of pneumonia, recurrent DOLAN (dyspnea on exertion) BMI 29.0-29.9,adult BMI 30.0-30.9,adult Hospital discharge follow-up Pneumonia due to COVID-19 virus Elevated troponin Person under investigation for COVID-19 CHF exacerbation Hypoxia Systolic CHF Ringworm Wound of right foot Obesity Anemia Gastroesophageal reflux disease Benign prostatic hyperplasia Anxiety Ascending aortic aneurysm Osteoarthritis Gout History of colon polyps Diastolic congestive heart failure Echocardiogram in 05/2019 showed mild LV ventricular enlargement, mild concentric LVH, moderate apical and apical septal hypokinesis, grade 2 diastolic dysfunction, EF 50%, moderately enlarged left atrium, moderate mitral and mild aortic valve regurgitation. Coronary artery disease Status post three-vessel bypass in 2003. 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 Shingles Mixed hyperlipidemia Surgical History Surgical History History of open reduction and internal fixation (ORIF) procedure Right lower extremity fracture. History of arthroplasty of right knee (~12/23/20) History of arthroscopy of right knee History of tonsillectomy History of colonoscopy with polypectomy History of coronary artery bypass graft x 3 (~2003) History of permanent cardiac pacemaker placement History of lumbar surgery Lumbar laminectomy at several levels with what sounds like foraminectomy as well. Family History Family History Mother Diabetes mellitus Cerebrovascular accident Father Acute myocardial infarction Hypertension Bladder cancer Other Arthritis Heart disease Social History Social History Social History: Surrogate decision maker: Pilar George, daughter. Code status: Full code. Caffeine-coffee Smoking packs per day: 3 Smoking cigarettes per day: 60.0 Years smoked: 40 Smoking pack-years: 120.00 Smoking status: Former smoker Tobacco type: cigarettes Second hand tobacco smoke exposure: Yes Smoking end date: 10/03/81 Additional smoking assessment comments: Up to 3 packs a day, quit in 1981. Alcohol intake: current Drinks per week: 2 Alcohol use details: No alcohol since 2013. Substance use: never Substance use type: does not use Do You Feel Safe in your Home?: Yes Lack of Transportation: No Lack of Food: Never True Current Housing: I Have Housing Concerned About Future Housing: No Difficulty Paying Gas/Electric Bills: No Difficulty Paying for Meds: No Currently Unemployed: No Education: High School Diploma/GED Difficulty w/ Childcare or Family Care: No Living arrangements: with family Additional living arrangements comments: Resides [facility], [facility] years. Additional occupation/education comments: Retired. 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 Gender identity (if verbalized by the patient): Male Spiritual care concerns: No Anes - Eval Final PreProcedure Day of Procedure 11/29/24 15:35 Patient weight: obese Heart: regular rate and rhythm Lungs: clear to auscultation Airway: Mallampati scale class II Neurological: alert and oriented Last oral intake: >/= 8 hours ASA classification: III Emergent: no Anesthetic plan: proceed Anesthesia type and monitoring: general GIVS and standard monitoring Results Review: All pre-operative results and documents have been reviewed as part of the pre-operative evaluation. Informed Consent: The patient's anesthetic plan and its attendant risks and benefits were discussed with the patient/family/POA. Questions were solicited and answers provided to the satisfaction of the patient/family/POA.
--- NOTE | 2024-11-29 15:38 | PM.IMHP ---
H&P: [facility] History of Present Illness Date/Time: 11/29/24 15:38 Chief Complaint: Iron deficiency anemia - dysphagia Narrative: the patient has been found to have low iron saturation, (9 %), and a mild drop in hematocrit. This is all in the absence of GI symptoms such as abdominal pain, diarrhea, constipation, change in bowel habits, rectal bleeding, melena or hematochezia. He has been diagnosed with lower esophageal ring in the past, requiring dilatation, last one in 2020. He is referred for EGD and colonoscopy. Review of Systems Review of Systems: All systems reviewed & are unremarkable except as noted in HPI and below PMFSH Past Medical History Medical History Venous stasis ulcer Pleuritic chest pain Peripheral edema Vision changes Cellulitis Impacted cerumen of both ears Abnormal results of kidney function studies Bronchitis Fall Onychomycosis Skin lesion UTI (urinary tract infection) Skin lesion Right shoulder pain Right hip pain Pneumonia Chest congestion Cough Kidney stones Personal history of COVID-19 Gastric polyp MACIEJ on CPAP BMI 31.0-31.9,adult Guaiac positive stools Interstitial lung disease Cirrhosis of liver BMI 32.0-32.9,adult History of pneumonia, recurrent DOLAN (dyspnea on exertion) BMI 29.0-29.9,adult BMI 30.0-30.9,adult Hospital discharge follow-up Pneumonia due to COVID-19 virus Elevated troponin Person under investigation for COVID-19 CHF exacerbation Hypoxia Systolic CHF Ringworm Wound of right foot Obesity Anemia Gastroesophageal reflux disease Benign prostatic hyperplasia Anxiety Ascending aortic aneurysm Osteoarthritis Gout History of colon polyps Diastolic congestive heart failure Echocardiogram in 05/2019 showed mild LV ventricular enlargement, mild concentric LVH, moderate apical and apical septal hypokinesis, grade 2 diastolic dysfunction, EF 50%, moderately enlarged left atrium, moderate mitral and mild aortic valve regurgitation. Coronary artery disease Status post three-vessel bypass in 2003. 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 Shingles Mixed hyperlipidemia Surgical History Surgical History History of open reduction and internal fixation (ORIF) procedure Right lower extremity fracture. History of arthroplasty of right knee (~12/23/20) History of arthroscopy of right knee History of tonsillectomy History of colonoscopy with polypectomy History of coronary artery bypass graft x 3 (~2003) History of permanent cardiac pacemaker placement History of lumbar surgery Lumbar laminectomy at several levels with what sounds like foraminectomy as well. Family History Family History Mother Diabetes mellitus Cerebrovascular accident Father Acute myocardial infarction Hypertension Bladder cancer Other Arthritis Heart disease Social History Social History Social History: Surrogate decision maker: Pilar George, daughter. Code status: Full code. Caffeine-coffee Smoking packs per day: 3 Smoking cigarettes per day: 60.0 Years smoked: 40 Smoking pack-years: 120.00 Smoking status: Former smoker Tobacco type: cigarettes Second hand tobacco smoke exposure: Yes Smoking end date: 10/03/81 Additional smoking assessment comments: Up to 3 packs a day, quit in 1981. Alcohol intake: current Drinks per week: 2 Alcohol use details: No alcohol since 2013. Substance use: never Substance use type: does not use Do You Feel Safe in your Home?: Yes Lack of Transportation: No Lack of Food: Never True Current Housing: I Have Housing Concerned About Future Housing: No Difficulty Paying Gas/Electric Bills: No Difficulty Paying for Meds: No Currently Unemployed: No Education: High School Diploma/GED Difficulty w/ Childcare or Family Care: No Living arrangements: with family Additional living arrangements comments: Resides in [facility], 40+ years. Additional occupation/education comments: Retired. 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 Gender identity (if verbalized by the patient): Male Spiritual care concerns: No Meds Home Medications and Allergies Home Medications ?Medication ?Instructions ?Recorded ?Confirmed ?Type rivaroxaban 20 mg tablet (Xarelto) 20 mg PO DAILY 06/30/22 11/29/24 History aspirin 81 mg tablet 81 mg PO DAILY 08/03/22 11/29/24 History cholecalciferol (vitamin D3) 50 50 mcg PO DAILY 05/17/23 11/29/24 History mcg (2,000 unit) capsule (Vitamin D3) vitamin B complex 1 cap PO DAILY 05/17/23 11/29/24 History omeprazole 20 mg capsule,delayed 20 mg PO DAILY #90 caps 08/30/23 11/29/24 Rx release quercetin 1 tab-cap PO BID 12/06/23 11/29/24 History atorvastatin 10 mg tablet See Rx Instructions .Route 02/13/24 11/29/24 Rx .COMPLEX #45 tabs spironolactone 25 mg tablet 12.5 mg PO DAILY 05/16/24 11/29/24 History allopurinol 300 mg tablet 150 mg (1/2 x 300 mg) PO DAILY #90 07/08/24 11/29/24 Rx tabs empagliflozin 5 mg-metformin ER 1 tablet PO DAILY #90 ea 07/24/24 11/29/24 Rx 1,000 mg tablet,extended release 24 hr (Synjardy XR) carvedilol 12.5 mg tablet See Rx Instructions .Route 07/25/24 11/29/24 Rx .COMPLEX #180 tabs folic acid 1 mg tablet See Rx Instructions .Route 08/20/24 11/29/24 Rx .COMPLEX #90 tabs tamsulosin 0.4 mg capsule See Rx Instructions .Route 08/20/24 11/29/24 Rx .COMPLEX #90 caps furosemide 40 mg tablet See Rx Instructions .Route .qod 09/21/24 11/29/24 Rx #90 tabs losartan 50 mg tablet 75 mg PO DAILY 09/21/24 11/29/24 History potassium citrate 10 mEq (1,080 10 meq PO .qod #90 tabs 09/21/24 11/29/24 Rx mg) tablet,extended release sulfamethoxazole 800 1 tablet PO Q12H #20 tabs 11/21/24 11/29/24 Rx mg-trimethoprim 160 mg tablet (Bactrim DS) nystatin-triamcinolone 100,000 1 applic topical TID PRN rash 11/22/24 11/22/24 History unit/g-0.1 % topical cream Allergies Allergy/AdvReac Type Severity Reaction Status Date / Time KATLYN Inhibitors AdvReac Intermediate Cough Verified 11/29/24 13:44 Vital Signs Vital Signs - 24 hr 11/29/24 13:48 Temperature 97.5 F L Pulse Rate 66 Respiratory Rate 18 Blood Pressure 137/62 Pulse Oximetry 97 Oxygen Delivery Room Air Exam Const: General: cooperative and healthy appearing Resp: Effort & Inspection: normal respiratory effort and able to speak in complete sentences Auscultation: clear to auscultation bilaterally Cardio: Rate: regular rate Rhythm: regular rhythm GI: Inspection: normal to inspection GI Palp: No No hepatosplenomegaly present Auscultation: normal bowel sounds Rectal Exam: deferred Skin: General skin exam: normal color Psych: Appearance: grossly normal Mental Status: mental status grossly normal Assessment and Plan Assessment and plan (1) Iron deficiency anemia: Code(s): D50.9 - Iron deficiency anemia, unspecified Status: Acute Assessment and Plan: The patient is deemed a good candidate for the procedure. Consent signed. Will proceed. (2) Intermittent dysphagia: Code(s): R13.19 - Other dysphagia Status: Acute Assessment and Plan: will check carefully for the presence of a Schatzki ring, and, if present will proceed with dilatation.
--- NOTE | 2024-11-29 16:14 | SUR.OPER ---
EGD ended 160 colonoscopy started 161
[2024-11-29 16:32] VITALS: BP 116/60; PULSE 60; RESP 16; O2SAT 100
[2024-11-29 16:42] VITALS: BP 117/68; PULSE 64; RESP 18; O2SAT 100
[2024-11-29 16:52] VITALS: BP 121/75; PULSE 62; RESP 18; O2SAT 100
== END 2024-11-29 17:05 | disposition home or self-care (01) ==
PROVIDERS: PCP Internal Medicine; Referring Provider Nurse Practitioner Family; Visit Provider Internal Medicine Gastroenterology
PROC: 0DJ08ZZ Inspection of Upper Intestinal Tract, Via Natural or Artificial Opening Endoscopic (ICD-10-PCS; CPT 45378; principal; 2024-11-29 14:15)
DX: D50.9 Iron deficiency anemia, unspecified (principal); K57.30 Diverticulosis of large intestine without perforation or abscess without bleeding; K64.8 Other hemorrhoids; K22.2 Esophageal obstruction; K31.7 Polyp of stomach and duodenum; Z87.891 Personal history of nicotine dependence; Z79.84 Long term (current) use of oral hypoglycemic drugs
CPT/HCPCS: 45378; 43239; 43249; 82948; 88305; C1726; J2003; J2371; J2704; J7120

== ENCOUNTER 2024-12-05 14:46 | Outpatient (CLI) | payer MEDICARE, SELFPAY ==
[2024-12-05 15:20] LABS: Hematocrit 41.5 % (42.0-52.0); Hemoglobin 13.3 g/dL (14.0-18.0); Mean Corpuscular Hemoglobin 30.9 pg (26-34); Mean Corpuscular Volume 96.5 fl (80-100); Mean Platelet Volume 10.6 fl (7.4-10.4); Platelet Count Result 253 k/mm3 (150-375); Red Cell Distribution Width 17.2 % (11.5-14.5); White Blood Count 6.8 K/mm3 (4.5-10.0)
[2024-12-05 16:12] LABS: Iron 62 ug/dL (49-181)
[2024-12-05 16:23] LABS: Percent Iron Saturation 14 % (20-50)
--- OUTSIDE RECORDS SUMMARY | 2024-12-05 16:33 | XMS_ITS | Encounter Summary ---
Author Organization [facility] Address [address] [place] [address] Care Team Providers Care Manager Business Systems Name Role Phone Say Low MD Primary Care Provider [phone] Unknown, Notinfile Primary Care Provider Unavail able Say Low MD Primary Care Provider [phone] Encounter Details Date Type Department Care Team (Late st Contact Info) Description 09/07/2016 Orders Only [facility] Provider, MD Giovanni [address] [place] [id number] Social History Tobacco Use Types Packs/Day Years Used Date Smoking Tobacco: Former Cigarettes Q uit: 10/03/1982 Alcohol Use Standard Drinks/Week Comments No 0 (1 standard drink = 0.6 oz pur e alcohol) Sex and Gender Information Value Date Recorded Sex Assigned at Not on file Legal Sex Male 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
--- OUTSIDE RECORDS SUMMARY | 2024-12-05 16:33 | XMS_ITS | Referral Summary ---
Author Organization [facility] Address [address] [place] [address] Care Team Providers Care Guest History Clerk Name Role Phone Edgar Geiger MD Unavailable Unavailable Say Low MD Primary Care Provider [phone] Source Comments [facility],non-owned Affiliates and Associated Physician Practices is amultiple site organization consisting of ambulatory clinics and hospital sitesin [place], [place], [place] and [place]. This disclosure is being madepursuant to the Care Everywhere program and may not contain all information available regarding this patient. Last updated 18.[facility] Allergies No known active allergies Medications * [...] daily with morning and evening meal. Active Gilliam-3 Fatty Acids (TH OMEGA-3 FISH OIL) 1000 [...] of Treatment Not on file Care Teams Guest History Clerk Relationship Specialty Start Date End Date Say Low MD [address] [place] [address] PCP - General Internal Medicine 08/14/12 Edgar Geiger MD Cardiovascular Disease 08/14/12
--- OUTSIDE RECORDS SUMMARY | 2024-12-05 16:33 | XMS_ITS | Encounter Summary ---
Author Organization [facility] Address [address] [place] [address] Care Team Providers Care Solar Business Developer Name Role Phone Edgar Geiger MD Unavailable Unavailable Say Low MD Primary Care Provider [phone] Encounter Details Date Type Department Care Team (Late st Contact Info) Description 01/12/2018 Lab Requisition [facility] [address] [place] [id number] Kumar Reno MD RETIRED Social History Tobacco [...] AM CDT) Case Report Dermatopathology Report Case: [id number] Authorizing Provider: Kumar Reno MD Collected: 01/11/2018 [...] specimen consists of a shave biopsy measuring [id number]. Jar 0. 6:41 PM T DERMATOPATHOLOGY LABORATORY [...] characteristic determined by the Dermatopathology Laboratory at [facility]. These tests need not be, and therefore are not, approved by the [place] Food and Drug Administration. The tests are used for clinical purposes. Billing Codes Specimen Charges Stain Charges 50000 1 8 6:41 PM CDT DERMATOPATHOLOGY LABORATORY Embedded Images 8 6:41 PM T DERMATOPATHOLOGY LABORATORY Pathology/Cytolog y TISSUE SPECIMEN FROM SKIN / Unknown 01/11/2018 01/12/2018 11:39 AM CDT Kumar Reno MD LAB - PATHOLOGY/CYTO LOGY ORDERABLES DERMATOPATHOLOGY LABORATORY [facility] - Department of Dermatology [address] [place] [address] 5th Floor Lab [address] [phone] documented in this encounter Visit Diagnoses Not on filedocumented in this encounter Care Teams Solar Business Developer Relationship Specialty Start Date End Date Say Low MD [address] [place] [address] PCP - General Internal Medicine 08/14/12 Edgar Geiger MD Cardiovascular Disease 08/14/12 documented as of this encounter
--- OUTSIDE RECORDS SUMMARY | 2024-12-05 16:33 | XMS_ITS | Encounter Summary ---
Author Organization [facility] Address [address] [place] [address] Care Team Providers Care Dry Cleaning Counter Clerk Name Role Phone Say Low MD Primary Care Provider [phone] Encounter Details Date Type Department Care Team (Late st Contact Info) Description 02/17/2017 Orders Only [facility] ProviderGiovanni MD [address] [place] [address] Social History Tobacco Use Types Packs/Day Years Used Date Smoking Tobacco: Former Cigarettes Q uit: 10/03/1982 Alcohol Use Standard Drinks/Week Comments No 0 (1 standard drink = 0.6 oz pur e alcohol) Sex and Gender Information Value Date Recorded Sex Assigned at Not on file Legal 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
--- OUTSIDE RECORDS SUMMARY | 2024-12-05 16:33 | XMS_ITS | Encounter Summary ---
Author Organization [facility] Address [address] [place] [address] Care Team Providers Care Physical Education Professor Name Role Phone Say Low MD Primary Care Provider [phone] Unknown, Notinfile Primary Care Provider Unavail able Say Low MD Primary Care Provider [phone] Encounter Details Date Type Department Care Team (Late st Contact Info) Description 10/01/2016 Orders Only Arrhythmia Center Provider, MD Giovanni 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
--- OUTSIDE RECORDS SUMMARY | 2024-12-05 16:33 | XMS_ITS | Referral Summary ---
Author Organization [facility] Address [address] [place] [address] Care Team Providers Care Customer Account Executive Name Role Phone Say Low MD Primary Care Provider [phone] Encounters Date Type Department Care Team Description 11/26/2024 12:00 PM SQUAD BOSS Ancillary Procedure [facility] [address] [address] Pacemaker (Primary Dx); NICM (nonischemic cardiomyopathy) (HCC) 11/14/2024 Telephone [facility] Cardiology [address] [facility] [address] [place] [address] Shiva Anne MD 09/12/2024 11:15 AM SQUAD BOSS Ancillary Procedure [facility] [address] [address] NICM (nonischemic cardiomyopathy) ([facility]) (Primary Dx); AV node dysfunction; Pacemaker from Last 3 Months Allergies No [...] (Xarelto) 20 mg tabletIndication s:Paroxysmal atrial fibrillation (HCC) Take 1 tablet (20 mg total) by mouth daily 90 tablet 3 4 Active losartan (COZAAR) 50 mg tablet Take 1.5 tablets (75 mg total) by mouth daily 45 tablet 11 4 09/05/20 25 Active Active Problems Problem Noted Date Diagnosed Date CHB (complete heart block) 07/19/2024 Typical atrial flutter 07/19/2024 Assessment & Plan (07/19/2024 2:15 PM [...] checks when necessary. The patient has a VTF7NQ2-[id number] score of 4 (annualized risk of stroke 4%). I have therefore recommended continued anticoagulation for thromboprophylaxis. NICM (nonischemic cardiomyopathy) 07/19/2024 CAD S/P percutaneous coronary angioplasty 2020 Coronary artery disease (CAD) excluded 1 Hx of CABG 02/22/2020 Coronary artery disease invo lving coronary bypass graft of [place] heart with angina pectoris 02/22/2020 Assessment & Plan (02/22/2020 6:54 PM [...] at that time. I did check, the [employer] wraps are are coming to [facility]. So I think he should be able to get his MRI done. Preoperative cardiovascular examination 05/01/20 19 Assessment & Plan (05/01/2019 11:30 AM CDT): Due to the silent ischemia, CABG in 2003, he needs an aggressive evaluation. Nephrolithiasis 01/04/2019 Overview (01/04/2019): Added automatically from request for surgery [id number] Pacemaker 07/04/2017 Overview (07/04/2017): [place] [employer] DDD Essentio L111 pacemaker implanted on 07/04/17 [...] HF symptoms attributed to substantial ventricular pacing, EXPLOSIVE ORDNANCE DISPOSAL MANAGER with BiV pacing is recommended to [...] 6:52 PM CDT): Status post pacemaker placement, [employer] [place] [employer] device for second-degree AV block [...] on file Legal Sex Male 8:04 PM SQUAD BOSS Gender Identity Male 07/10/2021 8:31 AM CDT Sexual Orientation Straight 06/12/2021 8: 44 AM CDT Last Filed Vital Signs Vital Sign Reading Time Taken Comments Blood Pressure 114/58 08/15/2024 5:50 PM SQUAD BOSS Pulse 81 08/15/2024 5:50 PM SQUAD BOSS Temperature 37.1 C (98.8 F) 08/15/2024 1:03 PM SQUAD BOSS Respiratory Rate 26 08/15/2024 5:50 PM SQUAD BOSS Oxygen Saturation 93% 08/15/2024 5:50 PM SQUAD BOSS Inhaled Oxygen Concentration - - Weight 101.1 kg (222 lb 14.2 oz) 08/15/2024 1:03 PM SQUAD BOSS Height 172.7 cm (5' 8 ) 08/15/2024 1:03 PM SQUAD BOSS Body Mass Index 33.89 08/15/2024 1:03 PM SQUAD BOSS Plan of Treatment Not on file Medical Devices Implanted Type Area Fellmongery Worker Device Identifier Shelf Expiration Date Model / Serial / Lot [employer] Tabby Acuity X4 3.9-5.2fr 2.6fr 86cm Otw Quadripolar Long Straight 4671 - [id number] - [id number] Implanted:Qty: 1 on 08/15/2024 by Wayne Davis MD at [facility] Lead [employer] Tabby [id number] 04/28/2026 [id number] / [id number] / Pacemaker-07/04 Implanted:11/2016 (Quantity not on file) Pacemaker Chest Wall [employer] [place] [employer] Tabby Pacemaker Single Chamber Mica Plate Layer P Visionist 0.75x4.45x6.17 cm U228 - [id number] - [id number] Implanted:Qty: 1 on 08/15/2024 by Wayne Davis MD at [facility] Pacemaker [employer] Tabby [id number] 06/08/2026 [id number] / [id number] / [employer]by [id number] Synergy Xd Monorail 3.5mm 32mm 144cm Delivery System 1 Access - S0 - [id number] Implanted:Qty: 1 on 07/13/2021 by Troy Shipley MD at [facility] Stent [employer] Tabby 03/11/2023 [id number] / 0 / [id number] Description:LAD Explanted Type Area Fellmongery Worker Device Identifier Shelf Expiration Date Model / Serial / Lot [employer] [id number] Inlay [place] 6fr 28cm Pusher Fluoro Marker Atraumatic Insertion Latex Free - [id number] Implanted:Qty: 1 on 01/17/2019 by Concetta Thurston MD at [facility] Explanted:Qty: 1 on 01/31/2019 by Elvin Carrillo NP Stent Left: Ureter [employer] [id number] 07/13/2023 [id number] / / [id number] Procedures Procedure Name Priority Date/Time Associated Diagnosis Comments DEVICE CHECK - REMOTE Routine 11/26/2024 2:37 PM SQUAD BOSS NICM (nonischemic cardiomyopathy) ([facility]) DEVICE CHECK - IN OFFICE Routine 09/12/2024 10:59 AM SQUAD BOSS AV node dysfunction CT ABDOMEN PELVIS WO CONTRAST Schedule Routine, Read Routine (OP Routine) 09/14/2022 9:43 AM SQUAD BOSS Nephrolithiasis from Last 3 Months or Most Recently Relevant to Health Maintenance Results * DEVICE CHECK - REMOTE (11/26/2024 2:37 PM SQUAD BOSS) Anatomical Region Laterality Modality Other Narrative 11/28/2024 3:49 PM SQUAD BOSS Table formatting from the original result was not included. BiV PACEMAKER CHECK (REMOTE) Patient ID: Drew Newman is a 84 y.o. male. This patient received a [place] [employer] BiV Pacemaker. They had a routine [...] to SOFI Episodes last 60 days/Comments: AF [place] 0 % No new ventricular NORMAL DEVICE FUNCTION PROGRAMMED MEDICATIONS: Anti-coagulant(s): Aspirin 81 mg, Xarelto 20 mg daily Anti-arrhythmic(s): Coreg 12.5 mg twice a day PLAN: 1) [place] [employer] BiV Pacemaker evaluation 2) [place] [employer] remote transmission scheduled in 3 months. 3) Programming appropriate for device settings Gisela Butler RN us Wayne Davis MD CV CARDIAC SERVICES PRO CEDURES Final Result * DEVICE CHECK - IN OFFICE (09/12/2024 10:59 AM SQUAD BOSS) Anatomical Region Laterality Modality Other Narrative 09/15/2024 3:28 PM SQUAD BOSS Table formatting from the original result was not included. BiV PACEMAKER CHECK (IN OFFICE) Patient ID: Drew Newman is a 84 y.o. male. This patient received a [place] [employer] BiV Pacemaker. They had a routine [...] to SOFI Episodes last 90 days/Comments: AF [place] 0 %, longest duration 3 minutes and 35 seconds on 08/22. Ventricular rates were controlled. No new ventricular events. NORMAL DEVICE FUNCTION PROGRAMMED MEDICATIONS: Anti-coagulant(s): Aspirin 81 mg, Xarelto 20 mg daily Anti-arrhythmic(s): Coreg 12.5 mg twice a day PLAN: 1) normal [place] [employer] BiV Pacemaker evaluation 2) [place] [employer] remote transmission scheduled in 3 months. 3) Programming appropriate for device settings 4) left subclavian incision well healed, remaining Dermabond removed without incident. Gisela Butler RN Wayne Davis MD CV CARDIAC SERVICES PRO CEDURES Final Result * CT Abdomen Pelvis WO Contrast (09/14/2022 9:43 AM SQUAD BOSS) Anatomical Region Laterality Modality Body N/A Computed Tomogra phy 09/15/2022 10:0 0 AM SQUAD BOSS Narrative 09/15/2022 10:11 AM SQUAD BOSS EXAM DESCRIPTION: CT ABDOMEN PELVIS WO CONTRAST [...] Findings Committee. J Am Walter Radiol. 2017 May;14(8):9342-1754. THIS IS AN ELECTRONICALLY VERIFIED FINAL REPORT 09/15/2022 10:11 AM - Electronically signed by Ko Haro M.D. AG: JAMES Report ID: [id number] Reading Location: [id number] Procedure Note Ko Haro MD - 09/15/2022 [...] Findings Committee. J Am Walter Radiol. 2017 May;14(8):8778-0647. THIS IS AN ELECTRONICALLY VERIFIED FINAL REPORT 09/15/2022 10:11 AM - Electronically signed by Ko Haro M.D. AG: JAMES Report ID: [id number] Reading Location: [id number] Elvin Isaac Gerardo HAND STRIPPER IMG CT PROCEDURES Final Result from Last 3 Months or Most Recently Relevant to Health Maintenance Insurance MEDICARE [facility] MEDICARE [facility] MEDICARE BLUE CROSS MEDICARE SUPPLEMENT Advance Directives For more information, please contact: [phone] Documents on File Type Date Recorded Patient Combatant Diver Officer Expl anation ADVANCE DIRECTIVE 07/04/2017 Advance Di rective Checklist * Full Code (Latest Code Status on File) Date Activated Date Inactivated Comments 07/13/2021 3:49 PM 07/14/2021 2:07 PM Care Teams Customer Account Executive Relationship Specialty Start Date End Date Say Low MD [address] [facility] [address] [place] [address] PCP - General 02/15/17
--- OUTSIDE RECORDS SUMMARY | 2024-12-05 16:33 | XMS_ITS | Clinical Summary ---
Author Organization [facility] Address [address] [place] [address] Care Team Providers Care Bias Binding Cutter Name Role Phone Say Low MD Primary Care Provider [phone] Allergies No known active allergies Medications tamsulosin [...] checks when necessary. The patient has a [id number] score of 4 (annualized risk of stroke 4%). I have therefore recommended continued anticoagulation for thromboprophylaxis. NICM (nonischemic cardiomyopathy) 07/19/2024 CAD S/P percutaneous coronary angioplasty 2020 Coronary artery disease (CAD) excluded 1 Hx of CABG 02/22/2020 Coronary artery disease invo lving coronary bypass graft of [place] heart with angina pectoris 02/22/2020 Assessment & [...] at that time. I did check, the [employer] wraps are are coming to [facility]. So I think he should be able to get his MRI done. Preoperative cardiovascular examination 05/01/20 19 Assessment & Plan (05/01/2019 11:30 AM CDT): Due to the silent ischemia, CABG in 2003, he needs an aggressive evaluation. Nephrolithiasis 01/04/2019 Overview (01/04/2019): Added automatically from request for surgery [id number] Pacemaker 07/04/2017 Overview (07/04/2017): [place] [employer] DDD Essentio L111 pacemaker implanted on [...] the appropriate arrangements. From: Keon GILLESPIE, Gabriel JONES, Bernard Francisco et al. 2022 HRS/APHRS/LAHRS guideline on cardiac physiologic pacing for the avoidance and mitigation of heart failure. Heart Rhythm 2022;20:e17-e91. Class I: In patients with a CIED with a decline in LV function or worsening of HF symptoms attributed to substantial ventricular pacing, DECISION UNIT RN with BiV pacing is recommended to improve [...] 6:52 PM CDT): Status post pacemaker placement, [employer] [employer] device for second-degree AV block Normal [...] Department Care Team Description 11/26/2024 12:00 PM ANALYZER SALES Ancillary Procedure Arrhythmia Center [address] [facility] [address] [place] [address] Pacemaker (Primary Dx); NICM (nonischemic cardiomyopathy) (HCC) 11/14/2024 Telephone [facility] Cardiology [address] [facility] [address] [place] [address] Shiva Anne MD 09/12/2024 11:15 AM ANALYZER SALES Ancillary Procedure Arrhythmia Center [address] [facility] [address] [place] [address] NICM (nonischemic cardiomyopathy) ([facility]) (Primary Dx); AV node dysfunction; Pacemaker from Last 3 Months Surgical History [...] Hypertension Diabetes mellitus (HCC) CHF (congestive heart failure) (HCC) COPD (chronic obstructive pu lmonary disease) (HCC) Chronic kidney disease Kidney stone Urolithiasis Arthritis Congestive heart failure (CHF) (HCC) Family History Medical History Relation Name [...] on file Legal Sex Male 8:04 PM ANALYZER SALES Gender Identity Male 07/10/2021 8:31 AM CDT Sexual Orientation Straight 06/12/2021 8: 44 AM CDT Obstetrics History Last Filed Vital Signs Vital Sign Reading Time Taken Comments Blood Pressure 114/58 08/15/2024 5:50 PM ANALYZER SALES Pulse 81 08/15/2024 5:50 PM ANALYZER SALES Temperature 37.1 C (98.8 F) 08/15/2024 1:03 PM ANALYZER SALES Respiratory Rate 26 08/15/2024 5:50 PM ANALYZER SALES Oxygen Saturation 93% 08/15/2024 5:50 PM ANALYZER SALES Inhaled Oxygen Concentration - - Weight 101.1 kg (222 lb 14.2 oz) 08/15/2024 1:03 PM ANALYZER SALES Height 172.7 cm (5' 8 ) 08/15/2024 1:03 PM ANALYZER SALES Body Mass Index 33.89 08/15/2024 1:03 PM ANALYZER SALES Plan of Treatment Health Maintenance Due Date [...] 01/04/2019, 02/11/2017 Medical Devices Implanted Type Area Aperture Mask Etcher Device Identifier Shelf Expiration Date Model / Serial / Lot [employer] Tabby Acuity X4 3.9-5.2fr 2.6fr 86cm Otw Quadripolar Long Straight 4671 - [id number] - [id number] Implanted:Qty: 1 on 08/15/2024 by Wayne Davis MD at [facility] Lead [employer] Tabby [id number] 04/28/2026 [id number] / [id number] / Pacemaker-07/04 Implanted:11/2016 (Quantity not on file) Pacemaker Chest Wall [employer] [employer] [place] [employer] Tabby Pacemaker Single Chamber Celebrity Manager P Visionist 0.75x4.45x6.17 cm U228 - [id number] - [id number] Implanted:Qty: 1 on 08/15/2024 by Wayne Davis MD at [facility] Pacemaker [employer] Tabby [id number] 06/08/2026 [id number] / [id number] / [employer] [id number] Synergy Xd Monorail 3.5mm 32mm 144cm Delivery System 1 Access - S0 - [id number] Implanted:Qty: 1 on 07/13/2021 by Troy Shipley MD at [facility] Stent [employer] Tabby 03/11/2023 [id number] / 0 / [id number] Description:LAD Explanted Type Area Aperture Mask Etcher Device Identifier Shelf Expiration Date Model / Serial / Lot [employer] [id number] Inlay [place] 6fr 28cm Pusher Fluoro Marker Atraumatic Insertion Latex Free - [id number] Implanted:Qty: 1 on 01/17/2019 by Concetta Thurston MD at [facility] Explanted:Qty: 1 on 01/31/2019 by Elvin Carrillo NP Stent Left: Ureter [employer] [id number] 07/13/2023 [id number] / / [id number] Procedures Procedure Name Priority Date/Time Associated Diagnosis Comments DEVICE CHECK - REMOTE Routine 11/26/2024 2:37 PM ANALYZER SALES NICM (nonischemic cardiomyopathy) (HCC) DEVICE CHECK - IN OFFICE Routine 09/12/2024 10:59 AM ANALYZER SALES AV node dysfunction CT ABDOMEN PELVIS WO CONTRAST Schedule Routine, Read Routine (OP Routine) 09/14/2022 9:43 AM ANALYZER SALES Nephrolithiasis from Last 3 Months or Most Recently Relevant to Health Maintenance Results * DEVICE CHECK - REMOTE (11/26/2024 2:37 PM ANALYZER SALES) Anatomical Region Laterality Modality Other Narrative 11/28/2024 3:49 PM ANALYZER SALES Table formatting from the original result was not included. BiV PACEMAKER CHECK (REMOTE) Patient ID: Drew Newman is a 84 y.o. male. This patient received a [place] [employer] BiV Pacemaker. They had a routine [...] to SOFI Episodes last 60 days/Comments: AF [place] 0 % No new ventricular NORMAL DEVICE FUNCTION PROGRAMMED MEDICATIONS: Anti-coagulant(s): Aspirin 81 mg, Xarelto 20 mg daily Anti-arrhythmic(s): Coreg 12.5 mg twice a day PLAN: 1) [place] [employer] BiV Pacemaker evaluation 2) [place] remote transmission scheduled in 3 months. 3) Programming appropriate for device settings Gisela Butler RN us Wayne Davis MD CV CARDIAC SERVICES PRO CEDURES Final Result * DEVICE CHECK - IN OFFICE (09/12/2024 10:59 AM ANALYZER SALES) Anatomical Region Laterality Modality Other Narrative 09/15/2024 3:28 PM ANALYZER SALES Table formatting from the original result was not included. BiV PACEMAKER CHECK (IN OFFICE) Patient ID: Drew Newman is a 84 y.o. male. This patient received a [place] [employer] BiV Pacemaker. They had a routine [...] to SOFI Episodes last 90 days/Comments: AF [place] 0 %, longest duration 3 minutes and 35 seconds on 08/22. Ventricular rates were controlled. No new ventricular events. NORMAL DEVICE FUNCTION PROGRAMMED MEDICATIONS: Anti-coagulant(s): Aspirin 81 mg, Xarelto 20 mg daily Anti-arrhythmic(s): Coreg 12.5 mg twice a day PLAN: 1) normal [place] [employer] BiV Pacemaker evaluation 2) [place] [employer] remote transmission scheduled in 3 months. 3) Programming appropriate for device settings 4) left subclavian incision well healed, remaining Dermabond removed without incident. Gisela Butler RN us Wayne Davis MD CV CARDIAC SERVICES PRO CEDURES Final Result * CT Abdomen Pelvis WO Contrast (09/14/2022 9:43 AM ANALYZER SALES) Anatomical Region Laterality Modality Body N/A Computed Tomogra phy 09/15/2022 10:0 0 AM ANALYZER SALES Narrative 09/15/2022 10:11 AM ANALYZER SALES EXAM DESCRIPTION: CT ABDOMEN PELVIS WO CONTRAST [...] Findings Committee. J Am Walter Radiol. 2017 May;14(8):1190-7958. THIS IS AN ELECTRONICALLY VERIFIED FINAL REPORT 09/15/2022 10:11 AM - Electronically signed by Ko Haro M.D. AG: JAMES Report ID: [id number] Reading Location: [id number] Procedure Note Ko Haro MD - 09/15/2022 [...] Findings Committee. J Am Walter Radiol. 2017 May;14(8):5905-1131. THIS IS AN ELECTRONICALLY VERIFIED FINAL REPORT 09/15/2022 10:11 AM - Electronically signed by Ko Haro M.D. AG: JAMES Report ID: [id number] Reading Location: [id number] Elvin Carrillo NP IMG CT PROCEDURES Final Result from Last 3 Months or Most Recently Relevant to Health Maintenance Insurance MEDICARE [facility] MEDICARE [facility] MEDICARE [facility] MEDICARE SUPPLEMENT Advance Directives For more information, please contact: [phone] Documents on File Type Date Recorded Patient Professional Services Specialist Expl anation ADVANCE DIRECTIVE 07/04/2017 Advance Di rective Checklist * Full Code (Latest Code Status on File) Date Activated Date Inactivated Comments 07/13/2021 3:49 PM 07/14/2021 2:07 PM Care Teams Bias Binding Cutter Relationship Specialty Start Date End Date Say Low MD [address] [place] [address] PCP - General 02/15/17
--- OUTSIDE RECORDS SUMMARY | 2024-12-05 16:33 | XMS_ITS | Encounter Summary ---
Author Organization [facility] Address [address] [facility] [address] [place] [address] Care Team Providers Care Pickup Driver Name Role Phone Say Low MD Primary Care Provider [phone] Unknown, Notinfile Primary Care Provider Unavail able Say Low MD Primary Care Provider [phone] Encounter Details Date Type Department Care Team (Late st Contact Info) Description 09/08/2016 Orders Only Arrhythmia Center Provider, MD Giovanni [address] [place] [id number] Social History Tobacco Use Types Packs/Day Years Used Date Smoking Tobacco: Former Cigarettes Q uit: 10/03/1982 Alcohol Use Standard Drinks/Week Comments No 0 (1 standard drink = 0.6 oz pur e alcohol) Sex and Gender Information Value Date Recorded Sex Assigned at Not on file Legal Sex Male 8:04 PM PACKAGE REINSPECTOR Gender Identity Male 07/10/2021 8:31 AM CDT [...] on filedocumented in this encounter Care Teams Pickup Driver Relationship Specialty Start Date End Date Say Low MD [address] [place] [address] PCP - General 10/13/15 02/10/17 Unknown, Notinfile PCP - General 02/11/17 02/14/17 Say Low MD [address] [place] [address] PCP - General 02/15/17 documented as of this encounter
--- OUTSIDE RECORDS SUMMARY | 2024-12-05 16:33 | XMS_ITS | Patient Health Summary ---
Author Organization [facility] [employer] Address [address] [place] [address] Care Team Providers Care Hydroelectric Plant Structural Engineer Name Role Phone Edgar Geiger MD Unavailable Unavailable Say Low MD Primary Care Provider [phone] Note from [facility],non-owned Affiliates and Associated Physician Practices is amultiple site organization consisting of ambulatory clinics and hospital sitesin [place], [place], [place] and [place]. This disclosure is being madepursuant to the Care Everywhere program and may not contain all information available regarding this patient. Last updated 18.[facility] Allergies No known active allergies Medications * Be aware that medications may not be up to date on this document. Alwaysverify current medications with the patient. * omeprazole (PRILOSEC OTC) 20 MG tablet Take 20 mg by mouth daily before breakfast. * metFORMIN (GLUCOPHAGE) 1000 MG tablet Take 1,000 mg by mouth 2 times daily with morning and evening meal. * [place]-3 Fatty Acids (TH OMEGA-3 FISH OIL) 1000 [...] is included. Case Report Dermatopathology Report Case: [id number] Authorizing Provider: Kumar Reno MD Collected: 01/27/2018 [...] scapula tip. The specimen consists of a 27y45e30es, 08h06r6on excision of skin. The specimen is serially sectioned and a client relations representative section is submitted in cassette 1. [...] purposes. Billing Codes Specimen Charges Stain Charges 64968 1 4:54 PM CDT DERMATOPATHOLOGY LABORATORY Embedded Images 4:54 PM CDT DERMATOPATHOLOGY LABORATORY Pathology/Cytolog y TISSUE SPECIMEN FROM SKIN / Unknown 01/27/2018 01/30/2018 11:34 AM CDT Kumar Reno MD LAB - PATHOLOGY/CYTO LOGY ORDERABLES DERMATOPATHOLOGY LABORATORY [facility] - Department of Dermatology [address] [place] [address] [address] [phone] * EKG 12-LEAD (08/06/2013) Only the most [...] : 1940 Sex: male Blood Pressure: 130/76 Rubbish Collection Supervisor: SHAHRZAD Chacon Ordering Physician: Dr. Low Time [...] ATRIAL/VENTRICULAR DILATION - MILD TO MODERATE Interpreting Inside Plant Supervisor: Edgar Geiger MD, [facility] Procedure Note Kala Montes De Oca - 02/07/2013 2:23 PM CDT TRANSTHORACIC ECHOCARDIOGRAM REPORT Name: Drew Pak Date of Test: 02/06/2013 Age: 72 y.o. : 1940 Sex: male Blood Pressure: 130/76 Rubbish Collection Supervisor: SHAHRZAD Chacon Ordering Physician: Dr. Low Time [...] ATRIAL/VENTRICULAR DILATION - MILD TO MODERATE Interpreting Inside Plant Supervisor: Edgar Geiger MD, [facility] Edgar Geiger MD ECHO ORDERABLES * XR TIBIA FIBULA RIGHT 2VW (11/27/2012 10:38 AM LOCKSTITCH ZIPPER SETTER) Only the most recent of5 resultswithin the time period is included. Anatomical Region Laterality Modality Lower Extremity Other Impressions 11/27/2012 2:14 PM LOCKSTITCH ZIPPER SETTER Impression: Status post ORIF of tibial pilon fracture, unchanged alignment. Report dictated by Elia Daugherty MD. I, Dr. DONALD ODOM M.D. have personally reviewed and interpreted this examination/study. This report was electronically signed by DONALD ODOM M.D. on 11/27/2012 2:14 PM . Narrative 11/27/2012 2:14 PM LOCKSTITCH ZIPPER SETTER Exam: Tibia and fibula, 2 views Comparison: [...] RIGHT 3VW OR MORE (11/27/2012 10:38 AM LOCKSTITCH ZIPPER SETTER) Only the most recent of6 resultswithin the time period is included. Anatomical Region Laterality Modality Lower Extremity Other Impressions 11/27/2012 2:14 PM LOCKSTITCH ZIPPER SETTER Impression: Status post ORIF of tibial pilon fracture, unchanged alignment. Report dictated by Elia Daugherty MD. I, Dr. DONALD ODOM M.D. have personally reviewed and interpreted this examination/study. This report was electronically signed by DONALD ODOM M.D. on 11/27/2012 2:14 PM . Narrative 11/27/2012 2:14 PM LOCKSTITCH ZIPPER SETTER Exam: Right ankle, 3 views Comparison: Right [...] ANKLE RIGHT WO CONTRAST (11/20/2012 1:31 PM LOCKSTITCH ZIPPER SETTER) Anatomical Region Laterality Modality Lower Extremity Other Impressions 11/21/2012 5:25 PM LOCKSTITCH ZIPPER SETTER IMPRESSION: 1. Status post ORIF of a multipart tibial pilon fracture with persistence of the fracture lines/gaps. 2. 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 Dr. DONALD Mendoza M.D. have personally reviewed and interpreted this examination/study. This report was electronically signed by DONALD ODOM M.D. on 11/21/2012 5:25 PM . Narrative 11/21/2012 5:25 PM LOCKSTITCH ZIPPER SETTER CT EXTREMITY OF THE RIGHT ANKLE, NONCONTRAST [...] 12-LEAD MAGNET (04/18/2012 2:30 PM CDT) Narrative [facility] - 04/18/2012 2:30 PM CDT A scan was deleted from the Results section by Yesi Cantu [[id number]] on 04/18/2012 at 2:30 PM (File: [id number]) Procedure Note Giovanni Donato MD - 12/18/2018 A scan was deleted from the Results section by Yesi Cantu [[id number]] on 04/18/2012 at2:30 PM (File:[id number]) Baltazar Waldrop MD ECG ORDERABLES [facility] * XR BONE LENGTH SCANOGRAM [...] Glucose, Fingerstick 114(H) 70 - 110 MG/DL [facility] Comment:PERFORMED BY: DAIJA SALGADO 04/07/2012 8:52 AM CDT 04/07/2012 9:13 AM CDT Pasha Juarez MD LAB - CHEMISTRY CHARISSE MCCRAY Performing Organization Address City/[facility]/ZIP Co de Phone Number [address] [phone] * LAB MICROBIOLOGY - HPF HISTORICAL (07/20/2011 6:53 AM CDT) 07/20/2011 6:53 AM CDT Narrative [facility] - 07/20/2011 6:53 AM CDT Pasha Juarez MD LAB - MICROBIOLOGY O RDERABLES [facility] Care Teams Hydroelectric Plant Structural Engineer Relationship Specialty Start Date End Date Say Low MD [address] [place] [phone] PCP - General Internal Medicine 08/14/12 Edgar Geiger MD Cardiovascular Disease 08/14/12
--- OUTSIDE RECORDS SUMMARY | 2024-12-05 16:33 | XMS_ITS | Clinical Summary ---
Author Organization [facility] [employer] [facility] Address [address] [place] [address] Phone Care Team Providers Care Marker Delivery Name Role Phone Say Low MD Primary Care Provider [phone] Allergies No known active allergies Medications Medication [...] at that time. I did check, the [employer] wraps are are coming to [facility]. So I think he should be able to get his MRI done. 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
--- OUTSIDE RECORDS SUMMARY | 2024-12-05 16:33 | XMS_ITS | Encounter Summary ---
Author Organization [facility] Address [address] [place] [address] Care Team Providers Care Director Of Product Management Name Role Phone Edgar Geiger MD Unavailable Unavailable Say Low MD Primary Care Provider Encounter Details Date Type Department Care Team (Late st Contact Info) Description 01/30/2018 Lab Requisition [facility] Care DermPath Lab [address] [place] [phone] Kumar Reno MD RETIRED Social History Tobacco [...] AM CDT) Case Report Dermatopathology Report Case: [id number] Authorizing Provider: Kumar Reno MD Collected: 01/27/2018 [...] scapula tip. The specimen consists of a [id number], 41j47q8dp excision of skin. The specimen is serially sectioned and a risk control representative section is submitted in cassette 1. [...] characteristic determined by the Dermatopathology Laboratory at [facility]. These tests need not be, and therefore are not, approved by the [place] Food and Drug Administration. The tests are used for clinical purposes. Billing Codes Specimen Charges Stain Charges 62100 1 4:54 PM CDT DERMATOPATHOLOGY LABORATORY Embedded Images 4:54 PM CDT DERMATOPATHOLOGY LABORATORY Pathology/Cytolog y TISSUE SPECIMEN FROM SKIN / Unknown 01/27/2018 01/30/2018 11:34 AM CDT Kumar Reno MD LAB - PATHOLOGY/CYTO LOGY ORDERABLES DERMATOPATHOLOGY LABORATORY [facility] - Department of Dermatology [address] [place] [address], 5th Floor Lab [address] [phone] documented in this encounter Visit Diagnoses Not on filedocumented in this encounter Care Teams Director Of Product Management Relationship Specialty Start Date End Date Say Low MD [address] [place] [address] PCP - General Internal Medicine 08/14/12 Edgar Geiger MD Cardiovascular Disease 08/14/12 documented as of this encounter
--- OUTSIDE RECORDS SUMMARY | 2024-12-05 16:33 | XMS_ITS | Clinical Summary ---
Author Organization [facility] [employer] Address [address] [facility] [address] Care Team Providers Care Weather Stripper Name Role Phone Edgar Geiger MD Unavailable Unavailable Say Low MD Primary Care Provider [phone] Source Comments [facility] [employer],non-owned Affiliates and Associated Physician Practices is amultiple site organization consisting of ambulatory clinics and hospital sitesin [place], [place], [place] and [place]. This disclosure is being madepursuant to the Care Everywhere program and may not contain all information available regarding this patient. Last updated 18.[facility] [employer] Allergies No known active allergies Medications * [...] daily with morning and evening meal. Active [place]-3 Fatty Acids (TH OMEGA-3 FISH OIL) 1000 [...] age to complete this topic Care Teams Weather Stripper Relationship Specialty Start Date End Date Say Low MD [address] [place] [address] PCP - General Internal Medicine 08/14/12 Edgar Geiger MD Cardiovascular Disease 08/14/12
== END 2024-12-05 14:47 | disposition home or self-care (01) ==
PROVIDERS: PCP Internal Medicine; Visit Provider Nurse Practitioner Family
DX: D50.9 Iron deficiency anemia, unspecified (principal)
CPT/HCPCS: 36415; 82728; 83540; 83550; 85027

== ENCOUNTER 2024-12-28 06:02 | Outpatient (CLI) | payer MEDICARE, SELFPAY ==
--- OUTSIDE RECORDS SUMMARY | 2024-12-11 13:31 | XMS_ITS | Patient Health Summary ---
Author Organization [facility] [employer] Address [address] [facility] [address] Care Team Providers Care Medical Laboratory Technologist Name Role Phone Edgar Geiger MD Unavailable Unavailable Say Low MD Primary Care Provider [phone] Note from [facility],non-owned Affiliates and Associated Physician Practices is amultiple site organization consisting of ambulatory clinics and hospital sitesin [place], [place], [place] and [place]. This disclosure is being madepursuant to the Care Everywhere program and may not contain all information available regarding this patient. Last updated 18.[facility] Allergies No known active allergies Medications * Be aware that medications may not be up to date on this document. Alwaysverify current medications with the patient. * omeprazole (PRILOSEC OTC) 20 MG tablet Take 20 mg by mouth daily before breakfast. * metFORMIN (GLUCOPHAGE) 1000 MG tablet Take 1,000 mg by mouth 2 times daily with morning and evening meal. * [place]-3 Fatty Acids (TH OMEGA-3 FISH OIL) 1000 [...] is included. Case Report Dermatopathology Report Case: [id number] Authorizing Provider: Kumar Reno MD Collected: 01/27/2018 [...] scapula tip. The specimen consists of a 02q08q41ph, 09i09y1sj excision of skin. The specimen is serially sectioned and a provider service representative section is submitted in cassette 1. [...] characteristic determined by the Dermatopathology Laboratory at [facility]. These tests need not be, and therefore are not, approved by the [place] Food and Drug Administration. The tests are used for clinical purposes. Billing Codes Specimen Charges Stain Charges 77345 1 4:54 PM CDT DERMATOPATHOLOGY LABORATORY Embedded Images 4:54 PM CDT DERMATOPATHOLOGY LABORATORY Pathology/Cytolog y TISSUE SPECIMEN FROM SKIN / Unknown 01/27/2018 01/30/2018 11:34 AM CDT Kumar Reno MD LAB - PATHOLOGY/CYTO LOGY ORDERABLES DERMATOPATHOLOGY LABORATORY [facility] - Department of Dermatology [address] [place] [address] [address] [phone] * EKG 12-LEAD (08/06/2013) Only the most [...] : 1940 Sex: male Blood Pressure: 130/76 Pyridine Recovery Operator: SHAHRZAD Chacon Ordering Physician: Dr. Low Time [...] ATRIAL/VENTRICULAR DILATION - MILD TO MODERATE Interpreting Cut Off Saw Operator: Edgar Geiger MD, [facility] Procedure Note Kala Montes De Oca - 02/07/2013 2:23 PM CDT TRANSTHORACIC ECHOCARDIOGRAM REPORT Name: Drew Pak Date of Test: 02/06/2013 Age: 72 y.o. : 1940 Sex: male Blood Pressure: 130/76 Pyridine Recovery Operator: SHAHRZAD Chacon Ordering Physician: Dr. Low Time [...] ATRIAL/VENTRICULAR DILATION - MILD TO MODERATE Interpreting Cut Off Saw Operator: Edgar Geiger MD, [facility] Edgar Geiger MD ECHO ORDERABLES * XR TIBIA FIBULA RIGHT 2VW (11/27/2012 10:38 AM REGISTERED REPRESENTATIVE) Only the most recent of5 resultswithin the time period is included. Anatomical Region Laterality Modality Lower Extremity Other Impressions 11/27/2012 2:14 PM REGISTERED REPRESENTATIVE Impression: Status post ORIF of tibial pilon fracture, unchanged alignment. Report dictated by Elia Daugherty MD. I, Dr. DONALD ODOM M.D. have personally reviewed and interpreted this examination/study. This report was electronically signed by DONALD ODOM M.D. on 11/27/2012 2:14 PM . Narrative 11/27/2012 2:14 PM REGISTERED REPRESENTATIVE Exam: Tibia and fibula, 2 views Comparison: [...] RIGHT 3VW OR MORE (11/27/2012 10:38 AM REGISTERED REPRESENTATIVE) Only the most recent of6 resultswithin the time period is included. Anatomical Region Laterality Modality Lower Extremity Other Impressions 11/27/2012 2:14 PM REGISTERED REPRESENTATIVE Impression: Status post ORIF of tibial pilon fracture, unchanged alignment. Report dictated by Elia Daugherty MD. I, Dr. DONALD ODOM M.D. have personally reviewed and interpreted this examination/study. This report was electronically signed by DONALD ODOM M.D. on 11/27/2012 2:14 PM . Narrative 11/27/2012 2:14 PM REGISTERED REPRESENTATIVE Exam: Right ankle, 3 views Comparison: Right [...] ANKLE RIGHT WO CONTRAST (11/20/2012 1:31 PM REGISTERED REPRESENTATIVE) Anatomical Region Laterality Modality Lower Extremity Other Impressions 11/21/2012 5:25 PM REGISTERED REPRESENTATIVE IMPRESSION: 1. Status post ORIF of a multipart tibial pilon fracture with persistence of the fracture lines/gaps. 2. 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 Dr. DONALD Mendoza M.D. have personally reviewed and interpreted this examination/study. This report was electronically signed by DONALD ODOM M.D. on 11/21/2012 5:25 PM . Narrative 11/21/2012 5:[address] EXTREMITY OF THE RIGHT ANKLE, NONCONTRAST [...] 12-LEAD MAGNET (04/18/2012 2:30 PM CDT) Narrative [facility] - 04/18/2012 2:30 PM CDT A scan was deleted from the Results section by Yesi Cantu [[id number]] on 04/18/2012 at 2:30 PM (File: [id number]) Procedure Note Giovanni Donato MD - 12/18/2018 A scan was deleted from the Results section by Yesi Cantu [[id number]] on 04/18/2012 at2:30 PM (File:[id number]) Baltazar Waldrop MD ECG ORDERABLES [facility] * XR BONE LENGTH SCANOGRAM (04/18/2012 [...] Glucose, Fingerstick 114(H) 70 - 110 MG/DL [facility] Comment:PERFORMED BY: DAIJA SALGADO 04/07/2012 8:52 AM CDT 04/07/2012 9:13 AM CDT Pasha Juarez MD LAB - CHEMISTRY CHARISSE MCCRAY Performing Organization Address City/[facility]/ZIP Co de Phone Number [address] [phone] * LAB MICROBIOLOGY - HPF HISTORICAL (07/20/2011 6:53 AM CDT) 07/20/2011 6:53 AM CDT Narrative [facility] - 07/20/2011 6:53 AM CDT Pasha Juarez MD LAB - MICROBIOLOGY O RDERABLES [facility] Care Teams Medical Laboratory Technologist Relationship Specialty Start Date End Date Say Low MD [address] [place] [phone] PCP - General Internal Medicine 08/14/12 Edgar Geiger MD Cardiovascular Disease 08/14/12
--- OUTSIDE RECORDS SUMMARY | 2024-12-11 13:31 | XMS_ITS | Encounter Summary ---
Author Organization [facility] Address [address] [place] [address] Care Team Providers Care Childcare Attendant Name Role Phone Edgar Geiger MD Unavailable Unavailable Say Low MD Primary Care Provider [phone] Encounter Details Date Type Department Care Team (Late st Contact Info) Description 01/12/2018 Lab Requisition [facility] Care DermPath Lab [address] [place] [phone] Kumar Reno MD RETIRED Social History Tobacco [...] AM CDT) Case Report Dermatopathology Report Case: [id number] Authorizing Provider: Kumar Reno MD Collected: 01/11/2018 [...] specimen consists of a shave biopsy measuring 58v80n4qq. Jar 0. 6:41 PM T DERMATOPATHOLOGY LABORATORY [...] characteristic determined by the Dermatopathology Laboratory at [facility]. These tests need not be, and therefore are not, approved by the [place] Food and Drug Administration. The tests are used for clinical purposes. Billing Codes Specimen Charges Stain Charges 44256 1 8 6:41 PM CDT DERMATOPATHOLOGY LABORATORY Embedded Images 8 6:41 PM T DERMATOPATHOLOGY LABORATORY Pathology/Cytolog y TISSUE SPECIMEN FROM SKIN / Unknown 01/11/2018 01/12/2018 11:39 AM CDT Kumar Reno MD LAB - PATHOLOGY/CYTO LOGY ORDERABLES DERMATOPATHOLOGY LABORATORY [facility] - Department of Dermatology [address] [place] [address] 5th Floor Lab [address] [phone] documented in this encounter Visit Diagnoses Not on filedocumented in this encounter Care Teams Childcare Attendant Relationship Specialty Start Date End Date Say Low MD [address] [place] [address] PCP - General Internal Medicine 08/14/12 Edgar Geiger MD Cardiovascular Disease 08/14/12 documented as of this encounter
--- OUTSIDE RECORDS SUMMARY | 2024-12-11 13:31 | XMS_ITS | Encounter Summary ---
Author Organization [facility] [employer] Address [address] [facility] [facility] [address] [place] [address] Care Team Providers Care Animal Park Code Enforcement Officer Name Role Phone Say Low MD Primary Care Provider [phone] Unknown, Notinfile Primary Care Provider Unavail able Say Low MD Primary Care Provider [phone] Encounter Details Date Type Department Care Team (Late st Contact Info) Description 09/07/2016 Orders Only [facility] Provider, MD Giovanni [address] [place] [address] Social History Tobacco Use Types Packs/Day Years Used Date Smoking Tobacco: Former Cigarettes Q uit: 10/03/1982 Alcohol Use Standard Drinks/Week Comments No 0 (1 standard drink = 0.6 oz pur e alcohol) Sex and Gender Information Value Date Recorded Sex Assigned at Not on file 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
--- OUTSIDE RECORDS SUMMARY | 2024-12-11 13:31 | XMS_ITS | Encounter Summary ---
Author Organization [facility] Address [address] [place] [address] Care Team Providers Care Child Development Instructor Name Role Phone Edgar Geiger MD Unavailable Unavailable Say Low MD Primary Care Provider [phone] Encounter Details Date Type Department Care Team (Late st Contact Info) Description 01/30/2018 Lab Requisition [facility] Care DermPath Lab [address] [place] [phone] Kumar Reno MD RETIRED Social History Tobacco [...] AM CDT) Case Report Dermatopathology Report Case: [id number] Authorizing Provider: Kumar Reno MD Collected: 01/27/2018 [...] scapula tip. The specimen consists of a 19v10a05cn, 73p12v0is excision of skin. The specimen is serially sectioned and a medical device sales representative section is submitted in cassette 1. [...] determined by the Dermatopathology Laboratory at [facility]. These tests need not be, and therefore are not, approved by the [place] Food and Drug Administration. The tests are used for clinical purposes. Billing Codes Specimen Charges Stain Charges 94522 1 4:54 PM CDT DERMATOPATHOLOGY LABORATORY Embedded Images 4:54 PM CDT DERMATOPATHOLOGY LABORATORY Pathology/Cytolog y TISSUE SPECIMEN FROM SKIN / Unknown 01/27/2018 01/30/2018 11:34 AM CDT Kumar Reno MD LAB - PATHOLOGY/CYTO LOGY ORDERABLES DERMATOPATHOLOGY LABORATORY [facility] - Department of Dermatology [address] [place] [address], 5th Floor Lab [address] [phone] documented in this encounter Visit Diagnoses Not on filedocumented in this encounter Care Teams Child Development Instructor Relationship Specialty Start Date End Date Say Low MD [address] [place] [address] PCP - General Internal Medicine 08/14/12 Edgar Geiger MD Cardiovascular Disease 08/14/12 documented as of this encounter
--- OUTSIDE RECORDS SUMMARY | 2024-12-11 13:31 | XMS_ITS | Encounter Summary ---
Author Organization [facility] [employer] Address [address] [facility] [address] [place] [address] Care Team Providers Care Corporate Concierge Name Role Phone Say Low MD Primary Care Provider Unknown, Notinfile Primary Care Provider Unavail able Say Low MD Primary Care Provider [phone] Encounter Details Date Type Department Care Team (Late st Contact Info) Description 10/01/2016 Orders Only [facility]ia [facility] Provider, MD 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
--- OUTSIDE RECORDS SUMMARY | 2024-12-11 13:31 | XMS_ITS | Encounter Summary ---
Author Organization [facility] Address [address] [facility] [facility] [address] [place] [address] Care Team Providers Care Meterman Name Role Phone Say Low MD Primary Care Provider [phone] Unknown, Notinfile Primary Care Provider Unavail able Say Low MD Primary Care Provider [phone] Encounter Details Date Type Department Care Team (Late st Contact Info) Description 09/08/2016 Orders Only [facility] Provider, MD Giovanni [address] [place] [address] Social History Tobacco Use Types Packs/Day Years Used Date Smoking Tobacco: Former Cigarettes Q uit: 10/03/1982 Alcohol Use Standard Drinks/Week Comments No 0 (1 standard drink = 0.6 oz pur e alcohol) Sex and Gender Information Value Date Recorded Sex Assigned at Not on file 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
--- OUTSIDE RECORDS SUMMARY | 2024-12-11 13:31 | XMS_ITS | Encounter Summary ---
Author Organization [facility] Address [address] [facility] [address] [facility] [address] [place] [address] Care Team Providers Care Applications Project Manager Name Role Phone Say Low MD Primary Care Provider [phone] Encounter Details Date Type Department Care Team (Late st Contact Info) Description 02/17/2017 Orders Only [facility] ProviderGiovanni MD [address] [place] [address] Social History Tobacco Use Types Packs/Day Years Used Date Smoking Tobacco: Former Cigarettes Q uit: 10/03/1982 Alcohol Use Standard Drinks/Week Comments No 0 (1 standard drink = 0.6 oz pur e alcohol) Sex and Gender Information Value Date Recorded Sex Assigned at Not on file 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
--- OUTSIDE RECORDS SUMMARY | 2024-12-11 13:31 | XMS_ITS | Referral Summary ---
Author Organization [facility] Address [address] [place] [address] Care Team Providers Care Retail Customer Service Specialist Name Role Phone Edgar Geiger MD Unavailable Unavailable Say Low MD Primary Care Provider [phone] Source Comments [facility],non-owned Affiliates and Associated Physician Practices is amultiple site organization consisting of ambulatory clinics and hospital sitesin [place], [place], [place] and [place]. This disclosure is being madepursuant to the Care Everywhere program and may not contain all information available regarding this patient. Last updated 18.[facility] Allergies No known active allergies Medications * [...] daily with morning and evening meal. Active Gladwin-3 Fatty Acids (TH OMEGA-3 FISH OIL) 1000 [...] of Treatment Not on file Care Teams Retail Customer Service Specialist Relationship Specialty Start Date End Date Say Low MD [address] [place] [address] PCP - General Internal Medicine 08/14/12 Edgar Geiger MD Cardiovascular Disease 08/14/12
--- OUTSIDE RECORDS SUMMARY | 2024-12-11 13:31 | XMS_ITS | Clinical Summary ---
Author Organization [facility] Address [address] [facility] [place] [address] Care Team Providers Care Arts Manager Name Role Phone Edgar Geiger MD Unavailable Unavailable Say Low MD Primary Care Provider [phone] Source Comments [facility],non-owned Affiliates and Associated Physician Practices is amultiple site organization consisting of ambulatory clinics and hospital sitesin [place], [place], [place] and [place]. This disclosure is being madepursuant to the Care Everywhere program and may not contain all information available regarding this patient. Last updated 18.[facility] Allergies No known active allergies Medications * [...] daily with morning and evening meal. Active Sagola-3 Fatty Acids (TH OMEGA-3 FISH OIL) 1000 [...] age to complete this topic Care Teams Arts Manager Relationship Specialty Start Date End Date Say oLw MD [address] [place] [address] PCP - General Internal Medicine 08/14/12 Edgar Geiger MD Cardiovascular Disease 08/14/12
--- OUTSIDE RECORDS SUMMARY | 2024-12-11 13:32 | XMS_ITS | Clinical Summary ---
Author Organization [facility] Address [address] [place] [address] Phone Care Team Providers Care Slip Maker Name Role Phone Say Low MD Primary Care Provider [phone] Allergies No known active allergies Medications Medication [...] at that time. I did check, the [employer] wraps are are coming to [facility]. So I think he should be able to get his MRI done. 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
--- OUTSIDE RECORDS SUMMARY | 2024-12-11 13:32 | XMS_ITS | Encounter Summary ---
Author Organization [facility] Address [address] [place] [address] Care Team Providers Care Furniture Sales Associate Name Role Phone Say Low MD Primary Care Provider Encounter Details Date Type Department Care Team (Late st Contact Info) Description 12/06/[address] 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 Gender Identity Male 07/10/2021 8:31 AM CDT Sexual Orientation Straight 06/12/2021 8: 44 AM CDT documented as of this encounter Miscellaneous Notes * Telephone Encounter - Donna Hollis - 12/06/2024 4:25 PM CST Called again line was ringing and went silent Called the third time and line was silent E TECHNOLOGIST * Telephone Encounter - Donna Hollis - 12/06/2024 4:22 PM CST Attempted to reach this patient back unable to LVM line was busy will try again tomorrow E TECHNOLOGIST documented in this encounter Plan of Treatment Not on file documented as of this encounter Visit Diagnoses Not on filedocumented in this encounter Care Teams Furniture Sales Associate Relationship Specialty Start Date End Date Say Low MD [address] [place] [address] PCP - General 02/15/17 documented as of this encounter
--- OUTSIDE RECORDS SUMMARY | 2024-12-11 13:32 | XMS_ITS | Clinical Summary ---
Author Organization [facility] Address [address] [place] [address] Care Team Providers Care Incinerator Operator Name Role Phone Say Low MD Primary Care Provider [phone] Allergies No known active allergies Medications tamsulosin [...] checks when necessary. The patient has a AER6PE5-FQCx score of 4 (annualized risk of stroke 4%). I have therefore recommended continued anticoagulation for thromboprophylaxis. 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 I did check, the [employer] wraps are are coming to [facility]. So I think he should be able to get his MRI done. Preoperative cardiovascular examination 05/01/20 19 Assessment & Plan (05/01/2019 11:30 AM CDT): Due to the silent ischemia, CABG in 2003, he needs an aggressive evaluation. Nephrolithiasis 01/04/2019 Overview (01/04/2019): Added automatically from request for surgery [id number] Pacemaker 07/04/2017 Overview (07/04/2017): [employer] DDD Essentio L111 pacemaker implanted on [...] HF symptoms attributed to substantial ventricular pacing, SENIOR SHAREPOINT DEVELOPER with BiV pacing is recommended to improve [...] 6:52 PM CDT): Status post pacemaker placement, [employer] device for second-degree AV block Normal [...] Encounters Date Type Department Care Team Description 12/06/[address] [facility] Cardiology [address] [facility] [address] [id number] Shiva Anne MD 11/26/2024 12:00 PM METAL FABRICATOR WELDER Ancillary Procedure Arrhythmia Center [address] [facility] [address], [place] [address] Pacemaker (Primary Dx); NICM (nonischemic cardiomyopathy) (HCC) 11/14/[address] [facility] Cardiology [address] [facility] [address], [place] [address] Shiva Anne MD 09/12/2024 11:15 AM METAL FABRICATOR WELDER Ancillary Procedure Arrhythmia Center [address] [facility] [address], [place] [address] NICM (nonischemic cardiomyopathy) ([facility]) (Primary Dx); AV node dysfunction; Pacemaker from [...] file Legal Sex Male 8:04 PM METAL FABRICATOR WELDER Gender Identity Male 07/10/2021 8:31 AM CDT Sexual Orientation Straight 06/12/2021 8: 44 AM CDT Obstetrics History Last Filed Vital Signs Vital Sign Reading Time Taken Comments Blood Pressure 114/58 08/15/2024 5:50 PM METAL FABRICATOR WELDER Pulse 81 08/15/2024 5:50 PM METAL FABRICATOR WELDER Temperature 37.1 C (98.8 F) 08/15/2024 1:03 PM METAL FABRICATOR WELDER Respiratory Rate 26 08/15/2024 5:50 PM METAL FABRICATOR WELDER Oxygen Saturation 93% 08/15/2024 5:50 PM METAL FABRICATOR WELDER Inhaled Oxygen Concentration - - Weight 101.1 kg (222 lb 14.2 oz) 08/15/2024 1:03 PM METAL FABRICATOR WELDER Height 172.7 cm (5' 8 ) 08/15/2024 1:03 PM METAL FABRICATOR WELDER Body Mass Index 33.89 08/15/2024 1:03 PM METAL FABRICATOR WELDER Plan of Treatment Health Maintenance Due Date [...] 01/04/2019, 02/11/2017 Medical Devices Implanted Type Area Manager Land Device Identifier Shelf Expiration Date Model / Serial / Lot [employer] Tabby Acuity X4 3.9-5.2fr 2.6fr 86cm Otw Quadripolar Long Straight [id number] - [id number] - [id number] Implanted:Qty: 1 on 08/15/2024 by Wayne Davis MD at [facility] Lead [employer] Tabby [id number] 04/28/2026 [id number] / [id number] / Pacemaker-07/04 Implanted:11/2016 (Quantity not on file) Pacemaker Chest Wall [employer] Tabby Pacemaker Single Chamber Senior Office Assistant P Visionist 0.75x4.45x6.17 cm [id number] - [id number] - [id number] Implanted:Qty: 1 on 08/15/2024 by Wayne Davis MD at [facility] Pacemaker [employer] Tabby [id number] 06/08/2026 [id number] / [id number] / [employer] Tabby [id number] Synergy Xd Monorail 3.5mm 32mm 144cm Delivery System 1 Access - S0 - [id number] Implanted:Qty: 1 on 07/13/2021 by Troy Shipley MD at [facility] Stent [employer] Tabby 03/11/2023 [id number] / 0 / [id number] Description:LAD Explanted Type Area Manager Land Device Identifier Shelf Expiration Date Model / Serial / Lot [employer] [id number] Inlay Vance 6fr 28cm Pusher Fluoro Marker Atraumatic Insertion Latex Free - [id number] Implanted:Qty: 1 on 01/17/2019 by Concetta Thurston MD at [facility] Explanted:Qty: 1 on 01/31/2019 by Elvin Carrillo NP Stent Left: Ureter [employer] [id number] 07/13/2023 [id number] / / [id number] Procedures Procedure Name Priority Date/Time Associated Diagnosis Comments DEVICE CHECK - REMOTE Routine 11/26/2024 2:37 PM METAL FABRICATOR WELDER NICM (nonischemic cardiomyopathy) (HCC) DEVICE CHECK - IN OFFICE Routine 09/12/2024 10:59 AM METAL FABRICATOR WELDER AV node dysfunction CT ABDOMEN PELVIS WO CONTRAST Schedule Routine, Read Routine (OP Routine) 09/14/2022 9:43 AM METAL FABRICATOR WELDER Nephrolithiasis from Last 3 Months or Most Recently Relevant to Health Maintenance Results * DEVICE CHECK - REMOTE (11/26/2024 2:37 PM METAL FABRICATOR WELDER) Anatomical Region Laterality Modality Other Narrative 11/28/2024 3:49 PM METAL FABRICATOR WELDER Table formatting from the original result was not included. BiV PACEMAKER CHECK (REMOTE) Patient ID: Drew Newman is a 84 y.o. male. This patient received a [employer] BiV Pacemaker. They had a routine [...] to SOFI Episodes last 60 days/Comments: AF [place] 0 % No new ventricular NORMAL DEVICE FUNCTION PROGRAMMED MEDICATIONS: Anti-coagulant(s): Aspirin 81 mg, Xarelto 20 mg daily Anti-arrhythmic(s): Coreg 12.5 mg twice a day PLAN: 1) [employer] BiV Pacemaker evaluation 2) [employer] remote transmission scheduled in 3 months. 3) Programming appropriate for device settings Gisela Butler RN us Wayne Davis MD [facility] PRO CEDURES Final Result * DEVICE CHECK - IN OFFICE (09/12/2024 10:59 AM METAL FABRICATOR WELDER) Anatomical Region Laterality Modality Other Narrative 09/15/2024 3:28 PM METAL FABRICATOR WELDER Table formatting from the original result was not included. BiV PACEMAKER CHECK (IN OFFICE) Patient ID: Drew Newman is a 84 y.o. male. This patient received a [employer] BiV Pacemaker. They had a routine [...] to SOFI Episodes last 90 days/Comments: AF [place] 0 %, longest duration 3 minutes and 35 seconds on 08/22. Ventricular rates were controlled. No new ventricular events. NORMAL DEVICE FUNCTION PROGRAMMED MEDICATIONS: Anti-coagulant(s): Aspirin 81 mg, Xarelto 20 mg daily Anti-arrhythmic(s): Coreg 12.5 mg twice a day PLAN: 1) normal [employer] BiV Pacemaker evaluation 2) [employer] remote transmission scheduled in 3 months. 3) Programming appropriate for device settings 4) left subclavian incision well healed, remaining Dermabond removed without incident. Gisela Butler RN us Wayne Davis MD CV CARDIAC SERVICES PRO CEDURES Final Result * CT Abdomen Pelvis WO Contrast (09/14/2022 9:43 AM METAL FABRICATOR WELDER) Anatomical Region Laterality Modality Body N/A Computed Tomogra phy 09/15/2022 10:0 0 AM METAL FABRICATOR WELDER Narrative 09/15/2022 10:11 AM METAL FABRICATOR WELDER EXAM DESCRIPTION: CT ABDOMEN PELVIS WO CONTRAST [...] Findings Committee. J Am Walter Radiol. 2017 May;14(8):9220-2987. THIS IS AN ELECTRONICALLY VERIFIED FINAL REPORT 09/15/2022 10:11 AM - Electronically signed by Ko Haro M.D. AG: JAMES Report ID: [id number] Reading Location: [place] [address] Procedure Note Ko Haro MD - 09/15/2022 [...] Findings Committee. J Am Walter Radiol. 2017 May;14(8):2762-3795. THIS IS AN ELECTRONICALLY VERIFIED FINAL REPORT 09/15/2022 10:11 AM - Electronically signed by Ko Haro M.D. AG: JAMES Report ID: [id number] Reading Location: [place] [address] Elvin Carrillo NP IMG CT PROCEDURES Final Result from Last 3 Months or Most Recently Relevant to Health Maintenance Insurance MEDICARE [facility] MEDICARE [facility] MEDICARE [facility] MEDICARE SUPPLEMENT Advance Directives For more information, please contact: [phone] Documents on File Type Date Recorded Patient Caustic Loader Expl anation ADVANCE DIRECTIVE 07/04/2017 Advance Di rective Checklist * Full Code (Latest Code Status on File) Date Activated Date Inactivated Comments 07/13/2021 3:49 PM 07/14/2021 2:07 PM Care Teams Incinerator Operator Relationship Specialty Start Date End Date Say Low MD [address] [place] [address] PCP - General 02/15/17
--- OUTSIDE RECORDS SUMMARY | 2024-12-11 13:32 | XMS_ITS | Referral Summary ---
Author Organization [facility] al Address [address] [place] [address] Care Team Providers Care Woodworking Shop Laborer Name Role Phone Say Low MD Primary Care Provider [phone] Encounters Date Type Department Care Team Description 12/06/2024 Telephone [facility] Cardiology [address] [place] [phone] Shiva Anne MD 11/26/2024 12:00 PM NETWORK SERVICES PROJECT MANAGER Ancillary Procedure [facility] [address] [place] [phone] Pacemaker (Primary Dx); NICM (nonischemic cardiomyopathy) (HCC) 11/14/2024 Telephone [facility] Cardiology [address] [place] [phone] Shiva Anne MD 09/12/2024 11:15 AM NETWORK SERVICES PROJECT MANAGER Ancillary Procedure Arrhythmia Center [address] [place] [phone] NICM (nonischemic cardiomyopathy) (HCC) (Primary Dx); AV node dysfunction; Pacemaker from [...] checks when necessary. The patient has a [id number]-SPYj score of 4 (annualized risk of stroke 4%). I have therefore recommended continued anticoagulation for thromboprophylaxis. 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 I did check, the [place] wraps are are coming to [facility]. So I think he should be able to get his MRI done. Preoperative cardiovascular examination 05/01/20 19 Assessment & Plan (05/01/2019 11:30 AM CDT): Due to the silent ischemia, CABG in 2004, he needs an aggressive evaluation. Nephrolithiasis 01/04/2019 Overview (01/04/2019): Added automatically from request for surgery [id number] Pacemaker 07/04/2017 Overview (07/04/2017): [employer] DDD Essentio L111 pacemaker implanted on [...] HF symptoms attributed to substantial ventricular pacing, SALES CLERK SUPERVISOR with BiV pacing is recommended to [...] 6:52 PM CDT): Status post pacemaker placement, [employer] device for second-degree AV block Normal [...] on file Legal Sex Male 8:04 PM NETWORK SERVICES PROJECT MANAGER Gender Identity Male 07/10/2021 8:31 AM CDT Sexual Orientation Straight 06/12/2021 8: 44 AM CDT Last Filed Vital Signs Vital Sign Reading Time Taken Comments Blood Pressure 114/58 08/15/2024 5:50 PM NETWORK SERVICES PROJECT MANAGER Pulse 81 08/15/2024 5:50 PM NETWORK SERVICES PROJECT MANAGER Temperature 37.1 C (98.8 F) 08/15/2024 1:03 PM NETWORK SERVICES PROJECT MANAGER Respiratory Rate 26 08/15/2024 5:50 PM NETWORK SERVICES PROJECT MANAGER Oxygen Saturation 93% 08/15/2024 5:50 PM NETWORK SERVICES PROJECT MANAGER Inhaled Oxygen Concentration - - Weight 101.1 kg (222 lb 14.2 oz) 08/15/2024 1:03 PM NETWORK SERVICES PROJECT MANAGER Height 172.7 cm (5' 8 ) 08/15/2024 1:03 PM NETWORK SERVICES PROJECT MANAGER Body Mass Index 33.89 08/15/2024 1:03 PM NETWORK SERVICES PROJECT MANAGER Plan of Treatment Not on file Medical Devices Implanted Type Area Shrimp Trawler Device Identifier Shelf Expiration Date Model / Serial / Lot [employer] Tabby Acuity X4 3.9-5.2fr 2.6fr 86cm Otw Quadripolar Long Straight 4671 - [id number] - [id number] Implanted:Qty: 1 on 08/15/2024 by Wayne Davis MD at [facility] Lead [employer] Tabby [id number] 04/28/2026 [id number] / [id number] / Pacemaker-07/04 Implanted:11/2016 (Quantity not on file) Pacemaker Chest Wall [employer] Tabby Pacemaker Single Chamber [place] P Visionist 0.75x4.45x6.17 cm U228 - [id number] - [id number] Implanted:Qty: 1 on 08/15/2024 by Wayne Davis MD at [facility] Pacemaker [employer] Tabby [id number] 06/08/2026 [id number] / [id number] / [employer] Tabby [id number] Synergy Xd Monorail 3.5mm 32mm 144cm Delivery System 1 Access - S0 - [id number] Implanted:Qty: 1 on 07/13/2021 by Troy Shipley MD at [facility] Stent [employer] Tabby 03/11/2023 [id number] / [id number] / [id number] Description:LAD Explanted Type Area Shrimp Trawler Device Identifier Shelf Expiration Date Model / Serial / Lot [employer] [id number] Inlay [place] 6fr 28cm Pusher Fluoro Marker Atraumatic Insertion Latex Free - [id number] Implanted:Qty: 1 on 01/17/2019 by Concetta Thurston MD at [facility] Explanted:Qty: 1 on 01/31/2019 by Elvin Carrillo NP Stent Left: Ureter [employer] [id number] 07/13/2023 [id number] / / [id number] Procedures Procedure Name Priority Date/Time Associated Diagnosis Comments DEVICE CHECK - REMOTE Routine 11/26/2024 2:37 PM NETWORK SERVICES PROJECT MANAGER NICM (nonischemic cardiomyopathy) ([facility]) DEVICE CHECK - IN OFFICE Routine 09/12/2024 10:59 AM NETWORK SERVICES PROJECT MANAGER AV node dysfunction CT ABDOMEN PELVIS WO CONTRAST Schedule Routine, Read Routine (OP Routine) 09/14/2022 9:43 AM NETWORK SERVICES PROJECT MANAGER Nephrolithiasis from Last 3 Months or Most Recently Relevant to Health Maintenance Results * DEVICE CHECK - REMOTE (11/26/2024 2:37 PM NETWORK SERVICES PROJECT MANAGER) Anatomical Region Laterality Modality Other Narrative 11/28/2024 3:49 PM NETWORK SERVICES PROJECT MANAGER Table formatting from the original result was not included. BiV PACEMAKER CHECK (REMOTE) Patient ID: Drew Newman is a 84 y.o. male. This patient received a [employer] BiV Pacemaker. They had a routine [...] to SOFI Episodes last 60 days/Comments: AF Brogue 0 % No new ventricular NORMAL DEVICE FUNCTION PROGRAMMED MEDICATIONS: Anti-coagulant(s): Aspirin 81 mg, Xarelto 20 mg daily Anti-arrhythmic(s): Coreg 12.5 mg twice a day PLAN: 1) [employer] BiV Pacemaker evaluation 2) [employer] remote transmission scheduled in 3 months. 3) Programming appropriate for device settings Gisela Butler RN Wayne Davis MD CV CARDIAC SERVICES PRO CEDURES Final Result * DEVICE CHECK - IN OFFICE (09/12/2024 10:59 AM NETWORK SERVICES PROJECT MANAGER) Anatomical Region Laterality Modality Other Narrative 09/15/2024 3:28 PM NETWORK SERVICES PROJECT MANAGER Table formatting from the original result was not included. BiV PACEMAKER CHECK (IN OFFICE) Patient ID: Drew Newman is a 84 y.o. male. This patient received a [employer] BiV Pacemaker. They had a routine [...] to SOFI Episodes last 90 days/Comments: AF Brogue 0 %, longest duration 3 minutes and 35 seconds on 08/22. Ventricular rates were controlled. No new ventricular events. NORMAL DEVICE FUNCTION PROGRAMMED MEDICATIONS: Anti-coagulant(s): Aspirin 81 mg, Xarelto 20 mg daily Anti-arrhythmic(s): Coreg 12.5 mg twice a day PLAN: 1) normal [employer] BiV Pacemaker evaluation 2) [employer] remote transmission scheduled in 3 months. 3) Programming appropriate for device settings 4) left subclavian incision well healed, remaining Dermabond removed without incident. Gisela Butler RN us Wayne Davis MD CV CARDIAC SERVICES PRO CEDURES Final Result * CT Abdomen Pelvis WO Contrast (09/14/2022 9:43 AM NETWORK SERVICES PROJECT MANAGER) Anatomical Region Laterality Modality Body N/A Computed Tomogra phy 09/15/2022 10:0 0 AM NETWORK SERVICES PROJECT MANAGER Narrative 09/15/2022 10:11 AM NETWORK SERVICES PROJECT MANAGER EXAM DESCRIPTION: CT ABDOMEN PELVIS WO CONTRAST [...] Findings Committee. J Am Walter Radiol. 2017 May;14(8):8137-5267. THIS IS AN ELECTRONICALLY VERIFIED FINAL REPORT 09/15/2022 10:11 AM - Electronically signed by Ko Haro M.D. AG: JAMES Report ID: [id number] Reading Location: [place] [address] Procedure Note Ko Haro MD - 09/15/2022 [...] Findings Committee. J Am Walter Radiol. 2017 May;14(8):7731-0590. THIS IS AN ELECTRONICALLY VERIFIED FINAL REPORT 09/15/2022 10:11 AM - Electronically signed by Ko Haro M.D. AG: JAMES Report ID: [id number] Reading Location: [place] [address] Khari Marlin Carrillo NP IMG CT PROCEDURES Final Result from Last 3 Months or Most Recently Relevant to Health Maintenance Insurance MEDICARE [facility] MEDICARE FORMERLY [facility] MEDICARE BLUE CROSS MEDICARE SUPPLEMENT Advance Directives For more information, please contact: [phone] Documents on File Type Date Recorded Patient Manager Convention Expl anation ADVANCE DIRECTIVE 07/04/2017 Advance Di rective Checklist * Full Code (Latest Code Status on File) Date Activated Date Inactivated Comments 07/13/2021 3:49 PM 07/14/2021 2:07 PM Care Teams Woodworking Shop Laborer Relationship Specialty Start Date End Date Say Low MD [address] [facility] AT [facility] [address] [facility] [address] [place] [address] PCP - General 02/15/17
--- NOTE | 2024-12-18 11:41 | SUR.PREOP ---
Spoke with patient in regards to Givens capsule. Patient will be picking up instructions from us today. I verbally read off the instructions to the patient as well. Encourage the patient to call us if he has any questions.
--- NOTE | 2024-12-20 11:03 | SUR.PREOP ---
Verified that the patient had picked up his instructions for his Givens capsule procedure. Patient has no questions at this time.
--- OUTSIDE RECORDS SUMMARY | 2024-12-28 06:05 | XMS_ITS | Encounter Summary ---
Author Organization [facility] Address [address] [place] [address] Care Team Providers Care Molasses And Caramel Operator Name Role Phone Say Low MD Primary Care Provider [phone] Unknown, Notinfile Primary Care Provider Unavail able Say Low MD Primary Care Provider [phone] Encounter Details Date Type Department Care Team (Late st Contact Info) Description 09/07/2016 Orders Only Arrhythmia Center Provider, MD Giovanni [address] [place] [id number] Social History Tobacco Use Types Packs/Day Years Used Date Smoking Tobacco: Former Cigarettes Q uit: 10/03/1982 Alcohol Use Standard Drinks/Week Comments No 0 (1 standard drink = 0.6 oz pur e alcohol) Sex and Gender Information Value Date Recorded Sex Assigned at Not on file Legal Sex Male 8:04 PM EMS MANAGER Gender Identity Male 07/10/2021 8:31 AM [...] on filedocumented in this encounter Care Teams Molasses And Caramel Operator Relationship Specialty Start Date End Date Say Low MD [address] [place] [address] PCP - General 10/13/15 02/10/17 Unknown, Notinfile PCP - General 02/11/17 02/14/17 Say Low MD [address] [place] [address] PCP - General 02/15/17 documented as of this encounter
--- OUTSIDE RECORDS SUMMARY | 2024-12-28 06:05 | XMS_ITS | Referral Summary ---
Author Organization [facility] al Address [address] [place] [address] Care Team Providers Care Dealmaker Name Role Phone Say Low MD Primary Care Provider [phone] Encounters Date Type Department Care Team Description 12/18/2024 Orders Only [facility] Cardiology [address] [place] [address] [address], [place] [phone] ProviderGiovanni MD 12/14/2024 Telephone [facility] Cardiology [address] [place] [phone] Shiva Anne MD 12/14/2024 10:45 AM CDT Office Visit [facility] Cardiology [address] [place] [address] [address], [place] [address] Shiva Anne MD CAD S/P percutaneous coronary angioplasty (Primary Dx); NICM (nonischemic cardiomyopathy) (HCC); Hx of CABG; Coronary artery disease involving coronary bypass graft of [place] heart with angina pectoris; History of percutaneous coronary intervention; Paroxysmal atrial fibrillation (HCC); Status post biventricular pacemaker 12/06/2024 Telephone [facility] Cardiology [address] [place] [address] [address], [place] [address] Shiva Anne MD 11/26/2024 12:00 PM PROFESSIONAL DEVELOPMENT MANAGER Ancillary Procedure Arrhythmia Center [address] [place] [address] Pacemaker (Primary Dx); NICM (nonischemic cardiomyopathy) ([facility]) 11/14/2024 Telephone [facility] Cardiology [address] [place] [address] Shiva Anne MD from Last 3 Months Allergies No known active allergies Medications tamsulosin (FLOMAX) 0.4 mg capsule,extended release 24hr take 1 capsule by oral route every day 1/2 hour following the same meal each day 0 0 5 Active SYNJARDY XR 5-1,000 mg tablet, IR & [...] mouth daily 45 tablet 2 4 Active losartan (COZAAR) 50 mg tablet Take 1.5 tablets (75 mg total) by mouth daily 45 tablet 11 4 09/05/20 25 Active rivaroxaban (Xarelto) 15 mg tabletIndication s:Paroxysmal atrial fibrillation (HCC) Take 1 tablet (15 mg total) by mouth daily 90 tablet 5 Active rivaroxaban (Xarelto) 20 mg tabletIndication s:Paroxysmal atrial fibrillation (HCC) Take 1 tablet (20 mg total) by mouth daily 90 tablet 3 4 12/27/19 25 Discontin ued(Reord er) Active Problems Problem Noted Date Diagnosed Date [...] checks when necessary. The patient has a HXM1SJ6-HOPw score of 4 (annualized risk of stroke 4%). I have therefore recommended continued anticoagulation for thromboprophylaxis. NICM (nonischemic cardiomyopathy) 07/19/2024 CAD S/P percutaneous coronary angioplasty 2020 Coronary artery disease (CAD) excluded 1 Hx of CABG 02/22/2020 Coronary artery disease invo lving coronary bypass graft of [place] heart with angina pectoris 02/22/2020 Assessment & [...] at that time. I did check, the [employer] wraps are are coming to [facility]. So I think he should be able to get his MRI done. Preoperative cardiovascular examination 05/01/20 19 Assessment & Plan (05/01/2019 11:30 AM CDT): Due to the silent ischemia, CABG in 2003, he needs an aggressive evaluation. Nephrolithiasis 01/04/2019 Overview (01/04/2019): Added automatically from request for surgery [id number] Pacemaker 07/04/2017 Overview (07/04/2017): [employer] DDD Essentio L111 pacemaker implanted on 07/04/17 [...] and mitigation of heart failure. Heart Rhythm 2023;20:e17-e91. Class I: In patients with a CIED with a decline in LV function or worsening of HF symptoms attributed to substantial ventricular pacing, MEETING COORDINATOR with BiV pacing is recommended to improve [...] 6:52 PM CDT): Status post pacemaker placement, [employer] device for second-degree AV block Normal [...] on file Legal Sex Male 8:04 PM PROFESSIONAL DEVELOPMENT MANAGER Gender Identity Male 07/10/2021 8:31 AM CDT Sexual Orientation Straight 06/12/2021 8: 44 AM CDT Last Filed Vital Signs Vital Sign Reading Time Taken Comments Blood Pressure 124/66 12/14/2024 11:02 AM CDT Pulse 74 12/14/2024 11:02 AM CDT Temperature 37.1 C (98.8 F) 08/15/2024 1:03 PM PROFESSIONAL DEVELOPMENT MANAGER Respiratory Rate 26 08/15/2024 5:50 PM PROFESSIONAL DEVELOPMENT MANAGER Oxygen Saturation 96% 12/14/2024 11:02 AM CDT Inhaled Oxygen Concentration - - Weight 103 kg (227 lb) 12/14/2024 11:02 AM CDT Height 172.7 cm (5' 8 ) 08/15/2024 1:03 PM PROFESSIONAL DEVELOPMENT MANAGER Body Mass Index 34.52 08/15/2024 1:03 PM PROFESSIONAL DEVELOPMENT MANAGER Plan of Treatment Not on file Medical Devices Implanted Type Area Mobile Home Technician Device Identifier Shelf Expiration Date Model / Serial / Lot [employer] Tabby Acuity X4 3.9-5.2fr 2.6fr 86cm Otw Quadripolar Long Straight 4671 - [id number] - [id number] Implanted:Qty: 1 on 08/15/2024 by Wayne Davis MD at [facility] Lead [employer] Tabby [id number] 04/28/2026 [id number] / [id number] / Pacemaker-07/04 Implanted:11/2016 (Quantity not on file) Pacemaker Chest Wall [employer] Tabby Pacemaker Single Chamber Concrete Mixer Operator Helper P Visionist 0.75x4.45x6.17 cm U228 - [id number] - [id number] Implanted:Qty: 1 on 08/15/2024 by Wayne Davis MD at [facility] Pacemaker [employer] Tabby [id number] 06/08/2026 U228 / [id number] / [employer] Tabby [id number] Synergy Xd Monorail 3.5mm 32mm 144cm Delivery System 1 Access - S0 - [id number] Implanted:Qty: 1 on 07/13/2021 by Troy Shipley MD at [facility] Stent [employer] Tabby 03/11/2023 [id number] / [id number] / [id number] Description:LAD Explanted Type Area Mobile Home Technician Device Identifier Shelf Expiration Date Model / Serial / Lot [employer] [id number] Inlay [place] 6fr 28cm Pusher Fluoro Marker Atraumatic Insertion Latex Free - [id number] Implanted:Qty: 1 on 01/17/2019 by Concetta Thurston MD at [facility] Explanted:Qty: 1 on 01/31/2019 by Elvin Carrillo NP Stent Left: Ureter [employer] [id number] 07/13/2023 [id number] / / [id number] Procedures Procedure Name Priority Date/Time Associated Diagnosis Comments LIPID PANEL Routine 12/18/2024 9:41 AM CDT BMP - BASIC METABOLIC PANEL (7) Routine 12/18/2024 9:39 AM CDT DEVICE CHECK - REMOTE Routine 11/26/2024 2:37 PM PROFESSIONAL DEVELOPMENT MANAGER NICM (nonischemic cardiomyopathy) (HCC) CT ABDOMEN PELVIS WO CONTRAST Schedule Routine, Read Routine (OP Routine) 09/14/2022 9:43 AM PROFESSIONAL DEVELOPMENT MANAGER Nephrolithiasis from Last 3 Months or Most Recently Relevant to Health Maintenance Results * Lipid panel (12/18/2024 9:41 AM CDT) Blood us Historical Provider LAB BLOOD ORDERABLES Sho l Result * BMP - Basic Metabolic Panel (7) (12/18/2024 9:39 AM CDT) us Historical Provider LAB BLOOD ORDERABLES Sho l Result * DEVICE CHECK - REMOTE (11/26/2024 2:37 PM PROFESSIONAL DEVELOPMENT MANAGER) Anatomical Region Laterality Modality Other Narrative 11/28/2024 3:49 PM PROFESSIONAL DEVELOPMENT MANAGER Table formatting from the original result was not included. BiV PACEMAKER CHECK (REMOTE) Patient ID: Drew Newman is a 84 y.o. male. This patient received a [employer] BiV Pacemaker. They had a routine [...] to SOFI Episodes last 60 days/Comments: AF [place] 0 % No new ventricular NORMAL DEVICE FUNCTION PROGRAMMED MEDICATIONS: Anti-coagulant(s): Aspirin 81 mg, Xarelto 20 mg daily Anti-arrhythmic(s): Coreg 12.5 mg twice a day PLAN: 1) [employer] BiV Pacemaker evaluation 2) [employer] remote transmission scheduled in 3 months. 3) Programming appropriate for device settings Gisela Butler RN Wayne Davis MD CV CARDIAC SERVICES PRO CEDURES Final Result * CT Abdomen Pelvis WO Contrast (09/14/2022 9:43 AM PROFESSIONAL DEVELOPMENT MANAGER) Anatomical Region Laterality Modality Body N/A Computed Tomogra phy 09/15/2022 10:0 0 AM PROFESSIONAL DEVELOPMENT MANAGER Narrative 09/15/2022 10:11 AM PROFESSIONAL DEVELOPMENT MANAGER EXAM DESCRIPTION: CT ABDOMEN PELVIS WO [...] Findings Committee. J Am Walter Radiol. 2017 May;14(8):7548-6837. THIS IS AN ELECTRONICALLY VERIFIED FINAL REPORT 09/15/2022 10:11 AM - Electronically signed by Ko Haro M.D. AG: JAMES Report ID: [id number] Reading Location: [place] [address] Procedure Note Ko Haro MD - 09/15/2022 [...] Findings Committee. J Am Walter Radiol. 2017 May;14(8):8899-2713. THIS IS AN ELECTRONICALLY VERIFIED FINAL REPORT 09/15/2022 10:11 AM - Electronically signed by Ko Haro M.D. AG: JAMES Report ID: [id number] Reading Location: [place] [address] Elvin Carrillo NP IM CT PROCEDURES Final Result from Last 3 Months or Most Recently Relevant to Health Maintenance Insurance MEDICARE [facility] MEDICARE [facility] MEDICARE [facility] MEDICARE SUPPLEMENT Advance Directives For more information, please contact: [phone] Documents on File Type Date Recorded Patient Cooler Operator Expl anation ADVANCE DIRECTIVE 07/04/2017 Advance Di rective Checklist * Full Code (Latest Code Status on File) Date Activated Date Inactivated Comments 07/13/2021 3:49 PM 07/14/2021 2:07 PM Care Teams Dealmaker Relationship Specialty Start Date End Date Say Low MD [address] [place] [address] PCP - General 02/15/17
--- OUTSIDE RECORDS SUMMARY | 2024-12-28 06:05 | XMS_ITS | Clinical Summary ---
Author Organization [facility] Address [address] [place] [address] Care Team Providers Care Projection Welding Machine Operator Name Role Phone Say Low MD Primary Care Provider [phone] Allergies No known active allergies Medications tamsulosin [...] checks when necessary. The patient has a ARD3CS2-CBMa score of 4 (annualized risk of stroke 4%). I have therefore recommended continued anticoagulation for thromboprophylaxis. NICM (nonischemic cardiomyopathy) 07/19/2024 CAD S/P percutaneous coronary angioplasty 2020 Coronary artery disease (CAD) excluded 1 Hx of CABG 02/22/2020 Coronary artery disease invo lving coronary bypass graft of [place] heart with angina pectoris 02/22/2020 Assessment & [...] at that time. I did check, the [employer] wraps are are coming to [facility]. So I think he should be able to get his MRI done. Preoperative cardiovascular examination 05/01/20 19 Assessment & Plan (05/01/2019 11:30 AM CDT): Due to the silent ischemia, CABG in 2003, he needs an aggressive evaluation. Nephrolithiasis 01/04/2019 Overview (01/04/2019): Added automatically from request for surgery [id number] Pacemaker 07/04/2017 Overview (07/04/2017): [employer] DDD Essentio [id number] pacemaker implanted on 07/04/17 [...] HF symptoms attributed to substantial ventricular pacing, CONTRACT LEAD with BiV pacing is recommended to improve [...] 6:52 PM CDT): Status post pacemaker placement, [employer] device for second-degree AV block Normal [...] Department Care Team Description 12/18/2024 Orders Only [facility] Cardiology [address] [place] [address] [address], [place] [address] ProviderGiovanni MD 12/14/2024 10:45 AM CDT Office Visit [facility] Cardiology [address] [place] [address] [address], [place] [address] Shiva Anne MD CAD S/P percutaneous coronary angioplasty (Primary Dx); NICM (nonischemic cardiomyopathy) (HCC); Hx of CABG; Coronary artery disease involving coronary bypass graft of [place] heart with angina pectoris; History of percutaneous coronary intervention; Paroxysmal atrial fibrillation (HCC); Status post biventricular pacemaker 12/14/2024 Telephone [facility] Cardiology [address] [place] [address] [address], [place] [address] Shiva Anne MD 12/06/[address], [place] [address] Shiva Anne MD 11/26/2024 12:00 PM HEAT REGULATOR Ancillary Procedure [facility] [address] [facility] [address], [place] [id number] Pacemaker (Primary Dx); NICM (nonischemic cardiomyopathy) (HCC) 11/14/[address], [place] [address] Shiva Anne MD from Last 3 Months Surgical History Surgery [...] on file Legal Sex Male 8:04 PM HEAT REGULATOR Gender Identity Male 07/10/2021 8:31 AM CDT Sexual Orientation Straight 06/12/2021 8: 44 AM CDT Obstetrics History Last Filed Vital Signs Vital Sign Reading Time Taken Comments Blood Pressure 124/66 12/14/2024 11:02 AM CDT Pulse 74 12/14/2024 11:02 AM CDT Temperature 37.1 C (98.8 F) 08/15/2024 1:03 PM HEAT REGULATOR Respiratory Rate 26 08/15/2024 5:50 PM HEAT REGULATOR Oxygen Saturation 96% 12/14/2024 11:02 AM CDT Inhaled Oxygen Concentration - - Weight 103 kg (227 lb) 12/14/2024 11:02 AM CDT Height 172.7 cm (5' 8 ) 08/15/2024 1:03 PM HEAT REGULATOR Body Mass Index 34.52 08/15/2024 1:03 PM HEAT REGULATOR Plan of Treatment Health Maintenance Due Date [...] 01/04/2019, 02/11/2017 Medical Devices Implanted Type Area Drafting Technician Device Identifier Shelf Expiration Date Model / Serial / Lot [employer] Tabby Acuity X4 3.9-5.2fr 2.6fr 86cm Otw Quadripolar Long Straight [id number] - [id number] - [id number] Implanted:Qty: 1 on 08/15/2024 by Wayne Davis MD at [facility] Lead [employer] Tabby [id number] 04/28/2026 [id number] / [id number] / Pacemaker-07/04 Implanted:11/2016 (Quantity not on file) Pacemaker Chest Wall [employer] C.[employer].M. [employer] Tabby Pacemaker Single Chamber It Software Developer P Visionist 0.75x4.45x6.17 cm [id number] - [id number] - [id number] Implanted:Qty: 1 on 08/15/2024 by Wayne Davis MD at [facility] Pacemaker [employer] Tabby [id number] 06/08/2026 [id number] / [id number] / [employer] Tabby [id number] Synergy Xd Monorail 3.5mm 32mm 144cm Delivery System 1 Access - S0 - [id number] Implanted:Qty: 1 on 07/13/2021 by Troy Shipley MD at [facility] Stent [employer] Tabby 03/11/2023 [id number] / [id number] / [id number] Description:LAD Explanted Type Area Drafting Technician Device Identifier Shelf Expiration Date Model / Serial / Lot [employer] [id number] Inlay Morning Glory 6fr 28cm Pusher Fluoro Marker Atraumatic Insertion Latex Free - [id number] Implanted:Qty: 1 on 01/17/2019 by Concetta Thurston MD at [facility] Explanted:Qty: 1 on 01/31/2019 by Elvin Carrillo NP Stent Left: Ureter [employer] [id number] 07/13/2023 [id number] / / [id number] Procedures Procedure Name Priority Date/Time Associated Diagnosis Comments LIPID PANEL Routine 12/18/2024 9:41 AM CDT BMP - BASIC METABOLIC PANEL (7) Routine 12/18/2024 9:39 AM CDT DEVICE CHECK - REMOTE Routine 11/26/2024 2:37 PM HEAT REGULATOR NICM (nonischemic cardiomyopathy) (HCC) CT ABDOMEN PELVIS WO CONTRAST Schedule Routine, Read Routine (OP Routine) 09/14/2022 9:43 AM HEAT REGULATOR Nephrolithiasis from Last 3 Months or Most Recently Relevant to Health Maintenance Results * Lipid panel (12/18/2024 9:41 AM CDT) Blood us Historical Provider MD LAB BLOOD ORDERABLES Sho l Result * BMP - Basic Metabolic Panel (7) (12/18/2024 9:39 AM CDT) us Historical Provider MD LAB BLOOD ORDERABLES Sho l Result * DEVICE CHECK - REMOTE (11/26/2024 2:37 PM HEAT REGULATOR) Anatomical Region Laterality Modality Other Narrative 11/28/2024 3:49 PM HEAT REGULATOR Table formatting from the original result was not included. BiV PACEMAKER CHECK (REMOTE) Patient ID: Drew Newman is a 84 y.o. male. This patient received a [employer] BiV Pacemaker. They had a routine [...] to SOFI Episodes last 60 days/Comments: AF [place] 0 % No new ventricular NORMAL DEVICE FUNCTION PROGRAMMED MEDICATIONS: Anti-coagulant(s): Aspirin 81 mg, Xarelto 20 mg daily Anti-arrhythmic(s): Coreg 12.5 mg twice a day PLAN: 1) [employer] BiV Pacemaker evaluation 2) [employer] remote transmission scheduled in 3 months. 3) Programming appropriate for device settings Gisela Butler RN us Wayne Davis MD CV CARDIAC SERVICES PRO CEDURES Final Result * CT Abdomen Pelvis WO Contrast (09/14/2022 9:43 AM HEAT REGULATOR) Anatomical Region Laterality Modality Body N/A Computed Tomogra phy 09/15/2022 10:0 0 AM HEAT REGULATOR Narrative 09/15/2022 10:11 AM HEAT REGULATOR EXAM DESCRIPTION: CT ABDOMEN PELVIS WO CONTRAST [...] Findings Committee. J Am Walter Radiol. 2017 May;14(8):5172-6390. THIS IS AN ELECTRONICALLY VERIFIED FINAL REPORT 09/15/2022 10:11 AM - Electronically signed by Ko Haro M.D. AG: JAMSE Report ID: [id number] Reading Location: [id number] Procedure Note Ko Hrao MD - 09/15/2022 EXAM DESCRIPTION: CT ABDOMEN [...] Findings Committee. J Am Walter Radiol. 2017 May;14(8):2144-6889. THIS IS AN ELECTRONICALLY VERIFIED FINAL REPORT 09/15/2022 10:11 AM - Electronically signed by Ko Haro M.D. AG: JAMES Report ID: [id number] Reading Location: [place] [address] El[address] Carrillo NP IMG CT PROCEDURES Final Result from Last 3 Months or Most Recently Relevant to Health Maintenance Insurance [facility]IC[facility] MEDICARE [facility] MEDICARE SUPPLEMENT Advance Directives For more information, please contact: [phone] Documents on File Type Date Recorded Patient Primer Waterproofing Machine Operator Expl anation ADVANCE DIRECTIVE 07/04/2017 Advance Di rective Checklist * Full Code (Latest Code Status on File) Date Activated Date Inactivated Comments 07/13/2021 3:49 PM 07/14/2021 2:07 PM Care Teams Projection Welding Machine Operator Relationship Specialty Start Date End Date Say Low MD [address] [place] [address] PCP - General 02/15/17
--- OUTSIDE RECORDS SUMMARY | 2024-12-28 06:05 | XMS_ITS | Encounter Summary ---
Author Organization [facility] Address [address] [place] [address] Care Team Providers Care Strike Plate Attacher Name Role Phone Edgar Geiger MD Unavailable Unavailable Say Low MD Primary Care Provider [phone] Encounter Details Date Type Department Care Team (Late st Contact Info) Description 01/12/2018 Lab Requisition [facility] Care DermPath Lab [address] [place] [id number] Kumar Reno MD RETIRED Social History Tobacco [...] AM CDT) Case Report Dermatopathology Report Case: [id number] Authorizing Provider: Kumar Reno MD Collected: 01/11/2018 [...] specimen consists of a shave biopsy measuring [id number]. Jar 0. 6:41 PM T DERMATOPATHOLOGY LABORATORY [...] characteristic determined by the Dermatopathology Laboratory at [facility]. These tests need not be, and therefore are not, approved by the [place] Food and Drug Administration. The tests are used for clinical purposes. Billing Codes Specimen Charges Stain Charges 63408 1 8 6:41 PM CDT DERMATOPATHOLOGY LABORATORY Embedded Images 8 6:41 PM T DERMATOPATHOLOGY LABORATORY Pathology/Cytolog y TISSUE SPECIMEN FROM SKIN / Unknown 01/11/2018 01/12/2018 11:39 AM CDT Kumar Reno MD LAB - PATHOLOGY/CYTO LOGY ORDERABLES DERMATOPATHOLOGY LABORATORY [facility] - Department of Dermatology [address] [place] [address] 5th Floor Lab [address] [phone] documented in this encounter Visit Diagnoses Not on filedocumented in this encounter Care Teams Strike Plate Attacher Relationship Specialty Start Date End Date aSy Low MD [address] [place] [address] PCP - General Internal Medicine 08/14/12 Edgar Geiger MD Cardiovascular Disease 08/14/12 documented as of this encounter
--- OUTSIDE RECORDS SUMMARY | 2024-12-28 06:05 | XMS_ITS | Encounter Summary ---
Author Organization [facility] Address [address] [facility] [address] [place] [address] Care Team Providers Care Vehicle Fuel Systems Converter Name Role Phone Say Low MD Primary Care Provider [phone] Unknown, Notinfile Primary Care Provider Unavail able Say Low MD Primary Care Provider [phone] Encounter Details Date Type Department Care Team (Late st Contact Info) Description 09/08/2016 Orders Only [facility] Provider, MD Giovanni [address] [place] [address] Social History Tobacco Use Types Packs/Day Years Used Date Smoking Tobacco: Former Cigarettes Q uit: 10/03/1982 Alcohol Use Standard Drinks/Week Comments No 0 (1 standard drink = 0.6 oz pur e alcohol) Sex and Gender Information Value Date Recorded Sex Assigned at Not on file Legal Sex Male 8:04 PM FOOD SERVICE AIDE Gender Identity Male 07/10/2021 8:31 AM CDT [...] on filedocumented in this encounter Care Teams Vehicle Fuel Systems Converter Relationship Specialty Start Date End Date Say Low MD [address] [place] [address] PCP - General 10/13/15 02/10/17 Unknown, Notinfile PCP - General 02/11/17 02/14/17 Say Low MD [address] [place] [address] PCP - General 02/15/17 documented as of this encounter
--- OUTSIDE RECORDS SUMMARY | 2024-12-28 06:05 | XMS_ITS | Encounter Summary ---
Author Organization [facility] Address [address] [facility] [address] [place] [address] Care Team Providers Care Purchasing Analyst Name Role Phone Say Low MD Primary Care Provider [phone] Unknown, Notinfile Primary Care Provider Unavail able Say Low MD Primary Care Provider [phone] Encounter Details Date Type Department Care Team (Late st Contact Info) Description 10/01/2016 Orders Only Arrhythmia Center Provider, MD Giovanni [place] [address] Social History Tobacco Use Types Packs/Day Years Used Date Smoking Tobacco: Former Cigarettes Q uit: 10/03/1982 Alcohol Use Standard Drinks/Week Comments No 0 (1 standard drink = 0.6 oz pur e alcohol) Sex and Gender Information Value Date Recorded Sex Assigned at Not on file Legal Sex Male 8:04 PM MOTOR TUNE UP SPECIALIST Gender Identity Male 07/10/2021 8:31 AM [...] on filedocumented in this encounter Care Teams Purchasing Analyst Relationship Specialty Start Date End Date Say Low MD [address] [place] [address] PCP - General 10/13/15 02/10/17 Unknown, Notinfile PCP - General 02/11/17 02/14/17 Say Low MD [address] [place] [address] PCP - General 02/15/17 documented as of this encounter
--- OUTSIDE RECORDS SUMMARY | 2024-12-28 06:05 | XMS_ITS | Clinical Summary ---
Author Organization [facility] Address [address] [place] [address] Phone Care Team Providers Care Sports Information Director Name Role Phone Say Low MD Primary Care Provider [phone] Allergies No known active allergies Medications Medication [...] at that time. I did check, the [employer] wraps are are coming to [facility]. So I think he should be able to get his MRI done. 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
--- OUTSIDE RECORDS SUMMARY | 2024-12-28 06:05 | XMS_ITS | Clinical Summary ---
Author Organization [facility] Address [address] [facility] [place] [address] Care Team Providers Care Assembly Loader Name Role Phone Edgar Geiger MD Unavailable Unavailable Say Low MD Primary Care Provider [phone] Source Comments [facility],non-owned Affiliates and Associated Physician Practices is amultiple site organization consisting of ambulatory clinics and hospital sitesin [place], [place], [place] and [place]. This disclosure is being madepursuant to the Care Everywhere program and may not contain all information available regarding this patient. Last updated 18.[facility] Allergies No known active allergies Medications * [...] daily with morning and evening meal. Active [place]-3 Fatty Acids (TH OMEGA-3 FISH OIL) 1000 [...] to complete this topic MENINGOCOCCAL (Group B) VACC INE SHARED DECISION-MAKING Aged Out No longer eligibl e based on patient's age to complete this topic MENINGOCOCCAL GROUPS A/C/Y/W VACCINE Aged Out No longer eligible b ased on patient's age to complete this topic Care Teams Assembly Loader Relationship Specialty Start Date End Date Say Low MD [address] [place] [address] PCP - General Internal Medicine 08/14/12 Edgar Geiger MD Cardiovascular Disease 08/14/12
--- OUTSIDE RECORDS SUMMARY | 2024-12-28 06:05 | XMS_ITS | Encounter Summary ---
Author Organization [facility] Address [address] [facility] [address] [place] [address] Care Team Providers Care Window Covering Sales Consultant Name Role Phone Say Low MD Primary Care Provider [phone] Encounter Details Date Type Department Care Team (Late st Contact Info) Description 02/17/2017 Orders Only [facility]hythmia Center ProviderGiovanni MD [address] [place] [address] Social History Tobacco Use Types Packs/Day Years Used Date Smoking Tobacco: Former Cigarettes Q uit: 10/03/1982 Alcohol Use Standard Drinks/Week Comments No 0 (1 standard drink = 0.6 oz pur e alcohol) Sex and Gender Information Value Date Recorded Sex Assigned at Not on file Legal 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
--- OUTSIDE RECORDS SUMMARY | 2024-12-28 06:05 | XMS_ITS | Encounter Summary ---
Author Organization [facility] Address [address] [place] [address] Care Team Providers Care Solar Sales Ambassador Name Role Phone Edgar Geiger MD Unavailable Unavailable Say Low MD Primary Care Provider [phone] Encounter Details Date Type Department Care Team (Late st Contact Info) Description 01/30/2018 Lab Requisition [facility] Care DermPath Lab [address] [place] [address] Kumar Reno MD RETIRED Social History Tobacco [...] AM CDT) Case Report Dermatopathology Report Case: [id number] Authorizing Provider: Kumar Reno MD Collected: 01/27/2018 [...] scapula tip. The specimen consists of a [id number], 13j31x0vc excision of skin. The specimen is serially sectioned and a route service representative section is submitted in cassette [...] characteristic determined by the Dermatopathology Laboratory at [facility]. These tests need not be, and therefore are not, approved by the [place] Food and Drug Administration. The tests are used for clinical purposes. Billing Codes Specimen Charges Stain Charges 69035 1 4:54 PM CDT DERMATOPATHOLOGY LABORATORY Embedded Images 4:54 PM CDT DERMATOPATHOLOGY LABORATORY Pathology/Cytolog y TISSUE SPECIMEN FROM SKIN / Unknown 01/27/2018 01/30/2018 11:34 AM CDT Kumar Reno MD LAB - PATHOLOGY/CYTO LOGY ORDERABLES DERMATOPATHOLOGY LABORATORY [facility] - Department of Dermatology [address] [place] [address], 5th Floor Lab [address] [phone] documented in this encounter Visit Diagnoses Not on filedocumented in this encounter Care Teams Solar Sales Ambassador Relationship Specialty Start Date End Date Say Low MD [address] [place] [address] PCP - General Internal Medicine 08/14/12 Edgar Geiger MD Cardiovascular Disease 08/14/12 documented as of this encounter
[2024-12-28] MEDS: SIMETHICONE ORAL SUSPENSION 20 MG/0.3 ML 30 ML BOTTLE 0.6 ML IRRIGATION (06:20)
--- NOTE | 2024-12-28 06:40 | SUR.PREOP ---
Patient brought to GI Lab. Instructions for patient undergoing Capsule Endoscopy reviewed with patient. Consent form signed. Sensor array applied to patient's abdomen and connected to recorded. Patient swallowed capsule with 14 ozs of water infused with Simethicone. Patient instructed they may have clear liquids at 0830 this AM and eat or drink at 1030 this AM. Patient instructed to return to GI Lab at 1500 this afternoon for removal of recording device and to call [phone] or to return to the hospital if any nausea and vomiting or abdominal pain is experienced.
[2024-12-28 06:41] VITALS: BP 156/61; PULSE 62; RESP 18; O2SAT 98
--- NOTE | 2024-12-28 14:53 | SUR.PHASEII ---
Patient returned to the GI Lab [id number] for recorder box removal. Patient voiced no complaints. States they have understanding of instructions. Patient left ambulatory.
== END 2024-12-28 06:03 | disposition home or self-care (01) ==
PROVIDERS: PCP Internal Medicine; Referring Provider Internal Medicine Gastroenterology; Visit Provider Internal Medicine Gastroenterology
PROC: 0DJ07ZZ Inspection of Upper Intestinal Tract, Via Natural or Artificial Opening (ICD-10-PCS; CPT 91110; principal; 2024-12-28 07:00)
DX: Z12.11 Encounter for screening for malignant neoplasm of colon (principal); D50.9 Iron deficiency anemia, unspecified
CPT/HCPCS: 91110

== ENCOUNTER 2025-01-01 09:35 | Outpatient (CLI) | payer MEDICARE, SELFPAY ==
--- NOTE | ~2025-01-01 | XR_ITS ---
Supine and upright views of the abdomen Clinical history: Endoscopy capsule follow-up COMPARISON: 11/19/2024 Findings: Bowel gas pattern is nonspecific. No evidence for obstruction or free air. No abnormal mass lesion or calcification is seen. Osseous structures are intact. Impression: No significant abnormality is seen. No endoscopy capsule visualized on this exam. Reviewed, dictated and finalized at location . Impression: No significant abnormality is seen. [facility]
--- OUTSIDE RECORDS SUMMARY | 2025-01-01 10:20 | XMS_ITS | Encounter Summary ---
Author Organization [facility] Address [address] [facility] [address] [place] [address] Care Team Providers Care Structural Analysis Engineer Name Role Phone Say Low MD Primary Care Provider [phone] Unknown, Notinfile Primary Care Provider Unavail able Say Low MD Primary Care Provider [phone] Encounter Details Date Type Department Care Team (Late st Contact Info) Description 09/08/2016 Orders Only Arrhythmia Center Provider, MD Giovanni [address] [place] [address] Social History Tobacco Use Types Packs/Day Years Used Date Smoking Tobacco: Former Cigarettes Q uit: 10/03/1982 Alcohol Use Standard Drinks/Week Comments No 0 (1 standard drink = 0.6 oz pur e alcohol) Sex and Gender Information Value Date Recorded Sex Assigned at Not on file 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
--- OUTSIDE RECORDS SUMMARY | 2025-01-01 10:20 | XMS_ITS | Encounter Summary ---
Author Organization [facility] Address [address] [place] [address] Care Team Providers Care Tennis Court Attendant Name Role Phone Edgar Geiger MD Unavailable Unavailable Say Low MD Primary Care Provider [phone] Encounter Details Date Type Department Care Team (Late st Contact Info) Description 01/12/2018 Lab Requisition [facility] Care DermPath Lab [address] [place] [address] Kumar Reno MD RETIRED Social History Tobacco [...] AM CDT) Case Report Dermatopathology Report Case: [id number] Authorizing Provider: Kumar Reno MD Collected: 01/11/2018 [...] specimen consists of a shave biopsy measuring [id number]. Jar 0. 6:41 PM T DERMATOPATHOLOGY LABORATORY [...] purposes. Billing Codes Specimen Charges Stain Charges 17238 1 8 6:41 PM CDT DERMATOPATHOLOGY LABORATORY Embedded Images 8 6:41 PM T DERMATOPATHOLOGY LABORATORY Pathology/Cytolog y TISSUE SPECIMEN FROM SKIN / Unknown 01/11/2018 01/12/2018 11:39 AM CDT Kumar Reno MD LAB - PATHOLOGY/CYTO LOGY ORDERABLES DERMATOPATHOLOGY LABORATORY [facility] - Department of Dermatology [address] [place] [address] 5th Floor Lab [address] [phone] documented in this encounter Visit Diagnoses Not on filedocumented in this encounter Care Teams Tennis Court Attendant Relationship Specialty Start Date End Date Say Low MD [address] [place] [address] PCP - General Internal Medicine 08/14/12 Edgar Geiger MD Cardiovascular Disease 08/14/12 documented as of this encounter
--- OUTSIDE RECORDS SUMMARY | 2025-01-01 10:20 | XMS_ITS | Clinical Summary ---
Author Organization [email or web address] Address [address] [facility] [place] [place] [address] Care Team Providers Care Chief Cardiopulmonary Technologist Name Role Phone Edgar Geiger MD Unavailable Unavailable Say Low MD Primary Care Provider [phone] Source Comments [email or web address],non-owned Affiliates and Associated Physician Practices is amultiple site organization consisting of ambulatory clinics and hospital sitesin [place], [place], [place] and [place]. This disclosure is being madepursuant to the Care Everywhere program and may not contain all information available regarding this patient. Last updated 18.[email or web address] Allergies No known active allergies Medications * [...] daily with morning and evening meal. Active [place]-3 Fatty Acids (TH OMEGA-3 FISH OIL) 1000 [...] age to complete this topic Care Teams Chief Cardiopulmonary Technologist Relationship Specialty Start Date End Date Say Low MD [address] [place] [address] PCP - General Internal Medicine 08/14/12 Edgar Geiger MD Cardiovascular Disease 08/14/12
--- OUTSIDE RECORDS SUMMARY | 2025-01-01 10:20 | XMS_ITS | Encounter Summary ---
Author Organization [facility] Address [address] [facility] [address] [place] [address] Care Team Providers Care Uniform Force Captain Name Role Phone Say Low MD Primary Care Provider [phone] Encounter Details Date Type Department Care Team (Late st Contact Info) Description 02/17/2017 Orders Only [facility] ProviderGiovanni MD [address] [place] [address] Social History Tobacco Use Types Packs/Day Years Used Date Smoking Tobacco: Former Cigarettes Q uit: 10/03/1982 Alcohol Use Standard Drinks/Week Comments No 0 (1 standard drink = 0.6 oz pur e alcohol) Sex and Gender Information Value Date Recorded Sex Assigned at Not on file Legal Sex Male 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
--- OUTSIDE RECORDS SUMMARY | 2025-01-01 10:20 | XMS_ITS | Encounter Summary ---
Author Organization [facility] Address [address] [place] [address] Care Team Providers Care Gas Meter Prover Name Role Phone Edgar Geiger MD Unavailable Unavailable Say Low MD Primary Care Provider Encounter Details Date Type Department Care Team (Late st Contact Info) Description 01/30/2018 Lab Requisition [facility] Care DermPath Lab [address] [place] [id number] Kumar Reno MD RETIRED Social History Tobacco [...] AM CDT) Case Report Dermatopathology Report Case: [id number] Authorizing Provider: Kumar Reno MD Collected: 01/27/2018 [...] scapula tip. The specimen consists of a [id number], [id number] excision of skin. The specimen is serially sectioned and a direct marketing representative section is submitted in cassette 1. [...] characteristic determined by the Dermatopathology Laboratory at [facility]. These tests need not be, and therefore are not, approved by the [place] Food and Drug Administration. The tests are used for clinical purposes. Billing Codes Specimen Charges Stain Charges 39199 1 4:54 PM CDT DERMATOPATHOLOGY LABORATORY Embedded Images 4:54 PM CDT DERMATOPATHOLOGY LABORATORY Pathology/Cytolog y TISSUE SPECIMEN FROM SKIN / Unknown 01/27/2018 01/30/2018 11:34 AM CDT Kumar Reno MD LAB - PATHOLOGY/CYTO LOGY ORDERABLES DERMATOPATHOLOGY LABORATORY [facility] - Department of Dermatology [address] [place] [address], 5th Floor Lab [address] [phone] documented in this encounter Visit Diagnoses Not on filedocumented in this encounter Care Teams Gas Meter Prover Relationship Specialty Start Date End Date Say Low MD [address] [place] [address] PCP - General Internal Medicine 08/14/12 Edgar Geiger MD Cardiovascular Disease 08/14/12 documented as of this encounter
--- OUTSIDE RECORDS SUMMARY | 2025-01-01 10:20 | XMS_ITS | Encounter Summary ---
Author Organization [facility] Address [address] [facility] [address] [place] [address] Care Team Providers Care Mechanic Field Service Name Role Phone Say Low MD Primary Care Provider [phone] Unknown, Notinfile Primary Care Provider Unavail able Say Low MD Primary Care Provider [phone] Encounter Details Date Type Department Care Team (Late st Contact Info) Description 09/07/2016 Orders Only Arrhythmia Center Provider, MD Giovanni [address] [place] [address] Social History Tobacco Use Types Packs/Day Years Used Date Smoking Tobacco: Former Cigarettes Q uit: 10/03/1982 Alcohol Use Standard Drinks/Week Comments No 0 (1 standard drink = 0.6 oz pur e alcohol) Sex and Gender Information Value Date Recorded Sex Assigned at Not on file Legal 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
--- OUTSIDE RECORDS SUMMARY | 2025-01-01 10:20 | XMS_ITS | Encounter Summary ---
Author Organization [facility] Address [address] [facility] [address] [place] [address] Care Team Providers Care Farmworker Egg Producing Farm Name Role Phone Say Low MD Primary Care Provider [phone] Unknown, Notinfile Primary Care Provider Unavail able Say Low MD Primary Care Provider [phone] Encounter Details Date Type Department Care Team (Late st Contact Info) Description 10/01/2016 Orders Only Arrhythmia Center Provider, MD Giovanni [place] [address] Social History Tobacco Use Types Packs/Day Years Used Date Smoking Tobacco: Former Cigarettes Q uit: 10/03/1982 Alcohol Use Standard Drinks/Week Comments No 0 (1 standard drink = 0.6 oz pur e alcohol) Sex and Gender Information Value Date Recorded Sex Assigned at Not on file 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
--- OUTSIDE RECORDS SUMMARY | 2025-01-01 10:21 | XMS_ITS | Clinical Summary ---
Author Organization [facility] Address [address] [place] [address] Care Team Providers Care Laminator Printed Circuit Boards Name Role Phone Say Low MD Primary Care Provider [phone] Allergies No known active allergies Medications tamsulosin [...] checks when necessary. The patient has a QCT3EL4-ZEXb score of 4 (annualized risk of stroke 4%). I have therefore recommended continued anticoagulation for thromboprophylaxis. 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 I did check, the [employer] wraps are are coming to [facility]. So I think he should be able to get his MRI done. Preoperative cardiovascular examination 05/01/20 19 Assessment & Plan (05/01/2019 11:30 AM CDT): Due to the silent ischemia, CABG in 2003, he needs an aggressive evaluation. Nephrolithiasis 01/04/2019 Overview (01/04/2019): Added automatically from request for surgery [id number] Pacemaker 07/04/2017 Overview (07/04/2017): [employer] DDD Essentio L111 pacemaker implanted on 07/04/17 [...] HF symptoms attributed to substantial ventricular pacing, ASPHALT TAR AND GRAVEL ROOFER with BiV pacing is recommended to improve [...] 6:52 PM CDT): Status post pacemaker placement, [employer] device for second-degree AV block Normal [...] Department Care Team Description 12/18/2024 Orders Only [facility] Cardiology [address] [place] [address] [address], [place] [address] ProviderGiovanni MD 12/14/2024 10:45 AM CDT Office Visit [facility] Cardiology [address] [place] [address] [address], [place] [address] Shiva Anne MD CAD S/P percutaneous coronary angioplasty (Primary Dx); NICM (nonischemic cardiomyopathy) (HCC); Hx of CABG; 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; History of percutaneous coronary intervention; Paroxysmal atrial fibrillation (HCC); Status post biventricular pacemaker 12/14/2024 Telephone [facility] Cardiology [address] [place] [address] [address], [place] [address] Shiva Anne MD 12/06/[address], [place] [address] Shiva Anne MD 11/26/2024 12:00 PM SCUBA DIVING INSTRUCTOR Ancillary Procedure Arrhythmia Center [address] [facility] [address], [place] [phone] Pacemaker (Primary Dx); NICM (nonischemic cardiomyopathy) (HCC) 11/14/[address], [place] [address] Shiva Anne MD from Last 3 Months [...] on file Legal Sex Male 8:04 PM SCUBA DIVING INSTRUCTOR Gender Identity Male 07/10/2021 8:31 AM CDT Sexual Orientation Straight 06/12/2021 8: 44 AM CDT Obstetrics History Last Filed Vital Signs Vital Sign Reading Time Taken Comments Blood Pressure 124/66 12/14/2024 11:02 AM CDT Pulse 74 12/14/2024 11:02 AM CDT Temperature 37.1 C (98.8 F) 08/15/2024 1:03 PM SCUBA DIVING INSTRUCTOR Respiratory Rate 26 08/15/2024 5:50 PM SCUBA DIVING INSTRUCTOR Oxygen Saturation 96% 12/14/2024 11:02 AM CDT Inhaled Oxygen Concentration - - Weight 103 kg (227 lb) 12/14/2024 11:02 AM CDT Height 172.7 cm (5' 8 ) 08/15/2024 1:03 PM SCUBA DIVING INSTRUCTOR Body Mass Index 34.52 08/15/2024 1:03 PM SCUBA DIVING INSTRUCTOR Plan of Treatment Health Maintenance Due Date Last Done Comments Depression Screening 1942 DTaP/Tdap/Td Vaccine (1 - Tdap) 1953 Hepatitis B Screening 1960 Pneumococcal vaccine 65+ (1 of 2 - PCV) 1961 Zoster Vaccine (1 of 2) 1992 Well Visit 65+ 2007 Fall Risk Assessment 07/14/2022 07/14/2021 Influenza Vaccine (Season Ended) 2025 Abdominal Aortic Aneurysm (A AA) Screen Completed 09/14/2022, 01/04/2019, 02/11/2017 Medical Devices Implanted Type Area Tire Specialist Device Identifier Shelf Expiration Date Model / Serial / Lot [employer] Tabby Acuity X4 3.9-5.2fr 2.6fr 86cm Otw Quadripolar Long Straight 4671 - [id number] - [id number] Implanted:Qty: 1 on 08/15/2024 by Wayne Davis MD at [facility] Lead [employer] Tabby [id number] 04/28/2026 [id number] / [id number] / Pacemaker-07/04 Implanted:11/2016 (Quantity not on file) Pacemaker Chest Wall [employer] Tabby Pacemaker Single Chamber Slackline Operator P Visionist 0.75x4.45x6.17 cm U228 - [id number] - [id number] Implanted:Qty: 1 on 08/15/2024 by Wayne Davis MD at [facility] Pacemaker [employer] Tabby [id number] 06/08/2026 [id number] / [id number] / [employer] Tabby [id number] Synergy Xd Monorail 3.5mm 32mm 144cm Delivery System 1 Access - S0 - [id number] Implanted:Qty: 1 on 07/13/2021 by Troy Shipley MD at [facility] Stent [employer] Tabby 03/11/2023 [id number] / 0 / [id number] Description:LAD Explanted Type Area Tire Specialist Device Identifier Shelf Expiration Date Model / Serial / Lot [employer] [id number] Inlay [place] 6fr 28cm Pusher Fluoro Marker Atraumatic Insertion Latex Free - [id number] Implanted:Qty: 1 on 01/17/2019 by Concetta Thurston MD at [facility] Explanted:Qty: 1 on 01/31/2019 by Elvin Carrillo NP Stent Left: Ureter [employer] [id number] 07/13/2023 [id number] / / [id number] Procedures Procedure Name Priority Date/Time Associated Diagnosis Comments LIPID PANEL Routine 12/18/2024 9:41 AM CDT BMP - BASIC METABOLIC PANEL (7) Routine 12/18/2024 9:39 AM CDT DEVICE CHECK - REMOTE Routine 11/26/2024 2:37 PM SCUBA DIVING INSTRUCTOR NICM (nonischemic cardiomyopathy) (HCC) CT ABDOMEN PELVIS WO CONTRAST Schedule Routine, Read Routine (OP Routine) 09/14/2022 9:43 AM SCUBA DIVING INSTRUCTOR Nephrolithiasis from Last 3 Months or Most Recently Relevant to Health Maintenance Results * Lipid panel (12/18/2024 9:41 AM CDT) Blood us Historical Provider MD LAB BLOOD ORDERABLES Sho l Result * BMP - Basic Metabolic Panel (7) (12/18/2024 9:39 AM CDT) us Historical Provider MD LAB BLOOD ORDERABLES Sho l Result * DEVICE CHECK - REMOTE (11/26/2024 2:37 PM SCUBA DIVING INSTRUCTOR) Anatomical Region Laterality Modality Other Narrative 11/28/2024 3:49 PM SCUBA DIVING INSTRUCTOR Table formatting from the original result was not included. BiV PACEMAKER CHECK (REMOTE) Patient ID: Drew Newman is a 84 y.o. male. This patient received a Russell scientific BiV Pacemaker. They had a routine [...] to SOFI Episodes last 60 days/Comments: AF [place] 0 % No new ventricular NORMAL DEVICE FUNCTION PROGRAMMED MEDICATIONS: Anti-coagulant(s): Aspirin 81 mg, Xarelto 20 mg daily Anti-arrhythmic(s): Coreg 12.5 mg twice a day PLAN: 1) [employer] BiV Pacemaker evaluation 2) [employer] remote transmission scheduled in 3 months. 3) Programming appropriate for device settings Gisela Butler RN us Wayne Davis MD CV CARDIAC SERVICES PRO CEDURES Final Result * CT Abdomen Pelvis WO Contrast (09/14/2022 9:43 AM SCUBA DIVING INSTRUCTOR) Anatomical Region Laterality Modality Body N/A Computed Tomogra phy 09/15/2022 10:0 0 AM SCUBA DIVING INSTRUCTOR Narrative 09/15/2022 10:11 AM SCUBA DIVING INSTRUCTOR EXAM DESCRIPTION: CT ABDOMEN PELVIS WO CONTRAST [...] Findings Committee. J Am Walter Radiol. 2017 May;14(8):4649-6954. THIS IS AN ELECTRONICALLY VERIFIED FINAL REPORT 09/15/2022 10:11 AM - Electronically signed by oK Haro M.D. AG: JAMES Report ID: [id number] Reading Location: [id number] Procedure Note Ko Haro MD - 09/15/2022 [...] Findings Committee. J Am Walter Radiol. 2017 May;14(8):9222-5703. THIS IS AN ELECTRONICALLY VERIFIED FINAL REPORT 09/15/2022 10:11 AM - Electronically signed by Ko Haro M.D. AG: JAMES Report ID: [id number] Reading Location: [place] [address] Elvin Carrillo NP IMG CT PROCEDURES Final Result from Last 3 Months or Most Recently Relevant to Health Maintenance Insurance MEDICARE [facility] MEDICARE [facility] MEDICARE [facility] MEDICARE SUPPLEMENT Advance Directives For more information, please contact: [phone] Documents on File Type Date Recorded Patient Animal Care Provider Expl anation ADVANCE DIRECTIVE 07/04/2017 Advance Di rective Checklist * Full Code (Latest Code Status on File) Date Activated Date Inactivated Comments 07/13/2021 3:49 PM 07/14/2021 2:07 PM Care Teams Laminator Printed Circuit Boards Relationship Specialty Start Date End Date Say Low MD [address] [place] [address] PCP - General 02/15/17
--- OUTSIDE RECORDS SUMMARY | 2025-01-01 10:21 | XMS_ITS | Referral Summary ---
Author Organization [facility] Address [address] [place] [address] Care Team Providers Care Fitness Instructor Name Role Phone Say Low MD Primary Care Provider [phone] Encounters Date Type Department Care Team Description 12/18/2024 Orders Only [facility] Cardiology [address] [place] [address] [address] [address] ProviderGiovanni MD 12/14/2024 Telephone [facility] Cardiology [address] [place] [address] Shiva Anne MD 12/14/2024 10:45 AM CDT Office Visit [facility] Cardiology [address] [place] [address] [address] [address] Shiva Anne MD CAD S/P percutaneous coronary angioplasty (Primary Dx); NICM (nonischemic cardiomyopathy) (HCC); Hx of CABG; Coronary artery disease involving coronary bypass graft of [place] heart with angina pectoris; History of percutaneous coronary intervention; Paroxysmal atrial fibrillation (HCC); Status post biventricular pacemaker 12/06/2024 Telephone [facility] Cardiology [address] [place] [address] [address], [place] [address] Shiva Anne MD 11/26/2024 12:00 PM LOGGING WORKER Ancillary Procedure Arrhythmia Center [address] [facility] [address] [place] [address] Pacemaker (Primary Dx); NICM (nonischemic cardiomyopathy) ([facility]) 11/14/2024 Telephone [facility] Cardiology [address] [facility] [address] [place] [address] Shiva Anne MD from Last [...] checks when necessary. The patient has a COU8TO4-KPVh score of 4 (annualized risk of stroke 4%). I have therefore recommended continued anticoagulation for thromboprophylaxis. NICM (nonischemic cardiomyopathy) 07/19/2024 CAD S/P percutaneous coronary angioplasty 2020 Coronary artery disease (CAD) excluded 1 Hx of CABG 02/22/2020 Coronary artery disease invo lving coronary bypass graft of [place] heart with angina pectoris 02/22/2020 Assessment & [...] at that time. I did check, the [employer] wraps are are coming to [facility]. So I think he should be able to get his MRI done. Preoperative cardiovascular examination 05/01/20 19 Assessment & Plan (05/01/2019 11:30 AM CDT): Due to the silent ischemia, CABG in 2003, he needs an aggressive evaluation. Nephrolithiasis 01/04/2019 Overview (01/04/2019): Added automatically from request for surgery [id number] Pacemaker 07/04/2017 Overview (07/04/2017): [employer] W-21 DDD Essentio L111 pacemaker implanted on 07/04/17 [...] HF symptoms attributed to substantial ventricular pacing, CLINICAL ALLERGIST with BiV pacing is recommended to improve [...] 6:52 PM CDT): Status post pacemaker placement, [employer] device for second-degree AV block Normal [...] on file Legal Sex Male 8:04 PM LOGGING WORKER Gender Identity Male 07/10/2021 8:31 AM CDT Sexual Orientation Straight 06/12/2021 8: 44 AM CDT Last Filed Vital Signs Vital Sign Reading Time Taken Comments Blood Pressure 124/66 12/14/2024 11:02 AM CDT Pulse 74 12/14/2024 11:02 AM CDT Temperature 37.1 C (98.8 F) 08/15/2024 1:03 PM LOGGING WORKER Respiratory Rate 26 08/15/2024 5:50 PM LOGGING WORKER Oxygen Saturation 96% 12/14/2024 11:02 AM CDT Inhaled Oxygen Concentration - - Weight 103 kg (227 lb) 12/14/2024 11:02 AM CDT Height 172.7 cm (5' 8 ) 08/15/2024 1:03 PM LOGGING WORKER Body Mass Index 34.52 08/15/2024 1:03 PM LOGGING WORKER Plan of Treatment Not on file Medical Devices Implanted Type Area Metal Trimmer Device Identifier Shelf Expiration Date Model / Serial / Lot [employer] Tabby Acuity X4 3.9-5.2fr 2.6fr 86cm Otw Quadripolar Long Straight 4671 - [id number] - [id number] Implanted:Qty: 1 on 08/15/2024 by Wayne Davis MD at [facility] Lead [employer] Tabby [id number] 04/28/2026 [id number] / [id number] / Pacemaker-07/04 Implanted:11/2016 (Quantity not on file) Pacemaker Chest Wall [employer] Tabby Pacemaker Single Chamber Associate Civil Engineer P Visionist 0.75x4.45x6.17 cm U228 - [id number] - [id number] Implanted:Qty: 1 on 08/15/2024 by Wayne Davis MD at [facility] Pacemaker [employer] Tabby [id number] 06/08/2026 U228 / [id number] / [employer] Tabby [id number] Synergy Xd Monorail 3.5mm 32mm 144cm Delivery System 1 Access - S0 - [id number] Implanted:Qty: 1 on 07/13/2021 by Troy Shipley MD at [facility] Stent PT [employer] [employer] Selaras Tabby 03/11/2023 [id number] / 0 / [id number] Description:LAD Explanted Type Area Metal Trimmer Device Identifier Shelf Expiration Date Model / Serial / Lot [employer] [id number] Inlay [place] 6fr 28cm Pusher Fluoro Marker Atraumatic Insertion Latex Free - [id number] Implanted:Qty: 1 on 01/17/2019 by Concetta Thurston MD at [facility] Explanted:Qty: 1 on 01/31/2019 by Elvin Carrillo NP Stent Left: Ureter [employer] [id number] 07/13/2023 [id number] / / [id number] Procedures Procedure Name Priority Date/Time Associated Diagnosis Comments LIPID PANEL Routine 12/18/2024 9:41 AM CDT BMP - BASIC METABOLIC PANEL (7) Routine 12/18/2024 9:39 AM CDT DEVICE CHECK - REMOTE Routine 11/26/2024 2:37 PM LOGGING WORKER NICM (nonischemic cardiomyopathy) (HCC) CT ABDOMEN PELVIS WO CONTRAST Schedule Routine, Read Routine (OP Routine) 09/14/2022 9:43 AM LOGGING WORKER Nephrolithiasis from Last 3 Months or Most Recently Relevant to Health Maintenance Results * Lipid panel (12/18/2024 9:41 AM CDT) Blood us Historical Provider LAB BLOOD ORDERABLES Sho l Result * BMP - Basic Metabolic Panel (7) (12/18/2024 9:39 AM CDT) us Historical Provider LAB BLOOD ORDERABLES Sho l Result * DEVICE CHECK - REMOTE (11/26/2024 2:37 PM LOGGING WORKER) Anatomical Region Laterality Modality Other Narrative 11/28/2024 3:49 PM LOGGING WORKER Table formatting from the original result was not included. BiV PACEMAKER CHECK (REMOTE) Patient ID: Drew Newman is a 84 y.o. male. This patient received a [employer] scientific BiV Pacemaker. They had a routine [...] to SOFI Episodes last 60 days/Comments: AF [place] 0 % No new ventricular NORMAL DEVICE FUNCTION PROGRAMMED MEDICATIONS: Anti-coagulant(s): Aspirin 81 mg, Xarelto 20 mg daily Anti-arrhythmic(s): Coreg 12.5 mg twice a day PLAN: 1) [employer] scientific BiV Pacemaker evaluation 2) [employer] scientific remote transmission scheduled in 3 months. 3) Programming appropriate for device settings Gisela Butler RN Wayne Davis MD CV CARDIAC SERVICES PRO CEDURES Final Result * CT Abdomen Pelvis WO Contrast (09/14/2022 9:43 AM LOGGING WORKER) Anatomical Region Laterality Modality Body N/A Computed Tomogra phy 09/15/2022 10:0 0 AM LOGGING WORKER Narrative 09/15/2022 10:11 AM LOGGING WORKER EXAM DESCRIPTION: CT ABDOMEN PELVIS WO [...] Findings Committee. J Am Walter Radiol. 2017 May;14(8):3734-8900. THIS IS AN ELECTRONICALLY VERIFIED FINAL REPORT 09/15/2022 10:11 AM - Electronically signed by Ko Haro M.D. AG: JAMES Report ID: [id number] Reading Location: [place] [address] Procedure Note Ko Haro MD - 09/15/2022 [...] Findings Committee. J Am Walter Radiol. 2017 May;14(8):6371-7709. THIS IS AN ELECTRONICALLY VERIFIED FINAL REPORT 09/15/2022 10:11 AM - Electronically signed by Ko Haro M.D. AG: JAMES Report ID: [id number] Reading Location: [place] [address] Elvin Carrillo NP IM CT PROCEDURES Final Result from Last 3 Months or Most Recently Relevant to Health Maintenance Insurance MEDICARE [facility] MEDICARE [facility] MEDICARE [facility] MEDICARE SUPPLEMENT Advance Directives For more information, please contact: [phone] Documents on File Type Date Recorded Patient Business Process Consultant Expl anation ADVANCE DIRECTIVE 07/04/2017 Advance Di rective Checklist * Full Code (Latest Code Status on File) Date Activated Date Inactivated Comments 07/13/2021 3:49 PM 07/14/2021 2:07 PM Care Teams Fitness Instructor Relationship Specialty Start Date End Date Say Low MD [address] [place] [address] PCP - General 02/15/17
--- OUTSIDE RECORDS SUMMARY | 2025-01-01 10:21 | XMS_ITS | Clinical Summary ---
Author Organization [facility] Address [address] [place] [address] Phone Care Team Providers Care Quiller Runner Name Role Phone Say Low MD Primary Care Provider [phone] Allergies No known active allergies Medications Medication [...] at that time. I did check, the [employer] wraps are are coming to [facility]. So I think he should be able to get his MRI done. 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
== END 2025-01-01 09:36 | disposition home or self-care (01) ==
PROVIDERS: PCP Internal Medicine; Visit Provider Internal Medicine
DX: D64.9 Anemia, unspecified (principal)
CPT/HCPCS: 74018

== ENCOUNTER 2025-01-26 07:48 | Outpatient (CLI) | payer MEDICARE, SELFPAY ==
--- OUTSIDE RECORDS SUMMARY | 2025-01-26 07:50 | XMS_ITS | Referral Summary ---
Author Organization [facility] Address [address] [place] [address] Care Team Providers Care Aquatic Instructor Name Role Phone Say Low MD Primary Care Provider [phone] Encounters Date Type Department Care Team Description 01/03/2025 Telephone [facility] [address] [place] [phone] Shiva Anne MD 12/18/2024 Orders Only [facility] [address] [place] [phone] ProviderGoivanni MD 12/14/2024 Telephone [facility] [address] [place] [phone] Shiva Anne MD 12/14/2024 10:45 AM CDT Office Visit [facility] [address] [place] [phone] Shiva Anne MD CAD S/P percutaneous coronary angioplasty (Primary Dx); NICM (nonischemic cardiomyopathy) (HCC); Hx of CABG; Coronary artery disease involving coronary bypass graft of [place] heart with angina pectoris; History of percutaneous coronary intervention; Paroxysmal atrial fibrillation (HCC); Status post biventricular pacemaker 12/06/2024 Telephone [facility] [address] [place] [phone] Shiva Anne MD 11/26/2024 12:00 PM CLUTCH REBUILDER Ancillary Procedure [facility] [address] [place] [address] Pacemaker (Primary Dx); NICM (nonischemic cardiomyopathy) (HCC) 11/14/2024 Telephone [facility] [address] [place] [address] Shiva Anne MD from Last [...] ER (UROCIT-K) 10 mEq (1,080 mg) CR tabletIndications :Nephrolithiasis Take 1 tablet (10 mEq total) by [...] 09/05/20 25 Active rivaroxaban (Xarelto) 15 mg tabletIndications :Paroxysmal atrial fibrillation (HCC) Take 1 tablet (15 mg total) by mouth daily 90 tablet 5 Active Active Problems Problem Noted Date Diagnosed [...] checks when necessary. The patient has a LVC0HO4-XSAf score of 4 (annualized risk of stroke 4%). I have therefore recommended continued anticoagulation for thromboprophylaxis. NICM (nonischemic cardiomyopathy) 07/19/2024 CAD S/P percutaneous coronary angioplasty 2020 Coronary artery disease (CAD) excluded 1 Hx of CABG 02/22/2020 Coronary artery disease invo lving coronary bypass graft of [place]-mo[place] heart with angina pectoris 02/22/2020 Assessment & [...] at that time. I did check, the [employer] wraps are are coming to [facility]. So I think he should be able to get his MRI done. Preoperative cardiovascular examination 05/01/20 19 Assessment & Plan (05/01/2019 11:30 AM CDT): Due to the silent ischemia, CABG in 2003, he needs an aggressive evaluation. Nephrolithiasis 01/04/2019 Overview (01/04/2019): Added automatically from request for surgery [id number] Pacemaker 07/04/2017 Overview (07/04/2017): [employer] DDD Essentio L111 pacemaker implanted on 07/04/17 [...] and mitigation of heart failure. Heart Rhythm 202;20:e17-e91. Class I: In patients with a CIED with a decline in LV function or worsening of HF symptoms attributed to substantial ventricular pacing, GRANTS DIRECTOR with BiV pacing is recommended to improve [...] 6:52 PM CDT): Status post pacemaker placement, [employer] device for second-degree AV block Normal [...] on file Legal Sex Male 8:04 PM CLUTCH REBUILDER Gender Identity Male 07/10/2021 8:31 AM CDT Sexual Orientation Straight 06/12/2021 8: 44 AM CDT Last Filed Vital Signs Vital Sign Reading Time Taken Comments Blood Pressure 124/66 12/14/2024 11:02 AM CDT Pulse 74 12/14/2024 11:02 AM CDT Temperature 37.1 C (98.8 F) 08/15/2024 1:03 PM CLUTCH REBUILDER Respiratory Rate 26 08/15/2024 5:50 PM CLUTCH REBUILDER Oxygen Saturation 96% 12/14/2024 11:02 AM CDT Inhaled Oxygen Concentration - - Weight 103 kg (227 lb) 12/14/2024 11:02 AM CDT Height 172.7 cm (5' 8 ) 08/15/2024 1:03 PM CLUTCH REBUILDER Body Mass Index 34.52 08/15/2024 1:03 PM CLUTCH REBUILDER Plan of Treatment Not on file Medical Devices Implanted Type Area Dragline Engineer Device Identifier Shelf Expiration Date Model / Serial / Lot [employer] Tabby Acuity X4 3.9-5.2fr 2.6fr 86cm Otw Quadripolar Long Straight 4671 - [id number] - [id number] Implanted:Qty: 1 on 08/15/2024 by Wayne Davis MD at [facility] Lead [employer] Tabby [id number] 04/28/2026 [id number] / [id number] / Pacemaker-07/04 Implanted:11/2016 (Quantity not on file) Pacemaker Chest Wall [employer] Tabby Pacemaker Single Chamber Thread Tool Grinder Set Up Operator P Visionist 0.75x4.45x6.17 cm U228 - [id number] - [id number] Implanted:Qty: 1 on 08/15/2024 by Wayne Davis MD at [facility] Pacemaker [employer] Tabby [id number] 06/08/2026 [id number] / [id number] / [employer] [id number] Synergy Xd Monorail 3.5mm 32mm 144cm Delivery System 1 Access - S0 - [id number] Implanted:Qty: 1 on 07/13/2021 by Troy Shipley MD at [facility] Stent [employer]vela Tabby 03/11/2023 [id number] / [id number] / [id number] Description:LAD Explanted Type Area Dragline Engineer Device Identifier Shelf Expiration Date Model / Serial / Lot [employer] [id number] Inlay Prestbury 6fr 28cm Pusher Fluoro Marker Atraumatic Insertion Latex Free - [id number] Implanted:Qty: 1 on 01/17/2019 by Concetta Thurston MD at [facility] Explanted:Qty: 1 on 01/31/2019 by Elvin Carrillo NP Stent Left: Ureter [employer] [id number] 07/13/2023 [id number] / / [id number] Procedures Procedure Name Priority Date/Time Associated Diagnosis Comments LIPID PANEL Routine 12/18/2024 9:41 AM CDT BMP - BASIC METABOLIC PANEL (7) Routine 12/18/2024 9:39 AM CDT DEVICE CHECK - REMOTE Routine 11/26/2024 2:37 PM CLUTCH REBUILDER NICM (nonischemic cardiomyopathy) (HCC) CT ABDOMEN PELVIS WO CONTRAST Schedule Routine, Read Routine (OP Routine) 09/14/2022 9:43 AM CLUTCH REBUILDER Nephrolithiasis from Last 3 Months or Most Recently Relevant to Health Maintenance Results * Lipid panel (12/18/2024 9:41 AM CDT) Blood us Historical Provider LAB BLOOD ORDERABLES Sho l Result * BMP - Basic Metabolic Panel (7) (12/18/2024 9:39 AM CDT) us Historical Provider LAB BLOOD ORDERABLES Sho l Result * DEVICE CHECK - REMOTE (11/26/2024 2:37 PM CLUTCH REBUILDER) Anatomical Region Laterality Modality Other Narrative 11/28/2024 3:49 PM CLUTCH REBUILDER Table formatting from the original result was not included. BiV PACEMAKER CHECK (REMOTE) Patient ID: Drew Newman is a 84 y.o. male. This patient received a [employer] BiV Pacemaker. They had a routine [...] to SOFI Episodes last 60 days/Comments: AF Mcallen 0 % No new ventricular NORMAL DEVICE FUNCTION PROGRAMMED MEDICATIONS: Anti-coagulant(s): Aspirin 81 mg, Xarelto 20 mg daily Anti-arrhythmic(s): Coreg 12.5 mg twice a day PLAN: 1) [employer] BiV Pacemaker evaluation 2) [employer] remote transmission scheduled in 3 months. 3) Programming appropriate for device settings Gisela Butler RN us Wayne Davis MD [facility] PRO CEDURES Final Result * CT Abdomen Pelvis WO Contrast (09/14/2022 9:43 AM CLUTCH REBUILDER) Anatomical Region Laterality Modality Body N/A Computed Tomogra phy 09/15/2022 10:0 0 AM CLUTCH REBUILDER Narrative 09/15/2022 10:11 AM CLUTCH REBUILDER EXAM DESCRIPTION: CT ABDOMEN PELVIS WO CONTRAST [...] Findings Committee. J Am Walter Radiol. 2017 May;14(8):1997-9479. THIS IS AN ELECTRONICALLY VERIFIED FINAL REPORT 09/15/2022 10:11 AM - Electronically signed by Ko Haro M.D. AG: JAMES Report ID: [id number] Reading Location: [id number] Procedure Note Ko Haro MD - 09/15/2022 [...] Findings Committee. J Am Walter Radiol. 2017 May;14(8):4614-6261. THIS IS AN ELECTRONICALLY VERIFIED FINAL REPORT 09/15/2022 10:11 AM - Electronically signed by Ko Haro M.D. AG: JAMES Report ID: [id number] Reading Location: [id number] Elvin Carrillo NP IM CT PROCEDURES Final Result from Last 3 Months or Most Recently Relevant to Health Maintenance Insurance MEDICARE [facility] MEDICARE [facility] MEDICARE [facility] MEDICARE SUPPLEMENT Advance Directives For more information, please contact: [phone] Documents on File Type Date Recorded Patient Construction Checker Expl anation ADVANCE DIRECTIVE 07/04/2017 Advance Di rective Checklist * Full Code (Latest Code Status on File) Date Activated Date Inactivated Comments 07/13/2021 3:49 PM 07/14/2021 2:07 PM Care Teams Aquatic Instructor Relationship Specialty Start Date End Date Say Low MD [address] [facility] [address] [place] [address] PCP - General 02/15/17
--- OUTSIDE RECORDS SUMMARY | 2025-01-26 07:50 | XMS_ITS | Encounter Summary ---
Author Organization [facility] Address [address] [place] [address] Care Team Providers Care Operator Receptionist Name Role Phone Edgar Geiger MD Unavailable Unavailable Say Low MD Primary Care Provider [phone] Encounter Details Date Type Department Care Team (Late st Contact Info) Description 01/12/2018 Lab Requisition [facility] [address] [place] [phone] Kumar Reno MD RETIRED Social History Tobacco Use Types Packs/Day Years Used Date Smoking Tobacco: Former Comments:QUIT SMOKING 30 YEA RS AGO Alcohol Use Standard Drinks/Week Comments No 0 (1 standard drink = 0.6 oz pur e alcohol) Sex and Gender Information Value Date Recorded Sex Assigned at Not on file Legal Sex Male 5:06 AM BLUEPRINT MAKER Gender Identity Not on file Sexual Orientation Not on file documented as of this encounter Plan of Treatment Not on file documented as of this encounter Procedures Procedure Name Priority Date/Time Associated Diagnosis Comments DERMATOPATHOLOGY Routine 01/11/2018 12:0 0 AM CDT documented in this encounter Results * DERMATOPATHOLOGY (01/11/2018 12:00 AM CDT) Case Report Dermatopathology Report Case: [id number] Authorizing Provider: Kumar Reno MD Collected: 01/11/2018 12:00 AM Pathologist: Rhea Gayel MD Received: 01/12/2018 11:39 AM Specimen: Skin, [...] specimen consists of a shave biopsy measuring [id number]. Jar 0. 6:41 PM CDT DERMATOPATHOLOGY LABORATORY Microscopic Description Specimen A. SKIN, right infraclavicular: Sections show hyperkeratosis, papillomatosis, hypergranulosis, and acanthosis. Inflammatory cells are present within the dermis. These histological findings can be seen in a verruca vulgaris or a seborrheic keratosis. 8 6:41 PM CDT DERMATOPATHOLOGY LABORATORY Disclaimer An external and internal positive and negative controls are appropriate for the histochemical, immunohistochemical and immunofluorescence stain(s) in this case (if any), except where stated explicitly. The performance characteristics of the stain(s) cited in this report were developed and its performance characteristic determined by the Dermatopathology Laboratory at [facility]. These tests need not be, and therefore are not, approved by the [place] Food and Drug Administration. The tests are used for clinical purposes. Billing Codes Specimen Charges Stain Charges 56987 1 8 6:41 PM CDT DERMATOPATHOLOGY LABORATORY Embedded Images 8 6:41 PM CDT DERMATOPATHOLOGY LABORATORY Pathology/Cytolog y TISSUE SPECIMEN FROM SKIN / Unknown 01/11/2018 01/12/2018 11:39 AM CDT Kumar Reno MD LAB - PATHOLOGY/CYTOLOGY ORD ERABLES Final Result DERMATOPATHOLOGY LABORATORY [facility] - Department of Dermatology [address] [place] [address], 5th Floor Lab [address] [phone] documented in this encounter Visit Diagnoses Not on filedocumented in this encounter Care Teams Operator Receptionist Relationship Specialty Start Date End Date Say Low MD [address] [place] [phone] PCP - General Internal Medicine 08/14/12 Edgar Geiger MD Cardiovascular Disease 08/14/12 documented as of this encounter
--- OUTSIDE RECORDS SUMMARY | 2025-01-26 07:50 | XMS_ITS | Encounter Summary ---
Author Organization [facility] Address [address] [place] [address] Care Team Providers Care Head Of Visual Merchandising Name Role Phone Say Low MD Primary Care Provider [phone] Unknown, Notinfile Primary Care Provider Unavail able Say Low MD Primary Care Provider [phone] Encounter Details Date Type Department Care Team (Late st Contact Info) Description 09/07/2016 Orders Only [facility] Provider, MD Giovanni [address] [place] [address] Social History Tobacco Use Types Packs/Day Years Used Date Smoking Tobacco: Former Cigarettes Q uit: 10/03/1982 Alcohol Use Standard Drinks/Week Comments No 0 (1 standard drink = 0.6 oz pur e alcohol) Sex and Gender Information Value Date Recorded Sex Assigned at Not on file Legal Sex Male 8:04 PM LINUX PROGRAMMER Gender Identity Male 07/10/2021 8:31 AM [...] on filedocumented in this encounter Care Teams Head Of Visual Merchandising Relationship Specialty Start Date End Date Say Low MD [address] [place] [address] PCP - General 10/13/15 02/10/17 Unknown, Notinfile PCP - General 02/11/17 02/14/17 Say Low MD [address] [place] [address] PCP - General 02/15/17 documented as of this encounter
--- OUTSIDE RECORDS SUMMARY | 2025-01-26 07:50 | XMS_ITS | Encounter Summary ---
Author Organization [facility] Address [address] [facility] [address] [place] [address] Care Team Providers Care Car Coupler Name Role Phone Say Low MD Primary Care Provider [phone] Encounter Details Date Type Department Care Team (Late st Contact Info) Description 02/17/2017 Orders Only [facility] ProviderGiovanni MD [address] [place] [address] Social History Tobacco Use Types Packs/Day Years Used Date Smoking Tobacco: Former Cigarettes Q uit: 10/03/1982 Alcohol Use Standard Drinks/Week Comments No 0 (1 standard drink = 0.6 oz pur e alcohol) Sex and Gender Information Value Date Recorded Sex Assigned at Not on file Legal Sex Male 8:04 PM INSTRUCTIONAL SUPPORT SPECIALIST Gender Identity Male 07/10/2021 8:31 AM [...] filedocumented in this encounter Care Teams Car Coupler Relationship Specialty Start Date End Date Say Low MD [address] [facility] [address] [place] [address] PCP - General 02/15/17 documented as of this encounter
--- OUTSIDE RECORDS SUMMARY | 2025-01-26 07:50 | XMS_ITS | Encounter Summary ---
Author Organization [facility] Address [address] [place] [address] Care Team Providers Care Family Preservation Caseworker Name Role Phone Say Low MD Primary Care Provider [phone] Unknown, Notinfile Primary Care Provider Unavail able Say Low MD Primary Care Provider [phone] Encounter Details Date Type Department Care Team (Late st Contact Info) Description 09/08/2016 Orders Only [facility] Provider, MD Giovanni [address] [place] [address] Social History Tobacco Use Types Packs/Day Years Used Date Smoking Tobacco: Former Cigarettes Q uit: 10/03/1982 Alcohol Use Standard Drinks/Week Comments No 0 (1 standard drink = 0.6 oz pur e alcohol) Sex and Gender Information Value Date Recorded Sex Assigned at Not on file Legal Sex Male 8:04 PM SOCK IRONER Gender Identity Male 07/10/2021 8:31 AM CDT [...] on filedocumented in this encounter Care Teams Family Preservation Caseworker Relationship Specialty Start Date End Date Say Low MD [address] [place] [address] PCP - General 10/13/15 02/10/17 Unknown, Notinfile PCP - General 02/11/17 02/14/17 Say Low MD [address] [place] [address] PCP - General 02/15/17 documented as of this encounter
--- OUTSIDE RECORDS SUMMARY | 2025-01-26 07:50 | XMS_ITS | Clinical Summary ---
Author Organization [facility] Address [address] [place] [address] Care Team Providers Care Landscape Laborer Name Role Phone Say Low MD Primary Care Provider [phone] Allergies No known active allergies Medications tamsulosin [...] checks when necessary. The patient has a [id number] score of 4 (annualized risk of stroke 4%). I have therefore recommended continued anticoagulation for thromboprophylaxis. 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 I did check, the [employer] wraps are are coming to [facility]. So I think he should be able to get his MRI done. Preoperative cardiovascular examination 05/01/20 Assessment & Plan (05/01/2019 11:30 AM CDT): Due to the silent ischemia, CABG in 2003, he needs an aggressive evaluation. Nephrolithiasis 01/04/2019 Overview (01/04/2019): Added automatically from request for surgery [id number] Pacemaker 07/04/2017 Overview (07/04/2017): [employer] DDD Essentio L111 pacemaker implanted on [...] office will make the appropriate arrangements. From: Herbert MK, Rios KK, Bernard C et al. 2022 HRS/APHRS/LAHRS guideline on cardiac physiologic pacing for the avoidance and mitigation of heart failure. Heart Rhythm 2022;20:e17-e91. Class I: In patients with a CIED with a decline in LV function or worsening of HF symptoms attributed to substantial ventricular pacing, FOOD ASSEMBLER with BiV pacing is recommended to improve [...] 6:52 PM CDT): Status post pacemaker placement, [employer] device for second-degree AV block Normal [...] Type Department Care Team Description 01/03/2025 Telephone [facility] Cardiology [address] [place] [address] [address] [address] Shiva Anne MD 12/18/2024 Orders Only [facility] Cardiology [address] [place] [address] [address] [place] [address] ProviderGiovanni MD 12/14/2024 10:45 AM CDT Office Visit [address] [place] [address] Shiva Anne MD CAD S/P percutaneous coronary angioplasty (Primary Dx); NICM (nonischemic cardiomyopathy) ([facility]); Hx of CABG; Coronary artery disease involving coronary bypass graft of belkofski heart with angina pectoris; History of percutaneous coronary intervention; Paroxysmal atrial fibrillation ([facility]); Status post biventricular pacemaker 12/14/[address], [place] [address] Shiva Anne MD 12/06/[address], [place] [address] Shiva Anne MD 11/26/2024 12:00 PM PRACTICE MANAGEMENT CONSULTANT Ancillary Procedure [facility] [address] [facility] [address], [place] [address] Pacemaker (Primary Dx); NICM (nonischemic cardiomyopathy) ([facility]) 11/14/[address], [place] [address] Shiva Anne MD from Last 3 Months [...] file Legal Sex Male 8:04 PM PRACTICE MANAGEMENT CONSULTANT Gender Identity Male 07/10/2021 8:31 AM CDT Sexual Orientation Straight 06/12/2021 8: 44 AM CDT Obstetrics History Last Filed Vital Signs Vital Sign Reading Time Taken Comments Blood Pressure 124/66 12/14/2024 11:02 AM CDT Pulse 74 12/14/2024 11:02 AM CDT Temperature 37.1 C (98.8 F) 08/15/2024 1:03 PM PRACTICE MANAGEMENT CONSULTANT Respiratory Rate 26 08/15/2024 5:50 PM PRACTICE MANAGEMENT CONSULTANT Oxygen Saturation 96% 12/14/2024 11:02 AM CDT Inhaled Oxygen Concentration - - Weight 103 kg (227 lb) 12/14/2024 11:02 AM CDT Height 172.7 cm (5' 8 ) 08/15/2024 1:03 PM PRACTICE MANAGEMENT CONSULTANT Body Mass Index 34.52 08/15/2024 1:03 PM PRACTICE MANAGEMENT CONSULTANT Plan of Treatment Health Maintenance Due Date [...] 01/04/2019, 02/11/2017 Medical Devices Implanted Type Area Squeegee Finisher Device Identifier Shelf Expiration Date Model / Serial / Lot [employer] Tabby Acuity X4 3.9-5.2fr 2.6fr 86cm Otw Quadripolar Long Straight 4671 - [id number] - [id number] Implanted:Qty: 1 on 08/15/2024 by Wayne Davis MD at [facility] Lead [employer] Tabby [id number] 04/28/2026 [id number] / [id number] / Pacemaker-07/04 Implanted:11/2016 (Quantity not on file) Pacemaker Chest Wall [employer] Tabby Pacemaker Single Chamber Clinical Medical Transcriptionist P Visionist 0.75x4.45x6.17 cm U228 - [id number] - [id number] Implanted:Qty: 1 on 08/15/2024 by Wayne Davis MD at [facility] Pacemaker [employer] Tabby [id number] 06/08/2026 [id number] / [id number] / [employer] Tabby [id number] Synergy Xd Monorail 3.5mm 32mm 144cm Delivery System 1 Access - S0 - [id number] Implanted:Qty: 1 on 07/13/2021 by Troy Shipley MD at [facility] Stent [employer] Tabby 03/11/2023 [id number] / 0 / [id number] Description:LAD Explanted Type Area Squeegee Finisher Device Identifier Shelf Expiration Date Model / Serial / Lot [employer] [id number] Inlay Orion 6fr 28cm Pusher Fluoro Marker Atraumatic Insertion Latex Free - [id number] Implanted:Qty: 1 on 01/17/2019 by Concetta Thurston MD at [facility] Explanted:Qty: 1 on 01/31/2019 by Elvin Carrillo NP Stent Left: Ureter [employer] [id number] 07/13/2023 [id number] / / [id number] Procedures Procedure Name Priority Date/Time Associated Diagnosis Comments LIPID PANEL Routine 12/18/2024 9:41 AM CDT BMP - BASIC METABOLIC PANEL (7) Routine 12/18/2024 9:39 AM CDT DEVICE CHECK - REMOTE Routine 11/26/2024 2:37 PM PRACTICE MANAGEMENT CONSULTANT NICM (nonischemic cardiomyopathy) (HCC) CT ABDOMEN PELVIS WO CONTRAST Schedule Routine, Read Routine (OP Routine) 09/14/2022 9:43 AM PRACTICE MANAGEMENT CONSULTANT Nephrolithiasis from Last 3 Months or Most Recently Relevant to Health Maintenance Results * Lipid panel (12/18/2024 9:41 AM CDT) Blood us Historical Provider MD LAB BLOOD ORDERABLES Sho l Result * BMP - Basic Metabolic Panel (7) (12/18/2024 9:39 AM CDT) us Historical Provider MD LAB BLOOD ORDERABLES Sho l Result * DEVICE CHECK - REMOTE (11/26/2024 2:37 PM PRACTICE MANAGEMENT CONSULTANT) Anatomical Region Laterality Modality Other Narrative 11/28/2024 3:49 PM PRACTICE MANAGEMENT CONSULTANT Table formatting from the original result was not included. BiV PACEMAKER CHECK (REMOTE) Patient ID: Drew Newman is a 84 y.o. male. This patient received a [employer] BiV Pacemaker. They had a routine [...] to SOFI Episodes last 60 days/Comments: AF [place] 0 % No new ventricular NORMAL DEVICE FUNCTION PROGRAMMED MEDICATIONS: Anti-coagulant(s): Aspirin 81 mg, Xarelto 20 mg daily Anti-arrhythmic(s): Coreg 12.5 mg twice a day PLAN: 1) [employer] BiV Pacemaker evaluation 2) [employer] remote transmission scheduled in 3 months. 3) Programming appropriate for device settings Gisela Butler RN us Wayne Davis MD [facility] PRO CEDURES Final Result * CT Abdomen Pelvis WO Contrast (09/14/2022 9:43 AM PRACTICE MANAGEMENT CONSULTANT) Anatomical Region Laterality Modality Body N/A Computed Tomogra phy 09/15/2022 10:0 0 AM PRACTICE MANAGEMENT CONSULTANT Narrative 09/15/2022 10:11 AM PRACTICE MANAGEMENT CONSULTANT EXAM DESCRIPTION: CT ABDOMEN PELVIS WO CONTRAST [...] Findings Committee. J Am Walter Radiol. 2017 May;14(8):0794-3213. THIS IS AN ELECTRONICALLY VERIFIED FINAL REPORT 09/15/2022 10:11 AM - Electronically signed by Ko Haro M.D. AG: JAMES Report ID: [id number] Reading Location: [id number] Procedure Note Ko Haro MD - 09/15/2022 [...] Findings Committee. J Am Walter Radiol. 2017 May;14(8):4193-6874. THIS IS AN ELECTRONICALLY VERIFIED FINAL REPORT 09/15/2022 10:11 AM - Electronically signed by Ko Haro M.D. AG: JAMES Report ID: [id number] Reading Location: [place] [address] Elvin Carrillo NP IM CT PROCEDURES Final Result from Last 3 Months or Most Recently Relevant to Health Maintenance Insurance MEDICARE [facility] MEDICARE [facility] MEDICARE [facility] MEDICARE SUPPLEMENT Advance Directives For more information, please contact: [phone] Documents on File Type Date Recorded Patient Lead Applications Developer Expl anation ADVANCE DIRECTIVE 07/04/2017 Advance Di rective Checklist * Full Code (Latest Code Status on File) Date Activated Date Inactivated Comments 07/13/2021 3:49 PM 07/14/2021 2:07 PM Care Teams Landscape Laborer Relationship Specialty Start Date End Date Say Low MD [address] [place] [address] PCP - General 02/15/17
--- OUTSIDE RECORDS SUMMARY | 2025-01-26 07:50 | XMS_ITS | Clinical Summary ---
Author Organization [facility] [employer] Address [address] [place] [address] Care Team Providers Care Mergers And Acquisitions Banker Name Role Phone Edgar Geiger MD Unavailable Unavailable Say Low MD Primary Care Provider [phone] Source Comments [facility] [employer],non-owned Affiliates and Associated Physician Practices is amultiple site organization consisting of ambulatory clinics and hospital sitesin [place], [place], [place] and [place]. This disclosure is being madepursuant to the Care Everywhere program and may not contain all information available regarding this patient. Last updated 18.[facility] [employer] Allergies No known active allergies Medications * Be aware that medications may not be up to date on this document. Alwaysverify current medications with the patient. omeprazole (PRILOSEC OTC) 20 MG tablet Take 20 mg by mouth daily before breakfast. Active metFORMIN (GLUCOPHAGE) 1000 MG tablet Take 1,000 mg by mouth 2 times daily with morning and evening meal. Active Erwin-3 Fatty Acids (TH OMEGA-3 FISH OIL) 1000 MG CAPS Take by mouth 2 times daily. Active allopurinol (ZYLOPRIM) TABS Take 150 mg by mouth once daily after breakfast. Active Aspirin 81 MG TBEC Take by mouth. 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 Gender Identity Not on file Sexual Orientation [...] - 1-dose 75+ series) 2017 COVID-19 VACCINE (1 - 2023-2 5 season) 2024 DEPRESSION SCREENING 10/03/2024 INFLUENZA VACCINE (Season Ended) 2025 HEPATITIS B VACCINE Aged Out No longe [...] on patient's age to complete this topic Insurance MEDICARE ANTHEM ANTHEM Member Subscriber Plan / Payer (Ef fective for All Dates) Name:NardaalexandraDrew rangel Relation to Subscriber:Self Name:Drew Newman Payer ID:[id number] (NAIC) Type:Commercial Address: [place] [id number] SELF PAY NO INSURANCE Member Subscriber Plan / Payer (Ef fective for All Dates) Name:Mellisa Drew G Member ID:Not on file Relation to Subscriber:Not on file Name:DREW NEWMAN Subscriber ID:Not on file (Home) Address: [address] [place] [address] Payer ID:Not on file Group ID:Not on file Type:Self Pay Address: [place], [place] MEDICARE Care Teams Mergers And Acquisitions Banker Relationship Specialty Start Date End Date Say Low MD [address] [place] [address] PCP - General Internal Medicine 08/14/12 Edgar Geiger MD Cardiovascular Disease 08/14/12
--- OUTSIDE RECORDS SUMMARY | 2025-01-26 07:50 | XMS_ITS | Encounter Summary ---
Author Organization [facility] Address [address] [place] [address] Care Team Providers Care Color Separation Photographer Name Role Phone Edgar Geiger MD Unavailable Unavailable Say Low MD Primary Care Provider [phone] Encounter Details Date Type Department Care Team (Late st Contact Info) Description 01/30/2018 Lab Requisition [facility] Derm[facility] [address] [place] [address] Kumar Reno MD RETIRED Social History Tobacco Use Types Packs/Day Years Used Date Smoking Tobacco: Former Comments:QUIT SMOKING 30 YEA RS AGO Alcohol Use Standard Drinks/Week Comments No 0 (1 standard drink = 0.6 oz pur e alcohol) Sex and Gender Information Value Date Recorded Sex Assigned at Not on file 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 The specimen consists of a [id number], 80v04l2io excision of skin. The specimen is serially sectioned and a patient accounting representative section is submitted in cassette 1. [...] characteristic determined by the Dermatopathology Laboratory at [facility]. These tests need not be, and therefore are not, approved by the [place] Food and Drug Administration. The tests are used for clinical purposes. Billing Codes Specimen Charges Stain Charges 06052 1 4:54 PM CDT DERMATOPATHOLOGY LABORATORY Embedded Images 4:54 PM CDT DERMATOPATHOLOGY LABORATORY Pathology/Cytolog y TISSUE SPECIMEN FROM SKIN / Unknown 01/27/2018 01/30/2018 11:34 AM CDT us Kumar Reno MD LAB - PATHOLOGY/CYTOLOGY ORD ERABLES Final Result DERMATOPATHOLOGY LABORATORY [facility] - Department of Dermatology [address] [place] [address] 5th Floor Lab [address] [phone] documented in this encounter Visit Diagnoses Not on filedocumented in this encounter Care Teams Color Separation Photographer Relationship Specialty Start Date End Date Say Low MD [address] [place] [address] PCP - General Internal Medicine 08/14/12 Edgar Geiger MD Cardiovascular Disease 08/14/12 documented as of this encounter
--- OUTSIDE RECORDS SUMMARY | 2025-01-26 07:50 | XMS_ITS | Encounter Summary ---
Author Organization [facility] Address [address] [place] [address] Care Team Providers Care Medical Liaison Name Role Phone Say Low MD Primary Care Provider [phone] Unknown, Notinfile Primary Care Provider Unavail able Say Low MD Primary Care Provider [phone] Encounter Details Date Type Department Care Team (Late st Contact Info) Description 10/01/2016 Orders Only Arrhythmia Center Provider, MD [facility] [place] [address] Social History Tobacco Use Types Packs/Day Years Used Date Smoking Tobacco: Former Cigarettes Q uit: 10/03/1982 Alcohol Use Standard Drinks/Week Comments No 0 (1 standard drink = 0.6 oz pur e alcohol) Sex and Gender Information Value Date Recorded Sex Assigned at Not on file 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
--- OUTSIDE RECORDS SUMMARY | 2025-01-26 07:51 | XMS_ITS | Clinical Summary ---
Author Organization [facility] Address [address] [place] [address] Phone Care Team Providers Care Director Of Direct Marketing Name Role Phone Say Low MD Primary Care Provider [phone] Allergies No known active allergies Medications allopurinol (ZYLOPRIM) 300 MG tablet Take 0.5 tablets by mouth daily 12/15/2019 Active aspirin EC 81 MG EC tablet 81 mg 11/17/2015 Active losartan (COZAAR) 100 MG tablet Take 100 mg by mouth 1 (one) time each day 10/01/2020 Active multivitamine, geriatric, (CENTRUM SILVER) tablet 1 tab daily 09/10/2015 Ac tive omega-3 (FISH OIL) 1000 MG capsule 1 capsule daily 09/10/2015 Active omeprazole (PriLOSEC) [address] capsule Take [...] MCG (5000 UT) capsule Take by mouth Active Xarelto 20 MG tablet 04/27/2021 Active carvedilol (COREG) 25 MG tablet Take 25 mg by mouth every 12 (twelve) hours 04/01/2021 Active Synjardy XR 5-1000 MG tablet sustained-relea se 24 hour 05/01/2021 Active HYDROcodone-chrsitel taminophen (NORCO) 5-325 MG per tablet TAKE 1 [...] at that time. I did check, the [employer] wraps are are coming to [facility]. So I think he should be able to get his MRI done. 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 Davis Benign essential hypertension 08/14/2012 History of coronary artery bypass grafting 08/14 Urinary tract infection 06/20/2012 Immunizations Immunization Administration Dates Next Due Influenza TIV (IM) [...] at Not on file Legal Sex Male 7:57 AM MDT Gender Identity Not on file Sexual Orientation [...] Comments Pneumococcal PPSV23/PCV13 65 + Years / Low and Medium Risk (1 of 4 - PCV) 1992 Influenza Vaccine (Season Ended) 2025 Insurance MEDICARE GENERIC BLUE CROSS Care Teams Director Of Direct Marketing Relationship Specialty Start Date End Date Say Low MD [address] [place] [address] PCP - General Internal Medicine 12/18/20
[2025-01-26 08:16] LABS: Basophils Percent Auto 0.2 % (0.2-1.2); Eosinophils Absolute Auto 0.3 K/mm3 (0-0.3); Hematocrit 41.6 % (42.0-52.0); Hemoglobin 12.7 g/dL (14.0-18.0); Immature Granulocyte Absolute 0.03 K/mm3 (0.00-0.031); Immature Granulocyte Percent A 0.4 % (0-0.5); Lymphocytes Absolute Auto 1.34 K/mm3 (0.9-3.2); Mean Corpuscular HGB Conc 30.5 g/dl (32-36); Mean Corpuscular Hemoglobin 29.9 pg (26-34); Mean Corpuscular Volume 97.9 fl (80-100); Mean Platelet Volume 10.6 fl (7.4-10.4); Monocytes Absolute Auto 0.8 K/mm3 (0.1-0.6); Monocytes Percent Auto 9.5 % (2.6-8.5); Neutrophils Absolute Auto 5.8 K/mm3 (1.3-6.7); Neutrophils Percent Auto 69.9 % (45.5-73.1); Platelet Count Result 205 k/mm3 (150-375); Red Blood Count 4.25 M/mm3 (4.6-6.20); Red Cell Distribution Width 15.7 % (11.5-14.5); White Blood Count 8.4 K/mm3 (4.5-10.0)
[2025-01-26 08:34] LABS: Alanine Aminotransferase 22 U/L (6-50); Alkaline Phosphatase 84 U/L (38-126); Anion Gap 6 mmol/L (4-12); Aspartate Amino Transferase 28 U/L (17-59); Bilirubin,Total 0.8 mg/dL (0.2-1.3); Blood Urea Nitrogen 65 mg/dL (9-20); Calcium 8.7 mg/dL (8.4-10.2); Carbon Dioxide 24 mmol/L (22-30); Chloride 108 mmol/L (98-107); Cholesterol 128 mg/dL (0-200); Estimated Glomerular Filt Rate 29; Glucose 120 mg/dL (65-110); HDL Direct 47 mg/dL; Potassium 5.1 mmol/L (3.4-5.0); Sodium 138 mmol/L (137-145); Triglycerides 100 mg/dL (<150)
[2025-01-26 08:35] LABS: Iron 99 ug/dL (49-181)
[2025-01-26 08:45] LABS: Percent Iron Saturation 23 % (20-50)
[2025-01-26 08:46] LABS: LDL Cholesterol Direct 53 mg/dL
[2025-01-26 10:26] LABS: Free T4 Free Thyroxine 0.95 ng/dL (0.78-2.19)
[2025-01-26 10:53] LABS: Hemoglobin A1C 6.3 % (<5.7)
== END 2025-01-26 07:49 | disposition home or self-care (01) ==
LOC: ANHLAB 07:49
PROVIDERS: PCP Internal Medicine; Visit Provider Internal Medicine
DX: E78.2 Mixed hyperlipidemia (principal); I10 Essential (primary) hypertension; Z79.899 Other long term (current) drug therapy; Z13.29 Encounter for screening for other suspected endocrine disorder; D64.9 Anemia, unspecified; E11.9 Type 2 diabetes mellitus without complications; E55.9 Vitamin D deficiency, unspecified
CPT/HCPCS: 36415; 80053; 80061; 82306; 82728; 83036; 83540; 83550; 84439; 84443; 85025

== ENCOUNTER 2025-02-07 08:11 | Outpatient (CLI) | payer MEDICARE, SELFPAY ==
--- NOTE | ~2025-02-07 | CT_ITS ---
Non-contrast CT scan of the Abdomen Clinical indication: Ventral hernia Technique: 2.5 mm axial scans were obtained through the abdomen without intravenous or oral contrast . Dose reduction technique was used on this scan by utilizing automated exposure control and iterativ e reconstruction technique. The dose-length product (DLP) was 675.23 mGy-cm. Findings: Images through the lung bases reveal mild bibasilar chronic interstitial change versus ate lectatic change. Cardiomegaly noted with pacemaker device probably present. Small bilateral nonobstructing renal stones are present, measuring up to 5 mm. Large left renal cyst present. No hydronephrosis evident on either side. Mildly nodular contour of liver suggests cirrhotic change. No focal hepatic mass seen. The spleen, pa ncreas, gallbladder, and adrenals appear normal. There are atherosclerotic calcifications of the aort a. . There is a small umbilical hernia, containing one wall of a focal bend of small bowel.. No ascites. Impression: Small umbilical hernia containing one wall of a focal small bowel loop. Bilateral nephrolithiasis, as above. Suspected cirrhotic change of the liver. Mild bibasilar chronic interstitial change. Cardiomegaly. Reviewed, dictated and finalized at location M. Impression: Small umbilical hernia containing one wall of a focal small bowel loop. Bilateral nephrolithiasis, as above. Suspected cirrhotic change of the liver. Mild bibasilar chronic interstitial change. Cardiomegaly.
--- OUTSIDE RECORDS SUMMARY | 2025-02-07 08:20 | XMS_ITS | Clinical Summary ---
Author Organization [facility] Address [address] [place] [id number] Phone Care Team Providers Care Postdoctoral Research Associate Name Role Phone Say Low MD Primary Care Provider [phone] Allergies No known active allergies Medications allopurinol [...] tablet sustained-relea se 24 hour 05/01/2021 Active HYDROcodone-christel taminophen (NORCO) 5-325 MG per tablet TAKE [...] at that time. I did check, the [employer] wraps are are coming to [facility]. So I think he should be able to get his MRI done. 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
--- OUTSIDE RECORDS SUMMARY | 2025-02-07 08:20 | XMS_ITS | Encounter Summary ---
Author Organization [facility] Address [address] [place] [address] Care Team Providers Care Hoop Riveter Name Role Phone Say Low MD Primary Care Provider [phone] Unknown, Notinfile Primary Care Provider Unavail able Say Low MD Primary Care Provider [phone] Encounter Details Date Type Department Care Team (Late st Contact Info) Description 09/07/2016 Orders Only Arrhythmia Center Provider, MD Giovanni [address] [place] [address] Social History Tobacco Use Types Packs/Day Years Used Date Smoking Tobacco: Former Cigarettes Q uit: 10/03/1982 Alcohol Use Standard Drinks/Week Comments No 0 (1 standard drink = 0.6 oz pur e alcohol) Sex and Gender Information Value Date Recorded Sex Assigned at Not on file 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
--- OUTSIDE RECORDS SUMMARY | 2025-02-07 08:20 | XMS_ITS | Referral Summary ---
Author Organization [facility] Address [address] [place] [address] Care Team Providers Care Licensed Massage Practitioner Name Role Phone Say Low MD Primary Care Provider [phone] Encounters Date Type Department Care Team Description 01/03/2025 Telephone [facility] Cardiology [address] [place] [phone] Shiva Anne MD 12/18/2024 Orders Only [facility] Cardiology [address] [place] [phone] ProviderGiovanni MD 12/14/2024 Telephone [facility] Cardiology [address] [place] [phone] Shiva Anne MD 12/14/2024 10:45 AM CDT Office Visit [facility] Cardiology [address] [place] [phone] Shiva Anne MD CAD S/P percutaneous coronary angioplasty (Primary Dx); NICM (nonischemic cardiomyopathy) (HCC); Hx of CABG; 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; History of percutaneous coronary intervention; Paroxysmal atrial fibrillation (HCC); Status post biventricular pacemaker 12/06/2024 Telephone [facility] Cardiology [address] [place] [phone] Shiva Anne MD 11/26/2024 12:00 PM MARINE DIESEL TECHNICIAN Ancillary Procedure [facility] [address] [facility] [address] [place] [address] Pacemaker (Primary Dx); NICM (nonischemic cardiomyopathy) (HCC) 11/14/2024 Telephone [facility] Cardiology [address] [facility] [address] [place] [address] Shiva Anne MD from Last [...] checks when necessary. The patient has a [id number] score of 4 (annualized risk of stroke 4%). I have therefore recommended continued anticoagulation for thromboprophylaxis. NICM (nonischemic cardiomyopathy) 07/19/2024 CAD S/P percutaneous coronary angioplasty 2020 Coronary artery disease (CAD) excluded 1 Hx of CABG 02/22/2020 Coronary artery disease invo lving coronary bypass graft of southern ute heart with angina pectoris 02/22/2020 Assessment & [...] at that time. I did check, the [employer] wraps are are coming to [facility]. So I think he should be able to get his MRI done. Preoperative cardiovascular examination 05/01/20 19 Assessment & Plan (05/01/2019 11:30 AM CDT): Due to the silent ischemia, CABG in 2003, he needs an aggressive evaluation. Nephrolithiasis 01/04/2019 Overview (01/04/2019): Added automatically from request for surgery [id number] Pacemaker 07/04/2017 Overview (07/04/2017): Shelby Satomi DDD Essentio L111 pacemaker implanted on 07/04/17 [...] appropriate arrangements. From: Keon GILLESPIE, Gabriel JONES, Bernrad Francisco et al. 2022 HRS/APHRS/LAHRS guideline on cardiac physiologic pacing for the avoidance and mitigation of heart failure. Heart Rhythm 202;20:e17-e91. Class I: In patients with a CIED with a decline in LV function or worsening of HF symptoms attributed to substantial ventricular pacing, SHODDY MILL WORKER with BiV pacing is recommended to improve [...] 6:52 PM CDT): Status post pacemaker placement, [employer] device for second-degree AV block Normal [...] on file Legal Sex Male 8:04 PM MARINE DIESEL TECHNICIAN Gender Identity Male 07/10/2021 8:31 AM CDT Sexual Orientation Straight 06/12/2021 8: 44 AM CDT Last Filed Vital Signs Vital Sign Reading Time Taken Comments Blood Pressure 124/66 12/14/2024 11:02 AM CDT Pulse 74 12/14/2024 11:02 AM CDT Temperature 37.1 C (98.8 F) 08/15/2024 1:03 PM MARINE DIESEL TECHNICIAN Respiratory Rate 26 08/15/2024 5:50 PM MARINE DIESEL TECHNICIAN Oxygen Saturation 96% 12/14/2024 11:02 AM CDT Inhaled Oxygen Concentration - - Weight 103 kg (227 lb) 12/14/2024 11:02 AM CDT Height 172.7 cm (5' 8 ) 08/15/2024 1:03 PM MARINE DIESEL TECHNICIAN Body Mass Index 34.52 08/15/2024 1:03 PM MARINE DIESEL TECHNICIAN Plan of Treatment Not on file Medical Devices Implanted Type Area College Administrator Device Identifier Shelf Expiration Date Model / Serial / Lot [employer] Tabby Acuity X4 3.9-5.2fr 2.6fr 86cm Otw Quadripolar Long Straight 4671 - [id number] - [id number] Implanted:Qty: 1 on 08/15/2024 by Wayne Davis MD at [facility] Lead [employer] Tabby [id number] 04/28/2026 [id number] / [id number] / Pacemaker-07/04 Implanted:11/2016 (Quantity not on file) Pacemaker Chest Wall [employer]M. [employer] Tabby Pacemaker Single Chamber Seismograph Operator P Visionist 0.75x4.45x6.17 cm U228 - [id number] - [id number] Implanted:Qty: 1 on 08/15/2024 by Wayne Davis MD at [facility] Pacemaker [employer] Tabby [id number] 06/08/2026 [id number] / [id number] / [employer] Tabby [id number] Synergy Xd Monorail 3.5mm 32mm 144cm Delivery System 1 Access - S0 - [id number] Implanted:Qty: 1 on 07/13/2021 by Troy Shipley MD at [facility] Stent [employer] Tabby 03/11/2023 [id number] / 0 / [id number] Description:LAD Explanted Type Area College Administrator Device Identifier Shelf Expiration Date Model / Serial / Lot [employer] [id number] Inlay [place] 6fr 28cm Pusher Fluoro Marker Atraumatic Insertion Latex Free - [id number] Implanted:Qty: 1 on 01/17/2019 by Concetta Thurston MD at [facility] Explanted:Qty: 1 on 01/31/2019 by Elvin Carrillo NP Stent Left: Ureter [employer] [id number] 07/13/2023 [id number] / / [id number] Procedures Procedure Name Priority Date/Time Associated Diagnosis Comments LIPID PANEL Routine 12/18/2024 9:41 AM CDT BMP - BASIC METABOLIC PANEL (7) Routine 12/18/2024 9:39 AM CDT DEVICE CHECK - REMOTE Routine 11/26/2024 2:37 PM MARINE DIESEL TECHNICIAN NICM (nonischemic cardiomyopathy) (HCC) CT ABDOMEN PELVIS WO CONTRAST Schedule Routine, Read Routine (OP Routine) 09/14/2022 9:43 AM MARINE DIESEL TECHNICIAN Nephrolithiasis from Last 3 Months or Most Recently Relevant to Health Maintenance Results * Lipid panel (12/18/2024 9:41 AM CDT) Blood us Historical Provider LAB BLOOD ORDERABLES Sho l Result * BMP - Basic Metabolic Panel (7) (12/18/2024 9:39 AM CDT) us Historical Provider LAB BLOOD ORDERABLES Sho l Result * DEVICE CHECK - REMOTE (11/26/2024 2:37 PM MARINE DIESEL TECHNICIAN) Anatomical Region Laterality Modality Other Narrative 11/28/2024 3:49 PM MARINE DIESEL TECHNICIAN Table formatting from the original result was not included. BiV PACEMAKER CHECK (REMOTE) Patient ID: Drew Newman is a 84 y.o. male. This patient received a [employer] BiV Pacemaker. They had a routine [...] to SOFI Episodes last 60 days/Comments: AF [place] 0 % No new ventricular NORMAL DEVICE FUNCTION PROGRAMMED MEDICATIONS: Anti-coagulant(s): Aspirin 81 mg, Xarelto 20 mg daily Anti-arrhythmic(s): Coreg 12.5 mg twice a day PLAN: 1) [employer] BiV Pacemaker evaluation 2) [employer] remote transmission scheduled in 3 months. 3) Programming appropriate for device settings Gisela Butler RN us Wayne Davis MD CV CARDIAC SERVICES PRO CEDURES Final Result * CT Abdomen Pelvis WO Contrast (09/14/2022 9:43 AM MARINE DIESEL TECHNICIAN) Anatomical Region Laterality Modality Body N/A Computed Tomogra phy 09/15/2022 10:0 0 AM MARINE DIESEL TECHNICIAN Narrative 09/15/2022 10:11 AM MARINE DIESEL TECHNICIAN EXAM DESCRIPTION: CT ABDOMEN PELVIS WO CONTRAST [...] Findings Committee. J Am Walter Radiol. 2017 May;14(8):3237-0004. THIS IS AN ELECTRONICALLY VERIFIED FINAL REPORT 09/15/2022 10:11 AM - Electronically signed by Ko Haro M.D. AG: JAMES Report ID: [id number] Reading Location: [id number] Procedure Note Ko Haro MD - 09/15/2022 [...] Findings Committee. J Am Walter Radiol. 2017 May;14(8):1270-5911. THIS IS AN ELECTRONICALLY VERIFIED FINAL REPORT 09/15/2022 10:11 AM - Electronically signed by Ko Haro M.D. AG: JAMES Report ID: [id number] Reading Location: [id number] Elvin Carrillo NP IM CT PROCEDURES Final Result from Last 3 Months or Most Recently Relevant to Health Maintenance Insurance MEDICARE [facility] MEDICARE [facility] MEDICARE [facility] MEDICARE SUPPLEMENT Advance Directives For more information, please contact: [phone] Documents on File Type Date Recorded Patient Central Supply Nurse Expl anation ADVANCE DIRECTIVE 07/04/2017 Advance Di rective Checklist * Full Code (Latest Code Status on File) Date Activated Date Inactivated Comments 07/13/2021 3:49 PM 07/14/2021 2:07 PM Care Teams Licensed Massage Practitioner Relationship Specialty Start Date End Date Say Low MD [address] [facility] [address] [place] [address] PCP - General 02/15/17
--- OUTSIDE RECORDS SUMMARY | 2025-02-07 08:20 | XMS_ITS | Encounter Summary ---
Author Organization [facility] Address [address] [place] [address] Care Team Providers Care Field Artillery Radar Operator Name Role Phone Say Low MD Primary Care Provider [phone] Unknown, Notinfile Primary Care Provider Unavail able Say Low MD Primary Care Provider [phone] Encounter Details Date Type Department Care Team (Late st Contact Info) Description 10/01/2016 Orders Only Arrhythmia Center Provider, MD Giovanni [facility] [place] [address] Social History Tobacco Use Types Packs/Day Years Used Date Smoking Tobacco: Former Cigarettes Q uit: 10/03/1982 Alcohol Use Standard Drinks/Week Comments No 0 (1 standard drink = 0.6 oz pur e alcohol) Sex and Gender Information Value Date Recorded Sex Assigned at Not on file Legal Sex Male 8:04 PM COMMUNICATIONS TECHNOLOGIST Gender Identity Male 07/10/2021 8:31 AM [...] on filedocumented in this encounter Care Teams Field Artillery Radar Operator Relationship Specialty Start Date End Date Say Low MD [address] [place] [address] PCP - General 10/13/15 02/10/17 Unknown, Notinfile PCP - General 02/11/17 02/14/17 Say Low MD [address] [place] [address] PCP - General 02/15/17 documented as of this encounter
--- OUTSIDE RECORDS SUMMARY | 2025-02-07 08:20 | XMS_ITS | Clinical Summary ---
Author Organization [facility] Address [address] [place] [address] Care Team Providers Care Wood Finisher Name Role Phone Say Low MD Primary Care Provider [phone] Allergies No known active allergies Medications tamsulosin [...] checks when necessary. The patient has a HMZ6IP6-PPUm score of 4 (annualized risk of stroke 4%). I have therefore recommended continued anticoagulation for thromboprophylaxis. NICM (nonischemic cardiomyopathy) 07/19/2024 CAD S/P percutaneous coronary angioplasty 2020 Coronary artery disease (CAD) excluded Hx of CABG 02/22/2020 Coronary artery disease invo lving coronary bypass graft of apache heart with angina pectoris 02/22/2020 Assessment & [...] at that time. I did check, the [employer] wraps are are coming to [facility]. So I think he should be able to get his MRI done. Preoperative cardiovascular examination 05/01/20 Assessment & Plan (05/01/2019 11:30 AM CDT): Due to the silent ischemia, CABG in 2003, he needs an aggressive evaluation. Nephrolithiasis 01/04/2019 Overview (01/04/2019): Added automatically from request for surgery [id number] Pacemaker 07/04/2017 Overview (07/04/2017): [employer] DDD Essentio L111 pacemaker implanted on [...] HF symptoms attributed to substantial ventricular pacing, RELIGIOUS EDUCATION TEACHER with BiV pacing is recommended to improve [...] 6:52 PM CDT): Status post pacemaker placement, [employer] device for second-degree AV block Normal [...] Department Care Team Description 01/03/2025 Telephone [facility] Cardiology [address] [place] [address] [address] [address] Shiva Anne MD 12/18/2024 Orders Only [facility] Cardiology [address] [place] [address] [address] [place] [address] ProviderGiovanni MD 12/14/2024 10:45 AM CDT Office Visit [address] [place] [address] Shiva Anne MD CAD S/P percutaneous coronary angioplasty (Primary Dx); NICM (nonischemic cardiomyopathy) ([facility]); Hx of CABG; Coronary artery disease involving coronary bypass graft of apache heart with angina pectoris; History of percutaneous coronary intervention; Paroxysmal atrial fibrillation ([facility]); Status post biventricular pacemaker 12/14/[address], [place] [address] Shiva Anne MD 12/06/[address], [place] [address] Shiva Anne MD 11/26/2024 12:00 PM DIVISIONAL MERCHANDISING MANAGER Ancillary Procedure Arrhythmia Center [address] [address] Pacemaker (Primary Dx); NICM (nonischemic cardiomyopathy) ([facility]) 11/14/[address], [place] [address] Shiva Anne MD from Last 3 Months [...] on file Legal Sex Male 8:04 PM DIVISIONAL MERCHANDISING MANAGER Gender Identity Male 07/10/2021 8:31 AM CDT Sexual Orientation Straight 06/12/2021 8: 44 AM CDT Obstetrics History Last Filed Vital Signs Vital Sign Reading Time Taken Comments Blood Pressure 124/66 12/14/2024 11:02 AM CDT Pulse 74 12/14/2024 11:02 AM CDT Temperature 37.1 C (98.8 F) 08/15/2024 1:03 PM DIVISIONAL MERCHANDISING MANAGER Respiratory Rate 26 08/15/2024 5:50 PM DIVISIONAL MERCHANDISING MANAGER Oxygen Saturation 96% 12/14/2024 11:02 AM CDT Inhaled Oxygen Concentration - - Weight 103 kg (227 lb) 12/14/2024 11:02 AM CDT Height 172.7 cm (5' 8 ) 08/15/2024 1:03 PM DIVISIONAL MERCHANDISING MANAGER Body Mass Index 34.52 08/15/2024 1:03 PM DIVISIONAL MERCHANDISING MANAGER Plan of Treatment Health Maintenance Due Date [...] 01/04/2019, 02/11/2017 Medical Devices Implanted Type Area Welding Machine Operator Helper Arc Device Identifier Shelf Expiration Date Model / Serial / Lot [employer] Tabby Acuity X4 3.9-5.2fr 2.6fr 86cm Otw Quadripolar Long Straight 4671 - [id number] - [id number] Implanted:Qty: 1 on 08/15/2024 by Wayne Davis MD at [facility] Lead [employer] Tabby [id number] 04/28/2026 [id number] / [id number] / Pacemaker-07/04 Implanted:11/2016 (Quantity not on file) Pacemaker Chest Wall [employer] C[employer]M. [employer] Tabby Pacemaker Single Chamber Bridge Builder P Visionist 0.75x4.45x6.17 cm U228 - [id number] - [id number] Implanted:Qty: 1 on 08/15/2024 by Wayne Davis MD at [facility] Pacemaker [employer] Tabby [id number] 06/08/2026 U228 / [id number] / [employer] Tabby [id number] Synergy Xd Monorail 3.5mm 32mm 144cm Delivery System 1 Access - S0 - [id number] Implanted:Qty: 1 on 07/13/2021 by Troy Shipley MD at [facility] Stent [employer] Tabby 03/11/2023 [id number] / 0 / [id number] Description:LAD Explanted Type Area Welding Machine Operator Helper Arc Device Identifier Shelf Expiration Date Model / Serial / Lot [employer] [id number] Inlay [place] 6fr 28cm Pusher Fluoro Marker Atraumatic Insertion Latex Free - [id number] Implanted:Qty: 1 on 01/17/2019 by Concetta Thurston MD at [facility] Explanted:Qty: 1 on 01/31/2019 by Elvin Carrillo NP Stent Left: Ureter [employer] [id number] 07/13/2023 [id number] / / [id number] Procedures Procedure Name Priority Date/Time Associated Diagnosis Comments LIPID PANEL Routine 12/18/2024 9:41 AM CDT BMP - BASIC METABOLIC PANEL (7) Routine 12/18/2024 9:39 AM CDT DEVICE CHECK - REMOTE Routine 11/26/2024 2:37 PM DIVISIONAL MERCHANDISING MANAGER NICM (nonischemic cardiomyopathy) (HCC) CT ABDOMEN PELVIS WO CONTRAST Schedule Routine, Read Routine (OP Routine) 09/14/2022 9:43 AM DIVISIONAL MERCHANDISING MANAGER Nephrolithiasis from Last 3 Months or Most Recently Relevant to Health Maintenance Results * Lipid panel (12/18/2024 9:41 AM CDT) Blood us Historical Provider MD LAB BLOOD ORDERABLES Sho l Result * BMP - Basic Metabolic Panel (7) (12/18/2024 9:39 AM CDT) us Historical Provider MD LAB BLOOD ORDERABLES Sho l Result * DEVICE CHECK - REMOTE (11/26/2024 2:37 PM DIVISIONAL MERCHANDISING MANAGER) Anatomical Region Laterality Modality Other Narrative 11/28/2024 3:49 PM DIVISIONAL MERCHANDISING MANAGER Table formatting from the original result was not included. BiV PACEMAKER CHECK (REMOTE) Patient ID: Drew Newman is a 84 y.o. male. This patient received a [employer] BiV Pacemaker. They had a routine [...] to SOFI Episodes last 60 days/Comments: AF [place] 0 % No new ventricular NORMAL DEVICE FUNCTION PROGRAMMED MEDICATIONS: Anti-coagulant(s): Aspirin 81 mg, Xarelto 20 mg daily Anti-arrhythmic(s): Coreg 12.5 mg twice a day PLAN: 1) [employer] BiV Pacemaker evaluation 2) [employer] remote transmission scheduled in 3 months. 3) Programming appropriate for device settings Gisela Butler RN us Wayne Davis MD CV CARDIAC SERVICES PRO CEDURES Final Result * CT Abdomen Pelvis WO Contrast (09/14/2022 9:43 AM DIVISIONAL MERCHANDISING MANAGER) Anatomical Region Laterality Modality Body N/A Computed Tomogra phy 09/15/2022 10:0 0 AM DIVISIONAL MERCHANDISING MANAGER Narrative 09/15/2022 10:11 AM DIVISIONAL MERCHANDISING MANAGER EXAM DESCRIPTION: CT ABDOMEN PELVIS WO [...] Findings Committee. J Am Walter Radiol. 2017 May;14(8):4316-8226. THIS IS AN ELECTRONICALLY VERIFIED FINAL REPORT 09/15/2022 10:11 AM - Electronically signed by Ko Haro M.D. AG: JAMES Report ID: [id number] Reading Location: [id number] Procedure Note Ko Haro MD - 09/15/2022 [...] Findings Committee. J Am Walter Radiol. 2017 May;14(8):3238-4209. THIS IS AN ELECTRONICALLY VERIFIED FINAL REPORT 09/15/2022 10:11 AM - Electronically signed by Ko Haro M.D. AG: JAMES Report ID: [id number] Reading Location: [place] [address] Elvin Carrillo NP IM CT PROCEDURES Final Result from Last 3 Months or Most Recently Relevant to Health Maintenance Insurance MEDICARE [facility] MEDICARE [facility] MEDICARE [facility] MEDICARE SUPPLEMENT Advance Directives For more information, please contact: [phone] Documents on File Type Date Recorded Patient Survey Associate Expl anation ADVANCE DIRECTIVE 07/04/2017 Advance Di rective Checklist * Full Code (Latest Code Status on File) Date Activated Date Inactivated Comments 07/13/2021 3:49 PM 07/14/2021 2:07 PM Care Teams Wood Finisher Relationship Specialty Start Date End Date Say Low MD [address] [place] [address] PCP - General 02/15/17
--- OUTSIDE RECORDS SUMMARY | 2025-02-07 08:20 | XMS_ITS | Encounter Summary ---
Author Organization [facility] Address [address] [place] [address] Care Team Providers Care Burial Needs Salesperson Name Role Phone Edgar Geiger MD Unavailable Unavailable Say Low MD Primary Care Provider [phone] Encounter Details Date Type Department Care Team (Late st Contact Info) Description 01/12/2018 Lab Requisition [facility] [address] [place] [phone] Kumar Reno MD RETIRED Social History Tobacco Use Types Packs/Day Years Used Date Smoking Tobacco: Former Comments:QUIT SMOKING 30 YEA RS AGO Alcohol Use Standard Drinks/Week Comments No 0 (1 standard drink = 0.6 oz pur e alcohol) Sex and Gender Information Value Date Recorded Sex Assigned at Not on file Legal Sex Male 5:06 AM BANDER Gender Identity Not on file Sexual Orientation Not on file documented as of this encounter Plan of Treatment Not on file documented as of this encounter Procedures Procedure Name Priority Date/Time Associated Diagnosis Comments DERMATOPATHOLOGY Routine 01/11/2018 12:0 0 AM CDT documented in this encounter Results * DERMATOPATHOLOGY (01/11/2018 12:00 AM CDT) Case Report Dermatopathology Report Case: [id number] Authorizing Provider: Kumar Reno MD Collected: 01/11/2018 12:00 AM Pathologist: hRea Gayle MD Received: 01/12/2018 11:39 AM Specimen: [...] specimen consists of a shave biopsy measuring [id number]. Jar 0. 6:41 PM CDT DERMATOPATHOLOGY LABORATORY [...] characteristic determined by the Dermatopathology Laboratory at [facility]. These tests need not be, and therefore are not, approved by the [place] Food and Drug Administration. The tests are used for clinical purposes. Billing Codes Specimen Charges Stain Charges 60506 1 8 6:41 PM CDT DERMATOPATHOLOGY LABORATORY Embedded Images 8 6:41 PM CDT DERMATOPATHOLOGY LABORATORY Pathology/Cytolog y TISSUE SPECIMEN FROM SKIN / Unknown 01/11/2018 01/12/2018 11:39 AM CDT Kumar Reno MD LAB - PATHOLOGY/CYTOLOGY ORD ERABLES Final Result DERMATOPATHOLOGY LABORATORY [facility] - Department of Dermatology [address] [place] [address], 5th Floor Lab [address] [phone] documented in this encounter Visit Diagnoses Not on filedocumented in this encounter Care Teams Burial Needs Salesperson Relationship Specialty Start Date End Date Say Low MD [address] [place] [phone] PCP - General Internal Medicine 08/14/12 Edgar Geiger MD Cardiovascular Disease 08/14/12 documented as of this encounter
--- OUTSIDE RECORDS SUMMARY | 2025-02-07 08:20 | XMS_ITS | Encounter Summary ---
Author Organization [facility] Address [address] [place] [address] Care Team Providers Care Multifocal Button Generator Name Role Phone Edgar Geiger MD Unavailable Unavailable Say Low MD Primary Care Provider [phone] Encounter Details Date Type Department Care Team (Late st Contact Info) Description 01/30/2018 Lab Requisition [facility] Care Derm[facility] Lab [address] [place] [phone] Kumar Reno MD RETIRED Social History Tobacco Use Types Packs/Day Years Used Date Smoking Tobacco: Former Comments:QUIT SMOKING 30 YEA RS AGO Alcohol Use Standard Drinks/Week Comments No 0 (1 standard drink = 0.6 oz pur e alcohol) Sex and Gender Information Value Date Recorded Sex Assigned at Not on file Legal Sex Male 5:06 AM MUCK FARMER Gender Identity Not on file Sexual Orientation Not on file documented as of this encounter Plan of Treatment Not on file documented as of this encounter Procedures Procedure Name Priority Date/Time Associated Diagnosis Comments DERMATOPATHOLOGY Routine 01/27/2018 12:0 0 AM CDT documented in this encounter Results * DERMATOPATHOLOGY (01/27/2018 12:00 AM CDT) Case Report Dermatopathology Report Case: [id number] Authorizing Provider: Kumar Reno MD Collected: 01/27/2018 [...] scapula tip. The specimen consists of a [id number], [id number] excision of skin. The specimen is serially sectioned and a customer care representative section is submitted in cassette 1. [...] characteristic determined by the Dermatopathology Laboratory at [facility]. These tests need not be, and therefore are not, approved by the [place] Food and Drug Administration. The tests are used for clinical purposes. Billing Codes Specimen Charges Stain Charges 72747 1 4:54 PM CDT DERMATOPATHOLOGY LABORATORY Embedded Images 4:54 PM CDT DERMATOPATHOLOGY LABORATORY Pathology/Cytolog y TISSUE SPECIMEN FROM SKIN / Unknown 01/27/2018 01/30/2018 11:34 AM CDT us Kumar Reon MD LAB - PATHOLOGY/CYTOLOGY ORD ERABLES Final Result DERMATOPATHOLOGY LABORATORY [facility] - Department of Dermatology [address] [place] [address] 5th Floor Lab [address] [phone] documented in this encounter Visit Diagnoses Not on filedocumented in this encounter Care Teams Multifocal Button Generator Relationship Specialty Start Date End Date Say Low MD [address] [place] [address] PCP - General Internal Medicine 08/14/12 Edgar Geiger MD Cardiovascular Disease 08/14/12 documented as of this encounter
--- OUTSIDE RECORDS SUMMARY | 2025-02-07 08:20 | XMS_ITS | Clinical Summary ---
Author Organization [facility] [employer] Address [address] [place] [address] Care Team Providers Care Coronary Care Unit Nurse Name Role Phone Edgar Geiger MD Unavailable Unavailable Say Low MD Primary Care Provider [phone] Source Comments [facility] [employer],non-owned Affiliates and Associated Physician Practices is amultiple site organization consisting of ambulatory clinics and hospital sitesin [place], [place], [place] and [place]. This disclosure is being madepursuant to the Care Everywhere program and may not contain all information available regarding this patient. Last updated 18.[facility] [employer] Allergies No known active allergies Medications * Be aware that medications may not be up to date on this document. Alwaysverify current medications with the patient. omeprazole (PRILOSEC OTC) 20 MG tablet Take 20 mg by mouth daily before breakfast. Active metFORMIN (GLUCOPHAGE) 1000 MG tablet Take 1,000 mg by mouth 2 times daily with morning and evening meal. 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 Gender Identity Not on file [...] Name:Drew Newman Payer ID:[id number] (NAIC) Type:Commercial Address: [place] [id number] SELF PAY NO INSURANCE Member Subscriber Plan / Payer (Ef fective for All Dates) Name:Mellisa Drew G Member ID:Not on file Relation to Subscriber:Not on file Name:DREW NEWMAN Subscriber ID:Not on file (Home) Address: [address] [place] [address] Payer ID:Not on file Group ID:Not on file Type:Self Pay Address: [place], [place] MEDICARE Care Teams Coronary Care Unit Nurse Relationship Specialty Start Date End Date Say Low MD [address] [place] [address] PCP - General Internal Medicine 08/14/12 Edgar Geiger MD Cardiovascular Disease 08/14/12
--- OUTSIDE RECORDS SUMMARY | 2025-02-07 08:20 | XMS_ITS | Encounter Summary ---
Author Organization [facility] Address [address] [facility] [address] [place] [address] Care Team Providers Care Yield Clerk Name Role Phone Say Low MD Primary Care Provider [phone] Encounter Details Date Type Department Care Team (Late st Contact Info) Description 02/17/2017 Orders Only Arrhythmia Center ProviderGiovanni MD [address] [place] [address] Social History Tobacco Use Types Packs/Day Years Used Date Smoking Tobacco: Former Cigarettes Q uit: 10/03/1982 Alcohol Use Standard Drinks/Week Comments No 0 (1 standard drink = 0.6 oz pur e alcohol) Sex and Gender Information Value Date Recorded Sex Assigned at Not on file 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
--- OUTSIDE RECORDS SUMMARY | 2025-02-07 08:20 | XMS_ITS | Encounter Summary ---
Author Organization [facility] Address [address] [facility] [address] [place] [address] Care Team Providers Care Air Force Pilot Name Role Phone Say Low MD Primary Care Provider [phone] Unknown, Notinfile Primary Care Provider Unavail able Say Low MD Primary Care Provider [phone] Encounter Details Date Type Department Care Team (Late st Contact Info) Description 09/08/2016 Orders Only Arrhythmia Center Provider, MD Giovanni [address] [place] [address] Social History Tobacco Use Types Packs/Day Years Used Date Smoking Tobacco: Former Cigarettes Q uit: 10/03/1982 Alcohol Use Standard Drinks/Week Comments No 0 (1 standard drink = 0.6 oz pur e alcohol) Sex and Gender Information Value Date Recorded Sex Assigned at Not on file 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
[2025-02-07 12:06] LABS: Anion Gap 11 mmol/L (4-12); Blood Urea Nitrogen 51 mg/dL (9-20); Calcium 8.9 mg/dL (8.4-10.2); Carbon Dioxide 23 mmol/L (22-30); Chloride 105 mmol/L (98-107); Estimated Glomerular Filt Rate 33; Glucose 127 mg/dL (65-110); Potassium 4.9 mmol/L (3.4-5.0); Sodium 139 mmol/L (137-145)
== END 2025-02-07 08:12 | disposition home or self-care (01) ==
PROVIDERS: PCP Internal Medicine; Referring Provider Internal Medicine; Visit Provider Surgery
DX: K42.9 Umbilical hernia without obstruction or gangrene (principal); K43.9 Ventral hernia without obstruction or gangrene; N18.9 Chronic kidney disease, unspecified; I51.7 Cardiomegaly
CPT/HCPCS: 36415; 74150; 80048

== ENCOUNTER 2025-04-15 12:36 | Emergency (ER) | payer MEDICARE, SELFPAY ==
--- NOTE | 2025-04-15 12:38 | ED_ITS ---
HPI - Wound/Laceration General Chief Complaint: Wound/Laceration Stated Complaint: fall Source: patient and RN notes reviewed Mode of arrival: ambulatory Limitations: no limitations History of Present Illness HPI narrative: Patient is an 84-year-old male who presents to the [facility] that occurred just prior to arrival. Patient states that he was sitting in a walker in the [facility] and reached down to pull a weed when he fell forward, causing a skin tear to his left elbow. Patient denies hitting his head or loss of consciousness. Patient presents with large skin tear to his left elbow with no active bleeding. Patient has full range of motion of his left upper extremity. He is neurovascularly intact. Patient does report taking Xarelto daily with history of pacemaker. Related Data Home Medications ?Medication ?Instructions ?Recorded ?Confirmed ?Last Taken ?Type aspirin 81 mg tablet 81 mg PO DAILY 08/03/22 03/15/25 12/27/24 History cholecalciferol (vitamin D3) 50 50 mcg PO DAILY 05/17/23 03/15/25 12/27/24 History mcg (2,000 unit) capsule (Vitamin D3) vitamin B complex 1 cap PO DAILY 05/17/23 03/15/25 12/27/24 History spironolactone 25 mg tablet 12.5 mg PO DAILY 05/16/24 03/15/25 12/27/24 History rivaroxaban 15 mg tablet (Xarelto) 15 mg PO DAILY 01/01/25 03/15/25 Unknown History triamcinolone acetonide 0.1 % applic topical 03/15/25 03/15/25 Unknown History topical cream Allergies Allergy/AdvReac Type Severity Reaction Status Date / Time KATLYN Inhibitors AdvReac Intermediate Cough Verified 04/15/25 13:00 Review of Systems Review of Systems: CONSTITUTIONAL: Denies fever, chills, or sweats. EYES: Denies visual changes, redness, or discharge. ENT: Denies otalgia and sore throat CARDIOVASCULAR: Denies chest pain, palpitations, or edema. RESPIRATORY: Denies cough or dyspnea. GASTROINTESTINAL: Denies abdominal pain, nausea, vomiting, or diarrhea. GENITOURINARY: Denies dysuria or hematuria. SKIN: Reports skin tear to left elbow. MUSCULOSKELETAL: Denies back pain, joint pain, or myalgia. NEUROLOGIC: Denies headache, numbness, or weakness. Pertinent positives per HPI. PMFSH Past Medical History Medical History Hypertension Diabetes Congestive heart failure Arthritis Inclusion cyst Venous stasis ulcer Pleuritic chest pain Peripheral edema Vision changes Cellulitis Impacted cerumen of both ears Abnormal results of kidney function studies Bronchitis Fall Onychomycosis Skin lesion UTI (urinary tract infection) Skin lesion Right shoulder pain Right hip pain Pneumonia Chest congestion Cough Kidney stones Personal history of COVID-19 Gastric polyp MACIEJ on CPAP BMI 31.0-31.9,adult Guaiac positive stools Interstitial lung disease Cirrhosis of liver BMI 32.0-32.9,adult History of pneumonia, recurrent DOLAN (dyspnea on exertion) BMI 29.0-29.9,adult BMI 30.0-30.9,adult Hospital discharge follow-up Pneumonia due to COVID-19 virus Elevated troponin Person under investigation for COVID-19 CHF exacerbation Hypoxia Systolic CHF Ringworm Wound of right foot Obesity Anemia Gastroesophageal reflux disease Benign prostatic hyperplasia Anxiety Ascending aortic aneurysm Osteoarthritis Gout History of colon polyps Diastolic congestive heart failure Echocardiogram in 05/2019 showed mild LV ventricular enlargement, mild concentric LVH, moderate apical and apical septal hypokinesis, grade 2 diastolic dysfunction, EF 50%, moderately enlarged left atrium, moderate mitral and mild aortic valve regurgitation. Coronary artery disease Status post three-vessel bypass in 2003. 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 Shingles Mixed hyperlipidemia Surgical History Surgical History History of open reduction and internal fixation (ORIF) procedure Right lower extremity fracture. History of arthroplasty of right knee (~12/23/20) History of arthroscopy of right knee History of tonsillectomy History of colonoscopy with polypectomy History of coronary artery bypass graft x 3 (~2003) History of permanent cardiac pacemaker placement History of lumbar surgery Lumbar laminectomy at several levels with what sounds like foraminectomy as well. Family History Family History Mother Diabetes mellitus Cerebrovascular accident Breast cancer Hypertension Father Acute myocardial infarction Hypertension Bladder cancer Heart disease Grandparent Cancer Hypertension Other Arthritis Social History Social History Social History: Surrogate decision maker: Pilar George, daughter. Code status: Full code. Caffeine-coffee Smoking packs per day: 3 Smoking cigarettes per day: 60.0 Years smoked: 40 Smoking pack-years: 120.00 Smoking status: Former smoker Tobacco type: cigarettes Second hand tobacco smoke exposure: Yes Smoking end date: 10/03/81 Additional smoking assessment comments: Up to 3 packs a day, quit in 1981. Alcohol intake: current Drinks per week: 2 Alcohol use details: No alcohol since 2013. Substance use: never Substance use type: does not use Do You Feel Safe in your Home?: Yes Lack of Transportation: No Lack of Food: Never True Current Housing: I Have Housing Concerned About Future Housing: No Difficulty Paying Gas/Electric Bills: No Difficulty Paying for Meds: No Currently Unemployed: No Education: High School Diploma/GED Difficulty w/ Childcare or Family Care: No Living arrangements: with family Additional living arrangements comments: Resides in [facility], 40+ years. Additional occupation/education comments: Retired. 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 Gender identity (if verbalized by the patient): Male Spiritual care concerns: No Comments At the time of my signature, I reviewed and agree with the nursing past medical, surgical, social, and family history. There is no relevant family history pertinent to the patient complaint. Exam Narrative: GENERAL: This is a well-nourished, well-developed patient, in no apparent distress. HEAD: normocephalic, atraumatic. EYES: Sclera clear/white. Vision is grossly intact. EARS: External ears normal. Hearing grossly intact. NOSE: External nose normal with no obvious nasal discharge, nares without redness, no rhinorrhea. THROAT: Mucous membranes moist, posterior pharynx clear. NECK: Neck supple, non-tender without lymphadenopathy, masses or thyromegaly. CARDIOVASCULAR: Regular rate and rhythm without murmurs, gallops, or rubs. RESPIRATORY: Clear to auscultation. Breath sounds equal bilaterally. No wheezes, rales, or rhonchi. GASTROINTESTINAL: Abdomen soft, non-tender, nondistended. Bowel sounds are active. No hepato-splenomegaly, or palpable masses. No guarding. SKIN: 5 cm superficial skin tear to the left elbow. NEURO: awake, alert, and oriented to person, place and time. There were no obvious focal neurologic abnormalities. EXTREMITIES: No clubbing, cyanosis, or edema. No joint tenderness, effusion, or edema noted. Full range of motion of the left upper extremity. Distal neurovascular and motor status intact. Course Course Level of Care: Express Care Visit Vital Signs Vital signs: Vital Signs Temperature 97.6 F 04/15/25 12:46 Pulse Rate 63 04/15/25 12:46 Respiratory Rate 18 04/15/25 12:46 Blood Pressure 104/52 L 04/15/25 12:46 Pulse Oximetry 94 04/15/25 12:46 Oxygen Delivery Room Air 04/15/25 12:46 Temperature 97.6 F 04/15/25 12:46 Pulse Rate 63 04/15/25 12:46 Respiratory Rate 18 04/15/25 12:46 Blood Pressure 104/52 L 04/15/25 12:46 Pulse Oximetry 94 04/15/25 12:46 Oxygen Delivery Room Air 04/15/25 12:46 Reviewed Procedures Laceration Laceration 1: Date: 04/15/25 Time: 12:50 Site: upper extremity Side (If applicable): left Size (cm): 5 Description: irregular Depth: simple, single layer ====== Skin Level ====== Skin layer closed with: steri strips ====== Subcutaneous Layer ====== ====== Muscle Layer ====== ====== Tendon Layer ====== MDM - Wound/Laceration MDM Narrative Medical decision making narrative: Skin tear thoroughly cleaned. Repaired with steri strips and dressing applied. Wound care instructions reviewed with patient, who verbalized understanding. -watch for signs of infection including: redness or swelling around the cut, or pus drains from the cut. It is normal for clear yellow fluid to drain from the cut in the first few days. -Steri strips works like a bandage; do not use antibiotic ointment as it can break down the adhesive -The steri strips will peel off on their own; usually by 5-10 days. If after 10 days, you still have the strips on you, you can use antibiotic ointment or petroleum jelly to get it off. After you heal, you should protect the scar from the sun. Use sunscreen on the area or wear clothes or a hat that covers the scar. Follow up with your PCP is needed Differential Diagnosis Differential diagnosis: Likely laceration, abrasion, avulsion of skin and other (skin tear) Critical Care Time Critical Care Time Critical Care Time: No Discharge Plan Discharge Clinical Impression: Skin tear of left elbow without complication Patient Disposition: Home Condition: Stable Instructions: Skin Tear (ED) Additional Instructions: -watch for signs of infection including: redness or swelling around the cut, or pus drains from the cut. It is normal for clear yellow fluid to drain from the cut in the first few days. -Steri strips works like a bandage; do not use antibiotic ointment as it can break down the adhesive -The steri strips will peel off on their own; usually by 5-10 days. If after 10 days, you still have the strips on you, you can use antibiotic ointment or petroleum jelly to get it off. After you heal, you should protect the scar from the sun. Use sunscreen on the area or wear clothes or a hat that covers the scar. Follow up with your PCP is needed Patient Language: Mongolian Prescriptions: No Action spironolactone 25 mg tablet 12.5 mg PO DAILY potassium citrate 10 mEq (1,080 mg) tablet extended release 10 meq PO .qod Qty: 90 0RF furosemide 40 mg tablet See Rx Instructions .ROUTE .qod Qty: 90 0RF Dose Instruction: TAKE 2 TABLETS BY MOUTH EVERY MORNING Rx Instructions: Take one 40mg tablet QOD; triamcinolone acetonide 0.1 % cream topical ferrous sulfate 325 mg (65 mg iron) tablet 325 mg PO BID Qty: 180 1RF Xarelto 15 mg tablet 15 mg PO DAILY Rx Instructions: must administer with evening meal aspirin 81 mg Tablet 81 mg PO DAILY vitamin B complex Capsule 1 cap PO DAILY cholecalciferol (vitamin D3) [Vitamin D3] 50 mcg (2,000 unit) Capsule 50 mcg PO DAILY atorvastatin 10 mg tablet See Rx Instructions .ROUTE .COMPLEX Qty: 45 1RF Rx Instructions: take 1/2 tablet po daily; allopurinol 300 mg tablet 150 mg PO DAILY Qty: 90 1RF omeprazole 20 mg capsule,delayed release(DR/EC) 20 mg PO DAILY Qty: 90 4RF Synjardy XR 5-1,000 mg tablet, IR - ER, biphasic 24hr 1 tablet PO DAILY Qty: 90 1RF carvedilol 12.5 mg tablet See Rx Instructions .ROUTE .COMPLEX Qty: 180 1RF Dose Instruction: TAKE 1 TABLET BY MOUTH TWICE DAILY Rx Instructions: TAKE 1 TABLET BY MOUTH TWICE DAILY folic acid 1 mg tablet See Rx Instructions .ROUTE .COMPLEX Qty: 90 1RF Dose Instruction: TAKE 1 TABLET BY MOUTH DAILY Rx Instructions: TAKE 1 TABLET BY MOUTH DAILY tamsulosin 0.4 mg capsule See Rx Instructions .ROUTE .COMPLEX Qty: 90 1RF Dose Instruction: TAKE 1 CAPSULE BY MOUTH DAILY Rx Instructions: TAKE 1 CAPSULE BY MOUTH DAILY losartan 50 mg tablet 75 mg PO DAILY Qty: 120 0RF penicillin V potassium 500 mg tablet See Rx Instructions .ROUTE .COMPLEX Qty: 180 1RF Dose Instruction: TAKE 1 TABLET BY MOUTH TWICE DAILY Rx Instructions: TAKE 1 TABLET BY MOUTH TWICE DAILY Follow-up/Referrals: Say Low MD [Primary Care Provider] - Time of Disposition: 13:02
--- OUTSIDE RECORDS SUMMARY | 2025-04-15 12:39 | XMS_ITS | Clinical Summary ---
Author Organization [facility] Address [address] [place] [phone] Phone Care Team Providers Care Electrical Tester Name Role Phone Say Low MD Primary Care Provider [phone] Allergies No known active allergies Medications allopurinol [...] at that time. I did check, the [email or web address] wraps are are coming to [facility]. So I think he should be able to get his MRI done. 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 Overview (12/22/2020): Last Assessment & Plan: Status post pacemaker placement, [employer] device for second-degree AV block [...] 8:51 AM CDT Height 177.8 cm (5' 10) 05/17/2022 8:51 AM CDT Body Mass Index 33.29 05/17/2022 8:51 AM CDT Plan of Treatment Health Maintenance Due Date Last Done Comments Pneumococcal PPSV23/PCV13 65 + Years / Low and Medium Risk (1 of 2 - PCV) 1992 Influenza Vaccine (#1) 2025 Insurance MEDICARE GENERIC BLUE CROSS Care Teams Electrical Tester Relationship Specialty Start Date End Date Say Low MD [address] [place] [address] PCP - General Internal Medicine 12/18/20
--- OUTSIDE RECORDS SUMMARY | 2025-04-15 12:39 | XMS_ITS | Clinical Summary ---
Author Organization [facility] [employer] Address [address] [facility] [place] [address] Care Team Providers Care Ups Driver Name Role Phone Edgar Geiger MD Unavailable Unavailable Say Low MD Primary Care Provider [phone] Source Comments [facility] [employer],non-owned Affiliates and Associated Physician Practices is amultiple site organization consisting of ambulatory clinics and hospital sitesin [place], [place], [place] and [place]. This disclosure is being madepursuant to the Care Everywhere program and may not contain all information available regarding this patient. Last updated 18.[facility] [employer] Allergies No known active allergies Medications * Be aware that medications may not be up to date on this document. Alwaysverify current medications with the patient. omeprazole (PRILOSEC OTC) 20 MG tablet Take 20 mg by mouth daily before breakfast. Active metFORMIN (GLUCOPHAGE) 1000 MG tablet Take 1,000 mg by mouth 2 times daily with morning and evening meal. 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 Gender Identity Not on file Sexual Orientation Not on file Last Filed Vital Signs Vital Sign Reading Time Taken Comments Blood Pressure 120/72 03/12/2015 1:18 PM CDT Pulse 72 03/12/2015 1:18 PM CDT Temperature - - Respiratory Rate - - Oxygen Saturation - - Inhaled Oxygen Concentration - - Weight 104.8 kg (231 lb) 03/12/2015 1:18 PM CDT Height 180.3 cm (5' 11) 03/12/2015 1:18 PM CDT Body Mass Index [...] season) 2024 DEPRESSION SCREENING 10/03/2024 INFLUENZA VACCINE (#1) 2025 HEPATITIS B VACCINE Aged Out No [...] Name:Drew Newman Payer ID:[id number] (NAIC) Type:Commercial Address: [place] [id number] SELF PAY NO INSURANCE Member Subscriber Plan / Payer (Ef fective for All Dates) Name:Mellisa Drew G Member ID:Not on file Relation to Subscriber:Not on file Name:DREW NEWMAN Subscriber ID:Not on file (Home) Address: [address] [place] [address] Payer ID:Not on file Group ID:Not on file Type:Self Pay Address: [place], [place] MEDICARE Care Teams Ups Driver Relationship Specialty Start Date End Date Say Low MD [address] [place] [address] PCP - General Internal Medicine 08/14/12 Edgar Geiger MD Cardiovascular Disease 08/14/12
--- OUTSIDE RECORDS SUMMARY | 2025-04-15 12:39 | XMS_ITS | Encounter Summary ---
Author Organization [facility] Address [address] [place] [address] Care Team Providers Care Brand Strategist Name Role Phone Edgar Geiger MD Unavailable Unavailable Say Low MD Primary Care Provider [phone] Encounter Details Date Type Department Care Team (Late st Contact Info) Description 01/12/2018 Lab Requisition [facility] Care Derm[facility] Lab [address] [place] [id number] Kumar Reno MD RETIRED Social History Tobacco Use Types Packs/Day Years Used Date Smoking Tobacco: Former Comments:QUIT SMOKING 30 YEA RS AGO Alcohol Use Standard Drinks/Week Comments No 0 (1 standard drink = 0.6 oz pur e alcohol) Sex and Gender Information Value Date Recorded Sex Assigned at Not on file 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 Gender Identity Not on file Sexual Orientation Not on file documented as of this encounter Plan of Treatment Not on file documented as of this encounter Procedures Procedure Name Priority Date/Time Associated Diagnosis Comments DERMATOPATHOLOGY Routine 01/11/2018 12:0 0 AM CDT documented in this encounter Results * DERMATOPATHOLOGY (01/11/2018 12:00 AM CDT) Case Report Dermatopathology Report Case: [id number] Authorizing Provider: Kumar Reno MD Collected: 01/11/2018 12:00 AM Pathologist: Rhea Gayle MD Received: 01/12/2018 11:39 AM Specimen: Skin, right infraclavicular 8 6:41 PM CDT DERMATOPATHOLOGY LABORATORY Final Diagnosis Specimen A. SKIN, right infraclavicular: BENIGN VERRUCOUS KERATOSIS, INFLAMED (L82.1) 8 6:41 PM CDT DERMATOPATHOLOGY LABORATORY at 1841 CDT Clinical History SK. 8 6:41 PM CDT DERMATOPATHOLOGY LABORATORY Gross Description Specimen: A: Received is one formalin filled container labeled with the patient's name and designated right infraclavicular. The specimen consists of a shave biopsy measuring [id number]. Jar 0. 8 6:41 PM CDT DERMATOPATHOLOGY LABORATORY Microscopic Description [...] characteristic determined by the Dermatopathology Laboratory at [facility]. These tests need not be, and therefore are not, approved by the [place] Food and Drug Administration. The tests are used for clinical purposes. Billing Codes Specimen Charges Stain Charges 77462 1 8 6:41 PM CDT DERMATOPATHOLOGY LABORATORY Embedded Images 8 6:41 PM CDT DERMATOPATHOLOGY LABORATORY Pathology/Cytolog y TISSUE SPECIMEN FROM SKIN / Unknown 01/11/2018 01/12/2018 11:39 AM CDT Kumar Reno MD LAB - PATHOLOGY/CYTOLOGY ORD ERABLES Final Result DERMATOPATHOLOGY LABORATORY [facility] - Department of Dermatology [address] [place] [address], 5th Floor Lab [address] [phone] documented in this encounter Visit Diagnoses Not on filedocumented in this encounter Care Teams Brand Strategist Relationship Specialty Start Date End Date Say Low MD [address] [place] [address] PCP - General Internal Medicine 08/14/12 Edgar Geiger MD Cardiovascular Disease 08/14/12 documented as of this encounter
--- OUTSIDE RECORDS SUMMARY | 2025-04-15 12:39 | XMS_ITS | Encounter Summary ---
Author Organization [facility] Address [address] [place] [address] Care Team Providers Care Hide Cooking Operator Name Role Phone Edgar Geiger MD Unavailable Unavailable Say Low MD Primary Care Provider [phone] Encounter Details Date Type Department Care Team (Late st Contact Info) Description 01/30/2018 Lab Requisition [facility] Care Derm[facility] Lab [address] [place] [id number] Kumar Reno MD RETIRED Social History Tobacco Use Types Packs/Day Years Used Date Smoking Tobacco: Former Comments:QUIT SMOKING 30 YEA RS AGO Alcohol Use Standard Drinks/Week Comments No 0 (1 standard drink = 0.6 oz pur e alcohol) Sex and Gender Information Value Date Recorded Sex Assigned at Not on file Legal Sex Male 5:06 AM 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 TRANSPORT 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 Gender Identity Not on file Sexual Orientation Not on file documented as of this encounter Plan of Treatment Not on file documented as of this encounter Procedures Procedure Name Priority Date/Time Associated Diagnosis Comments DERMATOPATHOLOGY Routine 01/27/2018 12:0 0 AM CDT documented in this encounter Results * DERMATOPATHOLOGY (01/27/2018 12:00 AM CDT) Case Report Dermatopathology Report Case: [id number] Authorizing Provider: Kumar Reno MD Collected: 01/27/2018 12:00 AM Pathologist: Rhea Gayle MD Received: 01/30/2018 11:34 AM Specimen: Skin, right scapula tip 4:54 PM CDT DERMATOPATHOLOGY LABORATORY Final Diagnosis Specimen A. SKIN, right scapula tip: EPIDERMOID CYST (L72.0) 4:54 PM CDT DERMATOPATHOLOGY LABORATORY at 1654 CDT Clinical History Epi cyst. 4:54 PM CDT DERMATOPATHOLOGY LABORATORY Gross Description Specimen A: Received is one formalin filled container labeled with the patient's name and designated right scapula tip. The specimen consists of a [id number], [id number] excision of skin. The specimen is serially sectioned and a architectural representative section is submitted in cassette 1. [...] characteristic determined by the Dermatopathology Laboratory at [facility]. These tests need not be, and therefore are not, approved by the [place] Food and Drug Administration. The tests are used for clinical purposes. Billing Codes Specimen Charges Stain Charges 23615 1 4:54 PM CDT DERMATOPATHOLOGY LABORATORY Embedded Images 4:54 PM CDT DERMATOPATHOLOGY LABORATORY Pathology/Cytolog y TISSUE SPECIMEN FROM SKIN / Unknown 01/27/2018 01/30/2018 11:34 AM CDT us Kumar Reno MD LAB - PATHOLOGY/CYTOLOGY ORD ERABLES Final Result DERMATOPATHOLOGY LABORATORY [facility] - Department of Dermatology [address] [place] [address] 5th Floor Lab B [address] [phone] documented in this encounter Visit Diagnoses Not on filedocumented in this encounter Care Teams Hide Cooking Operator Relationship Specialty Start Date End Date Say Low MD [address] [place] [address] PCP - General Internal Medicine 08/14/12 Edgar Geiger MD Cardiovascular Disease 08/14/12 documented as of this encounter
--- OUTSIDE RECORDS SUMMARY | 2025-04-15 12:44 | XMS_ITS | Referral Summary ---
Author Organization [facility] al Address [address] [place] [address] Care Team Providers Care It Business Systems Analyst Name Role Phone Say Low MD Primary Care Provider [phone] Encounters Date Type Department Care Team Description 03/04/2025 9:45 AM CDT Ancillary Procedure Arrhythmia Center [address] [address] Pacemaker (Primary Dx); NICM (nonischemic cardiomyopathy) (HCC) from Last 3 Months Allergies No known active allergies Medications tamsulosin (FLOMAX) 0.4 mg capsule,extended release 24hr take 1 capsule by oral route every day 1/2 hour following the same meal each day 0 0 09/10/20 15 Active SYNJARDY XR 5-1,000 mg tablet, IR [...] mg total) by mouth daily 03/22/20 24 Active atorvastatin (LIPITOR) 10 mg tablet Take 0.5 tablets (5 mg total) by mouth daily 45 tablet 2 05/15/20 24 Active losartan (COZAAR) 50 mg tablet Take 1.5 tablets (75 mg total) by mouth daily 45 tablet 11 09/05/20 24 025 Active Xarelto 15 mg tabletIndication s:Paroxysmal atrial fibrillation (HCC) TAKE 1 TABLET(15 MG) BY MOUTH DAILY 90 tablet 03/18/20 25 Active rivaroxaban (Xarelto) 15 mg tabletIndication s:Paroxysmal atrial fibrillation (HCC) Take 1 tablet (15 mg total) by mouth daily 90 tablet 12/27/19 25 025 Discontinued Active Problems Problem Noted Date Diagnosed Date [...] checks when necessary. The patient has a [id number] score of 4 (annualized risk of stroke 4%). I have therefore recommended continued anticoagulation for thromboprophylaxis. 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 I did check, the Luminescent wraps are are coming to [facility]. So I think he should be able to get his MRI done. Preoperative cardiovascular examination 05/01/20 19 Assessment & Plan (05/01/2019 11:30 AM CDT): Due to the silent ischemia, CABG in 2003, he needs an aggressive evaluation. Nephrolithiasis 01/04/2019 Overview (01/04/2019): Added automatically from request for surgery [id number] Pacemaker 07/04/2017 Overview (07/04/2017): [employer] DDD Essentio L111 pacemaker implanted on [...] HF symptoms attributed to substantial ventricular pacing, CIRCUIT MANAGER with BiV pacing is recommended to [...] 6:52 PM CDT): Status post pacemaker placement, [employer] device for second-degree AV block Normal [...] on file Legal Sex Male 8:04 PM PEDIATRIC ANESTHESIOLOGIST Gender Identity Male 07/10/2021 8:31 AM CDT Sexual Orientation Straight 06/12/2021 8: 44 AM CDT Last Filed Vital Signs Vital Sign Reading Time Taken Comments Blood Pressure 124/66 12/14/2024 11:02 AM CDT Pulse 74 12/14/2024 11:02 AM CDT Temperature 37.1 C (98.8 F) 08/15/2024 1:03 PM PEDIATRIC ANESTHESIOLOGIST Respiratory Rate 26 08/15/2024 5:50 PM PEDIATRIC ANESTHESIOLOGIST Oxygen Saturation 96% 12/14/2024 11:02 AM CDT Inhaled Oxygen Concentration - - Weight 103 kg (227 lb) 12/14/2024 11:02 AM CDT Height 172.7 cm (5' 8) 08/15/2024 1:03 PM PEDIATRIC ANESTHESIOLOGIST Body Mass Index 34.52 08/15/2024 1:03 PM PEDIATRIC ANESTHESIOLOGIST Plan of Treatment Not on file Medical Devices Implanted Type Area Lacrosse Player Device Identifier Shelf Expiration Date Model / Serial / Lot [employer] Tabby Acuity X4 3.9-5.2fr 2.6fr 86cm Otw Quadripolar Long Straight [id number] - [id number] - [id number] Implanted:Qty: 1 on 08/15/2024 by Wayne Davis MD at [facility] Lead [employer] Tabby [id number] 04/28/2026 [id number] / [id number] / Pacemaker-07/04 Implanted:11/2016 (Quantity not on file) Pacemaker Chest Wall [employer] Tabby Pacemaker Single Chamber Electronic Equipment Repairer P Visionist 0.75x4.45x6.17 cm U228 - [id number] - [id number] Implanted:Qty: 1 on 08/15/2024 by Wayne Davis MD at [facility] Pacemaker [employer] Tabby [id number] 06/08/2026 [id number] / [id number] / [employer]by [id number] Synergy Xd Monorail 3.5mm 32mm 144cm Delivery System 1 Access - S0 - [id number] Implanted:Qty: 1 on 07/13/2021 by Troy Shipley MD at [facility] Stent [employer] Tabby 03/11/2023 [id number] / [id number] / [id number] Description:LAD Explanted Type Area Lacrosse Player Device Identifier Shelf Expiration Date Model / Serial / Lot [employer] [id number] [place] 6fr 28cm Pusher Fluoro Marker Atraumatic Insertion Latex Free - [id number] Implanted:Qty: 1 on 01/17/2019 by Concetta Thurston MD at [facility] Explanted:Qty: 1 on 01/31/2019 by Elvin Carrillo NP Stent Left: Ureter [employer] [id number] 07/13/2023 [id number] / / [id number] Procedures Procedure Name Priority Date/Time Associated Diagnosis Comments DEVICE CHECK - REMOTE Routine 03/04/2025 2:33 PM CDT NICM (nonischemic cardiomyopathy) (HCC) CT ABDOMEN PELVIS WO CONTRAST Schedule Routine, Read Routine (OP Routine) 09/14/2022 9:43 AM PEDIATRIC ANESTHESIOLOGIST Nephrolithiasis from Last 3 Months or Most Recently Relevant to Health Maintenance Results * DEVICE CHECK - REMOTE (03/04/2025 2:33 PM CDT) Anatomical Region Laterality Modality Other Narrative 03/10/2025 12:25 PM CDT Table formatting from the original result was not included. BiV PACEMAKER CHECK (REMOTE) Patient ID: Drew Newman is a 84 y.o. male. This patient received a [employer] BiV Pacemaker. They had a routine remote transmission on 03/04/2025. Device implant indications: Nonischemic cardiomyopathy, Mobitz type 2 Interrogation of the patient's device demonstrates the following: Presenting EGM: A sensed Bi V paced @ 61 bpm Original Device Settings Right Atrium Right Ventricle Left Ventricle Sensitivity (mV) 0.5 mV 2.5 mV 2.5 mV Pacemaker Outputs 2.5 V @ 0.4 ms 2.0 V @ 0.4 ms 2.5 V @ 0.4 ms Testing Measurements Right Atrium Right Ventricle Left Ventricle Sensitivity (mV) 5.6 mV Paced mV Paced mV Impedence (Ohms) 440 ohms 475 ohms 984 ohms Pace Threshold Not done V @ ms 0.5 V @ 0.4 ms Not done V @ ms Pacing % 27 % 100 % 100 % Battery Status: 11 years to SOFI Episodes last 90 days/Comments: AF Justin <1 %, longest duration 4 seconds. No new ventricular events NORMAL DEVICE FUNCTION PROGRAMMED MEDICATIONS: Anti-coagulant(s): Aspirin 81 mg, Xarelto 15 mg daily Anti-arrhythmic(s): Coreg 12.5 mg twice a day PLAN: 1) [employer] BiV Pacemaker evaluation 2) [employer] remote transmission scheduled in 3 months. 3) Programming appropriate for device settings Gisela Butler RN us Wayne Davis MD CV CARDIAC SERVICES PRO CEDURES Final Result * CT Abdomen Pelvis WO Contrast (09/14/2022 9:43 AM PEDIATRIC ANESTHESIOLOGIST) Anatomical Region Laterality Modality Body N/A Computed Tomogra phy 09/15/2022 10:0 0 AM PEDIATRIC ANESTHESIOLOGIST Narrative 09/15/2022 10:11 AM PEDIATRIC ANESTHESIOLOGIST EXAM DESCRIPTION: CT ABDOMEN PELVIS WO CONTRAST [...] Findings Committee. J Am Walter Radiol. 2017 May;14(8):9919-5657. THIS IS AN ELECTRONICALLY VERIFIED FINAL REPORT 09/15/2022 10:11 AM - Electronically signed by Ko Haro M.D. AG: JAMES Report ID: [id number] Reading Location: [id number] Procedure Note Ko Haro MD - 09/15/2022 [...] Findings Committee. J Am Walter Radiol. 2017 May;14(8):3164-7805. THIS IS AN ELECTRONICALLY VERIFIED FINAL REPORT 09/15/2022 10:11 AM - Electronically signed by Ko Haro M.D. AG: JAMES Report ID: [id number] Reading Location: [place] [address] Elvin Carrillo NP IM CT PROCEDURES Final Result from Last 3 Months or Most Recently Relevant to Health Maintenance Insurance MEDICARE [facility] MEDICARE [facility] MEDICARE [facility] MEDICARE SUPPLEMENT Advance Directives For more information, please contact: [phone] Documents on File Type Date Recorded Patient Guest Services Attendant Expl anation ADVANCE DIRECTIVE 07/04/2017 Advance Di rective Checklist * Full Code (Latest Code Status on File) Date Activated Date Inactivated Comments 07/13/2021 3:49 PM 07/14/2021 2:07 PM Care Teams It Business Systems Analyst Relationship Specialty Start Date End Date Say Low MD [address] [place] [address] PCP - General 02/15/17
--- OUTSIDE RECORDS SUMMARY | 2025-04-15 12:44 | XMS_ITS | Encounter Summary ---
Author Organization [facility] Address [address] [place] [address] Care Team Providers Care Chief Procurement Officer Name Role Phone Say Low MD Primary Care Provider [phone] Unknown, Notinfile Primary Care Provider Unavail able Say Low MD Primary Care Provider [phone] Encounter Details Date Type Department Care Team (Late st Contact Info) Description 09/07/2016 Orders Only Arrhythmia Center Provider, MD Giovanni [address] [place] [address] Social History Tobacco Use Types Packs/Day Years Used Date Smoking Tobacco: Former Cigarettes Q uit: 10/03/1982 Alcohol Use Standard Drinks/Week Comments No 0 (1 standard drink = 0.6 oz pur e alcohol) Sex and Gender Information Value Date Recorded Sex Assigned at Not on file Legal Sex Male 8:04 PM PRESS TOOL 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
--- OUTSIDE RECORDS SUMMARY | 2025-04-15 12:44 | XMS_ITS | Encounter Summary ---
Author Organization [facility] Address [address] [place] [address] Care Team Providers Care Lidding Machine Operator Name Role Phone Say Low MD Primary Care Provider [phone] Unknown, Notinfile Primary Care Provider Unavail able Say Low MD Primary Care Provider [phone] Encounter Details Date Type Department Care Team (Late st Contact Info) Description 09/08/2016 Orders Only Arrhythmia Center Provider, MD Giovanni [address] [place] [address] Social History Tobacco Use Types Packs/Day Years Used Date Smoking Tobacco: Former Cigarettes Q uit: 10/03/1982 Alcohol Use Standard Drinks/Week Comments No 0 (1 standard drink = 0.6 oz pur e alcohol) Sex and Gender Information Value Date Recorded Sex Assigned at Not on file Legal Sex Male 8:04 PM 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
--- OUTSIDE RECORDS SUMMARY | 2025-04-15 12:44 | XMS_ITS | Encounter Summary ---
Author Organization [facility] Medical [facility] Address [address] [place] [address] Care Team Providers Care E Commerce Manager Name Role Phone Say Low MD Primary Care Provider [phone] Unknown, Notinfile Primary Care Provider Unavail able Say Low MD Primary Care Provider [phone] Encounter Details Date Type Department Care Team (Late st Contact Info) Description 10/01/2016 Orders Only Arrhythmia Center Provider, MD Giovanni [facility] [place] [address] Social History Tobacco Use Types Packs/Day Years Used Date Smoking Tobacco: Former Cigarettes Q uit: 10/03/1982 Alcohol Use Standard Drinks/Week Comments No 0 (1 standard drink = 0.6 oz pur e alcohol) Sex and Gender Information Value Date Recorded Sex Assigned at Not on file Legal Sex Male 8:04 PM AIR CONDITIONING MECHANIC INDUSTRIAL Gender Identity Male 07/10/2021 8:31 AM CDT [...] on filedocumented in this encounter Care Teams E Commerce Manager Relationship Specialty Start Date End Date Say Low MD [address] [place] [address] PCP - General 10/13/15 02/10/17 Unknown, Notinfile PCP - General 02/11/17 02/14/17 Say Low MD [address] [place] [address] PCP - General 02/15/17 documented as of this encounter
--- OUTSIDE RECORDS SUMMARY | 2025-04-15 12:44 | XMS_ITS | Encounter Summary ---
Author Organization [facility] Medical [facility] Address [address] [place] [address] Care Team Providers Care Bibliographic Services Specialist Name Role Phone Say Low MD Primary Care Provider [phone] Encounter Details Date Type Department Care Team (Late st Contact Info) Description 02/17/2017 Orders Only Arrhythmia Center ProviderGiovanni MD [address] [place] [address] Social History Tobacco Use Types Packs/Day Years Used Date Smoking Tobacco: Former Cigarettes Q uit: 10/03/1982 Alcohol Use Standard Drinks/Week Comments No 0 (1 standard drink = 0.6 oz pur e alcohol) Sex and Gender Information Value Date Recorded Sex Assigned at Not on file Legal Sex Male 8:04 PM CLINIQUE COUNTER MANAGER Gender Identity Male 07/10/2021 8:31 AM [...] on filedocumented in this encounter Care Teams Bibliographic Services Specialist Relationship Specialty Start Date End Date Say Low MD [address] [facility] [address] [facility] [address] [place] [address] PCP - General 02/15/17 documented as of this encounter
--- OUTSIDE RECORDS SUMMARY | 2025-04-15 12:44 | XMS_ITS | Clinical Summary ---
Author Organization [facility] Address [address] [place] [address] Care Team Providers Care Student Driving Instructor Name Role Phone Say Low MD Primary Care Provider [phone] Allergies No known active allergies Medications tamsulosin [...] checks when necessary. The patient has a OLG2CK6-GTHi score of 4 (annualized risk of stroke 4%). I have therefore recommended continued anticoagulation for thromboprophylaxis. NICM (nonischemic cardiomyopathy) 07/19/2024 CAD S/P percutaneous coronary angioplasty 2020 Coronary artery disease (CAD) excluded 1 Hx of CABG 02/22/2020 Coronary artery disease invo lving coronary bypass graft of marshall heart with angina pectoris 02/22/2020 Assessment & [...] at that time. I did check, the [employer] wraps are are coming to [facility]. So I think he should be able to get his MRI done. Preoperative cardiovascular examination 05/01/20 19 Assessment & Plan (05/01/2019 11:30 AM CDT): Due to the silent ischemia, CABG in 2003, he needs an aggressive evaluation. Nephrolithiasis 01/04/2019 Overview (01/04/2019): Added automatically from request for surgery [id number] Pacemaker 07/04/2017 Overview (07/04/2017): Ok[employer] DDD Essentio L111 pacemaker implanted on [...] HF symptoms attributed to substantial ventricular pacing, WEATHER STRIPPER with BiV pacing is recommended to improve [...] 6:52 PM CDT): Status post pacemaker placement, [employer] device for second-degree AV block Normal [...] CDT Ancillary Procedure Arrhythmia Center [address] [facility] [address] [place] [address] Pacemaker (Primary Dx); NICM (nonischemic cardiomyopathy) (HCC) from Last 3 Months Surgical History Surgery [...] on file Legal Sex Male 8:[address] INTERPRETER Gender Identity Male 07/10/2021 8:31 AM CDT Sexual Orientation Straight 06/12/2021 8: 44 AM CDT Obstetrics History Last Filed Vital Signs Vital Sign Reading Time Taken Comments Blood Pressure 124/66 12/14/2024 11:02 AM CDT Pulse 74 12/14/2024 11:02 AM CDT Temperature 37.1 C (98.8 F) 08/15/2024 1:[address] INTERPRETER Respiratory Rate 26 08/15/2024 5:[address] INTERPRETER Oxygen Saturation 96% 12/14/2024 11:02 AM CDT Inhaled Oxygen Concentration - - Weight 103 kg (227 lb) 12/14/2024 11:02 AM CDT Height 172.7 cm (5' 8) 08/15/2024 1:[address] INTERPRETER Body Mass Index 34.52 08/15/2024 1:[address] INTERPRETER Plan of Treatment Health Maintenance Due Date Last Done Comments Depression Screening 1942 DTaP/Tdap/Td Vaccine (1 - Tdap) 1953 Hepatitis B Screening 1960 Pneumococcal vaccine 65+ (1 of 1 - PCV) 1992 Zoster Vaccine (1 of 2) 1992 Well Visit 65+ 2007 Fall Risk Assessment 07/14/2022 07/14/2021 Influenza Vaccine (#1) 2025 Abdominal Aortic Aneurysm (A AA) Screen Completed 09/14/2022, 01/04/2019, 02/11/2017 Medical Devices Implanted Type Area Lace Pinner Device Identifier Shelf Expiration Date Model / Serial / Lot [employer] Tabby Acuity X4 3.9-5.2fr 2.6fr 86cm Otw Quadripolar Long Straight [id number] - [id number] - [id number] Implanted:Qty: 1 on 08/15/2024 by Wayne Davis MD at [facility] Lead [employer] Tabby [id number] 04/28/2026 [id number] / [id number] / Pacemaker-07/04 Implanted:11/2016 (Quantity not on file) Pacemaker Chest Wall [employer] C.[employer].M. Ok[employer] Tabby Pacemaker Single Chamber Steel Handler P Visionist 0.75x4.45x6.17 cm U228 - [id number] - [id number] Implanted:Qty: 1 on 08/15/2024 by Wayne Davis MD at [facility] Pacemaker [employer] Tabby [id number] 06/08/2026 [id number] / [id number] / [employer] Tabby [id number] Synergy Xd Monorail 3.5mm 32mm 144cm Delivery System 1 Access - S0 - [id number] Implanted:Qty: 1 on 07/13/2021 by Troy Shipley MD at [facility] Stent [employer] Tabby 03/11/2023 [id number] / 0 / [id number] Description:LAD Explanted Type Area Lace Pinner Device Identifier Shelf Expiration Date Model / Serial / Lot [employer] [id number] Inlay [place] 6fr 28cm Pusher Fluoro Marker Atraumatic Insertion Latex Free - [id number] Implanted:Qty: 1 on 01/17/2019 by Concetta Thurston MD at [facility] Explanted:Qty: 1 on 01/31/2019 by Elvin Carrillo NP Stent Left: Ureter [employer] [id number] 07/13/2023 [id number] / / [id number] Procedures Procedure Name Priority Date/Time Associated Diagnosis Comments DEVICE CHECK - REMOTE Routine 03/04/2025 2:33 PM CDT NICM (nonischemic cardiomyopathy) (HCC) CT ABDOMEN PELVIS WO CONTRAST Schedule Routine, Read Routine (OP Routine) 09/14/2022 9:[address] INTERPRETER Nephrolithiasis from Last 3 Months or Most Recently Relevant to Health Maintenance Results * DEVICE CHECK - REMOTE (03/04/2025 2:33 PM CDT) Anatomical Region Laterality Modality Other Narrative 03/10/2025 12:25 PM CDT Table formatting from the original result was not included. BiV PACEMAKER CHECK (REMOTE) Patient ID: Drew Newman is a 84 y.o. male. This patient received a Oklee scientific BiV Pacemaker. They had a routine [...] to SOFI Episodes last 90 days/Comments: AF [place] <1 %, longest duration 4 seconds. No new ventricular events NORMAL DEVICE FUNCTION PROGRAMMED MEDICATIONS: Anti-coagulant(s): Aspirin 81 mg, Xarelto 15 mg daily Anti-arrhythmic(s): Coreg 12.5 mg twice a day PLAN: 1) Oklee [employer] BiV Pacemaker evaluation 2) Oklee [employer] remote transmission scheduled in 3 months. 3) Programming appropriate for device settings Gisela Butler RN us Wayne Davis MD [facility] PRO CEDURES Final Result * CT Abdomen Pelvis WO Contrast (09/14/2022 9:[address] INTERPRETER) Anatomical Region Laterality Modality Body N/A Computed Tomogra phy 09/15/2022 10:[address] INTERPRETER Narrative 09/15/2022 10:[address] INTERPRETER EXAM DESCRIPTION: CT ABDOMEN PELVIS WO CONTRAST [...] Findings Committee. J Am Walter Radiol. 2017 May;14(8):1454-5985. THIS IS AN ELECTRONICALLY VERIFIED FINAL REPORT 09/15/2022 10:11 AM - Electronically signed by Ko Haro M.D. AG: JAMES Report ID: [id number] Reading Location: [id number] Procedure Note Ko Haro MD - 09/15/2022 [...] Findings Committee. J Am Walter Radiol. 2017 May;14(8):1802-5501. THIS IS AN ELECTRONICALLY VERIFIED FINAL REPORT 09/15/2022 10:11 AM - Electronically signed by Ko Haro M.D. AG: JAMES Report ID: [id number] Reading Location: [place] [address] Elvin Carrillo NP IMG CT PROCEDURES Final Result from Last 3 Months or Most Recently Relevant to Health Maintenance Insurance MEDICARE Member Subscriber Plan / Payer (Ef fective 2007-Present) Name:DREW NEWMAN Member ID:[id number] Relation to Subscriber:Self Name:Drew Newman Subscriber ID:[id number] Payer ID:[id number] Group ID:Not on file Type:MEDICARE TRADITIONAL Address: [address] [address] [place] [address] [facility] MEDICARE SUPPLEMENT Advance Directives For more information, please contact: [phone] Documents on File Type Date Recorded Patient [employer] anation ADVANCE DIRECTIVE 07/04/2017 Advance Di rective Checklist * Full Code (Latest Code Status on File) Date Activated Date Inactivated Comments 07/13/2021 3:49 PM 07/14/2021 2:07 PM Care Teams Student Driving Instructor Relationship Specialty Start Date End Date Say Low MD [address] [place] [address] PCP - General 02/15/17
[2025-04-15 12:46] VITALS: BP 104/52; PULSE 63; RESP 18; TEMP 36.4; O2SAT 94
== END 2025-04-15 13:05 | disposition home or self-care (01) ==
PROVIDERS: Emergency Provider Nurse Practitioner; PCP Internal Medicine
DX: S51.012A Laceration without foreign body of left elbow, initial encounter (principal); W19.XXXA Unspecified fall, initial encounter; Z87.891 Personal history of nicotine dependence; I11.0 Hypertensive heart disease with heart failure; I50.30 Unspecified diastolic (congestive) heart failure; E11.9 Type 2 diabetes mellitus without complications; K74.60 Unspecified cirrhosis of liver; K21.9 Gastro-esophageal reflux disease without esophagitis; N40.0 Benign prostatic hyperplasia without lower urinary tract symptoms; M10.9 Gout, unspecified; I25.10 Atherosclerotic heart disease of native coronary artery without angina pectoris; E78.2 Mixed hyperlipidemia; Z96.651 Presence of right artificial knee joint; Z95.1 Presence of aortocoronary bypass graft; Z95.0 Presence of cardiac pacemaker; E66.9 Obesity, unspecified; Z68.31 Body mass index [BMI] 31.0-31.9, adult; G47.33 Obstructive sleep apnea (adult) (pediatric); Z79.01 Long term (current) use of anticoagulants; Z79.82 Long term (current) use of aspirin; D64.9 Anemia, unspecified
CPT/HCPCS: 99212; G0463

== ENCOUNTER 2025-06-05 10:52 | Outpatient (CLI) | payer MEDICARE, SELFPAY ==
[2025-06-05 12:06] LABS: Hematocrit 41.5 % (42.0-52.0); Hemoglobin 13.1 g/dL (14.0-18.0); Immature Granulocyte Percent A 0.3 % (0-0.5); Lymphocytes Absolute Auto 1.42 K/mm3 (0.9-3.2); Mean Corpuscular HGB Conc 31.6 g/dl (32-36); Mean Corpuscular Hemoglobin 32.7 pg (26-34); Mean Corpuscular Volume 103.5 fl (80-100); Nucleated Red Blood Cells Absolute Auto 0.000 K/mm3 (0.0-0.012); Nucleated Red Blood Cells Perc 0.0 % (0.0-0.2); Platelet Count Result 201 k/mm3 (150-375); Red Blood Count 4.01 M/mm3 (4.6-6.20); White Blood Count 7.4 K/mm3 (4.5-10.0)
[2025-06-05 12:21] LABS: Hemoglobin A1C 6.1 % (<5.7)
[2025-06-05 12:22] LABS: Iron 100 ug/dL (49-181)
[2025-06-05 12:23] LABS: Alanine Aminotransferase 25 U/L (6-50); Albumin Level 4.0 g/dL (3.5-5.1); Alkaline Phosphatase 75 U/L (38-126); Anion Gap 9 mmol/L (4-12); Aspartate Amino Transferase 46 U/L (17-59); Bilirubin,Total 1.1 mg/dL (0.2-1.3); Blood Urea Nitrogen 48 mg/dL (9-20); Calcium 8.8 mg/dL (8.4-10.2); Carbon Dioxide 21 mmol/L (22-30); Chloride 106 mmol/L (98-107); Cholesterol 127 mg/dL (0-200); Estimated Glomerular Filt Rate 34; Glucose 99 mg/dL (65-110); HDL Direct 48 mg/dL; Potassium 4.4 mmol/L (3.4-5.0); Sodium 136 mmol/L (137-145); Total Protein 6.5 g/dL (6.3-8.2); Triglycerides 78 mg/dL (<150)
--- OUTSIDE RECORDS SUMMARY | 2025-06-05 12:25 | XMS_ITS | Clinical Summary ---
Author Organization [facility] Address [address] [place] [address] Care Team Providers Care Chief Merchandising Officer Name Role Phone Edgar Geiger MD Unavailable Unavailable Say Low MD Primary Care Provider [phone] Source Comments [facility],non-owned Affiliates and Associated Physician Practices is amultiple site organization consisting of ambulatory clinics and hospital sitesin [place], [place], [place] and [place]. This disclosure is being madepursuant to the Care Everywhere program and may not contain all information available regarding this patient. Last updated 18.[facility] Allergies No known active allergies Medications * Be aware that medications may not be up to date on this document. Alwaysverify current medications with the patient. omeprazole (PRILOSEC OTC) 20 MG tablet Take 20 mg by mouth daily before breakfast. Active metFORMIN (GLUCOPHAGE) 1000 MG tablet Take 1,000 mg by mouth 2 times daily with morning and evening meal. 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 Gender Identity Not on file Sexual [...] - 1-dose 75+ series) 2017 DEPRESSION SCREENING 10/03/2024 COVID-19 VACCINE (1 - 2023-2 5 season) 2025 INFLUENZA VACCINE (#1) 2025 HEPATITIS B VACCINE [...] Name:Drew Newman Payer ID:[id number] (NAIC) Type:Commercial Address: [place] [id number] SELF PAY NO INSURANCE Member Subscriber Plan / Payer (Ef fective for All Dates) Name:Mellisa Drew G Member ID:Not on file Relation to Subscriber:Not on file Name:DREW NEWMAN Subscriber ID:Not on file (Home) Address: [address] [place] [address] Payer ID:Not on file Group ID:Not on file Type:Self Pay Address: [place], [place] MEDICARE Care Teams Chief Merchandising Officer Relationship Specialty Start Date End Date Say Low MD [address] [place] [address] PCP - General Internal Medicine 08/14/12 Edgar Gegier MD Cardiovascular Disease 08/14/12
--- OUTSIDE RECORDS SUMMARY | 2025-06-05 12:25 | XMS_ITS | Encounter Summary ---
Author Organization [facility] Address [address] [place] [address] Care Team Providers Care Ecologist Technician Name Role Phone Edgar Geiger MD Unavailable Unavailable Say Low MD Primary Care Provider [phone] Encounter Details Date Type Department Care Team (Late st Contact Info) Description 01/12/2018 Lab Requisition [facility] Care DermPath Lab [address] [place] [phone] Kumar Reno MD RETIRED Social History Tobacco Use Types Packs/Day Years Used Date Smoking Tobacco: Former Comments:QUIT SMOKING 30 YEA RS AGO Alcohol Use Standard Drinks/Week Comments No 0 (1 standard drink = 0.6 oz pur e alcohol) Sex and Gender Information Value Date Recorded Sex Assigned at Not on file 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 Jar 0. 8 6:41 PM CDT DERMATOPATHOLOGY [...] by the Dermatopathology Laboratory at [facility]. These tests need not be, and therefore are not, approved by the [place] Food and Drug Administration. The tests are used for clinical purposes. Billing Codes Specimen Charges Stain Charges 21375 1 8 6:41 PM CDT DERMATOPATHOLOGY LABORATORY Embedded Images 8 6:41 PM CDT DERMATOPATHOLOGY LABORATORY Pathology/Cytolog y TISSUE SPECIMEN FROM SKIN / Unknown 01/11/2018 01/12/2018 11:39 AM CDT Kumar Reno MD LAB - PATHOLOGY/CYTOLOGY ORD ERABLES Final Result DERMATOPATHOLOGY LABORATORY [facility] - Department of Dermatology [address] [place] [address], 5th Floor Lab [address] [phone] documented in this encounter Visit Diagnoses Not on filedocumented in this encounter Care Teams Ecologist Technician Relationship Specialty Start Date End Date Say Low MD [address] [place] [address] PCP - General Internal Medicine 08/14/12 Edgar Geiger MD Cardiovascular Disease 08/14/12 documented as of this encounter
--- OUTSIDE RECORDS SUMMARY | 2025-06-05 12:25 | XMS_ITS | Encounter Summary ---
Author Organization [facility] Address [address] [place] [address] Care Team Providers Care Glass Mechanic Name Role Phone Edgar Geiger MD Unavailable Unavailable Say Low MD Primary Care Provider [phone] Encounter Details Date Type Department Care Team (Late st Contact Info) Description 01/30/2018 Lab Requisition 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 The specimen consists of a [id number], [id number] excision of skin. The specimen is serially sectioned and a agency service representative section is submitted in cassette [...] purposes. Billing Codes Specimen Charges Stain Charges 35732 1 4:54 PM CDT DERMATOPATHOLOGY LABORATORY Embedded Images 4:54 PM CDT DERMATOPATHOLOGY LABORATORY Pathology/Cytolog y TISSUE SPECIMEN FROM SKIN / Unknown 01/27/2018 01/30/2018 11:34 AM CDT us Kumar Reno MD LAB - PATHOLOGY/CYTOLOGY ORD ERABLES Final Result DERMATOPATHOLOGY LABORATORY [facility] - Department of Dermatology [address] [place] [address] 5th Floor Lab [address] [phone] documented in this encounter Visit Diagnoses Not on filedocumented in this encounter Care Teams Glass Mechanic Relationship Specialty Start Date End Date Say Low MD [address] [place] [address] PCP - General Internal Medicine 08/14/12 Edgar Geiger MD Cardiovascular Disease 08/14/12 documented as of this encounter
--- OUTSIDE RECORDS SUMMARY | 2025-06-05 12:25 | XMS_ITS | Clinical Summary ---
Author Organization [facility] Address [address] [place] [address] Phone Care Team Providers Care Repack Room Worker Name Role Phone Say Low MD Primary Care Provider [phone] Allergies No known active allergies Medications allopurinol [...] at that time. I did check, the [employer] wraps are are coming to [facility]. So I think he should be able to get his MRI done. 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
[2025-06-05 12:33] LABS: Percent Iron Saturation 25 % (20-50)
[2025-06-05 13:03] LABS: Ferritin 18.80 ng/mL (11.1-264)
== END 2025-06-05 10:53 | disposition home or self-care (01) ==
PROVIDERS: PCP Internal Medicine; Visit Provider Internal Medicine
DX: E78.2 Mixed hyperlipidemia (principal); I10 Essential (primary) hypertension; E11.9 Type 2 diabetes mellitus without complications; D50.9 Iron deficiency anemia, unspecified
CPT/HCPCS: 36415; 80053; 80061; 82728; 83036; 83540; 83550; 85025

== ENCOUNTER 2025-07-02 10:56 | Outpatient (CLI) | payer MEDICARE, SELFPAY ==
--- NOTE | ~2025-07-02 | XR_ITS ---
EXAMINATION: XR shoulder RT min 2V, 07/02/2025 11:10 CDT HISTORY: M25.511 - Pain in right shoulder COMPARISON: No comparisons available. Findings: No acute fracture or malalignment. Moderate degenerative changes Soft tissues unremarkable. Impression: No acute fracture or malalignment. Reviewed, dictated and finalized at location P. Impression: No acute fracture or malalignment.
--- OUTSIDE RECORDS SUMMARY | 2025-07-02 11:39 | XMS_ITS | Clinical Summary ---
Author Organization [facility] Address [address] [place] [address] Phone Care Team Providers Care Application Defense Manager Name Role Phone Say Low MD Primary Care Provider [phone] Allergies No known active allergies Medications allopurinol [...] at that time. I did check, the Head Held High wraps are are coming to [facility]. So I think he should be able to get his MRI done. 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
--- OUTSIDE RECORDS SUMMARY | 2025-07-02 11:39 | XMS_ITS | Encounter Summary ---
Author Organization [facility] Address [address] [place] [address] Care Team Providers Care Dry Wall Nailer Name Role Phone Say Low MD Primary Care Provider [phone] Unknown, Notinfile Primary Care Provider Unavail able Say Low MD Primary Care Provider Encounter Details Date Type Department Care Team (Late st Contact Info) Description 09/08/2016 Orders Only [facility]hythmia Center ProviderGiovanni MD [address] [place] [address] Social History Tobacco Use Types Packs/Day Years Used Date Smoking Tobacco: Former Cigarettes Q uit: 10/03/1982 Alcohol Use Standard Drinks/Week Comments No 0 (1 standard drink = 0.6 oz pur e alcohol) Sex and Gender Information Value Date Recorded Sex Assigned at Not on file 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 us Historical Provider [facility] Final Result documented in this encounter Visit Diagnoses Not on filedocumented in this encounter Care Teams Dry Wall Nailer Relationship Specialty Start Date End Date Say Low MD PCP - General 10/13/15 02/10/17 Unknown, Notinfile PCP - General 02/11/17 02/14/17 Say Low MD PCP - General 02/15/17 documented as of this encounter
--- OUTSIDE RECORDS SUMMARY | 2025-07-02 11:39 | XMS_ITS | Encounter Summary ---
Author Organization [facility] Address [address] [address] Care Team Providers Care Guest Relations Agent Name Role Phone Say Low MD Primary Care Provider [phone] Encounter Details Date Type Department Care Team (Late st Contact Info) Description 02/17/2017 Orders Only Arrhythmia Center ProviderGiovanni MD [address] [place] [address] Social History Tobacco Use Types Packs/Day Years Used Date Smoking Tobacco: Former Cigarettes Q uit: 10/03/1982 Alcohol Use Standard Drinks/Week Comments No 0 (1 standard drink = 0.6 oz pur e alcohol) Sex and Gender Information Value Date Recorded Sex Assigned at Not on file 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
--- OUTSIDE RECORDS SUMMARY | 2025-07-02 11:39 | XMS_ITS | Encounter Summary ---
Author Organization [facility] Address [address] [facility] [address] [place] [address] Care Team Providers Care Chief Bank Examiner Name Role Phone Say Low MD Primary Care Provider [phone] Unknown, Notinfile Primary Care Provider Unavail able Say Low MD Primary Care Provider [phone] Encounter Details Date Type Department Care Team (Late st Contact Info) Description 10/01/2016 Orders Only Arrhythmia Center Provider, MD Giovanni [address] [place] [address] Social History Tobacco Use Types Packs/Day Years Used Date Smoking Tobacco: Former Cigarettes Q uit: 10/03/1982 Alcohol Use Standard Drinks/Week Comments No 0 (1 standard drink = 0.6 oz pur e alcohol) Sex and Gender Information Value Date Recorded Sex Assigned at Not on file 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
--- OUTSIDE RECORDS SUMMARY | 2025-07-02 11:39 | XMS_ITS | Encounter Summary ---
Author Organization [facility] Address [address] [place] [address] Care Team Providers Care Barrel Charrer Name Role Phone Edgar Geiger MD Unavailable Unavailable Say Low MD Primary Care Provider [phone] Encounter Details Date Type Department Care Team (Late st Contact Info) Description 01/30/2018 Lab Requisition [facility] Care DermPath Lab [address] [place] [phone] Kumar Reno MD RETIRED Social History Tobacco Use Types Packs/Day Years Used Date Smoking Tobacco: Former Comments:QUIT SMOKING 30 YEA RS AGO Alcohol Use Standard Drinks/Week Comments No 0 (1 standard drink = 0.6 oz pur e alcohol) Sex and Gender Information Value Date Recorded Sex Assigned at Not on file 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 The specimen consists of a [id number], [id number] excision of skin. The specimen is serially sectioned and a construction sales representative section is submitted in cassette [...] characteristic determined by the Dermatopathology Laboratory at [facility]. These tests need not be, and therefore are not, approved by the [place] Food and Drug Administration. The tests are used for clinical purposes. Billing Codes Specimen Charges Stain Charges [id number] 1 4:54 PM CDT DERMATOPATHOLOGY LABORATORY Embedded Images 4:54 PM CDT DERMATOPATHOLOGY LABORATORY Pathology/Cytolog y TISSUE SPECIMEN FROM SKIN / Unknown 01/27/2018 01/30/2018 11:34 AM CDT us Kumar Reno MD LAB - PATHOLOGY/CYTOLOGY ORD ERABLES Final Result DERMATOPATHOLOGY LABORATORY [facility] - Department of Dermatology [address] [place] [address] 5th Floor Lab [address] [phone] documented in this encounter Visit Diagnoses Not on filedocumented in this encounter Care Teams Barrel Charrer Relationship Specialty Start Date End Date Say Low MD [address] [place] [address] PCP - General Internal Medicine 08/14/12 Edgar Geiger MD Cardiovascular Disease 08/14/12 documented as of this encounter
--- OUTSIDE RECORDS SUMMARY | 2025-07-02 11:39 | XMS_ITS | Clinical Summary ---
Author Organization [facility] Address [address] [place] [address] Care Team Providers Care Electrician Shop Name Role Phone Say Low MD Primary Care Provider [phone] Allergies No known active allergies Medications tamsulosin [...] mouth 2 (two) times a day Active atorvastatin (LIPITOR) 10 mg tablet Take 0.5 tablets (5 mg total) by mouth daily 45 tablet 2 05/15/20 24 Active losartan (COZAAR) 50 mg tablet Take 1.5 tablets (75 mg total) by mouth daily 45 tablet 11 09/05/20 24 025 Active spironolactone (ALDACTONE) 25 mg tablet TAKE 1 TABLET BY MOUTH EVERY DAY 90 tablet 3 05/03/20 25 Active Xarelto 15 mg tabletIndication s:Paroxysmal atrial fibrillation (HCC) TAKE 1 TABLET(15 MG) BY MOUTH DAILY 90 tablet 06/21/20 25 Active Xarelto 15 mg tabletIndication s:Paroxysmal atrial fibrillation (HCC) TAKE 1 TABLET(15 MG) BY MOUTH DAILY 90 tablet 03/18/20 25 025 Discontinued Active Problems Problem Noted [...] checks when necessary. The patient has a [id number] score of 4 (annualized risk of stroke 4%). I have therefore recommended continued anticoagulation for thromboprophylaxis. NICM (nonischemic cardiomyopathy) 07/19/2024 CAD S/P percutaneous coronary angioplasty 2020 Coronary artery disease (CAD) excluded 1 Hx of CABG 02/22/2020 Coronary artery disease invo lving coronary bypass graft of lummi heart with angina pectoris 02/22/2020 Assessment & [...] at that time. I did check, the Fixstars wraps are are coming to [facility]. So I think he should be able to get his MRI done. Preoperative cardiovascular examination 05/01/20 19 Assessment & Plan (05/01/2019 11:30 AM CDT): Due to the silent ischemia, CABG in 2003, he needs an aggressive evaluation. Nephrolithiasis 01/04/2019 Overview (01/04/2019): Added automatically from request for surgery [id number] Pacemaker 07/04/2017 Overview (07/04/2017): [employer] [place] [employer] DDD Essentio L111 pacemaker implanted on [...] HF symptoms attributed to substantial ventricular pacing, RETAIL EVENT AND SALES ASSISTANT with BiV pacing is recommended to improve [...] 6:52 PM CDT): Status post pacemaker placement, [employer] device for second-degree AV block Normal [...] Encounters Date Type Department Care Team Description 06/10/2025 11:00 AM CDT Ancillary Procedure Arrhythmia Center [address], [place] [address] Pacemaker (Primary Dx); NICM (nonischemic cardiomyopathy) ([facility]) from Last 3 Months Surgical History Surgery [...] a roof (2010) Hyperlipidemia Hypertension Diabetes mellitus CHF (congestive heart failure) (HCC) COPD (chronic obstructive pu lmonary disease) Chronic kidney disease Kidney stone Urolithiasis Arthritis [...] file Legal Sex Male 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 Gender Identity Male 07/10/2021 8:31 AM CDT Sexual Orientation Straight 06/12/2021 8: 44 AM CDT Obstetrics History Last Filed Vital Signs Vital Sign Reading Time Taken Comments Blood Pressure 124/66 12/14/2024 11:02 AM CDT Pulse 74 12/14/2024 11:02 AM CDT Temperature 37.1 C (98.8 F) 08/15/2024 1:03 PM FIRE APPARATUS SPRINKLER INSPECTOR Respiratory Rate 26 08/15/2024 5:50 PM FIRE APPARATUS SPRINKLER INSPECTOR Oxygen Saturation 96% 12/14/2024 11:02 AM CDT Inhaled Oxygen Concentration - - Weight 103 kg (227 lb) 12/14/2024 11:02 AM CDT Height 172.7 cm (5' 8) 08/15/2024 1:03 PM FIRE APPARATUS SPRINKLER INSPECTOR Body Mass Index 34.52 08/15/2024 1:03 PM FIRE APPARATUS SPRINKLER INSPECTOR Plan of Treatment Health Maintenance Due Date Last Done Comments Depression Screening 1942 Hepatitis B Screening 1960 Well Visit 65+ 2007 Pneumococcal vaccine 65+ (2 of 2 - PPSV23, PCV20, or PCV21) 11/22/2019 09/27/2019 Fall Risk Assessment 07/14/2022 07/14/2021 Influenza Vaccine (#1) 2025 08/20/2022, 2018 DTaP/Tdap/Td Vaccine (3 - Td or Tdap) 11/03/202910/2019, 09/27/2019 Abdominal Aortic Aneurysm (A AA) Screen Completed 09/14/2022, 01/04/2019, 02/11/2017 Zoster Vaccine Completed 11/06/2024, 08/20/2022 Medical Devices Implanted Type Area Handyperson Device Identifier Shelf Expiration Date Model / Serial / Lot Fixstars Tabby Acuity X4 3.9-5.2fr 2.6fr 86cm Otw Quadripolar Long Straight [id number] - [id number] - [id number] Implanted:Qty: 1 on 08/15/2024 by Wayne Davis MD at [facility] Lead [employer] Tabby [id number] 04/28/2026 [id number] / [id number] / Pacemaker-07/04 Implanted:11/2016 (Quantity not on file) Pacemaker Chest Wall [employer]M. [employer] Tabby Pacemaker Single Chamber Undraped Artist Model P Visionist 0.75x4.45x6.17 cm U228 - [id number] - [id number] Implanted:Qty: 1 on 08/15/2024 by Wayne Davis MD at [facility] Pacemaker [employer] Tabby [id number] 06/08/2026 [id number] / [id number] / [employer] [id number] Synergy Xd Monorail 3.5mm 32mm 144cm Delivery System 1 Access - S0 - [id number] Implanted:Qty: 1 on 07/13/2021 by Troy Shipley MD at [facility] Stent [employer] Tabby 03/11/2023 [id number] / [id number] / [id number] Description:LAD Explanted Type Area Handyperson Device Identifier Shelf Expiration Date Model / Serial / Lot [employer] [id number] Inlay Sellers 6fr 28cm Pusher Fluoro Marker Atraumatic Insertion Latex Free - [id number] Implanted:Qty: 1 on 01/17/2019 by Concetta Thurston MD at [facility] Explanted:Qty: 1 on 01/31/2019 by Elvin Carrillo NP Stent Left: Ureter [employer] [id number] 07/13/2023 [id number] / / [id number] Procedures Procedure Name Priority Date/Time Associated Diagnosis Comments DEVICE CHECK - REMOTE Routine 06/10/2025 9:10 AM CDT NICM (nonischemic cardiomyopathy) (HCC) CT ABDOMEN PELVIS WO CONTRAST Schedule Routine, Read Routine (OP Routine) 09/14/2022 9:43 AM FIRE APPARATUS SPRINKLER INSPECTOR Nephrolithiasis from Last 3 Months or Most Recently Relevant to Health Maintenance Results * DEVICE CHECK - REMOTE (06/10/2025 9:10 AM CDT) Anatomical Region Laterality Modality Other Narrative 06/12/2025 11:19 AM CDT Table formatting from the original result was not included. BiV PACEMAKER CHECK (REMOTE) Patient ID: Drew Newman is a 85 y.o. male. This patient received a [place] [employer] BiV Pacemaker. They had a routine remote transmission on 06/10/2025. Device implant indications: Nonischemic cardiomyopathy, Mobitz type 2 Interrogation of the patient's device demonstrates the following: Presenting EGM: A sensed Bi V paced @ 75 bpm Original Device Settings Right Atrium Right Ventricle Left Ventricle Sensitivity (mV) 0.5 mV 2.5 mV 2.5 mV Pacemaker Outputs 2.5 V @ 0.4 ms 2.0 V @ 0.4 ms 2.5 V @ 0.4 ms Testing Measurements Right Atrium Right Ventricle Left Ventricle Sensitivity (mV) 5.2 mV Paced mV Paced mV Impedence (Ohms) 445 ohms 469 ohms 879 ohms Pace Threshold 2.7 V @ 0.4 ms 0.5 V @ 0.4 ms Not done V @ ms Pacing % 27 % 100 % 100 % Battery Status: 10.5 years to SOFI Episodes last 90 days/Comments: AF Davis <1 %, longest duration 2 seconds. No new ventricular events NORMAL DEVICE FUNCTION PROGRAMMED MEDICATIONS: Anti-coagulant(s): Aspirin 81 mg, Xarelto 15 mg daily Anti-arrhythmic(s): Coreg 12.5 mg twice a day PLAN: 1) [employer] [place] [employer] BiV Pacemaker evaluation 2) [employer] [place] [employer] remote transmission scheduled in 3 months. 3) Programming appropriate for device settings Gisela Butler RN us Wayne Davis MD [facility] PRO CEDURES Final Result * CT Abdomen Pelvis WO Contrast (09/14/2022 9:43 AM FIRE APPARATUS SPRINKLER INSPECTOR) Anatomical Region Laterality Modality Body N/A Computed Tomogra phy 09/15/2022 10:0 0 AM FIRE APPARATUS SPRINKLER INSPECTOR Narrative 09/15/2022 10:11 AM FIRE APPARATUS SPRINKLER INSPECTOR EXAM DESCRIPTION: CT ABDOMEN PELVIS WO CONTRAST [...] Findings Committee. J Am Walter Radiol. 2017 May;14(8):7113-4960. THIS IS AN ELECTRONICALLY VERIFIED FINAL REPORT 09/15/2022 10:11 AM - Electronically signed by Ko Haro M.D. AG: JAMES Report ID: [id number] Reading Location: [id number] Procedure Note Ko Haro MD - 09/15/2022 [...] Findings Committee. J Am Walter Radiol. 2017 May;14(8):2445-3185. THIS IS AN ELECTRONICALLY VERIFIED FINAL REPORT 09/15/2022 10:11 AM - Electronically signed by Ko Haro M.D. AG: JAMES Report ID: [id number] Reading Location: [id number] Elvin Carrillo NP IMG CT PROCEDURES Final Result from Last 3 Months or Most Recently Relevant to Health Maintenance Insurance MEDICARE [facility] MEDICARE [facility] MEDICARE [facility] MEDICARE SUPPLEMENT Advance Directives For more information, please contact: [phone] Documents on File Type Date Recorded Patient Clinical Mental Health Counselor Expl anation ADVANCE DIRECTIVE 07/04/2017 Advance Di rective Checklist * Full Code (Latest Code Status on File) Date Activated Date Inactivated Comments 07/13/2021 3:49 PM 07/14/2021 2:07 PM Care Teams Electrician Shop Relationship Specialty Start Date End Date Say Low MD PCP - General 02/15/17
--- OUTSIDE RECORDS SUMMARY | 2025-07-02 11:39 | XMS_ITS | Encounter Summary ---
Author Organization [facility] Address [address] [place] [address] Care Team Providers Care Tire Recapping Machine Operator Name Role Phone Edgar Geiger MD Unavailable Unavailable Say Low MD Primary Care Provider [phone] Encounter Details Date Type Department Care Team (Late st Contact Info) Description 01/12/2018 Lab Requisition [facility] Care DermPath Lab [address] [place] [id number] Kumar [place] MD RETIRED Social History Tobacco Use Types Packs/Day Years Used Date Smoking Tobacco: Former Comments:QUIT SMOKING 30 YEA RS AGO Alcohol Use Standard Drinks/Week Comments No 0 (1 standard drink = 0.6 oz pur e alcohol) Sex and Gender Information Value Date Recorded Sex Assigned at Not on file 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 Jar 0. 8 6:41 PM CDT DERMATOPATHOLOGY [...] characteristic determined by the Dermatopathology Laboratory at [facility]. These tests need not be, and therefore are not, approved by the [place] Food and Drug Administration. The tests are used for clinical purposes. Billing Codes Specimen Charges Stain Charges 95052 1 8 6:41 PM CDT DERMATOPATHOLOGY LABORATORY Embedded Images 8 6:41 PM CDT DERMATOPATHOLOGY LABORATORY Pathology/Cytolog y TISSUE SPECIMEN FROM SKIN / Unknown 01/11/2018 01/12/2018 11:39 AM CDT Kumar [place] MD LAB - PATHOLOGY/CYTOLOGY ORD ERABLES Final Result DERMATOPATHOLOGY LABORATORY [facility] - Department of Dermatology [address] [place] [address], 5th Floor Lab [address] [phone] documented in this encounter Visit Diagnoses Not on filedocumented in this encounter Care Teams Tire Recapping Machine Operator Relationship Specialty Start Date End Date Say Low MD [address] [place] [address] PCP - General Internal Medicine 08/14/12 Edgar Geiger MD Cardiovascular Disease 08/14/12 documented as of this encounter
--- OUTSIDE RECORDS SUMMARY | 2025-07-02 11:39 | XMS_ITS | Clinical Summary ---
Author Organization [facility] [employer] Address [address] [place] [address] Care Team Providers Care Linux Solaris Administrator Name Role Phone Edgar Geiger MD Unavailable Unavailable Say Low MD Primary Care Provider Source Comments [facility] [employer],non-owned Affiliates and Associated Physician Practices is amultiple site organization consisting of ambulatory clinics and hospital sitesin [place], [place], [place] and [place]. This disclosure is being madepursuant to the Care Everywhere program and may not contain all information available regarding this patient. Last updated 18.[facility] [employer] Allergies No known active allergies Medications * Be aware that medications may not be up to date on this document. Alwaysverify current medications with the patient. omeprazole (PRILOSEC OTC) 20 MG tablet Take 20 mg by mouth daily before breakfast. Active metFORMIN (GLUCOPHAGE) 1000 MG tablet Take 1,000 mg by mouth 2 times daily with morning and evening meal. 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 Gender Identity Not on file Sexual [...] Name:Drew Newman Payer ID:[id number] (NAIC) Type:Commercial Address: [place] [id number] SELF PAY NO INSURANCE Member Subscriber Plan / Payer (Ef fective for All Dates) Name:Mellisa Drew G Member ID:Not on file Relation to Subscriber:Not on file Name:DREW NEWMAN Subscriber ID:Not on file (Home) Address: [address] [place] [address] Payer ID:Not on file Group ID:Not on file Type:Self Pay Address: [place], [place] MEDICARE Care Teams Linux Solaris Administrator Relationship Specialty Start Date End Date Say Low MD [address] [place] [address] PCP - General Internal Medicine 08/14/12 Edgar Geiger MD Cardiovascular Disease 08/14/12
--- OUTSIDE RECORDS SUMMARY | 2025-07-02 11:39 | XMS_ITS | Encounter Summary ---
Author Organization [facility] Address [address] [place] [address] Care Team Providers Care Limousine Driver Name Role Phone Say Low MD Primary Care Provider [phone] Unknown, Notinfile Primary Care Provider Unavail able Say Low MD Primary Care Provider [phone] Encounter Details Date Type Department Care Team (Late st Contact Info) Description 09/07/2016 Orders Only [facility]hythmia Center ProviderGiovanni MD [address] [place] [address] Social History Tobacco Use Types Packs/Day Years Used Date Smoking Tobacco: Former Cigarettes Q uit: 10/03/1982 Alcohol Use Standard Drinks/Week Comments No 0 (1 standard drink = 0.6 oz pur e alcohol) Sex and Gender Information Value Date Recorded Sex Assigned at Not on file 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 us Historical Provider [facility] HÉCTOR VENTURA Final Result documented in this encounter Visit Diagnoses Not on filedocumented in this encounter Care Teams Limousine Driver Relationship Specialty Start Date End Date Say Low MD PCP - General 10/13/15 02/10/17 Unknown, Notinfile PCP - General 02/11/17 02/14/17 Say oLw MD PCP - General 02/15/17 documented as of this encounter
== END 2025-07-02 10:57 | disposition home or self-care (01) ==
PROVIDERS: PCP Internal Medicine; Visit Provider Internal Medicine
DX: M19.011 Primary osteoarthritis, right shoulder (principal); R93.6 Abnormal findings on diagnostic imaging of limbs
CPT/HCPCS: 73030

== ENCOUNTER 2025-07-05 09:27 | Outpatient (CLI) | payer MEDICARE, SELFPAY ==
--- NOTE | ~2025-07-05 | CT_ITS ---
EXAMINATION: CT shoulder RT w con DATE: 07/05/2025 10:07 INDICATION: Right shoulder pain. TECHNIQUE: Computed tomography (CT) of the right shoulder was performed with 100 mL Omnipaque 350 intravenous contrast. Automated exposure control and iterative reconstruction technique were employed. The dose-length product was 345.53 mGy-cm. COMPARISON: Right shoulder radiographs 07/02/2025 FINDINGS: Alignment is normal. No fracture. There is severe osteoarthritis of acromioclavicular joint and moderate osteoarthritis of glenohumeral joint. There is narrowing of the subacromial space. There is mild fatty atrophy of supraspinatus muscle belly and moderate fatty atrophy of subscapularis muscle belly. IMPRESSION: 1. 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 2. Narrowing of the subacromial space, consistent with at least partial thickness rotator cuff tear. Reviewed, dictated and finalized at location E. IMPRESSION: 1. 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 2. Narrowing of the subacromial space, consistent with at least partial thickne ss rotator cuff tear.
--- OUTSIDE RECORDS SUMMARY | 2025-07-05 09:36 | XMS_ITS | Encounter Summary ---
Author Organization [facility] Address [address] [place] [address] Care Team Providers Care Hardening Machine Operator Helper Name Role Phone Say Low MD Primary Care Provider [phone] Unknown, Notinfile Primary Care Provider Unavail able Say Low MD Primary Care Provider [phone] Encounter Details Date Type Department Care Team (Late st Contact Info) Description 09/07/2016 Orders Only Ar[facility]hythmia Center ProviderGiovanni MD [address] [place] [address] Social History Tobacco Use Types Packs/Day Years Used Date Smoking Tobacco: Former Cigarettes Q uit: 10/03/1982 Alcohol Use Standard Drinks/Week Comments No 0 (1 standard drink = 0.6 oz pur e alcohol) Sex and Gender Information Value Date Recorded Sex Assigned at Not on file 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
--- OUTSIDE RECORDS SUMMARY | 2025-07-05 09:36 | XMS_ITS | Encounter Summary ---
Author Organization [facility] Address [address] [place] [address] Care Team Providers Care Director Of Rehabilitative Services Name Role Phone Edgar Geiger MD Unavailable Unavailable Say Low MD Primary Care Provider [phone] Encounter Details Date Type Department Care Team (Late st Contact Info) Description 01/12/2018 Lab Requisition [facility] Care DermPath Lab [address] [place] [id number] Kumar [place] MD RETIRED Social History Tobacco Use Types Packs/Day Years Used Date Smoking Tobacco: Former Comments:QUIT SMOKING 30 YEA RS AGO Alcohol Use Standard Drinks/Week Comments No 0 (1 standard drink = 0.6 oz pur e alcohol) Sex and Gender Information Value Date Recorded Sex Assigned at Not on file 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 Jar 0. 8 6:41 PM CDT DERMATOPATHOLOGY [...] determined by the Dermatopathology Laboratory at [facility]. These tests need not be, and therefore are not, approved by the [place] Food and Drug Administration. The tests are used for clinical purposes. Billing Codes Specimen Charges Stain Charges 28638 1 8 6:41 PM CDT DERMATOPATHOLOGY LABORATORY Embedded Images 8 6:41 PM CDT DERMATOPATHOLOGY LABORATORY Pathology/Cytolog y TISSUE SPECIMEN FROM SKIN / Unknown 01/11/2018 01/12/2018 11:39 AM CDT Kumar [place] MD LAB - PATHOLOGY/CYTOLOGY ORD ERABLES Final Result DERMATOPATHOLOGY LABORATORY [facility] - Department of Dermatology [address] [place] [address], 5th Floor Lab [address] [phone] documented in this encounter Visit Diagnoses Not on filedocumented in this encounter Care Teams Director Of Rehabilitative Services Relationship Specialty Start Date End Date Say Low MD [address] [place] [address] PCP - General Internal Medicine 08/14/12 Edgar Geiger MD Cardiovascular Disease 08/14/12 documented as of this encounter
--- OUTSIDE RECORDS SUMMARY | 2025-07-05 09:36 | XMS_ITS | Clinical Summary ---
Author Organization [facility] [employer] Address [address] [facility] [place] [address] Care Team Providers Care Telemetry Technician Name Role Phone Edgar Geiger MD Unavailable Unavailable Say Low MD Primary Care Provider [phone] Source Comments [facility] [employer],non-owned Affiliates and Associated Physician Practices is amultiple site organization consisting of ambulatory clinics and hospital sitesin [place], [place], [place] and [place]. This disclosure is being madepursuant to the Care Everywhere program and may not contain all information available regarding this patient. Last updated 18.[facility] [employer] Allergies No known active allergies Medications * Be aware that medications may not be up to date on this document. Alwaysverify current medications with the patient. omeprazole (PRILOSEC OTC) 20 MG tablet Take 20 mg by mouth daily before breakfast. Active metFORMIN (GLUCOPHAGE) 1000 MG tablet Take 1,000 mg by mouth 2 times daily with morning and evening meal. 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 Gender Identity Not on file Sexual Orientation [...] to complete this topic Insurance MEDICARE [facility] Address: [place] [address] [employer] Member Subscriber Plan / Payer (Ef fective for All Dates) Name:NardaalexandraDrew rangel Relation to Subscriber:Self Name:Drew Newman Payer ID:[id number] (NAIC) Type:Commercial Address: [place] [id number] SELF PAY NO INSURANCE Member Subscriber Plan / Payer (Ef fective for All Dates) Name:Mellisa Drew G Member ID:Not on file Relation to Subscriber:Not on file Name:DREW NEWMAN Subscriber ID:Not on file (Home) Address: [address] [place] [address] Payer ID:Not on file Group ID:Not on file Type:Self Pay Address: [place], [place] MEDICARE Care Teams Telemetry Technician Relationship Specialty Start Date End Date Say Low MD [address] [place] [address] PCP - General Internal Medicine 08/14/12 Edgar Geiger MD Cardiovascular Disease 08/14/12
--- OUTSIDE RECORDS SUMMARY | 2025-07-05 09:36 | XMS_ITS | Encounter Summary ---
Author Organization [facility] Address [address] [place] [address] Care Team Providers Care Sports Marketing Internship Name Role Phone Say Low MD Primary Care Provider [phone] Unknown, Notinfile Primary Care Provider Unavail able Say Low MD Primary Care Provider [phone] Encounter Details Date Type Department Care Team (Late st Contact Info) Description 10/01/2016 Orders Only Arrhythmia Center Provider, MD [place] [address] [place] [address] Social History Tobacco Use Types Packs/Day Years Used Date Smoking Tobacco: Former Cigarettes Q uit: 10/03/1982 Alcohol Use Standard Drinks/Week Comments No 0 (1 standard drink = 0.6 oz pur e alcohol) Sex and Gender Information Value Date Recorded Sex Assigned at Not on file 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
--- OUTSIDE RECORDS SUMMARY | 2025-07-05 09:36 | XMS_ITS | Clinical Summary ---
Author Organization [facility] Address [address] [place] [address] Care Team Providers Care International Manager Name Role Phone Say Low MD Primary Care Provider [phone] Allergies No known active allergies Medications tamsulosin [...] checks when necessary. The patient has a [id number] score of 4 (annualized risk of stroke 4%). I have therefore recommended continued anticoagulation for thromboprophylaxis. 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 I did check, the [employer] wraps are are coming to [facility]. So I think he should be able to get his MRI done. Preoperative cardiovascular examination 05/01/20 19 Assessment & Plan (05/01/2019 11:30 AM CDT): Due to the silent ischemia, CABG in 2003, he needs an aggressive evaluation. Nephrolithiasis 01/04/2019 Overview (01/04/2019): Added automatically from request for surgery [id number] Pacemaker 07/04/2017 Overview (07/04/2017): [employer] DDD Essentio L111 pacemaker implanted on [...] HF symptoms attributed to substantial ventricular pacing, SHIRT IRONER with BiV pacing is recommended to improve [...] 6:52 PM CDT): Status post pacemaker placement, [employer] device for second-degree AV block Normal [...] CDT Ancillary Procedure Arrhythmia Center [address] [facility] [address] [address] Pacemaker (Primary Dx); NICM (nonischemic cardiomyopathy) ([facility]) from Last 3 Months Surgical History Surgery [...] on file Legal Sex Male 8:04 PM CABLE BRAIDER Gender Identity Male 07/10/2021 8:31 AM CDT Sexual Orientation Straight 06/12/2021 8: 44 AM CDT Obstetrics History Last Filed Vital Signs Vital Sign Reading Time Taken Comments Blood Pressure 124/66 12/14/2024 11:02 AM CDT Pulse 74 12/14/2024 11:02 AM CDT Temperature 37.1 C (98.8 F) 08/15/2024 1:03 PM CABLE BRAIDER Respiratory Rate 26 08/15/2024 5:50 PM CABLE BRAIDER Oxygen Saturation 96% 12/14/2024 11:02 AM CDT Inhaled Oxygen Concentration - - Weight 103 kg (227 lb) 12/14/2024 11:02 AM CDT Height 172.7 cm (5' 8) 08/15/2024 1:03 PM CABLE BRAIDER Body Mass Index 34.52 08/15/2024 1:03 PM CABLE BRAIDER Plan of Treatment Health Maintenance Due Date [...] 11/06/2024, 08/20/2022 Medical Devices Implanted Type Area Screw Machine Operator Device Identifier Shelf Expiration Date Model / Serial / Lot [employer] Tabby Acuity X4 3.9-5.2fr 2.6fr 86cm Otw Quadripolar Long Straight [id number] - [id number] - [id number] Implanted:Qty: 1 on 08/15/2024 by Wayne Davis MD at [facility] Lead [employer] Tabby [id number] 04/28/2026 [id number] / [id number] / Pacemaker-07/04 Implanted:11/2016 (Quantity not on file) Pacemaker Chest Wall [employer] Tabby Pacemaker Single Chamber Parts Processor P Visionist 0.75x4.45x6.17 cm U228 - [id number] - [id number] Implanted:Qty: 1 on 08/15/2024 by Wayne Davis MD at [facility] Pacemaker [employer] Tabby [id number] 06/08/2026 [id number] / [id number] / [employer] Tabby [id number] Synergy Xd Monorail 3.5mm 32mm 144cm Delivery System 1 Access - S0 - [id number] Implanted:Qty: 1 on 07/13/2021 by Troy Shipley MD at [facility] Stent [employer] Tabby 03/11/2023 [id number] / 0 / [id number] Description:LAD Explanted Type Area Screw Machine Operator Device Identifier Shelf Expiration Date Model / Serial / Lot [employer] [id number] Inlay [place] 6fr 28cm Pusher Fluoro Marker Atraumatic Insertion Latex Free - [id number] Implanted:Qty: 1 on 01/17/2019 by Concetta Thurston MD at [facility] Explanted:Qty: 1 on 01/31/2019 by Elvin Carrillo NP Stent Left: Ureter [employer] [id number] 07/13/2023 [id number] / / [id number] Procedures Procedure Name Priority Date/Time Associated Diagnosis Comments DEVICE CHECK - REMOTE Routine 06/10/2025 9:10 AM CDT NICM (nonischemic cardiomyopathy) (HCC) CT ABDOMEN PELVIS WO CONTRAST Schedule Routine, Read Routine (OP Routine) 09/14/2022 9:43 AM CABLE BRAIDER Nephrolithiasis from Last 3 Months or Most Recently Relevant to Health Maintenance Results * DEVICE CHECK - REMOTE (06/10/2025 9:10 AM CDT) Anatomical Region Laterality Modality Other Narrative 06/12/2025 11:19 AM CDT Table formatting from the original result was not included. BiV PACEMAKER CHECK (REMOTE) Patient ID: Drew Newman is a 85 y.o. male. This patient received a [employer] BiV Pacemaker. They had a routine [...] to SOFI Episodes last 90 days/Comments: AF [place] <1 %, longest duration 2 seconds. No new ventricular events NORMAL DEVICE FUNCTION PROGRAMMED MEDICATIONS: Anti-coagulant(s): Aspirin 81 mg, Xarelto 15 mg daily Anti-arrhythmic(s): Coreg 12.5 mg twice a day PLAN: 1) [employer] BiV Pacemaker evaluation 2) [employer] remote transmission scheduled in 3 months. 3) Programming appropriate for device settings Gisela Butler RN us Wayne Davis MD CV CARDIAC SERVICES PRO CEDURES Final Result * CT Abdomen Pelvis WO Contrast (09/14/2022 9:43 AM CABLE BRAIDER) Anatomical Region Laterality Modality Body N/A Computed Tomogra phy 09/15/2022 10:0 0 AM CABLE BRAIDER Narrative 09/15/2022 10:11 AM CABLE BRAIDER EXAM DESCRIPTION: CT ABDOMEN PELVIS WO CONTRAST [...] Findings Committee. J Am Walter Radiol. 2017 May;14(8):2691-3386. THIS IS AN ELECTRONICALLY VERIFIED FINAL REPORT 09/15/2022 10:11 AM - Electronically signed by Ko Haro M.D. AG: JAMES Report ID: [id number] Reading Location: [id number] Procedure Note Ko Haro MD - 09/15/2022 [...] Findings Committee. J Am Walter Radiol. 2017 May;14(8):3803-3269. THIS IS AN ELECTRONICALLY VERIFIED FINAL REPORT 09/15/2022 10:11 AM - Electronically signed by Ko Haro M.D. AG: JAMES Report ID: [id number] Reading Location: [id number] Elvin Carrillo NP IMG CT PROCEDURES Final Result from Last 3 Months or Most Recently Relevant to Health Maintenance Insurance MEDICARE [facility] MEDICARE [facility] MEDICARE [facility] MEDICARE SUPPLEMENT Advance Directives For more information, please contact: [phone] Documents on File Type Date Recorded Patient Arbor Press Operator Expl anation ADVANCE DIRECTIVE 07/04/2017 Advance Di rective Checklist * Full Code (Latest Code Status on File) Date Activated Date Inactivated Comments 07/13/2021 3:49 PM 07/14/2021 2:07 PM Care Teams International Manager Relationship Specialty Start Date End Date Say Low MD PCP - General 02/15/17
--- OUTSIDE RECORDS SUMMARY | 2025-07-05 09:36 | XMS_ITS | Clinical Summary ---
Author Organization [facility] Address [address] [place] [address] Phone Care Team Providers Care Operations Officer Afloat Name Role Phone Say Low MD Primary Care Provider Allergies No known active allergies Medications allopurinol [...] at that time. I did check, the [employer] wraps are are coming to [facility]. So I think he should be able to get his MRI done. 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
--- OUTSIDE RECORDS SUMMARY | 2025-07-05 09:36 | XMS_ITS | Encounter Summary ---
Author Organization [facility] Address [address] [address] Care Team Providers Care Automobile Repair Service Estimator Name Role Phone Say Low MD Primary Care Provider [phone] Encounter Details Date Type Department Care Team (Late st Contact Info) Description 02/17/2017 Orders Only Arrhythmia Center ProviderGiovanni MD [address] [place] [address] Social History Tobacco Use Types Packs/Day Years Used Date Smoking Tobacco: Former Cigarettes Q uit: 10/03/1982 Alcohol Use Standard Drinks/Week Comments No 0 (1 standard drink = 0.6 oz pur e alcohol) Sex and Gender Information Value Date Recorded Sex Assigned at Not on file 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
--- OUTSIDE RECORDS SUMMARY | 2025-07-05 09:36 | XMS_ITS | Encounter Summary ---
Author Organization [facility] Address [address] [facility] [address] [place] [address] Care Team Providers Care Welder Repair Name Role Phone Say Low MD Primary Care Provider Unknown, Notinfile Primary Care Provider Unavail able Say Low MD Primary Care Provider [phone] Encounter Details Date Type Department Care Team (Late st Contact Info) Description 09/08/2016 Orders Only Arrhythmia Center ProviderGiovanni MD [address] [place] [address] Social History Tobacco Use Types Packs/Day Years Used Date Smoking Tobacco: Former Cigarettes Q uit: 10/03/1982 Alcohol Use Standard Drinks/Week Comments No 0 (1 standard drink = 0.6 oz pur e alcohol) Sex and Gender Information Value Date Recorded Sex Assigned at Not on file 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
--- OUTSIDE RECORDS SUMMARY | 2025-07-05 09:36 | XMS_ITS | Encounter Summary ---
Author Organization [facility] Address [address] [place] [address] Care Team Providers Care Science Tutor Name Role Phone Edgar Geiger MD Unavailable Unavailable Say Low MD Primary Care Provider [phone] Encounter Details Date Type Department Care Team (Late st Contact Info) Description 01/30/2018 Lab Requisition [facility] Care DermPath Lab [address] [place] [phone] Kumar Reno MD RETIRED Social History Tobacco Use Types Packs/Day Years Used Date Smoking Tobacco: Former Comments:QUIT SMOKING 30 YEA RS AGO Alcohol Use Standard Drinks/Week Comments No 0 (1 standard drink = 0.6 oz pur e alcohol) Sex and Gender Information Value Date Recorded Sex Assigned at Not on file 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 The specimen consists of a [id number], 25u68u1er excision of skin. The specimen is serially sectioned and a small business sales representative section is submitted in cassette [...] purposes. Billing Codes Specimen Charges Stain Charges 95279 1 4:54 PM CDT DERMATOPATHOLOGY LABORATORY Embedded Images 4:54 PM CDT DERMATOPATHOLOGY LABORATORY Pathology/Cytolog y TISSUE SPECIMEN FROM SKIN / Unknown 01/27/2018 01/30/2018 11:34 AM CDT us Kumar Reno MD LAB - PATHOLOGY/CYTOLOGY ORD ERABLES Final Result DERMATOPATHOLOGY LABORATORY [facility] - Department of Dermatology [address] [place] [address] 5th Floor Lab [address] [phone] documented in this encounter Visit Diagnoses Not on filedocumented in this encounter Care Teams Science Tutor Relationship Specialty Start Date End Date Say Low MD [address] [place] [address] PCP - General Internal Medicine 08/14/12 Edgar Geiger MD Cardiovascular Disease 08/14/12 documented as of this encounter
[2025-07-05 09:56] LABS: Estimated Glomerular Filt Rate 32
== END 2025-07-05 09:28 | disposition home or self-care (01) ==
PROVIDERS: PCP Internal Medicine; Visit Provider Internal Medicine
DX: M19.011 Primary osteoarthritis, right shoulder (principal)
CPT/HCPCS: 73201; Q9967

== ENCOUNTER 2025-07-15 12:41 | Outpatient (CLI) | payer MEDICARE, SELFPAY ==
--- NOTE | ~2025-07-15 | XR_ITS ---
Abdominal radiograph(s) INDICATION: R 10.9, unspecified abdominal pain COMPARISON: CT abdomen and pelvis 02/07/2025 TECHNIQUE: 2 view supine abdomen FINDINGS: Small right renal stone. Small left renal stone. No ureteral or bladder calculi identified. Scattered colonic stool. Small bowel loops not well seen. No evidence of organomegaly. No acute bony abnormality. IMPRESSION: 1. Small bilateral renal stone. 2. Otherwise no abnormality identified. Reviewed, dictated and finalized at location R.
[2025-07-15 13:11] LABS: Hematocrit 40.3 % (42.0-52.0); Hemoglobin 12.9 g/dL (14.0-18.0); Immature Granulocyte Percent A 0.4 % (0-0.5); Lymphocytes Absolute Auto 1.17 K/mm3 (0.9-3.2); Mean Corpuscular HGB Conc 32.0 g/dl (32-36); Mean Corpuscular Hemoglobin 32.6 pg (26-34); Mean Corpuscular Volume 101.8 fl (80-100); Nucleated Red Blood Cells Absolute Auto 0.000 K/mm3 (0.0-0.012); Nucleated Red Blood Cells Perc 0.0 % (0.0-0.2); Platelet Count Result 194 k/mm3 (150-375); Red Blood Count 3.96 M/mm3 (4.6-6.20); White Blood Count 7.6 K/mm3 (4.5-10.0)
[2025-07-15 13:34] LABS: Add Urine Microscopic? YES; Appearance Urine Clear (Clear); Glucose Urine UA 3+ mg/dL (Negative); Leukocyte Esterase Ur 2+ LEU/UL (Negative); Nitrate Urine Negative (Negative); Non Pathogenic Casts 0-2; Specific Grav Ur 1.015 (1.001-1.035)
--- OUTSIDE RECORDS SUMMARY | 2025-07-15 13:41 | XMS_ITS | Encounter Summary ---
Author Organization [facility] Address [address] [facility] [address] [place] [address] Care Team Providers Care Chef Broiler Or Fry Name Role Phone Say Low MD Primary Care Provider [phone] Unknown, Notinfile Primary Care Provider Unavail able Say Low MD Primary Care Provider [phone] Encounter Details Date Type Department Care Team (Late st Contact Info) Description 10/01/2016 Orders Only Arrhythmia Center Provider, MD Giovanni [address] [place] [address] Social History Tobacco Use Types Packs/Day Years Used Date Smoking Tobacco: Former Cigarettes Q uit: 10/03/1982 Alcohol Use Standard Drinks/Week Comments No 0 (1 standard drink = 0.6 oz pur e alcohol) Sex and Gender Information Value Date Recorded Sex Assigned at Not on file 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
--- OUTSIDE RECORDS SUMMARY | 2025-07-15 13:41 | XMS_ITS | Encounter Summary ---
Author Organization [facility] Address [address] [place] [address] Care Team Providers Care Medical Director Name Role Phone Edgar Geiger MD Unavailable Unavailable Say Low MD Primary Care Provider [phone] Encounter Details Date Type Department Care Team (Late st Contact Info) Description 01/12/2018 Lab Requisition [facility] Care DermPath Lab [address] [place] [phone] Kumar Reno MD RETIRED Social History Tobacco Use Types Packs/Day Years Used Date Smoking Tobacco: Former Comments:QUIT SMOKING 30 YEA RS AGO Alcohol Use Standard Drinks/Week Comments No 0 (1 standard drink = 0.6 oz pur e alcohol) Sex and Gender Information Value Date Recorded Sex Assigned at Not on file 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 Jar 0. 8 6:41 PM CDT DERMATOPATHOLOGY [...] determined by the Dermatopathology Laboratory at [facility]. These tests need not be, and therefore are not, approved by the [place] Food and Drug Administration. The tests are used for clinical purposes. Billing Codes Specimen Charges Stain Charges 74091 1 8 6:41 PM CDT DERMATOPATHOLOGY LABORATORY Embedded Images 8 6:41 PM CDT DERMATOPATHOLOGY LABORATORY Pathology/Cytolog y TISSUE SPECIMEN FROM SKIN / Unknown 01/11/2018 01/12/2018 11:39 AM CDT Kumar Reno MD LAB - PATHOLOGY/CYTOLOGY ORD ERABLES Final Result DERMATOPATHOLOGY LABORATORY [facility] - Department of Dermatology [address] [place] [address], 5th Floor Lab [address] [phone] documented in this encounter Visit Diagnoses Not on filedocumented in this encounter Care Teams Medical Director Relationship Specialty Start Date End Date Say Low MD [address] [place] [address] PCP - General Internal Medicine 08/14/12 Edgar Geiger MD Cardiovascular Disease 08/14/12 documented as of this encounter
--- OUTSIDE RECORDS SUMMARY | 2025-07-15 13:41 | XMS_ITS | Encounter Summary ---
Author Organization [facility] Address [address] [facility] [address] [place] [address] Care Team Providers Care Wash House Supervisor Name Role Phone Say Low MD Primary Care Provider [phone] Unknown, Notinfile Primary Care Provider Unavail able Say Low MD Primary Care Provider [phone] Encounter Details Date Type Department Care Team (Late st Contact Info) Description 09/08/2016 Orders Only Arrhythmia Center ProviderGiovanni MD [address] [place] [address] Social History Tobacco Use Types Packs/Day Years Used Date Smoking Tobacco: Former Cigarettes Q uit: 10/03/1982 Alcohol Use Standard Drinks/Week Comments No 0 (1 standard drink = 0.6 oz pur e alcohol) Sex and Gender Information Value Date Recorded Sex Assigned at Not on file 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
--- OUTSIDE RECORDS SUMMARY | 2025-07-15 13:41 | XMS_ITS | Encounter Summary ---
Author Organization [facility] Address [address] [address] Care Team Providers Care Student Success Advisor Name Role Phone Say Low MD Primary Care Provider [phone] Encounter Details Date Type Department Care Team (Late st Contact Info) Description 02/17/2017 Orders Only Arrhythmia Center ProviderGiovanni MD [address] [place] [address] Social History Tobacco Use Types Packs/Day Years Used Date Smoking Tobacco: Former Cigarettes Q uit: 10/03/1982 Alcohol Use Standard Drinks/Week Comments No 0 (1 standard drink = 0.6 oz pur e alcohol) Sex and Gender Information Value Date Recorded Sex Assigned at Not on file 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
--- OUTSIDE RECORDS SUMMARY | 2025-07-15 13:41 | XMS_ITS | Encounter Summary ---
Author Organization [facility] Address [address] [facility] [address] [place] [address] Care Team Providers Care Care Taker Name Role Phone Say Low MD Primary Care Provider [phone] Unknown, Notinfile Primary Care Provider Unavail able Say Low MD Primary Care Provider [phone] Encounter Details Date Type Department Care Team (Late st Contact Info) Description 09/07/2016 Orders Only Arrhythmia Center ProviderGiovanni MD [address] [place] [address] Social History Tobacco Use Types Packs/Day Years Used Date Smoking Tobacco: Former Cigarettes Q uit: 10/03/1982 Alcohol Use Standard Drinks/Week Comments No 0 (1 standard drink = 0.6 oz pur e alcohol) Sex and Gender Information Value Date Recorded Sex Assigned at Not on file 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
--- OUTSIDE RECORDS SUMMARY | 2025-07-15 13:41 | XMS_ITS | Clinical Summary ---
Author Organization [facility] [employer] Address [address] [facility] [place] [address] Care Team Providers Care Structural Iron Erector Name Role Phone Edgar Geiger MD Unavailable Unavailable Say Low MD Primary Care Provider [phone] Source Comments [facility] [employer] [facility]non-owned Affiliates and Associated Physician Practices is amultiple site organization consisting of ambulatory clinics and hospital sitesin [place], [place], [place] and [place]. This disclosure is being madepursuant to the Care Everywhere program and may not contain all information available regarding this patient. Last updated 18.[facility] Allergies No known active allergies Medications * Be aware that medications may not be up to date on this document. Alwaysverify current medications with the patient. omeprazole (PRILOSEC OTC) 20 MG tablet Take 20 mg by mouth daily before breakfast. Active metFORMIN (GLUCOPHAGE) 1000 MG tablet Take 1,000 mg by mouth 2 times daily with morning and evening meal. 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 Gender Identity Not on file Sexual Orientation [...] Name:Drew Newman Payer ID:[id number] (NAIC) Type:Commercial Address: [place] [id number] SELF PAY NO INSURANCE Member Subscriber Plan / Payer (Ef fective for All Dates) Name:Mellisa Drew G Member ID:Not on file Relation to Subscriber:Not on file Name:DREW NEWMAN Subscriber ID:Not on file (Home) Address: [address] [place] [address] Payer ID:Not on file Group ID:Not on file Type:Self Pay Address: [place], [place] MEDICARE Care Teams Structural Iron Erector Relationship Specialty Start Date End Date Say Low MD [address] [place] [address] PCP - General Internal Medicine 08/14/12 Edgar Geiger MD Cardiovascular Disease 08/14/12
--- OUTSIDE RECORDS SUMMARY | 2025-07-15 13:41 | XMS_ITS | Clinical Summary ---
Author Organization [facility] Address [address] [place] [address] Care Team Providers Care Inspector Cold Working Name Role Phone Say Low MD Primary Care Provider [phone] Allergies No known active allergies Medications tamsulosin [...] checks when necessary. The patient has a IOA8YP2-YJLf score of 4 (annualized risk of stroke [...] at that time. I did check, the [employer] wraps are are coming to [facility]. So I think he should be able to get his MRI done. Preoperative cardiovascular examination 05/01/20 19 Assessment & Plan (05/01/2019 11:30 AM CDT): Due to the silent ischemia, CABG in 2003, he needs an aggressive evaluation. 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 pacemaker implanted on [...] HF symptoms attributed to substantial ventricular pacing, WORKFORCE MANAGEMENT CONSULTANT with BiV pacing is recommended to improve [...] 6:52 PM CDT): Status post pacemaker placement, [employer] device for second-degree AV block Normal [...] Ancillary Procedure Arrhythmia Center [address] [facility] [address], [place] [address] Pacemaker (Primary Dx); NICM (nonischemic cardiomyopathy) ([facility]) from Last 3 Months Surgical History [...] on file Legal Sex Male 8:04 PM MODELING AGENT Gender Identity Male 07/10/2021 8:31 AM CDT Sexual Orientation Straight 06/12/2021 8: 44 AM CDT Obstetrics History Last Filed Vital Signs Vital Sign Reading Time Taken Comments Blood Pressure 124/66 12/14/2024 11:02 AM CDT Pulse 74 12/14/2024 11:02 AM CDT Temperature 37.1 C (98.8 F) 08/15/2024 1:03 PM MODELING AGENT Respiratory Rate 26 08/15/2024 5:50 PM MODELING AGENT Oxygen Saturation 96% 12/14/2024 11:02 AM CDT Inhaled Oxygen Concentration - - Weight 103 kg (227 lb) 12/14/2024 11:02 AM CDT Height 172.7 cm (5' 8) 08/15/2024 1:03 PM MODELING AGENT Body Mass Index 34.52 08/15/2024 1:03 PM MODELING AGENT Plan of Treatment Health Maintenance Due Date [...] 11/06/2024, 08/20/2022 Medical Devices Implanted Type Area Cap Machine Operator Device Identifier Shelf Expiration Date Model / Serial / Lot [employer]uru Tabby Acuity X4 3.9-5.2fr 2.6fr 86cm Otw Quadripolar Long Straight 4671 - [id number] - [id number] Implanted:Qty: 1 on 08/15/2024 by Wayne Davis MD at [facility] Lead [employer] Tabby [id number] 04/28/2026 [id number] / [id number] / Pacemaker-07/04 Implanted:11/2016 (Quantity not on file) Pacemaker Chest Wall [employer] C.R.M. [employer] Tabby Pacemaker Single Chamber Leather Goods Assembler P Visionist 0.75x4.45x6.17 cm U228 - [id number] - [id number] Implanted:Qty: 1 on 08/15/2024 by Wayne Davis MD at [facility] Pacemaker [employer] Tabby [id number] 06/08/2026 [id number] / [id number] / [employer] Tabby [id number] Synergy Xd Monorail 3.5mm 32mm 144cm Delivery System 1 Access - S0 - [id number] Implanted:Qty: 1 on 07/13/2021 by Troy Shipley MD at [facility] Stent [employer] Tabby 03/11/2023 [id number] / 0 / [id number] Description:LAD Explanted Type Area Cap Machine Operator Device Identifier Shelf Expiration Date Model / Serial / Lot [employer] [id number] Inlay Rex 6fr 28cm Pusher Fluoro Marker Atraumatic Insertion Latex Free - [id number] Implanted:Qty: 1 on 01/17/2019 by Concetta Thurston MD at [facility] Explanted:Qty: 1 on 01/31/2019 by Elvin Carrillo NP Stent Left: Ureter [employer] [id number] 07/13/2023 [id number] / / [id number] Procedures Procedure Name Priority Date/Time Associated Diagnosis Comments DEVICE CHECK - REMOTE Routine 06/10/2025 9:10 AM CDT NICM (nonischemic cardiomyopathy) (HCC) CT ABDOMEN PELVIS WO CONTRAST Schedule Routine, Read Routine (OP Routine) 09/14/2022 9:43 AM MODELING AGENT Nephrolithiasis from Last 3 Months or Most Recently Relevant to Health Maintenance Results * DEVICE CHECK - REMOTE (06/10/2025 9:10 AM CDT) Anatomical Region Laterality Modality Other Narrative 06/12/2025 11:19 AM CDT Table formatting from the original result was not included. BiV PACEMAKER CHECK (REMOTE) Patient ID: Drew Newman is a 85 y.o. male. This patient received a Ruskin scientific BiV Pacemaker. They had a routine [...] to SOFI Episodes last 90 days/Comments: AF [place] <1 %, longest duration 2 seconds. No new ventricular events NORMAL DEVICE FUNCTION PROGRAMMED MEDICATIONS: Anti-coagulant(s): Aspirin 81 mg, Xarelto 15 mg daily Anti-arrhythmic(s): Coreg 12.5 mg twice a day PLAN: 1) Ruskin scientific BiV Pacemaker evaluation 2) [employer]kin scientific remote transmission scheduled in 3 months. 3) Programming appropriate for device settings Gisela Butler RN us Wayne Davis MD CV CARDIAC SERVICES PRO CEDURES Final Result * CT Abdomen Pelvis WO Contrast (09/14/2022 9:43 AM MODELING AGENT) Anatomical Region Laterality Modality Body N/A Computed Tomogra phy 09/15/2022 10:0 0 AM MODELING AGENT Narrative 09/15/2022 10:11 AM MODELING AGENT EXAM DESCRIPTION: CT ABDOMEN PELVIS WO CONTRAST [...] Findings Committee. J Am Walter Radiol. 2017 May;14(8):9706-7653. THIS IS AN ELECTRONICALLY VERIFIED FINAL REPORT 09/15/2022 10:11 AM - Electronically signed by Ko Haro M.D. AG: JAMES Report ID: [id number] Reading Location: [id number] Procedure Note Ko Haro MD - 09/15/2022 [...] Findings Committee. J Am Walter Radiol. 2017 May;14(8):4371-6701. THIS IS AN ELECTRONICALLY VERIFIED FINAL REPORT 09/15/2022 10:11 AM - Electronically signed by Ko Haro M.D. AG: JAMES Report ID: [id number] Reading Location: [id number] Elvin Carrillo NP IMG CT PROCEDURES Final Result from Last 3 Months or Most Recently Relevant to Health Maintenance Insurance MEDICARE [facility] MEDICARE [facility] MEDICARE [facility] MEDICARE SUPPLEMENT Advance Directives For more information, please contact: [phone] Documents on File Type Date Recorded Patient Climatologist Expl anation ADVANCE DIRECTIVE 07/04/2017 Advance Di rective Checklist * Full Code (Latest Code Status on File) Date Activated Date Inactivated Comments 07/13/2021 3:49 PM 07/14/2021 2:07 PM Care Teams Inspector Cold Working Relationship Specialty Start Date End Date Say Low MD PCP - General 02/15/17
--- OUTSIDE RECORDS SUMMARY | 2025-07-15 13:41 | XMS_ITS | Encounter Summary ---
Author Organization [facility] Address [address] [place] [address] Care Team Providers Care Millstone Cleaner Name Role Phone Edgar Geiger MD Unavailable Unavailable Say Low MD Primary Care Provider [phone] Encounter Details Date Type Department Care Team (Late st Contact Info) Description 01/30/2018 Lab Requisition [facility] Care DermPath Lab [address] [place] [id number] Kumar Reno MD RETIRED Social History Tobacco Use Types Packs/Day Years Used Date Smoking Tobacco: Former Comments:QUIT SMOKING 30 YEA RS AGO Alcohol Use Standard Drinks/Week Comments No 0 (1 standard drink = 0.6 oz pur e alcohol) Sex and Gender Information Value Date Recorded Sex Assigned at Not on file 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 The specimen consists of a [id number], [id number] excision of skin. The specimen is serially sectioned and a union contract representative section is submitted in cassette 1. [...] characteristic determined by the Dermatopathology Laboratory at [facility]. These tests need not be, and therefore are not, approved by the [place] Food and Drug Administration. The tests are used for clinical purposes. Billing Codes Specimen Charges Stain Charges 32340 1 4:54 PM CDT DERMATOPATHOLOGY LABORATORY Embedded Images 4:54 PM CDT DERMATOPATHOLOGY LABORATORY Pathology/Cytolog y TISSUE SPECIMEN FROM SKIN / Unknown 01/27/2018 01/30/2018 11:34 AM CDT us Kumar Reno MD LAB - PATHOLOGY/CYTOLOGY ORD ERABLES Final Result DERMATOPATHOLOGY LABORATORY [facility] - Department of Dermatology [address] [place] [address] 5th Floor Lab [address] [phone] documented in this encounter Visit Diagnoses Not on filedocumented in this encounter Care Teams Millstone Cleaner Relationship Specialty Start Date End Date Say Low MD [address] [place] [address] PCP - General Internal Medicine 08/14/12 Edgar Geiger MD Cardiovascular Disease 08/14/12 documented as of this encounter
--- OUTSIDE RECORDS SUMMARY | 2025-07-15 13:42 | XMS_ITS | Clinical Summary ---
Author Organization [facility] Address [address] [place] [address] Phone Care Team Providers Care Associate Professor Of Automation Name Role Phone Say Low MD Primary Care Provider [phone] Allergies No known active allergies Medications allopurinol [...] at that time. I did check, the [employer] wraps are are coming [facility]. So I think he should be able to get his MRI done. 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
== END 2025-07-15 12:42 | disposition home or self-care (01) ==
PROVIDERS: PCP Internal Medicine; Visit Provider Internal Medicine
DX: N20.0 Calculus of kidney (principal)
CPT/HCPCS: 36415; 74018; 81001; 85025; 87086; 87186

== ENCOUNTER 2025-08-08 13:33 | Outpatient (CLI) | payer MEDICARE, SELFPAY ==
--- NOTE | ~2025-08-08 | XR_ITS ---
. EXAMINATION: XR fl inj shoulder RT - MR/CT DATE: 08/08/2025 14:41 INDICATION: Unspecified rotator cuff tear TECHNIQUE: A time-out was performed to verify the patient's name, date of , and procedure to be performed. The procedure including the risks, benefits, and alternatives was discussed with the patient. Risks discussed included bleeding and infection. The patient understood the risks and agreed to proceed. The skin overlying the rotator cuff interval of the right glenohumeral joint was prepped and draped in usual sterile fashion. Anesthetic was administered with 1% lidocaine subcutaneously. A 22 G needle was advanced under fluoroscopic guidance into the joint. 15 mL of a 10:7:3 mixture of sterile saline:Omnipaque 240:1% lidocaine was injected with intra-articular administration confirmed with intermittent fluoroscopy. The needle was removed and the entry site was cleaned and dressed. There were no immediate complications. Fluoroscopy exposure time was 0.1 minutes. The total number of images was 6. Total DAP was 0.467 Gycm^2. FINDINGS: Real-time fluoroscopy demonstrates the needle in the right glenohumeral joint. Contrast can be seen extending to the subacromial/subdeltoid bursa indicative of a full-thickness rotator cuff tear. IMPRESSION: 1. Successful right glenohumeral joint injection of contrast mixture for subsequent CT are from which will be dictated separately. 2. Full-thickness rotator cuff tear with contrast extending to the subacromial/subdeltoid bursa. Reviewed, dictated and finalized at location A. MEDICINE PHYSICIAN IMPRESSION: 1. Successful right glenohumeral joint injection of contrast mixture for subseq uent CT are from which will be dictated separately. 2. Full-thickness rotator cuff tear with contrast extending to the subacromial/ subdeltoid bursa.
--- NOTE | ~2025-08-08 | CT_ITS ---
EXAM/PROCEDURE: CT shoulder RT w con HISTORY: M75.101 - Unspecified rotator cuff tear or rupture of rig... COMPARISON: 07/05/2025 TECHNIQUE: Postinjection of intra-articular contrast right shoulder CT exam FINDINGS: Large retracted tear of the supraspinatus tendon, retracted approximately 4.5 cm almost to the level of the labrum. The infraspinatus tendon may also be fully torn but less retracted. The supraspinatus muscle appears at least mildly atrophic. The infraspinatus muscle also appears atrophied. Subscapularis and teres minor muscles/tendons are not well seen but not definitely torn. No fracture subluxation or dislocation. 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 IMPRESSION: Large retracted rotator cuff tear involving the supraspinatus, and probably infraspinatus as well. 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 Other findings as above. Reviewed, dictated and finalized at location A. K TOP RAKER IMPRESSION: Large retracted rotator cuff tear involving the supraspinatus, and probably inf raspinatus as well. These muscles appear somewhat atrophied consistent with chr onic tear. Other findings as above.
--- OUTSIDE RECORDS SUMMARY | 2025-08-08 20:08 | XMS_ITS | Clinical Summary ---
Author Organization [facility] Address [address] [facility] [place] [address] Care Team Providers Care Duplicator Punch Set Up Operator Name Role Phone Edgar Geiger MD Unavailable Unavailable Say Low MD Primary Care Provider [phone] Source Comments [facility],non-owned Affiliates and Associated Physician Practices is amultiple site organization consisting of ambulatory clinics and hospital sitesin [place], [place], [place] and [place]. This disclosure is being madepursuant to the Care Everywhere program and may not contain all information available regarding this patient. Last updated 18.[facility] Allergies No known active allergies Medications * Be aware that medications may not be up to date on this document. Alwaysverify current medications with the patient. omeprazole (PRILOSEC OTC) 20 MG tablet Take 20 mg by mouth daily before breakfast. Active metFORMIN (GLUCOPHAGE) 1000 MG tablet Take 1,000 mg by mouth 2 times daily with morning and evening meal. Active [place]-3 Fatty Acids (TH OMEGA-3 FISH OIL) 1000 [...] on file Legal Sex Male 5:06 AM FILE CLERK DATA ENTRY Gender Identity Not on file Sexual Orientation [...] Name:Drew Newman Payer ID:[id number] (NAIC) Type:Commercial Address: [place] [id number] SELF PAY NO INSURANCE Member Subscriber Plan / Payer (Ef fective for All Dates) Name:Mellisa Drew G Member ID:Not on file Relation to Subscriber:Not on file Name:DREW NEWMAN Subscriber ID:Not on file (Home) Address: [address] [place] [address] Payer ID:Not on file Group ID:Not on file Type:Self Pay Address: [place], [place] MEDICARE Care Teams Duplicator Punch Set Up Operator Relationship Specialty Start Date End Date Say Low MD [address] [place] [address] PCP - General Internal Medicine 08/14/12 Edgar Geiger MD Cardiovascular Disease 08/14/12
--- OUTSIDE RECORDS SUMMARY | 2025-08-08 20:08 | XMS_ITS | Encounter Summary ---
Author Organization [facility] Address [address] [facility] [address] [place] [address] Care Team Providers Care Still Operator Batch Or Continuous Name Role Phone Say Low MD Primary Care Provider [phone] Unknown, Notinfile Primary Care Provider Unavail able Say Low MD Primary Care Provider [phone] Encounter Details Date Type Department Care Team (Late st Contact Info) Description 09/07/2016 Orders Only Arrhythmia Center ProviderGiovanni MD [address] [place] [address] Social History Tobacco Use Types Packs/Day Years Used Date Smoking Tobacco: Former Cigarettes Q uit: 10/03/1982 Alcohol Use Standard Drinks/Week Comments No 0 (1 standard drink = 0.6 oz pur e alcohol) Sex and Gender Information Value Date Recorded Sex Assigned at Not on file Legal Sex Male 8:[address] TEST EXAMINER Gender Identity Male 07/10/2021 8:31 AM CDT [...] on filedocumented in this encounter Care Teams Still Operator Batch Or Continuous Relationship Specialty Start Date End Date Say Low MD PCP - General 10/13/15 02/10/17 Unknown, Notinfile PCP - General 02/11/17 02/14/17 Say Low MD PCP - General 02/15/17 documented as of this encounter
--- OUTSIDE RECORDS SUMMARY | 2025-08-08 20:08 | XMS_ITS | Encounter Summary ---
Author Organization [facility] Address [address] [facility] [address] [place] [address] Care Team Providers Care Crime Laboratory Analyst Name Role Phone Say Low MD Primary Care Provider [phone] Unknown, Notinfile Primary Care Provider Unavail able Say Low MD Primary Care Provider [phone] Encounter Details Date Type Department Care Team (Late st Contact Info) Description 10/01/2016 Orders Only Arrhythmia Center Provider, MD Giovanni [address] [place] [address] Social History Tobacco Use Types Packs/Day Years Used Date Smoking Tobacco: Former Cigarettes Q uit: 10/03/1982 Alcohol Use Standard Drinks/Week Comments No 0 (1 standard drink = 0.6 oz pur e alcohol) Sex and Gender Information Value Date Recorded Sex Assigned at Not on file Legal Sex Male 8:04 PM 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
--- OUTSIDE RECORDS SUMMARY | 2025-08-08 20:08 | XMS_ITS | Clinical Summary ---
Author Organization [facility] Address [address] [place] [address] Care Team Providers Care Chronometer Assembler And Adjuster Name Role Phone Say Low MD Primary Care Provider [phone] Allergies No known active allergies Medications tamsulosin [...] 45 tablet 11 4 09/05/20 25 Active spironolactone (ALDACTONE) 25 mg tablet TAKE 1 TABLET BY MOUTH EVERY DAY 90 tablet 3 5 Active Xarelto 15 mg tabletIndications :Paroxysmal atrial fibrillation (HCC) TAKE 1 TABLET(15 MG) BY MOUTH DAILY 90 tablet 5 Active Active Problems Problem [...] checks when necessary. The patient has a OXH9HT9-ECXf score of 4 (annualized risk of stroke 4%). I have therefore recommended continued anticoagulation for thromboprophylaxis. NICM (nonischemic cardiomyopathy) 07/19/2024 CAD S/P percutaneous coronary angioplasty 2020 Coronary artery disease (CAD) excluded Hx of CABG 02/22/2020 Coronary artery disease invo lving coronary bypass graft of [place] heart with angina pectoris 02/22/2020 Assessment & [...] at that time. I did check, the [employer] wraps are are coming to [facility]. So I think he should be able to get his MRI done. Preoperative cardiovascular examination 05/01/20 19 Assessment & Plan (05/01/2019 11:30 AM CDT): Due to the silent ischemia, CABG in 2003, he needs an aggressive evaluation. Nephrolithiasis 01/04/2019 Overview (01/04/2019): Added automatically from request for surgery [id number] Pacemaker 07/04/2017 Overview (07/04/2017): [employer] Sci DDD Essentio L111 pacemaker implanted on [...] HF symptoms attributed to substantial ventricular pacing, DIRECTOR PEDIATRIC with BiV pacing is recommended to improve [...] 6:52 PM CDT): Status post pacemaker placement, [employer] device for second-degree AV block Normal [...] CDT Ancillary Procedure Arrhythmia Center [address] [address] Pacemaker (Primary Dx); NICM (nonischemic cardiomyopathy) (HCC) from Last 3 Months Surgical History Surgery Date Site/Laterality Comments CORONARY ARTERY BYPASS GRAFT 10/03/2003 - 10/02/2004 saphenous vein to the 1st obtuse marginal, 2nd obtuse marginal, and posterior descending branch of the right coronary artery CARDIAC CATHETERIZATION CARDIAC PACEMAKER PLACEMENT Pacemaker Placement - (Added by ANGEL Conv) LITHOTRIPSY TIBIA FRACTURE SURGERY 10/03/2010 - [...] on file Legal Sex Male 8:04 PM MEDICAL SALES Gender Identity Male 07/10/2021 8:31 AM CDT Sexual Orientation Straight 06/12/2021 8: 44 AM CDT Last Filed Vital Signs Vital Sign Reading Time Taken Comments Blood Pressure 124/66 12/14/2024 11:02 AM CDT Pulse 74 12/14/2024 11:02 AM CDT Temperature 37.1 C (98.8 F) 08/15/2024 1:03 PM MEDICAL SALES Respiratory Rate 26 08/15/2024 5:50 PM MEDICAL SALES Oxygen Saturation 96% 12/14/2024 11:02 AM CDT Inhaled Oxygen Concentration - - Weight 103 kg (227 lb) 12/14/2024 11:02 AM CDT Height 172.7 cm (5' 8) 08/15/2024 1:03 PM MEDICAL SALES Body Mass Index 34.52 08/15/2024 1:03 PM MEDICAL SALES Plan of Treatment Health Maintenance Due [...] 11/06/2024, 08/20/2022 Medical Devices Implanted Type Area Technician Helper Instrument Device Identifier Shelf Expiration Date Model / Serial / Lot [employer] Tabby Acuity X4 3.9-5.2fr 2.6fr 86cm Otw Quadripolar Long Straight 4671 - [id number] - [id number] Implanted:Qty: 1 on 08/15/2024 by Wayne Davis MD at [facility] Lead [employer] Tabby [id number] 04/28/2026 [id number] / [id number] / Pacemaker-07/04 Implanted:11/2016 (Quantity not on file) Pacemaker Chest Wall [employer] C.R[employer]M. [employer] Tabby Pacemaker Single Chamber Commercial Crabber P Visionist 0.75x4.45x6.17 cm U228 - [id number] - [id number] Implanted:Qty: 1 on 08/15/2024 by Wayne Davis MD at [facility] Pacemaker [employer] Tabby [id number] 06/08/2026 U228 / [id number] / [employer] Tabby [id number] Synergy Xd Monorail 3.5mm 32mm 144cm Delivery System 1 Access - S0 - [id number] Implanted:Qty: 1 on 07/13/2021 by Troy Shipley MD at [facility] Stent [employer] Tabby 03/11/2023 [id number] / 0 / [id number] Description:LAD Explanted Type Area Technician Helper Instrument Device Identifier Shelf Expiration Date Model / Serial / Lot [employer] [id number] Inlay [place] 6fr 28cm Pusher Fluoro Marker Atraumatic Insertion Latex Free - [id number] Implanted:Qty: 1 on 01/17/2019 by Concetta Thurston MD at [facility] Explanted:Qty: 1 on 01/31/2019 by Elvin Carrillo NP Stent Left: Ureter [employer] [id number] 07/13/2023 [id number] / / [id number] Procedures Procedure Name Priority Date/Time Associated Diagnosis Comments DEVICE CHECK - REMOTE Routine 06/10/2025 9:10 AM CDT NICM (nonischemic cardiomyopathy) (HCC) CT ABDOMEN PELVIS WO CONTRAST Schedule Routine, Read Routine (OP Routine) 09/14/2022 9:43 AM MEDICAL SALES Nephrolithiasis from Last 3 Months or Most Recently Relevant to Health Maintenance Results * DEVICE CHECK - REMOTE (06/10/2025 9:10 AM CDT) Anatomical Region Laterality Modality Other Narrative 06/12/2025 11:19 AM CDT Table formatting from the original result was not included. BiV PACEMAKER CHECK (REMOTE) Patient ID: Drew Newman is a 85 y.o. male. This patient received a Lyman scientific BiV Pacemaker. They had a routine [...] to SOFI Episodes last 90 days/Comments: AF [place] <1 %, longest duration 2 seconds. No new ventricular events NORMAL DEVICE FUNCTION PROGRAMMED MEDICATIONS: Anti-coagulant(s): Aspirin 81 mg, Xarelto 15 mg daily Anti-arrhythmic(s): Coreg 12.5 mg twice a day PLAN: 1) Lyman Sian's Plan BiV Pacemaker evaluation 2) [employer] scientific remote transmission scheduled in 3 months. 3) Programming appropriate for device settings Gisela Butler RN us Wayne Davis MD CV CARDIAC SERVICES PRO CEDURES Final Result * CT Abdomen Pelvis WO Contrast (09/14/2022 9:43 AM MEDICAL SALES) Anatomical Region Laterality Modality Body N/A Computed Tomogra phy 09/15/2022 10:0 0 AM MEDICAL SALES Narrative 09/15/2022 10:11 AM MEDICAL SALES EXAM DESCRIPTION: CT ABDOMEN PELVIS WO [...] Findings Committee. J Am Walter Radiol. 2017 May;14(8):1730-4487. THIS IS AN ELECTRONICALLY VERIFIED FINAL REPORT 09/15/2022 10:11 AM - Electronically signed by Ko Haro M.D. AG: JAMES Report ID: [id number] Reading Location: [id number] Procedure Note Ko Haro MD - 09/15/2022 [...] Findings Committee. J Am Walter Radiol. 2017 May;14(8):8208-9126. THIS IS AN ELECTRONICALLY VERIFIED FINAL REPORT 09/15/2022 10:11 AM - Electronically signed by Ko Haro M.D. AG: JAMES Report ID: [id number] Reading Location: [place] [address] [address] Marlin Carrillo NP IM CT PROCEDURES Final Result from Last 3 Months or Most Recently Relevant to Health Maintenance Insurance MEDICARE [facility] MEDICARE [facility] [address] [facility] MEDICARE SUPPLEMENT Advance Directives For more information, please contact: [phone] Documents on File Type Date Recorded Patient Audit Clerks Supervisor Expl anation ADVANCE DIRECTIVE 07/04/2017 Advance Di rective Checklist * Full Code (Latest Code Status on File) Date Activated Date Inactivated Comments 07/13/2021 3:49 PM 07/14/2021 2:07 PM Care Teams Chronometer Assembler And Adjuster Relationship Specialty Start Date End Date Say Low MD PCP - General 02/15/17
--- OUTSIDE RECORDS SUMMARY | 2025-08-08 20:08 | XMS_ITS | Encounter Summary ---
Author Organization [facility] Address [address] [facility] [address] [place] [address] Care Team Providers Care Air Hoist Operator Name Role Phone Say Low MD Primary Care Provider [phone] Unknown, Notinfile Primary Care Provider Unavail able Say Low MD Primary Care Provider [phone] Encounter Details Date Type Department Care Team (Late st Contact Info) Description 09/08/2016 Orders Only Arrhythmia Center ProviderGiovanni MD [address] [place] [address] Social History Tobacco Use Types Packs/Day Years Used Date Smoking Tobacco: Former Cigarettes Q uit: 10/03/1982 Alcohol Use Standard Drinks/Week Comments No 0 (1 standard drink = 0.6 oz pur e alcohol) Sex and Gender Information Value Date Recorded Sex Assigned at Not on file Legal Sex Male 8:04 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
--- OUTSIDE RECORDS SUMMARY | 2025-08-08 20:08 | XMS_ITS | Encounter Summary ---
Author Organization [facility] Address [address] [facility] [address] [place] [address] Care Team Providers Care Carpenter Repairer Name Role Phone Say Low MD Primary Care Provider [phone] Encounter Details Date Type Department Care Team (Late st Contact Info) Description 02/17/2017 Orders Only [facility] ProviderGiovanni MD [address] [place] [address] Social History Tobacco Use Types Packs/Day Years Used Date Smoking Tobacco: Former Cigarettes Q uit: 10/03/1982 Alcohol Use Standard Drinks/Week Comments No 0 (1 standard drink = 0.6 oz pur e alcohol) Sex and Gender Information Value Date Recorded Sex Assigned at Not on file Legal Sex Male 8:04 PM PROVIDER RELATIONS SPECIALIST Gender Identity Male 07/10/2021 8:31 AM CDT Sexual Orientation Straight 06/12/2021 8: 44 AM CDT documented as of this encounter Functional Status documented as of this encounter Plan of [...] on filedocumented in this encounter Care Teams Carpenter Repairer Relationship Specialty Start Date End Date Say Low MD PCP - General 02/15/17 documented as of this encounter
--- OUTSIDE RECORDS SUMMARY | 2025-08-08 20:08 | XMS_ITS | Clinical Summary ---
Author Organization [facility] Address [address] [place] [address] Phone Care Team Providers Care Ice Guard Skating Rink Name Role Phone Say Low MD Primary Care Provider [phone] Allergies No known active allergies Medications allopurinol [...] at that time. I did check, the [employer] [place] wraps are are coming to [facility]. So I think he should be able to get his MRI done. 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
--- OUTSIDE RECORDS SUMMARY | 2025-08-08 20:08 | XMS_ITS | Encounter Summary ---
Author Organization [facility] Address [address] [place] [address] Care Team Providers Care Vision Therapist Name Role Phone Edgar Geiger MD Unavailable Unavailable Say Low MD Primary Care Provider [phone] Encounter Details Date Type Department Care Team (Late st Contact Info) Description 01/12/2018 Lab Requisition [facility] Care DermPath Lab [address] [place] [id number] Kumar Reno MD RETIRED Social History Tobacco Use Types Packs/Day Years Used Date Smoking Tobacco: Former Comments:QUIT SMOKING 30 YEA RS AGO Alcohol Use Standard Drinks/Week Comments No 0 (1 standard drink = 0.6 oz pur e alcohol) Sex and Gender Information Value Date Recorded Sex Assigned at Not on file Legal Sex Male 5:06 AM CREDIT REPRESENTATIVE Gender Identity Not on file Sexual Orientation Not on file documented as of this encounter Plan of Treatment Not on file documented as of this encounter Procedures Procedure Name Priority Date/Time Associated Diagnosis Comments DERMATOPATHOLOGY Routine 01/11/2018 12:0 0 AM CDT documented in this encounter Results * DERMATOPATHOLOGY (01/11/2018 12:00 AM CDT) Case Report Dermatopathology Report Case: [id number] Authorizing Provider: Kumar Reno MD Collected: 01/11/2018 [...] specimen consists of a shave biopsy measuring [id number]. Jar 0. 8 6:41 PM CDT DERMATOPATHOLOGY [...] characteristic determined by the Dermatopathology Laboratory at [facility]. These tests need not be, and therefore are not, approved by the [place] Food and Drug Administration. The tests are used for clinical purposes. Billing Codes Specimen Charges Stain Charges [id number] 1 8 6:41 PM CDT DERMATOPATHOLOGY LABORATORY Embedded Images 8 6:41 PM CDT DERMATOPATHOLOGY LABORATORY Pathology/Cytolog y TISSUE SPECIMEN FROM SKIN / Unknown 01/11/2018 01/12/2018 11:39 AM CDT Kumar Reno MD LAB - PATHOLOGY/CYTOLOGY ORD ERABLES Final Result DERMATOPATHOLOGY LABORATORY [facility] - Department of Dermatology [address] [place] [address], 5th Floor Lab [address] [phone] documented in this encounter Visit Diagnoses Not on filedocumented in this encounter Care Teams Vision Therapist Relationship Specialty Start Date End Date Say Low MD [address] [place] [phone] PCP - General Internal Medicine 08/14/12 Edgar Geiger MD Cardiovascular Disease 08/14/12 documented as of this encounter
--- OUTSIDE RECORDS SUMMARY | 2025-08-08 20:08 | XMS_ITS | Encounter Summary ---
Author Organization [facility] Address [address] [place] [address] Care Team Providers Care Set Staff Fitter Name Role Phone Edgar Geiger MD Unavailable Unavailable Say Low MD Primary Care Provider [phone] Encounter Details Date Type Department Care Team (Late st Contact Info) Description 01/30/2018 Lab Requisition [facility] Care Derm[facility] Lab [address] [place] [phone] Kumar Reno MD RETIRED Social History Tobacco Use Types Packs/Day Years Used Date Smoking Tobacco: Former Comments:QUIT SMOKING 30 YEA RS AGO Alcohol Use Standard Drinks/Week Comments No 0 (1 standard drink = 0.6 oz pur e alcohol) Sex and Gender Information Value Date Recorded Sex Assigned at Not on file Legal Sex Male 5:06 AM 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 The specimen consists of a [id number], [id number] excision of skin. The specimen is serially sectioned and a operations support representative section is submitted in cassette 1. [...] characteristic determined by the Dermatopathology Laboratory at [facility]. These tests need not be, and therefore are not, approved by the [place] Food and Drug Administration. The tests are used for clinical purposes. Billing Codes Specimen Charges Stain Charges 39407 1 4:54 PM CDT DERMATOPATHOLOGY LABORATORY Embedded Images 4:54 PM CDT DERMATOPATHOLOGY LABORATORY Pathology/Cytolog y TISSUE SPECIMEN FROM SKIN / Unknown 01/27/2018 01/30/2018 11:34 AM CDT us Kumar Reno MD LAB - PATHOLOGY/CYTOLOGY ORD ERABLES Final Result DERMATOPATHOLOGY LABORATORY [facility] - Department of Dermatology [address] [place] [address] 5th Floor Lab [address] [phone] documented in this encounter Visit Diagnoses Not on filedocumented in this encounter Care Teams Set Staff Fitter Relationship Specialty Start Date End Date Say Low MD [address] [place] [phone] PCP - General Internal Medicine 08/14/12 Edgar Geiger MD Cardiovascular Disease 08/14/12 documented as of this encounter
== END 2025-08-08 13:34 | disposition home or self-care (01) ==
PROVIDERS: PCP Internal Medicine; Visit Provider Orthopaedic Surgery
DX: M75.101 Unspecified rotator cuff tear or rupture of right shoulder, not specified as traumatic (principal); M62.511 Muscle wasting and atrophy, not elsewhere classified, right shoulder; M19.011 Primary osteoarthritis, right shoulder
CPT/HCPCS: 23350; 73201; 77002; J2003; Q9966

== ENCOUNTER 2025-08-24 13:58 | Emergency (ER) | payer MEDICARE, SELFPAY ==
[2025-08-24] VITALS (7 sets, daily range): BP systolic 135–156; BP diastolic 69–81; PULSE 65–82; RESP 15–21; TEMP 36.7; O2SAT 96–99
--- NOTE | ~2025-08-24 | XR_ITS ---
EXAMINATION: XR chest 2V, 08/24/2025 14:30 POULTRY CLEANER HISTORY: chest pain COMPARISON: No comparisons available. Technique: 2 views obtained. Findings: Moderate pulmonary venous congestion. No pneumothorax. Moderate cardiomegaly. Mediastinal and hilar contours are within normal limits. Poststernotomy. Left pacemaker. Impression: CHF Reviewed, dictated and finalized at location P. TRY CLEANER Impression: CHF
--- OUTSIDE RECORDS SUMMARY | 2025-08-24 14:00 | XMS_ITS | Encounter Summary ---
Author Organization [facility] Address [address] [address] Care Team Providers Care Political Analyst Name Role Phone Say Low MD Primary Care Provider [phone] Encounter Details Date Type Department Care Team (Late st Contact Info) Description 02/17/2017 Orders Only [facility]hythmia Center ProviderGiovanni MD [address] [place] [address] Social History Tobacco Use Types Packs/Day Years Used Date Smoking Tobacco: Former Cigarettes Q uit: 10/03/1982 Alcohol Use Standard Drinks/Week Comments No 0 (1 standard drink = 0.6 oz pur e alcohol) Sex and Gender Information Value Date Recorded Sex Assigned at Not on file Legal Sex Male 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
--- OUTSIDE RECORDS SUMMARY | 2025-08-24 14:00 | XMS_ITS | Clinical Summary ---
Author Organization [facility] Address [address] [place] [address] Care Team Providers Care Neuropathologist Name Role Phone Say Low MD Primary Care Provider [phone] Allergies Active Allergy Reactions Criticality Noted Date Comments Slava Inhibitors Cough High 06/27/2025 pt does not remember having any issues with it Medications tamsulosin (FLOMAX) 0.4 mg capsule,extended release [...] BY MOUTH DAILY 90 tablet 5 Active levoFLOXacin (LEVAQUIN) 500 mg tablet Take 1 tablet (500 mg total) by mouth daily 5 Active Active Problems Problem Noted Date Diagnosed Date Paroxysmal atrial fibrillation 08/15/2025 Assessment & Plan (08/15/2025 4:29 PM CHEMICAL ENGINEERING INTERN): Paroxysmal atrial fibrillation, rendered asymptomatic by way of pacing / AV node ablation. I will not make any changes at this time. The patient's device was interrogated and found to be functioning appropriately. No substantial changes to programming were made. The patient is enrolled in the [facility], and we will continue to follow with remote monitoring when possible, and in-office device checks when necessary. The patient has a ZBZ5QM2-PCDd score of 5 (annualized risk of stroke 6.7%). I have therefore recommended continued anticoagulation for thromboprophylaxis. Because of his anemia, PLAAO/C (Watchman, [employer]) has been suggested, but the patient is hesitant to proceed. The patient will follow-up with me in 12 months for an office visit and twelve- lead ECG. CHB (complete heart block) 07/19/2024 Typical atrial [...] checks when necessary. The patient has a UWT1UC1-XIBv score of 4 (annualized risk of stroke 4%). I have therefore recommended continued anticoagulation for thromboprophylaxis. NICM (nonischemic cardiomyopathy) 07/19/2024 CAD S/P percutaneous coronary angioplasty 2020 Coronary artery disease (CAD) excluded Hx of CABG 02/22/2020 Coronary artery disease invo lving coronary bypass graft of [place] heart with angina pectoris 02/22/2020 Assessment & [...] at that time. I did check, the 3225 films wraps are are coming to [facility]. So I think he should be able to get his MRI done. Preoperative cardiovascular examination 05/01/20 19 Assessment & Plan (05/01/2019 11:30 AM CDT): Due to the silent ischemia, CABG in 2003, he needs an aggressive evaluation. Nephrolithiasis 01/04/2019 Overview (01/04/2019): Added automatically from request for surgery [id number] Pacemaker 07/04/2017 Overview (07/04/2017): [employer] DDD Essentio L111 pacemaker implanted on 07/04/17 for Mobitz Ii. Claudia/Ryan Avalos Assessment & Plan (08/15/2025 4:23 PM CHEMICAL ENGINEERING INTERN): Complete heart block, status post dual-chamber pacemaker. 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 Presently, he is doing well. The patient's device was interrogated and found to be functioning appropriately. No substantial changes to programming were made. The patient is enrolled in the [facility] Device [facility], and we will continue to follow with remote monitoring when possible, and in-office device checks when necessary. Assessment & Plan (07/19/2024 2:14 PM CDT): [...] make the appropriate arrangements. From: Keon MK, Rios KK, Wagner C et al. 2022 HRS/APHRS/LAHRS guideline on cardiac physiologic pacing for the avoidance and mitigation of heart failure. Heart Rhythm 2022;20:e17-e91. Class I: In patients with a CIED with a decline in LV function or worsening of HF symptoms attributed to substantial ventricular pacing, PRINT BUYER with BiV pacing is recommended to improve [...] 6:52 PM CDT): Status post pacemaker placement, [employer] device for second-degree AV block Normal [...] Encounters Date Type Department Care Team Description 08/15/2025 1:45 PM CHEMICAL ENGINEERING INTERN Office Visit [facility] [address] [place] [phone] Wayne Davis MD Paroxysmal atrial fibrillation (HCC) (Primary Dx); Pacemaker; NICM (nonischemic cardiomyopathy) (HCC) 08/15/2025 1:30 PM CHEMICAL ENGINEERING INTERN Ancillary Procedure [facility] Center [address] [place] [phone] Cardiac pacemaker in situ (Primary Dx); NICM (nonischemic cardiomyopathy) (HCC) 06/10/2025 11:00 AM CDT Ancillary Procedure [facility] Center [address] [place] [phone] Pacemaker (Primary Dx); NICM (nonischemic cardiomyopathy) [...] Hypertension Diabetes mellitus CHF (congestive heart failure) ([facility]) COPD (chronic obstructive pu lmonary disease) Chronic kidney disease Kidney stone Urolithiasis Arthritis Congestive heart failure (CHF) ([facility]) Family History Medical History Relation Name Comments [...] on file Legal Sex Male 8:04 PM CHEMICAL ENGINEERING INTERN Gender Identity Male 07/10/2021 8:31 AM CDT Sexual Orientation Straight 06/12/2021 8: 44 AM CDT Last Filed Vital Signs Vital Sign Reading Time Taken Comments Blood Pressure 140/89 08/15/2025 2:00 PM CHEMICAL ENGINEERING INTERN Pulse 60 08/15/2025 2:00 PM CHEMICAL ENGINEERING INTERN Temperature 37.1 C (98.8 F) 08/15/2024 1:03 PM CHEMICAL ENGINEERING INTERN Respiratory Rate 26 08/15/2024 5:50 PM CHEMICAL ENGINEERING INTERN Oxygen Saturation 96% 12/14/2024 11:02 AM CDT Inhaled Oxygen Concentration - - Weight 108.4 kg (239 lb) 08/15/2025 2:00 PM CHEMICAL ENGINEERING INTERN Height 172.7 cm (5' 8) 08/15/2025 2:00 PM CHEMICAL ENGINEERING INTERN Body Mass Index 36.34 08/15/2025 2:00 PM CHEMICAL ENGINEERING INTERN Plan of Treatment Health Maintenance Due Date [...] 11/06/2024, 08/20/2022 Medical Devices Implanted Type Area Manager Of Procurement Device Identifier Shelf Expiration Date Model / Serial / Lot [employer] Tabby Acuity X4 3.9-5.2fr 2.6fr 86cm Otw Quadripolar Long Straight [id number] - [id number] - [id number] Implanted:Qty: 1 on 08/15/2024 by Wayne Davis MD at [facility] Lead [employer] Tabby [id number] 04/28/2026 [id number] / [id number] / Pacemaker-07/04 Implanted:11/2016 (Quantity not on file) Pacemaker Chest Wall [employer] C[employer].M. [employer] Tabby Pacemaker Single Chamber Time Clock Mechanic P Visionist 0.75x4.45x6.17 cm U228 - [id number] - [id number] Implanted:Qty: 1 on 08/15/2024 by Wayne Davis MD at [facility] Pacemaker [employer] Tabby [id number] 06/08/2026 [id number] / [id number] / [employer]by [id number] Synergy Xd Monorail 3.5mm 32mm 144cm Delivery System 1 Access - S0 - [id number] Implanted:Qty: 1 on 07/13/2021 by Troy Shipley MD at [facility] Stent [employer] Tabby 03/11/2023 [id number] / 0 / [id number] Description:LAD Explanted Type Area Manager Of Procurement Device Identifier Shelf Expiration Date Model / Serial / Lot [employer] [id number] Inlay Wapella 6fr 28cm Pusher Fluoro Marker Atraumatic Insertion Latex Free - [id number] Implanted:Qty: 1 on 01/17/2019 by Concetta Thurston MD at [facility] Explanted:Qty: 1 on 01/31/2019 by Elvin Carrillo NP Stent Left: Ureter [employer] [id number] 07/13/2023 [id number] / / [id number] Procedures Procedure Name Priority Date/Time Associated Diagnosis Comments ECG 12-LEAD Routine 08/15/2025 2:00 PM CHEMICAL ENGINEERING INTERN Paroxysmal atrial fibrillation (HCC) Pacemaker NICM (nonischemic cardiomyopathy) (HCC) DEVICE CHECK - IN OFFICE Routine 08/15/2025 1:57 PM CHEMICAL ENGINEERING INTERN NICM (nonischemic cardiomyopathy) (HCC) DEVICE CHECK - REMOTE Routine 06/10/2025 9:10 AM CDT NICM (nonischemic cardiomyopathy) (HCC) CT ABDOMEN PELVIS WO CONTRAST Schedule Routine, Read Routine (OP Routine) 09/14/2022 9:43 AM CHEMICAL ENGINEERING INTERN Nephrolithiasis from Last 3 Months or Most Recently Relevant to Health Maintenance Results * ECG 12 lead (08/15/2025 2:00 PM CHEMICAL ENGINEERING INTERN) us Wayne Davis MD ECG ORDERABLES Final R esult * DEVICE CHECK - IN OFFICE (08/15/2025 1:57 PM CHEMICAL ENGINEERING INTERN) Anatomical Region Laterality Modality Other Narrative 08/18/2025 1:41 PM CHEMICAL ENGINEERING INTERN Table formatting from the original result was not included. BiV PACEMAKER CHECK (IN OFFICE) Patient ID: Drew Newman is a 85 y.o. male. This patient received a [employer] BiV Pacemaker. They had a routine in office device interrogation on 08/15/25. 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 Interrogation of the patient's device demonstrates the following: Presenting EGM: a paced Bi V paced @ 60 bpm Underlying Rhythm: complete heart block with Bi V pacing at 40 beats per minute Original Device Settings Right Atrium Right Ventricle Left Ventricle Sensitivity (mV) 0.5 mV 2.5 mV 2.5 mV Pacemaker Outputs 2.5 V @ 0.4 ms 2.0 V @ 0.4 ms 2.5 V @ 0.4 ms Testing Measurements Right Atrium Right Ventricle Left Ventricle Sensitivity (mV) 5.2 mV Paced mV Paced mV Impedence (Ohms) 446 ohms 469 ohms 817 ohms Pace Threshold 1.3 V @ 0.4 ms 0.6 V @ 0.4 ms 1.5 V @ 0.4 ms Pacing % 25 % 100 % 100 % Battery Status: 10.5 years to SOFI Episodes last 90 days/Comments: AF [place] less than 1 %, there were 2 episodes of atrial fibrillation both lasting 1-2 seconds. NORMAL DEVICE FUNCTION PROGRAMMED MEDICATIONS: Anti-coagulant(s): Xarelto 15 mg daily, aspirin 81 mg daily Anti-arrhythmic(s): Coreg 12.5 mg twice daily PLAN: 1) [employer] BiV Pacemaker evaluation 2) [employer] remote transmission scheduled in 3 months. 3) Programming appropriate for device settings Manuel Sullivan RN us Wayne Davis MD CV CARDIAC SERVICES PRO CEDURES Final Result * DEVICE CHECK - REMOTE (06/10/2025 9:10 AM CDT) Anatomical Region Laterality Modality Other Narrative 06/12/2025 11:19 AM CDT Table formatting from the original result was not included. BiV PACEMAKER CHECK (REMOTE) Patient ID: Drew Newman is a 85 y.o. male. This patient received a [employer] BiV Pacemaker. They had a routine [...] to SOFI Episodes last 90 days/Comments: AF [place] <1 %, longest duration 2 seconds. No new ventricular events NORMAL DEVICE FUNCTION PROGRAMMED MEDICATIONS: Anti-coagulant(s): Aspirin 81 mg, Xarelto 15 mg daily Anti-arrhythmic(s): Coreg 12.5 mg twice a day PLAN: 1) [employer] BiV Pacemaker evaluation 2) [employer] remote transmission scheduled in 3 months. 3) Programming appropriate for device settings Gisela Butler RN us Wayne Davis MD CV CARDIAC SERVICES PRO CEDURES Final Result * CT Abdomen Pelvis WO Contrast (09/14/2022 9:43 AM CHEMICAL ENGINEERING INTERN) Anatomical Region Laterality Modality Body N/A Computed Tomogra phy 09/15/2022 10:0 0 AM CHEMICAL ENGINEERING INTERN Narrative 09/15/2022 10:11 AM CHEMICAL ENGINEERING INTERN EXAM DESCRIPTION: CT ABDOMEN PELVIS WO CONTRAST [...] Findings Committee. J Am Walter Radiol. 2017 May;14(8):5379-7934. THIS IS AN ELECTRONICALLY VERIFIED FINAL REPORT 09/15/2022 10:11 AM - Electronically signed by Ko Haro M.D. AG: JAMES Report ID: [id number] Reading Location: [id number] Procedure Note Ko Haro MD - 09/15/2022 [...] Findings Committee. J Am Walter Radiol. 2017 May;14(8):2116-1854. THIS IS AN ELECTRONICALLY VERIFIED FINAL REPORT 09/15/2022 10:11 AM - Electronically signed by Ko Haro M.D. AG: JAMES Report ID: [id number] Reading Location: [id number] Elvin Carrillo NP IM CT PROCEDURES Final Result from Last 3 Months or Most Recently Relevant to Health Maintenance Insurance MEDICARE COUNTS INCLUDE 234 BEDS AT THE [facility] MEDICARE COUNTS INCLUDE 234 BEDS AT THE [facility] MEDICARE [facility] MEDICARE SUPPLEMENT Advance Directives For more information, please contact: [phone] Documents on File Type Date Recorded Patient Pot Room Supervisor Expl anation ADVANCE DIRECTIVE 07/04/2017 Advance Di rective Checklist * Full Code (Latest Code Status on File) Date Activated Date Inactivated Comments 07/13/2021 3:49 PM 07/14/2021 2:07 PM Care Teams Neuropathologist Relationship Specialty Start Date End Date Say Low MD PCP - General 02/15/17
--- OUTSIDE RECORDS SUMMARY | 2025-08-24 14:00 | XMS_ITS | Encounter Summary ---
Author Organization [facility] Address [address] [facility] [address] [place] [address] Care Team Providers Care Carry Out Clerk And Shelf Stocker Name Role Phone Say Low MD Primary Care Provider [phone] Unknown, Notinfile Primary Care Provider Unavail able Say Low MD Primary Care Provider [phone] Encounter Details Date Type Department Care Team (Late st Contact Info) Description 09/08/2016 Orders Only Arrhythmia Center ProviderGiovanni MD [address] [place] [address] Social History Tobacco Use Types Packs/Day Years Used Date Smoking Tobacco: Former Cigarettes Q uit: 10/03/1982 Alcohol Use Standard Drinks/Week Comments No 0 (1 standard drink = 0.6 oz pur e alcohol) Sex and Gender Information Value Date Recorded Sex Assigned at Not on file Legal Sex Male 8:04 PM TECHNOLOGY 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
--- OUTSIDE RECORDS SUMMARY | 2025-08-24 14:00 | XMS_ITS | Clinical Summary ---
Author Organization [facility] Address [address] [place] [address] Phone Care Team Providers Care Loan Processing Supervisor Name Role Phone Say Low MD Primary Care Provider [phone] Allergies No known active allergies Medications allopurinol [...] at that time. I did check, the PROTEGO wraps are are coming to [facility]. So I think he should be able to get his MRI done. 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
--- OUTSIDE RECORDS SUMMARY | 2025-08-24 14:00 | XMS_ITS | Encounter Summary ---
Author Organization [facility] Address [address] [place] [address] Care Team Providers Care Access Services Assistant Name Role Phone Edgar Geiger MD Unavailable Unavailable Say Low MD Primary Care Provider [phone] Encounter Details Date Type Department Care Team (Late Contact Info) Description 01/30/2018 Lab Requisition [facility] [address] [place] [phone] Kumar Reno MD RETIRED Social History Tobacco Use Types Packs/Day Years Used Date Smoking Tobacco: Former Comments:QUIT SMOKING 30 YEA RS AGO Alcohol Use Standard Drinks/Week Comments No 0 (1 standard drink = 0.6 oz pur e alcohol) Sex and Gender Information Value Date Recorded Sex Assigned at Not on file Legal Sex Male 5:06 AM ONLINE MEDIA BUYER Gender Identity Not on file Sexual Orientation Not on file documented as of this encounter Plan of Treatment Upcoming Encounters Date Type Department Care Team (Late Contact Info) Description 09/11/2025 1:40 PM ONLINE MEDIA BUYER Office Visit [facility] - Orthopedics [address] [place] [phone] Travis Rodriguez MD [address] [place] [address] [place] [address] documented as of this encounter Procedures Procedure Name Priority Date/Time Associated Diagnosis Comments DERMATOPATHOLOGY Routine 01/27/2018 12:0 0 AM CDT documented in this encounter Results * DERMATOPATHOLOGY (01/27/2018 12:00 AM CDT) Case Report Dermatopathology Report Case: [id number] Authorizing Provider: Kumar Reno MD Collected: 01/27/2018 [...] scapula tip. The specimen consists of a [id number], [id number] excision of skin. The specimen is serially sectioned and a insurance sales representative section is submitted in cassette [...] by the Dermatopathology Laboratory at [facility]. These tests need not be, and therefore are not, approved by the [place] Food and Drug Administration. The tests are used for clinical purposes. Billing Codes Specimen Charges Stain Charges 22614 1 4:54 PM CDT DERMATOPATHOLOGY LABORATORY Embedded Images 4:54 PM CDT DERMATOPATHOLOGY LABORATORY Pathology/Cytolog y TISSUE SPECIMEN FROM SKIN / Unknown 01/27/2018 01/30/2018 11:34 AM CDT Kumar Reno MD LAB - PATHOLOGY/CYTOLOGY ORD ERABLES Final Result DERMATOPATHOLOGY LABORATORY [facility] - Department of Dermatology [address] [place] [address], 5th Floor Lab [address] [phone] documented in this encounter Visit Diagnoses Not on filedocumented in this encounter Care Teams Access Services Assistant Relationship Specialty Start Date End Date Say Low MD [address] [place] [address] PCP - General Internal Medicine 08/14/12 Edgar Geiger MD Cardiovascular Disease 08/14/12 documented as of this encounter
--- OUTSIDE RECORDS SUMMARY | 2025-08-24 14:00 | XMS_ITS | Encounter Summary ---
Author Organization [facility] Address [address] [place] [address] Care Team Providers Care Die Repair Name Role Phone Edgar Geiger MD Unavailable Unavailable Say Low MD Primary Care Provider [phone] Encounter Details Date Type Department Care Team (Late Contact Info) Description 01/12/2018 Lab Requisition [facility] Care D[facility] [address] [place] [phone] Kumar Reno MD RETIRED Social History Tobacco Use Types Packs/Day Years Used Date Smoking Tobacco: Former Comments:QUIT SMOKING 30 YEA RS AGO Alcohol Use Standard Drinks/Week Comments No 0 (1 standard drink = 0.6 oz pur e alcohol) Sex and Gender Information Value Date Recorded Sex Assigned at Not on file Legal Sex Male 5:06 AM THREAD GRINDER Gender Identity Not on file Sexual Orientation Not on file documented as of this encounter Plan of Treatment Upcoming Encounters Date Type Department Care Team (Late Contact Info) Description 09/11/2025 1:40 PM THREAD GRINDER Office Visit [facility] - Orthopedics [address] [place] [phone] Travis Rodriguez MD [address] [place] [address] [place] [address] documented as of this encounter Procedures Procedure Name Priority Date/Time Associated Diagnosis Comments DERMATOPATHOLOGY Routine 01/11/2018 12:0 0 AM CDT documented in this encounter Results * DERMATOPATHOLOGY (01/11/2018 12:00 AM CDT) Case Report Dermatopathology Report Case: [id number] Authorizing Provider: Kumar Reno MD Collected: 01/11/2018 [...] specimen consists of a shave biopsy measuring [id number]. Jar 0. 8 6:41 PM CDT DERMATOPATHOLOGY [...] determined by the Dermatopathology Laboratory at [facility]. These tests need not be, and therefore are not, approved by the [place] Food and Drug Administration. The tests are used for clinical purposes. Billing Codes Specimen Charges Stain Charges [address] 1 8 6:41 PM CDT DERMATOPATHOLOGY LABORATORY Embedded Images 8 6:41 PM CDT DERMATOPATHOLOGY LABORATORY Pathology/Cytolog y TISSUE SPECIMEN FROM SKIN / Unknown 01/11/2018 01/12/2018 11:39 AM CDT Kumar Reno MD LAB - PATHOLOGY/CYTOLOGY ORD ERABLES Final Result DERMATOPATHOLOGY LABORATORY [facility] - Department of Dermatology [address] [place] [address] 5th Floor Lab [address] [phone] documented in this encounter Visit Diagnoses Not on filedocumented in this encounter Care Teams Die Repair Relationship Specialty Start Date End Date Say Low MD [address] [place] [phone] PCP - General Internal Medicine 08/14/12 Edgar Geiger MD Cardiovascular Disease 08/14/12 documented as of this encounter
--- OUTSIDE RECORDS SUMMARY | 2025-08-24 14:00 | XMS_ITS | Encounter Summary ---
Author Organization [facility] Medical [facility] Address [address] [facility] [address] [place] [address] Care Team Providers Care Slot Tag Inserter Name Role Phone Say Low MD Primary Care Provider Unknown, Notinfile Primary Care Provider Unavail able Say Low MD Primary Care Provider [phone] Encounter Details Date Type Department Care Team (Late st Contact Info) Description 09/07/2016 Orders Only Arrhythmia Center ProviderGiovanni MD [address] [place] [address] Social History Tobacco Use Types Packs/Day Years Used Date Smoking Tobacco: Former Cigarettes Q uit: 10/03/1982 Alcohol Use Standard Drinks/Week Comments No 0 (1 standard drink = 0.6 oz pur e alcohol) Sex and Gender Information Value Date Recorded Sex Assigned at Not on file Legal Sex Male 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
--- OUTSIDE RECORDS SUMMARY | 2025-08-24 14:00 | XMS_ITS | Encounter Summary ---
Author Organization [facility] Address [address] [facility] [address] [place] [address] Care Team Providers Care Precision Assembler Name Role Phone Say Low MD Primary Care Provider [phone] Unknown, Notinfile Primary Care Provider Unavail able Say Low MD Primary Care Provider [phone] Encounter Details Date Type Department Care Team (Late st Contact Info) Description 10/01/2016 Orders Only Arrhythmia Center Provider, MD Giovanni [address] [place] [address] Social History Tobacco Use Types Packs/Day Years Used Date Smoking Tobacco: Former Cigarettes Q uit: 10/03/1982 Alcohol Use Standard Drinks/Week Comments No 0 (1 standard drink = 0.6 oz pur e alcohol) Sex and Gender Information Value Date Recorded Sex Assigned at Not on file Legal Sex Male 8:[address] JUSTICE Gender Identity Male 07/10/2021 8:31 AM CDT [...] on filedocumented in this encounter Care Teams Precision Assembler Relationship Specialty Start Date End Date Say Low MD PCP - General 10/13/15 02/10/17 Unknown, Notinfile PCP - General 02/11/17 02/14/17 Sya Low MD PCP - General 02/15/17 documented as of this encounter
--- NOTE | 2025-08-24 14:02 | ECG_ITS ---
Test Date: 2025-08-24 14:08:45 Measurements Intervals [place] Rate: 76 P: 101 ID: 98 QRS: 161 QRSD: 206 T: -6 QT: 464 QTc: 523 Interpretive Statements ELECTRONIC VENTRICULAR PACEMAKER ABNORMAL RHYTHM ECG No previous ECG available for comparison Electronically Signed On 08-24-2025 22:51:24 COACH CLEANER by Michelle Lutz M.D.
--- NOTE | 2025-08-24 14:22 | ED.CHESTPAIN ---
HPI - Chest Pain General Chief Complaint: Chest Pain Stated Complaint: chest pain Time Seen by Provider: 08/24/25 14:08 Source: patient Mode of arrival: ambulatory Limitations: no limitations History of Present Illness HPI narrative: This is an 85-year-old male that presents to the emergency department for right-sided chest pain. Reports he has had some right-sided shoulder pain that has been radiating into his chest over the last several weeks. He thought this was due to rotator cuff problems. Today he went to stand up from a chair and had sudden onset sharp right-sided chest pain. Pain is worse with movement/breathing. He does endorse some shortness of breath and a cough. Denies fevers. Related Data Home Medications ?Medication ?Instructions ?Recorded ?Confirmed ?Last Taken ?Type aspirin 81 mg tablet 81 mg PO DAILY 08/03/22 08/20/25 12/27/24 History cholecalciferol (vitamin D3) 50 50 mcg PO DAILY 05/17/23 08/20/25 12/27/24 History mcg (2,000 unit) capsule (Vitamin D3) vitamin B complex 1 cap PO DAILY 05/17/23 08/20/25 12/27/24 History spironolactone 25 mg tablet 12.5 mg PO DAILY 05/16/24 08/20/25 12/27/24 History rivaroxaban 15 mg tablet (Xarelto) 15 mg PO DAILY 01/01/25 08/20/25 Unknown History Allergies Allergy/AdvReac Type Severity Reaction Status Date / Time No Known Allergies Allergy Verified 08/24/25 14:18 Review of Systems Review of Systems: All systems reviewed & are unremarkable except as noted in HPI and below PMFSH Past Medical History Medical History Hypertension Diabetes Congestive heart failure Arthritis Inclusion cyst Venous stasis ulcer Pleuritic chest pain Peripheral edema Vision changes Cellulitis Impacted cerumen of both ears Abnormal results of kidney function studies Bronchitis Fall Onychomycosis Skin lesion UTI (urinary tract infection) Skin lesion Right shoulder pain Right hip pain Pneumonia Chest congestion Cough Kidney stones Personal history of COVID-19 Gastric polyp MACIEJ on CPAP BMI 31.0-31.9,adult Guaiac positive stools Interstitial lung disease Cirrhosis of liver BMI 32.0-32.9,adult History of pneumonia, recurrent DOLAN (dyspnea on exertion) BMI 29.0-29.9,adult BMI 30.0-30.9,adult Hospital discharge follow-up Pneumonia due to COVID-19 virus Elevated troponin Person under investigation for COVID-19 CHF exacerbation Hypoxia Systolic CHF Ringworm Wound of right foot Obesity Anemia Gastroesophageal reflux disease Benign prostatic hyperplasia Anxiety Ascending aortic aneurysm Osteoarthritis Gout History of colon polyps Diastolic congestive heart failure Echocardiogram in 05/2019 showed mild LV ventricular enlargement, mild concentric LVH, moderate apical and apical septal hypokinesis, grade 2 diastolic dysfunction, EF 50%, moderately enlarged left atrium, moderate mitral and mild aortic valve regurgitation. Coronary artery disease Status post three-vessel bypass in 2003. 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 Shingles Mixed hyperlipidemia Surgical History Surgical History History of open reduction and internal fixation (ORIF) procedure Right lower extremity fracture. History of arthroplasty of right knee (~12/23/20) History of arthroscopy of right knee History of tonsillectomy History of colonoscopy with polypectomy History of coronary artery bypass graft x 3 (~2003) History of permanent cardiac pacemaker placement History of lumbar surgery Lumbar laminectomy at several levels with what sounds like foraminectomy as well. Family History Family History Mother Diabetes mellitus Cerebrovascular accident Breast cancer Hypertension Father Acute myocardial infarction Hypertension Bladder cancer Heart disease Grandparent Cancer Hypertension Other Arthritis Social History Social History Social History: Surrogate decision maker: Pilar George, daughter. Code status: Full code. Caffeine-coffee Smoking packs per day: 3 Smoking cigarettes per day: 60.0 Years smoked: 40 Smoking pack-years: 120.00 Smoking status: Former smoker Tobacco type: cigarettes Second hand tobacco smoke exposure: Yes Smoking end date: 10/03/81 Additional smoking assessment comments: Up to 3 packs a day, quit in 1981. Alcohol intake: current Drinks per week: 2 Alcohol use details: No alcohol since 2013. Substance use: never Substance use type: does not use Current Housing: Decline to Answer Concerned About Future Housing: Decline to Answer Difficulty Paying Gas/Electric Bills: Decline to Answer Difficulty Paying for Meds: Decline to Answer Currently Unemployed: Decline to Answer Education: Decline to Answer Difficulty w/ Childcare or Family Care: Decline to Answer Living arrangements: with family Additional living arrangements comments: Resides in [facility], 40+ years. Additional occupation/education comments: Retired. 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 Gender identity (if verbalized by the patient): Male Spiritual care concerns: No Exam Narrative: GENERAL: Well-appearing, well-nourished, and in no acute distress. HEAD: Normocephalic, atraumatic. EYES: EOMI. ENT: Nares clear, no rhinorrhea or epistaxis. Mucous membranes moist. Oropharynx without tonsillar hypertrophy exudate or other lesions. CHEST: Clear to auscultation. No respiratory distress. No wheezes rales or rhonchi HEART: Regular rate and rhythm. No murmur heard. Normal peripheral pulses. ABDOMEN: Soft, nontender, nondistended, normal active bowel sounds. EXTREMITIES: Normal range of motion. No edema. SKIN: Warm, dry, no rash. NEURO: No focal deficits. Alert and oriented x3. PSYCH: Normal mood and affect Course Vital Signs Vital signs: Vital Signs Temperature 98.0 F 08/24/25 14:11 Pulse Rate 70 08/24/25 14:11 Respiratory Rate 17 08/24/25 14:11 Blood Pressure 146/81 H 08/24/25 14:11 Pulse Oximetry 97 08/24/25 14:11 Oxygen Delivery Room Air 08/24/25 14:11 Temperature 98.0 F 08/24/25 14:11 Pulse Rate 65 08/24/25 17:57 Respiratory Rate 15 08/24/25 17:57 Blood Pressure 156/77 H 08/24/25 17:57 Pulse Oximetry 97 08/24/25 17:57 Oxygen Delivery Room Air 08/24/25 14:18 MDM - Chest Pain MDM Narrative Medical decision making narrative: patient presents to the emergency department for right-sided chest pain. Ongoing intermittently over the last several weeks. Reports radiation from shoulder for which she had a torn rotator cuff. His vitals are stable. Cbc and metabolic panel without concerning findings. Patient has a pacemaker. Baseline and 3 hour troponin are negative. D-dimer is not elevated. Chest x-ray showing some vascular congestion. BNP is mildly elevated. Oxygen saturation is normal on air. No notable rales on exam. No pitting edema. Patient and family updated on workup. Instructed to have further follow-up with cardiology and his PCP. He was given warnings to return to the ER Differential Diagnosis Differential diagnosis: Likely stable angina, atypical chest pain, costochondritis and other (muscle strain) Lab Data Attestation: I reviewed the patient's lab results. 08/24/25 14:19 08/24/25 14:19 Labs: Lab Results 08/24/25 08/24/25 Range/Units 14:19 17:23 WBC 7.2 (4.5-10.0) K/mm3 RBC 4.26 L (4.6-6.20) M/mm3 Hgb 13.7 L (14.0-18.0) g/dL Hct 43.4 (42.0-52.0) % MCV 101.9 H (80-100) fl MCH 32.2 (26-34) pg MCHC 31.6 L (32-36) g/dl RDW 14.6 H (11.5-14.5) % Plt Count 222 (150-375) k/mm3 MPV 10.8 H (7.4-10.4) fl Immature Gran % (Auto) 0.4 (0-0.5) % Neut % (Auto) 64.7 (45.5-73.1) % Lymph % (Auto) 19.7 (18.3-44.2) % [place] % (Auto) 10.3 H (2.6-8.5) % Eos % (Auto) 4.3 (0-4.4) % Baso % (Auto) 0.6 (0.2-1.2) % Lymph # (Auto) 1.42 (0.9-3.2) K/mm3 [place] # (Auto) 0.7 H (0.1-0.6) K/mm3 Eos # (Auto) 0.3 (0-0.3) K/mm3 Baso # (Auto) 0.0 (0.0-0.1) K/mm3 Abs Immat Gran (auto) 0.03 (0.00-0.031) K/mm3 Absolute Neuts (auto) 4.7 (1.3-6.7) K/mm3 Absolute Nucleated RBC 0.000 (0.0-0.012) K/mm3 Nucleated RBC % 0.0 (0.0-0.2) % PT 20.0 H (11.1-14.7) Seconds INR 1.7 APTT 38.2 H (22.3-36.8) Seconds D-Dimer 0.39 (<0.48) ug/mL Sodium 140 (137-145) mmol/L Potassium 4.8 (3.4-5.0) mmol/L Chloride 105 (98-107) mmol/L Carbon Dioxide 26 (22-30) mmol/L Anion Gap 9 (4-12) mmol/L BUN 31 H D (9-20) mg/dL Creatinine 1.62 H (0.7-1.3) mg/dL Estim Creat Clear Calc 38 ml/min Estimated GFR 41 L (59 - ) Glucose 112 H (65-110) mg/dL Calcium 9.2 (8.4-10.2) mg/dL Total Bilirubin 0.9 (0.2-1.3) mg/dL AST 38 (17-59) U/L ALT 26 (6-50) U/L Alkaline Phosphatase 79 (38-126) U/L Troponin I 0.028 0.028 (0.000-0.034) ng/mL NT-Pro-B Natriuret Pep 1310 H (19.9-100) pg/mL Total Protein 7.3 (6.3-8.2) g/dL Albumin 4.4 (3.5-5.1) g/dL Lipase 72 (23-300) U/L Imaging Data Radiologist's impression: ITS Impressions Chest X-Ray 08/24/25 14:38 Impression: CHF ECG Data EKG #1: ECG completion date: 08/24/25 EKG Interpretation: normal rate, sinus rhythm and other (ventricular pacemaker) Critical Care Time Critical Care Time Critical Care Time: No Discharge Plan Discharge Clinical Impression: Right-sided chest pain Patient Disposition: Home Condition: Stable Instructions: Chest Pain (ED) Additional Instructions: Return to the emergency department if you experience fever, worsening chest pain, shortness of breath, or any other symptoms that are concerning to you. Follow up with your primary care doctor and precision instrument maker Patient Language: Citizen [place] Prescriptions: No Action spironolactone 25 mg tablet 12.5 mg PO DAILY potassium citrate 10 mEq (1,080 mg) tablet extended release 10 meq PO .qod Qty: 90 0RF furosemide 40 mg tablet See Rx Instructions .ROUTE .qod Qty: 90 0RF Dose Instruction: TAKE 2 TABLETS BY MOUTH EVERY MORNING Rx Instructions: Take one 40mg tablet QOD; Xarelto 15 mg tablet 15 mg PO DAILY Rx Instructions: must administer with evening meal aspirin 81 mg Tablet 81 mg PO DAILY vitamin B complex Capsule 1 cap PO DAILY cholecalciferol (vitamin D3) [Vitamin D3] 50 mcg (2,000 unit) Capsule 50 mcg PO DAILY omeprazole 20 mg capsule,delayed release(DR/EC) 20 mg PO DAILY Qty: 90 4RF penicillin V potassium 500 mg tablet See Rx Instructions .ROUTE .COMPLEX Qty: 180 1RF Dose Instruction: TAKE 1 TABLET BY MOUTH TWICE DAILY Rx Instructions: TAKE 1 TABLET BY MOUTH TWICE DAILY atorvastatin 10 mg tablet See Rx Instructions .ROUTE .COMPLEX Qty: 45 0RF Dose Instruction: TAKE 1/2 TABLET BY MOUTH DAILY Rx Instructions: TAKE 1/2 TABLET BY MOUTH DAILY allopurinol 300 mg tablet 150 mg PO DAILY Qty: 90 1RF Synjardy XR 5-1,000 mg tablet, IR - ER, biphasic 24hr 1 tablet PO DAILY Qty: 90 1RF carvedilol 12.5 mg tablet See Rx Instructions .ROUTE .COMPLEX Qty: 180 1RF Dose Instruction: TAKE 1 TABLET BY MOUTH TWICE DAILY Rx Instructions: TAKE 1 TABLET BY MOUTH TWICE DAILY losartan 50 mg tablet See Rx Instructions .ROUTE .COMPLEX Qty: 135 0RF Dose Instruction: TAKE 1& 1/2 TABLETS BY MOUTH DAILY Rx Instructions: TAKE 1& 1/2 TABLETS BY MOUTH DAILY folic acid 1 mg tablet See Rx Instructions .ROUTE .COMPLEX Qty: 90 1RF Dose Instruction: TAKE 1 TABLET BY MOUTH DAILY Rx Instructions: TAKE 1 TABLET BY MOUTH DAILY tamsulosin 0.4 mg capsule See Rx Instructions .ROUTE .COMPLEX Qty: 90 1RF Dose Instruction: TAKE 1 CAPSULE BY MOUTH DAILY Rx Instructions: TAKE 1 CAPSULE BY MOUTH DAILY Follow-up/Referrals: Say Low MD [Primary Care Provider, Internal Medicine]
--- OUTSIDE RECORDS SUMMARY | 2025-08-24 14:25 | XMS_ITS | Encounter Summary ---
Author Organization [facility] Address [address] [facility] [address] [place] [address] Care Team Providers Care Commercial Floor Covering Installer Name Role Phone Say Low MD Primary Care Provider [phone] Unknown, Notinfile Primary Care Provider Unavail able Say Low MD Primary Care Provider [phone] Encounter Details Date Type Department Care Team (Late st Contact Info) Description 09/08/2016 Orders Only Arrhythmia Center ProviderGiovanni MD [address] [place] [address] Social History Tobacco Use Types Packs/Day Years Used Date Smoking Tobacco: Former Cigarettes Q uit: 10/03/1982 Alcohol Use Standard Drinks/Week Comments No 0 (1 standard drink = 0.6 oz pur e alcohol) Sex and Gender Information Value Date Recorded Sex Assigned at Not on file 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
--- OUTSIDE RECORDS SUMMARY | 2025-08-24 14:25 | XMS_ITS | Encounter Summary ---
Author Organization [facility] Address [address] [address] Care Team Providers Care Insurance Marketing Specialist Name Role Phone Say Low MD Primary Care Provider [phone] Encounter Details Date Type Department Care Team (Late st Contact Info) Description 02/17/2017 Orders Only [facility] ProviderGiovanni MD [address] [place] [address] Social History Tobacco Use Types Packs/Day Years Used Date Smoking Tobacco: Former Cigarettes Q uit: 10/03/1982 Alcohol Use Standard Drinks/Week Comments No 0 (1 standard drink = 0.6 oz pur e alcohol) Sex and Gender Information Value Date Recorded Sex Assigned at Not on file Legal Sex Male 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
--- OUTSIDE RECORDS SUMMARY | 2025-08-24 14:25 | XMS_ITS | Encounter Summary ---
Author Organization [facility] Address [address] [place] [address] Care Team Providers Care Salesforce Trainer Name Role Phone Edgar Geiger MD Unavailable Unavailable Sya Low MD Primary Care Provider [phone] Encounter Details Date Type Department Care Team (Late Contact Info) Description 01/30/2018 Lab Requisition [facility] [address] [place] [phone] Kumar Reno MD RETIRED Social History Tobacco Use Types Packs/Day Years Used Date Smoking Tobacco: Former Comments:QUIT SMOKING 30 YEA RS AGO Alcohol Use Standard Drinks/Week Comments No 0 (1 standard drink = 0.6 oz pur e alcohol) Sex and Gender Information Value Date Recorded Sex Assigned at Not on file 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 Gender Identity Not on file Sexual Orientation Not on file documented as of this encounter Plan of Treatment Upcoming Encounters Date Type Department Care Team (Late Contact Info) Description 09/11/2025 1:40 PM TRANSPLANT CASE MANAGER Office Visit [facility] - Orthopedics [address] [place] [phone] Travis Rodriguez MD [address] [place] [address] OF ORTHOPEDIC [place] [address] documented as of this encounter Procedures Procedure Name Priority Date/Time Associated Diagnosis Comments DERMATOPATHOLOGY Routine 01/27/2018 12:0 0 AM CDT documented in this encounter Results * DERMATOPATHOLOGY (01/27/2018 12:00 AM CDT) Case Report Dermatopathology Report Case: [id number] Authorizing Provider: Kumar Reno MD Collected: 01/27/2018 [...] scapula tip. The specimen consists of a 82o95x84pm, 53d21x0gt excision of skin. The specimen is serially sectioned and a territory account representative section is submitted in cassette [...] characteristic determined by the Dermatopathology Laboratory at [facility]. These tests need not be, and therefore are not, approved by the [place] Food and Drug Administration. The tests are used for clinical purposes. Billing Codes Specimen Charges Stain Charges 71786 1 4:54 PM CDT DERMATOPATHOLOGY LABORATORY Embedded Images 4:54 PM CDT DERMATOPATHOLOGY LABORATORY Pathology/Cytolog y TISSUE SPECIMEN FROM SKIN / Unknown 01/27/2018 01/30/2018 11:34 AM CDT Kumar Reno MD LAB - PATHOLOGY/CYTOLOGY ORD ERABLES Final Result DERMATOPATHOLOGY LABORATORY [facility] - Department of Dermatology [address] [place] [address], 5th Floor Lab [address] [phone] documented in this encounter Visit Diagnoses Not on filedocumented in this encounter Care Teams Salesforce Trainer Relationship Specialty Start Date End Date Say Low MD [address] [place] [address] PCP - General Internal Medicine 08/14/12 Edgar Geiger MD Cardiovascular Disease 08/14/12 documented as of this encounter
--- OUTSIDE RECORDS SUMMARY | 2025-08-24 14:25 | XMS_ITS | Encounter Summary ---
Author Organization [facility] Medical Group Address [address] [facility] [address] [place] [address] Care Team Providers Care Class A Lineman Name Role Phone Say Low MD Primary Care Provider [phone] Unknown, Notinfile Primary Care Provider Unavail able Say Low MD Primary Care Provider [phone] Encounter Details Date Type Department Care Team (Late st Contact Info) Description 09/07/2016 Orders Only [facility] ProviderGiovanni MD [address] [place] [address] Social History Tobacco Use Types Packs/Day Years Used Date Smoking Tobacco: Former Cigarettes Q uit: 10/03/1982 Alcohol Use Standard Drinks/Week Comments No 0 (1 standard drink = 0.6 oz pur e alcohol) Sex and Gender Information Value Date Recorded Sex Assigned at Not on file 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
--- OUTSIDE RECORDS SUMMARY | 2025-08-24 14:25 | XMS_ITS | Clinical Summary ---
Author Organization [facility] Address [address] [place] [address] Care Team Providers Care Fish Trapper Name Role Phone Say Low MD Primary Care Provider [phone] Allergies Active Allergy Reactions Criticality Noted Date [...] 08/15/2025 Assessment & Plan (08/15/2025 4:29 PM STAFF ACCOUNTANT): Paroxysmal atrial fibrillation, rendered asymptomatic by way [...] checks when necessary. The patient has a PAC6UB2-MFMb score of 5 (annualized risk of stroke 6.7%). I have therefore recommended continued anticoagulation for thromboprophylaxis. Because of his anemia, PLAAO/C (Watchman, [employer]) has been suggested, but the patient [...] checks when necessary. The patient has a BAN5TN7-TIEp score of 4 (annualized risk of stroke 4%). I have therefore recommended continued anticoagulation for thromboprophylaxis. NICM (nonischemic cardiomyopathy) 07/19/2024 CAD S/P percutaneous coronary angioplasty 2020 Coronary artery disease (CAD) excluded Hx of CABG 02/22/2020 Coronary artery disease invo lving coronary bypass graft of [place] heart with angina pectoris 02/22/2020 Assessment & [...] at that time. I did check, the [place] wraps are are coming to [facility]. So I think he should be able to get his MRI done. Preoperative cardiovascular examination 05/01/20 19 Assessment & Plan (05/01/2019 11:30 AM CDT): Due to the silent ischemia, CABG in 2003, he needs an aggressive evaluation. Nephrolithiasis 01/04/2019 Overview (01/04/2019): Added automatically from request for surgery [id number] Pacemaker 07/04/2017 Overview (07/04/2017): [employer] DDD Essentio L111 pacemaker implanted on 07/04/17 for Mobitz Ii. Claudia/Ryan Avalos Assessment & Plan (08/15/2025 4:23 PM STAFF ACCOUNTANT): Complete heart block, status post dual-chamber pacemaker. Revision to PINION AND WHEEL TRUER-P after he developed pacing-associated cardiomyopathy. Presently, he [...] HF symptoms attributed to substantial ventricular pacing, PINION AND WHEEL TRUER with BiV pacing is recommended to improve [...] 6:52 PM CDT): Status post pacemaker placement, [employer] device for second-degree AV block Normal [...] Department Care Team Description 08/15/2025 1:45 PM STAFF ACCOUNTANT Office [facility] [address] [place] [phone] Wayne Davis MD Paroxysmal atrial fibrillation (HCC) (Primary Dx); Pacemaker; NICM (nonischemic cardiomyopathy) (HCC) 08/15/2025 1:30 PM STAFF ACCOUNTANT Ancillary Procedure [facility] [address] [place] [phone] Cardiac pacemaker in situ (Primary Dx); NICM (nonischemic cardiomyopathy) (HCC) 06/10/2025 11:00 AM CDT Ancillary Procedure [facility] [address] [place] [phone] Pacemaker (Primary Dx); NICM (nonischemic cardiomyopathy) [...] Hypertension Diabetes mellitus CHF (congestive heart failure) ([facility]) COPD (chronic obstructive pu lmonary disease) Chronic kidney disease Kidney stone Urolithiasis Arthritis Congestive heart failure (CHF) ([facility]) Family History Medical History Relation Name [...] on file Legal Sex Male 8:04 PM STAFF ACCOUNTANT Gender Identity Male 07/10/2021 8:31 AM CDT Sexual Orientation Straight 06/12/2021 8: 44 AM CDT Last Filed Vital Signs Vital Sign Reading Time Taken Comments Blood Pressure 140/89 08/15/2025 2:00 PM STAFF ACCOUNTANT Pulse 60 08/15/2025 2:00 PM STAFF ACCOUNTANT Temperature 37.1 C (98.8 F) 08/15/2024 1:03 PM STAFF ACCOUNTANT Respiratory Rate 26 08/15/2024 5:50 PM STAFF ACCOUNTANT Oxygen Saturation 96% 12/14/2024 11:02 AM CDT Inhaled Oxygen Concentration - - Weight 108.4 kg (239 lb) 08/15/2025 2:00 PM STAFF ACCOUNTANT Height 172.7 cm (5' 8) 08/15/2025 2:00 PM STAFF ACCOUNTANT Body Mass Index 36.34 08/15/2025 2:00 PM STAFF ACCOUNTANT Plan of Treatment Health Maintenance Due Date [...] 08/20/2022 Medical Devices Implanted Type Area Manager Music Device Identifier Shelf Expiration Date Model / Serial / Lot [employer] Tabby Acuity X4 3.9-5.2fr 2.6fr 86cm Otw Quadripolar Long Straight [id number] - [id number] - [id number] Implanted:Qty: 1 on 08/15/2024 by Wayne Davis MD at [facility] Lead [employer] Tabby [id number] 04/28/2026 [id number] / [id number] / Pacemaker-07/04 Implanted:11/2016 (Quantity not on file) Pacemaker Chest Wall [employer] Tabby Pacemaker Single Chamber Welder Boilermaker P Visionist 0.75x4.45x6.17 cm U228 - [id number] - [id number] Implanted:Qty: 1 on 08/15/2024 by Wayne Davis MD at [facility] Pacemaker [employer]by [id number] 06/08/2026 [id number] / [id number] / [employer] [id number] Synergy Xd Monorail 3.5mm 32mm 144cm Delivery System 1 Access - S0 - [id number] Implanted:Qty: 1 on 07/13/2021 by Troy Shipley MD at [facility] Stent [employer] Tabby 03/11/2023 [id number] / 0 / [id number] Description:LAD Explanted Type Area Manager Music Device Identifier Shelf Expiration Date Model / Serial / Lot [employer] [id number] Inlay [place] 6fr 28cm Pusher Fluoro Marker Atraumatic Insertion Latex Free - [id number] Implanted:Qty: 1 on 01/17/2019 by Concetta Thurston MD at [facility] Explanted:Qty: 1 on 01/31/2019 by Elvin Carrillo NP Stent Left: Ureter [employer] [id number] 07/13/2023 [id number] / / [id number] Procedures Procedure Name Priority Date/Time Associated Diagnosis Comments ECG 12-LEAD Routine 08/15/2025 2:00 PM STAFF ACCOUNTANT Paroxysmal atrial fibrillation (HCC) Pacemaker NICM (nonischemic cardiomyopathy) (HCC) DEVICE CHECK - IN OFFICE Routine 08/15/2025 1:57 PM STAFF ACCOUNTANT NICM (nonischemic cardiomyopathy) (HCC) DEVICE CHECK - REMOTE Routine 06/10/2025 9:10 AM CDT NICM (nonischemic cardiomyopathy) (HCC) CT ABDOMEN PELVIS WO CONTRAST Schedule Routine, Read Routine (OP Routine) 09/14/2022 9:43 AM STAFF ACCOUNTANT Nephrolithiasis from Last 3 Months or Most Recently Relevant to Health Maintenance Results * ECG 12 lead (08/15/2025 2:00 PM STAFF ACCOUNTANT) us Wayne Davis MD ECG ORDERABLES Final R esult * DEVICE CHECK - IN OFFICE (08/15/2025 1:57 PM STAFF ACCOUNTANT) Anatomical Region Laterality Modality Other Narrative 08/18/2025 1:41 PM STAFF ACCOUNTANT Table formatting from the original result was not included. BiV PACEMAKER CHECK (IN OFFICE) Patient ID: Drew Newman is a 85 y.o. male. This patient received a [employer] BiV Pacemaker. They had a routine [...] to SOFI Episodes last 90 days/Comments: AF [place] less than 1 %, there were 2 episodes of atrial fibrillation both lasting 1-2 seconds. NORMAL DEVICE FUNCTION PROGRAMMED MEDICATIONS: Anti-coagulant(s): Xarelto 15 mg daily, aspirin 81 mg daily Anti-arrhythmic(s): Coreg 12.5 mg twice daily PLAN: 1) [employer] BiV Pacemaker evaluation 2) [employer] remote transmission scheduled in 3 months. [...] 85 y.o. male. This patient received a [employer] BiV Pacemaker. They had a routine [...] to SOFI Episodes last 90 days/Comments: AF [place] <1 %, longest duration 2 seconds. No new ventricular events NORMAL DEVICE FUNCTION PROGRAMMED MEDICATIONS: Anti-coagulant(s): Aspirin 81 mg, Xarelto 15 mg daily Anti-arrhythmic(s): Coreg 12.5 mg twice a day PLAN: 1) [employer] BiV Pacemaker evaluation 2) [employer] remote transmission scheduled in 3 months. 3) Programming appropriate for device settings Gisela Butler RN us Wayne Davis MD CV CARDIAC SERVICES PRO CEDURES Final Result * CT Abdomen Pelvis WO Contrast (09/14/2022 9:43 AM STAFF ACCOUNTANT) Anatomical Region Laterality Modality Body N/A Computed Tomogra phy 09/15/2022 10:0 0 AM STAFF ACCOUNTANT Narrative 09/15/2022 10:11 AM STAFF ACCOUNTANT EXAM DESCRIPTION: CT ABDOMEN PELVIS WO CONTRAST [...] Findings Committee. J Am Walter Radiol. 2017 May;14(8):1060-9016. THIS IS AN ELECTRONICALLY VERIFIED FINAL REPORT 09/15/2022 10:11 AM - Electronically signed by Ko Haro M.D. AG: JAMES Report ID: [id number] Reading Location: [id number] Procedure Note Ko Haro MD - 09/15/2022 [...] Findings Committee. J Am Walter Radiol. 2017 May;14(8):7273-5592. THIS IS AN ELECTRONICALLY VERIFIED FINAL REPORT 09/15/2022 10:11 AM - Electronically signed by Ko Haro M.D. AG: JAMES Report ID: [id number] Reading Location: [id number] Elvin Carrillo NP IM CT PROCEDURES Final Result from Last 3 Months or Most Recently Relevant to Health Maintenance Insurance MEDICARE [facility] MEDICARE [facility] MEDICARE [facility] MEDICARE SUPPLEMENT Advance Directives For more information, please contact: [phone] Documents on File Type Date Recorded Patient Fur Sewer Expl anation ADVANCE DIRECTIVE 07/04/2017 Advance Di rective Checklist * Full Code (Latest Code Status on File) Date Activated Date Inactivated Comments 07/13/2021 3:49 PM 07/14/2021 2:07 PM Care Teams Fish Trapper Relationship Specialty Start Date End Date Say Low MD PCP - General 02/15/17
--- OUTSIDE RECORDS SUMMARY | 2025-08-24 14:25 | XMS_ITS | Encounter Summary ---
Author Organization [facility] Medical [facility] Address [address] [facility] [address] [place] [address] Care Team Providers Care Merry Go Round Attendant Name Role Phone Say Low MD Primary Care Provider [phone] Unknown, Notinfile Primary Care Provider Unavail able Say Low MD Primary Care Provider [phone] Encounter Details Date Type Department Care Team (Late st Contact Info) Description 10/01/2016 Orders Only Arrhythmia Center Provider, MD Giovanni [address] [place] [address] Social History Tobacco Use Types Packs/Day Years Used Date Smoking Tobacco: Former Cigarettes Q uit: 10/03/1982 Alcohol Use Standard Drinks/Week Comments No 0 (1 standard drink = 0.6 oz pur e alcohol) Sex and Gender Information Value Date Recorded Sex Assigned at Not on file Legal Sex Male 8:04 PM POPULATION HEALTH COACH Gender Identity Male 07/10/2021 8:31 AM [...] on filedocumented in this encounter Care Teams Merry Go Round Attendant Relationship Specialty Start Date End Date Say Low MD PCP - General 10/13/15 02/10/17 Unknown, Notinfile PCP - General 02/11/17 02/14/17 Say Low MD PCP - General 02/15/17 documented as of this encounter
--- OUTSIDE RECORDS SUMMARY | 2025-08-24 14:25 | XMS_ITS | Encounter Summary ---
Author Organization [facility] Address [address] [place] [address] Care Team Providers Care Personnel Adviser Name Role Phone Edgar Geiger MD Unavailable Unavailable Say Low MD Primary Care Provider [phone] Encounter Details Date Type Department Care Team (Late Contact Info) Description 01/12/2018 Lab Requisition [facility] Care D[facility] Lab [address] [place] [phone] Kumar Reno MD RETIRED Social History Tobacco Use Types Packs/Day Years Used Date Smoking Tobacco: Former Comments:QUIT SMOKING 30 YEA RS AGO Alcohol Use Standard Drinks/Week Comments No 0 (1 standard drink = 0.6 oz pur e alcohol) Sex and Gender Information Value Date Recorded Sex Assigned at Not on file Legal Sex Male 5:06 AM CONSULTANT ELECTRONICS Gender Identity Not on file Sexual Orientation Not on file documented as of this encounter Plan of Treatment Upcoming Encounters Date Type Department Care Team (Late Contact Info) Description 09/11/2025 1:40 PM CONSULTANT ELECTRONICS Office Visit [facility] - Orthopedics [address] [place] [phone] Travis Rodriguez MD [address] [place] [address] [place] [address] documented as of this encounter Procedures Procedure Name Priority Date/Time Associated Diagnosis Comments DERMATOPATHOLOGY Routine 01/11/2018 12:0 0 AM CDT documented in this encounter Results * DERMATOPATHOLOGY (01/11/2018 12:00 AM CDT) Case Report Dermatopathology Report Case: [id number] Authorizing Provider: Kumar Reno MD Collected: 01/11/2018 [...] specimen consists of a shave biopsy measuring [id number]. Jar 0. 8 6:41 PM CDT DERMATOPATHOLOGY [...] characteristic determined by the Dermatopathology Laboratory at [facility]. These tests need not be, and therefore are not, approved by the [place] Food and Drug Administration. The tests are used for clinical purposes. Billing Codes Specimen Charges Stain Charges 32122 1 8 6:41 PM CDT DERMATOPATHOLOGY LABORATORY Embedded Images 8 6:41 PM CDT DERMATOPATHOLOGY LABORATORY Pathology/Cytolog y TISSUE SPECIMEN FROM SKIN / Unknown 01/11/2018 01/12/2018 11:39 AM CDT Kumar Reno MD LAB - PATHOLOGY/CYTOLOGY ORD ERABLES Final Result DERMATOPATHOLOGY LABORATORY [facility] - Department of Dermatology [address] [place] [address] 5th Floor Lab B [address] [phone] documented in this encounter Visit Diagnoses Not on filedocumented in this encounter Care Teams Personnel Adviser Relationship Specialty Start Date End Date Say Low MD [address] [place] [phone] PCP - General Internal Medicine 08/14/12 Edgar Geiger MD Cardiovascular Disease 08/14/12 documented as of this encounter
--- OUTSIDE RECORDS SUMMARY | 2025-08-24 14:25 | XMS_ITS | Clinical Summary ---
Author Organization [facility] Address [address] [place] [address] Care Team Providers Care Commercial Escrow Assistant Name Role Phone Edgar Geiger MD Unavailable Unavailable Say Low MD Primary Care Provider [phone] Source Comments [facility],non-owned Affiliates and Associated Physician Practices is amultiple site organization consisting of ambulatory clinics and hospital sitesin [place], [place], [place] and [place]. This disclosure is being madepursuant to the Care Everywhere program and may not contain all information available regarding this patient. Last updated 18.[facility] Allergies No known active allergies Medications * Be aware that medications may not be up to date on this document. Alwaysverify current medications with the patient. omeprazole (PRILOSEC OTC) 20 MG tablet Take 20 mg by mouth daily before breakfast. Active metFORMIN (GLUCOPHAGE) 1000 MG tablet Take 1,000 mg by mouth 2 times daily with morning and evening meal. Active [place]-3 Fatty Acids (TH OMEGA-3 FISH OIL) 1000 [...] on file Legal Sex Male 5:06 AM AUTO BODY MAN Gender Identity Not on file Sexual Orientation [...] 03/12/2015 1:18 PM CDT Plan of Treatment Upcoming Encounters Date Type Department Care Team (Late st Contact Info) Description 09/11/2025 1:40 PM AUTO BODY MAN Office Visit [facility] - Orthopedics [address] [place] [address], [place] [address] Travis Rodriguez MD [address] [place] [address] [place] [address] Health Maintenance Due Date Last Done Comments MEDICARE AWV 12 MONTHS 1942 DTAP/TDAP/TD VACCINES (1 - Tdap) 1961 PNEUMOCOCCAL VACCINE 50+ (1 of 1 - PCV) 1992 ZOSTER VACCINE (1 of 2) 1992 Respiratory Syncytial Virus (RSV) Vaccine Pt: or over 60 yrs (1 - 1-dose 75+ series) 2017 DEPRESSION SCREENING 10/03/2024 COVID-19 VACCINE (2024-2 6 season) 2025 INFLUENZA VACCINE (#1) 2025 HEPATITIS [...] age to complete this topic Insurance [facility] NO INSURANCE Member Subscriber Plan / Payer (Ef fective for All Dates) Name:Drew Newman Member ID:Not on file Relation to Subscriber:Not on file Name:DREW NEWMAN Subscriber ID:Not on file (Home) Address: [address] [place] [address] Payer ID:Not on file Group ID:Not on file Type:Self Pay Address: [place], [place] MEDICARE Care Teams Commercial Escrow Assistant Relationship Specialty Start Date End Date Say Low MD [address] [place] [address] PCP - General Internal Medicine 08/14/12 Edgar Geiger MD Cardiovascular Disease 08/14/12
--- OUTSIDE RECORDS SUMMARY | 2025-08-24 14:25 | XMS_ITS | Clinical Summary ---
Author Organization [facility] Address [address] [place] [address] Phone Care Team Providers Care Orchard Pruner Name Role Phone Say Low MD Primary Care Provider [phone] Allergies No known active allergies Medications allopurinol [...] at that time. I did check, the [place] wraps are are coming to [facility]. So I think he should be able to get his MRI done. 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
[2025-08-24 14:27] LABS: Hematocrit 43.4 % (42.0-52.0); Hemoglobin 13.7 g/dL (14.0-18.0); Immature Granulocyte Percent A 0.4 % (0-0.5); Lymphocytes Absolute Auto 1.42 K/mm3 (0.9-3.2); Mean Corpuscular HGB Conc 31.6 g/dl (32-36); Mean Corpuscular Hemoglobin 32.2 pg (26-34); Mean Corpuscular Volume 101.9 fl (80-100); Nucleated Red Blood Cells Absolute Auto 0.000 K/mm3 (0.0-0.012); Nucleated Red Blood Cells Perc 0.0 % (0.0-0.2); Platelet Count Result 222 k/mm3 (150-375); Red Blood Count 4.26 M/mm3 (4.6-6.20); White Blood Count 7.2 K/mm3 (4.5-10.0)
[2025-08-24 14:42] LABS: Alanine Aminotransferase 26 U/L (6-50); Albumin Level 4.4 g/dL (3.5-5.1); Alkaline Phosphatase 79 U/L (38-126); Anion Gap 9 mmol/L (4-12); Aspartate Amino Transferase 38 U/L (17-59); Bilirubin,Total 0.9 mg/dL (0.2-1.3); Blood Urea Nitrogen 31 mg/dL (9-20); Calcium 9.2 mg/dL (8.4-10.2); Carbon Dioxide 26 mmol/L (22-30); Chloride 105 mmol/L (98-107); Estimated CRCL calculation 38 ml/min; Estimated Glomerular Filt Rate 41; Glucose 112 mg/dL (65-110); Lipase 72 U/L (23-300); Potassium 4.8 mmol/L (3.4-5.0); Sodium 140 mmol/L (137-145); Total Protein 7.3 g/dL (6.3-8.2)
[2025-08-24 14:49] LABS: NT Pro B Type Natriuretic Pept 1310 pg/mL (19.9-100); Troponin I 0.028 ng/mL (0.000-0.034)
[2025-08-24 14:57] LABS: INR 1.7; Partial Thromboplastin Time 38.2 Seconds (22.3-36.8); Prothrombin Time 20.0 Seconds (11.1-14.7)
[2025-08-24] MEDS: HYDROcodone/acetaminophen (*CRX) 5-325 MG TABLET 1 TAB PO (16:45)
--- NOTE | 2025-08-24 17:27 | ECG_ITS ---
Test Date: 2025-08-24 17:32:24 Measurements Intervals [place] Rate: 66 P: 0 NV: 104 QRS: 159 QRSD: 206 T: 2 QT: 491 QTc: 514 Interpretive Statements ELECTRONIC ATRIAL PACEMAKER ELECTRONIC VENTRICULAR PACEMAKER ABNORMAL RHYTHM ECG Compared to ECG 08/24/2025 14:08:45 No significant changes Electronically Signed On 08-24-2025 22:55:[address] [place] by Michelle Lutz M.D.
[2025-08-24 17:52] LABS: Troponin I 0.028 ng/mL (0.000-0.034)
== END 2025-08-24 18:24 | disposition home or self-care (01) ==
PROVIDERS: Emergency Medicine; Emergency Provider Physician Assistant; PCP Internal Medicine
DX: R07.9 Chest pain, unspecified (principal); I11.0 Hypertensive heart disease with heart failure; I50.9 Heart failure, unspecified; I25.10 Atherosclerotic heart disease of native coronary artery without angina pectoris; E11.9 Type 2 diabetes mellitus without complications; E78.2 Mixed hyperlipidemia; J84.9 Interstitial pulmonary disease, unspecified; G47.33 Obstructive sleep apnea (adult) (pediatric); K74.60 Unspecified cirrhosis of liver; K21.9 Gastro-esophageal reflux disease without esophagitis; N40.0 Benign prostatic hyperplasia without lower urinary tract symptoms; M17.9 Osteoarthritis of knee, unspecified; M10.9 Gout, unspecified; D64.9 Anemia, unspecified; Z95.1 Presence of aortocoronary bypass graft; Z96.651 Presence of right artificial knee joint; Z95.0 Presence of cardiac pacemaker; Z87.440 Personal history of urinary (tract) infections; Z87.01 Personal history of pneumonia (recurrent); Z87.442 Personal history of urinary calculi; Z86.16 Personal history of COVID-19; Z86.0100 Personal history of colon polyps, unspecified; Z87.891 Personal history of nicotine dependence; Z79.01 Long term (current) use of anticoagulants; Z79.899 Other long term (current) drug therapy; Z79.82 Long term (current) use of aspirin; Z79.84 Long term (current) use of oral hypoglycemic drugs
CPT/HCPCS: 36415; 71046; 80053; 83690; 83880; 84484; 85025; 85380; 85610; 85730; 93005; 99284; A9270